=== PATIENT | female | born 1990 | race Caucasian/White ===

== ENCOUNTER 2018-07-24 17:39 | Emergency (ER) | payer MEDICAID, SELFPAY ==
[2018-07-24 17:40] VITALS: BP 114/89; PULSE 100; RESP 16; TEMP 36.6; O2SAT 100; BMI 30.7
--- NOTE | 2018-07-24 17:56 | ED.DCSUM_ITS ---
- ER Visit Summary Date of Service: 07/24/18 Chief Complaint: Abdominal pain History of Present Illness: The patient is a 28 F gradual onset of lower abdominal pain over the past 2-3 days. She describes it as sharp in nature. She states that she has taken 6 home test at home during that time and all were positive. She did have a tubal ligation last year. She reports her last menstrual cycle was early June. She does report nausea and vomiting with eating. She has had some mild diarrhea. She reports urinary frequency but no dysuria. She denies fever or chills. Physical Examination: Vital signs are unremarkable. Patient sitting upright in bed no acute distress. Head neck examination unremarkable. Heart is regular rate and rhythm. Lung sounds are clear. Abdomen is soft with mild lower abdominal tenderness, both right and left lower quadrants. There is no guarding or rebound. Active bowel sounds are noted Test Results: CBC and chemistry studies are normal. Urinalysis is normal. test is negative. Emergency Department Course and Treatment: Patient was given IV fluids, morphine, Zofran. On repeat evaluation she is resting comfortably. Test results were discussed with patient. I did review the surgery note and her fallopian tubes were removed and sent to pathology. I advised her that her home tests were false results. My suspicion is that she has viral gas troenteritis with lower abdominal pain, diarrhea, nausea with vomiting. She will be treated with Zofran and Bentyl. Treatment Plan: [] Disposition: Discharge Impression: Viral gastroenteritis This note was generated with [employer] dictation software. It may contain incorrect words, spelling, and punctuation that were not noted in review of the chart prior to signing ED Disposition - Plan for ED Patient: Chief Complaint: Abd Pain Referrals: Emerson Stapleton PA [PHYSICIAN SUPER[employer]OR [employer]] -
[2018-07-24 18:01] LABS: Mucous, Urine 0 SEEN /hpf (<or=2+); Red Blood Cells-Urine 0 SEEN /hpf (0-5)
[2018-07-24] MEDS: Morphine 4 MG/ML Syringe IV (18:09)
[2018-07-24] MEDS: Ondansetron 4 MG/2 ML Vial IV (18:09)
[2018-07-24] MEDS: 0.9% Normal Saline 1,000 ML 150 ML IV (18:09)
[2018-07-24 18:14] LABS: Color, Urine Yellow (Yellow); Glucose, Dipstick Normal (Normal); Ketone-Dipstick Negative (Negative); Leukocyte Esterase-Dipstick 100 /ul (Negative); Nitrite-Dipstick Negative (Negative); Occult Blood-Urine Negative /ul (Negative); Protein-Dipstick Negative (Negative); Urine Bilirubin Dipstick Negative (Negative); Urine Clarity Clear (Clear); Urine Urobilinogen Normal (Normal)
[2018-07-24 18:26] LABS: Bacteria 2+ /hpf (None Seen); Squamous Epithelial Cells - UA 10-25 SEEN /hpf (5-10); White Blood Cells 0-5 SEEN /hpf (0-5)
[2018-07-24 18:33] LABS: Anion Gap 6 (5-15); BUN 21 mg/dL (7-18); BUN/Creat Ratio 28.5 RATIO (10-20); Calcium,Total 8.3 mg/dL (8.5-10.1); Chloride 106 mmol/L (98-107); Creatinine, Serum 0.74 mg/dL (0.55-1.02); EST Glomerular Filtration Rate 100 mL/min (>60); Est Glom Filt Rate - Afr Amer 121 mL/min (>60); Estimated Creatinine Clearance 102.76 ml/min; Glucose 84 mg/dL (74-106); Potassium 3.8 mmol/L (3.5-5.1); Sodium Level 139 mmol/L (136-145)
[2018-07-24 18:49] LABS: Pregnancy, Serum, hCG Quali. NEGATIVE Negative (0-9 Nonpreg)
[2018-07-24 18:52] LABS: Absolute Lymphocyte Count 2.98 X10^3/ul (0.83-4.51); Absolute Neutrophil Count 5.5 X10^3/uL (2.0-7.7); Basophil# 0.04 X10^3/uL; Basophil% 0.4 % (0-1); Differential Indicated SCAN CRITERIA MET; Eosinophil# 0.28 X10^3/uL; Hematocrit 40.2 % (37-47); Hemoglobin 13.4 g/dl (12.0-15.0); Lymphocyte # 2.98 X10^3/ul (4.0); Lymphocyte % 31.5 % (19-41); Mean Corp Hgb Conc 33.3 g/gl (32-36); Mean Corpuscular Hgb 29.7 pg (27.0-32.0); Mean Corpuscular Volume 89.1 fL (81-99); Mean Platelet Vol. 9.3 fl (6.2-12.0); Monocyte% 6.3 % (0-10); Neutrophil # 5.45 X10^3/uL (2.7-7.7); Neutrophil % 57.5 % (47-70); POSITIVE COUNT NO; POSITIVE DIFFERENTIAL NO; POSITIVE MORPHOLOGY YES; Platelet Count 291 K/mm3 (150-450); RBC Distribution Width CV 14.2 % (11.6-14.6); RBC Distribution Width SD 46.4 fl (35.1-43.9); Red Blood Count 4.51 M/mm3 (4.2-5.4); White Blood Count 9.5 K/mm3 (4.4-11.0)
[2018-07-24 19:28] LABS: Differential Comment SCANNED
--- NOTE | 2018-07-24 20:02 | ED.DEP ---
ED Disposition - Plan for ED Patient: Disposition: Home or Assisted Living Chief Complaint: Abd Pain Instructions: ED Gastroenteritis Viral Prescriptions: Ondansetron [Zofran Odt] 4 mg PO Q8H PRN PRN #10 tablet PRN Reason: Nausea Dicyclomine HCl [Bentyl] 20 mg PO TIDAC PRN #20 capsule PRN Reason: Cramp Referrals: Kayley Bland DO [Primary Care Provider] - 1 Week
[2018-07-24 20:13] VITALS: BP 107/85; PULSE 74; RESP 15; O2SAT 95
--- NOTE | 2018-07-24 20:14 | ED.RN ---
PT GIVEN WRITTEN AND VERBAL DISCHARGE INSTRUCTIONS AND HOME GOING PRESCRIPTIONS. PT ASKS FOR PAIN MEDICATION AT HOME. PT EDUCATED ON [facility] HOME SCRIPT AND VERBALIZES UNDERSTANDING. IV D/C AND COVERED WITH 2X2 GAUZE AND PAPER TAPE. PT DRESSES SELF AND AMBULATES OUT OF DEPT WITH ASSISTANCE NEEDED FROM STAFF.
== END 2018-07-24 20:15 | disposition home or self-care (01) ==
PROVIDERS: Emergency Provider Emergency Medicine
DX: A08.4 Viral intestinal infection, unspecified (principal); Z72.0 Tobacco use
CPT/HCPCS: 80048; 81001; 84703; 85025; 96361; 96374; 96375; 99283; J7030; J2405

== ENCOUNTER 2018-08-07 22:42 | Emergency (ER) | payer MEDICAID, SELFPAY ==
[2018-08-07 22:43] VITALS: BP 109/64; PULSE 79; RESP 16; TEMP 36.1; O2SAT 97; BMI 31.6
--- NOTE | 2018-08-07 23:58 | ED.VIS.GEN ---
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 Location: chest. Current Severity: Moderate Maximum Severity: Moderate Worsened by: coughing Relieved by: rest Associated Symptoms: wheezing, ST. no fevers, neck stiffness, neuro sx, confusion. Narrative: No known sick contacts. No history of asthma that she knows of. Is a smoker. - Past Medical History (1) Depression Status: Chronic Past Medical History - Allergies and Home Meds Allergies/Adverse Reactions: Allergies Penicillins Allergy (Verified 08/07/18 22:45) Hives Sulfa (Sulfonamide Antibiotics) Allergy (Verified 08/07/18 22:45) Hives Primary Care Physician: Kayley Bland DO [Primary Care Provider] - Surgical History: tonsillectomy Smoking Status: Current every day smoker Review of Systems General: Denies: Chills, Fever Eyes: Denies: Visual changes - bilaterally, Diplopia ENT: Reports: Bilateral ear pain, Rhinorrhea, Sore throat Cardiovascular: Denies: Chest pain, Palpitations, Heart racing Respiratory: Reports: Dyspnea, Cough. Denies: Sputum Gastrointestinal: Reports: Nausea. Denies: Abdominal pain, Vomiting, Diarrhea Physical Exam Vital Signs/Narrative: Vital Signs Temp Pulse Resp BP Pulse Ox 08/07/18 22:43 96.9 F L 79 16 109/64 97 Inital Vital Signs reviewed: Yes General: Well nourished, Well developed Head: Normocephalic, Atraumatic Eyes: Perrl, EOMI ENT: Moist mucous membranes, No rhinorrhea, TM's clear, Nasal congestion, - - POP clear w/o erythema, asymmetry, exudate. Negative for: Sinus tenderness Neck: Supple, Nontender, No lymphadenopathy Cardiovascular: Regular rate, Regular rhythm, No murmurs Respiratory: No distress, Chest nontender, Wheezing - expiratory, mild Abdomen: Soft, Nontender, Nondistended, Normal bowel sounds Skin: Normal color, No rash Neurological: Alert, Oriented x3, Cranial nerves II-XII grossly intact, Normal Strength, Normal Sensation Psychological: Normal affect Diagnostic/Tx/Re-eval Clinical Impression(s) from Imaging Studies Chest X-Ray 08/08/18 00:00 IMPRESSION: Normal x-ray examination of the chest. Electronically Signed: Marylu Suh MD at 0:57 EDT , Service support , - Medical Decision Making Patient improved after doing nebulizer treatment. She is in no respiratory distress and her vital signs are normal. Chest x-ray is normal. No signs of pneumonia or reason/indication for antibiotics. Consistent with bronchitis, likely viral in etiology. Supportive care advised. Given prescriptions for cough medication, which was given here, in addition to albuterol inhaler. Advised to follow-up and to limit smoking. ED Disposition - Plan for ED Patient: Disposition: Home or Assisted Living Chief Complaint: Cough Diagnosis: Acute wheezy bronchitis Instructions: Acute Bronchitis Prescriptions: Albuterol Inhaler [Ventolin Hfa] 2 puff INHALATION Q4H PRN PRN #1 inhaler PRN Reason: Wheezing Benzonatate [Tessalon Perle] 200 mg PO TID PRN PRN #20 capsule PRN Reason: Cough Referrals: Kayley Bland DO [Primary Care Provider] - 1 Week if not improving
--- NOTE | 2018-08-08 | RAD_ITS ---
STUDY: X-RAY CHEST REASON FOR EXAM: Female, 28 years old. Cough TECHNIQUE: PA and lateral views of the chest. COMPARISON: None. FINDINGS: The lungs are clear and expanded. There is no demonstrated pleural abnormality. Normal size heart. Normal mediastinum and evi. Normal visualized pulmonary arteries. Normal visualized aortic arch and descending thoracic aorta. Normal visualized thoracic spine. Normal visualized ribs, clavicles, and shoulders. There is no demonstrated abnormality of the visualized soft tissue structures of the upper abdomen. RAD/Chest PA and Lateral IMPRESSION: Normal x-ray examination of the chest. Electronically Signed: Marylu Suh MD at 0:57 EDT , Service support ,
--- NOTE | 2018-08-08 00:01 | ED.DCSUM_ITS ---
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 Location: chest. Current Severity: Moderate Maximum Severity: Moderate Worsened by: coughing Relieved by: rest Associated Symptoms: wheezing, ST. no fevers, neck stiffness, neuro sx, confusion. Narrative: No known sick contacts. No history of asthma that she knows of. Is a smoker. - Past Medical History (1) Depression Status: Chronic Past Medical History - Allergies and Home Meds Allergies/Adverse Reactions: Allergies Penicillins Allergy (Verified 08/07/18 22:45) Hives Sulfa (Sulfonamide Antibiotics) Allergy (Verified 08/07/18 22:45) Hives Primary Care Physician: Kayley Bland DO [Primary Care Provider] - Surgical History: tonsillectomy Smoking Status: Current every day smoker Review of Systems General: Denies: Chills, Fever Eyes: Denies: Visual changes - bilaterally, Diplopia ENT: Reports: Bilateral ear pain, Rhinorrhea, Sore throat Cardiovascular: Denies: Chest pain, Palpitations, Heart racing Respiratory: Reports: Dyspnea, Cough. Denies: Sputum Gastrointestinal: Reports: Nausea. Denies: Abdominal pain, Vomiting, Diarrhea Physical Exam Vital Signs/Narrative: Vital Signs Temp Pulse Resp BP Pulse Ox 08/07/18 22:43 96.9 F L 79 16 109/64 97 Inital Vital Signs reviewed: Yes General: Well nourished, Well developed Head: Normocephalic, Atraumatic Eyes: Perrl, EOMI ENT: Moist mucous membranes, No rhinorrhea, TM's clear, Nasal congestion, - - POP clear w/o erythema, asymmetry, exudate. Negative for: Sinus tenderness Neck: Supple, Nontender, No lymphadenopathy Cardiovascular: Regular rate, Regular rhythm, No murmurs Respiratory: No distress, Chest nontender, Wheezing - expiratory, mild Abdomen: Soft, Nontender, Nondistended, Normal bowel sounds Skin: Normal color, No rash Neurological: Alert, Oriented x3, Cranial nerves II-XII grossly intact, Normal Strength, Normal Sensation Psychological: Normal affect Diagnostic/Tx/Re-eval Clinical Impression(s) from Imaging Studies Chest X-Ray 08/08/18 00:00 IMPRESSION: Normal x-ray examination of the chest. Electronically Signed: Marylu Suh MD at 0:57 EDT , Service support , - Medical Decision Making Patient improved after doing nebulizer treatment. She is in no respiratory distress and her vital signs are normal. Chest x-ray is normal. No signs of pneumonia or reason/indication for antibiotics. Consistent with bronchitis, likely viral in etiology. Supportive care advised. Given prescriptions for cough medication, which was given here, in addition to albuterol inhaler. Advised to follow-up and to limit smoking. ED Disposition - Plan for ED Patient: Disposition: Home or Assisted Living Chief Complaint: Cough Diagnosis: Acute wheezy bronchitis Instructions: Acute Bronchitis Prescriptions: Albuterol Inhaler [Ventolin Hfa] 2 puff INHALATION Q4H PRN PRN #1 inhaler PRN Reason: Wheezing Benzonatate [Tessalon Perle] 200 mg PO TID PRN PRN #20 capsule PRN Reason: Cough Referrals: Kayley Bland DO [Primary Care Provider] - 1 Week if not improving
[2018-08-08] MEDS: Naproxen 250 MG Tablet 500 MG PO (00:06)
[2018-08-08] MEDS: guaiFENesin 10 ML UDC (200MG/10ML) PO (00:07)
[2018-08-08] MEDS: Ondansetron ODT 4 MG Tablet 8 MG PO (00:07)
[2018-08-08] MEDS: Ipratropium/Albuterol Sulfate 3 ML AMPUL.NEB INHALATION (00:08)
[2018-08-08 00:10] VITALS: PULSE 85; RESP 16; O2SAT 99
[2018-08-08 01:52] VITALS: BP 103/46; PULSE 72; RESP 16; O2SAT 96
--- NOTE | 2018-08-08 13:52 | CM.ED ---
ED CALLBACK: Follow-up call placed to patient with no answer. Voicemail left with return contact information.
== END 2018-08-08 01:53 | disposition home or self-care (01) ==
PROVIDERS: Emergency Provider Emergency Medicine
DX: J20.9 Acute bronchitis, unspecified (principal); F17.200 Nicotine dependence, unspecified, uncomplicated
CPT/HCPCS: 71046; 94640; 99283

== ENCOUNTER 2018-10-18 13:35 | Emergency (ER) | payer MEDICAID, SELFPAY ==
[2018-10-18 13:37] VITALS: BP 84/60; PULSE 137; RESP 18; TEMP 37.2; O2SAT 98; BMI 29.5
[2018-10-18] MEDS: Dicyclomine 20 MG/2 ML Vial IM (14:39)
[2018-10-18] MEDS: Ondansetron 4 MG/2 ML Vial IV ×2 (14:39→15:59)
[2018-10-18 14:42] LABS: Absolute Lymphocyte Count 0.49 X10^3/ul (0.83-4.51); Absolute Neutrophil Count 8.5 X10^3/uL (2.0-7.7); Differential Indicated SCAN CRITERIA MET; Eosinophil# 0.04 X10^3/uL; Eosinophils% 0.4 % (0-5); Hematocrit 44.2 % (37-47); Hemoglobin 14.6 g/dl (12.0-15.0); Lymphocyte # 0.49 X10^3/ul (4.0); Lymphocyte % 5.1 % (19-41); Mean Corpuscular Hgb 29.6 pg (27.0-32.0); Mean Corpuscular Volume 89.5 fL (81-99); Monocyte# 0.46 X10^3/uL; Monocyte% 4.8 % (0-10); Neutrophil # 8.53 X10^3/uL (2.7-7.7); Neutrophil % 89.6 % (47-70); POSITIVE COUNT NO; POSITIVE DIFFERENTIAL NO; POSITIVE MORPHOLOGY YES; Platelet Count 251 K/mm3 (150-450); RBC Distribution Width CV 14.4 % (11.6-14.6); RBC Distribution Width SD 46.9 fl (35.1-43.9); Red Blood Count 4.94 M/mm3 (4.2-5.4); White Blood Count 9.5 K/mm3 (4.4-11.0)
[2018-10-18 14:54] LABS: AST(SGOT) 13 U/L (15-37); Alanine Aminotransfer ALT/SGPT 23 U/L (13-56); Albumin, Serum 3.5 g/dL (3.2-5.0); Alkaline Phosphatase 100 U/L (45-117); Anion Gap 6 (5-15); BUN 15 mg/dL (7-18); BUN/Creat Ratio 20.4 RATIO (10-20); Calcium,Total 8.3 mg/dL (8.5-10.1); Chloride 107 mmol/L (98-107); Creatinine, Serum 0.73 mg/dL (0.55-1.02); EST Glomerular Filtration Rate 101 mL/min (>60); Est Glom Filt Rate - Afr Amer 122 mL/min (>60); Estimated Creatinine Clearance 104.16 ml/min; Globulin 3.4 g/dL (2.2-4.2); Glucose 87 mg/dL (74-106); Protein, Total 6.9 g/dL (6.4-8.2); Sodium Level 140 mmol/L (136-145)
[2018-10-18 14:54] LABS: Bacteria 0 SEEN /hpf (None Seen); Mucous, Urine 0 SEEN /hpf (<or=2+); Red Blood Cells-Urine 0 SEEN /hpf (0-5); White Blood Cells 0 SEEN /hpf (0-5)
[2018-10-18 14:57] LABS: Differential Comment SCANNED
[2018-10-18 15:15] LABS: Color, Urine Yellow (Yellow); Glucose, Dipstick Normal (Normal); Ketone-Dipstick Negative (Negative); Leukocyte Esterase-Dipstick 25 /ul (Negative); Nitrite-Dipstick Negative (Negative); Occult Blood-Urine Negative /ul (Negative); Protein-Dipstick 15 mg/dl (Negative); Urine Bilirubin Dipstick Negative (Negative); Urine Clarity Clear (Clear); Urine Urobilinogen 1 mg/dl (Normal)
[2018-10-18 15:32] LABS: Squamous Epithelial Cells - UA 0-5 SEEN /hpf (5-10)
--- NOTE | 2018-10-18 15:34 | CT_ITS ---
STUDY: CT ABDOMEN AND PELVIS WITHOUT CONTRAST REASON FOR EXAM: Female, 28 years old. RADIATION DOSAGE (If Supplied By Facility): CTDIvol = ( 9.02 ) mGy, DLP = ( 498.18 ) mGycm TECHNIQUE: Transaxial images were obtained from the dome of the diaphragm to the symphysis pubis without oral contrast, and without intravenous contrast. Sagittal and coronal images were reconstructed. Individualized dose optimization techniques were used for this CT. COMPARISON: None. FINDINGS: The visualized lung bases are unremarkable. The visualized portions of the heart are within normal limits. Normal liver. Normal gallbladder and extrahepatic biliary system. Normal spleen. Normal pancreas. Normal bilateral adrenal glands. Normal right kidney measures 10.3 cm in its craniocaudad diameter with a faint 0.8 x 0.4 cm calculus within the inferior calyx.. Normal left kidney measures 10.6 cm in its craniocaudad dimension. No evidence of calculus seen on the left side. No hydronephrosis noted. In the pelvis there are multiple calcifications, the one on the right side although it could represent ureteral calculus but this was present in the study of 16 November 2017. Please correlate clinically and with urine analysis Normal visualized stomach. Normal small intestine. Normal colon. The appendix is visualized and appears normal. Normal abdominal aorta. Normal inferior vena cava. Normal retroperitoneum. Normal urinary bladder. Normal abdominal wall. Normal osseous structures. CT/Abdomen/Pelvis without Cont IMPRESSION: Negative study except for tiny calcification right side of the pelvic cavity that was seen in October 2017 0.8 still could represent tiny ureteral calculus please see the discussion above. Small right renal calculus within the inferior calyx Electronically Signed: Kimmie Valencia, at 16:24 EST Tel , Service support ,
[2018-10-18 15:36] LABS: Pregnancy, Serum, hCG Quali. NEGATIVE Negative (0-9 Nonpreg)
[2018-10-18] MEDS: Morphine 4 MG/ML Syringe IV (15:59)
[2018-10-18 16:02] VITALS: BP 115/74; PULSE 90; RESP 16; O2SAT 98
--- NOTE | 2018-10-18 16:04 | ED.DCSUM_ITS ---
- ER Visit Summary Date of Service: 10/18/18 Chief Complaint: [Abdominal pain History of Present Illness: The patient is a 28 F [presents to the emergency department with complaint of abdominal pain started around midnight. Patient had 3 episodes of vomiting with some blood in it. Patient also had about 8 watery stools. Patient complains of pain to the right side of the abdomen. Patient does not think she is .] She denies urinary symptoms. Patient denies any fever although subjectively she states she thinks she may have had one. Physical Examination: [HEENT-PERRLA, EOMI. Cranial nerves II through XII grossly intact. TMs clear. Mucous membranes moist. No adenopathy. Cardiovascular-regular rate and rhythm without murmur or ectopy Lungs-clear to auscultation, chest wall stable without crepitus or subcu emphysema Abdomen-normoactive bowel sounds, soft. Patient has diffuse tenderness palpation but does seem to localize to the right lower quadrant with some guarding. There is no rebound, rigidity, or perineal signs. Extremities-intact ?4, normal range of motion, normal pulses, atraumatic] Test Results: [CBC with differential obtained showed a white blood cell count of 9.5, hemoglobin 14.6, hematocrit 44, placed 251. Chemistries unremarkable. Urinalysis was normal. HCG was negative.] Emergency Department Course and Treatment: [Patient initially was given a liter normal same fluid bolus as well as Zofran and Bentyl. Patient continued to complain of pain and was given 4 mg of morphine and 4 mill grams of Zofran. Patient had a CT scan of the abdomen pelvis ordered without contrast this patient states that she is allergic to contrast.] Treatment Plan: [Care of patient turned over to evening physician awaiting official CT results] Disposition: [Pending] Impression: [Abdominal pain Gastroenteritis] This note was generated with [employer] dictation software. It may contain incorrect words, spelling, and punctuation that were not noted in review of the chart prior to signing ED Disposition - Plan for ED Patient: Chief Complaint: Abd Pain Referrals: Kayley Bland DO [Primary Care Provider] -
--- NOTE | 2018-10-18 16:05 | ED.DEP ---
ED Disposition - Plan for ED Patient: Chief Complaint: Abd Pain Instructions: ED Abdominal Pain Unkn Cause, ED Gastroenteritis Viral Prescriptions: Ondansetron [Zofran Odt] 4 mg PO Q8H PRN PRN #10 tab PRN Reason: Nausea Dicyclomine HCl [Bentyl] 20 mg PO TIDAC #20 cap Referrals: Kayley Bland DO [Primary Care Provider] - 3-5 Days
[2018-10-18 16:32] VITALS: BP 104/61; PULSE 93; RESP 16; O2SAT 98
[2018-10-18 16:34] VITALS: BP 104/61; PULSE 93; RESP 16; O2SAT 100
== END 2018-10-18 16:35 | disposition home or self-care (01) ==
PROVIDERS: Emergency Provider Emergency Medicine
DX: A08.4 Viral intestinal infection, unspecified (principal); N20.0 Calculus of kidney; Z72.0 Tobacco use
CPT/HCPCS: 74176; 80053; 81001; 84703; 85025; 96361; 96372; 96374; 96375; 96376; 99283; J7030; J2405

== ENCOUNTER 2019-03-13 20:38 | Emergency (ER) | payer SELFPAY ==
[2019-03-13 20:39] VITALS: BP 110/65; PULSE 115; RESP 18; TEMP 36.5; O2SAT 96; BMI 28.3
--- NOTE | 2019-03-13 21:10 | RAD_ITS ---
STUDY: X-RAY - LEFT FOOT CLINICAL: Female, 29 years old. Pain TECHNIQUE: 3 view(s) of the foot. COMPARISON: None. FINDINGS: There is no evidence of fracture or dislocation. There are no significant degenerative changes. There are no radiodense foreign bodies. RAD/Foot min 3 Views IMPRESSION: No fracture or dislocation. Electronically Signed: Dorian George, at 21:36 EDT Tel , Service support ,
--- NOTE | 2019-03-13 21:52 | ED.VISSUMM ---
- ER Visit Summary Date of Service: 03/13/19 Chief Complaint: Left foot pain after accidentally kicking a couch History of Present Illness: The patient is a 29 F history of back pain and depression. Was running around the house and actually kicked her couch about 5 hours ago. Complaining of pain to the fifth or small toe metatarsal. No prior history of a foot fracture or surgery to her foot. No other injuries. Physical Examination: Vital signs stable afebrile. HEENT exam unremarkable atraumatic. Neck nontender. Lungs clear to auscultation. Heart regular rhythm no murmur. Chest nontender. Abdomen soft nontender. Remedies moves all 4. Neurovascular intact. Left hip, knee and ankle are nontender normal range of motion no deformity. No swelling. Left foot pain on palpation to the left fifth or small toe metatarsal just proximal to the MTP joint. No gross bony deformity. Skin intact. No bruising. Foot is neurovascular intact. Other extremities unremarkable. Neurologic exam normal. Test Results: Left foot x-ray 3 views read by myself and the radiologist shows no fracture or dislocation. Emergency Department Course and Treatment: Repeat exam doing well at 2153. Treatment Plan: Ice the foot. Elevate. Motrin for pain. Follow-up if not improving. Disposition: Discharge Impression: Left foot contusion This note was generated with [employer] dictation software. It may contain incorrect words, spelling, and punctuation that were not noted in review of the chart prior to signing ED Disposition - Plan for ED Patient: Referrals: Kayley Bland DO [Primary Care Provider] -
--- NOTE | 2019-03-13 21:54 | ED.DEP ---
ED Disposition - Plan for ED Patient: Disposition: Home or Assisted Living Instructions: ED Contusion Lower Ext Referrals: Kayley Bland DO [Primary Care Provider] - 1 Week if not improving Additional Instructions: Ice and elevate left foot. Motrin for pain and swelling. Follow-up with not improving after 1 week. The x-rays today showed no broken bones or any dislocations.
[2019-03-13] MEDS: Ibuprofen 600 MG Tablet PO (21:59)
== END 2019-03-13 22:00 | disposition home or self-care (01) ==
PROVIDERS: Emergency Provider Emergency Medicine
DX: S90.32XA Contusion of left foot, initial encounter (principal); W22.09XA Striking against other stationary object, initial encounter; Y93.02 Activity, running; Y92.009 Unspecified place in unspecified non-institutional (private) residence as the place of occurrence of the external cause; Z72.0 Tobacco use
CPT/HCPCS: 73630; 99283

== ENCOUNTER 2019-07-12 20:39 | Emergency (ER) | payer SELFPAY ==
[2019-07-12 20:40] VITALS: BP 116/85; PULSE 97; RESP 16; TEMP 36.1; O2SAT 99; BMI 27.4
--- NOTE | 2019-07-12 20:47 | ED.DCSUM_ITS ---
- ER Visit Summary Date of Service: 07/12/19 Chief Complaint: Back pain History of Present Illness: The patient is a 29 F who sees Kayley Bland. She reports that she fell in the morning 5 days ago. She did not think she injured anything. However, as the day wore on she developed lower back and thoracic pain. She describes as sharp pains 10 to 10 hours now 10 currently. Is worsened by movement. She states it is relieved by remaining still. She is taking Tylenol and Advil with minimal relief. Radiates to the anterior surface of her right leg. She denies any numbness or weakness. No problems with her bowels or bladder. No groin numbness. Patient reports that yesterday she had a headache that began. It has gradually gotten worse. Is sharp pain is 10 out of 10 severity. She denies any blow to the head or loss of consciousness during this injury 5 days ago. She is not on blood thinners. Nothing makes the headache better or worse. She is been nauseated, but has not vomited. She denies any fever or chills. Physical Examination: Vitals: Stable. Afebrile. General: A&O x 3. NAD. Cardiovascular exam: Regular rate and rhythm, no murmur, rub or gallop. Respiratory exam: Clear to auscultation bilaterally. No wheezes or stridor. Abdominal exam: Soft, nontender, nondistended, normal bowel sounds. No peritoneal signs. Back: Diffuse moderate tenderness to palpation over the lumbar spine and the paraspinous musculature in the thoracic and lumbar region. No point tenderness. Negative straight leg bilaterally. 5/5 DF, PF, EHL bilaterally. Normal sensation to light touch throughout. Extremity: No clubbing, cyanosis, or edema. Test Results: Clinical Impression(s) from Imaging Studies Lumbar Spine X-Ray 07/12/19 20:57 IMPRESSION: No acute osseous injury is evident. Comment: If there is further clinical concern for a radiographically occult spinal fracture, consider CT correlation if possible. Electronically Signed: Gary Ley MD at 21:49 EDT Tel , Service support , Thoracic Spine X-Ray 07/12/19 20:57 IMPRESSION: Normal x-ray examination of the thoracic spine. Electronically Signed: Gary Ley MD at 21:47 EDT Tel , Service support , Emergency Department Course and Treatment: Patient had an IV placed. She was given Toradol, Reglan, and Benadryl IV. She is resting more comfortably. Treatment Plan: Patient will be discharged with naproxen. She is instructed on symptomatic management. Use Tylenol for pain as well. Use moist heat and a TENS unit. Follow-up with her primary care physician 1 week if not improving. Return to the emergency department for any worsening symptoms. Disposition: To home in improved and stable condition. Impression: 1. Back pain, acute. 2. Cephalgia. This note was generated with [employer] dictation software. It may contain incorrect words, spelling, and punctuation that were not noted in review of the chart prior to signing ED Disposition - Plan for ED Patient: Disposition: Home or Assisted Living Instructions: BACK AND NECK PAIN, General Prescriptions: Naproxen [Naprosyn] 500 mg PO BID #14 tab Prescription Printed Referrals: Kayley Bland DO [Primary Care Provider] - 1 Week if not improving
--- NOTE | 2019-07-12 20:57 | RAD_ITS ---
STUDY: X-RAY - THORACIC SPINE REASON FOR EXAM: Female, 29 years old. Mid back pain TECHNIQUE: 3 view(s) of the thoracic spine were obtained. COMPARISON: None. FINDINGS: Normal kyphosis of the thoracic spine. There is no substantial scoliosis. Normal thoracic vertebrae and endplates. Normal disc space heights. The soft tissue structures are unremarkable. RAD/Thoracic Spine 3 Views IMPRESSION: Normal x-ray examination of the thoracic spine. Electronically Signed: Gary Ley MD at 21:47 EDT Tel , Service support ,
--- NOTE | 2019-07-12 20:57 | RAD_ITS ---
STUDY: X-RAY - LUMBAR SPINE REASON FOR EXAM: Female, 29 years old. Pain and fall on Wednesday TECHNIQUE: 3 view(s) of the lumbar spine were obtained. COMPARISON: None FINDINGS: Normal lumbar lordosis. There is no substantial scoliosis. There is a normal alignment of the vertebrae. Normal vertebral bodies and endplates. Normal disc space heights. The soft tissue structures are unremarkable. RAD/Lumbar Spine 2 or 3 Views IMPRESSION: No acute osseous injury is evident. Comment: If there is further clinical concern for a radiographically occult spinal fracture, consider CT correlation if possible. Electronically Signed: Gary Ley MD at 21:49 EDT Tel , Service support ,
[2019-07-12] MEDS: DiphenhydrAMINE 50 MG/ML Syringe IV (21:08)
[2019-07-12] MEDS: Metoclopramide 10 MG/2 ML Vial IV (21:08)
[2019-07-12] MEDS: Ketorolac 30 MG/ML Syringe IV (21:09)
[2019-07-12] MEDS: 0.9% Normal Saline 1,000 ML 999 ML IV (21:09)
[2019-07-12 22:27] VITALS: BP 112/69; PULSE 68; RESP 16; O2SAT 99
== END 2019-07-12 22:30 | disposition home or self-care (01) ==
LOC: ED 21:56
PROVIDERS: Emergency Provider Emergency Medicine
DX: M54.9 Dorsalgia, unspecified (principal); M54.5 Low back pain; R51 Headache; R11.0 Nausea; R05 Cough; W19.XXXA Unspecified fall, initial encounter; Y93.9 Activity, unspecified; Y92.9 Unspecified place or not applicable; F17.200 Nicotine dependence, unspecified, uncomplicated
CPT/HCPCS: 72072; 72100; 96361; 96374; 96375; 99283; J7030

== ENCOUNTER 2019-10-09 21:28 | Emergency (ER) | payer SELFPAY ==
[2019-10-09 21:29] VITALS: BP 129/67; PULSE 92; RESP 16; TEMP 36.3; O2SAT 99; BMI 27.9
--- NOTE | 2019-10-09 22:01 | RAD_ITS ---
STUDY: X-RAY - RIGHT SHOULDER REASON FOR EXAM: Female, 29 years old. Right shoulder pain TECHNIQUE: 3 view(s) of the shoulder. COMPARISON: None. FINDINGS: Normal glenohumeral articulation. Normal acromioclavicular joint. Normal acromion. Normal humeral head and visualized proximal humerus. The soft tissue structures are unremarkable. Normal visualized pulmonary apex. RAD/Shoulder min 2 Views IMPRESSION: Normal x-ray examination of the shoulder. Electronically Signed: Indra Garnica MD ([place]) at 22:15 EST , Service support ,
--- NOTE | 2019-10-09 22:28 | ED.DCSUM_ITS ---
- ER Visit Summary Date of Service: 10/09/19 Chief Complaint: Right shoulder pain History of Present Illness: The patient is a 29 F who sees Kayley Bland. She reports she has right shoulder pain that began 2 days ago. Is a dull, aching pain is 7 on 10 currently 10 out of 10 at worst. Is worsened by movement and relieved by rest. She is right-hand dominant. She denies any trauma. No fall, MVA, or change in activity. Reports that she has paresthesias throughout her entire right arm. She denies any other paresthesias. A review of systems is negative. Physical Examination: Vitals: Stable. Afebrile. General: Well-nourished and well-developed. Head: Normocephalic atraumatic. Neck: Supple, no lymphadenopathy. No JVD. Nontender. Cardiovascular: Regular rate and rhythm. No murmurs. Respiratory: No respiratory distress. Clear to auscultation bilaterally. Abdominal: Soft, nontender, nondistended, normal bowel sounds. No guarding, rebound, or peritoneal signs. Back: Nontender. Extremities: Mild tenderness palpation over her right deltoid. There is no overlying erythema or warmth to suggest a septic joint. She has good range of motion with mild pain. She has 5 out of 5 maintenance representative bilaterally. She has normal median, ulnar, and radial nerve function and motor distributions. She has decreased in station to light touch throughout her entire right arm. She has 2+ radial pulse bilaterally. She has 2+ biceps and triceps reflexes.. Skin: Normal color, no rash. Neurologic: Alert and oriented ?3. Cranial nerves II through XII are intact. Normal strength and sensation. Psych: Normal affect. Test Results: Clinical Impression(s) from Imaging Studies Shoulder X-Ray 10/09/19 22:01 IMPRESSION: Normal x-ray examination of the shoulder. Electronically Signed: Indra Garnica MD (Brooks) at 22:15 EST , Service support , Emergency Department Course and Treatment: Patient was treated with naproxen. She refused a sling. Treatment Plan: Had a prolonged discussion the patient that her paresthesias may be due to pressure on her brachial plexus. She is instructed to follow-up with her primary care physician in 3 to 5 days if not improving. She will be placed on naproxen at home. Return to the emergency department for any worsening symptoms. Disposition: To home in improved and stable condition. Impression: 1. Right shoulder pain, uncertain cause. This note was generated with [employer] dictation software. It may contain incorrect words, spelling, and punctuation that were not noted in review of the chart prior to signing ED Disposition - Plan for ED Patient: Disposition: Home or Assisted Living Instructions: SHOULDER PAIN (Uncertain Cause) Prescriptions: Naproxen [Naprosyn] 500 mg PO BID #14 tab Prescription Printed Referrals: Kayley Bland DO [Primary Care Provider] - 3-5 Days if not improving
[2019-10-09] MEDS: Naproxen 500 MG Tablet PO (22:30)
[2019-10-09 22:48] VITALS: RESP 16
== END 2019-10-09 22:48 | disposition home or self-care (01) ==
LOC: ED 21:58
PROVIDERS: Emergency Provider Emergency Medicine
DX: M25.551 Pain in right hip (principal)
CPT/HCPCS: 73030; 99283

== ENCOUNTER 2019-10-31 22:26 | Emergency (ER) | payer SELFPAY ==
[2019-10-31 22:27] VITALS: PULSE 83; RESP 20; TEMP 36.5; O2SAT 99; BMI 29.0
[2019-10-31 22:32] VITALS: BP 122/96
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
[2019-10-31 23:30] VITALS: RESP 16
[2019-11-01 00:22] VITALS: BP 146/82; PULSE 82; RESP 16; O2SAT 98
== END 2019-11-01 00:34 | disposition home or self-care (01) ==
PROVIDERS: Emergency Provider Emergency Medicine
DX: F10.229 Alcohol dependence with intoxication, unspecified (principal); T51.0X1A Toxic effect of ethanol, accidental (unintentional), initial encounter; R41.82 Altered mental status, unspecified; Y90.7 Blood alcohol level of 200-239 mg/100 ml; F17.200 Nicotine dependence, unspecified, uncomplicated; E66.9 Obesity, unspecified; Z68.29 Body mass index [BMI] 29.0-29.9, adult; F10.239 Alcohol dependence with withdrawal, unspecified
CPT/HCPCS: 80320; 99285; A4216; G0480

== ENCOUNTER 2021-03-17 16:12 | Emergency (ER) | payer SELFPAY ==
[2021-03-17 16:15] VITALS: BP 130/66; PULSE 102; RESP 17; TEMP 36.9; O2SAT 100; BMI 35.6
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
[2021-03-17 16:32] LABS: Absolute Lymphocyte Count 1.73 X10^3/uL (0.83-4.51); Absolute Neutrophil Count 4.4 X10^3/uL (2.0-7.7); Basophil# 0.07 X10^3/uL; Eosinophil# 0.29 X10^3/uL; Hematocrit 45.1 % (37-47); Lymphocyte # 1.73 X10^3/ul (0.83-4.51); Lymphocyte % 24.1 % (19-41); Mean Corp Hgb Conc 33.3 g/dL (32-36); Mean Corpuscular Hgb 30.2 pg (27.0-32.0); Mean Corpuscular Volume 90.9 fL (81-99); Monocyte# 0.66 X10^3/uL; Monocyte% 9.2 % (0-10); NRBC Flagged by Analyzer 0 % (0-5); Neutrophil # 4.39 X10^3/uL (2.7-7.7); Neutrophil % 61.3 % (47-70); Platelet Count 299 K/mm3 (150-450); RBC Distribution Width CV 13.4 % (11.6-14.6); RBC Distribution Width SD 43.9 fl (35.1-43.9); Red Blood Count 4.96 M/mm3 (4.2-5.4); White Blood Count 7.2 K/mm3 (4.4-11.0)
[2021-03-17 16:46] LABS: Anion Gap 4 (5-15); BUN 15 mg/dL (7-18); BUN/Creat Ratio 17.6 RATIO (10-20); Calcium,Total 9.5 mg/dL (8.5-10.1); Chloride 107 mmol/L (98-107); Creatinine, Serum 0.85 mg/dL (0.55-1.02); EST Glomerular Filtration Rate 83 mL/min (>60); Est Glom Filt Rate - Afr Amer 101 mL/min (>60); Estimated Creatinine Clearance 87.08 ml/min; Glucose 78 mg/dL (74-106); Potassium 4.2 mmol/L (3.5-5.1); Sodium Level 140 mmol/L (136-145)
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
[2021-03-17 17:08] LABS: Internal QC Validated? YES +Cl - CLEAR BKGD; Pregnancy, Serum, hCG Quali. NEGATIVE Negative
[2021-03-17 17:09] LABS: Record Kit Lot#, Serum Preg. 42100
[2021-03-17 17:25] LABS: Mucous, Urine 0 SEEN /hpf (<or=2+); Red Blood Cells-Urine 0 SEEN /hpf (0-5)
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
[2021-03-17 17:36] LABS: Color, Urine Yellow (Yellow); Glucose, Dipstick Normal (Normal); Ketone-Dipstick Negative (Negative); Leukocyte Esterase-Dipstick Negative /ul (Negative); Nitrite-Dipstick Negative (Negative); Occult Blood-Urine Negative /ul (Negative); Protein-Dipstick Negative (Negative); Specific Gravity, Urine 1.025 (1.002-1.030); Urine Bilirubin Dipstick Negative (Negative); Urine Clarity Clear (Clear); Urine Urobilinogen Normal (Normal)
[2021-03-17 18:04] LABS: Bacteria 1+ /hpf (None Seen); Squamous Epithelial Cells - UA 0-5 SEEN /hpf (5-10); White Blood Cells 0-5 SEEN /hpf (0-5)
[2021-03-17 18:10] VITALS: BP 107/71; PULSE 89; RESP 20; O2SAT 98
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
== END 2021-03-17 18:12 | disposition home or self-care (01) ==
PROVIDERS: Emergency Provider Emergency Medicine
DX: O9A.212 Injury, poisoning and certain other consequences of external causes complicating pregnancy, second trimester (principal); S20.211A Contusion of right front wall of thorax, initial encounter; O99.332 Smoking (tobacco) complicating pregnancy, second trimester; O99.212 Obesity complicating pregnancy, second trimester; E66.9 Obesity, unspecified; F17.200 Nicotine dependence, unspecified, uncomplicated; V53.6XXA Passenger in pick-up truck or van injured in collision with car, pick-up truck or van in traffic accident, initial encounter; Z3A.26 26 weeks gestation of pregnancy
CPT/HCPCS: 71046; 80048; 81001; 84703; 85025; 93005; 99285; A4216

== ENCOUNTER 2022-03-03 17:05 | Emergency (ER) | payer MEDICAID, SELFPAY ==
[2022-03-03 17:06] VITALS: BP 113/75; PULSE 108; RESP 16; TEMP 36; O2SAT 97; BMI 32.4
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
== END 2022-03-03 17:49 | disposition home or self-care (01) ==
PROVIDERS: Emergency Provider Emergency Medicine; Visit Provider Emergency Medicine
DX: S80.812A Abrasion, left lower leg, initial encounter (principal); F17.210 Nicotine dependence, cigarettes, uncomplicated; Z79.899 Other long term (current) drug therapy; X58.XXXA Exposure to other specified factors, initial encounter
CPT/HCPCS: 73590; 99282

== ENCOUNTER → 2022-03-19 | Outpatient (CLI) | payer MEDICAID, SELFPAY ==
[2022-03-19 10:00] LABS: Lyme Ab Screen Interpretation REF LAB
[2022-03-19 11:20] LABS: Absolute Lymphocyte Count 1.52 X10^3/uL (0.83-4.51); Absolute Neutrophil Count 6.7 X10^3/uL (2.0-7.7); Basophil# 0.05 X10^3/uL; Basophil% 0.6 % (0-1); Eosinophil# 0.07 X10^3/uL; Eosinophils% 0.8 % (0-5); Hematocrit 41.6 % (37-47); Hemoglobin 13.7 g/dL (12.0-15.0); Lymphocyte # 1.52 X10^3/ul (0.83-4.51); Mean Corp Hgb Conc 32.9 g/dL (32-36); Mean Corpuscular Hgb 29.8 pg (27.0-32.0); Mean Corpuscular Volume 90.6 fL (81-99); Mean Platelet Vol. 9.3 fl (6.2-12.0); Monocyte# 0.63 X10^3/uL; NRBC Flagged by Analyzer 0 % (0-5); Neutrophil # 6.66 X10^3/uL (2.7-7.7); Neutrophil % 74.3 % (47-70); Platelet Count 318 K/mm3 (150-450); RBC Distribution Width CV 13.3 % (11.6-14.6); RBC Distribution Width SD 44.1 fl (35.1-43.9); Red Blood Count 4.59 M/mm3 (4.2-5.4)
[2022-03-19 11:26] LABS: Erythrocyte Sedimentation Rate 5 mm/hr (0-30)
[2022-03-19 12:14] LABS: CRP < 2.90 mg/L (0.0-3.0); Cholesterol 156 mg/dL (200); Free T3 3.8 pg/mL (2.18-3.98); High Density Lipoprotein 46 mg/dL; LDH 158 U/L (84-246); T4 Free Direct 1.15 ng/dL (0.76-1.46); Thyroid Stim Hormone (TSH) 1.38 uIU/mL (0.358-3.74); Triglycerides 58 mg/dL
[2022-03-19 12:16] LABS: Hemoglobin A1c 4.8 % (3.8-5.6)
[2022-03-19 14:48] LABS: Vitamin B12 283 pg/mL (211-911); Vitamin D,25 Hydroxy 23.7 ng/mL
[2022-03-20 17:07] LABS: Endomysial Antibody IgA Negative (Negative)
[2022-03-20 20:44] LABS: Immunoglobulin A 200 mg/dL (87-352); t-Transglutaminase IgA <2 U/mL (0-3)
[2022-03-23 16:52] LABS: Vitamin D 1,25-Dihydroxy 53.3 pg/mL (19.9-79.3)
[2022-03-26 11:09] LABS: Albumin 3.6 g/dL (2.9-4.4); Alpha-1-Globulins 0.3 g/dL (0.0-0.4); Alpha-2-Globulins 0.7 g/dL (0.4-1.0); Angiotensin Convert Enzyme 34 U/L (14-82); Cytoplasmic Ab (C-ANCA) <1:20 titer (Neg:<1:20); HEPATITIS B SURFACE AG Negative (Negative); Hep C Antibodies 0.1 s/co ratio (0.0-0.9); Hepatitis A IgM Antibody Negative (Negative); Hepatitis B Core AB IgM Negative (Negative); Immunoglobulin A 185 mg/dL (87-352); Immunoglobulin G 930 mg/dL (586-1602); Immunoglobulin M 144 mg/dL (26-217); LDL, Direct 120295 97 mg/dL (0-99); PROEL- TOTAL PROTEIN 6.5 g/dL (6.0-8.5)
[2022-03-27 08:07] LABS: Immunoglobulin E 31 IU/mL (6-495); Lyme Scn Total Ab w/Rflx Negative (Negative); Perinuclear Ab (P-ANCA) <1:20 titer (Neg:<1:20)
== END | disposition home or self-care (01) ==
LOC: LAB 09:54
PROVIDERS: Referring Provider Internal Medicine Gastroenterology; Visit Provider Internal Medicine Gastroenterology
DX: R10.9 Unspecified abdominal pain (principal)
CPT/HCPCS: 36415; 80074; 82164; 82306; 82465; 82607; 82652; 82784; 82785; 83036; 83516; 83615; 83718; 83721; 84165; 84439; 84443; 84478; 84481; 85025; 85652; 86140; 86255; 86256; 86334; 86618

== ENCOUNTER → 2022-04-06 | Outpatient (CLI) | payer MEDICAID, SELFPAY ==
--- NOTE | 2022-04-06 11:26 | MRI_ITS ---
STUDY: MR MRCP WITHOUT CONTRAST REASON FOR EXAM: Female, 32 years old. abdominal pain and pancreatitis, prior cholecystectomy 11/2021 TECHNIQUE: Standard MRCP technique was utilized. 3-D postprocessing images reviewed. COMPARISON: None. FINDINGS: Gall Bladder: Gall bladder is surgically absent. Cystic duct: Normal with no demonstrated fixed filling defect. Intrahepatic ducts: Normal visualized intrahepatic ducts with no demonstrated fixed filling defect, dilation or stricture. Common hepatic duct: Normal with no demonstrated fixed filling defect, dilation or stricture. Common bile duct: Normal with no demonstrated fixed filling defect, dilation or stricture. Pancreatic duct: Normal with no demonstrated fixed filling defect, dilation or stricture. MRI/MRCP Abdomen without Contrast IMPRESSION: Normal MR Cholangiopancreatography (MRCP). Electronically Signed: Magdy Concepcion MD at 16:55 EDT ,
== END | disposition home or self-care (01) ==
LOC: MRI 11:26
PROVIDERS: Referring Provider Internal Medicine Gastroenterology; Visit Provider Internal Medicine Gastroenterology
DX: R10.9 Unspecified abdominal pain (principal)
CPT/HCPCS: 74181

== ENCOUNTER → 2022-04-09 | Outpatient (CLI) | payer MEDICAID, SELFPAY ==
--- NOTE | 2022-04-09 08:59 | NM_ITS ---
Gastric emptying study INDICATION: Frequent bowel movements, gastroparesis. TECHNIQUE: After the administration of 1 mCi technetium 99m sulfur colloid in a meal of oatmeal orally, multiple scintigraphic images of the abdomen were obtained. Furthermore, counts were obtained and gastric emptying curve was plotted. FINDINGS: Normal uptake is seen within the stomach with passage through the duodenum into the small bowel. After 1 hour, there is 84% gastric retention is normal. A T1 half is 265 minutes which is prolonged. NM/Gastric Emptying Study IMPRESSION: Probable prolonged gastric emptying. Electronically Signed: Eric Torres MD at 10:56 EDT ,
== END | disposition home or self-care (01) ==
LOC: NM 08:57
PROVIDERS: Visit Provider Internal Medicine Gastroenterology
DX: R10.9 Unspecified abdominal pain (principal)
CPT/HCPCS: 78264; A9541

== ENCOUNTER → 2022-04-17 | Outpatient (CLI) | payer MEDICAID, SELFPAY ==
--- NOTE | 2022-04-17 15:10 | CT_ITS ---
STUDY: CT ABDOMEN AND PELVIS WITH CONTRAST REASON FOR EXAM: Female, 32 years old. Diarrhea. Gastroparesis. RADIATION DOSAGE (If Supplied By Facility): CTDIvol = ( 16.60 ) mGy, DLP = ( 2120.41 ) mGycm TECHNIQUE: Transaxial images were obtained from the dome of the diaphragm to the symphysis pubis with oral contrast. 100 mL of ISOVUE-300 was administered. Sagittal and coronal images were reconstructed. Individualized dose optimization techniques were used for this CT. COMPARISON: 10/18/2018. MRCP, 04/06/2022. FINDINGS: The visualized lung bases are unremarkable. The visualized portions of the heart are within normal limits. Normal liver. There are surgical clips in the gallbladder fossa consistent with a prior cholecystectomy. Normal spleen. Normal pancreas. Normal bilateral adrenal glands. Normal right kidney. Normal left kidney. Normal bilateral ureters. Contrast debris and air filled the stomach. Normal small intestine. Normal colon. There is non-visualization of the appendix. Normal abdominal aorta. Normal inferior vena cava. Normal retroperitoneum. Normal urinary bladder. Normal uterus and right adnexa. There is a 1.6 cm dominant follicle in the left ovary. Stable phleboliths in the left pelvic sidewall. No pelvic lymphadenopathy. No free air or free fluid seen within the peritoneal cavity. Normal abdominal wall. Normal osseous structures. CT/Abdomen/Pelvis WITH Contrast IMPRESSION: 1. Absence of the right renal calculus seen on the previous study. 2. No evidence of acute intra-abdominal or pelvic process. 3. No other interval change. Electronically Signed: Alhaji Merchant DO at 16:04 EDT ,
== END | disposition home or self-care (01) ==
LOC: CT 15:03
PROVIDERS: Referring Provider Internal Medicine Gastroenterology; Visit Provider Internal Medicine Gastroenterology
DX: R10.9 Unspecified abdominal pain (principal)
CPT/HCPCS: 74177; Q9967

== ENCOUNTER 2022-05-08 23:59 | Emergency (ER) | payer MEDICAID, SELFPAY ==
[2022-05-09 00:02] VITALS: BP 120/76; PULSE 120; RESP 18; TEMP 36.1; O2SAT 97; BMI 34.9
--- NOTE | 2022-05-09 00:24 | EDS_ITS ---
HPI HPI - GI History of Present Illness Chief Complaint: Abd Pain Detail of Chief Complaint: Abdominal pain x2 nights Informant: patient Abdominal Pain/Flank Pain Current Severity: Severe Narrative Narrative: Patient presents the emergency department complaint of abdominal pain over the last 2 nights. Patient states she just cannot get comfortable. Pain is tiesha nuous. She describes the pain as sharp stabbing in the epigastric and upper abdomen. She has had similar pain for about a year. Patient currently seeing GI and will be having upper GI and lower scope. Patient had a CAT scan of her abdomen and pelvis April 17 that was essentially unremarkable. Patient describes early satiety and pain being made worse by eating. Patient tried Bentyl for pain without relief. Prior similar symptoms: Yes PFSH PFSH Home Medications aripiprazole 5 mg tablet (Abilify) 5 mg PO DAILY 05/09/22 [History Last Taken Unknown] hydrocodone-acetaminophen 5-325mg 5mg-325mg 1 tab PO Q4H PRN PRN Pain 2 days #10 TABLETS 05/09/22 [Rx Last Taken Unknown] Allergy/AdvReac Type Severity Reaction Status Date / Time Iodinated Contrast Media Allergy Nausea/Vom/ Verified 05/09/22 00:06 [DYEE] Diarrhea Penicillins Allergy Hives Verified 05/09/22 00:06 Sulfa (Sulfonamide Allergy Hives Verified 05/09/22 00:06 Antibiotics) Surgical History (Updated 03/03/22 @ 17:16 by Apoorva Weinstein) H/O knee surgery History of tonsillectomy and adenoidectomy Hx of cholecystectomy Social History household members: significant other and children Smoking Status: Current every day smoker tobacco type: cigarettes alcohol intake: current alcohol intake frequency: a few times a week substance use type: does not use ROS ROS ED Review of Systems ROS Unobtainable: other Constitutional Constitutional ED: Reports lethargy; Denies chills, fever(s), sweats or weight loss Eyes Eyes: Denies blurry vision, change in vision or diplopia ENT ENT ED: Denies rhinorrhea or sore throat Cardiovascular Cardiovascular: Reports chest pain and racing heartbeat; Denies orthopnea Respiratory/Chest Respiratory/Chest: Reports dyspnea and dyspnea on exertion; Denies cough, orthopnea or sputum Gastrointestinal Gastrointestinal: Reports abdominal pain, nausea and vomiting; Denies diarrhea Genitourinary Genitourinary ED: Denies dysuria, hematuria or urinary frequency Musculoskeletal Musculoskeletal: Denies arthralgias, back pain, myalgias or neck pain Integumentary Denies abscess, Abrasions or rash Neurologic Neurologic: Denies headache(s) or weakness Psychiatric Psychiatric: Denies anxiety, depression or suicidal thoughts Endocrine Endocrinology: Denies polydipsia, polyphagia or polyuria Hematologic/Lymphatic Hematologic/Lymphatic: Denies easy bleeding, easy bruising or lymphadenopathy Allergic/Immunologic Allergic/Immunologic ED: Denies mouth swelling, tongue swelling or urticaria EXAM Physical Exam Const Vital Signs: 05/09/22 00:02 05/09/22 01:49 Temperature 96.9 F L Temperature Source Temporal Pulse Rate 120 H 91 Respiratory Rate 18 16 Blood Pressure 120/76 102/63 Blood Pressure Mean 90 76 Pulse Ox 97 100 Oxygen Delivery Method Room Air Room Air Positive well nourished and well developed General Appearance ED: well developed and NAD HEENT Reports TM's clear and moist mucous membranes normocephalic and atraumatic; Negative for trauma or tenderness Tympanic Membrane ED: Yes TM's clear Eyes PERRL and EOMs intact bilaterally General Eye ED: Negative for pale conjunctiva or scleral icterus Neck no lymphadenopathy, supple and no JVD General: Negative for tenderness Chest Wall inspection of chest normal and palpation of chest normal Chest: Negative for tenderness Resp normal respiratory effort and clear to auscultation bilaterally Effort and Inspection: Negative for respiratory distress or pain with movement Auscultation: Negative for rhonchi, wheezes or diminished lung sounds Cardio regular rate, regular rhythm, S1 normal heart sound, S2 normal heart sound and no murmurs Peripheral Pulses: pulses 2+ throughout GI normal to inspection, nondistended, normoactive bowel sounds, soft to palpation, non-distended and no masses GI Narrative: Tender to palpation over the epigastric region and left upper quadrant. There are some mild guarding. There is no rebound, rigidity, or peritoneal signs. Back/Spine no CVA tenderness and no thoracic nor lumbar tenderness Extremity normal to inspection General Extremety ED: Negative for edema General Extremity: Negative for edema Neuro oriented x3, CN's II-XII intact bilaterally, no sensory deficits noted and gait normal Sensorium / Orientation: awake, alert, oriented to person, oriented to place and oriented to time Motor Exam: strength 5/5 throughout and strength abnormal Psych mental status grossly normal Skin no rashes or lesions noted and no wounds MDM MDM MDM Narrative Medical decision making narrative: IV line established on arrival. Patient was given a GI cocktail which really did not give her any relief. Lab work-up was significant for an elevated white count of 12.2. LFTs were normal chemistries normal and lipase normal. Lactate was normal 1.4. CT scan of the abdomen pelvis without contrast obtained was unremarkable. Patient did receive Dilaudid 1 mg IV and Zofran 4 mg IV and she had some pain relief with that. At this point etiology of her pain is unclear. I do not feel she has a surgical abdomen. 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 She is advised to return if worsening pain, fever, vomiting, bloody stools or hematemesis or condition should worsen anyway. Lab Data Attestation: I reviewed the patient's lab results. Labs: Laboratory Results - last 24 hr 05/09/22 05/09/22 05/09/22 00:30 00:30 00:30 WBC 12.2 H RBC 4.61 Hgb 14.0 Hct 41.7 MCV 90.5 MCH 30.4 MCHC 33.6 RDW Std Deviation 42.9 RDW Coeff of Katt 13.2 Plt Count 301 MPV 9.1 Immature Gran % (Auto) 0.600 Neut % (Auto) 76.8 H Lymph % (Auto) 14.0 L [place] % (Auto) 6.4 Eos % (Auto) 1.8 Baso % (Auto) 0.4 Absolute Neuts (auto) 9.4 H Absolute Lymphs (auto) 1.71 Nucleated RBC % 0 Sodium 141 Potassium 4.1 Chloride 107 Carbon Dioxide 30.0 Anion Gap 4 L BUN 14 Creatinine 0.86 Estim Creat Clear Calc 85.29 Est GFR (MDRD) Af Amer 99 Est GFR (MDRD) Non-Af 82 BUN/Creatinine Ratio 16.3 Glucose 101 Lactic Acid 1.4 Calcium 8.7 Total Bilirubin 0.20 AST 58 H ALT 53 Alkaline Phosphatase 89 Total Protein 6.2 L Albumin 3.2 Globulin 3.0 Albumin/Globulin Ratio 1.1 Lipase 90 Urine Color Urine Clarity Urine pH Ur Specific [place] Urine Protein Urine Glucose (UA) Urine Ketones Urine Occult Blood Urine Nitrite Urine Bilirubin Urine Urobilinogen Ur Leukocyte Esterase Urine RBC Urine WBC Ur Squamous Epith Cells Urine Bacteria Urine Mucus 05/09/22 00:55 WBC RBC Hgb Hct MCV MCH MCHC RDW Std Deviation RDW Coeff of Katt Plt Count MPV Immature Gran % (Auto) Neut % (Auto) Lymph % (Auto) [place] % (Auto) Eos % (Auto) Baso % (Auto) Absolute Neuts (auto) Absolute Lymphs (auto) Nucleated RBC % Sodium Potassium Chloride Carbon Dioxide Anion Gap BUN Creatinine Estim Creat Clear Calc Est GFR (MDRD) Af Amer Est GFR (MDRD) Non-Af BUN/Creatinine Ratio Glucose Lactic Acid Calcium Total Bilirubin AST ALT Alkaline Phosphatase Total Protein Albumin Globulin Albumin/Globulin Ratio Lipase Urine Color Yellow Urine Clarity Clear Urine pH 6.0 Ur Specific [place] 1.025 Urine Protein Negative Urine Glucose (UA) Normal Urine Ketones Negative Urine Occult Blood Negative Urine Nitrite Negative Urine Bilirubin Negative Urine Urobilinogen Normal Ur Leukocyte Esterase Negative Urine RBC 0 SEEN Urine WBC 0 SEEN Ur Squamous Epith Cells 0 SEEN Urine Bacteria RARE Urine Mucus 0 SEEN Radiography Diagnostic Testing: Clinical Impression(s) from Imaging Studies Abdomen/Pelvis CT 05/09/22 01:39 IMPRESSION: No acute findings. Right nephrolithiasis without hydronephrosis. Electronically Signed: Connie Hamm MD at 2:35 EDT , Discharge Plan Triage Chief Complaint: Abd Pain ED Provider: Madhuri Ceron Dx/Rx/DC Orders Clinical Impression: Abdominal pain Instructions: ED Abdominal Pain Unkn Cause Fem Prescriptions: New hydrocodone-acetaminophen [hydrocodone-acetaminophen] 5-325 mg tablet 1 tab PO Q4H PRN PRN (Reason: Pain) 2 Days Qty: 10 0RF No Action aripiprazole [Abilify] 5 mg Tablet 5 mg PO DAILY Primary Care Provider: Kayley Bland Referrals: Kayley Bland DO [Primary Care Provider] - Friend,DO Alhaji [STAFF PHYSICIAN] - 3-5 Days Disposition Disposition: Home, Self Care
[2022-05-09 00:45] LABS: Absolute Lymphocyte Count 1.71 X10^3/uL (0.83-4.51); Absolute Neutrophil Count 9.4 X10^3/uL (2.0-7.7); Basophil# 0.05 X10^3/uL; Basophil% 0.4 % (0-1); Eosinophil# 0.22 X10^3/uL; Eosinophils% 1.8 % (0-5); Hematocrit 41.7 % (37-47); Lymphocyte # 1.71 X10^3/ul (0.83-4.51); Mean Corp Hgb Conc 33.6 g/dL (32-36); Mean Corpuscular Hgb 30.4 pg (27.0-32.0); Mean Corpuscular Volume 90.5 fL (81-99); Mean Platelet Vol. 9.1 fl (6.2-12.0); Monocyte# 0.78 X10^3/uL; Monocyte% 6.4 % (0-10); NRBC Flagged by Analyzer 0 % (0-5); Neutrophil # 9.41 X10^3/uL (2.7-7.7); Neutrophil % 76.8 % (47-70); Platelet Count 301 K/mm3 (150-450); RBC Distribution Width CV 13.2 % (11.6-14.6); RBC Distribution Width SD 42.9 fl (35.1-43.9); Red Blood Count 4.61 M/mm3 (4.2-5.4); White Blood Count 12.2 K/mm3 (4.4-11.0)
[2022-05-09] MEDS: Mag Hydrox/Al Hydrox/Simeth 30 ML UDC PO (00:54)
[2022-05-09] MEDS: 0.9% Normal Saline 1,000 ML 125 ML IV (00:54)
[2022-05-09 01:02] LABS: ALB/GLOB Ratio 1.1 RATIO (0.9-2.4); AST(SGOT) 58 U/L (15-37); Alanine Aminotransfer ALT/SGPT 53 U/L (13-56); Albumin, Serum 3.2 g/dL (3.2-5.0); Alkaline Phosphatase 89 U/L (45-117); Anion Gap 4 (5-15); BUN 14 mg/dL (7-18); BUN/Creat Ratio 16.3 RATIO (10-20); Calcium,Total 8.7 mg/dL (8.5-10.1); Chloride 107 mmol/L (98-107); Creatinine, Serum 0.86 mg/dL (0.55-1.02); EST Glomerular Filtration Rate 82 mL/min (>60); Est Glom Filt Rate - Afr Amer 99 mL/min (>60); Estimated Creatinine Clearance 85.29 ml/min; Glucose 101 mg/dL (74-106); Lipase 90 U/L (73-393); Potassium 4.1 mmol/L (3.5-5.1); Protein, Total 6.2 g/dL (6.4-8.2); Sodium Level 141 mmol/L (136-145)
[2022-05-09 01:02] LABS: Color, Urine Yellow (Yellow); Glucose, Dipstick Normal (Normal); Ketone-Dipstick Negative (Negative); Leukocyte Esterase-Dipstick Negative /ul (Negative); Mucous, Urine 0 SEEN /hpf (<or=2+); Nitrite-Dipstick Negative (Negative); Occult Blood-Urine Negative /ul (Negative); Protein-Dipstick Negative (Negative); Red Blood Cells-Urine 0 SEEN /hpf (0-5); Specific Gravity, Urine 1.025 (1.002-1.030); Squamous Epithelial Cells - UA 0 SEEN /hpf (5-10); Urine Bilirubin Dipstick Negative (Negative); Urine Clarity Clear (Clear); Urine Urobilinogen Normal (Normal); White Blood Cells 0 SEEN /hpf (0-5)
[2022-05-09 01:03] LABS: Lactic Acid 1.4 mmol/L (0.4-1.9)
[2022-05-09 01:35] LABS: Bacteria RARE /hpf (None Seen)
--- NOTE | 2022-05-09 01:39 | CT_ITS ---
STUDY: CT ABDOMEN AND PELVIS WITHOUT CONTRAST REASON FOR EXAM: Female, 32 years old. abdominal pain RADIATION DOSAGE (If Supplied By Facility): CTDIvol = ( 18.99 ) mGy, DLP = ( 1057.92 ) mGycm TECHNIQUE: Transaxial images were obtained from the dome of the diaphragm to the symphysis pubis without oral contrast, and without intravenous contrast. Sagittal and coronal images were reconstructed. Individualized dose optimization techniques were used for this CT. COMPARISON: CT abdomen and pelvis 04/17/2022. FINDINGS: LOWER CHEST: Included lung bases are clear. LIVER: Grossly unremarkable. GALLBLADDER AND BILIARY TREE: Gallbladder surgically absent. PANCREAS: Grossly unremarkable. SPLEEN: Grossly unremarkable. ADRENAL GLANDS: Grossly unremarkable. KIDNEYS AND URETERS: 3 mm calculus in the right kidney. No hydronephrosis. PERITONEUM: No free air. No free fluid. BOWEL: No bowel obstruction. APPENDIX: Visualized and unremarkable. No evidence of acute appendicitis. VESSELS: Abdominal aorta is normal caliber. REPRODUCTIVE ORGANS: Grossly unremarkable URINARY BLADDER: Grossly unremarkable. ABDOMINAL WALL: Unremarkable. BONES: No acute abnormalities. CT/Abdomen/Pelvis without Cont IMPRESSION: No acute findings. Right nephrolithiasis without hydronephrosis. Electronically Signed: Connie Hamm MD at 2:35 EDT ,
[2022-05-09] MEDS: Ondansetron 4 MG/2 ML Vial IV (01:45)
[2022-05-09] MEDS: HYDROmorphone 1 MG/ML Syringe IV (01:45)
[2022-05-09 01:49] VITALS: BP 102/63; PULSE 91; RESP 16; O2SAT 100
[2022-05-09 02:54] VITALS: BP 118/81; PULSE 97; RESP 16; O2SAT 99
== END 2022-05-09 02:57 | disposition home or self-care (01) ==
PROVIDERS: Emergency Provider Emergency Medicine; Visit Provider Emergency Medicine
DX: R10.9 Unspecified abdominal pain (principal); F17.210 Nicotine dependence, cigarettes, uncomplicated
CPT/HCPCS: 74176; 80053; 81001; 83605; 83690; 85025; 96374; 96375; 99283; J7030; A4216; J2405

== ENCOUNTER 2022-06-02 19:56 | Emergency (ER) | payer MEDICAID, SELFPAY ==
[2022-06-02 19:57] VITALS: BP 127/85; PULSE 113; RESP 15; TEMP 36.1; O2SAT 99; BMI 36.6
--- NOTE | 2022-06-02 20:25 | ED.VIS.FEGU ---
HPI HPI - Female History of Present Illness Chief Complaint: Abd Pain Narrative Narrative: 32-year-old female presenting with right flank pain. She states it started yesterday. She describes her pain as kidney stone pain. She states that she had blood in her urine yesterday but none today. She states when she tries to urinate the right side will not work. This is how she knows she is a kidney stone. Denies dysuria or urinary frequency. No fever or chills. She is not complaining of nausea or vomiting. She states she has some chronic abdominal pain which sees Dr. Alatorre for. PFS PFS Home Medications aripiprazole 5 mg tablet (Abilify) 5 mg PO DAILY 05/09/22 [History Last Taken Unknown] hydrocodone-acetaminophen 5-325mg 5mg-325mg 1 tab PO Q4H PRN PRN Pain 2 days #10 TABLETS 05/09/22 [Rx Last Taken Unknown] metoclopramide HCl 5 mg tablet (Reglan) 2.5 mg PO QAC #45 tabs 05/26/22 [Rx Last Taken Unknown] Allergy/AdvReac Type Severity Reaction Status Date / Time Iodinated Contrast Media Allergy Nausea/Vom/ Verified 06/02/22 19:57 [DYEE] Diarrhea Penicillins Allergy Hives Verified 06/02/22 19:57 Sulfa (Sulfonamide Allergy Hives Verified 06/02/22 19:57 Antibiotics) Surgical History H/O knee surgery History of tonsillectomy and adenoidectomy Hx of cholecystectomy Social History household members: significant other and children Smoking Status: Current every day smoker tobacco type: cigarettes alcohol intake: current alcohol intake frequency: a few times a week substance use type: does not use ROS ROS ED Constitutional Constitutional ED: Denies chills or fever(s) Eyes Eyes: Denies change in vision or diplopia ENT ENT ED: Denies rhinorrhea or sore throat Cardiovascular Cardiovascular: Denies chest pain or palpitations Respiratory/Chest Respiratory/Chest: Denies cough or dyspnea Gastrointestinal Gastrointestinal: Reports abdominal pain; Denies constipation Genitourinary Genitourinary ED: Reports hematuria; Denies dysuria Musculoskeletal Musculoskeletal: Denies arthralgias or myalgias Integumentary Denies abscess or Abrasions Neurologic Neurologic: Denies headache(s) or paresthesias Psychiatric Psychiatric: Denies anxiety or depression EXAM Physical Exam Const Vital Signs: 06/02/22 19:57 Temperature 96.9 F L Temperature Source Temporal Pulse Rate 113 H Respiratory Rate 15 Blood Pressure 127/85 H Blood Pressure Mean 99 Pulse Ox 99 Oxygen Delivery Method Room Air Positive well nourished General Appearance ED: NAD; Negative for pallor HEENT Reports TM's clear and moist mucous membranes Tympanic Membrane ED: Yes TM's clear Eyes PERRL and EOMs intact bilaterally Resp normal respiratory effort and clear to auscultation bilaterally Auscultation: Negative for rales or rhonchi Cardio regular rate and regular rhythm GI normal to inspection, nondistended, normoactive bowel sounds Back/Spine General Back: Negative for CVA tenderness Extremity normal to inspection Neuro oriented x3 and CN's II-XII intact bilaterally Sensorium / Orientation: alert Motor Exam: strength 5/5 throughout Psych mental status grossly normal Skin no rashes or lesions noted General Skin Exam: Negative for jaundice or pallor MDM MDM MDM Narrative Medical decision making narrative: Scented with right-sided abdominal pain. She has no CVA tenderness on exam. She does not have any abdominal pain on palpation. But abdomen is benign. CBC is obtained and her hemoglobin hematocrit are normal. White blood cell count of 6.1. Renal function electrolytes are normal. Urinalysis shows 5 ketones. No occult blood. There is 0-5 RBCs. No evidence of infection. Patient treated with Toradol and Zofran. CT of the abdomen pelvis without contrast was obtained to evaluate for possible kidney stone and there is a nonobstructing right renal calculus which was there on her previous CT which is unchanged. Given this I will have her follow-up with urology. I do not issue narcotics for home. She is not expressing she has any nausea currently. She is to use Tylenol and ibuprofen at home for Impression: 1. right flank pain 2. Nonobstructing right distal ureter calculus Lab Data Attestation: I reviewed the patient's lab results. Labs: Laboratory Results - last 24 hr 06/02/22 06/02/22 06/02/22 20:30 20:30 20:45 WBC 6.1 RBC 4.47 Hgb 13.6 Hct 41.4 MCV 92.6 MCH 30.4 MCHC 32.9 RDW Std Deviation 44.8 H RDW Coeff of Katt 13.2 Plt Count 272 MPV 8.8 Immature Gran % (Auto) 0.500 Neut % (Auto) 64.7 Lymph % (Auto) 20.7 [place] % (Auto) 8.5 Eos % (Auto) 4.6 Baso % (Auto) 1.0 Absolute Neuts (auto) 4.0 Absolute Lymphs (auto) 1.27 Nucleated RBC % 0 Sodium 142 Potassium 3.8 Chloride 111 H Carbon Dioxide 28.0 Anion Gap 3 L BUN 10 Creatinine 0.79 Estim Creat Clear Calc 92.85 Est GFR (MDRD) Af Amer 109 Est GFR (MDRD) Non-Af 90 BUN/Creatinine Ratio 12.7 Glucose 100 Calcium 8.5 Urine Color Yellow Urine Clarity Clear Urine pH 6.0 Ur Specific [place] 1.020 Urine Protein Negative Urine Glucose (UA) Normal Urine Ketones 5 H Urine Occult Blood Negative Urine Nitrite Negative Urine Bilirubin Negative Urine Urobilinogen Normal Ur Leukocyte Esterase 25 H Urine RBC 0-5 SEEN Urine WBC 0-5 SEEN Ur Squamous Epith Cells 5-10 SEEN Amorphous Sediment 1+ URATE Urine Bacteria 0 SEEN Urine Mucus 0 SEEN Radiography Diagnostic Testing: Clinical Impression(s) from Imaging Studies Abdomen/Pelvis CT 06/02/22 21:20 IMPRESSION: Findings consistent with nonobstructing calculus in the distal right ureter previously seen in the renal collecting system on study in April Electronically Signed: Dorian Nickerson MD at 21:46 EDT Reading Location ID and State: [address] [place] [address] , Service support , Discharge Plan Triage Chief Complaint: Abd Pain ED Provider: Natanael Sampson Dx/Rx/DC Orders Instructions: ED Abdominal Pain Unkn Cause Fem Prescriptions: No Action aripiprazole [Abilify] 5 mg Tablet 5 mg PO DAILY hydrocodone-acetaminophen [hydrocodone-acetaminophen] 5-325 mg tablet 1 tab PO Q4H PRN PRN (Reason: Pain) 2 Days Qty: 10 0RF metoclopramide HCl [Reglan] 5 mg tablet 2.5 mg PO QAC Qty: 45 0RF Rx Instructions: administer 30 minutes before meals Primary Care Provider: Kayley Bland Referrals: Glo Shepherd MD [Med Staff - Active Staff] - 3-5 Days Kayley Bland DO [Primary Care Provider] - Disposition Disposition: Home, Self Care
[2022-06-02 20:46] LABS: Absolute Lymphocyte Count 1.27 X10^3/uL (0.83-4.51); Basophil# 0.06 X10^3/uL; Eosinophil# 0.28 X10^3/uL; Eosinophils% 4.6 % (0-5); Hematocrit 41.4 % (37-47); Hemoglobin 13.6 g/dL (12.0-15.0); Lymphocyte # 1.27 X10^3/ul (0.83-4.51); Lymphocyte % 20.7 % (19-41); Mean Corp Hgb Conc 32.9 g/dL (32-36); Mean Corpuscular Hgb 30.4 pg (27.0-32.0); Mean Corpuscular Volume 92.6 fL (81-99); Mean Platelet Vol. 8.8 fl (6.2-12.0); Monocyte# 0.52 X10^3/uL; Monocyte% 8.5 % (0-10); NRBC Flagged by Analyzer 0 % (0-5); Neutrophil # 3.97 X10^3/uL (2.7-7.7); Neutrophil % 64.7 % (47-70); Platelet Count 272 K/mm3 (150-450); RBC Distribution Width CV 13.2 % (11.6-14.6); RBC Distribution Width SD 44.8 fl (35.1-43.9); Red Blood Count 4.47 M/mm3 (4.2-5.4); White Blood Count 6.1 K/mm3 (4.4-11.0)
[2022-06-02 20:48] LABS: Anion Gap 3 (5-15); BUN 10 mg/dL (7-18); BUN/Creat Ratio 12.7 RATIO (10-20); Calcium,Total 8.5 mg/dL (8.5-10.1); Chloride 111 mmol/L (98-107); Creatinine, Serum 0.79 mg/dL (0.55-1.02); EST Glomerular Filtration Rate 90 mL/min (>60); Est Glom Filt Rate - Afr Amer 109 mL/min (>60); Estimated Creatinine Clearance 92.85 ml/min; Glucose 100 mg/dL (74-106); Potassium 3.8 mmol/L (3.5-5.1); Sodium Level 142 mmol/L (136-145)
[2022-06-02] MEDS: Ketorolac 15 MG/ML Vial IV (20:48)
[2022-06-02] MEDS: Ondansetron 4 MG/2 ML Vial IV (20:49)
[2022-06-02 20:50] LABS: Bacteria 0 SEEN /hpf (None Seen); Mucous, Urine 0 SEEN /hpf (<or=2+)
[2022-06-02 21:00] LABS: Color, Urine Yellow (Yellow); Glucose, Dipstick Normal (Normal); Ketone-Dipstick 5 mg/dl (Negative); Leukocyte Esterase-Dipstick 25 /ul (Negative); Nitrite-Dipstick Negative (Negative); Occult Blood-Urine Negative /ul (Negative); Protein-Dipstick Negative (Negative); Urine Bilirubin Dipstick Negative (Negative); Urine Clarity Clear (Clear); Urine Urobilinogen Normal (Normal)
--- NOTE | 2022-06-02 21:20 | CT_ITS ---
STUDY: CT ABDOMEN AND PELVIS WITHOUT CONTRAST REASON FOR EXAM: Female, 32 years old. right flank pain RADIATION DOSAGE (If Supplied By Facility): CTDIvol = ( 19.62 ) mGy, DLP = ( 1093.39 ) mGycm TECHNIQUE: Transaxial images were obtained from the dome of the diaphragm to the symphysis pubis without oral contrast, and without intravenous contrast. Sagittal and coronal images were reconstructed. Individualized dose optimization techniques were used for this CT. COMPARISON: 05/09/2022 FINDINGS: The visualized lung bases are unremarkable. The visualized portions of the heart are within normal limits. Normal liver. Gallbladder has been removed surgically.. Normal spleen. Normal pancreas. Normal bilateral adrenal glands. No evidence for renal obstruction. However, there is a small calcification in the pelvis to the right of midline which is suspicious for nonobstructing stone which was previously noted in the right renal collecting system on prior exam. No renal mass. Normal left kidney. Nonspecific gastric distention with retained secretions Normal small intestine. Normal colon. The appendix is visualized and appears normal. Normal abdominal aorta. Normal inferior vena cava. Normal retroperitoneum. Incompletely distended thick-walled bladder likely of no significance Normal abdominal wall. Lumbar spine demonstrates mild spondylosis. CT/Abdomen/Pelvis without Cont IMPRESSION: Findings consistent with nonobstructing calculus in the distal right ureter previously seen in the renal collecting system on study in April Electronically Signed: Dorian Nickerson MD at 21:46 EDT ,
[2022-06-02 21:27] LABS: Amorphous Sediment 1+ URATE; Red Blood Cells-Urine 0-5 SEEN /hpf (0-5); Squamous Epithelial Cells - UA 5-10 SEEN /hpf (5-10); White Blood Cells 0-5 SEEN /hpf (0-5)
[2022-06-02 22:08] VITALS: BP 102/58; PULSE 97; RESP 16; RESP 18; O2SAT 98
== END 2022-06-02 22:09 | disposition home or self-care (01) ==
PROVIDERS: Emergency Provider Student in an Organized Health Care Education/Training Program; Visit Provider Student in an Organized Health Care Education/Training Program
DX: N20.1 Calculus of ureter (principal); F17.210 Nicotine dependence, cigarettes, uncomplicated; R10.9 Unspecified abdominal pain
CPT/HCPCS: 74176; 80048; 81001; 85025; 96374; 96375; 99283; A4216; J2405

== ENCOUNTER 2022-06-23 12:25 | Day surgery (SDC) | payer MEDICAID, SELFPAY ==
[2022-06-23] VITALS (7 sets, daily range): BP systolic 116–122; BP diastolic 64–105; PULSE 80–113; RESP 16; TEMP 36.7–36.9; O2SAT 97–100; BMI 35.6
--- NOTE | 2022-06-23 13:33 | COLBX_PTH ---
PATIENT: SAÚL ANTHONY LOC: [facility] U#:[id number] AGE/SX: 32/F ROOM: RE06/23/[address]: Dr. Alhaji Alatorre DO : 1990 BED: DIS: 06/23/2022 SPEC #: [id number] RECD: 06/23/22 17:57 STATUS: MAMADOU DALY #: [id number] DANETTE: 06/23/22 13:[address]: Alhaji Alatorre DEPT: SURGICAL PATHOLOGY RECD BY: Gautam Delatorre ENTERED: 06/24/22 08:21 SP TYPE: COLON BX OTHR DR: Dr. Kayley Bland DO Tissues: A - Duodenum, NOS B - Esophagus, NOS C - Ileum, NOS D - COLON BIOPSY Procedures: Special Stain Group II Surgery Specimen Level IV Alcian Blue/PAS (control) HEADER OPERATION: Colonoscopy with biopsies, [place] [place] DIAGNOSIS: Abdominal pain TISSUE SUBMITTED: A ? Duodenum biopsy, B ? Distal esophagus biopsy, C ? Terminal ileum biopsy, D ? Random colon biopsy MICROSCOPIC DIAGNOSIS A. Duodenum, biopsy: Fragments of duodenal mucosa with mild nonspecific chronic inflammation and Uday gland hyperplasia. B. Distal esophagus, biopsy: A fragment of gastroesophageal mucosa with chronic inflammation. Intestinal metaplasia (goblet cell metaplasia) not identified. See comment. C. Terminal ileum, biopsy: Fragments of small intestinal mucosa, no pathologic diagnosis. D. Colon, random biopsy: Fragments of colonic mucosa, no pathologic diagnosis. SJ:micheal 06/25/2022 COMMENT B. Alcian blue/PAS stain with matched control is used in the evaluation of the specimen. MICROSCOPIC DESCRIPTION Slides are reviewed. GROSS DESCRIPTION A - Received in fixative is one container labeled with the patient's name and designated duodenum biopsy. The specimen consists of two irregular fragments of light sanchez soft tissue that in aggregate measure 1 x 0.5 x 0.1 cm. The specimen is totally submitted in one cassette. B - Received in fixative is one container labeled with the patient's name and designated distal esophagus biopsy. The specimen consists of one irregular fragment of light sanchez soft tissue that measures 0.5 x 0.3 x 0.1 cm. The specimen is totally submitted in one cassette. C - Received in fixative is one container labeled with the patient's name and designated terminal ileum. The specimen consists of multiple irregular fragments of light sanchez soft tissue that in aggregate measure 1 x 0.5 x 0.1 cm. The specimen is totally submitted in one cassette. D - Received in fixative is one container labeled with the patient's name and designated random colon. The specimen consists of multiple irregular fragments of light sanchez soft tissue that in aggregate measure 2 x 1 x 0.1 cm. The specimen is totally submitted in one cassette. / AM:micheal 06/24/2022 TC:3 CPT: 89351 x4
--- NOTE | 2022-06-23 14:38 | OP.EGD_ITS ---
Patient Name: Becki Jackson Procedure Date: 06/23/2022 1:45 PM Date of : 1990 Age: 32 Procedure: Upper GI endoscopy Indications: Epigastric abdominal pain, Functional Dyspepsia, Heartburn, Failure to respond to medical treatment Providers: Alhaji Alatorre DO Referring MD: Kayley Bland Medicines: Monitored Anesthesia Care Patient Profile: This is a 32 year old female. Refer to note in patient chart for documentation of history and physical. Patient has symptoms. She is status post EGD for biopsy within the past five years. Complications: No immediate complications. Procedure: Pre-Anesthesia Assessment: - Prior to the procedure, a History and Physical was performed, and patient medications and allergies were reviewed. The risks and benefits of the procedure and the sedation options and risks were discussed with the patient. All questions were answered and informed consent was obtained. Patient identification and proposed procedure were verified by the physician in the pre-procedure area. Mental Status Examination: alert and oriented. Airway Examination: normal oropharyngeal airway and neck mobility. Respiratory Examination: clear to auscultation. CV Examination: normal. Prophylactic Antibiotics: The patient does not require prophylactic antibiotics. Prior Anticoagulants: The patient has taken no previous anticoagulant or antiplatelet agents. ASA Grade Assessment: II - A patient with mild systemic disease. After reviewing the risks and benefits, the patient was deemed in satisfactory condition to undergo the procedure. The anesthesia plan was to use moderate sedation / analgesia (conscious sedation). Immediately prior to administration of medications, the patient was re-assessed for adequacy to receive sedatives. The heart rate, respiratory rate, oxygen saturations, blood pressure, adequacy of pulmonary ventilation, and response to care were monitored throughout the procedure. The physical status of the patient was re-assessed after the procedure. After obtaining informed consent, the endoscope was passed under direct vision. Throughout the procedure, the patient's blood pressure, pulse, and oxygen saturations were monitored continuously. The pediatric colonoscope was introduced through the mouth, and advanced to the second part of duodenum. The upper GI endoscopy was accomplished without difficulty. The patient tolerated the procedure well. Scope In: 2:01:35 PM Scope Out: 2:05:57 PM Total Procedure Duration Time 0 hours 4 minutes 22 seconds Findings: The examined esophagus was normal. The Z-line was irregular and was found 39 cm from the incisors. Biopsies were taken with a cold forceps for histology. Verification of patient identification for the specimen was done. Estimated blood loss was minimal. A medium-sized hiatal hernia was present. A medium amount of food (residue) was found in the gastric body. A benign-appearing, intrinsic mild stenosis was found at the pylorus. This was traversed. A guidewire was placed and the scope was withdrawn. Dilation was performed with a Savary dilator with no resistance at 36 Fr. The dilation site was examined following endoscope reinsertion and showed moderate improvement in luminal narrowing. Estimated blood loss was minimal. One non-bleeding cratered duodenal ulcer with no stigmata of bleeding was found in the duodenal bulb. The lesion was 6 mm in largest dimension. Biopsies were taken with a cold forceps for histology. Verification of patient identification for the specimen was done. Estimated blood loss was minimal. Impression: - Normal esophagus. - Z-line irregular, 39 cm from the incisors. Biopsied. - Medium-sized hiatal hernia. - A medium amount of food (residue) in the stomach. - Gastric stenosis was found at the pylorus. Dilated. - One non-bleeding duodenal ulcer with no stigmata of bleeding. Biopsied. Recommendation: - Discharge patient to home. - Resume previous diet. - Continue present medications. - Await pathology results. - Repeat upper endoscopy in 1 year for surveillance. Procedure Code(s): --- Professional --- 49741, Esophagogastroduodenoscopy, flexible, transoral; with dilation of gastric/duodenal stricture(s) (eg, balloon, bougie) 45778, 59,51, Esophagogastroduodenoscopy, flexible, transoral; with biopsy, single or multiple CPT copyright 2017 [employer]. All rights reserved. The codes documented in this report are preliminary and upon braille coder review may be revised to meet current compliance requirements. Alhaji Alatorre DO 06/23/2022 2:38:20 PM This report has been signed electronically. Number of Addenda: 1 Note Initiated On: 06/23/2022 1:45 PM Addendum Number: 1 Addendum Date: 07/30/2022 6:02:27 AM MAC was used as sedation for this procedure. Alhaji Alatorre DO 07/30/2022 6:02:31 AM This report has been signed electronically.
--- NOTE | 2022-06-23 14:39 | OP.CCLET_ITS ---
07/30/2022 Kayley Bland Re : Upper GI endoscopy procedure for Becki Bland This procedure was performed on Thursday, June 23, 2022. My impressions and recommendations are as follows: Impressions : - Normal esophagus. - Z-line irregular, 39 cm from the incisors. Biopsied. - Medium-sized hiatal hernia. - A medium amount of food (residue) in the stomach. - Gastric stenosis was found at the pylorus. Dilated. - One non-bleeding duodenal ulcer with no stigmata of bleeding. Biopsied. Recommendations : - Discharge patient to home. - Resume previous diet. - Continue present medications. - Await pathology results. - Repeat upper endoscopy in 1 year for surveillance. My findings are described in the full procedure note, which is enclosed. If I can be of further assistance, please feel free to contact me at . Sincerely, Alhaji Alatorre, 06/23/2022 2:38:20 PM This report has been signed electronically.
--- NOTE | 2022-06-23 14:41 | OP.CCLET_ITS ---
07/30/2022 Kayley Bland Re : Colonoscopy procedure for Becki Bland This procedure was performed on Thursday, June 23, 2022. My impressions and recommendations are as follows: Impressions : - The examined portion of the ileum was normal. Biopsied. - Stool in the recto-sigmoid colon, in the sigmoid colon, at the hepatic flexure and in the ascending colon. Biopsied. Recommendations : - Discharge patient to home. - Resume previous diet. - Continue present medications. - Await pathology results. - Repeat colonoscopy in 5 years for surveillance. My findings are described in the full procedure note, which is enclosed. If I can be of further assistance, please feel free to contact me at . Sincerely, Alhaji Alatorre, 06/23/2022 2:41:17 PM This report has been signed electronically.
--- NOTE | 2022-06-23 14:41 | OP.COLON_ITS ---
Patient Name: Becki Jackson Procedure Date: 06/23/2022 2:11 PM Date of : 1990 Age: 32 Procedure: Colonoscopy Indications: Abdominal pain in the left lower quadrant, Chronic diarrhea Providers: Alhaji Alatorre DO Referring MD: Kayley Bland Medicines: Monitored Anesthesia Care Patient Profile: This is a 32 year old female. Refer to note in patient chart for documentation of history and physical. Patient has symptoms. She is status post EGD for biopsy within the past five years. Last Colonoscopy: date unknown. Unable to locate last colonoscopy report. Complications: No immediate complications. Procedure: Pre-Anesthesia Assessment: - Prior to the procedure, a History and Physical was performed, and patient medications and allergies were reviewed. The risks and benefits of the procedure and the sedation options and risks were discussed with the patient. All questions were answered and informed consent was obtained. Patient identification and proposed procedure were verified by the physician in the pre-procedure area. Mental Status Examination: alert and oriented. Airway Examination: normal oropharyngeal airway and neck mobility. Respiratory Examination: clear to auscultation. CV Examination: normal. Prophylactic Antibiotics: The patient does not require prophylactic antibiotics. Prior Anticoagulants: The patient has taken no previous anticoagulant or antiplatelet agents. ASA Grade Assessment: II - A patient with mild systemic disease. After reviewing the risks and benefits, the patient was deemed in satisfactory condition to undergo the procedure. The anesthesia plan was to use moderate sedation / analgesia (conscious sedation). Immediately prior to administration of medications, the patient was re-assessed for adequacy to receive sedatives. The heart rate, respiratory rate, oxygen saturations, blood pressure, adequacy of pulmonary ventilation, and response to care were monitored throughout the procedure. The physical status of the patient was re-assessed after the procedure. After I obtained informed consent, the scope was passed under direct vision. Throughout the procedure, the patient's blood pressure, pulse, and oxygen saturations were monitored continuously. The colonoscope was introduced through the anus and advanced to the terminal ileum. The colonoscopy was performed without difficulty. The patient tolerated the procedure well. The quality of the bowel preparation was adequate. Scope In: 2:12:37 PM Scope Withdrawal Time 0 hours 11 minutes 4 seconds Scope Out: 2:28:13 PM Total Procedure Duration Time 0 hours 15 minutes 36 seconds Findings: The perianal and digital rectal examinations were normal. The terminal ileum appeared normal. Biopsies were taken with a cold forceps for histology. Verification of patient identification for the specimen was done. Estimated blood loss was minimal. A moderate amount of stool was found in the recto-sigmoid colon, in the sigmoid colon, at the hepatic flexure and in the ascending colon, making visualization difficult. Lavage of the area was performed using 200 - 500 mL of sterile water, resulting in clearance with adequate visualization. Biopsies were taken with a cold forceps for histology. Verification of patient identification for the specimen was done. Estimated blood loss was minimal. Impression: - The examined portion of the ileum was normal. Biopsied. - Stool in the recto-sigmoid colon, in the sigmoid colon, at the hepatic flexure and in the ascending colon. Biopsied. Recommendation: - Discharge patient to home. - Resume previous diet. - Continue present medications. - Await pathology results. - Repeat colonoscopy in 5 years for surveillance. Procedure Code(s): --- Professional --- 32525, Colonoscopy, flexible; with biopsy, single or multiple CPT copyright 2017 [employer]. All rights reserved. The codes documented in this report are preliminary and upon picking machine operator review may be revised to meet current compliance requirements. Alhaji Alatorre DO 06/23/2022 2:41:17 PM This report has been signed electronically. Number of Addenda: 1 Note Initiated On: 06/23/2022 2:11 PM Addendum Number: 1 Addendum Date: 07/30/2022 6:02:38 AM MAC was used as sedation for this procedure. Alhaji Alatorre DO 07/30/2022 6:02:42 AM This report has been signed electronically.
--- NOTE | 2022-06-23 14:42 | HP.PCM_ITS ---
History and Physical Date of Admission: 06/23/22 BECKI ANTHONY, is a 32 F who presents to the office today for initial evaluation of ongoing GI problems for the last 10 years. Initial consult. Becki established with this clinic 03.19.22 with referral from her PCP for abdominal pain, belching, nausea and vomiting which continued following cholecystectomy 11.05.21.? Originally started back in 2011 with diarrhea.? That progressed to bloody diarrhea.? She underwent evaluation with an colonoscopy and was told that there was no acute or chronic pathology but she continues to have diarrhea and bleeding per rectum.? She has not had any stool testing for infectious colitis or enterocolitis.? She has not been tested for any communicable diseases.? She has not had any evaluation of her small bowel for Crohn's disease, Behcet's disease, celiac disease or microscopic disease.? She does not drink alcohol or use any illegal substances.? She denies any rash, ulcers or lesions but does get frequent kidney stones.? She has not seen a lumber grader and does not know why she gets frequent kidney stones.? Her weight fluctuates about 5 or 10 pounds.? She really eats sugary foods that she likes because it tends to.? Denies any rash or? arthritis.? She does complain of myalgias, fatigue and weakness.? She has not been seen by a etl database developer.? She was told that she had a hyperactive gallbladder and this resulted in a cholecystectomy. CT abd/pel 11.09.21 [facility] found free intraperitoneal air r/t recent surgery; normal liver; mild periumbilical fat stranding of abdominal wall. [facility] anxiety/depression ([employer] d/c?d r/t insurance; [facility]), alcohol use with RAOUL 0.08-0.29, tobacco use, nephrolithiasis. [facility] cholecystectomy 11.05.21 EGD and colonoscopy 07.09.21 at [facility] and she was not told of any abnormal results. Since 05.22.21 she has been having upper abdominal pain that is stabbing and throbbing. No identifiable trigger or timing of the day. Eating makes her feel worse within moments with emesis, diarrhea and increased pain. Diarrhea occurs each day, varies between watery and pasty without blood or mucous. Denies mar ijuana and alcohol use. Will have belches that ?smell like ?.? She has attempted bentyl without effect. Lomotil without effect. ROS Const Constitutional: No fatigue, malaise, night sweats, weight change, sleep problems, abnormal sleep pattern or change in appetite ENT ENT: No difficulty swallowing, hoarseness or sore throat Cardio Cardiology: No chest pain at rest Gastro GI: No change in bowel habits, change in stool character, coffee ground emesis, constipation, cramping, heartburn, difficulty swallowing, feeling full early, excessive flatus, incontinent of stools, Vomiting blood/hematemesis, Blood in stool, loose stools, Black,tarry stools, pain with swallowing or other Musc Musculoskeletal: No joint pain Skin Skin: No yellowing of the eye or itchy eyes Neuro Neurology: No behavioral changes Psych Psychiatric: No abnormal sleep pattern, No anxiety, No behavioral changes, No change in appetite and No depression Endo Endocrine: No fatigue or weight change Aller/Imm Allergy/Immunologic: No itchy eyes Bipin/Lymp Hematologic/Lymphatic: No easy bleeding or easy bruising Exam Const General: cooperative and comfortable Nutritional Appearance: average body habitus and well nourished [facility] Head: normal to inspection Ears: hearing grossly normal bilaterally Nose: external nose normal Face and sinus: normal facial exam Mouth: oral mucosae normal Throat: posterior oropharynx normal Eyes General: appearance normal, both eyes and all related structures Neck Neck: normal visual inspection Chest Chest palpation & inspection: normal inspection of the chest and normal palpation of entire chest wall Resp Effort & Inspection: normal respiratory effort Auscultation: Bilateral: Clear to Auscultation Cardio Palpation: normal PMI Rate: regular rate Rhythm: regular rhythm GI Inspection: normal to inspection Auscultation: normal bowel sounds Percussion: normal to percussion Palpation: no hepatosplenomegaly Skin General: no rashes or lesions noted Neuro General: patient alert Extrem General: normal to inspection Psych Affect: normal affect Quality Reporting Tobacco Screening ([facility] 138) Smoking Status: Current every day smoker Assessment and Plan Assessment and Plan (1) Abdominal pain: ?Status:?Acute ? ? ? Orders:?Orders: ? CRPA Today ? ? ? CBC W/Diff, Automated Today ? ? ? Angiotensin Convert Enzyme Today ? ? ? ANCA Today ? ? ? Celiac Disease Profile Today ? ? ? LDH Today ? ? ? Erythrocyte Sed Rate Today ? ? ? Calprotectin, Stool Today ? ? ? Stool Lactoferrin/WBC Today ? ? ? Immunoglobulin A Today ? ? ? Immunoglobulin E Today ? ? ? JOSH + Protein Elect, Serum Today ? ? ? Immunoglobulin G Today ? ? ?F Immunoglobulin M Today ? ? ? Vitamin D,25 Hydroxy Today ? ? ? Vitamin B12 Today ? ? ? Free T3 Today ? ? ? T4 Free Direct Today ? ? ? Thyroid Stim Hormone (TSH) Today ? ? ? Vitamin D 1,25-Dihydroxy Today ? ? ? Hepatitis Panel Acute Today ? ? ? Abdomen/Pelvis WITH Contrast Today ? ? ? MRCP Abdomen without Contrast Today ? ? ? Gastric Emptying Study Today ? ? ? Lyme Screen W/Reflex WB Today ? ? ? Cholesterol Today ? ? ? High Density Lipoprotein Today ? ? ? Triglycerides Today ? ? ? Hemoglobin A1c Today ? ? ? LDL, Direct Today ?Plan - Dr. Mane Friend, DO: Differential diagnosis for abdominal pain could be due to an injury from her previous cholecystectomy.? We will get a CT scan abdomen pelvis to LFTs that were seen.? We will also get an evaluation of imaging, stool test and blood work.? She needs evaluation for autoimmune diseases that may be affecting her GI tract.? For example lupus, mixed connective tissue disease, Sjogren's syndrome in particular.? She also needs biopsy for eosinophilic disease, biochemical work-up for chronic disease such as Lyme for example.? She is okay with this plan.? At this time she is having trouble keeping a job due to her need to have frequent bowel movements.? She needs an extensive work-up to make sure that there are any diseases that may be affecting multisystems in her body.? She is okay with this plan I have re-examined the patient. There are no clinical changes since date of exam.
== END 2022-06-23 15:27 | disposition home or self-care (01) ==
LOC: EN 12:25 → AC 12:26
PROVIDERS: Visit Provider Internal Medicine Gastroenterology
PROC: 0DJD8ZZ Inspection of Lower Intestinal Tract, Via Natural or Artificial Opening Endoscopic (ICD-10-PCS; CPT 45378; principal; 2022-06-23 13:25)
DX: K44.9 Diaphragmatic hernia without obstruction or gangrene (principal); F31.9 Bipolar disorder, unspecified; K31.1 Adult hypertrophic pyloric stenosis; K20.90 Esophagitis, unspecified without bleeding; K31.89 Other diseases of stomach and duodenum; K26.7 Chronic duodenal ulcer without hemorrhage or perforation; F17.200 Nicotine dependence, unspecified, uncomplicated; J45.909 Unspecified asthma, uncomplicated; Z79.899 Other long term (current) drug therapy
CPT/HCPCS: 45380; 43239; 43245; 88305; 88313; J7120; J2405

== ENCOUNTER 2022-07-10 03:06 | Emergency (ER) | payer MEDICAID, SELFPAY ==
[2022-07-10 03:07] VITALS: BP 124/80; PULSE 125; RESP 20; TEMP 36.6; O2SAT 100; BMI 35.9
[2022-07-10 03:10] VITALS: O2SAT 100
--- NOTE | 2022-07-10 03:27 | EKG12_ITS ---
Test Reason : cp Blood Pressure : / mmHG Vent. Rate : 116 BPM Atrial Rate : 116 BPM P-R Int : 124 ms QRS Dur : 088 ms QT Int : 312 ms P-R-T Axes : 063 083 001 degrees QTc Int : 433 ms Sinus tachycardia Nonspecific T wave abnormality Abnormal ECG Confirmed by DILIP WALTERS, LANE ([id number]), editor book CHRISTY SOOD ([id number]) on 07/13/2022 10:56:49 AM Referred By: Gurpreet Confirmed By:LANE CHERRY MD
[2022-07-10] MEDS: 0.9% Normal Saline 1,000 ML 999 ML IV (03:36)
[2022-07-10 03:39] LABS: Absolute Neutrophil Count 1.2 X10^3/uL (2.0-7.7); Basophil# 0.01 X10^3/uL; Basophil% 0.6 % (0-1); Hematocrit 37.5 % (37-47); Hemoglobin 12.7 g/dL (12.0-15.0); Lymphocyte % 11.2 % (19-41); Mean Corp Hgb Conc 33.9 g/dL (32-36); Mean Corpuscular Hgb 30.3 pg (27.0-32.0); Mean Corpuscular Volume 89.5 fL (81-99); Mean Platelet Vol. 9.6 fl (6.2-12.0); Monocyte# 0.42 X10^3/uL; Monocyte% 23.5 % (0-10); NRBC Flagged by Analyzer 0 % (0-5); Neutrophil # 1.15 X10^3/uL (2.7-7.7); Neutrophil % 64.1 % (47-70); POSITIVE DIFFERENTIAL YES; Platelet Count 178 K/mm3 (150-450); RBC Distribution Width SD 42.8 fl (35.1-43.9); Red Blood Count 4.19 M/mm3 (4.2-5.4); White Blood Count 1.8 K/mm3 (4.4-11.0)
[2022-07-10 03:40] LABS: Differential Indicated SCAN CRITERIA MET
--- NOTE | 2022-07-10 03:45 | RAD_ITS ---
EXAM: XR CHEST, 2 VIEWS CLINICAL INDICATION: dyspnea TECHNIQUE: Frontal and lateral views of the chest. This report was created using [employer] report generation technology. COMPARISON: Previous chest radiographs of 03/17/2021 and 08/08/2018. FINDINGS: LUNGS AND PLEURAL SPACES: Lungs are not hyperinflated. Mild peribronchial cuffing is present. No patchy airspace disease. No pneumothorax. No effusion. HEART: Unremarkable. Cardiac silhouette not enlarged. MEDIASTINUM: Central airways and mediastinal contour are unremarkable. BONES/JOINTS: No acute abnormality. Minimal midthoracic degenerative spurring. SOFT TISSUES: Cholecystectomy clips. RAD/Chest PA and Lateral IMPRESSION: Peribronchial cuffing indicating bronchial wall inflammation/bronchitis. No pneumonia. Electronically Signed: Zi Solis MD at 4:12 EDT ,
[2022-07-10 03:47] LABS: Internal QC Validated? YES +Cl - CLEAR BKGD; Pregnancy, Urine Negative Negative
[2022-07-10 03:54] LABS: D-Dimer Quantitative (DVT/PE) 0.94 FEU/ug/m (0.27-0.49)
[2022-07-10 03:56] LABS: Differential Comment SCANNED
[2022-07-10 03:58] LABS: Anion Gap 7 (5-15); BUN 11 mg/dL (7-18); BUN/Creat Ratio 12.7 RATIO (10-20); Calcium,Total 8.4 mg/dL (8.5-10.1); Chloride 109 mmol/L (98-107); Creatinine, Serum 0.87 mg/dL (0.55-1.02); EST Glomerular Filtration Rate 81 mL/min (>60); Est Glom Filt Rate - Afr Amer 98 mL/min (>60); Estimated Creatinine Clearance 84.31 ml/min; Glucose 89 mg/dL (74-106); Magnesium 1.9 mg/dL (1.6-2.6); Potassium 3.6 mmol/L (3.5-5.1); Sodium Level 140 mmol/L (136-145); Troponin-I HS 5 pg/mL (3.0-54.0)
[2022-07-10 04:26] VITALS: PULSE 123; RESP 18; O2SAT 97
[2022-07-10] MEDS: dexAMETHasone 10 MG/ML Vial IV (04:26)
--- NOTE | 2022-07-10 05:07 | EX.ED.DYSGE1 ---
HPI History of Present Illness Chief Complaint: Shortness of Breath Narrative Narrative: Patient is a 32 female with history of psychiatric disorder as well as has gastroparesis. She states for the last 2 days she has been feeling chest discomfort and tightness and shortness of breath. She states that she was walking around in the [facility] asking [facility] to check her over. She states that she feels like her symptoms have been slowly progressing and secondary to this comes to the hospital for evaluation. Patient denies any illicit drug use and she denies any family history of cardiac disease at a young age. She also denies any recent travel surgery or history of DVT/PE. However based on her sensation of shortness of breath she comes to the hospital for evaluation [facility] Medical History Alcohol use Anxiety Arthritis Asthma Back pain Bipolar disorder Depression Diarrhea Easy bruising Excessive bleeding Gastric reflux Gastroparesis Leg cramps Loss of consciousness Migraine headache Nausea Restless legs Seizures Smoker Wears glasses Home Medications metoclopramide HCl 5 mg tablet (Reglan) 2.5 mg PO QAC #45 tabs 05/26/22 [Rx Last Taken Unknown] albuterol sulfate 90 mcg/actuation aerosol inhaler 1 puff inhalation Q6H PRN SOB 06/18/22 [History Last Taken Unknown] oxycodone 5 mg tablet 5 mg PO BID pain 5 days #10 tabs 07/07/22 [Rx Last Taken Unknown] albuterol sulfate 90 mcg/actuation aerosol inhaler (Ventolin HFA) 1 - 2 puff inhalation Q4H PRN PRN Wheezing #1 device 07/10/22 [Rx Last Taken Unknown] carbamazepine 300 mg capsule,extended release [id number] 300 mg PO BID 07/10/22 [History Last Taken Unknown] dexamethasone 6 mg tablet (Decadron) 6 mg PO DAILY 10 days #10 tabs 07/10/22 [Rx Last Taken Unknown] Allergy/AdvReac Type Severity Reaction Status Date / Time Iodinated Contrast Media Allergy Nausea/Vom/ Verified 07/07/22 11:06 [DYEE] Diarrhea Penicillins Allergy Hives Verified 07/07/22 11:06 Sulfa (Sulfonamide Allergy Hives Verified 07/07/22 11:06 Antibiotics) Surgical History (Updated 06/18/22 @ 13:50 by Lalita Rodriguez) H/O knee surgery History of salpingectomy History of tonsillectomy and adenoidectomy Hx of cholecystectomy Social History household members: significant other and children Smoking Status: Current every day smoker tobacco type: cigarettes alcohol intake: current alcohol intake frequency: a few times a week substance use type: does not use ROS ROS ED Constitutional Constitutional ED: Denies chills or fever(s) Eyes Eyes: Denies change in vision ENT ENT ED: Reports rhinorrhea and sore throat Cardiovascular Cardiovascular: Reports chest pain Respiratory/Chest Respiratory/Chest: Denies cough or dyspnea Gastrointestinal Gastrointestinal: Reports nausea; Denies abdominal pain, diarrhea or vomiting Genitourinary Genitourinary ED: Denies dysuria Musculoskeletal Musculoskeletal: Reports myalgias Integumentary Denies rash Neurologic Neurologic: Denies headache(s) Psychiatric Psychiatric: Reports anxiety Hematologic/Lymphatic Hematologic/Lymphatic: Denies easy bleeding or easy bruising EXAM Physical Exam Const Vital Signs: 07/10/22 03:07 07/10/22 03:10 07/10/22 03:12 Temperature 97.8 F Temperature Source Temporal Pulse Rate 125 H Respiratory Rate 20 H Respiratory Effort Short of Breath Short of Breath Respiratory Depth Deep Respiratory Pattern Tachypnea Blood Pressure 124/80 H Blood Pressure Mean 94 Pulse Ox 100 Oxygen Delivery Method Room Air Room Air 07/10/22 04:26 Temperature Temperature Source Pulse Rate 123 H Respiratory Rate 18 Respiratory Effort Respiratory Depth Respiratory Pattern Blood Pressure Blood Pressure Mean Pulse Ox 97 Oxygen Delivery Method Positive well nourished and well developed General Appearance ED: well developed HEENT Reports moist mucous membranes HEENT Narrative: Cobblestoning the posterior pharynx consistent with sinus drainage but no airway edema or compromise Eyes PERRL and EOMs intact bilaterally Neck supple and no JVD Neck Narrative: Positive anterior cervical lymphadenopathy Resp Resp Narrative: Patient has slight tachypnea and breath sounds are diminished throughout with faint wheeze and rhonchi in the bilateral lobes Cardio regular rhythm Rate: tachycardic and other Other Details: Radial pulses are plus 2 out of 4 bilaterally are equal and symmetric GI normal to inspection, nondistended, normoactive bowel sounds, non-tender and non-distended Auscultation: normoactive bowel sounds Palpation: soft Extremity normal to inspection Extremity Narrative: No asymmetric edema no pitting edema negative Homans' sign bilaterally Neuro oriented x3 and CN's II-XII intact bilaterally Sensorium / Orientation: alert Psych Psych Narrative: Patient has a nervous/anxious affect Skin no rashes or lesions noted MDM MDM MDM Narrative Medical decision making narrative: Patient presented to the ER satting in the high 90s on room air but was mildly tachycardic with slight tachypnea. Based on her constellation of symptoms there was concern this could be infectious such as COVID or pneumonia or possibly cardiac in nature. Basic blood work was obtained which showed leukopenia which is consistent with COVID and her rapid viral swab was positive. The patient's chest x-ray showed mild inflammatory changes consistent with her exam diagnosis and history of COVID. Patient's D-dimer was elevated most likely secondary to COVID. We discussed obtaining a CTA because of the elevated D-dimer and her heart rate. Patient states that she does not a CT scan of her chest as her blood test for her heart is normal and there is a reason for her elevated D-dimer and the fact she has COVID. My clinical suspicion for pulm embolus is low at this time and therefore I am okay with patient rejecting the CTA. The patient was hydrated and started on Decadron and her heart rate did reduce. On reevaluation she is resting comfortably with resolution of the tachypnea and her pulse ox remains in the high 90s to 100%. Therefore at this time patient has COVID but she is not in any type of respiratory distress would need for supplemental oxygen and therefore she can be discharged and follow-up on an outpatient basis. Lab Data Attestation: I reviewed the patient's lab results. Labs: Laboratory Results - last 24 hr 07/10/22 07/10/22 07/10/22 03:22 03:22 03:22 WBC 1.8 L RBC 4.19 L Hgb 12.7 Hct 37.5 MCV 89.5 MCH 30.3 MCHC 33.9 RDW Std Deviation 42.8 RDW Coeff of Katt 13.0 Plt Count 178 MPV 9.6 Immature Gran % (Auto) 0.600 Neut % (Auto) 64.1 Lymph % (Auto) 11.2 L [place] % (Auto) 23.5 H Eos % (Auto) 0.0 Baso % (Auto) 0.6 Absolute Neuts (auto) 1.2 L Absolute Lymphs (auto) 0.20 L Nucleated RBC % 0 Differential Comment SCANNED Diff Path Review May foll D-Dimer Quant (PE/DVT) 0.94 H* Sodium 140 Potassium 3.6 Chloride 109 H Carbon Dioxide 24.0 Anion Gap 7 BUN 11 Creatinine 0.87 Estim Creat Clear Calc 84.31 Est GFR (MDRD) Af Amer 98 Est GFR (MDRD) Non-Af 81 BUN/Creatinine Ratio 12.7 Glucose 89 Calcium 8.4 L Magnesium 1.9 Troponin I High Sens 5 Urine Test 07/10/22 03:35 WBC RBC Hgb Hct MCV MCH MCHC RDW Std Deviation RDW Coeff of Katt Plt Count MPV Immature Gran % (Auto) Neut % (Auto) Lymph % (Auto) [place] % (Auto) Eos % (Auto) Baso % (Auto) Absolute Neuts (auto) Absolute Lymphs (auto) Nucleated RBC % Differential Comment Diff Path Review D-Dimer Quant (PE/DVT) Sodium Potassium Chloride Carbon Dioxide Anion Gap BUN Creatinine Estim Creat Clear Calc Est GFR (MDRD) Af Amer Est GFR (MDRD) Non-Af BUN/Creatinine Ratio Glucose Calcium Magnesium Troponin I High Sens Urine Test Negative Radiography Diagnostic Testing: Clinical Impression(s) from Imaging Studies Chest X-Ray 07/10/22 03:45 IMPRESSION: Peribronchial cuffing indicating bronchial wall inflammation/bronchitis. No pneumonia. Electronically Signed: Zi Solis MD at 4:12 EDT Reading Location ID and State: [facility] / [place] Tel , Service support , 2 view chest x-ray as interpreted by the emergency medicine physician reveals mild inflammatory changes without acute infiltrate or pneumothorax Discharge Plan Triage Chief Complaint: Shortness of Breath ED Provider: Truong Boyer Dx/Rx/DC Orders Clinical Impression: COVID-19, Gastroparesis, Dyspnea Instructions: Coronavirus Disease 2019 (COVID-19): Caring for Yourself or Others Prescriptions: New dexamethasone [Decadron] 6 mg tablet 6 mg PO DAILY 10 Days Qty: 10 0RF albuterol sulfate [Ventolin HFA] 90 mcg/actuation HFA aerosol inhaler 1 - 2 puff inhalation Q4H PRN PRN (Reason: Wheezing) Qty: 1 0RF No Action oxycodone 5 mg tablet 5 mg PO BID 5 Days Qty: 10 0RF albuterol sulfate 90 mcg/actuation Hfa Aerosol Inhaler 1 puff INHALATION Q6H PRN (Reason: SOB) carbamazepine 300 mg capsule, ER multiphase 12 hr 300 mg PO BID metoclopramide HCl [Reglan] 5 mg tablet 2.5 mg PO QAC Qty: 45 0RF Rx Instructions: administer 30 minutes before meals Primary Care Provider: Kayley Bland Referrals: Kayley Bland, [Primary Care Provider] - Activity Restrictions/Additional Instructions: Please quarantine for the next 5 days secondary to your COVID diagnosis and return to the ER should you have any further concerns Disposition Disposition: Home, Self Care
[2022-07-10 05:22] VITALS: BP 138/75; PULSE 122; RESP 20; O2SAT 96
[2022-07-13 09:04] LABS: Pathologist Review Reviewed
== END 2022-07-10 05:23 | disposition home or self-care (01) ==
PROVIDERS: Emergency Provider Emergency Medicine; Visit Provider Emergency Medicine
DX: U07.1 COVID-19 (principal); K31.84 Gastroparesis; R06.00 Dyspnea, unspecified; F17.210 Nicotine dependence, cigarettes, uncomplicated
CPT/HCPCS: 71046; 80048; 81025; 83735; 84484; 85025; 85379; 87811; 93005; 96374; 99283; A4216

== ENCOUNTER 2023-01-13 16:13 | Emergency (ER) | payer MEDICAID, SELFPAY ==
[2023-01-13 16:14] VITALS: BP 126/84; PULSE 115; RESP 18; TEMP 35.8; O2SAT 98; BMI 37.8
[2023-01-13 16:50] LABS: Mucous, Urine 0 SEEN /hpf (<or=2+); Red Blood Cells-Urine 0 SEEN /hpf (0-5)
[2023-01-13 16:56] LABS: Absolute Lymphocyte Count 1.59 X10^3/uL (0.83-4.51); Absolute Neutrophil Count 4.7 X10^3/uL (2.0-7.7); Basophil# 0.04 X10^3/uL; Basophil% 0.6 % (0-1); Eosinophil# 0.13 X10^3/uL; Eosinophils% 1.9 % (0-5); Hematocrit 41.2 % (37-47); Hemoglobin 13.6 g/dL (12.0-15.0); Lymphocyte # 1.59 X10^3/ul (0.83-4.51); Lymphocyte % 22.9 % (19-41); Mean Corpuscular Hgb 30.2 pg (27.0-32.0); Mean Corpuscular Volume 91.6 fL (81-99); Mean Platelet Vol. 9.1 fl (6.2-12.0); Monocyte# 0.48 X10^3/uL; Monocyte% 6.9 % (0-10); NRBC Flagged by Analyzer 0 % (0-5); Neutrophil # 4.65 X10^3/uL (2.7-7.7); Neutrophil % 67.1 % (47-70); Platelet Count 323 K/mm3 (150-450); RBC Distribution Width CV 12.9 % (11.6-14.6); White Blood Count 6.9 K/mm3 (4.4-11.0)
[2023-01-13 16:57] LABS: Color, Urine Yellow (Yellow); Glucose, Dipstick Normal (Normal); Ketone-Dipstick Negative (Negative); Leukocyte Esterase-Dipstick 25 /ul (Negative); Nitrite-Dipstick Negative (Negative); Occult Blood-Urine Negative /ul (Negative); Protein-Dipstick Negative (Negative); Specific Gravity, Urine 1.025 (1.002-1.030); Urine Bilirubin Dipstick Negative (Negative); Urine Clarity Clear (Clear); Urine Urobilinogen Normal (Normal)
[2023-01-13 17:05] LABS: Bacteria RARE /hpf (None Seen); Squamous Epithelial Cells - UA 5-10 SEEN /hpf (5-10); White Blood Cells 0-5 SEEN /hpf (0-5)
[2023-01-13 17:08] LABS: Anion Gap 6 (5-15); BUN 14 mg/dL (7-18); BUN/Creat Ratio 19.9 RATIO (10-20); Chloride 110 mmol/L (98-107); EST Glomerular Filtration Rate 102 mL/min (>60); Est Glom Filt Rate - Afr Amer 124 mL/min (>60); Estimated Creatinine Clearance 104.78 ml/min; Glucose 76 mg/dL (74-106); Potassium 3.8 mmol/L (3.5-5.1); Sodium Level 142 mmol/L (136-145)
[2023-01-13 18:17] LABS: Internal QC Validated? YES +Cl - CLEAR BKGD; Pregnancy, Serum, hCG Quali. NEGATIVE Negative
[2023-01-13] MEDS: Morphine 4 MG/ML Syringe IV (19:21)
[2023-01-13] MEDS: Ondansetron 4 MG/2 ML Vial IV (19:21)
[2023-01-13] MEDS: 0.9% Normal Saline 1,000 ML 1000 ML IV (19:21)
[2023-01-13 19:40] LABS: AST(SGOT) 14 U/L (15-37); Alanine Aminotransfer ALT/SGPT 33 U/L (13-56); Alkaline Phosphatase 104 U/L (45-117); Bilirubin, Direct 0.06 mg/dL (0.00-0.30); Globulin 3.5 g/dL (2.2-4.2); Lipase 127 U/L (73-393); Protein, Total 6.5 g/dL (6.4-8.2)
--- NOTE | 2023-01-13 23:42 | ED.VIS.GI ---
HPI HPI - GI History of Present Illness Chief Complaint: Abd Pain Informant: patient Abdominal Pain/Flank Pain Onset: Days (4) Context: Gradual Onset Timing: Continuous Quality: Aching Location: Epigastric, RUQ and LUQ Worsened by: - (Everything) Relieved by: Nothing Nausea/Vomiting/Emesis GI Symptom: Positive for Nausea and Vomiting Quality: Positive for Nonbilious; Negative for Blood streaks, Coffee ground or Hematemesis Diarrhea/Melena/Hematochezia GI Symptom: Positive for Diarrhea; Negative for Melena or Hematochezia Associated Symptoms Associated Symptoms: Negative for Dysuria, Frequency or Hematuria LMP: 2 weeks ago Narrative Narrative: Presents with abdominal pain for the last 4 days. Patient states it is gradually gotten worse. Patient's vitals counseled. Patient states the pain is over the upper abdomen. Patient states everything makes it worse and nothing makes it better patient admits to some nausea and vomiting. Patient denies any hematemesis or coffee-ground emesis. Patient admits to some diarrhea but denies any melena or hematochezia. Patient denies any dysuria, frequency, or hematuria. Patient denies any abnormal vaginal bleeding or discharge. Patient states her last menstrual period was approximately 2 weeks ago. [facility] Medical History Alcohol use Anxiety Arthritis Asthma Back pain Bipolar disorder Depression Diarrhea Easy bruising Excessive bleeding Gastric reflux Gastroparesis Leg cramps Loss of consciousness Migraine headache Nausea Restless legs Seizures Smoker Wears glasses Home Medications albuterol sulfate 90 mcg/actuation aerosol inhaler 1 puff inhalation Q6H PRN SOB 06/18/22 [History Last Taken Unknown] albuterol sulfate 90 mcg/actuation aerosol inhaler (Ventolin HFA) 1 - 2 puff inhalation Q4H PRN PRN Wheezing #1 device 07/10/22 [Rx Last Taken Unknown] carbamazepine 300 mg capsule,extended release [id number] 300 mg PO BID 07/10/22 [History Last Taken Unknown] dexamethasone 6 mg tablet (Decadron) 6 mg PO DAILY 10 days #10 tabs 07/10/22 [Rx Last Taken Unknown] pantoprazole 40 mg tablet,delayed release (Protonix) 40 mg PO DAILY #30 tabs 12/31/22 [Rx Last Taken Unknown] ondansetron 4 mg disintegrating tablet 4 mg PO Q8H PRN PRN Nausea #10 tabs 01/13/23 [Rx Last Taken Unknown] Allergy/AdvReac Type Severity Reaction Status Date / Time Iodinated Contrast Media Allergy Nausea/Vom/ Verified 01/13/23 16:16 [DYEE] Diarrhea Penicillins Allergy Hives Verified 01/13/23 16:16 Sulfa (Sulfonamide Allergy Hives Verified 01/13/23 16:16 Antibiotics) Family History Grandfather Cancer pancreatic Grandfather Cancer unknown Father COPD (chronic obstructive pulmonary disease) Hypertension Mother Diabetes Thyroid disorder Surgical History H/O knee surgery History of salpingectomy History of tonsillectomy and adenoidectomy Hx of cholecystectomy Social History household members: significant other and children Smoking Status: Light Smoker (<10/day) substance use type: does not use ROS ROS ED Constitutional Constitutional ED: Denies chills or fever(s) Eyes Eyes: Denies blurry vision or change in vision ENT ENT ED: Denies rhinorrhea or sore throat Cardiovascular Cardiovascular: Denies chest pain or palpitations Respiratory/Chest Respiratory/Chest: Denies cough or dyspnea Gastrointestinal Gastrointestinal: Reports abdominal pain, diarrhea, nausea and vomiting Genitourinary Genitourinary ED: Denies dysuria or hematuria Musculoskeletal Musculoskeletal: Reports back pain; Denies neck pain Integumentary Denies abscess or rash Neurologic Neurologic: Denies headache(s) or weakness Allergic/Immunologic Allergic/Immunologic ED: Denies mouth swelling or urticaria EXAM Physical Exam Const Vital Signs: 01/13/23 16:14 Temperature 96.4 F L Temperature Source Temporal Pulse Rate 115 H Respiratory Rate 18 Blood Pressure 126/84 H Blood Pressure Mean 98 Pulse Ox 98 Oxygen Delivery Method Room Air Positive well nourished and well developed General Appearance ED: well developed HEENT Reports moist mucous membranes Neck supple and no JVD Resp normal respiratory effort and clear to auscultation bilaterally Cardio regular rate, regular rhythm and no murmurs GI normal to inspection, nondistended, normoactive bowel sounds Palpation: soft and tender epigastric, LUQ and RUQ; Negative for guarding or rebound tenderness present Extremity normal to inspection General Extremety ED: Negative for edema or tenderness General Extremity: Negative for edema Neuro oriented x3, CN's II-XII intact bilaterally and no sensory deficits noted Sensorium / Orientation: alert Motor Exam: strength 5/5 throughout Psych mental status grossly normal Skin no rashes or lesions noted MDM MDM MDM Narrative Medical decision making narrative: Differential diagnosis includes gastritis, pancreatitis, gastroenteritis, transaminitis, pyelonephritis, urinary tract infection, and colitis. CBC will be obtained to assess for leukocytosis and anemia. Basic metabolic profile will be obtained to assess for electrolyte abnormality and renal function. Liver profile will be obtained to assess for hepatic function. Lipase will be obtained to assess for pancreatitis. Serum hCG will be obtained to assess for status. Urinalysis will be obtained to assess for urinary tract infection. Lab Data Attestation: I reviewed the patient's lab results. Lab results narrative: CBC was reviewed and was within normal limits. Basic metabolic profile was reviewed and was within normal limits. Liver profile was reviewed and was within normal limits. Serum hCG was reviewed and was negative. Urinalysis was reviewed. There is no evidence of urinary tract infection or hematuria. Labs: Laboratory Results - last 24 hr 01/13/23 01/13/23 01/13/23 16:25 16:25 16:25 WBC 6.9 RBC 4.50 Hgb 13.6 Hct 41.2 MCV 91.6 MCH 30.2 MCHC 33.0 RDW Std Deviation 43.0 RDW Coeff of Katt 12.9 Plt Count 323 MPV 9.1 Immature Gran % (Auto) 0.600 Neut % (Auto) 67.1 Lymph % (Auto) 22.9 [place] % (Auto) 6.9 Eos % (Auto) 1.9 Baso % (Auto) 0.6 Absolute Neuts (auto) 4.7 Absolute Lymphs (auto) 1.59 Nucleated RBC % 0 Sodium 142 Potassium 3.8 Chloride 110 H Carbon Dioxide 26.0 Anion Gap 6 BUN 14 Creatinine 0.70 Estim Creat Clear Calc 104.78 Est GFR (MDRD) Af Amer 124 Est GFR (MDRD) Non-Af 102 BUN/Creatinine Ratio 19.9 Glucose 76 Calcium 9.0 Total Bilirubin Direct Bilirubin AST ALT Alkaline Phosphatase Total Protein Albumin Globulin Lipase Serum , Qual NEGATIVE Urine Color Urine Clarity Urine pH Ur Specific Beatrice Urine Protein Urine Glucose (UA) Urine Ketones Urine Occult Blood Urine Nitrite Urine Bilirubin Urine Urobilinogen Ur Leukocyte Esterase Urine RBC Urine WBC Ur Squamous Epith Cells Urine Bacteria Urine Mucus 01/13/23 01/13/23 16:25 16:25 WBC RBC Hgb Hct MCV MCH MCHC RDW Std Deviation RDW Coeff of Katt Plt Count MPV Immature Gran % (Auto) Neut % (Auto) Lymph % (Auto) [place] % (Auto) Eos % (Auto) Baso % (Auto) Absolute Neuts (auto) Absolute Lymphs (auto) Nucleated RBC % Sodium Potassium Chloride Carbon Dioxide Anion Gap BUN Creatinine Estim Creat Clear Calc Est GFR (MDRD) Af Amer Est GFR (MDRD) Non-Af BUN/Creatinine Ratio Glucose Calcium Total Bilirubin 0.30 Direct Bilirubin 0.06 AST 14 L ALT 33 Alkaline Phosphatase 104 Total Protein 6.5 Albumin 3.0 L Globulin 3.5 Lipase 127 Serum , Qual Urine Color Yellow Urine Clarity Clear Urine pH 6.0 Ur Specific Beatrice 1.025 Urine Protein Negative Urine Glucose (UA) Normal Urine Ketones Negative Urine Occult Blood Negative Urine Nitrite Negative Urine Bilirubin Negative Urine Urobilinogen Normal Ur Leukocyte Esterase 25 H Urine RBC 0 SEEN Urine WBC 0-5 SEEN Ur Squamous Epith Cells 5-10 SEEN Urine Bacteria RARE Urine Mucus 0 SEEN Treatment and Re-Evaluation :: Patient was given IV fluids, morphine, and Zofran. Patient is feeling better on reevaluation. Patient was advised of her findings. Patient was instructed to follow-up with her primary care physician in 5 to 7 days. Patient was given a prescription for Zofran. Patient was instructed to start with a liquid diet and advance as tolerated. Patient understood and was agreeable with the plan. All questions were answered. Discharge Plan Triage Chief Complaint: Abd Pain ED Provider: Edilson Michael Dx/Rx/DC Orders Clinical Impression: Abdominal pain, Gastroparesis Instructions: ED Abdominal Pain Unkn Cause Fem Prescriptions: New ondansetron [ondansetron] 4 mg tablet,disintegrating 4 mg PO Q8H PRN PRN (Reason: Nausea) Qty: 10 0RF No Action albuterol sulfate 90 mcg/actuation Hfa Aerosol Inhaler 1 puff INHALATION Q6H PRN (Reason: SOB) carbamazepine 300 mg capsule, ER multiphase 12 hr 300 mg PO BID dexamethasone [Decadron] 6 mg tablet 6 mg PO DAILY 10 Days Qty: 10 0RF albuterol sulfate [Ventolin HFA] 90 mcg/actuation HFA aerosol inhaler 1 - 2 puff inhalation Q4H PRN PRN (Reason: Wheezing) Qty: 1 0RF pantoprazole [Protonix] 40 mg tablet,delayed release (DR/EC) 40 mg PO DAILY Qty: 30 2RF Primary Care Provider: Kayley Bland Referrals: Kayley Bland DO [Primary Care Provider] - Disposition Disposition: Home, Self Care Discharge Date/Time: 01/13/23 21:31
== END 2023-01-13 21:31 | disposition home or self-care (01) ==
LOC: ED 19:05
PROVIDERS: Emergency Provider Emergency Medicine; Visit Provider Emergency Medicine
DX: R10.9 Unspecified abdominal pain (principal); K31.84 Gastroparesis; F17.200 Nicotine dependence, unspecified, uncomplicated
CPT/HCPCS: 80048; 80076; 81001; 83690; 84703; 85025; 96374; 96375; 99283; J7030; A4216; J2405

== ENCOUNTER 2023-05-22 23:29 | Emergency (ER) | payer MEDICAID, SELFPAY ==
[2023-05-22 23:30] VITALS: BP 158/131; PULSE 108; RESP 15; TEMP 36.5; O2SAT 97
[2023-05-22 23:35] VITALS: BMI 38.7
--- NOTE | 2023-05-22 23:50 | RAD_ITS ---
EXAM: XR RIGHT ANKLE COMPLETE, 3 OR MORE VIEWS CLINICAL INDICATION: INJURY TECHNIQUE: Frontal, lateral and oblique views of the right ankle. COMPARISON: No relevant prior studies available. FINDINGS: BONES/JOINTS: Unremarkable. No acute fracture. No subluxation. Normal alignment. Preservation of the joint space. No sclerotic or destructive changes observed. SOFT TISSUES: Unremarkable. No soft tissue swelling or gas. No radiopaque foreign body. RAD/Ankle min 3 Views IMPRESSION: Negative right ankle x-rays. Electronically Signed: Dennis Agosto MD at 0:19 EDT ,
--- NOTE | 2023-05-23 00:29 | ED.VIS.LOWEX ---
HPI History of Present Illness Chief Complaint: Lower Extremity Injury Informant: patient Narrative Narrative: Patient presents with sore right ankle. Patient states she was walking out her friends back door. She was standing under her right ankle. She took weight off her left to take a step and she accidentally rolled her right ankle over. She describes an inversion injury. It has pain primarily on the lateral aspect. She states you can even touch the skin. She had an ice pack on it but it hurt too much. She has trouble bearing weight but had to to get in here. No history of brittle bones. Only medication is BuSpar which she takes for my stomach. She does have a history of gastroparesis but no history of diabetes. She has never had problems with nonsteroidals. She had no other injury when she fell. [facility] Medical History Alcohol use Anxiety Arthritis Asthma Back pain Bipolar disorder Depression Diarrhea Easy bruising Excessive bleeding Gastric reflux Gastroparesis Leg cramps Loss of consciousness Migraine headache Nausea Restless legs Seizures Smoker Wears glasses Home Medications albuterol sulfate 90 mcg/actuation aerosol inhaler 1 puff inhalation Q6H PRN SOB 06/18/22 [History Last Taken Unknown] albuterol sulfate 90 mcg/actuation aerosol inhaler (Ventolin HFA) 1 - 2 puff inhalation Q4H PRN PRN Wheezing #1 device 07/10/22 [Rx Last Taken Unknown] carbamazepine 300 mg capsule,extended release [id number] 300 mg PO BID 07/10/22 [History Last Taken Unknown] dexamethasone 6 mg tablet (Decadron) 6 mg PO DAILY 10 days #10 tabs 07/10/22 [Rx Last Taken Unknown] pantoprazole 40 mg tablet,delayed release (Protonix) 40 mg PO DAILY #30 tabs 12/31/22 [Rx Last Taken Unknown] ondansetron 4 mg disintegrating tablet 4 mg PO Q8H PRN PRN Nausea #10 tabs 01/13/23 [Rx Last Taken Unknown] naproxen 500 mg tablet 500 mg PO BID #14 tabs 05/23/23 [Rx Last Taken Unknown] Allergy/AdvReac Type Severity Reaction Status Date / Time Iodinated Contrast Media Allergy Nausea/Vom/ Verified 05/22/23 23:36 [DYEE] Diarrhea Penicillins Allergy Hives Verified 05/22/23 23:36 Sulfa (Sulfonamide Allergy Hives Verified 05/22/23 23:36 Antibiotics) Family History Grandfather Cancer pancreatic Grandfather Cancer unknown Father COPD (chronic obstructive pulmonary disease) Hypertension Mother Diabetes Thyroid disorder Surgical History H/O knee surgery History of salpingectomy History of tonsillectomy and adenoidectomy Hx of cholecystectomy Social History household members: significant other and children Smoking Status: Light Smoker (<10/day) substance use type: does not use ROS ROS ED Constitutional Constitutional ED: Denies chills or fever(s) Cardiovascular Cardiovascular: Denies chest pain or palpitations Gastrointestinal Gastrointestinal: Denies nausea or vomiting Musculoskeletal Musculoskeletal: Reports arthralgias; Denies back pain, myalgias or neck pain Integumentary Denies abscess, Abrasions or rash Neurologic Neurologic: Denies paresthesias or weakness Psychiatric Psychiatric: Reports anxiety Hematologic/Lymphatic Hematologic/Lymphatic: Denies easy bleeding or easy bruising Allergic/Immunologic Allergic/Immunologic ED: Denies urticaria EXAM Physical Exam Narrative Exam Narrative: Patient is awake alert no acute distress. HEENT shows no sign of trauma. Neck is supple free range of motion without pain. Lungs are clear bilaterally and saturations are normal at 97% on room air showing no hypoxia. Heart is regular. Rate about 90-95. Patient is a bit anxious due to her injury. Abdomen is benign. Extremities show no deformity. There is some swelling over the area of the lateral malleolus of the right ankle. She has skin sensitivity over in that area. But no apparent tenderness at the fifth metatarsal or calcaneus. No tenderness more proximally in the leg. I am unable to stress the ankle because just attempting to do this and touching the foot causes pain and she pulls away. Dorsalis pedis and posterior pulses are intact. Capillary refill is normal. There is no erythema or rash. No sign of infection. Neurologically she has distal sensation intact. Const Vital Signs: 05/22/23 23:30 Temperature 97.7 F L Temperature Source Temporal Pulse Rate 108 H Respiratory Rate 15 Blood Pressure 158/131 H Blood Pressure Mean 140 Pulse Ox 97 Oxygen Delivery Method Room Air MDM MDM MDM Narrative Medical decision making narrative: My independent interpretation of the patient's three-view x-ray of her right ankle shows no sign of fracture or dislocation. Final reading is negative right ankle x-ray. There is no indication of fracture. Difficult to assess ligament stability. We will place her in an Aircast. Nonsteroidals and ice are recommended. Elevation is recommended. If she is not better in a week or 2 she should have repeat x-ray. If she develops new or different symptoms she should return. Radiography Diagnostic Testing: Clinical Impression(s) from Imaging Studies Ankle X-Ray 05/22/23 23:50 IMPRESSION: Negative right ankle x-rays. Electronically Signed: Dennis Agosto MD at 0:19 EDT , Discharge Plan Triage Chief Complaint: Lower Extremity Injury ED Provider: Domenic Dos Santos Dx/Rx/DC Orders Clinical Impression: Inversion sprain of right ankle Instructions: ED Ankle Sprain (Adult) Prescriptions: New naproxen 500 mg tablet 500 mg PO BID Qty: 14 0RF No Action albuterol sulfate 90 mcg/actuation Hfa Aerosol Inhaler 1 puff INHALATION Q6H PRN (Reason: SOB) carbamazepine 300 mg capsule, ER multiphase 12 hr 300 mg PO BID dexamethasone [Decadron] 6 mg tablet 6 mg PO DAILY 10 Days Qty: 10 0RF albuterol sulfate [Ventolin HFA] 90 mcg/actuation HFA aerosol inhaler 1 - 2 puff inhalation Q4H PRN PRN (Reason: Wheezing) Qty: 1 0RF ondansetron [ondansetron] 4 mg tablet,disintegrating 4 mg PO Q8H PRN PRN (Reason: Nausea) Qty: 10 0RF pantoprazole [Protonix] 40 mg tablet,delayed release (DR/EC) 40 mg PO DAILY Qty: 30 2RF Primary Care Provider: Kayley Bland Referrals: Kayley Bland, DO [Primary Care Provider] - 1 Week if not improving Disposition Disposition: Home, Self Care
[2023-05-23 00:35] VITALS: PULSE 105; RESP 15; O2SAT 97
[2023-05-23] MEDS: Naproxen 500 MG Tablet PO (00:54)
== END 2023-05-23 01:11 | disposition home or self-care (01) ==
PROVIDERS: Emergency Provider Emergency Medicine; Visit Provider Emergency Medicine
DX: S93.401A Sprain of unspecified ligament of right ankle, initial encounter (principal); F17.200 Nicotine dependence, unspecified, uncomplicated; X58.XXXA Exposure to other specified factors, initial encounter
CPT/HCPCS: 73610; 99283

== ENCOUNTER 2023-09-21 13:55 | Emergency (ER) | payer MEDICAID, SELFPAY ==
[2023-09-21 13:56] VITALS: BP 83/69; PULSE 145; RESP 24; TEMP 35.9; O2SAT 92; BMI 37.2
[2023-09-21 14:07] VITALS: BP 113/85; PULSE 114; RESP 20; O2SAT 98
--- NOTE | 2023-09-21 14:14 | EKG12_ITS ---
Test Reason : TACHY Blood Pressure : / mmHG Vent. Rate : 106 BPM Atrial Rate : 106 BPM P-R Int : 116 ms QRS Dur : 086 ms QT Int : 336 ms P-R-T Axes : 058 074 041 degrees QTc Int : 446 ms Sinus tachycardia Otherwise normal ECG Confirmed by DILIP WALTERS, LANE ([id number]), commissioning editor CHRISTY SOOD ([id number]) on 09/22/2023 11:08:14 AM Referred By: Confirmed By:LANE CHERRY MD
--- NOTE | 2023-09-21 14:18 | EX.ED.DYSGE1 ---
HPI <WENDIE Greenfield - Last Filed: 09/21/23 16:17> History of Present Illness Chief Complaint: Flank Pain Narrative Narrative: 33-year-old female with past medical history of gastroparesis, anxiety presents with right-sided body pain. She states it hurts in her arm, right chest and flank, and right leg. It feels deep like bone pain. She was seen in [place] ED yesterday and had a negative CT and blood work. She states she was having hot and cold flashes last night and her significant other thought she was confused in bed last night. She presents because the pain is constant and unchanging. She also has discomfort under her left breast. No shortness of breath. She has chronic nausea and vomiting from gastroparesis which is unchanged. She takes no medication for this. She is having her usual 3-5 nonbloody loose stools per day. No urinary symptoms. [facility] <WENDIE Greenfield - Last Filed: 09/21/23 16:17> [facility] Medical History (Updated 09/21/23 @ 16:16 by WENDIE Greenfield) Alcohol use Anxiety Arthritis Asthma Back pain Bipolar disorder Depression Diarrhea Easy bruising Excessive bleeding Gastric reflux Gastroparesis Leg cramps Loss of consciousness Migraine headache Nausea Restless legs Right ankle pain Right ankle sprain Seizures Smoker Wears glasses Home Medications buspirone 5 mg tablet 5 mg PO TID 06/08/23 [History Last Taken Unknown] clonazepam 1 mg tablet 1 mg PO .once a day 06/08/23 [History Last Taken Unknown] Allergy/AdvReac Type Severity Reaction Status Date / Time Iodinated Contrast Media Allergy Nausea/Vom/ Verified 05/22/23 23:36 [DYEE] Diarrhea Penicillins Allergy Hives Verified 05/22/23 23:36 Sulfa (Sulfonamide Allergy Hives Verified 05/22/23 23:36 Antibiotics) Family History Grandfather Cancer pancreatic Grandfather Cancer unknown Father COPD (chronic obstructive pulmonary disease) Hypertension Mother Diabetes Thyroid disorder Surgical History H/O knee surgery History of salpingectomy History of tonsillectomy and adenoidectomy Hx of cholecystectomy Social History (Updated 06/08/23 @ 14:46 by Salma Chu) household members: significant other and children Smoking Status: Former smoker quit date: 04/24/23 alcohol intake: never substance use type: does not use ROS <WENDIE Greenfield - Last Filed: 09/21/23 16:17> ROS ED ROS Narrative Constitutional: Positive for subjective fever, chills, malaise. CVS: Positive for chest pain. Negative for palpitations, syncope. Respiratory: Negative for shortness of breath, cough. GI: Negative for abdominal pain, nausea, vomiting, diarrhea. : Negative for dysuria, hematuria or frequency. Neuro: Negative for headache. EXAM <WENDIE Greenfield - Last Filed: 09/21/23 16:17> Physical Exam Narrative Exam Narrative: CONST: Patient sitting in no acute distress. EYES: Normal inspection. ENT: Normal inspection, moist mucous membranes. NECK: Normal inspection. RESP: No respiratory distress, CTAB. CVS: Rapid but regular rhythm, no murmur, no gallop. ABD: Soft and nontender, no guarding or rebound, nondistended, no hepatosplenomegaly. Back: Normal inspection, no CVA tenderness. SKIN: Color normal, no rash, warm, dry, intact. EXTREMITIES: Normal appearance, no pedal edema. Full ROM all extremities, 5/5 strength, 2+ radial and DP pulses. NEURO: Oriented x4. PSYCH: Anxious. Const Vital Signs: 09/21/23 13:56 09/21/23 14:07 09/21/23 14:39 Temperature 96.6 F L Temperature Source Temporal Pulse Rate 145 H 114 H 108 H Respiratory Rate 24 H 20 H 11 L Blood Pressure 83/69 L 113/85 H 126/79 H Blood Pressure Mean 73 94 94 Pulse Ox 92 98 99 Oxygen Delivery Method Room Air Room Air Room Air 09/21/23 14:58 09/21/23 15:46 Temperature 96.6 F L Temperature Source Temporal Pulse Rate 103 H 64 Respiratory Rate 23 H 18 Blood Pressure 81/64 L 106/78 Blood Pressure Mean 69 87 Pulse Ox 100 99 Oxygen Delivery Method Room Air Room Air <Dr. Jeffery Araiza DO - Last Filed: 09/21/23 15:42> Physical Exam Const Vital Signs: 09/21/23 13:56 09/21/23 14:07 09/21/23 14:39 Temperature 96.6 F L Temperature Source Temporal Pulse Rate 145 H 114 H 108 H Respiratory Rate 24 H 20 H 11 L Blood Pressure 83/69 L 113/85 H 126/79 H Blood Pressure Mean 73 94 94 Pulse Ox 92 98 99 Oxygen Delivery Method Room Air Room Air Room Air 09/21/23 14:58 09/21/23 15:46 Temperature 96.6 F L Temperature Source Temporal Pulse Rate 103 H 64 Respiratory Rate 23 H 18 Blood Pressure 81/64 L 106/78 Blood Pressure Mean 69 87 Pulse Ox 100 99 Oxygen Delivery Method Room Air Room Air [facility] <WENDIE Greenfield - Last Filed: 09/21/23 16:17> [facility] Narrative Medical decision making narrative: Patient presents with bodyaches. She said it is right-sided. She says her left wrist hurts when she hurts all over. She is giving some alternating stories. She appears well and nontoxic. Initially was hypertensive and tachycardic which improved with fluids. Other than tachycardia her exam is benign. She has no abdominal or flank tenderness. Labs show leukopenia at 2.3, hemoglobin 16.1 likely from dehydration. Potassium slightly low at 3.3, normal renal function and LFTs. EKG is nonischemic and troponin is normal. I did not order imaging because [facility] records show she had a CT scan of her chest abdomen and pelvis yesterday which was negative for any acute findings. Her symptoms are the same so she does not require new imaging. Her COVID-19 test yesterday was positive. I suspect this is the source of her symptoms even though her swab here is negative. She was treated with fluids, Toradol, and Tylenol and vitals are stable. I recommended symptomatic treatment at home and she was discharged in stable condition. Lab Data Attestation: I reviewed the patient's lab results. Labs: Laboratory Results - last 24 hr 09/21/23 14:25 WBC 2.3 L RBC 5.35 Hgb 16.1 H Hct 48.0 H MCV 89.7 MCH 30.1 MCHC 33.5 RDW Std Deviation 43.8 RDW Coeff of Katt 13.4 Plt Count 281 MPV 8.8 Immature Gran % (Auto) 0.400 Neut % (Auto) 33.4 L Lymph % (Auto) 32.9 [place] % (Auto) 31.6 H Eos % (Auto) 0.4 Baso % (Auto) 1.3 H Absolute Neuts (auto) 0.8 L Absolute Lymphs (auto) 0.76 L Nucleated RBC % 0 Differential Comment SCANNED Sodium 139 Potassium 3.3 L Chloride 105 Carbon Dioxide 29.0 Anion Gap 5 BUN 7 Creatinine 0.95 Estim Creat Clear Calc 76.50 Est GFR (MDRD) Af Amer 88 Est GFR (MDRD) Non-Af 73 BUN/Creatinine Ratio 7.4 L Glucose 70 L Calcium 8.5 Total Bilirubin 0.40 AST 14 L ALT 26 Alkaline Phosphatase 118 H Troponin I High Sens 5 Total Protein 8.0 Albumin 3.7 Globulin 4.3 H Albumin/Globulin Ratio 0.9 Urine Color Yellow Urine Clarity Sl. Cloudy Urine pH 6.0 Ur Specific [place] 1.025 Urine Protein 30 H Urine Glucose (UA) Normal Urine Ketones 5 H Urine Occult Blood 250 H Urine Nitrite Negative Urine Bilirubin Negative Urine Urobilinogen 1 H Ur Leukocyte Esterase 100 H Urine RBC 25-50 SEEN Urine WBC 10-25 SEEN Ur Squamous Epith Cells 10-25 SEEN Urine Bacteria 2+ Urine Mucus 0 SEEN Urine Test Negative EKG Initial EKG: Attestation: I personally reviewed and interpreted this EKG as follows: Interpretation: No Acute Injury Pattern and Sinus Tachycardia Comments: Sinus tachycardia at 106 bpm No acute ischemic changes <Dr. Jeffery Araiza, DO - Last Filed: 09/21/23 15:42> [facility] Lab Data Labs: Laboratory Results - last 24 hr 09/21/23 14:25 WBC 2.3 L RBC 5.35 Hgb 16.1 H Hct 48.0 H MCV 89.7 MCH 30.1 MCHC 33.5 RDW Std Deviation 43.8 RDW Coeff of Katt 13.4 Plt Count 281 MPV 8.8 Immature Gran % (Auto) 0.400 Neut % (Auto) 33.4 L Lymph % (Auto) 32.9 [place] % (Auto) 31.6 H Eos % (Auto) 0.4 Baso % (Auto) 1.3 H Absolute Neuts (auto) 0.8 L Absolute Lymphs (auto) 0.76 L Nucleated RBC % 0 Differential Comment SCANNED Sodium 139 Potassium 3.3 L Chloride 105 Carbon Dioxide 29.0 Anion Gap 5 BUN 7 Creatinine 0.95 Estim Creat Clear Calc 76.50 Est GFR (MDRD) Af Amer 88 Est GFR (MDRD) Non-Af 73 BUN/Creatinine Ratio 7.4 L Glucose 70 L Calcium 8.5 Total Bilirubin 0.40 AST 14 L ALT 26 Alkaline Phosphatase 118 H Troponin I High Sens 5 Total Protein 8.0 Albumin 3.7 Globulin 4.3 H Albumin/Globulin Ratio 0.9 Urine Color Yellow Urine Clarity Sl. Cloudy Urine pH 6.0 Ur Specific [place] 1.025 Urine Protein 30 H Urine Glucose (UA) Normal Urine Ketones 5 H Urine Occult Blood 250 H Urine Nitrite Negative Urine Bilirubin Negative Urine Urobilinogen 1 H Ur Leukocyte Esterase 100 H Urine RBC 25-50 SEEN Urine WBC 10-25 SEEN Ur Squamous Epith Cells 10-25 SEEN Urine Bacteria 2+ Urine Mucus 0 SEEN Urine Test Negative Treatment and Re-Evaluation :: ED attending note: I evaluated the patient in conjunction with the CHRISTIE. I agree with his/her statements and above findings. I have personally performed a face to face assessment of the patient and have reviewed the CHRISTIE Note. I performed a substantive portion of the visit including all aspects of the following. I personally saw the patient performed chart review, physical exam, reviewed labs, imaging (if obtained), and formulated a treatment and management plan. Brief history: 33-year-old female here with concern for body aches, feeling unwell, pain all over, right-sided pain. The patient denies recent surgery in the last 4 weeks or immobilization in the last 3 days, denies previous diagnosis of DVT or PE, hemoptysis, unilateral leg swelling or malignancy with treatment the last 6 months or palliative. No estrogen use noted. Patient denies sudden onset of pain, no tearing sensation, no migratory symptoms, no new numbness, weakness or loss of sensation. Patient denies family history or personal history of Connective tissue disorders (Marfan's Syndrome, Esvin Danlos etc). Of note patient had a positive COVID-19 test yesterday. Exam: Nursing triage notes reviewed, Vital signs reviewed Constitutional: please see mdm HENT: MMM Eyes: Pupils equal round and reactive to light, Extraocular muscles intact Neck: No stridor, no JVD, full neck ROM Lungs: Clear to auscultation, No wheezing or rales. No increased work of breathing, no conversational dyspnea, no accessory muscle use, no nasal flaring. No respiratory distress noted Heart: Regular rate and rhythm, No murmurs, No rubs and No gallops, 2+ distal pulses (radial, femoral, posterior tibial) in all extremities Abdomen: Soft, there is no tenderness, rigidity, rebound or guarding, no obvious peritoneal signs, no palpable pulsatile abdominal masses, no auscultated abdominal bruit : No CVAT Extremities: No edema Neuro: No focal neurological deficits, cranial nerves II through XII intact, 5/5 strength in all extremities. Intact sensation to light touch in all extremities, 2+ reflexes bilateral patella dens. Normal gait. No ataxia. Skin: No rash or lesions noted MDM/plan: Chief Complaint: Body aches, right-sided pain External records reviewed: Seen in the ED yesterday. CT scan of the chest was negative for PE, aortic aneurysm, no pericardial effusion, no mass. Flu was negative, COVID-positive CMP with mild hyponatremia, hypokalemia, no EWA,. No significant liver abnormalities, no anion gap urinalysis was negative. Factors affecting care: COVID 19, bipolar disorder Social determinants of health: hx of Mental health disorder History obtained from others: none Consults: None at this time MDM narrative: Patient was initially hypotensive, tachycardic tachypneic this improved without significant intervention other than fluids. I suspect her presentation secondary to COVID-19. Will obtain labs images including a chest x-ray to determine if there is any significant changes in her underlying physiology from yesterday. The patient is not hypoxic she will be treated as a mild COVID-19 infection likely discharge after hydration as long as her vital signs improved. I Have a low suspicion for PE or aortic dissection at this time given the patient's lack of risk factors and physical exam findings I would suggest these life-threatening etiologies. There is no indication for advanced imaging of the chest abdomen pelvis at this time. Patient had a CT scan of her chest on pelvis yesterday which was negative for any acute finding with the same symptoms. Shared decision making: I will have a discussion with the patient and or visitors regarding risk/benefits of further testing or admission. They will be made aware of of the risk/benefits inherent in this decision they will be given the opportunity to voice understanding. Discharge Plan Triage Chief Complaint: Flank Pain ED Midlevel Provider: Denisa Walker ED Provider: Jeffery Araiza Dx/Rx/DC Orders Clinical Impression: Myalgia, Chest pain, COVID-19 Instructions: Communicating About Pain Prescriptions: No Action buspirone 5 mg tablet 5 mg PO TID Patient Comments: TAKE 1 TABLET BY MOUTH THREE TIMES A DAY clonazepam 1 mg tablet 1 mg PO .once a day Primary Care Provider: Kayley Bland Referrals: Kayley Bland, [Primary Care Provider] - Activity Restrictions/Additional Instructions: Take Tylenol or ibuprofen every 6 hours as needed for pain Disposition Disposition: Home, Self Care Discharge Date/Time: 09/21/23 16:16
[2023-09-21 14:33] LABS: Mucous, Urine 0 SEEN /hpf (<or=2+)
[2023-09-21 14:35] LABS: Absolute Lymphocyte Count 0.76 X10^3/uL (0.83-4.51); Absolute Neutrophil Count 0.8 X10^3/uL (2.0-7.7); Basophil# 0.03 X10^3/uL; Basophil% 1.3 % (0-1); Eosinophil# 0.01 X10^3/uL; Eosinophils% 0.4 % (0-5); Hemoglobin 16.1 g/dL (12.0-15.0); Lymphocyte # 0.76 X10^3/ul (0.83-4.51); Lymphocyte % 32.9 % (19-41); Mean Corp Hgb Conc 33.5 g/dL (32-36); Mean Corpuscular Hgb 30.1 pg (27.0-32.0); Mean Corpuscular Volume 89.7 fL (81-99); Mean Platelet Vol. 8.8 fl (6.2-12.0); Monocyte# 0.73 X10^3/uL; Monocyte% 31.6 % (0-10); NRBC Flagged by Analyzer 0 % (0-5); Neutrophil # 0.77 X10^3/uL (2.7-7.7); Neutrophil % 33.4 % (47-70); POSITIVE DIFFERENTIAL YES; Platelet Count 281 K/mm3 (150-450); RBC Distribution Width CV 13.4 % (11.6-14.6); RBC Distribution Width SD 43.8 fl (35.1-43.9); Red Blood Count 5.35 M/mm3 (4.2-5.4); White Blood Count 2.3 K/mm3 (4.4-11.0)
[2023-09-21] MEDS: Ketorolac 15 MG/ML Vial IV (14:35)
[2023-09-21 14:37] LABS: Differential Indicated SCAN CRITERIA MET
[2023-09-21 14:39] VITALS: BP 126/79; PULSE 108; RESP 11; O2SAT 99
[2023-09-21 14:40] LABS: Color, Urine Yellow (Yellow); Glucose, Dipstick Normal (Normal); Ketone-Dipstick 5 mg/dl (Negative); Leukocyte Esterase-Dipstick 100 /ul (Negative); Nitrite-Dipstick Negative (Negative); Occult Blood-Urine 250 /ul (Negative); Protein-Dipstick 30 mg/dl (Negative); Specific Gravity, Urine 1.025 (1.002-1.030); Urine Bilirubin Dipstick Negative (Negative); Urine Clarity Sl. Cloudy (Clear); Urine Urobilinogen 1 mg/dl (Normal)
[2023-09-21 14:47] LABS: Bacteria 2+ /hpf (None Seen); Red Blood Cells-Urine 25-50 SEEN /hpf (0-5); Squamous Epithelial Cells - UA 10-25 SEEN /hpf (5-10); White Blood Cells 10-25 SEEN /hpf (0-5)
[2023-09-21 14:48] LABS: Internal QC Validated? YES +Cl - CLEAR BKGD; Pregnancy, Urine Negative Negative; Record Kit Lot#,Urine Preg HCG0000667200
[2023-09-21 14:57] LABS: ALB/GLOB Ratio 0.9 RATIO (0.9-2.4); AST(SGOT) 14 U/L (15-37); Alanine Aminotransfer ALT/SGPT 26 U/L (13-56); Albumin, Serum 3.7 g/dL (3.2-5.0); Alkaline Phosphatase 118 U/L (45-117); Anion Gap 5 (5-15); BUN 7 mg/dL (7-18); BUN/Creat Ratio 7.4 RATIO (10-20); Calcium,Total 8.5 mg/dL (8.5-10.1); Chloride 105 mmol/L (98-107); Creatinine, Serum 0.95 mg/dL (0.55-1.02); EST Glomerular Filtration Rate 73 mL/min (>60); Est Glom Filt Rate - Afr Amer 88 mL/min (>60); Globulin 4.3 g/dL (2.2-4.2); Glucose 70 mg/dL (74-106); Potassium 3.3 mmol/L (3.5-5.1); Sodium Level 139 mmol/L (136-145); Troponin-I HS 5 pg/mL (3.0-54.0)
[2023-09-21 14:58] VITALS: BP 81/64; PULSE 103; RESP 23; O2SAT 100
[2023-09-21 15:14] LABS: Differential Comment SCANNED
[2023-09-21] MEDS: 0.9% Normal Saline (1000mL) 1,000 ML 999 ML IV (15:30)
[2023-09-21 15:46] VITALS: BP 106/78; PULSE 64; RESP 18; TEMP 35.9; O2SAT 99
[2023-09-21] MEDS: Acetaminophen 500 MG Tablet 1000 MG PO (15:51)
[2023-09-21 16:16] VITALS: BP 103/76; PULSE 89
== END 2023-09-21 16:16 | disposition home or self-care (01) ==
PROVIDERS: Physician Assistant; Emergency Provider Emergency Medicine; Visit Provider Emergency Medicine
DX: U07.1 COVID-19 (principal); F31.9 Bipolar disorder, unspecified; R07.9 Chest pain, unspecified; M79.10 Myalgia, unspecified site; F41.9 Anxiety disorder, unspecified; Z79.899 Other long term (current) drug therapy; Z87.891 Personal history of nicotine dependence
CPT/HCPCS: 80053; 81001; 81025; 84484; 85025; 87077; 87086; 87088; 87186; 87428; 93005; 96374; 99284; J7030; A4216

== ENCOUNTER → 2023-11-24 | Outpatient (CLI) | payer MEDICAID, SELFPAY ==
--- NOTE | 2023-11-24 07:57 | MRI_ITS ---
EXAM: MR ABDOMEN WITHOUT AND WITH INTRAVENOUS CONTRAST CLINICAL INDICATION: RENAL LESION, F/U TO RENAL CT TECHNIQUE: Multiplanar and multisequence MR images of the abdomen without and with intravenous contrast. CONTRAST: 19 CC CLARISCAN IV COMPARISON: CT abdomen 09/29/2023 FINDINGS: LOWER THORAX: Normal. No pleural effusion. LIVER: Normal. Normal morphology. No focal mass. GALLBLADDER AND BILE DUCTS: Susceptibility artifacts noted related to cholecystectomy clips. No intra- or extrahepatic biliary ductal dilation. PANCREAS: Normal. No focal cystic or solid mass. SPLEEN: Normal. Normal size without focal cystic or solid mass. ADRENALS: Normal. No nodules. KIDNEYS AND URETERS: Normal. Normal renal size and position. No hydronephrosis. No abnormal contrast enhancement. INTRAPERITONEAL SPACE: Normal. No ascites or other fluid collection. No free air. VASCULATURE: Normal. Abdominal aorta is non-dilated. LYMPH NODES: No enlarged lymph nodes. MRI/MRI Abd WITH and W/O Contrast IMPRESSION: No evidence of renal mass. Electronically Signed: Husam Muñoz MD at 16:13 EST ,
== END | disposition home or self-care (01) ==
DX: N28.9 Disorder of kidney and ureter, unspecified (principal)
CPT/HCPCS: 74183; A9575

== ENCOUNTER 2024-01-12 22:21 | Emergency (ER) | payer MEDICAID, SELFPAY ==
[2024-01-12 22:22] VITALS: BP 107/68; PULSE 86; RESP 18; TEMP 36.3; O2SAT 99; BMI 36.8
--- NOTE | 2024-01-12 22:35 | US_ITS ---
INDICATION: ABD PAIN EXAMINATION: Ultrasound US Abdomen RUQ (limited) TECHNIQUE: Ruiz scale and color doppler imaging was performed of the right upper quadrant. COMPARISON: 05/09/2022 CT. FINDINGS: LIVER: Normal echotexture. No evidence of a mass. No intrahepatic duct dilation. Mild diffuse increased echogenicity. GALLBLADDER: Status post cholecystectomy. COMMON BILE DUCT: Normal measuring 4 mm in diameter. PANCREAS: Not well-visualized due to overlying bowel gas. RIGHT KIDNEY: Unremarkable. FREE FLUID: No free fluid in the right upper quadrant. US/Gallbladder IMPRESSION: 1. No acute abnormality in the right upper quadrant. 2. Mild diffuse increased echogenicity of the liver which may represent fatty infiltration. Electronically Signed: Dorian Buckner DO at 23:38 EDT ,
[2024-01-12 22:45] LABS: Absolute Lymphocyte Count 1.98 X10^3/uL (0.83-4.51); Absolute Neutrophil Count 4.6 X10^3/uL (2.0-7.7); Basophil# 0.08 X10^3/uL; Eosinophil# 0.32 X10^3/uL; Eosinophils% 4.2 % (0-5); Hematocrit 43.8 % (37-47); Hemoglobin 14.4 g/dL (12.0-15.0); Lymphocyte # 1.98 X10^3/ul (0.83-4.51); Mean Corp Hgb Conc 32.9 g/dL (32-36); Mean Corpuscular Hgb 28.9 pg (27.0-32.0); Mean Platelet Vol. 8.9 fl (6.2-12.0); Monocyte# 0.66 X10^3/uL; Monocyte% 8.7 % (0-10); NRBC Flagged by Analyzer 0 % (0-5); Neutrophil # 4.56 X10^3/uL (2.7-7.7); Neutrophil % 59.8 % (47-70); Platelet Count 363 K/mm3 (150-450); RBC Distribution Width CV 13.4 % (11.6-14.6); RBC Distribution Width SD 43.1 fl (35.1-43.9); Red Blood Count 4.98 M/mm3 (4.2-5.4); White Blood Count 7.6 K/mm3 (4.4-11.0)
[2024-01-12] MEDS: 0.9% Normal Saline (1000mL) 1,000 ML 1000 ML IV (22:46)
[2024-01-12] MEDS: Morphine 4 MG/ML Syringe IV (22:46)
[2024-01-12] MEDS: Lorazepam 2 MG/ML WCH Syringe 0.5 MG IV (22:46)
[2024-01-12] MEDS: Ondansetron 4 MG/2 ML Vial IV (22:46)
--- NOTE | 2024-01-12 22:50 | ED.RN ---
Computer malfunction with medication administration. This RN pulled and gave medication to this pt. Computer still signed in as Angie RN even though this RN scanned badge before administration.
[2024-01-12 23:07] LABS: Internal QC Validated? YES +Cl - CLEAR BKGD; Pregnancy, Serum, hCG Quali. NEGATIVE Negative
[2024-01-12 23:08] LABS: AST(SGOT) 16 U/L (15-37); Alanine Aminotransfer ALT/SGPT 25 U/L (13-56); Albumin, Serum 3.8 g/dL (3.2-5.0); Alkaline Phosphatase 109 U/L (45-117); Anion Gap 6 (5-15); BUN 9 mg/dL (7-18); BUN/Creat Ratio 10.5 RATIO (10-20); Bilirubin, Direct 0.15 mg/dL (0.00-0.30); Chloride 109 mmol/L (98-107); Creatinine, Serum 0.86 mg/dL (0.55-1.02); EST Glomerular Filtration Rate 81 mL/min (>60); Est Glom Filt Rate - Afr Amer 98 mL/min (>60); Globulin 3.7 g/dL (2.2-4.2); Glucose 98 mg/dL (74-106); Lipase 23 U/L (13-75); Potassium 3.9 mmol/L (3.5-5.1); Protein, Total 7.5 g/dL (6.4-8.2); Sodium Level 141 mmol/L (136-145)
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
[2024-01-12 23:49] LABS: Mucous, Urine 0 SEEN /hpf (<or=2+); Red Blood Cells-Urine 0 SEEN /hpf (0-5)
[2024-01-12 23:50] LABS: Color, Urine Yellow (Yellow); Glucose, Dipstick Normal (Normal); Ketone-Dipstick Negative (Negative); Leukocyte Esterase-Dipstick 500 /ul (Negative); Nitrite-Dipstick Negative (Negative); Occult Blood-Urine Negative /ul (Negative); Protein-Dipstick 15 mg/dl (Negative); Specific Gravity, Urine 1.025 (1.002-1.030); Urine Bilirubin Dipstick Negative (Negative); Urine Clarity Clear (Clear); Urine Urobilinogen Normal (Normal)
--- NOTE | 2024-01-12 23:51 | CT_ITS ---
INDICATION: right sided pain EXAMINATION: CT Abdomen And Pelvis W/O Contrast Injection TECHNIQUE: Helically acquired images were obtained of the abdomen and pelvis with sagittal and coronal reconstructed images. Individualized dose optimization techniques were used for this CT. IV contrast dosage and agent: None. Oral contrast: None. COMPARISON: 09/29/2023 and 05/09/2022 CTs. FINDINGS: VESSELS: No abdominal aortic aneurysm. LIVER: No intrahepatic or extrahepatic biliary duct dilation. GALLBLADDER: Status post cholecystectomy. PANCREAS: No evidence of a mass. No evidence of pancreatitis. SPLEEN: Normal. ADRENAL GLANDS: Normal. KIDNEYS AND URETERS: No urinary tract stone. No hydronephrosis or hydroureter. No significant asymmetric perinephric stranding. URINARY BLADDER: Unremarkable. BOWEL: No evidence of diverticulosis or diverticulitis. Appendix appears normal. No evidence of bowel obstruction. REPRODUCTIVE ORGANS: Unremarkable. PERITONEUM: No intraabdominal free fluid or free air. LYMPH NODES: No pathologically enlarged mesenteric or retroperitoneal lymph nodes. ABDOMINAL WALL: No abdominal or pelvic wall hernia. BONES: No acute abnormality. LOWER CHEST: Visualized lung bases are unremarkable. CT/Abdomen/Pelvis without Cont IMPRESSION: 1. No acute abnormality. 2. No urinary tract stone or obstruction. 3. Normal appendix. Electronically Signed: Dorian Buckner DO at 0:59 EDT ,
[2024-01-12 23:58] LABS: Bacteria 2+ /hpf (None Seen); Squamous Epithelial Cells - UA 0-5 SEEN /hpf (5-10); White Blood Cells 10-25 SEEN /hpf (0-5)
[2024-01-13 00:21] VITALS: BP 110/72; PULSE 79; RESP 16; TEMP 36.4; O2SAT 100
[2024-01-13] MEDS: Ketorolac 15 MG/ML Vial IV (00:24)
[2024-01-13] MEDS: fentaNYL 100 MCG/2 ML Ampul 50 MCG IV (00:25)
[2024-01-13] MEDS: Cephalexin 250 MG Capsule 500 MG PO (01:25)
[2024-01-13 01:31] VITALS: BP 132/79; PULSE 81; RESP 16; TEMP 36.6; O2SAT 14
== END 2024-01-13 01:31 | disposition home or self-care (01) ==
PROVIDERS: Emergency Provider Emergency Medicine; Visit Provider Emergency Medicine
DX: R10.11 Right upper quadrant pain (principal); F31.9 Bipolar disorder, unspecified; N39.0 Urinary tract infection, site not specified; Z87.891 Personal history of nicotine dependence
CPT/HCPCS: 74176; 76705; 80048; 80076; 81001; 83690; 84703; 85025; 87086; 96361; 96374; 96375; 99283; J7030; A4216; J2405

== ENCOUNTER 2024-03-12 23:26 | Emergency (ER) | payer MEDICAID, SELFPAY ==
[2024-03-12 23:27] VITALS: BP 138/80; PULSE 109; RESP 16; TEMP 36.8; O2SAT 100; BMI 35.9
--- NOTE | 2024-03-13 00:46 | EDS_ITS ---
HPI History of Present Illness Chief Complaint: Wound Informant: patient Narrative Narrative: Patient is a 34-year-old female with past medical history of bipolar disorder. She states that she was bit in the face by a dog roughly 10 days ago. She states she was seen at an outside hospital and placed on antibiotics and had sutures. She states that she finished antibiotics and the sutures have been removed but that recently she is felt a lump underneath the skin and noticed mild discoloration which she had concern for potential persistent infection and therefore comes in for evaluation [facility] Medical History Alcohol use Anxiety Arthritis Asthma Back pain Bipolar disorder Depression Diarrhea Easy bruising Excessive bleeding Gastric reflux Gastroparesis Leg cramps Loss of consciousness Migraine headache Nausea Restless legs Right ankle pain Right ankle sprain Seizures Smoker Wears glasses Home Medications ?Medication ?Instructions ?Recorded ?Last Taken ?Type gabapentin 300 mg capsule 300 mg PO BID 03/12/24 Unknown History paliperidone 3 mg tablet,extended 3 mg PO DAILY 03/12/24 Unknown History release 24 hr Allergy/AdvReac Type Severity Reaction Status Date / Time Iodinated Contrast Media Allergy Nausea/Vom/ Verified 03/12/24 23:29 (DYEE) Diarrhea Penicillins Allergy Hives Verified 03/12/24 23:29 Sulfa (Sulfonamide Allergy Hives Verified 03/12/24 23:29 Antibiotics) Family History Grandfather Cancer pancreatic Grandfather Cancer unknown Father COPD (chronic obstructive pulmonary disease) Hypertension Mother Diabetes Thyroid disorder Surgical History H/O knee surgery History of salpingectomy History of tonsillectomy and adenoidectomy Hx of cholecystectomy Social History household members: significant other and children Smoking Status: Former smoker quit date: 04/24/23 alcohol intake: never substance use type: does not use ROS ROS ED Constitutional Constitutional ED: Denies chills or fever(s) Eyes Eyes: Denies change in vision ENT ENT ED: Reports other Details: Positive lip swelling/pain ; Denies sore throat Cardiovascular Cardiovascular: Denies chest pain Respiratory/Chest Respiratory/Chest: Denies cough or dyspnea Gastrointestinal Gastrointestinal: Denies abdominal pain, diarrhea, nausea or vomiting Genitourinary Genitourinary ED: Denies dysuria Musculoskeletal Musculoskeletal: Denies myalgias Integumentary Reports other Details: Positive lip laceration/wound ; Denies rash Neurologic Neurologic: Denies headache(s) Hematologic/Lymphatic Hematologic/Lymphatic: Denies easy bleeding or easy bruising EXAM Physical Exam Const Vital Signs: 03/12/24 23:27 03/13/24 01:04 Temperature 98.2 F 96.9 F L Temperature Source Temporal Pulse Rate 109 H 90 Respiratory Rate 16 16 Blood Pressure 138/80 H 117/96 H Blood Pressure Mean 99 103 Pulse Ox 100 99 Oxygen Delivery Method Room Air Positive well nourished and well developed General Appearance ED: well developed HEENT HEENT Narrative: Patient has a scar to the right lateral upper lip consistent with recent history of dog bite. The wound/scar is clean dry and intact. There is no surrounding erythema or warmth or lymphangitic streaking. There is a firmness palpated when squeezing the wound most consistent with development of scar tissue. There is just a small amount of granulation tissue present along the inner aspect of the right upper lateral lip. There is no obvious dehiscence or secondary findings to suggest infection Eyes PERRL and EOMs intact bilaterally Neck supple Resp normal respiratory effort and clear to auscultation bilaterally Cardio regular rate and regular rhythm Extremity normal to inspection Neuro oriented x3, CN's II-XII intact bilaterally and no sensory deficits noted Sensorium / Orientation: alert Motor Exam: strength 5/5 throughout Psych mental status grossly normal Skin Skin Narrative: Healing laceration to the right upper lip as documented above MDM MDM MDM Narrative Medical decision making narrative: Patient arrived to the ER mildly hypertensive otherwise with stable vital. She reported being on proper antibiotics and denied any repeat trauma since antibiotics have been completed and sutures have been removed. On exam there is no obvious signs of infection such as cellulitis or abscess. The patient has developing scar tissue consistent with her wound as well as mild small granulation tissue which is normal wound healing tissue. Therefore this time I do not feel the need to do an incision and drainage or needle aspiration I do not feel the need to perform repeat antibiotic patient was advised that wound is healing appropriately and there is no need for further intervention and she is o therwise safe for discharge. History & Record Review Discussion w/independent historian: Patient Discharge Plan Triage Chief Complaint: Wound ED Provider: Truong Boyer Dx/Rx/DC Orders Clinical Impression: Encounter for post-traumatic wound check, Bipolar disorder Instructions: ED Wound Check (No Infection) Prescriptions: No Action gabapentin 300 mg capsule 300 mg PO BID paliperidone 3 mg tablet extended release 24hr 3 mg PO DAILY Primary Care Provider: Kayley Bland Referrals: Kayley Bland, [Primary Care Provider] - Print Language: Romansh Disposition Disposition: Home, Self Care Discharge Date/Time: 03/13/24 01:04
[2024-03-13 01:04] VITALS: BP 117/96; PULSE 90; RESP 16; TEMP 36.1; O2SAT 99
== END 2024-03-13 01:04 | disposition home or self-care (01) ==
PROVIDERS: Emergency Provider Emergency Medicine; Visit Provider Emergency Medicine
DX: Z51.89 Encounter for other specified aftercare (principal); F31.9 Bipolar disorder, unspecified; J45.909 Unspecified asthma, uncomplicated; Z87.891 Personal history of nicotine dependence
CPT/HCPCS: 99282

== ENCOUNTER 2024-07-18 11:08 | Emergency (ER) | payer MEDICAID, SELFPAY ==
[2024-07-18 11:08] VITALS: BP 135/110; PULSE 140; RESP 22; TEMP 36.2; O2SAT 100; BMI 39.4
--- NOTE | 2024-07-18 11:25 | EKG12_ITS ---
Test Reason : ABD PAIN Blood Pressure : / mmHG Vent. Rate : 095 BPM Atrial Rate : 095 BPM P-R Int : 124 ms QRS Dur : 090 ms QT Int : 360 ms P-R-T Axes : 044 061 044 degrees QTc Int : 452 ms Normal sinus rhythm Normal ECG Confirmed by Dennis Gonzalez ([id number]), clinical editor CHRISTY SOOD ([id number]) on 07/19/2024 10:25:58 AM Referred By: Confirmed By:Dennis Gonzalez
--- NOTE | 2024-07-18 11:25 | CT_ITS ---
STUDY: CT ABDOMEN AND PELVIS WITH CONTRAST REASON FOR EXAM: Female, 34 years old. Abd pain. Pre-treat due to IV contrast allergy RADIATION DOSAGE (If Supplied By Facility): CTDIvol = ( 18.69 ) mGy, DLP = ( 1366.87 ) mGycm TECHNIQUE: Transaxial images were obtained from the dome of the diaphragm to the symphysis pubis without oral contrast. IV 100mL Isovue-370 was administered. Sagittal and coronal images were reconstructed. Individualized dose optimization techniques were used for this CT. COMPARISON: Comparison is made with prior study January 13, 2024. FINDINGS: The visualized lung bases are unremarkable. The visualized portions of the heart are within normal limits. Normal liver. There are surgical clips in the gallbladder fossa consistent with a prior cholecystectomy. Normal spleen. Normal pancreas. Normal bilateral adrenal glands. Normal right kidney. Normal left kidney. Normal visualized stomach. Normal small intestine. There are scattered colonic diverticula consistent with diverticulosis. The appendix is visualized and appears normal. Normal abdominal aorta. Normal inferior vena cava. Normal retroperitoneum. Normal urinary bladder. Normal abdominal wall. There are mild degenerative changes of the visualized lumbar spine. CT/Abdomen/Pelvis W IV Cont ONLY IMPRESSION: Status post cholecystectomy. Scattered sigmoid diverticula. Electronically Signed: Robert Tang MD at 12:45 EDT ,
--- NOTE | 2024-07-18 11:29 | EDS_ITS ---
HPI HPI - GI History of Present Illness Chief Complaint: Abd Pain Informant: patient Abdominal Pain/Flank Pain Onset: Today and Yesterday Context: Gradual Onset Timing: Continuous Quality: Cramping and Sharp Location: Diffuse Current Severity: Moderate Maximum Severity: Moderate Worsened by: Nothing Relieved by: Nothing Nausea/Vomiting/Emesis GI Symptom: Negative for Nausea Diarrhea/Melena/Hematochezia GI Symptom: Positive for Diarrhea; Negative for Melena or Hematochezia Associated Symptoms Associated Symptoms: Negative for Dysuria, Frequency, Hematuria or Urgency Narrative Narrative: 34-year-old female history of prior cholecystectomy, tubal ligation and gastroparesis. History of GI problems. States yesterday around 6 PM she started having diffuse abdominal pain. Denies any fever. Mild constipation. No diarrhea or vomiting. No dysuria. No vaginal bleeding or discharge. Nothing particularly makes the pain better or worse. Prior similar symptoms: Yes Recent Illness/Hospitalization: No PFSH PFSH Medical History Right ankle sprain Right ankle pain Gastroparesis Wears glasses Bipolar disorder Depression Anxiety Alcohol use Arthritis Excessive bleeding Easy bruising Restless legs Back pain Migraine headache Seizures Loss of consciousness Diarrhea Nausea Gastric reflux Asthma Smoker Leg cramps Home Medications ?Medication ?Instructions ?Recorded ?Last Taken ?Type gabapentin 300 mg capsule 300 mg PO BID 03/12/24 Unknown History paliperidone 3 mg tablet,extended 3 mg PO DAILY 03/12/24 Unknown History release 24 hr folic acid 400 mcg tablet 0.4 mg PO DAILY 07/18/24 Unknown History furosemide 20 mg tablet 20 mg PO DAILY PRN edema 07/18/24 Unknown History hydroxyzine HCl 25 mg tablet 25 mg PO Q8H PRN PRN itch 07/18/24 Unknown History metoclopramide HCl 10 mg tablet 10 mg PO 5X/DAY 07/18/24 Unknown History trazodone 50 mg tablet 50 mg PO QHS 07/18/24 Unknown History Allergy/AdvReac Type Severity Reaction Status Date / Time Iodinated Contrast Media Allergy Nausea/Vom/ Verified 07/18/24 11:09 (DYEE) Diarrhea Penicillins Allergy Hives Verified 07/18/24 11:09 Sulfa (Sulfonamide Allergy Hives Verified 07/18/24 11:09 Antibiotics) Family History Grandfather Cancer pancreatic Grandfather Cancer unknown Father COPD (chronic obstructive pulmonary disease) Hypertension Mother Diabetes Thyroid disorder Surgical History History of salpingectomy Hx of cholecystectomy H/O knee surgery History of tonsillectomy and adenoidectomy Social History household members: significant other and children Smoking Status: Former smoker quit date: 04/24/23 alcohol intake: never substance use type: does not use ROS ROS ED ROS Narrative Abdominal pain. Constitutional Constitutional ED: Denies chills or fever(s) ENT ENT ED: Denies ear pain Cardiovascular Cardiovascular: Denies chest pain Respiratory/Chest Respiratory/Chest: Denies cough or dyspnea Gastrointestinal Gastrointestinal: Reports abdominal pain and constipation; Denies diarrhea, melena, nausea or vomiting Genitourinary Genitourinary ED: Denies dysuria or hematuria Musculoskeletal Musculoskeletal: Denies arthralgias Integumentary Denies abscess Neurologic Neurologic: Denies headache(s) Psychiatric Psychiatric: Denies anxiety Endocrine Endocrinology: Denies polydipsia Hematologic/Lymphatic Hematologic/Lymphatic: Denies easy bleeding Allergic/Immunologic Allergic/Immunologic ED: Denies mouth swelling EXAM Physical Exam Narrative Exam Narrative: Well-appearing 34-year-old female. Vital signs are stable she is tachycardic initial triage was 140 on my exam at 115. She does not look septic or toxic. She is having discomfort but she is not in no distress. Family is at the bedside. H EENT exam unremarkable. Mytrex membranes. Neck nontender. Lungs clear. Heart tachycardic rate about 115 no murmur. Chest wall ribs nontender. Abdomen fusilli tender. No peritoneal signs. No hernia or mass. No localizing tenderness she is tender all over. No signs of obstruction. No signs of trauma. She has bowel sounds. No masses. Back nontender. Moving all 4 extremities. Nontender no edema. Normal strength. She is awake and alert. Const Vital Signs: 07/18/24 11:08 07/18/24 13:06 Temperature 97.2 F L Temperature Source Temporal Pulse Rate 140 H 77 Respiratory Rate 22 H 17 Blood Pressure 135/110 H 130/91 H Blood Pressure Mean 118 104 Pulse Ox 100 98 Oxygen Delivery Method Room Air Positive well nourished and well developed; Negative for cachectic, contractures or unkempt General Appearance ED: well developed and NAD; Negative for unkempt, cachectic, contractures or pallor Nutritional Appearance: Negative for cachectic HEENT Reports moist mucous membranes normocephalic and atraumatic Eyes PERRL and EOMs intact bilaterally Neck no lymphadenopathy, supple and no JVD General: Negative for tenderness Resp normal respiratory effort and clear to auscultation bilaterally Cardio regular rhythm, S1 normal heart sound, S2 normal heart sound and no murmurs; Negative for regular rate Rate: tachycardic GI non-distended and no masses; Negative for non-tender Inspection: Negative for abdominal distention Auscultation: normoactive bowel sounds Palpation: soft and tender; Negative for guarding, rigid, hepatomegaly, splenomegaly, hernia, mass, pulsatile mass or rebound tenderness present Back/Spine no CVA tenderness Extremity full ROM General Extremety ED: Negative for edema or tenderness General Extremity: Negative for edema Neuro CN's II-XII intact bilaterally and moves all extremities Sensorium / Orientation: alert, oriented to person, oriented to place and oriented to time; Negative for orientation impaired or confused Motor Exam: strength 5/5 throughout Psych mental status grossly normal and thought process normal Appearance: Negative for unkempt Attitude: No agitated Mood & Affect: Negative for depressed, anxious or tearful Skin no wounds General Skin Exam: Negative for jaundice or pallor Lesions: no lesions Rashes: no rashes Trauma: Negative for abrasion Nails: Negative for discolored MDM MDM MDM Narrative Medical decision making narrative: 34-year-old female with diffuse abdominal pain. History of cholecystectomy. CAT scan and labs are pending. Morphine for pain and Zofran. She will be pret reated prior to the IV contrast due to reported allergy. She will be given IV Solu-Medrol and Benadryl. Repeat exam at 1:32 PM abdomen benign. Nontender nondistended. Patient is feeling better after pain medication and nausea medication. She will be discharged home abdominal pain uncertain etiology. She has had episodes like this before without a specific etiology. History & Record Review Discussion w/independent historian: Patient and Family Additional record(s) reviewed:: Prior inpatient record, Prior outpatient record and Prior ED visit Lab Data Attestation: I reviewed the patient's lab results. Lab results narrative: CBC normal. White count of 6. H&H 13 and 41. Platelets 324. Electrolytes show a gap of 4. Normal BUN of 17 creatinine 0.8. Glucose 125. Liver enzymes are unremarkable. Amylase normal at 52. Lipase normal at 18. Serum test negative. Urinalysis shows no white cells. No red cells. No bacteria. No nitrates. CAT scan no acute abnormalities read by the radiologist. Reviewed by me. Labs: Laboratory Results - last 24 hr 07/18/24 07/18/24 11:30 11:36 WBC 6.7 RBC 4.56 Hgb 13.2 Hct 41.0 MCV 89.9 MCH 28.9 MCHC 32.2 RDW Std Deviation 44.8 H RDW Coeff of Katt 13.6 Plt Count 324 MPV 8.8 Immature Gran % (Auto) 0.700 Neut % (Auto) 75.2 H Lymph % (Auto) 16.0 L [place] % (Auto) 5.5 Eos % (Auto) 2.2 Baso % (Auto) 0.4 Absolute Neuts (auto) 5.1 Absolute Lymphs (auto) 1.08 Nucleated RBC % 0 Sodium 140 Potassium 3.7 Chloride 109 H Carbon Dioxide 27.0 Anion Gap 4 L BUN 17 Creatinine 0.81 Estim Creat Clear Calc 120.39 Est GFR (MDRD) Af Amer 105 Est GFR (MDRD) Non-Af 87 BUN/Creatinine Ratio 21.0 H Glucose 125 H Calcium 8.5 Total Bilirubin 0.30 AST 26 ALT 49 Alkaline Phosphatase 89 Total Protein 6.5 Albumin 3.0 L Globulin 3.5 Albumin/Globulin Ratio 0.9 Amylase 52 Lipase 18 Serum , Qual NEGATIVE Urine Color Yellow Urine Clarity Clear Urine pH 6.5 Ur Specific [place] 1.010 Urine Protein Negative Urine Glucose (UA) Normal Urine Ketones Negative Urine Occult Blood 25 H Urine Nitrite Negative Urine Bilirubin Negative Urine Urobilinogen Normal Ur Leukocyte Esterase 500 H Urine RBC 0 SEEN Urine WBC 0-5 SEEN Ur Squamous Epith Cells 5-10 SEEN Urine Bacteria 0 SEEN Urine Mucus 0 SEEN Urine Trichomonas 0-5 SEEN Radiography Diagnostic Testing: Clinical Impression(s) from Imaging Studies Abdomen/Pelvis CT 07/18/24 11:25 IMPRESSION: Status post cholecystectomy. Scattered sigmoid diverticula. Electronically Signed: Robert Tang MD at 12:45 EDT , Discharge Plan Triage Chief Complaint: Abd Pain ED Provider: Inocencio Ruiz Dx/Rx/DC Orders Clinical Impression: Abdominal pain Instructions: Abdominal Pain Prescriptions: No Action gabapentin 300 mg capsule 300 mg PO BID paliperidone 3 mg tablet extended release 24hr 3 mg PO DAILY folic acid 400 mcg tablet 0.4 mg PO DAILY furosemide 20 mg tablet 20 mg PO DAILY PRN (Reason: edema) trazodone 50 mg tablet 50 mg PO QHS hydroxyzine HCl 25 mg tablet 25 mg PO Q8H PRN PRN (Reason: itch) metoclopramide HCl 10 mg tablet 10 mg PO 5X/DAY Primary Care Provider: Dipika Colindres Referrals: Kayley Bland, [Non-Staff] - As Needed Activity Restrictions/Additional Instructions: Plenty of fluids. Motrin and Tylenol for pain. Follow-up with your primary care provider as needed. Return if worse. Your CAT scan and labs all look good. Print Language: Latvian Disposition Disposition: Home, Self Care
[2024-07-18] MEDS: morphine 8 MG/ML Syringe 6 MG IV (11:36)
[2024-07-18] MEDS: Ondansetron 4 MG/2 ML Vial IV (11:36)
[2024-07-18] MEDS: DiphenhydrAMINE 50 MG/ML Syringe 25 MG IV (11:38)
[2024-07-18] MEDS: MethylPREDNISolone 125 MG/2 ML Vial IV (11:38)
[2024-07-18 11:41] LABS: Bacteria 0 SEEN /hpf (None Seen); Mucous, Urine 0 SEEN /hpf (<or=2+); Red Blood Cells-Urine 0 SEEN /hpf (0-5)
[2024-07-18 11:50] LABS: Color, Urine Yellow (Yellow); Glucose, Dipstick Normal (Normal); Ketone-Dipstick Negative (Negative); Leukocyte Esterase-Dipstick 500 /ul (Negative); Nitrite-Dipstick Negative (Negative); Occult Blood-Urine 25 /ul (Negative); Protein-Dipstick Negative (Negative); Urine Bilirubin Dipstick Negative (Negative); Urine Clarity Clear (Clear); Urine Urobilinogen Normal (Normal); Urine pH 6.5 (5.0 - 8.0)
[2024-07-18 11:50] LABS: Absolute Lymphocyte Count 1.08 X10^3/uL (0.83-4.51); Absolute Neutrophil Count 5.1 X10^3/uL (2.0-7.7); Basophil# 0.03 X10^3/uL; Basophil% 0.4 % (0-1); Eosinophil# 0.15 X10^3/uL; Eosinophils% 2.2 % (0-5); Hemoglobin 13.2 g/dL (12.0-15.0); Internal QC Validated? YES +Cl - CLEAR BKGD; Lymphocyte # 1.08 X10^3/ul (0.83-4.51); Mean Corp Hgb Conc 32.2 g/dL (32-36); Mean Corpuscular Hgb 28.9 pg (27.0-32.0); Mean Corpuscular Volume 89.9 fL (81-99); Mean Platelet Vol. 8.8 fl (6.2-12.0); Monocyte# 0.37 X10^3/uL; Monocyte% 5.5 % (0-10); NRBC Flagged by Analyzer 0 % (0-5); Neutrophil # 5.06 X10^3/uL (2.7-7.7); Neutrophil % 75.2 % (47-70); Platelet Count 324 K/mm3 (150-450); Pregnancy, Serum, hCG Quali. NEGATIVE Negative; RBC Distribution Width CV 13.6 % (11.6-14.6); RBC Distribution Width SD 44.8 fl (35.1-43.9); Red Blood Count 4.56 M/mm3 (4.2-5.4); White Blood Count 6.7 K/mm3 (4.4-11.0)
[2024-07-18 11:59] LABS: ALB/GLOB Ratio 0.9 RATIO (0.9-2.4); AST(SGOT) 26 U/L (15-37); Alanine Aminotransfer ALT/SGPT 49 U/L (13-56); Alkaline Phosphatase 89 U/L (45-117); Amylase 52 U/L (25-115); Anion Gap 4 (5-15); BUN 17 mg/dL (7-18); Calcium,Total 8.5 mg/dL (8.5-10.1); Chloride 109 mmol/L (98-107); Creatinine, Serum 0.81 mg/dL (0.55-1.02); EST Glomerular Filtration Rate 87 mL/min (>60); Est Glom Filt Rate - Afr Amer 105 mL/min (>60); Estimated Creatinine Clearance 120.39 ml/min; Globulin 3.5 g/dL (2.2-4.2); Glucose 125 mg/dL (74-106); Lipase 18 U/L (13-75); Potassium 3.7 mmol/L (3.5-5.1); Protein, Total 6.5 g/dL (6.4-8.2); Sodium Level 140 mmol/L (136-145)
[2024-07-18 12:02] LABS: Squamous Epithelial Cells - UA 5-10 SEEN /hpf (5-10); Trichomonas 0-5 SEEN /hpf (None Seen); White Blood Cells 0-5 SEEN /hpf (0-5)
[2024-07-18 13:06] VITALS: BP 130/91; PULSE 77; RESP 17; O2SAT 98
[2024-07-18 13:40] VITALS: BP 138/89; PULSE 71; RESP 18; TEMP 36.6; O2SAT 99
== END 2024-07-18 13:42 | disposition home or self-care (01) ==
PROVIDERS: Emergency Provider Emergency Medicine; PCP Student in an Organized Health Care Education/Training Program; Visit Provider Emergency Medicine
DX: R10.9 Unspecified abdominal pain (principal); F31.9 Bipolar disorder, unspecified; J45.909 Unspecified asthma, uncomplicated; Z87.891 Personal history of nicotine dependence
CPT/HCPCS: 74177; 80053; 81001; 82150; 83690; 84703; 85025; 93005; 96374; 96375; 96376; 99282; J7030; Q9967; J2405

== ENCOUNTER 2025-05-03 12:31 | Emergency (ER) | payer MEDICAID, SELFPAY ==
[2025-05-03 12:31] VITALS: BP 143/76; PULSE 80; RESP 16; TEMP 35.8; O2SAT 100; BMI 46.2
--- NOTE | 2025-05-03 13:34 | EX.ED.DYSGE1 ---
HPI History of Present Illness Chief Complaint: Chest Pain Informant: patient Onset/Context/Timing Onset: Days (2) Context: Gradual Onset Timing: Continuous Quality: Dull Location: Right side of abdomen, left axilla, left chest, and left arm Worsened by: Movement Relieved by: Nothing Narrative Narrative: Patient presents with right side pain in the left axillary and chest pain that began 2 days ago. Patient states it is gradually getting worse. Patient describes it as dull. Patient states it is over the right side of her abdomen and right flank. Patient states it also is in the left axilla left arm and left chest. Patient states her pain is worse with movement. Patient states nothing makes it better. Patient denies any shortness of breath or cough. Patient admits to some nausea and vomiting. Patient denies any dysuria or hematuria. [facility] Medical History Right ankle sprain Right ankle pain Gastroparesis Wears glasses Bipolar disorder Depression Anxiety Alcohol use Arthritis Excessive bleeding Easy bruising Restless legs Back pain Migraine headache Seizures Loss of consciousness Diarrhea Nausea Gastric reflux Asthma Smoker Leg cramps Home Medications ?Medication ?Instructions ?Recorded ?Last Taken ?Type nitrofurantoin 100 mg PO Q12 #10 CAPSULES 05/03/25 Unknown Rx monohydrate/macrocrystals 100 mg capsule Allergy/AdvReac Type Severity Reaction Status Date / Time Iodinated Contrast Media Allergy Nausea/Vom/ Verified 05/03/25 12:33 (DYEE) Diarrhea Penicillins Allergy Hives Verified 05/03/25 12:33 Sulfa (Sulfonamide Allergy Hives Verified 05/03/25 12:33 Antibiotics) Family History Grandfather Cancer pancreatic Grandfather Cancer unknown Father COPD (chronic obstructive pulmonary disease) Hypertension Mother Diabetes Thyroid disorder Surgical History History of salpingectomy Hx of cholecystectomy H/O knee surgery History of tonsillectomy and adenoidectomy Social History household members: significant other and children Smoking Status: Former smoker quit date: 04/24/23 alcohol intake: never substance use type: does not use ROS ROS ED Constitutional Constitutional ED: Denies chills or fever(s) Eyes Eyes: Denies blurry vision or change in vision ENT ENT ED: Denies rhinorrhea or sore throat Cardiovascular Cardiovascular: Reports chest pain; Denies palpitations Respiratory/Chest Respiratory/Chest: Denies cough or dyspnea Gastrointestinal Gastrointestinal: Reports nausea and vomiting Genitourinary Genitourinary ED: Denies dysuria or hematuria Musculoskeletal Musculoskeletal: Reports back pain; Denies neck pain Integumentary Denies abscess or rash Neurologic Neurologic: Reports headache(s); Denies weakness Allergic/Immunologic Allergic/Immunologic ED: Denies mouth swelling or urticaria EXAM Physical Exam Const Vital Signs: 05/03/25 12:31 05/03/25 13:49 05/03/25 13:54 Temperature 96.4 F L Temperature Source Oral Pulse Rate 80 Respiratory Rate 16 Respiratory Effort Normal Respiratory Pattern Normal Blood Pressure 143/76 H Blood Pressure Mean 98 Pulse Ox 100 Oxygen Delivery Method Room Air Room Air 05/03/25 14:03 05/03/25 15:00 05/03/25 16:00 Temperature Temperature Source Pulse Rate 74 67 60 Respiratory Rate 16 18 17 Respiratory Effort Respiratory Pattern Blood Pressure 121/72 H 109/67 126/78 H Blood Pressure Mean 88 81 94 Pulse Ox 98 97 100 Oxygen Delivery Method Room Air Room Air Room Air 05/03/25 17:00 Temperature 98.5 F Temperature Source Pulse Rate 63 Respiratory Rate 18 Respiratory Effort Respiratory Pattern Blood Pressure 103/56 L Blood Pressure Mean 71 Pulse Ox 100 Oxygen Delivery Method Positive well nourished and well developed Constitutional Narrative: BMI is 46.2 General Appearance ED: well developed and NAD HEENT Reports moist mucous membranes Neck supple and no JVD Chest Wall palpation of chest normal Resp normal respiratory effort and clear to auscultation bilaterally Cardio regular rate and regular rhythm GI non-distended Palpation: soft and tender RUQ Back/Spine General Back: CVA tenderness right Neuro oriented x3, CN's II-XII intact bilaterally and no sensory deficits noted Sensorium / Orientation: alert Motor Exam: strength 5/5 throughout Psych mental status grossly normal Skin General Skin Exam: Negative for jaundice MDM MDM MDM Narrative Medical decision making narrative: Differential diagnosis includes cardiac dysrhythmia, cardiac ischemia, pneumonia, bronchitis, radiculopathy, ureteral calculus, pyelonephritis, and electrolyte abnormality. EKG will be obtained to assess for cardiac dysrhythmia and cardiac ischemia. Chest x-ray will be obtained to assess for pneumonia and bronchitis. CBC will be obtained to assess for leukocytosis and anemia. Basic metabolic profile will be obtained to assess for electrolyte abnormality and renal function. High-sensitivity troponin will be obtained to assess for cardiac ischemia. 2-hour repeat high-sensitivity troponin will be obtained to assess for ongoing cardiac ischemia. Urinalysis will be obtained to assess for urinary tract infection and hematuria. CT scan of the abdomen and pelvis will be obtained to assess for ureteral calculus and pyelonephritis. History & Record Review Additional record(s) reviewed:: Prior ED visit and Prior labs Lab Data Attestation: I reviewed the patient's lab results. Lab results narrative: CBC was reviewed and was within the limits. Basic metabolic profile was reviewed and was within normal limits. High-sensitivity troponin elevated was reviewed and was less than 6. Urinalysis was reviewed. Leukocyte Estrace was 500. There are 25-50 white blood cells. There are 10-25 epithelial cells. There is 1+ bacteria. Labs: Laboratory Results - last 24 hr 05/03/25 05/03/25 05/03/25 12:45 12:45 13:40 WBC Cancelled 8.0 Corrected WBC Cancelled RBC Cancelled 4.41 Hgb Cancelled 13.0 Hct Cancelled 39.9 MCV Cancelled 90.5 MCH Cancelled 29.5 MCHC Cancelled 32.6 RDW Std Deviation Cancelled 42.8 RDW Coeff of Katt Cancelled 13.0 Plt Count Cancelled 317 MPV Cancelled 9.2 Immature Gran % (Auto) Cancelled 0.500 Neut % (Auto) Cancelled 73.5 H Lymph % (Auto) Cancelled 16.7 L Story % (Auto) Cancelled 7.1 Eos % (Auto) Cancelled 1.5 Baso % (Auto) Cancelled 0.7 Absolute Neuts (auto) Cancelled 5.9 Absolute Lymphs (auto) Cancelled 1.34 Total Counted Cancelled Neutrophils % (Manual) Cancelled Band Neutrophils % Cancelled Lymphocytes % (Manual) Cancelled Monocytes % (Manual) Cancelled Eosinophils % (Manual) Cancelled Basophils % (Manual) Cancelled Metamyelocytes % Cancelled Myelocytes % Cancelled Promyelocytes % Cancelled Blast Cells % Cancelled Plasma Cell % (Manual) Cancelled Other Cells % Cancelled Nucleated RBC % Cancelled 0 Nucleated RBCs/100 WBC Cancelled Differential Comment Cancelled Diff Path Review Cancelled Hypersegmented Neuts Cancelled Atypical Lymphocytes Cancelled Reactive Lymphocytes Cancelled Smudge Cells Cancelled Toxic Granulation Cancelled Toxic Vacuolation Cancelled Dohle Bodies Cancelled Mandi Rods Cancelled Platelet Estimate Cancelled Plt Morphology Comment Cancelled RBC Morphology Cancelled Cancelled Polychromasia Cancelled Hypochromasia Cancelled Basophilic Stippling Cancelled Anisocytosis Cancelled Microcytosis Cancelled Macrocytosis Cancelled Spherocytes Cancelled Sickle Cells Cancelled Target Cells Cancelled Tear Drop Cells Cancelled Ovalocytes Cancelled Stomatocytes Cancelled [place] Bodies Cancelled Akila Cells Cancelled Bite Cells Cancelled Crenated Cell Cancelled Acanthocytes (Spur) Cancelled Rouleaux Cancelled Schistocytes Cancelled Sodium Cancelled 137 Potassium Cancelled 3.7 Chloride Cancelled 105 Carbon Dioxide Cancelled 20.2 L Anion Gap Cancelled 12 BUN Cancelled 12 Creatinine Cancelled 0.75 Estim Creat Clear Calc Cancelled 141.13 Est GFR (MDRD) Non-Af Cancelled 108 BUN/Creatinine Ratio Cancelled 15.4 Glucose Cancelled 82 Calcium Cancelled 8.7 Troponin T High Sens Cancelled < 6 Urine Color Urine Clarity Urine pH Ur Specific [place] Urine Protein Urine Glucose (UA) Urine Ketones Urine Occult Blood Urine Nitrite Urine Bilirubin Urine Urobilinogen Ur Leukocyte Esterase Urine RBC Urine WBC Ur Squamous Epith Cells Urine Bacteria Urine Mucus 05/03/25 14:40 WBC Corrected WBC RBC Hgb Hct MCV MCH MCHC RDW Std Deviation RDW Coeff of Katt Plt Count MPV Immature Gran % (Auto) Neut % (Auto) Lymph % (Auto) Story % (Auto) Eos % (Auto) Baso % (Auto) Absolute Neuts (auto) Absolute Lymphs (auto) Total Counted Neutrophils % (Manual) Band Neutrophils % Lymphocytes % (Manual) Monocytes % (Manual) Eosinophils % (Manual) Basophils % (Manual) Metamyelocytes % Myelocytes % Promyelocytes % Blast Cells % Plasma Cell % (Manual) Other Cells % Nucleated RBC % Nucleated RBCs/100 WBC Differential Comment Diff Path Review Hypersegmented Neuts Atypical Lymphocytes Reactive Lymphocytes Smudge Cells Toxic Granulation Toxic Vacuolation Dohle Bodies Mandi Rods Platelet Estimate Plt Morphology Comment RBC Morphology Polychromasia Hypochromasia Basophilic Stippling Anisocytosis Microcytosis Macrocytosis Spherocytes Sickle Cells Target Cells Tear Drop Cells Ovalocytes Stomatocytes [place] Bodies [place]ila Cells Bite Cells Crenated Cell Acanthocytes (Spur) Rouleaux Schistocytes Sodium Potassium Chloride Carbon Dioxide Anion Gap BUN Creatinine Estim Creat Clear Calc Est GFR (MDRD) Non-Af BUN/Creatinine Ratio Glucose Calcium Troponin T High Sens Urine Color Yellow Urine Clarity Sl. Cloudy Urine pH 6.0 Ur Specific [place] 1.015 Urine Protein Negative Urine Glucose (UA) Normal Urine Ketones Negative Urine Occult Blood Negative Urine Nitrite Negative Urine Bilirubin Negative Urine Urobilinogen Normal Ur Leukocyte Esterase 500 H Urine RBC 0-5 SEEN Urine WBC 25-50 SEEN Ur Squamous Epith Cells 10-25 SEEN Urine Bacteria 1+ Urine Mucus 0 SEEN Radiography Chest X-Ray - ED: 1 View, Read by ED Physician, Read by Radiologist and No Acute Disease Diagnostic Testing: Clinical Impression(s) from Imaging Studies Chest X-Ray 05/03/25 13:49 IMPRESSION: Negative Chest. Reading Location: [id number] Abdomen/Pelvis CT 05/03/25 14:07 IMPRESSION: UNREMARKABLE NONCONTRAST CT OF THE ABDOMEN AND PELVIS Reading Location: [facility] Portable 1 view chest x-ray was obtained. On my independent interpretation, lung bowden are clear. There is normal cardiac silhouette. Bony thorax is normal. There is no acute process noted. Radiologist also interpreted the x-ray and agrees. CT scan of the abdomen and pelvis was obtained. There is no evidence of obstruction or perforation. There is no free air or free fluid. There is no acute abnormality noted. This was interpreted by the radiologist and was also independently reviewed by myself. EKG Initial EKG: Attestation: I personally reviewed and interpreted this EKG as follows: Interpretation: Sinus Rhythm (89) and No Acute Injury Pattern Comments: EKG was obtained. On my independent interpretation, it showed a normal sinus rhythm with a rate of 89. NH interval, QRS interval, and QTc intervals were all normal. [place] was normal. There are no acute ST or T wave changes. Prior EKG tracings: available for review Prior: Unchanged (07/18/2024) Treatment and Re-Evaluation :: Patient was resting comfortably on reevaluation. Patient still complaining of right side pain. Patient was advised of her findings. Patient was given injection of Toradol here. Patient was given a dose of Macrobid. Patient was given a prescription for Macrobid. Patient was instructed to drink plenty of fluids. Patient was instructed to follow-up with her primary care physician in 5 to 7 days. Patient was instructed to return if worse in any way. Patient understood and was agreeable with the plan. All questions were answered. Discharge Plan Triage Chief Complaint: Chest Pain ED Provider: Edilson Michael Dx/Rx/DC Orders Clinical Impression: Urinary tract infection, Right flank pain, Left-sided chest pain Instructions: ED Chest Pain, Uncertain Cause, ED Flank Pain, Uncertain Cause, ED Cystitis Female Adult Prescriptions: New nitrofurantoin monohyd/m-cryst 100 mg capsule 100 mg PO Q12 Qty: 10 0RF Primary Care Provider: Dipika Colindres Referrals: Dipika Colindres MD [Primary Care Provider] - 5-7 Days Print Language: Italian Disposition Disposition: Home, Self Care Discharge Date/Time: 05/03/25 17:13
--- NOTE | 2025-05-03 13:49 | RAD_ITS ---
PROCEDURE: CHEST 1 VIEW (PORTABLE) 05/03/2025 REASON FOR EXAM: CHEST PAIN TECHNIQUE: Frontal view of the chest. COMPARISON: Chest x-ray of 07/10/2022. FINDINGS: Heart: The heart size is normal. Lungs: The lungs are clear. No pleural effusion or pneumothorax is seen. Bones: The bones are unremarkable. RAD/Chest 1 View (Portable) IMPRESSION: Negative Chest. Reading Location: [address]
[2025-05-03 14:03] VITALS: BP 121/72; PULSE 74; RESP 16; O2SAT 98
--- NOTE | 2025-05-03 14:07 | CT_ITS ---
PROCEDURE: ABDOMEN/PELVIS WITHOUT CONT 05/03/2025 REASON FOR EXAM: RIGHT FLANK PAIN Gastroparesis. TECHNIQUE: ABDOMEN/PELVIS WITHOUT CONT Noncontrast technique limits evaluation of the abdominal and pelvic viscera. Coronal and Sagittal reconstruction series were provided. One or more dose reduction techniques were used (e.g., Automated exposure control, adjustment of the mA and/or kV according to patient size, use of iterative reconstruction technique). RADIATION DOSE SUMMARY: CTDlvol: 24.18 mGy DLP: 1328.96 mGycm COMPARISON: Prior study dated July 18, 2024. FINDINGS: Lung bases: Unremarkable. Liver: Normal size. No obvious mass. Gallbladder: Surgically absent. Spleen: Normal size. Pancreas: Normal size. No surrounding inflammation. Adrenals: Unremarkable Kidneys: No urolithiasis. No hydronephrosis. Bladder: Unremarkable. Reproductive Organs: Uterus is unremarkable. Bowel: Unremarkable Appendix: The appendix is not identified. There is no inflammatory process identified in the right lower quadrant to suggest appendicitis. Lymph nodes: No suspicious lymph node enlargement. Vasculature: The abdominal aorta and IVC contours are normal. Noncontrast technique limits evaluation. Peritoneum / Retroperitoneum: Unremarkable Bones: Unremarkable CT/Abdomen/Pelvis without Cont IMPRESSION: UNREMARKABLE NONCONTRAST CT OF THE ABDOMEN AND PELVIS Reading Location: [place] [id number]
[2025-05-03 14:13] LABS: Hematocrit 39.9 % (37-47); Hemoglobin 13.0 g/dL (12.0-15.0); Immature Granulocytes Count 0.040 X10^3/uL (0.0-0.0); Mean Corp Hgb Conc 32.6 g/dL (32-36); Mean Corpuscular Volume 90.5 fL (81-99); Mean Platelet Vol. 9.2 fl (6.2-12.0); NRBC Flagged by Analyzer 0 % (0-5); Platelet Count 317 K/mm3 (150-450); RBC Distribution Width CV 13.0 % (11.6-14.6); RBC Distribution Width SD 42.8 fl (35.1-43.9); Red Blood Count 4.41 M/mm3 (4.2-5.4); White Blood Count 8.0 K/mm3 (4.4-11.0)
[2025-05-03 15:00] VITALS: BP 109/67; PULSE 67; RESP 18; O2SAT 97
[2025-05-03 15:05] LABS: Anion Gap 12 (5-15); BUN 12 mg/dL (4-19); BUN/Creat Ratio 15.4 RATIO (10-20); Calcium,Total 8.7 mg/dL (7.6-11.0); Carbon Dioxide 20.2 mmol/L (21.0-32.0); Chloride 105 mmol/L (98-108); Estimated Creatinine Clearance 141.13 ml/min (50-250); Glucose 82 mg/dL (70-99); Potassium 3.7 mmol/L (3.3-5.1)
[2025-05-03 15:19] LABS: Troponin T High Sensitivity < 6 ng/L (<=14)
[2025-05-03 15:28] LABS: Mucous, Urine 0 SEEN /hpf (<or=2+)
[2025-05-03 15:50] LABS: Color, Urine Yellow (Yellow); Glucose, Dipstick Normal (Normal); Ketone-Dipstick Negative (Negative); Leukocyte Esterase-Dipstick 500 /ul (Negative); Nitrite-Dipstick Negative (Negative); Occult Blood-Urine Negative /ul (Negative); Protein-Dipstick Negative (Negative); Specific Gravity, Urine 1.015 (1.002-1.030); Urine Bilirubin Dipstick Negative (Negative)
[2025-05-03 16:00] VITALS: BP 126/78; PULSE 60; RESP 17; O2SAT 100
[2025-05-03 16:25] LABS: Squamous Epithelial Cells - UA 10-25 SEEN /hpf (5-10)
[2025-05-03 16:27] LABS: Red Blood Cells-Urine 0-5 SEEN /hpf (0-5)
[2025-05-03] MEDS: Ketorolac 30 MG/ML Syringe IV (16:55)
[2025-05-03 17:00] VITALS: BP 103/56; PULSE 63; RESP 18; TEMP 36.9; O2SAT 100
== END 2025-05-03 17:13 | disposition home or self-care (01) ==
PROVIDERS: Emergency Provider Emergency Medicine; PCP Student in an Organized Health Care Education/Training Program; Visit Provider Emergency Medicine
DX: N39.0 Urinary tract infection, site not specified (principal); F31.9 Bipolar disorder, unspecified; R10.9 Unspecified abdominal pain; R07.89 Other chest pain; Z87.891 Personal history of nicotine dependence
CPT/HCPCS: 71045; 74176; 80048; 81001; 84484; 85025; 93005; 96374; 99284; A4216

== ENCOUNTER 2025-06-16 12:58 | Emergency (ER) | payer MEDICAID, SELFPAY ==
[2025-06-16 12:59] VITALS: BP 131/76; PULSE 100; RESP 18; TEMP 36.9; O2SAT 97; BMI 46.4
--- NOTE | 2025-06-16 13:30 | CT_ITS ---
PROCEDURE: BRAIN/HEAD WITHOUT CONTRAST 06/16/2025 REASON FOR EXAM: PAIN TECHNIQUE: BRAIN/HEAD WITHOUT CONTRAST Coronal and Sagittal reconstruction series were provided. One or more dose reduction techniques were used (e.g., Automated exposure control, adjustment of the mA and/or kV according to patient size, use of iterative reconstruction technique. RADIATION DOSE SUMMARY: CTDlvol: 44.99 mGy DLP: 762.36 mGycm COMPARISON: None FINDINGS: Brain: Unremarkable appearance of the brain parenchyma. No evidence of intracranial hemorrhage. No region of mass effect or midline shift. CSF Spaces: Normal. The ventricles are midline, without hydrocephalus. No extra-axial fluid collection. Sinuses/Mastoids: Unremarkable Bones: No destructive skull lesion. No skull fracture. Tongue piercing. CT/Brain/Head without Contrast IMPRESSION: There is no acute intracranial process Reading Location: [id number]
--- NOTE | 2025-06-16 13:31 | CT_ITS ---
PROCEDURE: ABDOMEN/PELVIS WITHOUT CONT 06/16/2025 REASON FOR EXAM: PAIN TECHNIQUE: ABDOMEN/PELVIS WITHOUT CONT Noncontrast technique limits evaluation of the abdominal and pelvic viscera. Coronal and Sagittal reconstruction series were provided. One or more dose reduction techniques were used (e.g., Automated exposure control, adjustment of the mA and/or kV according to patient size, use of iterative reconstruction technique). RADIATION DOSE SUMMARY: CTDlvol: 29.78 mGy DLP: 1793.51 mGycm COMPARISON: 05/03/2025 FINDINGS: Lung bases: Clear Liver: Normal Gallbladder: Cholecystectomy Spleen: Normal Pancreas: Normal Adrenals: Normal Kidneys: Normal. No radiopaque calculi. No hydronephrosis. No hydroureter. Bladder: Normal Reproductive Organs: Normal Bowel: Normal Appendix: Not definitely visualized Lymph nodes: No suspicious lymph node enlargement. Vasculature: Within normal limits Peritoneum / Retroperitoneum: Unremarkable Bones: Mild straightening of the lumbar lordosis. Mild disc height loss at L4- L5. Tiny bone island right hemisacrum. 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 CT/Abdomen/Pelvis without Cont IMPRESSION: 1. No acute process in the abdomen or pelvis. 2. No radiopaque renal or ureteral calculi. Reading Location: [id number]
--- NOTE | 2025-06-16 13:33 | EDS_ITS ---
HPI HPI - GI History of Present Illness Chief Complaint: Abd Pain Nausea/Vomiting/Emesis GI Symptom: Positive for Nausea Narrative Narrative: 35-year-old female presents with right upper quadrant abdominal pain and headache. She states she has had a headache behind her right eye for 2-1/2 weeks. Additionally, she states she has had right upper quadrant pain over the last few days. She has history of gastroparesis being taken care of a doctor in [place]. They do not know why she has gastroparesis but she has frequent flareups. States she is nauseated but not vomiting. No fever but has had the chills. Has had diarrhea as well. No exacerbating or alleviating factors to her headache nor to her abdominal pain. She is status post cholecystectomy remotely. [facility] Medical History Right ankle sprain Right ankle pain Gastroparesis Wears glasses Bipolar disorder Depression Anxiety Alcohol use Arthritis Excessive bleeding Easy bruising Restless legs Back pain Migraine headache Seizures Loss of consciousness Diarrhea Nausea Gastric reflux Asthma Smoker Leg cramps Home Medications ?Medication ?Instructions ?Recorded ?Last Taken ?Type NK 06/16/25 Unknown History Allergy/AdvReac Type Severity Reaction Status Date / Time Iodinated Contrast Media Allergy Nausea/Vom/ Verified 06/16/25 13:01 (DYEE) Diarrhea Penicillins Allergy Hives Verified 06/16/25 13:01 Sulfa (Sulfonamide Allergy Hives Verified 06/16/25 13:01 Antibiotics) Family History Grandfather Cancer pancreatic Grandfather Cancer unknown Father COPD (chronic obstructive pulmonary disease) Hypertension Mother Diabetes Thyroid disorder Surgical History History of salpingectomy Hx of cholecystectomy H/O knee surgery History of tonsillectomy and adenoidectomy Social History household members: significant other and children Smoking Status: Former smoker quit date: 04/24/23 alcohol intake: never substance use type: does not use ROS ROS ED ROS Narrative Review of systems positive for right upper quadrant abdominal pain, nausea, diarrhea, and chills. Positive headache behind right eye for 2-1/2 weeks. No exacerbating or alleviating factors. History of gastroparesis and remote chandrika cystectomy. EXAM Physical Exam Narrative Exam Narrative: Afebrile. Vital signs noted. Nontoxic-appearing. Cardiovascular examination regular rate and with borderline tachycardia. Lungs clear to auscultation bilaterally. Abdomen is soft mild tenderness to palpation in the right upper quadrant, no guarding or rebound. Positive bowel sounds. Neurological examination nonfocal, nonlateralizing. PERRL, EOMI. Moist mucous membranes. Const Vital Signs: 06/16/25 12:59 06/16/25 14:58 06/16/25 16:00 Temperature 98.4 F Temperature Source Oral Pulse Rate 100 88 82 Respiratory Rate 18 16 Blood Pressure 131/76 H 125/78 H 118/57 L Blood Pressure Mean 94 93 77 Pulse Ox 97 100 100 Oxygen Delivery Method Room Air Room Air Room Air MDM MDM MDM Narrative Medical decision making narrative: Differential diagnosis includes but not limited to migraine headache versus new onset daily headache. I have low suspicion for intracranial hemorrhage. Regarding her abdominal pain she may have nonspecific abdominal pain versus gastroparesis versus colitis versus diverticulitis. As she is s/p cholecystectomy I do not think that she has gallbladder pathology. She was bolused saline and given ondansetron for nausea. Comprehensive workup was pursued. I reviewed her prior records and she has had problems with gastroparesis and abdominal pain in the past. I reviewed her laboratory work and she has normal white count of 8.4 with hemog lobin normal at 13.2, hematocrit 39.9, platelet count normal at 296. CMP is grossly unremarkable with a normal BUN and creatinine, normal sodium and potassium and normal chloride. LFTs are grossly unremarkable. Lipase normal at 20 so I doubt pancreatitis as a cause of pain. Serum test is negative. Urinalysis is negative for infection with 0-5 WBCs. I do not feel antibiotics are indicated. Negative ketones. I reviewed the radiology reports of the CT of the brain which shows no acute process, no hemorrhage or mass, and additionally I reviewed the radiology report of the CT of the abdomen and pelvis which shows no acute process. Patient requested something for her headache. She had been given Zofran initially. This does not sound migrainous so I do not think that she needs a triptan, but she was administered Toradol intravenously and told to follow-up with her primary care provider. She may need referral to neurology for daily persistent headache as well and perhaps other outpatient imaging. Return instructions to the emergency department reviewed. Disposition is discharged home in stable condition. History & Record Review Discussion w/independent historian: Patient Additional record(s) reviewed:: Prior ED visit Lab Data Attestation: I reviewed the patient's lab results. Labs: Laboratory Results - last 24 hr 06/16/25 13:50 WBC 8.4 RBC 4.51 Hgb 13.2 Hct 39.9 MCV 88.5 MCH 29.3 MCHC 33.1 RDW Std Deviation 43.0 RDW Coeff of Katt 13.4 Plt Count 296 MPV 9.0 Immature Gran % (Auto) 0.200 Neut % (Auto) 79.0 H Lymph % (Auto) 12.9 L Butts % (Auto) 5.8 Eos % (Auto) 1.6 Baso % (Auto) 0.5 Absolute Neuts (auto) 6.6 Absolute Lymphs (auto) 1.08 Nucleated RBC % 0 Sodium 140 Potassium 3.9 Chloride 105 Carbon Dioxide 23.9 Anion Gap 11 BUN 12 Creatinine 0.73 Estim Creat Clear Calc 145.40 Est GFR (MDRD) Non-Af 110 BUN/Creatinine Ratio 16.0 Glucose 88 Calcium 9.3 Total Bilirubin 0.33 AST 16 ALT 9 Alkaline Phosphatase 104 Total Protein 6.5 Albumin 3.8 Globulin 2.7 Albumin/Globulin Ratio 1.4 Lipase 20 Serum , Qual NEGATIVE Urine Color Yellow Urine Clarity Clear Urine pH 6.0 Ur Specific Johnson 1.020 Urine Protein 15 H Urine Glucose (UA) Normal Urine Ketones Negative Urine Occult Blood Negative Urine Nitrite Negative Urine Bilirubin Negative Urine Urobilinogen Normal Ur Leukocyte Esterase 25 H Urine RBC 0 SEEN Urine WBC 0-5 SEEN Ur Squamous Epith Cells 0-5 SEEN Urine Bacteria 0 SEEN Urine Mucus 0 SEEN Radiography Diagnostic Testing: Clinical Impression(s) from Imaging Studies Brain CT 06/16/25 13:30 IMPRESSION: There is no acute intracranial process Reading Location: [facility] Abdomen/Pelvis CT 06/16/25 13:31 IMPRESSION: 1. No acute process in the abdomen or pelvis. 2. No radiopaque renal or ureteral calculi. Reading Location: [facility] Discharge Plan Triage Chief Complaint: Abd Pain Other Complaint: Headache ED Provider: Spike Redmond Dx/Rx/DC Orders Clinical Impression: Headache, Abdominal pain Instructions: ED Abdominal Pain Unkn Cause Fem, ED Headache Unspecified Prescriptions: No Action NK Primary Care Provider: Dipika Colindres Referrals: Dipika Colindres MD [Primary Care Provider] - 3-5 Days if not improving Activity Restrictions/Additional Instructions: Follow-up with your primary care provider. You may need referral to neurology if you have persistent headache as you may be having the start of migraine headaches. Return with fever, worsening symptoms. Print Language: Thai Disposition Disposition: Home, Self Care
[2025-06-16] MEDS: 0.9% Normal Saline (1000mL) 1,000 ML 999 ML IV (13:48)
[2025-06-16 14:00] LABS: Mucous, Urine 0 SEEN /hpf (<or=2+); Red Blood Cells-Urine 0 SEEN /hpf (0-5)
[2025-06-16 14:01] LABS: Color, Urine Yellow (Yellow); Glucose, Dipstick Normal (Normal); Ketone-Dipstick Negative (Negative); Leukocyte Esterase-Dipstick 25 /ul (Negative); Nitrite-Dipstick Negative (Negative); Occult Blood-Urine Negative /ul (Negative); Protein-Dipstick 15 mg/dl (Negative); Specific Gravity, Urine 1.020 (1.002-1.030); Urine Bilirubin Dipstick Negative (Negative)
[2025-06-16 14:02] LABS: Hematocrit 39.9 % (37-47); Hemoglobin 13.2 g/dL (12.0-15.0); Immature Granulocytes Count 0.020 X10^3/uL (0.0-0.0); Mean Corp Hgb Conc 33.1 g/dL (32-36); Mean Corpuscular Volume 88.5 fL (81-99); Mean Platelet Vol. 9.0 fl (6.2-12.0); NRBC Flagged by Analyzer 0 % (0-5); Platelet Count 296 K/mm3 (150-450); RBC Distribution Width CV 13.4 % (11.6-14.6); RBC Distribution Width SD 43.0 fl (35.1-43.9); Red Blood Count 4.51 M/mm3 (4.2-5.4); White Blood Count 8.4 K/mm3 (4.4-11.0)
--- OUTSIDE RECORDS SUMMARY | 2025-06-16 14:05 | XMS RPT_ITS | CCD ---
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 Kayley Dobson Primary Care Provider [phone] Dr. Kayley Dobson Referring Provider Dr. Alhaji Loving Attending Provider Kayley Dobson Unavailable Moomaw, Armando I Unavailable Unavailable Moomaw, CENTERPUNCHER Armando I Attending Unavailable Dr. Kayley Dobson Primary Care Unavailab Fortino Contreras Primary Care Provider Dr. Kayley Dobson Primary Care Provider [phone] Dr. Kayley Dobson Referring Provider Dr. Alhaji Loving Attending Provider [phone] Dr. Alex Linn Attending Provider [phone] Dr. Kayley Dobson Primary Care Provider [phone] Dr. Kayley Dobson Referring Provider MD Scotty Rodriguez Attending Provider DR KAYLEY DOBSON DO Primary Care Unavailable MALENA RUIZ PA-C Attending Unavailable OLYA CORONADO, DR HOOVER Primary Care Unavailable RISA SANTOS MD Attending Unavailable OLYA CORONADO, DR HOOVER Attending Unavailable OLYA CORONADO, DR HOOVER Primary Care Unavailable OLYA CORONADO, DR HOOVER Primary Care Unavailable OLYA DO, DR HOOVRE Attending Unavailable MAST LIVESTOCK BUYER-CENTERPUNCHER, KOJO Attending Unavailabl e OLYA DO, DR HOOVER Primary Care Unavailable OLYA DO, DR HOOVER Attending Unavailable OLYA DO, DR HOOVER Primary Care Unavailable WAYT, FORTINO Jabier Primary Care Unavailable SHAINA BOLTON Referring Unavailable HARMAN OLIVER Attending Unavailable WAYT, FOTRINO P Primary Care Unavailable OZ JONES Referring Unavailable WAYT, FORTINO P Primary Care Unavailable WAYT, FORTINO P Primary Care Unavailable WAYT, FORTINO P Primary Care Unavailable OZ JONES Attending Unavailable OZ JONES Referring Unavailable WAYT, FORTINO P Primary Care Unavailable OZ JONES Referring Unavailable Olya OLMOS, [facility] Primary Care Provider Unatemi Dobson DO, Kayley Johnson Primary Care Provider [phone] KAYLEY DOBSON Primary Care Unavailable CAMERON AVILEZ Attending Unavailable Olya OLMOS, [facility] Primary Care Provider Unavadarryn cortes Unavailable Primary Care Provider UnavailMaría Barnhart MD Primary Care Provider [phone] OLYA CORONADO, DR HOOVER Attending Unavailable OLYA CORONADO, DR HOOVER Primary Care Unavailable MARÍA HERNANDEZ Primary Care Unavailable ALEXUS STEPHENS Attending Unavailable MIGUEL RASHID JR Primary Care Unavailable MIGUEL RASHID JR Attending Unavailable KAYLEY DOBSON DO Consulting Unavailable KAYLEY DOBSON DO Referring Unavailable MIGUEL RASHID JR Admitting Unavailable PROVIDER, UNKNOWN Consulting Unavailable DINAH VÁSQUEZ MD Primary Care Unavailable DINAH VÁSQUEZ MD Attending Unavailable KAYLEY DOBSON DO Referring Unavailable DINAH VÁSQUEZ MD Admitting Unavailable KAYLEY DOBSON DO Consulting Unavailable PROVIDER, UNKNOWN Consulting Unavailable KAYLEY DOBSON DO Consulting Unavailable RODMARC Primary Care Unavailable RODMARC STEVENSON Attending Unavailable RODMARC STEVENSON Admitting Unavailable PROVIDER, UNKNOWN Consulting Unavailable KAYLEY DOBSON DO Referring Unavailable KAYLEY DOBSON DO Consulting Unavailable RODMARC Primary Care Unavailable RODMARC Attending Unavailable RODMARC Admitting Unavailable PROVIDER, UNKNOWN Consulting Unavailable KAYLEY DOBSON DO Consulting Unavailable KAYLEY DOBSON DO Referring Unavailable SEPULVEDA, SELWYN C Primary Care Unavailable SEPULVEDA, SELWYN C Attending Unavailable SEPULVEDA, SELWYN C Admitting Unavailable PROVIDER, UNKNOWN Consulting Unavailable LEMCAMERON CALLES D Primary Care Unavailable LEMCAMERON CALLES D Attending Unavailable CAMERON AVILEZ D Admitting Unavailable RUDI DUVAL DO Primary Care Unavailable RUDI DUVAL DO Attending Unavailable RUDI DUVAL DO Admitting Unavailable KAYLEY DOBSON DO Consulting Unavailable KAYLEY DOBSON DO Referring Unavailable PROVIDER, UNKNOWN Consulting Unavailable RUDI DUVAL DO Primary Care Unavailable RUDI DUVAL DO Attending Unavailable RUDI DUVAL DO Admitting Unavailable MARÍA HERNANDEZ MD Primary Care Unavailable MARÍA HERNANDEZ MD Consulting Unavailable MARÍA HERNANDEZ MD Admitting Unavailable MARÍA HERNANDEZ MD Attending Unavailable PROVIDER, UNKNOWN Consulting Unavailable PROVIDER, UNKNOWN Consulting Unavailable KAYLEY DOBSON DO Consulting Unavailable MARÍA HERNANDEZ MD Admitting Unavailable MARÍA HERNANDEZ MD Primary Care Unavailable MARÍA HERNANDEZ MD Attending Unavailable PROVIDER, UNKNOWN Consulting Unavailable KAYLEY DOBSON DO Consulting Unavailable MARÍA HERNANDEZ MD Admitting Unavailable MARÍA HERNANDEZ MD Primary Care Unavailable MARÍA HERNANDEZ MD Attending Unavailable PROVIDER, UNKNOWN Consulting Unavailable OZ VILLAFANA DO Primary Care Unavailable OZ VILLAFANA DO Attending Unavailable KAYLEY DOBSON DO Consulting Unavailable KAYLEY DOBSON DO Referring Unavailable OZ VILLAFANA DO Admitting Unavailable PROVIDER, UNKNOWN Consulting Unavailable MARÍA HERNANDEZ MD Referring Unavailable CAMERON AVILEZ Primary Care Unavailable CAMERON AVILEZ Attending Unavailable CAMERON AVILEZ Admitting Unavailable MARÍA HERNANDEZ MD Consulting Unavailable PROVIDER, UNKNOWN Consulting Unavailable PROVIDER, UNKNOWN Consulting Unavailable NO, PHYSICIAN Primary Care Unavailable DEXTER MCGEE Attending Unavailable ANGELIQUE HAMMONDS Attending Unavailab MARÍA Frias Primary Care Unavailable ANGELIQUE HAMMONDS Attending Unavailab le NO, PHYSICIAN Primary Care Unavailable MARÍA HERNANDEZ Primary Care Unavailable ANGELIQUE HAMMONDS Attending Unavailab María Frias MD Primary Care Provider Dr. María Hernandez MD Primary Care Provider Dr. Edilson Michael DO Emergency Provider Kalisetti, María Primary Care Unavailable Edilson Michael Attending Unavailable Kalisetti, María Primary Care Unavailable Inocencio Ruiz Attending Unavailable KALISETTI, MARÍA Primary Care Unavailable KALISETTI, MARÍA Primary Care Unavailable CLAIRE SHANE Attending Unavailable KALISETTI, MARÍA Primary Care Unavailable ANIL WITT Attending Unavailable KALISETTI, MARÍA Primary Care Unavailable MERON JORGENSEN Attending Unavailable KALISETTI, MARÍA Primary Care Unavailable KALISETTI, MARÍA Primary Care Unavailable FORTINO KOHLI Attending Unavailable KALISETTI, MARÍA Primary Care Unavailable INDRA SANTOS Attending Unavailable KALISETTI, MARÍA Primary Care Unavailable PARVIZ CARRANZA Attending Unavailable ODETTE ROUSSEAU Admitting Unavailable CLAIRE RUIZ Attending Unavailable CLAIRE RUIZ Referring Unavailable KALISETTI, MARÍA Primary Care Unavailable OZ JONES Attending Unavailable SELF Referring Unavailable SELF Referring Unavailable CLAIRE FLANAGAN Attending Unavailable LUCAS HANCOCK Referring Unavailable LUCAS HANCOCK Attending Unavailable ARASELI RAMOS Attending Unav ailable SELF Referring Unavailable LUCAS HANCOCK Attending Unavailable Allergies Allergy Classification Reported Allergen(s) Allergy Type Date of Onset Reaction(s) Facility Diatrizoate (1 source) Diatrizoate Drug Allergy 05-05-20 [facility] Penicillins (antibiotic) (2 sources) Amoxicillin Drug Allergy 05-05-20 [facility] Sulfonamides (antibiotic) (1 source) Sulfonamides (Antibiotic) Drug Allergy 05-05-20 [facility] (17 sources) Amoxicillin; Translations: [amoxicillin] Drug Allergy 05-05-20 Unknown/Unspec ified, Other [facility] (10 sources) Diatrizoate Drug Allergy 05-05-20 [facility] (16 sources) Penicillins; Translations: [PENICILLINS] Propensity to adverse reactions to drug 11-12-19 12 [facility] (2 sources) Sulfonamides (Antibiotic) Propensity to adverse reactions to drug 05-05-20 [facility] (20 sources) Sulfonamides (Antibiotic); Translations: [SULFA (SULFONAMIDE ANTIBIOTICS)] Propensity to adverse reactions to drug 01-26-20 13 [facility] (4 sources) Iodine And Iodide Containing Products; Translations: [IODINE AND IODIDE CONTAINING PRODUCTS] Propensity to adverse reactions to drug 05-20-20 20 [facility] (1 source) Penicillin V; Translations: [penicillin V] Drug Allergy Unknown/Unspec ified [facility] (1 source) Sulfonamides (Antibiotic); Translations: [Sulfa (Sulfonamide Antibiotics)] Drug allergy (disorder) Unknown/Unspec ified [facility] (9 sources) Contrast media; Translations: [iodinated radiocontrast agents] Drug allergy vomiting [facility] (10 sources) Penicillin; Translations: [penicillin] Drug Allergy [facility] (9 sources) Sulfonamides (Antibiotic); Translations: [sulfa drugs] Drug allergy [facility] (20 sources) Iodinated Contrast Media; Translations: [IODINATED CONTRAST MEDIA] Allergy to substance 03-03-20 22 Vomiting, Nausea/vomitin [facility] (1 source) Sulfamethizole Drug Allergy [facility] (20 sources) Penicillins Drug Allergy 11-12-19 12 [facility] Work Phone: (6 sources) Penicillins Allergy to substance 01-14-20 23 [facility] (2 sources) Iodine; Translations: [IODINE] Drug Allergy 05-20-20 20 [facility] Work Phone: (8 sources) Penicillins Propensity to adverse reactions to drug 05-05-20 20 [facility] (8 sources) Sulfonamides (Antibiotic) Propensity to adverse reactions to drug 05-05-20 [facility] (1 source) Penicillins Drug allergy (disorder) [facility] (1 source) Sulfonamides (Antibiotic) Drug allergy (disorder) [facility] (1 source) CONTRAST MEDIA, IODINE RELATED Drug allergy (disorder) [facility] (3 sources) Penicillins Drug Allergy 11-12-19 12 [facility] (1 source) Penicillins Drug allergy (disorder) 05-03-20 25 [facility] NEGATED: Highlighted row has been ruled out! (1 source) natural latex rubber; Translations: [LATEX, NATURAL RUBBER] Drug allergy (disorder) [facility] NEGATED: Highlighted row has been ruled out! (1 source) No IV Contrast Allergy.; Translations: [IV Dye, Iodine Containing] Drug allergy (disorder) [facility] Medications Current Medications Medication Drug Class(es) Dates Sig (Normalized) Sig (Original) Albuterol (Eqv-ProAir HFA) 90 mcg/inh inhalation aerosol (9 sources) Start: 10-05-2023 End: 02-02-2024 take 1 dose by inhalation every six hours as needed for wheezing Albuterol (Eqv-ProAir HFA) 90 mcg/inh inhalation aerosol Dose = 2 puff(s), Inhalation, q6hr, PRN Wheezing, # 8.5 gram(s), 3 Refill(s), Pharmacy: [id number], 166, cm, 09/28/23 13:00:00 EST, Height, kg, 09/28/23 13:00:00 EST, Dosing Weight Start Date: 10/05/23 Stop Date: 02/02/24 Status: Ordered Start: 02-16-2023 End: 03-18-2023 take 1 dose by inhalation every six hours as needed for wheezing Albuterol (Eqv-ProAir HFA) 90 mcg/inh inhalation aerosol Dose = 2 puff(s), Inhalation, q6hr, PRN Wheezing, # 8.5 gram(s), 0 Refill(s), Pharmacy: [facility]/pharmacy #[id number], 165, cm, 02/16/23 13:33:00 EDT, Height, kg, 02/16/23 13:33:00 EDT, Dosing Weight Start Date: 02/16/23 Stop Date: 03/18/23 Status: Ordered Start: 02-16-2023 End: 03-18-2023 take 1 dose by inhalation every six hours as needed for wheezing Albuterol (Eqv-ProAir HFA) 90 mcg/inh inhalation aerosol Dose = 2 puff(s), Inhalation, q6hr, PRN PRN Wheezing, # 8.5 gram(s), 0 Refill(s), [id number], 165, cm, 02/16/23 13:33:00 EDT, Height, kg, 02/16/23 13:33:00 EDT, Dosing Weight Start Date: 02/16/23 Stop Date: 03/18/23 Status: Ordered Start: 12-25-2021 End: 01-24-2022 take 1 dose by inhalation every six hours as needed for wheezing Albuterol (Eqv-ProAir HFA) 90 mcg/inh inhalation aerosol Dose = 2 puff(s), Inhalation, q6hr, PRN Wheezing, # 8.5 gram(s), 0 Refill(s), [id number], 165, cm, 12/25/21 15:09:00 EST, Height, kg, 12/25/21 15:09:00 EST, Dosing Weight Start Date: 12/25/21 Stop Date: 01/24/22 Status: Ordered Start: 09-03-2021 End: 10-03-2021 take 1 dose by inhalation every six hours as needed for wheezing Albuterol (Eqv-ProAir HFA) 90 mcg/inh inhalation aerosol Dose = 2 puff(s), Inhalation, q6hr, PRN Wheezing, # 8.5 gram(s), 0 Refill(s), [id number], 165.1, cm, 09/03/21 13:11:00 EST, Height, kg, 09/03/21 13:11:00 EST, Dosing Weight Start Date: 09/03/21 Stop Date: 10/03/21 Status: Ordered apixaban 5 mg oral tablet (20 sources) Factor Xa Inhibitor Start: 07-23-2024 End: 07-23-2024 take 1 dose by mouth once 10 mg, Oral, ONCE, 1 dose, On 07/23/24 at 1415, Due to the rapid onset of action of apixaban, no overlap is needed with other anticoagulants (e.g. enoxaparin, heparin). Avoid use while neuraxial catheter in place and do not administer for at least 24 hours after removal of neuraxial catheter., Indications: Venous Thromboembolism Start: 07-23-2024 End: 06-08-2025 take 1 tablet by mouth every twelve hours apixaban 5 MG tablet Take 1 tablet by mouth every 12 hours. 180 tablet 3 08/14/2024 Active Start: 07-23-2024 End: 08-22-2024 take 2 tablets by mouth twice daily, then take 1 tablet by mouth twice daily apixaban 5 MG tablet Take 2 tablets (10 mg) by mouth twice daily for 7 days, then 1 tablet (5 mg) twice daily. 74 tablet 07/23/2024 Active ARIPiprazole 5 mg oral tablet (2 sources) Atypical Antipsychotic Start: 05-09-2022 take 1 tablet by mouth once daily Aripiprazole (Abilify) 5 mg Tablet Active 5 MG PO DAILY May 09, 2022 12:00am clindamycin 300 mg oral capsule (4 sources) Lincosamide Antibacterial Start: 07-29-2024 End: 07-29-2024 take 1 dose by mouth once 300 mg, Oral, ONCE, 1 dose, On 07/29/24 at 1815 Start: 07-29-2024 End: 08-04-2024 take 1 capsule by mouth four times daily clindamycin 300 MG capsule Take 1 capsule by mouth 4 times daily for 5 days. 20 capsule 07/29/2024 08/04/2024 Discontinued (Stop Taking at Discharge) cyclobenzaprine hydrochloride 10 mg oral tablet (14 sources) Muscle Relaxant Start: 04-22-2025 End: 04-22-2025 take 1 dose by mouth once 10 mg, Oral, ONCE, 1 dose, On 04/22/25 at 1715 Start: 02-15-2024 End: 02-19-2024 take 1 tablet by mouth three times daily as needed for muscle spasms cyclobenzaprine (Flexeril) 5 mg tablet Indications: Right arm pain Take 1 tablet (5 mg) by mouth 3 times a day as needed for muscle spasms for up to 4 days. 12 tablet 02/15/2024 02/19/2024 Active Start: 09-17-2020 End: 04-22-2025 take 1 tablet by mouth three times daily as needed for muscle spasms Cyclobenzaprine 10 MG tablet Take 1 tablet by mouth 3 times daily as needed for Muscle spasms. 21 tablet 04/22/2025 Active dicyclomine hydrochloride 10 mg oral capsule (4 sources) Anticholinergic Start: 08-02-2024 End: 08-02-2024 inject 1 dose by intramuscular injection once 20 mg, Intramuscular, ONCE, 1 dose, On Wed08/02/24 at 1815, IM USE ONLY ! Start: 04-05-2024 End: 04-05-2024 inject 1 dose by intramuscular injection once 20 mg, Intramuscular, ONCE, 1 dose, On Wed04/05/24 at 2115 Start: 08-17-2023 End: 08-24-2023 dicyclomine 10 mg oral capsu le Dose : 10 mg = 1 cap(s), Oral, QID, # 28 cap(s), 0 Refill(s) Start Date: 08/17/23 Stop Date: 08/24/23 Status: Ordered Start: 02-06-2022 dicyclomine 20 mg oral tablet Dose : 20 mg = 1 tab(s), Oral, QID, PRN abdominal discomfort, # 60 tab(s), 0 Refill(s), Pharmacy: [facility]/pharmacy #[id number], 165, cm, 12/25/21 15:09:00 EST, Height, kg, 12/25/21 15:09:00 EST, Dosing Weight Start Date: 02/06/22 Status: Ordered DULoxetine 60 mg delayed release oral capsule (6 sources) Serotonin and Norepinephrine Reuptake Inhibitor Start: 02-06-2022 take 60 mg by mouth twice daily Duloxetine Active 60 MG PO TWICE A DAY March 03, 2022 12:00am gabapentin 800 mg oral tablet (20 sources) Anti-epileptic Agent Start: 05-28-2025 End: 06-02-2025 take 1 tablet by mouth three times daily gabapentin 800 MG tablet Take 1 tablet by mouth 3 times daily for 5 days. 15 tablet 05/28/2025 06/02/2025 Active Start: 05-28-2025 End: 05-28-2025 take 800 mg by mouth three times daily 800 mg, Oral, 3 TIMES DAILY, First dose on Wed05/28/25 at 0900, Until Discontinued Start: 05-28-2025 End: 05-28-2025 take 1 dose by mouth once 800 mg, Oral, ONCE, 1 dose, On Wed05/28/25 at 0115 Start: 03-12-2024 End: 05-03-2025 take 1 capsule by mouth twice daily Gabapentin 300 mg capsule Discontinued 300 mg PO TWICE A DAY March 12, 2024 12:00am May 03, 2025 1:55pm Start: 04-08-2023 End: 06-08-2025 take 300 mg by mouth three times daily 300 mg, Oral, 3 TIMES DAILY, First dose on Ruth 08/03/24 at 1530, Until Discontinued Start: 12-22-2022 take 2 capsules by m outh once daily at bedtime gabapentin (NEURONTIN) 100 mg capsule Take 200 mg by mouth daily at bedtime. 0 12/22/2022 Active Comment on above: Take 200 mg by mouth daily at bedtime. Take 300 mg by mouth three times daily. Take 300 mg by mouth three times a day. Multivitamin preparation (3 sources) Start: 0 take 1 tablet by mouth once daily Multivitamin Dose = 1 tab(s), Oral, Daily, 0 Refill(s) Start Date: 07/09/20 Status: Ordered nabumetone 500 mg oral tablet (1 source) Nonsteroidal Anti-inflammatory Drug Start: 5 End: 5 take 1 tablet by mouth twice daily nabumetone 500 MG tablet Take 1 tablet by mouth 2 times daily for 5 days. 10 tablet 05/28/2025 06/02/2025 Active naproxen 500 mg oral tablet (18 sources) Nonsteroidal Anti-inflammatory Drug Start: 4 End: 4 take 1 dose by mouth once 500 mg, Oral, ONCE, 1 dose, On 07/29/24 at 1815 Start: 07-29-2024 End: 04-22-2025 take 1 tablet by mouth twice daily at mealtime naproxen 500 MG tablet Take 1 tablet by mouth 2 times daily with meals. 14 tablet 04/22/2025 Active Start: 09-17-2020 End: 06-08-2023 take 1 tablet by mouth twice daily Naproxen 500 mg tablet Discontinued 500 mg PO TWICE A DAY 14 0 May 23, 2023 12:00am June 08, 2023 2:44pm nitrofurantoin, macrocrystals 25 mg / nitrofurantoin, monohydrate 75 mg oral capsule (5 sources) Nitrofuran Antibacterial Start: 05-03-2025 take 1 capsule by mouth every twelve hours Nitrofurantoin Monohyd/M-Cryst 100 mg capsule Active 100 mg PO EVERY 12 HOURS 10 May 03, 2025 12:00am Start: 12-09-2023 End: 12-21-2023 take 1 capsule by mouth twice daily at mealtime nitrofurantoin monohydrate and macrocrystal (MACROBID) 100 mg capsule Take 1 capsule by mouth two times a day with meals. 10 capsule 0 12/09/2023 12/21/2023 Discontinued Comment on above: Take 1 capsule by mo [facility] two times a day with meals. omeprazole 20 mg delayed release oral capsule (6 sources) Proton Pump Inhibitor Start: 02-06-2022 omeprazole 20 mg oral delayed release capsule Dose : 20 mg = 1 cap(s), Oral, qDay, # 30 cap(s), 1 Refill(s), Pharmacy: [facility]/pharmacy #[id number], 165, cm, 12/25/21 15:09:00 EST, Height, kg, 12/25/21 15:09:00 EST, Dosing Weight Start Date: 02/06/22 Status: Ordered Start: 09-03-2021 End: 10-03-2021 omeprazole 20 mg oral delaye d release capsule Dose : 20 mg = 1 cap(s), Oral, qDay, # 30 cap(s), 0 Refill(s), Pharmacy: [facility]/pharmacy #[id number], 165.1, cm, 09/03/21 13:11:00 EST, Height, kg, 09/03/21 13:11:00 EST, Dosing Weight Start Date: 09/03/21 Stop Date: 10/03/21 Status: Ordered ondansetron 4 mg oral tablet, disintegrating (3 sources) Start: 09-03-2021 ondansetron 4 mg oral tablet, disintegrating Dose : 4 mg = 1 tab(s), Oral, q8h, PRN as needed for nausea/vomiting, 0 Refill(s) Start Date: 09/03/21 Status: Ordered PARoxetine hydrochloride 20 mg oral tablet (1 source) Serotonin Reuptake Inhibitor Start: 10-30-2021 Paxil 20 mg oral tablet Dose : 20 mg = 1 tab(s), Oral, qDay, # 30 tab(s), 1 Refill(s), Pharmacy: [facility]/pharmacy #[id number], 165.1, cm, 10/29/21 10:03:00 EST, Height, kg, 10/30/21 13:05:00 EST, Dosing Weight Start Date: 10/30/21 Status: Ordered predniSONE 20 mg oral tablet (20 sources) Start: 05-28-2025 End: 06-02-2025 take 3 tablets by mouth once daily in the morning, then take 3 tablets by mouth once daily predniSONE 20 MG tablet Take 3 tablets by mouth daily every morning for 5 days. Take 3 tablets daily x 5 days 15 tablet 05/28/2025 06/02/2025 Active Start: 02-15-2024 End: 02-20-2024 take 2 tablets by mouth once daily predniSONE (Deltasone) 20 mg tablet Indications: Right arm pain Take 2 tablets (40 mg) by mouth once daily for 5 days. 10 tablet 02/15/2024 02/20/2024 Active Start: 09-27-2023 End: 10-03-2023 take 1 tablet by mouth every six hours predniSONE 50 mg oral tablet Dose : 50 mg =, Oral, q6h, Take 13hrs/7hrs/1hr before procedure, # 3 tab(s), 0 Refill(s), 10/03/23 2:18:00 PM EST, CONTRAST PROPHYLAXIS , Pharmacy: [facility] #[id number], Contrast media allergy, 167, cm, 08/25/23 14:45:00 EDT, Height, kg, 08/31/23 14:35:00 EST, Dosing Weight Start Date: 09/27/23 Stop Date: 10/03/23 Status: Ordered Start: 05-04-2023 End: 07-01-2023 take 2 tablets by mouth every five hours, then take 2 tablets by mouth every hour predniSONE (DELTASONE) 20 mg tablet Indications: Contrast media allergy , Esophageal spasm Take 2 tablets (40mg) by mouth 5 hours prior to swallow studies. AND Take 2 tablets (40mg) by mouth 1 hour prior to swallow studies. Confirm timing of administration with radiology. 4 tablet 0 05/04/2023 07/01/2023 Discontinued Start: 03-08-2023 take 2 tablets by mo uth every five hours, then take 2 tablets by mouth every hour predniSONE (DELTASONE) 20 mg tablet Indications: Contrast media allergy Take 2 tablets (40mg) by mouth 5 hours prior to swallow studies. AND Take 2 tablets (40mg) by mouth 1 hour prior to swallow studies. Confirm timing of administration with radiology. 4 tablet 0 03/08/2023 Active Start: 04-02-2022 Prednisone Act fanny 0 PO DAILY April 02, 2022 12:00am take 50 mg by mouth at [address] scan, 50 mg 7 hours before, and 50 mg 1 hour before. Also take 50 mg of diphenhydramine 1 hour before. Start: 09-17-2020 End: 09-23-2020 take 2 tablets by mouth once daily, then take 1 tablet by mouth once daily predniSONE 20 MG tablet Take 2 tablets by mouth daily for 3 days, THEN 1 tablet daily for 3 days. 40,40,40,20,20,20. 9 tablet 0 09/17/2020 09/23/2020 Active Comment on above: Take 2 tablets (40mg ) by mouth 5 hours prior to swallow studies. AND Take 2 tablets (40mg) by mouth 1 hour prior to swallow studies. Confirm timing of administration with radiology. QUEtiapine 300 mg oral tablet (20 sources) Atypical Antipsychotic Start: 11-23-19 End: 08-22-20 take 1 tablet by mouth once daily at bedtime QUEtiapine (SEROQUEL) 300 mg tablet Take 300 mg by mouth daily at bedtime. 11/23/2022 08/22/2024 Discontinued Comment on above: Take 300 mg by mouth daily at bedtime. traMADol hydrochloride 50 mg oral tablet (2 sources) Opioid Agonist Start: 10-27-19 End: 11-01-19 traMADol 50 mg oral tablet Dose : 50 mg = 1 tab(s), Oral, q12h, PRN for pain, X 5 day(s), # 10 tab(s), 0 Refill(s), 11/01/21 19:03:00 EST, Abdominal pain, 93.2 Start Date: 10/27/21 Stop Date: 11/01/21 Status: Ordered Start: 09-03-2021 traMADol 50 mg oral tablet Dose : 50 mg = 1 tab(s), Oral, q12h, PRN for pain, # 12 tab(s), 0 Refill(s), 90.5 Start Date: 09/03/21 Status: Ordered vortioxetine 20 mg oral tabl et (3 sources) Start: 10-02-2021 Trintellix 20 mg oral tablet Dose : 20 mg = 1 tab(s), Oral, qDay, # 30 tab(s), 1 Refill(s), Pharmacy: [facility]/pharmacy #[id number], 165.1, cm, 10/02/21 13:50:00 EST, Height, kg, 10/02/21 13:50:00 EST, Dosing Weight Start Date: 10/02/21 Status: Ordered Start: 09-03-2021 End: 11-02-2021 Trintellix 10 mg oral tablet Dose : 10 mg = 1 tab(s), Oral, qDay, # 30 tab(s), 1 Refill(s), [id number], 165.1, cm, 09/03/21 13:11:00 EST, Height, kg, 09/03/21 13:11:00 EST, Dosing Weight Start Date: 09/03/21 Stop Date: 11/02/21 Status: Ordered Completed/Discontinued Medications Medication Drug Class(es) Dates Sig (Normalized) Sig (Original) acetaminophen 325 mg oral tablet (2 sources) Start: 08-22-2024 End: 08-22-2024 take 1 dose by mouth once 1,000 mg, Oral, ONCE, 1 dose, On Wed08/22/24 at 2245 Start: 08-02-2024 End: 08-04-2024 take 1 tablet by mouth every four hours as needed 650 mg, Oral, EVERY 4 HOURS NEEDED, Starting on Wed08/02/24 at 2128, Until Wed08/04/24 at 1217, Mild Pain, Oral temp > 100.4 F acetaminophen 325 mg / butalbital 50 mg / caffeine 40 mg oral tablet (3 sources) Barbiturate, Central Nervous System Stimulant, Methylxanthine Start: 04-15-2017 End: 01-05-2023 take 1 tablet by mouth every four hours as needed acetaminophen 325 mg-caffeine 40 mg-butalbital 50 mg (FIORICET) per tablet Take 1 tablet by mouth every 4 hours as needed. 10 tablet 0 04/15/2017 01/05/2023 Discontinued Comment on above: Take 1 tablet by vinnie th every 4 hours as needed. acetaminophen 325 mg / HYDROcodone bitartrate 5 mg oral tablet (14 sources) Opioid Agonist Start: 04-06-2024 End: 08-04-2024 take 1 tablet by mouth every four hours as needed hydroCODone-acetam inophen 5-325 MG tablet Indications: Upper abdominal pain Take 1 tablet by mouth every 4 hours as needed for up to 3 days. 10 tablet 04/06/2024 08/04/2024 Discontinued (Stop Taking at Discharge) Start: 05-09-2022 take 1 tablet by vinnie th every four hours as needed Hydrocodone-Acetaminophen Active 1 TABLE T PO EVERY 4 HOURS NEEDED 10 May 09, 2022 Start: 03-03-2022 take 1 tablet by vinnie th every six hours as needed Hydrocodone-Acetaminophen Active 1 TABLE T PO EVERY 6 HOURS NEEDED 10 3 March 03, 2022 Start: 11-05-2021 End: 11-10-2021 take 1 tablet by mouth every four hours as needed for pain [place] 325- 5 mg oral tablet Dose = 2 tab(s), Oral, q4h, PRN for pain, X 5 day(s), # 30 tab(s), 0 Refill(s), Pharmacy: [facility]/pharmacy #[id number], Acute post-operative pain, 165.1, cm, 11/05/21 10:18:00 EST, Height, 93.2, kg, 11/05/21 10:18:00 EST, Dosing Weight Start Date: 11/05/21 Stop Date: 11/10/21 Status: Ordered acetaminophen 325 mg / oxyCODONE hydrochloride 5 mg oral tablet (1 source) Opioid Agonist Start: 07-25-2024 End: 07-25-2024 1 tablet, Oral, ONCE, 1 dose, On Wed07/25/24 at 1915 [id number] 200 actuat albuterol 0.09 mg/actuat metered dose inhaler (20 sources) beta2-Adrenergic Agonist Start: 07-10-2022 End: 09-21-2023 Albuterol Sulfate (Ventolin Hfa) 90 mcg/actuation HFA aerosol inhaler Discontinued 1 - 2 NMA INHALATION EVERY 4 HOURS NEEDED as needed for Wheezing 1 July 10, 2022 12:00am September 21, 2023 3:39pm Start: 07-10-2022 End: 09-21-2023 take 1 puff(s) by inhalation every four hours as needed Albuterol Sulfate (Ventolin Hfa) 90 mcg/actuation HFA aerosol inhaler Discontinued 1 - 2 PUFF INHALATION EVERY 4 HOURS NEEDED 1 July 10, 2022 12:00am September 21, 2023 3:39pm Start: 06-18-2022 End: 06-08-2023 Albuterol Sulfate 90 mcg/act uation Hfa Aerosol Inhaler Discontinued 1 NMA INHALATION EVERY 6 HOURS as needed for SOB June 18, 2022 12:00am June 08, 2023 2:43pm Start: 06-18-2022 End: 06-08-2023 take 1 puff(s) by inhalation every six hours Albuterol Sulfate Discontinued 1 PUFF INHALATION EVERY 6 HOURS June 18, 2022 12:00am June 08, 2023 2:43pm Start: 06-07-2017 take 2 puff(s) by in halation every four hours as needed for wheezing albuterol HFA (PROAIR HFA) 90 mcg/actuation inhaler Inhale 2 Puffs as instructed every 4 hours as needed for Wheezing/Shortness of Breath. 1 Inhaler 06/07/2017 Active take 2 puff(s) by in halation four times daily as needed albuterol sulfate 90 mcg HFA Aerosol Inhaler, Ordered By: Soha Ovalle MD Directions: 2 puff by inhalation four times daily PRN shortness of breath Comment on above: Inhale 2 Puffs as in structed every 4 hours as needed for Wheezing/Shortness of Breath. aluminum hydroxide 40 mg/ml / magnesium hydroxide 40 mg/ml / simethicone 4 mg/ml oral suspension (1 source) Start: End: take 30 mL by mouth every six hours as needed aprepitant 80 mg oral capsule (19 sources) Substance P/Neurokinin-1 Receptor Antagonist Start: End: take 1 capsule by mouth once daily aprepitant (EMEND) 80 mg capsule Indications: Nausea and vomiting, unspecified vomiting type Take 1 capsule by mouth once daily. 30 capsule 5 11/03/2024 06/08/2025 Discontinued (Course of therapy completed) baclofen 10 mg oral tablet (18 sources) gamma-Aminobutyric Acid-ergic Agonist Start: End: take 1 tablet by mouth three times daily baclofen 10 mg tablet Indications: Chronic abdominal pain , Central sensitization to pain Take 1 tablet by mouth three times a day. 90 tablet 2 12/14/2023 12/21/2023 Discontinued Start: 05-04-2023 take 1 tablet by vinnie th twice daily baclofen 10 mg tablet Indications: Esophageal spasm Take 1 tablet by mouth twice daily. 60 tablet 0 05/04/2023 Active Comment on above: Take 1 tablet by vinnie th twice daily. Take 1 tablet by vinnie th three times a day. busPIRone hydrochloride 10 mg oral tablet (20 sources) Start: End: take 1 tablet by mouth three times daily busPIRone (BUSPAR) 10 mg tablet Indications: Gastroparesis Take 1 tablet by mouth three times a day. 90 tablet 5 08/15/2024 06/08/2025 Discontinued (Course of therapy completed) Start: 05-05-2023 End: 08-22-2024 take 1 tablet by mouth three times daily busPIRone 5 MG tablet Take 1 tablet by mouth Three times a day. 08/25/2023 Active Comment on above: Take 1 tablet by vinnie three times daily. Take 1 tablet by vinnie three times a day. 12 hr carBAMazepine 300 mg extended release oral capsule (6 sources) Mood Stabilizer Start: 07-10-20 End: 06-08-20 take 1 capsule by mouth twice daily Carbamazepine 300 mg capsule, ER multiphase 12 hr Discontinued 300 mg PO TWICE A DAY July 10, 2022 12:00am June 08, 2023 2:43pm cefTRIAXone (ROCEPHIN) 2 g in sodium chloride 0.9% (MB PLUS) 50 mL (total volume) IVPB (1 source) Start: 08-02-20 End: 08-02-20 2 g, Intravenous, Administer over 30 Minutes, ONCE, 1 dose, On Wed08/02/24 at 2100 cephalexin 500 mg oral capsule (4 sources) Cephalosporin Antibacterial Start: 01-13-20 End: 05-19-20 24 take 1 capsule by mouth every six hours Cephalexin 500 mg capsule Discontinued 500 mg PO EVERY 6 HOURS 28 0 January 13, 2024 12:00am March 12, 2024 11:43pm Start: 04-06-2023 End: 04-13-2023 cephalexin 250 mg oral capsu le Dose : 250 mg = 1 cap(s), Oral, QID, X 7 day(s), # 28 cap(s), 0 Refill(s), 04/13/23 17:19:00 EDT, Pharmacy: [facility]/pharmacy #[id number], 165, cm, 02/16/23 13:33:00 EDT, Height, 106.4 Start Date: 04/06/23 Stop Date: 04/13/23 Status: Ordered Start: 09-03-2021 End: 09-13-2021 cephalexin 500 mg oral capsu le Dose : 500 mg = 1 cap(s), Oral, q12h, X 10 day(s), # 20 cap(s), 0 Refill(s), 09/13/21 14:19:00 EST, Pharmacy: [facility]/pharmacy #[id number], 165.1, cm, 09/03/21 13:11:00 EST, Height, 97.9, kg, 09/03/21 13:11:00 EST, Dosing Weight Start Date: 09/03/21 Stop Date: 09/13/21 Status: Ordered citalopram 20 mg oral tablet (3 sources) Serotonin Reuptake Inhibitor Start: 08-27-2016 End: 01-05-2023 take 1 tablet by mouth once daily citalopram (CELEXA) 20 mg tablet Take 1 tablet by mouth once daily. 30 tablet 4 08/27/2016 01/05/2023 Discontinued Comment on above: Take 1 tablet by vinnie once daily. clonazePAM 0.5 mg oral tablet (20 sources) Benzodiazepine Start: 06-08-2023 End: 03-12-2024 take 1 tablet by mouth once daily Clonazepam 1 mg tablet Discontinued 1 mg PO DAILY June 08, 2023 12:00am March 12, 2024 11:44pm Start: 01-18-2023 End: 06-08-2025 take 1 tablet by mouth once daily as needed clonazePAM (KLONOPIN) 0.5 mg tablet Take 1 tablet by mouth once daily as needed for up to 7 days. 12/09/2023 06/08/2025 Discontinued (Course of therapy completed) Comment on above: Take 1 tablet by vinnie once daily as needed for up to 7 days. dexamethasone 6 mg oral tablet (7 sources) Corticosteroid Start: 05-27-2025 End: 05-27-2025 20 mg, Intravenous, ONCE, 1 dose, On Wed05/27/25 at 1999 Start: 07-10-2022 End: 06-08-2023 take 1 tablet by mouth once daily Dexamethasone (Decadron) 6 mg tablet Discontinued 6 mg PO DAILY 10 10 0 July 10, 2022 12:00am June 08, 2023 2:44pm diclofenac sodium 75 mg delayed release oral tablet (4 sources) Nonsteroidal Anti-inflammatory Drug Start: 09-28-2023 End: 10-28-2023 diclofenac sodium 75 mg oral delayed release tablet Dose : 75 mg = 1 tab(s), Oral, BID, # 60 tab(s), 0 Refill(s), Pharmacy: [facility] #[id number], Right sided abdominal pain, 166, cm, 09/28/23 13:00:00 EST, Height, kg, 09/28/23 13:00:00 EST, Dosing Weight Start Date: 09/28/23 Stop Date: 10/28/23 Status: Ordered Start: 02-16-2023 Voltaren 1% to pical gel Apply 1 joe, Topical, QID, # 100 gram(s), 0 Refill(s), Pharmacy: [facility]/pharmacy #[id number], Gel, 165, cm, 02/16/23 13:33:00 EDT, Height, 101.9 Start Date: 02/16/23 Status: Ordered diphenhydrAMINE hydrochloride 25 mg oral capsule (17 sources) Histamine-1 Receptor Antagonist Start: 05-27-2025 End: 05-27-2025 25 mg, Intravenous, ONCE, 1 dose, On Wed05/27/25 at 1999 Start: 08-02-2024 End: 08-02-2024 25 mg, Intravenous, ONCE, 1 dose, On Wed08/02/24 at 204 Start: 08-01-2024 End: 08-01-2024 50 mg, Intravenous, ONCE, 1 dose, On Wed08/01/24 at 2015 Start: 07-25-2024 End: 07-25-2024 50 mg, Intravenous, ONCE, 1 dose, On Wed07/25/24 at 1730 Start: 05-04-2023 End: 07-01-2023 take 2 capsules by mouth every five hours, then take 2 capsules by mouth every hour diphenhydrAMINE (BENADRYL) 25 mg capsule Indications: Contrast media allergy , Esophageal spasm Take 2 capsules (50mg) by mouth 5 hours prior to swallow studies. AND Take 2 capsules (50mg) by mouth 1 hour prior to swallow studies. Confirm timing of administration with radiology. 4 capsule 0 05/04/2023 07/01/2023 Discontinued Start: 03-08-2023 take 2 capsules by m outh every five hours, then take 2 capsules by mouth every hour diphenhydrAMINE (BENADRYL) 25 mg capsule Indications: Contrast media allergy Take 2 capsules (50mg) by mouth 5 hours prior to swallow studies. AND Take 2 capsules (50mg) by mouth 1 hour prior to swallow studies. Confirm timing of administration with radiology. 4 capsule 0 03/08/2023 Active Comment on above: Take 2 capsules (50m g) by mouth 5 hours prior to swallow studies. AND Take 2 capsules (50mg) by mouth 1 hour prior to swallow studies. Confirm timing of administration with radiology. docusate sodium 50 mg / sennosides, skilled nursing 8.6 mg oral tablet (1 source) Start: 08-03-20 End: 08-04-20 take 2 tablets by mouth twice daily 2 tablet, Oral, 2 TIMES DAILY, First dose on Wed08/03/24 at 1300, Until Discontinued famotidine 20 mg oral tablet (1 source) Histamine-2 Receptor Antagonist Start: 12-19-19 End: 12-25-19 take 1 tablet by mouth twice daily Pepcid 20 mg oral tablet ; 1 tab(s) orally 2 times a day Quantity: 14 Refills: 0 Ordered: 19-Dec-2019 Yumiko Bragg Start: 19-Dec-2019 End: 25-Dec-2019 Generic Substitution Allowed Comments: It is very important that you take or use this exactly as directed. Do not skip doses or discontinue unless directed by your doctor.Obtain medical advice before taking any non-prescription drugs as some may affect the action of this medication. Comment on above: It is very important that you take or use this exactly as directed. Do not skip doses or discontinue unless directed by your doctor.Obtain medical advice before taking any non-prescription drugs as some may affect the action of this medication. folic acid 0.4 mg oral tablet (20 sources) Start: 07-18-20 End: 05-03-20 take 0.4 mg by mouth once daily Folic Acid 400 mcg tablet Discontinued 0.4 mg PO DAILY July 18, 2024 12:00am May 03, 2025 1:55pm Start: 12-17-2022 End: 06-08-2025 take 1 tablet by mouth once daily folic acid 400 mcg tablet Take 400 mcg by mouth once daily. 12/17/2022 06/08/2025 Discontinued (Course of therapy completed) Comment on above: Take 400 mcg by mout h once daily. furosemide 20 mg oral tablet (1 source) Loop Diuretic Start: End: take 1 tablet by mouth once daily as needed for edema Furosemide 20 mg tablet Discontinued 20 mg PO DAILY as needed for edema July 18, 2024 12:00am May 03, 2025 1:55pm GI cocktail: alum/mag hydrox-simethicone(30m l)+lidocaine 2%(10ml) oral suspension 40 mL (1 source) Start: End: 4 take 1 dose by mouth once 40 mL, Oral, ONCE, 1 dose, On Wed08/22/24 at 2245 granisetron 1 mg oral tablet (18 sources) Serotonin-3 Receptor Antagonist Start: End: 5 take 1 tablet by mouth every twelve hours as needed granisetron HCl (KYTRIL) 1 mg tablet Indications: Nausea and vomiting, unspecified vomiting type Take 1 tablet by mouth every 12 hours as needed. 60 tablet 5 08/15/2024 06/08/2025 Discontinued (Cost of medication) 12 hr guaiFENesin 600 mg extended release oral tablet (1 source) take 1 tablet by mouth twice daily as needed for cough guaiFENesin (Mucinex) 600 mg tablet extended release 12hr, Ordered By: Soha Ovalle MD Directions: 1 tablet oral twice a day PRN cough 1 ml HYDROmorphone hydrochloride 1 mg/ml cartridge (3 sources) Opioid Agonist Start: End: 0.5 mg, Intravenous, ONCE, 1 dose, On Wed05/27/25 at 2000 Start: 08-02-2024 End: 08-04-2024 take 0.5 mg intravenously every three hours as needed 0.5 mg, Intravenous, EVERY 3 HOURS NEEDED, Starting on Wed08/02/24 at 2138, Until Wed08/04/24 at 1217, Severe Pain Start: 05-05-2020 End: 05-05-2020 HYDROmorphone (DILAUDID) injection 1 mg hydrOXYzine hydrochloride 25 mg oral tablet (1 source) Antihistamine Start: 07-18-2024 End: 05-03-2025 take 1 tablet by mouth every eight hours as needed Hydroxyzine Hcl 25 mg tablet Discontinued 25 mg PO EVERY 8 HOURS NEEDED as needed for itch July 18, 2024 12:00am May 03, 2025 1:55pm ibuprofen 600 mg oral tablet (2 sources) Nonsteroidal Anti-inflammatory Drug Start: 01-13-2024 End: 03-12-2024 take 1 tablet by mouth every six hours as needed for pain Ibuprofen 600 mg tablet Discontinued 600 mg PO EVERY 6 HOURS NEEDED as needed for fever or pain January 13, 2024 12:00am March 12, 2024 11:44pm iohexol (OMNIPAQUE) 350 MG/ML injection 75 mL (3 sources) Start: 05-27-2025 End: 05-27-2025 75 mL, Intravenous, ONCE, 1 dose, On Wed05/27/25 at 2115, Extravasation Risk, Radiology Procedure Start: 08-01-2024 End: 08-01-2024 75 mL, Intravenous, ONCE, 1 dose, On Wed08/01/24 at 2030, Extravasation Risk, Radiology Procedure Start: 07-25-2024 End: 07-25-2024 75 mL, Intravenous, ONCE, 1 dose, On Wed07/25/24 at 1745, Extravasation Risk, Radiology Procedure ketamine 50 mg in NaCl 0.9% 63 mL (KETALAR) (5 sources) Start: 06-02-2024 End: 06-02-2024 ketamine 50 mg in NaCl 0.9% 63 mL (KETALAR) Start: 06-01-2024 End: 06-01-2024 ketamine 50 mg in NaCl 0.9% 63 mL (KETALAR) Start: 05-31-2024 End: 05-31-2024 ketamine 50 mg in NaCl 0.9% 63 mL (KETALAR) Start: 05-30-2024 End: 05-30-2024 ketamine 50 mg in NaCl 0.9% 63 mL (KETALAR) Start: 05-29-2024 End: 05-29-2024 ketamine 50 mg in NaCl 0.9% 63 mL (KETALAR) ketamine 55 mg in NaCl 0.9% 63.5 mL (KETALAR) (4 sources) Start: 09-22-2024 End: 09-22-2024 55 mg (rounded from 55.55 mg = 0.5 mg/kg/dose 111.1 kg), INTRAVENOUS, Administer over 40 Minutes, ONCE, 1 dose, On Wed09/22/24 at 1430 Start: 09-20-2024 End: 09-20-2024 55 mg (rounded from 55.55 mg = 0.5 mg/kg/dose 111.1 kg), INTRAVENOUS, Administer over 40 Minutes, ONCE, 1 dose, On Wed09/20/24 at 1500 Start: 09-19-2024 End: 09-19-2024 55 mg (rounded from 55.55 mg = 0.5 mg/kg/dose 111.1 kg), INTRAVENOUS, Administer over 40 Minutes, ONCE, 1 dose, On Wed09/19/24 at 1500 Start: 09-18-2024 End: 09-18-2024 55 mg (rounded from 55.6 mg = 0.5 mg/kg/dose 111.2 kg), INTRAVENOUS, Administer over 40 Minutes, ONCE, 1 dose, On Wed09/18/24 at 1500 1 ml ketorolac tromethamine 30 mg/ml injection (5 sources) Nonsteroidal Anti-inflammatory Drug, Cyclooxygenase Inhibitor Start: 04-22-2025 End: 04-22-2025 inject 1 dose by intramuscular injection once 30 mg, Intramuscular, ONCE, 1 dose, On Wed04/22/25 at 1645 Start: 04-05-2024 End: 06-12-2024 15 mg, Intravenous, ONCE, 1 dose, On Wed04/05/24 at 204 Start: 02-15-2024 End: 02-15-2024 Do not use in patients with advanced renal impairment or those at risk of renal impairment due to volume depletion. If used, consider ordering half the typical dose (or less) in patients who are: Less than 50 kg and/or Greater than 65 years of age and/or Renally impaired with a moderately-elevated serum creatinine , 15 mg, intravenous, Once, 1 dose, On Wed02/15/24 at 2040, STAT Start: 02-15-2024 End: 02-20-2024 take 1 tablet by mouth every six hours for pain ketorolac (Toradol) 10 mg tablet Indications: Right arm pain Take 1 tablet (10 mg) by mouth every 6 hours if needed for moderate pain (4 - 6) for up to 5 days. 20 tablet 02/15/2024 02/20/2024 Active Start: 09-17-2020 End: 09-17-2020 ketorolac (TORADOL) injectio n 30 mg levoFLOXacin 250 mg oral tablet (2 sources) Quinolone Antimicrobial Start: 05-20-2020 End: 05-20-2020 levoFLOXacin (LEVAQUIN) tablet 500 mg Start: 05-20-2020 End: 05-27-2020 take 1 tablet by mouth once daily levoFLOXacin (LEVAQUIN) 500 MG tablet Take 1 (one) tablet (500 mg total) by mouth daily for 7 days . 7 tablet 0 05/20/2020 05/27/2020 Active lubiprostone 0.008 mg oral capsule (20 sources) Chloride Channel Activator Start: 08-21-2024 End: 06-08-2025 take 1 capsule by mouth twice daily at mealtime lubiprostone (AMITIZA) 8 mcg capsule Indications: Chronic idiopathic constipation Take 1 capsule by mouth two times a day with meals. 60 capsule 5 08/21/2024 06/08/2025 Discontinued (Course of therapy completed) Start: 12-21-2023 End: 08-19-2024 take 1 capsule by mouth twice daily at mealtime lubiprostone (AMITIZA) 8 mcg capsule Indications: Chronic idiopathic constipation Take 1 capsule by mouth two times a day with meals. 60 capsule 5 03/21/2024 08/19/2024 Discontinued Comment on above: Take 1 capsule by mo uth two times a day with meals. meclizine hydrochloride 25 mg oral tablet (13 sources) Antiemetic Start: End: take 1 tablet by mouth three times daily meclizine (ANTIVERT) 25 mg tab Take 1 tablet by mouth three times a day. 90 tablet 5 08/22/2024 06/08/2025 Discontinued (Course of therapy completed) methylPREDNISolone 125 mg injection (3 sources) Corticosteroid Start: End: 125 mg, Intravenous, ONCE, 1 dose, On Wed08/01/24 at 2015 Start: 07-25-2024 End: 07-25-2024 125 mg, Intravenous, ONCE, 1 dose, On Wed07/25/24 at 1730 Start: 09-17-2020 End: 09-17-2020 methylPREDNISolone sodium quintero ccinate (SOLU-MEDROL) injection 125 mg 2 ml metoclopramide 5 mg/ml prefilled syringe (11 sources) Dopamine-2 Receptor Antagonist Start: 08-03-2024 End: 08-04-2024 10 mg, Intravenous, 3 TIMES DAILY BEFORE MEALS, First dose on Wed08/03/24 at 1600, Until Discontinued, If given via IV route: administer slowly over 2 minutes. Start: 08-02-2024 End: 08-02-2024 5 mg, Intravenous, ONCE, 1 d ose, On Wed08/02/24 at 2115 Start: 07-18-2024 End: 05-03-2025 take 1 tablet by mouth five times daily Metoclopramide Hcl 10 mg tablet Discontinued 10 mg PO 5 TIMES DAILY July 18, 2024 12:00am May 03, 2025 1:55pm Start: 08-17-2023 End: 08-24-2023 Reglan 5 mg oral tablet Dose : 5 mg = 1 tab(s), Oral, QID, X 7 day(s), # 28 tab(s), 0 Refill(s), 08/24/23 5:32:00 PM EDT Start Date: 08/17/23 Stop Date: 08/24/23 Status: Ordered Start: 05-26-2022 End: 09-29-2022 take 2.5 mg by mouth 30 minutes before mealtime Metoclopramide Hcl (Reglan) 5 mg tablet Discontinued 2.5 mg PO before meals 45 0 May 26, 2022 12:00am September 29, 2022 12:03pm administer 30 minutes before meals 1 ml morphine sulfate 4 mg/ml prefilled syringe (3 sources) Opioid Agonist Start: 08-01-2024 End: 08-01-2024 4 mg, Intravenous, ONCE, 1 dose, On Wed08/01/24 at 2100 Start: 04-05-2024 End: 04-05-2024 4 mg, Intravenous, ONCE, 1 d ose, On Wed04/05/24 at 2330 Start: 02-15-2024 End: 02-15-2024 inject 1 dose by intramuscular injection once 4 mg, intramuscular, Once, 1 dose, On Wed02/15/24 at 2155, STAT naltrexone hydrochloride 50 mg oral tablet (3 sources) Opioid Antagonist Start: 12-14-2023 End: 12-21-2023 naltrexone 50 mg tablet 1/8 tablet nightly 12 tablet 2 12/14/2023 12/21/2023 Discontinued Comment on above: 1/8 tablet nightly nortriptyline 50 mg oral capsule (20 sources) Tricyclic Antidepressant Start: 04-08-2023 take 1 capsule by mouth once daily at bedtime nortriptyline (PAMELOR) 50 mg capsule Take 50 mg by mouth daily at bedtime. 0 04/08/2023 Active Start: 01-18-2023 End: 05-05-2023 take 1 capsule by mouth at bedtime nortriptyline 25 mg oral capsule TAKE 1 CAPSULE BY MOUTH AT BEDTIME Start Date: 02/16/23 Status: Ordered Comment on above: Take 50 mg by mouth daily at bedtime. 2 ml ondansetron 2 mg/ml injection (20 sources) Serotonin-3 Receptor Antagonist Start: 05-27-2025 End: 05-27-2025 4 mg, Intravenous, ONCE, 1 dose, On Wed05/27/25 at 1930 Start: 09-22-2024 End: 09-22-2024 8 mg, INTRAVENOUS, ONCE, 1 d ose, On Wed09/22/24 at 1430 Start: 09-22-2024 End: 09-22-2024 8 mg, INTRAVENOUS, EVERY 6 H OURS NEEDED, Starting on Wed09/22/24 at 1418, Until Wed09/22/24 at 1739, Nausea/Vomiting - First Line - Parenteral Start: 09-20-2024 End: 09-20-2024 8 mg, INTRAVENOUS, ONCE, 1 d ose, On Wed09/20/24 at 1500 Start: 09-18-2024 End: 09-19-2024 8 mg, INTRAVENOUS, ONCE, 1 d ose, On Wed09/19/24 at 1500 Start: 08-02-2024 End: 08-04-2024 take 4 mg intravenously every four hours as needed 4 mg, Intravenous, EVERY 4 HOURS NEEDED, Starting on Wed08/02/24 at 2128, Until Wed08/04/24 at 1217, Nausea / Vomiting Start: 08-02-2024 End: 08-02-2024 4 mg, Intravenous, ONCE, 1 d ose, On Wed08/02/24 at 2115 Start: 08-01-2024 End: 08-01-2024 4 mg, Intravenous, ONCE, 1 d ose, On Wed08/01/24 at 2100 Start: 07-25-2024 End: 07-25-2024 4 mg, Intravenous, ONCE, 1 d ose, On Wed07/25/24 at 1730 Start: 06-01-2024 End: 06-02-2024 ondansetron (PF) 8 mg inject ion (ZOFRAN) Start: 05-31-2024 End: 05-31-2024 ondansetron (PF) 8 mg inject ion (ZOFRAN) Start: 05-30-2024 End: 05-30-2024 ondansetron (PF) 8 mg inject ion (ZOFRAN) Start: 05-29-2024 End: 05-29-2024 ondansetron (PF) 8 mg inject ion (ZOFRAN) Start: 04-05-2024 End: 04-05-2024 4 mg, Intravenous, ONCE, 1 d ose, On Wed04/05/24 at 2115 Start: 02-15-2024 End: 02-15-2024 take 1 dose by mouth once 4 mg, oral, Once, 1 dose, On Wed02/15/24 at 2155, STAT Start: 08-25-2023 End: 10-26-2023 Zofran 4 mg oral tablet Dose : 4 mg = 1 tab(s), Oral, q6h, PRN Nausea/Vomiting, # 30 tab(s), 1 Refill(s), 10/26/23 3:17:00 PM EST, Pharmacy: [id number], 167, cm, 08/25/23 14:45:00 EDT, Height, kg, 08/25/23 14:45:00 EDT, Dosing Weight Start Date: 08/25/23 Stop Date: 10/26/23 Status: Ordered Start: 09-03-2021 End: 08-15-2024 take 1 tablet by mouth every eight hours as needed Ondansetron 4 MG Tab Dispersible tablet Take 1 tablet by mouth every [address] on tongue 15 tablet 04/06/2024 Active Start: 09-03-2021 End: 03-12-2024 take 1 tablet by mouth every six hours as needed for nausea and vomiting Ondansetron 4 mg tablet,disintegrating Discontinued 4 mg PO EVERY 6 HOURS as needed for nausea and vomiting 14 0 January 13, 2024 1:24am March 12, 2024 11:44pm Start: 09-03-2021 ondansetron or ally disintegrating (ZOFRAN ODT) 4 mg disintegrating tablet 0 Refill(s) 0 09/03/2021 Active Start: 05-05-2020 End: 05-05-2020 ondansetron 4mg/2ml (ZOFRAN) injection 4 mg Start: 12-19-2019 End: 12-21-2019 take 1 tablet by mouth every eight hours Zofran 4 mg oral tablet ; 1 tab(s) orally every 8 hours Quantity: 9 Refills: 0 Ordered: 19-Dec-2019 Yumiko Bragg Start: 19-Dec-2019 End: 21-Dec-2019 Generic Substitution Allowed Start: 09-30-2013 End: 11-09-2013 take 1 tablet by mouth every eight hours as needed for nausea Ondansetron Hcl 8 MG tablet Discontinued 8 mg PO EVERY 8 HOURS NEEDED as needed for Nausea September 30, 2013 1:00am November 09, 2013 3:14am Comment on above: 0 Refill(s) 2 ml orphenadrine citrate 30 mg/ml injection (1 source) Muscle Relaxant Start: 09-17-20 End: 09-17-20 orphenadrine (NORFLEX) injection 60 mg oxyCODONE hydrochloride 5 mg oral tablet (6 sources) Opioid Agonist Start: 07-07-20 End: 07-12-20 take 1 tablet by mouth twice daily Oxycodone 5 mg tablet Discontinued 5 mg PO TWICE A DAY 10 5 0 July 07, 2022 July 11, 2022 12:00am July 12, 2022 12:04am Abdominal pain Gastroparesis Unspecified abdominal pain Gastroparesis pain 24 hr paliperidone 3 mg extended release oral tablet (20 sources) Atypical Antipsychotic Start: 03-12-20 End: 06-08-20 take 1 tablet by mouth once daily Paliperidone 3 mg tablet extended release 24hr Discontinued 3 mg PO DAILY March 12, 2024 12:00am May 03, 2025 1:55pm Start: 06-08-2023 End: 09-21-2023 take 1 mg by mouth every twenty-four hours Paliperidone 1.5 mg tablet extended release 24hr Discontinued mg PO June 08, 2023 12:00am September 21, 2023 3:40pm Start: 06-08-2023 End: 09-21-2023 Paliperidone Discontinued MG PO June 08, 2023 12:00am September 21, 2023 3:40pm Comment on above: Take 3 mg by mouth o nce daily. pantoprazole 40 mg delayed release oral tablet (20 sources) Proton Pump Inhibitor Start: 08-03-2024 End: 08-04-2024 take 40 mg by mouth once daily 40 mg, Oral, DAILY, First dose on Wed08/03/24 at 0900, Until Discontinued, Swallow whole; do not crush or chew., Indications: Inpt Stress Ulcer Prophylaxis Start: 08-02-2024 End: 08-02-2024 40 mg, Intravenous, ONCE, 1 dose, On Wed08/02/24 at 2115, Dilute each 40 mg vial with 10 mL of NS. All bolus doses, whether 40 mg or 80 mg, should be administered over at least two minutes., Indications: Inpt Stress Ulcer Prophylaxis Start: 10-27-2022 End: 06-08-2023 take 1 tablet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 [address] MCHC (RBC) [Mass/Vol] 33.6 g/dL Normal 27.0-37.0 [facility] Comment on above: Performed By: #### U MAC #### Testing performed at [address] [address] MCV (RBC) [Entitic vol] 87.0 fL Normal 80.0-100.0 [facility] Comment on above: Performed By: #### U MAC #### Testing performed at [address] [address] Monocytes (Bld) [#/Vol] 0.8 10*3/uL High 0.0-0.7 [facility] Comment on above: Performed By: #### U MAC #### Testing performed at [address] [address] Monocytes/100 WBC (Bld) 6.8 % Normal 0.0-10.0 [facility] Comment on above: Performed By: #### U MAC #### Testing performed at [address] [address] Neutrophils/100 WBC (Bld) 80.5 % High 37.0-75.0 [facility] Comment on above: Performed By: #### U MAC #### Testing performed at [address] [address] Platelet mean volume (Bld) [Entitic vol] 7.6 fL Normal 7.4-11.0 [facility] Comment on above: Performed By: #### U MAC #### Testing performed at [address] [address] Platelets (Bld) [#/Vol] 356 10*3/uL Normal 130-400 [facility] Comment on above: Performed By: #### U MAC #### Testing performed at [address] [address] RBC (Bld) [#/Vol] 4.75 10*6/uL Normal 4.0-5.4 [facility] Comment on above: Performed By: #### U MAC #### Testing performed at [address] [address] WBC (Bld) [#/Vol] 12.0 10*3/uL High 3.6-11.0 [facility] Comment on above: Performed By: #### U MAC #### Testing performed at [address] [address] CBC, EDIF, PLATELETon 2024 ABSOLUTE BASOPHIL COUNT 0.1 10*3/uL 0.0 - 0.2 10*3/uL [facility] Basophils/100 WBC (Bld) 0.5 % 0.0 - 2.0 % [facility] Differential cell count method Nom (Bld) AUTO DIFF % [facility] Eosinophils (Bld) [#/Vol] 0.1 10*3/uL 0.0 - 0.7 10*3/uL [facility] Eosinophils/100 WBC (Bld) 0.7 % 0.0 - 11.0 % [facility] Erythrocyte distribution width (RBC) [Ratio] 13.8 % 11.5 - 14.5 % [facility] Hematocrit (Bld) [Volume fraction] 41.4 % 36.0 - 48.0 % [facility] Hemoglobin (Bld) [Mass/Vol] 13.9 g/dL [facility] Interpretation and review of laboratory results Abnormal [facility] Lymphocytes (Bld) [#/Vol] 1.4 10*3/uL 1.2 - 3.4 10*3/uL [facility] Lymphocytes/100 WBC (Bld) 11.5 % Low 20.0 - 55.0 % [facility] MCH (RBC) [Entitic mass] 29.2 pg 26.0 - 35.0 PG [facility] MCHC (RBC) [Mass/Vol] 33.6 g/dL [facility] MCV (RBC) [Entitic vol] 87 fL A [facility] Monocytes (Bld) [#/Vol] 0.8 10*3/uL High 0.0 - 0.7 10*3/uL [facility] Monocytes/100 WBC (Bld) 6.8 % 0.0 - 10.0 % [facility] Neutrophils (Bld) [#/Vol] 9.7 10*3/uL High 1.4 - 6.5 10*3/uL [facility] Neutrophils/100 WBC (Bld) 80.5 % High 37.0 - 75.0 % [facility] Platelet mean volume (Bld) [Entitic vol] 7.6 fL [facility] Platelets (Bld) [#/Vol] 356 10*3/uL 130 - 400 10*3/uL [facility] RBC (Bld) [#/Vol] 4.75 10*6/uL 4.0 - 5.4 10*6/uL [facility] WBC (Bld) [#/Vol] 12 10*3/uL High 3.6 - 11.0 10*3/uL [facility] CMP FASTINGon 05-27-2025 A:G RATIO 1.3 RATIO Normal [facility] Comment on above: Performed By: #### U MAC #### Testing performed at [address] [address] Albumin [Mass/Vol] 4.5 g/dL Normal 3.5-5.0 [facility] Comment on above: Performed By: #### U MAC #### Testing performed at [address] [address] ALP [Catalytic activity/Vol] 101 U/L Normal 38-126 [facility] Comment on above: Performed By: #### U MAC #### Testing performed at [address] [address] ALT [Catalytic activity/Vol] 19 U/L Normal <35 [facility] Comment on above: Performed By: #### U MAC #### Testing performed at [address] [address] AST [Catalytic activity/Vol] 23 U/L Normal 14-36 [facility] Comment on above: Performed By: #### U MAC #### Testing performed at [address] [address] Bilirubin [Mass/Vol] 0.4 mg/dL Normal 0.2-1.3 [facility] Comment on above: Performed By: #### U MAC #### Testing performed at [address] [address] Calcium [Mass/Vol] 9.1 mg/dL Normal 8.4-10.2 [facility] Comment on above: Performed By: #### U MAC #### Testing performed at [address] [address] Chloride [Moles/Vol] 104 mmol/L Normal 98-107 [facility] Comment on above: Result Comment: Plea se note: Triglyceride levels of 600mg/dL or higher may positively bias chloride results by approximately 2.1 mmol Performed By: #### U MAC #### Testing performed at [address] [address] CO2 [Moles/Vol] 26 mmol/L Normal 22-30 [facility] Comment on above: Performed By: #### U MAC #### Testing performed at [address] [address] Creatinine [Mass/Vol] 1.00 mg/dL Normal 0.70-1.20 [facility] Comment on above: Performed By: #### U MAC #### Testing performed at [address] [address] GFR Information Average GFR for 30-3 9 years old = 107. Normal [facility] Comment on above: Result Comment: Iridologist nguyen Kidney disease, GFR = <60. Kidney failure, GFR = <15. The GFR estimate is not adjusted for extreme body surface area or acute process, nor has it been validated for women or ethnic groups other than and . MDRD Equation Performed By: #### U MAC #### Testing performed at [address] [address] GFR/1.73 sq M.predicted MDRD (S/P/Bld) [Vol rate/Area] 67 mL/min/{1.73_m2} Normal [facility] Comment on above: Performed By: #### U MAC #### Testing performed at [address] [address] Glucose [Mass/Vol] 82 mg/dL Normal 70-100 [facility] Comment on above: Result Comment: NORMAL <100 mg/dL PREDIABETES 101-126 mg/dL DIABETES 126 mg/dL or higher Performed By: #### U MAC #### Testing performed at [address] [address] Potassium [Moles/Vol] 3.3 mmol/L Low 3.5-5.1 [facility] Comment on above: Performed By: #### U MAC #### Testing performed at [address] [address] Protein [Mass/Vol] 7.9 g/dL Normal 6.3-8.2 [facility] Comment on above: Performed By: #### U MAC #### Testing performed at [address] [address] Sodium [Moles/Vol] 138 mmol/L Normal 137-145 [facility] Comment on above: Performed By: #### U MAC #### Testing performed at [address] [address] Urea nitrogen [Mass/Vol] 12 mg/dL Normal 7-20 [facility] Comment on above: Performed By: #### U MAC #### Testing performed at [address] [address] COMPREHENSIVE METABOLIC PANE Rashid 05-27-2025 Albumin [Mass/Vol] 4.5 g/dL 3.5 - 5.0 g/dL [facility] Albumin/Globulin [Mass ratio] 1.3 {ratio} RATIO [facility] ALP [Catalytic activity/Vol] 101 U/L 38 - 126 U/L [facility] ALT [Catalytic activity/Vol] 19 U/L NINF - 35 U/L [facility] AST [Catalytic activity/Vol] 23 U/L 14 - 36 U/L [facility] Bilirubin [Mass/Vol] 0.4 mg/dL 0.2 - 1 .3 mg/dL [facility] Calcium [Mass/Vol] 9.1 mg/dL 8.4 - 10. 2 mg/dL [facility] Chloride [Moles/Vol] 104 mmol/L [facility] Comment on above: Please note: Triglyc eride levels of 600mg/dL or higher may positively bias chloride results by approximately 2.1 mmol CO2 [Moles/Vol] 26 mmol/L [facility] Creatinine [Mass/Vol] 1 mg/dL 0.70 - 1.20 mg/dL [facility] GFR COMMENT Average GFR for 30-3 9 years old = 107. [facility] Comment on above: Chronic Kidney disea se, GFR = <60. Kidney failure, GFR = <15. The GFR estimate is not adjusted for extreme body surface area or acute process, nor has it been validated for women or ethnic groups other than and . MDRD Equation GFR/1.73 sq M.predicted MDRD (S/P/Bld) [Vol rate/Area] 67 mL/min/{1.73_m2} ml/min/1.73sq .m [facility] Glucose post fast [Mass/Vol] 82 mg/dL [facility] Comment on above: NORMAL <100 mg/dL PREDIABETES 101-126 mg/dL DIABETES 126 mg/dL or higher Interpretation and review of laboratory results Abnormal [facility] Potassium [Moles/Vol] 3.3 mmol/L Low [facility] Protein [Mass/Vol] 7.9 g/dL 6.3 - 8.2 g/dL [facility] Sodium [Moles/Vol] 138 mmol/L [facility] Urea nitrogen [Mass/Vol] 12 mg/dL 7 - 20 mg/dL [facility] CT ABDOMEN/PELVIS WITH CONTR [place] 05-27-2025 CT ABDOMEN/PELVIS WITH CONTRAST EXAMINATION: CT SPINE CERVICAL WITHOUT CONTRAST, CT PE STUDY, CT ABDOMEN/PELVIS WITH CONTRAST HISTORY: Cervical radiculopathy. Chest and abdominal pain COMPARISON: None. TECHNIQUE: CT Cervical spine without IV contrast. Chest CT angiogram pulmonary embolus protocol and routine CT of the abdomen and pelvis were obtained after administration of IV contrast. IV contrast: 75 mL of Omnipaque 350. Dose reduction techniques were achieved by using automated exposure control and/or adjustment of mA and/or kV according to patient size and/or use of iterative reconstruction technique. FINDINGS: C-spine CT: Normal alignment of the visualized vertebrae. Preserved vertebral body and intervertebral disc heights. No displaced fracture or subluxation. No suspicious bony lesion. Loss of cervical lordosis either positional or related to muscle spasm. No appreciable spondylotic changes. Normal prevertebral soft tissues. Mild borderline thyroid goiter. Chest: PULMONARY ARTERIES: Adequate contrast opacification of the central pulmonary arteries. No large central pulmonary embolus on this exam limited for the evaluation of the more peripheral arteries by poor [id number] ratio secondary to morbid obesity. CARDIAC/MEDIASTINUM: Mild thyroid goiter. No supraclavicular or axillary lymphadenopathy. No mediastinal or hilar lymphadenopathy. The heart size is within normal limits.. No coronary arterial calcifications. The thoracic aorta is of normal course and caliber. LUNGS/PLEURA: Mosaic attenuation of the lungs suggesting air-trapping e.g. asthma/reactive airway disease versus emphysema. Left lower lobe pneumatocele probably sequela of remote infection. Otherwise clear lungs. No pleural effusion or pneumothorax. Abdomen and pelvis: HEPATOBILIARY: Cholecystectomy. No abnormal findings. PANCREAS: Normal. SPLEEN: Normal. ADRENALS: Normal. KIDNEYS/URETERS: Normal. VASCULAR: The aorta is not dilated. LYMPH NODES: No adenopathy. BOWEL/MESENTERY: The bowel and mesentery are unremarkable. No free air or fluid. PELVIC ORGANS: No soft tissue mass, free fluid, fluid collection, adenopathy or inflammatory changes. BONES/SOFT TISSUES: No suspicious osseous lesions. Mild thoracic, moderate lumbar congenital spinal canal stenosis/short pedicles. Mild L4-5 disc height loss along with a small moderate circumferential disc bulge resulting severe spinal canal stenosis and moderate severe bilateral neural foraminal stenosis. Unremarkable soft tissues. Impression: 1. Loss of cervical lordosis either positional or related to muscle spasm. No other cervical spine abnormalities. 2. Mosaic attenuation of the lungs suggesting air-trapping e.g. asthma/reactive airway disease versus emphysema. No other acute process in the chest, abdomen, or pelvis. No large central pulmonary embolism this exam limited as above. 3. Mild thyroid goiter. Consider outpatient TFTs and ultrasound. 4. Other chronic and incidental findings as above. Normal [facility] CT Abdomen and Pelvis W cont rast Janelle 05-27-2025 Radiology Study observation (narrative) [facility] CT Cervical spine WO contras ton 05-27-2025 Radiology Study observation (narrative) [facility] CT PE STUDYon 05-27-2025 CT PE STUDY EXAMINATION: CT SPIN E CERVICAL WITHOUT CONTRAST, CT PE STUDY, CT ABDOMEN/PELVIS WITH CONTRAST HISTORY: Cervical radiculopathy. Chest and abdominal pain COMPARISON: None. TECHNIQUE: CT Cervical spine without IV contrast. Chest CT angiogram pulmonary embolus protocol and routine CT of the abdomen and pelvis were obtained after administration of IV contrast. IV contrast: 75 mL of Omnipaque 350. Dose reduction techniques were achieved by using automated exposure control and/or adjustment of mA and/or kV according to patient size and/or use of iterative reconstruction technique. FINDINGS: C-spine CT: Normal alignment of the visualized vertebrae. Preserved vertebral body and intervertebral disc heights. No displaced fracture or subluxation. No suspicious bony lesion. Loss of cervical lordosis either positional or related to muscle spasm. No appreciable spondylotic changes. Normal prevertebral soft tissues. Mild borderline thyroid goiter. Chest: PULMONARY ARTERIES: Adequate contrast opacification of the central pulmonary arteries. No large central pulmonary embolus on this exam limited for the evaluation of the more peripheral arteries by poor [id number] ratio secondary to morbid obesity. CARDIAC/MEDIASTINUM: Mild thyroid goiter. No supraclavicular or axillary lymphadenopathy. No mediastinal or hilar lymphadenopathy. The heart size is within normal limits.. No coronary arterial calcifications. The thoracic aorta is of normal course and caliber. LUNGS/PLEURA: Mosaic attenuation of the lungs suggesting air-trapping e.g. asthma/reactive airway disease versus emphysema. Left lower lobe pneumatocele probably sequela of remote infection. Otherwise clear lungs. No pleural effusion or pneumothorax. Abdomen and pelvis: HEPATOBILIARY: Cholecystectomy. No abnormal findings. PANCREAS: Normal. SPLEEN: Normal. ADRENALS: Normal. KIDNEYS/URETERS: Normal. VASCULAR: The aorta is not dilated. LYMPH NODES: No adenopathy. BOWEL/MESENTERY: The bowel and mesentery are unremarkable. No free air or fluid. PELVIC ORGANS: No soft tissue mass, free fluid, fluid collection, adenopathy or inflammatory changes. BONES/SOFT TISSUES: No suspicious osseous lesions. Mild thoracic, moderate lumbar congenital spinal canal stenosis/short pedicles. Mild L4-5 disc height loss along with a small moderate circumferential disc bulge resulting severe spinal canal stenosis and moderate severe bilateral neural foraminal stenosis. Unremarkable soft tissues. Impression: 1. Loss of cervical lordosis either positional or related to muscle spasm. No other cervical spine abnormalities. 2. Mosaic attenuation of the lungs suggesting air-trapping e.g. asthma/reactive airway disease versus emphysema. No other acute process in the chest, abdomen, or pelvis. No large central pulmonary embolism this exam limited as above. 3. Mild thyroid goiter. Consider outpatient TFTs and ultrasound. 4. Other chronic and incidental findings as above. Normal [facility] CT Pulmonary arteries for pu lmonary emboluson 05-27-2025 Radiology Study observation (narrative) [facility] CT SPINE CERVICAL WITHOUT CO NTRASTon 05-27-2025 CT SPINE CERVICAL WITHOUT CONTRAST EXAMINATION: CT SPINE CERVICAL WITHOUT CONTRAST, CT PE STUDY, CT ABDOMEN/PELVIS WITH CONTRAST HISTORY: Cervical radiculopathy. Chest and abdominal pain COMPARISON: None. TECHNIQUE: CT Cervical spine without IV contrast. Chest CT angiogram pulmonary embolus protocol and routine CT of the abdomen and pelvis were obtained after administration of IV contrast. IV contrast: 75 mL of Omnipaque 350. Dose reduction techniques were achieved by using automated exposure control and/or adjustment of mA and/or kV according to patient size and/or use of iterative reconstruction technique. FINDINGS: C-spine CT: Normal alignment of the visualized vertebrae. Preserved vertebral body and intervertebral disc heights. No displaced fracture or subluxation. No suspicious bony lesion. Loss of cervical lordosis either positional or related to muscle spasm. No appreciable spondylotic changes. Normal prevertebral soft tissues. Mild borderline thyroid goiter. Chest: PULMONARY ARTERIES: Adequate contrast opacification of the central pulmonary arteries. No large central pulmonary embolus on this exam limited for the evaluation of the more peripheral arteries by poor [id number] ratio secondary to morbid obesity. CARDIAC/MEDIASTINUM: Mild thyroid goiter. No supraclavicular or axillary lymphadenopathy. No mediastinal or hilar lymphadenopathy. The heart size is within normal limits.. No coronary arterial calcifications. The thoracic aorta is of normal course and caliber. LUNGS/PLEURA: Mosaic attenuation of the lungs suggesting air-trapping e.g. asthma/reactive airway disease versus emphysema. Left lower lobe pneumatocele probably sequela of remote infection. Otherwise clear lungs. No pleural effusion or pneumothorax. Abdomen and pelvis: HEPATOBILIARY: Cholecystectomy. No abnormal findings. PANCREAS: Normal. SPLEEN: Normal. ADRENALS: Normal. KIDNEYS/URETERS: Normal. VASCULAR: The aorta is not dilated. LYMPH NODES: No adenopathy. BOWEL/MESENTERY: The bowel and mesentery are unremarkable. No free air or fluid. PELVIC ORGANS: No soft tissue mass, free fluid, fluid collection, adenopathy or inflammatory changes. BONES/SOFT TISSUES: No suspicious osseous lesions. Mild thoracic, moderate lumbar congenital spinal canal stenosis/short pedicles. Mild L4-5 disc height loss along with a small moderate circumferential disc bulge resulting severe spinal canal stenosis and moderate severe bilateral neural foraminal stenosis. Unremarkable soft tissues. Impression: 1. Loss of cervical lordosis either positional or related to muscle spasm. No other cervical spine abnormalities. 2. Mosaic attenuation of the lungs suggesting air-trapping e.g. asthma/reactive airway disease versus emphysema. No other acute process in the chest, abdomen, or pelvis. No large central pulmonary embolism this exam limited as above. 3. Mild thyroid goiter. Consider outpatient TFTs and ultrasound. 4. Other chronic and incidental findings as above. Normal [facility] No Panel Informationon 05-27 Impression: 1. Loss of cervical lordosis either positional or related to muscle spasm. No other cervical spine abnormalities. 2. Mosaic attenuation of the lungs suggesting air-trapping e.g. asthma/reactive airway disease versus emphysema. No other acute process in the chest, abdomen, or pelvis. No large central pulmonary embolism this exam limited as above. 3. Mild thyroid goiter. Consider outpatient TFTs and ultrasound. 4. Other chronic and incidental findings as above. RADIOLOGY EXAMINATION: CT SPIN E CERVICAL WITHOUT CONTRAST, CT PE STUDY, CT ABDOMEN/PELVIS WITH CONTRAST HISTORY: Cervical radiculopathy. Chest and abdominal pain COMPARISON: None. TECHNIQUE: CT Cervical spine without IV contrast. Chest CT angiogram pulmonary embolus protocol and routine CT of the abdomen and pelvis were obtained after administration of IV contrast. IV contrast: 75 mL of Omnipaque 350. Dose reduction techniques were achieved by using automated exposure control and/or adjustment of mA and/or kV according to patient size and/or use of iterative reconstruction technique. FINDINGS: C-spine CT: Normal alignment of the visualized vertebrae. Preserved vertebral body and intervertebral disc heights. No displaced fracture or subluxation. No suspicious bony lesion. Loss of cervical lordosis either positional or related to muscle spasm. No appreciable spondylotic changes. Normal prevertebral soft tissues. Mild borderline thyroid goiter. Chest: PULMONARY ARTERIES: Adequate contrast opacification of the central pulmonary arteries. No large central pulmonary embolus on this exam limited for the evaluation of the more peripheral arteries by poor [id number] ratio secondary to morbid obesity. CARDIAC/MEDIASTINUM: Mild thyroid goiter. No supraclavicular or axillary lymphadenopathy. No mediastinal or hilar lymphadenopathy. The heart size is within normal limits.. No coronary arterial calcifications. The thoracic aorta is of normal course and caliber. LUNGS/PLEURA: Mosaic attenuation of the lungs suggesting air-trapping e.g. asthma/reactive airway disease versus emphysema. Left lower lobe pneumatocele probably sequela of remote infection. Otherwise clear lungs. No pleural effusion or pneumothorax. Abdomen and pelvis: HEPATOBILIARY: Cholecystectomy. No abnormal findings. PANCREAS: Normal. SPLEEN: Normal. ADRENALS: Normal. KIDNEYS/URETERS: Normal. VASCULAR: The aorta is not dilated. LYMPH NODES: No adenopathy. BOWEL/MESENTERY: The bowel and mesentery are unremarkable. No free air or fluid. PELVIC ORGANS: No soft tissue mass, free fluid, fluid collection, adenopathy or inflammatory changes. BONES/SOFT TISSUES: No suspicious osseous lesions. Mild thoracic, moderate lumbar congenital spinal canal stenosis/short pedicles. Mild L4-5 disc height loss along with a small moderate circumferential disc bulge resulting severe spinal canal stenosis and moderate severe bilateral neural foraminal stenosis. Unremarkable soft tissues. RADIOLOGY Ignacio Bill M D - 05/27/2025 EXAMINATION: CT SPINE CERVICAL WITHOUT CONTRAST, CT PE STUDY, CT ABDOMEN/PELVIS WITH CONTRAST HISTORY: Cervical radiculopathy. Chest and abdominal pain COMPARISON: None. TECHNIQUE: CT Cervical spine without IV contrast. Chest CT angiogram pulmonary embolus protocol and routine CT of the abdomen and pelvis were obtained after administration of IV contrast. IV contrast: 75 mL of Omnipaque 350. Dose reduction techniques were achieved by using automated exposure control and/or adjustment of mA and/or kV according to patient size and/or use of iterative reconstruction technique. FINDINGS: C-spine CT: Normal alignment of the visualized vertebrae. Preserved vertebral body and intervertebral disc heights. No displaced fracture or subluxation. No suspicious bony lesion. Loss of cervical lordosis either positional or related to muscle spasm. No appreciable spondylotic changes. Normal prevertebral soft tissues. Mild borderline thyroid goiter. Chest: PULMONARY ARTERIES: Adequate contrast opacification of the central pulmonary arteries. No large central pulmonary embolus on this exam limited for the evaluation of the more peripheral arteries by poor wxbrrb-[id number]-[id number] ratio secondary to morbid obesity. CARDIAC/MEDIASTINUM: Mild thyroid goiter. No supraclavicular or axillary lymphadenopathy. No mediastinal or hilar lymphadenopathy. The heart size is within normal limits.. No coronary arterial calcifications. The thoracic aorta is of normal course and caliber. LUNGS/PLEURA: Mosaic attenuation of the lungs suggesting air-trapping e.g. asthma/reactive airway disease versus emphysema. Left lower lobe pneumatocele probably sequela of remote infection. Otherwise clear lungs. No pleural effusion or pneumothorax. Abdomen and pelvis: HEPATOBILIARY: Cholecystectomy. No abnormal findings. PANCREAS: Normal. SPLEEN: Normal. ADRENALS: Normal. KIDNEYS/URETERS: Normal. VASCULAR: The aorta is not dilated. LYMPH NODES: No adenopathy. BOWEL/MESENTERY: The bowel and mesentery are unremarkable. No free air or fluid. PELVIC ORGANS: No soft tissue mass, free fluid, fluid collection, adenopathy or inflammatory changes. BONES/SOFT TISSUES: No suspicious osseous lesions. Mild thoracic, moderate lumbar congenital spinal canal stenosis/short pedicles. Mild L4-5 disc height loss along with a small moderate circumferential disc bulge resulting severe spinal canal stenosis and moderate severe bilateral neural foraminal stenosis. Unremarkable soft tissues. IMPRESSION Impression: 1. Loss of cervical lordosis either positional or related to muscle spasm. No other cervical spine abnormalities. 2. Mosaic attenuation of the lungs suggesting air-trapping e.g. asthma/reactive airway disease versus emphysema. No other acute process in the chest, abdomen, or pelvis. No large central pulmonary embolism this exam limited as above. 3. Mild thyroid goiter. Consider outpatient TFTs and ultrasound. 4. Other chronic and incidental findings as above. [facility] Interpretation and review of laboratory results Abnormal [facility] No Panel InformationOrdered By: Ignacio Bill on 05-27-2025 [facility] PROTIMEon 05-27-2025 INR Coag (PPP) [Relative time] 0.99 {INR} Normal 0.85-1.10 [facility] Comment on above: Result Comment: 2.0-3.0 THERAPEUTIC RANGE 2.5-3.5 MECHANICAL VALVE RANGE Performed By: #### U MAC #### Testing performed at [address] [address] PT Coag (PPP) [Time] 13.2 s Normal 11.8-14.4 [facility] Comment on above: Performed By: #### U MAC #### Testing performed at [address] [address] PROTIME-INRon 05-27-2025 INR Coag (PPP) [Relative time] 0.99 {INR} 0.85 - 1.10 [facility] Comment on above: 2.0-3.0 THERAPEUTIC RANGE 2.5-3.5 MECHANICAL VALVE RANGE PT Coag (PPP) [Time] 13.2 s [facility] TROPONIN I, HIGH SENSITIVITY on 05-27-2025 TROPONIN I, HIGH SENSITIVITY 4 pg/mL 0 - 12 pg/mL [facility] Comment on above: Indeterminant: >12 to 100 pg/mL female >20 to 100 pg/mL male Indicative of myocardial injury. Serial sampling is recommended, a change of greater than or equal to 20 pg/mL is indicative of acute coronary syndrome. [facility] TROPONIN I, HIGH SENSITIVITY 4 pg/mL Normal 0-12 [facility] Comment on above: Result Comment: Indeterminant: >12 to 100 pg/mL female >20 to 100 pg/mL male Indicative of myocardial injury. Serial sampling is recommended, a change of greater than or equal to 20 pg/mL is indicative of acute coronary syndrome. Performed By: #### T ROHS #### Testing performed at [address] [address] URINALYSIS, MACROon 05-27-20 25 Bilirubin Ql (U) Negative NEGATIVE [facility] Clarity (U) SLIGHTLY CLOUDY Abnormal CLEAR [facility] Color (U) YELLOW YELLOW [facility] Glucose Test strip (U) [Mass/Vol] Negative NEGATIVE mg/dl [facility] Hemoglobin Ql (U) Negative NEGATIVE [facility] Ketones (U) [Mass/Vol] Negative NEGAT FANNY mg/dl [facility] Leukocyte esterase Test strip Ql (U) TRACE Abnormal NEGATIVE [facility] Nitrite Ql (U) Negative NEGATIVE [facility] pH (U) 5.5 [pH] 5.0 - 7.0 [facility] Protein Ql (U) Negative NEGATIVE mg/dl [facility] Specific gravity (U) [Rel density] >1.030 High 1.010 - 1.025 [facility] Urobilinogen (U) [Mass/Vol] 0.2 mg/dL [facility] URINE CULTUREon 05-27-2025 Bacteria identified Cx Nom (U) SPECIMEN DESCRIPTION URINE - OTHER CULTURE NO PATHOGENS ISOLATED * Result Note: Testing performed at [place], [place] [address] * REPORT STATUS 05/30/2025 * Result Note: FINAL * Normal [facility] Comment on above: Performed By: #### U MAC #### Testing performed at [address] [address] URINE MACROSCOPICon 05-27-20 25 Bilirubin Ql (U) Negative Normal NEGATIVE [facility] Comment on above: Performed By: #### U MAC #### Testing performed at [address] [address] Clarity (U) SLIGHTLY CLOUDY Abnormal CLEAR [facility] Comment on above: Performed By: #### U MAC #### Testing performed at [address] [address] Color (U) YELLOW Normal YELLOW [facility] Comment on above: Performed By: #### U MAC #### Testing performed at [address] [address] Glucose Ql (U) Negative Normal NEGATIVE [facility] Comment on above: Performed By: #### U MAC #### Testing performed at [address] [address] pH (U) 5.5 [pH] Normal 5.0-7.0 [facility] Comment on above: Performed By: #### U MAC #### Testing performed at [address] [place] [address] URINE HEMOGLOBIN Negative Normal NEGATIVE [facility] Comment on above: Performed By: #### U MAC #### Testing performed at [address] [place] [address] URINE KETONE Negative Normal NEGATIVE [facility] Comment on above: Performed By: #### U MAC #### Testing performed at [address] [place] [address] URINE LEUKOTEST TRACE Abnormal NEGATIVE [facility] Comment on above: Performed By: #### U MAC #### Testing performed at [address] [place] [address] URINE NITRATES Negative Normal NEGATIVE [facility] Comment on above: Performed By: #### U MAC #### Testing performed at [address] [address] URINE SPEC GRAVITY >1.030 High 1.010-1.025 [facility] Comment on above: Performed By: #### U MAC #### Testing performed at [address] [address] URINE TOTAL PROTEIN Negative Normal NEGATIVE [facility] Comment on above: Performed By: #### U MAC #### Testing performed at [address] [address] Urobilinogen Qn (U) 0.2 {Trent'U}/dL Normal 0.2-1.0 [facility] Comment on above: Performed By: #### U MAC #### Testing performed at [address] [address] URINE MICROSCOPICon 05-27-20 25 Bacteria LM.HPF (Urine sed) [#/Area] 1+ Abnormal NEGATIVE [facility] Casts LM.LPF (Urine sed) [#/Area] NONE NONE /LPF [facility] Crystals LM Nom (Urine sed) NONE NONE [facility] Epithelial cells LM Ql (Urine sed) 1 TO 5 /HPF [facility] Mucus Ql (Urine sed) TRACE Abnormal NEGATIVE [facility] RBC LM.HPF (Urine sed) [#/Area] 1 TO 5 NEGATIVE /HPF [facility] Urine sediment comments LM Florentino (Urine sed) REFLEX CULTURE PER ESTABLISHED CRITERIA. [facility] WBC LM.HPF (Urine sed) [#/Area] '5 TO 10 NEGATIVE /HPF [facility] BACTERIA 1+ Abnormal NEGATIVE [facility] Comment on above: Performed By: #### U MAC #### Testing performed at [address] [address] CASTS NONE Normal [facility] Comment on above: Performed By: #### U MAC #### Testing performed at [address] [address] CRYSTAL NONE Normal [facility] Comment on above: Performed By: #### U MAC #### Testing performed at [address] [address] Epithelial cells LM Ql (Urine sed) 1 TO 5 Normal [facility] Comment on above: Performed By: #### U MAC #### Testing performed at [address] [address] Mucus Ql (Urine sed) TRACE Abnormal NEGATIVE [facility] Comment on above: Performed By: #### U MAC #### Testing performed at [address] [address] URINE COMMENT REFLEX CULTURE PER ESTABLISHED CRITERIA. [facility] Comment on above: Performed By: #### U MAC #### Testing performed at [address] [address] URINE RBC'S 1 TO 5 Normal NEGATIVE [facility] Comment on above: Performed By: #### U MAC #### Testing performed at [address] [address] URINE WBC'S '5 TO 10 Normal NEGATIVE [facility] Comment on above: Performed By: #### U MAC #### Testing performed at [address] [address] Abdomen/Pelvis without Conto n 05-03-2025 Abdomen/Pelvis without Cont [facility] [address] [place] [address] Abdomen/Pelvis without Cont MR#: [id number] Acct: [id number] Name: BECKI JACKSON Rep #: [id number] : 1990 F 35 From: Robert guo MD PCP: Dr. María Hernandez MD Status: REG ER Study: Abdomen/Pelvis without Cont Date of Exam: 04/24 Exam# [id number] Ordering Dr: Edilson Michael DO PROCEDURE: ABDOMEN/PELVIS WITHOUT CONT 05/03/2025 REASON FOR EXAM: RIGHT FLANK PAIN Gastroparesis. TECHNIQUE: ABDOMEN/PELVIS WITHOUT CONT Noncontrast technique limits evaluation of the abdominal and pelvic viscera. Coronal and Sagittal reconstruction series were provided. One or more dose reduction techniques were used (e.g., Automated exposure control, adjustment of the mA and/or kV according to patient size, use of iterative reconstruction technique). RADIATION DOSE SUMMARY: CTDlvol: 24.18 mGy DLP: 1328.96 mGycm COMPARISON: Prior study dated July 18, 2024. FINDINGS: Lung bases: Unremarkable. Liver: Normal size. No obvious mass. Gallbladder: Surgically absent. Spleen: Normal size. Pancreas: Normal size. No surrounding inflammation. Adrenals: Unremarkable Kidneys: No urolithiasis. No hydronephrosis. Bladder: Unremarkable. Reproductive Organs: Uterus is unremarkable. Bowel: Unremarkable Appendix: The appendix is not identified. There is no inflammatory process identified in the right lower quadrant to suggest appendicitis. Lymph nodes: No suspicious lymph node enlargement. Vasculature: The abdominal aorta and IVC contours are normal. Noncontrast technique limits evaluation. Peritoneum / Retroperitoneum: Unremarkable Bones: Unremarkable CT/Abdomen/Pelvis without Cont IMPRESSION: UNREMARKABLE NONCONTRAST CT OF THE ABDOMEN AND PELVIS Reading Location: [place] [address] CC: Dr. Edilson Michael DO; Dr. María Hernandez MD R Developer: Signed Normal [facility] Absolute lymphocyte countOrd ered By: ED PROVIDER on 05-03-2025 Lymphocytes Auto (Unsp spec) [#/Vol] 1.34 10*3/uL 0.83-4.51 [facility] Absolute neutrophil countOrd ered By: ED PROVIDER on 05-03-2025 Neutrophils (Bld) [#/Vol] 5.9 10*3/uL 2.0-7.7 [facility] Anion gap in Serum or Plasma Ordered By: Edilson Michael on 05-03-2025 Anion gap [Moles/Vol] 12 mmol/L 5- [facility] Automated lymphocyte count a s percentage of total leukocytesOrdered By: ED PROVIDER on 05-03-2025 Lymphocytes/100 WBC Auto (Unsp spec) 16.7 % Low 19-41 [facility] BUN/creatinine ratioOrdered By: Edilson Michael on 05-03-2025 Urea nitrogen/Creatinine [Mass ratio] 15.4 mg/mg - [facility] Basic Metabolic Profile (BMP )on 05-03-2025 BUN/CRE 15.4 RATIO Normal - [facility] Comment on above: Order Comment: REDRA W. PREVIOUS SPECIMEN REJECTED DUE TO HEMOLYSIS. 05/03/25 1330 Cody L White. Performed By: #### L 500.2500, L501.4021 #### [facility] [address] [place], [address] Calcium [Mass/Vol] 8.7 mg/dL Normal 7.6-11.0 [facility] Comment on above: Order Comment: REDRA W. PREVIOUS SPECIMEN REJECTED DUE TO HEMOLYSIS. 05/03/25 1330 Cody L White. Performed By: #### L 500.2500, L501.4021 #### [facility] [address] [place], [address] Chloride [Moles/Vol] 105 mmol/L Normal 98-108 [facility] Comment on above: Order Comment: REDRA W. PREVIOUS SPECIMEN REJECTED DUE TO HEMOLYSIS. 05/03/25 1330 Cody L White. Performed By: #### L 500.2500, L501.4021 #### [facility] [address] [place], [address] CO2 [Moles/Vol] 20.2 mmol/L Low 21.0-32.0 [facility] Comment on above: Order Comment: REDRA W. PREVIOUS SPECIMEN REJECTED DUE TO HEMOLYSIS. 05/03/25 1330 Cody L White. Performed By: #### L 500.2500, L501.4021 #### [facility] [address] [place], [address] Creatinine [Mass/Vol] 0.75 mg/dL Normal 0.70-1.20 [facility] Comment on above: Order Comment: REDRA W. PREVIOUS SPECIMEN REJECTED DUE TO HEMOLYSIS. 05/03/25 1330 Cody L White. Performed By: #### L 500.2500, L501.4021 #### [facility] [address] [place], [address] ECRCL 141.13 ml/min Normal 50-250 [facility] Comment on above: Order Comment: REDRA W. PREVIOUS SPECIMEN REJECTED DUE TO HEMOLYSIS. 05/03/25 1330 Cody L White. Performed By: #### L 500.2500, L501.4021 #### [facility] [address] [place], [address] GAP 12 Normal 5-15 [facility] Comment on above: Order Comment: REDRA W. PREVIOUS SPECIMEN REJECTED DUE TO HEMOLYSIS. 05/03/25 1330 Cody L White. Performed By: #### L 500.2500, L501.4021 #### [facility] [address] [place], [address] GFR/1.73 sq M.predicted among non-blacks MDRD (S/P/Bld) [Vol rate/Area] 108 mL/min/{1.73_m2} Normal >60 [facility] Comment on above: Order Comment: REDRA W. PREVIOUS SPECIMEN REJECTED DUE TO HEMOLYSIS. 05/03/25 1330 Cody L White. Result Comment: mL/m in/1.73m2 CKD-EPI Creatinine Equation (2020) Performed By: #### L 500.2500, L501.4021 #### [facility] [address] [place], [address] Glucose [Mass/Vol] 82 mg/dL Normal 70-99 [facility] Comment on above: Order Comment: REDRA W. PREVIOUS SPECIMEN REJECTED DUE TO HEMOLYSIS. 05/03/25 1330 Cody L White. Performed By: #### L 500.2500, L501.4021 #### [facility] [address] [place], [address] Potassium [Moles/Vol] 3.7 mmol/L Normal 3.3-5.1 [facility] Comment on above: Order Comment: REDRA W. PREVIOUS SPECIMEN REJECTED DUE TO HEMOLYSIS. 05/03/25 1330 Cody L White. Performed By: #### L 500.2500, L501.4021 #### [facility] [address] [place], [address] Sodium [Moles/Vol] 137 mmol/L Normal 133-145 [facility] Comment on above: Order Comment: REDRA W. PREVIOUS SPECIMEN REJECTED DUE TO HEMOLYSIS. 05/03/25 1330 Cody L White. Performed By: #### L 500.2500, L501.4021 #### [facility] [address] [place], [address] Urea nitrogen [Mass/Vol] 12 mg/dL Normal 4-19 [facility] Comment on above: Order Comment: REDRA W. PREVIOUS SPECIMEN REJECTED DUE TO HEMOLYSIS. 05/03/25 1330 Cody L White. Performed By: #### L 500.2500, L501.4021 #### [facility] [address] [facility] [address] BUN Normal 4-19 [facility] Comment on above: Result Comment: This specimen has been REJECTED due to Laboratory criteria: Hemolyzed. ED [place]ley has been notified of need of recollection. 05/03/25 1329 Cody L White Performed By: #### L 100.0100, L500.2500 ####[facility] [address] [facility] [address] BUN/CRE Normal 10-20 [facility] Comment on above: Result Comment: This specimen has been REJECTED due to Laboratory criteria: Hemolyzed. ED Learning And Development Intern has been notified of need of recollection. 05/03/25 1329 Cody L White Performed By: #### L 100.0100, L500.2500 ####[facility] [address] [facility] [address] Calcium Normal 7.6-11.0 [facility] Comment on above: Result Comment: This specimen has been REJECTED due to Laboratory criteria: Hemolyzed. ED [place] has been notified of need of recollection. 05/03/25 1329 Cody L White Performed By: #### L 100.0100, L500.2500 ####[facility] [address] [facility] [address] CL Normal 98-108 [facility] Comment on above: Result Comment: This specimen has been REJECTED due to Laboratory criteria: Hemolyzed. ED [place] has been notified of need of recollection. 05/03/25 1329 Cody L White Performed By: #### L 100.0100, L500.2500 ####[facility] [address] [place], [address] CO2 Normal 21.0-32.0 [facility] Comment on above: Result Comment: This specimen has been REJECTED due to Laboratory criteria: Hemolyzed. ED [place] has been notified of need of recollection. 05/03/25 1329 Cody L White Performed By: #### L 100.0100, L500.2500 ####[facility] [address] [place], [address] CREAT,SERUM Normal 0.70-1.20 [facility] Comment on above: Result Comment: This specimen has been REJECTED due to Laboratory criteria: Hemolyzed. ED Learning And Development Intern has been notified of need of recollection. 05/03/25 1329 Cody L White Performed By: #### L 100.0100, L500.2500 ####[facility] [address] [place], [address] eGFR Normal >60 [facility] Comment on above: Result Comment: This specimen has been REJECTED due to Laboratory criteria: Hemolyzed. ED [place] has been notified of need of recollection. 05/03/25 1329 Cody L White Performed By: #### L 100.0100, L500.2500 ####[facility] [address] [place], [address] GAP Normal 5-15 [facility] Comment on above: Result Comment: This specimen has been REJECTED due to Laboratory criteria: Hemolyzed. ED Learning And Development Intern has been notified of need of recollection. 05/03/25 1329 Cody L White Performed By: #### L 100.0100, L500.2500 ####[facility] [address] [place], [address] GLU Normal 70-99 [facility] Comment on above: Result Comment: This specimen has been REJECTED due to Laboratory criteria: Hemolyzed. ED [place] has been notified of need of recollection. 05/03/25 1329 Cody L White Performed By: #### L 100.0100, L500.2500 ####[facility] [address] [place], [address] Potassium Normal 3.3-5.1 [facility] Comment on above: Result Comment: This specimen has been REJECTED due to Laboratory criteria: Hemolyzed. ED [place]ley has been notified of need of recollection. 05/03/25 1329 Cody Perez White Performed By: #### L 100.0100, L500.2500 ####[facility] [address] [place], [address] Basic Metabolic Profile (BMP) Normal 133-145 [facility] Comment on above: Result Comment: This specimen has been REJECTED due to Laboratory criteria: Hemolyzed. ED [place] has been notified of need of recollection. 05/03/25 1329 Cody Perez White Performed By: #### L 100.0100, L500.2500 ####[facility] [address] [place], [address] Basophil percentageOrdered B y: ED PROVIDER on 05-03-2025 Basophils/100 WBC (Bld) 0.7 % 0-[address] [facility] Bilirubin Test strip Ql (U)O rdered By: Edilson Michael on 05-03-2025 Bilirubin Ql (U) Negative Negative [facility] CBC W/Diff, Automatedon 04-24 0-2024 Absolute Lymph 1.34 X10 3/uL Normal 0.83-4.51 [facility] Comment on above: Performed By: #### L 100.0100 ####[facility] [address] [place], [address] Absolute Neut 5.9 X10 3/uL Normal 2.0-7.7 [facility] Comment on above: Performed By: #### L 100.0100 ####[facility] [address] [place], [address] Basophils/100 WBC (Bld) 0.7 % Normal 0-[address] [facility] Comment on above: Performed By: #### L 100.0100 ####[facility] [address] [place], [address] Eosinophils/100 WBC (Bld) 1.5 % Normal 0-5 [facility] Comment on above: Performed By: #### L 100.0100 ####[facility] [address] [place], [address] Erythrocyte distribution width (RBC) [Ratio] 13.0 % Normal 11.6-14.6 [facility] Comment on above: Performed By: #### L 100.0100 ####[facility] [address] [place], [address] Hematocrit (Bld) [Volume fraction] 39.9 % Normal 37-47 [facility] Comment on above: Performed By: #### L 100.0100 ####[facility] [address] [place], [address] Hemoglobin (Bld) [Mass/Vol] 13.0 g/dL Normal 12.0-15.0 [facility] Comment on above: Performed By: #### L 100.0100 ####[facility] [address] [place], [address] IG% 0.500 Normal 0.0-0.9 [facility] Comment on above: Result Comment: IG% - Immature Granulocytes (promyelocytes, myelocytes and metamyelocytes) > 1% indicates that a LEFT SHIFT is Present. Performed By: #### L 100.0100 ####[facility] [address] [place], [address] Lymphocytes/100 WBC (Bld) 16.7 % Low 19-41 [facility] Comment on above: Performed By: #### L 100.0100 ####[facility] [address] [place], [address] MCH (RBC) [Entitic mass] 29.5 pg Normal 27.0-32.0 [facility] Comment on above: Performed By: #### L 100.0100 ####[facility] [address] [place], [address] MCHC (RBC) [Mass/Vol] 32.6 g/dL Normal 32-36 [facility] Comment on above: Performed By: #### L 100.0100 ####[facility] [address] [place], [address] MCV (RBC) [Entitic vol] 90.5 fL Normal 81-[address] [facility] Comment on above: Performed By: #### L 100.0100 ####[facility] [address] [place], [address] Monocytes/100 WBC (Bld) 7.1 % Normal 0-[address] [facility] Comment on above: Performed By: #### L 100.0100 ####[facility] [address] [place], [address] Neutrophils/100 WBC (Bld) 73.5 % High 47-70 [facility] Comment on above: Performed By: #### L 100.0100 ####[facility] [address] [place], [address] Nucleated RBC (Bld) [#/Vol] 0 10*3/uL Normal 0-5 [facility] Comment on above: Performed By: #### L 100.0100 ####[facility] [address] [place], [address] Platelet mean volume (Bld) [Entitic vol] 9.2 fL Normal 6.2-12.0 [facility] Comment on above: Performed By: #### L 100.0100 ####[facility] [address] [place], [address] Platelets (Bld) [#/Vol] 317 10*3/uL Normal 150-450 [facility] Comment on above: Performed By: #### L 100.0100 ####[facility] [address] [place], [address] RBC (Bld) [#/Vol] 4.41 10*6/uL Normal 4.2-5.4 [facility] Comment on above: Performed By: #### L 100.0100 ####[facility] [address] [place], [address] RDW SD 42.8 fl Normal 35.1-43.9 [facility] Comment on above: Performed By: #### L 100.0100 ####[facility] [address] [place], [address] WBC (Bld) [#/Vol] 8.0 10*3/uL Normal 4.4-11.0 [facility] Comment on above: Performed By: #### L 100.0100 ####[facility] [address] [place], [address] Absolute Neut Normal 2.0-7.7 [facility] Comment on above: Result Comment: CLOT YIFAN, SPOKE WITH ANNABEL Performed By: #### L 100.0100, L500.2500 ####[facility] [address] [place], [address] HCT Normal 37-47 [facility] Comment on above: Result Comment: CLOT YIFAN, SPOKE WITH ANNABEL Performed By: #### L 100.0100, L500.2500 ####[facility] [address] [place], [address] HGB Normal 12.0-15.0 [facility] Comment on above: Result Comment: CLOT YIFAN, SPOKE WITH ANNABEL Performed By: #### L 100.0100, L500.2500 ####[facility] [address] [place], [address] MCH Normal 27.0-32.0 [facility] Comment on above: Result Comment: CLOT YIFAN, SPOKE WITH ANNABEL Performed By: #### L 100.0100, L500.2500 ####[facility] [address] [place], [address] MCHC Normal 32-36 [facility] Comment on above: Result Comment: CLOT YIFAN, SPOKE WITH ANNABEL Performed By: #### L 100.0100, L500.2500 ####[facility] [address] [place], [address] MCV Normal 81-99 [facility] Comment on above: Result Comment: CLOT YIFAN, SPOKE WITH ANNABEL Performed By: #### L 100.0100, L500.2500 ####[facility] [id number] [place], [address] NEUT% Normal 47-70 [facility] Comment on above: Result Comment: CLOT YIFAN, SPOKE WITH ANNABEL Performed By: #### L 100.0100, L500.2500 ####[facility] [address] [place], [address] PLT Normal 150-450 [facility] Comment on above: Result Comment: CLOT YIFAN, SPOKE WITH ANNABEL Performed By: #### L 100.0100, L500.2500 ####[facility] [address] [place], [address] RBC Normal 4.2-5.4 [facility] Comment on above: Result Comment: CLOT YIFAN, SPOKE WITH ANNABEL Performed By: #### L 100.0100, L500.2500 ####[facility] [address] [place], [address] RDW CV Normal 11.6-14.6 [facility] Comment on above: Result Comment: CLOT YIFAN, SPOKE WITH ANNABEL Performed By: #### L 100.0100, L500.2500 ####[facility] [address] [place], [address] RDW SD Normal 35.1-43.9 [facility] Comment on above: Result Comment: CLOT YIFAN, SPOKE WITH ANNABEL Performed By: #### L 100.0100, L500.2500 ####[facility] [address] [place], [address] WBC Normal 4.4-11.0 [facility] Comment on above: Result Comment: ROBIN YIFAN, SPOKE WITH ANNABEL Performed By: #### L 100.0100, L500.2500 ####[facility] [address] [place], [address] Carbon dioxide, total [Moles /volume] in Central venous bloodOrdered By: Edilson Michael on 05-03-2025 CO2 [Moles/Vol] 20.2 mmol/L Low 21.0-32.0 [facility] Chest 1 View (Portable)on Chest 1 View (Portable) [facility] Imaging Services [address] [place] [address] Chest 1 View (Portable) MR#: [id number] Acct: [id number] Name: BECKI JACKSON Rep #: [id number] : 1990 F 35 From: Rudi Thakur PCP: Dr. María Hernandez MD Status: PRE ER Study: Chest 1 View (Portable) Date of Exam: 05/03/25 Exam# [id number] Ordering Dr: Edilson Michael DO PROCEDURE: CHEST 1 VIEW (PORTABLE) 05/03/2025 REASON FOR EXAM: CHEST PAIN TECHNIQUE: Frontal view of the chest. COMPARISON: Chest x-ray of 07/10/2022. FINDINGS: Heart: The heart size is normal. Lungs: The lungs are clear. No pleural effusion or pneumothorax is seen. Bones: The bones are unremarkable. RAD/Chest 1 View (Portable) IMPRESSION: Negative Chest. Reading Location: [address] CC: Dr. Edilson Michael DO; Dr. María Hernandez MD R Developer: Signed Normal [facility] Chloride assayOrdered By: Junior Michael on 05-03-2025 Chloride [Moles/Vol] 105 mmol/L 98-108 [facility] Emergency Department Summary on 05-03-2025 Emergency Department Summary [facility] Medical Records Department [address] [place] [address] Emergency Department Summary 05/03/25 MR#: [id number] Acct: [id number] Name: BECKI JACKSON Rep #: [id number] : 1990 35 From: Edilson Michael DO PCP: Dr. María Hernandez MD Status:DEP ER Location: ED HPI History of Present Illness Chief Complaint: Chest Pain Informant: patient Onset/Context/Timing Onset: Days (2) Context: Gradual Onset Timing: Continuous Quality: Dull Location: Right side of abdomen, left axilla, left chest, and left arm Worsened by: Movement Relieved by: Nothing Narrative Narrative: Patient presents with right side pain in the left axillary and chest pain that began 2 days ago. Patient states it is gradually getting worse. Patient describes it as dull. Patient states it is over the right side of her abdomen and right flank. Patient states it also is in the left axilla left arm and left chest. Patient states her pain is worse with movement. Patient states nothing makes it better. Patient denies any shortness of breath or cough. Patient admits to some nausea and vomiting. Patient denies any dysuria or hematuria. [facility] Medical History Right ankle sprain Right ankle pain Gastroparesis Wears glasses Bipolar disorder Depression Anxiety Alcohol use Arthritis Excessive bleeding Easy bruising Restless legs Back pain Migraine headache Seizures Loss of consciousness Diarrhea Nausea Gastric reflux Asthma Smoker Leg cramps Home Medications ???Medication ???Instructions ???Recorded ???Last Taken ???Type nitrofurantoin 100 mg PO Q12 #10 CAPSULES 5 Unknown Rx monohydrate/macrocrys tals 100 mg capsule Allergy/AdvReac Type Severity Reaction Status Date / Time Iodinated Contrast Media Allergy Nausea/Vom/ Verified 05/03/25 12:33 (DYEE) Diarrhea Penicillins Allergy Hives Verified 05/03/25 12:33 Sulfa (Sulfonamide Allergy Hives Verified 05/03/25 12:33 Antibiotics) Family History Grandfather Cancer pancreatic Grandfather Cancer unknown Father COPD (chronic obstructive pulmonary disease) Hypertension Mother Diabetes Thyroid disorder Surgical History History of salpingectomy Hx of cholecystectomy H/O knee surgery History of tonsillectomy and adenoidectomy Social History household members: significant other and children Smoking Status: Former smoker quit date: 04/24/23 alcohol intake: never substance use type: does not use ROS ROS ED Constitutional Constitutional ED: Denies chills or fever(s) Eyes Eyes: Denies blurry vision or change in vision ENT ENT ED: Denies rhinorrhea or sore throat Cardiovascular Cardiovascular: Reports chest pain; Denies palpitations Respiratory/Chest Respiratory/Chest: Denies cough or dyspnea Gastrointestinal Gastrointestinal: Reports nausea and vomiting Genitourinary Genitourinary ED: Denies dysuria or hematuria Musculoskeletal Musculoskeletal: Reports back pain; Denies neck pain Integumentary Denies abscess or rash Neurologic Neurologic: Reports headache(s); Denies weakness Allergic/Immunologic Allergic/Immunologic ED: Denies mouth swelling or urticaria EXAM Physical Exam Const Vital Signs: 05/03/25 12:31 05/03/25 13:49 05/03/25 13:54 Temperature 96.4 F L Temperature Source Oral Pulse Rate 80 Respiratory Rate 16 Respiratory Effort Normal Respiratory Pattern Normal Blood Pressure 143/76 H Blood Pressure Mean 98 Pulse Ox 100 Oxygen Delivery Method Room Air Room Air 05/03/25 14:03 05/03/25 15:00 05/03/25 16:00 Temperature Temperature Source Pulse Rate 74 67 60 Respiratory Rate 16 18 17 Respiratory Effort Respiratory Pattern Blood Pressure 121/72 H 109/67 126/78 H Blood Pressure Mean 88 81 94 Pulse Ox 98 97 100 Oxygen Delivery Method Room Air Room Air Room Air 05/03/25 17:00 Temperature 98.5 F Temperature Source Pulse Rate 63 Respiratory Rate 18 Respiratory Effort Respiratory Pattern Blood Pressure 103/56 L Blood Pressure Mean 71 Pulse Ox 100 Oxygen Delivery Method Positive well nourished and well developed Constitutional Narrative: BMI is 46.2 General Appearance ED: well developed and NAD HEENT Reports moist mucous membranes Neck supple and no JVD Chest Wall palpation of chest normal Resp normal respiratory effort and clear to auscultation bilaterally Cardio regular rate and regular rhythm GI non-distended Palpation: soft and tender RUQ Back/Spine (more content not included)... Normal [facility] Eosinophil percentageOrdered By: ED PROVIDER on 05-03-2025 Eosinophils/100 WBC (Bld) 1.5 % 0-5 [facility] Erythrocyte distribution wid th ratioOrdered By: ED PROVIDER on 05-03-2025 Erythrocyte distribution width (RBC) [Ratio] 13.0 % 11.6-14.6 [facility] Erythrocyte distribution wid th standard deviationOrdered By: ED PROVIDER on 05-03-2025 Erythrocyte distribution width (RBC) [Ratio] 42.8 fl 35.1-43.9 [facility] Glomerular filtration rate ( GFR) estimation/1.73 sq m using serum, plasma, or whole bOrdered By: Edilson Michael on 05-03-2025 GFR/1.73 sq M.predicted among non-blacks MDRD (S/P/Bld) [Vol rate/Area] 108 mL/min/{1.73_m2} >60 [facility] Comment on above: mL/min/1.73m2 CKD-EP I Creatinine Equation (2020) Hematocrit Auto (Bld) [Volum e fraction]Ordered By: ED PROVIDER on 05-03-2025 Hematocrit (Bld) [Volume fraction] 39.9 % 37-47 [facility] Hemoglobin measurementOrdere d By: ED PROVIDER on 05-03-2025 Hemoglobin (Bld) [Mass/Vol] 13.0 g/dL 12.0-15.0 [facility] Immature granulocytes/100 WB C Auto (Bld)Ordered By: ED PROVIDER on 05-03-2025 Immature granulocytes/100 WBC (Bld) 0.500 % 0.0-0.9 [facility] Comment on above: IG% - Immature Granu locytes (promyelocytes, myelocytes and metamyelocytes) > 1% indicates that a LEFT SHIFT is Present. Ketones Test strip Ql (U)Ord ered By: Edilson Michael on 05-03-2025 Ketones Ql (U) Negative Negative [facility] L499.0042on 05-03-2025 Trop T High Sen Normal <=14 [facility] Comment on above: Result Comment: PT D ISCHARGED Performed By: #### L 499.0042 #### [facility] [address] [place], [address] L499.0043on 05-03-2025 Trop T High Sen Normal <=14 [facility] Comment on above: Result Comment: PAUL ENT DISCHARGED Performed By: #### L 499.0043 ####[facility] [address] [place], [address] L501.4021on 05-03-2025 Trop T High Sen < 6 Normal <=14 [facility] Comment on above: Order Comment: ANAY W. PREVIOUS SPECIMEN REJECTED DUE TO HEMOLYSIS. 05/03/25 1330 [address] Bonner. Performed By: #### L 500.2500, L501.4021 #### [facility] [address] [place], [address] MCV (mean corpuscular volume ) determinationOrdered By: ED PROVIDER on 05-03-2025 MCV (RBC) [Entitic vol] 90.5 fL 81-[address] [facility] Mean corpuscular hemoglobin (MCH) determinationOrdered By: ED PROVIDER on 05-03-2025 MCH (RBC) [Entitic mass] 29.5 pg 27.0-32.0 [facility] Mean corpuscular hemoglobin concentration (MCHC) determinationOrdered By: ED PROVIDER on 05-03-2025 MCHC (RBC) [Mass/Vol] 32.6 g/dL 32-36 [facility] Mean platelet volume determi nationOrdered By: ED PROVIDER on 05-03-2025 Platelet mean volume (Bld) [Entitic vol] 9.2 fL 6.2-12.0 [facility] Microscopic analysis of urin e for red blood cells (RBC)Ordered By: Edilson Michael on 05-03-2025 Microscopic analysis of urine for red blood cells (RBC) 0-5 SEEN /hpf 0-5 [facility] Monocyte percentageOrdered B y: ED PROVIDER on 07-10-2025 Monocytes/100 WBC (Bld) 7.1 % 0-[address] [facility] Mucus LM Ql (Urine sed)Order ed By: Edilson Michael on 05-03-2025 Mucus Ql (Urine sed) 0 SEEN /hpf [facility] Neutrophil percentageOrdered By: ED PROVIDER on 05-03-2025 Neutrophils/100 WBC (Bld) 73.5 % High 47-70 [facility] Nitrite Test strip Ql (U)Ord ered By: Edilson Michael on 05-03-2025 Nitrite Ql (U) Negative Negative [facility] Nucleated red blood cell per centageOrdered By: ED PROVIDER on 05-03-2025 Nucleated RBC/100 WBC (Bld) [Ratio] 0 % 0-5 [facility] Platelet countOrdered By: ED PROVIDER on 05-03-2025 Platelets (Bld) [#/Vol] 317 10*3/uL 150-450 [facility] Potassium measurement (mass/ volume)Ordered By: Edilson Michael on 05-03-2025 Potassium (Unsp spec) [Mass/Vol] 3.7 mmol/L 3.3-5.1 [facility] Protein Test strip Ql (U)Ord ered By: Edilson Michael on 05-03-2025 Protein Ql (U) Negative Negative [facility] RBC Auto (Bld) [#/Vol]Ordere d By: ED PROVIDER on 05-03-2025 RBC (Bld) [#/Vol] 4.41 10*6/uL 4.2-5.4 [facility] Serum creatinine measurement (mass/volume)Ordered By: Edilson Michael on 05-03-2025 Creatinine [Mass/Vol] 0.75 mg/dL 0.70-1.20 [facility] Serum glucose measurement (m ass/volume)Ordered By: Edilson Michael on 05-03-2025 Glucose [Mass/Vol] 82 mg/dL 70-99 [facility] Serum or plasma calcium yolie urement (mass/volume)Ordered By: Edilson Michael on 05-03-2025 Calcium [Mass/Vol] 8.7 mg/dL 7.6-11.0 [facility] Serum or plasma urea nitroge n measurement (mass/volume)Ordered By: Edilson Michael on 05-03-2025 Urea nitrogen [Mass/Vol] 12 mg/dL 4-19 [facility] Sodium levelOrdered By: Edilson Michael on 05-03-2025 Sodium [Moles/Vol] 137 mmol/L 133-145 [facility] Squamous epithelial cells de tection in urine sediment by light microscopyOrdered By: Edilson Michael on 05-03-2025 Epithelial cells.squamous LM Ql (Urine sed) 10-25 SEEN /hpf -10 [facility] Troponin T.cardiac [Mass/vol ume] in Serum or Plasma by High sensitivity methodOrdered By: Edilson Michael on 05-03-2025 Troponin T.cardiac High sensitivity method [Mass/Vol] < 6 ng/L <14 [facility] Urinalysis, Completeon 05-03 WBC 25-50 SEEN Normal 0-5 [facility] Comment on above: Order Comment: CLEAN CATCH Performed By: #### L 400.0001 #### [facility] [address] [facility] [address] RBC 0-5 SEEN Normal 0-5 [facility] Comment on above: Order Comment: CLEAN CATCH Performed By: #### L 400.0001 #### [facility] [address] [facility] [address] BACTERIA 1+ /hpf Normal None Seen [facility] Comment on above: Order Comment: CLEAN CATCH Performed By: #### L 400.0001 #### [facility] [address] [facility] [address] EPI,SQUAMOUS 10-25 SEEN Normal 5-10 [facility] Comment on above: Order Comment: CLEAN CATCH Performed By: #### L 400.0001 #### [facility] [address] [place], [address] Mucus Ql (Urine sed) 0 SEEN Normal [facility] Comment on above: Order Comment: CLEAN CATCH Performed By: #### L 400.0001 #### [facility] [address] [facility] [address] Urine clarityOrdered By: Morelia Michael on 05-03-2025 Clarity (U) Sl. Cloudy Clear [facility] Urine color determinationOrd ered By: Edilson Michael on 05-03-2025 Color (U) Yellow Yellow [facility] Urine glucose detectionOrder ed By: Edilson Michael on 05-03-2025 Glucose Ql (U) Normal mg/dl Normal [facility] Urine leukocyte esterase det ection by dipstickOrdered By: Edilson Michael on 05-03-2025 Leukocyte esterase Test strip Ql (U) 500 /ul High Negative [facility] Urine pHOrdered By: Edilson العراقي on 05-03-2025 pH (U) 6.0 [pH] 5.0 - 8.0 [facility] Urine sediment bacteria coun t by microscopy (number/high power field)Ordered By: Edilson Michael on 05-03-2025 Bacteria LM.HPF (Urine sed) [#/Area] 1 /[HPF] None Seen [facility] Urine specific gravity measu rementOrdered By: Edilson Michael on 05-03-2025 Specific gravity (U) [Rel density] 1.015 1.002-1.030 [facility] Urine urobilinogen measureme ntOrdered By: Edilson Michael on 05-03-2025 Urobilinogen Ql (U) Normal mg/dl Normal [facility] White blood cell (WBC) count Ordered By: ED PROVIDER on 05-03-2025 WBC (Bld) [#/Vol] 8.0 10*3/uL 4.4-11.0 [facility] White blood cell countOrdere d By: Edilson Michael on 05-03-2025 White blood cell count 25-50 SEEN /hpf 0-5 [facility] CNPNon 09-15-2024 CNPN Telephone (NEPHALFPOPS) BECKI JACKSON ([id number]) 1990 F Date Time Provider Department 09/15/24 LEONEL DEL CID During your visit today, we recorded the following information about you: Pulse Blood pressure Weight 98/minute 116/62 111.1 kg Dalila Griffith 09/15/2024 1:34 PM Signed Patient weight faxed to office for ketamine infusions; indexed into patient's chart under scanned documents. Yuliana Parks RN 09/18/2024 8:28 AM Signed Weight is entered from weight check performed on 09/06/[address] Hernandez at [facility], and is entered into Vitals in patient EMR Weight is: 245 lbs / 111.131 kg YURI Torres, RN September 18, 2024 8:21 AM Allergies As of Date: 09/15/2024 Noted Allergy Reaction IODINATED CONTRAST MEDIA 01/20/2023 11 - Vomiting PENICILLINS 11/12/2011 4 - Hives SULFA (SULFONAMIDE ANTIBIOTICS) 01/25/2013 4 - Hives Date Reviewed: 08/15/2024 Reviewed by: Claire Flanagan DO - Fully Assessed Reason for Visit: Weight Check [196] Cmt: Weight is entered from weight check performed on 09/06/[address] Hernandez at [facility], and is entered into Vitals in patient EMR/clnRN Prescriptions as of 09/18/2024 - meclizine (ANTIVERT) 25 mg tab Take 1 tablet by mouth three times a day. - lubiprostone (AMITIZA) 8 mcg capsule Take 1 capsule by mouth two times a day with meals. - apixaban (ELIQUIS) 5 mg tab(s) Take 1 tablet by mouth every 12 hours. - granisetron HCl (KYTRIL) 1 mg tablet Take 1 tablet by mouth every 12 hours as needed. - aprepitant (EMEND) 80 mg capsule Take 1 capsule by mouth once daily. - busPIRone (BUSPAR) 10 mg tablet Take 1 tablet by mouth three times a day. - clonazePAM (KLONOPIN) 0.5 mg tablet Take 1 tablet by mouth once daily as needed for up to 7 days. - gabapentin (NEURONTIN) 300 mg capsule Take 300 mg by mouth three times a day. - paliperidone ER (INVEGA) 3 mg 24 hr tablet Take 3 mg by mouth once daily. - folic acid 400 mcg tablet Take 400 mcg by mouth once daily. - albuterol HFA (PROAIR HFA) 90 mcg/actuation inhaler Inhale 2 Puffs as instructed every 4 hours as needed for Wheezing/Shortness of Breath. Problem List As Of Date 09/15/2024 Noted Resolved IBS (irritable bowel syndrome) [K58.9] 05/30/2015 Supervision of normal first [Z34.00] 11/27/2011 04/03/2013 depression [F53.0] 08/12/2012 05/30/2015 Short interval between pregnancies complicating*04/03/20 13 11/01/2013 History of CMV [Z86.19] 04/03/2013 01/08/2016 with uncertain dates [Z34.90] 04/03/2013 08/22/2013 Chronic back pain [M54.9, G89.29] 04/03/2013 05/30/2015 History of depression [Z86.59] 04/03/2013 05/30/2015 Patient requested diagnostic testing [Z01.89] 04/03/2013 11/01/2013 Quit smoking [Z87.891] 04/03/2013 05/30/2015 Family history of congenital heart defect [Z82.*04/03/2013 11/01/2013 Tooth decay [K02.9] 04/03/2013 05/30/2015 Normal [Z34.90] 04/19/2013 11/01/2013 Supervision of other high-risk (V23.89*07/2605/30/2015 Group B Streptococcus carrier, +RV culture, cur*10/26/2013 05/30/2015 Sebaceous cyst [L72.3] 04/17/2014 05/30/2015 Poor support system complicating [O09*05/30/2015 01/08/2016 History of depression, currently pre*05/30/2015 01/08/2016 Obesity affecting [O99.210] 05/30/2015 01/08/2016 Rubella non-immune status, antepartum [O09.899,*06/03/2015 01/08/2016 Encounter for supervision of normal i*10/21/2015 01/08/2016 Short interval between pregnancies affecting pr*08/27/2016 06/07/2017 with uncertain dates [Z34.90] 08/27/2016 03/31/2017 History of prior with IUGR [Z*08/27/2016 06/07/2017 Back pain in [O99.891, M54.9] 08/27/2016 06/07/2017 History of depression [Z86.59] 08/27/2016 Family history of congenital heart defect [Z82.*08/27/2016 Patient requested diagnostic testing [Z01.89] 08/27/2016 03/31/2017 Drug use affecting in third trimester*03/17/2017 Gastroparesis [K31.84] 01/20/2023 Electronic cigarette use [Z78.9] 01/20/2023 Class 3 severe obesity in adult (HCC) [E66.813,*01/20/2023 Abdominal pain [R10.9] 05/24/2023 Pharyngoesophageal dysphagia [R13.14] 08/30/2023 Transaminitis [R74.01] 12/07/2023 Substance abuse (HCC) [F19.10] 12/07/2023 Bipolar disorder (HCC) [F31.9] 12/07/2023 Malnutrition of mild degree (HCC) [E44.1] 12/08/2023 Acute liver failure without hepatic coma [K72.0*12/13/2023 Cannabis use disorder [F12.90] 12/13/2023 Encounter Status:Closed by DALILA GRIFFITH on 09/15/24 Normal [facility] ED MED ADMINISTRATION DETAIL on 09-15-2024 ED MED ADMINISTRATION DETAIL 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 Given 5-325 (Percocet) PO Allergies verified and confirmed 5 rights. Information reviewed 09:13 09/15/2024 1 tab (NOW x1) including sedative warning. - 09:14 Angelita Arciniega R.N. Scanned 10:09/15 Medication Response: Pain is worsening. Symptoms have gotten worse. The patient feels worse. ED physician notified. 10:09/15/2024. Pain level now 08/03. - 10:02 Nguyễn Maya R.N. 11:09/15 Medication Response: No adverse reaction. The patient feels the same. - 11:11 Yvette Eason R.N. MORPHine IM 4 mg 10:09/15 MORPHine IM 4 mg given. Given in the right deltoid. Given (NOW x1, HIGH Allergies verified. Information reviewed with patient including 10:09/15/2024 ALERT sedative warning. - 10:09 Angelita Arciniega R.N. MEDICATION) Scanned 11:09/15 Medication Response: No adverse reaction. The patient feels the same. - 11:11 Yvette Eason R.N. Ondansetron ODT 10:06 09/15 Ondansetron ODT PO 4 mg given. Confirmed 5 Given PO 4 mg (NOW x1) rights. - 10:06 Nguyễn Maya R.N. 10:06 09/15/2024 Nguyễn Maya R.N. Scanned 1 of 1 Normal [facility] ED NURSES CLINICAL NOTEon ED NURSES CLINICAL NOTE Nurse Narrative Nurse Clinical Narrative [facility] [address] [place] [address]. [place] [address] [phone] 09/15/2024 Patient: BECKI JACKSON Sex: Female : 1990 Age: 34y Disposition: Discharge Disposition Decision Time: 10:39 09/15/2024 Departure Time: 11:07 09/15/2024 TRIAGE Arrived by private vehicle. Historian: patient. Triage time: 08:57 09/15/2024. Acuity: LEVEL 3. Chief Complaint: BACK PAIN. Onset. (about 1 weeks ago). The patient has had numbness, tingling, and decreased urination. SEPSIS SCREEN: NEGATIVE. SIRS criteria negative. No possible sources of infection. -- 09:09/15/24 KARISSA Maya R.N. 09:09/15/24. BP: 111/67 MAP: 82. HR: 87. RR: 19. O2 saturation: 98% Temperature: 97.7 F. Pain level now 9/10. Describes the pain as sharp. -- 09:09/15/24 KARISSA Maya R.N. Measurements: 09:09/15/24 Wt: 111.1 kg, Ht/Rafat: 65.0 in, BMI: 40.77 -- 09:09/15/24 KARISSA Maya R.N. Medications: hydroxyzine HCl 25 mg tablet: (pt states does not take) -- 09:09/15/24 KARISSA Maya R.N. gabapentin 300 mg capsule: (pt states does not take) -- 09:09/15/24 KARISSA Maya R.N. paliperidone ER 3 mg tablet,extended release 24 hr: 1 tablet once a day. -- 09:09/15/24 KARISSA Maya R.N. 1 of 4 Nurse Narrative trazodone 50 mg tablet: 1 tablet once a day. -- 09:09/15/24 KARISSA Maya R.N. meclizine 25 mg tablet: 1 tablet once a day. -- 09:09/15/24 KARISSA Maya R.N. furosemide 20 mg tablet: 1 tablet once a day. -- 09:09/15/24 KARISSA Maya R.N. folic acid 400 mcg tablet: 1 tablet once a day. -- 09:09/15/24 KARISSA Maya R.N. Emend 80 mg capsule: 1 capsule once a day. -- 09:09/15/24 KARISSA Maya R.N. Eliquis 5 mg tablet: 1 tablet twice a day. -- 09:09/15/24 KARISSA Maya R.N. baclofen 10 mg tablet: Stopped 09/15/2024. -- 09:07 09/15/24 KARISSA Maya R.N. buspirone 10 mg tablet: 1 tablet three times a day. -- 09:07 09/15/24 KARISSA Maya R.N. albuterol sulfate HFA 90 mcg/actuation aerosol inhaler: 2 puff as needed. -- 09:07 09/15/24 KARISSA Maya R.N. Allergies: Sulfa -- 08:59 09/15/[address] dye -- 08:59 09/15/24 KARISSA Maya R.N. amoxicillin -- 08:59 09/15/24 KARISSA Maya R.N. Penicillins -- 08:59 09/15/24 KARISSA Maya R.N. Problems: Insomnia -- 08:59 09/15/24 KARISSA Maya R.N. Bipolar Disorder -- 08:59 09/15/24 KARISSA Maya R.N. Gastroparesis -- 08:59 09/15/24 KARISSA Maya R.N. liver failure -- 09:00 09/15/24 KARISSA Maya R.N. ADHD - Attention Deficit Hyperactivity Disorder -- 09:00 09/15/24 KARISSA Maya R.N. Anxiety disorder -- 09:00 09/15/24 KARISSA Maya R.N. ADDITIONAL SURGERIES: Tonsillectomy Adenoidectomy -- 09:01 09/15/24 KARISSA Maya R.N. Cholecystectomy -- 09:01 09/15/24 KARISSA Maya R.N. Tubal Ligation -- 09:01 09/15/24 KARISSA Maya R.N. History 08:57 09/15/24. SOCIAL HX: Never smoker. No alcohol use or drug use. The patient has not traveled outside the [place] Infectious disease exposure: No infectious disease exposure. 2 of 4 Nurse Narrative ABUSE ASSESSMENT: The patient answered yes to the question(s) Do you feel safe in your home? and no to the question(s) Are you afraid to go home?. SELF HARM ASSESSMENT: Self harm assessment was performed. The patient answered no to the question(s) Have you recently felt down, depressed, or hopeless? and Do you have thoughts of harming or killing yourself?. FALL RISK ASSESSMENT: Fall risk assessment completed. No risk factors identified. -- 09:02 09/15/24 KARISSA Maya R.N. Interventions 08:57 09/15/24. Allergy band on patient. To room. -- 09:02 09/15/24 KARISSA Maya R.N. PHYSICAL ASSESSMENT 09:11 09/15/24. GENERAL / NEURO / PSYCH: Alert. Oriented X 4. Appears in pain. RESPIRATORY: Respirations not labored. GI / : No CVA tenderness. BACK: Vertebral point tenderness over the lumbar spine. -- 09:11 09/15/24 KARISSA Maya R.N. NURSING PROGRESS NOTES 09:13 09/15/24. OxyCODONE-APAP 5-325 (Percocet) PO 1 tab given. Allergies verified and confirmed 5 rights. Information reviewed including sedative warning. -- 09:14 09/15/24 KARISSA Maya R.N. 09:22 09/15/24. Patient transported to MRI by wheelchair. -- 09:22 09/15/24 KARISSA Maya R.N. 09:58 09/15/24. Patient returned from MRI by wheelchair. -- 09:59 09/15/24 KARISSA Maya R.N. 10:02 09/15/24. OxyCODONE-APAP 5-325 (Percocet) PO: Medication Response. Pain is worsening. Symptoms have gotten worse. The patient feels worse. ED physician notified. 10:01 09/15/2024. Pain level now 10/10. -- 10:02 09/15/24 KARISSA Maya R.N. 10:06 09/15/24. Ondansetron ODT PO 4 mg given. Confirmed 5 rights. -- 10:06 09/15/24 KARISSA Maya R.N. 10:07 09/15/24. MORPHine IM 4 mg (more content not included)... [facility] ED ORDER SHEET (CPOE ONLY)on 09-15-2024 ED ORDER SHEET (CPOE ONLY) Order Sheet Order Sheet [place] [address] [place] [address] [phone] 09/15/2024 Patient: BECKI JACKSON Sex: Female : 1990 Age: 34y MEASUREMENTS: Wt: 111.1 kg, Ht/Rafat: 65.0 in, BMI: 40.77 ALLERGIES: CT dye, Penicillins, Sulfa, amoxicillin MEDICATION/IV/DRIP/FL UID ORDERS Order Description Priority Entered Acknowledged Completed OxyCODONE-APAP 5-325 09:09 09/15/2024 09:13 09:14 (Percocet) PO1 tab (NOW x1) Cameron Avilez, 09/15/2024 09/15/2024 Nguyễn Dunn, R.N. R.N. Reason for ordering with alerts: Benefits outweigh risks --09:09 09/15/2024 Cameron Avilez D.O. MORPHine IM4 mg (NOW x1, 10:02 09/15/2024 10:02 10:09 HIGH ALERT MEDICATION) Cameron Avilez, 09/15/2024 09/15/2024 Nguyễn Dunn, R.N. R.N. Reason for ordering with alerts: Benefits outweigh risks --10:02 09/15/2024 Cameron Avilez D.O. Ondansetron ODT PO4 mg 10:02 09/15/2024 10:02 10:06 (NOW x1) Cameron Avilez, 09/15/2024 09/15/2024 Nguyễn Dunn R.N. R.N. 1 of 2 Order Sheet LAB ORDERS Order Description Priority Entered Acknowledged Collected Completed DIAGNOSTIC STUDY ORDERS Order Description Priority Entered Acknowledged Completed MRI Lumbar Spine wo Cont Stat Stat 09:09 09/15/2024 09:13 10:02 Cameron Avilez, 09/15/2024 09/15/2024 Nguyễn Dunn, R.N. R.N. Order Comments: 09:09 09/15/2024: Status: Not . Cameron Avilez D.O. Reason for Study: Back Pain,Lower Back Pain STAFF ORDERS Order Description Priority Entered Acknowledged Collected Completed [Electronically signed by Cameron Avilez D.O. (09/15/2024 10:57 EST)] 2 of 2 [facility] ED PHYSICIAN CLINICAL REPORT on 09-15-2024 ED PHYSICIAN CLINICAL REPORT Narrative Physician Clinical Narrative [facility] [address] [place] [address] [phone] 09/15/2024 Patient: BECKI JACKSON Sex: Female : 1990 Age: 34y Disposition: Discharge Disposition Decision Time: 10:39 09/15/2024 Measurements Wt: 111.1 kg, Ht/Rafat: 65.0 in, BMI: 40.77 Initial Vital Sign Measured Time BP MAP HR RR O2Sat ETCO2 Temp Pain GCS RTS 09:02 09/15/2024 111/67 82 87 19 98% 97.7 F 9 Time Seen: 09:05 09/15/2024. Arrived- By private vehicle. Historian- patient. HISTORY OF PRESENT ILLNESS Chief Complaint: BACK PAIN. (Low back pain. Present over the past 1 week. Seen and diagnosed with disc herniation. States that now pain radiates into her bilateral groin. Does not have the urge to urinate has to force herself to urinate. Complaining of saddle anesthesia. Denies any fever, chills, fall or trauma. Began after raking leaves with her .). REVIEW OF SYSTEMS : The patient has had difficulty with urination. CONSTITUTIONAL: No fever or chills. Status: Not . PAST HISTORY ADHD - Attention Deficit Hyperactivity Disorder 1 of 5 Narrative Anxiety disorder Bipolar Disorder Gastroparesis Insomnia liver failure Surgeries: Cholecystectomy Tonsillectomy Adenoidectomy Tubal Ligation Medications: albuterol sulfate HFA 90 mcg/actuation aerosol inhaler: 2 puff as needed. baclofen 10 mg tablet: Stopped 09/15/2024. buspirone 10 mg tablet: 1 tablet three times a day. Eliquis 5 mg tablet: 1 tablet twice a day. Emend 80 mg capsule: 1 capsule once a day. folic acid 400 mcg tablet: 1 tablet once a day. furosemide 20 mg tablet: 1 tablet once a day. gabapentin 300 mg capsule: (pt states does not take) hydroxyzine HCl 25 mg tablet: (pt states does not take) meclizine 25 mg tablet: 1 tablet once a day. paliperidone ER 3 mg tablet,extended release 24 hr: 1 tablet once a day. trazodone 50 mg tablet: 1 tablet once a day. Allergies: amoxicillin CT dye Penicillins Sulfa SOCIAL HISTORY No alcohol use or drug use. ADDITIONAL NOTES The nursing notes have been reviewed. 2 of 5 Narrative PHYSICAL EXAM Vital Signs: Have been reviewed. Appearance: Alert. No acute distress. CVS: Heart sounds normal. Pulses normal. Respiratory: No respiratory distress. Abdomen: Soft and nontender. Back: Moderate soft tissue tenderness in the right mid and lower and left mid and lower lumbar area. Skin: Skin warm and dry. Normal skin color. Extremities: Extremities nontender. Neuro: No motor deficit. No sensory deficit. LABS, X-RAYS, AND EKG Diagnostic Study Tests: MR LUMBAR SP WO CONTRAST Final EXAM Date: 09/15/2024 10:30:00 EST MsgRcvd: 09/15/2024 10:34 [place] [address] Patient: BECKI JACKSON Phone#: : 1990 Age: 34 Gender: F Pt. Type: ER Account: [id number] Location: [facility] Ordering: CAMERON AVILEZ Exam Date: 09/15/2024/9:43 Family Phys: KAYLEY DOBSON Charge Code: [id number] Physician: Richardson Order #: [id number] Dose#: PROCEDURE: MRI LUMBAR SPINE WITHOUT CONTRAST COMPARISON: None. INDICATIONS: Low back pain TECHNIQUE: A variety of imaging planes and parameters were utilized for visualization of suspected pathology. FINDINGS: PARASPINAL AREA: Normal with no visible mass. 3 of 5 Narrative BONES: Vertebral bodies are maintained in height and alignment. No fracture or subluxation. Normal marrow signal. CORD/CAUDA EQUINA: Conus terminates at inferior endplate of L1. LUMBAR DISC LEVELS: L1-L2: No significant disc/facet abnormality, spinal stenosis, or foraminal stenosis. L2-L3: No significant disc/facet abnormality, spinal stenosis, or foraminal stenosis. L3-L4: No significant disc/facet abnormality, spinal stenosis, or foraminal stenosis. L4-L5: Disc height loss, disc desiccation and circumferential disc bulge contributes to mild bilateral foraminal narrowing. There is mild to moderate spinal canal narrowing. There is narrowing of the right subarticular zone, disc contacts, but does not definitively compress the L5 nerves in the right subarticular zone. L5-S1: No significant disc/facet abnormality, spinal stenosis, or foraminal stenosis. CONCLUSION: 1. L4-5 disc height loss and circumferential disc bulge with mild bilateral foraminal narrowing. There is narrowing of the right subarticular zone. Dictated by: Heather Ken MD on 09/15/2024 at 10:24 Approved by: Heather Ken MD on 09/15/2024 at 10:30 PROGRESS AND PROCEDURES Differential Diagnosis: I considered Musculo-skeletal strain, disk protrusion, vertebral fracture, epidural abscess and osteomyelitis as a possible cause of back pain in this patient. MEDICAL DECISION MAKING: (Patient appears w (more content not included)... [facility] ED SUPER BILLon 09-15-2024 ED SUPER BILL [address] [address] [phone] 09/15/2024 Patient: BECKI JACKSON Sex: Female : 1990 Age: 34y Facility Professional Category Item Description Code Code Quantity Fee Total Nurse/E/M EMERGENCY 339802 1 $0.00 $0.00 DEPT VISIT HIGH SEVERITYFUNCJ (65950-26) Nurse/IV/IM/Infusions IM/SQ (11086) 912064 1 $0.00 $0.00 Grand $0.00 Total Providers Cameron Avilez D.O. Chief Complaint BACK PAIN. Principal Diagnosis Herniated disc (nontraumatic) at the lower lumbar level with back pain. ICD-10 Codes 1 of 2 [facility] M51.26: Other intervertebral disc displacement, lumbar region 2 of 2 [facility] ED VISIT SUMMARYon ED VISIT SUMMARY Visit Overview Visit Overview [address] [address] [phone] 09/15/2024 Patient: BECKI JACKSON Sex: Female : 1990 Age: 34y 09/15/2024 11:13 AM EST ED Arrival:08:55 09/15/2024 EST Status:not Recent Travel:no Language:eng Adv Directive: Isolation Status: Ethnicity:N Fall Risk:no risk Infectious Disease Exposure:no Measurements:5'5 / 165.1 Self-Harm Status:risk Sepsis Screen:negative cm 245.0 lb / 111.1 kg Chief Complaint:BACK PAIN and (about 1 weeks ago) ALLERGIES amoxicillin CT dye Penicillins Sulfa HOME MEDICATIONS albuterol sulfate HFA 90 mcg/actuation aerosol inhaler: 2 puff as needed. baclofen 10 mg tablet: Stopped 09/15/2024. buspirone 10 mg tablet: 1 tablet three times a day. Eliquis 5 mg tablet: 1 tablet twice a day. 1 of 3 Visit Overview Emend 80 mg capsule: 1 capsule once a day. folic acid 400 mcg tablet: 1 tablet once a day. furosemide 20 mg tablet: 1 tablet once a day. gabapentin 300 mg capsule: (pt states does not take) hydroxyzine HCl 25 mg tablet: (pt states does not take) meclizine 25 mg tablet: 1 tablet once a day. paliperidone ER 3 mg tablet,extended release 24 hr: 1 tablet once a day. trazodone 50 mg tablet: 1 tablet once a day. PAST MEDICAL HISTORY / PROBLEMS ADHD - Attention Deficit Hyperactivity Disorder Anxiety disorder Bipolar Disorder Gastroparesis Insomnia liver failure PAST SURGICAL HISTORY Cholecystectomy Tonsillectomy Adenoidectomy Tubal Ligation SOCIAL HISTORY Smoking status: No Alcohol use: No Drug use: No ED COURSE MEDICATIONS GIVEN IN EMERGENCY DEPARTMENT 09:13 09/15/24 OxyCODONE-APAP 5-325 (Percocet) PO 1 tab 10:06 09/15/24 Ondansetron ODT PO 4 mg 10:07 09/15/24 MORPHine IM 4 mg IV SITE INFORMATION 2 of 3 Visit Overview INTAKE OUTPUT REASSESMENT (most recent) 09:11 09/15/24. GENERAL / NEURO / PSYCH: Alert. Oriented X 4. Appears in pain. RESPIRATORY: Respirations not labored. GI / : No CVA tenderness. BACK: Vertebral point tenderness over the lumbar spine. VITAL SIGNS First Vitals Last Vitals Temp 09:02 09/15/24 97.7 F Temp 11:01 09/15/24 97.7 F BP 09:02 09/15/24 111/67 BP 11:01 09/15/24 110/54 HR 09:02 09/15/24 87 HR 11:01 09/15/24 89 RR 09:02 09/15/24 19 RR 11:01 09/15/24 18 O2 Sat 09:02 09/15/24 98% O2 Sat 11:01 09/15/24 99% Pain 09:02 09/15/24 9 Pain 11:01 09/15/24 9 ETCO2 09:02 09/15/24 ETCO2 11:01 09/15/24 GCS 09:02 09/15/24 GCS 11:01 09/15/24 RTS 09:02 09/15/24 RTS 11:01 09/15/24 PROCEDURES NURSING INTERVENTIONS LABS / STUDIES LABS / STUDIES ORDERED MRI Lumbar Spine wo Cont CLINICAL IMPRESSION HERNIATED DISC (NONTRAUMATIC) AT THE LOWER LUMBAR LEVEL WITH BACK PAIN 3 of 3 [facility] ED VITALS FLOW SHEETon 09-15 ED VITALS FLOW SHEET Vitals Vital Sign Flow Sheet [address] [address] [phone] 09/15/2024 Patient: BECKI JACKSON Sex: Female : 1990 Age: 34y Measurements Wt: 111.1 kg, Ht/Rafat: 65.0 in, BMI: 40.77 Measured Time BP MAP HR RR O2Sat ETCO2 Temp Pain GCS RTS 11:01 09/15/2024 110/54 73 89 18 99% 97.7 F 9 10:01 09/15/2024 10 09:02 09/15/2024 111/67 82 87 19 98% 97.7 F 9 1 of 1 [facility] MR LUMBAR SP WO CONTRASTon 1 11-15-2023 MR LUMBAR SP WO CONTRAST [address] [address] Patient: BECKI JACKSONBette Phone#: : 1990 Age: 34 Gender: F Pt. Type: ER Account: [id number] Location: 052 Ordering: CAMERON AVILEZ Exam Date: 09/15/2024/9:43 Family Phys: KAYLEY DOBSON Charge Code: [id number] Physician: Richardson Order #: [id number] Dose#: PROCEDURE: MRI LUMBAR SPINE WITHOUT CONTRAST COMPARISON: None. INDICATIONS: Low back pain TECHNIQUE: A variety of imaging planes and parameters were utilized for visualization of suspected pathology. FINDINGS: PARASPINAL AREA: Normal with no visible mass. BONES: Vertebral bodies are maintained in height and alignment. No fracture or subluxation. Normal marrow signal. CORD/CAUDA EQUINA: Conus terminates at inferior endplate of L1. LUMBAR DISC LEVELS: L1-L2: No significant disc/facet abnormality, spinal stenosis, or foraminal stenosis. L2-L3: No significant disc/facet abnormality, spinal stenosis, or foraminal stenosis. L3-L4: No significant disc/facet abnormality, spinal stenosis, or foraminal stenosis. L4-L5: Disc height loss, disc desiccation and circumferential disc bulge contributes to mild bilateral foraminal narrowing. There is mild to moderate spinal canal narrowing. There is narrowing of the right subarticular zone, disc contacts, but does not definitively compress the L5 nerves in the right subarticular zone. L5-S1: No significant disc/facet abnormality, spinal stenosis, or foraminal stenosis. CONCLUSION: 1. L4-5 disc height loss and circumferential disc bulge with mild bilateral foraminal narrowing. There is narrowing of the right subarticular zone. Dictated by: Heather Ken MD on 09/15/2024 at 10:24 Approved by: Heather Ken MD on 09/15/2024 at 10:30 [facility] BASIC METABOLIC PANELon 08-25 Anion gap [Moles/Vol] 17 mmol/L Normal 10-20 [facility] Comment on above: Order Comment: [facility] has implemented the eGFR calculation approach that does not have a coefficient for race that conforms to the NKF-ASN Task Force Recommendations. Performed By: #### [id number] #### [address] [address] Les Manley M.D. [id number] Calcium [Mass/Vol] 8.9 mg/dL Normal 8.4-10.2 [facility] Comment on above: Order Comment: [facility] has implemented the eGFR calculation approach that does not have a coefficient for race that conforms to the NKF-ASN Task Force Recommendations. Performed By: #### 4 6124 #### LAB [address] [place], [place] [address] Les Manley M.D. [id number] Chloride [Moles/Vol] 105 mmol/L Normal 98-108 [facility] Comment on above: Order Comment: [facility] has implemented the eGFR calculation approach that does not have a coefficient for race that conforms to the NKF-ASN Task Force Recommendations. Performed By: #### 4 6124 #### [facility] [address] [place], [place] [address] Les Manley M.D. [id number] Creatinine [Mass/Vol] 0.81 mg/dL Normal 0.40-1.10 [facility] Comment on above: Order Comment: [facility] has implemented the eGFR calculation approach that does not have a coefficient for race that conforms to the NKF-ASN Task Force Recommendations. Performed By: #### 4 6124 #### [address] [place], [place] [address] Les Manley M.D. [id number] EGFR 98 mL/min/1.73 m2 Normal >=60 [facility] Comment on above: Order Comment: [facility] has implemented the eGFR calculation approach that does not have a coefficient for race that conforms to the NKF-ASN Task Force Recommendations. Result Comment: Jeremy mated GFR was calculated using the 2020 CKD-EPI creatinine equation. Performed By: #### 4 [id number] #### [facility] [address] [place], [place] [address] Les Manley M.D. [id number] Glucose [Mass/Vol] 89 mg/dL Normal 65-99 [facility] Comment on above: Order Comment: [facility] has implemented the eGFR calculation approach that does not have a coefficient for race that conforms to the NKF-ASN Task Force Recommendations. Performed By: #### 4 [id number] #### [address] [place] [address] Les Manley M.D. [id number] HCO3 (Bld) [Moles/Vol] 24 mmol/L Normal 21-32 [facility] Comment on above: Order Comment: [facility] has implemented the eGFR calculation approach that does not have a coefficient for race that conforms to the NKF-ASN Task Force Recommendations. Performed By: #### 4 6124 #### [address] [place] [address] Les Manley M.D. [id number] Potassium [Moles/Vol] 4.5 mmol/L Normal 3.5-5.1 [facility] Comment on above: Order Comment: [facility] has implemented the eGFR calculation approach that does not have a coefficient for race that conforms to the NKF-ASN Task Force Recommendations. Performed By: #### 4 6124 #### [address] [place] [address] Les Manley M.D. [id number] Sodium [Moles/Vol] 141 mmol/L Normal 135-145 [facility] Comment on above: Order Comment: [facility] has implemented the eGFR calculation approach that does not have a coefficient for race that conforms to the NKF-ASN Task Force Recommendations. Performed By: #### 4 6124 #### [facility] [address] [place] [address] Les Manley M.D. [id number] Urea nitrogen [Mass/Vol] 19 mg/dL Normal 8-25 [facility] Comment on above: Order Comment: [facility] has implemented the eGFR calculation approach that does not have a coefficient for race that conforms to the NKF-ASN Task Force Recommendations. Performed By: #### 4 6124 #### [address] [place] [address] Les Manley M.D. [id number] Urea nitrogen/Creatinine [Mass ratio] 23.5 mg/mg High 10.0-20.0 [facility] Comment on above: Order Comment: [facility] has implemented the eGFR calculation approach that does not have a coefficient for race that conforms to the NKF-ASN Task Force Recommendations. Performed By: #### 4 [id number] #### LAB [address] [place] [address] Les Manley M.D. [id number] CBC WITH AUTO DIFFERENTIALon 09-04-2024 AUTO NRBC 0.0 % [facility] Comment on above: Performed By: #### L [id number] #### LAB [address] [place] [address] Les Manley M.D. [id number] AUTO NRBC ABS COUNT 0.00 K/mcL Normal 0.00-0.00 [facility] Comment on above: Performed By: #### L [id number] #### LAB [address] [place] [address] Les Manley M.D. [id number] BASOPHILS ABSOLUTE COUNT 0.07 K/mcL Normal 0.00-0.30 [facility] Comment on above: Performed By: #### L [id number] #### LAB [address] [place] [address] Les Manley M.D. [id number] Basophils/100 WBC (Bld) 0.9 % Normal [facility] Comment on above: Performed By: #### L [id number] #### LAB [address] [place] [address] Les Manley M.D. [id number] Eosinophils (Bld) [#/Vol] 0.16 10*3/uL Normal 0.00-0.50 [facility] Comment on above: Performed By: #### L [id number] #### LAB [address] [place] [address] Les Manley M.D. [id number] Eosinophils/100 WBC (Bld) 2.2 % [facility] Comment on above: Performed By: #### L [id number] #### LAB [address] [place] [address] Les Manley M.D. [id number] Erythrocyte distribution width (RBC) [Ratio] 13.7 % Normal 11.6-14.8 [facility] Comment on above: Performed By: #### L [id number] #### [address] [place] [address] Les Manley M.D. [id number] Hematocrit (Bld) [Volume fraction] 39.2 % Normal 36.0-46.0 [facility] Comment on above: Performed By: #### L [id number] #### LAB [address] [place] [address] Les Manley M.D. [id number] Hemoglobin (Bld) [Mass/Vol] 13.0 g/dL Normal 12.0-16.0 [facility] Comment on above: Performed By: #### L [id number] #### LAB [address] [place] [address] Les Manley M.D. [id number] IG ABSOLUTE 0.04 K/mcL Normal 0.00-0.30 [facility] Comment on above: Performed By: #### L [id number] #### LAB [address] [place] [address] Les Manley M.D. [id number] IG PERCENT 0.50 % Normal [facility] Comment on above: Result Comment: The IG parameter is the percentage of metamyelocytes, myelocytes and promyelocytes. An immature granulocyte count (IG) of 1% or more suggests the possibility of infection, an IG count of 3% is very likely related to an infection. Performed By: #### L [id number] #### LAB [address] [place] [address] Les Manley M.D. [id number] Lymphocytes (Bld) [#/Vol] 2.16 10*3/uL Normal 0.90-4.00 [facility] Comment on above: Performed By: #### L [id number] #### LAB [address] [place], [place] [address] Les Manley M.D. [id number] Lymphocytes/100 WBC (Bld) 29.3 % Normal [facility] Comment on above: Performed By: #### L [id number] #### LAB [address] [place] [address] Les Manley M.D. [id number] MCH (RBC) [Entitic mass] 29.7 pg Normal 26.0-34.0 [facility] Comment on above: Performed By: #### L [id number] #### LAB [address] [place] [address] Les Manley M.D. [id number] MCV (RBC) [Entitic vol] 89.5 fL Normal 80.0-100.0 [facility] Comment on above: Performed By: #### L [id number] #### LAB [address] [place] [address] Les Manley M.D. [id number] MEAN CORPUSCULAR HEMOGLOBIN CONC 33.2 g/dL Normal 31.0-37.0 [facility] Comment on above: Performed By: #### L [id number] #### LAB [address] [place] [address] Les Manley M.D. [id number] Monocytes (Bld) [#/Vol] 0.54 10*3/uL Normal 0.30-0.90 [facility] Comment on above: Performed By: #### L [id number] #### LAB [address] [place] [address] Les Manley M.D. [id number] Monocytes/100 WBC (Bld) 7.3 % Normal [facility] Comment on above: Performed By: #### L [id number] #### [address] [place] [address] Les Manley M.D. [id number] NEUTROPHILS ABSOLUTE COUNT 4.41 K/mcL Normal 1.70-7.00 [facility] Comment on above: Performed By: #### L [id number] #### LAB [address] [place] [id number] Les Manley M.D. [id number] Neutrophils/100 WBC (Bld) 59.8 % Normal [facility] Comment on above: Performed By: #### L [id number] #### LAB [address] [place] [address] Les Manley M.D. [id number] Platelet mean volume (Bld) [Entitic vol] 9.3 fL Low 9.4-12.4 [facility] Comment on above: Performed By: #### L [id number] #### LAB [address] [place] [address] Les Manley M.D. [id number] Platelets (Bld) [#/Vol] 324 10*3/uL Normal 150-400 [facility] Comment on above: Performed By: #### L [id number] #### [facility] [address] [place] [address] Les Manley M.D. [id number] RBC (Bld) [#/Vol] 4.38 10*6/uL Normal 4.00-5.20 [facility] Comment on above: Performed By: #### L [id number] #### LAB [address] [place] [address] Les Manley M.D. [id number] WBC (Bld) [#/Vol] 7.38 10*3/uL Normal 4.50-11.00 [facility] Comment on above: Performed By: #### L [id number] #### LAB [address] [place] [address] Les Manley M.D. [id number] CT LUMBAR SPINE WITHOUT CONT [facility] 09-04-2024 CT LUMBAR SPINE WITHOUT CONTRAST EXAMINATION: CT LUMBAR SPINE WITHOUT CONTRAST HISTORY: ORDERING SYSTEM PROVIDED HISTORY: Low back pain, severe, TECHNOLOGIST PROVIDED HISTORY: Illness/Other Reason for exam: Low back pain, severe Encounter Type: Initial Additional signs and symptoms: . ORDERING SYSTEM PROVIDED DIAGNOSIS CODES: COMPARISON: None. TECHNIQUE: Multiple contiguous axial CT images were obtained through the lumbar spine without intravenous contrast. Coronal and sagittal reformatted images were also obtained. Dose reduction techniques were achieved by using automated exposure control and/or adjustment of mA and/or kV according to patient size and/or use of iterative reconstruction technique. FINDINGS: Straightening of the lumbar spine. Vertebral bodies are anatomically aligned. Vertebral body heights are preserved. There is no evidence for acute fracture. There is no evidence for acute subluxation. Moderate disc space narrowing at L4-L5. L5-S1: Disc bulge and moderate bilateral facet arthropathy without spinal canal or foraminal stenosis. L4-L5: Broad-based disc protrusion with an annular fissure. Moderate facet arthropathy and ligamentum flavum hypertrophy. Moderate spinal canal and bilateral lateral recess stenosis. [id number]-[id number] bilateral foraminal stenosis. L3-L4: Disc bulge and moderate facet arthropathy without spinal canal or foraminal stenosis. T12-L1 through L2-L3: No disc herniations. No spinal canal or significant neural foraminal stenosis. IMPRESSION: 1. No compression fracture or subluxation in the lumbar spine. 2. There is [id number] disc space narrowing at L4-L5 compatible with disc degeneration. There is moderate spinal canal and bilateral lateral recess stenosis and [id number] bilateral foraminal stenosis. This is secondary to broad-based disc protrusion, facet arthropathy, ligamentum flavum hypertrophy. [employer] Workstation ID: [id number] Dictated by: EDILSON OROZCO on WedSep 04, 2024 11:05:35 PM EST Transcribed by: JASWANT KAUR on WedSep 04, 2024 11:08:30 PM EST Finalized by: EDILSON OROZCO on WedSep 05, 2024 12:46:24 AM EST [facility] Comment on above: Order Comment: Injur y/Trauma or Illness?:Illness/Other How long have you had these symptoms (acute/chronic)?:Acute Reason for exam?:Low back pain, severe Type of Exam?:Initial Additional signs and symptoms?:. ED Prov Noteon 09-04-2024 ED Prov Note [facility] EMERGENCY DEPARTMENT JOE NOTE: NAME: Becki Jackson CSN: [id number] 34 y.o. PCP: María Hernandez MD History: Chief Complaint: Low Back Pain HPI: The history was obtained from the patient. Becki is a 34 y.o. female who presents with a chief complaint of Low Back Pain. Patient reports low back pain that began yesterday after raking leaves other . She advises the pain is gotten progressively worse making it very difficult for her to walk. Currently her pain is rated 10 out of 10. She did take some Tylenol around 5 PM today. She advises this is not helping her pain. Patient does feel slightly nauseated. She did advise of numbness and tingling to bilateral lower extremities. She denies saddle anesthesia. She denies loss of bowel or bladder. She denies fevers. She does have a history of bipolar, DVT, gastroparesis. PMHx: Past Medical History: Diagnosis Date Bipolar 1 disorder (HCC) DVT of axillary vein, acute left (HCC) Gastroparesis PMSx: Past Surgical History: Procedure Laterality Date CHOLECYSTECTOMY ORTHOPEDIC SURGERY TONSILLECTOMY TUBAL LIGATION FAM. Hx: History reviewed. No pertinent family history. SOC. Hx: Social History Socioeconomic History Marital status: Tobacco Use Smoking status: Former Types: Cigarettes Start date: 2017 Smokeless tobacco: Former Types: Chew Vaping Use Vaping status: Every Day Substances: Nicotine, Flavoring Substance and Sexual Activity Alcohol use: Never Drug use: Never Social Drivers of Health Financial Resource Strain: Medium Risk (08/03/2024) Received from [facility] Overall Financial Resource Strain (CARDIA) Difficulty of Paying Living Expenses: Somewhat hard Food Insecurity: No Food Insecurity (08/03/2024) Received from [facility] Hunger Vital Sign Worried About Running Out of Food in the Last Year: Never true Ran Out of Food in the Last Year: Never true Transportation Needs: No Transportation Needs (08/03/2024) Received from [facility] PRAPARE - Transportation Lack of Transportation (Medical): No Lack of Transportation (Non-Medical): No Housing Stability: Low Risk (08/03/2024) Received from [facility] Housing Stability Vital Sign Unable to Pay for Housing in the Last Year: No Number of Times Moved in the Last Year: 1 Homeless in the Last Year: No MEDs: Previous Medications Medication Sig apixaban 5 mg Tab Take 1 (one) tablet (5 mg total) by mouth 2 (two) times a day . busPIRone (BUSPAR) 10 MG tablet Take 1 (one) tablet (10 mg total) by mouth 3 (three) times a day . paliperidone (INVEGA) 3 MG 24 hr tablet Take 1 (one) tablet (3 mg total) by mouth daily . traZODone (DESYREL) 50 MG tablet Take 1 (one) tablet to 2 (two) tablets (50-100 mg total) by mouth at bedtime . gabapentin (NEURONTIN) 300 MG capsule Take 1 (one) capsule (300 mg total) by mouth 3 (three) times a day . metoclopramide (REGLAN) 10 MG tablet Take 1 (one) tablet (10 mg total) by mouth 4 (four) times a day with meals and nightly for 4 days . traMADol (ULTRAM) 50 mg tablet Take 1 (one) tablet (50 mg total) by mouth every 6 (six) hours as needed . ALL: Allergies Allergen Reactions Amoxil [Amoxicillin] Iodine And Iodide Containing Products GI Intolerance Penicillins Sulfa (Sulfonamide Antibiotics) ROS: Review of Systems All other systems reviewed and are negative. Positives and pertinent negatives as per HPI. All other systems were reviewed and are negative. Physical Exam: Patient Vitals for the past 24 hrs: BP Temp Temp src Pulse Resp SpO2 09/04/24 2300 108/82 -- -- 81 -- 99 % 09/04/24 2232 -- -- -- -- 16 -- 09/04/24 2111 118/79 98.6 degrees F (37 degrees C) Oral 90 16 97 % Physical Exam Vitals and nursing note reviewed. Constitutional: General: She is awake. HENT: Head: Normocephalic and atraumatic. Right Ear: External ear normal. Left Ear: External ear normal. Nose: Nose normal. Mouth/Throat: Mouth: Mucous membranes are moist. Pharynx: Oropharynx is clear. Eyes: General: Lids are normal. No scleral icterus. Extraocular Movements: Extraocular movements intact. Pupils: Pupils are equal, round, and reactive to light. Cardiovascular: Rate and Rhythm: Normal rate and regular rhythm. Heart sounds: Normal heart sounds. No murmur heard. Musculoskeletal: Cervical back: Normal. Thoracic back: Normal. Lumbar back: Tenderness present. Positive right straight leg raise test and positive left straight leg raise test. Comments: Positive straight leg raise bilaterally around 20 degrees. Pulmonary: Effort: Pulmonary effort is normal. No tachypnea or respiratory distress. Breath sounds: No wheezing. Skin: General: Skin is warm and dry. Capillary Refill: Capillary refill takes less than (more content not included)... [facility] ED MED ADMINISTRATION DETAIL on 09-03-2024 ED MED ADMINISTRATION DETAIL Lead Game Designer Medication Administration Record [address] [place] [address] [id number] 09/02/2024 Patient: BECKI JACKSON Sex: Female : 1990 Age: 34y MEASUREMENTS: Wt: 109.8 kg, Ht/Rafat: 65.0 in, BMI: 40.27 ALLERGIES: CT dye, Penicillins, Sulfa, amoxicillin Medication Ordered Medication Administration Date/Time Benadryl IVP 50 mg 20:17 09/02 Benadryl IVP 50 mg given via Site# 1. Allergies Given (NOW x1) verified and confirmed 5 rights. IV patency established. IV site 20:17 09/02/2024 checked: no pain, redness, or swelling. IV flushed thoroughly Teddy Chu pre-medication administration. IVP given by EMT-P. Information E.M.T.-P. reviewed with patient. Verbalizes understanding. Vitals: 20:10 Scanned 09/02/2024 BP: 123/80 MAP: 94 mmHg. HR: 87 bpm. - 20:17 Adryan HartleyM.T.-P. MethylPREDNISolo 20:16 11 MethylPREDNISolone Sodium Succ (Solu-Medrol) IVP Given ne Sodium Succ 125 mg given via Site# 1. Allergies verified and confirmed 5 rights. 20:16 09/02/2024 (Solu-Medrol) IVP IV patency established. IV site checked: no pain, redness, or Teddy Chu 125 mg (NOW x1) swelling. IV flushed thoroughly pre-medication administration. IVP E.M.T.-P. given by EMT-P. Information reviewed with patient. Verbalizes Scanned understanding. Vitals: 20:10 09/02/2024 BP: 123/80 MAP: 94 mmHg. HR: 87 bpm. - 20:16 Teddy Chu E.M.T.-P. 1 of 2 Lead Game Designer Medication Ordered Medication Administration Date/Time IV NS 0.9 % 1000 21:24 09/02 IV NS 0.9 % 1000 mL started in bag#1 1000 mL at Started mL at 999 mL/hr 999 mL/hr via Site# 1. Allergies verified and confirmed 5 rights. IV 21:24 09/02/2024 (NOW x1) patency established. IV site checked: no pain, redness, or swelling. Araseli Harrison IV flushed thoroughly pre-medication administration. Information R.NBette reviewed with patient including reason for taking this medication, Stopped signs of allergic reaction and precautions. Verbalizes 23:59 09/02/2024 understanding. - 21: Angelita Dangelo R.N. Scanned 23:59 09/02 Medication Discontinued: bag #1 infused upon discharge. Total amount infused: 1000 mL. IV patency established. IV site checked: no pain, redness, or swelling. IV flushed thoroughly post-medication administration. - 00:11 Luis Collins R.N. KetorOLAC 21:09/02 KetorOLAC (Toradol) IVP 15 mg given via Site# 1. Given (Toradol) IVP 15 mg Allergies verified and confirmed 5 rights. IV patency established. IV 21:09/02/2024 (NOW x1) site checked: no pain, redness, or swelling. IV flushed thoroughly Araseli Harrison pre-medication administration. IVP given by nurse. Information R.N. reviewed with patient including reason for taking this medication, Scanned signs of allergic reaction and precautions. Verbalizes understanding. Medication Wastage: 15 mg wasted. - : Araseli Harrison R.N. Zofran IVP 4 mg 21:09/02 Zofran IVP 4 mg given via Site# 1. Allergies verified Given (NOW x1) and confirmed 5 rights. IV patency established. IV site checked: no 21:09/02/2024 pain, redness, or swelling. IV flushed thoroughly pre-medication Araseli Harrison administration. IVP given by nurse. Information reviewed with R.N. patient including reason for taking this medication, signs of allergic Scanned reaction and precautions. Verbalizes understanding. - 21:28 Araseli Harrison R.N. 2 of 2 [facility] ED NURSES CLINICAL NOTEon ED NURSES CLINICAL NOTE Nurse Narrative Nurse Clinical Narrative [facility] [address] [place] [address] [id number] 09/02/2024 Patient: BECKI JACKSON Sex: Female : 1990 Age: 34y Disposition: Discharge to Home Disposition Decision Time: 22:55 09/02/2024 Departure Time: 23:59 09/02/2024 TRIAGE Arrived by private vehicle. Historian: patient. Accompanied by family. Primary physician (Dr Hernandez). Triage time: 18:46 09/02/2024. Acuity: LEVEL 3. Chief Complaint: (Left Flank Pain). Alert. No acute distress. This started today. Onset. (1 hours). ( Sudden onset of left flank pain that started an hour ago. Patient reports that the pain radiates into her chest). The patient has had nausea. SEPSIS SCREEN: NEGATIVE. SIRS criteria negative. No possible sources of infection. -- 18:53 09/02/24 KARISSA Reece R.N. 18:51 09/02/24. BP: 163/54 MAP: 90. HR: 113. RR: 22. O2 saturation: 99% Temperature: 98.8 F. Pain level now 10/10. -- 18:52 09/02/24 KARISSA Reece R.N. Measurements: 18:53 09/02/24 Wt: 109.8 kg, Ht/Rafat: 65.0 in, BMI: 40.27 -- 18:53 09/02/24 KARISSA Reece R.N. Medications: baclofen 10 mg tablet -- 18:56 09/02/24 KARISSA Reece R.N. buspirone 10 mg tablet -- 18:56 09/02/24 KARISSA Reece R.N. 1 of 5 Nurse Narrative gabapentin 300 mg capsule -- 18:56 09/02/24 KARISSA Reece R.N. hydroxyzine HCl 25 mg tablet -- 18:56 09/02/24 KARISSA Reece R.N. albuterol sulfate HFA 90 mcg/actuation aerosol inhaler -- 18:56 09/02/24 KARISSA Reece R.N. trazodone 50 mg tablet -- 18:56 09/02/24 KARISSA Reece R.N. furosemide 20 mg tablet -- 18:56 09/02/24 KARISSA Reece R.N. folic acid 400 mcg tablet -- 18:56 09/02/24 KARISSA Reece R.N. meclizine 25 mg tablet -- 18:56 09/02/24 KARISSA Reece R.N. Emend 80 mg capsule -- 18:56 09/02/24 KARISSA Reece R.N. paliperidone ER 3 mg tablet,extended release 24 hr -- 18:56 09/02/24 KARISSA Reece R.N. Eliquis 5 mg tablet -- 18:56 09/02/24 KARISSA Reece R.N. ondansetron 4 mg disintegrating tablet -- 18:56 09/02/24 KARISSA Reece R.N.Updated through eRx -- 22:52 09/02/24 KARISSA Duval D.O. ondansetron 4 mg disintegrating tablet: Stopped 09/02/2024. -- 22:52 09/02/24 KARISSA Duval D.O. Allergies: amoxicillin -- 18:48 09/02/24 KARISSA Reece R.N. Penicillins -- 18:48 09/02/24 KARISSA Reece R.N. Sulfa -- 18:48 09/02/[address] dye -- 18:48 09/02/24 KARISSA Reece R.N. Problems: Insomnia -- 18:57 09/02/24 KARISSA Reece R.N. Bipolar Disorder -- 18:57 09/02/24 KARISSA Reece R.N. Gastroparesis -- 18:58 09/02/24 KARISSA Reece R.N. ADDITIONAL SURGERIES: Tonsillectomy Adenoidectomy -- 18:50 09/02/24 KARISSA Reece R.N. Cholecystectomy -- 18:50 09/02/24 KARISSA Reece R.N. Tubal Ligation -- 18:50 09/02/24 KARISSA Reece R.N. History 18:46 09/02/24. SOCIAL HX: Regular vaping using vape. No alcohol use or drug use. The patient has not traveled outside the [place] Infectious disease exposure: No infectious disease exposure. 2 of 5 Nurse Narrative ABUSE ASSESSMENT: The patient answered yes to the question(s) Do you feel safe in your home? and no to the question(s) Are you afraid to go home?, Are you afraid of your partner or someone close to you?, Has your partner or someone close to you emotionally, physically, or sexually assaulted you?, Has your partner or someone close to you threatened to harm/ kill you?, Did your partner or someone close to you cause the presenting injury(s)?, Has your partner or someone close to you ever used a weapon towards you?, Have children witnessed violence in the home? and Has your partner or someone close to you physically abused children?. Abuse denied. No report of abuse. SELF HARM ASSESSMENT: Self harm assessment was performed. The patient answered no to the question(s) Have you recently felt down, depressed, or hopeless?, Do you have thoughts of harming or killing yourself?, Do you have a plan for harming or killing yourself?, Have you recently had thoughts about harming or killing others?, Do you have any dangerous items in your possession?, Have you noticed less interest or pleasure in doing things?, Are you here because you tried to hurt yourself? and Have you ever tried to hurt yourself before today?. NUTRITIONAL RISK ASSESSMENT: The nutritional risk assessment revealed no deficiencies. FUNCTIONAL ASSESSMENT: Functional assessment: no impairments noted. LEARNING NEEDS ASSESSMENT: The learning needs assessment revealed no barriers. FALL RISK ASSESSMENT: Fall risk assessment completed. No risk factors identified. SKIN INTEGRITY ASSESSMENT: Skin integrity risk assessment completed. No skin integrity risk identified. -- 18:53 09/02/24 KARISSA Reece R.N. Assessment 18:46 (more content not included)... [facility] ED ORDER SHEET (CPOE ONLY)on 09-03-2024 ED ORDER SHEET (CPOE ONLY) Order Sheet Order Sheet [place] [address] [place] [address] [id number] 09/02/2024 Patient: BECKI JACKSON Sex: Female : 1990 Age: 34y MEASUREMENTS: Wt: 109.8 kg, Ht/Rafat: 65.0 in, BMI: 40.27 ALLERGIES: CT dye, Penicillins, Sulfa, amoxicillin MEDICATION/IV/DRIP/FL UID ORDERS Order Description Priority Entered Acknowledged Completed Benadryl IVP50 mg (NOW x1) 20:01 09/02/2024 20:10 20:17 Rudi Duval D.O. 09/02/2024 09/02/2024 Teddy Hartley, Ness-P. E.M.T.-P. MethylPREDNISolone Sodium 20:01 09/02/2024 20:10 20:16 Succ (Solu-Medrol) [id number] mg Rudi Duval D.O. 09/02/2024 09/02/2024 (NOW x1) Teddy Hartley E.M.T.-P. E.M.T.-P. Reason for ordering with alerts: Clinical consideration given --20:01 09/02/2024 Rudi Duval D.O. Benadryl IVP50 mg (NOW x1) 20:02 09/02/2024 Cancelled: Wrong Order Rudi Duval D.O. 20:14 EST Rudi Duval D.O. Reason for ordering with alerts: Clinical consideration given --20:02 09/02/2024 Rudi Duval D.O. MethylPREDNISolone Sodium 20:03 09/02/2024 Cancelled: Wrong Order Succ (Solu-Medrol) [id number] mg Rudi Duval D.O. 20:14 EST Rudi Duval D.O. 1 of 4 Order Sheet (NOW x1) Reason for ordering with alerts: Clinical consideration given --20:03 09/02/2024 Rudi Duval D.O. IV NS 0.9 %1000 mL at 999 20:41 09/02/2024 20:42 21:25 mL/hr (NOW x1) Rudi Duval D.O. 09/02/2024 09/02/2024 Angelita Mckee R.N. KetorOLAC (Toradol) IVP15 mg 21:10 09/02/2024 21:18 21:27 (NOW x1) Rudi Duval D.O. 09/02/2024 09/02/2024 Angelita Mckee R.N. Reason for ordering with alerts: Clinical consideration given --21:10 09/02/2024 Rudi Duval D.O. Zofran IVP4 mg (NOW x1) 21:11 09/02/2024 21:18 21:28 Rudi Duval D.O. 09/02/2024 09/02/2024 Angelita Mckee R.N. Reason for ordering with alerts: Clinical consideration given --21:11 09/02/2024 Rudi Duval D.O. LAB ORDERS Order Description Priority Entered Acknowledged Collected Completed CBC w Diff Stat Stat 20:41 09/02/2024 20:42 09/02/2024 21:36 09/02/2024 Martha Almaraz R.N. [place], R.N. CMP Stat Stat 20:41 09/02/2024 20:42 09/02/2024 21:36 09/02/2024 Martha Almaraz R.N. [place], R.N. Troponin-I Stat Stat 20:41 09/02/2024 20:42 09/02/2024 21:37 09/02/2024 Martha Almaraz R.N. [place], R.N. EKG - ED Stat Stat 20:41 09/02/2024 20:42 09/02/2024 21:36 09/02/2024 2 of 4 Order Sheet Martha Almaraz R.N. [place], R.N. Lactate, Serum Stat Stat 20:41 09/02/2024 20:42 09/02/2024 Martha Almaraz R.N. Urinalysis Stat Stat 20:41 09/02/2024 20:42 09/02/2024 21:37 09/02/2024 Martha Almaraz R.N. [place], R.N. Lipase Stat Stat 22:48 09/02/2024 22:50 09/02/2024 Martha Almaraz R.N. DIAGNOSTIC STUDY ORDERS Order Description Priority Entered Acknowledged Completed CT Chest/Abd/Pelvis w Cont Stat 21:12 09/02/2024 21:34 Stat Rudi Duval D.O. 09/02/2024 Araseli Harrison R.N. Order Comments: 21:12 09/02/2024: Status: Not . Rudi Duval D.O. Reason for Study: Abdominal Pain STAFF ORDERS Order Description Priority Entered Acknowledged Collected Completed IV Saline Lock 20:41 09/02/2024 20:42 09/02/2024 21:37 09/02/2024 Martha Almaraz R.N. [place], R.N. Vital Signs every 30 20:41 09/02/2024 20:42 09/02/2024 21:37 09/02/2024 minutes Martha Almaraz R.N. [place], R.N. Environmental Journalist 20:41 09/02/2024 20:42 09/02/2024 21:37 09/02/2024 Martha Almaraz R.N. [place], R.N. 3 of 4 Order Sheet Oxygen titrate to 92% 20:41 09/02/2024 20:42 09/02/2024 21:37 09/02/2024 Martha Almaraz R.N. [place], R.N. [Electronically signed by Rudi Duval D.O. (09/03/2024 02:23 EST)] 4 of 4 [facility] ED PHYSICIAN CLINICAL REPORT on 09-03-2024 ED PHYSICIAN CLINICAL REPORT Narrative Physician Clinical Narrative [facility] [address] [place] [address] [id number] 09/02/2024 Patient: BECKI JACKSON Sex: Female : 1990 Age: 34y Disposition: Discharge to Home Disposition Decision Time: 22:55 09/02/2024 Departure Time: 23:59 09/02/2024 Measurements Wt: 109.8 kg, Ht/Rafat: 65.0 in, BMI: 40.27 Initial Vital Sign Measured Time BP MAP HR RR O2Sat ETCO2 Temp Pain GCS RTS 18:51 09/02/2024 163/54 90 113 22 99% 98.8 F 10 Time Seen: 19:31 09/02/2024. Arrived- By private vehicle. Historian- patient. HISTORY OF PRESENT ILLNESS Chief Complaint: ABDOMINAL PAIN and FLANK PAIN. It is described as sharp and it is described as radiating to the low back. This started yesterday and is still present (worse). At its maximum, severity described as 10 / 10. When seen in the E.D., severity described as 10 / 10. Modifying factors- worsened by movement. Not relieved by anything. The patient has had nausea. No loss of appetite, vomiting or diarrhea. No recent travel. Similar symptoms previously. Patient has had similar symptoms several times. ( Is presently being treated for a DVT in her left arm. She sees a track mechanic at [place] for this.). Recent medical care: Not recently seen/assessed. 1 of 12 Narrative REVIEW OF SYSTEMS CONSTITUTIONAL: No fever or chills. The patient has not had weight loss. NEUROLOGICAL: No headache. EYES: No blurred vision. : No difficulty with urination, pain with urination or urinary frequency. CVS: The patient has had chest pain. RESPIRATORY: The patient has had difficulty breathing. MUSCULOSKELETAL: No joint pain. The patient has had back pain. SKIN: No skin rash. THROAT: No sore throat. GI: No constipation or black stools. Status: Not . PAST HISTORY See nurses notes. Deep venous thrombosis (on eliquis). Bipolar disorder. Bipolar Disorder Gastroparesis Insomnia Surgeries: Cholecystectomy Tonsillectomy Adenoidectomy Tubal Ligation Medications: albuterol sulfate HFA 90 mcg/actuation aerosol inhaler baclofen 10 mg tablet buspirone 10 mg tablet Eliquis 5 mg tablet Emend 80 mg capsule folic acid 400 mcg tablet furosemide 20 mg tablet gabapentin 300 mg capsule hydroxyzine HCl 25 mg tablet meclizine 25 mg tablet ondansetron 4 mg disintegrating tablet: Stopped 09/02/2024. paliperidone ER 3 mg tablet,extended release 24 hr trazodone 50 mg tablet Allergies: 2 of [address] dye Penicillins Sulfa SOCIAL HISTORY Smoker- current status unknown. Regular vaping. No alcohol use or drug use. ADDITIONAL NOTES The nursing notes have been reviewed. PHYSICAL EXAM Appearance: Alert. Oriented X3. Anxious. Patient in moderate distress. Eyes: Pupils equal, round and reactive to light. ENT: Nose normal. Pharynx normal. Neck: Normal inspection. Neck supple. CVS: Normal heart rate and rhythm. Heart sounds normal. Pulses normal. Respiratory: No respiratory distress. Breath sounds normal. Chest nontender. Abdomen: Soft. Moderate tenderness in the right lower quadrant with guarding present. No rebound tenderness. Abnormal bowel sounds: hyperactive. No organomegaly. No mass. Back: Moderate CVA tenderness on the right and left. Skin: Skin warm and dry. Normal skin color. No rash. Normal skin turgor. Extremities: Extremities exhibit normal ROM. No lower extremity edema. Neuro: Oriented X 3. No motor deficit. No sensory deficit. LABS, X-RAYS, AND EKG 12-LEAD EKG: EKG time: 19:47 09/02/2024. Normal sinus rhythm. Rate: 100. Normal P waves. Normal QRS complex. Normal ST and T waves. The study has been interpreted contemporaneously by me. Interpretation time: 19:48 09/02/2024. Laboratory Tests: CBC + DIFF Final 3 of 12 Narrative DANETTE: 09/02/2024 20:03:00 EST MsgRcvd: 09/02/2024 21:19 EST Lab Test Result Reference Status Received Comments 09/02/2024 21:19 CBC-COMPLETE CBC + DIFF Final EST BLOOD COUNT 09/02/2024 21:19 WBC 9.1 x 10/UL 4.5 - 10.8 Final EST 09/02/2024 21:19 RBC 4.88 x 10/UL 4.10 - 5.30 Final EST 09/02/2024 21:19 HEMOGLOBIN 14.6 g/dl 12.0 - 16.0 Final EST 09/02/2024 21:19 HEMATOCRIT 42.8 % 34.0 - 46.0 Final EST 09/02/2024 21:19 MCV 88 fl 80 - 99 Final EST 09/02/2024 21:19 MCH 30 pg 27 - 33 Final EST 09/02/2024 21:19 MCHC 34 X10 3 32 - 36 Final EST 09/02/2024 21:19 RDW/CV 13.9 % 12.0 - 15.6 Final EST 09/02/2024 21:19 PLATELET 375 x10/UL 150 - 450 Final EST 09/02/2024 21:19 AUTOMATED MPV 7.1 fl 6.6 - 10.5 Final EST DIFFERENTIAL 09/02/2024 21:19 NEUT % 72.1 % 46.0 - 76.0 Final EST 18.4 % 09/02/2024 21:19 LYMPH % 20.0 - 45.0 Final Below low normal EST 4 of 12 Narrative 09/02/2024 21:19 MONOS % 7.5 % 0.0 - 10.0 Final (more content not included)... [facility] ED [facility] BILLon 09-03-2024 ED [facility] [address] [place] [address] [id number] 09/02/2024 Patient: BECKI JACKSON Sex: Female : 1990 Age: 34y Item Facility Professional Category Description Code Code Quantity Fee Total Nurse/E/M EMERGENCY 230617 1 $0.00 $0.00 DEPARTMENT VISIT HIGH/URGENT SEVERITY (28030-04) Nurse/IV/IM/Infusions Hydration 845597 3 $0.00 $0.00 additional hour (60202) Nurse/IV/IM/Infusions IVP additional 064015 3 $0.00 $0.00 push (10773) Nurse/IV/IM/Infusions IVP initial [id number] 1 $0.00 $0.00 (98127) Grand Total $0.00 Providers Rudi Duval D.O. Chief Complaint 1 of 2 Superbill ABDOMINAL PAIN and FLANK PAIN. Principal Diagnosis Acute generalized abdominal pain of undetermined cause. ICD-10 Codes R10.84: Generalized abdominal pain 2 of 2 [facility] ED VISIT SUMMARYon ED VISIT SUMMARY Visit Overview Visit Overview [place] [address] [facility] [place] [address] [id number] 09/02/2024 Patient: BECKI JACKSON Sex: Female : 1990 Age: 34y 09/03/2024 06:43 AM EST ED Arrival:18:43 09/02/2024 EST Status:not Recent Travel:no Language:eng Adv Directive: Isolation Status: Ethnicity:N Fall Risk:no risk Infectious Disease Exposure:no Measurements:5'5 / 165.1 Self-Harm Status:risk Sepsis Screen:negative cm 242.0 lb / 109.8 kg Chief Complaint:(1 hours), (Dr Hernandez), (Left Flank Pain), and (Sudden onset of left flank pain that started an hour ago. Patient reports that the pain radiates into her chest) ALLERGIES amoxicillin CT dye Penicillins Sulfa HOME MEDICATIONS Visit Overview albuterol sulfate HFA 90 mcg/actuation aerosol inhaler baclofen 10 mg tablet buspirone 10 mg tablet Eliquis 5 mg tablet Emend 80 mg capsule folic acid 400 mcg tablet furosemide 20 mg tablet gabapentin 300 mg capsule hydroxyzine HCl 25 mg tablet meclizine 25 mg tablet ondansetron 4 mg disintegrating tablet: Stopped 09/02/2024. paliperidone ER 3 mg tablet,extended release 24 hr trazodone 50 mg tablet PAST MEDICAL HISTORY / PROBLEMS Bipolar disorder Deep venous thrombosis (on eliquis) Gastroparesis Insomnia See nurses notes PAST SURGICAL HISTORY Cholecystectomy Tonsillectomy Adenoidectomy Tubal Ligation SOCIAL HISTORY Nutritional assessment: No deficits Functional assessment: No impairments Learning needs: No barriers Smoking status: Unknown Alcohol use: No Drug use: No ED COURSE 2 of 4 Visit Overview MEDICATIONS GIVEN IN EMERGENCY DEPARTMENT 20:16 09/02/24 MethylPREDNISolone Sodium Succ (Solu-Medrol) IVP 125 mg 20:17 09/02/24 Benadryl IVP 50 mg 21:24 09/02/24 IV NS 0.9 % 1000 mL 999 mL/hr 21:25 09/02/24 KetorOLAC (Toradol) IVP 15 mg 21:27 09/02/24 Zofran IVP 4 mg IV SITE INFORMATION INTAKE OUTPUT REASSESMENT (most recent) 20:30 09/02/24. To room via wheelchair. ( Pt c/o flank pain on right and left sides that radiates to the mid abdomen.). GENERAL / NEURO / PSYCH: Alert. Oriented X 4. Appears in pain. HEENT: Mucous membranes are pink. RESPIRATORY: Respirations not labored. Breath sounds within normal limits. CVS: Normal sinus rhythm noted. Capillary refill less than 2 seconds. GI / : Abdomen soft. Abdominal tenderness. Bowel sounds within normal limits. Stool color normal. SKIN: Skin is warm and dry. VITAL SIGNS First Vitals Last Vitals Temp 18:51 09/02/24 98.8 F Temp 23:59 09/02/24 BP 18:51 09/02/24 163/54 BP 23:59 09/02/24 130/65 HR 18:51 09/02/24 113 HR 23:59 09/02/24 90 RR 18:51 09/02/24 22 RR 23:59 09/02/24 18 O2 Sat 18:51 09/02/24 99% O2 Sat 23:59 09/02/24 94% Pain 18:51 09/02/24 10 Pain 23:59 09/02/24 10 ETCO2 18:51 09/02/24 ETCO2 23:59 09/02/24 GCS 18:51 09/02/24 GCS 23:59 09/02/24 RTS 18:51 09/02/24 RTS 23:59 09/02/24 PROCEDURES NURSING INTERVENTIONS LABS / STUDIES 3 of 4 Visit Overview LABS / STUDIES ORDERED CBC w Diff CMP CT Chest/Abd/Pelvis w Cont EKG - ED Lactate, Serum Lipase Troponin-I Urinalysis CLINICAL IMPRESSION ACUTE GENERALIZED ABDOMINAL PAIN OF UNDETERMINED CAUSE 4 of 4 Normal [facility] ED VITALS FLOW SHEETon 09-03 ED VITALS FLOW SHEET Vitals Vital Sign Flow Sheet [facility] [address] [place] [address] [id number] 09/02/2024 Patient: BECKI JACKSON [facility]#: [id number] Sex: Female : 1990 Age: 34y Measurements Wt: 109.8 kg, Ht/Rafat: 65.0 in, BMI: 40.27 Measured Time BP MAP HR RR O2Sat ETCO2 Temp Pain GCS RTS 23:59 09/02/2024 130/65 87 90 18 94% 10 23:58 09/02/2024 90 93% 23:53 09/02/2024 83 95% 23:49 09/02/2024 130/65 86 77 23:48 09/02/2024 86 95% 23:43 09/02/2024 88 96% 23:38 09/02/2024 81 95% 23:33 09/02/2024 85 95% 23:29 09/02/2024 133/73 90 83 23:28 09/02/2024 84 96% 23:23 09/02/2024 89 96% 23:18 09/02/2024 75 94% 23:13 09/02/2024 75 94% 23:09 09/02/2024 130/71 90 72 23:08 09/02/2024 75 93% 1 of 3 Vitals Measured Time BP MAP HR RR O2Sat ETCO2 Temp Pain GCS RTS 23:03 09/02/2024 70 95% 22:58 09/02/2024 77 94% 22:53 09/02/2024 77 94% 22:49 09/02/2024 134/92 106 87 22:33 09/02/2024 89 94% 22:29 09/02/2024 116/65 88 82 22:28 09/02/2024 89 96% 22:23 09/02/2024 84 95% 22:18 09/02/2024 92 96% 22:13 09/02/2024 87 97% 22:09 09/02/2024 117/63 81 85 22:08 09/02/2024 84 96% 22:02 09/02/2024 76 96% 21:57 09/02/2024 82 96% 21:52 09/02/2024 78 97% 21:47 09/02/2024 91 97% 21:44 09/02/2024 84 96% 21:39 09/02/2024 89 95% 21:34 09/02/2024 74 95% 21:29 09/02/2024 140/68 92 90 21:29 09/02/2024 85 97% 21:24 09/02/2024 163 100% 21:19 09/02/2024 92 99% 21:14 09/02/2024 84 98% 21:09 09/02/2024 124/72 87 78 2 of 3 Vitals Measured Time BP MAP HR RR O2Sat ETCO2 Temp Pain GCS RTS 21:09 09/02/2024 88 98% 21:04 09/02/2024 88 96% 21:00 09/02/2024 9 20:59 09/02/2024 82 97% 20:54 09/02/2024 87 96% 20:49 09/02/2024 134/67 84 95 20:49 09/02/2024 99 98% 20:44 09/02/2024 77% 20:39 09/02/2024 93 95% 20:34 09/02/2024 99 95% 20:29 09/02/2024 129/77 94 91 20:29 09/02/2024 96 97% 20:24 09/02/2024 91 96% 20:19 09/02/2024 93 95% 20:14 09/02/2024 106 96% 20:10 09/02/2024 123/80 94 87 20:09 09/02/2024 96 96% 20:04 09/02/2024 105 95% 19:59 09/02/2024 97 96% 19:54 09/02/2024 109 94% 19:50 09/02/2024 120/82 87 106 19:49 09/02/2024 85% 18:51 09/02/2024 163/54 90 113 22 99% 98.8 F 10 3 of 3 Normal [facility] CBC + DIFFon 09-02-2024 Baso # 0.04 x10EE3/UL Normal 0.00 - 0.10 [facility] Comment on above: Performed By: #### 2 93756 #### [facility],[address],[place] [address] Basophils/100 WBC (Bld) 0.4 % Normal 0.0 - 2.0 [facility] Comment on above: Performed By: #### 2 21834 #### [facility],[address] [place] [address] CBC + DIFF Normal [facility] Comment on above: Result Comment: CBC- COMPLETE BLOOD COUNT Performed By: #### 2 15512 #### [facility],[address] [place] [address] EO # 0.14 x10EE3/UL Normal 0.00 - 0.50 [facility] Comment on above: Performed By: #### 2 98831 #### [facility],[address] [place] [address] Eosinophils/100 WBC (Bld) 1.6 % Normal 0.0 - 7.0 [facility] Comment on above: Performed By: #### 2 35143 #### [facility],[address] [place] [address] Erythrocyte distribution width (RBC) [Ratio] 13.9 % Normal 12.0 - 15.6 [facility] Comment on above: Performed By: #### 2 55208 #### [facility],[address] [place] [address] Hematocrit (Bld) [Volume fraction] 42.8 % Normal 34.0 - 46.0 [facility] Comment on above: Performed By: #### 2 92095 #### [facility],[address] [place], [place] [id number] Hemoglobin (Bld) [Mass/Vol] 14.6 g/dL Normal 12.0 - 16.0 [facility] Comment on above: Performed By: #### 2 61947 #### [facility],[address] [place], [place] [id number] Lymph # 1.66 x10EE3/UL Normal 0.80 - 2.80 [facility] Comment on above: Performed By: #### 2 88064 #### [facility],[address] [place] [address] Lymphocytes/100 WBC (Bld) 18.4 % Low 20.0 - 45.0 [facility] Comment on above: Performed By: #### 2 76793 #### [facility],[address] [place] [address] MANUAL DIFF N/A Normal [facility] Comment on above: Performed By: #### 2 17611 #### [facility],[address] [place] [address] MCH (RBC) [Entitic mass] 30 pg Normal 27 - 33 [facility] Comment on above: Performed By: #### 2 70772 #### [facility],[address] [place] [address] MCHC 34 X10 3 Normal 32 - 36 [facility] Comment on above: Performed By: #### 2 25314 #### [facility],[address] [place] [address] MCV (RBC) [Entitic vol] 88 fL Normal 80 - 99 [facility] Comment on above: Performed By: #### 2 12712 #### [facility],[address] [place] [address] Kimball # 0.68 x10EE3/UL Normal 0.20 - 1.00 [facility] Comment on above: Performed By: #### 2 16743 #### [facility],[address] [place] [address] MONOS % 7.5 % Normal 0.0 - 10.0 [facility] Comment on above: Performed By: #### 2 77000 #### [facility],[address] [place], [place] [id number] Morphology Florentino (Bld) [Interp] N/A Normal [facility] Comment on above: Performed By: #### 2 08637 #### [facility],[address] [place] [address] Neut # 6.53 x10EE3/UL Normal 1.50 - 7.10 [facility] Comment on above: Performed By: #### 2 58638 #### [facility],[address] [place] [address] Neutrophils/100 WBC (Bld) 72.1 % Normal 46.0 - 76.0 [facility] Comment on above: Performed By: #### 2 42346 #### [facility],[address] [place] [address]698 PLATELET 375 x10EE3/UL Normal 150 - 450 [facility] Comment on above: Performed By: #### 2 44725 #### [facility],[address] [place] [address]73 Platelet mean volume (Bld) [Entitic vol] 7.1 fL Normal 6.6 - 10.5 [facility] Comment on above: Result Comment: AUTO MATED DIFFERENTIAL Performed By: #### 2 44028 #### [facility],[address] [place] [address] 33148 RBC 4.88 x 10EE6/UL Normal 4.10 - 5.30 [facility] Comment on above: Performed By: #### 2 83708 #### [facility],[address] [place] [address] 46590 WBC 9.1 x 10EE3/UL Normal 4.5 - 10.8 [facility] Comment on above: Performed By: #### 2 47532 #### [facility],[address] [place] [address]79[address] CMP with eGFRon 09-02-2024 AGE 34 years Normal [facility] Comment on above: Performed By: #### 2 22743 ####[facility],[address] [place] [address]337 Albumin [Mass/Vol] 3.8 g/dL Normal 3.4 - 5.0 [facility] Comment on above: Performed By: #### 2 63228 ####[facility],[address] [place] [address]1276 Albumin/Globulin [Mass ratio] 1.1 {ratio} Normal 0.9 - 1.6 [facility] Comment on above: Performed By: #### 2 37402 ####[facility],[address] [place] [address] 55989 ALK PHOS 117 U/L High 46 - 116 [facility] Comment on above: Performed By: #### 2 40327 ####[facility],[address] [place] [address] 07512 ALT [Catalytic activity/Vol] 25 U/L Normal 16 - 63 [facility] Comment on above: Performed By: #### 2 99601 ####[facility],[address] [place] [address] 23274 Anion gap [Moles/Vol] 16 mmol/L Normal 10 - 20 [facility] Comment on above: Performed By: #### 2 32942 ####[facility],[address] [place] [address] 99431 AST [Catalytic activity/Vol] 14 U/L Normal 13 - 39 [facility] Comment on above: Performed By: #### 2 50326 ####[facility],[address] [place] [address] 96069 B/C RATIO 17 ratio Normal 0 - 30 [facility] Comment on above: Performed By: #### 2 71857 ####[facility],[address] [place] [address] 83139 Bilirubin [Mass/Vol] 0.3 mg/dL Normal 0.2 - 1.0 [facility] Comment on above: Performed By: #### 2 86995 ####[facility],[address] [place] [address]288 Calcium [Mass/Vol] 8.9 mg/dL Normal 8.5 - 10.1 [facility] Comment on above: Performed By: #### 2 53593 ####[facility],[address] [place], [place] [id number] Chloride [Moles/Vol] 106 mmol/L Normal 98 - 107 [facility] Comment on above: Performed By: #### 2 23116 ####[facility],[address] [place], [place] [id number] CMP with eGFR Normal [facility] Comment on above: Result Comment: COMP REHENSIVE METABOLIC PANEL Performed By: #### 2 50543 ####[place] [address] CO2 [Moles/Vol] 24.7 mmol/L Normal 21.0 - 32.0 [facility] Comment on above: Performed By: #### 2 97486 ####[place] [address] Creatinine [Mass/Vol] 0.89 mg/dL Normal 0.55 - 1.02 [facility] Comment on above: Performed By: #### 2 32584 ####[place] [address] GFR/1.73 sq M.predicted among non-blacks MDRD (S/P/Bld) [Vol rate/Area] mL/min/{1.73_m2} Normal 60 - 999 [facility] Comment on above: Performed By: #### 2 67636 ####[place] [address] Result Comment: ACCO RDING TO THE NATIONAL KIDNEY DISEASE EDUCATION PROGRAM(NKDE), A NORMAL eGFR IS A VALUE GREATER THAN OR EQUAL TO 60 ML/MIN/1.73 SQ METERS. CHRONIC KIDNEY DISEASE: <60mL/MIN/1.73 SQ METERS KIDNEY FAILURE: <15mL/MIN/1.73 SQ METERS THIS TEST SHOULD ONLY BE USED FOR PATIENTS 18 YEARS OF AGE AND OLDER. Globulin (S) [Mass/Vol] 3.6 g/dL Normal 1.5 - 3.[address] [facility] Comment on above: Performed By: #### 2 24609 ####[facility],[address] [place] [address]11 Glucose [Mass/Vol] 88 mg/dL Normal 74 - 106 [facility] Comment on above: Performed By: #### 2 41018 ####[facility],[address] [place] [address]276 Potassium [Moles/Vol] 3.8 mmol/L Normal 3.5 - 5.1 [facility] Comment on above: Performed By: #### 2 76244 ####[facility],[address] [place] [address]0142 Protein [Mass/Vol] 7.4 g/dL Normal 6.4 - 8.2 [facility] Comment on above: Performed By: #### 2 72077 ####[facility],[address] [place] [address] 86790 Sodium [Moles/Vol] 143 mmol/L Normal 136 - 145 [facility] Comment on above: Performed By: #### 2 31433 ####[facility],[address] [place] [address] 72049 Urea nitrogen [Mass/Vol] 15 mg/dL Normal 7 - 18 [facility] Comment on above: Performed By: #### 2 98494 ####[facility],[address] [place] [address] CHEST/ABD/PELVIS C+on CT CHEST/ABD/PELVIS C+ [place] [address] Patient: BECKI JACKSON Phone#: : 1990 Age: 34 Gender: F Pt. Type: ER Account: [id number] Location: [facility] Ordering: RUDI DUVAL Exam Date: 09/02/202421:53 Family Phys: KAYLEY DOBSON Charge Code: 305621 Physician: Richardson Order #: [id number] Dose#: 49.6 mGy PROCEDURE: CT CHEST/ABD/PELVIS W COMPARISON: None. INDICATIONS: Abdominal pain. TECHNIQUE: After obtaining the patient's consent, CT images were obtained with intravenous contrast material. All CT scans at this facility use dose modulation, iterative reconstruction, and/or weight based dosing when appropriate to reduce radiation dose to as low as reasonably achievable. IV CONTRAST: Omnipaque 350,80ml CHEST DOSE: 12.3 CTDIvol(mGy) ABDOMEN DOSE: 37 CTDIvol(mGy) FINDINGS: LUNGS: There is a right lower lobe pulmonary cyst. VASCULATURE: Normal. No visible pulmonary arterial thrombus or attenuation. ANTONI: Normal. No mass or adenopathy. MEDIASTINUM: Normal. No mass or adenopathy. CARDIAC: Normal. No enlargement, pericardial thickening, or significant calcification. PLEURA: Normal. No mass or effusion. CHEST WALL: Normal. No mass or axillary adenopathy. LIVER: Normal. No enlargement, atrophy, abnormal density, or significant focal lesion. BILIARY: Gallbladder is absent, surgical clips are in the gallbladder fossa. PANCREAS: Normal. No lesion, fluid collection, ductal dilatation, or atrophy. SPLEEN: Normal. No enlargement or focal lesion. KIDNEYS: Kidneys enhance and excrete contrast symmetrically. No hydronephrosis. ADRENALS: Normal. No mass or enlargement. AORTA/VASCULAR: No aortic aneurysm. RETROPERITONEUM: Normal. No mass or adenopathy. BOWEL/MESENTERY: No bowel obstruction or dilatation. No significant stool burden. Appendix is not visualized. Continued Report - Page 2 of 2 Patient: BECKI JACKSON Phone#: : 1990 Age: 34 Gender: F Pt. Type: ER Account: [id number] Location: 052 Ordering: RUDI DUVAL Exam Date: 09/02/2024/21:53 Family Phys: KAYLEY DOBSON Charge Code: 016123 Physician: Richardson Order #: [id number] Dose#: 49.6 mGy ABDOMINAL WALL: Small fat containing umbilical hernia URINARY BLADDER: Normal. No visible focal wall thickening, lesion, or calculus. PELVIC NODES: Normal. No adenopathy. PELVIC ORGANS: Uterus is present. Air in the vagina, consistent with tampon. BONES: Bone islands in the left ischial tuberosity. Disc height loss at L4-5 with associated at least mild spinal canal narrowing. There is at least mild bilateral neural foraminal narrowing. OTHER: Negative. CONCLUSION: 1. No acute intrathoracic, abdominal or pelvic abnormality. 2. L4-5 degenerative disc disease with disc bulge, disc height loss and osseous spinal canal narrowing. Dictated by: Heather Ken MD on 09/02/2024 at 22:12 Approved by: Heather Ken MD on 09/02/2024 at 22:21 Normal [facility] LIPASEon 09-02-2024 Lipase [Catalytic activity/Vol] 24.0 U/L Normal 15.0 - 78.0 [facility] Comment on above: Result Comment: *PLE ASE NOTE THAT RANGES FOR LIPASE HAVE CHANGED OF 10/22/23 DUE TO AN ASSAY UPDATE BY THE RECTIFYING ATTENDANT.THE NEW ASSAY RANGE IS 6-250 U/L, WITH A REFERENCE RANGE OF 16-77 U/L. Performed By: #### 2 00645 #### [place] [address] TROPONINon 09-02-2024 HS TROPONIN <4.0 Normal 0.0 - 51.4 [facility] Comment on above: Performed By: #### 2 38976 #### [place] [address] CBCon 08-22-2024 ABSOLUTE BAS 0.0 10*3/uL Normal 0.0-0.2 [facility] Comment on above: Performed By: #### B LC #### Testing performed at [address] [address] ABSOLUTE EOS 0.3 10*3/uL Normal 0.0-0.7 [facility] Comment on above: Performed By: #### B LC #### Testing performed at [address] [address] ABSOLUTE NEUTROPHIL COUNT 4.8 10*3/uL Normal 1.4-6.5 [facility] Comment on above: Performed By: #### B LC #### Testing performed at [address] [address] Basophils/100 WBC (Bld) 0.5 % Normal 0.0-2.0 [facility] Comment on above: Performed By: #### B LC #### Testing performed at [address] [place] [address] DTYPE AUTO DIFF Normal [facility] Comment on above: Performed By: #### B LC #### Testing performed at [address] [address] Eosinophils/100 WBC (Bld) 3.4 % Normal 0.0-11.0 [facility] Comment on above: Performed By: #### B LC #### Testing performed at [address] [address] Lymphocytes (Bld) [#/Vol] 1.5 10*3/uL Normal 1.2-3.4 [facility] Comment on above: Performed By: #### B LC #### Testing performed at [address] [place] [address] Lymphocytes/100 WBC (Bld) 20.7 % Normal 20.0-55.0 [facility] Comment on above: Performed By: #### B LC #### Testing performed at [address] [address] Monocytes (Bld) [#/Vol] 0.8 10*3/uL High 0.0-0.7 [facility] Comment on above: Performed By: #### B LC #### Testing performed at [address] [address] Monocytes/100 WBC (Bld) 10.8 % High 0.0-10.0 [facility] Comment on above: Performed By: #### B LC #### Testing performed at [address] [place] [address] Neutrophils/100 WBC (Bld) 64.6 % Normal 37.0-75.0 [facility] Comment on above: Performed By: #### B LC #### Testing performed at [address] [place] [address] Erythrocyte distribution width (RBC) [Ratio] 14.6 % High 11.5-14.5 [facility] Comment on above: Performed By: #### B LC #### Testing performed at [address] [address] Hematocrit (Bld) [Volume fraction] 38.9 % Normal 36.0-48.0 [facility] Comment on above: Performed By: #### B LC #### Testing performed at [address] [address] Hemoglobin (Bld) [Mass/Vol] 13.0 g/dL Normal 12.0-16.0 [facility] Comment on above: Performed By: #### B LC #### Testing performed at [address] [address] MCH (RBC) [Entitic mass] 29.9 pg Normal 26.0-35.0 [facility] Comment on above: Performed By: #### B LC #### Testing performed at [address] [address] MCHC (RBC) [Mass/Vol] 33.5 g/dL Normal 27.0-37.0 [facility] Comment on above: Performed By: #### B LC #### Testing performed at [address] [address] MCV (RBC) [Entitic vol] 89.2 fL Normal 80.0-100.0 [facility] Comment on above: Performed By: #### B LC #### Testing performed at [address] [address] Platelet mean volume (Bld) [Entitic vol] 7.3 fL Low 7.4-11.0 [facility] Comment on above: Performed By: #### B LC #### Testing performed at [address] [address] Platelets (Bld) [#/Vol] 303 10*3/uL Normal 130-400 [facility] Comment on above: Performed By: #### B LC #### Testing performed at [address] [address] RBC (Bld) [#/Vol] 4.36 10*6/uL Normal 4.0-5.4 [facility] Comment on above: Performed By: #### B BALAJI #### Testing performed at [address] [address] WBC (Bld) [#/Vol] 7.4 10*3/uL Normal 3.6-11.0 [facility] Comment on above: Performed By: #### B BALAJI #### Testing performed at [address] [address] CBC, EDIF, PLATELETon 2023 ABSOLUTE BASOPHIL COUNT 0.0 10*3/uL 0.0 - 0.2 10*3/uL [facility] Basophils/100 WBC (Bld) 0.5 % 0.0 - 2.0 % [facility] Differential cell count method Nom (Bld) AUTO DIFF % [facility] Eosinophils (Bld) [#/Vol] 0.3 10*3/uL 0.0 - 0.7 10*3/uL [facility] Eosinophils/100 WBC (Bld) 3.4 % 0.0 - 11.0 % [facility] Erythrocyte distribution width (RBC) [Ratio] 14.6 % High 11.5 - 14.5 % [facility] Hematocrit (Bld) [Volume fraction] 38.9 % 36.0 - 48.0 % [facility] Hemoglobin (Bld) [Mass/Vol] 13.0 g/dL [facility] Interpretation and review of laboratory results Abnormal [facility] Lymphocytes (Bld) [#/Vol] 1.5 10*3/uL 1.2 - 3.4 10*3/uL [facility] Lymphocytes/100 WBC (Bld) 20.7 % 20.0 - 55.0 % [facility] MCH (RBC) [Entitic mass] 29.9 pg 26.0 - 35.0 PG [facility] MCHC (RBC) [Mass/Vol] 33.5 g/dL [facility] MCV (RBC) [Entitic vol] 89.2 fL A [facility] Monocytes (Bld) [#/Vol] 0.8 10*3/uL High 0.0 - 0.7 10*3/uL [facility] Monocytes/100 WBC (Bld) 10.8 % High 0.0 - 10.0 % [facility] Neutrophils (Bld) [#/Vol] 4.8 10*3/uL 1.4 - 6.5 10*3/uL [facility] Neutrophils/100 WBC (Bld) 64.6 % 37.0 - 75.0 % [facility] Platelet mean volume (Bld) [Entitic vol] 7.3 fL Low [facility] Platelets (Bld) [#/Vol] 303 10*3/uL 130 - 400 10*3/uL [facility] RBC (Bld) [#/Vol] 4.36 10*6/uL 4.0 - 5.4 10*6/uL [facility] WBC (Bld) [#/Vol] 7.4 10*3/uL 3.6 - 11.0 10*3/uL [facility] CHEM 7 FASTINGon 08-22-2024 Chloride [Moles/Vol] 112 mmol/L High 98-107 [facility] Comment on above: Result Comment: Negin morel note: Triglyceride levels of 600mg/dL or higher may positively bias chloride results by approximately 2.1 mmol Performed By: #### B LC #### Testing performed at [address] [address] CO2 [Moles/Vol] 24 mmol/L Normal 22-30 [facility] Comment on above: Performed By: #### B LC #### Testing performed at [address] [address] Creatinine [Mass/Vol] 0.80 mg/dL Normal 0.70-1.20 [facility] Comment on above: Performed By: #### B LC #### Testing performed at [address] [address] EST. GFR, 106 ml/min/1.73sq.m [facility] Comment on above: Performed By: #### B LC #### Testing performed at [address] [address] EST. GFR,Non 88 ml/min/1.73sq.m [facility] Comment on above: Performed By: #### B LC #### Testing performed at [address] [address] GFR Information Average GFR for 30-3 9 years old = 107. Normal [facility] Comment on above: Result Comment: Iridologist nguyen Kidney disease, GFR = <60. Kidney failure, GFR = <15. The GFR estimate is not adjusted for extreme body surface area or acute process, nor has it been validated for women or ethnic groups other than and . Performed By: #### B LC #### Testing performed at [address] [address] Glucose [Mass/Vol] 105 mg/dL High 70-100 [facility] Comment on above: Result Comment: NORMAL <100 mg/dL PREDIABETES 101-126 mg/dL DIABETES 126 mg/dL or higher Performed By: #### B LC #### Testing performed at [place] [id number] Potassium [Moles/Vol] 4.1 mmol/L Normal 3.5-5.1 [facility] Comment on above: Performed By: #### B LC #### Testing performed at [address] [address] Sodium [Moles/Vol] 140 mmol/L Normal 137-145 [facility] Comment on above: Performed By: #### B LC #### Testing performed at [place] [id number] Urea nitrogen [Mass/Vol] 15 mg/dL Normal 7-20 [facility] Comment on above: Performed By: #### B LC #### Testing performed at [address] [address] CHEM 7 (LYTES,BUN,CREA,GLUC) on 08-22-2024 Chloride [Moles/Vol] 112 mmol/L [facility] Comment on above: Please note: Triglyc eride levels of 600mg/dL or higher may positively bias chloride results by approximately 2.1 mmol CO2 [Moles/Vol] 24 mmol/L [facility] Creatinine [Mass/Vol] 0.80 mg/dL [facility] GFR COMMENT Average GFR for 30-3 9 years old = 107. [facility] Comment on above: Chronic Kidney disea se, GFR = <60. Kidney failure, GFR = <15. The GFR estimate is not adjusted for extreme body surface area or acute process, nor has it been validated for women or ethnic groups other than and . GFR/1.73 sq M.predicted among blacks MDRD (S/P/Bld) [Vol rate/Area] 106 mL/min/{1.73_m2} ml/min/1.73sq .m [facility] GFR/1.73 sq M.predicted among non-blacks MDRD (S/P/Bld) [Vol rate/Area] 88 mL/min/{1.73_m2} ml/min/1.73sq .m [facility] Glucose post fast [Mass/Vol] 105 mg/dL High [facility] Comment on above: NORMAL <100 mg/dL PREDIABETES 101-126 mg/dL DIABETES 126 mg/dL or higher Interpretation and review of laboratory results Abnormal [facility] Potassium [Moles/Vol] 4.1 mmol/L [facility] Sodium [Moles/Vol] 140 mmol/L [facility] Urea nitrogen [Mass/Vol] 15 mg/dL [facility] CNPElsie 08-22-2024 CNPN Telephone (GASTSP) BECKI JACKSON ([id number]) 1990 F Date Time Provider Department 08/22/24 CLAIRE FLANAGAN GASTSP During your visit today, we recorded the following information about you: Hiram Sharma RN 08/22/2024 2:28 PM Addendum Called patient to check for updated insurance information. Patient states she is NOT taking Amitiza, she is not constipated. Telephone encounter sent to Dr. Flanagan. WENDIE for Amitiza initiated via [employer], Guerrero: [id number]. Rx #: [id number] Allergies As of Date: 08/22/2024 Noted Allergy Reaction IODINATED CONTRAST MEDIA 01/20/2023 11 - Vomiting PENICILLINS 11/12/2011 4 - Hives SULFA (SULFONAMIDE ANTIBIOTICS) 01/25/2013 4 - Hives Date Reviewed: 08/15/2024 Reviewed by: Claire Flanagan DO - Fully Assessed Reason for Visit: Medication Authorization [0319] Cmt: WENDIE for Amitiza Prescriptions as of 08/22/2024 - lubiprostone (AMITIZA) 8 mcg capsule Take 1 capsule by mouth two times a day with meals. - apixaban (ELIQUIS) 5 mg tab(s) Take 1 tablet by mouth every 12 hours. - granisetron HCl (KYTRIL) 1 mg tablet Take 1 tablet by mouth every 12 hours as needed. - aprepitant (EMEND) 80 mg capsule Take 1 capsule by mouth once daily. - busPIRone (BUSPAR) 10 mg tablet Take 1 tablet by mouth three times a day. - clonazePAM (KLONOPIN) 0.5 mg tablet Take 1 tablet by mouth once daily as needed for up to 7 days. - gabapentin (NEURONTIN) 300 mg capsule Take 300 mg by mouth three times a day. - paliperidone ER (INVEGA) 3 mg 24 hr tablet Take 3 mg by mouth once daily. - folic acid 400 mcg tablet Take 400 mcg by mouth once daily. - albuterol HFA (PROAIR HFA) 90 mcg/actuation inhaler Inhale 2 Puffs as instructed every 4 hours as needed for Wheezing/Shortness of Breath. Problem List As Of Date 08/22/2024 Noted Resolved IBS (irritable bowel syndrome) [K58.9] 05/30/2015 Supervision of normal first [Z34.00] 11/27/2011 04/03/2013 depression [F53.0] 08/12/2012 05/30/2015 Short interval between pregnancies complicating*04/03/20 13 11/01/2013 History of CMV [Z86.19] 04/03/2013 01/08/2016 with uncertain dates [Z34.90] 04/03/2013 08/22/2013 Chronic back pain [M54.9, G89.29] 04/03/2013 05/30/2015 History of depression [Z86.59] 04/03/2013 05/30/2015 Patient requested diagnostic testing [Z01.89] 04/03/2013 11/01/2013 Quit smoking [Z87.891] 04/03/2013 05/30/2015 Family history of congenital heart defect [Z82.*04/03/2013 11/01/2013 Tooth decay [K02.9] 04/03/2013 05/30/2015 Normal [Z34.90] 04/19/2013 11/01/2013 Supervision of other high-risk (V23.89*10/06/201305/30/2015 Group B Streptococcus carrier, +RV culture, cur*10/26/2013 05/30/2015 Sebaceous cyst [L72.3] 04/17/2014 05/30/2015 Poor support system complicating [O09*05/30/2015 01/08/2016 History of depression, currently pre*05/30/2015 01/08/2016 Obesity affecting [O99.210] 05/30/2015 01/08/2016 Rubella non-immune status, antepartum [O09.899,*06/03/2015 01/08/2016 Encounter for supervision of normal i*10/21/2015 01/08/2016 Short interval between pregnancies affecting pr*08/27/2016 06/07/2017 with uncertain dates [Z34.90] 08/27/2016 03/31/2017 History of prior with IUGR [Z*08/27/2016 06/07/2017 Back pain in [O99.891, M54.9] 08/27/2016 06/07/2017 History of depression [Z86.59] 08/27/2016 Family history of congenital heart defect [Z82.*08/27/2016 Patient requested diagnostic testing [Z01.89] 08/27/2016 03/31/2017 Drug use affecting in third trimester*03/17/2017 Gastroparesis [K31.84] 01/20/2023 Electronic cigarette use [Z78.9] 01/20/2023 Class 3 severe obesity in adult (HCC) [E66.813,*01/20/2023 Abdominal pain [R10.9] 05/24/2023 Pharyngoesophageal dysphagia [R13.14] 08/30/2023 Transaminitis [R74.01] 12/07/2023 Substance abuse (HCC) [F19.10] 12/07/2023 Bipolar disorder (HCC) [F31.9] 12/07/2023 Malnutrition of mild degree (HCC) [E44.1] 12/08/2023 Acute liver failure without hepatic coma [K72.0*12/13/2023 Cannabis use disorder [F12.90] 12/13/2023 Encounter Status:Closed by HIRAM [facility]ARMA [facility] BECKI [facility]ACK[facility] ([id number]) 1990 F Date Time Provider Department 08/22/24 CLAIRE FLANAGAN GASTSP During your visit today, we recorded the following information about you: Hiram Sharma, RN 08/22/2024 2:26 PM Signed Spoke with patient (identified by two identifiers.) Patient states she is not taking Amitiza as she is not constipated. She has c/o nausea and vomiting. She has Emend but needs something more. Kytril was denied by insurance. She did state that Klonopin worked before but only for brief amount of time. Has c/o chronic abdominal pain that she describes as aching and sharp. States she has previously had consult to pain management and it wasn't helpful but she's willing to try again. Advised her Dr. Flanagan's consult to pain management order is in since 12/13/23 and she should call to schedule. Patient is aware Dr. Jones placed consults to the swallowing center and behavioral medicine today. Advised patient to move forward by scheduling both. Claire Flanagan, DO 08/22/2024 2:30 PM Signed We can try meclizine. Hiram Sharma, RN 08/22/2024 2:58 PM Signed DENIAL RECEIVED FROM [facility]. Called [facility] [phone] and was advised medication was denied as it is only FDA approved for use with chemotherapy. Dr. Panchito mcclain, new order placed for Meclizine. Patient aware. Allergies As of Date: 08/22/2024 Noted Allergy Reaction IODINATED CONTRAST MEDIA 01/20/2023 11 - Vomiting PENICILLINS 11/12/2011 4 - Hives SULFA (SULFONAMIDE ANTIBIOTICS) 01/25/2013 4 - Hives Date Reviewed: 08/15/2024 Reviewed by: Claire Flanagan DO - Fully Assessed Order(s):meclizine (ANTIVERT) 25 mg tabTake 1 tablet by mouth three times a day.Disp: 90 tabletRfl: 5 Prescriptions as of 08/22/2024 - meclizine (ANTIVERT) 25 mg tab Take 1 tablet by mouth three times a day. - lubiprostone (AMITIZA) 8 mcg capsule Take 1 capsule by mouth two times a day with meals. - apixaban (ELIQUIS) 5 mg tab(s) Take 1 tablet by mouth every 12 hours. - granisetron HCl (KYTRIL) 1 mg tablet Take 1 tablet by mouth every 12 hours as needed. - aprepitant (EMEND) 80 mg capsule Take 1 capsule by mouth once daily. - busPIRone (BUSPAR) 10 mg tablet Take 1 tablet by mouth three times a day. - clonazePAM (KLONOPIN) 0.5 mg tablet Take 1 tablet by mouth once daily as needed for up to 7 days. - gabapentin (NEURONTIN) 300 mg capsule Take 300 mg by mouth three times a day. - paliperidone ER (INVEGA) 3 mg 24 hr tablet Take 3 mg by mouth once daily. - folic acid 400 mcg tablet Take 400 mcg by mouth once daily. - albuterol HFA (PROAIR HFA) 90 mcg/actuation inhaler Inhale 2 Puffs as instructed every 4 hours as needed for Wheezing/Shortness of Breath. Medication notes this encounter GRANISETRON HCL 1 MG TABLET >> Hiram Sharma RN 08/22/2024 2:57 PM >> HIRAM SHARMA Aug 22, 2024 2:57 PM DENIAL RECEIVED FROM [facility]. Called [facility] [phone] and was advised medication was denied as it is only FDA approved for use with chemotherapy. Dr. Flanagan aware, new order placed for Meclizine. Patient aware. Problem List As Of Date 08/22/2024 Noted Resolved IBS (irritable bowel syndrome) [K58.9] 05/30/2015 Supervision of normal first [Z34.00] 11/27/2011 04/03/2013 depression [F53.0] 08/12/2012 05/30/2015 Short interval between pregnancies complicating*04/03/20 13 11/01/2013 History of CMV [Z86.19] 04/03/2013 01/08/2016 with uncertain dates [Z34.90] 04/03/2013 08/22/2013 Chronic back pain [M54.9, G89.29] 04/03/2013 05/30/2015 History of depression [Z86.59] 04/03/2013 05/30/2015 Patient requested diagnostic testing [Z01.89] 04/03/2013 11/01/2013 Quit smoking [Z87.891] 04/03/2013 05/30/2015 Family history of congenital heart defect [Z82.*04/03/2013 11/01/2013 Tooth decay [K02.9] 04/03/2013 05/30/2015 Normal [Z34.90] 04/19/2013 11/01/2013 Supervision of other high-risk (V23.89*07/2605/30/2015 Group B Streptococcus carrier, +RV culture, cur*10/26/2013 05/30/2015 Sebaceous cyst [L72.3] 04/17/2014 05/30/2015 Poor support system complicating [O09*05/30/2015 01/08/2016 History of depression, currently pre*05/30/2015 01/08/2016 Obesity affecting [O99.210] 05/30/2015 01/08/2016 Rubella non-immune status, antepartum [O09.899,*06/03/2015 01/08/2016 Encounter for supervision of normal i*10/21/2015 01/08/2016 Short interval between pregnancies affecting pr*08/27/2016 06/07/2017 with uncertain dates [Z34.90] 08/27/2016 03/31/2017 History of prior with IUGR [Z*08/27/2016 06/07/2017 Back pain in [O99.891, M54.9] 08/27/2016 06/07/2017 History of depression [Z86.59] 08/27/2016 Family history of congenital heart defect [Z82.*08/27/2016 Patient requested diagnostic (more content not included)... Normal [facility] CT ABDOMEN/PELVIS WITHOUT CO NTRASTon 08-22-2024 CT ABDOMEN/PELVIS WITHOUT CONTRAST EXAMINATION:CT ABDOMEN/PELVIS WITHOUT CONTRAST INDICATION:pain recent EGD COMPARISON:08/02/2024 TECHNIQUE:Multiple thin section transaxial slices were acquired through the abdomen and pelvis without intravenous contrast. Coronal and sagittal reconstructed images were reviewed. Oral contrastWas not administered. FINDINGS: LOWER CHEST: The lower chest is unremarkable. LIVER: The liver is unremarkable. GALLBLADDER AND BILIARY SYSTEM: No obvious ductal dilation. The gallbladder is surgically absent. SPLEEN: The spleen is unremarkable. PANCREAS: The pancreas is unremarkable. ADRENAL GLANDS: The adrenal glands are unremarkable. KIDNEYS AND URETERS: There is no hydronephrosis of the kidneys.No obstructing urologic calcifications are present. VASCULATURE: Vascularity is unremarkable. PERITONEUM/RETROPERIT ONEUM: There is a small amount of free fluid in the pelvis which is nonspecific. No free air is identified on this examination. LYMPH NODES: No suspicious lymphadenopathy. GASTROINTESTINAL TRACT: The bowel is normal in caliber.There is chronic colonic diverticulosis of the colon without acute inflammation.The appendix is visualized and is not inflamed. BLADDER: The urinary bladder is unremarkable. REPRODUCTIVE SYSTEM: Reproductive system is unremarkable. BODY WALL: Unremarkable. BONES: Moderate degenerative disc disease is present in the L4-L5 level of the lumbar spine. IMPRESSION: 1. No acute process in the abdomen or pelvis. Normal [facility] CT Abdomen and Pelvis WO con traston 08-22-2024 IMPRESSION: 1. No acute process in the abdomen or pelvis. RADIOLOGY EXAMINATION:CT ABDOMEN/PELVIS WITHOUT CONTRAST INDICATION:pain recent EGD COMPARISON:08/02/2024 TECHNIQUE:Multiple thin section transaxial slices were acquired through the abdomen and pelvis without intravenous contrast. Coronal and sagittal reconstructed images were reviewed. Oral contrastWas not administered. FINDINGS: LOWER CHEST: The lower chest is unremarkable. LIVER: The liver is unremarkable. GALLBLADDER AND BILIARY SYSTEM: No obvious ductal dilation. The gallbladder is surgically absent. SPLEEN: The spleen is unremarkable. PANCREAS: The pancreas is unremarkable. ADRENAL GLANDS: The adrenal glands are unremarkable. KIDNEYS AND URETERS: There is no hydronephrosis of the kidneys.No obstructing urologic calcifications are present. VASCULATURE: Vascularity is unremarkable. PERITONEUM/RETROPERIT ONEUM: There is a small amount of free fluid in the pelvis which is nonspecific. No free air is identified on this examination. LYMPH NODES: No suspicious lymphadenopathy. GASTROINTESTINAL TRACT: The bowel is normal in caliber.There is chronic colonic diverticulosis of the colon without acute inflammation.The appendix is visualized and is not inflamed. BLADDER: The urinary bladder is unremarkable. REPRODUCTIVE SYSTEM: Reproductive system is unremarkable. BODY WALL: Unremarkable. BONES: Moderate degenerative disc disease is present in the L4-L5 level of the lumbar spine. RADIOLOGY Denisa Goyal, DO - 08/22/2024 EXAMINATION:CT ABDOMEN/PELVIS WITHOUT CONTRAST INDICATION:pain recent EGD COMPARISON:08/02/2024 TECHNIQUE:Multiple thin section transaxial slices were acquired through the abdomen and pelvis without intravenous contrast. Coronal and sagittal reconstructed images were reviewed. Oral contrastWas not administered. FINDINGS: LOWER CHEST: The lower chest is unremarkable. LIVER: The liver is unremarkable. GALLBLADDER AND BILIARY SYSTEM: No obvious ductal dilation. The gallbladder is surgically absent. SPLEEN: The spleen is unremarkable. PANCREAS: The pancreas is unremarkable. ADRENAL GLANDS: The adrenal glands are unremarkable. KIDNEYS AND URETERS: There is no hydronephrosis of the kidneys.No obstructing urologic calcifications are present. VASCULATURE: Vascularity is unremarkable. PERITONEUM/RETROPERIT ONEUM: There is a small amount of free fluid in the pelvis which is nonspecific. No free air is identified on this examination. LYMPH NODES: No suspicious lymphadenopathy. GASTROINTESTINAL TRACT: The bowel is normal in caliber.There is chronic colonic diverticulosis of the colon without acute inflammation.The appendix is visualized and is not inflamed. BLADDER: The urinary bladder is unremarkable. REPRODUCTIVE SYSTEM: Reproductive system is unremarkable. BODY WALL: Unremarkable. BONES: Moderate degenerative disc disease is present in the L4-L5 level of the lumbar spine. IMPRESSION IMPRESSION: 1. No acute process in the abdomen or pelvis. [employer] Radiology Study observation (narrative) [facility] [employer] CT Abdomen and Pelvis WO con trastOrdered By: Denisa Goyal on 08-22-2024 [employer] Work Phone: HEPATIC FUNCTION PANELon Albumin [Mass/Vol] 4.0 g/dL [facility] ALP [Catalytic activity/Vol] 86 U/L [facility] ALT [Catalytic activity/Vol] 26 U/L NINF [facility] AST [Catalytic activity/Vol] 25 U/L [facility] Bilirubin [Mass/Vol] 0.4 mg/dL [facility] Bilirubin[employer]direct [Mass/Vol] 0.3 mg/dL [facility] Protein [Mass/Vol] 6.6 g/dL [facility] LACTATE, BLOODon 08-22-2024 Lactate [Moles/Vol] 1.9 mmol/L 0.7 - 2. 0 mmol/L [facility] LACTATE,BLOODon 08-22-2024 Lactate [Moles/Vol] 1.9 mmol/L Normal 0.7-2.0 [facility] Comment on above: Performed By: #### L ACTAC ####Testing performed at [address] [place] [address] LIPASEon 08-22-2024 Lipase [Catalytic activity/Vol] 77 U/L 23 - 300 U/L [facility] LIPASE,SERUMon 08-22-2024 LIPASE,SERUM 77 U/L Normal 23-300 [facility] Comment on above: Performed By: #### B LC #### Testing performed at [address] [place] [address] LIVER PANELon 08-22-2024 Albumin [Mass/Vol] 4.0 g/dL Normal 2.9-5.3 [facility] Comment on above: Performed By: #### B LC #### Testing performed at [address] [place] [address] ALP [Catalytic activity/Vol] 86 U/L Normal 38-126 [facility] Comment on above: Performed By: #### B LC #### Testing performed at [address] [place] [address] ALT [Catalytic activity/Vol] 26 U/L Normal <35 [facility] Comment on above: Performed By: #### B LC #### Testing performed at [address] [address] AST [Catalytic activity/Vol] 25 U/L Normal 14-36 [facility] Comment on above: Performed By: #### B LC #### Testing performed at [address] [address] Bilirubin [Mass/Vol] 0.4 mg/dL Normal 0.2-1.3 [facility] Comment on above: Performed By: #### B LC #### Testing performed at [address] [address] Bilirubin.indirect [Mass/Vol] 0.3 mg/dL Normal 0.0-0.4 [facility] Comment on above: Performed By: #### B LC #### Testing performed at [address] [address] Protein [Mass/Vol] 6.6 g/dL Normal 6.3-8.2 [facility] Comment on above: Performed By: #### B LC #### Testing performed at [address] [address] No Panel Informationon 08-22 [facility] PROTIMEon 08-22-2024 INR Coag (PPP) [Relative time] 0.98 {INR} Normal 0.85-1.10 [facility] Comment on above: Result Comment: 2.0-3.0 THERAPEUTIC RANGE 2.5-3.5 MECHANICAL VALVE RANGE Performed By: #### B LC #### Testing performed at [address] [address] PT Coag (PPP) [Time] 13.1 s Normal 11.8-14.4 [facility] Comment on above: Performed By: #### B LC #### Testing performed at [address] [address] PROTIME-INRon 08-22-2024 INR Coag (PPP) [Relative time] 0.98 {INR} 0.85 - 1.10 [facility] Comment on above: 2.0-3.0 THERAPEUTIC RANGE 2.5-3.5 MECHANICAL VALVE RANGE PT Coag (PPP) [Time] 13.1 s [facility] TROPONIN I, HIGH SENSITIVITY on 08-22-2024 TROPONIN I, HIGH SENSITIVITY <2 0 - 12 pg/mL [facility] Comment on above: Indeterminant: >12 to 100 pg/mL female >20 to 100 pg/mL male Indicative of myocardial injury. Serial sampling is recommended, a change of greater than or equal to 20 pg/mL is indicative of acute coronary syndrome. [facility] TROPONIN I, HIGH SENSITIVITY <2 Normal 0-12 [facility] Comment on above: Result Comment: Indeterminant: >12 to 100 pg/mL female >20 to 100 pg/mL male Indicative of myocardial injury. Serial sampling is recommended, a change of greater than or equal to 20 pg/mL is indicative of acute coronary syndrome. Performed By: #### B #### Testing performed at [facility] [address] [place] [address] XR CHEST PA AND LATERAL 2 EWSon 08-22-2024 XR CHEST PA AND LATERAL 2 VIEWS EXAM: XR CHEST PA AND LATERAL 2 VIEWS HISTORY: pain recent EGD COMPARISON: Two-view chest from 08/02/2024. TECHNIQUE: PA and lateral chest were done. FINDINGS: Trachea, mediastinum and heart size are unremarkable. No infiltrate or nodule or effusion or pneumothorax is noted. Diaphragm and bony elements are intact. IMPRESSION: Nonacute two-view chest. Normal [facility] XR Chest PA and Lateralon IMPRESSION: Nonacute two-view chest. RADIOLOGY EXAM: XR CHEST PA AN D LATERAL 2 VIEWS HISTORY: pain recent EGD COMPARISON: Two-view chest from 08/02/2024. TECHNIQUE: PA and lateral chest were done. FINDINGS: Trachea, mediastinum and heart size are unremarkable. No infiltrate or nodule or effusion or pneumothorax is noted. Diaphragm and bony elements are intact. RADIOLOGY Scotty Prater, DO - 08/22/2024 EXAM: XR CHEST PA AND LATERAL 2 VIEWS HISTORY: pain recent EGD COMPARISON: Two-view chest from 08/02/2024. TECHNIQUE: PA and lateral chest were done. FINDINGS: Trachea, mediastinum and heart size are unremarkable. No infiltrate or nodule or effusion or pneumothorax is noted. Diaphragm and bony elements are intact. IMPRESSION IMPRESSION: Nonacute two-view chest. [facility]narrative[facility] Chest PA and LateralOrder ed By: Scotty Prater on 08-22-2024 [facility] Work Phone: Franky 08-17-2024 CNPN Telephone (GASTSP) MANUELBECKI D ([id number]) 1990 F Date Time Provider Department 08/17/24 CLAIRE FLANAGAN GAST During your visit today, we recorded the following information about you: Greg Mitchell RN 08/17/2024 3:36 PM Signed PA for Granisetron initiated electronically through [facility]. Awaiting response [place] Medicaid ID# [id number] Hiram Sharma RN 08/22/2024 3:02 PM Addendum DENIAL RECEIVED FROM [facility] via [employer], Guerrero: [id number], PA , Rx #: [id number] Called [facility] [phone] to attempt a verbal appeal and was advised medication was denied as it is only FDA approved for use with chemotherapy. Dr. Flanagan aware, new order placed for Meclizine. Patient aware. Allergies As of Date: 08/17/2024 Noted Allergy Reaction IODINATED CONTRAST MEDIA 01/20/2023 11 - Vomiting PENICILLINS 11/12/2011 4 - Hives SULFA (SULFONAMIDE ANTIBIOTICS) 01/25/2013 4 - Hives Date Reviewed: 08/15/2024 Reviewed by: Claire Flanagan, DO - Fully Assessed Reason for Visit: Medication Preauthorization [044] Cmt: PA for Granisetron (Kytril) Prescriptions as of 08/22/2024 - meclizine (ANTIVERT) 25 mg tab Take 1 tablet by mouth three times a day. - lubiprostone (AMITIZA) 8 mcg capsule Take 1 capsule by mouth two times a day with meals. - apixaban (ELIQUIS) 5 mg tab(s) Take 1 tablet by mouth every 12 hours. - granisetron HCl (KYTRIL) 1 mg tablet Take 1 tablet by mouth every 12 hours as needed. - aprepitant (EMEND) 80 mg capsule Take 1 capsule by mouth once daily. - busPIRone (BUSPAR) 10 mg tablet Take 1 tablet by mouth three times a day. - clonazePAM (KLONOPIN) 0.5 mg tablet Take 1 tablet by mouth once daily as needed for up to 7 days. - gabapentin (NEURONTIN) 300 mg capsule Take 300 mg by mouth three times a day. - paliperidone ER (INVEGA) 3 mg 24 hr tablet Take 3 mg by mouth once daily. - folic acid 400 mcg tablet Take 400 mcg by mouth once daily. - albuterol HFA (PROAIR HFA) 90 mcg/actuation inhaler Inhale 2 Puffs as instructed every 4 hours as needed for Wheezing/Shortness of Breath. Problem List As Of Date 08/17/2024 Noted Resolved IBS (irritable bowel syndrome) [K58.9] 05/30/2015 Supervision of normal first [Z34.00] 11/27/2011 04/03/2013 depression [F53.0] 08/12/2012 05/30/2015 Short interval between pregnancies complicating*04/03/20 13 11/01/2013 History of CMV [Z86.19] 04/03/2013 01/08/2016 with uncertain dates [Z34.90] 04/03/2013 08/22/2013 Chronic back pain [M54.9, G89.29] 04/03/2013 05/30/2015 History of depression [Z86.59] 04/03/2013 05/30/2015 Patient requested diagnostic testing [Z01.89] 04/03/2013 11/01/2013 Quit smoking [Z87.891] 04/03/2013 05/30/2015 Family history of congenital heart defect [Z82.*04/03/2013 11/01/2013 Tooth decay [K02.9] 04/03/2013 05/30/2015 Normal [Z34.90] 04/19/2013 11/01/2013 Supervision of other high-risk (V23.89*1006/201305/30/2015 Group B Streptococcus carrier, +RV culture, cur*10/26/2013 05/30/2015 Sebaceous cyst [L72.3] 04/17/2014 05/30/2015 Poor support system complicating [O09*05/30/2015 01/08/2016 History of depression, currently pre*05/30/2015 01/08/2016 Obesity affecting [O99.210] 05/30/2015 01/08/2016 Rubella non-immune status, antepartum [O09.899,*06/03/2015 01/08/2016 Encounter for supervision of normal i*10/21/2015 01/08/2016 Short interval between pregnancies affecting pr*08/27/2016 06/07/2017 with uncertain dates [Z34.90] 08/27/2016 03/31/2017 History of prior with IUGR [Z*08/27/2016 06/07/2017 Back pain in [O99.891, M54.9] 08/27/2016 06/07/2017 History of depression [Z86.59] 08/27/2016 Family history of congenital heart defect [Z82.*08/27/2016 Patient requested diagnostic testing [Z01.89] 08/27/2016 03/31/2017 Drug use affecting in third trimester*03/17/2017 Gastroparesis [K31.84] 01/20/2023 Electronic cigarette use [Z78.9] 01/20/2023 Class 3 severe obesity in adult (HCC) [E66.813,*01/20/2023 Abdominal pain [R10.9] 05/24/2023 Pharyngoesophageal dysphagia [R13.14] 08/30/2023 Transaminitis [R74.01] 12/07/2023 Substance abuse (HCC) [F19.10] 12/07/2023 Bipolar disorder (HCC) [F31.9] 12/07/2023 Malnutrition of mild degree (HCC) [E44.1] 12/08/2023 Acute liver failure without hepatic coma [K72.0*12/13/2023 Cannabis use disorder [F12.90] 12/13/2023 Encounter Status:Closed by GREG MITCHELL on 08/17/24 Normal [facility] ED Prov Noteon 08-10-2024 ED Prov Note ED PROVIDER NOTE [facility] EMERGENCY [facility] NAME: Becki Jackson AGE: 34 y.o. : 1990 VISIT DATE: 08/10/2024 CSN: [id number] PCP: María Hernandez MD Chief Complaint Patient presents with Toe Injury Chief complaint: Left foot injury. History of chief complaint: This 34-year-old female presents to ER stating that she kicked a coffee teachable with her left foot approximately 2 days ago. She was in her bare feet and now complains of pain in the left fourth and fifth toes with bruising over the fifth toe. She denies any other injuries. She had been taking some Tylenol and Motrin for pain. Past Medical History: Diagnosis Date Bipolar 1 disorder (HCC) DVT of axillary vein, acute left (HCC) Gastroparesis Past Surgical History: Procedure Laterality Date CHOLECYSTECTOMY ORTHOPEDIC SURGERY TONSILLECTOMY TUBAL LIGATION History reviewed. No pertinent family history. Social History Socioeconomic History Marital status: Tobacco Use Smoking status: Former Types: Cigarettes Smokeless tobacco: Former Types: Chew Vaping Use Vaping status: Every Day Substances: Nicotine, Flavoring Substance and Sexual Activity Alcohol use: Never Drug use: Never Social Determinants of Health Financial Resource Strain: Medium Risk (08/03/2024) Received from [facility] Overall Financial Resource Strain (CARDIA) Difficulty of Paying Living Expenses: Somewhat hard Food Insecurity: No Food Insecurity (08/03/2024) Received from [facility] Hunger Vital Sign Worried About Running Out of Food in the Last Year: Never true Ran Out of Food in the Last Year: Never true Transportation Needs: No Transportation Needs (08/03/2024) Received from [facility] PRAPARE - Transportation Lack of Transportation (Medical): No Lack of Transportation (Non-Medical): No Housing Stability: Low Risk (08/03/2024) Received from [facility] Housing Stability Vital Sign Unable to Pay for Housing in the Last Year: No Number of Times Moved in the Last Year: 1 Homeless in the Last Year: No Previous Medications Medication Sig apixaban 5 mg Tab Take 1 (one) tablet (5 mg total) by mouth 2 (two) times a day . gabapentin (NEURONTIN) 300 MG capsule Take 1 (one) capsule (300 mg total) by mouth 3 (three) times a day . metoclopramide (REGLAN) 10 MG tablet Take 1 (one) tablet (10 mg total) by mouth 4 (four) times a day with meals and nightly for 4 days . paliperidone (INVEGA) 3 MG 24 hr tablet Take 1 (one) tablet (3 mg total) by mouth daily . traZODone (DESYREL) 50 MG tablet Take 1 (one) tablet to 2 (two) tablets (50-100 mg total) by mouth at bedtime . [DISCONTINUED] naproxen (NAPROSYN) 500 MG tablet Take 1 (one) tablet (500 mg total) by mouth 2 (two) times a day as needed (pain) . Allergies Allergen Reactions Amoxil [Amoxicillin] Iodine And Iodide Containing Products GI Intolerance Penicillins Sulfa (Sulfonamide Antibiotics) Review of Systems Constitutional: Negative. HENT: Negative. Eyes: Negative. Respiratory: Negative. Cardiovascular: Negative. Gastrointestinal: Negative. Endocrine: Negative. Genitourinary: Negative. Musculoskeletal: Positive for arthralgias, joint swelling and myalgias. Patient complains of some pain and bruising over the left fourth and fifth toes. Skin: Positive for color change. Bruising over fifth toe left foot Allergic/Immunologic: Negative. Neurological: Negative. Hematological: Negative. Psychiatric/Behaviora l: Negative. All other systems reviewed and are negative. Patient Vitals for the past 24 hrs: BP Temp Temp src Pulse Resp SpO2 Height Weight 08/10/24 1855 (!) 124/102 99.5 degrees F (37.5 degrees C) Oral 96 16 99 % 5' 5 99.8 kg (220 lb) 08/10/24 1853 -- 99.5 degrees F (37.5 degrees C) Oral 96 16 -- -- -- Physical Exam Vitals and nursing note reviewed. Constitutional: Appearance: Normal appearance. Musculoskeletal: General: Swelling, tenderness and signs of injury present. Normal range of motion. Comments: Patient complains of tenderness over the left fifth toe with local ecchymosis. Patient also complains of some pain in the left fourth toe, less severe, and without ecchymosis. Nail in both toes intact without subungual hematoma or disruption. Flexion extension of the foot and ankle is intact. No pain in the ankle or proximal foot Skin: General: Skin is warm and dry. Capillary Refill: Capillary refill takes less than 2 seconds. Findings: Bruising present. Neurological: General: No focal deficit present. Mental Status: She is alert and oriented to person, place, and time. Psychiatric: Mood and Affect: Mood normal. Behavior: Behavior normal. Laboratory & Radiographic Imaging (if done): No results found for this visit on 07/25 (more content not included)... Normal [facility] ED Prov Note ED PROVIDER NOTE [facility] EMERGENCY DEPARTMENT NAME: Becki Jackson AGE: 34 y.o. : 1990 VISIT DATE: 08/10/2024 CSN: [id number] PCP: María Hernandez MD Chief Complaint Patient presents with Toe Injury Patient presents with bruising to the left fourth and fifth digits on the coffee table leg 2 days ago. No other injury no chest head or abdominal injury. Past Medical History: Diagnosis Date Bipolar 1 disorder (HCC) DVT of axillary vein, acute left (HCC) Gastroparesis Past Surgical History: Procedure Laterality Date CHOLECYSTECTOMY ORTHOPEDIC SURGERY TONSILLECTOMY TUBAL LIGATION History reviewed. No pertinent family history. Social History Socioeconomic History Marital status: Tobacco Use Smoking status: Former Types: Cigarettes Smokeless tobacco: Former Types: Chew Vaping Use Vaping status: Every Day Substances: Nicotine, Flavoring Substance and Sexual Activity Alcohol use: Never Drug use: Never Social Determinants of Health Financial Resource Strain: Medium Risk (08/03/2024) Received from [facility] Overall Financial Resource Strain (CARDIA) Difficulty of Paying Living Expenses: Somewhat hard Food Insecurity: No Food Insecurity (08/03/2024) Received from [facility] Hunger Vital Sign Worried About Running Out of Food in the Last Year: Never true Ran Out of Food in the Last Year: Never true Transportation Needs: No Transportation Needs (08/03/2024) Received from [facility] PRAPARE - Transportation Lack of Transportation (Medical): No Lack of Transportation (Non-Medical): No Housing Stability: Low Risk (08/03/2024) Received from [facility] Housing Stability Vital Sign Unable to Pay for Housing in the Last Year: No Number of Times Moved in the Last Year: 1 Homeless in the Last Year: No Previous Medications Medication Sig apixaban 5 mg Tab Take 1 (one) tablet (5 mg total) by mouth 2 (two) times a day . gabapentin (NEURONTIN) 300 MG capsule Take 1 (one) capsule (300 mg total) by mouth 3 (three) times a day . metoclopramide (REGLAN) 10 MG tablet Take 1 (one) tablet (10 mg total) by mouth 4 (four) times a day with meals and nightly for 4 days . paliperidone (INVEGA) 3 MG 24 hr tablet Take 1 (one) tablet (3 mg total) by mouth daily . traZODone (DESYREL) 50 MG tablet Take 1 (one) tablet to 2 (two) tablets (50-100 mg total) by mouth at bedtime . Allergies Allergen Reactions Amoxil [Amoxicillin] Iodine And Iodide Containing Products GI Intolerance Penicillins Sulfa (Sulfonamide Antibiotics) Review of Systems Constitutional: Negative. Patient Vitals for the past 24 hrs: BP Temp Temp src Pulse Resp SpO2 Height Weight 08/10/240 -- -- -- -- 18 -- -- -- 08/10/24 1855 (!) 124/102 99.5 degrees F (37.5 degrees C) Oral 96 16 99 % 5' 5 99.8 kg (220 lb) 08/10/24 1853 -- 99.5 degrees F (37.5 degrees C) Oral 96 16 -- -- -- Physical Exam Vitals reviewed. HENT: Head: Normocephalic. Cardiovascular: Rate and Rhythm: Normal rate and regular rhythm. Heart sounds: Normal heart sounds. Musculoskeletal: Cervical back: Neck supple. Pulmonary: Breath sounds: Normal breath sounds. Abdominal: Palpations: Abdomen is soft. Neurological: General: No focal deficit present. Mental Status: She is alert. Psychiatric: Mood and Affect: Mood normal. Left fifth toe appears bruised. Laboratory & Radiographic Imaging (if done): No results found for this visit on 08/10/24. XR Foot Left 3+ Views (Standard) Final Result No acute osseous abnormality. Workstation ID: [id number] Procedures Medical Decision Making Differential diagnosis include fracture, dislocation, contusion of the left fifth toe. X-rays are pending at this time. X-rays signed off to the night physician. The patient has been informed that they may have pre-hypertension or hypertension based on a blood pressure reading in the Emergency Department. I recommend that the patient call the primary care provider listed on their discharge instructions or a physician of their choice as soon as possible to arrange follow-up in the next 4 weeks for further evaluation of possible pre-hypertension or hypertension. . Clinical Impression: 1. Contusion of lesser toe of left foot without damage to nail, initial encounter ED Disposition ED Disposition Discharge Condition Stable Comment Becki Jackson discharged to home/self care in stable condition. Follow-up Information 1. María Hernandez MD. Why: As needed [facility] [place] [address] Contact information for after-discharge care Follow-up information has not been specified. New Prescriptions traMADol (ULTRAM) 50 mg tablet Take 1 (one) tablet (50 mg total) by mouth ever (more content not included)... [facility] XR FOOT LEFT 3+ VIEWS (STAND [place])on 08-10-2024 XR FOOT LEFT 3+ VIEWS (STANDARD) EXAMINATION: XR FOOT LEFT 3+ VIEWS (STANDARD) 08/10/2024 7:04 pm HISTORY: ORDERING SYSTEM PROVIDED HISTORY: Attention left fourth and fifth toes, TECHNOLOGIST PROVIDED HISTORY: Injury/Trauma Reason for exam: kicked a table leg, bruised in 5th toe Cancer History: n Surgery, RadiationHistory: n Encounter Type: Initial Mechanism of injury: kicked table ORDERING SYSTEM PROVIDED DIAGNOSIS CODES: COMPARISON: None FINDINGS: Three views of the left foot. Bones appear intact with anatomic alignment. Joint spaces appear maintained. Soft tissues are grossly unremarkable. IMPRESSION: No acute osseous abnormality. Workstation ID: [id number] Dictated by: KALEB ARRIETA on WedAug 10, 2024 8:16:32 PM EDT Transcribed by: KALEB ARRIETA on WedAug 10, 2024 8:16:32 PM EDT Finalized by: KALEB ARRIETA on WedAug 10, 2024 8:16:[address] [facility] Comment on above: Order Comment: Negat fanny: Dilute urine specimens, as indicated by a low specific gravity (<1.010) may not contain representitive levels of hCG. If is still suspected, a serum test or repeat urine test using a first morning urine specimen should be considered. CBCon 08-04-2024 ABSOLUTE BAS 0.1 10*3/uL Normal 0.0-0.2 [facility] Comment on above: Performed By: #### A CBC, CMPF #### Testing performed at [address] [address] ABSOLUTE EOS 0.1 10*3/uL Normal 0.0-0.7 [facility] Comment on above: Performed By: #### A CBC, CMPF #### Testing performed at [address] [address] ABSOLUTE NEUTROPHIL COUNT 5.2 10*3/uL Normal 1.4-6.5 [facility] Comment on above: Performed By: #### A CBC, CMPF #### Testing performed at [address] [address] Basophils/100 WBC (Bld) 1.0 % Normal 0.0-2.0 [facility] Comment on above: Performed By: #### A CBC, CMPF #### Testing performed at [address] [place] [address] DTYPE AUTO DIFF Normal [facility] Comment on above: Performed By: #### A CBC, CMPF #### Testing performed at [address] [address] Eosinophils/100 WBC (Bld) 1.7 % Normal 0.0-11.0 [facility] Comment on above: Performed By: #### A CBC, CMPF #### Testing performed at [address] [address] Lymphocytes (Bld) [#/Vol] 1.9 10*3/uL Normal 1.2-3.4 [facility] Comment on above: Performed By: #### A CBC, CMPF #### Testing performed at [address] [address] Lymphocytes/100 WBC (Bld) 23.1 % Normal 20.0-55.0 [facility] Comment on above: Performed By: #### A CBC, CMPF #### Testing performed at [address] [place] [address] Monocytes (Bld) [#/Vol] 0.8 10*3/uL High 0.0-0.7 [facility] Comment on above: Performed By: #### A CBC, CMPF #### Testing performed at [address] [place] [address] Monocytes/100 WBC (Bld) 10.1 % High 0.0-10.0 [facility] Comment on above: Performed By: #### A CBC, CMPF #### Testing performed at [address] [place] [address] Neutrophils/100 WBC (Bld) 64.1 % Normal 37.0-75.0 [facility] Comment on above: Performed By: #### A CBC, CMPF #### Testing performed at [address] [place] [address] Erythrocyte distribution width (RBC) [Ratio] 14.6 % High 11.5-14.5 [facility] Comment on above: Performed By: #### A CBC, CMPF #### Testing performed at [address] [place] [address] Hematocrit (Bld) [Volume fraction] 38.5 % Normal 36.0-48.0 [facility] Comment on above: Performed By: #### A CBC, CMPF #### Testing performed at [address] [place] [address] Hemoglobin (Bld) [Mass/Vol] 12.9 g/dL Normal 12.0-16.0 [facility] Comment on above: Performed By: #### A CBC, CMPF #### Testing performed at [address] [place] [address] MCH (RBC) [Entitic mass] 30.2 pg Normal 26.0-35.0 [facility] Comment on above: Performed By: #### A CBC, CMPF #### Testing performed at [address] [place] [address] MCHC (RBC) [Mass/Vol] 33.6 g/dL Normal 27.0-37.0 [facility] Comment on above: Performed By: #### A CBC, CMPF #### Testing performed at [address] [place] [address] MCV (RBC) [Entitic vol] 89.8 fL Normal 80.0-100.0 [facility] Comment on above: Performed By: #### A CBC, CMPF #### Testing performed at [address] [place] [address] Platelet mean volume (Bld) [Entitic vol] 7.1 fL Low 7.4-11.0 [facility] Comment on above: Performed By: #### A CBC, CMPF #### Testing performed at [address] [address] Platelets (Bld) [#/Vol] 306 10*3/uL Normal 130-400 [facility] Comment on above: Performed By: #### A CBC, CMPF #### Testing performed at [address] [address] RBC (Bld) [#/Vol] 4.28 10*6/uL Normal 4.0-5.4 [facility] Comment on above: Performed By: #### A CBC, CMPF #### Testing performed at [address] [address] WBC (Bld) [#/Vol] 8.1 10*3/uL Normal 3.6-11.0 [facility] Comment on above: Performed By: #### A CBC, CMPF #### Testing performed at [address] [address] CBC, EDIF, PLATELETon 2023 ABSOLUTE BASOPHIL COUNT 0.1 10*3/uL 0.0 - 0.2 10*3/uL [facility] Basophils/100 WBC (Bld) 1.0 % 0.0 - 2.0 % [facility] Differential cell count method Nom (Bld) AUTO DIFF % [facility] Eosinophils (Bld) [#/Vol] 0.1 10*3/uL 0.0 - 0.7 10*3/uL [facility] Eosinophils/100 WBC (Bld) 1.7 % 0.0 - 11.0 % [facility] Erythrocyte distribution width (RBC) [Ratio] 14.6 % High 11.5 - 14.5 % [facility] Hematocrit (Bld) [Volume fraction] 38.5 % 36.0 - 48.0 % [facility] Hemoglobin (Bld) [Mass/Vol] 12.9 g/dL [facility] Interpretation and review of laboratory results Abnormal [facility] Lymphocytes (Bld) [#/Vol] 1.9 10*3/uL 1.2 - 3.4 10*3/uL [facility] Lymphocytes/100 WBC (Bld) 23.1 % 20.0 - 55.0 % [facility] MCH (RBC) [Entitic mass] 30.2 pg 26.0 - 35.0 PG [facility] MCHC (RBC) [Mass/Vol] 33.6 g/dL [facility] MCV (RBC) [Entitic vol] 89.8 fL [facility] Monocytes (Bld) [#/Vol] 0.8 10*3/uL High 0.0 - 0.7 10*3/uL [facility] Monocytes/100 WBC (Bld) 10.1 % High 0.0 - 10.0 % [facility] Neutrophils (Bld) [#/Vol] 5.2 10*3/uL 1.4 - 6.5 10*3/uL [facility] Neutrophils/100 WBC (Bld) 64.1 % 37.0 - 75.0 % [facility] Platelet mean volume (Bld) [Entitic vol] 7.1 fL Low [facility] Platelets (Bld) [#/Vol] 306 10*3/uL 130 - 400 10*3/uL [facility] RBC (Bld) [#/Vol] 4.28 10*6/uL 4.0 - 5.4 10*6/uL [facility] WBC (Bld) [#/Vol] 8.1 10*3/uL 3.6 - 11.0 10*3/uL [facility] CMP FASTINGon 08-04-2024 A:G RATIO 1.3 RATIO Normal [facility] Comment on above: Performed By: #### A CBC, CMPF #### Testing performed at [facility] [address] [place] [address] ALBUMIN 3.5 G/dl Normal 3.5-5.0 [facility] Comment on above: Performed By: #### A CBC, CMPF #### Testing performed at [address] [address] ALP [Catalytic activity/Vol] 75 U/L Normal 38-126 [facility] Comment on above: Performed By: #### A CBC, CMPF #### Testing performed at [address] [place] [address] ALT [Catalytic activity/Vol] 17 U/L Normal <35 [facility] Comment on above: Performed By: #### A CBC, CMPF #### Testing performed at [address] [address] AST [Catalytic activity/Vol] 16 U/L Normal 14-36 [facility] Comment on above: Performed By: #### A CBC, CMPF #### Testing performed at [address] [address] Bilirubin [Mass/Vol] 0.5 mg/dL Normal 0.2-1.3 [facility] Comment on above: Performed By: #### A CBC, CMPF #### Testing performed at [address] [place] [address] Calcium [Mass/Vol] 8.9 mg/dL Normal 8.4-10.2 [facility] Comment on above: Performed By: #### A CBC, CMPF #### Testing performed at [address] [place] [address] Chloride [Moles/Vol] 107 mmol/L Normal 98-107 [facility] Comment on above: Result Comment: Negin morel note: Triglyceride levels of 600mg/dL or higher may positively bias chloride results by approximately 2.1 mmol Performed By: #### A CBC, CMPF #### Testing performed at [address] [address] CO2 [Moles/Vol] 27 mmol/L Normal 22-30 [facility] Comment on above: Performed By: #### A CBC, CMPF #### Testing performed at [address] [place] [address] Creatinine [Mass/Vol] 0.90 mg/dL Normal 0.70-1.20 [facility] Comment on above: Performed By: #### A CBC, CMPF #### Testing performed at [address] [address] EST. GFR, 93 ml/min/1.73sq.m [facility] Comment on above: Performed By: #### A CBC, CMPF #### Testing performed at [address] [address] EST. GFR,Non 77 ml/min/1.73sq.m [facility] Comment on above: Performed By: #### A CBC, CMPF #### Testing performed at [address] [address] GFR Information Average GFR for 30-3 9 years old = 107. Normal [facility] Comment on above: Result Comment: Iridologist nguyen Kidney disease, GFR = <60. Kidney failure, GFR = <15. The GFR estimate is not adjusted for extreme body surface area or acute process, nor has it been validated for women or ethnic groups other than and . Performed By: #### A CBC, CMPF #### Testing performed at [address] [address] Glucose [Mass/Vol] 91 mg/dL Normal 70-100 [facility] Comment on above: Result Comment: NORMAL <100 mg/dL PREDIABETES 101-126 mg/dL DIABETES 126 mg/dL or higher Performed By: #### A CBC, CMPF #### Testing performed at [address] [address] Potassium [Moles/Vol] 4.8 mmol/L Normal 3.5-5.1 [facility] Comment on above: Performed By: #### A CBC, CMPF #### Testing performed at [address] [address] Protein [Mass/Vol] 6.3 g/dL Normal 6.3-8.2 [facility] Comment on above: Performed By: #### A CBC, CMPF #### Testing performed at [address] [address] Sodium [Moles/Vol] 137 mmol/L Normal 137-145 [facility] Comment on above: Performed By: #### A CBC, CMPF #### Testing performed at [id number] [place] [address] Urea nitrogen [Mass/Vol] 19 mg/dL Normal 7-20 [facility] Comment on above: Performed By: #### A CBC, CMPF #### Testing performed at [address] [address] COMPREHENSIVE METABOLIC PANE Rashid 08-04-2024 Albumin [Mass/Vol] 3.5 G/dl 3.5 - 5.0 G/dl [facility] Albumin/Globulin [Mass ratio] 1.3 {ratio} RATIO [facility] ALP [Catalytic activity/Vol] 75 U/L [facility] ALT [Catalytic activity/Vol] 17 U/L NINF [facility] AST [Catalytic activity/Vol] 16 U/L [facility] Bilirubin [Mass/Vol] 0.5 mg/dL [facility] Calcium [Mass/Vol] 8.9 mg/dL [facility] Chloride [Moles/Vol] 107 mmol/L [facility] Comment on above: Please note: Triglyc eride levels of 600mg/dL or higher may positively bias chloride results by approximately 2.1 mmol CO2 [Moles/Vol] 27 mmol/L [facility] Creatinine [Mass/Vol] 0.90 mg/dL [facility] GFR COMMENT Average GFR for 30-3 9 years old = 107. [facility] Comment on above: Chronic Kidney disea se, GFR = <60. Kidney failure, GFR = <15. The GFR estimate is not adjusted for extreme body surface area or acute process, nor has it been validated for women or ethnic groups other than and . GFR/1.73 sq M.predicted among blacks MDRD (S/P/Bld) [Vol rate/Area] 93 mL/min/{1.73_m2} ml/min/1.73sq .m [facility] GFR/1.73 sq M.predicted among non-blacks MDRD (S/P/Bld) [Vol rate/Area] 77 mL/min/{1.73_m2} ml/min/1.73sq .m [facility] Glucose post fast [Mass/Vol] 91 mg/dL [facility] Comment on above: NORMAL <100 mg/dL PREDIABETES 101-126 mg/dL DIABETES 126 mg/dL or higher Potassium [Moles/Vol] 4.8 mmol/L [facility] Protein [Mass/Vol] 6.3 g/dL [facility] Sodium [Moles/Vol] 137 mmol/L [facility] Urea nitrogen [Mass/Vol] 19 mg/dL [facility] CBCon 08-03-2024 ABSOLUTE BAS 0.0 10*3/uL Normal 0.0-0.2 [facility] Comment on above: Performed By: #### C OVID #### Testing performed at [address] [address] ABSOLUTE EOS 0.0 10*3/uL Normal 0.0-0.7 [facility] Comment on above: Performed By: #### C OVID #### Testing performed at [address] [address] ABSOLUTE NEUTROPHIL COUNT 12.0 10*3/uL High 1.4-6.5 [facility] Comment on above: Performed By: #### C OVID #### Testing performed at [address] [address] Basophils/100 WBC (Bld) 0.3 % Normal 0.0-2.0 [facility] Comment on above: Performed By: #### C OVID #### Testing performed at [address] [address] DTYPE AUTO DIFF Normal [facility] Comment on above: Performed By: #### C OVID #### Testing performed at [address] [address] Eosinophils/100 WBC (Bld) 0.3 % Normal 0.0-11.0 [facility] Comment on above: Performed By: #### C OVID #### Testing performed at [address] [address] Lymphocytes (Bld) [#/Vol] 2.1 10*3/uL Normal 1.2-3.4 [facility] Comment on above: Performed By: #### C OVID #### Testing performed at [address] [address] Lymphocytes/100 WBC (Bld) 13.8 % Low 20.0-55.0 [facility] Comment on above: Performed By: #### C OVID #### Testing performed at [address] [address] Monocytes (Bld) [#/Vol] 1.3 10*3/uL High 0.0-0.7 [facility] Comment on above: Performed By: #### C OVID #### Testing performed at [address] [address] Monocytes/100 WBC (Bld) 8.2 % Normal 0.0-10.0 [facility] Comment on above: Performed By: #### C OVID #### Testing performed at [address] [address] Neutrophils/100 WBC (Bld) 77.4 % High 37.0-75.0 [facility] Comment on above: Performed By: #### C OVID #### Testing performed at [address] [address] Erythrocyte distribution width (RBC) [Ratio] 15.2 % High 11.5-14.5 [facility] Comment on above: Performed By: #### C OVID #### Testing performed at [address] [address] Hematocrit (Bld) [Volume fraction] 38.4 % Normal 36.0-48.0 [facility] Comment on above: Performed By: #### C OVID #### Testing performed at [address] [address] Hemoglobin (Bld) [Mass/Vol] 12.7 g/dL Normal 12.0-16.0 [facility] Comment on above: Performed By: #### C OVID #### Testing performed at [address] [address] MCH (RBC) [Entitic mass] 29.5 pg Normal 26.0-35.0 [facility] Comment on above: Performed By: #### C OVID #### Testing performed at [address] [address] MCHC (RBC) [Mass/Vol] 33.1 g/dL Normal 27.0-37.0 [facility] Comment on above: Performed By: #### C OVID #### Testing performed at [address] [address] MCV (RBC) [Entitic vol] 89.2 fL Normal 80.0-100.0 [facility] Comment on above: Performed By: #### C OVID #### Testing performed at [address] [address] Platelet mean volume (Bld) [Entitic vol] 7.1 fL Low 7.4-11.0 [facility] Comment on above: Performed By: #### C OVID #### Testing performed at [address] [address] Platelets (Bld) [#/Vol] 316 10*3/uL Normal 130-400 [facility] Comment on above: Performed By: #### C OVID #### Testing performed at [address] [address] RBC (Bld) [#/Vol] 4.30 10*6/uL Normal 4.0-5.4 [facility] Comment on above: Performed By: #### C OVID #### Testing performed at [address] [address] WBC (Bld) [#/Vol] 15.4 10*3/uL High 3.6-11.0 [facility] Comment on above: Performed By: #### C OVID #### Testing performed at [address] [address] CBC, EDIF, PLATELETon 2023 ABSOLUTE BASOPHIL COUNT 0.0 10*3/uL 0.0 - 0.2 10*3/uL [facility] Basophils/100 WBC (Bld) 0.3 % 0.0 - 2.0 % [facility] Differential cell count method Nom (Bld) AUTO DIFF % [facility] Eosinophils (Bld) [#/Vol] 0.0 10*3/uL 0.0 - 0.7 10*3/uL [facility] Eosinophils/100 WBC (Bld) 0.3 % 0.0 - 11.0 % [facility] Erythrocyte distribution width (RBC) [Ratio] 15.2 % High 11.5 - 14.5 % [facility] Hematocrit (Bld) [Volume fraction] 38.4 % 36.0 - 48.0 % [facility] Hemoglobin (Bld) [Mass/Vol] 12.7 g/dL [facility] Interpretation and review of laboratory results Abnormal [facility] Lymphocytes (Bld) [#/Vol] 2.1 10*3/uL 1.2 - 3.4 10*3/uL [facility] Lymphocytes/100 WBC (Bld) 13.8 % Low 20.0 - 55.0 % [facility] MCH (RBC) [Entitic mass] 29.5 pg 26.0 - 35.0 PG [facility] MCHC (RBC) [Mass/Vol] 33.1 g/dL [facility] MCV (RBC) [Entitic vol] 89.2 fL [facility] Monocytes (Bld) [#/Vol] 1.3 10*3/uL High 0.0 - 0.7 10*3/uL [facility] Monocytes/100 WBC (Bld) 8.2 % 0.0 - 10.0 % [facility] Neutrophils (Bld) [#/Vol] 12.0 10*3/uL High 1.4 - 6.5 10*3/uL [facility] Neutrophils/100 WBC (Bld) 77.4 % High 37.0 - 75.0 % [facility] Platelet mean volume (Bld) [Entitic vol] 7.1 fL Low [facility] Platelets (Bld) [#/Vol] 316 10*3/uL 130 - 400 10*3/uL [facility] RBC (Bld) [#/Vol] 4.30 10*6/uL 4.0 - 5.4 10*6/uL [facility] WBC (Bld) [#/Vol] 15.4 10*3/uL High 3.6 - 11.0 10*3/uL [facility] CMP FASTINGon 08-03-2024 A:G RATIO 1.3 RATIO Normal [facility] Comment on above: Performed By: #### C OVID #### Testing performed at [address] [address] ALBUMIN 3.7 G/dl Normal 3.5-5.0 [facility] Comment on above: Performed By: #### C OVID #### Testing performed at [address] [address] ALP [Catalytic activity/Vol] 68 U/L Normal 38-126 [facility] Comment on above: Performed By: #### C OVID #### Testing performed at [address] [address] ALT [Catalytic activity/Vol] 19 U/L Normal <35 [facility] Comment on above: Performed By: #### C OVID #### Testing performed at [address] [address] AST [Catalytic activity/Vol] 17 U/L Normal 14-36 [facility] Comment on above: Performed By: #### C OVID #### Testing performed at [address] [address] Bilirubin [Mass/Vol] 0.3 mg/dL Normal 0.2-1.3 [facility] Comment on above: Performed By: #### C OVID #### Testing performed at [address] [address] Calcium [Mass/Vol] 9.0 mg/dL Normal 8.4-10.2 [facility] Comment on above: Performed By: #### C OVID #### Testing performed at [address] [address] Chloride [Moles/Vol] 111 mmol/L High 98-107 [facility] Comment on above: Result Comment: Pleagnieszka morel note: Triglyceride levels of 600mg/dL or higher may positively bias chloride results by approximately 2.1 mmol Performed By: #### C OVID #### Testing performed at [address] [address] CO2 [Moles/Vol] 23 mmol/L Normal 22-30 [facility] Comment on above: Performed By: #### C OVID #### Testing performed at [address] [address] Creatinine [Mass/Vol] 0.87 mg/dL Normal 0.70-1.20 [facility] Comment on above: Performed By: #### C OVID #### Testing performed at [address] [address] EST. GFR, 96 ml/min/1.73sq.m [facility] Comment on above: Performed By: #### C OVID #### Testing performed at [address] [address] EST. GFR,Non 80 ml/min/1.73sq.m [facility] Comment on above: Performed By: #### C OVID #### Testing performed at [address] [address] GFR Information Average GFR for 30-3 9 years old = 107. Normal [facility] Comment on above: Result Comment: Iridologist nguyen Kidney disease, GFR = <60. Kidney failure, GFR = <15. The GFR estimate is not adjusted for extreme body surface area or acute process, nor has it been validated for women or ethnic groups other than and . Performed By: #### C OVID #### Testing performed at [address] [address] Glucose [Mass/Vol] 104 mg/dL High 70-100 [facility] Comment on above: Result Comment: NORMAL <100 mg/dL PREDIABETES 101-126 mg/dL DIABETES 126 mg/dL or higher Performed By: #### C OVID #### Testing performed at [address] [address] Potassium [Moles/Vol] 4.2 mmol/L Normal 3.5-5.1 [facility] Comment on above: Performed By: #### C OVID #### Testing performed at [address] [address] Protein [Mass/Vol] 6.5 g/dL Normal 6.3-8.2 [facility] Comment on above: Performed By: #### C OVID #### Testing performed at [address] [address] Sodium [Moles/Vol] 140 mmol/L Normal 137-145 [facility] Comment on above: Performed By: #### C OVID #### Testing performed at [address] [address] Urea nitrogen [Mass/Vol] 18 mg/dL Normal 7-20 [facility] Comment on above: Performed By: #### C OVID #### Testing performed at [facility] [address] [place] [address] COMPREHENSIVE METABOLIC PANE Rashid 08-03-2024 Albumin [Mass/Vol] 3.7 G/dl 3.5 - 5.0 G/dl [facility] Albumin/Globulin [Mass ratio] 1.3 {ratio} RATIO [facility] ALP [Catalytic activity/Vol] 68 U/L [facility] ALT [Catalytic activity/Vol] 19 U/L NINF [facility] AST [Catalytic activity/Vol] 17 U/L [facility] Bilirubin [Mass/Vol] 0.3 mg/dL [facility] Calcium [Mass/Vol] 9.0 mg/dL [facility] Chloride [Moles/Vol] 111 mmol/L High [facility] Comment on above: Please note: Triglyc eride levels of 600mg/dL or higher may positively bias chloride results by approximately 2.1 mmol CO2 [Moles/Vol] 23 mmol/L [facility] Creatinine [Mass/Vol] 0.87 mg/dL [facility] GFR COMMENT Average GFR for 30-3 9 years old = 107. [facility] Comment on above: Chronic Kidney disea se, GFR = <60. Kidney failure, GFR = <15. The GFR estimate is not adjusted for extreme body surface area or acute process, nor has it been validated for women or ethnic groups other than and . GFR/1.73 sq M.predicted among blacks MDRD (S/P/Bld) [Vol rate/Area] 96 mL/min/{1.73_m2} ml/min/1.73sq .m [facility] GFR/1.73 sq M.predicted among non-blacks MDRD (S/P/Bld) [Vol rate/Area] 80 mL/min/{1.73_m2} ml/min/1.73sq .m [facility] Glucose post fast [Mass/Vol] 104 mg/dL High [facility] Comment on above: NORMAL <100 mg/dL PREDIABETES 101-126 mg/dL DIABETES 126 mg/dL or higher Interpretation and review of laboratory results Abnormal [facility] Potassium [Moles/Vol] 4.2 mmol/L [facility] Protein [Mass/Vol] 6.5 g/dL [facility] Sodium [Moles/Vol] 140 mmol/L [facility] Urea nitrogen [Mass/Vol] 18 mg/dL [facility] BLOOD CULTUREon 08-02-2024 Bacteria identified Cx Nom (Bld) SPECIMEN DESCRIPTION PERIPHERAL BLOOD DRAW SPECIAL REQUESTS RAC CULTURE NO GROWTH 5 DAYS REPORT STATUS 08/08/2024 * Result Note: FINAL * Normal [facility] Comment on above: Performed By: #### B LC #### Testing performed at [address] [address] Bacteria identified Cx Nom (Bld) SPECIMEN DESCRIPTION PERIPHERAL BLOOD DRAW SPECIAL REQUESTS LAC CULTURE NO GROWTH 5 DAYS REPORT STATUS 08/08/2024 * Result Note: FINAL * Normal [facility] Comment on above: Performed By: #### U MAC #### Testing performed at [address] [place] [address] CBCon 08-02-2024 Band form neutrophils/100 WBC (Bld) 3 % High 0.0-2.0 [facility] Comment on above: Performed By: #### C OVID #### Testing performed at [address] [address] Basophils/100 WBC (Bld) 0 % Normal 0.0-2.0 [facility] Comment on above: Performed By: #### C OVID #### Testing performed at [address] [place] [address] DTYPE MANUAL DIFF Normal [facility] Comment on above: Performed By: #### C OVID #### Testing performed at [address] [address] Eosinophils/100 WBC (Bld) 0 % Normal 0.0-11.0 [facility] Comment on above: Performed By: #### C OVID #### Testing performed at [address] [address] Lymphocytes/100 WBC (Bld) 7 % Low 20.0-55.0 [facility] Comment on above: Performed By: #### C OVID #### Testing performed at [address] [address] Monocytes/100 WBC (Bld) 4 % Normal 0.0-10.0 [facility] Comment on above: Performed By: #### C OVID #### Testing performed at [address] [address] Neutrophils/100 WBC (Bld) 86 % High 37.0-75.0 [facility] Comment on above: Performed By: #### C OVID #### Testing performed at [address] [address] PLATELET COMMENT ADEQUATE Normal [facility] Comment on above: Performed By: #### C OVID #### Testing performed at [address] [address] RBC morphology finding Nom (Bld) 1+ Normal [facility] Comment on above: Result Comment: NORM AL Performed By: #### C OVID #### Testing performed at [address] [address] Erythrocyte distribution width (RBC) [Ratio] 14.8 % High 11.5-14.5 [facility] Comment on above: Performed By: #### C OVID #### Testing performed at [address] [address] Hematocrit (Bld) [Volume fraction] 38.6 % Normal 36.0-48.0 [facility] Comment on above: Performed By: #### C OVID #### Testing performed at [address] [address] Hemoglobin (Bld) [Mass/Vol] 12.8 g/dL Normal 12.0-16.0 [facility] Comment on above: Performed By: #### C OVID #### Testing performed at [address] [address] MCH (RBC) [Entitic mass] 29.2 pg Normal 26.0-35.0 [facility] Comment on above: Performed By: #### C OVID #### Testing performed at [address] [address] MCHC (RBC) [Mass/Vol] 33.1 g/dL Normal 27.0-37.0 [facility] Comment on above: Performed By: #### C OVID #### Testing performed at [address] [address] MCV (RBC) [Entitic vol] 88.4 fL Normal 80.0-100.0 [facility] Comment on above: Performed By: #### C OVID #### Testing performed at [address] [address] Platelet mean volume (Bld) [Entitic vol] 7.0 fL Low 7.4-11.0 [facility] Comment on above: Performed By: #### C OVID #### Testing performed at [address] [address] Platelets (Bld) [#/Vol] 338 10*3/uL Normal 130-400 [facility] Comment on above: Performed By: #### C OVID #### Testing performed at [address] [address] RBC (Bld) [#/Vol] 4.37 10*6/uL Normal 4.0-5.4 [facility] Comment on above: Performed By: #### C OVID #### Testing performed at [address] [address] WBC (Bld) [#/Vol] 25.4 10*3/uL Critically high 3.6-11.0 [facility] Comment on above: Result Comment: Resu lt called to and read back by: Armida HEBERT 08/02/2024 @ 18:37 by TAS Performed By: #### C OVID #### Testing performed at [address] [address] CBC, EDIF, PLATELETon 2023 Basophils/100 WBC (Bld) 0 % 0.0 - 2.0 % [facility] Differential cell count method Nom (Bld) MANUAL DIFF % [facility] Eosinophils/100 WBC (Bld) 0 % 0.0 - 11.0 % [facility] Erythrocyte distribution width (RBC) [Ratio] 14.8 % High 11.5 - 14.5 % [facility] Hematocrit (Bld) [Volume fraction] 38.6 % 36.0 - 48.0 % [facility] Hemoglobin (Bld) [Mass/Vol] 12.8 g/dL [facility] Immature granulocytes/100 WBC (Bld) 3 % High 0.0 - 2.0 % [facility] Interpretation and review of laboratory results Abnormal [facility] Lymphocytes/100 WBC (Bld) 7 % Low 20.0 - 55.0 % [facility] MCH (RBC) [Entitic mass] 29.2 pg 26.0 - 35.0 PG [facility] MCHC (RBC) [Mass/Vol] 33.1 g/dL [facility] MCV (RBC) [Entitic vol] 88.4 fL A [facility] Monocytes/100 WBC (Bld) 4 % 0.0 - 10.0 % [facility] Morphology Florentnio (Bld) [Interp] 1+ [facility] Comment on above: NORMAL Neutrophils/100 WBC (Bld) 86 % High 37.0 - 75.0 % [facility] Platelet mean volume (Bld) [Entitic vol] 7.0 fL Low [facility] Platelet morphology finding Nom (Bld) ADEQUATE [facility] Platelets (Bld) [#/Vol] 338 10*3/uL 130 - 400 10*3/uL [facility] RBC (Bld) [#/Vol] 4.37 10*6/uL 4.0 - 5.4 10*6/uL [facility] WBC (Bld) [#/Vol] 25.4 10*3/uL Critically high 3.6 - 1 1.0 10*3/uL [facility] Comment on above: Result called to and read back by: Armida HEBERT 08/02/2024 @ 18:37 by [facility] CMP FASTINGon 08-02-2024 A:G RATIO 1.3 RATIO Normal [facility] Comment on above: Performed By: #### C OVID #### Testing performed at [address] [address] ALBUMIN 3.9 G/dl Normal 3.5-5.0 [facility] Comment on above: Performed By: #### C OVID #### Testing performed at [address] [address] ALP [Catalytic activity/Vol] 80 U/L Normal 38-126 [facility] Comment on above: Performed By: #### C OVID #### Testing performed at [address] [address] ALT [Catalytic activity/Vol] 24 U/L Normal <35 [facility] Comment on above: Performed By: #### C OVID #### Testing performed at [address] [address] AST [Catalytic activity/Vol] 21 U/L Normal 14-36 [facility] Comment on above: Performed By: #### C OVID #### Testing performed at [address] [place] [address] Bilirubin [Mass/Vol] 0.4 mg/dL Normal 0.2-1.3 [facility] Comment on above: Performed By: #### C OVID #### Testing performed at [address] [address] Calcium [Mass/Vol] 9.4 mg/dL Normal 8.4-10.2 [facility] Comment on above: Performed By: #### C OVID #### Testing performed at [address] [address] Chloride [Moles/Vol] 109 mmol/L High 98-107 [facility] Comment on above: Result Comment: Negin morel note: Triglyceride levels of 600mg/dL or higher may positively bias chloride results by approximately 2.1 mmol Performed By: #### C OVID #### Testing performed at [address] [address] CO2 [Moles/Vol] 23 mmol/L Normal 22-30 [facility] Comment on above: Performed By: #### C OVID #### Testing performed at [address] [place] [address] Creatinine [Mass/Vol] 0.80 mg/dL Normal 0.70-1.20 [facility] Comment on above: Performed By: #### C OVID #### Testing performed at [address] [place] [address] EST. GFR, 106 ml/min/1.73sq.m [facility] Comment on above: Performed By: #### C OVID #### Testing performed at [address] [place] [address] EST. GFR,Non 88 ml/min/1.73sq.m [facility] Comment on above: Performed By: #### C OVID #### Testing performed at [address] [address] GFR Information Average GFR for 30-3 9 years old = 107. Normal [facility] Comment on above: Result Comment: Iridologist nguyen Kidney disease, GFR = <60. Kidney failure, GFR = <15. The GFR estimate is not adjusted for extreme body surface area or acute process, nor has it been validated for women or ethnic groups other than and . Performed By: #### C OVID #### Testing performed at [address] [address] Glucose [Mass/Vol] 125 mg/dL High 70-100 [facility] Comment on above: Result Comment: NORMAL <100 mg/dL PREDIABETES 101-126 mg/dL DIABETES 126 mg/dL or higher Performed By: #### C OVID #### Testing performed at [address] [address] Potassium [Moles/Vol] 3.6 mmol/L Normal 3.5-5.1 [facility] Comment on above: Performed By: #### C OVID #### Testing performed at [address] [address] Protein [Mass/Vol] 6.8 g/dL Normal 6.3-8.2 [facility] Comment on above: Performed By: #### C OVID #### Testing performed at [address] [address] Sodium [Moles/Vol] 138 mmol/L Normal 137-145 [facility] Comment on above: Performed By: #### C OVID #### Testing performed at [address] [address] Urea nitrogen [Mass/Vol] 17 mg/dL Normal 7-20 [facility] Comment on above: Performed By: #### C OVID #### Testing performed at [address] [address] COMPREHENSIVE METABOLIC PANE Rashid 08-02-2024 Albumin [Mass/Vol] 3.9 G/dl 3.5 - 5.0 G/dl [facility] Albumin/Globulin [Mass ratio] 1.3 {ratio} RATIO [facility] ALP [Catalytic activity/Vol] 80 U/L [facility] ALT [Catalytic activity/Vol] 24 U/L NINF [facility] AST [Catalytic activity/Vol] 21 U/L [facility] Bilirubin [Mass/Vol] 0.4 mg/dL [facility] Calcium [Mass/Vol] 9.4 mg/dL [facility] Chloride [Moles/Vol] 109 mmol/L High [facility] Comment on above: Please note: Triglyc eride levels of 600mg/dL or higher may positively bias chloride results by approximately 2.1 mmol CO2 [Moles/Vol] 23 mmol/L [facility] Creatinine [Mass/Vol] 0.80 mg/dL [facility] GFR COMMENT Average GFR for 30-3 9 years old = 107. [facility] Comment on above: Chronic Kidney disea se, GFR = <60. Kidney failure, GFR = <15. The GFR estimate is not adjusted for extreme body surface area or acute process, nor has it been validated for women or ethnic groups other than and . GFR/1.73 sq M.predicted among blacks MDRD (S/P/Bld) [Vol rate/Area] 106 mL/min/{1.73_m2} ml/min/1.73sq .m [facility] GFR/1.73 sq M.predicted among non-blacks MDRD (S/P/Bld) [Vol rate/Area] 88 mL/min/{1.73_m2} ml/min/1.73sq .m [facility] Glucose post fast [Mass/Vol] 125 mg/dL High [facility] Comment on above: NORMAL <100 mg/dL PREDIABETES 101-126 mg/dL DIABETES 126 mg/dL or higher Interpretation and review of laboratory results Abnormal [facility] Potassium [Moles/Vol] 3.6 mmol/L [facility] Protein [Mass/Vol] 6.8 g/dL [facility] Sodium [Moles/Vol] 138 mmol/L [facility] Urea nitrogen [Mass/Vol] 17 mg/dL [facility] CT ABDOMEN/PELVIS WITHOUT CO NTRASTon 08-02-2024 CT ABDOMEN/PELVIS WITHOUT CONTRAST EXAMINATION: CT ABDOMEN/PELVIS WITHOUT CONTRAST, 08/02/2024 6:29 PM EDT HISTORY: abdominal pain COMPARISON: 04/05/2024 TECHNIQUE: CT scan of the abdomen and pelvis was performed without IV contrast. CT dose reduction technique was used, including Automated Exposure Control. FINDINGS: LOWER CHEST: The visualized lungs are clear. LIVER: Unremarkable. GALLBLADDER AND BILIARY SYSTEM: Status post cholecystectomy. SPLEEN: Unremarkable. PANCREAS: Unremarkable. ADRENAL GLANDS: Unremarkable. KIDNEYS AND URETERS: No nephrolithiasis or hydronephrosis. No ureteral calculus. BLADDER: Unremarkable. GASTROINTESTINAL TRACT: No evidence of bowel obstruction or colitis. Normal appendix. VASCULATURE: The abdominal aorta is normal in caliber. RETROPERITONEUM: No lymphadenopathy. PERITONEUM/MESENTERY: No abdominal ascites. No free air. PELVIS: No pelvic ascites or lymphadenopathy. BODY WALL: Tiny fat-containing umbilical hernia. BONES: No acute abnormality. IMPRESSION: No acute findings in the abdomen or pelvis. Normal [facility] CT Abdomen and Pelvis WO con traston 08-02-2024 IMPRESSION: No acute findings in the abdomen or pelvis. RADIOLOGY EXAMINATION: CT ABDOMEN/PELVIS WITHOUT CONTRAST, 08/02/2024 6:29 PM EDT HISTORY: abdominal pain COMPARISON: 04/05/2024 TECHNIQUE: CT scan of the abdomen and pelvis was performed without IV contrast. CT dose reduction technique was used, including Automated Exposure Control. FINDINGS: LOWER CHEST: The visualized lungs are clear. LIVER: Unremarkable. GALLBLADDER AND BILIARY SYSTEM: Status post cholecystectomy. SPLEEN: Unremarkable. PANCREAS: Unremarkable. ADRENAL GLANDS: Unremarkable. KIDNEYS AND URETERS: No nephrolithiasis or hydronephrosis. No ureteral calculus. BLADDER: Unremarkable. GASTROINTESTINAL TRACT: No evidence of bowel obstruction or colitis. Normal appendix. VASCULATURE: The abdominal aorta is normal in caliber. RETROPERITONEUM: No lymphadenopathy. PERITONEUM/MESENTERY: No abdominal ascites. No free air. PELVIS: No pelvic ascites or lymphadenopathy. BODY WALL: Tiny fat-containing umbilical hernia. BONES: No acute abnormality. RADIOLOGY Nitin Goetz MD - 08/02/2024 EXAMINATION: CT ABDOMEN/PELVIS WITHOUT CONTRAST, 08/02/2024 6:29 PM EDT HISTORY: abdominal pain COMPARISON: 04/05/2024 TECHNIQUE: CT scan of the abdomen and pelvis was performed without IV contrast. CT dose reduction technique was used, including Automated Exposure Control. FINDINGS: LOWER CHEST: The visualized lungs are clear. LIVER: Unremarkable. GALLBLADDER AND BILIARY SYSTEM: Status post cholecystectomy. SPLEEN: Unremarkable. PANCREAS: Unremarkable. ADRENAL GLANDS: Unremarkable. KIDNEYS AND URETERS: No nephrolithiasis or hydronephrosis. No ureteral calculus. BLADDER: Unremarkable. GASTROINTESTINAL TRACT: No evidence of bowel obstruction or colitis. Normal appendix. VASCULATURE: The abdominal aorta is normal in caliber. RETROPERITONEUM: No lymphadenopathy. PERITONEUM/MESENTERY: No abdominal ascites. No free air. PELVIS: No pelvic ascites or lymphadenopathy. BODY WALL: Tiny fat-containing umbilical hernia. BONES: No acute abnormality. IMPRESSION IMPRESSION: No acute findings in the abdomen or pelvis. [facility] Radiology Study observation (narrative) [facility] CT Abdomen and Pelvis WO con trastOrdered By: Nitin Goetz on 08-02-2024 [facility] Work Phone: LACTATE, BLOODon 08-02-2024 Lactate [Moles/Vol] 1.3 mmol/L 0.7 - 2. 0 mmol/L [facility] LACTATE,BLOODon 08-02-2024 Lactate [Moles/Vol] 1.3 mmol/L Normal 0.7-2.0 [facility] Comment on above: Performed By: #### L ACTAC #### Testing performed at [address] [address] LIPASEon 08-02-2024 Lipase [Catalytic activity/Vol] 61 U/L 23 - 300 U/L [facility] LIPASE,SERUMon 08-02-2024 LIPASE,SERUM 61 U/L Normal 23-300 [facility] Comment on above: Performed By: #### C OVID #### Testing performed at [address] [address] NOVEL CORONAVIRUSon 08-02-20 24 NARRATIVE This test was performed using isothermal ANUSHA for the qualitative detection of SARS-CoV-2 nucleic acid. Normal [facility] Comment on above: Performed By: #### C OVID #### Testing performed at [address] [address] SARS-CoV-2 (COVID-19) RNA ANUSHA+probe Ql (Unsp spec) Not detected Normal NOT DETECTED [facility] Comment on above: Result Comment: Nega tive results do not preclude SARS-CoV-2 infection and should not be used as the sole basis for treatment or other patient management decisions. Optimum specimen types and timing for peak viral levels during infections caused by SARS-CoV-2 has not been determined. The possibility of a false negative result should especially be considered if the patient's recent exposures or clinical presentation suggest that SARS-CoV-2 infection is probable, and diagnostic tests for other causes of illness (e.g., other respiratory illness) are negative. Collection of a new specimen and re-testing may be necessary if the patient is critically ill or clinically deteriorating. Performed By: #### C OVID #### Testing performed at [address] [address] NOVEL CORONAVIRUS LAB 1 - NA SOPHARYNGEALon 08-02-2024 SARS-CoV-2 (COVID-19) RNA ANUSHA+probe Ql (Unsp spec) Not detected NOT DETECTED [facility] Comment on above: Negative results do not preclude SARS-CoV-2 infection and should not be used as the sole basis for treatment or other patient management decisions. Optimum specimen types and timing for peak viral levels during infections caused by SARS-CoV-2 has not been determined. The possibility of a false negative result should especially be considered if the patient's recent exposures or clinical presentation suggest that SARS-CoV-2 infection is probable, and diagnostic tests for other causes of illness (e.g., other respiratory illness) are negative. Collection of a new specimen and re-testing may be necessary if the patient is critically ill or clinically deteriorating. SARS-CoV-2 (COVID-19) RNA ANUSHA+probe Ql (Unsp spec) This test was performed using isothermal ANUSHA for the qualitative detection of SARS-CoV-2 nucleic acid. [facility] No Panel Informationon 08-02 [facility] YESENIA SMEARon 08-02-2024 Pathologist review Florentino (Unsp spec) [Interp] TESTING PERFORMED BY PATHOLOGIST [facility] SMEAR TO PATHOLOGISTon 08-02 SMEAR TO PATHOLOGIST TESTING PERFORMED B Y PATHOLOGIST Normal [facility] Comment on above: Performed By: #### B LC #### Testing performed at [address] [address] TSHon 08-02-2024 Interpretation and review of laboratory results Abnormal [facility] TSH Qn 0.150 m[IU]/L Low [facility] TSH 0.150 uIU/ML Low 0.465-4.680 [facility] Comment on above: Performed By: #### T SH2 #### Testing performed at [address] [address] URINALYSIS, MACROon 08-02-20 24 Bilirubin Ql (U) Negative NEGATIVE [facility] Clarity (U) CLEAR CLEAR [facility] Color (U) YELLOW YELLOW [facility] Glucose Test strip (U) [Mass/Vol] Negative NEGATIVE mg/dl [facility] Hemoglobin Ql (U) Negative NEGATIVE [facility] Interpretation and review of laboratory results Abnormal [facility] Ketones (U) [Mass/Vol] Negative NEGAT FANNY mg/dl [facility] Leukocyte esterase Test strip Ql (U) Negative NEGATIVE [facility] Nitrite Ql (U) Negative NEGATIVE [facility] pH (U) 6.0 [pH] 5.0 - 7.0 [facility] Protein Ql (U) Negative NEGATIVE mg/dl [facility] Specific gravity (U) [Rel density] >1.030 High 1.010 - 1.025 [facility] Urobilinogen (U) [Mass/Vol] 1.0 mg/dL [facility] URINE MACROSCOPICon 08-02-20 24 Bilirubin Ql (U) Negative Normal NEGATIVE [facility] Comment on above: Performed By: #### U MAC #### Testing performed at [address] [place] [address] Clarity (U) CLEAR Normal CLEAR [facility] Comment on above: Performed By: #### U MAC #### Testing performed at [address] [place] [address] Color (U) YELLOW Normal YELLOW [facility] Comment on above: Performed By: #### U MAC #### Testing performed at [address] [place] [address] Glucose Ql (U) Negative Normal NEGATIVE [facility] Comment on above: Performed By: #### U MAC #### Testing performed at [address] [address] pH (U) 6.0 [pH] Normal 5.0-7.0 [facility] Comment on above: Performed By: #### U MAC #### Testing performed at [address] [address] URINE HEMOGLOBIN Negative Normal NEGATIVE [facility] Comment on above: Performed By: #### U MAC #### Testing performed at [address] [address] URINE KETONE Negative Normal NEGATIVE [facility] Comment on above: Performed By: #### U MAC #### Testing performed at [address] [address] URINE LEUKOTEST Negative Normal NEGATIVE [facility] Comment on above: Performed By: #### U MAC #### Testing performed at [address] [address] URINE NITRATES Negative Normal NEGATIVE [facility] Comment on above: Performed By: #### U MAC #### Testing performed at [address] [address] URINE SPEC GRAVITY >1.030 High 1.010-1.025 [facility] Comment on above: Performed By: #### U MAC #### Testing performed at [address] [address] URINE TOTAL PROTEIN Negative Normal NEGATIVE [facility] Comment on above: Performed By: #### U MAC #### Testing performed at [address] [address] Urobilinogen Qn (U) 1.0 {Trent'U}/dL Normal 0.2-1.0 [facility] Comment on above: Performed By: #### U MAC #### Testing performed at [address] [address] XR CHEST PA AND LATERAL 2 EWSon 08-02-2024 XR CHEST PA AND LATERAL 2 VIEWS EXAM: XR CHEST PA AND LATERAL 2 VIEWS HISTORY: fever and leukocytosis COMPARISON: None. TECHNIQUE: AP and lateral-2 views of the chest were obtained. FINDINGS: Normal lung volumes. No consolidation. No masses. No pneumothorax. No pleural effusion. Normal cardiomediastinal silhouette. The pulmonary vasculature appears unremarkable. Trachea is in the midline. Bones and soft tissues appear unremarkable. IMPRESSION: No acute cardiopulmonary process. Normal [facility] XR Chest PA and Lateralon IMPRESSION: No acute cardiopulmonary process. RADIOLOGY EXAM: XR CHEST PA AN D LATERAL 2 VIEWS HISTORY: fever and leukocytosis COMPARISON: None. TECHNIQUE: AP and lateral-2 views of the chest were obtained. FINDINGS: Normal lung volumes. No consolidation. No masses. No pneumothorax. No pleural effusion. Normal cardiomediastinal silhouette. The pulmonary vasculature appears unremarkable. Trachea is in the midline. Bones and soft tissues appear unremarkable. RADIOLOGY Allie Morrison M D - 08/02/2024 EXAM: XR CHEST PA AND LATERAL 2 VIEWS HISTORY: fever and leukocytosis COMPARISON: None. TECHNIQUE: AP and lateral-2 views of the chest were obtained. FINDINGS: Normal lung volumes. No consolidation. No masses. No pneumothorax. No pleural effusion. Normal cardiomediastinal silhouette. The pulmonary vasculature appears unremarkable. Trachea is in the midline. Bones and soft tissues appear unremarkable. IMPRESSION IMPRESSION: No acute cardiopulmonary process. [facility] Radiology Study observation (narrative) [facility] XR Chest PA and LateralOrder ed By: Allie Morrison on 08-02-2024 [facility] B TYPE NATRIURETIC PEPTIDEon 08-01-2024 Natriuretic peptide B (Bld) [Mass/Vol] pg/mL Normal 0-100 [facility] Comment on above: Performed By: #### C OVID #### Testing performed at [address] [address] B-TYPE NATRIURETIC PEPTIDE ( BRAIN)on 08-01-2024 Natriuretic peptide B (Bld) [Mass/Vol] pg/mL 0 - 100 pg/mL [facility] CBCon 08-01-2024 ABSOLUTE BAS 0.1 10*3/uL Normal 0.0-0.2 [facility] Comment on above: Performed By: #### U MAC #### Testing performed at [address] [address] ABSOLUTE EOS 0.2 10*3/uL Normal 0.0-0.7 [facility] Comment on above: Performed By: #### U MAC #### Testing performed at [address] [address] ABSOLUTE NEUTROPHIL COUNT 7.7 10*3/uL High 1.4-6.5 [facility] Comment on above: Performed By: #### U MAC #### Testing performed at [address] [address] Basophils/100 WBC (Bld) 0.6 % Normal 0.0-2.0 [facility] Comment on above: Performed By: #### U MAC #### Testing performed at [address] [place] [address] DTYPE AUTO DIFF Normal [facility] Comment on above: Performed By: #### U MAC #### Testing performed at [address] [address] Eosinophils/100 WBC (Bld) 2.2 % Normal 0.0-11.0 [facility] Comment on above: Performed By: #### U MAC #### Testing performed at [address] [address] Lymphocytes (Bld) [#/Vol] 1.6 10*3/uL Normal 1.2-3.4 [facility] Comment on above: Performed By: #### U MAC #### Testing performed at [address] [address] Lymphocytes/100 WBC (Bld) 15.6 % Low 20.0-55.0 [facility] Comment on above: Performed By: #### U MAC #### Testing performed at [address] [address] Monocytes (Bld) [#/Vol] 0.8 10*3/uL High 0.0-0.7 [facility] Comment on above: Performed By: #### U MAC #### Testing performed at [address] [address] Monocytes/100 WBC (Bld) 7.4 % Normal 0.0-10.0 [facility] Comment on above: Performed By: #### U MAC #### Testing performed at [address] [address] Neutrophils/100 WBC (Bld) 74.2 % Normal 37.0-75.0 [facility] Comment on above: Performed By: #### U MAC #### Testing performed at [address] [address] Erythrocyte distribution width (RBC) [Ratio] 14.5 % Normal 11.5-14.5 [facility] Comment on above: Performed By: #### U MAC #### Testing performed at [address] [address] Hematocrit (Bld) [Volume fraction] 40.3 % Normal 36.0-48.0 [facility] Comment on above: Performed By: #### U MAC #### Testing performed at [address] [address] Hemoglobin (Bld) [Mass/Vol] 13.6 g/dL Normal 12.0-16.0 [facility] Comment on above: Performed By: #### U MAC #### Testing performed at [address] [address] MCH (RBC) [Entitic mass] 29.7 pg Normal 26.0-35.0 [facility] Comment on above: Performed By: #### U MAC #### Testing performed at [address] [address] MCHC (RBC) [Mass/Vol] 33.6 g/dL Normal 27.0-37.0 [facility] Comment on above: Performed By: #### U MAC #### Testing performed at [address] [address] MCV (RBC) [Entitic vol] 88.3 fL Normal 80.0-100.0 [facility] Comment on above: Performed By: #### U MAC #### Testing performed at [address] [address] Platelet mean volume (Bld) [Entitic vol] 6.7 fL Low 7.4-11.0 [facility] Comment on above: Performed By: #### U MAC #### Testing performed at [address] [address] Platelets (Bld) [#/Vol] 342 10*3/uL Normal 130-400 [facility] Comment on above: Performed By: #### U MAC #### Testing performed at [address] [address] RBC (Bld) [#/Vol] 4.57 10*6/uL Normal 4.0-5.4 [facility] Comment on above: Performed By: #### U MAC #### Testing performed at [id number] [place] [address] WBC (Bld) [#/Vol] 10.4 10*3/uL Normal 3.6-11.0 [facility] Comment on above: Performed By: #### U MAC #### Testing performed at [address] [address] CBC, EDIF, PLATELETon 2023 ABSOLUTE BASOPHIL COUNT 0.1 10*3/uL 0.0 - 0.2 10*3/uL [facility] Basophils/100 WBC (Bld) 0.6 % 0.0 - 2.0 % [facility] Differential cell count method Nom (Bld) AUTO DIFF % [facility] Eosinophils (Bld) [#/Vol] 0.2 10*3/uL 0.0 - 0.7 10*3/uL [facility] Eosinophils/100 WBC (Bld) 2.2 % 0.0 - 11.0 % [facility] Erythrocyte distribution width (RBC) [Ratio] 14.5 % 11.5 - 14.5 % [facility] Hematocrit (Bld) [Volume fraction] 40.3 % 36.0 - 48.0 % [facility] Hemoglobin (Bld) [Mass/Vol] 13.6 g/dL [facility] Interpretation and review of laboratory results Abnormal [facility] Lymphocytes (Bld) [#/Vol] 1.6 10*3/uL 1.2 - 3.4 10*3/uL [facility] Lymphocytes/100 WBC (Bld) 15.6 % Low 20.0 - 55.0 % [facility] MCH (RBC) [Entitic mass] 29.7 pg 26.0 - 35.0 PG [facility] MCHC (RBC) [Mass/Vol] 33.6 g/dL [facility] MCV (RBC) [Entitic vol] 88.3 fL A [facility] Monocytes (Bld) [#/Vol] 0.8 10*3/uL High 0.0 - 0.7 10*3/uL [facility] Monocytes/100 WBC (Bld) 7.4 % 0.0 - 10.0 % [facility] Neutrophils (Bld) [#/Vol] 7.7 10*3/uL High 1.4 - 6.5 10*3/uL [facility] Neutrophils/100 WBC (Bld) 74.2 % 37.0 - 75.0 % [facility] Platelet mean volume (Bld) [Entitic vol] 6.7 fL Low [facility] Platelets (Bld) [#/Vol] 342 10*3/uL 130 - 400 10*3/uL [facility] RBC (Bld) [#/Vol] 4.57 10*6/uL 4.0 - 5.4 10*6/uL [facility] WBC (Bld) [#/Vol] 10.4 10*3/uL 3.6 - 11.0 10*3/uL [facility] CHEM 7 FASTINGon 08-01-2024 Chloride [Moles/Vol] 107 mmol/L Normal 98-107 [facility] Comment on above: Result Comment: Negin morel note: Triglyceride levels of 600mg/dL or higher may positively bias chloride results by approximately 2.1 mmol Performed By: #### C OVID #### [place] [address] CO2 [Moles/Vol] 26 mmol/L Normal 22-30 [facility] Comment on above: Performed By: #### C OVID #### [place] [address] Creatinine [Mass/Vol] 0.90 mg/dL Normal 0.70-1.20 [facility] Comment on above: Performed By: #### C OVID #### Testing performed at [address] [address] EST. GFR, 93 ml/min/1.73sq.m [facility] Comment on above: Performed By: #### C OVID #### Testing performed at [place] [id number] EST. GFR,Non 77 ml/min/1.73sq.m [facility] Comment on above: Performed By: #### C OVID #### [place] [address] GFR Information Average GFR for 30-3 9 years old = 107. Normal [facility] Comment on above: Result Comment: Iridologist nguyen Kidney disease, GFR = <60. Kidney failure, GFR = <15. The GFR estimate is not adjusted for extreme body surface area or acute process, nor has it been validated for women or ethnic groups other than and . Performed By: #### C OVID #### Testing performed at [address] [address] Glucose [Mass/Vol] 75 mg/dL Normal 70-100 [facility] Comment on above: Result Comment: NORMAL <100 mg/dL PREDIABETES 101-126 mg/dL DIABETES 126 mg/dL or higher Performed By: #### C OVID #### Testing performed at [address] [address] Potassium [Moles/Vol] 4.0 mmol/L Normal 3.5-5.1 [facility] Comment on above: Performed By: #### C OVID #### Testing performed at [address] [address] Sodium [Moles/Vol] 138 mmol/L Normal 137-145 [facility] Comment on above: Performed By: #### C OVID #### Testing performed at [address] [address] Urea nitrogen [Mass/Vol] 21 mg/dL High 7-20 [facility] Comment on above: Performed By: #### C OVID #### Testing performed at [address] [address] CHEM 7 (LYTES,BUN,CREA,GLUC) on 08-01-2024 Chloride [Moles/Vol] 107 mmol/L [facility] Comment on above: Please note: Triglyc eride levels of 600mg/dL or higher may positively bias chloride results by approximately 2.1 mmol CO2 [Moles/Vol] 26 mmol/L [facility] Creatinine [Mass/Vol] 0.90 mg/dL [facility] GFR COMMENT Average GFR for 30-3 9 years old = 107. [facility] Comment on above: Chronic Kidney disea se, GFR = <60. Kidney failure, GFR = <15. The GFR estimate is not adjusted for extreme body surface area or acute process, nor has it been validated for women or ethnic groups other than and . GFR/1.73 sq M.predicted among blacks MDRD (S/P/Bld) [Vol rate/Area] 93 mL/min/{1.73_m2} ml/min/1.73sq .m [facility] GFR/1.73 sq M.predicted among non-blacks MDRD (S/P/Bld) [Vol rate/Area] 77 mL/min/{1.73_m2} ml/min/1.73sq .m [facility] Glucose post fast [Mass/Vol] 75 mg/dL [facility] Comment on above: NORMAL <100 mg/dL PREDIABETES 101-126 mg/dL DIABETES 126 mg/dL or higher Interpretation and review of laboratory results Abnormal [facility] Potassium [Moles/Vol] 4.0 mmol/L [facility] Sodium [Moles/Vol] 138 mmol/L [facility] Urea nitrogen [Mass/Vol] 21 mg/dL High [facility] CT PE STUDYon 08-01-2024 CT PE STUDY EXAMINATION: CT PE STUDY, , 08/01/2024 7:56 PM EDT INDICATION: sob, pleuritic pain, dvt left arm HISTORY: Ordering Provider Reason for Exam: Technologist Note: Additional: COMPARISON: CT PE STUDY Study Date: 07/25/2024 TECHNIQUE: CT angiography of the chest was performed with IV contrast. MIP (maximum intensity projection) images or 3D post processing was performed. CT dose reduction technique was used, including Automated Exposure Control. FINDINGS: This is a limited examination due to suboptimal contrast opacification of the pulmonary arteries as well as due to breathing artifact. No definite abrupt cut off or significant filling defect is seen to suggest CT evidence for pulmonary embolism. The pulmonary arteries are normal in caliber. The thoracic aorta is normal in course and caliber. There is no evidence for thoracic aortic aneurysm. The heart size is normal. There is no evidence for pericardial effusion. No significant coronary arterial calcification is seen. The lungs appear clear. No focal consolidation is seen. There is no evidence for pleural effusion or pneumothorax. No significant enlarged hilar, mediastinal or axillary adenopathy seen. No acute adenopathy is seen in the visualized upper abdomen. No destructive osseous lesion is seen. IMPRESSION: No CT evidence of pulmonary embolus or other acute pulmonary process. Normal [facility] CT Pulmonary arteries for pu lmonary emboluson 08-01-2024 IMPRESSION: No CT evidence of pulmonary embolus or other acute pulmonary process. RADIOLOGY EXAMINATION: CT PE STUDY, , 08/01/2024 7:56 PM EDT INDICATION: sob, pleuritic pain, dvt left arm HISTORY: Ordering Provider Reason for Exam: Technologist Note: Additional: COMPARISON: CT PE STUDY Study Date: 07/25/2024 TECHNIQUE: CT angiography of the chest was performed with IV contrast. MIP (maximum intensity projection) images or 3D post processing was performed. CT dose reduction technique was used, including Automated Exposure Control. FINDINGS: This is a limited examination due to suboptimal contrast opacification of the pulmonary arteries as well as due to breathing artifact. No definite abrupt cut off or significant filling defect is seen to suggest CT evidence for pulmonary embolism. The pulmonary arteries are normal in caliber. The thoracic aorta is normal in course and caliber. There is no evidence for thoracic aortic aneurysm. The heart size is normal. There is no evidence for pericardial effusion. No significant coronary arterial calcification is seen. The lungs appear clear. No focal consolidation is seen. There is no evidence for pleural effusion or pneumothorax. No significant enlarged hilar, mediastinal or axillary adenopathy seen. No acute adenopathy is seen in the visualized upper abdomen. No destructive osseous lesion is seen. RADIOLOGY Neris Santiago MD - 08/01/2024 EXAMINATION: CT PE STUDY, , 08/01/2024 7:56 PM EDT INDICATION: sob, pleuritic pain, dvt left arm HISTORY: Ordering Provider Reason for Exam: Technologist Note: Additional: COMPARISON: CT PE STUDY Study Date: 07/25/2024 TECHNIQUE: CT angiography of the chest was performed with IV contrast. MIP (maximum intensity projection) images or 3D post processing was performed. CT dose reduction technique was used, including Automated Exposure Control. FINDINGS: This is a limited examination due to suboptimal contrast opacification of the pulmonary arteries as well as due to breathing artifact. No definite abrupt cut off or significant filling defect is seen to suggest CT evidence for pulmonary embolism. The pulmonary arteries are normal in caliber. The thoracic aorta is normal in course and caliber. There is no evidence for thoracic aortic aneurysm. The heart size is normal. There is no evidence for pericardial effusion. No significant coronary arterial calcification is seen. The lungs appear clear. No focal consolidation is seen. There is no evidence for pleural effusion or pneumothorax. No significant enlarged hilar, mediastinal or axillary adenopathy seen. No acute adenopathy is seen in the visualized upper abdomen. No destructive osseous lesion is seen. IMPRESSION IMPRESSION: No CT evidence of pulmonary embolus or other acute pulmonary process. [facility] Radiology Study observation (narrative) [facility] CT Pulmonary arteries for pu lmonary embolusOrdered By: Neris Santiago on 08-01-2024 [facility] Work Phone: No Panel Informationon 08-01 [facility] PROTIMEon 08-01-2024 INR Coag (PPP) [Relative time] 0.94 {INR} Normal 0.85-1.10 [facility] Comment on above: Result Comment: 2.0-3.0 THERAPEUTIC RANGE 2.5-3.5 MECHANICAL VALVE RANGE Performed By: #### U MAC #### Testing performed at [address] [address] PT Coag (PPP) [Time] 12.7 s Normal 11.8-14.4 [facility] Comment on above: Performed By: #### U MAC #### Testing performed at [address] [address] PROTIME-INRon 08-01-2024 INR Coag (PPP) [Relative time] 0.94 {INR} 0.85 - 1.10 [facility] Comment on above: 2.0-3.0 THERAPEUTIC RANGE 2.5-3.5 MECHANICAL VALVE RANGE PT Coag (PPP) [Time] 12.7 s [facility] PTTon 08-01-2024 aPTT Coag (Bld) [Time] 30.6 s [facility] Comment on above: CARDIAC AND PE/DVT THERAPUTIC RANGE 69-97 SEC VASCULAR/THREATENED LIMB THERAPUTIC RANGE 80-112 SEC aPTT Coag (Bld) [Time] 30.6 s Normal 22.4-34.7 [facility] Comment on above: Result Comment: CARDIAC AND PE/DVT THERAPUTIC RANGE 69-97 SEC VASCULAR/THREATENED LIMB THERAPUTIC RANGE 80-112 SEC Performed By: #### U MAC #### Testing performed at [address] [address] TROPONIN I, HIGH SENSITIVITY on 08-01-2024 TROPONIN I, HIGH SENSITIVITY 3 pg/mL 0 - 12 pg/mL [facility] Comment on above: Indeterminant: >12 to 100 pg/mL female >20 to 100 pg/mL male Indicative of myocardial injury. Serial sampling is recommended, a change of greater than or equal to 20 pg/mL is indicative of acute coronary syndrome. [facility] TROPONIN I, HIGH SENSITIVITY 3 pg/mL Normal 0-12 [facility] Comment on above: Result Comment: Indeterminant: >12 to 100 pg/mL female >20 to 100 pg/mL male Indicative of myocardial injury. Serial sampling is recommended, a change of greater than or equal to 20 pg/mL is indicative of acute coronary syndrome. Performed By: #### B LC #### Testing performed at [address] [address] BETA HCG, QUAL, BLOODon HCG ( test) Ql Negative NEGATIVE A [facility] CBCon 07-25-2024 ABSOLUTE BAS 0.0 10*3/uL Normal 0.0-0.2 [facility] Comment on above: Performed By: #### C OVID #### Testing performed at [address] [address] ABSOLUTE EOS 0.2 10*3/uL Normal 0.0-0.7 [facility] Comment on above: Performed By: #### C OVID #### Testing performed at [address] [address] ABSOLUTE NEUTROPHIL COUNT 7.1 10*3/uL High 1.4-6.5 [facility] Comment on above: Performed By: #### C OVID #### Testing performed at [address] [address] Basophils/100 WBC (Bld) 0.5 % Normal 0.0-2.0 [facility] Comment on above: Performed By: #### C OVID #### Testing performed at [address] [address] DTYPE AUTO DIFF Normal [facility] Comment on above: Performed By: #### C OVID #### Testing performed at [address] [address] Eosinophils/100 WBC (Bld) 2.6 % Normal 0.0-11.0 [facility] Comment on above: Performed By: #### C OVID #### Testing performed at [address] [address] Lymphocytes (Bld) [#/Vol] 1.4 10*3/uL Normal 1.2-3.4 [facility] Comment on above: Performed By: #### C OVID #### Testing performed at [address] [address] Lymphocytes/100 WBC (Bld) 14.3 % Low 20.0-55.0 [facility] Comment on above: Performed By: #### C OVID #### Testing performed at [address] [address] Monocytes (Bld) [#/Vol] 0.8 10*3/uL High 0.0-0.7 [facility] Comment on above: Performed By: #### C OVID #### Testing performed at [address] [address] Monocytes/100 WBC (Bld) 8.0 % Normal 0.0-10.0 [facility] Comment on above: Performed By: #### C OVID #### Testing performed at [address] [address] Neutrophils/100 WBC (Bld) 74.6 % Normal 37.0-75.0 [facility] Comment on above: Performed By: #### C OVID #### Testing performed at [address] [address] Erythrocyte distribution width (RBC) [Ratio] 14.6 % High 11.5-14.5 [facility] Comment on above: Performed By: #### C OVID #### Testing performed at [address] [address] Hematocrit (Bld) [Volume fraction] 38.9 % Normal 36.0-48.0 [facility] Comment on above: Performed By: #### C OVID #### Testing performed at [address] [address] Hemoglobin (Bld) [Mass/Vol] 13.1 g/dL Normal 12.0-16.0 [facility] Comment on above: Performed By: #### C OVID #### Testing performed at [address] [address] MCH (RBC) [Entitic mass] 30.1 pg Normal 26.0-35.0 [facility] Comment on above: Performed By: #### C OVID #### Testing performed at [address] [address] MCHC (RBC) [Mass/Vol] 33.7 g/dL Normal 27.0-37.0 [facility] [facility] Comment on above: Performed By: #### C OVID #### Testing performed at [address] [address] MCV (RBC) [Entitic vol] 89.3 fL Normal 80.0-100.0 [facility] Comment on above: Performed By: #### C OVID #### Testing performed at [address] [address] Platelet mean volume (Bld) [Entitic vol] 7.2 fL Low 7.4-11.0 [facility] Comment on above: Performed By: #### C OVID #### Testing performed at [address] [address] Platelets (Bld) [#/Vol] 333 10*3/uL Normal 130-400 [facility] Comment on above: Performed By: #### C OVID #### Testing performed at [address] [address] RBC (Bld) [#/Vol] 4.36 10*6/uL Normal 4.0-5.4 [facility] Comment on above: Performed By: #### C OVID #### Testing performed at [address] [address] WBC (Bld) [#/Vol] 9.5 10*3/uL Normal 3.6-11.0 [facility] Comment on above: Performed By: #### C OVID #### Testing performed at [address] [address] CBC, EDIF, PLATELETon 2023 ABSOLUTE BASOPHIL COUNT 0.0 10*3/uL 0.0 - 0.2 10*3/uL [facility] Basophils/100 WBC (Bld) 0.5 % 0.0 - 2.0 % [facility] Differential cell count method Nom (Bld) AUTO DIFF % [facility] Eosinophils (Bld) [#/Vol] 0.2 10*3/uL 0.0 - 0.7 10*3/uL [facility] Eosinophils/100 WBC (Bld) 2.6 % 0.0 - 11.0 % [facility] Erythrocyte distribution width (RBC) [Ratio] 14.6 % High 11.5 - 14.5 % [facility] Hematocrit (Bld) [Volume fraction] 38.9 % 36.0 - 48.0 % [facility] Hemoglobin (Bld) [Mass/Vol] 13.1 g/dL [facility] Interpretation and review of laboratory results Abnormal [facility] Lymphocytes (Bld) [#/Vol] 1.4 10*3/uL 1.2 - 3.4 10*3/uL [facility] Lymphocytes/100 WBC (Bld) 14.3 % Low 20.0 - 55.0 % [facility] MCH (RBC) [Entitic mass] 30.1 pg 26.0 - 35.0 PG [facility] MCHC (RBC) [Mass/Vol] 33.7 g/dL [facility] MCV (RBC) [Entitic vol] 89.3 fL A [facility] Monocytes (Bld) [#/Vol] 0.8 10*3/uL High 0.0 - 0.7 10*3/uL [facility] Monocytes/100 WBC (Bld) 8.0 % 0.0 - 10.0 % [facility] Neutrophils (Bld) [#/Vol] 7.1 10*3/uL High 1.4 - 6.5 10*3/uL [facility] Neutrophils/100 WBC (Bld) 74.6 % 37.0 - 75.0 % [facility] Platelet mean volume (Bld) [Entitic vol] 7.2 fL Low [facility] Platelets (Bld) [#/Vol] 333 10*3/uL 130 - 400 10*3/uL [facility] RBC (Bld) [#/Vol] 4.36 10*6/uL 4.0 - 5.4 10*6/uL [facility] WBC (Bld) [#/Vol] 9.5 10*3/uL 3.6 - 11.0 10*3/uL [facility] CHEM 7 FASTINGon 07-25-2024 Chloride [Moles/Vol] 107 mmol/L Normal 98-107 [facility] Comment on above: Result Comment: Negin morel note: Triglyceride levels of 600mg/dL or higher may positively bias chloride results by approximately 2.1 mmol Performed By: #### C OVID #### [place] [address] CO2 [Moles/Vol] 27 mmol/L Normal 22-30 [facility] Comment on above: Performed By: #### C OVID #### [place] [address] Creatinine [Mass/Vol] 0.80 mg/dL Normal 0.70-1.20 [facility] Comment on above: Performed By: #### C OVID #### Testing performed at [address] [address] EST. GFR, 106 ml/min/1.73sq.m [facility] Comment on above: Performed By: #### C OVID #### [place] [address] EST. GFR,Non 88 ml/min/1.73sq.m [facility] Comment on above: Performed By: #### C OVID #### Testing performed at [address] [address] GFR Information Average GFR for 30-3 9 years old = 107. Normal [facility] Comment on above: Result Comment: Iridologist nguyen Kidney disease, GFR = <60. Kidney failure, GFR = <15. The GFR estimate is not adjusted for extreme body surface area or acute process, nor has it been validated for women or ethnic groups other than and . Performed By: #### C OVID #### [place] [address] Glucose [Mass/Vol] 96 mg/dL Normal 70-100 [facility] Comment on above: Result Comment: NORMAL <100 mg/dL PREDIABETES 101-126 mg/dL DIABETES 126 mg/dL or higher Performed By: #### C OVID #### Testing performed at [address] [address] Potassium [Moles/Vol] 3.9 mmol/L Normal 3.5-5.1 [facility] Comment on above: Performed By: #### C OVID #### Testing performed at [address] [address] Sodium [Moles/Vol] 139 mmol/L Normal 137-145 [facility] Comment on above: Performed By: #### C OVID #### Testing performed at [address] [address] Urea nitrogen [Mass/Vol] 19 mg/dL Normal 7-20 [facility] Comment on above: Performed By: #### C OVID #### Testing performed at [address] [address] CHEM 7 (LYTES,BUN,CREA,GLUC) on 07-25-2024 Chloride [Moles/Vol] 107 mmol/L [facility] Comment on above: Please note: Triglyc eride levels of 600mg/dL or higher may positively bias chloride results by approximately 2.1 mmol CO2 [Moles/Vol] 27 mmol/L [facility] Creatinine [Mass/Vol] 0.80 mg/dL [facility] GFR COMMENT Average GFR for 30-3 9 years old = 107. [facility] Comment on above: Chronic Kidney disea se, GFR = <60. Kidney failure, GFR = <15. The GFR estimate is not adjusted for extreme body surface area or acute process, nor has it been validated for women or ethnic groups other than and . GFR/1.73 sq M.predicted among blacks MDRD (S/P/Bld) [Vol rate/Area] 106 mL/min/{1.73_m2} ml/min/1.73sq .m [facility] GFR/1.73 sq M.predicted among non-blacks MDRD (S/P/Bld) [Vol rate/Area] 88 mL/min/{1.73_m2} ml/min/1.73sq .m [facility] Glucose post fast [Mass/Vol] 96 mg/dL [facility] Comment on above: NORMAL <100 mg/dL PREDIABETES 101-126 mg/dL DIABETES 126 mg/dL or higher Potassium [Moles/Vol] 3.9 mmol/L [facility] Sodium [Moles/Vol] 139 mmol/L [facility] Urea nitrogen [Mass/Vol] 19 mg/dL [facility] CT PE STUDYon 07-25-2024 CT PE STUDY EXAMINATION: CT PE STUDY, 07/25/2024 5:13 PM EDT HISTORY: chest pain, known dvt COMPARISON: None. TECHNIQUE: CT angiography of the chest was performed with IV contrast. MIP (maximum intensity projection) images or 3D post processing was performed. CT dose reduction technique was used, including Automated Exposure Control. FINDINGS: The pulmonary arteries are well-opacified by contrast. The right main pulmonary artery measures 2.1 cm and the left 1.7 cm. There is no evidence of filling defect in the pulmonary arterial tree to suggest pulmonary embolus. The heart size is normal. The RV: LV ratio is less than 1 (normal). There is no evidence of pericardial effusion. The visualized portions of the aorta are normal in calibers and contours. The lungs are grossly clear, without evidence of dominant mass, consolidation, pneumothorax, pleural effusion or air bronchogram. The visualized abdominal viscera and osseous structures are within normal limits. IMPRESSION: No evidence of pulmonary embolus or central pulmonary arterial hypertension. The study is within normal limits. The visualized cardiovascular, thoracic, abdominal and osseous structures are normal in appearance. Normal [facility] CT Pulmonary arteries for pu lmonary emboluson 07-25-2024 IMPRESSION: No evidence of pulmonary embolus or central pulmonary arterial hypertension. The study is within normal limits. The visualized cardiovascular, thoracic, abdominal and osseous structures are normal in appearance. RADIOLOGY EXAMINATION: CT PE STUDY, 07/25/2024 5:13 PM EDT HISTORY: chest pain, known dvt COMPARISON: None. TECHNIQUE: CT angiography of the chest was performed with IV contrast. MIP (maximum intensity projection) images or 3D post processing was performed. CT dose reduction technique was used, including Automated Exposure Control. FINDINGS: The pulmonary arteries are well-opacified by contrast. The right main pulmonary artery measures 2.1 cm and the left 1.7 cm. There is no evidence of filling defect in the pulmonary arterial tree to suggest pulmonary embolus. The heart size is normal. The RV: LV ratio is less than 1 (normal). There is no evidence of pericardial effusion. The visualized portions of the aorta are normal in calibers and contours. The lungs are grossly clear, without evidence of dominant mass, consolidation, pneumothorax, pleural effusion or air bronchogram. The visualized abdominal viscera and osseous structures are within normal limits. RADIOLOGY Anil Farooq MD - 07/25/2024 EXAMINATION: CT PE STUDY, 07/25/2024 5:13 PM EDT HISTORY: chest pain, known dvt COMPARISON: None. TECHNIQUE: CT angiography of the chest was performed with IV contrast. MIP (maximum intensity projection) images or 3D post processing was performed. CT dose reduction technique was used, including Automated Exposure Control. FINDINGS: The pulmonary arteries are well-opacified by contrast. The right main pulmonary artery measures 2.1 cm and the left 1.7 cm. There is no evidence of filling defect in the pulmonary arterial tree to suggest pulmonary embolus. The heart size is normal. The RV: LV ratio is less than 1 (normal). There is no evidence of pericardial effusion. The visualized portions of the aorta are normal in calibers and contours. The lungs are grossly clear, without evidence of dominant mass, consolidation, pneumothorax, pleural effusion or air bronchogram. The visualized abdominal viscera and osseous structures are within normal limits. IMPRESSION IMPRESSION: No evidence of pulmonary embolus or central pulmonary arterial hypertension. The study is within normal limits. The visualized cardiovascular, thoracic, abdominal and osseous structures are normal in appearance. [facility] Radiology Study observation (narrative) [facility] CT Pulmonary arteries for pu lmonary embolusOrdered By: Anil Farooq on 07-25-2024 [facility] Work Phone: HCG ( test) Qlon [facility] PROTIMEon 07-25-2024 INR Coag (PPP) [Relative time] 0.94 {INR} Normal 0.85-1.10 [facility] Comment on above: Result Comment: 2.0-3.0 THERAPEUTIC RANGE 2.5-3.5 MECHANICAL VALVE RANGE Performed By: #### P T #### Testing performed at [address] [address] PT Coag (PPP) [Time] 12.6 s Normal 11.8-14.4 [facility] Comment on above: Performed By: #### P T #### Testing performed at [address] [address] PROTIME-INRon 07-25-2024 INR Coag (PPP) [Relative time] 0.94 {INR} 0.85 - 1.10 [facility] Comment on above: 2.0-3.0 THERAPEUTIC RANGE 2.5-3.5 MECHANICAL VALVE RANGE PT Coag (PPP) [Time] 12.6 s [facility] SERUM HCG QUALon 07-25-2024 SERUM BETA HCG,QUAL Negative Normal NEGATIVE [facility] Comment on above: Performed By: #### C OVID #### Testing performed at [address] [address] TROPONIN I, HIGH SENSITIVITY on 07-25-2024 TROPONIN I, HIGH SENSITIVITY 2 pg/mL 0 - 12 pg/mL [facility] Comment on above: Indeterminant: >12 to 100 pg/mL female >20 to 100 pg/mL male Indicative of myocardial injury. Serial sampling is recommended, a change of greater than or equal to 20 pg/mL is indicative of acute coronary syndrome. [facility] TROPONIN I, HIGH SENSITIVITY 2 pg/mL Normal 0-12 [facility] Comment on above: Result Comment: Indeterminant: >12 to 100 pg/mL female >20 to 100 pg/mL male Indicative of myocardial injury. Serial sampling is recommended, a change of greater than or equal to 20 pg/mL is indicative of acute coronary syndrome. Performed By: #### B LC #### Testing performed at [address] [address] CBCon 07-23-2024 ABSOLUTE BAS 0.0 10*3/uL Normal 0.0-0.2 [facility] Comment on above: Performed By: #### P T #### Testing performed at [address] [address] ABSOLUTE EOS 0.3 10*3/uL Normal 0.0-0.7 [facility] Comment on above: Performed By: #### P T #### Testing performed at [address] [address] ABSOLUTE NEUTROPHIL COUNT 6.5 10*3/uL Normal 1.4-6.5 [facility] Comment on above: Performed By: #### P T #### Testing performed at [address] [address] Basophils/100 WBC (Bld) 0.5 % Normal 0.0-2.0 [facility] Comment on above: Performed By: #### P T #### Testing performed at [address] [address] DTYPE AUTO DIFF Normal [facility] Comment on above: Performed By: #### P T #### Testing performed at [address] [address] Eosinophils/100 WBC (Bld) 3.7 % Normal 0.0-11.0 [facility] Comment on above: Performed By: #### P T #### Testing performed at [address] [address] Lymphocytes (Bld) [#/Vol] 1.2 10*3/uL Normal 1.2-3.4 [facility] Comment on above: Performed By: #### P T #### Testing performed at [address] [address] Lymphocytes/100 WBC (Bld) 13.7 % Low 20.0-55.0 [facility] Comment on above: Performed By: #### P T #### Testing performed at [address] [place] [address] Monocytes (Bld) [#/Vol] 0.6 10*3/uL Normal 0.0-0.7 [facility] Comment on above: Performed By: #### P T #### Testing performed at [address] [address] Monocytes/100 WBC (Bld) 6.8 % Normal 0.0-10.0 [facility] Comment on above: Performed By: #### P T #### Testing performed at [address] [address] Neutrophils/100 WBC (Bld) 75.3 % High 37.0-75.0 [facility] Comment on above: Performed By: #### P T #### Testing performed at [address] [address] Erythrocyte distribution width (RBC) [Ratio] 14.4 % Normal 11.5-14.5 [facility] Comment on above: Performed By: #### P T #### Testing performed at [address] [address] Hematocrit (Bld) [Volume fraction] 40.6 % Normal 36.0-48.0 [facility] Comment on above: Performed By: #### P T #### Testing performed at [address] [address] Hemoglobin (Bld) [Mass/Vol] 13.6 g/dL Normal 12.0-16.0 [facility] Comment on above: Performed By: #### P T #### Testing performed at [address] [address] MCH (RBC) [Entitic mass] 29.8 pg Normal 26.0-35.0 [facility] Comment on above: Performed By: #### P T #### Testing performed at [address] [address] MCHC (RBC) [Mass/Vol] 33.5 g/dL Normal 27.0-37.0 [facility] Comment on above: Performed By: #### P T #### Testing performed at [address] [address] MCV (RBC) [Entitic vol] 89.1 fL Normal 80.0-100.0 [facility] Comment on above: Performed By: #### P T #### Testing performed at [address] [address] Platelet mean volume (Bld) [Entitic vol] 7.1 fL Low 7.4-11.0 [facility] Comment on above: Performed By: #### P T #### Testing performed at [address] [address] Platelets (Bld) [#/Vol] 315 10*3/uL Normal 130-400 [facility] Comment on above: Performed By: #### P T #### Testing performed at [address] [address] RBC (Bld) [#/Vol] 4.55 10*6/uL Normal 4.0-5.4 [facility] Comment on above: Performed By: #### P T #### Testing performed at [address] [address] WBC (Bld) [#/Vol] 8.6 10*3/uL Normal 3.6-11.0 [facility] Comment on above: Performed By: #### P T #### Testing performed at [address] [address] CBC, EDIF, PLATELETon 2023 ABSOLUTE BASOPHIL COUNT 0.0 10*3/uL 0.0 - 0.2 10*3/uL [facility] Basophils/100 WBC (Bld) 0.5 % 0.0 - 2.0 % [facility] Differential cell count method Nom (Bld) AUTO DIFF % [facility] Eosinophils (Bld) [#/Vol] 0.3 10*3/uL 0.0 - 0.7 10*3/uL [facility] Eosinophils/100 WBC (Bld) 3.7 % 0.0 - 11.0 % [facility] Erythrocyte distribution width (RBC) [Ratio] 14.4 % 11.5 - 14.5 % [facility] Hematocrit (Bld) [Volume fraction] 40.6 % 36.0 - 48.0 % [facility] Hemoglobin (Bld) [Mass/Vol] 13.6 g/dL [facility] Interpretation and review of laboratory results Abnormal [facility] Lymphocytes (Bld) [#/Vol] 1.2 10*3/uL 1.2 - 3.4 10*3/uL [facility] Lymphocytes/100 WBC (Bld) 13.7 % Low 20.0 - 55.0 % [facility] MCH (RBC) [Entitic mass] 29.8 pg 26.0 - 35.0 PG [facility] MCHC (RBC) [Mass/Vol] 33.5 g/dL [facility] MCV (RBC) [Entitic vol] 89.1 fL [facility] Monocytes (Bld) [#/Vol] 0.6 10*3/uL 0.0 - 0.7 10*3/uL [facility] Monocytes/100 WBC (Bld) 6.8 % 0.0 - 10.0 % [facility] Neutrophils (Bld) [#/Vol] 6.5 10*3/uL 1.4 - 6.5 10*3/uL [facility] Neutrophils/100 WBC (Bld) 75.3 % High 37.0 - 75.0 % [facility] Platelet mean volume (Bld) [Entitic vol] 7.1 fL Low [facility] Platelets (Bld) [#/Vol] 315 10*3/uL 130 - 400 10*3/uL [facility] RBC (Bld) [#/Vol] 4.55 10*6/uL 4.0 - 5.4 10*6/uL [facility] WBC (Bld) [#/Vol] 8.6 10*3/uL 3.6 - 11.0 10*3/uL [facility] CMP FASTINGon 07-23-2024 A:G RATIO 1.4 RATIO Normal [facility] Comment on above: Performed By: #### B LC #### Testing performed at [address] [address] ALBUMIN 3.8 G/dl Normal 3.5-5.0 [facility] Comment on above: Performed By: #### B LC #### Testing performed at [address] [address] ALP [Catalytic activity/Vol] 86 U/L Normal 38-126 [facility] Comment on above: Performed By: #### B LC #### Testing performed at [address] [address] ALT [Catalytic activity/Vol] 106 U/L High <35 [facility] Comment on above: Performed By: #### B LC #### Testing performed at [address] [address] AST [Catalytic activity/Vol] 51 U/L High 14-36 [facility] Comment on above: Performed By: #### B LC #### Testing performed at [address] [address] Bilirubin [Mass/Vol] 0.3 mg/dL Normal 0.2-1.3 [facility] Comment on above: Performed By: #### B LC #### Testing performed at [address] [address] Calcium [Mass/Vol] 9.2 mg/dL Normal 8.4-10.2 [facility] Comment on above: Performed By: #### B LC #### Testing performed at [address] [address] Chloride [Moles/Vol] 109 mmol/L High 98-107 [facility] Comment on above: Result Comment: Negin morel note: Triglyceride levels of 600mg/dL or higher may positively bias chloride results by approximately 2.1 mmol Performed By: #### B LC #### Testing performed at [address] [address] CO2 [Moles/Vol] 23 mmol/L Normal 22-30 [facility] Comment on above: Performed By: #### B LC #### Testing performed at [address] [address] Creatinine [Mass/Vol] 0.75 mg/dL Normal 0.70-1.20 [facility] Comment on above: Performed By: #### B LC #### Testing performed at [address] [address] EST. GFR, 114 ml/min/1.73sq.m [facility] Comment on above: Performed By: #### B LC #### Testing performed at [address] [place] [address] EST. GFR,Non 95 ml/min/1.73sq.m [facility] Comment on above: Performed By: #### B LC #### Testing performed at [address] [address] GFR Information Average GFR for 30-3 9 years old = 107. Normal [facility] Comment on above: Result Comment: Iridologist nguyen Kidney disease, GFR = <60. Kidney failure, GFR = <15. The GFR estimate is not adjusted for extreme body surface area or acute process, nor has it been validated for women or ethnic groups other than and . Performed By: #### B LC #### Testing performed at [address] [address] Glucose [Mass/Vol] 107 mg/dL High 70-100 [facility] Comment on above: Result Comment: NORMAL <100 mg/dL PREDIABETES 101-126 mg/dL DIABETES 126 mg/dL or higher Performed By: #### B LC #### Testing performed at [address] [address] Potassium [Moles/Vol] 4.2 mmol/L Normal 3.5-5.1 [facility] Comment on above: Performed By: #### B LC #### Testing performed at [address] [address] Protein [Mass/Vol] 6.6 g/dL Normal 6.3-8.2 [facility] Comment on above: Performed By: #### B LC #### Testing performed at [address] [address] Sodium [Moles/Vol] 137 mmol/L Normal 137-145 [facility] Comment on above: Performed By: #### B LC #### Testing performed at [address] [address] Urea nitrogen [Mass/Vol] 26 mg/dL High 7-20 [facility] Comment on above: Performed By: #### B LC #### Testing performed at [address] [address] COMPREHENSIVE METABOLIC PANE Rashid 07-23-2024 Albumin [Mass/Vol] 3.8 G/dl 3.5 - 5.0 G/dl [facility] Albumin/Globulin [Mass ratio] 1.4 {ratio} RATIO [facility] ALP [Catalytic activity/Vol] 86 U/L [facility] ALT [Catalytic activity/Vol] 106 U/L High NINF [facility] AST [Catalytic activity/Vol] 51 U/L High [facility] Bilirubin [Mass/Vol] 0.3 mg/dL [facility] Calcium [Mass/Vol] 9.2 mg/dL [facility] Chloride [Moles/Vol] 109 mmol/L High [facility] Comment on above: Please note: Triglyc eride levels of 600mg/dL or higher may positively bias chloride results by approximately 2.1 mmol CO2 [Moles/Vol] 23 mmol/L [facility] Creatinine [Mass/Vol] 0.75 mg/dL [facility] GFR COMMENT Average GFR for 30-3 9 years old = 107. [facility] Comment on above: Chronic Kidney disea se, GFR = <60. Kidney failure, GFR = <15. The GFR estimate is not adjusted for extreme body surface area or acute process, nor has it been validated for women or ethnic groups other than and . GFR/1.73 sq M.predicted among blacks MDRD (S/P/Bld) [Vol rate/Area] 114 mL/min/{1.73_m2} ml/min/1.73sq .m [facility] GFR/1.73 sq M.predicted among non-blacks MDRD (S/P/Bld) [Vol rate/Area] 95 mL/min/{1.73_m2} ml/min/1.73sq .m [facility] Glucose post fast [Mass/Vol] 107 mg/dL High [facility] Comment on above: NORMAL <100 mg/dL PREDIABETES 101-126 mg/dL DIABETES 126 mg/dL or higher Interpretation and review of laboratory results Abnormal [facility] Potassium [Moles/Vol] 4.2 mmol/L [facility] Protein [Mass/Vol] 6.6 g/dL [facility] Sodium [Moles/Vol] 137 mmol/L [facility] Urea nitrogen [Mass/Vol] 26 mg/dL High [facility] No Panel Informationon 07-23 [facility] PROTIMEon 07-23-2024 INR Coag (PPP) [Relative time] 0.95 {INR} Normal 0.85-1.10 [facility] Comment on above: Result Comment: 2.0-3.0 THERAPEUTIC RANGE 2.5-3.5 MECHANICAL VALVE RANGE Performed By: #### P T #### [place] [address] PT Coag (PPP) [Time] 12.8 s Normal 11.8-14.4 [facility] Comment on above: Performed By: #### P T #### Testing performed at [address] [address] PROTIME-INRon 07-23-2024 INR Coag (PPP) [Relative time] 0.95 {INR} 0.85 - 1.10 [facility] Comment on above: 2.0-3.0 THERAPEUTIC RANGE 2.5-3.5 MECHANICAL VALVE RANGE PT Coag (PPP) [Time] 12.8 s [facility] PTTon 07-23-2024 aPTT Coag (Bld) [Time] 29.6 s [facility] Comment on above: CARDIAC AND PE/DVT THERAPUTIC RANGE 69-97 SEC VASCULAR/THREATENED LIMB THERAPUTIC RANGE 80-112 SEC aPTT Coag (Bld) [Time] 29.6 s Normal 22.4-34.7 [facility] Comment on above: Result Comment: CARDIAC AND PE/DVT THERAPUTIC RANGE 69-97 SEC VASCULAR/THREATENED LIMB THERAPUTIC RANGE 80-112 SEC Performed By: #### P T #### Testing performed at [address] [address] US DUPLEX EXTREMITY DVT LEFT on 07-23-2024 US DUPLEX EXTREMITY DVT LEFT EXAMINATION: US DUPLEX EXTREMITY DVT LEFT 07/23/2024. HISTORY: Left arm pain after having an IV. COMPARISON: None. TECHNIQUE: Venous duplex examination performed using B-mode, color flow and spectral analysis. FINDINGS: There is echogenic material within the left cephalic vein and the vein is not compressible. The patient also does not demonstrate any color Doppler flow on color Doppler evaluation. The visualized portions of the left internal jugular vein, subclavian vein, axillary vein, brachial vein and basilic vein appear patent and demonstrate normal color flow and are compressible. Incidental note is made of an ovoid 1.2 cm hypoechoic nodule within the visualized left lobe of the thyroid gland. IMPRESSION: 1. There are sonographic findings compatible with a deep venous thrombus within the left cephalic vein. The other visualized veins of the left upper extremity appear patent. 2. There is a 1.2 cm hypoechoic nodule incidentally noted within the visualized left lobe of the thyroid gland. If this has not been previously evaluated with a thyroid ultrasound, then an outpatient thyroid ultrasound should be obtained for a more definitive evaluation of this finding and the remainder of the thyroid. Normal [facility] US.doppler Extremity vessels - lefton 07-23-2024 IMPRESSION: 1. There are sonographic findings compatible with a deep venous thrombus within the left cephalic vein. The other visualized veins of the left upper extremity appear patent. 2. There is a 1.2 cm hypoechoic nodule incidentally noted within the visualized left lobe of the thyroid gland. If this has not been previously evaluated with a thyroid ultrasound, then an outpatient thyroid ultrasound should be obtained for a more definitive evaluation of this finding and the remainder of the thyroid. RADIOLOGY EXAMINATION: US DUPLEX EXTREMITY DVT LEFT 07/23/2024. HISTORY: Left arm pain after having an IV. COMPARISON: None. TECHNIQUE: Venous duplex examination performed using B-mode, color flow and spectral analysis. FINDINGS: There is echogenic material within the left cephalic vein and the vein is not compressible. The patient also does not demonstrate any color Doppler flow on color Doppler evaluation. The visualized portions of the left internal jugular vein, subclavian vein, axillary vein, brachial vein and basilic vein appear patent and demonstrate normal color flow and are compressible. Incidental note is made of an ovoid 1.2 cm hypoechoic nodule within the visualized left lobe of the thyroid gland. RADIOLOGY Tyler, Gwendolyn Soriano - 07/23/2024 EXAMINATION: US DUPLEX EXTREMITY DVT LEFT 07/23/2024. HISTORY: Left arm pain after having an IV. COMPARISON: None. TECHNIQUE: Venous duplex examination performed using B-mode, color flow and spectral analysis. FINDINGS: There is echogenic material within the left cephalic vein and the vein is not compressible. The patient also does not demonstrate any color Doppler flow on color Doppler evaluation. The visualized portions of the left internal jugular vein, subclavian vein, axillary vein, brachial vein and basilic vein appear patent and demonstrate normal color flow and are compressible. Incidental note is made of an ovoid 1.2 cm hypoechoic nodule within the visualized left lobe of the thyroid gland. IMPRESSION IMPRESSION: 1. There are sonographic findings compatible with a deep venous thrombus within the left cephalic vein. The other visualized veins of the left upper extremity appear patent. 2. There is a 1.2 cm hypoechoic nodule incidentally noted within the visualized left lobe of the thyroid gland. If this has not been previously evaluated with a thyroid ultrasound, then an outpatient thyroid ultrasound should be obtained for a more definitive evaluation of this finding and the remainder of the thyroid. [facility] Radiology Study observation (narrative) [facility] US.doppler Extremity vessels - leftOrdered By: Eusebio Vasquez on 07-23-2024 [facility] Work Phone: ED Prov Noteon 07-21-2024 ED Prov Note ED PROVIDER NOTE [facility] EMERGENCY DEPARTMENT NAME: Becki Jackson AGE: 34 y.o. : 1990 VISIT DATE: 07/21/2024 CSN: [id number] PCP: María Hernandez MD Chief Complaint Patient presents with Arm Pain Chief complaint: Concerned about possible blood clot. History of chief complaint: This 34-year-old female presents to ER stating that she was seen at another hospital on Wednesday for abdominal pain. While there she had an IV in her left antecubital area and received several medications including morphine, Zofran, Benadryl and an additional medication? Through the IV. Afterwards she began to experience some tenderness in the antecubital area and the pain has progressed proximally up to the mid arm. Patient concerned about a possible clot. Past Medical History: Diagnosis Date Bipolar 1 disorder (HCC) Gastroparesis Past Surgical History: Procedure Laterality Date CHOLECYSTECTOMY ORTHOPEDIC SURGERY TONSILLECTOMY TUBAL LIGATION History reviewed. No pertinent family history. Social History Socioeconomic History Marital status: Tobacco Use Smoking status: Former Types: Cigarettes Smokeless tobacco: Former Types: Chew Vaping Use Vaping status: Every Day Substances: Nicotine, Flavoring Substance and Sexual Activity Alcohol use: Never Drug use: Never Previous Medications Medication Sig gabapentin (NEURONTIN) 300 MG capsule Take 1 (one) capsule (300 mg total) by mouth 3 (three) times a day . metoclopramide (REGLAN) 10 MG tablet Take 1 (one) tablet (10 mg total) by mouth 4 (four) times a day with meals and nightly for 4 days . paliperidone (INVEGA) 3 MG 24 hr tablet Take 1 (one) tablet (3 mg total) by mouth daily . traZODone (DESYREL) 50 MG tablet Take 1 (one) tablet to 2 (two) tablets (50-100 mg total) by mouth at bedtime . Allergies Allergen Reactions Amoxil [Amoxicillin] Iodine And Iodide Containing Products GI Intolerance Penicillins Sulfa (Sulfonamide Antibiotics) Review of Systems Constitutional: Negative. Negative for fever. HENT: Negative. Eyes: Negative. Respiratory: Negative. Cardiovascular: Negative. Gastrointestinal: Negative. Endocrine: Negative. Genitourinary: Negative. Musculoskeletal: Negative. Skin: Patient complains of tenderness in palpable area under the skin extending from the left antecubital area midway up the arm. Allergic/Immunologic: Negative. Neurological: Negative. Hematological: Negative. Psychiatric/Behaviora l: Negative. All other systems reviewed and are negative. Patient Vitals for the past 24 hrs: BP Temp Temp src Pulse Resp SpO2 Height Weight 07/21/24 2044 123/83 97 degrees F (36.1 degrees C) Oral (!) 110 16 97 % 5' 5 99.8 kg (220 lb) Physical Exam Vitals and nursing note reviewed. Musculoskeletal: General: Normal range of motion. Skin: General: Skin is warm and dry. Capillary Refill: Capillary refill takes less than 2 seconds. Comments: There is tenderness with a deeper palpable cord extending from the left antecubital area midway up the arm there is very minimal erythema. No obvious cellulitis. Neurological: General: No focal deficit present. Mental Status: She is oriented to person, place, and time. Psychiatric: Mood and Affect: Mood normal. Behavior: Behavior normal. Laboratory & Radiographic Imaging (if done): Results for orders placed or performed during the hospital encounter of 07/21/24 POC CBC and Differential Result Value Ref Range WBC 8.33 4.50 - 11.00 K/mcL RBC 4.17 4.00 - 5.20 M/mcL Hemoglobin 12.4 12.0 - 16.0 g/dL Hematocrit 37.5 36.0 - 46.0 % MCV 89.9 80.0 - 100.0 fL MCH 29.7 26.0 - 34.0 pg MCHC 33.1 31.0 - 37.0 g/dL RDW - CV 13.6 11.6 - 14.8 % Platelets 286 150 - 400 K/mcL MPV 8.7 (L) 9.4 - 12.4 fL Neutrophils 70.7 % Lymphocytes 18.4 % Monocytes 6.8 % Eosinophils 2.9 % Basophils 0.5 % IG Percent 0.70 % Neutrophils Abs 5.89 1.70 - 7.00 K/mcL Lymphocytes Abs 1.53 0.90 - 4.00 K/mcL Monocytes Abs 0.57 0.30 - 0.90 K/mcL Eosinophils Abs 0.24 0.00 - 0.50 K/mcL Basophils Abs 0.04 0.00 - 0.30 K/mcL IG Absolute 0.06 0.00 - 0.30 K/mcL POC Basic Metabolic Panel Result Value Ref Range Glucose 105 (H) 65 - 99 mg/dL BUN 23 8 - 25 mg/dL Creatinine 0.90 0.40 - 1.10 mg/dL GFR 87 >=60 mL/min/1.73 m2 Sodium 140 135 - 145 mmol/L Potassium 4.1 3.5 - 5.1 mmol/L Chloride 107 98 - 108 mmol/L TCO2 24 21 - 32 mmol/L Ionized Calcium 4.6 4.5 - 5.3 mg/dL POC D-dimer Result Value Ref Range POC D-Dimer 205 <350 ng/mL DDU No orders to display Procedures Medical Decision Making Patient concerned about possible blood clot in arm. Patient had peripheral IV with several medications few days ago and would suspect that she may have some superficial phlebitis from irritation secondary to medications. There is no significant erythema would not suspect infection/cellulitis. D-dimer also negat (more content not included)... Normal [facility] POC BASIC METABOLIC PANEL - [facility] Chloride [Moles/Vol] 107 mmol/L Normal 98-108 [facility] Comment on above: Order Comment: [facility] has implemented the eGFR calculation approach that does not have a coefficient for race that conforms to the NKF-ASN Task Force Recommendations. Performed By: #### P [id number] #### ONED FSED POCT LAB [address], [place] [address] Rahul Prince D.O. [id number] CO2 [Moles/Vol] 24 mmol/L Normal 21-32 [facility] Comment on above: Order Comment: [facility] has implemented the eGFR calculation approach that does not have a coefficient for race that conforms to the NKF-ASN Task Force Recommendations. Performed By: #### P [id number] #### ONED FSED POCT LAB [address] [id number] Rahul Prince D.O. [id number] Creatinine [Mass/Vol] 0.90 mg/dL Normal 0.40-1.10 [facility] Comment on above: Order Comment: [facility] has implemented the eGFR calculation approach that does not have a coefficient for race that conforms to the NKF-ASN Task Force Recommendations. Performed By: #### P [id number] #### ONED FSED POCT LAB [address] [address] Rahul Prince D.O. [id number] Glucose [Mass/Vol] 105 mg/dL High 65-99 [facility] Comment on above: Order Comment: [facility] has implemented the eGFR calculation approach that does not have a coefficient for race that conforms to the NKF-ASN Task Force Recommendations. Performed By: #### P [id number] #### ONED FSED POCT LAB [address] [address] Rahul Prince D.O. [id number] POC GFR 87 mL/min/1.73 m2 Normal >=60 [facility] Comment on above: Order Comment: [facility] has implemented the eGFR calculation approach that does not have a coefficient for race that conforms to the NKF-ASN Task Force Recommendations. Result Comment: Jeremy mated GFR was calculated using the 2020 CKD-EPI creatinine equation. Performed By: #### P [id number] #### ONED FSED POCT LAB [address] [address] Rahul Prince D.O. [id number] POC IONIZED CALCIUM 4.6 mg/dL Normal 4.5-5.3 [facility] Comment on above: Order Comment: [facility] has implemented the eGFR calculation approach that does not have a coefficient for race that conforms to the NKF-ASN Task Force Recommendations. Performed By: #### P [id number] #### ONED FSED POCT LAB [address] [address] Judi BarbaOBette [id number] Potassium [Moles/Vol] 4.1 mmol/L Normal 3.5-5.1 [facility] Comment on above: Order Comment: [facility] has implemented the eGFR calculation approach that does not have a coefficient for race that conforms to the NKF-ASN Task Force Recommendations. Performed By: #### P [id number] #### ONED FSED POCT LAB [address] [address] Judi BarbaOBette [id number] Sodium [Moles/Vol] 140 mmol/L Normal 135-145 [facility] Comment on above: Order Comment: [facility] has implemented the eGFR calculation approach that does not have a coefficient for race that conforms to the NKF-ASN Task Force Recommendations. Performed By: #### P [id number] #### ONED FSED POCT LAB [address] [address] Judi BarbaOBette [id number] Urea nitrogen [Mass/Vol] 23 mg/dL Normal 8-25 [facility] Comment on above: Order Comment: [facility] has implemented the eGFR calculation approach that does not have a coefficient for race that conforms to the NKF-ASN Task Force Recommendations. Performed By: #### P [id number] #### ONED FSED POCT LAB [address] [address] Judi BarbaOBette [id number] POC CBC AND DIFFERENTIALon 0 07-21-2024 BASOPHILS ABSOLUTE COUNT 0.04 K/mcL Normal 0.00-0.30 [facility] Comment on above: Performed By: #### 4 [id number] #### ONED FSED POCT LAB [address] [address] Judi BarbaOBette [id number] Basophils/100 WBC (Bld) 0.5 % Normal [facility] Comment on above: Performed By: #### 4 [id number] #### ONED FSED POCT LAB [address] [address] Rahul Prince D.O. [id number] Eosinophils (Bld) [#/Vol] 0.24 10*3/uL Normal 0.00-0.50 [facility] Comment on above: Performed By: #### 4 [id number] #### ONED FSED POCT LAB [address] [address] Rahul Prince D.O. [id number] Eosinophils/100 WBC (Bld) 2.9 % Normal [facility] Comment on above: Performed By: #### 4 [id number] #### ONED FSED POCT LAB [address] [address] Rahul Prince D.O. [id number] Erythrocyte distribution width (RBC) [Ratio] 13.6 % Normal 11.6-14.8 [facility] Comment on above: Performed By: #### 4 [id number] #### ONED FSED POCT LAB [address] [address] Rahul Prince D.O. [id number] Hematocrit (Bld) [Volume fraction] 37.5 % Normal 36.0-46.0 [facility] Comment on above: Performed By: #### 4 [id number] #### ONED FSED POCT LAB [address] [address] Rahul Prince D.O. [id number] Hemoglobin (Bld) [Mass/Vol] 12.4 g/dL Normal 12.0-16.0 [facility] Comment on above: Performed By: #### 4 [id number] #### ONED FSED POCT LAB [address] [address] Rahul Prince D.O. [id number] IG ABSOLUTE 0.06 K/mcL Normal 0.00-0.30 [facility] Comment on above: Performed By: #### 4 [id number] #### ONED FSED POCT LAB [address] [address] Rahul Prince D.O. [id number] IG PERCENT 0.70 % Normal [facility] Comment on above: Result Comment: The IG parameter is the percentage of metamyelocytes, myelocytes and promyelocytes. An immature granulocyte count (IG) of 1% or more suggests the possibility of infection, an IG count of 3% is very likely related to an infection. Performed By: #### 4 [id number] #### ONED FSED POCT LAB [address] [address] Rahul Prince D.O. [id number] Lymphocytes (Bld) [#/Vol] 1.53 10*3/uL Normal 0.90-4.00 [facility] Comment on above: Performed By: #### 4 [id number] #### ONED FSED POCT LAB [address] [address] Rahul Prince D.O. [id number] Lymphocytes/100 WBC (Bld) 18.4 % Normal [facility] Comment on above: Performed By: #### 4 [id number] #### ONED FSED POCT LAB [address] [address] Rahul Prince D.O. [id number] MCH (RBC) [Entitic mass] 29.7 pg Normal 26.0-34.0 [facility] Comment on above: Performed By: #### 4 [id number] #### ONED FSED POCT LAB [address] [address] Rahul Prince D.O. [id number] MCV (RBC) [Entitic vol] 89.9 fL Normal 80.0-100.0 [facility] Comment on above: Performed By: #### 4 [id number] #### ONED FSED POCT LAB [address] [address] Rahul Prince D.O. [id number] MEAN CORPUSCULAR HEMOGLOBIN CONC 33.1 g/dL Normal 31.0-37.0 [facility] Comment on above: Performed By: #### 4 8111 #### ONED FSED POCT LAB [address] [address] Rahul Prince D.O. [id number] Monocytes (Bld) [#/Vol] 0.57 10*3/uL Normal 0.30-0.90 [facility] Comment on above: Performed By: #### 4 8123 #### ONED FSED POCT LAB [address] [address] Rahul Prince, D.O. [id number] Monocytes/100 WBC (Bld) 6.8 % Normal [facility] Comment on above: Performed By: #### 4 [id number] #### ONED FSED POCT LAB [address] [address] Rahul Niki, D.O. [id number] NEUTROPHILS ABSOLUTE COUNT 5.89 K/mcL Normal 1.70-7.00 [facility] Comment on above: Performed By: #### 4 [id number] #### ONED FSED POCT LAB [address] [address] Rahul Niki, D.O. [id number] Neutrophils/100 WBC (Bld) 70.7 % Normal [facility] Comment on above: Performed By: #### 4 [id number] #### ONED FSED POCT LAB [address] [id number] Rahul Niki, D.O. [id number] Platelet mean volume (Bld) [Entitic vol] 8.7 fL Low 9.4-12.4 [facility] Comment on above: Performed By: #### 4 [id number] #### ONED FSED POCT LAB [address] [address] Rahul Niki, D.O. [id number] Platelets (Bld) [#/Vol] 286 10*3/uL Normal 150-400 [facility] Comment on above: Performed By: #### 4 8123 #### ONED FSED POCT LAB [address] [address] Rahul Niki, D.O. [id number] RBC (Bld) [#/Vol] 4.17 10*6/uL Normal 4.00-5.20 [facility] Comment on above: Performed By: #### 4 [id number] #### ONED FSED POCT LAB [address] [id number] Rahul Prince D.O. [id number] WBC (Bld) [#/Vol] 8.33 10*3/uL Normal 4.50-11.00 [facility] Comment on above: Performed By: #### 4 8123 #### ONED FSED POCT LAB [address] [id number] Rahul Prince D.O. [id number] POC D-DIMER [facility] 4 POC D-DIMER 205 ng/mL DDU Normal <350 [facility] Comment on above: Order Comment: A D-D aric concentration of <350 ng/mL DDU is considered a low probability for pulmonary embolism (PE) and deep venous thrombosis (DVT). Results of this test should always be interpreted in conjunction with the patient's medical history, clinical presentation, and other findings. Clinical diagnosis should not be based on the results of the D-dimer alone. The above D-dimer cutoff pertains to its use for the exclusion of DVT or PE. The range associated with other clinical conditions (e.g. sepsis) has not been validated for this method. 90% of normal patients are less than 400 ng/ml. Performed By: #### 4 [id number] #### ONED FSED POCT LAB [address] [id number] Rahul Prince D.O. [id number] 12 Lead EKGon 07-18-[address] [facility] [address] [place] [address] 12 Lead EKG 07/18/24 1135 MR#: [id number] Acct: [id number] Name: BECKI JACKSON Rep #: [id number] : 1990 34 From: Claire Gonzalez MD Attending Dr: Status: DEP ER Ordering Dr: Inocencio Ruiz MD Date: 07/18/24 Location: ED Sex: F C Admitted: Test Reason : ABD PAIN Blood Pressure : / mmHG Vent. Rate : 095 BPM Atrial Rate : 095 BPM P-R Int : 124 ms QRS Dur : 090 ms QT Int : 360 ms P-R-T Axes : 044 061 044 degrees QTc Int : 452 ms Normal sinus rhythm Normal ECG Confirmed by Claire Gonzalez ([id number]), editor in chief CHRISTY SOOD ([id number]) on 07/19/2024 10:25:58 AM Referred By: Confirmed By:Claire Gonzalez 07/19/24 1026 Date Claire Gonzalez MD CC: Dr. Inocencio Ruiz MD; Dr. María Hernandez MD Signed Normal [facility] Abdomen/Pelvis W IV Cont ONL Yon 07-18-2024 Abdomen/Pelvis W IV Cont ONLY [facility] Imaging Services [address] [place] [address] Abdomen/Pelvis W IV Cont ONLY MR#: [id number] Acct: [id number] Name: BECKI JACKSON Rep #: [id number] : 1990 F 34 From: Robert guo MD PCP: Dr. María Hernandez MD Status: REG ER Study: Abdomen/Pelvis W IV Cont ONLY Date of Exam: Exam# [id number] Ordering Dr: Inocencio Ruiz MD [id number] STUDY: CT ABDOMEN AND PELVIS WITH CONTRAST REASON FOR EXAM: Female, 34 years old. Abd pain. Pre-treat due to IV contrast allergy RADIATION DOSAGE (If Supplied By Facility): CTDIvol = ( 18.69 ) mGy, DLP = ( 1366.87 ) mGycm TECHNIQUE: Transaxial images were obtained from the dome of the diaphragm to the symphysis pubis without oral contrast. IV 100mL Isovue-370 was administered. Sagittal and coronal images were reconstructed. Individualized dose optimization techniques were used for this CT. COMPARISON: Comparison is made with prior study January 13, 2024. FINDINGS: The visualized lung bases are unremarkable. The visualized portions of the heart are within normal limits. Normal liver. There are surgical clips in the gallbladder fossa consistent with a prior cholecystectomy. Normal spleen. Normal pancreas. Normal bilateral adrenal glands. Normal right kidney. Normal left kidney. Normal visualized stomach. Normal small intestine. There are scattered colonic diverticula consistent with diverticulosis. The appendix is visualized and appears normal. Normal abdominal aorta. Normal inferior vena cava. Normal retroperitoneum. Normal urinary bladder. Normal abdominal wall. There are mild degenerative changes of the visualized lumbar spine. CT/Abdomen/Pelvis W IV Cont ONLY IMPRESSION: Status post cholecystectomy. Scattered sigmoid diverticula. Electronically Signed: Robert Tang MD at 12:45 EDT Reading Location ID and State: [address] [place] [address] , Service support , CC: Dr. Inocencio Ruiz MD; Dr. María Hernandez MD R Developer: Signed Normal [facility] Amylaseon 07-18-2023 EMMANUELLE 52 U/L Normal 25-115 [facility] Comment on above: Performed By: #### L 501.2400, L100.0100, L700.6800, L501.2450, L500.4050 ####[facility] [id number] [place], [place], [id number] CBC W/Diff, Automatedon 06-26 Absolute Lymph 1.08 X10 3/uL Normal 0.83-4.51 [facility] Comment on above: Performed By: #### L 501.2400, L100.0100, L700.6800, L501.2450, L500.4050 #### [facility] [address] [place], [place], [id number] (474) Absolute Neut 5.1 X10 3/uL Normal 2.0-7.7 [facility] Comment on above: Performed By: #### L 501.2400, L100.0100, L700.6800, L501.2450, L500.4050 #### [facility] [address] [place], [address] Basophils/100 WBC (Bld) 0.4 % Normal 0-[address] [facility] Comment on above: Performed By: #### L 501.2400, L100.0100, L700.6800, L501.2450, L500.4050 #### [facility] [address] [place], [address] Eosinophils/100 WBC (Bld) 2.2 % Normal 0-5 [facility] Comment on above: Performed By: #### L 501.2400, L100.0100, L700.6800, L501.2450, L500.4050 #### [facility] [address] [place], [address] Erythrocyte distribution width (RBC) [Ratio] 13.6 % Normal 11.6-14.6 [facility] Comment on above: Performed By: #### L 501.2400, L100.0100, L700.6800, L501.2450, L500.4050 #### [facility] [address] [place], [address] Hematocrit (Bld) [Volume fraction] 41.0 % Normal 37-47 [facility] Comment on above: Performed By: #### L 501.2400, L100.0100, L700.6800, L501.2450, L500.4050 #### [facility] [address] [place], [address] Hemoglobin (Bld) [Mass/Vol] 13.2 g/dL Normal 12.0-15.0 [facility] Comment on above: Performed By: #### L 501.2400, L100.0100, L700.6800, L501.2450, L500.4050 #### [facility] [address] [place], [address] IG% 0.700 Normal 0.0-0.9 [facility] Comment on above: Result Comment: IG% - Immature Granulocytes (promyelocytes, myelocytes and metamyelocytes) > 1% indicates that a LEFT SHIFT is Present. Performed By: #### L 501.2400, L100.0100, L700.6800, L501.2450, L500.4050 #### [facility] [address] [place], [address] Lymphocytes/100 WBC (Bld) 16.0 % Low 19-41 [facility] Comment on above: Performed By: #### L 501.2400, L100.0100, L700.6800, L501.2450, L500.4050 #### [facility] [address] [place], [address] MCH (RBC) [Entitic mass] 28.9 pg Normal 27.0-32.0 [facility] Comment on above: Performed By: #### L 501.2400, L100.0100, L700.6800, L501.2450, L500.4050 #### [facility] [address] [place], [address] MCHC (RBC) [Mass/Vol] 32.2 g/dL Normal 32-36 [facility] Comment on above: Performed By: #### L 501.2400, L100.0100, L700.6800, L501.2450, L500.4050 #### [facility] [address] [place], [address] MCV (RBC) [Entitic vol] 89.9 fL Normal 81-[address] [facility] Comment on above: Performed By: #### L 501.2400, L100.0100, L700.6800, L501.2450, L500.4050 #### [facility] [address] [place], [address] Monocytes/100 WBC (Bld) 5.5 % Normal 0-[address] [facility] Comment on above: Performed By: #### L 501.2400, L100.0100, L700.6800, L501.2450, L500.4050 #### [facility] [address] [place], [address] Neutrophils/100 WBC (Bld) 75.2 % High 47-70 [facility] Comment on above: Performed By: #### L 501.2400, L100.0100, L700.6800, L501.2450, L500.4050 #### [facility] [address] [place], [address] Nucleated RBC (Bld) [#/Vol] 0 10*3/uL Normal 0-5 [facility] Comment on above: Performed By: #### L 501.2400, L100.0100, L700.6800, L501.2450, L500.4050 #### [facility] [address] [place], [address] Platelet mean volume (Bld) [Entitic vol] 8.8 fL Normal 6.2-12.0 [facility] Comment on above: Performed By: #### L 501.2400, L100.0100, L700.6800, L501.2450, L500.4050 #### [facility] [address] [place], [address] Platelets (Bld) [#/Vol] 324 10*3/uL Normal 150-450 [facility] Comment on above: Performed By: #### L 501.2400, L100.0100, L700.6800, L501.2450, L500.4050 #### [facility] [address] [place], [address] RBC (Bld) [#/Vol] 4.56 10*6/uL Normal 4.2-5.4 [facility] Comment on above: Performed By: #### L 501.2400, L100.0100, L700.6800, L501.2450, L500.4050 #### [facility] [address] [place], [address] RDW SD 44.8 fl High 35.1-43.9 [facility] Comment on above: Performed By: #### L 501.2400, L100.0100, L700.6800, L501.2450, L500.4050 #### [facility] [address] [place], [address] WBC (Bld) [#/Vol] 6.7 10*3/uL Normal 4.4-11.0 [facility] Comment on above: Performed By: #### L 501.2400, L100.0100, L700.6800, L501.2450, L500.4050 #### [facility] [address] [place], [address] Comprehensive Metabolic [facility] 07-18-2024 Albumin [Mass/Vol] 3.0 g/dL Low 3.2-5.0 [facility] Comment on above: Performed By: #### L 501.2400, L100.0100, L700.6800, L501.2450, L500.4050 #### [facility] [address] [place], [address] Albumin/Globulin [Mass ratio] 0.9 {ratio} Normal 0.9-2.4 [facility] Comment on above: Performed By: #### L 501.2400, L100.0100, L700.6800, L501.2450, L500.4050 #### [facility] [address] [place], [address] ALK P 89 U/L Normal 45-117 [facility] Comment on above: Performed By: #### L 501.2400, L100.0100, L700.6800, L501.2450, L500.4050 #### [facility] [address] [place], [address] ALT [Catalytic activity/Vol] 49 U/L Normal 13-56 [facility] Comment on above: Performed By: #### L 501.2400, L100.0100, L700.6800, L501.2450, L500.4050 #### [facility] [address] [place], [address] AST [Catalytic activity/Vol] 26 U/L Normal 15-37 [facility] Comment on above: Performed By: #### L 501.2400, L100.0100, L700.6800, L501.2450, L500.4050 #### [facility] [address] [place], [address] Bilirubin [Mass/Vol] 0.30 mg/dL Normal 0.20-1.00 [facility] Comment on above: Result Comment: For patients on eltrombopag therapy, use of Dimension [place] TBIL is not recommended. Performed By: #### L 501.2400, L100.0100, L700.6800, L501.2450, L500.4050 #### [facility] [address] [place], [address] BUN/CRE 21.0 RATIO High 10-20 [facility] Comment on above: Performed By: #### L 501.2400, L100.0100, L700.6800, L501.2450, L500.4050 #### [facility] [address] [place], [address] CA,Total 8.5 mg/dL Normal 8.5-10.1 [facility] Comment on above: Performed By: #### L 501.2400, L100.0100, L700.6800, L501.2450, L500.4050 #### [facility] [address] [place], [address] Chloride [Moles/Vol] 109 mmol/L High 98-107 [facility] Comment on above: Performed By: #### L 501.2400, L100.0100, L700.6800, L501.2450, L500.4050 #### [facility] [address] [place], [address] CO2 [Moles/Vol] 27.0 mmol/L Normal 21.0-32.0 [facility] Comment on above: Performed By: #### L 501.2400, L100.0100, L700.6800, L501.2450, L500.4050 #### [facility] [address] [place], [address] Creatinine [Mass/Vol] 0.81 mg/dL Normal 0.55-1.02 [facility] Comment on above: Result Comment: The validity of the calculated GFR GFRAA in patients over 70 years has not been determined. Clinical correlation is essential. Performed By: #### L 501.2400, L100.0100, L700.6800, L501.2450, L500.4050 #### [facility] [address] [place], [address] ECRCL 120.39 ml/min Normal [facility] Comment on above: Performed By: #### L 501.2400, L100.0100, L700.6800, L501.2450, L500.4050 #### [facility] [address] [place], [address] EST GFR - AA 105 mL/min Normal >60 [facility] Comment on above: Result Comment: Afri can [place] GFR Calc Performed By: #### L 501.2400, L100.0100, L700.6800, L501.2450, L500.4050 #### [facility] [address] [place], [address] GAP 4 Low 5-15 [facility] Comment on above: Performed By: #### L 501.2400, L100.0100, L700.6800, L501.2450, L500.4050 #### [facility] [address] [place], [address] GFR/1.73 sq M.predicted among non-blacks MDRD (S/P/Bld) [Vol rate/Area] 87 mL/min/{1.73_m2} Normal >60 [facility] Comment on above: Result Comment: Non- GFR Calc Performed By: #### L 501.2400, L100.0100, L700.6800, L501.2450, L500.4050 #### [facility] [address] [place], [address] Globulin (S) [Mass/Vol] 3.5 g/dL Normal 2.2-4.[address] [facility] Comment on above: Performed By: #### L 501.2400, L100.0100, L700.6800, L501.2450, L500.4050 #### [facility] [address] [place], [address] Glucose [Mass/Vol] 125 mg/dL High 74-106 [facility] Comment on above: Result Comment: Fast ing Glucose result from 100 to 125 mg/dL suggests IMPAIRED HOMEOSTASIS per A.D.A. criteria. Performed By: #### L 501.2400, L100.0100, L700.6800, L501.2450, L500.4050 #### [facility] [address] [place], [address] Potassium [Moles/Vol] 3.7 mmol/L Normal 3.5-5.1 [facility] Comment on above: Performed By: #### L 501.2400, L100.0100, L700.6800, L501.2450, L500.4050 #### [facility] [address] [place], [address] Sodium [Moles/Vol] 140 mmol/L Normal 136-145 [facility] Comment on above: Performed By: #### L 501.2400, L100.0100, L700.6800, L501.2450, L500.4050 #### [facility] [address] [place], [address] T PROT 6.5 g/dL Normal 6.4-8.2 [facility] Comment on above: Performed By: #### L 501.2400, L100.0100, L700.6800, L501.2450, L500.4050 #### [facility] [address] [place], [address] Urea nitrogen [Mass/Vol] 17 mg/dL Normal 7-18 [facility] Comment on above: Performed By: #### L 501.2400, L100.0100, L700.6800, L501.2450, L500.4050 #### [facility] [address] [place], [address] Emergency Department Summary on 07-18-2024 Emergency Department Summary [facility] Medical Records Department [address] [place] [address] Emergency Department Summary 07/18/24 MR#: [id number] Acct: [id number] Name: BECKI JACKSON Rep #: [id number] : 1990 34 From: Inocencio Ruiz MD PCP: Dr. María Hernandez MD Status:REG ER Location: ED HPI HPI - GI History of Present Illness Chief Complaint: Abd Pain Informant: patient Abdominal Pain/Flank Pain Onset: Today and Yesterday Context: Gradual Onset Timing: Continuous Quality: Cramping and Sharp Location: Diffuse Current Severity: Moderate Maximum Severity: Moderate Worsened by: Nothing Relieved by: Nothing Nausea/Vomiting/Emesi s GI Symptom: Negative for Nausea Diarrhea/Melena/Hemat ochezia GI Symptom: Positive for Diarrhea; Negative for Melena or Hematochezia Associated Symptoms Associated Symptoms: Negative for Dysuria, Frequency, Hematuria or Urgency Narrative Narrative: 34-year-old female history of prior cholecystectomy, tubal ligation and gastroparesis. History of GI problems. States yesterday around 6 PM she started having diffuse abdominal pain. Denies any fever. Mild constipation. No diarrhea or vomiting. No dysuria. No vaginal bleeding or discharge. Nothing particularly makes the pain better or worse. Prior similar symptoms: Yes Recent Illness/Hospitalizati on: No PFSH PFS Medical History Right ankle sprain Right ankle pain Gastroparesis Wears glasses Bipolar disorder Depression Anxiety Alcohol use Arthritis Excessive bleeding Easy bruising Restless legs Back pain Migraine headache Seizures Loss of consciousness Diarrhea Nausea Gastric reflux Asthma Smoker Leg cramps Home Medications ???Medication ???Instructions ???Recorded ???Last Taken ???Type gabapentin 300 mg capsule 300 mg PO BID 03/12/24 Unknown History paliperidone 3 mg tablet,extended 3 mg PO DAILY 03/12/24 Unknown History release 24 hr folic acid 400 mcg tablet 0.4 mg PO DAILY 07/18/24 Unknown History furosemide 20 mg tablet 20 mg PO DAILY PRN edema 07/18/24 Unknown History hydroxyzine HCl 25 mg tablet 25 mg PO Q8H PRN PRN itch 07/18/24 Unknown History metoclopramide HCl 10 mg tablet 10 mg PO 5X/DAY 07/18/24 Unknown History trazodone 50 mg tablet 50 mg PO QHS 07/18/24 Unknown History Allergy/AdvReac Type Severity Reaction Status Date / Time Iodinated Contrast Media Allergy Nausea/Vom/ Verified 07/18/24 11:09 (DYEE) Diarrhea Penicillins Allergy Hives Verified 07/18/24 11:09 Sulfa (Sulfonamide Allergy Hives Verified 07/18/24 11:09 Antibiotics) Family History Grandfather Cancer pancreatic Grandfather Cancer unknown Father COPD (chronic obstructive pulmonary disease) Hypertension Mother Diabetes Thyroid disorder Surgical History History of salpingectomy Hx of cholecystectomy H/O knee surgery History of tonsillectomy and adenoidectomy Social History household members: significant other and children Smoking Status: Former smoker quit date: 04/24/23 alcohol intake: never substance use type: does not use ROS ROS ED ROS Narrative Abdominal pain. Constitutional Constitutional ED: Denies chills or fever(s) ENT ENT ED: Denies ear pain Cardiovascular Cardiovascular: Denies chest pain Respiratory/Chest Respiratory/Chest: Denies cough or dyspnea Gastrointestinal Gastrointestinal: Reports abdominal pain and constipation; Denies diarrhea, melena, nausea or vomiting Genitourinary Genitourinary ED: Denies dysuria or hematuria Musculoskeletal Musculoskeletal: Denies arthralgias Integumentary Denies abscess Neurologic Neurologic: Denies headache(s) Psychiatric Psychiatric: Denies anxiety Endocrine Endocrinology: Denies polydipsia Hematologic/Lymphatic Hematologic/Lymphatic : Denies easy bleeding Allergic/Immunologic Allergic/Immunologic ED: Denies mouth swelling EXAM Physical Exam Narrative Exam Narrative: Well-appearing 34-year-old female. Vital signs are stable she is tachycardic initial triage was 140 on my exam at 115. She does not look septic or toxic. She is having discomfort but she is not in no distress. Family is at the bedside. H EENT exam unremarkable. Mytrex membranes. Neck nontender. Lungs clear. Heart tachycardic rate about 115 no murmur. Chest wall ribs nontender. Abdomen fusilli tender. No peritoneal signs. No hernia or mass. No localizing tenderness she is tender all over. No signs of obstruction. No signs of trauma. She has bowel sounds. No masses. Back nontender. Moving all 4 extremities. Nontender no edema. Normal strength. She is awake and alert. (more content not included)... Normal [facility]aseon 07-18-2024 Lipase [Catalytic activity/Vol] 18 U/L Normal 13-75 [facility] Comment on above: Result Comment: Negin morel note: LIPASE revised reference range effective 23. New Lipase methodology. Expected to produce lower values than the previous assay method. NEW Reference Range: 13 - 75 U/L Performed By: #### L 501.2400, L100.0100, L700.6800, L501.2450, L500.4050 ####[facility] [address] [place], [address] ,Serum,hCG Quali.on 07-18-2024 HCG, SERUM QUAL Negative Normal [facility] Comment on above: Performed By: #### L 501.2400, L100.0100, L700.6800, L501.2450, L500.4050 #### [facility] [address] [place], [address] Urinalysis, Completeon 07-18 EPI,SQUAMOUS 5-10 SEEN Normal 5-10 [facility] Comment on above: Order Comment: ELMIRA CTOR TO SPECIFY Performed By: #### L 400.0001 ####[facility] [address] [place], [address] TRICHOMONAS 0-5 SEEN Normal None Seen [facility] Comment on above: Order Comment: ELMIRA CTOR TO SPECIFY Performed By: #### L 400.0001 ####[facility] [address] [place], [address] WBC 0-5 SEEN Normal 0-5 [facility] Comment on above: Order Comment: ELMIRA CTOR TO SPECIFY Performed By: #### L 400.0001 ####[facility] [address] [place], [address] BACTERIA 0 SEEN Normal None Seen [facility] Comment on above: Order Comment: ELMIRA CTOR TO SPECIFY Performed By: #### L 400.0001 ####[facility] [address] [place], [address] Mucus Ql (Urine sed) 0 SEEN Normal [facility] Comment on above: Order Comment: ELMIRA CTOR TO SPECIFY Performed By: #### L 400.0001 ####[facility] [address] [place], [address] RBC 0 SEEN Normal 0-5 [facility] Comment on above: Order Comment: COLLE CTOR TO SPECIFY Performed By: #### L 400.0001 ####[facility] [address] [place], [address] CT ABDOMEN PELVIS WITHOUT CO NTRASTon 07-11-2024 CT ABDOMEN PELVIS WITHOUT CONTRAST EXAMINATION: CT ABDOMEN PELVIS WITHOUT CONTRAST HISTORY: ORDERING SYSTEM PROVIDED HISTORY: Diffuse abdominal pain with bloating x 2 days. History of diabetic gastroparesis, TECHNOLOGIST PROVIDED HISTORY: Illness/Other Reason for exam: Diffuse abdominal pain with bloating x 2 days. History of diabetic gastroparesis Encounter Type: Initial Additional signs and symptoms: n ORDERING SYSTEM PROVIDED DIAGNOSIS CODES: COMPARISON: 12/05/2023 TECHNIQUE: CT examination of the abdomen and pelvis without IV contrast. Coronal and sagittal reformations were performed. Dose reduction techniques were achieved by using automated exposure control and/or adjustment of mA and/or kV according to patient size and/or use of iterative reconstruction technique. FINDINGS: Lung bases are clear. Cholecystectomy is noted. The liver, spleen, pancreas, adrenals and kidneys appear normal on noncontrast CT. No hydronephrosis or urinary tract calculus is demonstrated. No upper abdominal or periaortic adenopathy. Scans of the pelvis show no mass, lymphadenopathy or free fluid. No bladder calculus. The stomach is mildly distended with food, similar to prior, but there is noted some evidence for gastric outlet obstruction. Small bowel loops appear normal. No small bowel obstruction. No free air. Normal appendix. Negative for colitis or diverticulitis. No significant findings. Mild degenerative changes are seen at the L4-5 disc. Bony structures are otherwise unremarkable. IMPRESSION: Mild gastric distension. Otherwise unremarkable study. Workstation ID: [id number] Dictated by: RUDI MORENO on WedJul 11, 2024 5:25:17 PM EDT Transcribed by: RUDI MORENO on WedJul 11, 2024 5:25:17 PM EDT Finalized by: RUDI MORENO on WedJul 11, 2024 5:25:[address] [facility] Comment on above: Order Comment: Injur y/Trauma or Illness?:Illness/Other How long have you had these symptoms (acute/chronic)?:Acute Reason for exam?:Diffuse abdominal pain with bloating x 2 days. ??History of diabetic gastroparesis Type of Exam?:Initial Additional signs and symptoms?:n ED Prov Noteon 07-11-2024 ED Prov Note ED PROVIDER NOTE [facility] EMERGENCY [facility] NAME: Becki Jackson AGE: 34 y.o. : 1990 VISIT DATE: 07/11/2024 CSN: [id number] PCP: No, Physician Chief Complaint Patient presents with Abdominal Pain Chief complaint: Abdominal pain History of chief complaint: This 34-year-old female presents to ER complaining of some diffuse abdominal pain and bloating for the past 2 days. She also admits to some nausea but denies any vomiting, diarrhea, constipation, fever, dysuria. Patient with history of diabetic gastroparesis. She also complains of some shortness of breath over the past day or 2 but denies chest pain. Patient with history of cholecystectomy and tubal ligation. Past Medical History: Diagnosis Date Bipolar 1 disorder (HCC) Gastroparesis Past Surgical History: Procedure Laterality Date CHOLECYSTECTOMY ORTHOPEDIC SURGERY TONSILLECTOMY TUBAL LIGATION History reviewed. No pertinent family history. Social History Socioeconomic History Marital status: Tobacco Use Smoking status: Former Types: Cigarettes Smokeless tobacco: Former Types: Chew Vaping Use Vaping status: Every Day Substances: Nicotine, Flavoring Substance and Sexual Activity Alcohol use: Never Drug use: Never Previous Medications Medication Sig gabapentin (NEURONTIN) 300 MG capsule Take 1 (one) capsule (300 mg total) by mouth 3 (three) times a day . paliperidone (INVEGA) 3 MG 24 hr tablet Take 1 (one) tablet (3 mg total) by mouth daily . traZODone (DESYREL) 50 MG tablet Take 1 (one) tablet to 2 (two) tablets (50-100 mg total) by mouth at bedtime . [DISCONTINUED] traZODone (DESYREL) 50 MG tablet Take 1 (one) tablet to 2 (two) tablets (50-100 mg total) by mouth nightly . Allergies Allergen Reactions Amoxil [Amoxicillin] Iodine And Iodide Containing Products GI Intolerance Penicillins Sulfa (Sulfonamide Antibiotics) Review of Systems Constitutional: Negative. Negative for fever. HENT: Negative. Eyes: Negative. Respiratory: Negative. Cardiovascular: Negative. Gastrointestinal: Positive for abdominal pain and nausea. Negative for constipation, diarrhea, rectal pain and vomiting. Diffuse abdominal pain and bloating. Endocrine: Negative. Genitourinary: Negative. Musculoskeletal: Negative. Allergic/Immunologic: Negative. Neurological: Negative. Hematological: Negative. Psychiatric/Behaviora l: Negative. All other systems reviewed and are negative. Patient Vitals for the past 24 hrs: BP Temp Temp src Pulse Resp SpO2 Height Weight 07/11/24 1615 131/86 98.1 degrees F (36.7 degrees C) Oral (!) 109 18 98 % 5' 5 99.8 kg (220 lb) Physical Exam Vitals and nursing note reviewed. Constitutional: General: She is not in acute distress. Appearance: She is well-developed. She is not ill-appearing, toxic-appearing or diaphoretic. HENT: Head: Normocephalic and atraumatic. Nose: Nose normal. Cardiovascular: Rate and Rhythm: Normal rate and regular rhythm. Pulses: Normal pulses. Heart sounds: Normal heart sounds. Musculoskeletal: General: Normal range of motion. Cervical back: Normal range of motion and neck supple. Pulmonary: Effort: Pulmonary effort is normal. Breath sounds: Normal breath sounds. Abdominal: General: Abdomen is flat. Comments: There is some mild tenderness to palpation throughout the abdomen increased on the right side. No rebound, rigidity, mass. Bowel sounds slightly decreased with a minimal distention. Skin: General: Skin is warm and dry. Capillary Refill: Capillary refill takes less than 2 seconds. Neurological: General: No focal deficit present. Mental Status: She is alert and oriented to person, place, and time. Psychiatric: Mood and Affect: Mood normal. Behavior: Behavior normal. Laboratory & Radiographic Imaging (if done): Results for orders placed or performed during the hospital encounter of 07/11/24 POC CBC and Differential Result Value Ref Range WBC 6.65 4.50 - 11.00 K/mcL RBC 4.13 4.00 - 5.20 M/mcL Hemoglobin 12.3 12.0 - 16.0 g/dL Hematocrit 37.9 36.0 - 46.0 % MCV 91.8 80.0 - 100.0 fL MCH 29.8 26.0 - 34.0 pg MCHC 32.5 31.0 - 37.0 g/dL RDW - CV 13.8 11.6 - 14.8 % Platelets 289 150 - 400 K/mcL MPV 8.7 (L) 9.4 - 12.4 fL Neutrophils 68.4 % Lymphocytes 20.0 % Monocytes 8.4 % Eosinophils 2.4 % Basophils 0.5 % IG Percent 0.30 % Neutrophils Abs 4.55 1.70 - 7.00 K/mcL Lymphocytes Abs 1.33 0.90 - 4.00 K/mcL Monocytes Abs 0.56 0.30 - 0.90 K/mcL Eosinophils Abs 0.16 0.00 - 0.50 K/mcL Basophils Abs 0.03 0.00 - 0.30 K/mcL IG Absolute 0.02 0.00 - 0.30 K/mcL POC Urinalysis Dipstick, Auto Result Value Ref Range Spec Grav, UA 1.020 1.005 - 1.025 pH, UA 7.0 5.0 - 7.0 Protein, UA Negative Negative mg/dL Glucose, UA Negative Negative mg/dL Ketones, UA Negative Negative mg/dL Bilirubin, UA Negative Negative Urobilinogen, UA 0.2 <2.0 mg/dL (more content not included)... Normal [facility] POC BASIC METABOLIC PANEL [facility] 07-11-2024 Chloride [Moles/Vol] 106 mmol/L Normal 98-108 [facility] Comment on above: Order Comment: [facility] has implemented the eGFR calculation approach that does not have a coefficient for race that conforms to the NKF-ASN Task Force Recommendations. Performed By: #### P [id number] #### [facility] [address] [address] Rahul Prince D.O. [id number] CO2 [Moles/Vol] 26 mmol/L Normal 21-32 [facility] Comment on above: Order Comment: [facility] has implemented the eGFR calculation approach that does not have a coefficient for race that conforms to the NKF-ASN Task Force Recommendations. Performed By: #### P [id number] #### [facility] [address] [address] Rahul Prince D.O. [id number] Creatinine [Mass/Vol] 0.71 mg/dL Normal 0.40-1.10 [facility] Comment on above: Order Comment: [facility] has implemented the eGFR calculation approach that does not have a coefficient for race that conforms to the NKF-ASN Task Force Recommendations. Performed By: #### P [id number] #### [facility] [address] [address] Gill Barba.OBette [id number] Glucose [Mass/Vol] 76 mg/dL Normal 65-99 [facility] Comment on above: Order Comment: [facility] has implemented the eGFR calculation approach that does not have a coefficient for race that conforms to the NKF-ASN Task Force Recommendations. Performed By: #### P [id number] #### [facility] [address] [address] Judi BarbaOBette [id number] POC GFR 115 mL/min/1.73 m2 Normal >=60 [facility] Comment on above: Order Comment: [facility] has implemented the eGFR calculation approach that does not have a coefficient for race that conforms to the NKF-ASN Task Force Recommendations. Result Comment: Jeremy mated GFR was calculated using the 2020 CKD-EPI creatinine equation. Performed By: #### P [id number] #### [facility] [address] [address] Judi BarbaOBette [id number] POC IONIZED CALCIUM 4.8 mg/dL Normal 4.5-5.3 [facility] Comment on above: Order Comment: [facility] has implemented the eGFR calculation approach that does not have a coefficient for race that conforms to the NKF-ASN Task Force Recommendations. Performed By: #### P [id number] #### [facility] [address] [address] Gill Barba.OBette [id number] Potassium [Moles/Vol] 3.6 mmol/L Normal 3.5-5.1 [facility] Comment on above: Order Comment: [facility] has implemented the eGFR calculation approach that does not have a coefficient for race that conforms to the NKF-ASN Task Force Recommendations. Performed By: #### P [id number] #### [facility] [address] [address] Rahul Prince D.OBette [id number] Sodium [Moles/Vol] 139 mmol/L Normal 135-145 [facility] Comment on above: Order Comment: [facility] has implemented the eGFR calculation approach that does not have a coefficient for race that conforms to the NKF-ASN Task Force Recommendations. Performed By: #### P [id number] #### [facility] [address] [address] Gill Barba.OBette [id number] Urea nitrogen [Mass/Vol] 14 mg/dL Normal 8-25 [facility] Comment on above: Order Comment: [facility] has implemented the eGFR calculation approach that does not have a coefficient for race that conforms to the NKF-ASN Task Force Recommendations. Performed By: #### P [id number] #### ONED FSED POCT LAB [address] [address] Gill Barba.OBette [id number] POC CBC AND DIFFERENTIALon 0 - BASOPHILS ABSOLUTE COUNT 0.03 K/mcL Normal 0.00-0.30 [facility] Comment on above: Performed By: #### L [id number] #### ONED FSED POCT LAB [address] [address] Rahul Prince D.OBette [id number] Basophils/100 WBC (Bld) 0.5 % Normal [facility] Comment on above: Performed By: #### L [id number] #### ONED FSED POCT LAB [address] [address] Rahul Prince D.O. [id number] Eosinophils (Bld) [#/Vol] 0.16 10*3/uL Normal 0.00-0.50 [facility] Comment on above: Performed By: #### L [id number] #### ONED FSED POCT LAB [address] [address] Rahul Prince D.O. [id number] Eosinophils/100 WBC (Bld) 2.4 % Normal [facility] Comment on above: Performed By: #### L [id number] #### ONED FSED POCT LAB [address] [address] Rahul Prince D.O. [id number] Erythrocyte distribution width (RBC) [Ratio] 13.8 % Normal 11.6-14.8 [facility] Comment on above: Performed By: #### L [id number] #### ONED FSED POCT LAB [address] [address] Rahul Prince D.O. [id number] Hematocrit (Bld) [Volume fraction] 37.9 % Normal 36.0-46.0 [facility] Comment on above: Performed By: #### L [id number] #### ONED FSED POCT LAB [address] [address] Rahul Prince D.O. [id number] Hemoglobin (Bld) [Mass/Vol] 12.3 g/dL Normal 12.0-16.0 [facility] Comment on above: Performed By: #### L [id number] #### ONED FSED POCT LAB [address] [address] Rahul Prince D.O. [id number] IG ABSOLUTE 0.02 K/mcL Normal 0.00-0.30 [facility] Comment on above: Performed By: #### L [id number] #### ONED FSED POCT LAB [address] [address] Rahul Prince D.O. [id number] IG PERCENT 0.30 % Normal [facility] Comment on above: Result Comment: The IG parameter is the percentage of metamyelocytes, myelocytes and promyelocytes. An immature granulocyte count (IG) of 1% or more suggests the possibility of infection, an IG count of 3% is very likely related to an infection. Performed By: #### L [id number] #### ONED FSED POCT LAB [address] [address] Rahul Prince, D.O. [id number] Lymphocytes (Bld) [#/Vol] 1.33 10*3/uL Normal 0.90-4.00 [facility] Comment on above: Performed By: #### L [id number] #### ONED FSED POCT LAB [address] [address] Rahul Prince, D.O. [id number] Lymphocytes/100 WBC (Bld) 20.0 % Normal [facility] Comment on above: Performed By: #### L [id number] #### ONED FSED POCT LAB [address] [address] Rahul Prince, D.O. [id number] MCH (RBC) [Entitic mass] 29.8 pg Normal 26.0-34.0 [facility] Comment on above: Performed By: #### L [id number] #### ONED FSED POCT LAB [address] [address] Rahul Prince, D.O. [id number] MCV (RBC) [Entitic vol] 91.8 fL Normal 80.0-100.0 [facility] Comment on above: Performed By: #### L [id number] #### ONED FSED POCT LAB [address] [address] Rahul Prince, D.O. [id number] MEAN CORPUSCULAR HEMOGLOBIN CONC 32.5 g/dL Normal 31.0-37.0 [facility] Comment on above: Performed By: #### L [id number] #### ONED FSED POCT LAB [address] [address] Rahul Prince, D.O. [id number] Monocytes (Bld) [#/Vol] 0.56 10*3/uL Normal 0.30-0.90 [facility] Comment on above: Performed By: #### L [id number] #### ONED FSED POCT LAB [address] [address] Rahul Prince D.O. [id number] Monocytes/100 WBC (Bld) 8.4 % Normal [facility] Comment on above: Performed By: #### L [id number] #### ONED FSED POCT LAB [address] [address] Rahul Prince, D.O. [id number] NEUTROPHILS ABSOLUTE COUNT 4.55 K/mcL Normal 1.70-7.00 [facility] Comment on above: Performed By: #### L [id number] #### ONED FSED POCT LAB [address] [address] Rahul Prince, D.O. [id number] Neutrophils/100 WBC (Bld) 68.4 % Normal [facility] Comment on above: Performed By: #### L [id number] #### ONED FSED POCT LAB [address] [address] Rahul Prince D.O. [id number] Platelet mean volume (Bld) [Entitic vol] 8.7 fL Low 9.4-12.4 [facility] Comment on above: Performed By: #### L [id number] #### ONED FSED POCT LAB [address] [address] Rahul Prince D.O. [id number] Platelets (Bld) [#/Vol] 289 10*3/uL Normal 150-400 [facility] Comment on above: Performed By: #### L [id number] #### ONED FSED POCT LAB [address] [address] Rahul Prince D.O. [id number] RBC (Bld) [#/Vol] 4.13 10*6/uL Normal 4.00-5.20 [facility] Comment on above: Performed By: #### L [id number] #### ONED FSED POCT LAB [address] [address] Rahul Prince D.O. [id number] WBC (Bld) [#/Vol] 6.65 10*3/uL Normal 4.50-11.00 [facility] Comment on above: Performed By: #### L [id number] #### ONED FSED POCT LAB [address] [address] Rahul Prince D.O. [id number] POC D-DIMER [facility] POC D-DIMER 227 ng/mL DDU Normal <350 [facility] Comment on above: Order Comment: Negat fanny: Dilute urine specimens, as indicated by a low specific gravity (<1.010) may not contain representitive levels of hCG. If is still suspected, a serum test or repeat urine test using a first morning urine specimen should be considered. Performed By: #### 4 [id number] #### ONED FSED POCT LAB [address] [address] Rahul Prince D.O. [id number] POC LIVER PANEL PLUS [facility] 07-11-2024 Albumin [Mass/Vol] 3.1 g/dL Low 3.2-5.2 [facility] Comment on above: Performed By: #### P [id number] #### ONED FSED POCT LAB [address] [address] Rahul Prince D.O. [id number] ALP [Catalytic activity/Vol] 89 U/L Normal 40-140 [facility] Comment on above: Performed By: #### P [id number] #### ONED FSED POCT LAB [address] [id number] Rahul Prince D.O. [id number] ALT [Catalytic activity/Vol] 27 U/L Normal 0-40 [facility] Comment on above: Performed By: #### P [id number] #### ONED FSED POCT LAB [address] [address] Rahul Prince D.O. [id number] Amylase [Catalytic activity/Vol] 48 U/L Normal 25-115 [facility] Comment on above: Performed By: #### P [id number] #### ONED FSED POCT LAB [address] [address] Rahul Prince D.O. [id number] Amylase [Catalytic activity/Vol] 14 U/L Normal 7-33 [facility] Comment on above: Performed By: #### P [id number] #### ONED FSED POCT LAB [address] [address] Rahul Prince D.O. [id number] AST [Catalytic activity/Vol] 19 U/L Normal 0-45 [facility] Comment on above: Performed By: #### P [id number] #### ONED FSED POCT LAB [address] [address] Rahul Prince D.O. [id number] Bilirubin [Mass/Vol] 0.5 mg/dL Normal 0.0-1.3 [facility] Comment on above: Performed By: #### P [id number] #### ONED FSED POCT LAB [address] [address] Rahul Prince D.O. [id number] Protein [Mass/Vol] 6.0 g/dL Normal 6.0-8.0 [facility] Comment on above: Performed By: #### P [id number] #### ONED FSED POCT LAB [address] [address] Rahul Prince D.O. [id number] POC , URINE - RALSo n 07-11-2024 Beta HCG ( test) Ql (U) Negative Normal Negative [facility] Comment on above: Order Comment: Negat fanny: Dilute urine specimens, as indicated by a low specific gravity (<1.010) may not contain representitive levels of hCG. If is still suspected, a serum test or repeat urine test using a first morning urine specimen should be considered. Performed By: #### 4 [id number] #### ONED FSED POCT LAB [address] [address] Rahul Prince D.O. [id number] POC URINALYSIS DIPSTICK,AUTO - RALSon 07-11-2024 POC BILIRUBIN, URINE Negative Normal Negative [facility] Comment on above: Performed By: #### P [id number] #### ONED FSED POCT LAB [address] [address] Rahul Prince D.O. [id number] POC BLOOD, URINE Negative Normal Negative [facility] Comment on above: Performed By: #### P [id number] #### ONED FSED POCT LAB [address] [address] Judi BarbaOBette [id number] POC GLUCOSE, URINE Negative Normal Negative [facility] Comment on above: Performed By: #### P [id number] #### ONED FSED POCT LAB [address] [address] Judi BarbaOBette [id number] POC KETONES, URINE Negative Normal [facility] Comment on above: Performed By: #### P [id number] #### ONED FSED POCT LAB [address] [address] Judi BabraOBette [id number] POC LEUKOCYTE ESTERASE, URINE Negative Normal Negative [facility] Comment on above: Performed By: #### P [id number] #### ONED FSED POCT LAB [address] [address] Judi BarbaOBette [id number] POC NITRITE, URINE Negative Normal Negative [facility] Comment on above: Performed By: #### P [id number] #### ONED FSED POCT LAB [address] [address] Rahul Prince D.O. [id number] POC PH, URINE 7.0 Normal 5.0-7.0 [facility] Comment on above: Performed By: #### P [id number] #### ONED FSED POCT LAB [address] [address] Rahul Prince D.O. [id number] POC PROTEIN, URINE Negative Normal Negative [facility] Comment on above: Performed By: #### P [id number] #### ONED FSED POCT LAB [address] [address] Gill Barba.Tran [id number] POC SPECIFIC GRAVITY 1.020 Normal 1.005-1.025 [facility] Comment on above: Performed By: #### P [id number] #### ONED FSED POCT LAB [address] [address] Gill Barba.OBette [id number] POC UROBILINOGEN 0.2 mg/dL Normal < 2.0 [facility] Comment on above: Performed By: #### P [id number] #### ONED FSED POCT LAB [address] [address] Rahul Prince D.O. [id number] CBC (NO DIFF)on 06-30-2024 CBC panel Auto (Bld) Normal [facility] Comment on above: Result Comment: CBC( WITHOUT DIFFERENTIAL) Performed By: #### 2 [address]20 [address] [id number] Erythrocyte distribution width (RBC) [Ratio] 13.7 % Normal 12.0 - 15.6 [facility] Comment on above: Performed By: #### 2 21406 ####[facility],[address] [place] [address] Hematocrit (Bld) [Volume fraction] 42.5 % Normal 34.0 - 46.0 [facility] Comment on above: Performed By: #### 2 49018 ####[facility],[address] [place] [address]41 Hemoglobin (Bld) [Mass/Vol] 14.5 g/dL Normal 12.0 - 16.0 [facility] Comment on above: Performed By: #### 2 72868 ####[facility],[address] [place] [address] MCH (RBC) [Entitic mass] 30 pg Normal 27 - 33 [facility] Comment on above: Performed By: #### 2 63938 ####[facility],[address] [place] [address] MCHC 34 X10 3 Normal 32 - 36 [facility] Comment on above: Performed By: #### 2 07311 ####[facility],[address] [place], [place] [address] MCV (RBC) [Entitic vol] 89 fL Normal 80 - [address] [facility] Comment on above: Performed By: #### 2 29830 ####[facility],[address] [place] [address] PLATELET 324 x10EE3/UL Normal 150 - 450 [facility] Comment on above: Performed By: #### 2 22048 ####[facility],[address] [place] [address] Platelet mean volume (Bld) [Entitic vol] 7.5 fL Normal 6.6 - 10.5 [facility] Comment on above: Performed By: #### 2 49019 ####[facility],[address] [place], [place] [id number] RBC 4.78 x 10EE6/UL Normal 4.10 - 5.30 [facility] Comment on above: Performed By: #### 2 31224 ####[facility],[address] [place] [address]56[address] WBC 5.9 x 10EE3/UL Normal 4.5 - 10.8 [facility] Comment on above: Performed By: #### 2 30793 ####[facility],[address] [place], [place] [id number] CMP with eGFRon 06-30-2024 AGE 34 years Normal [facility] Comment on above: Performed By: #### 2 93180 #### [facility],[address] [place] [address] 46137 Albumin [Mass/Vol] 3.5 g/dL Normal 3.4 - 5.0 [facility] Comment on above: Performed By: #### 2 00193 #### [facility],[address] [place] [address] 85013 Albumin/Globulin [Mass ratio] 0.9 {ratio} Normal 0.9 - 1.6 [facility] Comment on above: Performed By: #### 2 61934 #### [facility],[address] [place] [address] 19361 ALK PHOS 115 U/L Normal 46 - 116 [facility] Comment on above: Performed By: #### 2 08797 #### [facility],[address] [place] [address] 54006 ALT [Catalytic activity/Vol] 26 U/L Normal 16 - 63 [facility] Comment on above: Performed By: #### 2 26092 #### [facility],[address] [place] [address] 76678 Anion gap [Moles/Vol] 12 mmol/L Normal 10 - 20 [facility] Comment on above: Performed By: #### 2 28857 #### [facility],[address] [place] [address] 78471 AST [Catalytic activity/Vol] 16 U/L Normal 13 - 39 [facility] Comment on above: Performed By: #### 2 82985 #### [facility],[address] [place] [address] 06352 B/C RATIO 17 ratio Normal 0 - 30 [facility] Comment on above: Performed By: #### 2 17561 #### [facility],[address] [place] [address] 24600 Bilirubin [Mass/Vol] 0.4 mg/dL Normal 0.2 - 1.0 [facility] Comment on above: Performed By: #### 2 04654 #### [facility],[address] [place] [address] 03262 Calcium [Mass/Vol] 8.9 mg/dL Normal 8.5 - 10.1 [facility] Comment on above: Performed By: #### 2 44139 #### [facility],[address] [place] [address] 84732 Chloride [Moles/Vol] 104 mmol/L Normal 98 - 107 [facility] Comment on above: Performed By: #### 2 99586 #### [facility],[address] [place] [address] 99472 CMP with eGFR Normal [facility] Comment on above: Result Comment: COMP REHENSIVE METABOLIC PANEL Performed By: #### 2 39628 #### [facility],[address] [place] [address] 66600 CO2 [Moles/Vol] 25.7 mmol/L Normal 21.0 - 32.0 [facility] Comment on above: Performed By: #### 2 67016 #### [facility],[address] [place] [address] 21434 Creatinine [Mass/Vol] 0.90 mg/dL Normal 0.55 - 1.02 [facility] Comment on above: Performed By: #### 2 63082 #### [facility],[address] [place] [address] 67334 GFR/1.73 sq M.predicted among non-blacks MDRD (S/P/Bld) [Vol rate/Area] mL/min/{1.73_m2} Normal 60 - 999 [facility] Comment on above: Performed By: #### 2 04185 #### [facility],[address] [place] [address] 72899 Result Comment: ACCO RDING TO THE NATIONAL KIDNEY DISEASE EDUCATION PROGRAM(NKDE), A NORMAL eGFR IS A VALUE GREATER THAN OR EQUAL TO 60 ML/MIN/1.73 SQ METERS. CHRONIC KIDNEY DISEASE: <60mL/MIN/1.73 SQ METERS KIDNEY FAILURE: <15mL/MIN/1.73 SQ METERS THIS TEST SHOULD ONLY BE USED FOR PATIENTS 18 YEARS OF AGE AND OLDER. Globulin (S) [Mass/Vol] 3.8 g/dL Normal 1.5 - 3.[address] [facility] Comment on above: Performed By: #### 2 02622 #### [facility],[address] [place] [address] 84472 Glucose [Mass/Vol] 74 mg/dL Normal 74 - 106 [facility] Comment on above: Performed By: #### 2 72800 #### [facility],[address] [place] [address] 42995 Potassium [Moles/Vol] 3.9 mmol/L Normal 3.5 - 5.1 [facility] Comment on above: Performed By: #### 2 27348 #### [facility],[address] [place] [address] 65218 Protein [Mass/Vol] 7.3 g/dL Normal 6.4 - 8.2 [facility] Comment on above: Performed By: #### 2 45231 #### [facility],[address] [place] [address] 80600 Sodium [Moles/Vol] 138 mmol/L Normal 136 - 145 [facility] Comment on above: Performed By: #### 2 83799 #### [facility],[address] [place] [address] 01157 Urea nitrogen [Mass/Vol] 15 mg/dL Normal 7 - 18 [facility] Comment on above: Performed By: #### 2 41741 #### [facility],[address] [place] [address] 75116 YONYOVon 06-30-2024 CNOV Office Visit (NPRC21 ) BECKI JACKSON ([id number]) 1990 F Date Time Provider Department 06/30/24 4:00 PM LUCAS HANCOCK [id number] During your visit today, we recorded the following information about you: Pulse Blood pressure Weight 117/minute 124/74 102.4 kg Lucas Hancock PA-C 06/30/2024 4:06 PM Signed THE [facility] Comprehensive Pain Recovery [facility] June 30, 2024 SUBJECTIVE: presents with for the visit Becki Jackson presents to for a follow-up appointment for ketamine infusions. The patient states the infusion provided 0% relief. Ketamine infusions 05/29/24 to 06/02/24 Taking gabapentin, tylenol, motrin prn Also taking buspar, invega for her mental health Reports new swelling in hands and legs, along with bruising, itching, red bumps/rash, blisters, and dizziness. Denies any exposure to insects/camping/natur e/stoddrad/yard. Denies any fevers, body aches, weight loss, chest pain, SOB, headaches - denies any other sick symptoms. Notes nausea and diarrhea - not related to the other symptoms per the patient, has been occurring for along time. Denies any new medications. Denies any new soaps or detergents. Denies any new foods. Denies any new animals but admits to having a dog. States that none of her family members are having any symptoms. States that the symptoms started 2 days after finishing the ketamine infusions. States that the symptoms are getting worse. Has been evaluated by her PCP. Had blood work done. Average pain over the last 7 days: 9/10 Since the end of the infusion, my overall status is: 4 Very much worsened Much worsened Minimally worsened No change Minimally improved Much improved Very much improved Patient Entered Questionnaires 06/23/2023 05/13/2024 06/24/2024 PROMIS CAT Fatigue PROMIS Fatigue T-Score 67 (moderate) 76 (severe) 64 (moderate) PROMIS Fatigue Percentile 4 0 8 06/23/2023 05/13/2024 06/24/2024 PROMIS CAT Pain Interference PROMIS Pain Interference T-Score (range: 10 - 90) 76 (severe) 78 (severe) 81 (severe) PROMIS Pain Interference Percentile 0 0 0 06/23/2023 05/13/2024 06/24/2024 PROMIS CAT Satisfaction with Social Roles PROMIS - Satisfaction with Participation in Social Roles T-Score 39 (Low) 36 (Low) 37 (Low) PROMIS Social Role Satisfaction Percentile 14 8 10 06/24/2023 05/13/2024 06/24/2024 PROMIS CAT Self-Efficacy Manage Symptoms PROMIS Self-Efficacy for Managing Symptoms T-Score 36 (Low) 34 (Low) 35 (Low) PROMIS Self-Efficacy Manage Symptoms Percentile 8 5 7 01/20/2023 05/23/2023 05/13/2024 PROMIS Global Health Scale Physical Health Percentile 7 7 7 2 Mental Health Percentile 3 5 5 2 01/20/2023 05/23/2023 05/13/2024 PROMIS Global Health - (T-Scores - the mean of general population = 50. Five points is a clinically meaningful difference.) Physical T-Score 34.9 34.9 34.9 29.6 Mental T-Score 31.3 33.8 33.8 28.4 06/23/2023 05/13/2024 06/24/2024 Pain Catastrophizing Scale (PCS) - Scores Rumination Subscore 3 14 13 Magnification Subscore 0 4 4 Helplessness Subscore 19 14 PCS Total Score 37 31 06/23/2023 05/13/2024 06/24/2024 STEVE - 7 SCORES Score 12 19 16 06/24/2023 05/13/2024 06/24/2024 PHQ-9 PHQ-2 Score 2 6 6 PHQ-9 Score 14 (Moderate Depression) 23 (Severe Depression) 22 (Severe Depression) ASSESSMENT: Chronic pain syndrome (primary encounter diagnosis) Chronic abdominal pain Gastroparesis Bipolar i disorder, most recent episode (or current) manic (hcc) PLAN: 1) will repeat ketamine in 3 months 2) consult to Dermatology 3) Continue to optimize diet, activity, and sleep. 4) follow up 4 weeks after the next ketamine treatment I spent a total of 25 minutes on the date of the service which included preparing to see the patient, [id number] patient care, completing clinical documentation, obtaining and/or reviewing separately obtained history, performing a medically appropriate examination, counseling and educating the patient/family/caregi kristin, and ordering medications, tests, or procedures. Lucas Hancock PA-C Important Patient Information: 1. To schedule Pain Recovery appointments or post-injection office visits, please call: [phone] 2. The nursing staff and medical assistants are a part of your pain recovery team and will be handling your phone calls and inquiries. 3. Your study results and treatment plan will be discussed during a follow-up appointment. If you do not have a follow-up appointment and wish to discuss any issues directly with me, please call: [phone] to set-up an appointment. 4. MyChart is best used for refill requests or yes or no questions. Anything more complicated will likely require a follow-up appointment that you can schedule by [phone]. 5. It is the practice of the Department to not fill disability or (more content not included)... Normal [facility] NT-proBNPon 06-30-2024 Natriuretic peptide B (Bld) [Mass/Vol] 22 pg/mL Normal 0 - 125 [facility] Comment on above: Performed By: #### 2 23093 #### [facility],[address] [place] [address] PROTHROMBIN TIME AND INRon 0 06-30-2024 INR Coag (PPP) [Relative time] 1.1 {INR} Normal 0.8 - 1.2 [facility] Comment on above: Result Comment: T HE HEMOSIL THROMBOPLASTIN REAGENT USED IN THE PROTHROMBIN TIME TEST INTERACTS WITH THE DRUG CUBICIN (DAPTOMYCIN) AND WILL RESULT IN FALSELY ELEVATED PT / INR RESULTS INR INTERPRETATION INR INDICATION PREVENTION AND TREATMENT OF THROMBOEMBOLISM ASSOCIATED WITH: 2.0 - 3.0 ATRIAL FIBRILLATION, BIOPROSTHETIC HEART VALVES, PULMONARY EMBOLISM, VENOUS THROMBOSIS, SYSTEMIC EMBOLISM POST MYOCARDIAL INFARCTION 2.5 - 3.5 MECHANICAL HEART VALVES Performed By: #### 2 71394 #### [facility],[address] [place], [place] [id number] PROTHROMBIN TIME AND INR Normal [facility] Comment on above: Result Comment: PROT HROMBIN TIME AND INR Performed By: #### 2 45015 #### [facility],[address] [place], [place] [id number] PT-COUMADIN 12.1 sec Normal 9.3 - 14.1 [facility] Comment on above: Performed By: #### 2 70121 #### [facility],[address] [place] [address] 27048 NM Stomach Views for gastric emptying solid phase W radionuclide Michelle 06-05-2024 IMPRESSION: Normal gastric emptying rate for the solid meal. R Developer: RAFY Transcribe Date/Time: Jun 05 2024 1:49P Dictated by : RAHAT ABBASI MD This examination was interpreted and the report reviewed and electronically signed by: SHIVAM COMBS MD on Jun 05 2024 2:06PM [facility] DIVISION OF RADIOLOGY * * *Final Report* * * DATE OF EXAM: Jun 05 2024 1:47PM N 0017 - NM GASTRIC EMPTYING SOLID / PROCEDURE REASON: Gastroparesis * * * * Physician Interpretation * * * * EXAM: SOLID MEAL GASTRIC EMPTYING STUDY HISTORY: Concern for gastroparesis. TECHNIQUE: 1.2 millicuries of Tc-99m sulfur colloid was administered PO in a solid meal consumed over 10 minutes. Planar images of the gastric region were obtained at 0, 1, 2, and 4 hours. Geometric means were used to calculate gastric retention values. * Patient's ingested solid meal: 4 ounces of egg beater 2 pieces of toast 1 ounce of jelly and 8 ounces of water * Reference standard solid meal: 4 ounces of Egg Beaters, 2 slices of toast, 1 ounce of jelly, and 8 ounces of water COMPARISON: No relevant prior imaging available RESULTS: Calculated solid meal (or solid meal equivalent) gastric retention values: * 73% retention at 1 hour (normal range, 37-90%; accelerated emptying is defined as <30% at 1 hour) * 21% retention at 2 hours (normal range, <60%) * 0% retention at 4 hours (normal range, <10%) DIVISION OF RADIOLOGY Provider, Patricia Christopher - 06/05/2024 * * *Final Report* * * DATE OF EXAM: Jun 05 2024 1:47PM [facility] 0017 - NM GASTRIC EMPTYING SOLID / PROCEDURE REASON: Gastroparesis * * * * Physician Interpretation * * * * EXAM: SOLID MEAL GASTRIC EMPTYING STUDY HISTORY: Concern for gastroparesis. TECHNIQUE: 1.2 millicuries of Tc-99m sulfur colloid was administered PO in a solid meal consumed over 10 minutes. Planar images of the gastric region were obtained at 0, 1, 2, and 4 hours. Geometric means were used to calculate gastric retention values. * Patient's ingested solid meal: 4 ounces of egg beater 2 pieces of toast 1 ounce of jelly and 8 ounces of water * Reference standard solid meal: 4 ounces of Egg Beaters, 2 slices of toast, 1 ounce of jelly, and 8 ounces of water COMPARISON: No relevant prior imaging available RESULTS: Calculated solid meal (or solid meal equivalent) gastric retention values: * 73% retention at 1 hour (normal range, 37-90%; accelerated emptying is defined as <30% at 1 hour) * 21% retention at 2 hours (normal range, <60%) * 0% retention at 4 hours (normal range, <10%) IMPRESSION IMPRESSION: Normal gastric emptying rate for the solid meal. R Developer: RAFY Transcribe Date/Time: Jun 05 2024 1:49P Dictated by : RAHAT ABBASI MD This examination was interpreted and the report reviewed and electronically signed by: SHIVAM COMBS MD on Jun 05 2024 2:06PM EST [facility] Radiology Study observation (narrative) Sujatha thakur [facility] Stomach Views for gastric emptying solid phase W radionuclide POOrdered By: Ccf Provider on 06-05-2024 [facility] AMMONIAon 04-05-2024 Ammonia (P) [Mass/Vol] ug/dL Low Av [facility] CBC, EDIF, PLATELETon 2023 ABSOLUTE BASOPHIL COUNT 0.0 10*3/uL 0.0 - 0.2 10*3/uL [facility] [employer] Basophils/100 WBC (Bld) 0.5 % 0.0 - 2.0 % [facility] Differential cell count method Nom (Bld) AUTO DIFF % [facility] Eosinophils (Bld) [#/Vol] 0.1 10*3/uL 0.0 - 0.7 10*3/uL [facility] Eosinophils/100 WBC (Bld) 1.7 % 0.0 - 11.0 % [facility] Erythrocyte distribution width (RBC) [Ratio] 14.0 % 11.5 - 14.5 % [facility] Hematocrit (Bld) [Volume fraction] 39.1 % 36.0 - 48.0 % [facility] Hemoglobin (Bld) [Mass/Vol] 13.3 g/dL [facility] Interpretation and review of laboratory results Abnormal [facility] Lymphocytes (Bld) [#/Vol] 1.3 10*3/uL 1.2 - 3.4 10*3/uL [facility] Lymphocytes/100 WBC (Bld) 16.2 % Low 20.0 - 55.0 % [facility] MCH (RBC) [Entitic mass] 30.0 pg 26.0 - 35.0 PG [facility] MCHC (RBC) [Mass/Vol] 34.0 g/dL [facility] MCV (RBC) [Entitic vol] 88.3 fL A [facility] Monocytes (Bld) [#/Vol] 0.5 10*3/uL 0.0 - 0.7 10*3/uL [facility] Monocytes/100 WBC (Bld) 6.7 % 0.0 - 10.0 % [facility] Neutrophils (Bld) [#/Vol] 6.0 10*3/uL 1.4 - 6.5 10*3/uL [facility] Neutrophils/100 WBC (Bld) 74.9 % 37.0 - 75.0 % [facility] Platelet mean volume (Bld) [Entitic vol] 7.4 fL [facility] Platelets (Bld) [#/Vol] 316 10*3/uL 130 - 400 10*3/uL [facility] RBC (Bld) [#/Vol] 4.43 10*6/uL 4.0 - 5.4 10*6/uL [facility] WBC (Bld) [#/Vol] 8.1 10*3/uL 3.6 - 11.0 10*3/uL [facility] COMPREHENSIVE METABOLIC PANE Rashid 04-05-2024 Albumin [Mass/Vol] 3.9 G/dl 3.5 - 5.0 G/dl [facility] Albumin/Globulin [Mass ratio] 1.4 {ratio} RATIO [facility] ALP [Catalytic activity/Vol] 83 U/L [facility] ALT [Catalytic activity/Vol] 30 U/L NINF [facility] AST [Catalytic activity/Vol] 25 U/L [facility] Bilirubin [Mass/Vol] 0.3 mg/dL [facility] Calcium [Mass/Vol] 8.7 mg/dL [facility] Chloride [Moles/Vol] 108 mmol/L High [facility] Comment on above: Please note: Triglyc eride levels of 600mg/dL or higher may positively bias chloride results by approximately 2.1 mmol CO2 [Moles/Vol] 30 mmol/L [facility] Creatinine [Mass/Vol] 0.90 mg/dL [facility] GFR COMMENT Average GFR for 30-3 9 years old = 107. [facility] Comment on above: Chronic Kidney disea se, GFR = <60. Kidney failure, GFR = <15. The GFR estimate is not adjusted for extreme body surface area or acute process, nor has it been validated for women or ethnic groups other than and . GFR/1.73 sq M.predicted among blacks MDRD (S/P/Bld) [Vol rate/Area] 93 mL/min/{1.73_m2} ml/min/1.73sq .m [facility] GFR/1.73 sq M.predicted among non-blacks MDRD (S/P/Bld) [Vol rate/Area] 77 mL/min/{1.73_m2} ml/min/1.73sq .m [facility] Glucose post fast [Mass/Vol] 98 mg/dL [facility] Comment on above: NORMAL <100 mg/dL PREDIABETES 101-126 mg/dL DIABETES 126 mg/dL or higher Potassium [Moles/Vol] 3.9 mmol/L [facility] Protein [Mass/Vol] 6.6 g/dL [facility] Sodium [Moles/Vol] 141 mmol/L [facility] Urea nitrogen [Mass/Vol] 16 mg/dL [facility] CT Abdomen and Pelvis WO con traston 04-05-2024 IMPRESSION: 1. No acute process in the abdomen or pelvis. RADIOLOGY EXAMINATION:CT ABDOMEN/PELVIS WITHOUT CONTRAST INDICATION:Abdominal pain COMPARISON:None TECHNIQUE:Multiple thin section transaxial slices were acquired through the abdomen and pelvis without intravenous contrast. Coronal and sagittal reconstructed images were reviewed. Oral contrastWas not administered. FINDINGS: LOWER CHEST: The lower chest is unremarkable. LIVER: The liver is unremarkable. GALLBLADDER AND BILIARY SYSTEM: No obvious ductal dilation. The gallbladder surgically absent. SPLEEN: The spleen is unremarkable. PANCREAS: The pancreas is unremarkable. ADRENAL GLANDS: The adrenal glands are unremarkable. KIDNEYS AND URETERS: There is no hydronephrosis of the kidneys.No obstructing urologic calcifications are present. VASCULATURE: Vascularity is unremarkable. PERITONEUM/RETROPERIT ONEUM: Peritoneum/retroperit oneum is unremarkable. LYMPH NODES: No suspicious lymphadenopathy. GASTROINTESTINAL TRACT: The bowel is normal in caliber.No acute inflammatory changes are present in the bowel.The appendix is visualized and is not inflamed. BLADDER: The urinary bladder is unremarkable. REPRODUCTIVE SYSTEM: Reproductive system is unremarkable. BODY WALL: There is a tiny fat-containing umbilical hernia. BONES: Mild degenerative disc disease is present in the L4-L5 level of the lumbar spine. RADIOLOGY Denisa Goyal, DO - 04/05/2024 EXAMINATION:CT ABDOMEN/PELVIS WITHOUT CONTRAST INDICATION:Abdominal pain COMPARISON:None TECHNIQUE:Multiple thin section transaxial slices were acquired through the abdomen and pelvis without intravenous contrast. Coronal and sagittal reconstructed images were reviewed. Oral contrastWas not administered. FINDINGS: LOWER CHEST: The lower chest is unremarkable. LIVER: The liver is unremarkable. GALLBLADDER AND BILIARY SYSTEM: No obvious ductal dilation. The gallbladder surgically absent. SPLEEN: The spleen is unremarkable. PANCREAS: The pancreas is unremarkable. ADRENAL GLANDS: The adrenal glands are unremarkable. KIDNEYS AND URETERS: There is no hydronephrosis of the kidneys.No obstructing urologic calcifications are present. VASCULATURE: Vascularity is unremarkable. PERITONEUM/RETROPERIT ONEUM: Peritoneum/retroperit oneum is unremarkable. LYMPH NODES: No suspicious lymphadenopathy. GASTROINTESTINAL TRACT: The bowel is normal in caliber.No acute inflammatory changes are present in the bowel.The appendix is visualized and is not inflamed. BLADDER: The urinary bladder is unremarkable. REPRODUCTIVE SYSTEM: Reproductive system is unremarkable. BODY WALL: There is a tiny fat-containing umbilical hernia. BONES: Mild degenerative disc disease is present in the L4-L5 level of the lumbar spine. IMPRESSION IMPRESSION: 1. No acute process in the abdomen or pelvis. [facility] Radiology Study observation (narrative) [facility] CT Abdomen and Pelvis WO con trastOrdered By: Denisa Goyal on 04-05-2024 [facility] Work Phone: HCG ( test) Ql (U)o n 04-05-2024 [facility] HCG QUALITATIVE, URINEon HCG ( test) Ql (U) Negative NEGATIVE [facility] LACTATE, BLOODon 04-05-2024 Lactate [Moles/Vol] 1.3 mmol/L 0.7 - 2. 0 mmol/L [facility] LIPASEon 04-05-2024 Lipase [Catalytic activity/Vol] 80 U/L 23 - 300 U/L [facility] MAGNESIUMon 04-05-2024 Magnesium [Mass/Vol] 2.1 mg/dL [facility] No Panel Informationon 04-05 [facility] Interpretation and review of laboratory results Abnormal [facility] PROTIME-INRon 04-05-2024 INR Coag (PPP) [Relative time] 0.92 {INR} 0.85 - 1.10 [facility] Comment on above: 2.0-3.0 THERAPEUTIC RANGE 2.5-3.5 MECHANICAL VALVE RANGE PT Coag (PPP) [Time] 12.5 s [facility] PTTon 04-05-2024 aPTT Coag (Bld) [Time] 29.1 s [facility] Comment on above: CARDIAC AND PE/DVT THERAPUTIC RANGE 69-97 SEC VASCULAR/THREATENED LIMB THERAPUTIC RANGE 80-112 SEC URINALYSIS, MACROon 04-05-20 24 Bilirubin Ql (U) Negative NEGATIVE [facility] Clarity (U) CLEAR CLEAR [facility] Color (U) YELLOW YELLOW [facility] Glucose Test strip (U) [Mass/Vol] Negative NEGATIVE mg/dl [facility] Hemoglobin Ql (U) LARGE Abnormal NEGATIVE [facility] Interpretation and review of laboratory results Abnormal [facility] Ketones (U) [Mass/Vol] Negative NEGAT FANNY mg/dl [facility] Leukocyte esterase Test strip Ql (U) Negative NEGATIVE [facility] Nitrite Ql (U) Negative NEGATIVE [facility] pH (U) 6.5 [pH] 5.0 - 7.0 [facility] Protein Ql (U) Negative NEGATIVE mg/dl [facility] Specific gravity (U) [Rel density] 1.025 1.010 - 1.025 [facility] Urobilinogen (U) [Mass/Vol] 0.2 mg/dL [facility] URINE MICROSCOPICon 04-05-20 24 Bacteria LM.HPF (Urine sed) [#/Area] Negative NEGATIVE [facility] Casts LM.LPF (Urine sed) [#/Area] NONE NONE /LPF [facility] Crystals LM Nom (Urine sed) NONE NONE [facility] Epithelial cells LM Ql (Urine sed) 10 TO 20 /HPF [facility] Mucus Ql (Urine sed) Negative NEGATIVE [facility] RBC LM.HPF (Urine sed) [#/Area] Negative NEGATIVE /HPF [facility] Urine sediment comments LM Florentino (Urine sed) POSSIBLY CONTAMINATED SPECIMEN, CULTURE MUST BE ORDERED SEPARATELY IF DEEMED NECESSARY. [facility] WBC LM.HPF (Urine sed) [#/Area] Negative NEGATIVE /HPF [facility] CBC + DIFFon 02-18-2024 Baso # 0.03 x10EE3/UL Normal 0.00 - 0.10 [facility] Comment on above: Performed By: #### 2 44377 #### [facility],[address] [place], [place] [id number] Basophils/100 WBC (Bld) 0.5 % Normal 0.0 - 2.0 [facility] Comment on above: Performed By: #### 2 01097 #### [facility],[address] [place] [address] 34352 CBC + DIFF Normal [facility] Comment on above: Result Comment: CBC- COMPLETE BLOOD COUNT Performed By: #### 2 88488 #### [facility],[address] [place] [address] 67605 EO # 0.21 x10EE3/UL Normal 0.00 - 0.50 [facility] Comment on above: Performed By: #### 2 09915 #### [facility],[address] [place], [place] [id number] Eosinophils/100 WBC (Bld) 3.2 % Normal 0.0 - 7.0 [facility] Comment on above: Performed By: #### 2 46304 #### [facility],[address] [place] [address] Erythrocyte distribution width (RBC) [Ratio] 13.7 % Normal 12.0 - 15.6 [facility] Comment on above: Performed By: #### 2 77373 #### [facility],[address] [place] [address] Hematocrit (Bld) [Volume fraction] 45.4 % Normal 34.0 - 46.0 [facility] Comment on above: Performed By: #### 2 61137 #### [facility],[address] [place] [address] Hemoglobin (Bld) [Mass/Vol] 14.9 g/dL Normal 12.0 - 16.0 [facility] Comment on above: Performed By: #### 2 50700 #### [facility],[address] [place] [address] Lymph # 1.19 x10EE3/UL Normal 0.80 - 2.80 [facility] Comment on above: Performed By: #### 2 42262 #### [facility],[address] [place], [place] [id number] Lymphocytes/100 WBC (Bld) 18.3 % Low 20.0 - 45.0 [facility] Comment on above: Performed By: #### 2 10963 #### [place] [id number] MANUAL DIFF N/A Normal [facility] Comment on above: Performed By: #### 2 53686 #### [facility],[address] [place], [place] [id number] MCH (RBC) [Entitic mass] 29 pg Normal 27 - 33 [facility] Comment on above: Performed By: #### 2 69033 #### [facility],[address] [place] [address] MCHC 33 X10 3 Normal 32 - 36 [facility] Comment on above: Performed By: #### 2 36460 #### [facility],[address] [place] [address] MCV (RBC) [Entitic vol] 88 fL Normal 80 - [address] [facility] Comment on above: Performed By: #### 2 56547 #### [facility],[address] [place] [address] Kimball # 0.50 x10EE3/UL Normal 0.20 - 1.00 [facility] Comment on above: Performed By: #### 2 90135 #### [place] [address] MONOS % 7.6 % Normal 0.0 - 10.0 [facility] Comment on above: Performed By: #### 2 54463 #### [place] [address] Morphology Florentino (Bld) [Interp] N/A Normal [facility] Comment on above: Performed By: #### 2 08094 #### [facility],[address] [place] [address] Neut # 4.57 x10EE3/UL Normal 1.50 - 7.10 [facility] Comment on above: Performed By: #### 2 94251 #### [place] [address] Neutrophils/100 WBC (Bld) 70.4 % Normal 46.0 - 76.0 [facility] Comment on above: Performed By: #### 2 67412 #### [place] [address] PLATELET 355 x10EE3/UL Normal 150 - 450 [facility] Comment on above: Performed By: #### 2 71989 #### [facility],[address] [place] [address] 48513 Platelet mean volume (Bld) [Entitic vol] 7.0 fL Normal 6.6 - 10.5 [facility] Comment on above: Result Comment: AUTO MATED DIFFERENTIAL Performed By: #### 2 85677 #### [facility],[address] [place] [address] RBC 5.14 x 10EE6/UL Normal 4.10 - 5.30 [facility] Comment on above: Performed By: #### 2 52450 #### [facility],[address] [place] [address] WBC 6.5 x 10EE3/UL Normal 4.5 - 10.8 [facility] Comment on above: Performed By: #### 2 14113 #### [facility],[address] [place], [place] [id number] CMP with eGFRon 02-18-2024 AGE 33 years Normal [facility] Comment on above: Performed By: #### 2 36306 ####[facility],[address] [place], [place] [id number] Albumin [Mass/Vol] 3.1 g/dL Low 3.4 - 5.0 [facility] Comment on above: Performed By: #### 2 28808 ####[facility],[address] [place], [place] [id number] Albumin/Globulin [Mass ratio] 0.9 {ratio} Normal 0.9 - 1.6 [facility] Comment on above: Performed By: #### 2 36691 ####[facility],[address] [place], [place] [id number] ALK PHOS 108 U/L Normal 46 - 116 [facility] Comment on above: Performed By: #### 2 23508 ####[facility],[address] [place] [address] 84403 ALT [Catalytic activity/Vol] 19 U/L Normal 16 - 63 [facility] Comment on above: Performed By: #### 2 30580 ####[facility],[address] [place] [address] 49843 Anion gap [Moles/Vol] 10 mmol/L Normal 10 - 20 [facility] Comment on above: Performed By: #### 2 76807 ####[facility],[address] [place] [address] 48897 AST [Catalytic activity/Vol] 10 U/L Low 13 - 39 [facility] Comment on above: Performed By: #### 2 59305 ####[facility],[address] [place] [address] 34313 B/C RATIO 16 ratio Normal 0 - 30 [facility] Comment on above: Performed By: #### 2 84848 ####[facility],[address] [place] [address] 79856 Bilirubin [Mass/Vol] 0.3 mg/dL Normal 0.2 - 1.0 [facility] Comment on above: Performed By: #### 2 90554 ####[facility],[address] [place] [address] 40265 Calcium [Mass/Vol] 8.9 mg/dL Normal 8.5 - 10.1 [facility] Comment on above: Performed By: #### 2 38360 ####[facility],[address] [place] [address] 87953 Chloride [Moles/Vol] 108 mmol/L High 98 - 107 [facility] Comment on above: Performed By: #### 2 13153 ####[facility],[address] [place] [address] 17227 CMP with eGFR Normal [facility] Comment on above: Result Comment: COMP REHENSIVE METABOLIC PANEL Performed By: #### 2 07180 ####[facility],[address] [place] [address] 01588 CO2 [Moles/Vol] 28.1 mmol/L Normal 21.0 - 32.0 [facility] Comment on above: Performed By: #### 2 50162 ####[facility],[address] [place] [address] 10075 Creatinine [Mass/Vol] 0.80 mg/dL Normal 0.55 - 1.02 [facility] Comment on above: Performed By: #### 2 42610 ####[facility],[address] [place], [place] [id number] GFR/1.73 sq M.predicted among non-blacks MDRD (S/P/Bld) [Vol rate/Area] mL/min/{1.73_m2} Normal 60 - 999 [facility] Comment on above: Performed By: #### 2 94613 ####[facility],[address] [place] [address] Result Comment: ACCO RDING TO THE NATIONAL KIDNEY DISEASE EDUCATION PROGRAM(NKDE), A NORMAL eGFR IS A VALUE GREATER THAN OR EQUAL TO 60 ML/MIN/1.73 SQ METERS. CHRONIC KIDNEY DISEASE: <60mL/MIN/1.73 SQ METERS KIDNEY FAILURE: <15mL/MIN/1.73 SQ METERS THIS TEST SHOULD ONLY BE USED FOR PATIENTS 18 YEARS OF AGE AND OLDER. Globulin (S) [Mass/Vol] 3.5 g/dL Normal 1.5 - 3.8 [facility] Comment on above: Performed By: #### 2 86892 ####[facility],[address] [place] [address] 52863 Glucose [Mass/Vol] 74 mg/dL Normal 74 - 106 [facility] Comment on above: Performed By: #### 2 32197 ####[facility],[address] [place] [address] 79143 Potassium [Moles/Vol] 4.1 mmol/L Normal 3.5 - 5.1 [facility] Comment on above: Performed By: #### 2 15632 ####[facility],[address] [place] [address] 81793 Protein [Mass/Vol] 6.6 g/dL Normal 6.4 - 8.2 [facility] Comment on above: Performed By: #### 2 54791 ####[facility],[address] [place] [address] 15501 Sodium [Moles/Vol] 142 mmol/L Normal 136 - 145 [facility] Comment on above: Performed By: #### 2 55423 ####[facility],[address] [place] [address] 61378 Urea nitrogen [Mass/Vol] 13 mg/dL Normal 7 - 18 [facility] Comment on above: Performed By: #### 2 84755 ####[facility],[address] [place] [address] 10311 FOREARM RTon 02-18-2024 FOREARM RT [place] [id number] Patient: BECKI JACKSON Phone#: : 1990 Age: 33 Gender: F Pt. Type: ER Account: [id number] Location: [facility] Ordering: MARC VELASCO Exam Date: 02/18/2024/14:08 Family Phys: KAYLEY DOBSON Charge Code: 343750 Physician: Richardson Order #: [id number] Dose#: PROCEDURE: X-RAY FOREARM RT 2 VIEWS COMPARISON: None. INDICATIONS: Right Arm Pain. FINDINGS: BONES: Normal. No significant arthropathy or acute abnormality. No fracture or dislocation. SOFT TISSUES: Mild soft tissue stranding at the proximal dorsal forearm. EFFUSION: None visible. OTHER: Negative. CONCLUSION: 1. No acute osseous abnormality. Dictated by: Heather Ken MD on 02/18/2024 at 14:45 Approved by: Heather Ken MD on 02/18/2024 at 14:46 Normal [facility] SEDRATEon 02-18-2024 SEDRATE 6 mm/hr Normal 0 - 30 [facility] Comment on above: Performed By: #### 2 96629 ####[facility],[address] [place], [place] [id number] CBC W Auto Differential pane l (Bld)on 02-15-2024 Basophils (Bld) [#/Vol] 0.06 x10*3/uL Normal 0.00-0.10 [facility] Comment on above: Performed By: #### 5 7021-8 #### CECI SUTHERLAND ([id number]) [facility]) [address] [place] [address] 54069 Basophils/100 WBC (Bld) 0.8 % Normal 0.0-2.0 [facility] Comment on above: Performed By: #### 5 7021-8 #### CECI SUTHERLAND ([id number]) [facility]) [address] [place] [address] 73763 Eosinophils (Bld) [#/Vol] 0.16 x10*3/uL Normal 0.00-0.70 [facility] Comment on above: Performed By: #### 5 7021-8 #### CECI SUTHERLAND ([id number]) [facility]) [address] [place] [address] 45563 Eosinophils/100 WBC (Bld) 2.1 % Normal 0.0-6.0 [facility] Comment on above: Performed By: #### 5 7021-8 #### CECI SUTHERLAND ([id number]) [facility]) [address] [place] [address] 60477 Erythrocyte distribution width (RBC) [Ratio] 13.2 % Normal 11.5-14.5 [facility] Comment on above: Performed By: #### 5 7021-8 #### CECI SUTHERLAND ([id number]) [facility]) [address] [place] [address] 06908 Hematocrit (Bld) [Volume fraction] 39.5 % Normal 36.0-46.0 [facility] Comment on above: Performed By: #### 5 7021-8 #### CECI SUTHERLAND ([id number]) [facility]) [address] [place] [address] 74926 Hemoglobin (Bld) [Mass/Vol] 13.2 g/dL Normal 12.0-16.0 [facility] Comment on above: Performed By: #### 5 7021-8 #### CECI SUTHERLAND ([id number]) [facility] [address] [place] [address] 70343 Immature granulocytes (Bld) [#/Vol] 0.03 x10*3/uL Normal 0.00-0.70 [facility] Comment on above: Performed By: #### 5 7021-8 #### CECI SUTHERLAND ([id number]) [facility] [address] [place] [address] 13045 Immature granulocytes/100 WBC (Bld) 0.4 % Normal 0.0-0.9 [facility] Comment on above: Result Comment: Krista ture Granulocyte Count (IG) includes promyelocytes, myelocytes and metamyelocytes but does not include bands. Percent differential counts (%) should be interpreted in the context of the absolute cell counts (cells/UL). Performed By: #### 5 7021-8 #### CECI SUTHERLAND ([id number]) [facility]) [address] [place] [address] 90562 Lymphocytes (Bld) [#/Vol] 1.31 x10*3/uL Normal 1.20-4.80 [facility] Comment on above: Performed By: #### 5 7021-8 #### CECI SUTHERLAND ([id number]) [facility]) [address] [place] [address] 99037 Lymphocytes/100 WBC (Bld) 17.5 % Normal 13.0-44.0 [facility] Comment on above: Performed By: #### 5 7021-8 #### CECI SUTHERLAND ([id number]) [facility]) [address] [place] [address] 21110 MCH (RBC) [Entitic mass] 30.2 pg Normal 26.0-34.0 [facility] Comment on above: Performed By: #### 5 7021-8 #### CECI SUTHERLAND ([id number]) [facility]) [address] [place] [address] 73277 MCHC (RBC) [Mass/Vol] 33.4 g/dL Normal 32.0-36.[address] [facility] Comment on above: Performed By: #### 5 7021-8 #### CECI SUTHERLAND ([id number]) [facility]) [address] [place] [address] 13554 MCV (RBC) [Entitic vol] 90 fL Normal 80-100 [facility] Comment on above: Performed By: #### 5 7021-8 #### CECI SUTHERLAND ([id number]) [facility] [address] [place] [address] 26439 Monocytes (Bld) [#/Vol] 0.46 x10*3/uL Normal 0.10-1.00 [facility] Comment on above: Performed By: #### 5 7021-8 #### CECI SUTHERLAND ([id number]) [facility] [address] [place] [address] 77914 Monocytes/100 WBC (Bld) 6.2 % Normal 2.0-10.0 [facility] Comment on above: Performed By: #### 5 7021-8 #### CECI SUTHERLAND ([id number]) [facility] [address] [place] [address] 51201 Neutrophils (Bld) [#/Vol] 5.45 x10*3/uL Normal 1.20-7.70 [facility] Comment on above: Result Comment: Perc ent differential counts (%) should be interpreted in the context of the absolute cell counts (cells/uL). Performed By: #### 5 7021-8 #### CECI SUTHERLAND ([id number]) [facility] [address] [place] [address] 44134 Neutrophils/100 WBC (Bld) 73.0 % Normal 40.0-80.0 [facility] Comment on above: Performed By: #### 5 7021-8 #### CECI SUTHERLAND ([id number]) [facility] [address] [place] [address] 48577 Nucleated RBC/100 WBC (Bld) [Ratio] 0.0 /100 WBCs Normal 0.0-0.0 [facility] Comment on above: Performed By: #### 5 7021-8 #### CECI SUTHERLAND ([id number]) [facility] [address] [place] [address] 22374 Platelets (Bld) [#/Vol] 292 x10*3/uL Normal 150-450 [facility] Comment on above: Performed By: #### 5 7021-8 #### CECI SUTHERLAND ([id number]) [facility]) [address] [place] [address] 71804 RBC (Bld) [#/Vol] 4.37 x10*6/uL Normal 4.00-5.20 [facility] Comment on above: Performed By: #### 5 7021-8 #### CECI SUTHERLAND ([id number]) [facility] [address] [place] [address] 52058 WBC (Bld) [#/Vol] 7.5 x10*3/uL Normal 4.4-11.3 [facility] Comment on above: Performed By: #### 5 7021-8 #### CECI SUTHERLAND ([id number]) [facility]) [address] [place] [address] 12874 Basophils (Bld) [#/Vol] 0.06 10*3/uL [facility] Basophils/100 WBC (Bld) 0.8 % 0.0 - 2.0 % [facility] [facility] Eosin[facility] (Bld) [#/Vol] 0.16 10*3/uL [facility] Eosinophils/100 WBC (Bld) 2.1 % 0.0 - 6.0 % [facility] Erythrocyte distribution width (RBC) [Ratio] 13.2 % 11.5 - 14.5 % [facility] Hematocrit (Bld) [Volume fraction] 39.5 % 36.0 - 46.0 % [facility] Hemoglobin (Bld) [Mass/Vol] 13.2 g/dL 12.0 - 16.0 g/dL [facility] Immature granulocytes (Bld) [#/Vol] 0.03 10*3/uL [facility] Immature granulocytes/100 WBC (Bld) 0.4 % 0.0 - 0.9 % [facility] Comment on above: Immature Granulocyte Count (IG) includes promyelocytes, myelocytes and metamyelocytes but does not include bands. Percent differential counts (%) should be interpreted in the context of the absolute cell counts (cells/UL). Lymphocytes (Bld) [#/Vol] 1.31 10*3/uL [facility] Lymphocytes/100 WBC (Bld) 17.5 % 13.0 - 44.0 % [facility] MCH (RBC) [Entitic mass] 30.2 pg 26.0 - 34.0 pg [facility] MCHC (RBC) [Mass/Vol] 33.4 g/dL 32.0 - 36.0 g/dL [facility] MCV (RBC) [Entitic vol] 90 fL 80 - 100 fL [facility] Monocytes (Bld) [#/Vol] 0.46 10*3/uL [facility] Monocytes/100 WBC (Bld) 6.2 % 2.0 - 10.0 % [facility] Neutrophils (Bld) [#/Vol] 5.45 10*3/uL [facility] Comment on above: Percent differential counts (%) should be interpreted in the context of the absolute cell counts (cells/uL). Neutrophils/100 WBC (Bld) 73.0 % 40.0 - 80.0 % [facility] Nucleated RBC/100 WBC (Bld) [Ratio] 0.0 % [facility] Platelets (Bld) [#/Vol] 292 10*3/uL [facility] RBC (Bld) [#/Vol] 4.37 10*6/uL [facility] WBC (Bld) [#/Vol] 7.5 10*3/uL [facility] Comprehensive metabolic 2000 panelon 02-15-2024 Albumin BCP dye [Mass/Vol] 3.7 g/dL Normal 3.4-5.0 [facility] Comment on above: Performed By: #### 2 4323-8 #### CECI SUTHERLAND ([id number]) [facility] ([place]) [address] [place] [address] ALP [Catalytic activity/Vol] 92 U/L Normal 33-110 [facility] Comment on above: Performed By: #### 2 4323-8 #### CECI SUTHERLAND ([id number]) [facility] ([place]) [address] [place] [address] 367[address] ALT With P-5'-P [Catalytic activity/Vol] 15 U/L Normal 7-45 [facility] Comment on above: Result Comment: Paul ents treated with Sulfasalazine may generate falsely decreased results for ALT. Performed By: #### 2 4323-8 #### CECI SUTHERLAND ([id number]) [facility] ([place]) [address] [place] [address] Anion gap [Moles/Vol] 9 mmol/L Low 10-[address] [facility] Comment on above: Performed By: #### 2 4323-8 #### CECI SUTHERLAND ([id number]) [facility] ([place]) [address] [place] [address] AST With P-5'-P [Catalytic activity/Vol] 12 U/L Normal 9-39 [facility] Comment on above: Performed By: #### 2 4323-8 #### CECI SUTHERLAND ([id number]) [facility] ([place]) [address] [place] [address] Bilirubin [Mass/Vol] 0.4 mg/dL Normal 0.0-1.2 [facility] Comment on above: Performed By: #### 2 4323-8 #### CECI SUTHERLAND ([id number]) [facility] ([place]) [address] [place] [address] Calcium [Mass/Vol] 8.3 mg/dL Low 8.6-10.3 [facility] Comment on above: Performed By: #### 2 4323-8 #### CECI SUTHERLAND ([id number]) [facility] ([place]) [facility] [place] [address] Chloride [Moles/Vol] 110 mmol/L High 98-107 [facility] Comment on above: Performed By: #### 2 4323-8 #### CECI SUTHERLAND ([id number]) [facility] ([place]) [facility] [place] [address] CO2 [Moles/Vol] 24 mmol/L Normal 21-32 [facility] Comment on above: Performed By: #### 2 4323-8 #### CECI SUTHERLAND ([id number]) [facility] ([place]) [address] [place] [address] Creatinine [Mass/Vol] 0.86 mg/dL Normal 0.50-1.[address] [facility] Comment on above: Performed By: #### 2 4323-8 #### CECI SUTHERLAND ([id number]) [facility] ([place]) [address] [place] [address] GFR/1.73 sq M.predicted MDRD (S/P/Bld) [Vol rate/Area] mL/min/{1.73_m2} Normal >60 [facility] Comment on above: Result Comment: Calc ulations of estimated GFR are performed using the 2020 CKD-EPI Study Refit equation without the race variable for the IDMS-Traceable creatinine methods. https://jasn.asnjournals.org/content/early//ASN.2020 599000 Performed By: #### 2 4323-8 #### CECI SUTHERLAND ([id number]) [facility] ([place]) [facility] [place] [address] Glucose [Mass/Vol] 89 mg/dL Normal 74-99 [facility] Comment on above: Performed By: #### 2 4323-8 #### CECI SUTHERLAND ([id number]) [facility] ([place]) [facility] [place] [address] Potassium [Moles/Vol] 3.8 mmol/L Normal 3.5-5.[address] [facility] Comment on above: Performed By: #### 2 4323-8 #### CECI SUTHERLAND ([id number]) [facility] ([place]) [address] [place] [address] Protein [Mass/Vol] 6.1 g/dL Low 6.4-8.2 [facility] Comment on above: Performed By: #### 2 4323-8 #### CECI SUTHERLAND ([id number]) [facility] ([place]) [address] [place] [address] 69351 Sodium [Moles/Vol] 139 mmol/L Normal 136-145 [facility] Comment on above: Performed By: #### 2 4323-8 #### CECI SUTHERLAND ([id number]) [facility] ([place]) [address] [place] [address] Urea nitrogen [Mass/Vol] 14 mg/dL Normal 6-23 [facility] Comment on above: Performed By: #### 2 4323-8 #### CECI SUTHERLAND ([id number]) [facility] ([place]) [address] [place] [address]47[address] Albumin BCP dye [Mass/Vol] 3.7 g/dL 3.4 - 5.0 g/dL [facility] ALP [Catalytic activity/Vol] 92 U/L 33 - 110 U/L [facility] ALT With P-5'-P [Catalytic activity/Vol] 15 U/L 7 - 45 U/L [facility] Comment on above: Patients treated wit h Sulfasalazine may generate falsely decreased results for ALT. Anion gap [Moles/Vol] 9 mmol/L Low 10 - 2 0 mmol/L [facility] AST With P-5'-P [Catalytic activity/Vol] 12 U/L 9 - 39 U/L [facility] Bilirubin [Mass/Vol] 0.4 mg/dL 0.0 - 1 .2 mg/dL [facility] Calcium [Mass/Vol] 8.3 mg/dL Low 8.6 - 10. 3 mg/dL [facility] Chloride [Moles/Vol] 110 mmol/L High 98 - 10 7 mmol/L [facility] CO2 [Moles/Vol] 24 mmol/L 21 - 32 mmol/L [facility] Creatinine [Mass/Vol] 0.86 mg/dL 0.50 - 1.05 mg/dL [facility] eGFR - PINF [facility] Comment on above: Calculations of jeremy mated GFR are performed using the 2020 CKD-EPI Study Refit equation without the race variable for the IDMS-Traceable creatinine methods. https://jasn.asnjournals.org/content/early//ASN.2020 866875 Glucose [Mass/Vol] 89 mg/dL 74 - 99 mg/dL [facility] Interpretation and review of laboratory results Abnormal [facility] Potassium [Moles/Vol] 3.8 mmol/L 3.5 - 5.3 mmol/L [facility] Protein [Mass/Vol] 6.1 g/dL Low 6.4 - 8.2 g/dL [facility] Sodium [Moles/Vol] 139 mmol/L 136 - 145 mmol/L [facility] Urea nitrogen [Mass/Vol] 14 mg/dL 6 - 23 mg/dL [facility] ECG 12-LEADon 02-15-2024 ECG 12-LEAD Ventricular Rate 87 Atrial Rate 87 P-R Interval 118 QRS Duration 98 Q-T Interval 366 QTC Calculation(Bazett) 440 P [place] 45 R [place] 70 T [place] 50 QRS Count 15 Q Onset 215 P Onset 156 P Offset 206 T Offset 398 QTC [place] 414 Diagnosis Normal sinus rhythm Normal ECG When compared with ECG of 15-FEB-2024 20:33, (unconfirmed) No significant change was found See ED provider note for full interpretation and clinical correlation Confirmed by Nikole Banks ([id number]) on 02/16/2024 7:49:25 PM Normal [facility] ECG 12-LEAD Ventricular Rate 95 Atrial Rate 95 P-R Interval 108 QRS Duration 84 Q-T Interval 356 QTC Calculation([place]ett) 447 P [place] 76 R [place] 84 T [place] 43 QRS Count 15 Q Onset 218 P Onset 164 P Offset 209 T Offset 396 QTC [place] 414 Diagnosis Sinus rhythm with short [place] Otherwise normal ECG When compared with ECG of 17-MAR-2023 14:56, Previous ECG has undetermined rhythm, needs review See ED provider note for full interpretation and clinical correlation Confirmed by Nikole Banks ([id number]) on 02/16/2024 7:48:42 PM Normal [facility] Magnesiumon 02-15-2024 Magnesium [Mass/Vol] 1.92 mg/dL Normal 1.60-2.40 [facility] Comment on above: Performed By: #### 1 9123-9 #### ORNELAS KOKO ([id number]) [facility] ([place]) [address] [place] [address] Magnesium [Mass/Vol] 1.92 mg/dL 1.60 - 2.40 mg/dL [facility] Magnesium [Mass/Vol]on 02-14 Interpretation and review of laboratory results Normal [facility] No Panel Informationon 02-14 [facility] Tropinin I.cardiac panel Hig h sensitivity methodon 02-15-2024 Interpretation and review of laboratory results Normal [facility] Less than 99th percentile of normal range cutoff- Female and children under 18 years old <14 ng/L; Male <21 ng/L: Negative Repeat testing should be performed if clinically indicated. Female and children under 18 years old 14-50 ng/L; Male 21-50 ng/L: Consistent with possible cardiac damage and possible increased clinical risk. Serial measurements may help to assess extent of myocardial damage. >50 ng/L: Consistent with cardiac damage, increased clinical risk and myocardial infarction. Serial measurements may help assess extent of myocardial damage. NOTE: Children less than 1 year old may have higher baseline troponin levels and results should be interpreted in conjunction with the overall clinical context. NOTE: Troponin I testing is performed using a different testing methodology at [facility] than at other [facility] [facility] [facility]. Direct result comparisons should only be made within the same method. [facility] Interpretation and review of laboratory results Normal [facility] Less than 99th percentile of normal range cutoff- Female and children under 18 years old <14 ng/L; Male <21 ng/L: Negative Repeat testing should be performed if clinically indicated. Female and children under 18 years old 14-50 ng/L; Male 21-50 ng/L: Consistent with possible cardiac damage and possible increased clinical risk. Serial measurements may help to assess extent of myocardial damage. >50 ng/L: Consistent with cardiac damage, increased clinical risk and myocardial infarction. Serial measurements may help assess extent of myocardial damage. NOTE: Children less than 1 year old may have higher baseline troponin levels and results should be interpreted in conjunction with the overall clinical context. NOTE: Troponin I testing is performed using a different testing methodology at [facility] than at other [facility]. Direct result comparisons should only be made within the same method. [facility] Troponin I, High Sensitivity , Initialon 02-15-2024 Tropinin I.cardiac panel High sensitivity method ng/L 0 - 13 ng/L [facility] Troponin I.cardiac panelon 0 02-15-2024 Tropinin I.cardiac panel High sensitivity method <3 Normal 0-13 [facility] Comment on above: Order Comment: Less than 99th percentile of normal range cutoff- Female and children under 18 years old <14 ng/L; Male <21 ng/L: Negative Repeat testing should be performed if clinically indicated. Female and children under 18 years old 14-50 ng/L; Male 21-50 ng/L: Consistent with possible cardiac damage and possible increased clinical risk. Serial measurements may help to assess extent of myocardial damage. >50 ng/L: Consistent with cardiac damage, increased clinical risk and myocardial infarction. Serial measurements may help assess extent of myocardial damage. NOTE: Children less than 1 year old may have higher baseline troponin levels and results should be interpreted in conjunction with the overall clinical context. NOTE: Troponin I testing is performed using a different testing methodology at [facility] than at other [facility] [facility] [facility]. Direct result comparisons should only be made within the same method. Performed By: #### 8 9577-1 #### ORNELAS KOKO ([id number]) [facility] ([place]) [address] [place] [address] Tropinin I.cardiac panel High sensitivity method <3 Normal 0-13 [facility] Comment on above: Order Comment: Less than 99th percentile of normal range cutoff- Female and children under 18 years old <14 ng/L; Male <21 ng/L: Negative Repeat testing should be performed if clinically indicated. Female and children under 18 years old 14-50 ng/L; Male 21-50 ng/L: Consistent with possible cardiac damage and possible increased clinical risk. Serial measurements may help to assess extent of myocardial damage. >50 ng/L: Consistent with cardiac damage, increased clinical risk and myocardial infarction. Serial measurements may help assess extent of myocardial damage. NOTE: Children less than 1 year old may have higher baseline troponin levels and results should be interpreted in conjunction with the overall clinical context. NOTE: Troponin I testing is performed using a different testing methodology at [facility] than at other [facility] [facility] [facility]. Direct result comparisons should only be made within the same method. Performed By: #### 8 9577-1 #### ORNELAS KOKO ([id number]) [facility] ([place]) [address] [place] [address] Troponin, High Sensitivity, 1 Houron 02-15-2024 Tropinin I.cardiac panel High sensitivity method ng/L 0 - 13 ng/L [facility] XR CHEST 1 VIEWon 02-15-2024 XR CHEST 1 VIEW Interpreted By: Tyesha Landers, STUDY: XR CHEST 1 VIEW;; 02/15/2024 8:35 pm INDICATION: Signs/Symptoms:right arm pain. COMPARISON: 08/27/2021 ACCESSION NUMBER(S): [id number] ORDERING CLINICIAN: CAMERON AVILEZ FINDINGS: The cardiac silhouette is stable for the technique. No consolidations, effusions, infiltrates or pneumothorax. IMPRESSION: No evidence for acute cardiopulmonary process. Signed by: Tyesha Landers 02/15/2024 9:24 PM Dictation workstation: [id number] Normal [facility] XR Chest Single viewon 02-14 No evidence for acut e cardiopulmonary process. Signed by: Tyesha Landers 02/15/2024 9:24 PM Dictation workstation: [id number] Interpreted By: Tyesha Landers, STUDY: XR CHEST 1 VIEW;; 02/15/2024 8:35 pm INDICATION: Signs/Symptoms:right arm pain. COMPARISON: 08/27/2021 ACCESSION NUMBER(S): [id number] ORDERING CLINICIAN: CAMERON AVILEZ FINDINGS: The cardiac silhouette is stable for the technique. No consolidations, effusions, infiltrates or pneumothorax. [facility]ers [facility] - 02/15/2024 Interpreted By: Tyesha Landers, STUDY: XR CHEST 1 VIEW;; 02/15/2024 8:35 pm INDICATION: Signs/Symptoms:right arm pain. COMPARISON: 08/27/2021 ACCESSION NUMBER(S): [id number] ORDERING CLINICIAN: CAMERON AVILEZ FINDINGS: The cardiac silhouette is stable for the technique. No consolidations, effusions, infiltrates or pneumothorax. IMPRESSION: No evidence for acute cardiopulmonary process. Signed by: Tyesha Landers 02/15/2024 9:24 PM Dictation workstation: [id number] [facility] Work Phone: Radiology Study observation (narrative) [facility] Work Phone: XR Chest Single viewOrdered By: Tyesha Landers on 02-15-2024 [facility] Work Phone: URINE CULTURE [CCL]on 2023 Bacteria identified Cx Nom (U) URCUL See Results Below See Below CULTURE, URINE NORMAL UROGENITAL SULAIMAN <10,000 CFU/ml Normal urogenital sulaiman SOURCE: Urine (Nonspecific) [facility] [address] [place] [address] Michael Karimi III, M.D. [id number] SEND TO IC NO Normal [facility] Comment on above: Performed By: #### 2 17709 ####[address] [address] URINALYSISon 02-03-2024 Amorphous NONE Normal [facility] Comment on above: Performed By: #### 2 39771 #### [address] [address] Bacteria 1+ Normal [facility] Comment on above: Performed By: #### 2 37469 #### [facility],[address] [place] [address] Bilirubin Ql (U) Negative Normal NORMAL: NEGATIVE [facility] Comment on above: Performed By: #### 2 61805 #### [facility],[address] [place] [address]50[address] Casts NONE Normal [facility] Comment on above: Performed By: #### 2 56417 #### [facility],[address] [place] [address]6626 Clarity (U) clear Normal NORMAL: CLEAR [facility] Comment on above: Performed By: #### 2 11287 #### [facility],[address] [place], [place] [id number] Color (U) yellow Normal NORMAL: YELLOW [facility] Comment on above: Performed By: #### 2 32454 #### [facility],[address] [place] [address] 25881 Crystals LM Nom (Urine sed) NONE Normal [facility] Comment on above: Performed By: #### 2 93797 #### [facility],[address] [place] [address] 61650 Epi Cells MANY Normal [facility] Comment on above: Performed By: #### 2 94522 #### [facility],[address] [place] [address]7944 Glucose Ql (U) NORM Normal NORMAL: NORMAL [facility] Comment on above: Performed By: #### 2 18457 #### [facility],[address] [place] [address] 65773 Hemoglobin Ql (U) Negative Normal NORMAL: NEGATIVE [facility] Comment on above: Performed By: #### 2 12429 #### [facility],[address] [place] [address]3888 Ketone Negative Normal NORMAL: NEGATIVE [facility] Comment on above: Performed By: #### 2 04144 #### [facility],[address] [place] [address] Leukocytes 500 Abnormal NORMAL: NEGATIVE [facility] Comment on above: Performed By: #### 2 37066 #### [facility],[address] [place] [address] Mucous NONE Normal [facility] Comment on above: Performed By: #### 2 93954 #### [facility],[address] [place] [address] Nitrite Ql (U) Negative Normal NORMAL: NEGATIVE [facility] Comment on above: Performed By: #### 2 94223 #### [facility],[address] [place] [address] pH (U) 5 [pH] Normal NORMAL: 5.0-8.0 [facility] Comment on above: Performed By: #### 2 79475 #### [facility],[address] [place] [address] Protein Ql (U) 15 Abnormal NORMAL: NEGATIVE [facility] Comment on above: Performed By: #### 2 95023 #### [facility],[address] [place] [address] Rbc NONE Normal 0-3/hpf [facility] Comment on above: Performed By: #### 2 13522 #### [facility],[address] [place] [address] Sp [place] 1.020 Normal NORMAL: 1.010-1.030 [facility] Comment on above: Performed By: #### 2 58865 #### [facility],[address] [place] [address] Specimen Type UNSPECIFIED Normal [facility] Comment on above: Performed By: #### 2 16865 #### [facility],[address] [place] [address] Urinalysis dipstick W Reflex Microscopic panel (U) SEE BELOW Normal [facility] Comment on above: Result Comment: MICR OSCOPIC Performed By: #### 2 33418 #### [facility],[address] [place] [address]1336 Urobilinog NORM Normal NORMAL: NORMAL [facility] Comment on above: Performed By: #### 2 29679 #### [facility],[address] [place] [address] 49932 Wbc 6-10 Normal 0-5/hpf [facility] Comment on above: Performed By: #### 2 92283 #### [facility],[address] [place] [address] 15756 Yeast NONE Normal [facility] Comment on above: Performed By: #### 2 78144 #### [facility],[address] [place] [address] 21378 C-REACTIVE PROTEINon 024 CRP 0.21 mg/dl Normal 0.00 - 0.90 [facility] Comment on above: Performed By: #### 2 40026 #### [facility],[address] [place] [address] 25491 CBC + DIFFon 02-02-2024 Baso # 0.04 x10EE3/UL Normal 0.00 - 0.10 [facility] Comment on above: Performed By: #### 2 59542 ####[facility],[address] [place] [address] 81181 Basophils/100 WBC (Bld) 0.4 % Normal 0.0 - 2.[address] [facility] Comment on above: Performed By: #### 2 21837 ####[facility],[address] [place] [address] 01691 CBC + DIFF Normal [facility] Comment on above: Result Comment: CBC- COMPLETE BLOOD COUNT Performed By: #### 2 26388 ####[facility],[address] [place] [address] 30649 EO # 0.25 x10EE3/UL Normal 0.00 - 0.50 [facility] Comment on above: Performed By: #### 2 52135 ####[facility],[address] [place] [address] 07182 Eosinophils/100 WBC (Bld) 2.5 % Normal 0.0 - 7.0 [facility] Comment on above: Performed By: #### 2 87101 ####[facility],[address] [place] [address] Erythrocyte distribution width (RBC) [Ratio] 13.9 % Normal 12.0 - 15.6 [facility] Comment on above: Performed By: #### 2 56467 ####[facility],[address] [place] [address] Hematocrit (Bld) [Volume fraction] 44.9 % Normal 34.0 - 46.0 [facility] Comment on above: Performed By: #### 2 63635 ####[facility],[address] [place] [address] Hemoglobin (Bld) [Mass/Vol] 15.2 g/dL Normal 12.0 - 16.0 [facility] Comment on above: Performed By: #### 2 92063 ####[facility],[address] [place] [address] 79978 Lymph # 1.77 x10EE3/UL Normal 0.80 - 2.80 [facility] Comment on above: Performed By: #### 2 74084 ####[facility],[address] [place], [place] [id number] Lymphocytes/100 WBC (Bld) 17.5 % Low 20.0 - 45.0 [facility] Comment on above: Performed By: #### 2 04875 ####[facility],[address] [place], [place] [id number] MANUAL DIFF N/A Normal [facility] Comment on above: Performed By: #### 2 52415 ####[facility],[address] [place], [place] [address] MCH (RBC) [Entitic mass] 30 pg Normal 27 - 33 [facility] Comment on above: Performed By: #### 2 82964 ####[facility],[address] [place] [address] MCHC 34 X10 3 Normal 32 - 36 [facility] Comment on above: Performed By: #### 2 68850 ####[facility],[address] [place] [address] MCV (RBC) [Entitic vol] 88 fL Normal 80 - [address] [facility] Comment on above: Performed By: #### 2 08911 ####[place] [address] [place] # 0.72 x10EE3/UL Normal 0.20 - 1.00 [facility] Comment on above: Performed By: #### 2 79240 ####[place] [address] MONOS % 7.1 % Normal 0.0 - 10.0 [facility] Comment on above: Performed By: #### 2 69468 ####[place] [address] Morphology Florentino (Bld) [Interp] N/A Normal [facility] Comment on above: Performed By: #### 2 74129 ####[place] [address] Neut # 7.37 x10EE3/UL High 1.50 - 7.10 [facility] Comment on above: Performed By: #### 2 00377 ####[place] [address] Neutrophils/100 WBC (Bld) 72.6 % Normal 46.0 - 76.0 [facility] Comment on above: Performed By: #### 2 96352 ####[place] [address] PLATELET 353 x10EE3/UL Normal 150 - 450 [facility] Comment on above: Performed By: #### 2 22354 ####[facility],[address] [place] [address] 07932 Platelet mean volume (Bld) [Entitic vol] 7.1 fL Normal 6.6 - 10.5 [facility] Comment on above: Result Comment: AUTO MATED DIFFERENTIAL Performed By: #### 2 15492 ####[facility],[address] [place] [address] 96177 RBC 5.10 x 10EE6/UL Normal 4.10 - 5.30 [facility] Comment on above: Performed By: #### 2 71833 ####[facility],[address] [place] [address]7866 WBC 10.2 x 10EE3/UL Normal 4.5 - 10.8 [facility] Comment on above: Performed By: #### 2 20734 ####[facility],[address] [place] [address]15 CMP with eGFRon 02-02-2024 AGE 33 years Normal [facility] Comment on above: Performed By: #### 2 38790 #### [facility],[address] [place] [address] 886[address] Albumin [Mass/Vol] 3.1 g/dL Low 3.4 - 5.0 [facility] Comment on above: Performed By: #### 2 91830 #### [facility],[address] [place] [address] 46700 Albumin/Globulin [Mass ratio] 0.8 {ratio} Low 0.9 - 1.6 [facility] Comment on above: Performed By: #### 2 63627 #### [facility],[address] [place] [address]803 ALK PHOS 99 U/L Normal 46 - 116 [facility] Comment on above: Performed By: #### 2 38804 #### [facility],[address] [place] [address] 58039 ALT [Catalytic activity/Vol] 26 U/L Normal 16 - 63 [facility] Comment on above: Performed By: #### 2 25254 #### [facility],[address] [place] [address] 27110 Anion gap [Moles/Vol] 13 mmol/L Normal 10 - 20 [facility] Comment on above: Performed By: #### 2 62815 #### [facility],[address] [place], [place] [id number] AST [Catalytic activity/Vol] 10 U/L Low 13 - 39 [facility] Comment on above: Performed By: #### 2 74150 #### [facility],[address] [place], [place] [id number] B/C RATIO 15 ratio Normal 0 - 30 [facility] Comment on above: Performed By: #### 2 68189 #### [facility],[address] [place] [address] 41688 Bilirubin [Mass/Vol] 0.2 mg/dL Normal 0.2 - 1.0 [facility] Comment on above: Performed By: #### 2 74069 #### [facility],[address] [place] [address] 12956 Calcium [Mass/Vol] 8.8 mg/dL Normal 8.5 - 10.1 [facility] Comment on above: Performed By: #### 2 70451 #### [facility],[address] [place] [address] 62718 Chloride [Moles/Vol] 104 mmol/L Normal 98 - 107 [facility] Comment on above: Performed By: #### 2 12193 #### [facility],[address] [place] [address] 64805 CMP with eGFR Normal [facility] Comment on above: Result Comment: COMP REHENSIVE METABOLIC PANEL Performed By: #### 2 83954 #### [facility],[address] [place] [address] 23907 CO2 [Moles/Vol] 26.1 mmol/L Normal 21.0 - 32.0 [facility] Comment on above: Performed By: #### 2 56933 #### [facility],[address] [place] [address] 09651 Creatinine [Mass/Vol] 0.96 mg/dL Normal 0.55 - 1.02 [facility] Comment on above: Performed By: #### 2 38266 #### [facility],[address] [place] [address] GFR/1.73 sq M.predicted among non-blacks MDRD (S/P/Bld) [Vol rate/Area] mL/min/{1.73_m2} Normal 60 - 999 [facility] Comment on above: Performed By: #### 2 02242 #### [facility],[address] [place] [address] Result Comment: ACCO RDING TO THE NATIONAL KIDNEY DISEASE EDUCATION PROGRAM(NKDE), A NORMAL eGFR IS A VALUE GREATER THAN OR EQUAL TO 60 ML/MIN/1.73 SQ METERS. CHRONIC KIDNEY DISEASE: <60mL/MIN/1.73 SQ METERS KIDNEY FAILURE: <15mL/MIN/1.73 SQ METERS THIS TEST SHOULD ONLY BE USED FOR PATIENTS 18 YEARS OF AGE AND OLDER. Globulin (S) [Mass/Vol] 3.8 g/dL Normal 1.5 - 3.8 [facility] Comment on above: Performed By: #### 2 25614 #### [facility],[address] [place] [address] 98677 Glucose [Mass/Vol] 98 mg/dL Normal 74 - 106 [facility] Comment on above: Performed By: #### 2 91317 #### [facility],[address] [place] [address] 66767 Potassium [Moles/Vol] 3.8 mmol/L Normal 3.5 - 5.1 [facility] Comment on above: Performed By: #### 2 29995 #### [facility],[address] [place], [place] [id number] Protein [Mass/Vol] 6.9 g/dL Normal 6.4 - 8.2 [facility] Comment on above: Performed By: #### 2 93292 #### [facility],[address] [place] [address] Sodium [Moles/Vol] 139 mmol/L Normal 136 - 145 [facility] Comment on above: Performed By: #### 2 82020 #### [facility],[address] [place] [address] Urea nitrogen [Mass/Vol] 14 mg/dL Normal 7 - 18 [facility] Comment on above: Performed By: #### 2 43053 #### [facility],[address] [place] [address] CT ABDOMEN/PELVIS Won 2023 CT ABDOMEN/PELVIS W [place] [address] Patient: BECKI JACKSON Phone#: : 1990 Age: 33 Gender: F Pt. Type: ER Account: [id number] Location: [facility] Ordering: RUDI DUVAL Exam Date: 02/02/2024/21:43 Family Phys: KAYLEY DOBSON Charge Code: [id number] Physician: Richardson Order #: [id number] Dose#: 28.80 PROCEDURE: CT ABDOMEN/PELVIS WITH CONTRAST COMPARISON: [facility], CT, ABDOMEN/PELVIS W CON, 09/20/2023, 16:30. INDICATIONS: Right upper quadrant pain. TECHNIQUE: After obtaining the patient's consent, CT images were created with non-ionic intravenous contrast material. All CT scans at this facility use dose modulation, iterative reconstruction, and/or weight based dosing when appropriate to reduce radiation dose to as low as reasonably achievable. IV CONTRAST: Omnipaque 350,100ml TOTAL DOSE: 28.80 CTDIvol(mGy) FINDINGS: LIVER: Normal. No enlargement, atrophy, abnormal density, or significant focal lesion. BILIARY: Gallbladder is absent, surgical clips are in the gallbladder fossa. PANCREAS: Normal. No lesion, fluid collection, ductal dilatation, or atrophy. SPLEEN: Normal. No enlargement or focal lesion. KIDNEYS: Kidneys enhance and excrete contrast symmetrically. No hydronephrosis. ADRENALS: Normal. No mass or enlargement. AORTA/VASCULAR: No aortic aneurysm. RETROPERITONEUM: Normal. No mass or adenopathy. BOWEL/MESENTERY: No bowel obstruction or dilatation. There is ingested material in the stomach. No significant stool burden. Appendix is unremarkable in size and contains air. ABDOMINAL WALL: Normal. No mass or hernia. URINARY BLADDER: Urinary bladder is decompressed. Wall appears thickened. PELVIC NODES: Normal. No adenopathy. PELVIC ORGANS: Uterus is present. No adnexal mass. BONES: Disc height loss at L4-5. LUNG BASES: Normal. No visible pulmonary or pleural disease. OTHER: Negative. Continued Report - Page 2 of 2 Patient: BECKI JACKSON Phone#: : 1990 Age: 33 Gender: F Pt. Type: ER Account: [id number] Location: 052 Ordering: RUDI DUVAL Exam Date: 02/02/2024/21:43 Family Phys: KAYLEY DOBSON Charge Code: [id number] Physician: Richardson Order #: [id number] Dose#: 28.80 CONCLUSION: 1. Bladder wall thickening versus underdistention, correlate for cystitis. 2. Otherwise no acute intra-abdominal or pelvic abnormality. Dictated by: Heather Ken MD on 02/03/2024 at 10:08 Approved by: Heather Ken MD on 02/03/2024 at 10:[address] [facility] [address] CHEST (PE PROTOCOL)on CT CHEST (PE PROTOCOL) [place] [address] Patient: BECKI JACKSON Phone#: : 1990 Age: 33 Gender: F Pt. Type: ER Account: [id number] Location: 052 Ordering: RUDI DUVAL Exam Date: 02/02/2024/21:43 Family Phys: KAYLEY DOBSON Charge Code: [id number] Physician: Richardson Order #: [id number] Dose#: 9.10 PROCEDURE: CT CHEST WITH CONTRAST FOR PE COMPARISON: [facility], CT, CHEST PE W CON, 09/20/2023, 16:30. INDICATIONS: Embolism. TECHNIQUE: After obtaining the patient's consent, CT images were obtained with non-ionic intravenous contrast material. Multi-planar images were created to optimize visualization of vascular anatomy with MPR/MIPS and 3D imaging. All CT scans at this facility use dose modulation, iterative reconstruction, and/or weight based dosing when appropriate to reduce radiation dose to as low as reasonably achievable. IV CONTRAST: Omnipaque 350,100ml TOTAL DOSE: 9.10 CTDIvol(mGy) FINDINGS: VASCULATURE: No pulmonary emboli AORTA: No aortic aneurysm LUNGS: Normal. No visible pulmonary disease. ANTONI: Normal. No mass or adenopathy. MEDIASTINUM: Normal. No mass or adenopathy. CARDIAC: Normal. No enlargement, pericardial thickening, or significant calcification. PLEURA: Normal. No mass or effusion. CHEST WALL: Normal. No mass or axillary adenopathy. LIMITED ABDOMEN: Stomach is filled with ingested material. BONES: Normal. No bony lesion or fracture. OTHER: Negative. CONCLUSION: 1. No pulmonary embolism. No acute pulmonary parenchymal abnormality. Dictated by: Heather Ken MD on 02/03/2024 at 9:54 Continued Report - Page 2 of 2 Patient: BECKI JACKSON Phone#: : 1990 Age: 33 Gender: F Pt. Type: ER Account: [id number] Location: 052 Ordering: RUDI DUVAL Exam Date: 02/02/2024/21:43 Family Phys: KAYLEY DOBSON Charge Code: [id number] Physician: Richardson Order #: [id number] Dose#: 9.10 Approved by: Heather Ken MD on 02/03/2024 at 10:04 Normal [facility] LIPASEon 02-02-2024 Lipase [Catalytic activity/Vol] 25.0 U/L Normal 15.0 - 78.0 [facility] Comment on above: Result Comment: *PLE ASE NOTE THAT RANGES FOR LIPASE HAVE CHANGED OF 10/22/23 DUE TO AN ASSAY UPDATE BY THE RECTIFYING ATTENDANT.THE NEW ASSAY RANGE IS 6-250 U/L, WITH A REFERENCE RANGE OF 16-77 U/L. Performed By: #### 2 17197 #### [facility],[address] [place] [address] SERUM QUALon 02-01 EXTERNAL QC DONE? YES Normal [facility] Comment on above: Performed By: #### 2 72196 #### [facility],[address] [place] [address] INTERNAL QC PASS Normal [facility] Comment on above: Performed By: #### 2 92773 #### [facility],[address] [place] [address] SER Negative Normal NEGATIVE [facility] Comment on above: Performed By: #### 2 85384 #### [facility],[address] [place] [address] Absolute lymphocyte countOrd ered By: Sasha Villarreal on 01-12-2024 Lymphocytes Auto (Unsp spec) [#/Vol] 1.98 10*3/uL 0.83-4.51 [facility] Automated lymphocyte count a s percentage of total leukocytesOrdered By: Sasha Villarreal on 01-12-2024 Lymphocytes/100 WBC Auto (Unsp spec) 26.0 % 19-41 [facility] Basophil percentageOrdered B y: Sasha Villarreal on 01-12-2024 Basophil percentage 10-25 SEEN /hpf 0-5 [facility] Basophils/100 WBC (Bld) 1.0 % 0-[address] [facility] Bilirubin [Mass/Vol] 0.40 mg/dL 0.20-1.00 [facility] Comment on above: For patients on eltr ombopag therapy, use of Dimension [place] TBIL is not recommended. Chloride [Moles/Vol] 109 mmol/L 98-107 [facility] Eosinophils/100 WBC (Bld) 4.2 % 0-5 [facility] Glucose [Mass/Vol] 98 mg/dL 74-106 [facility] Hemoglobin (Bld) [Mass/Vol] 14.4 g/dL 12.0-15.0 [facility] Monocytes/100 WBC (Bld) 8.7 % 0-[address] [facility] Neutrophils (Bld) [#/Vol] 4.6 10*3/uL 2.0-7.7 [facility] Neutrophils/100 WBC (Bld) 59.8 % 47-70 [facility] Potassium [Moles/Vol] 3.9 mmol/L 3.5-5.1 [facility] Protein [Mass/Vol] 7.5 g/dL 6.4-8.2 [facility] Sodium [Moles/Vol] 141 mmol/L 136-145 [facility] WBC (Bld) [#/Vol] 7.6 10*3/uL 4.4-11.0 [facility] Bilirubin Test strip Ql (U)O rdered By: Sasha Villarreal on 01-12-2024 Bilirubin Ql (U) Negative Negative [facility] Determination of erythrocyte mean corpuscular volume (MCV)Ordered By: Sasha Villarreal on 01-12-2024 MCV (RBC) [Entitic vol] 88.0 fL 81-[address] [facility] Direct bilirubinOrdered By: Sasha Villarreal on 01-12-2024 Bilirubin.direct [Mass/Vol] 0.15 mg/dL 0.00-0.30 [facility] Erythrocyte distribution wid th ratioOrdered By: Sasha Villarreal on 01-12-2024 Erythrocyte distribution width (RBC) [Ratio] 13.4 % 11.6-14.6 [facility] Erythrocyte distribution wid th standard deviationOrdered By: Sasha Villarreal on 01-12-2024 Erythrocyte distribution width (RBC) [Entitic vol] 43.1 fL 35.1-43.9 [facility] Hematocrit Auto (Bld) [Volum e fraction]Ordered By: Sasha Villarreal on 01-12-2024 Hematocrit (Bld) [Volume fraction] 43.8 % 37-47 [facility] Immature granulocytes/100 WB C Auto (Bld)Ordered By: Sasha Villarreal on 01-12-2024 Immature granulocytes/100 WBC (Bld) 0.300 % 0.0-0.9 [facility] Comment on above: IG% - Immature Granu locytes (promyelocytes, myelocytes and metamyelocytes) > 1% indicates that a LEFT SHIFT is Present. Ketones Test strip Ql (U)Ord ered By: Sasha Villarreal on 01-12-2024 Ketones Ql (U) Negative Negative [facility] Laboratory - Chemistry and C hemistry - challengeOrdered By: Sasha Villarreal on 01-12-2024 ALP [Catalytic activity/Vol] 109 U/L 45-117 [facility] ALT [Catalytic activity/Vol] 25 U/L 13-56 [facility] CO2 [Moles/Vol] 26.0 mmol/L 21.0-32.0 [facility] Globulin (S) [Mass/Vol] 3.7 g/dL 2.2-4.[address] [facility] Lipase [Catalytic activity/Vol] 23 U/L - [facility] Comment on above: Please note:LIPASE r evised reference range effective 23. New Lipase methodology. Expected to produce lower values than the previous assay method. NEW Reference Range: 13 - 75 U/L Urea nitrogen/Creatinine [Mass ratio] 10.5 mg/mg 10- [facility] Laboratory - Hematology and Cell countsOrdered By: Sasha Villarreal on 01-12-2024 MCH (RBC) [Entitic mass] 28.9 pg 27.0-32.0 [facility] MCHC (RBC) [Mass/Vol] 32.9 g/dL 32-36 [facility] Nucleated RBC/100 WBC (Bld) [Ratio] 0 % 0-5 [facility] Platelet mean volume (Bld) [Entitic vol] 8.9 fL 6.2-12.0 [facility] Platelets (Bld) [#/Vol] 363 10*3/uL 150-450 [facility] Mucus LM Ql (Urine sed)Order ed By: Sasha Villarreal on 01-12-2024 Mucus Ql (Urine sed) 0 SEEN /hpf [facility] Nitrite Test strip Ql (U)Ord ered By: Sasha Villarreal on 01-12-2024 Nitrite Ql (U) Negative Negative [facility] No Panel InformationOrdered By: Sasha Villarreal on 01-12-2024 Urine RBC 0 SEEN /hpf 0-5 [facility] Estimated Creatinine Clearance Calc 110.20 ml/min [facility] Estimated GFR (MDRD) Amer 98 mL/min >60 [facility] Comment on above: GFR Calc Estimated GFR (MDRD) Non-Af Amer 81 mL/min >60 [facility] Comment on above: Non- GFR Calc Protein Test strip Ql (U)Ord ered By: Sasha Villarreal on 01-12-2024 Protein Ql (U) 15 mg/dl Negative [facility] RBC Auto (Bld) [#/Vol]Ordere d By: Sasha Villarreal on 01-12-2024 RBC (Bld) [#/Vol] 4.98 10*6/uL 4.2-5.4 [facility] Serum or plasma calcium yolie urement (mass/volume)Ordered By: Sasha Villarreal on 01-12-2024 Calcium [Mass/Vol] 9.0 mg/dL 8.5-10.1 [facility] Serum or plasma choriogonado tropin detectionOrdered By: Sasha Villarreal on 01-12-2024 HCG ( test) Ql Negative [facility] Serum or plasma creatinine m easurement (mass/volume)Ordered By: Sasha Villarreal on 01-12-2024 Creatinine [Mass/Vol] 0.86 mg/dL 0.55-1.02 [facility] Comment on above: The validity of the calculated GFR & GFRAA in patients over 70 years has not been determined. Clinical correlation is essential. Serum or plasma urea nitroge n measurement (mass/volume)Ordered By: Sasha Villarreal on 01-12-2024 Urea nitrogen [Mass/Vol] 9 mg/dL 7-18 [facility] Squamous epithelial cells de tection in urine sediment by light microscopyOrdered By: Sasha Villarreal on 01-12-2024 Epithelial cells.squamous LM Ql (Urine sed) 0-5 SEEN /hpf 5-10 [facility] Thin prep Papanicolaou smear with manual screeningOrdered By: Sasha Villarreal on 01-12-2024 Thin prep Papanicolaou smear with manual screening 3.8 g/dL 3.2-5.0 [facility] Thin prep Papanicolaou smear with manual screening 16 U/L 15-37 [facility] Thin prep Papanicolaou smear with manual screening 6 5-15 [facility] Urine blood detectionOrdered By: Sasha Villarreal on 01-12-2024 RBC Ql (U) Negative Negative [facility] Urine clarityOrdered By: Laura Villarreal on 01-12-2024 Clarity (U) Clear Clear [facility] Urine color determinationOrd ered By: Sasha Villarreal on 01-12-2024 Color (U) Yellow Yellow [facility] Urine glucose detectionOrder ed By: Sasha Villarreal on 01-12-2024 Glucose Ql (U) Normal mg/dl Normal [facility] Urine leukocyte esterase det ection by dipstickOrdered By: Sasha Villarreal on 01-12-2024 Leukocyte esterase Test strip Ql (U) 500 /ul Negative [facility] Urine pHOrdered By: Sasha schumacher on 01-12-2024 pH (U) 5.0 [pH] 5.0 - 8.0 [facility] Urine sediment bacteria coun t by microscopy (number/high power field)Ordered By: Sasha Villarreal on 01-12-2024 Bacteria LM.HPF (Urine sed) [#/Area] 2 /[HPF] None Seen [facility] Urine specific gravity measu rementOrdered By: Sasha Villarreal on 01-12-2024 Specific gravity (U) [Rel density] 1.025 1.002-1.030 [facility] Urine urobilinogen measureme ntOrdered By: Sasha Villarreal on 01-12-2024 Urobilinogen Ql (U) Normal mg/dl Normal [facility] Basic metabolic 2000 panelon 12-10-2023 Anion gap [Moles/Vol] 6 mmol/L Low 9-18 [facility] Comment on above: Order Comment: Speci men Type: BLOOD SPECIMENOrdering Facility: [facility] Address: [address] [place] [address] [place] [address] Performed By: #### 1 9123-9, 2777-1, 70315-6, 06440-7 ####[facility] JOS[facility] LABORATORYCLIA [id number] [place] [id number] [place] Calcium [Mass/Vol] 8.4 mg/dL Low 8.5-10.2 [facility] Comment on above: Order Comment: Speci men Type: BLOOD SPECIMENOrdering Facility: [facility] Address: [address] [place] [address] Performed By: #### 1 9123-9, 2777-1, 63987-2, 46988-2 ####[facility] LABORATORYCLIA [id number] [place] [id number] [place] Chloride [Moles/Vol] 106 mmol/L High 97-105 [facility] Comment on above: Order Comment: Speci men Type: BLOOD SPECIMENOrdering Facility: [facility] Address: [address] [place] [address] Performed By: #### 1 9123-9, 2777-1, 68088-1, 44049-3 ####[facility] LABORATORYCLIA [id number] [place] [address] [place] CO2 [Moles/Vol] 24 mmol/L Normal 22-30 [facility] Comment on above: Order Comment: Speci men Type: BLOOD SPECIMENOrdering Facility: [facility] Address: [address] [place] [address] Performed By: #### 1 9123-9, 2777-1, 90728-5, 67759-3 ####[facility] LABORATORYCLIA [id number] [place] [id number] [place] Creatinine [Mass/Vol] 0.86 mg/dL Normal 0.58-0.96 [facility] Comment on above: Order Comment: Speci men Type: BLOOD SPECIMENOrdering Facility: [facility] Address: [address] [place] [address] Performed By: #### 1 9123-9, 2777-1, 18878-7, 26923-9 ####[facility] LABORATORYCLIA [id number] [place] [address] [place] Creatinine and Glomerular filtration rate.predicted panel (S/P/Bld) 92 mL/min/1.73m??? Normal >=60 [facility] Comment on above: Order Comment: Bijandarryn colunga Type: BLOOD SPECIMENOrdering Facility: [facility] Address: [address] [place] [address] Result Comment: Jeremy mated Glomerular Filtration Rate (eGFR) is calculated using the 2020 CKD-EPI creatinine equation. This equation utilizes serum creatinine, sex, and age as parameters. The creatinine assay has traceable calibration to isotope dilution-mass spectrometry. Refer to KDIGO guidelines for clinical interpretation. In patients with unstable renal function, e.g. those with acute kidney injury, the eGFR may not accurately reflect actual GFR. Performed By: #### 1 9123-9, 2777-1, 00687-8, 77884-3 ####[facility] LABORATORYCLIA [id number] [place] [address] [place] Glucose [Mass/Vol] 88 mg/dL Normal 74-99 [facility] Comment on above: Order Comment: Clemencia colunga Type: BLOOD SPECIMENOrdering Facility: [facility] Address: [address] [place] [address] Result Comment: The [place] Diabetes Association (ADA) provides guidance for cutoff values for fasting glucose and random glucose. The ADA defines fasting as no caloric intake for at least 8 hours. Fasting plasma glucose results between 100 to 125 mg/dL indicate increased risk for diabetes (prediabetes). Fasting plasma glucose results greater than or equal to 126 mg/dL meet the criteria for diagnosis of diabetes. In the absence of unequivocal hyperglycemia, results should be confirmed by repeat testing. In a patient with classic symptoms of hyperglycemia or hyperglycemic crisis, random plasma glucose results greater than or equal to 200 mg/dL meet the criteria for diagnosis of diabetes. Reference: Standards of Medical Care in Diabetes 2016, [place] [employer] Association. Diabetes Care. 2016.39(Suppl 1). Performed By: #### 1 9123-9, 2777-1, 75258-2, 11019-2 ####[facility] LABORATORYCLIA [id number] [place] [id number] [place] Potassium [Moles/Vol] 4.6 mmol/L Normal 3.7-5.1 [facility] Comment on above: Order Comment: Speci men Type: BLOOD SPECIMENOrdering Facility: [facility] Address: [address] [place] [address] Performed By: #### 1 9123-9, 2777-1, 51204-2, 25425-2 ####[facility] LABORATORYCLIA [id number] [place] [address] [place] Sodium [Moles/Vol] 136 mmol/L Normal 136-144 [facility] Comment on above: Order Comment: Speci men Type: BLOOD SPECIMENOrdering Facility: [facility] Address: [address] [place] [address] Performed By: #### 1 9123-9, 2777-1, 42170-9, 16107-3 ####[facility] CENTERCLIA [id number] [place] [address] [place] Urea nitrogen [Mass/Vol] 13 mg/dL Normal 7-21 [facility] Comment on above: Order Comment: Speci men Type: BLOOD SPECIMENOrdering Facility: [facility] Address: [address] [place] [address] Performed By: #### 1 9123-9, 2777-1, 91991-6, 92299-8 ####[facility] LABORATORYCLIA [id number] [place] [address] [place] CBC panel Auto (Bld)on 12-10 Erythrocyte distribution width (RBC) [Ratio] 13.4 % Normal 11.5-15.0 [facility] Comment on above: Order Comment: Speci men Type: BLOOD SPECIMENOrdering Facility: [facility] Address: [address] [place] [address] Performed By: #### 5 8410-2 ####[facility] LABORATORYCLIA [id number] [place] [address] [place] Hematocrit (Bld) [Volume fraction] 35.3 % Low 36.0-46.0 [facility] Comment on above: Order Comment: Speci men Type: BLOOD SPECIMENOrdering Facility: [facility] Address: [address] [place] [address] Performed By: #### 5 8410-2 ####[facility] LABORATORYCLIA [id number] [place] [address] [place] Hemoglobin (Bld) [Mass/Vol] 11.6 g/dL Normal 11.5-15.5 [facility] Comment on above: Order Comment: Speci men Type: BLOOD SPECIMENOrdering Facility: [facility] Address: [address] [place] [address] Performed By: #### 5 8410-2 ####[facility] LABORATORYCLIA [id number] [place] [address] [place] MCH (RBC) [Entitic mass] 30.0 pg Normal 26.0-34.0 [facility] Comment on above: Order Comment: Speci men Type: BLOOD SPECIMENOrdering Facility: [facility] Address: [address] [place] [address] Performed By: #### 5 8410-2 ####[facility] LABORATORYCLIA [id number] [place] [address] [place] MCHC (RBC) [Mass/Vol] 32.9 g/dL Normal 30.5-36.0 [facility] Comment on above: Order Comment: Speci men Type: BLOOD SPECIMENOrdering Facility: [facility] Address: [address] [place] [address] Performed By: #### 5 8410-2 ####[facility] LABORATORYCLIA [id number] [place] [address] [place] MCV (RBC) [Entitic vol] 91.2 fL Normal 80.0-100.0 [facility] Comment on above: Order Comment: Speci men Type: BLOOD SPECIMENOrdering Facility: [facility] Address: [address] [place] [address] Performed By: #### 5 8410-2 ####[facility] LABORATORYCLIA [id number] [place] [id number] [place] Nucleated RBC (Bld) [#/Vol] 10*3/uL Normal <0.01 [facility] Comment on above: Order Comment: Speci men Type: BLOOD SPECIMENOrdering Facility: [facility] Address: [address] [place] [address] Performed By: #### 5 8410-2 ####[facility] LABORATORYCLIA [id number] [place] [address] [place] Platelet mean volume (Bld) [Entitic vol] 8.8 fL Low 9.0-12.7 [facility] Comment on above: Order Comment: Speci men Type: BLOOD SPECIMENOrdering Facility: [facility] Address: [address] [place] [address] Performed By: #### 5 8410-2 ####[facility] LABORATORYCLIA [id number] [place] [id number] [place] Platelets (Bld) [#/Vol] 226 10*3/uL Normal 150-400 [facility] Comment on above: Order Comment: Speci men Type: BLOOD SPECIMENOrdering Facility: [facility] [facility] Address: [address] [place] [address] Performed By: #### 5 8410-2 ####[facility] LABORATORYCLIA [id number] [place] [id number] [place] RBC (Bld) [#/Vol] 3.87 10*6/uL Low 3.90-5.20 [facility] Comment on above: Order Comment: Speci men Type: BLOOD SPECIMENOrdering Facility: [facility] Address: [address] [place] [address] Performed By: #### 5 8410-2 ####[facility] LABORATORYCLIA [id number] [place] [id number] [place] WBC (Bld) [#/Vol] 5.09 10*3/uL Normal 3.70-11.00 [facility] Comment on above: Order Comment: Speci men Type: BLOOD SPECIMENOrdering Facility: [facility] Address: [address] [place] [address] Performed By: #### 5 8410-2 ####[facility] LABORATORYCLIA [id number] [place] [address] [place] Hepatic function 2000 panelo n 12-10-2023 Albumin [Mass/Vol] 3.1 g/dL Low 3.9-4.9 [facility] Comment on above: Order Comment: Speci men Type: BLOOD SPECIMENOrdering Facility: [facility] Address: [address] [place] [address] Performed By: #### 1 9123-9, 2777-1, 69700-6, 86792-4 ####[facility] LABORATORYCLIA [id number] [place] [address] [place] ALP [Catalytic activity/Vol] 158 U/L High 34-123 [facility] Comment on above: Order Comment: Speci men Type: BLOOD SPECIMENOrdering Facility: [facility] Address: [address] [place] [address] Performed By: #### 1 9123-9, 2777-1, 78826-8, 34853-0 ####[facility] LABORATORYCLIA [id number] [place] [address] [place] ALT [Catalytic activity/Vol] 176 U/L High 7-38 [facility] Comment on above: Order Comment: Speci men Type: BLOOD SPECIMENOrdering Facility: [facility] Address: [address] [place] [address] Performed By: #### 1 9123-9, 2777-1, 00011-5, 96956-2 ####[facility] LABORATORYCLIA [id number] [place] [id number] [place] AST [Catalytic activity/Vol] 22 U/L Normal 13-35 [facility] Comment on above: Order Comment: Speci men Type: BLOOD SPECIMENOrdering Facility: [facility] Address: [address] [place] [address] Performed By: #### 1 9123-9, 2777-1, 63354-9, 72626-5 ####[facility] LABORATORYCLIA [id number] [place] [id number] [place] Bilirubin [Mass/Vol] mg/dL Low 0.2-1.3 [facility] Comment on above: Order Comment: Speci men Type: BLOOD SPECIMENOrdering Facility: [facility] Address: [address] [place] [address] Performed By: #### 1 9123-9, 2777-1, 09994-6, 42701-9 ####[facility] LABORATORYCLIA [id number] [place] [address] [place] Bilirubin.conjugated [Mass/Vol] mg/dL Normal <0.2 [facility] Comment on above: Order Comment: Speci men Type: BLOOD SPECIMENOrdering Facility: [facility] Address: [address] [place] [address] Performed By: #### 1 9123-9, 2777-1, 01397-2, 89942-1 ####[facility] LABORATORYCLIA [id number] [place] [address] [place] Protein [Mass/Vol] 5.2 g/dL Low 6.3-8.0 [facility] Comment on above: Order Comment: Speci men Type: BLOOD SPECIMENOrdering Facility: [facility] Address: [address] [place] [address] Performed By: #### 1 9123-9, 2777-1, 73527-8, 72021-6 ####[facility] LABORATORYCLIA [id number] [place] [address] [place] Magnesium SerPl-mCncon 12-10 Magnesium [Mass/Vol] 1.8 mg/dL Normal 1.7-2.3 [facility] Comment on above: Order Comment: Speci men Type: BLOOD SPECIMENOrdering Facility: [facility] Address: [address] [place], [place] [address] Performed By: #### 1 9123-9, 2777-1, 22736-3, 69349-4 ####[facility] JOSY LABORATORYCLIA [id number] [place] [id number] [place] NURSING PROGon 12-10-2023 NURSING PROG HNO ID: [id number] Author: KINA CARY, RN Service: Nursing Author Type: Registered Nurse Type: Nursing Progress Note Filed: 12/10/2023 05:07 Note Text: Other: 2029: Received report from day shift RN. 2058: Completed assessment, pt expresses no concerns at this time 0445: NA notified me about pt low BP. Completed manual BP. Pt states she is dizzy and has been dizzy all day. Spoke with MISSY RN. Normal [facility] Phosphate SerPl-mCncon 12-10 Phosphate [Mass/Vol] 3.9 mg/dL Normal 2.7-4.8 [facility] Comment on above: Order Comment: Speci men Type: BLOOD SPECIMENOrdering Facility: [facility] Address: [address] [place] [address] Performed By: #### 1 9123-9, 2777-1, 35347-4, 13693-5 ####[facility] LABORATORYCLIA [id number] [place] [id number] [place] Hepatic function 2000 panelo n 12-09-2023 Albumin [Mass/Vol] 3.4 g/dL Low 3.9-4.9 [facility] Comment on above: Order Comment: Speci men Type: BLOOD SPECIMENOrdering Facility: [facility] Address: [address] [place] [address] Performed By: #### 2 4325-3 ####[facility] LABORATORYCLIA [id number] [place] [id number] [place] ALP [Catalytic activity/Vol] 179 U/L High 34-123 [facility] Comment on above: Order Comment: Speci men Type: BLOOD SPECIMENOrdering Facility: [facility] Address: [address] [place] [address] Performed By: #### 2 4325-3 ####[facility] LABORATORYCLIA [id number] [place] [id number] [place] ALT [Catalytic activity/Vol] 249 U/L High 7-38 [facility] Comment on above: Order Comment: Speci men Type: BLOOD SPECIMENOrdering Facility: [facility] Address: [address] [place] [address] Performed By: #### 2 4325-3 ####[facility] LABORATORYCLIA [id number] [place] [address] [place] AST [Catalytic activity/Vol] 39 U/L High 13-35 [facility] Comment on above: Order Comment: Speci men Type: BLOOD SPECIMENOrdering Facility: [facility] Address: [address] [place] [address] Performed By: #### 2 4325-3 ####[facility] LABORATORYCLIA [id number] [place] [address] [place] Bilirubin [Mass/Vol] 0.2 mg/dL Normal 0.2-1.3 [facility] Comment on above: Order Comment: Speci men Type: BLOOD SPECIMENOrdering Facility: [facility] Address: [address] [place] [address] Performed By: #### 2 4325-3 ####[facility] LABORATORYCLIA [id number] [place] [address] [place] Bilirubin.conjugated [Mass/Vol] mg/dL Normal <0.2 [facility] Comment on above: Order Comment: Speci men Type: BLOOD SPECIMENOrdering Facility: [facility] Address: [address] [place] [address] Performed By: #### 2 4325-3 ####[facility] LABORATORYCLIA [id number] [place] [id number] [place] Protein [Mass/Vol] 5.7 g/dL Low 6.3-8.0 [facility] Comment on above: Order Comment: Speci men Type: BLOOD SPECIMENOrdering Facility: [facility] Address: [address] [place] [address] Performed By: #### 2 4325-3 ####[facility] LABORATORYCLIA [id number] [place] [id number] [place] NURSING PROGon 12-09-2023 NURSING PROG HNO ID: [id number] Author: SNEG ABRBOUR RN Service: Nursing Author Type: Registered Nurse Type: Nursing Progress Note Filed: 12/09/2023 07:02 Note Text: Other: 2042: Assessment complete. Call light within reach. 2146: Vitals stable. Patient is calm and not in any distress. 2204: Assessment complete. Call light within reach. 2229: After receiving night time risperidone. Patient calls and asks to take the paliperidone 3 mg tablet she has brought with her instead of the risperidone for the future 2235: Pharmacy says I have to ask the provider 2236: Erik Alvarado NP paged to ask if patient can take their palperidone instead of the risperidone for further doses 2245: Patient asks to ambulate around floor and ambulates around floor independently 2250: Erik Alvarado NP says to inform patient to ask Dr. Bernal tomorrow morning when he is rounding if she can take the paliperidone instead of the risperidone. 2253: Pharmacist paged to ask where to keep the medication. Pharmacist says to put medication bottle in the patient medication bin and inform day shift nurse 2314: Vitals stable: Patient in calm, cooperative and in no distress. 0041: Vitals stable. Patient calm, cooperative and in no distress 0256: Patient is requesting something for pain. All that she has due is Tylenol. Her liver enzymes are very elevated. Erik Alvarado NP paged to ask what she can received 0305: Erik Alvarado NP says she can put in a one time dose of morphine 0325: Erik Alvarado NP paged to notify that patient has a positive tox screen for methamphetamines and opiods and has a history of substance abuse. Erik Alvarado NP states that she received morphine in the ER and it is a one time dose so it should be fine to give. 0605: Vitals stable. Patient calm, cooperative, and in no distress. Normal [facility] APAP SerPl-mCncon 12-08-2023 Acetaminophen [Mass/Vol] ug/mL Low 10-30 [facility] Comment on above: Order Comment: Speci men Type: BLOOD SPECIMENOrdering Facility: [facility] Address: [address] [place] [address] Result Comment: Toxi c > 150 ug/mL 4 hours post ingestion The Kassi Norman nomogram can be used to estimate the probability of hepatotoxicity via the relationship of plasma acetaminophen concentration to the post ingestion interval. (Jennie. Pediatrics. 1975. 55:871 to 876 and Kassi et al. Arch [employer] Med. 1981. 141:380 to 385). Reference ranges and high/low indicator flags are provided as general guidelines only. The treating physician must determine appropriate target levels/dosing based on the specific clinical situation. Performed By: #### 2 4323-8, 66427-0, 3298-7 ####[facility] LABORATORYCLIA [id number] [place] [address] [facility] CASE MGT INIT ASSESon 2023 CASE MGT INIT ASS HNO ID: [id number] Author: PIEDAD RAMIREZ RN Service: ? Author Type: Registered Nurse Type: Care Mgt Initial Assessment Filed: 12/08/2023 13:49 Note Text: CARE MANAGEMENT: ASSESSMENT AND DISCHARGE PLAN SERVICE DATE: December 08, 2023 SERVICE TIME: 1050 PCP: WENDIE Rice Primary Contact: Extended Emergency Contact Information Primary Emergency Contact: Ricardo Worley Address: [address] Mobile Relation: Significant other Admission Status: Inpatient Insurance Provider: [employer] Discharge Planning requested by: Per Department Practice Potential Transition Plans Home Advance Directives Current Living Arrangements and Support Lives with: Type of Residence: Private Residence (House) Does the patient have to climb stairs at home?: (N/A) Support: Spouse/significant other How do you manage to accomplish the following: Independent: Ambulation;Bathe/Show er;Dress;Meals/Meal Prep;Going to the bathroom;Medication Management;Transporta tion to appointments/communit y Current Services/Equipment Current Post-Acute Service(s): None Discharge Planning Patient Goal(s): Less pain Nicholson of Choice Explained: Nicholson of Choice Given: No Reason Not Given: No placements necessary Are you interested in bedside delivery of your medications? No Discharge Planning Participant(s): (Chart review) Patient/Family Comments: N/A Caregiver Assessment: Caregiver is ready, willing and able to meet the patient's needs as recommended by the inter-professional team: No Caregiver needed Transport at Discharge: Transportation Arrangements: To Be Determined Needs Prior to Discharge: Needs Prior to Discharge: To Be Determined Post-Acute Discharge Plan: Initial Care Management Assessment completed by chart review this morning as patient upset regarding medication and subjective lack of pain control. Upon EMR review, anticipate basic discharge needs and patient independent prior to this admit. Patient with history of gastroparesis and follows with [facility] and presented to ED with chief complaint abdominal pain, nausea and vomiting. Care Management will plan to continue to follow. SIGNATURE: Piedad Ramirez RN PATIENT NAME: Becki Jackson DATE: December 08, 2023 TIME: 1:39 PM CONTACT #: [id number] Normal [facility] CBC panel Auto (Bld)on 12-08 Erythrocyte distribution width (RBC) [Ratio] 13.2 % Normal 11.5-15.0 [facility] Comment on above: Order Comment: Clemencia colunga Type: BLOOD SPECIMENOrdering Facility: [facility] Address: [address] [place] [address] Performed By: #### 5 8410-2 ####[facility] LABORATORYCLIA [id number] [place] [id number] [place] Hematocrit (Bld) [Volume fraction] 36.1 % Normal 36.0-46.0 [facility] Comment on above: Order Comment: Clemencia colunga Type: BLOOD SPECIMENOrdering Facility: [facility] Address: [address] [place] [address] Performed By: #### 5 8410-2 ####[facility] LABORATORYCLIA [id number] [place] [id number] [place] Hemoglobin (Bld) [Mass/Vol] 12.2 g/dL Normal 11.5-15.5 [facility] Comment on above: Order Comment: Speci men Type: BLOOD SPECIMENOrdering Facility: [facility] Address: [address] [place] [address] Performed By: #### 5 8410-2 ####[facility] LABORATORYCLIA [id number] [place] [address] [place] MCH (RBC) [Entitic mass] 30.3 pg Normal 26.0-34.0 [facility] Comment on above: Order Comment: Speci men Type: BLOOD SPECIMENOrdering Facility: [facility] Address: [address] [place] [address] Performed By: #### 5 8410-2 ####[facility] LABORATORYCLIA [id number] [address] [place] MCHC (RBC) [Mass/Vol] 33.8 g/dL Normal 30.5-36.0 [facility] Comment on above: Order Comment: Speci men Type: BLOOD SPECIMENOrdering Facility: [facility] Address: [address] [place] [address] Performed By: #### 5 8410-2 ####[facility] LABORATORYCLIA [id number] [address] [place] MCV (RBC) [Entitic vol] 89.6 fL Normal 80.0-100.0 [facility] Comment on above: Order Comment: Speci men Type: BLOOD SPECIMENOrdering Facility: [facility] Address: [address] [place] [address] Performed By: #### 5 8410-2 ####[facility] LABORATORYCLIA [id number] [place] [address] [place] Nucleated RBC (Bld) [#/Vol] 10*3/uL Normal <0.01 [facility] Comment on above: Order Comment: Speci men Type: BLOOD SPECIMENOrdering Facility: [facility] Address: [address] [place] [address] Performed By: #### 5 8410-2 ####[facility] LABORATORYCLIA [id number] [place] [id number] [place] Platelet mean volume (Bld) [Entitic vol] 9.2 fL Normal 9.0-12.7 [facility] Comment on above: Order Comment: Speci men Type: BLOOD SPECIMENOrdering Facility: [facility] Address: [address] [place] [address] Performed By: #### 5 8410-2 ####[facility] LABORATORYCLIA [id number] [place] [address] [place] Platelets (Bld) [#/Vol] 258 10*3/uL Normal 150-400 [facility] Comment on above: Order Comment: Speci men Type: BLOOD SPECIMENOrdering Facility: [facility] Address: [address] [place] [address] Performed By: #### 5 8410-2 ####[facility] LABORATORYCLIA [id number] [place] [address] [place] RBC (Bld) [#/Vol] 4.03 10*6/uL Normal 3.90-5.20 [facility] Comment on above: Order Comment: Speci men Type: BLOOD SPECIMENOrdering Facility: [facility] Address: [address] [place] [address] Performed By: #### 5 8410-2 ####[facility] LABORATORYCLIA [id number] [place] [id number] [place] WBC (Bld) [#/Vol] 4.64 10*3/uL Normal 3.70-11.00 [facility] Comment on above: Order Comment: Speci men Type: BLOOD SPECIMENOrdering Facility: [facility] Address: [address] [place] [address] Performed By: #### 5 8410-2 ####[facility] LABORATORYCLIA [id number] [place] [id number] [facility] [place] CONSULT PROGon 02-14-2024 CONSULT PROG HNO ID: [id number] Author: JING CH PA-C Service: Gastroenterology Author Type: Physician Linux Unix Engineer Type: Consult Progress Note Filed: 12/08/2023 14:00 Note Text: GASTROENTEROLOGY PLAN OF CARE Patient Name: Becki Jackson Medical Record: [id number] Date: December 08, 2023 Time: 1:55 PM Elements of impression below have been copied forward from note on 12/07/23 and are appropriately reviewed and updated to reflect medical decision making for today 12/08/23. Becki Jackson is a 33 yo female, GI consulted for n/v/d, abdominal pain. Pmhx includes gastroparesis, depression. Patient presented to ED with c/o abdominal pain, n/v/d, was advised by her gastroparesis DrBette Flanagan to come in for severe symptoms. Endorses flare up of symptoms over the last 3 days, had gone to [facility] ED twice in the last 3 days and was discharged with normal CT and labs. She reports numerous episodes of small volume liquid diarrhea yesterday, so far has had 1 this morning. No blood in stool, melena. Denies hx IVDA, hx hepatitis, family history liver disease, any alcohol use, hx incarceration or service. She takes 2g tylenol as needed daily. Surgical history includes cholecystectomy and tubal ligation. No current bowel regimen. Feeling hungry for more food today. #gastroparesis #diarrhea- resolved #elevated LFT's -KUB and RUQ US unremarkable -continue supportive care including antiemetics -advance diet as tolerated -awaiting labs today for LFT trending, ordered but not yet completed- likely element of DILI, +urine tox screen noted -advised total cessation of marijuana products Jing Ch PA-C December 08, 2023 1:55 PM Gastroenterology and Hepatology Normal [facility] Comprehensive metabolic 2000 panelon 12-08-2023 Albumin [Mass/Vol] 3.2 g/dL Low 3.9-4.9 [facility] Comment on above: Order Comment: Speci men Type: BLOOD SPECIMENOrdering Facility: [facility] Address: [address] [place] [address] Performed By: #### 2 4323-8, 58911-9, 3298-7 ####[facility] LABORATORYCLIA [id number] [place] [id number] [place] ALP [Catalytic activity/Vol] 207 U/L High 34-123 [facility] Comment on above: Order Comment: Speci men Type: BLOOD SPECIMENOrdering Facility: [facility] Address: [address] [place] [address] Performed By: #### 2 4323-8, 56699-6, 7 ####[facility] LABORATORYCLIA [id number] [place] [id number] [place] ALT [Catalytic activity/Vol] 360 U/L High 7-38 [facility] Comment on above: Order Comment: Speci men Type: BLOOD SPECIMENOrdering Facility: [facility] Address: [address] [place] [address] Performed By: #### 2 4323-8, , 7 ####[facility] LABORATORYCLIA [id number] [place] [address] [place] Anion gap [Moles/Vol] 8 mmol/L Low 9-18 [facility] Comment on above: Order Comment: Speci men Type: BLOOD SPECIMENOrdering Facility: [facility] Address: [address] [place] [address] Performed By: #### 2 4323-8, 67927-6, 7 ####[facility] LABORATORYCLIA [id number] [place] [address] [place] AST [Catalytic activity/Vol] 87 U/L High 13-35 [facility] Comment on above: Order Comment: Speci men Type: BLOOD SPECIMENOrdering Facility: [facility] Address: [address] [place] [address] Performed By: #### 2 4323-8, 58284-6, 3297-7 ####[facility] LABORATORYCLIA [id number] [place] [address] [place] Bilirubin [Mass/Vol] 0.2 mg/dL Normal 0.2-1.3 [facility] Comment on above: Order Comment: Speci men Type: BLOOD SPECIMENOrdering Facility: [facility] Address: [address] [place] [address] Performed By: #### 2 4323-8, , 7 ####S[facility] JOSYMaura LABORATORYCLIA [id number] [place] [id number] [place] Calcium [Mass/Vol] 8.4 mg/dL Low 8.5-10.2 [facility] Comment on above: Order Comment: Speci men Type: BLOOD SPECIMENOrdering Facility: [facility] Address: [address] [place] [address] Performed By: #### 2 4323-8, , 7 ####[facility] FERRIS LABORATORYCLIA [id number] [place] [address] [place] Chloride [Moles/Vol] 107 mmol/L High 97-105 [facility] Comment on above: Order Comment: Speci men Type: BLOOD SPECIMENOrdering Facility: [facility] Address: [address] [place] [address] Performed By: #### 2 4323-8, , 7 ####[facility] F[facility] LABORATORYCLIA [id number] [place] [id number] [place] CO2 [Moles/Vol] 22 mmol/L Normal 22-30 [facility] Comment on above: Order Comment: Speci men Type: BLOOD SPECIMENOrdering Facility: [facility] Address: [address] [place] [address] Performed By: #### 2 4323-8, , 7 ####[facility] F[facility] LABORATORYCLIA [id number] [place] [address] [place] Creatinine [Mass/Vol] 0.97 mg/dL High 0.58-0.96 [facility] Comment on above: Order Comment: Speci men Type: BLOOD SPECIMENOrdering Facility: [facility] Address: [address] [place] [address] Performed By: #### 2 4323-8, 41210-2, 3298-7 ####[facility] JOSY LABORATORYCLIA [id number] [place] [id number] [place] Creatinine and Glomerular filtration rate.predicted panel (S/P/Bld) 80 mL/min/1.73m??? Normal >=60 [facility] Comment on above: Order Comment: Clemencia colunga Type: BLOOD SPECIMENOrdering Facility: [facility] Address: [address] [place] [address] Result Comment: Jeremy mated Glomerular Filtration Rate (eGFR) is calculated using the 2020 CKD-EPI creatinine equation. This equation utilizes serum creatinine, sex, and age as parameters. The creatinine assay has traceable calibration to isotope dilution-mass spectrometry. Refer to KDIGO guidelines for clinical interpretation. In patients with unstable renal function, e.g. those with acute kidney injury, the eGFR may not accurately reflect actual GFR. Performed By: #### 2 4323-8, 98318-7, 329-7 ####[facility] LABORATORYCLIA [id number] [place] [id number] [place] Glucose [Mass/Vol] 99 mg/dL Normal 74-99 [facility] Comment on above: Order Comment: Clemencia colunga Type: BLOOD SPECIMENOrdering Facility: [facility] Address: [address] [place] [address] Result Comment: The [place] Diabetes [employer] (ADA) provides guidance for cutoff values for fasting glucose and random glucose. The ADA defines fasting as no caloric intake for at least 8 hours. Fasting plasma glucose results between 100 to 125 mg/dL indicate increased risk for diabetes (prediabetes). Fasting plasma glucose results greater than or equal to 126 mg/dL meet the criteria for diagnosis of diabetes. In the absence of unequivocal hyperglycemia, results should be confirmed by repeat testing. In a patient with classic symptoms of hyperglycemia or hyperglycemic crisis, random plasma glucose results greater than or equal to 200 mg/dL meet the criteria for diagnosis of diabetes. Reference: Standards of Medical Care in Diabetes 2016, [place] [employer]. Diabetes Care. 2016.39(Suppl 1). Performed By: #### 2 4323-8, 51343-5, 3298-04 ####[facility] LABORATORYCLIA [id number] [place] [id number] [place] Potassium [Moles/Vol] 4.2 mmol/L Normal 3.7-5.1 [facility] Comment on above: Order Comment: Speci men Type: BLOOD SPECIMENOrdering Facility: [facility] Address: [address] [place] [address] Performed By: #### 2 4323-8, , 3298-04 ####[facility] LABORATORYCLIA [id number] [place] [id number] [place] Protein [Mass/Vol] 5.8 g/dL Low 6.3-8.0 [facility] Comment on above: Order Comment: Speci men Type: BLOOD SPECIMENOrdering Facility: [facility] Address: [address] [place] [address] Performed By: #### 2 4323-8, , 3298-04 ####[facility]ENTERCLIA [id number] [place] [id number] [place] Sodium [Moles/Vol] 137 mmol/L Normal 136-144 [facility] Comment on above: Order Comment: Speci men Type: BLOOD SPECIMENOrdering Facility: [facility] Address: [address] [place] [address] Performed By: #### 2 4323-8, , 3298-04 ####[facility] LABORATORYCLIA [id number] [place] [id number] [place] Urea nitrogen [Mass/Vol] 9 mg/dL Normal 7-21 [facility] Comment on above: Order Comment: Speci men Type: BLOOD SPECIMENOrdering Facility: [facility] Address: [address] [place] [address] Performed By: #### 2 4323-8, , 3298-04 ####[facility] LABORATORYCLIA [id number] [place] [id number] [place] Magnesium SerPl-mCncon 12-08 Magnesium [Mass/Vol] 1.7 mg/dL Normal 1.7-2.3 [facility] Comment on above: Order Comment: Speci men Type: BLOOD SPECIMENOrdering Facility: [facility] Address: [address] [id number] Performed By: #### 2 4323-8, 93372-8, 3298-7 ####[facility] LABORATORYCLIA [id number] [place] [id number] [facility] NURSING PROGon 12-08-2023 NURSING PROG HNO ID: [id number] Author: MALCOM LI RN Service: ? Author Type: Registered Nurse Type: Nursing Progress Note Filed: 12/08/2023 19:04 Note Text: Nursing Progress Note: 12/08/23 0800 Pt was resting. VS will be taken and medications will be given. Assessment was conducted, safety precautions taken. 0900 Pt stated that she wanted a stronger pain med, for the ab pain. She also said, I do not want that doctor (Dr. Pinedo) to be my doctor anymore. 1000 Pt was resting, will monitor. Anastacio COOLER CONVEYOR LOADER is informed of the patient's pain level, and that patient wanted a new doctor. 1200 Jing PA for GI team was messaged about diet order. 1245 Menu was given to the patient, pt was informed that the new doctor was Dr. Carroll. 1400 Pt was resting, no needs, will monitor. 1500 Dr. Carroll was called, he was informed of the patient's pain level and that patient refused lab draw today. 1600 Pt was resting, no needs. 1630 Dr. Carroll was called and order was obtained to d/c [place] murrieta. Pt's BM was formed. Dr. Carroll also stated that he will enter order for PRN PO tramadol. 1800 Pt was resting, safety precautions taken. 191 Report was given to onctorrey nurse. [facility] NURSING PROG HNO ID: [id number] Author: ALEXUS BUSCH RN Service: ? Author Type: Registered Nurse Type: Nursing Progress Note Filed: 12/08/2023 00:45 Note Text: Other: 1900: Received report from previous RN. Pt c/o 08/03 aching abdominal pain. VSS. Updated on POC. Pt requesting stronger medication than tylenol Pt appears very agitated stating You are violating my rights by not giving me stronger pain meds. I would like to call the ombudsman. Attempted to calm pt and explain POC. ANM notified of situation. - Pt c/o extreme pain during initial assessment but was asleep when staff rounded on her. - Paged Dr. Pinedo x2 to notify him of pt request. - Unable to reach Dr. Pinedo. Paged Dr. Jimenez to notify of pt request. No new orders received at this time. 2299: Spoke with Dr. Pinedo about pt status and request. New order received for 1x dose Toradol. [facility] NURSING PROG HNO ID: [id number] Author: GRAY ZAMARRIPA RN Service: ? Author Type: Registered Nurse Type: Nursing Progress Note Filed: 12/07/2023 22:49 Note Text: 23:43 Notified by primary RN, Alexus, that patient is upset with Dr. Pinedo and states she is in a lot of abdominal pain. Escalated patients pain management complaints to Dr. Benitez, explained the patients care plan and discussed with Dr. Benitez and this RN asked Dr. Benitez if he can order patient IV Toradol as a means of pain control. Dr. Benitez stated he would not order that medication until he can talk to Dr. Pinedo and that will not be until tomorrow morning. This RN updated primary RN Alexus about situation. [facility] NUTRITIONon 12-08-2023 NUTRITION HNO ID: [id number] Author: ADDIE BOLTON RD Service: Nutrition Therapy Author Type: Registered Dietitian Type: Nutrition Filed: 12/08/2023 13:07 Note Text: NUTRITION THERAPY INITIAL ASSESSMENT SERVICE DATE: 12/08/2023 SERVICE TIME: 1:01 PM Nutrition Assessment: Recommended Malnutrition Diagnosis: Mild Protein-Calorie Malnutrition In the context of: Chronic Illness or Injury Based on: Insufficient Energy Intake Nutrition Diagnosis: Problem: Suboptimal oral intake Related to: Chronic illness As evidenced by: Patient/family self-report Estimated kilocalorie needs: 0512-4862 kcal Calorie Calculation Method: 25-30 kcals/kg Estimated protein needs (grams): 85-114 gm Grams protein determined by: [place] body weight, 1.5 - 2.0 g/kg Care Plan: Continue current diet Snacks: Add (Red jello) Supplements: Ensure Clear Medications: Anti-emetics Monitor and Evaluation: Meet greater than 75% of estimated needs, Monitor fluid/electrolyte balance, Monitor bowel function, Monitor labs, I/Os, vital signs, weight HPI: 33 y.o. feelle with pmh significant for gastroparesis substance abuse, bipolar disorder, depression admitted for N/V, diarrhea. Noted to be vomiting up all food, tolerating small amounts of liquid. Intake History: Nutrition Intake Prior to Admission: Less than 75% estimated energy needs greater than or equal to 1 month Current Nutrition Intake: Less than 50% estimated energy needs Current Intake Over time: (x1 meal (on full liquids)) -Patient endorses abdominal pain and emesis with all solid foods. States she generally tolerates liquids ok. Was on clear liquids during visit. Will order clear liquid supplement as discussed. Patient with on phone during discussion asking if patient could get night time snack of jello. Added as food preference into CBORD with dinner. Diet Orders (From admission, onward) Start Ordered 12/08/23 1245 DIET SUPPLEMENTS START NOW Question Answer Comment Supplement 1 ENSURE CLEAR APPLE Supplement 1 Frequency 7. BREAKFAST, LUNCH, DINNER 12/08/23 1232 12/08/23 1230 DIET GASTRO INTESTINAL START NOW Question: Gastro Intestinal Answer: FIBER CONTROLLED 12/08/23 1218 Anthropometrics: Height: 165.1 cm (5' 5) Weight: 99.8 kg (220 lb) Dosing Weight: 57 kg (125 lb 10.6 oz) Usual Weight: 100.1 kg (220 lb 10.9 oz) 05/24/23 Usual Weight Obtained From: Chart Review Body mass index is 36.61 kg/m?. Weight Change: Stable weight(s) Physical Exam: Subcutaneous fat loss: No fat loss Muscle loss: No muscle loss Potential micronutrient deficiency: No deficiency identified Edema/Ascites: No edema GI Symptoms: Abdominal pain, Nausea, Vomiting, Diarrhea (TRANSFUSION NURSE) Functional Status: Not related to malnutrition status Potential Signs of Inflammation: Chronic condition Gastroparesis MNT Billing: $ Initial Assessment: 1-15 minutes SIGNATURE: Addie Bolton RD PATIENT NAME: Becki Jackson DATE: December 08, 2023 TIME: 1:01 PM [facility] ALLIED HEALTHon 12-07-2023 ALLIED HEALTH HNO ID: [id number] Author: FORTINO MARI RT(R) Service: Radiology Author Type: Technologist Type: Allied Health Filed: 12/07/2023 17:04 Note Text: Radiology Service Progress Note PATIENT NAME: Becki Jackson DATE OF SERVICE: December 07, 2023 TIME: 4:56 PM PATIENT IDENTITY VERIFICATION COMPLETED USING TWO (2) IDENTIFIERS: Name and Date of confirmed by patient verbally and Name and Date of confirmed by identification band. FALL SCREENING: Has the patient had 2 falls in the last year or 1 fall with injury or currently using an Ambulatory Assistive Device (Walker, Cane, Wheelchair, Crutches, etc.)? Inpatient: Screened on floor PATIENT GENDER DATA: Female. status: : No status: NO. PATIENT RELEVANT IMPLANT DATA REVIEWED: Not Applicable PATIENT PRESENTS WITH AN IMPLANTABLE OR ATTACHED SUPERVISOR CD AREA: No RADIOLOGY DEPARTMENT: General X-ray: Exam(s) Completed: Abdomen X-Ray: Abdomen PERIPHERAL IV DATA: Not applicable SIGNED BY: RT Shayna(R) December 07, 2023 4:56 PM [facility] APAP SerPl-mCncon 12-07-2023 Acetaminophen [Mass/Vol] ug/mL Low 10-30 [facility] Comment on above: Order Comment: Speci men Type: BLOOD SPECIMENOrdering Facility: [facility] Address: [address] [place] [address] Result Comment: Toxi c > 150 ug/mL 4 hours post ingestion The Kassi Norman nomogram can be used to estimate the probability of hepatotoxicity via the relationship of plasma acetaminophen concentration to the post ingestion interval. (Jennie. Pediatrics. 1975. 55:871 to 876 and Kassi et al. Arch [employer]ental [employer] Porter Med. 1981. 141:380 to 385). Reference ranges and high/low indicator flags are provided as general guidelines only. The treating physician must determine appropriate target levels/dosing based on the specific clinical situation. Performed By: #### 3 298-7 ####[facility] LABORATORYCLIA [id number] [place] [address] [place] CBC W Auto Differential pane l (Bld)on 12-07-2023 Basophils (Bld) [#/Vol] 10*3/uL Normal <0.11 [facility] Comment on above: Order Comment: Speci men Type: BLOOD SPECIMENOrdering Facility: [facility] Address: [address] [place] [address] Performed By: #### 5 7021-8 ####[facility] LABORATORYCLIA [id number] [place] [address] [place] Basophils/100 WBC (Bld) 0.4 % Normal [facility] Comment on above: Order Comment: Speci men Type: BLOOD SPECIMENOrdering Facility: [facility] Address: [address] [place] [address] Performed By: #### 5 7021-8 ####[facility] LABORATORYCLIA [id number] [place] [address] [place] Differential cell count method Nom (Bld) Auto Normal [facility] Comment on above: Order Comment: Speci men Type: BLOOD SPECIMENOrdering Facility: [facility] Address: [address] [place] [address] Performed By: #### 5 7021-8 ####[facility] LABORATORYCLIA [id number] [place] [address] [place] Eosinophils (Bld) [#/Vol] 0.13 10*3/uL Normal <0.46 [facility] Comment on above: Order Comment: Speci men Type: BLOOD SPECIMENOrdering Facility: [facility] Address: [address] [place] [address] Performed By: #### 5 7021-8 ####[facility] LABORATORYCLIA [id number] [place] [address] [place] Eosinophils/100 WBC (Bld) 2.4 % Normal [facility] Comment on above: Order Comment: Speci men Type: BLOOD SPECIMENOrdering Facility: [facility] Address: [address] [place] [address] Performed By: #### 5 7021-8 ####[facility] LABORATORYCLIA [id number] [place] [address] [place] Erythrocyte distribution width (RBC) [Ratio] 13.2 % Normal 11.5-15.0 [facility] Comment on above: Order Comment: Speci men Type: BLOOD SPECIMENOrdering Facility: [facility] Address: [address] [place] [address] Performed By: #### 5 7021-8 ####[facility] LABORATORYCLIA [id number] [place] [address] [place] Hematocrit (Bld) [Volume fraction] 41.7 % Normal 36.0-46.0 [facility] Comment on above: Order Comment: Speci men Type: BLOOD SPECIMENOrdering Facility: [facility] Address: [address] [place] [address] Performed By: #### 5 7021-8 ####[facility] LABORATORYCLIA [id number] [place] [address] [place] Hemoglobin (Bld) [Mass/Vol] 14.2 g/dL Normal 11.5-15.5 [facility] Comment on above: Order Comment: Speci men Type: BLOOD SPECIMENOrdering Facility: [facility] Address: [address] [place] [address] Performed By: #### 5 7021-8 ####[facility] LABORATORYCLIA [id number] [place] [address] [place] Immature granulocytes (Bld) [#/Vol] 0.04 10*3/uL Normal <0.10 [facility] Comment on above: Order Comment: Speci men Type: BLOOD SPECIMENOrdering Facility: [facility] Address: [address] [place] [address] Performed By: #### 5 7021-8 ####[facility] LABORATORYCLIA [id number] [place] [address] [place] Immature granulocytes/100 WBC (Bld) 0.7 % Normal [facility] Comment on above: Order Comment: Speci men Type: BLOOD SPECIMENOrdering Facility: [facility] Address: [address] [place] [address] Performed By: #### 5 7021-8 ####[facility] LABORATORYCLIA [id number] [place] [address] [place] Lymphocytes (Bld) [#/Vol] 0.73 10*3/uL Low 1.00-4.00 [facility] Comment on above: Order Comment: Speci men Type: BLOOD SPECIMENOrdering Facility: [facility] Address: [address] [place] [address] Performed By: #### 5 7021-8 ####[facility] LABORATORYCLIA [id number] [address] [place] Lymphocytes/100 WBC (Bld) 13.6 % Normal [facility] Comment on above: Order Comment: Speci men Type: BLOOD SPECIMENOrdering Facility: [facility] Address: [address] [place] [address] Performed By: #### 5 7021-8 ####[facility] LABORATORYCLIA [id number] [place] [address] [place] MCH (RBC) [Entitic mass] 30.7 pg Normal 26.0-34.0 [facility] Comment on above: Order Comment: Speci men Type: BLOOD SPECIMENOrdering Facility: [facility] Address: [address] [place] [address] Performed By: #### 5 7021-8 ####[facility] LABORATORYCLIA [id number] [place] [address] [place] MCHC (RBC) [Mass/Vol] 34.1 g/dL Normal 30.5-36.0 [facility] Comment on above: Order Comment: Speci men Type: BLOOD SPECIMENOrdering Facility: [facility] Address: [address] [place] [address] Performed By: #### 5 7021-8 ####[facility] LABORATORYCLIA [id number] [place] [address] [place] MCV (RBC) [Entitic vol] 90.3 fL Normal 80.0-100.0 [facility] Comment on above: Order Comment: Speci men Type: BLOOD SPECIMENOrdering Facility: [facility] Address: [address] [place] [address] Performed By: #### 5 7021-8 ####[facility] LABORATORYCLIA [id number] [place] [address] [place] Monocytes (Bld) [#/Vol] 0.47 10*3/uL Normal <0.87 [facility] Comment on above: Order Comment: Speci men Type: BLOOD SPECIMENOrdering Facility: [facility] Address: [address] [place] [address] Performed By: #### 5 7021-8 ####[facility] LABORATORYCLIA [id number] [place] [address] [place] Monocytes/100 WBC (Bld) 8.8 % Normal [facility] Comment on above: Order Comment: Speci men Type: BLOOD SPECIMENOrdering Facility: [facility] Address: [address] [place] [address] Performed By: #### 5 7021-8 ####[facility] LABORATORYCLIA [id number] [place] [address] [place] Neutrophils (Bld) [#/Vol] 3.97 10*3/uL Normal 1.45-7.50 [facility] Comment on above: Order Comment: Speci men Type: BLOOD SPECIMENOrdering Facility: [facility] Address: [address] [place] [address] Performed By: #### 5 7021-8 ####[facility] LABORATORYCLIA [id number] [place] [address] [place] Neutrophils/100 WBC (Bld) 74.1 % Normal [facility] Comment on above: Order Comment: Speci men Type: BLOOD SPECIMENOrdering Facility: [facility] Address: [address] [place] [address] Performed By: #### 5 7021-8 ####[facility] LABORATORYCLIA [id number] [place] [id number] [place] Nucleated RBC (Bld) [#/Vol] 10*3/uL Normal <0.01 [facility] Comment on above: Order Comment: Speci men Type: BLOOD SPECIMENOrdering Facility: [facility] Address: [address] [place] [address] Performed By: #### 5 7021-8 ####[facility] LABORATORYCLIA [id number] [place] [address] [place] Nucleated RBC/100 WBC (Bld) [Ratio] 0.0 /100 WBC Normal [facility] Comment on above: Order Comment: Speci men Type: BLOOD SPECIMENOrdering Facility: [facility] Address: [address] [place] [address] Performed By: #### 5 7021-8 ####[facility] LABORATORYCLIA [id number] [place] [address] [place] Platelet mean volume (Bld) [Entitic vol] 9.5 fL Normal 9.0-12.7 [facility] Comment on above: Order Comment: Speci men Type: BLOOD SPECIMENOrdering Facility: [facility] Address: [address] [place] [address] Performed By: #### 5 7021-8 ####[facility] LABORATORYCLIA [id number] [place] [address] [place] Platelets (Bld) [#/Vol] 261 10*3/uL Normal 150-400 [facility] Comment on above: Order Comment: Speci men Type: BLOOD SPECIMENOrdering Facility: [facility] Address: [address] [place] [address] Performed By: #### 5 7021-8 ####[facility] LABORATORYCLIA [id number] [place] [address] [place] RBC (Bld) [#/Vol] 4.62 10*6/uL Normal 3.90-5.20 [facility] Comment on above: Order Comment: Specdarryn colunga Type: BLOOD SPECIMENOrdering Facility: [facility] Address: [address] [place] [address] [place] [address] Performed By: #### 5 7021-8 ####[facility] LABORATORYCLIA [id number] [address] WBC (Bld) [#/Vol] 5.36 10*3/uL Normal 3.70-11.00 [facility] Comment on above: Order Comment: Specdarryn colunga Type: BLOOD SPECIMENOrdering Facility: [facility] Address: [address] [place] [address] Performed By: #### 5 7021-8 ####[facility] LABORATORYCLIA [id number] [place] [id number] [facility] CONSULTon 12-07-2023 CONSULT HNO ID: [id number] Author: HARMAN OLIVER MD Service: Gastroenterology Author Type: Physician Linux Unix Engineer Type: Consults Filed: 12/08/2023 15:48 Note Text: Attestation signed by Harman Oliver MD at 12/08/2023 3:[address] FRED STONE, [facility] H[facility] STAFF PHYSICIAN NOTE OF PERSONAL INVOLVEMENT IN CARE I have reviewed the history and physical obtained and documented by my colleague and personally interviewed, examined and reviewed records/data/labs/rad iographs. I personally participated in the guerrero components and I agree with the history/physical examination, data assessment, diagnosis and plan as outlined except where differences are stated below. I have discussed the case and management of the patient's care. IMPRESSION: # Gastroparesis # Chronic Abdominal Pain # Cannabis/Amphetamine Use # Acute Liver Injury, ?DILI --EGD 2022, RUQ this admission unremarkable --Await hepatitis panel --Trend LFTs --Avoid opioids --Supportive measures per primary team --Counseled patient on avoidance of cannabis Harman Oliver MD Staff, Gastroenterology INITIAL CONSULT GASTROENTEROLOGY SERVICE DATE: December 07, 2023 CONSULTING SERVICE: Gastroenterology REASON FOR CONSULT: n/v/d, abdominal pain HPI: Becki Jackson is a 33 yo female, GI consulted for n/v/d, abdominal pain. Pmhx includes gastroparesis, depression. Patient presented to ED with c/o abdominal pain, n/v/d, was advised by her gastroparesis DrBette Flanagan to come in for severe symptoms. Endorses flare up of symptoms over the last 3 days, had gone to [facility] ED twice in the last 3 days and was discharged with normal CT and labs. She reports numerous episodes of small volume liquid diarrhea yesterday, so far has had 1 this morning. No blood in stool, melena. Denies hx IVDA, hx hepatitis, family history liver disease, any alcohol use, hx incarceration or service. She takes 2g tylenol as needed daily. Surgical history includes cholecystectomy and tubal ligation. No current bowel regimen. Feeling hungry for more food today. Labs this admission: Lipase 145 AST 1144, ALT 975, alk phos 312, t. Bili 0.6- LFT elevation is new since being seen at OSH on 12/05/23 Platelets 261 Urine tox +THC, opiates, amphetamines CTAP at OSH 12/05/23 with nil acute, moderate food debris in the stomach indicative of recent meal vs delayed gastric emptying. Last EGD 08/2023 nremarkable Previous EGD in 01/2023 had esophageal stenosis, this and the pylorus were dilated. Impression: Becki Jackson is a 33 year old female with a history of gastroparesis who presents with nausea, vomiting, diarrhea, abdominal pain for the last 2 days, now with LFT elevation. Recommendations: #elevated LFTs #gastroparesis #acute diarrhea -query element of cannabinoid hyperemesis syndrome -send stool studies, r/o infectious etiology -RUQ US -KUB to assess stool burden, suspect an element of overflow -await acute hepatitis panel -supportive antiemetic care, patient reports improvement with zofran -advance diet as tolerated -increase PPI to BID -trend LFT's consider DILI vs shock liver, dehydration, +tox screen noted Consultation requested by Zoey Skaggs CNP for an opinion regarding n/v/d, abdominal pain . My final recommendations will be communicated back to the requesting physician by way of shared medical record or letter via US mail Subjective: Review of Systems Gastrointestinal: Positive for abdominal pain, diarrhea, nausea and vomiting. Negative for blood in stool and melena. All other systems reviewed and are negative. Objective: MEDICATIONS: Current Facility-Administered Medications Medication Dose Route Frequency Provider Last Rate Last Admin NaCl 0.9% iv flush bag 20 mL INTRAVENOUS PRN Tsering Noble PA-C heparin 5,000 Units injection 5,000 Units SUBCUTANEOUS q 12 H Zoey Skaggs, ANDREW NaCl 0.9% iv infusion 100 mL/hr INTRAVENOUS CONTINUOUS Zoey Skaggs, LIVESTOCK BUYER.CENTERPUNCHER 100 mL/hr at 12/07/23 1051 100 mL/hr at 12/07/23 1051 ondansetron 4 mg tab(s) (ZOFRAN) 4 mg ORAL q 6 H PRN Zoey Skaggs, LIVESTOCK BUYER.BRANT Or ondansetron (PF) 4 mg injection (ZOFRAN) 4 mg INTRAVENOUS q 6 H PRN Zoey Skaggs, LIVESTOCK BUYER.BRANT docusate sodium 100 mg cap(s) (COLACE) 100 mg ORAL BID PRN Zoey Skaggs, LIVESTOCK BUYER.BRANT hyoscyamine sublingual 0.125 mg tab(s) (LEVSIN SL) 0.125 mg SUBLINGUAL AC and HS Zoey Skaggs, LIVESTOCK BUYERRUFINO [START ON 12/08/2023] cefTRIAXone 2 g in D5W 100 mL Vial-Bag (ROCEPHIN) 2 g INTRAVENOUS q 24 H Zoey Skaggs, LIVESTOCK BUYER.BRANT clonazePAM 0.5 mg tab(s) (KlonoPIN) 0.5 mg ORAL DAILY PRN Zoey Skaggs, LIVESTOCK BUYER.BRANT busPIRone 5 mg tab(s) (BUSPAR) 5 mg ORAL TID Zoey Skaggs, LIVESTOCK BUYER.CENTERPUNCHER folic acid 1 mg tab(s) 1 mg ORAL DAILY Zoey Skaggs, LIVESTOCK BUYER.CENTERPUNCHER risperiDONE 1 mg tab(s) (RisperDAL) 1 mg ORAL AT (more content not included)... Normal [facility] Comprehensive metabolic 2000 panelon 12-07-2023 Albumin [Mass/Vol] 3.8 g/dL Low 3.9-4.9 [facility] Comment on above: Order Comment: Speci men Type: BLOOD SPECIMENOrdering Facility: [facility] Address: [address] [place] [address] Performed By: #### 1 9123-9, 3040-3, 24827-0 ####[facility] LABORATORYCLIA [id number] [place] [address] [place] ALP [Catalytic activity/Vol] 312 U/L High 34-123 [facility] Comment on above: Order Comment: Speci men Type: BLOOD SPECIMENOrdering Facility: [facility] Address: [address] [place] [address] Performed By: #### 1 9123-9, 3040-3, 49646-3 ####[facility] LABORATORYCLIA [id number] [place] [address] [place] ALT [Catalytic activity/Vol] 975 U/L High 7-38 [facility] Comment on above: Order Comment: Speci men Type: BLOOD SPECIMENOrdering Facility: [facility] Address: [address] [place] [address] Performed By: #### 1 9123-9, 3040-3, 58025-1 ####[facility] LABORATORYCLIA [id number] [place] [id number] [place] Anion gap [Moles/Vol] 11 mmol/L Normal 9-18 [facility] Comment on above: Order Comment: Speci men Type: BLOOD SPECIMENOrdering Facility: [facility] Address: [address] [place] [address] Performed By: #### 1 9123-9, 3040-3, 62460-6 ####[facility] LABORATORYCLIA [id number] [place] [id number] [place] AST [Catalytic activity/Vol] 1144 U/L High 13-35 [facility] Comment on above: Order Comment: Speci men Type: BLOOD SPECIMENOrdering Facility: [facility] Address: [address] [place] [address] Performed By: #### 1 9123-9, 3040-3, 20558-3 ####[facility] LABORATORYCLIA [id number] [place] [address] [place] Bilirubin [Mass/Vol] 0.6 mg/dL Normal 0.2-1.3 [facility] Comment on above: Order Comment: Speci men Type: BLOOD SPECIMENOrdering Facility: [facility] Address: [address] [place] [address] Performed By: #### 1 9123-9, 3039-3, ####[facility]ENTERCLIA [id number] [place] [address] [place] Calcium [Mass/Vol] 8.7 mg/dL Normal 8.5-10.2 [facility] Comment on above: Order Comment: Speci men Type: BLOOD SPECIMENOrdering Facility: [facility] Address: [address] [place] [address] Performed By: #### 1 9123-9, 0-3, 17214-3 ####[facility] LABORATORYCLIA [id number] [place] [address] [place] Chloride [Moles/Vol] 106 mmol/L High 97-105 [facility] Comment on above: Order Comment: Speci men Type: BLOOD SPECIMENOrdering Facility: [facility] Address: [address] [place] [address] Performed By: #### 1 9123-9, 3040-3, 24772-4 ####[facility] LABORATORYCLIA [id number] [place] [id number] [place] CO2 [Moles/Vol] 21 mmol/L Low 22-30 [facility] Comment on above: Order Comment: Speci men Type: BLOOD SPECIMENOrdering Facility: [facility] Address: [address] [place] [address] Performed By: #### 1 9123-9, 3040-3, 73734-8 ####[facility] LABORATORYCLIA [id number] [place] [id number] [place] Creatinine [Mass/Vol] 0.65 mg/dL Normal 0.58-0.96 [facility] Comment on above: Order Comment: Speci men Type: BLOOD SPECIMENOrdering Facility: [facility] Address: [address] [place] [address] Performed By: #### 1 9123-9, 3040-3, 85119-7 ####[facility] LABORATORYCLIA [id number] [place] [address] [place] Creatinine and Glomerular filtration rate.predicted panel (S/P/Bld) 120 mL/min/1.73m??? Normal >=60 [facility] Comment on above: Order Comment: [facility] Type: BLOOD SPECIMENOrdering Facility: [facility] Address: [address] [place] [address] Result Comment: Jeremy mated Glomerular Filtration Rate (eGFR) is calculated using the 2020 CKD-EPI creatinine equation. This equation utilizes serum creatinine, sex, and age as parameters. The creatinine assay has traceable calibration to isotope dilution-mass spectrometry. Refer to KDIGO guidelines for clinical interpretation. In patients with unstable renal function, e.g. those with acute kidney injury, the eGFR may not accurately reflect actual GFR. Performed By: #### 1 9123-9, 3040-3, 62644-8 ####[facility] LABORATORYCLIA [id number] [place] [id number] [place] Glucose [Mass/Vol] 82 mg/dL Normal 74-99 [facility] Comment on above: Order Comment: Speci keanu Type: BLOOD SPECIMENOrdering Facility: [facility] Address: [address] [place] [address] Result Comment: The [place] Diabetes Association (ADA) provides guidance for cutoff values for fasting glucose and random glucose. The ADA defines fasting as no caloric intake for at least 8 hours. Fasting plasma glucose results between 100 to 125 mg/dL indicate increased risk for diabetes (prediabetes). Fasting plasma glucose results greater than or equal to 126 mg/dL meet the criteria for diagnosis of diabetes. In the absence of unequivocal hyperglycemia, results should be confirmed by repeat testing. In a patient with classic symptoms of hyperglycemia or hyperglycemic crisis, random plasma glucose results greater than or equal to 200 mg/dL meet the criteria for diagnosis of diabetes. Reference: Standards of Medical Care in Diabetes 2016, [place] [employer] Association. Diabetes Care. 2016.39(Suppl 1). Performed By: #### 1 9123-9, 3040-3, 89760-1 ####[facility] LABORATORYCLIA [id number] [place] [address] [place] Potassium [Moles/Vol] 4.4 mmol/L Normal 3.7-5.1 [facility] Comment on above: Order Comment: Speci men Type: BLOOD SPECIMENOrdering Facility: [facility] Address: [address] [place] [address] Performed By: #### 1 9123-9, 3040-3, 22985-5 ####[facility]ENTERCLIA [id number] [place] [address] [place] Protein [Mass/Vol] 6.7 g/dL Normal 6.3-8.0 [facility] Comment on above: Order Comment: Speci men Type: BLOOD SPECIMENOrdering Facility: [facility] Address: [address] [place] [address] Performed By: #### 1 9123-9, 3040-3, 75307-5 ####[facility] LABORATORYCLIA [id number] [place] [id number] [place] Sodium [Moles/Vol] 138 mmol/L Normal 136-144 [facility] Comment on above: Order Comment: Bijani men Type: BLOOD SPECIMENOrdering Facility: [facility] Address: [address] [place] [address] Performed By: #### 1 9123-9, 3040-3, 34938-5 ####[facility] LABORATORYCLIA [id number] [place] [id number] [facility] Urea nitrogen [Mass/Vol] 12 mg/dL Normal - [facility] Comment on above: Order Comment: Speci men Type: BLOOD SPECIMENOrdering Facility: [facility] Address: [address] [place] [address] Performed By: #### 1 9123-9, 3040-3, 18044-1 ####[facility] LABORATORYCLIA [id number] [place] [id number] [facility] ED NOTEon 12-07-2023 ED NOTE HNO ID: [id number] Author: KAYY VIEYRA Medic Service: ? Author Type: Printing Table Worker and Head Of Biology Type: ED Notes Filed: 12/07/2023 01:32 Note Text: IV access attempted twice without success. Pt has had multiple IV sites in the past 2 days. [facility] ED NOTE HNO ID: [id number] Author: DIANE BRADLEY, AMARILIS Service: ? Author Type: Registered Nurse Type: ED Notes Filed: 12/06/2023 23:14 Note Text: Patient complains of abdominal pain for the past 3 days. Patient states she was seen at [facility] in [place] yesterday and today. Patient states she had a CT done there and was told that my stomach is not emptying out all the way Patient states she has felt nauseous but denies any vomiting. Patient states she did talk with her Ornament Stapler (Dr. Cortez) yesterday who told her to go back to the ER. Patient states she went back to [facility] today and was told there was nothing they could do for her. Patient has a history of gastroparesis. [facility] ED PROV NOTEon 12-07-2023 ED PROV NOTE HNO ID: [id number] Author: KONG RAMIREZ DO Service: Emergency Medicine Author Type: Physician Type: ED Provider Notes Filed: 12/07/2023 22:26 Note Text: ED Provider Note Patient Name: Becki Jackson : 1990 SERVICE DATE: 12/06/23 History Patient presents with: Abdominal Pain 33-year-old female with past medical history of IBS, gastroparesis, migraine headaches, asthma, depression, anemia, depression presents with complaint of nausea, vomiting and diarrhea. Patient reports 2 days of symptoms she associates with flareup of gastroparesis. She reports watery diarrhea, stabbing, cramping and aching abdominal pain which is primarily epigastric with nausea. She states that she has vomiting after eating any food however this is chronic for her. She is tolerating small amounts of liquid. She denies fevers, chills, hematochezia, melena, urinary urgency, frequency or dysuria. States that she went to a hospital near her home twice over the past 3 days. She then called Dr. Flanagan who she follows with for gastroenterology who recommended that she come to [facility] emergency department for evaluation. Patient reports that Zofran helps her symptoms however she ran out of and had not had a zofran prescription in some time. She otherwise states that she is prescribed hydrocodone by outside ED which she took 1 of. She has not taken any other medications for symptoms. She reports abdominal surgical history of cholecystectomy 2020 and tubal ligation. No regular alcohol use. History provided by: Patient administrative accountant used: No PAST MEDICAL HISTORY Diagnosis Date Anemia ATEENAGER Asthma Depression FRACTURE 18 MONTHS FRACTURE ARM IBS (irritable bowel syndrome) Migraine, unspecified, with intractable migraine, so stated, without mention of status migrainosus Migraine depression PAST SURGICAL HISTORY Procedure Laterality Date [facility] IN[facility] x2 KNEE LEFT OP SURGERY 01/2016 KNEE RIGHT OP SURGERY 01/2015 REM LESION TRUNK,ARM, LEG <0.5 CM 04/25/2014 Exc. jeremy cyst upper mid back REMOVAL GALLBLADDER SALPINGECTOMY Bilateral 06/24/2017 B/L Laprascopic Salpingectomy TONSILLECTOMY PRIMARY/SECONDARY Tonsillectomy AND ADNOIDS FAMILY HISTORY Problem Relation Age of Onset Arthritis Mother Heart Mother Thyroid Mother Heart Brother Heart Maternal Uncle Prostate Cancer Maternal Grandfather Emphysema Maternal Grandfather Heart Maternal Grandfather Cancer Paternal Grandfather LUNG AND PANCREATICCANCER Emphysema Paternal Grandfather Anesthesia Problems No Family History Blood Clots No Family History Clotting Disorder No Family History Social History Tobacco Use Smoking status: Former Years: 4 Types: Cigarettes Quit date: 03/08/2013 Years since quittin.7 Smokeless tobacco: Never Vaping Use Vaping Use: Not on file Substance and Sexual Activity Alcohol use: No Drug use: No Sexual activity: Yes Partners: Male ALLERGIES Allergen Reactions Iodinated Contrast * Vomiting Penicillins Hives Sulfa (Sulfonamide * Hives Review of Systems Constitutional: Negative for chills, fatigue and fever. HENT: Negative for congestion and sore throat. Respiratory: Negative for cough, shortness of breath and wheezing. Cardiovascular: Negative for chest pain. Gastrointestinal: Positive for abdominal pain, diarrhea and nausea. Negative for constipation and vomiting. Genitourinary: Negative for difficulty urinating, frequency, urgency and vaginal discharge. Musculoskeletal: Negative for arthralgias, myalgias, neck pain and neck stiffness. Skin: Negative for rash and wound. Neurological: Negative for dizziness, weakness, numbness and headaches. Physical Exam Vitals [12/06/23 2309] BP Pulse Temp Temp src Resp SpO2 Weight Height 122/74 90 36.7 ?C (98.1 ?F) Oral 16 100 % 97.5 kg (215 lb) -- Physical Exam Vitals and nursing note reviewed. Constitutional: General: She is not in acute distress. Appearance: Normal appearance. She is not ill-appearing, toxic-appearing or diaphoretic. HENT: Head: Normocephalic and atraumatic. Mouth/Throat: Mouth: Mucous membranes are moist. Eyes: General: No scleral icterus. Right eye: No discharge. Left eye: No discharge. Extraocular Movements: Extraocular movements intact. Conjunctiva/sclera: Conjunctivae normal. Pupils: Pupils are equal, round, and reactive to light. Cardiovascular: Rate and Rhythm: Normal rate and regular rhythm. Pulses: Normal pulses. Heart sounds: Normal heart sounds. No murmur heard. No friction rub. No gallop. Pulmonary: Effort: Pulmonary effort is normal. No respiratory distress. Breath sounds: Normal breath sounds. No stridor. No wheezing, rhonchi or rales. Abdominal: General: There is no distension. Palpations: Abdomen is soft. There is no mass. Tenderne (more content not included)... Normal [facility] HAV IgM Ser Qlon 12-07-2023 HAV IgM Ql (S) Negative Normal Negative [facility] Comment on above: Order Comment: Speci men Type: BLOOD SPECIMENOrdering Facility: [facility] Address: [address] [place] [address] Result Comment: No e vidence of recent infection with Hepatitis A virus. Performed By: #### 2 2314-9, 5195-3, 24424-2 ####[facility] LABCLIA [id number] [place] [address] [place] HBV core IgM Ser Qlon 2023 HBV core IgM Ql (S) Negative Normal Negative [facility] Comment on above: Order Comment: Speci men Type: BLOOD SPECIMENOrdering Facility: [facility] Address: [address] [place] [address] Result Comment: No e vidence of recent infection with Hepatitis B virus. Should recent infection be suspected, repeat testing may be considered 3-4 weeks after this draw. Performed By: #### 2 2314-9, 5195-3, 68985-1 ####[facility] LABCLIA [id number] [place] [address] [place] HBV surface Ag Ser Qlon 11-25 HBV surface Ag Ql (S) Negative Normal Negative [facility] Comment on above: Order Comment: Speci men Type: BLOOD SPECIMENOrdering Facility: [facility] Address: [address] [place] [address] Performed By: #### 2 2314-9, 5195-3, 72460-5 ####[facility] LABCLIA [id number] [place] [id number] [place] HCV RNA SerPl ANUSHA+probe-aCnc on 12-07-2023 HCV RNA ANUSHA+probe Qn Not detected Normal HCV RNA not detected by PCR. [facility] Comment on above: Order Comment: Speci men Type: BLOOD SPECIMENOrdering Facility: [facility] Address: [address] [place] [address] Performed By: #### 1 1011-4 ####[facility] LABCLIA [id number] [place] [id number] [place] HISTORY PHYSICALon HISTORY PHYSICAL HNO ID: [id number] Author: APOLINAR PINEDO MD Service: ? Author Type: Physician Type: H&P Filed: 12/07/2023 16:14 Note Text: HISTORY AND PHYSICAL EXAMINATION SERVICE DATE: 12/07/2023 SERVICE TIME: 4:10 PM PRIMARY CARE PHYSICIAN: WENDIE Rice ASSESSMENT AND PLAN Patient Active Hospital Problem List: Transaminitis (12/07/2023) Gastroparesis (01/20/2023) Class 3 severe obesity in adult (HCC) (01/20/2023) Chronic abdominal pain (05/24/2023) Substance abuse (HCC) (12/07/2023) Bipolar disorder ([facility]) (12/07/2023) Plan: Patient Active Hospital Problem List: 1. Transaminitis Exact etiology is not clear. Suspect drug induced. GI consulted. Monitor LFT.s closely. 2. Gastroparesis POA: Yes GI consult. No narcotics. 3. Chronic abdominal pain POA: Yes Physical examination is benign. Suspect drug seeking behavior. 4. Class 3 severe obesity in adult (HCC) POA: Yes Management as outpatient. 5. Substance abuse ([facility]) POA: Yes Advised to stop. Is positive for 3 different chemicals. 6. Bipolar disorder ([facility]) POA: Yes Management as outpatient. 7. Asthma is stable. 8. Possible UTI: Continue with antibiotics. Discussed with ER physician in details. Discussed with patient in details. Discussed with nursing staff. SUBJECTIVE CHIEF COMPLAINT: abdominal pain HPI: 33-year-old female with past medical history of IBS, gastroparesis, migraine headaches, asthma, depression, anemia, depression presents with complaint of nausea, vomiting and diarrhea. Patient reports 2 days of symptoms she associates with flareup of gastroparesis. She reports watery diarrhea, stabbing, cramping and aching abdominal pain which is primarily epigastric with nausea. She states that she has vomiting after eating any food however this is chronic for her. She is tolerating small amounts of liquid. She denies fevers, chills, hematochezia, melena, urinary urgency, frequency or dysuria. States that she went to a hospital near her home twice over the past 3 days. She then called Dr. Flanagan who she follows with for gastroenterology who recommended that she come to [facility] emergency department for evaluation. Patient reports that Zofran helps her symptoms however she ran out of and had not had a zofran prescription in some time. She otherwise states that she is prescribed hydrocodone by outside ED which she took 1 of. She has not taken any other medications for symptoms. She reports abdominal surgical history of cholecystectomy 2020 and tubal ligation. No regular alcohol use. PAST MEDICAL HISTORY: PAST MEDICAL HISTORY Diagnosis Date Anemia ATEENAGER Asthma Depression FRACTURE 18 MONTHS FRACTURE ARM IBS (irritable bowel syndrome) Migraine, unspecified, with intractable migraine, so stated, without mention of status migrainosus Migraine depression PAST SURGICAL HISTORY: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 Performed By: #### 2 04234 #### [facility],[address] [place] [address] Lymph # 0.90 x10EE3/UL Normal 0.80 - 2.80 [facility] Comment on above: Performed By: #### 2 82602 #### [facility],[address] [place] [address] Lymphocytes/100 WBC (Bld) 14.0 % Low 20.0 - 45.0 [facility] Comment on above: Performed By: #### 2 61552 #### [facility],[address] [place] [address] MANUAL DIFF N/A Normal [facility] Comment on above: Performed By: #### 2 37181 #### [facility],[address] [place] [address] MCH (RBC) [Entitic mass] 29 pg Normal 27 - 33 [facility] Comment on above: Performed By: #### 2 54588 #### [facility],[address] [place], [place] [id number] MCHC 33 X10 3 Normal 32 - 36 [facility] Comment on above: Performed By: #### 2 04917 #### [facility],[address] [place], [place] [id number] MCV (RBC) [Entitic vol] 89 fL Normal 80 - [address] [facility] Comment on above: Performed By: #### 2 08092 #### [facility],[address] [place] [address] Kimball # 0.60 x10EE3/UL Normal 0.20 - 1.00 [facility] Comment on above: Performed By: #### 2 01482 #### [facility],[address] [place] [address] 04085 MONOS % 8.5 % Normal 0.0 - 10.0 [facility] Comment on above: Performed By: #### 2 53166 #### [facility],[address] [place] [address] 25943 Morphology Florentino (Bld) [Interp] N/A Normal [facility] Comment on above: Result Comment: {CD] Performed By: #### 2 17968 #### [facility],[address] [place] [address] 63535 Neut # 4.90 x10EE3/UL Normal 1.50 - 7.10 [facility] Comment on above: Performed By: #### 2 47649 #### [place] [id number] Neutrophils/100 WBC (Bld) 74.3 % Normal 46.0 - 76.0 [facility] Comment on above: Performed By: #### 2 35013 #### [facility],[address] [place], [place] [id number] PLATELET 359 x10EE3/UL Normal 150 - 450 [facility] Comment on above: Performed By: #### 2 94167 #### [facility],[address] [place], [place] [id number] Platelet mean volume (Bld) [Entitic vol] 7.0 fL Normal 6.6 - 10.5 [facility] Comment on above: Result Comment: AUTO MATED DIFFERENTIAL Performed By: #### 2 00582 #### [facility],[address] [place] [address] 89873 RBC 5.12 x 10EE6/UL Normal 4.10 - 5.30 [facility] Comment on above: Performed By: #### 2 46227 #### [facility],[address] [place] [address] 05748 WBC 6.6 x 10EE3/UL Normal 4.5 - 10.8 [facility] Comment on above: Performed By: #### 2 44464 #### [facility],[address] [place] [address] 25167 CMP with eGFR - DAILYon AGE 33 years Normal [facility] Comment on above: Performed By: #### 2 67809 #### [facility],[address] [place] [address] 34691 Albumin [Mass/Vol] 3.3 g/dL Low 3.4 - 5.0 [facility] Comment on above: Performed By: #### 2 58460 #### [facility],[address] [place] [address] 99832 Albumin/Globulin [Mass ratio] 0.8 {ratio} Low 0.9 - 1.6 [facility] Comment on above: Performed By: #### 2 96407 #### [facility],[address] [place] [address] 14469 ALK PHOS 101 U/L Normal 46 - 116 [facility] Comment on above: Performed By: #### 2 72946 #### [facility],[address] [place] [address] 27932 ALT [Catalytic activity/Vol] 21 U/L Normal 14 - 59 [facility] Comment on above: Performed By: #### 2 32972 #### [facility],[address] [place] [address] 60878 Anion gap [Moles/Vol] 15 mmol/L Normal 10 - 20 [facility] Comment on above: Performed By: #### 2 30116 #### [facility],[address] [place] [address] 69168 AST [Catalytic activity/Vol] 9 U/L Low 13 - 39 [facility] Comment on above: Performed By: #### 2 15034 #### [facility],[address] [place] [address] 73711 B/C RATIO 12 ratio Normal 0 - 30 [facility] Comment on above: Performed By: #### 2 79958 #### [facility],[address] [place] [address] 13975 Bilirubin [Mass/Vol] 0.2 mg/dL Normal 0.2 - 1.0 [facility] Comment on above: Performed By: #### 2 60315 #### [facility],[address] [place] [address] 56861 Calcium [Mass/Vol] 9.1 mg/dL Normal 8.5 - 10.1 [facility] Comment on above: Performed By: #### 2 46991 #### [facility],[address] [place] [address] 98655 Chloride [Moles/Vol] 105 mmol/L Normal 98 - 107 [facility] Comment on above: Performed By: #### 2 49406 #### [facility],[address] [place], [place] [id number] CMP with eGFR - DAILY Normal [facility] Comment on above: Result Comment: COMP REHENSIVE METABOLIC PANEL Performed By: #### 2 58251 #### [facility],[address] [place] [address] 71000 CO2 [Moles/Vol] 26.3 mmol/L Normal 21.0 - 32.0 [facility] Comment on above: Performed By: #### 2 62363 #### [facility],[address] [place] [address] 71077 Creatinine [Mass/Vol] 1.12 mg/dL High 0.55 - 1.02 [facility] Comment on above: Performed By: #### 2 75771 #### [facility],[address] [place] [address] 92784 eGFR 56 ML/MINUTE Low 60 - 999 [facility] Comment on above: Performed By: #### 2 34613 #### [facility],[address] [place] [address] 58501 GFR/1.73 sq M.predicted among non-blacks MDRD (S/P/Bld) [Vol rate/Area] mL/min/{1.73_m2} Normal 60 - 999 [facility] Comment on above: Result Comment: ACCO RDING TO THE NATIONAL KIDNEY DISEASE EDUCATION PROGRAM(NKDE), A NORMAL eGFR IS A VALUE GREATER THAN OR EQUAL TO 60 ML/MIN/1.73 SQ METERS. CHRONIC KIDNEY DISEASE: <60mL/MIN/1.73 SQ METERS KIDNEY FAILURE: <15mL/MIN/1.73 SQ METERS Performed By: #### 2 31077 #### [facility],[address] [place] [address] 48863 Globulin (S) [Mass/Vol] 3.9 g/dL High 1.5 - 3.8 [facility] Comment on above: Performed By: #### 2 79732 #### [facility],[address] [place] [address] 73032 Glucose [Mass/Vol] 83 mg/dL Normal 74 - 106 [facility] Comment on above: Performed By: #### 2 26310 #### [facility],[address] [place] [address] 22848 Potassium [Moles/Vol] 4.1 mmol/L Normal 3.5 - 5.1 [facility] Comment on above: Performed By: #### 2 11754 #### [facility],[address] [place] [address] 94436 Protein [Mass/Vol] 7.2 g/dL Normal 6.4 - 8.2 [facility] Comment on above: Performed By: #### 2 06408 #### [facility],[address] [place] [address] 12136 Sodium [Moles/Vol] 142 mmol/L Normal 136 - 145 [facility] Comment on above: Performed By: #### 2 25953 #### [facility],[address] [place] [address] 13577 Urea nitrogen [Mass/Vol] 13 mg/dL Normal 7 - 18 [facility] Comment on above: Performed By: #### 2 07827 #### [facility],[address] [place] [address] LIPASEon 10-29-2023 Lipase [Catalytic activity/Vol] 26.0 U/L Normal 15.0 - 78.0 [facility] Comment on above: Result Comment: *PLE ASE NOTE THAT RANGES FOR LIPASE HAVE CHANGED OF 10/22/23 DUE TO AN ASSAY UPDATE BY THE RECTIFYING ATTENDANT.THE NEW ASSAY RANGE IS 6-250 U/L, WITH A REFERENCE RANGE OF 16-77 U/L. Performed By: #### 2 63424 #### [facility],[address] [place] [address] URINEon 10-29-2023 Beta HCG ( test) Ql (U) Negative Normal NEGATIVE [facility] Comment on above: Performed By: #### 2 47724 ####[facility],[address] [place] [address] EXTERNAL QC DONE? YES Normal [facility] Comment on above: Performed By: #### 2 93911 ####[facility],[address] [place] [address] INTERNAL QC PASS Normal [facility] Comment on above: Performed By: #### 2 57412 ####[facility],[address] [place] [address] URINALYSIS WITH MICROSCOPYon 10-29-2023 Amorphous NONE Normal [facility] Comment on above: Performed By: #### 2 81442 #### [facility],[address] [place] [address] Bacteria TRACE Normal [facility] Comment on above: Performed By: #### 2 61190 #### [facility],[address] [place] [address] Bilirubin Ql (U) Negative Normal NORMAL: NEGATIVE [facility] Comment on above: Performed By: #### 2 00579 #### [facility],[address] [place] [address] 76558 Casts NONE Normal [facility] Comment on above: Performed By: #### 2 30312 #### [facility],[address] [place] [address] 35338 Clarity (U) sl.cloudy Normal NORMAL: CLEAR [facility] Comment on above: Performed By: #### 2 73024 #### [facility],[address] [place], [place] [id number] Color (U) yellow Normal NORMAL: YELLOW [facility] Comment on above: Performed By: #### 2 19032 #### [facility],[address] [place], [place] [phone] Crystals LM Nom (Urine sed) NONE Normal [facility] Comment on above: Performed By: #### 2 17148 #### [facility],[address] [place], [place] [id number] Epi Cells MANY Normal [facility] Comment on above: Performed By: #### 2 13233 #### [facility],[address] [place] [address] 49191 Glucose Ql (U) NORM Normal NORMAL: NORMAL [facility] Comment on above: Performed By: #### 2 06281 #### [facility],[address] [place] [address] 99492 Hemoglobin Ql (U) Negative Normal NORMAL: NEGATIVE [facility] Comment on above: Performed By: #### 2 30592 #### [facility],[address] [place] [address] 42211 Ketone Negative Normal NORMAL: NEGATIVE [facility] Comment on above: Performed By: #### 2 24477 #### [facility],[address] [place] [address] 65499 Leukocytes Negative Normal NORMAL: NEGATIVE [facility] Comment on above: Result Comment: URIN E MICROSCOPIC Performed By: #### 2 35018 #### [facility],[address] [place] [address] Mucous 1+ Normal [facility] Comment on above: Performed By: #### 2 72755 #### [facility],[address] [place], [place] [id number] Nitrite Ql (U) Negative Normal NORMAL: NEGATIVE [facility] Comment on above: Performed By: #### 2 76248 #### [facility],[address] [place] [address] pH (U) 5 [pH] Normal NORMAL: 5.0-8.0 [facility] Comment on above: Performed By: #### 2 04066 #### [facility],[address] [place] [address] Protein Ql (U) Negative Normal NORMAL: NEGATIVE [facility] Comment on above: Performed By: #### 2 42522 #### [facility],[address] [place] [address] Rbc NONE Normal 0-3 / hpf [facility] Comment on above: Performed By: #### 2 05485 #### [facility],[address] [place] [address] Sp [place] 1.020 Normal NORMAL: 1.010-1.030 [facility] Comment on above: Performed By: #### 2 40983 #### [facility],[address] [place] [address] Specimen Type R Normal [facility] Comment on above: Performed By: #### 2 66658 #### [facility],[address] [place] [address] URINALYSIS WITH MICROSCOPY Normal [facility] Comment on above: Result Comment: URIN ALYSIS Performed By: #### 2 11683 #### [facility],[address] [place] [address] Urobilinog NORM Normal NORMAL: NORMAL [facility] Comment on above: Performed By: #### 2 93917 #### [facility],[address] [place] [address] 81178 Wbc NONE Normal 0-5 / hpf [facility] Comment on above: Performed By: #### 2 13639 #### [facility],[address] [place] [address] 63651 Yeast NONE Normal [facility] Comment on above: Performed By: #### 2 98946 #### [facility],[address] [place] [address] RENALon 09-29-2023 CT RENAL ORIGINAL EXAMINATION: CT RENAL09/29/2023 11:41 am TECHNIQUE: CT of the abdomen was performed without and then with the administration of intravenous contrast. Multiplanar reformatted images are provided for review. Automated exposure control, iterative reconstruction, and/or weight based adjustment of the mA/kV was utilized to reduce the radiation dose to as low as reasonably achievable. COMPARISON: CT abdomen and pelvis 08/17/2023. Pre contrast imaging: HISTORY: ORDERING SYSTEM PROVIDED HISTORY: Reason for Exam: renal lesion found on CT of ABD FINDINGS: Lung bases are clear. Precontrast imaging: There is no evidence of nephrolithiasis. Postcontrast imaging: Gallbladder is surgically absent. Liver and stomach and spleen and pancreas and adrenal glands are normal. There is a fairly well-circumscribed hypodense lesion measuring 1 cm in the posterior lower pole of the right kidney seen on image 31, series number 3, as well as image 70 and coronal series 601. Otherwise there is no hydronephrosis. Caliber of the abdominal aorta is normal. Visualized large and small bowel is unremarkable. There is no abdominal lymphadenopathy or inflammatory process or ascites. Visualized osseous structures are normal in appearance. IMPRESSION: 1. 1 cm rounded hypodense lesion in the posterior lower pole of the right kidney corresponding with previously noted lesion seen on prior CT scan of the abdomen of 08/17/2023. Recommendation: Initial further ultrasound with renal ultrasound to determine solid versus cystic nature. If findings remain indeterminate, recommend proceeding with MRI of the kidneys with gadolinium. Interpreted by: Ryan Capone Preliminary Report By: Ryan Capone Electronically signed By Ryan Capone Dictated Date: 09/29/2023 11:43:26 AM Prelim Date: 09/29/2023 11:50:35 AM Sign Date: 09/29/2023 11:50:35 AM Ordering Provider: KOJO Reddy [facility] ([place]) CBC W Auto Differential pane l (Bld)on 09-22-2023 Basophils (Bld) [#/Vol] 0.03 10*3/uL Normal <0.11 [facility] Comment on above: Order Comment: Speci men Type: BLOOD SPECIMENOrdering Facility: [facility] Address: [address] [place] [address] Performed By: #### 5 7021-8 ####[facility]ORATORYCLIA [id number] [place] [address] [place] Basophils/100 WBC (Bld) 0.8 % Normal [facility] Comment on above: Order Comment: Speci men Type: BLOOD SPECIMENOrdering Facility: [facility] Address: [address] [place] [address] Performed By: #### 5 7021-8 ####[facility]ORATORYCLIA [id number] [place] [address] [place] Differential cell count method Nom (Bld) Auto [facility] Comment on above: Order Comment: Speci men Type: BLOOD SPECIMENOrdering Facility: [facility] Address: [address] [place] [address] Performed By: #### 5 7021-8 ####[facility]ORATORYCLIA [id number] [place] [address] [place] Eosinophils (Bld) [#/Vol] 0.05 10*3/uL Normal <0.46 [facility] Comment on above: Order Comment: Speci men Type: BLOOD SPECIMENOrdering Facility: [facility] Address: [address] [place] [address] Performed By: #### 5 7021-8 ####[facility]ORATORYCLIA [id number] [place] [address] [place] Eosinophils/100 WBC (Bld) 1.3 % Normal [facility] Comment on above: Order Comment: Speci men Type: BLOOD SPECIMENOrdering Facility: [facility] Address: [address] [place] [address] Performed By: #### 5 7021-8 ####[facility]ORATORYCLIA [id number] [place] [address] [place] Erythrocyte distribution width (RBC) [Ratio] 13.5 % Normal 11.5-15.0 [facility] Comment on above: Order Comment: Speci men Type: BLOOD SPECIMENOrdering Facility: [facility] Address: [address] [place] [address] Performed By: #### 5 7021-8 ####[facility]ORATORYCLIA [id number] [place] [address] [place] Hematocrit (Bld) [Volume fraction] 45.1 % Normal 36.0-46.0 [facility] Comment on above: Order Comment: Speci men Type: BLOOD SPECIMENOrdering Facility: [facility] Address: [address] [place] [address] Performed By: #### 5 7021-8 ####[facility] LABORATORYCLIA [id number] [place] [address] [place] Hemoglobin (Bld) [Mass/Vol] 15.1 g/dL Normal 11.5-15.5 [facility] Comment on above: Order Comment: Speci men Type: BLOOD SPECIMENOrdering Facility: [facility] Address: [address] [place] [address] Performed By: #### 5 7021-8 ####[facility]ORATORYCLIA [id number] [place] [address] [place] Immature granulocytes (Bld) [#/Vol] 10*3/uL Normal <0.10 [facility] Comment on above: Order Comment: Speci men Type: BLOOD SPECIMENOrdering Facility: [facility] Address: [address] [place] [address] Performed By: #### 5 7021-8 ####[facility]ORATORYCLIA [id number] [place] [address] [place] Immature granulocytes/100 WBC (Bld) 0.3 % Normal [facility] Comment on above: Order Comment: Speci men Type: BLOOD SPECIMENOrdering Facility: [facility] Address: [address] [place] [address] Performed By: #### 5 7021-8 ####[facility]ORATORYCLIA [id number] [place] [address] [place] Lymphocytes (Bld) [#/Vol] 1.02 10*3/uL Normal 1.00-4.00 [facility] Comment on above: Order Comment: Speci men Type: BLOOD SPECIMENOrdering Facility: [facility] Address: [address] [place] [address] Performed By: #### 5 7021-8 ####[facility]ORATORYCLIA [id number] [address] [place] Lymphocytes/100 WBC (Bld) 27.1 % Normal [facility] Comment on above: Order Comment: Speci men Type: BLOOD SPECIMENOrdering Facility: [facility] Address: [address] [place] [address] Performed By: #### 5 7021-8 ####[facility]ORATORYCLIA [id number] [place] [address] [place] MCH (RBC) [Entitic mass] 30.0 pg Normal 26.0-34.0 [facility] Comment on above: Order Comment: Speci men Type: BLOOD SPECIMENOrdering Facility: [facility] Address: [address] [place] [address] Performed By: #### 5 7021-8 ####[facility]ORATORYCLIA [id number] [place] [address] [place] MCHC (RBC) [Mass/Vol] 33.5 g/dL Normal 30.5-36.0 [facility] Comment on above: Order Comment: Speci men Type: BLOOD SPECIMENOrdering Facility: [facility] Address: [address] [place] [address] Performed By: #### 5 7021-8 ####[facility]ORATORYCLIA [id number] [place] [address] [place] MCV (RBC) [Entitic vol] 89.7 fL Normal 80.0-100.0 [facility] Comment on above: Order Comment: Speci men Type: BLOOD SPECIMENOrdering Facility: [facility] Address: [address] [place] [address] Performed By: #### 5 7021-8 ####[facility]ORATORYCLIA [id number] [place] [address] [place] Monocytes (Bld) [#/Vol] 0.65 10*3/uL Normal <0.87 [facility] Comment on above: Order Comment: Speci men Type: BLOOD SPECIMENOrdering Facility: [facility] Address: [address] [place] [address] Performed By: #### 5 7021-8 ####[facility]ORATORYCLIA [id number] [place] [address] [place] Monocytes/100 WBC (Bld) 17.2 % Normal [facility] Comment on above: Order Comment: Speci men Type: BLOOD SPECIMENOrdering Facility: [facility] Address: [address] [place] [address] Performed By: #### 5 7021-8 ####[facility]ORATORYCLIA [id number] [place] [address] [place] Neutrophils (Bld) [#/Vol] 2.01 10*3/uL Normal 1.45-7.50 [facility] Comment on above: Order Comment: Speci men Type: BLOOD SPECIMENOrdering Facility: [facility] Address: [address] [place] [address] Performed By: #### 5 7021-8 ####[facility]ORATORYCLIA [id number] [place] [address] [place] Neutrophils/100 WBC (Bld) 53.3 % Normal [facility] Comment on above: Order Comment: Speci men Type: BLOOD SPECIMENOrdering Facility: [facility] Address: [address] [place] [address] Performed By: #### 5 7021-8 ####[facility]ORATORYCLIA [id number] [place] [id number] [place] Nucleated RBC (Bld) [#/Vol] 10*3/uL Normal <0.01 [facility] Comment on above: Order Comment: Speci men Type: BLOOD SPECIMENOrdering Facility: [facility] Address: [address] [place] [address] Performed By: #### 5 7021-8 ####[facility]ORATORYCLIA [id number] [place] [address] [place] Nucleated RBC/100 WBC (Bld) [Ratio] 0.0 /100 WBC Normal [facility] Comment on above: Order Comment: Speci men Type: BLOOD SPECIMENOrdering Facility: [facility] Address: [address] [place] [address] Performed By: #### 5 7021-8 ####[facility]ORATORYCLIA [id number] [place] [address] [place] Platelet mean volume (Bld) [Entitic vol] 9.4 fL Normal 9.0-12.7 [facility] Comment on above: Order Comment: Speci men Type: BLOOD SPECIMENOrdering Facility: [facility] Address: [address] [place] [address] Performed By: #### 5 7021-8 ####[facility]ORATORYCLIA [id number] [place] [address] [place] Platelets (Bld) [#/Vol] 275 10*3/uL Normal 150-400 [facility] Comment on above: Order Comment: Speci men Type: BLOOD SPECIMENOrdering Facility: [facility] Address: [address] [place] [address] Performed By: #### 5 7021-8 ####[facility]ORATORYCLIA [id number] [place] [address] [place] RBC (Bld) [#/Vol] 5.03 10*6/uL Normal 3.90-5.20 [facility] Comment on above: Order Comment: Speci men Type: BLOOD SPECIMENOrdering Facility: [facility] Address: [address] [place] [address] Performed By: #### 5 7021-8 ####[facility]ORATORYCLIA [id number] [place] [id number] [place] WBC (Bld) [#/Vol] 3.77 10*3/uL Normal 3.70-11.00 [facility] Comment on above: Order Comment: Speci men Type: BLOOD SPECIMENOrdering Facility: [facility] Address: [address] [place] [address] Performed By: #### 5 7021-8 ####[facility] LABORATORYCLIA [id number] [place] [id number] [facility] Comprehensive metabolic 2000 panelon 09-22-2023 Albumin [Mass/Vol] 4.1 g/dL Normal 3.9-4.9 [facility] Comment on above: Order Comment: Speci men Type: BLOOD SPECIMENOrdering Facility: [facility] Address: [address] [place] [address] Performed By: #### 3 040-3, 52973-6 ####[facility]ORATORYCLIA [id number] [place] [address] [place] ALP [Catalytic activity/Vol] 105 U/L Normal 34-123 [facility] Comment on above: Order Comment: Speci men Type: BLOOD SPECIMENOrdering Facility: [facility] Address: [address] [place] [address] Performed By: #### 3 040-3, 50268-6 ####[facility]ORATORYCLIA [id number] [place] [id number] [place] ALT [Catalytic activity/Vol] 18 U/L Normal 7-38 [facility] Comment on above: Order Comment: Speci men Type: BLOOD SPECIMENOrdering Facility: [facility] Address: [address] [place] [address] Performed By: #### 3 040-3, 62712-0 ####[facility]ORATORYCLIA [id number] [place] [address] [place] Anion gap [Moles/Vol] 9 mmol/L Normal 9-18 [facility] Comment on above: Order Comment: Speci men Type: BLOOD SPECIMENOrdering Facility: [facility] Address: [address] [place] [address] Performed By: #### 3 040-3, 78317-5 ####[facility] LABORATORYCLIA [id number] [place] [address] [place] AST [Catalytic activity/Vol] 19 U/L Normal 13-35 [facility] Comment on above: Order Comment: Speci men Type: BLOOD SPECIMENOrdering Facility: [facility] Address: [address] [place] [address] Performed By: #### 3 040-3, 82065-5 ####[facility]ORATORYCLIA [id number] [place] [address] [place] Bilirubin [Mass/Vol] 0.2 mg/dL Normal 0.2-1.3 [facility] Comment on above: Order Comment: Speci men Type: BLOOD SPECIMENOrdering Facility: [facility] Address: [address] [place] [address] Performed By: #### 3 040-3, 56650-9 ####[facility] LABORATORYCLIA [id number] [place] [address] [place] Calcium [Mass/Vol] 8.9 mg/dL Normal 8.5-10.2 [facility] Comment on above: Order Comment: Speci men Type: BLOOD SPECIMENOrdering Facility: [facility] Address: [address] [place] [address] Performed By: #### 3 040-3, 90033-4 ####[facility]ORATORYCLIA [id number] [place] [address] [place] Chloride [Moles/Vol] 102 mmol/L Normal 97-105 [facility] Comment on above: Order Comment: Speci men Type: BLOOD SPECIMENOrdering Facility: [facility] Address: [address] [place] [address], [place] [address] Performed By: #### 3 040-3, 96091-3 ####[facility] LABORATORYCLIA [id number] [place] [id number] [place] CO2 [Moles/Vol] 28 mmol/L Normal 22-30 [facility] Comment on above: Order Comment: Speci men Type: BLOOD SPECIMENOrdering Facility: [facility] Address: [address] [place] [address] Performed By: #### 3 040-3, 44811-6 ####[facility] LABORATORYCLIA [id number] [place] [id number] [place] Creatinine [Mass/Vol] 0.77 mg/dL Normal 0.58-0.96 [facility] Comment on above: Order Comment: Speci men Type: BLOOD SPECIMENOrdering Facility: [facility] Address: [address] [place] [address] Performed By: #### 3 040-3, 49106-3 ####[facility] LABORATORYCLIA [id number] [place] [address] [place] Creatinine and Glomerular filtration rate.predicted panel (S/P/Bld) 105 mL/min/1.73m??? Normal >=60 [facility] Comment on above: Order Comment: Speci men Type: BLOOD SPECIMENOrdering Facility: [facility] Address: [address] [place] [address] Result Comment: Jeremy mated Glomerular Filtration Rate (eGFR) is calculated using the 2020 CKD-EPI creatinine equation. This equation utilizes serum creatinine, sex, and age as parameters. The creatinine assay has traceable calibration to isotope dilution-mass spectrometry. Refer to KDIGO guidelines for clinical interpretation. In patients with unstable renal function, e.g. those with acute kidney injury, the eGFR may not accurately reflect actual GFR. Performed By: #### 3 040-3, 83313-8 ####[facility] LABORATORYCLIA [id number] [place] [id number] [place] Glucose [Mass/Vol] 69 mg/dL Low 74-99 [facility] Comment on above: Order Comment: Clemencia colunga Type: BLOOD SPECIMENOrdering Facility: [facility] Address: [address] [place] [address] Result Comment: The [place] [employer] (ADA) provides guidance for cutoff values for fasting glucose and random glucose. The ADA defines fasting as no caloric intake for at least 8 hours. Fasting plasma glucose results between 100 to 125 mg/dL indicate increased risk for diabetes (prediabetes). Fasting plasma glucose results greater than or equal to 126 mg/dL meet the criteria for diagnosis of diabetes. In the absence of unequivocal hyperglycemia, results should be confirmed by repeat testing. In a patient with classic symptoms of hyperglycemia or hyperglycemic crisis, random plasma glucose results greater than or equal to 200 mg/dL meet the criteria for diagnosis of diabetes. Reference: Standards of Medical Care in Diabetes 2016, [place] [employer]. Diabetes Care. 2016.39(Suppl 1). Performed By: #### 3 040-3, 80116-4 ####[facility] LABORATORYCLIA [id number] [place] [id number] [place] Potassium [Moles/Vol] 4.4 mmol/L Normal 3.7-5.1 [facility] Comment on above: Order Comment: Clemencia colunga Type: BLOOD SPECIMENOrdering Facility: [facility] Address: [address] [place] [address] Performed By: #### 3 040-3, 30780-3 ####[facility] LABORATORYCLIA [id number] [place] [id number] [place] Protein [Mass/Vol] 7.2 g/dL Normal 6.3-8.0 [facility] Comment on above: Order Comment: Clemencia colunga Type: BLOOD SPECIMENOrdering Facility: [facility] Address: [address] [place] [address] Performed By: #### 3 040-3, 00810-8 ####[facility] LABORATORYCLIA [id number] [place] [address] [place] Sodium [Moles/Vol] 139 mmol/L Normal 136-144 [facility] Comment on above: Order Comment: Bijani men Type: BLOOD SPECIMENOrdering Facility: [facility] Address: [address] [place] [address] Performed By: #### 3 040-3, 91612-1 ####[facility] LABORATORYCLIA [id number] [place] [id number] [facility] Urea nitrogen [Mass/Vol] 11 mg/dL Normal 7-21 [facility] Comment on above: Order Comment: Speci men Type: BLOOD SPECIMENOrdering Facility: [facility] Address: [place] [address] Performed By: #### 3 040-3, 62088-1 ####[facility] LABORATORYCLIA [id number] [place] [id number] [place] D dimer FEU PPP-mCncon 09-22 Fibrin D-dimer FEU (PPP) [Mass/Vol] 370 ng/mL FEU Normal <500 [facility] Comment on above: Order Comment: Speci men Type: BLOOD SPECIMENOrdering Facility: [facility] Address: [place] [address] Performed By: #### 4 8065-7 ####[facility] LABORATORYCLIA [id number] [address] [place] ECG COMPLETEon 09-22-2023 ECG COMPLETE Ventricular Rate : 8 4 BPM Atrial Rate : 84 BPM P-R Interval : 120 ms QRS Duration : 86 ms Q-T Interval : 384 ms QTC Calculation(Bazett) : 453 ms Calculated P [place] : 52 degrees Calculated R [place] : 72 degrees Calculated T [place] : 55 degrees NORMAL SINUS RHYTHM WITH SINUS ARRHYTHMIA NORMAL ECG NO PREVIOUS ECGS AVAILABLE Confirmed by DO TRAN LAUREL ([id number]), editor in chief ROSALIO RDZ ([id number]) on 09/23/2023 2:08:37 PM NAME : BECKI JACKSON PID : [id number] : 1990 Gender : Female Race : ORD : [id number] Procedure Date : Sep 22 2023 18:08:22 Edit Date : Sep 23 2023 14:08:38 Diagnosis: NORMAL SINUS RHYTHM WITH SINUS ARRHYTHMIA NORMAL ECG NO PREVIOUS ECGS AVAILABLE Confirmed by DO TRAN LAUREL ([id number]), editor in chief ROSALIO RDZ ([id number]) on 09/23/2023 2:08:37 PM Test Reason : Chest Pain Location : 1 : 1 TC Overread By : DO TRAN LAUREL Edited By : ROSALIO RDZ Referred By : , Acquired by : [email or web address], [facility] ED NOTEon 09-22-2023 ED NOTE HNO ID: [id number] Author: Jacquie Davis RN Service: ? Author Type: Registered Nurse Type: ED Notes Filed: 09/22/2023 3:34 PM Note Text: Bed: [facility] Expected date: 09/22/23 Expected time: Means of arrival: Comments: triage [facility] ED NOTE HNO ID: [id number] Author: Callie Peace RN Service: ? Author Type: Registered Nurse Type: ED Notes Filed: 09/22/2023 3:12 PM Note Text: Right sided flank pain started yesterday. Also c/o right side hip pain. Flank pain has been intermittent for the past month and Pt has been seen at 2 other facilities for same. HX gastroparesis [facility] ED PROV NOTEon 09-22-2023 ED PROV NOTE HNO ID: [id number] Author: Ragini Chauhan PA-C Service: ? Author Type: Physician Linux Unix Engineer Type: ED Provider Notes Filed: 09/22/2023 7:08 PM Note Text: ED Provider Note Patient Name: Becki Jackson : 1990 SERVICE DATE: 09/22/23 History Patient presents with: Back Pain Flank Pain Patient is a 33-year-old female with past medical history of anemia, asthma, depression, IBS, migraines, depression and gastroparesis. Patient presents due to right-sided flank pain and abdominal pain. Patient states symptoms started 2 days ago. Patient was seen at a different ER at time of symptom onset, had a CT done at that time as well as labs. No significant findings found, patient was discharged. Patient returned to a separate ER yesterday where labs were done and again patient was discharged. Patient presents today stating she continues to have symptoms. Patient sees Dr. Flanagan here due to her gastroparesis. Patient states she has a right-sided flank pain that is worse with movement. Patient notes both vomiting and diarrhea however states this is baseline due to her gastroparesis and does not notice a change from her typical symptoms. No fevers. No dysuria, hematuria, urinary frequency or urgency. Patient has not taken any medication today for symptom management. 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 jeremy cyst upper mid back REMOVAL GALLBLADDER SALPINGECTOMY Bilateral 06/24/2017 B/L Laprascopic Salpingectomy TONSILLECTOMY PRIMARY/SECONDARY Tonsillectomy AND ADNOIDS FAMILY HISTORY Problem Relation Age of Onset Arthritis Mother Heart Mother Thyroid Mother Heart Brother Heart Maternal Uncle Prostate Cancer Maternal Grandfather Emphysema Maternal Grandfather Heart Maternal Grandfather Cancer Paternal Grandfather LUNG AND PANCREATICCANCER Emphysema Paternal Grandfather Anesthesia Problems No Family History Blood Clots No Family History Clotting Disorder No Family History Social History Tobacco Use Smoking status: Former Years: 4 Types: Cigarettes Quit date: 03/08/2013 Years since quittin.5 Smokeless tobacco: Never Vaping Use Vaping Use: Not on file Substance and Sexual Activity Alcohol use: No Drug use: No Sexual activity: Yes Partners: Male ALLERGIES Allergen Reactions Iodinated Contrast * Vomiting Penicillins Hives Sulfa (Sulfonamide * Hives Review of Systems Constitutional: Negative for chills, fatigue and fever. HENT: Negative for congestion, rhinorrhea, sore throat, trouble swallowing and voice change. Eyes: Negative for photophobia and visual disturbance. Respiratory: Negative for cough and shortness of breath. Cardiovascular: Negative for chest pain. Gastrointestinal: Positive for abdominal pain, diarrhea (baseline), nausea (baseline) and vomiting (baseline). Negative for constipation. Genitourinary: Positive for flank pain. Negative for dysuria, frequency and urgency. Musculoskeletal: Negative for back pain, gait problem and neck pain. Skin: Negative for color change, pallor, rash and wound. Allergic/Immunologic: Negative for immunocompromised state. Neurological: Negative for dizziness, weakness, light-headedness, numbness and headaches. Hematological: Does not bruise/bleed easily. Psychiatric/Behaviora l: Negative for agitation and confusion. Physical Exam Vitals BP Pulse Temp Temp src Resp SpO2 Weight Height 09/22/23 1513 09/22/23 1513 09/22/23 1513 09/22/23 1513 09/22/23 1513 09/22/23 1513 09/22/23 1511 09/22/23 1511 (!) 129/49 (!) 112 36.8 ?C (98.2 ?F) Oral 20 99 % 97.5 kg (215 lb) 1.397 m (4' 7) Physical Exam Vitals and nursing note reviewed. Constitutional: General: She is not in acute distress. Appearance: Normal appearance. She is not ill-appearing, toxic-appearing or diaphoretic. HENT: Head: Normocephalic and atraumatic. Nose: Nose normal. Mouth/Throat: Mouth: Mucous membranes are moist. Pharynx: Oropharynx is clear. No oropharyngeal exudate or posterior oropharyngeal erythema. Eyes: Extraocular Movements: Extraocular movements intact. Conjunctiva/sclera: Conjunctivae normal. Pupils: Pupils are equal, round, and reactive to light. Cardiovascular: Rate and Rhythm: Normal rate and regular rhythm. Pulses: Normal pulses. Radial pulses are 2+ on the right side and 2+ on the left side. Heart sounds: Normal heart sounds. Pulmonary: Effort: Pulmonary effort is normal. N (more content not included)... Normal [facility] Lipase SerPl-cCncon 09-22-20 23 Lipase [Catalytic activity/Vol] 25 U/L Normal 16-61 [facility] Comment on above: Order Comment: Speci men Type: BLOOD SPECIMENOrdering Facility: [facility] Address: [address] [place] [address] Performed By: #### 3 040-3 03852-2 ####[facility] LABORATORYCLIA [id number] [place] [address] [place] Urinalysis complete panel (U )on 09-22-2023 Bilirubin Ql (U) Negative Normal Negative [facility] Comment on above: Order Comment: Speci men Type: URINE SPECIMENOrdering Facility: [facility] Address: [address] [place] [address] Performed By: #### 2 4356-8 ####[facility] LABORATORYCLIA [id number] [place] [address] [place] Clarity (Unsp spec) Clear Normal Clear [facility] Comment on above: Order Comment: Speci men Type: URINE SPECIMENOrdering Facility: [facility] Address: [address] [place] [address] Performed By: #### 2 4356-8 ####[facility] LABORATORYCLIA [id number] [place] [address] [place] Color (U) Yellow Normal Yellow [facility] Comment on above: Order Comment: Speci men Type: URINE SPECIMENOrdering Facility: [facility] Address: [address] [place] [address] Performed By: #### 2 4356-8 ####[facility] LABORATORYCLIA [id number] [place] [address] [place] Glucose Test strip (U) [Mass/Vol] Negative Normal Negative [facility] Comment on above: Order Comment: Speci men Type: URINE SPECIMENOrdering Facility: [facility] Address: [address] [place] [address] Performed By: #### 2 4356-8 ####[facility] LABORATORYCLIA [id number] [place] [address] [place] Hemoglobin Ql (U) Negative Normal Negative [facility] Comment on above: Order Comment: Speci men Type: URINE SPECIMENOrdering Facility: [facility] Address: [address] [place] [address] Performed By: #### 2 4356-8 ####[facility] LABORATORYCLIA [id number] [place] [address] [place] Ketones Ql (U) Negative Normal Negative [facility] Comment on above: Order Comment: Speci men Type: URINE SPECIMENOrdering Facility: [facility] Address: [address] [place] [address] Performed By: #### 2 4356-8 ####[facility] LABORATORYCLIA [id number] [place] [address] [place] Leukocyte esterase Test strip Ql (U) Negative Normal Negative [facility] Comment on above: Order Comment: Speci men Type: URINE SPECIMENOrdering Facility: [facility] Address: [address] [place] [address] Performed By: #### 2 4356-8 ####[facility] LABORATORYCLIA [id number] [place] [address] [place] Nitrite Ql (U) Negative Normal Negative [facility] Comment on above: Order Comment: Speci men Type: URINE SPECIMENOrdering Facility: [facility] Address: [address] [place] [address] Performed By: #### 2 4356-8 ####[facility] LABORATORYCLIA [id number] [place] [address] [place] pH (U) 7.5 [pH] Normal 5.0-8.0 [facility] Comment on above: Order Comment: Speci men Type: URINE SPECIMENOrdering Facility: [facility] Address: [address] [place] [address] Performed By: #### 2 4356-8 ####[facility] LABORATORYCLIA [id number] [place] [address] [place] Protein (U) [Mass/Vol] Negative Normal Negative So [facility] Comment on above: Order Comment: Speci men Type: URINE SPECIMENOrdering Facility: [facility] Address: [address] [place] [address] Performed By: #### 2 4356-8 ####[facility] LABORATORYCLIA [id number] [place] [address] [place] RBC LM.HPF (Urine sed) [#/Area] 0-3 /HPF Normal 0-3 /HPF [facility] Comment on above: Order Comment: Speci men Type: URINE SPECIMENOrdering Facility: [facility] Address: [address] [place] [address] Performed By: #### 2 4356-8 ####[facility] LABORATORYCLIA [id number] [place] [id number] [place] Specific gravity (U) [Rel density] 1.015 Normal 1.005-1.030 [facility] Comment on above: Order Comment: Speci men Type: URINE SPECIMENOrdering Facility: [facility] Address: [address] [place] [address] Performed By: #### 2 4356-8 ####[facility] LABORATORYCLIA [id number] [place] [address] [place] Urobilinogen Ql (U) 0.2 EU/dL Normal 0.2-1.0 EU/dL So [facility] Comment on above: Order Comment: Speci men Type: URINE SPECIMENOrdering Facility: [facility] Address: [address] [place] [address] Performed By: #### 2 4356-8 ####[facility] LABORATORYCLIA [id number] [place] [address] [place] WBC LM.HPF (Urine sed) [#/Area] 0-5 /HPF Normal 0-5 /HPF [facility] Comment on above: Order Comment: Speci men Type: URINE SPECIMENOrdering Facility: [facility] Address: [address] [place] [address] Performed By: #### 2 4356-8 ####[facility] LABORATORYCLIA [id number] [place] [address] [place] Absolute lymphocyte countOrd ered By: Denisa Walker on 09-21-2023 Lymphocytes Auto (Unsp spec) [#/Vol] 0.76 10*3/uL 0.83-4.51 [facility] Basophil percentageOrdered B y: Denisa Walker on 09-21-2023 Basophil percentage 10-25 SEEN /hpf 0-5 [facility] Basophils/100 WBC (Bld) 1.3 % 0-[address] [facility] Bilirubin [Mass/Vol] 0.40 mg/dL 0.20-1.[address] [facility] Comment on above: For patients on eltr ombopag therapy, use of Dimension [place] TBIL is not recommended. Chloride [Moles/Vol] 105 mmol/L 98-107 [facility] Eosinophils/100 WBC (Bld) 0.4 % 0-5 [facility] Glucose [Mass/Vol] 70 mg/dL 74-106 [facility] Neutrophils (Bld) [#/Vol] 0.8 10*3/uL 2.0-7.7 [facility] Neutrophils/100 WBC (Bld) 33.4 % 47-70 [facility] Potassium [Moles/Vol] 3.3 mmol/L 3.5-5.1 [facility] Protein [Mass/Vol] 8.0 g/dL 6.4-8.2 [facility] Sodium [Moles/Vol] 139 mmol/L 136-145 [facility] WBC (Bld) [#/Vol] 2.3 10*3/uL 4.4-11.0 [facility] Bilirubin Test strip Ql (U)O rdered By: Denisa Walker on 09-21-2023 Bilirubin Ql (U) Negative Negative [facility] Blood erythrocytes count (nu mber/volume)Ordered By: Denisa Walker on 09-21-2023 RBC (Bld) [#/Vol] 5.35 10*6/uL 4.2-5.4 [facility] Blood hemoglobin measurement (mass/volume)Ordered By: Denisa Walker on 09-21-2023 Hemoglobin (Bld) [Mass/Vol] 16.1 g/dL 12.0-15.0 [facility] Blood lymphocytes/100 leukoc ytesOrdered By: Denisa Walker on 09-21-2023 Lymphocytes/100 WBC (Bld) 32.9 % 19-41 [facility] Blood manual differential co mment interpretation (narrative result)Ordered By: Denisa Walker on 09-21-2023 Manual differential comment Florentino (Bld) [Interp] SCANNED [facility] Comment on above: NEUTROPENIA NOTED Blood monocytes/100 leukocyt esOrdered By: Denisa Walker on 09-21-2023 Monocytes/100 WBC (Bld) 31.6 % 0-[address] [facility] Blood platelet mean volumeOr dered By: Denisa Walker on 09-21-2023 Platelet mean volume (Bld) [Entitic vol] 8.8 fL 6.2-12.0 [facility] Culture, urineOrdered By: Eugenia Walker on 09-21-2023 Bacteria identified Cx Nom (U) Staphylococcus aureus [facility] Bacteria identified Cx Nom (U) Staphylococcus aureus [facility] Determination of erythrocyte mean corpuscular volume (MCV)Ordered By: Denisa Walker on 09-21-2023 MCV (RBC) [Entitic vol] 89.7 fL 81-[address] [facility] Hematocrit Auto (Bld) [Volum e fraction]Ordered By: Denisa Walker on 09-21-2023 Hematocrit (Bld) [Volume fraction] 48.0 % 37-47 [facility] Influenza virus A and B and SARS-CoV-2 (COVID-19) Ag panel - Upper respiratory specimOrdered By: Jeffery Araiza on 09-21-2023 SARS-CoV-2 (COVID-19) RNA ANUSHA+probe Ql (Resp) [facility] Ketones Test strip Ql (U)Ord ered By: Denisa Walker on 09-21-2023 Ketones Ql (U) 5 mg/dl Negative [facility] Laboratory - Chemistry and C hemistry - challengeOrdered By: Denisa Walker on 09-21-2023 ALP [Catalytic activity/Vol] 118 U/L 45-117 [facility] ALT [Catalytic activity/Vol] 26 U/L 13-56 [facility] CO2 [Moles/Vol] 29.0 mmol/L 21.0-32.0 [facility] Globulin (S) [Mass/Vol] 4.3 g/dL 2.2-4.[address] [facility] HCG ( test) Ql (U) Negative [facility] Comment on above: Very dilute urine sp ecimens, as indicated by a low specificgravity, may not contain rental sales representative levels of hCG. If is still suspected, a first morning urinespecimen should be collected 48 hours later and tested. Urea nitrogen/Creatinine [Mass ratio] 7.4 mg/mg 10-20 [facility] Laboratory - Hematology and Cell countsOrdered By: Denisa Walker on 09-21-2023 Erythrocyte distribution width (RBC) [Entitic vol] 43.8 fL 35.1-43.9 [facility] Erythrocyte distribution width (RBC) [Ratio] 13.4 % 11.6-14.6 [facility] Immature granulocytes/100 WBC (Bld) 0.400 % 0.0-0.9 [facility] Comment on above: IG% - Immature Granu locytes (promyelocytes, myelocytes and metamyelocytes) > 1% indicates that a LEFT SHIFT is Present. MCH (RBC) [Entitic mass] 30.1 pg 27.0-32.0 [facility] Nucleated RBC/100 WBC (Bld) [Ratio] 0 % 0-5 [facility] MCHC Auto (RBC) [Mass/Vol]Or dered By: Denisa Walker on 09-21-2023 MCHC (RBC) [Mass/Vol] 33.5 g/dL 32-36 [facility] Mucus LM Ql (Urine sed)Order ed By: Denisa Walker on 09-21-2023 Mucus Ql (Urine sed) 0 SEEN /hpf [facility] Nitrite Test strip Ql (U)Ord ered By: Denisa Walker on 09-21-2023 Nitrite Ql (U) Negative Negative [facility] No Panel InformationOrdered By: Denisa Walker on 09-21-2023 Estimated Creatinine Clearance Calc 76.50 ml/min [facility] Estimated GFR (MDRD) Amer 88 mL/min >60 [facility] Comment on above: GFR Calc Estimated GFR (MDRD) Non-Af Amer 73 mL/min >60 [facility] Comment on above: Non- GFR Calc Troponin I High Sensitivity 5 pg/mL 3.0-54.0 [facility] Comment on above: Please Note: [place] t Units and Gender Specific Reference Ranges. For more information see Policy Stat Procedure [place] High Sensitivity Troponin (TNIH) and attachments. Platelets bldOrdered By: Kary Walker on 09-21-2023 Platelets (Bld) [#/Vol] 281 10*3/uL 150-450 [facility] Protein Test strip Ql (U)Ord ered By: Denisa Walker on 09-21-2023 Protein Ql (U) 30 mg/dl Negative [facility] Serum or plasma albumin yolie urement (mass/volume)Ordered By: Denisa Walker on 09-21-2023 Albumin [Mass/Vol] 3.7 g/dL 3.2-5.0 [facility] Serum or plasma albumin/glob ulin mass ratioOrdered By: Denisa Walker on 09-21-2023 Albumin/Globulin [Mass ratio] 0.9 {ratio} 0.9-2.4 [facility] Serum or plasma calcium yolie urement (mass/volume)Ordered By: Denisa Walker on 09-21-2023 Calcium [Mass/Vol] 8.5 mg/dL 8.5-10.1 [facility] Serum or plasma creatinine m easurement (mass/volume)Ordered By: Denisa Walker on 09-21-2023 Creatinine [Mass/Vol] 0.95 mg/dL 0.55-1.02 [facility] Comment on above: The validity of the calculated GFR & GFRAA in patients over 70 years has not been determined. Clinical correlation is essential. Serum or plasma urea nitroge n measurement (mass/volume)Ordered By: Denisa Walker on 09-21-2023 Urea nitrogen [Mass/Vol] 7 mg/dL 7-18 [facility] Squamous epithelial cells de tection in urine sediment by light microscopyOrdered By: Denisa Walker on 09-21-2023 Epithelial cells.squamous LM Ql (Urine sed) 10-25 SEEN /hpf 5-10 [facility] Thin prep Papanicolaou smear with manual screeningOrdered By: Denisa Walker on 09-21-2023 Thin prep Papanicolaou smear with manual screening 14 U/L 15-37 [facility] Thin prep Papanicolaou smear with manual screening 5 5-15 [facility] Upper respiratory specimen i nfluenza A virus, influenza B virus, and severe acute resOrdered By: Jeffery Araiza on 09-21-2023 Upper respiratory specimen influenza A virus, influenza B virus, and severe acute res [facility] Upper respiratory specimen i nfluenza A virus, influenza B virus, and severe acute respiratory syndromOrdered By: Jeffery Araiza on 09-21-2023 Upper respiratory specimen influenza A virus, influenza B virus, and severe acute respiratory syndrom [facility] Urine blood detectionOrdered By: Denisa Walker on 09-21-2023 RBC Ql (U) 250 /ul Negative [facility] RBC Ql (U) 25-50 SEEN /hpf 0-5 [facility] Urine clarityOrdered By: Kary Walker on 09-21-2023 Clarity (U) Sl. Cloudy Clear [facility] Urine color determinationOrd ered By: Denisa Walker on 09-21-2023 Color (U) Yellow Yellow [facility] Urine glucose detectionOrder ed By: Denisa Walker on 09-21-2023 Glucose Ql (U) Normal mg/dl Normal [facility] Urine leukocyte esterase det ection by dipstickOrdered By: Denisa Walker on 09-21-2023 Leukocyte esterase Test strip Ql (U) 100 /ul Negative [facility] Urine pHOrdered By: Denisa giordano on 09-21-2023 pH (U) 6.0 [pH] 5.0 - 8.0 [facility] Urine sediment bacteria coun t by microscopy (number/high power field)Ordered By: Denisa Walker on 09-21-2023 Bacteria LM.HPF (Urine sed) [#/Area] 2 /[HPF] None Seen [facility] Urine specific gravity measu rementOrdered By: Denisa Walker on 09-21-2023 Specific gravity (U) [Rel density] 1.025 1.002-1.030 [facility] Urobilinogen Auto test strip Ql (U)Ordered By: Denisa Walker on 09-21-2023 Urobilinogen Ql (U) 1 mg/dl Normal [facility] .Auto Diffon 08-31-2023 Basophil, Absolute 0.1 10 3/mcL Normal 0.0-0.3 [facility] ([place]) Comment on above: Performed By: #### A DIFF, CMP, MDW, ANEU, CBC, GFR ####[address] [address] Basophils/100 WBC (Bld) 0.9 % Normal 0.0-2.5 A [facility] ([place]) Comment on above: Performed By: #### A DIFF, CMP, MDW, ANEU, CBC, GFR ####[address] [address] Eosinophil, Absolute 0.1 10 3/mcL Normal 0.0-0.7 [facility] ([place]) Comment on above: Performed By: #### A DIFF, CMP, MDW, ANEU, CBC, GFR ####[address] [address] Eosinophils/100 WBC (Bld) 2.3 % Normal 0.0-6.0 [facility] ([place]) Comment on above: Performed By: #### A DIFF, CMP, MDW, ANEU, CBC, GFR ####[address] [address] Lymphocyte, Absolute 1.3 10 3/mcL Normal 0.9-4.3 [facility] ([place]) Comment on above: Performed By: #### A DIFF, CMP, MDW, ANEU, CBC, GFR ####[address] [address] Lymphocytes/100 WBC (Bld) 22.6 % Normal 20.0-40.0 [facility] ([place]) Comment on above: Performed By: #### A DIFF, CMP, MDW, ANEU, CBC, GFR ####[address] [address] Monocyte, Absolute 0.5 10 3/mcL Normal 0.1-1.4 [facility] ([place]) Comment on above: Performed By: #### A DIFF, CMP, MDW, ANEU, CBC, GFR ####[address] [address] Monocytes/100 WBC (Bld) 7.9 % Normal 2.0-13.0 A [facility] ([place]) Comment on above: Performed By: #### A DIFF, CMP, MDW, ANEU, CBC, GFR ####[address] [address] Neutrophils/100 WBC (Bld) 66.3 % Normal 50.0-75.0 [facility] ([place]) Comment on above: Performed By: #### A DIFF, CMP, MDW, ANEU, CBC, GFR ####[address] [address] .GFRon 08-31-2023 GFR >60 Normal [facility] ([place]) Comment on above: Result Comment: GFR Population mean for , Non- Americans Ages 20-29 = 116 mL/min/1.73 sq.m. Ages 30-39 = 107 mL/min/1.73 sq.m. Ages 40-49 = 99 mL/min/1.73 sq.m. Ages 50-59 = 93 mL/min/1.73 sq.m. Ages 60-69 = 85 mL/min/1.73 sq.m. Ages 70+ = 75 mL/min/1.73 sq.m. Chronic Kidney Disease: Less than 60 mL/min/1.73 square meters End Stage Renal Disease: Less than 15 mL/min/1.73 square meters Performed By: #### A LORI HOLLINS MDW, ANEU, CBC, GFR ####[place] [address] GFR Non- >60 Normal [facility] ([place]) Comment on above: Result Comment: GFR Population mean for , Non- Americans Ages 20-29 = 116 mL/min/1.73 sq.m. Ages 30-39 = 107 mL/min/1.73 sq.m. Ages 40-49 = 99 mL/min/1.73 sq.m. Ages 50-59 = 93 mL/min/1.73 sq.m. Ages 60-69 = 85 mL/min/1.73 sq.m. Ages 70+ = 75 mL/min/1.73 sq.m. Chronic Kidney Disease: Less than 60 mL/min/1.73 square meters End Stage Renal Disease: Less than 15 mL/min/1.73 square meters Performed By: #### A LORI HOLLINS MDW, ANEU, CBC, GFR ####[place] [address] .MDWon 08-31-2023 Monocyte Distribution Width 15.58 Normal 0.00-20.00 [facility] ([place]) Comment on above: Result Comment: For ED adult patients suspected of sepsis, MDW<=20.0 does not rule out sepsis or risk of sepsis Performed By: #### A DIFF, CMP, MDW, ANEU, CBC, GFR ####[place] [address] .NEUABSon 08-31-2023 Neutrophil, Absolute 3.8 10 3/mcL Normal 2.3-8.1 [facility] ([place]) Comment on above: Performed By: #### A DIFF, CMP, MDW, ANEU, CBC, GFR ####[place] [address] CBCon 08-31-2023 Erythrocyte distribution width (RBC) [Ratio] 14.4 % Normal 11.5-15.5 [facility] ([place]) Comment on above: Performed By: #### A DIFF, CMP, MDW, ANEU, CBC, GFR ####[place] [address] Hematocrit (Bld) [Volume fraction] 42.7 % Normal 34.0-46.0 [facility] ([place]) Comment on above: Performed By: #### A DIFF, CMP, MDW, ANEU, CBC, GFR ####[place] [address] Hgb 14.2 G/dL Normal 12.0-16.0 [facility] ([place]) Comment on above: Performed By: #### A DIFF, CMP, MDW, ANEU, CBC, GFR ####[place] [address] MCH (RBC) [Entitic mass] 30.0 pg Normal 27.0-33.0 [facility] ([place]) Comment on above: Performed By: #### A DIFF, CMP, MDW, ANEU, CBC, GFR ####[place] [address] MCHC 33.3 G/dL Normal 32.0-36.0 [facility] ([place]) Comment on above: Performed By: #### A DIFF, CMP, MDW, ANEU, CBC, GFR ####[place] [address] MCV (RBC) [Entitic vol] 90.2 fL Normal 80.0-99.0 A [facility] ([place]) Comment on above: Performed By: #### A DIFF, CMP, MDW, ANEU, CBC, GFR ####[address] [address] Platelet 295 10 3/mcL Normal 150-450 [facility] ([place]) Comment on above: Performed By: #### A DIFF, CMP, MDW, ANEU, CBC, GFR ####[place] [address] Platelet mean volume (Bld) [Entitic vol] 7.5 fL Normal 6.6-10.5 [facility] ([place]) Comment on above: Performed By: #### A DIFF, CMP, MDW, ANEU, CBC, GFR ####[place] [address] RBC 4.74 10 6/mcL Normal 4.10-5.30 [facility] ([place]) Comment on above: Performed By: #### A DIFF, CMP, MDW, ANEU, CBC, GFR ####[place] [address] WBC 5.7 10 3/mcL Normal 4.5-10.8 [facility] ([place]) Comment on above: Performed By: #### A DIFF, CMP, MDW, ANEU, CBC, GFR ####[place] [address] CMPon 08-31-2023 Albumin Level 3.6 G/dL Normal 3.2-4.8 [facility] ([place]) Comment on above: Performed By: #### A DIFF, CMP, MDW, ANEU, CBC, GFR ####[place] [address] Albumin/Globulin [Mass ratio] 1.1 {ratio} Normal 0.9-1.6 [facility] ([place]) Comment on above: Performed By: #### A DIFF, CMP, MDW, ANEU, CBC, GFR ####[place] [address] ALP [Catalytic activity/Vol] 85 U/L Normal 38-126 [facility] ([place]) Comment on above: Performed By: #### A DIFF, CMP, MDW, ANEU, CBC, GFR ####[address] [address] ALT [Catalytic activity/Vol] 13 U/L Normal 10-49 [facility] ([place]) Comment on above: Performed By: #### A DIFF, CMP, MDW, ANEU, CBC, GFR ####[address] [address] AST [Catalytic activity/Vol] 27 U/L Normal 8-34 [facility] ([place]) Comment on above: Performed By: #### A DIFF, CMP, MDW, ANEU, CBC, GFR ####[address] [address] Bili Total 0.30 mg/dL Normal 0.20-1.20 [facility] ([place]) Comment on above: Result Comment: Use of this assay is not recommended for patients undergoing treatment with eltrombopag due to the potential for falsely elevated results. Performed By: #### A DIFF, CMP, MDW, ANEU, CBC, GFR ####[place] [address] BUN/Creatinine Ratio 9.2 ratio Low 10.0-22.0 [facility] ([place]) Comment on above: Performed By: #### A DIFF, CMP, MDW, ANEU, CBC, GFR ####[address] [address] Calcium [Mass/Vol] 8.7 mg/dL Normal 8.7-10.4 [facility] ([place]) Comment on above: Performed By: #### A DIFF, CMP, MDW, ANEU, CBC, GFR ####[address] [address] Chloride [Moles/Vol] 107 mmol/L Normal 98-110 [facility] ([place]) Comment on above: Performed By: #### A DIFF, CMP, MDW, ANEU, CBC, GFR ####[address] [address] CO2 [Moles/Vol] 26 mmol/L Normal 22-32 [facility] ([place]) Comment on above: Performed By: #### A DIFF, LORI, W, ANEU, CBC, GFR ####[address] [address] Creatinine [Mass/Vol] 0.87 mg/dL Normal 0.50-1.20 [facility] ([place]) Comment on above: Performed By: #### A DIFF, CMP, MDW, ANEU, CBC, GFR ####[address] [address] Electrolyte Balance 2.0 mEq/L Low 4.0-15.0 [facility] ([place]) Comment on above: Performed By: #### A DIFF, LORI, MDW, ANEU, CBC, GFR ####[address] [address] Globulin 3.2 G/dL Normal 1.5-3.8 [facility] ([place]) Comment on above: Performed By: #### A DIFF, LORI, MDW, ANEU, CBC, GFR ####[address] [address] Glucose [Mass/Vol] 90 mg/dL Normal 70-110 [facility] ([place]) Comment on above: Performed By: #### A DIFF, CMP, MDW, ANEU, CBC, GFR ####[address] [address] Potassium [Moles/Vol] 6.2 mmol/L Critically abnormal 3.5-5.0 [facility] ([place]) Comment on above: Result Comment: Spec imen hemolyzed. Results may be falsely elevated. Performed By: #### A DIFF, CMP, MDW, ANEU, CBC, GFR ####[address] [address] Sodium [Moles/Vol] 135 mmol/L Low 136-145 [facility] ([place]) Comment on above: Performed By: #### A DIFF, CMP, MDW, ANEU, CBC, GFR ####[address] [address] Total Protein 6.8 G/dL Normal 5.7-8.2 [facility] ([place]) Comment on above: Result Comment: No te - New Reference Range in effect 20 Performed By: #### A DIFF, CMP, MDW, ANEU, CBC, GFR ####[place] [id number] [place] [address] Urea nitrogen [Mass/Vol] 8.0 mg/dL Normal 8.0-22.0 [facility] ([place]) Comment on above: Result Comment: Spec imen hemolyzed. Results may be falsely elevated. Performed By: #### A DIFF, CMP, MDW, ANEU, CBC, GFR ####[place] [id number] [place] [address] NURSING PROGon 08-31-2023 NURSING PROG HNO ID: [id number] Author: Fannie Kearney RN Service: Nursing Author Type: Registered Nurse Type: Nursing Progress Note Filed: 08/31/2023 10:44 AM Note Text: [facility] ENDOSCOPY POST PROCEDURE FOLLOW UP CALL [phone] (home) Date Phone Call Made: 08/31/2023 Attempt: Attempt #1 Spoke to: Patient SYMPTOM DESCRIPTION Pain or Discomfort rated as: C/O chest pressure-advised to contact MD and/or proceed to ED/call 911 if worsens. Is able to take deep breaths. Denies bloody emesis/ discharge IV No complaints Diet Back to Previous Yes Nausea/Vomiting: None Bleeding: None Bowel Habits: N/A Other Issues: See above Was the nursing staff attentive to your needs? Yes Is there something our department could have done to make your experience more pleasant? No Fannie Kearney RN [facility] Color (U) Yellow Normal [facility] ([place]) Comment on above: Performed By: #### U A ####[facility] [place] [address] Glucose (U) [Mass/Vol] Negative Normal Negative [facility] ([place]) Comment on above: Performed By: #### U A ####[facility] [place] [address] Ketones Ql (U) Trace Normal Neg-Trace [facility] ([place]) Comment on above: Performed By: #### U A ####[place] [address] UA Appear Clear Normal Clear [facility] ([place]) Comment on above: Performed By: #### U A ####[place] [address] UA Blood Negative Normal Neg-Trace [facility] ([place]) Comment on above: Performed By: #### U A ####[place] [address] UA Leuk Est Negative Normal Negative [facility] ([place]) Comment on above: Performed By: #### U A ####[place] [address] UA Nitrite Negative Normal Negative [facility] ([place]) Comment on above: Performed By: #### U A ####[place] [address] UA pH 6.5 Normal 5.0 - 8.0 [facility] ([place]) Comment on above: Performed By: #### U A ####[place] [address] UA Protein Negative Normal Negative [facility] ([place]) Comment on above: Performed By: #### U A ####[place] [address] UA Spec Grav 1.025 Normal 1.006-1.029 [facility] ([place]) Comment on above: Performed By: #### U A ####[place] [address] UA Specimen Type Clean Catch Normal [facility] ([place]) Comment on above: Performed By: #### U A ####[place] [address] UA Urobilinogen 1.0 E.U./dL Normal 0.2-1.0 [facility] ([place]) Comment on above: Performed By: #### U A ####[place] [address] Urobilinogen (U) [Mass/Vol] Negative Normal Neg-Trace [facility] ([place]) Comment on above: Performed By: #### U A ####[facility] [place] [address] XR CHEST 1 VIEWon 08-31-2023 XR CHEST 1 VIEW ORIGINAL EXAMINATION: ONE XRAY VIEW OF THE CHEST08/31/2023 4:03 pm CHEST ONE VIEW AP/PA COMPARISON: None available time of interpretation. HISTORY: ORDERING SYSTEM PROVIDED HISTORY: Reason for Exam: cough FINDINGS: Heart size and vascularity are within normal limits. The lungs are clear of focal consolidation. No effusion, pneumothorax, or acute osseous abnormality. IMPRESSION: No radiographic evidence of acute cardiopulmonary process. Interpreted by: Claire Nicole MD Preliminary Report By: Claire Nicole MD Electronically signed By Claire Nicole MD Dictated Date: 08/31/2023 4:11:08 PM Prelim Date: 08/31/2023 4:11:25 PM Sign Date: 08/31/2023 4:11:25 PM Ordering Provider: MALENA Reddy [facility] ([facility] ANES POSTPROC EVALon 023 ANES POSTPROC EVAL HNO ID: [id number] Author: Dorian Franklin DO Service: Anesthesiology Author Type: Anesthesiologist Type: Anesthesia Postprocedure Evaluation Filed: 08/30/2023 4:32 PM Note Text: POST ANESTHESIA EVALUATION NOTE : 1990 Procedure Summary Date: 08/30/23 Room / Location: [facility] Anesthesia Start: 1433 Anesthesia Stop: 1506 Procedure: EGD - THERAPEUTIC, EUS, OR TUBE INTERVENTIONS Diagnosis: Pharyngoesophageal dysphagia (Dysphagia) Scheduled Providers: Harman Oliver MD Responsible Provider: Dorian Franklin DO Anesthesia Type: MAC ASA Status: 2 Anesthesia Type: MAC Last Vitals Vitals Value Taken Time BP 146/94 08/30/23 1542 Temp 36.7 ?C (98.1 ?F) 08/30/23 1506 HR SpO2 83 08/30/23 1545 Resp 34 08/30/23 1545 SpO2 99 % 08/30/23 1545 Post Anesthesia Patient Status Patient Evaluation: bedside. Neurological Status: aware and responsive. Pulmonary Status: breathing comfortably on room air Airway Control: returned to baseline unsupported. Cardiovascular Status: stable. Pain Management: clinically adequate Postoperative Hydration: acceptable. Intraoperative Events: no significant anesthesia events Post Operative Nausea/Vomiting Status: no significant post operative nausea or vomiting Recommendation: continue current plan of care. Anesthesia Observations No Documentation SIGNATURE: Dorian Franklin DO PATIENT NAME: Becki Jackson DATE: August 30, 2023 TIME: 4:32 PM CSN: [id number] [facility] ANES PRE-OPon 08-30-2023 ANES PRE-OP HNO ID: [id number] Author: Dorian Franklin DO Service: Anesthesiology Author Type: Anesthesiologist Type: Anesthesia Preprocedure Evaluation Filed: 08/30/2023 12:57 PM Note Text: ANESTHESIOLOGY DAY OF SURGERY NOTE : 1990 Procedure Information Date/Time: 08/30/23 1430 Scheduled providers: Harman Oliver MD Procedure: EGD - THERAPEUTIC, EUS, OR TUBE INTERVENTIONS Location: [facility] Estimated body mass index is 36.73 kg/m? as calculated from the following: Height as of 05/24/23: 165.1 cm (5' 5). Weight as of 05/24/23: 100.1 kg (220 lb 11.2 oz). Most recent hematocrit and potassium results: Hematocrit 41.2 03/16/2017 Relevant Problems NEURO-PSYCH (+) History of depression I - PHYSICAL EVALUATION AIRWAY Patient intubated: No. Tracheostomy tube not present Mallampati: I. TM distance: >3 FB. Neck ROM: full ROM without neurological symptoms. Mouth opening: adequate. Short neck: no. Thick neck: no DENTAL Dental findings: teeth intact. Additional exam findings: no II - ANESTHESIA PLAN ASA Score: 2 Anesthetic Plan: MAC NPO Status: adequate Beta Viktoria Monitoring Plan Monitoring plan: standard ASA. Post Procedure Analgesic Plan Postoperative analgesic plan: parenteral or oral opioids. Informed Consent Anesthetic risks, benefits, alternatives, personnel and consent discussed: yes. Patient / Responsible Democrat agrees to proceed: yes Patient / Surrogate agrees to blood products: blood products not planned Significant changes in the patient condition since the History and Physical, not otherwise documented in primary service progress note: no. Potential Anesthesia issues that may suggest increased risk of complications or contraindication to planned procedure: none. No vitals data found for the desired time range. Outpatient Medications as of 08/30/2023 Medication Sig - busPIRone (BUSPAR) 5 mg tablet Take 1 tablet by mouth three times a day. - nortriptyline (PAMELOR) 50 mg capsule Take 50 mg by mouth daily at bedtime. (Patient not taking: Reported on 05/24/2023) - gabapentin (NEURONTIN) 300 mg capsule Take 300 mg by mouth three times daily. (Patient not taking: Reported on 05/24/2023) - prucalopride (MOTEGRITY) 1 mg tab tablet Take 1 tablet (1 mg) by mouth once daily. - baclofen 10 mg tablet Take 1 tablet by mouth twice daily. (Patient not taking: Reported on 05/24/2023) - gabapentin (NEURONTIN) 100 mg capsule Take 200 mg by mouth daily at bedtime. (Patient not taking: Reported on 05/24/2023) - clonazePAM (KLONOPIN) 0.5 mg tablet - folic acid 400 mcg tablet Take 400 mcg by mouth once daily. - QUEtiapine (SEROQUEL) 300 mg tablet Take 300 mg by mouth daily at bedtime. - pantoprazole DR (PROTONIX) 40 mg tablet Take 40 mg by mouth once daily. (Patient not taking: Reported on 05/24/2023) - ondansetron orally disintegrating (ZOFRAN ODT) 4 mg disintegrating tablet 0 Refill(s) - albuterol HFA (PROAIR HFA) 90 mcg/actuation inhaler Inhale 2 Puffs as instructed every 4 hours as needed for Wheezing/Shortness of Breath. No current facility-administered medications on file as of 08/30/2023. I have interviewed and examined the patient. I have reviewed the medical record and/or the pre-anesthesia evaluation, pertinent labs, and test results. This contains updated information obtained within 48 hours of Surgery/Procedure. SIGNATURE: Dorian Franklin DO PATIENT NAME: Becki Jackson DATE: August 30, 2023 TIME: 12:57 PM CSN: [id number] [facility] EGD - THERAPEUTIC, EUS, OR T UBE INTERVENTIONSon 08-30-2023 [facility] HISTORY PHYSICALon HISTORY PHYSICAL HNO ID: [id number] Author: Kayy Bowden PA Service: General Surgery Author Type: Physician Linux Unix Engineer Type: HANDP Filed: 08/30/2023 1:06 PM Note Text: HISTORY AND PHYSICAL PATIENT NAME: Becki Jackson SERVICE DATE: 08/30/2023 SERVICE: Harman Oliver MD PRIMARY CARE PHYSICIAN: WENDIE Rice Subjective HPI: 33 year old female with medical refractory gastroparesis. She presents for EGD She currently denies any chest pain, palpitations, SOB, headache, dizziness, lightheadedness, change in vision or hearing, numbness or tingling in the hands or feet, N/V/C/D, dysuria or hematuria, seizures or syncope. 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 jeremy cyst upper mid back REMOVAL GALLBLADDER SALPINGECTOMY Bilateral 06/24/2017 B/L Laprascopic Salpingectomy TONSILLECTOMY PRIMARY/SECONDARY Tonsillectomy AND ADNOIDS FAMILY HISTORY Problem Relation Age of Onset Arthritis Mother Heart Mother Thyroid Mother Heart Brother Heart Maternal Uncle Prostate Cancer Maternal Grandfather Emphysema Maternal Grandfather Heart Maternal Grandfather Cancer Paternal Grandfather LUNG AND PANCREATICCANCER Emphysema Paternal Grandfather Anesthesia Problems No Family History Blood Clots No Family History Clotting Disorder No Family History Social History Tobacco Use Smoking status: Former Years: 4 Types: Cigarettes Quit date: 03/08/2013 Years since quittin.4 Smokeless tobacco: Never Substance Use Topics Alcohol use: No Drug use: No OB History T4 L4 SAB0 IAB0 Ectopic0 Multiple0 Live Births4 MEDICATIONS: Prior to Admission medications as of 07/01/23 0846 Medication Sig Last Dose Taking busPIRone (BUSPAR) 5 mg tablet Take 1 tablet by mouth three times a day. nortriptyline (PAMELOR) 50 mg capsule Take 50 mg by mouth daily at bedtime. Patient not taking: Reported on 05/24/2023 gabapentin (NEURONTIN) 300 mg capsule Take 300 mg by mouth three times daily. Patient not taking: Reported on 05/24/2023 prucalopride (MOTEGRITY) 1 mg tab tablet Take 1 tablet (1 mg) by mouth once daily. baclofen 10 mg tablet Take 1 tablet by mouth twice daily. Patient not taking: Reported on 05/24/2023 gabapentin (NEURONTIN) 100 mg capsule Take 200 mg by mouth daily at bedtime. Patient not taking: Reported on 05/24/2023 clonazePAM (KLONOPIN) 0.5 mg tablet folic acid 400 mcg tablet Take 400 mcg by mouth once daily. QUEtiapine (SEROQUEL) 300 mg tablet Take 300 mg by mouth daily at bedtime. pantoprazole DR (PROTONIX) 40 mg tablet Take 40 mg by mouth once daily. Patient not taking: Reported on 05/24/2023 ondansetron orally disintegrating (ZOFRAN ODT) 4 mg disintegrating tablet 0 Refill(s) albuterol HFA (PROAIR HFA) 90 mcg/actuation inhaler Inhale 2 Puffs as instructed every 4 hours as needed for Wheezing/Shortness of Breath. No medication comments found. CURRENT ALLERGIES: ALLERGIES Allergen Reactions Iodinated Contrast * Vomiting Penicillins Hives Sulfa (Sulfonamide * Hives VITALS: Last BP 05/24/23 : 133/73 Last Temp 05/24/23 : 36.7 ?C (98 ?F) (Temporal) Last Pulse 05/24/23 : (!) 58 Last Resp Rate 02/03/23 : (!) 40 Last SpO2 05/24/23 : 97% Last Ht 05/24/23 : 165.1 cm (5' 5) Last Wt 05/24/23 : 100.1 kg (220 lb 11.2 oz) LMP: Last LMP Date: LMP: 05/24/2023 04/24/2023 REVIEW OF SYSTEMS: PAIN ASSESSMENT: Negative for pain, history of chronic pain, or current treatment for a chronic pain condition. General: No weight loss, malaise or fevers. HEENT: Negative for frequent or significant headaches, No changes in hearing or vision, and No nose bleeds or other nasal problems Neck: Negative for lumps, goiter, pain and significant neck swelling, No difficulty chewing or swallowing Respiratory: Negative for cough, wheezing or shortness of breath. Cardiovascular: Negative for chest pain, leg swelling or palpitations. GI: Negative for abdominal discomfort, blood in stools or black stools or change in bowel habits : No history of dysuria, frequency or incontinence SOCK DRIER: Negative for abnormal vaginal bleeding, abnormal vaginal discharge Musculoskeletal Negative for joint pain or swelling, back pain or muscle pain. Skin Negative for lesions, rash, and itching. Neuro: No history of headaches, syncope, paralysis, seizures or tremors Objective PHYSICAL EXAM: Head AND Neck: normal, no jugular venous extension, no (more content not included)... Normal [facility] SURGICAL PATHOLOGYon 023 CASE REPORT [facility] Comment on above: Order Comment: Speci men Type: TISSUE SPECIMENOrdering Facility: [facility] Address: [address] [place] [address] Result Comment: Surg ica Pathology Report Case: [id number] Authorizing Provider: Harman Oliver MD Collected: 08/30/2023 02:57 PM [facility]ing [facility] Received: 08/31/2023 08:54 AM Digestive [facility] Pathologist: Maggie Cadena MD Specimens: A) - STOMACH BIOPSY B) - ESOPHAGUS LOWER BIOPSY, distal, C) - ESOPHAGUS PROXIMAL BIOPSY Performed By: #### S ####[facility] LABCL[facility] [id number] [address] LABORATORYCLIA [id number] [place] [address] [place] CLINICAL HISTORY [facility] Comment on above: Order Comment: Speci men Type: TISSUE SPECIMENOrdering Facility: [facility] Address: [address] [place] [address] Result Comment: A) R /O H. PYLORI B-C) R/O EOE Performed By: #### S ####[facility] [id number] [address] LABORATORYCLIA [id number] [place] [address] [place] FINAL DIAGNOSIS [facility] Comment on above: Order Comment: Speci men Type: TISSUE SPECIMENOrdering Facility: [facility] Address: [address] [place] [address] Result Comment: A. S tomach, biopsy: - Mild chronic inactive gastritis. - No morphological evidence of Helicobacter pylori organisms. B. Esophagus, lower, biopsy: - Squamous epithelium with no significant diagnostic alteration. C. Esophagus, proximal, biopsy: - Squamous epithelium with no significant diagnostic alteration. Performed By: #### S ####[facility] LABCL[facility] [id number] [address] LABORATORYCLIA [id number] [address] [place] FINAL PERFORMING LAB [facility] Comment on above: Order Comment: Speci men Type: TISSUE SPECIMENOrdering Facility: [facility] Address: [address] [place] [address] Result Comment: Diag nostic interpretation performed at [facility], [address] [id number] CLIA# [id number] Manager Cash: Michael Karimi M.D. Performed By: #### S ####[facility] LABCL[facility] [id number] [address] LABORATORYCLIA [id number] [address] [place] GROSS DESCRIPTION Normal [facility] Comment on above: Order Comment: Speci men Type: TISSUE SPECIMENOrdering Facility: [facility] Address: [address] [place] [address] Result Comment: A. S TOMACH BIOPSY Received in formalin are two pieces of sanchez, soft tissue aggregating to 0.6 x 0.5 x 0.1 cm. Totally submitted in one cassette. B. ESOPHAGUS LOWER BIOPSY Received in formalin are two pieces of sanchez, soft tissue aggregating to 0.5 x 0.5 x 0.2 cm. Totally submitted in one cassette. C. ESOPHAGUS PROXIMAL BIOPSY Received in formalin are two pieces of sanchez, soft tissue aggregating to 0.6 x 0.6 x 0.1 cm. Totally submitted in one cassette. CL August 31, 2023 1:11 PM Gross examination performed at [facility], [address] [place] [address] Performed By: #### S ####[facility] LABCLIA [id number] [address] [id number] [address] [facility] LABORATORYCLIA [id number] [place] [id number] [facility] Upper GI endoscopyon 023 Upper GI endoscopy [facility] Gastrointestinal Endoscopy Patient Name: Becki Jackson Procedure Date: 08/30/2023 2:23 PM Date of : 1990 Admit Type: Outpatient Age: 33 Room: [place] [address] Gender: Female Note Status: Finalized Attending MD: Harman Oliver MD Procedure: Upper GI endoscopy Indications: Dysphagia Providers: Harman Oliver MD Patient Profile: This is a 33 year old female. Refer to note in patient chart for documentation of history and physical. Referring Physician: Shaina Bolton (Referring MD) Medicines: Monitored Anesthesia Care Complications: No immediate complications. Requesting Provider: Procedure: Pre-Anesthesia Assessment: - Prior to the procedure, a History and Physical was performed, and patient medications and allergies were reviewed. The patient's tolerance of previous anesthesia was also reviewed. The risks and benefits of the procedure and the sedation options and risks were discussed with the patient. All questions were answered, and informed consent was obtained. Prior Anticoagulants: The patient has taken no anticoagulant or antiplatelet agents. ASA Grade Assessment: II - A patient with mild systemic disease. After reviewing the risks and benefits, the patient was deemed in satisfactory condition to undergo the procedure. After obtaining informed consent, the endoscope was passed under direct vision. Throughout the procedure, the patient's blood pressure, pulse, and oxygen saturations were monitored continuously. The Endoscope was introduced through the mouth, and advanced to the second part of duodenum. The upper GI endoscopy was accomplished without difficulty. The patient tolerated the procedure well. Moderate Sedation: MAC anesthesia was administered by the anesthesia team. Total Procedure Duration: 0 hours 5 minutes 24 seconds Findings: The Z-line was regular and was found 40 cm from the incisors. The examined esophagus was normal. No stenosis or resistance to endoscope passage appreciated. Biopsies were obtained from the proximal and distal esophagus with cold forceps for histology of suspected eosinophilic esophagitis. Patchy mildly erythematous mucosa was found in the gastric antrum. Biopsies were taken with a cold forceps for Helicobacter pylori testing. No resistance to endoscope passage through the pylorus. The examined duodenum was normal. Impression: - Z-line regular, 40 cm from the incisors. - Normal esophagus. Biopsied. - Erythematous mucosa in the antrum. Biopsied. - Normal examined duodenum. Recommendation: - Discharge patient to home. - Resume previous diet. - Continue present medications. - Await pathology results. - Return to referring physician. Procedure Code(s): --- Professional --- 17617, Esophagogastroduodeno scopy, flexible, transoral; with biopsy, single or multiple Diagnosis Code(s): --- Professional --- K31.89, Other diseases of stomach and duodenum R13.10, Dysphagia, unspecified CPT copyright 2020 [employer]. All rights reserved. The codes documented in this report are preliminary and upon facilities manager review may be revised to meet current compliance requirements. Attending Participation: I personally performed the entire procedure. Scope In: 2:54:29 PM Scope Out: 2:59:53 PM MD Harman Arvizu MD 08/30/2023 3:03:30 PM This report has been signed electronically by Harman Oliver MD Number of Addenda: 0 Note Initiated On: 08/30/2023 2:23 PM Estimated Blood Loss: Estimated blood loss was minimal. Normal [facility] .Auto Diffon 08-17-2023 Basophil, Absolute 0.0 10 3/mcL Normal 0.0-0.3 [facility] ([place]) Comment on above: Performed By: #### C SANDRO LINARES, LIP, GFR, CBC, ANEU, ADIFF #### [facility] [address] [place] [address] Basophils/100 WBC (Bld) 0.7 % Normal 0.0-2.5 A [facility] ([place]) Comment on above: Performed By: #### C MP, MDW, LIP, GFR, CBC, ANEU, ADIFF #### [address] [address] Eosinophil, Absolute 0.1 10 3/mcL Normal 0.0-0.7 [facility] ([place]) Comment on above: Performed By: #### C VIJAY, W, LIP, GFR, CBC, ANEU, ADIFF #### [address] [address] Eosinophils/100 WBC (Bld) 2.0 % Normal 0.0-6.0 [facility] ([place]) Comment on above: Performed By: #### C VIJAY, W, LIP, GFR, CBC, ANEU, ADIFF #### [address] [address] Lymphocyte, Absolute 1.2 10 3/mcL Normal 0.9-4.3 [facility] ([place]) Comment on above: Performed By: #### C VIJAY, SANDRO, LIP, GFR, CBC, ANEU, ADIFF #### [address] [address] Lymphocytes/100 WBC (Bld) 20.7 % Normal 20.0-40.0 [facility] ([place]) Comment on above: Performed By: #### C VIJAY, W, LIP, GFR, CBC, ANEU, ADIFF #### [address] [address] Monocyte, Absolute 0.6 10 3/mcL Normal 0.1-1.4 [facility] ([place]) Comment on above: Performed By: #### C SANDRO LINARES, LIP, GFR, CBC, ANEU, ADIFF #### [address] [address] Monocytes/100 WBC (Bld) 10.8 % Normal 2.0-13.0 [facility] ([place]) Comment on above: Performed By: #### C VIJAY, W, LIP, GFR, CBC, ANEU, ADIFF #### [address] [address] Neutrophils/100 WBC (Bld) 65.8 % Normal 50.0-75.0 [facility] ([place]) Comment on above: Performed By: #### C SANDRO LINARES, FOZIA, GFR, CBC, ANEU, ADIFF #### [address] [address] .GFRon 08-17-2023 GFR >60 Normal [facility] ([place]) Comment on above: Result Comment: GFR Population mean for , Non- Americans Ages 20-29 = 116 mL/min/1.73 sq.m. Ages 30-39 = 107 mL/min/1.73 sq.m. Ages 40-49 = 99 mL/min/1.73 sq.m. Ages 50-59 = 93 mL/min/1.73 sq.m. Ages 60-69 = 85 mL/min/1.73 sq.m. Ages 70+ = 75 mL/min/1.73 sq.m. Chronic Kidney Disease: Less than 60 mL/min/1.73 square meters End Stage Renal Disease: Less than 15 mL/min/1.73 square meters Performed By: #### C SANDRO LINARES, FOZIA, GFR, CBC, ANEU, ADIFF #### [address] [address] GFR Non- >60 Normal [facility] ([place]) Comment on above: Result Comment: GFR Population mean for , Non- Americans Ages 20-29 = 116 mL/min/1.73 sq.m. Ages 30-39 = 107 mL/min/1.73 sq.m. Ages 40-49 = 99 mL/min/1.73 sq.m. Ages 50-59 = 93 mL/min/1.73 sq.m. Ages 60-69 = 85 mL/min/1.73 sq.m. Ages 70+ = 75 mL/min/1.73 sq.m. Chronic Kidney Disease: Less than 60 mL/min/1.73 square meters End Stage Renal Disease: Less than 15 mL/min/1.73 square meters Performed By: #### C SANDRO LINARES, FOZIA, GFR, CBC, ANEU, ADIFF #### [address] [address] .MDWon 08-17-2023 Monocyte Distribution Width 18.50 Normal 0.00-20.00 [facility] ([place]) Comment on above: Result Comment: For ED adult patients suspected of sepsis, MDW<=20.0 does not rule out sepsis or risk of sepsis Performed By: #### C SANDRO LINARES, FOZIA, GFR, CBC, ANEU, ADIFF #### [address] [address] .NEUABSon 08-17-2023 Neutrophil, Absolute 3.8 10 3/mcL Normal 2.3-8.1 [facility] ([place]) Comment on above: Performed By: #### C SANDRO LINARES, FOZIA, GFR, CBC, ANEU, ADIFF #### [place] [address] CBCon 08-17-2023 Erythrocyte distribution width (RBC) [Ratio] 14.3 % Normal 11.5-15.5 [facility] ([place]) Comment on above: Performed By: #### C SANDRO LINARES, FOZIA, GFR, CBC, ANEU, ADIFF #### [place] [address] Hematocrit (Bld) [Volume fraction] 42.9 % Normal 34.0-46.0 [facility] ([place]) Comment on above: Performed By: #### C SANDRO LINARES, FOZIA, GFR, CBC, ANEU, ADIFF #### [place] [address] Hgb 14.5 G/dL Normal 12.0-16.0 [facility] ([place] Comment on above: Performed By: #### C SANDRO LINARES, FOZIA, GFR, CBC, ANEU, ADIFF #### [place] [address] MCH (RBC) [Entitic mass] 30.1 pg Normal 27.0-33.0 [facility] ([place] Comment on above: Performed By: #### C SANDRO LINARES, FOZIA, GFR, CBC, ANEU, ADIFF #### [place] [address] MCHC 33.8 G/dL Normal 32.0-36.0 [facility] ([place] Comment on above: Performed By: #### C SANDRO LINARES, LIP, GFR, CBC, ANEU, ADIFF #### [place] [id number] MCV (RBC) [Entitic vol] 89.1 fL Normal 80.0-99.0 A [facility] ([place]) Comment on above: Performed By: #### C SANDRO LINARES, FOZIA, GFR, CBC, ANEU, ADIFF #### [place] [id number] Platelet 300 10 3/mcL Normal 150-450 [facility] ([place]) Comment on above: Performed By: #### C SANDRO LINARES, FOZIA, GFR, CBC, ANEU, ADIFF #### [place] [id number] Platelet mean volume (Bld) [Entitic vol] 7.3 fL Normal 6.6-10.5 [facility] ([place] Comment on above: Performed By: #### C SANDRO LINARES, FOZIA, GFR, CBC, ANEU, ADIFF #### [place] [id number] RBC 4.81 10 6/mcL Normal 4.10-5.30 [facility] ([place]) Comment on above: Performed By: #### C SANDRO LINARES, FOZIA, GFR, CBC, ANEU, ADIFF #### [place] [id number] WBC 5.8 10 3/mcL Normal 4.5-10.8 [facility] ([place] Comment on above: Performed By: #### C SANDRO LINARES, FOZIA, GFR, CBC, ANEU, ADIFF #### [address] [address] CMPon 08-17-2023 Albumin Level 3.5 G/dL Normal 3.2-4.8 [facility] ([place] Comment on above: Performed By: #### C SANDRO LINARES, FOZIA, GFR, CBC, ANEU, ADIFF #### [place] [id number] Albumin/Globulin [Mass ratio] 1.1 {ratio} Normal 0.9-1.6 [facility] ([place] Comment on above: Performed By: #### C VIJAY, W, LIP, GFR, CBC, ANEU, ADIFF #### [address] [address] ALP [Catalytic activity/Vol] 102 U/L Normal 38-126 [facility] ([place]) Comment on above: Performed By: #### C VIJAY, W, LIP, GFR, CBC, ANEU, ADIFF #### [address] [address] ALT [Catalytic activity/Vol] 19 U/L Normal 10-49 [facility] ([place]) Comment on above: Performed By: #### C VIJAY, W, LIP, GFR, CBC, ANEU, ADIFF #### [address] [address] AST [Catalytic activity/Vol] 15 U/L Normal 8-34 [facility] ([place]) Comment on above: Performed By: #### C VIJAY, W, LIP, GFR, CBC, ANEU, ADIFF #### [address] [address] Bili Total 0.40 mg/dL Normal 0.20-1.20 [facility] ([place]) Comment on above: Result Comment: Use of this assay is not recommended for patients undergoing treatment with eltrombopag due to the potential for falsely elevated results. Performed By: #### C MD VIJAYW, LIP, GFR, CBC, ANEU, ADIFF #### [place] [id number] BUN/Creatinine Ratio 16.4 ratio Normal 10.0-22.0 [facility] ([place]) Comment on above: Performed By: #### C SANDRO LINARES, LIP, GFR, CBC, ANEU, ADIFF #### [address] [address] Calcium [Mass/Vol] 9.0 mg/dL Normal 8.7-10.4 [facility] ([place]) Comment on above: Performed By: #### C VIJAY, W, LIP, GFR, CBC, ANEU, ADIFF #### [address] [address] Chloride [Moles/Vol] 106 mmol/L Normal 98-110 [facility] ([place]) Comment on above: Performed By: #### C SANDRO LINARES, LIP, GFR, CBC, ANEU, ADIFF #### [place] [id number] CO2 [Moles/Vol] 29 mmol/L Normal 22-32 [facility] ([place]) Comment on above: Performed By: #### C SANDRO LINARES, LIP, GFR, CBC, ANEU, ADIFF #### [place] [address] Creatinine [Mass/Vol] 0.73 mg/dL Normal 0.50-1.20 [facility] ([place]) Comment on above: Performed By: #### C SANDRO LINARES, FOZIA, GFR, CBC, ANEU, ADIFF #### [place] [address] Electrolyte Balance 4.0 mEq/L Normal 4.0-15.0 [facility] 1928[facility] ([place]) Comment on above: Performed By: #### C SANDRO LINARES, FOZIA, GFR, CBC, ANEU, ADIFF #### [place] [address] Globulin 3.2 G/dL Normal 1.5-3.8 [facility] ([place]) Comment on above: Performed By: #### C SANDRO LINARES, FOZIA, GFR, CBC, ANEU, ADIFF #### [place] [address] Glucose [Mass/Vol] 62 mg/dL Low 70-110 [facility] ([place]) Comment on above: Performed By: #### C SANDRO LINARES, LIP, GFR, CBC, ANEU, ADIFF #### [place] [address] Potassium [Moles/Vol] 4.0 mmol/L Normal 3.5-5.0 [facility] ([place]) Comment on above: Result Comment: Spec imen slightly hemolyzed. Performed By: #### C SANDRO LINARES, LIP, GFR, CBC, ANEU, ADIFF #### [place] [address] Sodium [Moles/Vol] 139 mmol/L Normal 136-145 [facility] ([place]) Comment on above: Performed By: #### C SANDRO LINARES, LIP, GFR, CBC, ANEU, ADIFF #### [facility] [address] [place] [address] Total Protein 6.7 G/dL Normal 5.7-8.2 [facility] ([place]) Comment on above: Result Comment: No te - New Reference Range in effect 20 Performed By: #### C SANDRO LINARES, LIP, GFR, CBC, ANEU, ADIFF #### [facility] [address] [place] [address] Urea nitrogen [Mass/Vol] 12.0 mg/dL Normal 8.0-22.0 [facility] ([place] Comment on above: Performed By: #### C SANDRO LINARES, LIP, GFR, CBC, ANEU, ADIFF #### [facility] [address] [place] [address] [address] ABD/PELVIS W/ IV CONTRAST ONLYon 08-17-2023 CT ABD/PELVIS W/ IV CONTRAST ONLY ORIGINAL EXAMINATION: CT OF THE ABDOMEN AND PELVIS WITH CONTRAST 08/17/2023 4:47 pm TECHNIQUE: CT of the abdomen and pelvis was performed with the administration of intravenous contrast. Multiplanar reformatted images are provided for review. Automated exposure control, iterative reconstruction, and/or weight based adjustment of the mA/kV was utilized to reduce the radiation dose to as low as reasonably achievable. COMPARISON: None. HISTORY: ORDERING SYSTEM PROVIDED HISTORY: Reason for Exam: PT STATES ABD PAIN X 5 DAYS abdominal pain cant tolerate po intake gastroparesis FINDINGS: The included thoracic structures are unremarkable. No acute osseous abnormality. Sclerotic focus in the left inferior pubic rami most likely represents a bone island. The liver, spleen, pancreas, and adrenal glands are unremarkable. Status post cholecystectomy. Symmetric nephrograms without evidence of hydronephrosis or nephrolithiasis. There is a mixed density renal lesion in the midpole of the right kidney measuring approximately 1.1 x 1 cm on axial series 2, image 54. There is an intermediate attenuation. The ureters are normal in course and caliber. Nonaneurysmal abdominal aorta. No abdominal lymphadenopathy, free fluid, or intraperitoneal free air identified. The large and small bowel are unremarkable. Normal appendix is identified. Small amount of fluid within the endometrial canal, likely physiologic. Urinary bladder is under stented limiting evaluation. No adnexal lesions. Feminine hygiene product noted in the vagina. IMPRESSION: No acute abnormality is identified. A right renal lesion is indeterminate. A nonemergent CT/MR renal protocol is advised for further characterisation. I have personally reviewed the images of this examination and agree with the resident's findings and interpretation. Interpreted by: Perfecto Garcia Preliminary Report By: Magdy Goldman Electronically signed By Perfecto Garcia Dictated Date: 08/17/2023 4:58:27 PM Prelim Date: 08/17/2023 5:05:19 PM Sign Date: 08/17/2023 5:14:43 PM Ordering Provider: JING Reddy [facility] ([place]) LABORATORYOrdered By: Jenni Amaya on 08-17-2023 Beta HCG ( test) Ql (U) Negative (08/17/23 12:23 PM) [facility] Work Phone: LABORATORYOrdered By: Meg Hidalgo on 08-17-2023 Appearance (U) Clear (08/17/23 12:17 PM) Invalid Interpretation Code Clear AH Auto Urine SS Bilirubin Ql (U) Negative (08/17/23 12:17 PM) Invalid Interpretation Code Neg-Trace AH Auto Urine SS Color (U) Yellow (08/17/23 12:17 PM) Invalid Interpretation Code AH Auto Urine SS Glucose Test strip (U) [Mass/Vol] Negative Invalid Interpretation Code Negative AH Auto Urine SS Hemoglobin Auto test strip (U) [Mass/Vol] Moderate *ABN* (08/17/23 12:17 PM) Invalid Interpretation Code Neg-Trace AH Auto Urine SS Ketones Ql (U) Negative Invalid Interpretation Code Neg-Trace AH Auto Urine SS UA Leuk Est Negative (08/17/23 12:17 PM) Invalid Interpretation Code Negative AH Auto Urine SS UA Mucous 1+ /HPF Invalid Interpretation Code AH Auto Urine SS UA Nitrite Negative (08/17/23 12:17 PM) Invalid Interpretation Code Negative AH Auto Urine SS UA pH 6.5 (08/17/23 12:17 PM) Invalid Interpretation Code 5.0 - 8.0 AH Auto Urine SS UA Protein Negative Invalid Interpretation Code Negative AH Auto Urine SS UA RBC 0-2 /HPF Invalid Interpretation Code 0-2 AH Auto Urine SS UA Spec Grav 1.020 (08/17/23 12:17 PM) Invalid Interpretation Code 1.006-1.029 AH Auto Urine SS UA Specimen Type Clean Catch (08/17/23 12:17 PM) Invalid Interpretation Code AH Auto Urine SS UA Squam Epithelial 0-2 /HPF Invalid Interpretation Code 0-20 AH Auto Urine SS UA Urobilinogen 1.0 E.U./dL Invalid Interpretation Code 0.2-1.0 AH Auto Urine SS WBC LM.HPF (Urine sed) [#/Area] 0-2 /HPF Invalid Interpretation Code 0-5 AH Auto Urine SS LABORATORYOrdered By: SYSTEM SYSTEM on 08-17-2023 Albumin BCP dye [Mass/Vol] 3.5 G/dL Invalid Interpretation Code 3.2 - 4.8 G/dL AH ADM SS Albumin/Globulin [Mass ratio] 1.1 {ratio} Invalid Interpretation Code 0.9 - 1.6 ratio AH ADM SS ALP [Catalytic activity/Vol] 102 U/L Invalid Interpretation Code 38 - 126 U/L AH ADM SS ALT No additional P-5'-P [Catalytic activity/Vol] 19 U/L Invalid Interpretation Code 10 - 49 U/L AH ADM SS AST [Catalytic activity/Vol] 15 U/L Invalid Interpretation Code 8 - 34 U/L AH ADM SS Basophils (Bld) [#/Vol] 0.0 103/mcL Invalid Interpretation Code 0.0 - 0.3 10^3/mcL AH Workflow SS Basophils/100 WBC (Bld) 0.7 % Invalid Interpretation Code 0.0 - 2.5 % AH Workflow SS Bilirubin [Mass/Vol] 0.40 mg/dL Invalid Interpretation Code 0.20 - 1.20 mg/dL AH ADM SS Comment on above: Interpretive Data: U se of this assay is not recommended for patients undergoing treatment with eltrombopag due to the potential for falsely elevated results. Calcium [Mass/Vol] 9.0 mg/dL Invalid Interpretation Code 8.7 - 10.4 mg/dL AH ADM SS Chloride [Moles/Vol] 106 mmol/L Invalid Interpretation Code 98 - 110 mEq/L AH ADM SS CO2 [Moles/Vol] 29 mmol/L Invalid Interpretation Code 22 - 32 mEq/L AH ADM SS Creatinine [Mass/Vol] 0.73 mg/dL Invalid Interpretation Code 0.50 - 1.20 mg/dL AH ADM SS Electrolyte Balance 4.0 mEq/L Invalid Interpretation Code 4.0 - 15.0 mEq/L AH ADM SS Eosinophils (Bld) [#/Vol] 0.1 103/mcL Invalid Interpretation Code 0.0 - 0.7 10^3/mcL AH Workflow SS Eosinophils/100 WBC (Bld) 2.0 % Invalid Interpretation Code 0.0 - 6.0 % AH Workflow SS Erythrocyte distribution width (RBC) [Ratio] 14.3 % Invalid Interpretation Code 11.5 - 15.5 % AH Workflow SS GFR/1.73 sq M.predicted among blacks MDRD (S/P/Bld) [Vol rate/Area] ml/min/1.73sqm Invalid Interpretation Code AH ADM SS Comment on above: Interpretive Data: GFR Population mean for , Non- Americans Ages 20-29 = 116 mL/min/1.73 sq.m. Ages 30-39 = 107 mL/min/1.73 sq.m. Ages 40-49 = 99 mL/min/1.73 sq.m. Ages 50-59 = 93 mL/min/1.73 sq.m. Ages 60-69 = 85 mL/min/1.73 sq.m. Ages 70+ = 75 mL/min/1.73 sq.m. Chronic Kidney Disease: Less than 60 mL/min/1.73 square meters End Stage Renal Disease: Less than 15 mL/min/1.73 square meters GFR/1.73 sq M.predicted among non-blacks MDRD (S/P/Bld) [Vol rate/Area] ml/min/1.73sqm Invalid Interpretation Code ADM SS Comment on above: Interpretive Data: GFR Population mean for , Non- Americans Ages 20-29 = 116 mL/min/1.73 sq.m. Ages 30-39 = 107 mL/min/1.73 sq.m. Ages 40-49 = 99 mL/min/1.73 sq.m. Ages 50-59 = 93 mL/min/1.73 sq.m. Ages 60-69 = 85 mL/min/1.73 sq.m. Ages 70+ = 75 mL/min/1.73 sq.m. Chronic Kidney Disease: Less than 60 mL/min/1.73 square meters End Stage Renal Disease: Less than 15 mL/min/1.73 square meters Globulin 3.2 G/dL Invalid Interpretation Code 1.5 - 3.8 G/dL AH ADM SS Glucose [Mass/Vol] 62 mg/dL Invalid Interpretation Code 70 - 110 mg/dL AH ADM SS Hematocrit (Bld) [Volume fraction] 42.9 % Invalid Interpretation Code 34.0 - 46.0 % AH Workflow SS Hemoglobin (Bld) [Mass/Vol] 14.5 G/dL Invalid Interpretation Code 12.0 - 16.0 G/dL AH Workflow SS Lipase [Catalytic activity/Vol] 33 U/L Invalid Interpretation Code 12 - 53 U/L AH ADM SS Comment on above: Interpretive Data: * *Note - New Reference Range in effect 20 Lymphocytes (Bld) [#/Vol] 1.2 103/mcL Invalid Interpretation Code 0.9 - 4.3 10^3/mcL AH Workflow SS Lymphocytes/100 WBC (Bld) 20.7 % Invalid Interpretation Code 20.0 - 40.0 % AH Workflow SS MCH (RBC) [Entitic mass] 30.1 pg Invalid Interpretation Code 27.0 - 33.0 pg AH Workflow SS MCHC 33.8 G/dL Invalid Interpretation Code 32.0 - 36.0 G/dL AH Workflow SS MCV (RBC) [Entitic vol] 89.1 fL Invalid Interpretation Code 80.0 - 99.0 fL AH Workflow SS Monocyte distribution width Auto (Bld) [Entitic vol] 18.50 1 Invalid Interpretation Code 0.00 - 20.00 AH Workflow SS Comment on above: Result Comment: For ED adult patients suspected of sepsis, MDW<=20.0 does not rule out sepsis or risk of sepsis Monocytes (Bld) [#/Vol] 0.6 103/mcL Invalid Interpretation Code 0.1 - 1.4 10^3/mcL AH Workflow SS Monocytes/100 WBC (Bld) 10.8 % Invalid Interpretation Code 2.0 - 13.0 % AH Workflow SS Neutrophils (Bld) [#/Vol] 3.8 103/mcL Invalid Interpretation Code 2.3 - 8.1 10^3/mcL AH Workflow SS Neutrophils/100 WBC (Bld) 65.8 % Invalid Interpretation Code 50.0 - 75.0 % AH Workflow SS Platelet mean volume (Bld) [Entitic vol] 7.3 fL Invalid Interpretation Code 6.6 - 10.5 fL AH Workflow SS Platelets (Bld) [#/Vol] 300 103/mcL Invalid Interpretation Code 150 - 450 10^3/mcL AH Workflow SS Potassium [Moles/Vol] 4.0 mmol/L Invalid Interpretation Code 3.5 - 5.0 mEq/L AH ADM SS Comment on above: Result Comment: Spec imen slightly hemolyzed. Protein [Mass/Vol] 6.7 G/dL Invalid Interpretation Code 5.7 - 8.2 G/dL AH ADM SS Comment on above: Interpretive Data: * *Note - New Reference Range in effect 20 RBC (Bld) [#/Vol] 4.81 106/mcL Invalid Interpretation Code 4.10 - 5.30 10^6/mcL AH Workflow SS Sodium [Moles/Vol] 139 mmol/L Invalid Interpretation Code 136 - 145 mEq/L AH ADM SS Urea nitrogen [Mass/Vol] 12.0 mg/dL Invalid Interpretation Code 8.0 - 22.0 mg/dL AH ADM SS Urea nitrogen/Creatinine [Mass ratio] 16.4 ratio Invalid Interpretation Code 10.0 - 22.0 ratio AH ADM SS WBC (Bld) [#/Vol] 5.8 103/mcL Invalid Interpretation Code 4.5 - 10.8 10^3/mcL AH Workflow SS LIPon 08-17-2023 Lipase Level 33 U/L Normal 12-53 [facility] ([place]) Comment on above: Result Comment: No te - New Reference Range in effect 20 Performed By: #### C MP, MDW, LIP, GFR, CBC, ANEU, ADIFF #### [facility] [address] [place] [id number] UAon 08-17-2023 Color (U) Yellow Normal [facility] ([place]) Comment on above: Performed By: #### U AMIC UA ####[facility] [place] [address] Glucose (U) [Mass/Vol] Negative Normal Negative [facility] ([place]) Comment on above: Performed By: #### U AMIC, UA ####[place] [address] Ketones Ql (U) Negative Normal Neg-Trace [facility] ([place]) Comment on above: Performed By: #### U AMIC, UA ####[place] [address] UA Appear Clear Normal Clear [facility] ([place]) Comment on above: Performed By: #### U AMIC, UA ####[place] [address] UA Blood Moderate Abnormal Neg-Trace [facility] ([place]) Comment on above: Performed By: #### U AMIC, UA ####[place] [address] UA Leuk Est Negative Normal Negative [facility] ([place]) Comment on above: Performed By: #### U AMIC, UA ####[place] [address] UA Nitrite Negative Normal Negative [facility] ([place] Comment on above: Performed By: #### U AMIC, UA ####[place] [address] UA pH 6.5 Normal 5.0 - 8.0 [facility] ([place]) Comment on above: Performed By: #### U AMIC, UA ####[place] [address] UA Protein Negative Normal Negative [facility] ([place]) Comment on above: Performed By: #### U AMIC, UA ####[place] [address] UA Spec Grav 1.020 Normal 1.006-1.029 [facility] ([place]) Comment on above: Performed By: #### U AMIC, UA ####[place] [address] UA Specimen Type Clean Catch Normal [facility] ([place]) Comment on above: Performed By: #### U AMIC, UA ####[place] [address] UA Urobilinogen 1.0 E.U./dL Normal 0.2-1.0 [facility] ([place]) Comment on above: Performed By: #### U AMIC, UA ####[facility] [place] [id number] Urobilinogen (U) [Mass/Vol] Negative Normal Neg-Trace [facility] ([place]) Comment on above: Performed By: #### U AMIC, UA ####[facility] [place] [id number] UAMICon 08-17-2023 UA Mucous 1+ /hpf Normal [facility] ([place]) Comment on above: Performed By: #### U AMIC, UA ####[facility] [place] [id number] UA RBC 0-2 Normal 0-2 [facility] ([place]) Comment on above: Performed By: #### U AMIC, UA ####[facility] [place] [id number] UA Squam Epithelial 0-2 Normal 0-20 [facility] ([place]) Comment on above: Performed By: #### U AMIC, UA ####[facility] [place] [address] UA WBC 0-2 Normal 0-5 [facility] ([place]) Comment on above: Performed By: #### U AMIC, UA ####[facility] [place] [address] XR ESOPHAGRAM W DOUBLE CONTR [place] 06-03-2023 [facility] XR SPINE THORACIC 2 VIEWSon 04-15-2023 XR SPINE THORACIC 2 VIEWS ORIGINAL EXAMINATION: TWO XRAY VIEWS OF THE THORACIC SPINE04/09/2023 10:28 am COMPARISON: None HISTORY: ORDERING SYSTEM PROVIDED HISTORY: Reason for Exam: thoracic/ scapular pain x months FINDINGS: No significant curvature, significant spondylolisthesis or subluxation. Vertebral body heights are maintained, without compression deformity. Cholecystectomy clips are noted. Intrathoracic structures are normal. There are mild changes of degenerative disc disease with osteophytosis and disc height loss. IMPRESSION: No acute finding. Mild degenerative disc disease. Interpreted by: Rudi Pitt DO Preliminary Report By: Rudi Pitt DO Electronically signed By Rudi Pitt DO Dictated Date: 04/15/2023 1:11:04 PM Prelim Date: 04/15/2023 1:12:27 PM Sign Date: 04/15/2023 1:12:27 PM Ordering Provider: KAYLEY Reddy [facility] ([place]) CNTAPYon 03-15-2023 CNTHERAPY OT/PT/Speech Visit (SPMBSP) BECKI JACKSON ([id number]) 1990 F Date Time Provider Department 03/15/23 11:30 AM [facility]EDRO[facility] Date Time Provider Department [place] 03/15/2023 11:30 AM [id number], LISE [facility] Reason for Visit: Speech Instrumental Swallow Eval [3660] Primary Visit Diagnosis:Pharyngoeso phageal dysphagia [R13.14] Allergies As of Date: 03/15/2023 Noted Allergy Reaction IODINATED CONTRAST MEDIA 01/20/2023 11 - Vomiting PENICILLINS 11/12/2011 4 - Hives SULFA (SULFONAMIDE ANTIBIOTICS) 01/25/2013 4 - Hives Date Reviewed: 02/03/2023 Reviewed by: Jennifer Eason RN - Fully Assessed Prescriptions as of 03/15/2023 - predniSONE (DELTASONE) 20 mg tablet Take 2 tablets (40mg) by mouth 5 hours prior to swallow studies. AND Take 2 tablets (40mg) by mouth 1 hour prior to swallow studies. Confirm timing of administration with radiology. - diphenhydrAMINE (BENADRYL) 25 mg capsule Take 2 capsules (50mg) by mouth 5 hours prior to swallow studies. AND Take 2 capsules (50mg) by mouth 1 hour prior to swallow studies. Confirm timing of administration with radiology. - gabapentin (NEURONTIN) 100 mg capsule Take 200 mg by mouth daily at bedtime. - nortriptyline (PAMELOR) 25 mg capsule - clonazePAM (KLONOPIN) 0.5 mg tablet - folic acid 400 mcg tablet Take 400 mcg by mouth once daily. - QUEtiapine (SEROQUEL) 300 mg tablet Take 300 mg by mouth daily at bedtime. - pantoprazole DR (PROTONIX) 40 mg tablet Take 40 mg by mouth once daily. - ondansetron orally disintegrating (ZOFRAN ODT) 4 mg disintegrating tablet 0 Refill(s) - albuterol HFA (PROAIR HFA) 90 mcg/actuation inhaler Inhale 2 Puffs as instructed every 4 hours as needed for Wheezing/Shortness of Breath. [facility] XR MOD BARIUM SWALLOW W STEVEN De La Rosan 03-15-2023 XR MOD BARIUM SWALLOW W SPEECH * * *Final Report* * * DATE OF EXAM: Mar 15 2023 12:23PM SPX [id number] - XR MOD BARIUM SWALLOW W SPEECH / PROCEDURE REASON: Pharyngoesophageal dysphagia * * * * Physician Interpretation * * * * RESULT: EXAMINATION: XR MOD BARIUM SWALLOW W SPEECH HISTORY: pharyngoesophageal dysphagia Pharyngoesophageal dysphagia . Fluoroscopic Radiation Summary: Plane A, Air Kerma: 46.9 mGy Dose Area Product (DAP): Fluoro time: 2:48 min:sec RESULT: Fluoroscopy was provided for an oropharyngeal phase swallowing examination performed by Speech Pathology. IMPRESSION: Please refer to the report by the Speech Pathologist in [facility] for outpatients or in the inpatient chart. Transcribed Using Voice Recognition Transcribe Date/Time: Mar 15 2023 12:27P Dictated by: RAKESH MORRISSEY MD This examination was interpreted and the report reviewed and electronically signed by: RAKESH MORRISSEY MD on Mar 15 2023 12:27PM EST [id number] [facility] ANES POSTPROC EVALon 023 ANES POSTPROC EVAL HNO ID: [id number] Author: Juan Burrows MD Service: Anesthesiology Author Type: Anesthesiologist Type: Anesthesia Postprocedure Evaluation Filed: 02/03/2023 11:50 AM Note Text: POST ANESTHESIA EVALUATION NOTE : 1990 Procedure Summary Date: 02/03/23 Room / Location: [facility] Anesthesia Start: 744 Anesthesia Stop: 816 Procedure: EGD - THERAPEUTIC, EUS, OR TUBE INTERVENTIONS Diagnosis: Gastroparesis Scheduled Providers: Oz Jones DO Responsible Provider: Juan Burrows MD Anesthesia Type: MAC ASA Status: 2 Anesthesia Type: MAC Last Vitals Vitals Value Taken Time BP 105/64 02/03/23 0846 Temp 36.6 ?C (97.9 ?F) 02/03/23 0816 HR SpO2 89 02/03/23 0846 Resp 34 02/03/23 0827 SpO2 96 % 02/03/23 0846 Vitals shown include unvalidated device data. Post Anesthesia Patient Status Patient Evaluation: PACU. PACU/ICU Patient Condition: stable. Anticipated Disposition: phase 2 then home. Neurological Status: aware and responsive. Pulmonary Status: breathing comfortably on room air Airway Control: returned to baseline unsupported. Cardiovascular Status: stable. Pain Management: clinically adequate Postoperative Hydration: acceptable. Intraoperative Events: no significant anesthesia events Post Operative Nausea/Vomiting Status: no significant post operative nausea or vomiting Recommendation: continue current plan of care and further care per PACU/ICU/floor team. Anesthesia Observations No Documentation SIGNATURE: Juan Burrows MD PATIENT NAME: Becki Jackson DATE: February 03, 2023 TIME: 11:49 AM CSN: [id number] [facility] ANES PRE-OPon 02-03-2023 ANES PRE-OP HNO ID: [id number] Author: Juan Burrows MD Service: Anesthesiology Author Type: Anesthesiologist Type: Anesthesia Preprocedure Evaluation Filed: 02/03/2023 7:25 AM Note Text: ANESTHESIOLOGY DAY OF SURGERY NOTE : 1990 Procedure Information Date/Time: 02/03/2330 Scheduled providers: Oz Jones DO Procedure: EGD - THERAPEUTIC, EUS, OR TUBE INTERVENTIONS Location: [facility] Estimated body mass index is 34.95 kg/m? as calculated from the following: Height as of this encounter: 165.1 cm (5' 5). Weight as of this encounter: 95.3 kg (210 lb). Most recent hematocrit and potassium results: Hematocrit 41.2 03/16/2017 Relevant Problems NEURO-PSYCH (+) History of depression I - PHYSICAL EVALUATION AIRWAY Patient intubated: No. Tracheostomy tube not present Mallampati: I. TM distance: >3 FB. Neck ROM: full ROM without neurological symptoms. Mouth opening: adequate. Short neck: no. Thick neck: no DENTAL Dental findings: teeth intact. Additional exam findings: no II - ANESTHESIA PLAN ASA Score: 2 Anesthetic Plan: MAC NPO Status: adequate Beta Viktoria Monitoring Plan Monitoring plan: standard ASA. Post Procedure Analgesic Plan Postoperative analgesic plan: parenteral or oral opioids. Informed Consent Anesthetic risks, benefits, alternatives, personnel and consent discussed: yes. Patient / Responsible Democrat agrees to proceed: yes Patient / Surrogate agrees to blood products: blood products not planned Significant changes in the patient condition since the History and Physical, not otherwise documented in primary service progress note: no. Potential Anesthesia issues that may suggest increased risk of complications or contraindication to planned procedure: none. Vitals Value Taken Time BP 118/59 02/03/23 0656 Pulse 87 02/03/23 0656 Resp Temp 36.5 ?C (97.7 ?F) 02/03/23 0656 SpO2 99 % 02/03/23 06 Outpatient Medications as of 02/03/2023 Medication Sig - nortriptyline (PAMELOR) 25 mg capsule - clonazePAM (KLONOPIN) 0.5 mg tablet - folic acid 400 mcg tablet Take 400 mcg by mouth once daily. - pantoprazole DR (PROTONIX) 40 mg tablet Take 40 mg by mouth once daily. - ondansetron orally disintegrating (ZOFRAN ODT) 4 mg disintegrating tablet 0 Refill(s) - gabapentin (NEURONTIN) 100 mg capsule Take 200 mg by mouth daily at bedtime. - QUEtiapine (SEROQUEL) 300 mg tablet Take 300 mg by mouth daily at bedtime. - albuterol HFA (PROAIR HFA) 90 mcg/actuation inhaler Inhale 2 Puffs as instructed every 4 hours as needed for Wheezing/Shortness of Breath. Facility-Administered Medications as of 02/03/2023 Medication Dose Route Frequency - lidocaine 10 mg/mL (1 %) 1-2 mg injection (XYLOCAINE) 0.1-0.2 mL INTRADERMAL PRN - lactated ringers iv infusion 30 mL/hr INTRAVENOUS CONTINUOUS I have interviewed and examined the patient. I have reviewed the medical record and/or the pre-anesthesia evaluation, pertinent labs, and test results. This contains updated information obtained within 48 hours of Surgery/Procedure. SIGNATURE: Juan Burrows MD PATIENT NAME: eBcki Jackson DATE: February 03, 2023 TIME: 7:25 AM CSN: [id number] [facility] HISTORY PHYSICALon HISTORY PHYSICAL HNO ID: [id number] Author: Tamara South PA-C Service: Gastroenterology Author Type: Physician Linux Unix Engineer Type: HANDP Filed: 02/03/2023 7:19 AM Note Text: UPDATED HISTORY AND PHYSICAL EXAMINATION PATIENT NAME: Becki Jackson SERVICE DATE: 02/03/2023 SERVICE TIME: 7:17 AM PHYSICAL EXAM MUST BE COMPLETED ON ADMISSION The History and Physical (completed in the past 30 days) has been reviewed and the patient has been examined. The contents accurately reflect the patient's condition with the following additions or revisions since the HANDP was completed. This is a 32 y/o female that presents for EGD. She has been having episodes of abdominal pain. She has a PMH significant for asthma. She complains of abdominal tenderness this morning. No other complaints at this time. Patient denies any changes to health since last examination. Patient DENIES CHEST PAIN, PALPITATIONS, FATIGUE, DIZZINESS Shortness of breath, COUGHING, WHEEZING ABDOMINAL PAIN, N/V/D Medication reconciliation list reviewed in [facility]. Past medical history, past surgical history, social history and family history reviewed and updated in [facility]. ALLERGIES Allergies: Iodinated Contrast * Vomiting Penicillins Hives Sulfa (Sulfonamide * Hives SEE Epic FOR VITALS BP 118/59 Pulse 87 Temp 36.5 ?C (97.7 ?F) (Temporal) Ht 165.1 cm (5' 5) Wt 95.3 kg (210 lb) LMP 01/26/2023 (Approximate) SpO2 99% BMI 34.95 kg/m? Examination indicates no changes. On examination today: Lungs: Clear to auscultation bilaterally. Heart: RRR, Normal S1/S2, No murmurs, rubs, gallops or thrills appreciated. Abdomen: BS+ in all quadrants, abdomen is soft, non tender, and without guarding. Assessment: Encounter for other preprocedural examination Z01.818 Plan: 1.EGD - THERAPEUTIC, EUS, OR TUBE INTERVENTIONS I spent a total of 10 minutes on the date of the service which included preparing to see the patient, [id number] patient care, completing clinical documentation, and obtaining and/or reviewing separately obtained history. This HANDP can be found in the Electronic Medical Record dated 01/20/2023 completed by Rosario Howard PA-C SIGNATURE: Tamara South PA-C DATE: February 03, 2023 TIME: 7:17 AM Normal [facility] Upper GI endoscopyon -- 023 Upper GI endoscopy [facility] Gastrointestinal Endoscopy Patient Name: Becki Jackson Procedure Date: 02/03/2023 7:20 AM Date of : 1990 Admit Type: Outpatient Age: 32 Room: [place] [address] Gender: Female Note Status: Finalized Attending MD: Oz Jones MD Procedure: Upper GI endoscopy Indications: Pharyngeal phase dysphagia, Gastroparesis, For therapy of gastroparesis Providers: Oz Jones MD Patient Profile: Refer to note in patient chart for documentation of history and physical. Patient has symptoms of chronic epigastric abdominal pain, chronic dysphagia and chronic vomiting. Referring Physician: Oz Jones MD (Referring MD) Medicines: Monitored Anesthesia Care Complications: No immediate complications. Estimated blood loss: Minimal. Requesting Provider: Procedure: Pre-Anesthesia Assessment: - Prior to the procedure, a History and Physical was performed, and patient medications and allergies were reviewed. The patient is competent. The risks and benefits of the procedure and the sedation options and risks were discussed with the patient. All questions were answered and informed consent was obtained. Patient identification and proposed procedure were verified by the physician, the nurse and the audience coordinator in the pre-procedure area in the endoscopy suite. Mental Status Examination: alert and oriented. Airway Examination: normal oropharyngeal airway and neck mobility. Respiratory Examination: clear to auscultation. CV Examination: normal. Prophylactic Antibiotics: The patient does not require prophylactic antibiotics. Prior Anticoagulants: The patient has taken no anticoagulant or antiplatelet agents. ASA Grade Assessment: II - A patient with mild systemic disease. After reviewing the risks and benefits, the patient was deemed in satisfactory condition to undergo the procedure. The anesthesia plan was to use monitored anesthesia care (MAC). Immediately prior to administration of medications, the patient was re-assessed for adequacy to receive sedatives. The heart rate, respiratory rate, oxygen saturations, blood pressure, adequacy of pulmonary ventilation, and response to care were monitored throughout the procedure. The physical status of the patient was re-assessed after the procedure. After obtaining informed consent, the endoscope was passed under direct vision. Throughout the procedure, the patient's blood pressure, pulse, and oxygen saturations were monitored continuously. The Endoscope was introduced through the mouth, and advanced to the second part of duodenum. The upper GI endoscopy was accomplished without difficulty. The patient tolerated the procedure well. Moderate Sedation: MAC anesthesia was administered by the anesthesia team. No sedation was administered for this procedure. Total Procedure Duration: 0 hours 14 minutes 10 seconds Findings: The examined portions of the nasopharynx, oropharynx and larynx were normal. The Z-line was regular and was found 38 cm from the incisors. The gastroesophageal flap valve was visualized endoscopically and classified as Hill Grade IV (no fold, wide open lumen, hiatal hernia present). A 2 cm hiatal hernia was present. One extrinsic mild stenosis was found 15 cm from the incisors. The stenosis was traversed. A guidewire was placed and the scope was withdrawn. Dilation was performed with a Savary dilator with no resistance at 54 Fr. The dilation site was examined following endoscope reinsertion and showed complete resolution of luminal narrowing. Suspect gastroparesis due to patient symptoms. A TTS dilator was passed through the scope. Dilation with an 18-19-20 mm pyloric balloon dilator was performed. The dilation site was examined following endoscope reinsertion and showed mild mucosal disruption. Estimated blood loss was minimal. The examined duodenum was normal. Impression: - The examined portions of the nasopharynx, oropharynx and larynx were normal. - Z-line regular, 38 cm from the incisors. - Gastroesophageal flap valve classified as Hill Grade IV (no fold, wide open lumen, hiatal hernia present). - 2 cm hiatal hernia. - Extrinsic narrowing of the esophagus. Dilated to 54Fr minimal resistance - Gastroparesis. Dilated to 20mm with mild mucosal breaks - Normal examined duodenum. - No specimens collected. Recommendation: - Discharge patient to home (ambulatory). - Gastroparesis diet indefinitely. - Continue present medications. - Return to my office as previously scheduled. Procedure Code(s): --- Professional --- 48740, Esophagogastroduodeno scopy, flexible, transoral; with dilation of gastric/duodenal stricture(s) (eg, balloon, bougie) 44999, Esophagogastroduodeno scopy, flexible, transoral; with insertion of guide wire followed by passage of dilator(s) through esophagus over guide wire Diagno (more content not included)... Normal [facility] NURSING PROGon 01-29-2023 NURSING PROG HNO ID: [id number] Author: Claire Jackson RN Service: ? Author Type: Registered Nurse Type: Nursing Progress Note Filed: 01/29/2023 12:56 PM Note Text: [facility] ENDOSCOPY PRE PROCEDURE CALL My. I'm calling from [facility] endoscopy to provide you with the information for your surgery/procedure tomorrow. Spoke to: left and MC If patient needs to reschedule please call: [phone] DD phone number: [phone] Type of instruction given: Verbal by telephone contact. Normal [facility] Absolute lymphocyte countOrd ered By: ED PROVIDER on 01-13-2023 Lymphocytes Auto (Unsp spec) [#/Vol] 1.59 10*3/uL 0.83-4.51 [facility] Basophil percentageOrdered B y: ED PROVIDER on 01-13-2023 Basophil percentage 0-5 SEEN /hpf 0-[address] [facility] Basophils/100 WBC (Bld) 0.6 % 0[facility] Chloride [Moles/Vol] 110 mmol/L 98-[address] [facility] Eosinophils/100 WBC (Bld) 1.9 % 0-5 [facility] Glucose [Mass/Vol] 76 mg/dL 74-[facility]ld) [#/Vol] 4.7 10*3/uL 2.0-7.7 [facility] Neutrophils/100 WBC (Bld) 67.1 % 47-70 [facility] Potassium [Moles/Vol] 3.8 mmol/L 3.5-5.1 [facility] Sodium [Moles/Vol] 142 mmol/L 136-145 [facility] WBC (Bld) [#/Vol] 6.9 10*3/uL 4.4-11.0 [facility] Basophil percentageOrdered B y: Dr. Michael on 01-13-2023 Bilirubin [Mass/Vol] 0.30 mg/dL 0.20-1.00 [facility] Comment on above: For patients on eltr ombopag therapy, use of Dimension [place] TBIL is not recommended. Protein [Mass/Vol] 6.5 g/dL 6.4-8.2 [facility] Beta hCG serum qualOrdered B y: ED PROVIDER on 01-13-2023 Beta HCG ( test) Ql Negative [facility] Bilirubin Test strip Ql (U)O rdered By: ED PROVIDER on 01-13-2023 Bilirubin Ql (U) Negative Negative [facility] Blood erythrocytes count (nu mber/volume)Ordered By: ED PROVIDER on 01-13-2023 RBC (Bld) [#/Vol] 4.50 10*6/uL 4.2-5.4 [facility] Blood hemoglobin measurement (mass/volume)Ordered By: ED PROVIDER on 01-13-2023 Hemoglobin (Bld) [Mass/Vol] 13.6 g/dL 12.0-15.0 [facility] Blood lymphocytes/100 leukoc ytesOrdered By: ED PROVIDER on 01-13-2023 Lymphocytes/100 WBC (Bld) 22.9 % 19-41 [facility] Blood monocytes/100 leukocyt esOrdered By: ED PROVIDER on 01-13-2023 Monocytes/100 WBC (Bld) 6.9 % 0-[address] [facility] Blood platelet mean volumeOr dered By: ED PROVIDER on 01-13-2023 Platelet mean volume (Bld) [Entitic vol] 9.1 fL 6.2-12.0 [facility] Determination of erythrocyte mean corpuscular volume (MCV)Ordered By: ED PROVIDER on 01-13-2023 MCV (RBC) [Entitic vol] 91.6 fL 81-[address] [facility] Direct bilirubinOrdered By: Dr. Michael on 01-13-2023 Bilirubin.direct [Mass/Vol] 0.06 mg/dL 0.00-0.30 [facility] Hematocrit Auto (Bld) [Volum e fraction]Ordered By: ED PROVIDER on 01-13-2023 Hematocrit (Bld) [Volume fraction] 41.2 % 37-47 [facility] Ketones Test strip Ql (U)Ord ered By: ED PROVIDER on 01-13-2023 Ketones Ql (U) Negative Negative [facility] Laboratory - Chemistry and C hemistry - challengeOrdered By: Dr. Michael on 01-13-2023 ALP [Catalytic activity/Vol] 104 U/L 45-117 [facility] ALT [Catalytic activity/Vol] 33 U/L 13-56 [facility] Globulin (S) [Mass/Vol] 3.5 g/dL 2.2-4.[address] [facility] Lipase [Catalytic activity/Vol] 127 U/L 73-393 [facility] Laboratory - Chemistry and C hemistry - challengeOrdered By: ED PROVIDER on 01-13-2023 CO2 [Moles/Vol] 26.0 mmol/L 21.0-32.0 [facility] Urea nitrogen/Creatinine [Mass ratio] 19.9 mg/mg 10-20 [facility] Laboratory - Hematology and Cell countsOrdered By: ED PROVIDER on 01-13-2023 Erythrocyte distribution width (RBC) [Entitic vol] 43.0 fL 35.1-43.9 [facility] Erythrocyte distribution width (RBC) [Ratio] 12.9 % 11.6-14.6 [facility] Immature granulocytes/100 WBC (Bld) 0.600 % 0.0-0.9 [facility] Comment on above: IG% - Immature Granu locytes (promyelocytes, myelocytes and metamyelocytes) > 1% indicates that a LEFT SHIFT is Present. MCH (RBC) [Entitic mass] 30.2 pg 27.0-32.0 [facility] Nucleated RBC/100 WBC (Bld) [Ratio] 0 % 0-5 [facility] MCHC Auto (RBC) [Mass/Vol]Or dered By: ED PROVIDER on 01-13-2023 MCHC (RBC) [Mass/Vol] 33.0 g/dL 32-36 [facility] Mucus LM Ql (Urine sed)Order ed By: ED PROVIDER on 01-13-2023 Mucus Ql (Urine sed) 0 SEEN /hpf [facility] Nitrite Test strip Ql (U)Ord ered By: ED PROVIDER on 01-13-2023 Nitrite Ql (U) Negative Negative [facility] No Panel InformationOrdered By: ED PROVIDER on 01-13-2023 Estimated Creatinine Clearance Calc 104.78 ml/min [facility] Estimated GFR (MDRD) Amer 124 mL/min >60 [facility] Comment on above: GFR Calc Estimated GFR (MDRD) Non-Af Amer 102 mL/min >60 [facility] Comment on above: Non- GFR Calc Platelets bldOrdered By: ED PROVIDER on 01-13-2023 Platelets (Bld) [#/Vol] 323 10*3/uL 150-450 [facility] Protein Test strip Ql (U)Ord ered By: ED PROVIDER on 01-13-2023 Protein Ql (U) Negative Negative [facility] Serum or plasma albumin yolie urement (mass/volume)Ordered By: Dr. Michael on 01-13-2023 Albumin [Mass/Vol] 3.0 g/dL 3.2-5.0 [facility] Serum or plasma calcium yolie urement (mass/volume)Ordered By: ED PROVIDER on 01-13-2023 Calcium [Mass/Vol] 9.0 mg/dL 8.5-10.1 [facility] Serum or plasma creatinine m easurement (mass/volume)Ordered By: ED PROVIDER on 01-13-2023 Creatinine [Mass/Vol] 0.70 mg/dL 0.55-1.02 [facility] Comment on above: The validity of the calculated GFR & GFRAA in patients over 70 years has not been determined. Clinical correlation is essential. Serum or plasma urea nitroge n measurement (mass/volume)Ordered By: ED PROVIDER on 01-13-2023 Urea nitrogen [Mass/Vol] 14 mg/dL 7-18 [facility] Squamous epithelial cells de tection in urine sediment by light microscopyOrdered By: ED PROVIDER on 03-22-2023 Epithelial cells.squamous LM Ql (Urine sed) 5-10 SEEN /hpf 5-10 [facility] Thin prep Papanicolaou smear with manual screeningOrdered By: Dr. Michael on 01-13-2023 Thin prep Papanicolaou smear with manual screening 14 U/L 15-37 [facility] Thin prep Papanicolaou smear with manual screeningOrdered By: ED PROVIDER on 01-13-2023 Thin prep Papanicolaou smear with manual screening 6 5-15 [facility] Urine blood detectionOrdered By: ED PROVIDER on 01-13-2023 RBC Ql (U) Negative Negative [facility] RBC Ql (U) 0 SEEN /hpf 0-5 [facility] Urine clarityOrdered By: ED PROVIDER on 01-13-2023 Clarity (U) Clear Clear [facility] Urine color determinationOrd ered By: ED PROVIDER on 01-13-2023 Color (U) Yellow [facility] Urine glucose detectionOrder ed By: ED PROVIDER on 01-13-2023 Glucose Ql (U) Normal mg/dl Normal [facility] Urine leukocyte esterase det ection by dipstickOrdered By: ED PROVIDER on 01-13-2023 Leukocyte esterase Test strip Ql (U) 25 /ul Negative [facility] Urine pHOrdered By: ED PROVI MIGUEL on 01-13-2023 pH (U) 6.0 [pH] 5.0 - 8.0 [facility] Urine sediment bacteria coun t by microscopy (number/high power field)Ordered By: ED PROVIDER on 01-13-2023 Bacteria LM.HPF (Urine sed) [#/Area] RARE /hpf None Seen [facility] Urine specific gravity measu rementOrdered By: ED PROVIDER on 01-13-2023 Specific gravity (U) [Rel density] 1.025 1.002-1.030 [facility] Urobilinogen Auto test strip Ql (U)Ordered By: ED PROVIDER on 01-13-2023 Urobilinogen Ql (U) Normal mg/dl Normal [facility] Absolute lymphocyte countOrd ered By: Dr. Linn on 12-10-2022 Lymphocytes Auto (Unsp spec) [#/Vol] 1.73 10*3/uL 0.83-4.51 [facility] Basophil percentageOrdered B y: Dr. Linn on 12-10-2022 Basophils/100 WBC (Bld) 1.0 % 0-[address] [facility] Bilirubin [Mass/Vol] 0.40 mg/dL 0.20-1.00 [facility] Comment on above: For patients on eltr ombopag therapy, use of Dimension [place] TBIL is not recommended. Chloride [Moles/Vol] 108 mmol/L 98-107 [facility] Eosinophils/100 WBC (Bld) 3.9 % 0-5 [facility] Glucose [Mass/Vol] 105 mg/dL 74-106 [facility] Comment on above: Fasting Glucose resu lt from 100 to 125 mg/dL suggests IMPAIRED HOMEOSTASIS per A.D.A. criteria. LDH [Catalytic activity/Vol] 145 U/L 84-246 [facility] Neutrophils (Bld) [#/Vol] 4.2 10*3/uL 2.0-7.7 [facility] Neutrophils/100 WBC (Bld) 60.6 % 47-70 [facility] Potassium [Moles/Vol] 3.8 mmol/L 3.5-5.1 [facility] Protein [Mass/Vol] 7.1 g/dL 6.4-8.2 [facility] Sodium [Moles/Vol] 141 mmol/L 136-145 [facility] WBC (Bld) [#/Vol] 6.9 10*3/uL 4.4-11.0 [facility] Blood erythrocytes count (nu mber/volume)Ordered By: Dr. Linn on 12-10-2022 RBC (Bld) [#/Vol] 4.38 10*6/uL 4.2-5.4 [facility] Blood hemoglobin measurement (mass/volume)Ordered By: Dr. Linn on 12-10-2022 Hemoglobin (Bld) [Mass/Vol] 13.4 g/dL 12.0-15.0 [facility] Blood lymphocytes/100 leukoc ytesOrdered By: Dr. Linn on 12-10-2022 Lymphocytes/100 WBC (Bld) 25.3 % 19-41 [facility] Blood monocytes/100 leukocyt esOrdered By: Dr. Linn on 12-10-2022 Monocytes/100 WBC (Bld) 8.8 % 0-[address] [facility] Blood platelet mean volumeOr dered By: Dr. Linn on 12-10-2022 Platelet mean volume (Bld) [Entitic vol] 8.7 fL 6.2-12.0 [facility] Determination of erythrocyte mean corpuscular volume (MCV)Ordered By: Dr. Linn on 12-10-2022 MCV (RBC) [Entitic vol] 93.2 fL 81-[address] [facility] Hematocrit Auto (Bld) [Volum e fraction]Ordered By: Dr. Linn on 12-10-2022 Hematocrit (Bld) [Volume fraction] 40.8 % 37-47 [facility] Laboratory - Chemistry and C hemistry - challengeOrdered By: Dr. Linn on 12-10-2022 ALP [Catalytic activity/Vol] 104 U/L 45-117 [facility] ALT [Catalytic activity/Vol] 35 U/L 13-56 [facility] CO2 [Moles/Vol] 29.0 mmol/L 21.0-32.0 [facility] Globulin (S) [Mass/Vol] 3.6 g/dL 2.2-4.[address] [facility] Urea nitrogen/Creatinine [Mass ratio] 19.3 mg/mg 10-20 [facility] Laboratory - Hematology and Cell countsOrdered By: Dr. Linn on 12-10-2022 Erythrocyte distribution width (RBC) [Entitic vol] 46.4 fL 35.1-43.9 [facility] Erythrocyte distribution width (RBC) [Ratio] 13.6 % 11.6-14.6 [facility] Immature granulocytes/100 WBC (Bld) 0.400 % 0.0-0.9 [facility] Comment on above: IG% - Immature Granu locytes (promyelocytes, myelocytes and metamyelocytes) > 1% indicates that a LEFT SHIFT is Present. MCH (RBC) [Entitic mass] 30.6 pg 27.0-32.0 [facility] Nucleated RBC/100 WBC (Bld) [Ratio] 0 % 0-5 [facility] MCHC Auto (RBC) [Mass/Vol]Or dered By: Dr. Linn on 12-10-2022 MCHC (RBC) [Mass/Vol] 32.8 g/dL 32-36 [facility] No Panel InformationOrdered By: Dr. Linn on 12-10-2022 Miscellaneous Test See comment [facility] Comment on above: TEST RESULT LIMITSVi tamin C, 0.9 mg/dL 0.4-2.0 Vitamin C deficiency is generally defined as plasma or serum concentrations less than 0.2 mg/dL and levels between 0.2 and 0.4 mg/dL are considered low. TESTING PERFORMED AT [facility]. ORIGINAL REPORT ON FILE IN LAB CONTAINS ADDITIONAL TEST SITE INFORMATION. Estimated GFR (MDRD) Amer 103 mL/min >60 [facility] Comment on above: GFR Calc Estimated GFR (MDRD) Non-Af Amer 85 mL/min >60 [facility] Comment on above: Non- GFR Calc Platelets bldOrdered By: Dr. Linn on 12-10-2022 Platelets (Bld) [#/Vol] 337 10*3/uL 150-450 [facility] Serum or plasma albumin yolie urement (mass/volume)Ordered By: Dr. Linn on 12-10-2022 Albumin [Mass/Vol] 3.5 g/dL 3.2-5.0 [facility] Serum or plasma albumin/glob ulin mass ratioOrdered By: Dr. Linn on 12-10-2022 Albumin/Globulin [Mass ratio] 1.0 {ratio} 0.9-2.4 [facility] Serum or plasma calcium yolie urement (mass/volume)Ordered By: Dr. Linn on 12-10-2022 Calcium [Mass/Vol] 8.6 mg/dL 8.5-10.1 [facility] Serum or plasma creatinine m easurement (mass/volume)Ordered By: Dr. Linn on 12-10-2022 Creatinine [Mass/Vol] 0.83 mg/dL 0.55-1.02 [facility] Comment on above: The validity of the calculated GFR & GFRAA in patients over 70 years has not been determined. Clinical correlation is essential. Serum or plasma urea nitroge n measurement (mass/volume)Ordered By: Dr. Linn on 12-10-2022 Urea nitrogen [Mass/Vol] 16 mg/dL 7-18 [facility] Thin prep Papanicolaou smear with manual screeningOrdered By: Dr. Linn on 12-10-2022 Thin prep Papanicolaou smear with manual screening 21 U/L 15-37 [facility] Thin prep Papanicolaou smear with manual screening 4 5-15 [facility] Basophil percentageOrdered B y: Alhaji Loving on 11-19-2022 Basophil percentage < 0.2 AI 0.0-0.9 [facility] HIV 1 and HIV-2 antibody ass ay with HIV-1 p24 antigen detectionOrdered By: Alhaji Loving on 11-19-2022 HIV 1+2 Ab+HIV1 p24 Ag IA Ql Non-Reactive Nonreactive [facility] INR in Blood by Coagulation assayOrdered By: Dr. Linn on 11-19-2022 INR Coag (Bld) [Relative time] 1.1 {INR} [facility] Laboratory - CoagulationOrde red By: Dr. Linn on 11-19-2022 aPTT Coag (Bld) [Time] 33.4 s 24.1-36.2 [facility] PT Coag (PPP) [Time] 13.4 s 11.7-14.9 [facility] No Panel InformationOrdered By: Alhaji Loving on 11-19-2022 Adrenocorticotropic Hormone 8.6 pg/mL 7.2-63.3 [facility] Comment on above: ACTH reference inter nusrat for samples collected between 7 and10 AM. Centromere B Antibody <0.2 AI 0.0-0.9 [facility] HLA Antibody Specificity Class I See comment [facility] Comment on above: TEST RESULT LIMITSPl atelet Antibody Profile HLA Class 1 Antibody Negative Negative IIb/IIIa Antibody Negative Negative Ib/IX Antibody Negative Negative Ia/IIa Antibody Negative Negative Glycoprotein IV Antibody Negative Negative ___ TESTING PERFORMED AT [facility]. ORIGINAL REPORT ON FILE IN LAB CONTAINS ADDITIONAL TEST SITE INFORMATION. 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 *Prolonged Danette/Epi and a normal Danette/ADP closure time suggest a drug effect; review patient medication history. *Prolongation of both Danette/Epi and Danette/ADP closure time suggest a primary platelet disorder, von Willebrand disease, or thrombocytopenia. Patient history and clinical correlation is essential; effects of medication must be excluded. Performed By: #### P FA ####[place] [address] Serum DNA double strand anti body assay (units/volume)Ordered By: Alhaji Loving on 11-19-2022 DNA double strand Ab Qn (S) 1 [IU]/mL 0-9 [facility] Comment on above: Negative <5 Equivoca l 5 - 9 Positive >9 Serum Ena-1 antibody assay (u nits/volume)Ordered By: Alhaji Loving on 11-19-2022 Ena-1 extractable nuclear Ab Qn (S) <0.2 AI 0.0-0.9 [facility] Serum Scl-70 extractable nuc lear antibody assay (units/volume)Ordered By: Alhaji Loving on 11-19-2022 SCL-70 extractable nuclear Ab Qn (S) <0.2 AI 0.0-0.9 [facility] Serum Goldman extractable nucl ear antibody detectionOrdered By: Alhaji Loving on 11-19-2022 Goldman extractable nuclear Ab Ql (S) <0.2 AI 0.0-0.9 [facility] Serum or plasma cortisol bharath surement (mass/volume)Ordered By: Alhaji Loving on 11-19-2022 Cortisol [Mass/Vol] 7.00 ug/dL 3.44-22.45 [facility] Comment on above: Adult (AM) 5.27 - 22 .45 ug/dL Adult (PM) 3.44 - 16.76 ug/dLPlease note revised CORTISOL reference range effective 2019. Serum platelet glycoprotein IIb/IIIa antibody detection by immunoassayOrdered By: Alhaji Loving on 11-19-2022 Platelet glycoprotein IIb/IIIa Ab IA Ql (S) Not Reportable [facility] Serum platelet glycoprotein Ia/IIa antibody detection by immunoassayOrdered By: Alhaji Loving on 11-19-2022 Platelet glycoprotein Ia/IIa Ab IA Ql (S) Not Reportable [facility] Serum platelet glycoprotein Ib/IX antibody detection by immunoassayOrdered By: Alhaji Loving on 11-19-2022 Platelet glycoprotein Ib/Ix Ab IA Ql (S) Not Reportable [facility] Serum platelet glycoprotein antibody detection by immunoassayOrdered By: Alhaji Loving on 11-19-2022 Platelet glycoprotein Ab IA Ql (S) Not Reportable [facility] Clinical Event Note-ED Post Discharge Result Follow Up: Attmauraon 07-15-2022 Clinical Event Note-ED Post Discharge Result Follow Up: Atte Clinical Event: Clinical Event Note: TopicED Post Discharge Result Follow Up: Attempt 1, Complete: PCR Test: COVID-19 Details Patient tested positive for COVID during recent ED visit. ED doctor educated the patient on the positive result and proper discharge instructions (at-home care, quarantine, etc). No further follow up from EDPD team is needed. If there are any other questions for the ED Post-Discharge Culture Follow Up Team, please contact [phone]. . Pat Brito PharmD. PGY1 Resident [facility] Electronic Signatures: Dara Hernandez (PharmD) (Signed 17-Jul-2022 08:41) Co-Signer: Clinical Event Note Pat Brito (FORM[facility]LY [facility]) (Signed 15-Jul-2022 12:42) Authored: Clinical Event Note Last Updated: 17-Jul-2022 08:41 by Dara Hernandez (PharmD) Normal [facility] CORONAVIRUS 2019 BY PCRon SARS-CoV-2 (COVID-19) RNA ANUSHA+probe Ql (Unsp spec) Detected Abnormal Not Detected [facility] Comment on above: Result Comment: . This test has received FDA Emergency Use Authorization (EUA) and has been verified by [facility]. This test is only authorized for the duration of time that circumstances exist to justify the authorization of the emergency use of in vitro diagnostic tests for the detection of SARS-CoV-2 virus and/or diagnosis of COVID-19 infection under section 564(b)(1) of the Act, 21 U.S.C. 360bbb-3(b)(1), unless the authorization is terminated or revoked sooner. [facility] is certified under CLIA-88 as qualified to perform high complexity testing. Testing is performed in the [facility] laboratory located at [address] [place] [address]. SARS-CoV-2/Flu/RSV Multiplex Test: Fact sheet for providers: https://www.fda.gov/media/130508/download Fact sheet for patients: https://www.fda.gov/media/916129/download Performed By: #### C OV19 #### [place] [address] Lab Specimen Source Nasal, Nasopharyngeal Normal [facility] Comment on above: Performed By: #### C OV19 #### [place] [address] Covid 19 Resultson 2 SARS-CoV-2 (COVID-19) RNA ANUSHA+probe Ql (Unsp spec) POSITIVE COVID-19 Test Coronaviruses are common world-wide and are the cause of many common colds. SARS-COV2 is a new coronavirus that began circulating worldwide in 2019 so we are calling it COVID-19. It has been estimated that four out of five patients with COVID-19 will recover at home without the need for medical attention. Symptoms of COVID-19 may include cough, fever, shortness of breath, loss of taste or smell and other flu-like symptoms including chills, sore muscles, sore throat, and headache. Severe illness is more common in older people and people with other health problems such as high blood pressure, obesity, and immune system problems. If the test is positive, you have COVID-19. You will be contacted by the ordering physicians office and instructed to remain on home isolation, in accordance with CDC guidelines. You may also be contacted by the [facility] to see if any of your close contacts may have been exposed to the virus and need to quarantine. If the test is negative, you likely do not have COVID-19 at this time, but you still may have a different illness that can spread to other people (like Influenza, or the Flu) and could still be at risk for getting COVID-19. We recommend that you stay away from other people to limit the spread of illness until your symptoms are improving and you are fever-free for 24 hours without the use of fever lowering medications such as acetaminophen or ibuprofen. No test is 100% accurate so if you are still concerned you may have COVID-19, talk to your doctor about the need to continue to stay away from others. Medicines Unless your provider told you not to use the following: Acetaminophen (Tylenol and others) is generally safe. Anti-inflammatory medications, such as Ibuprofen (Advil or Motrin) or Naproxen (Aleve) can also be used. Vuji-hrr-bedowvl cough and cold medicines can be used according to the instructions on the package. Some xguh-egp-aviovpt medicines also contain acetaminophen. Make sure you are not taking more than your recommended dose. For those not hospitalized, there is no specific treatment available for this illness. Antibiotics do not treat Coronaviruses. Follow-Up Follow up with your doctor by scheduling a virtual visit or consider follow-up at one of our urgent care fever clinics. If you are having difficulty breathing, or are very weak and having difficulty standing, this is a medical emergency. Call 911 or have someone take you to the nearest emergency room immediately. If possible, wear a facemask. Additional guidance from the CDC for patients who tested POSITIVE for COVID-19 How to isolate: Isolate yourself in a specific room at home and limit your contact with others. Use a separate bathroom from other members of the household, when possible. Leave home only to get essential medical care. Do not go to work, school or public areas. Avoid using public transportation, ride-sharing, or taxis. Restrict contact with pets and other animals. If you must care for your pet or be around animals while you are sick, wash your hands before and after your interaction and wear a facemask. Make sure that shared spaces in the home have good airflow, such as by an air conditioner or an opened window, weather permitting. Personal Hygiene Procedures: Wear a face mask when in the same room as other people or pets. If a face mask interferes with your breathing, others should wear a mask when sharing space with you. Frequent hand-washing: wash your hands with soap and water for at least 20 seconds. If soap and water are not available, use alcohol-based hand domestic violence counselor. Avoid touching your eyes, nose, and mouth with unwashed hands. Household Hygiene Procedures: Avoid sharing personal household items such as dishes, glassware, cups, eating utensils, towels or bedding with other people or pets in your home. After use, these items should be washed with soap and hot water. Disinfect all high-touch surfaces every day with antibacterial cleaning solutions such as Lysol wipes, bleach, cleansers, etc. High-touch surfaces include tabletops, doorknobs, bathroom fixtures, toilets, phones, keyboards, tablets and bedside tables. Immediately clean any surfaces that may have blood, poop or body fluids on them, using antibacterial cleaning solutions such as Lysol wipes, bleach, cleansers, etc. If clothing or bedding come into contact with blood, poop or body fluids, they should be washed immediately. Follow the directions on the laundry detergent and clothing labels but hot water is recommended when possible. Stopping home isolation precautions: If possible, consult your doctor before stopping home isolation precautions. According to the CDC, you can discontinue home isolation precautions when you have met both of these criteria: Your fever and respiratory symptoms have been gone for 24 cecil (more content not included)... Normal [facility] Provider Note - ED v3on 09-2 Provider Note - ED v3 Provider Note: Chart Review: ED NOTES ED NOTES: HPI: Patient complains of about 3 days of nausea, vomiting, lightheaded, headache, chills. Denies any known sick contacts but states that her fianc feels the same. Denies any chronic medical history. ROS: All systems are negative other than as noted in HPI. Physical Exam I have reviewed the triage vital signs. Const: Well nourished, well developed, appears stated age, no acute distress Eyes: PERRL, EOM intact, no conjunctival injection, vision grossly normal HENT: Neck supple without meningismus , Moist mucous membranes, no pharyengeal swelling or exudate CV: Regular rate and rhythm, Warm, well-perfused extremities. Chest non tender RESP: Lungs clear bilaterally, Unlabored respiratory effort GI: soft, non-tender, non-distended, no masses : MSK: No gross deformities appreciated Back: Non tender, no pain with ROM Skin: Warm, dry. No rashes Neuro: Alert and oriented x4, GCS 15 , informatics nurse II-XII grossly intact. Sensation and motor function of extremities grossly intact. Psych: Appropriate mood and affect. I have reviewed and confirmed nurses/medics notes for patient past, social and family history. Portions of this note were dictated by speech recognition. An attempt at proof reading was made to minimize errors. Minor errors in family medicine physician assistant may be present. HISTORY OF PRESENTING ILLNESS BECKI is a 32 year old Female and was seen by me at 14-Jul-2022 13:33 for a chief complaint of difficulty breathing (Patient to ED reference difficulty breathing, nausea, vomiting, chills/sweat, body aches, headache, dizzy and lose of taste and appetite.)(1). Triage Information: Most recent Vital Sign Value Date Temp (F): 97.5 07-14-2022 13:19 Temp (C): 36.4 07-14-2022 13:19 Heart Rate (beats/min): 96 07-14-2022 13:19 Respirations (breaths/min): 18 07-14-2022 13:19 SpO2 (%): 96 07-14-2022 13:19 BP Systolic (mm Hg): 102 07-14-2022 13:19 BP Diastolic (mm Hg): 75 07-14-2022 13:19 PAST MEDICAL HISTORY ALLERGIES/INTOLERANCE S: Allergy Allergen: penicillin Type: Drug Reaction: Hives/Urticaria Allergen: sulfamethizole Type: Drug Reaction: Hives/Urticaria Intolerance Allergen: contrast (specific type unknown) Type: Contrast Reaction: Nausea/Vomiting HEALTH HISTORY: No documented data. OUTPATIENT MEDICATIONS: Home Medications Review Status for Reconciliation: Not Done Med Status: Patient Currently Takes Medications Drug Name: Zofran 4 mg oral tablet Instructions: 1 tab(s) orally every 8 hours Drug Name: Pepcid 20 mg oral tablet Instructions: 1 tab(s) orally 2 times a day Drug Name: ondansetron 4 mg oral tablet, disintegrating Instructions: 1 tab(s) orally 4 times a day, As Needed -for nausea and vomiting SIGNIFICANT EVENTS: No documented data. CRITICAL CARE RESULTS: Recent Lab Results: I have reviewed these laboratory results: Coronavirus 2019 by PCR 14-Jul-2022 13:56:00 ResultValue Fluid Source Nasal, Nasopharyngeal Coronavirus 2019,PCR DETECTED Reference Range: Not Detected .This test has received FDA Emergency Use Authorization (EUA) and has been verified by [facility]. This test is only authorized for the duration of time that circumstan A MDM MDM/ED COURSE: And had a benign physical exam and denied needing any other treatments in the ER. Patient was swabbed for COVID and was given a prescription for Zofran. 1800-patient notified of positive COVID test You will be notified by phone of your COVID results. I otherwise recommend you get plenty of rest and fluids, use ibuprofen and/or Tylenol as needed for pain and fever, follow-up with your family doctor, and otherwise return to the nearest ER at anytime for any new or worsening concerns. DISPOSITION Diagnosis/Annotation: ED Dx Name:Suspected COVID-19 virus infection Code:Z20.822 Disposition: discharged Type: home CONSULT CRITICAL CARE TIME Is this a critically ill patient: no Electronic Signatures: Armando Knott I ([employer]) (Signed 14-Jul-2022 21:52) Authored: ED Notes, HPI, PMH, PE, Results/Vital Signs, MDM/ED Course, Clinical Impression, Attestation, Chart Review, Scores Last Updated: 14-Jul-2022 21:52 by Armando Knott I ([employer]) References: 1. Data Referenced From Triage - ED 14-Jul-2022 13:19 Normal [facility] Health Risk Screen - Adult Emergenc yon 07-14-2022 Risk Screen - Adult Emergency Preferred Language: Preferred Language: Preferred Language for Discussing Health Care (patient/designee)Karina rubi Advanced Directives: Advance Directive/DNRno Advance Directive Information Givenpatient/family declined Family Violence Adult: Abuse Screen: Are you or have you been threatened or abused physically, emotionally, or sexually by anyoneno Learning Assessment (Patient): Learning Assessment (Patient): Patient is Able to be Assessed for Learningyes Factors Influencing Readiness to Learnna Factors that Impact Ability to Learnnone Devices/Methods Used to Communicatenone Learning Preferencesverbal instruction; written material Cultural Considerationsnone Developmental Considerationsnone Mormon Considerationsnone Learning Assessment (Other Learner): Learning Assessment (Other Learner): Other learner availableno Pressure Injury/TB/Substance: Pressure Injury: Pressure Injury Present on Admissionno Do you have a coughyes... Has your cough lasted longer than 2 weeksno Smoking Statusnever smoker Alcohol Usedaily, heavy Drug Usedenies Drug 2 Usedenies Admission Risk Screen: Significant IndicatorsComplete CAGE: CAGE: Is this an injured patient at a Trauma Center ([facility]/[place]): no Electronic Signatures: Mitali Liu (AMARILIS) (Signed 14-Jul-2022 14:31) Authored: Preferred Language, Advanced Directives, Family Violence Adult, Learning Assessment (Patient), Learning Assessment (Other Learner), Pressure Injury/TB/Substance, Pressure Injury, CAGE Last Updated: 14-Jul-2022 14:31 by Mitali Liu (AMARILIS) [facility] Triage - EDon 07-14-2022 Triage - ED Quick Triage: Are You no Have You Given In The Last 6 Weeksno Are You Currently Breastfeedingno The patient and/or guardian verbally acknowledges placement for services into the following (when Urgent Care Service hours are operating):emergency department Risk Screens: Chart Review: ARRIVAL INFORMATION Mode of Arrival: private vehicle CHIEF COMPLAINT BECKI JACKSON is a Female patient with a chief complaint of difficulty breathing (Patient to ED reference difficulty breathing, nausea, vomiting, chills/sweat, body aches, headache, dizzy and lose of taste and appetite.). Onset of the Complaint: 12-Jul-2022 19:00 Triage Date/Time: 14-Jul-2022 13:19 ABELARDO: 4 Pain Rating (0-10): 10 = Severe Pain location: head and body Vital Signs: Temperature: 97.5F ( 36.4C) taken temporal Blood Pressure: 102/75 Mean: Heart Rate: 96 Respiratory Rate: 18 Pulse Oximetry: 96% on room air, no respiratory support. Height: 5 feet 5.00 inches. 165.1 CM Weight: 198.8 pounds. Calculated 90.2 kg. (stated) Calculated BMI (kg/m2): 33.091 Calculated BSA (m2) 2.03 [place] Coma Scale: Best Eye Response: (E4) spontaneous Best Motor Response: (M6) obeys commands Best Verbal Response: (V5) oriented [place] Score: 15 [place] Assessment Qualifiers: patient not sedated/intubated Cough lasting greater than 3 weeks: no Patient immunocompromised related to: N/A Allergies: yes Last menstrual period: 07-Jul-2022 Patient has homicidal thoughts: no Symptoms Are POSITIVE For: body aches, chills, congestion, cough, fever and malaise. Symptoms Are Negative For: chest pain, diaphoresis, dyspnea and headache. Risk Screens Suicide Risk Screen In the Past Month: Have you wished you were or wished you could go to sleep and not wake up no In the Past Month: Have you had any actual thoughts of killing yourself no In Your Lifetime: Have you ever done anything, started to do anything, or prepared to do anything to end your life no Interventions: Hassan Fall Interventions: LOW INTERVENTIONS: *patient oriented to surroundings and call system, * patient/family falls education completed and documented, *patients fall status communicated during bedside handoff, *whiteboard updated, *mode of toileting discussed with patient, *bed in low position with brakes locked, *call light in reach, * non-skid footwear PAST MEDICAL HISTORY Immunization History: Last Known Tetanus Immunization: Unknown TRAVEL HISTORY Travel History Coronavirus Screening: positive for symptoms Travel Exposure History: NO travel to International locations in the past 30 days PAIN Pain Scale Used: ZI Pain Rating (0-10): 10 = Severe Past Medical History: Past Medical History Reviewedyes Electronic Signatures: Rudi Salgado (EMT-P) (Signed 14-Jul-2022 13:24) Entered: Risk Screens, Pain, Travel History, Chart Review, Scores Authored: Quick Triage, Risk Screens, Pain, Travel History, Chart Review, Scores Mitali Liu (RN) (Signed 14-Jul-2022 14:33) Authored: Quick Triage, Risk Screens, Immunizations, Chart Review, Past Medical History Last Updated: 14-Jul-2022 14:33 by Mitali Liu (RN) [facility] Absolute lymphocyte counton 06-02-2022 Lymphocytes Auto (Unsp spec) [#/Vol] 1.27 10*3/uL 0.83-4.51 [facility] Work Phone: Amorphous sediment detection in urine sediment by light microscopyon 06-02-2022 Amorphous sediment LM Ql (Urine sed) 1+ URATE [facility] Work Phone: Basophil percentageon 2021 Basophil percentage 0-5 SEEN /hpf 0-5 [facility] Work Phone: Basophils/100 WBC (Bld) 1.0 % 0-[address] [facility] Work Phone: Chloride [Moles/Vol] 111 mmol/L 98-107 [facility] Work Phone: Eosinophils/100 WBC (Bld) 4.6 % 0-5 [facility] Work Phone: Glucose [Mass/Vol] 100 mg/dL 74-106 [facility] Work Phone: Comment on above: Fasting Glucose resu lt from 100 to 125 mg/dL suggests IMPAIRED HOMEOSTASIS per A.D.A. criteria. Neutrophils (Bld) [#/Vol] 4.0 10*3/uL 2.0-7.7 [facility] Work Phone: Neutrophils/100 WBC (Bld) 64.7 % 47-70 [facility] Work Phone: Potassium [Moles/Vol] 3.8 mmol/L 3.5-5.1 [facility] Work Phone: Sodium [Moles/Vol] 142 mmol/L 136-145 [facility] Work Phone: WBC (Bld) [#/Vol] 6.1 10*3/uL 4.4-11.0 [facility] Work Phone: Bilirubin Test strip Ql (U)o n 06-02-2022 Bilirubin Ql (U) Negative Negative [facility] Work Phone: Blood erythrocytes count (nu mber/volume)on 06-02-2022 RBC (Bld) [#/Vol] 4.47 10*6/uL 4.2-5.4 [facility] Work Phone: Blood hemoglobin measurement (mass/volume)on 06-02-2022 Hemoglobin (Bld) [Mass/Vol] 13.6 g/dL 12.0-15.0 [facility] Work Phone: Blood lymphocytes/100 leukoc yteson 06-02-2022 Lymphocytes/100 WBC (Bld) 20.7 % 19-41 [facility] Work Phone: Blood monocytes/100 leukocyt eson 06-02-2022 Monocytes/100 WBC (Bld) 8.5 % 0-[address] [facility] Work Phone: Blood platelet mean volumeon 06-02-2022 Platelet mean volume (Bld) [Entitic vol] 8.8 fL 6.2-12.0 [facility] Work Phone: Determination of erythrocyte mean corpuscular volume (MCV)on 06-02-2022 MCV (RBC) [Entitic vol] 92.6 fL 81-[address] [facility] Work Phone: Hematocrit Auto (Bld) [Volum e fraction]on 06-02-2022 Hematocrit (Bld) [Volume fraction] 41.4 % 37-47 [facility] Work Phone: Ketones Test strip Ql (U)on 06-02-2022 Ketones Ql (U) 5 mg/dl Negative [facility] Work Phone: Laboratory - Chemistry and C hemistry - challengeon 06-02-2022 CO2 [Moles/Vol] 28.0 mmol/L 21.0-32.0 [facility] Work Phone: [phone] Urea nitrogen/Creatinine [Mass ratio] 12.7 mg/mg 10-20 [facility] Work Phone: [phone] Laboratory - Hematology and Cell countson 06-02-2022 Erythrocyte distribution width (RBC) [Entitic vol] 44.8 fL 35.1-43.9 [facility] Work Phone: [phone] Erythrocyte distribution width (RBC) [Ratio] 13.2 % 11.6-14.6 [facility] Work Phone: [phone] Immature granulocytes/100 WBC (Bld) 0.500 % 0.0-0.9 [facility] Work Phone: [phone] Comment on above: IG% - Immature Granu locytes (promyelocytes, myelocytes and metamyelocytes) > 1% indicates that a LEFT SHIFT is Present. MCH (RBC) [Entitic mass] 30.4 pg 27.0-32.0 [facility] Work Phone: [phone] Nucleated RBC/100 WBC (Bld) [Ratio] 0 % 0-5 [facility] Work Phone: [phone] MCHC Auto (RBC) [Mass/Vol]on 06-02-2022 MCHC (RBC) [Mass/Vol] 32.9 g/dL 32-36 [facility] Work Phone: [phone] Mucus LM Ql (Urine sed)on Mucus Ql (Urine sed) 0 SEEN /hpf [facility] Work Phone: [phone] Nitrite Test strip Ql (U)on 06-02-2022 Nitrite Ql (U) Negative Negative [facility] Work Phone: [phone] No Panel Informationon 06-02 Estimated Creatinine Clearance Calc 92.85 ml/min [facility] Work Phone: [phone] Estimated GFR (MDRD) Amer 109 mL/min >60 [facility] Work Phone: [phone] Comment on above: GFR Calc Estimated GFR (MDRD) Non-Af Amer 90 mL/min >60 [facility] Work Phone: Comment on above: Non- GFR Calc Platelets bldon 06-02-2022 Platelets (Bld) [#/Vol] 272 10*3/uL 150-450 [facility] Work Phone: Protein Test strip Ql (U)on 06-02-2022 Protein Ql (U) Negative Negative [facility] Work Phone: Serum or plasma calcium yolie urement (mass/volume)on 06-02-2022 Calcium [Mass/Vol] 8.5 mg/dL 8.5-10.1 oste [facility] Work Phone: Serum or plasma creatinine m easurement (mass/volume)on 06-02-2022 Creatinine [Mass/Vol] 0.79 mg/dL 0.55-1.02 [facility] Work Phone: Comment on above: The validity of the calculated GFR & GFRAA in patients over 70 years has not been determined. Clinical correlation is essential. Serum or plasma urea nitroge n measurement (mass/volume)on 06-02-2022 Urea nitrogen [Mass/Vol] 10 mg/dL 7-18 [facility] Work Phone: Squamous epithelial cells de tection in urine sediment by light microscopyon 06-02-2022 Epithelial cells.squamous LM Ql (Urine sed) 5-10 SEEN /hpf 5-10 [facility] Work Phone: Thin prep Papanicolaou smear with manual screeningon 06-02-2022 Thin prep Papanicolaou smear with manual screening 3 5-15 [facility] Work Phone: Urine blood detectionon 08-0 RBC Ql (U) Negative Negative [facility] Work Phone: RBC Ql (U) 0-5 SEEN /hpf 0-5 [facility] Work Phone: Urine clarityon 06-02-2022 Clarity (U) Clear Clear [facility] Work Phone: Urine color determinationon 06-02-2022 Color (U) Yellow Yellow [facility] Work Phone: Urine glucose detectionon Glucose Ql (U) Normal mg/dl Normal [facility] Work Phone: Urine leukocyte esterase det ection by dipstickon 06-02-2022 Leukocyte esterase Test strip Ql (U) 25 /ul Negative [facility] Work Phone: Urine pHon 06-02-2022 pH (U) 6.0 [pH] 5.0 - 8.0 [facility] Work Phone: Urine sediment bacteria coun t by microscopy (number/high power field)on 06-02-2022 Bacteria LM.HPF (Urine sed) [#/Area] 0 /[HPF] None Seen [facility] Work Phone: Urine specific gravity measu rementon 06-02-2022 Specific gravity (U) [Rel density] 1.020 1.002-1.030 [facility] Work Phone: Urobilinogen Auto test strip Ql (U)on 06-02-2022 Urobilinogen Ql (U) Normal mg/dl Normal [facility] Work Phone: Absolute lymphocyte counton 05-09-2022 Lymphocytes Auto (Unsp spec) [#/Vol] 1.71 10*3/uL 0.83-4.51 [facility] Work Phone: Basophil percentageon 2021 Basophil percentage 0 SEEN /hpf 0-5 [facility] Work Phone: Basophils/100 WBC (Bld) 0.4 % 0-[address] [facility] Work Phone: Bilirubin [Mass/Vol] 0.20 mg/dL 0.20-1.00 [facility] Work Phone: Comment on above: For patients on eltr ombopag therapy, use of Dimension [place] TBIL is not recommended. Chloride [Moles/Vol] 107 mmol/L 98-107 [facility] Work Phone: Eosinophils/100 WBC (Bld) 1.8 % 0-5 [facility] Work Phone: Glucose [Mass/Vol] 101 mg/dL 74-106 [facility] Work Phone: Comment on above: Fasting Glucose resu lt from 100 to 125 mg/dL suggests IMPAIRED HOMEOSTASIS per A.D.A. criteria. Lactate [Moles/Vol] 1.4 mmol/L 0.4-2.0 [facility] Work Phone: Neutrophils (Bld) [#/Vol] 9.4 10*3/uL 2.0-7.7 [facility] Work Phone: Neutrophils/100 WBC (Bld) 76.8 % 47-70 [facility] Work Phone: Potassium [Moles/Vol] 4.1 mmol/L 3.5-5.1 [facility] Work Phone: Protein [Mass/Vol] 6.2 g/dL 6.4-8.2 [facility] Work Phone: Sodium [Moles/Vol] 141 mmol/L 136-145 [facility] Work Phone: WBC (Bld) [#/Vol] 12.2 10*3/uL 4.4-11.0 [facility] Work Phone: Bilirubin Test strip Ql (U)o n 05-09-2022 Bilirubin Ql (U) Negative Negative [facility] Work Phone: Blood erythrocytes count (nu mber/volume)on 05-09-2022 RBC (Bld) [#/Vol] 4.61 10*6/uL 4.2-5.4 [facility] Work Phone: Blood hemoglobin measurement (mass/volume)on 05-09-2022 Hemoglobin (Bld) [Mass/Vol] 14.0 g/dL 12.0-15.0 [facility] Work Phone: Blood lymphocytes/100 leukoc yteson 05-09-2022 Lymphocytes/100 WBC (Bld) 14.0 % 19-41 [facility] Work Phone: Blood monocytes/100 leukocyt eson 05-09-2022 Monocytes/100 WBC (Bld) 6.4 % 0-[address] [facility] Work Phone: Blood platelet mean volumeon 05-09-2022 Platelet mean volume (Bld) [Entitic vol] 9.1 fL 6.2-12.0 [facility] Work Phone: Determination of erythrocyte mean corpuscular volume (MCV)on 05-09-2022 MCV (RBC) [Entitic vol] 90.5 fL 81-[address] [facility] Work Phone: Hematocrit Auto (Bld) [Volum e fraction]on 05-09-2022 Hematocrit (Bld) [Volume fraction] 41.7 % 37-47 [facility] Work Phone: Ketones Test strip Ql (U)on 05-09-2022 Ketones Ql (U) Negative Negative [facility] Work Phone: Laboratory - Chemistry and C hemistry - challengeon 05-09-2022 ALP [Catalytic activity/Vol] 89 U/L 45-117 [facility] Work Phone: ALT [Catalytic activity/Vol] 53 U/L 13-56 [facility] Work Phone: CO2 [Moles/Vol] 30.0 mmol/L 21.0-32.0 [facility] Work Phone: Globulin (S) [Mass/Vol] 3.0 g/dL 2.2-4.[address] [facility] Work Phone: Lipase [Catalytic activity/Vol] 90 U/L 73-393 [facility] Work Phone: Urea nitrogen/Creatinine [Mass ratio] 16.3 mg/mg 10-20 [facility] Work Phone: Laboratory - Hematology and Cell countson 05-09-2022 Erythrocyte distribution width (RBC) [Entitic vol] 42.9 fL 35.1-43.9 [facility] Work Phone: Erythrocyte distribution width (RBC) [Ratio] 13.2 % 11.6-14.6 [facility] Work Phone: Immature granulocytes/100 WBC (Bld) 0.600 % 0.0-0.9 [facility] Work Phone: [phone] Comment on above: IG% - Immature Granu locytes (promyelocytes, myelocytes and metamyelocytes) > 1% indicates that a LEFT SHIFT is Present. MCH (RBC) [Entitic mass] 30.4 pg 27.0-32.0 [facility] Work Phone: Nucleated RBC/100 WBC (Bld) [Ratio] 0 % 0-5 [facility] Work Phone: [phone] MCHC Auto (RBC) [Mass/Vol]on 05-09-2022 MCHC (RBC) [Mass/Vol] 33.6 g/dL 32-36 [facility] Work Phone: Mucus LM Ql (Urine sed)on Mucus Ql (Urine sed) 0 SEEN /hpf [facility] Work Phone: [phone] Nitrite Test strip Ql (U)on 05-09-2022 Nitrite Ql (U) Negative Negative [facility] Work Phone: No Panel Informationon 05-09 Estimated Creatinine Clearance Calc 85.29 ml/min [facility] Work Phone: [phone] Estimated GFR (MDRD) Amer 99 mL/min >60 [facility] Work Phone: [phone] Comment on above: GFR Calc Estimated GFR (MDRD) Non-Af Amer 82 mL/min >60 [facility] Work Phone: [phone] Comment on above: Non- GFR Calc Platelets bldon 05-09-2022 Platelets (Bld) [#/Vol] 301 10*3/uL 150-450 [facility] Work Phone: [phone] Protein Test strip Ql (U)on 05-09-2022 Protein Ql (U) Negative Negative [facility] Work Phone: [phone] Serum or plasma albumin yolie urement (mass/volume)on 05-09-2022 Albumin [Mass/Vol] 3.2 g/dL 3.2-5.0 [facility] Work Phone: [phone] Serum or plasma albumin/glob ulin mass ratioon 05-09-2022 Albumin/Globulin [Mass ratio] 1.1 {ratio} 0.9-2.4 [facility] Work Phone: [phone] Serum or plasma calcium yolie urement (mass/volume)on 05-09-2022 Calcium [Mass/Vol] 8.7 mg/dL 8.5-10.1 [facility] Work Phone: Serum or plasma creatinine m easurement (mass/volume)on 05-09-2022 Creatinine [Mass/Vol] 0.86 mg/dL 0.55-1.02 [facility] Work Phone: Comment on above: The validity of the calculated GFR & GFRAA in patients over 70 years has not been determined. Clinical correlation is essential. Serum or plasma urea nitroge n measurement (mass/volume)on 05-09-2022 Urea nitrogen [Mass/Vol] 14 mg/dL 7-18 [facility] Work Phone: Squamous epithelial cells de tection in urine sediment by light microscopyon 05-09-2022 Epithelial cells.squamous LM Ql (Urine sed) 0 SEEN /hpf 5-10 [facility] Work Phone: Thin prep Papanicolaou smear with manual screeningon 05-09-2022 Thin prep Papanicolaou smear with manual screening 58 U/L 15-37 [facility] Work Phone: [phone] Thin prep Papanicolaou smear with manual screening 4 5-15 [facility] Work Phone: Urine blood detectionon 04-24 RBC Ql (U) Negative Negative [facility] Work Phone: RBC Ql (U) 0 SEEN /hpf 0-5 [facility] Work Phone: [phone] Urine clarityon 05-09-2022 Clarity (U) Clear Clear [facility] Work Phone: Urine color determinationon 05-09-2022 Color (U) Yellow Yellow [facility] Work Phone: Urine glucose detectionon Glucose Ql (U) Normal mg/dl Normal [facility] Work Phone: Urine leukocyte esterase det ection by dipstickon 05-09-2022 Leukocyte esterase Test strip Ql (U) Negative Negative [facility] Work Phone: Urine pHon 05-09-2022 pH (U) 6.0 [pH] 5.0 - 8.0 [facility] Work Phone: Urine sediment bacteria coun t by microscopy (number/high power field)on 05-09-2022 Bacteria LM.HPF (Urine sed) [#/Area] RARE /hpf None Seen [facility] Work Phone: Urine specific gravity measu rementon 05-09-2022 Specific gravity (U) [Rel density] 1.025 1.002-1.030 [facility] Work Phone: Urobilinogen Auto test strip Ql (U)on 05-09-2022 Urobilinogen Ql (U) Normal mg/dl Normal [facility] Work Phone: Absolute lymphocyte counton 03-19-2022 Lymphocytes Auto (Unsp spec) [#/Vol] 1.52 10*3/uL 0.83-4.51 [facility] Work Phone: Albumin Elph [Mass/Vol]on Albumin [Mass/Vol] 3.6 g/dL 2.9-4.4 [facility] Work Phone: Atypical perinuclear antineu trophil cytoplasmic antibodies measurementon 03-19-2022 Neutrophil cytoplasmic Ab.perinuclear.atypical IF (S) [Titer] <1:20 titer Neg:<1:20 [facility] Work Phone: Comment on above: The atypical pANCA p attern has been observed in asignificant percentage of patients with ulcerative colitis,primary sclerosing cholangitis and autoimmune hepatitis. Basophil percentageon 2021 Basophils/100 WBC (Bld) 0.6 % 0-[address] [facility] Work Phone: Cholesterol [Mass/Vol] 156 mg/dL <200 [facility] Work Phone: [phone] Comment on above: <200 mg/dL Desirable 200-240 mg/dL Borderline >240 mg/dL High Risk Eosinophils/100 WBC (Bld) 0.8 % 0-5 [facility] Work Phone: [phone] Neutrophils (Bld) [#/Vol] 6.7 10*3/uL 2.0-7.7 [facility] Work Phone: [phone] Neutrophils/100 WBC (Bld) 74.3 % 47-70 [facility] Work Phone: [phone] Triglyceride [Mass/Vol] 58 mg/dL <[address] [facility] Work Phone: Comment on above: The drugs N-Acetylcy steine and Metamizole may falsely depress this assay.Serum Triglycerides Reference Interval Normal <150 mg/dL Borderline high 150 - 199 mg/dL High 200 - 499 mg/dL Very High > or = 500 mg/dL WBC (Bld) [#/Vol] 9.0 10*3/uL 4.4-11.0 [facility] Work Phone: Blood erythrocytes count (nu mber/volume)on 03-19-2022 RBC (Bld) [#/Vol] 4.59 10*6/uL 4.2-5.4 [facility] Work Phone: Blood hemoglobin measurement (mass/volume)on 03-19-2022 Hemoglobin (Bld) [Mass/Vol] 13.7 g/dL 12.0-15.0 [facility] Work Phone: Blood lymphocytes/100 leukoc yteson 03-19-2022 Lymphocytes/100 WBC (Bld) 17.0 % 19-41 [facility] Work Phone: [phone] Blood monocytes/100 leukocyt eson 03-19-2022 Monocytes/100 WBC (Bld) 7.0 % 0-[address] [facility] Work Phone: Blood platelet mean volumeon 03-19-2022 Platelet mean volume (Bld) [Entitic vol] 9.3 fL 6.2-12.0 [facility] Work Phone: [phone] Cholesterol in LDL Direct as say [Mass/Vol]on 03-19-2022 Cholesterol in LDL [Mass/Vol] 97 mg/dL 0-99 [facility] Work Phone: [phone] Determination of erythrocyte mean corpuscular volume (MCV)on 03-19-2022 MCV (RBC) [Entitic vol] 90.6 fL 81-[address] [facility] Work Phone: Erythrocyte sedimentation ra krissy 03-19-2022 ESR (Bld) [Velocity] 5 mm/h 0-30 [facility] Work Phone: [phone] Hematocrit Auto (Bld) [Volum e fraction]on 03-19-2022 Hematocrit (Bld) [Volume fraction] 41.6 % 37-47 [facility] Work Phone: Interpretation of Borrelia b urgdorferi antibody assayon 03-19-2022 B. burgdorferi Ab (S) [Interp] REF LAB [facility] Work Phone: Interpretation of serum or p lasma protein pattern by immunofixation (narrative resulton 03-19-2022 Protein Fractions Immunofixation Florentino [Interp] See comment [facility] Work Phone: [phone] Comment on above: Result: Not Observed Laboratory - Chemistry and C hemistry - challengeon 03-19-2022 Cobalamin (Vitamin B12) [Mass/Vol] 283 pg/mL 211-911 [facility] Work Phone: Free T4 [Mass/Vol] 1.15 ng/dL 0.76-1.46 [facility] Work Phone: [phone] Laboratory - Hematology and Cell countson 03-19-2022 Erythrocyte distribution width (RBC) [Entitic vol] 44.1 fL 35.1-43.9 [facility] Work Phone: [phone] Erythrocyte distribution width (RBC) [Ratio] 13.3 % 11.6-14.6 [facility] Work Phone: [phone] Immature granulocytes/100 WBC (Bld) 0.300 % 0.0-0.9 [facility] Work Phone: [phone] Comment on above: IG% - Immature Granu locytes (promyelocytes, myelocytes and metamyelocytes) > 1% indicates that a LEFT SHIFT is Present. MCH (RBC) [Entitic mass] 29.8 pg 27.0-32.0 [facility] Work Phone: [phone] Nucleated RBC/100 WBC (Bld) [Ratio] 0 % 0-5 [facility] Work Phone: [phone] Laboratory - Miscellaneous t estson 03-19-2022 Service comment (Unsp spec) [Interp] TNP [facility] Work Phone: [phone] Comment on above: Test not performed MCHC Auto (RBC) [Mass/Vol]on 03-19-2022 MCHC (RBC) [Mass/Vol] 32.9 g/dL 32-36 [facility] Work Phone: [phone] Panel Informationon 03-19 Addendum Document Comment . [facility] Work Phone: [phone] Comment on above: Protein electrophore sis scan will follow via computer,mail, or pnp delivery. Endomysial IgA Antibody Negative Negative [facility] Work Phone: [phone] Free Triiodothyronine (T3) pg/dL 3.8 pg/mL 2.18-3.98 [facility] Work Phone: [phone] Hepatitis A IgM Antibody Negative Negative [facility] Work Phone: [phone] Hepatitis B Core IgM Antibody Negative Negative [facility] Work Phone: [phone] Hepatitis C Antibody (EIA) 0.1 s/co ratio 0.0-0.9 [facility] Work Phone: [phone] Hepatitis C Antibody Comment Comment . [facility] Work Phone: [phone] Comment on above: NegativeNot infected with HCV, unless recent infection issuspected or other evidence exists to indicate HCVinfection. Immunoglobulin E 31 IU/mL 6-495 [facility] Work Phone: [phone] Comment on above: Performed at: [facility] [place], [place] [id number] Director: Ryan Keyes PhD, Phone: [phone] at: [facility] [id number] Director: Audrey Scott MD, Phone: [phone] Thyroid Stimulating Hormone (TSH) 1.38 uIU/mL 0.358-3.74 [facility] Work Phone: [phone] Vitamin D 25-Hydroxy 23.7 ng/mL [facility] Work Phone: [phone] Comment on above: Vitamin D 25(OH) Sta tus Range Deficiency <20 ng/mL (50nmol/L) Insufficiency 20 - 30 ng/mL (50 - 75 nmol/L) Sufficiency 30 - 100 ng/mL (75 - 250 nmol/L) Toxicity >100 ng/mL (>250 nmol/L) Platelets bldon 03-19-2022 Platelets (Bld) [#/Vol] 318 10*3/uL 150-450 [facility] Work Phone: [phone] Serum IgA measurement (units /volume)on 03-19-2022 IgA Qn (S) 200 mg/dL [facility] Work Phone: [phone] Comment on above: Performed at: [facility] [place], [place] [id number] Director: Ryan Keyes PhD, Phone: [phone] Serum [id number] measu rement by electrophoresison 03-19-2022 Alpha 1 globulin Elph [Mass/Vol] 0.3 g/dL 0.0-0.4 [facility] Work Phone: [phone] Alpha 1 globulin Elph [Mass/Vol] 0.7 g/dL 0.4-1.0 [facility] Work Phone: [phone] Serum classic neutrophil cyt oplasmic antibody assay (units/volume)on 03-19-2022 Neutrophil cytoplasmic Ab.classic Qn (S) <1:20 titer Neg:<1:20 [facility] Work Phone: [phone] Serum globulin measurement ( mass/volume)on 03-19-2022 Globulin (S) [Mass/Vol] 2.9 g/dL 2.2-3.[address] [facility] Work Phone: [phone] Serum or plasma C reactive p rotein measurement (mass/volume)on 03-19-2022 CRP [Mass/Vol] mg/L 0.0-3.0 [facility] Work Phone: [phone] Comment on above: C-Reactive Protein ( CRP) provides useful information for thediagnosis, therapy and monitoring of inflammatory processesand associated diseases. For the evaluation of Relative Riskfor Cardiovascular Disease, a High Sensitivity CRP (HSCRP)should be ordered. Serum or plasma IgA measurem ent (mass/volume)on 03-19-2022 IgA [Mass/Vol] 185 mg/dL 87-352 [facility] Work Phone: [phone] Serum or plasma IgG measurem ent (mass/volume)on 03-19-2022 IgG [Mass/Vol] 930 mg/dL [phone] [facility] Work Phone: [phone] Serum or plasma IgM measurem ent (mass/volume)on 03-19-2022 IgM [Mass/Vol] 144 mg/dL 26-217 [facility] Work Phone: [phone] Serum or plasma angiotensin converting enzyme measurement (enzymatic activity/volume)on 03-19-2022 Angiotensin converting enzyme [Catalytic activity/Vol] 34 U/L 14-82 [facility] Work Phone: [phone] Serum or plasma beta globuli n measurement by electrophoresis (mass/volume)on 03-19-2022 Beta globulin Elph [Mass/Vol] 1.0 g/dL 0.7-1.3 [facility] Work Phone: [phone] Serum or plasma calcitriol m easurement (mass/volume)on 03-19-2022 1,25-dihydroxyvitamin D3 [Mass/Vol] 53.3 pg/mL 19.9-79.3 [facility] Work Phone: Comment on above: Effective March 30, 2022 Calcitriol(1,25 di-OH Vit D) reference interval will be changing to: pg/mL 0 - 6 months: 44.3 - 212.9 7 months - 1 year: 40.3 - 112.4 >1 year: 24.8 - 81.5Performed at: [facility] [place], [place] [id number] Director: Audrey Scott MD, Phone: [phone] Serum or plasma cholesterol in HDL measurement (mass/volume)on 03-19-2022 Cholesterol in HDL [Mass/Vol] 46 mg/dL >40 [facility] Work Phone: Comment on above: The drugs N-Acetylcy steine and Metamizole may falsely depress this assay. Reference Range HDL <40 mg/dL Low HDL Cholesterol HDL >or= 60 mg/dL High HDL Cholesterol Serum or plasma gamma globul in measurement by electrophoresis (mass/volume)on 03-19-2022 Gamma globulin Elph [Mass/Vol] 1.0 g/dL 0.4-1.8 [facility] Work Phone: Serum or plasma hepatitis B virus surface antigen detection by immunoassayon 03-19-2022 HBV surface Ag IA Ql Negative Negative [facility] Work Phone: Serum or plasma immunoelectr ophoresis interpretation (nominal result)on 03-19-2022 Interpretation IEP [Interp] Comment . [facility] Work Phone: Comment on above: No monoclonality det ected. Serum perinuclear neutrophil cytoplasmic antibody titer by immunofluorescenceon 03-19-2022 Neutrophil cytoplasmic Ab.perinuclear IF (S) [Titer] <1:20 titer Neg:<1:20 [facility] Work Phone: Comment on above: The presence of posi tive fluorescence exhibiting P-ANCA orC-ANCA patterns alone is not specific for the diagnosis ofWegener's Granulomatosis (WG) or microscopic polyangiitis.Decisions about treatment should not be based solely onANCA IFA results. The [employer] ANCA Group Consensusrecommends follow up testing of positive sera with both GA-3 and MPO-ANCA enzyme immunoassays. As many as 5% serumsamples are positive only by EIA. Ref. AM J Clin [id number];111:507-513. Serum tissue transglutaminas e IgA antibody assay (units/volume)on 03-19-2022 tTG IgA Qn (S) <2 U/mL 0-3 [facility] Work Phone: Comment on above: Negative 0 - 3 Weak Positive 4 - 10 Positive >10 Tissue Transglutaminase (tTG) has been identified as the endomysial antigen. Studies have demonstr- ated that endomysial IgA antibodies have over 99% specificity for gluten sensitive enteropathy. Thin prep Papanicolaou smear with manual screeningon 03-19-2022 Thin prep Papanicolaou smear with manual screening 158 U/L 84-246 [facility] Work Phone: Thin prep Papanicolaou smear with manual screening 1.3 0.7-1.7 [facility] Work Phone: Thin prep Papanicolaou smear with manual screening Negative Negative [facility] Work Phone: Comment on above: Lyme Antibody Negati veNo laboratory evidence of infection with B. burgdorferi(Lyme disease). Negative results may occur in patientsrecently infected (greater than or equal to 14 days) withB. burgdorferi. If recent infection is suspected, repeattesting on a new sample collected in 7 to 14 days isrecommended. Total protein bloodon 2021 Protein [Mass/Vol] 6.5 g/dL 6.0-8.5 [facility] Work Phone: Whole blood hemoglobin A1c/t otal hemoglobin ratio (mass fraction)on 03-19-2022 HbA1c (Bld) [Mass fraction] 4.8 % 3.8-5.6 [facility] Work Phone: Comment on above: Normal < 5.7 % Predi abetic 5.7 - 6.4 % Diabetic >or= 6.5 % Please note range changes. LABORATORYOrdered By: Joan Ragland on 11-05-2021 HCG ( test) Ql Negative (11/05/21 10:03 AM) Invalid Interpretation Code AO Manual Urine SS test (u) int Not detected Invalid Interpretation Code AO Manual Urine SS No Panel Informationon 09-03 Culture Urine 10,000 - 50,000 cfu/ml Mixed growth consistent with normal urogenital sulaiman. [facility] Work Phone: CHEST 1 VIEWon 08-27-2021 CHEST 1 VIEW *FINAL Date of Service: 08/27/2021 18:35 Adm #: [id number] Reading Dr:KELVIN GARCIA Signrhea Dr: KELVIN GARCIA PROCEDURE: CHEST 1 VIEW - MXR [id number] REASON FOR EXAM: uri/cough RESULT: CHEST 1 VIEW: 08/27/2021 6:35 PM CLINICAL HISTORY: Cough for one day with history of tobacco abuse COMPARISON: None.. TECHNIQUE: 1 view of the chest was performed. FINDINGS: The lungs appear clear. The pulmonary vascularity appears normal. The cardiomediastinal contour appears normal. IMPRESSION: Normal exam. [id number] This report has been produced using speech recognition. Original Interpreting Physician: KELVIN GARCIA M.D. Original Transcribed by/Date: [facility] Aug 27 2021 6:48P Original Electronically Signed by/Date: KELVIN GARCIA M.D. Aug 27 2021 6:48P Addendum Interpreting Physician: Addendum Transcribed by/Date: NO ADDENDUM Addendum Electronically Signed by/Date: [facility] No Panel Informationon 08-27 XR Chest 1 View (Reference Range: not available) *FINAL Date of Service: 08/27/2021 18:35 Adm #: [id number] Reading Dr:KELVIN Hannon Dr: KELVIN GARCIA PROCEDURE: CHEST 1 VIEW - MXR [id number] REASON FOR EXAM: uri/cough RESULT: CHEST 1 VIEW: 08/27/2021 6:35 PM CLINICAL HISTORY: Cough for one day with history of tobacco abuse COMPARISON: None.. TECHNIQUE: 1 view of the chest was performed. FINDINGS: The lungs appear clear. The pulmonary vascularity appears normal. The cardiomediastinal contour appears normal. IMPRESSION: Normal exam. [id number] This report has been produced using speech recognition. Original Interpreting Physician: KELVIN GARCIA M.D. Original Transcribed by/Date: [facility] Aug 27 2021 6:48P Original Electronically Signed by/Date: KELVIN GARCIA M.D. Aug 27 2021 6:48P Addendum Interpreting Physician: Addendum Transcribed by/Date: NO ADDENDUM Addendum Electronically Signed by/Date: [facility] Work Phone: HCG QUALITATIVE, URINEon HCG ( test) Ql (U) Negative NEGATIVE [facility] Otheron 09-17-2020 Interpretation and review of laboratory results Abnormal [facility] URINALYSIS, MACROon 09-17-20 20 Bilirubin Ql (U) Negative NEGATIVE [facility] Clarity (U) CLEAR CLEAR [facility] Color (U) YELLOW YELLOW [facility] Glucose Test strip (U) [Mass/Vol] Negative NEGATIVE mg/dl [facility] Hemoglobin Ql (U) Negative NEGATIVE [facility] Ketones (U) [Mass/Vol] Negative NEGAT FANNY mg/dl [facility] Leukocyte esterase Test strip Ql (U) TRACE Abnormal NEGATIVE [facility] Nitrite Ql (U) Negative NEGATIVE [facility] pH (U) 8.5 [pH] High [facility] Protein Ql (U) Negative NEGATIVE mg/dl [facility] Specific gravity (U) [Rel density] 1.020 [facility] Urobilinogen (U) [Mass/Vol] 2.0 High [facility] URINE MICROSCOPICon 09-17-20 20 Bacteria LM.HPF (Urine sed) [#/Area] 1+ Abnormal NEGATIVE [facility] Casts LM.LPF (Urine sed) [#/Area] NONE NONE /LPF [facility] Crystals LM Nom (Urine sed) NONE NONE [facility] Epithelial cells LM Ql (Urine sed) 20 TO 30 /HPF [facility] Mucus Ql (Urine sed) Negative NEGATIVE [facility] RBC LM.HPF (Urine sed) [#/Area] Negative NEGATIVE /HPF [facility] Urine sediment comments LM Florentino (Urine sed) POSSIBLY CONTAMINATED SPECIMEN, CULTURE MUST BE ORDERED SEPARATELY IF DEEMED NECESSARY. [facility] WBC LM.HPF (Urine sed) [#/Area] 1 TO 5 NEGATIVE /HPF [facility] XR CHEST AP/PA AND LATon Normal chest. Workstation ID: [id number] [facility] EXAMINATION: XR CHES T AP/PA AND LAT 05/20/2020 8:35 pm HISTORY: ORDERING SYSTEM PROVIDED HISTORY: mid back/right shoulder blade region injury, TECHNOLOGIST PROVIDED HISTORY: Injury/Trauma Reason for exam: fall yesterday: right sided chest pain: back pain: right shoulder pain Cancer History: n Surgery, RadiationHistory: n Encounter Type: Initial Mechanism of injury: fall yesterday ORDERING SYSTEM PROVIDED DIAGNOSIS CODES: FINDINGS: The lungs are clear. No pneumothorax. The pulmonary vascularity, cardiac silhouette, and mediastinal contours are normal. No acute fracture is seen. dineout, [facility] [place] - 05/20/2020 9:12 PM EDT EXAMINATION: XR CHEST AP/PA AND LAT 05/20/2020 8:35 pm HISTORY: ORDERING SYSTEM PROVIDED HISTORY: mid back/right shoulder blade region injury, TECHNOLOGIST PROVIDED HISTORY: Injury/Trauma Reason for exam: fall yesterday: right sided chest pain: back pain: right shoulder pain Cancer History: n Surgery, RadiationHistory: n Encounter Type: Initial Mechanism of injury: fall yesterday ORDERING SYSTEM PROVIDED DIAGNOSIS CODES: FINDINGS: The lungs are clear. No pneumothorax. The pulmonary vascularity, cardiac silhouette, and mediastinal contours are normal. No acute fracture is seen. IMPRESSION: Normal chest. Workstation ID: [id number] [facility] XR Shoulder Right 2+ Views ( Standard)on 05-20-2020 Normal exam. Workstation ID: [id number] [facility] EXAMINATION: XR SHOULDER RIGHT 2+ VIEWS (STANDARD) 05/20/2020 8:35 pm HISTORY: ORDERING SYSTEM PROVIDED HISTORY: injury, TECHNOLOGIST PROVIDED HISTORY: Injury/Trauma Reason for exam: fall yesterday: right sided chest pain: back pain: right shoulder pain Cancer History: n Surgery, RadiationHistory: n Encounter Type: Initial Mechanism of injury: fall yesterday ORDERING SYSTEM PROVIDED DIAGNOSIS CODES: FINDINGS: No fracture, malalignment, significant arthritis or other acute bony abnormality is seen. dineout, Rad In [place] - 05/20/2020 9:12 PM EDT EXAMINATION: XR SHOULDER RIGHT 2+ VIEWS (STANDARD) 05/20/2020 8:35 pm HISTORY: ORDERING SYSTEM PROVIDED HISTORY: injury, TECHNOLOGIST PROVIDED HISTORY: Injury/Trauma Reason for exam: fall yesterday: right sided chest pain: back pain: right shoulder pain Cancer History: n Surgery, RadiationHistory: n Encounter Type: Initial Mechanism of injury: fall yesterday ORDERING SYSTEM PROVIDED DIAGNOSIS CODES: FINDINGS: No fracture, malalignment, significant arthritis or other acute bony abnormality is seen. IMPRESSION: Normal exam. Workstation ID: [id number] [facility] BASIC METABOLIC PANELon 04-24 Anion gap [Moles/Vol] 5 mmol/L Low [facility] Calcium [Mass/Vol] 8.5 mg/dL [facility] Chloride [Moles/Vol] 109 mmol/L High [facility] CO2 [Moles/Vol] 24 mmol/L [facility] Creatinine [Mass/Vol] 0.69 mg/dL [facility] GFR/1.73 sq M predicted among blacks MDRD (S/P/Bld) [Vol rate/Area] mL/min/{1.73_m2} ml/min/1.73sq .m [facility] GFR/1.73 sq M predicted among non-blacks MDRD (S/P/Bld) [Vol rate/Area] mL/min/{1.73_m2} ml/min/1.73sq .m [facility] GFR/1.73 sq M predicted among non-blacks MDRD (S/P/Bld) [Vol rate/Area] Average GFR for 20-29 years old = 116. [employer] Comment on above: Chronic Kidney disea se, GFR = <60. Kidney failure, GFR = <15. The GFR estimate is not adjusted for extreme body surface area or acute process, nor has it been validated for women or ethnic groups other than and . Glucose post fast [Mass/Vol] 95 mg/dL [employer] Comment on above: NORMAL <100 mg/dL PREDIABETES 101-126 mg/dL DIABETES 126 mg/dL or higher Interpretation and review of laboratory results Abnormal [facility] Potassium [Moles/Vol] 3.9 mmol/L [employer] Sodium [Moles/Vol] 138 mmol/L [facility] Urea nitrogen [Mass/Vol] 12 mg/dL [employer] BETA HCG, QUANT, BLOODon HCG.beta subunit Qn 0.07 m[IU]/mL [facility] Comment on above: [facility] INTERPRETIVE RANGES: NON FEMALE 0-6 MIU/ML MALE ADULT 0-2 MIU/ML 0-1 WEEK 6-50 MIU/ML 1-2 WEEKS 40-300 MIU/ML 2-3 WEEKS 100-1,000 MIU/ML 3-4 WEEKS 500-6,000 MIU/ML 1-2 MONTHS 5,000-200,000 MIU/ML 2-3 MONTHS 10,000-100,000 MIU/ML 2ND TRIMESTER 3,000-50,000 MIU/ML 3RD TRIMESTER 1,000-50,000 MIU/ML If an hCG level is inconsistent with, or unsupported by, clinical evidence, results should be confirmed by an alternate hCG method. This method may include the qualitative hCG testing of urine. CBC, EDIF, [employer] 2019 ABSOLUTE BASOPHIL COUNT 0.1 10*3/uL 0 - 0.2 10*3/uL [employer] Basophils/100 WBC (Bld) 1.2 % 0 - 2 % A [facility] Differential cell count method Nom (Bld) AUTO DIFF % [facility] Eosinophils (Bld) [#/Vol] 0.20 10*3/uL 0 - 0.7 10*3/uL [facility] Eosinophils/100 WBC (Bld) 2.4 % 0 - 11 % [employer] Erythrocyte distribution width (RBC) [Ratio] 13.8 % 11.5 - 14.5 % [employer] Hematocrit (Bld) [Volume fraction] 43.2 % 36 - 48 % [employer] Hemoglobin (Bld) [Mass/Vol] 14.5 g/dL [employer] Lymphocytes (Bld) [#/Vol] 2.00 10*3/uL 1.2 - 3.4 10*3/uL [employer] Lymphocytes/100 WBC (Bld) 27.5 % 20 - 55 % [employer] MCH (RBC) [Entitic mass] 29.9 pg 26 - 35 PG [employer] MCHC (RBC) [Mass/Vol] 33.6 g/dL [employer] MCV (RBC) [Entitic vol] 88.9 fL A [facility] Monocytes (Bld) [#/Vol] 0.5 10*3/uL 0 - 0.7 10*3/uL [facility] Monocytes/100 WBC (Bld) 7.0 % 0 - 10 % [facility] Neutrophils (Bld) [#/Vol] 4.5 10*3/uL 1.4 - 6.5 10*3/uL [facility] Neutrophils/100 WBC (Bld) 61.9 % 37 - 75 % [facility] Platelet mean volume (Bld) [Entitic vol] 8.1 fL [facility] Platelets (Bld) [#/Vol] 275 10*3/uL 130 - 400 10*3/uL [facility] RBC (Bld) [#/Vol] 4.86 10*6/uL 4 - 5.4 10*6/uL [facility] WBC (Bld) [#/Vol] 7.3 10*3/uL 3.6 - 11 10*3/uL [facility] HCG QUALITATIVE, URINEon HCG ( test) Ql (U) Negative NEGATIVE [facility] URINALYSIS, MACROon 05-05-20 20 Bilirubin Ql (U) Negative NEGATIVE [facility] Clarity (U) CLEAR CLEAR [facility] Color (U) YELLOW YELLOW [facility] Glucose Test strip (U) [Mass/Vol] Negative NEGATIVE mg/dl [facility] Hemoglobin Ql (U) LARGE Abnormal NEGATIVE [facility] Interpretation and review of laboratory results Abnormal [facility] Ketones (U) [Mass/Vol] Negative NEGAT FANNY mg/dl [facility] Leukocyte esterase Test strip Ql (U) Negative NEGATIVE [facility] Nitrite Ql (U) Negative NEGATIVE [facility] TH pH (U) 5.5 [pH] [facility] Protein Ql (U) TRACE Abnormal NEGATIVE mg/dl [facility] Specific gravity (U) [Rel density] 1.025 [facility] Urobilinogen (U) [Mass/Vol] 0.2 [facility] URINE MICROSCOPICon 05-05-20 20 Bacteria LM.HPF (Urine sed) [#/Area] Negative NEGATIVE [facility] Casts LM.LPF (Urine sed) [#/Area] NONE NONE /LPF [facility] Crystals LM Nom (Urine sed) NONE NONE [facility] Epithelial cells LM Ql (Urine sed) NONE /HPF [facility] Mucus Ql (Urine sed) Negative NEGATIVE [facility] RBC LM.HPF (Urine sed) [#/Area] Negative NEGATIVE /HPF [facility] Urine sediment comments LM Florentino (Urine sed) CULTURE CRITERIA NOT MET, NO CULTURE PERFORMED. [facility] Comment on above: CULTURE CRITERIA NOT MET, NO CULTURE PERFORMED. WBC LM.HPF (Urine sed) [#/Area] Negative NEGATIVE /HPF [facility] Vital Signs Date Time Vital Sign Value Performing Clinician Facility 06-08-2025 13:49-0400 Body mass index (BMI) [Ratio] 40.61 kg/m2 Araseli [employer] Work Phone: [facility] 06-08-2025 13:49-0400 Body weight 110.7 kg Araseli [employer] Work Phone: [facility] Comment on above: From 05/27/2025 OSH ER Visit 05-28-2025 00:08-0400 Diastolic blood pressure 62 mm[Hg] Fortino Kohli DO Work Phone: [facility] 05-28-2025 00:08-0400 Heart rate 80 /min Fortino Kohli DO Work Phone: [facility] 05-28-2025 00:08-0400 SaO2% (BldA) [Mass fraction] 99 % Fortino Kohli DO Work Phone: [facility] 05-28-2025 00:08-0400 Systolic blood pressure 134 mm[Hg] Fortino Kohli DO Work Phone: [facility] 05-28-2025 00:00-0400 Respiratory rate 20 /min Fortino Kohli DO Work Phone: [facility] 05-27-2025 18:44-0400 Body height 162.6 cm Fortino Kohli DO Work Phone: [facility] 05-27-2025 18:44-0400 Body mass index (BMI) [Ratio] 41.88 kg/m2 Fortino Kohli DO Work Phone: [facility] 05-27-2025 18:44-0400 Body weight 110.68 kg Fortino Seun DO Work Phone: [facility] 05-27-2025 18:42-0400 Body temperature 97.81 [degF] Fortino Seun DO Work Phone: [facility] 05-03-2025 17:00-0400 Body temperature 98.5 [degF] Dr. María Hernandez MD Work Phone: [facility] 05-03-2025 17:00-0400 Diastolic blood pressure 56 mm[Hg] Dr. María Hernandez MD Work Phone: [facility] 05-03-2025 17:00-0400 Heart rate 63 /min Dr. María Hernandez MD Work Phone: [phone] [place] [address] 05-03-2025 17:00-0400 Respiratory rate 18 /min Dr. María Hernandez MD Work Phone: [facility] 05-03-2025 17:00-0400 SaO2% (BldA) [Mass fraction] 100 % Dr. María Hernandez MD Work Phone: [facility] 05-03-2025 17:00-0400 Systolic blood pressure 103 mm[Hg] Dr. María Hernandez MD Work Phone: [facility] 05-03-2025 12:31-0400 Body height 165.[address] María Hernandez MD Work Phone: [facility] 05-03-2025 12:31-0400 Body mass index (BMI) [Ratio] 46.2 kg/m2 Dr. María Hernandez MD Work Phone: [facility] 05-03-2025 12:31-0400 Body weight 125.[address] María Hernandez MD Work Phone: [facility] 04-22-2025 16:08-0400 Body height 162.6 cm Claire Shane MD Work Phone: [facility] 04-22-2025 16:07-0400 Body temperature 98.49 [degF] Claire Shane MD Work Phone: [facility] 04-22-2025 16:07-0400 Diastolic blood pressure 79 mm[Hg] Claire Shane MD Work Phone: [facility] 04-22-2025 16:07-0400 Heart rate 96 /min Claire Shane MD Work Phone: [facility] 04-22-2025 16:07-0400 Respiratory rate 20 /min Claire Shane MD Work Phone: [facility] 04-22-2025 16:07-0400 SaO2% (BldA) [Mass fraction] 96 % Claire Shane MD Work Phone: [facility] 04-22-2025 16:07-0400 Systolic blood pressure 150 mm[Hg] Claire Shane MD Work Phone: [facility] 09-22-2024 15:35-0500 Diastolic blood pressure 78 mm[Hg] Infusion 1 Work Phone: [facility] 09-22-2024 15:35-0500 Heart rate 89 /min Infusion 1 Work Phone: [facility] 09-22-2024 15:35-0500 Respiratory rate 20 /min Infusion 1 Work Phone: [facility] 09-22-2024 15:35-0500 SaO2% (BldA) [Mass fraction] 100 % Infusion 1 Work Phone: [facility] 09-22-2024 15:35-0500 Systolic blood pressure 120 mm[Hg] Infusion 1 Work Phone: [facility] 09-20-2024 16:05-0500 Diastolic blood pressure 66 mm[Hg] Infusion 1 Work Phone: [facility] 09-20-2024 16:05-0500 Heart rate 99 /min Infusion 1 Work Phone: [facility] 09-20-2024 16:05-0500 Respiratory rate 20 /min Infusion 1 Work Phone: [facility] 09-20-2024 16:05-0500 SaO2% (BldA) [Mass fraction] 96 % Infusion 1 Work Phone: [facility] 09-20-2024 16:05-0500 Systolic blood pressure 133 mm[Hg] Infusion 1 Work Phone: [facility] 09-19-2024 16:15-0500 Diastolic blood pressure 87 mm[Hg] Infusion 1 Work Phone: [facility] 09-19-2024 16:15-0500 Heart rate 102 /min Infusion 1 Work Phone: [facility] 09-19-2024 16:15-0500 Respiratory rate 18 /min Infusion 1 Work Phone: [facility] 09-19-2024 16:15-0500 SaO2% (BldA) [Mass fraction] 96 % Infusion 1 Work Phone: [facility] 09-19-2024 16:15-0500 Systolic blood pressure 145 mm[Hg] Infusion 1 Work Phone: [facility] 09-18-2024 16:15-0500 Diastolic blood pressure 71 mm[Hg] Infusion 1 Work Phone: [facility] 09-18-2024 16:15-0500 Heart rate 109 /min Infusion 1 Work Phone: [facility] 09-18-2024 16:15-0500 Respiratory rate 20 /min Infusion 1 Work Phone: [facility] 09-18-2024 16:15-0500 SaO2% (BldA) [Mass fraction] 99 % Infusion 1 Work Phone: [facility] 09-18-2024 16:15-0500 Systolic blood pressure 128 mm[Hg] Infusion 1 Work Phone: [facility] 09-15-2024 12:03-0500 Body mass index (BMI) [Ratio] 40.8 kg/m2 Leonel Tankha DO Work Phone: [facility] 09-15-2024 12:03-0500 Body weight 111.22 kg Leonel Tankha DO Work Phone: [facility] 08-22-2024 22:35-0400 Diastolic blood pressure 57 mm[Hg] María Hernandez MD Work Phone: [facility] 08-22-2024 22:35-0400 Heart rate 98 /min María Hernandez MD Work Phone: [facility] 08-22-2024 22:35-0400 SaO2% (BldA) [Mass fraction] 97 % María Hernandez MD Work Phone: [facility] 08-22-2024 22:35-0400 Systolic blood pressure 108 mm[Hg] María Hernandez MD Work Phone: [facility] 08-22-2024 19:45-0400 Body height 165.1 cm María Hernandez MD Work Phone: [facility] 08-22-2024 19:45-0400 Body mass index (BMI) [Ratio] 40.27 kg/m2 María Hernandez MD Work Phone: [facility] 08-22-2024 19:45-0400 Body weight 109.77 kg María Hernandez MD Work Phone: [facility] 08-22-2024 19:44-0400 Body temperature 97.7 [degF] María Hernandez MD Work Phone: [facility] 08-22-2024 19:44-0400 Respiratory rate 18 /min María Hernandez MD Work Phone: [facility] 08-10-2024 10:21-0400 Body mass index (BMI) [Ratio] 36.61 kg/m2 Leonel Tankha DO Work Phone: [facility] 08-10-2024 10:21-0400 Body weight 99.79 kg Leonel Del Cid DO Work Phone: [facility] 08-04-2024 09:00-0400 Body temperature 98.4 [degF] Meron Jorgensen MD Work Phone: [facility] 08-04-2024 09:00-0400 Diastolic blood pressure 62 mm[Hg] Meron Jorgensen MD Work Phone: [facility] 08-04-2024 09:00-0400 Heart rate 112 /min Meron Jorgensen MD Work Phone: [facility] 08-04-2024 09:00-0400 Respiratory rate 16 /min Meron Jorgensen MD Work Phone: [facility] 08-04-2024 09:00-0400 SaO2% (BldA) [Mass fraction] 98 % Meron Jorgensen MD Work Phone: [facility] 08-04-2024 09:00-0400 Systolic blood pressure 114 mm[Hg] Meron Jorgensen MD Work Phone: [facility] 08-02-2024 21:29-0400 Body height 165.1 cm Meron Jorgensen MD Work Phone: [facility] 08-02-2024 21:29-0400 Body mass index (BMI) [Ratio] 41.27 kg/m2 Meron Jorgensen MD Work Phone: [facility] 08-02-2024 21:29-0400 Body weight 112.49 kg Meron Jorgensen MD Work Phone: [facility] 08-01-2024 22:00-0400 Body temperature 98.8 [degF] Anil Witt MD Work Phone: [facility] 08-01-2024 22:00-0400 Diastolic blood pressure 68 mm[Hg] Anil Witt MD Work Phone: [employer] 08-01-2024 22:00-0400 Heart rate 93 /min Anil Witt MD Work Phone: [employer] 08-01-2024 22:00-0400 Respiratory rate 28 /min Anil Witt MD Work Phone: [employer] 08-01-2024 22:00-0400 SaO2% (BldA) [Mass fraction] 96 % Anil Witt MD Work Phone: [employer] 08-01-2024 22:00-0400 Systolic blood pressure 122 mm[Hg] Anil Witt MD Work Phone: [employer] 08-01-2024 19:23-0400 Body height 165.1 cm Anil Witt MD Work Phone: [employer] 08-01-2024 19:23-0400 Body mass index (BMI) [Ratio] 41.27 kg/m2 Anil Witt MD Work Phone: [employer] 08-01-2024 19:23-0400 Body weight 112.49 kg Anil Witt MD Work Phone: [employer] 07-29-2024 17:19-0400 Respiratory rate 16 /min Indra Foskey DO Work Phone: [facility] 07-29-2024 17:17-0400 Body temperature 98.6 [degF] Indra Foskey DO Work Phone: [facility] 07-29-2024 17:17-0400 Diastolic blood pressure 68 mm[Hg] Indra Foskey DO Work Phone: [employer] 07-29-2024 17:17-0400 Heart rate 113 /min Indra Foskey DO Work Phone: [employer] 07-29-2024 17:17-0400 SaO2% (BldA) [Mass fraction] 98 % Indra Foskey DO Work Phone: [facility] 07-29-2024 17:17-0400 Systolic blood pressure 121 mm[Hg] Indra Santos DO Work Phone: [facility] 07-25-2024 18:15-0400 Diastolic blood pressure 67 mm[Hg] María Hernandez MD Work Phone: [facility] 07-25-2024 18:15-0400 Heart rate 90 /min María Hernandez MD Work Phone: [employer] [facility] 07-25-2024 18:15-0400 Respiratory rate 16 /min María Hernandez MD Work Phone: [facility] 07-25-2024 18:15-0400 SaO2% (BldA) [Mass fraction] 100 % María Hernandez MD Work Phone: [facility] 07-25-2024 18:15-0400 Systolic blood pressure 110 mm[Hg] María Hernandez MD Work Phone: [facility] 07-25-2024 15:24-0400 Body height 165.1 cm María Hernandez MD Work Phone: [facility] 07-25-2024 15:24-0400 Body mass index (BMI) [Ratio] 36.61 kg/m2 María Hernandez MD Work Phone: [employer] [facility] 07-25-2024 15:24-0400 Body weight 99.79 kg María Hernandez MD Work Phone: [facility] 07-25-2024 15:23-0400 Body temperature 97.7 [degF] María Hernandez MD Work Phone: [facility] 07-23-2024 13:48-0400 Diastolic blood pressure 71 mm[Hg] Meron Jorgensen MD [facility] 07-23-2024 13:48-0400 Heart rate 107 /min Meron Jorgensen MD Work Phone: [facility] 07-23-2024 13:48-0400 Respiratory rate 16 /min Meron Jorgensen MD Work Phone: [facility] 07-23-2024 13:48-0400 SaO2% (BldA) [Mass fraction] 97 % Meron Jorgensen MD Work Phone: [facility] 07-23-2024 13:48-0400 Systolic blood pressure 124 mm[Hg] Meron Jorgensen MD Work Phone: [facility] 07-23-2024 11:42-0400 Body temperature 98.6 [degF] Meron Jorgensen MD Work Phone: [facility] 07-23-2024 11:40-0400 Body height 165.1 cm Meron Jorgensen MD Work Phone: [facility] 07-23-2024 11:40-0400 Body mass index (BMI) [Ratio] 36.61 kg/m2 Meron Jorgensen MD Work Phone: [facility] 07-23-2024 11:40-0400 Body weight 99.79 kg Meron Jorgensen MD Work Phone: [facility] 06-30-2024 15:34-0400 Body mass index (BMI) [Ratio] 37.57 kg/m2 [place] Cathleen PA-C Work Phone: [facility] 06-30-2024 15:34-0400 Body weight 102.4 kg Lucas Cathleen PA-C Work Phone: [facility] 06-30-2024 15:34-0400 Diastolic blood pressure 74 mm[Hg] Lucas Cathleen PA-C Work Phone: [facility] 06-30-2024 15:34-0400 Heart rate 117 /min [place] Cathleen PA-C Work Phone: [facility] 06-30-2024 15:34-0400 SaO2% (BldA) [Mass fraction] 100 % Lucas Webberir PA-C Work Phone: [facility] 06-30-2024 15:34-0400 Systolic blood pressure 124 mm[Hg] [place] Cathleen PA-C Work Phone: [facility] 06-02-2024 14:15-0400 Diastolic blood pressure 80 mm[Hg] Infusion 3 Work Phone: [facility] 06-02-2024 14:15-0400 Heart rate 110 /min Infusion 3 Work Phone: [facility] 06-02-2024 14:15-0400 Respiratory rate 16 /min Infusion 3 Work Phone: [facility] 06-02-2024 14:15-0400 SaO2% (BldA) [Mass fraction] 98 % Infusion 3 Work Phone: [facility] 06-02-2024 14:15-0400 Systolic blood pressure 128 mm[Hg] Infusion 3 Work Phone: [facility] 06-01-2024 14:10-0400 Diastolic blood pressure 73 mm[Hg] Infusion 3 Work Phone: [facility] 06-01-2024 14:10-0400 Heart rate 100 /min Infusion 3 Work Phone: [facility] 06-01-2024 14:10-0400 Respiratory rate 16 /min Infusion 3 Work Phone: [facility] 06-01-2024 14:10-0400 SaO2% (BldA) [Mass fraction] 99 % Infusion 3 Work Phone: [facility] 06-01-2024 14:10-0400 Systolic blood pressure 133 mm[Hg] Infusion 3 Work Phone: [facility] 05-31-2024 13:15-0400 Diastolic blood pressure 80 mm[Hg] Infusion 3 Work Phone: [facility] 05-31-2024 13:15-0400 Heart rate 95 /min Infusion 3 Work Phone: [facility] 05-31-2024 13:15-0400 Respiratory rate 16 /min Infusion 3 Work Phone: [facility] 05-31-2024 13:15-0400 SaO2% (BldA) [Mass fraction] 98 % Infusion 3 Work Phone: [facility] 05-31-2024 13:15-0400 Systolic blood pressure 140 mm[Hg] Infusion 3 Work Phone: [facility] 05-30-2024 14:30-0400 Diastolic blood pressure 81 mm[Hg] Infusion 3 Work Phone: [facility] 05-30-2024 14:30-0400 Heart rate 89 /min Infusion 3 Work Phone: [facility] 05-30-2024 14:30-0400 Respiratory rate 15 /min Infusion 3 Work Phone: [facility] 05-30-2024 14:30-0400 SaO2% (BldA) [Mass fraction] 99 % Infusion 3 Work Phone: [facility] 05-30-2024 14:30-0400 Systolic blood pressure 150 mm[Hg] Infusion 3 Work Phone: [facility] 05-29-2024 13:55-0400 Diastolic blood pressure 66 mm[Hg] Infusion 3 Work Phone: [facility] 05-29-2024 13:55-0400 Heart rate 76 /min Infusion 3 Work Phone: [facility] 05-29-2024 13:55-0400 Respiratory rate 19 /min Infusion 3 Work Phone: [facility] 05-29-2024 13:55-0400 SaO2% (BldA) [Mass fraction] 99 % Infusion 3 Work Phone: [facility] 05-29-2024 13:55-0400 Systolic blood pressure 140 mm[Hg] Infusion 3 Work Phone: [facility] 05-18-2024 14:03-0400 Body mass index (BMI) [Ratio] 35.7 kg/m2 Lucas Cathleen PA-C Work Phone: [facility] 05-18-2024 14:03-0400 Body weight 97.3 kg [place] Cathleen PA-C Work Phone: [facility] 05-18-2024 14:03-0400 Diastolic blood pressure 93 mm[Hg] Lucas Cathleen PA-C Work Phone: [facility] 05-18-2024 14:03-0400 Heart rate 99 /min Lucas Cathleen PA-C Work Phone: [facility] 05-18-2024 14:03-0400 SaO2% (BldA) [Mass fraction] 99 % [place] Cathleen PA-C Work Phone: [facility] 05-18-2024 14:03-0400 Systolic blood pressure 147 mm[Hg] [place] Cathleen PA-C Work Phone: [facility] 04-20-2024 16:04-0400 Body height 165.1 cm Jing Raffay PA-C Work Phone: [facility] 04-20-2024 16:04-0400 Body mass index (BMI) [Ratio] 36.32 kg/m2 Jing Raffay PA-C Work Phone: [facility] 04-20-2024 16:04-0400 Body weight 99 kg Jing Raffay PA-C Work Phone: [facility] 04-20-2024 16:04-0400 Diastolic blood pressure 74 mm[Hg] Jing Raffay PA-C Work Phone: [facility] 04-20-2024 16:04-0400 Heart rate 116 /min Jing Raffay PA-C Work Phone: [facility] 04-20-2024 16:04-0400 Systolic blood pressure 133 mm[Hg] Jing Raffay PA-C Work Phone: [facility] 04-06-2024 00:30-0400 Diastolic blood pressure 77 mm[Hg] Bobby Singh MD Work Phone: 1(255)171-589875 [place] [address] 04-06-2024 00:30-0400 Heart rate 69 /min Bobby Singh MD Work Phone: 5(045)970-911275 [place] [address] 04-06-2024 00:30-0400 Respiratory rate 16 /min Bobby Singh MD Work Phone: 4(822)[phone] [place] [address] 04-06-2024 00:30-0400 SaO2% (BldA) [Mass fraction] 96 % Bobby Singh MD Work Phone: 2(655)215-262975 [place] [address] 04-06-2024 00:30-0400 Systolic blood pressure 126 mm[Hg] Bobby Singh MD Work Phone: 0(121)[phone] [place] [address] 04-05-2024 18:59-0400 Body height 165.1 cm Bobyb Singh MD Work Phone: 9(325)965-688275 [place] [address] 04-05-2024 18:59-0400 Body mass index (BMI) [Ratio] 33.28 kg/m2 Bobby Snigh MD Work Phone: 9(015)767-233375 [place] [address] 04-05-2024 18:59-0400 Body weight 90.72 kg Bobby Singh MD Work Phone: 7(034)[phone] [place] [address] 04-05-2024 18:58-0400 Body temperature 98.29 [degF] Bobby Singh MD Work Phone: 7(288)187-209875 [place] [address] 03-10-2024 15:25-0400 Body height 165.1 cm Danay Larios MD Work Phone: [facility] 03-10-2024 15:25-0400 Body mass index (BMI) [Ratio] 36.58 kg/m2 Danay Larios MD Work Phone: [facility] 03-10-2024 15:25-0400 Body weight 99.7 kg Danay Larios MD Work Phone: [facility] 03-10-2024 15:25-0400 Diastolic blood pressure 70 mm[Hg] Danay Larios MD Work Phone: [facility] 03-10-2024 15:25-0400 Heart rate 109 /min Danay Larios MD Work Phone: [facility] 03-10-2024 15:25-0400 Respiratory rate 18 /min Danay Larios MD Work Phone: [facility] 03-10-2024 15:25-0400 SaO2% (BldA) [Mass fraction] 99 % Danay Larios MD Work Phone: [facility] 03-10-2024 15:25-0400 Systolic blood pressure 112 mm[Hg] Danay Larios MD Work Phone: [facility] 02-15-2024 22:51-0400 Diastolic blood pressure 72 mm[Hg] Cameron Avilez DO Work Phone: [facility] 02-15-2024 22:51-0400 Heart rate 82 /min Cameron Avilez DO Work Phone: [facility] 02-15-2024 22:51-0400 Respiratory rate 16 /min Cameron Avilez DO Work Phone: [facility] 02-15-2024 22:51-0400 SaO2% (BldA) [Mass fraction] 94 % Cameron Avilez DO Work Phone: [facility] 02-15-2024 22:51-0400 Systolic blood pressure 147 mm[Hg] Cameron Avilez DO Work Phone: [facility] 02-15-2024 20:28-0400 Body height 165.1 cm Cameron Avilez DO Work Phone: [facility] 02-15-2024 20:28-0400 Body mass index (BMI) [Ratio] 33.28 kg/m2 Cameron Avilez DO Work Phone: [facility] 02-15-2024 20:28-0400 Body temperature 98.6 [degF] Cameron Avilez DO Work Phone: [facility] 02-15-2024 20:28-0400 Body weight 90.72 kg Cameron Avilez DO Work Phone: [facility] 01-13-2024 01:31-0400 Body temperature 98 [degF] [facility] 01-13-2024 01:31-0400 Diastolic blood pressure 79 mm[Hg] [facility] 01-13-2024 01:31-0400 Heart rate 81 /min [facility] 01-13-2024 01:31-0400 Respiratory rate 16 /min [facility] 01-13-2024 01:31-0400 SaO2% (BldA) [Mass fraction] 14 % [facility] 01-13-2024 01:31-0400 Systolic blood pressure 132 mm[Hg] [facility] 01-12-2024 22:22-0400 Body height 165.1 cm [facility] 01-12-2024 22:22-0400 Body mass index (BMI) [Ratio] 36.8 kg/m2 [facility] 01-12-2024 22:22-0400 Body weight 100.32 kg [facility] 12-21-2023 14:42-0500 Diastolic blood pressure 90 mm[Hg] Claire Flanagan DO Work Phone: [facility] 12-21-2023 14:42-0500 Systolic blood pressure 160 mm[Hg] Claire Flanagan DO Work Phone: [facility] 12-21-2023 14:22-0500 Heart rate 150 /min Claire Flanagan DO Work Phone: [facility] 12-21-2023 14:13-0500 Body height 165.1 cm Claire Flanagan DO Work Phone: [facility] 12-21-2023 14:13-0500 Body weight 101 kg Claire Flanagan DO Work Phone: [facility] 12-14-2023 14:29-0500 Body height 165.1 cm Danay Larios MD Work Phone: [facility] 12-14-2023 14:29-0500 Body weight 101.15 kg Danay Larios MD Work Phone: [facility] 12-14-2023 14:29-0500 Diastolic blood pressure 74 mm[Hg] Danay Larios MD Work Phone: [facility] 12-14-2023 14:29-0500 Heart rate 108 /min Danay Larios MD Work Phone: [facility] 12-14-2023 14:29-0500 Respiratory rate 20 /min Danay Larios MD Work Phone: [facility] 12-14-2023 14:29-0500 Systolic blood pressure 118 mm[Hg] Danay Larios MD Work Phone: [facility] 09-21-2023 16:16-0500 Diastolic blood pressure 76 mm[Hg] Dr. Kayley Dobson Work Phone: [facility] 09-21-2023 16:16-0500 Heart rate 89 /min Dr. Kayley Dobson Work Phone: [facility] 09-21-2023 16:16-0500 Systolic blood pressure 103 mm[Hg] Dr. Kayley Dobson Work Phone: [facility] 09-21-2023 15:46-0500 Body temperature 96.6 [degF] Dr. Kayley Dobson Work Phone: [facility] 09-21-2023 15:46-0500 Respiratory rate 18 /min Dr. Kayley Dobson Work Phone: [facility] 09-21-2023 15:46-0500 SaO2% (BldA) [Mass fraction] 99 % Dr. Kayley Dobson Work Phone: [facility] 09-21-2023 13:56-0500 Body height 165.[address] Kayley Dobson Work Phone: [facility] 09-21-2023 13:56-0500 Body mass index (BMI) [Ratio] 37.2 kg/m2 Dr. Kayley Dobson Work Phone: [facility] 09-21-2023 13:56-0500 Body weight 101.[address] Kayley Dobson Work Phone: [facility] 08-30-2023 15:45-0500 Heart rate 86 /min Harman Oliver MD Work Phone: [facility] 08-30-2023 15:45-0500 Respiratory rate 34 /min Harman Oliver MD Work Phone: [facility] 08-30-2023 15:45-0500 SaO2% (BldA) [Mass fraction] 99 % Harman Oliver MD Work Phone: [facility] 08-30-2023 15:40-0500 Diastolic blood pressure 94 mm[Hg] Harman Oliver MD Work Phone: [facility] 08-30-2023 15:40-0500 Systolic blood pressure 146 mm[Hg] Harman Oliver MD Work Phone: [facility] 08-30-2023 15:06-0500 Body temperature 98.1 [degF] Harman Oliver MD Work Phone: [facility] 08-30-2023 13:16-0500 Body height 165.1 cm Harman Oliver MD Work Phone: [facility] 08-30-2023 13:16-0500 Body weight 99.79 kg Harman Oliver MD Work Phone: [facility] 08-17-2023 15:26-0400 Diastolic Blood Pressure Non-Invasive 79 1 JING DAISLVA DO [facility] 08-17-2023 15:26-0400 Heart rate 88 /min JING DASILVA DO [facility] 08-17-2023 15:26-0400 Respiratory rate 18 /min JING DASILVA DO [facility] 08-17-2023 15:26-0400 Systolic Blood Pressure Non-Invasive 128 1 JING DASILVA DO [facility] 08-17-2023 13:41-0400 Diastolic Blood Pressure Non-Invasive 86 1 JING DASILVA DO [facility] 08-17-2023 13:41-0400 Heart rate 98 /min JING DASILVA DO [facility] 08-17-2023 13:41-0400 Respiratory rate 17 /min JING DASILVA DO [facility] 08-17-2023 13:41-0400 Systolic Blood Pressure Non-Invasive 142 1 JING DASILVA DO [facility] 08-17-2023 11:05-0400 Body temperature 98.6 [degF] JING DASILVA DO [facility] 08-17-2023 11:05-0400 Body weight 102.4 kg JING DASILVA DO [facility] 08-17-2023 11:05-0400 Diastolic Blood Pressure Non-Invasive 81 1 JING DASILVA DO [facility] 08-17-2023 11:05-0400 Heart rate 100 /min JING DASILVA DO [facility] 08-17-2023 11:05-0400 Respiratory rate 18 /min JING DASILVA DO [facility] 08-17-2023 11:05-0400 Systolic Blood Pressure Non-Invasive 145 1 JING DASILVA DO [facility] 06-08-2023 14:42-0400 Body mass index (BMI) [Ratio] 36.9 kg/m2 Dr. Kayley Dobson Work Phone: [facility] 06-08-2023 14:42-0400 Body weight 100.[address] Kayley Dobson Work Phone: [facility] 05-24-2023 14:22-0400 Body height 165.1 cm Shaina Bolton APRN.[employer] Work Phone: [facility] 05-24-2023 14:22-0400 Body temperature 98.01 [degF] Shaina Bolton APRN.[employer] Work Phone: [facility] 05-24-2023 14:22-0400 Body weight 100.11 kg Shaina Bolton APRN.[employer] Work Phone: [facility] 05-24-2023 14:22-0400 Diastolic blood pressure 73 mm[Hg] Shaina Bolton APRN.[employer] Work Phone: [facility] 05-24-2023 14:22-0400 Heart rate 58 /min Shaina Bolton APRN.[employer] Work Phone: [facility] 05-24-2023 14:22-0400 SaO2% (BldA) [Mass fraction] 97 % Shaina Bolton APRN.[employer] Work Phone: [facility] 05-24-2023 14:22-0400 Systolic blood pressure 133 mm[Hg] Shaina Bolton APRN.[employer] Work Phone: [facility] 05-23-2023 00:35-0400 Heart rate 105 /min [facility] 05-23-2023 00:35-0400 Respiratory rate 15 /min [facility] 05-23-2023 00:35-0400 SaO2% (BldA) [Mass fraction] 97 % [facility] 05-22-2023 23:35-0400 Body mass index (BMI) [Ratio] 38.7 kg/m2 [facility] 05-22-2023 23:35-0400 Body weight 105.6 kg [facility] 05-22-2023 23:30-0400 Body height 165.1 cm [facility] 05-22-2023 23:30-0400 Body temperature 97.7 [degF] [facility] 05-22-2023 23:30-0400 Diastolic blood pressure 131 mm[Hg] [facility] 05-22-2023 23:30-0400 Systolic blood pressure 158 mm[Hg] [facility] 01-20-2023 13:03-0400 Body height 165.1 cm Pacc 2 Work Phone: [facility] 01-20-2023 13:03-0400 Body weight 99.79 kg Pacc 2 Work Phone: [facility] 01-20-2023 13:03-0400 Heart rate 92 /min Pacc 2 Work Phone: [facility] 01-13-2023 16:14-0400 Body height 165.[address] Kayley Dobson Work Phone: [facility] 01-13-2023 16:14-0400 Body mass index (BMI) [Ratio] 37.8 kg/m2 Dr. Kayley Dobson Work Phone: [facility] 01-13-2023 16:14-0400 Body temperature 96.4 [degF] Dr. Kayley Dobson Work Phone: [facility] 01-13-2023 16:14-0400 Body weight 102.[address] Kayley Dobson Work Phone: [facility] 01-13-2023 16:14-0400 Diastolic blood pressure 84 mm[Hg] Dr. Kayley Dobson Work Phone: [facility] 01-13-2023 16:14-0400 Heart rate 115 /min Dr. Kayley Dobson Work Phone: [facility] 01-13-2023 16:14-0400 Respiratory rate 18 /min Dr. Kayley Dobson Work Phone: [facility] 01-13-2023 16:14-0400 SaO2% (BldA) [Mass fraction] 98 % Dr. Kayley Dobson Work Phone: [facility] 01-13-2023 16:14-0400 Systolic blood pressure 126 mm[Hg] Dr. Kayley Dobson Work Phone: [facility] 01-05-2023 13:24-0400 Diastolic blood pressure 70 mm[Hg] Oz Rodrigueskylie DO Work Phone: [facility] 01-05-2023 13:24-0400 Heart rate 105 /min Oz Jones DO Work Phone: [facility] 01-05-2023 13:24-0400 Systolic blood pressure 139 mm[Hg] Oz Jones DO Work Phone: [facility] 01-05-2023 12:58-0400 Body height 165.1 cm Claire Flanagan DO Work Phone: [facility] 01-05-2023 12:58-0400 Body weight 102 kg Claire De Oliveirae DO Work Phone: [facility] 01-05-2023 12:58-0400 Diastolic blood pressure 70 mm[Hg] Claire De Oliveirae DO Work Phone: [facility] 01-05-2023 12:58-0400 Heart rate 105 /min Claire De Oliveirae DO Work Phone: [facility] 01-05-2023 12:58-0400 Systolic blood pressure 139 mm[Hg] Claire Flanagan DO Work Phone: [facility] 12-10-2022 14:25-0500 Body mass index (BMI) [Ratio] 36.5 kg/m2 Dr. Kayley Dobson Work Phone: [facility] 12-10-2022 14:25-0500 Body temperature 98.4 [degF] Dr. Kayley Dobson Work Phone: [facility] 12-10-2022 14:25-0500 Body weight 99.[address] Kayley Dobson Work Phone: [facility] 12-10-2022 14:25-0500 Diastolic blood pressure 67 mm[Hg] Dr. Kayley Dobson Work Phone: [facility] 12-10-2022 14:25-0500 Heart rate 100 /min Dr. Kayley Dobson Work Phone: [facility] 12-10-2022 14:25-0500 Respiratory rate 17 /min Dr. Kayley Dobson Work Phone: [facility] 12-10-2022 14:25-0500 SaO2% (BldA) [Mass fraction] 98 % Dr. Kayley Dobson Work Phone: [facility] 12-10-2022 14:25-0500 Systolic blood pressure 98 mm[Hg] Dr. Kayley Dobson Work Phone: [facility] 11-19-2022 10:24-0500 Body mass index (BMI) [Ratio] 35.9 kg/m2 Dr. Kayley Dobson Work Phone: [facility] 11-19-2022 10:24-0500 Body temperature 98.2 [degF] Dr. Kayley Dobson Work Phone: [facility] 11-19-2022 10:24-0500 Body weight [address] Kayley Dobson Work Phone: [facility] 11-19-2022 10:24-0500 Diastolic blood pressure 73 mm[Hg] Dr. Kayley Dobson Work Phone: [facility] 11-19-2022 10:24-0500 Heart rate 93 /min Dr. Kayley Dobson Work Phone: [facility] 11-19-2022 10:24-0500 Respiratory rate 17 /min Dr. Kayley Dobson Work Phone: [facility] 11-19-2022 10:24-0500 SaO2% (BldA) [Mass fraction] 100 % Dr. Kayley Dobson Work Phone: [facility] 11-19-2022 10:24-0500 Systolic blood pressure 103 mm[Hg] Dr. Kayley Dobson Work Phone: [facility] 07-14-2022 16:00-0400 Diastolic blood pressure 74 mm[Hg] Kayley Dobson Other Phone: [facility] 07-14-2022 16:00-0400 Heart rate 71 /min Kayley Dobson Other Phone: [facility] 07-14-2022 16:00-0400 Respiratory rate 19 /min Kayley Dobson Other Phone: [facility] 07-14-2022 16:00-0400 SaO2% (BldA) [Mass fraction] 98 % Kayley Dobson Other Phone: [facility] 07-14-2022 16:00-0400 Systolic blood pressure 112 mm[Hg] Kayley Dobson Other Phone: [facility] 07-14-2022 15:19-0400 Body height 165.1 cm Kayley Dobson Other Phone: [facility] 07-14-2022 15:19-0400 Body temperature 97.52 [degF] Kayley Dobson Other Phone: [facility] 07-14-2022 15:19-0400 Body weight 90.2 kg Kayley Dobson Other Phone: [facility] 06-02-2022 22:08-0400 Diastolic blood pressure 58 mm[Hg] Dr. Kayley Dosbon Work Phone: [facility] Work Phone: 06-02-2022 22:08-0400 Heart rate 97 /min Dr. Kayley Dobson Work Phone: [facility] Work Phone: 06-02-2022 22:08-0400 Respiratory rate 18 /min Dr. Kayley Dobson Work Phone: [facility] Work Phone: 06-02-2022 22:08-0400 SaO2% (BldA) [Mass fraction] 98 % Dr. Kayley Dobson Work Phone: [facility] Work Phone: 06-02-2022 22:08-0400 Systolic blood pressure 102 mm[Hg] Dr. Kayley Dobson Work Phone: [facility] Work Phone: 06-02-2022 19:57-0400 Body height 165.[address] Kayley Dobson Work Phone: [facility] Work Phone: 06-02-2022 19:57-0400 Body mass index (BMI) [Ratio] 36.6 kg/m2 Dr. Kayley Dobson Work Phone: [facility] Work Phone: 06-02-2022 19:57-0400 Body temperature 96.9 [degF] Dr. Kayley Dobson Work Phone: [facility] Work Phone: 06-02-2022 19:57-0400 Body weight 99.[address] Kayley Dobson Work Phone: [facility] Work Phone: 05-09-2022 02:54-0400 Diastolic blood pressure 81 mm[Hg] Dr. Kayley Dobson Work Phone: [facility] Work Phone: 05-09-2022 02:54-0400 Heart rate 97 /min Dr. Kayley Dobson Work Phone: [facility] Work Phone: 05-09-2022 02:54-0400 Respiratory rate 16 /min Dr. Kayley Dobson Work Phone: [facility] Work Phone: 05-09-2022 02:54-0400 SaO2% (BldA) [Mass fraction] 99 % Dr. Kayley Dobson Work Phone: [facility] Work Phone: 05-09-2022 02:54-0400 Systolic blood pressure 118 mm[Hg] Dr. Kayley Dobson Work Phone: [facility] Work Phone: 05-09-2022 00:02-0400 Body height 165.[address] Kayley Dobson Work Phone: [facility] Work Phone: 05-09-2022 00:02-0400 Body mass index (BMI) [Ratio] 34.9 kg/m2 Dr. Kayley Dobson Work Phone: [facility] Work Phone: 05-09-2022 00:02-0400 Body temperature 96.9 [degF] Dr. Kayley Dobson Work Phone: [facility] Work Phone: 05-09-2022 00:02-0400 Body weight 95.[address] Kayley Dobson Work Phone: [facility] Work Phone: 03-03-2022 17:06-0400 Body height 165.1 cm [facility] Work Phone: 03-03-2022 17:06-0400 Body mass index (BMI) [Ratio] 32.4 kg/m2 [facility] Work Phone: 03-03-2022 17:06-0400 Body temperature 96.8 [degF] [facility] Work Phone: 03-03-2022 17:06-0400 Body weight 88.45 kg [facility] Work Phone: 03-03-2022 17:06-0400 Diastolic blood pressure 75 mm[Hg] [facility] Work Phone: 03-03-2022 17:06-0400 Heart rate 108 /min [facility] Work Phone: 03-03-2022 17:06-0400 Respiratory rate 16 /min [facility] Work Phone: 03-03-2022 17:06-0400 SaO2% (BldA) [Mass fraction] 97 % [facility] Work Phone: 03-03-2022 17:06-0400 Systolic blood pressure 113 mm[Hg] [facility] Work Phone: 11-05-2021 13:45-0500 Body temperature 96.98 [degF] DR JESSICA MEDLEY MD [facility] 11-05-2021 13:45-0500 Diastolic blood pressure 83 mm[Hg] DR JESSICA MEDLEY MD [facility] 11-05-2021 13:45-0500 Heart rate 61 /min DR JESSICA MEDLEY MD [facility] 11-05-2021 13:45-0500 Respiratory rate 16 /min DR JESSICA MEDLEY MD [facility] 11-05-2021 13:45-0500 Systolic blood pressure 135 mm[Hg] DR JESSICA MEDLEY MD [facility] 11-05-2021 13:32-0500 Diastolic Blood Pressure NBP [address] JESSICA MEDLEY MD [facility] 11-05-2021 13:32-0500 Heart rate 75 /min DR JESSICA MEDLEY MD [facility] 11-05-2021 13:32-0500 Respiratory rate 14 /min DR JESSICA MEDLEY MD [facility] 11-05-2021 13:32-0500 Systolic Blood Pressure NBP [address] JESSICA MEDLEY MD [facility] 11-05-2021 13:15-0500 Diastolic Blood Pressure NBP [address] JESSICA MEDLEY MD [facility] 11-05-2021 13:15-0500 Heart rate 58 /min DR JESSICA MEDLEY MD [facility] 11-05-2021 13:15-0500 Respiratory rate 14 /min DR JESSICA MEDLEY MD [facility] 11-05-2021 13:15-0500 Systolic Blood Pressure NBP [address] JESSICA MEDLEY MD [facility] 11-05-2021 13:00-0500 Diastolic Blood Pressure NBP [address] JESSICA MEDLEY MD [facility] 11-05-2021 13:00-0500 Heart rate 62 /min DR JESSICA MEDLEY MD [facility] 11-05-2021 13:00-0500 Systolic Blood Pressure NBP [address] JESSICA MEDLEY MD [facility] 11-05-2021 12:28-0500 Body temperature 96.8 [degF] DR JESSICA MEDLEY MD [facility] 11-05-2021 10:08-0500 Body height 165.[address] JESSICA MEDLEY MD [facility] 11-05-2021 10:08-0500 Body temperature 98.24 [degF] DR JESSICA MEDLEY MD [facility] 11-05-2021 10:08-0500 Body weight 93.[address] JESSICA MEDLEY MD [facility] 11-05-2021 10:08-0500 Heart rate 86 /min DR JESSICA MEDLEY MD [facility] 10-27-2021 16:44-0500 Body height 165.1 cm REGINA BAEZA MD [facility] 10-27-2021 16:44-0500 Body temperature 98.06 [degF] REGINA BAEZA MD [facility] 10-27-2021 16:44-0500 Body weight 93.2 kg REGINA BAEZA MD [facility] 10-27-2021 16:44-0500 Diastolic blood pressure 76 mm[Hg] REGINA BAEZA MD [facility] 10-27-2021 16:44-0500 Heart rate 84 /min REGINA BAEZA MD [facility] 10-27-2021 16:44-0500 Respiratory rate 18 /min REGINA BAEZA MD [facility] 10-27-2021 16:44-0500 Systolic blood pressure 122 mm[Hg] REGINA BAEZA MD [facility] 08-27-2021 19:33-0400 Body mass index (BMI) [Ratio] 35.1 kg/m2 MD Soha Ovalle MD [facility] 08-27-2021 19:33-0400 Body weight 95.9 kg MD Soha Ovalle MD [facility] 09-17-2020 16:19-0500 BMI (Body Mass Index) 31.62 kg/m2 [facility] 09-17-2020 16:19-0500 Body weight 86.18 kg [facility] 09-17-2020 16:19-0500 Height 165.1 cm [facility] 09-17-2020 16:16-0500 Body Temperature 97.59 [degF] [facility] 09-17-2020 16:16-0500 BP Diastolic 56 mm[Hg] Kayley [facility] 09-17-2020 16:16-0500 BP Systolic 116 mm[Hg] Kayley [facility] 09-17-2020 16:16-0500 Pulse (Heart Rate) 99 /min [facility] 09-17-2020 16:16-0500 Pulse Oximetry 100 % [facility] 09-17-2020 16:15-0500 Respiratory Rate 18 /min Kayley [facility] 05-20-2020 21:39-0400 Respiratory Rate 16 /min [facility] 05-20-2020 19:31-0400 Body Temperature 98.91 [degF] [facility] 05-20-2020 19:12-0400 BP Diastolic 72 mm[Hg] [facility] 05-20-2020 19:12-0400 BP Systolic 110 mm[Hg] [facility] 05-20-2020 19:12-0400 Pulse (Heart Rate) 94 /[facility] 05-20-2020 19:12-0400 Pulse Oximetry 97 % [facility] 05-05-2020 21:34-0400 BP Diastolic 69 mm[Hg] [facility] 05-05-2020 21:34-0400 BP Systolic 109 mm[Hg] [facility] 05-05-2020 21:34-0400 Pulse (Heart Rate) 78 /min [facility] 05-05-2020 21:34-0400 Pulse Oximetry 98 % [facility] 05-05-2020 21:34-0400 Respiratory Rate 18 /min [facility] 05-05-2020 19:25-0400 Body Temperature 97.9 [degF] [facility] Encounters Encounter Date Encounter Type Care Provider Facility Start: 06-08-2025 End: 06-08-2025 Office outpatient visit 15 minutes Araseli Ramos APRN.CNP Work Phone: Neurology Pain Comment on above: Chronic pain syndrom e (Primary Dx); Chronic abdominal pain Start: 06-08-2025 End: 06-08-2025 ambulatory ARASELI RAMOS Facility:[facility] Start: 05-27-2025 End: 05-28-2025 Emergency department patient visit Fortino Chandan Kohli DO Work Phone: [facility] Emergency Department Start: 05-03-2025 End: 05-03-2025 Emergency department patient visit Dr. María Hernandez MD Work Phone: -Emergency Department Work Phone: Start: 04-25-2025 End: 04-25-2025 [facility] Lucas Hancock PA-C Work Phone: Neurology Pain Comment on above: Chronic abdominal pa in (Primary Dx); Chronic pain syndrome; Gastroparesis; Bipolar I disorder, most recent episode (or current) manic (HCC) Start: 04-22-2025 End: 04-22-2025 Emergency department patient visit Claire Shane MD Work Phone: [facility] Emergency Department Start: 03-31-2025 End: 04-02-2025 ambulatory Claire Flanagan DO Work Phone: Gastroenterology Comment on above: Work release Start: 11-03-2024 End: 11-03-2024 Refill Claire Flanagan DO Work Phone: [facility] Start: 10-09-2024 ambulatory MARÍA HERNANDEZ [facility] Start: 09-22-2024 End: 09-22-2024 ambulatory Infusion Walker Chair 1 Work Phone: Neurology Comment on above: Abdominal pain, unsp ecified abdominal location (Primary Dx) Start: 09-20-2024 End: 09-20-2024 ambulatory Infusion Walker Chair 1 Work Phone: Neurology Comment on above: Abdominal pain, unsp ecified abdominal location (Primary Dx) Start: 09-19-2024 End: 09-19-2024 ambulatory Infusion Walker Chair 1 Work Phone: Neurology Comment on above: Abdominal pain, unsp ecified abdominal location (Primary Dx); Chronic pain syndrome; Chronic abdominal pain Start: 09-18-2024 End: 09-18-2024 ambulatory Infusion Walker Chair 1 Work Phone: Neurology Comment on above: Abdominal pain, unsp ecified abdominal location (Primary Dx) Start: 09-15-2024 End: 09-15-2024 Chart abstracting Leonel Del Cid DO Work Phone: Neurology Start: 09-15-2024 End: 09-15-2024 Telephone encounter Leonel Del Cid DO Work Phone: Pain Recovery Comment on above: Electronic Communica tion Start: 09-15-2024 End: 09-15-2024 Emergency department patient visit MARÍA WALTERS [facility] Start: 09-14-2024 End: 09-14-2024 Chart abstracting Leonel Del Cid DO Work Phone: Neurology Start: 09-04-2024 End: 09-04-2024 Emergency department patient visit [facility] Start: 09-02-2024 End: 09-02-2024 Emergency department patient visit MIGUEL [facility] Start: 08-22-2024 End: 08-22-2024 Emergency department patient visit MARÍA HERNANDEZ [facility] Emergency Department Start: 08-22-2024 End: 08-22-2024 E-mail encounter from caregiver Claire Flanagan DO Work Phone: Gastroenterology Start: 08-22-2024 End: 08-22-2024 Telephone encounter Claire Flanagan DO Work Phone: Gastroenterology Comment on above: Medication Authoriza tion (PA for Amitiza) Start: 08-22-2024 End: 08-22-2024 Admission to same day surgery center Oz Jones DO Work Phone: General Surgery Comment on above: Functional dyspepsia (Primary Dx); Pharyngoesophageal dysphagia; Visceral hypersensitivity syndrome Start: 08-22-2024 End: 08-22-2024 ambulatory Claire Flanagan DO Work Phone: Gastroenterology Comment on above: Nausea medication Start: 08-22-2024 End: 08-22-2024 Telemedicine consultation with patient Oz Jones DO Work Phone: General Surgery Start: 08-19-2024 End: 08-21-2024 Refill Claire Flanagan DO Work Phone: Gastroenterology Comment on above: Refill Request Start: 08-17-2024 End: 08-17-2024 Telephone encounter Claire Flanagan DO Work Phone: Gastroenterology Comment on above: Medication Preauthor ization (PA for Granisetron (Kytril)) Start: 08-15-2024 End: 08-15-2024 ambulatory Claire Flaangan DO Work Phone: Gastroenterology Comment on above: Nausea and vomiting, unspecified vomiting type (Primary Dx); Gastroparesis Start: 08-15-2024 End: 08-15-2024 Telemedicine consultation with patient Claire Flanagan DO Work Phone: Gastroenterology Start: 08-14-2024 ambulatory CLAIRE Eugene [facility] Start: 08-10-2024 End: 08-10-2024 Emergency department patient visit [facility] Start: 08-02-2024 End: 08-04-2024 ambulatory [facility] Start: 08-02-2024 End: 08-04-2024 Emergency department patient visit Meron Jorgensen MD Work Phone: [facility] Med Surg 2nd Floor Comment on above: Acute febrile illnes s Start: 08-01-2024 End: 08-01-2024 Emergency department patient visit Anil Witt MD Work Phone: [facility] Emergency Department Start: 07-29-2024 End: 07-29-2024 Emergency department patient visit Indra Santos DO Work Phone: [facility] Emergency Department Start: 07-25-2024 End: 07-25-2024 Emergency department patient visit [facility] Emergency Department Start: 07-23-2024 End: 07-23-2024 Emergency department patient visit Meron Jorgensen MD Work Phone: [facility] Emergency Department Start: 07-21-2024 End: 07-21-2024 Emergency department patient visit ANGELIQUE CADET [facility] Start: 07-18-2024 End: 07-18-2024 Emergency department patient visit María Luxdarryn Facility:[facility] Start: 07-18-2024 End: 07-18-2024 Emergency department patient visit [facility] Start: 07-11-2024 End: 07-11-2024 Emergency department patient visit ANGELIQUE ALEX [facility] Start: 07-06-2024 Emergency department patient visit MARÍA HERNANDEZ [facility] Start: 06-30-2024 End: 06-30-2024 Patient encounter procedure Lucas Hancock PA-C Work Phone: Neurology Pain Comment on above: Chronic pain syndrom e (Primary Dx); Chronic abdominal pain; Gastroparesis; Bipolar I disorder, most recent episode (or current) manic (HCC); Rash and other nonspecific skin eruption Start: 06-30-2024 End: 06-30-2024 ambulatory [facility] Start: 06-30-2024 ambulatory RUDI [facility] Start: 06-05-2024 End: 06-05-2024 Subsequent hospital visit by physician [facility] Comment on above: Gastroparesis [K31.8 4] Start: 06-02-2024 End: 06-02-2024 ambulatory Infusion Walker Chair 3 Work Phone: Neurology Comment on above: Abdominal pain, unsp ecified abdominal location (Primary Dx) Start: 06-01-2024 End: 06-01-2024 ambulatory Infusion Walker Chair 3 Work Phone: Neurology Comment on above: Abdominal pain, unsp ecified abdominal location (Primary Dx) Start: 05-31-2024 End: 05-31-2024 ambulatory Infusion Walker Chair 3 Work Phone: Neurology Comment on above: Abdominal pain, unsp ecified abdominal location (Primary Dx) Start: 05-30-2024 End: 05-30-2024 ambulatory Infusion Walker Chair 3 Work Phone: Neurology Comment on above: Abdominal pain, unsp ecified abdominal location (Primary Dx) Start: 05-29-2024 End: 05-29-2024 ambulatory Infusion Walker Chair 3 Work Phone: Neurology Comment on above: Abdominal pain, unsp ecified abdominal location (Primary Dx) Start: 05-18-2024 End: 05-18-2024 Patient encounter procedure Lucas Hancock PA-C Work Phone: Neurology Pain Comment on above: Chronic pain syndrom e (Primary Dx); Chronic abdominal pain; Gastroparesis; Bipolar I disorder, most recent episode (or current) manic (HCC) Start: 05-16-2024 End: 05-16-2024 Admission to same day surgery center Oz Jones DO Work Phone: General Surgery Comment on above: Gastroparesis (Prima ry Dx); Pharyngoesophageal dysphagia; Visceral hyperalgesia; Slow transit constipation Start: 05-16-2024 End: 05-16-2024 Telemedicine consultation with patient Oz Jones DO Work Phone: General Surgery Start: 04-20-2024 End: 04-20-2024 Patient encounter procedure Jing Ch PA-C Work Phone: Gastroenterology Comment on above: Transaminitis (Prima ry Dx); Gastroparesis Start: 04-05-2024 End: 04-06-2024 Emergency department patient visit Bobby Singh MD Work Phone: [facility] Emergency Department Comment on above: Acute liver failure Start: 03-29-2024 Telephone encounter Oz haskins DO Work Phone: Gastroenterology Start: 03-28-2024 End: 03-28-2024 ambulatory Claire Chandan Flanagan DO Work Phone: Gastroenterology Comment on above: Gastroparesis (Prima ry Dx); Pharyngoesophageal dysphagia Start: 03-28-2024 End: 03-28-2024 Telemedicine consultation with patient Claire Flanagan DO Work Phone: Gastroenterology Start: 03-20-2024 Refill Claire felder DO Work Phone: Gastroenterology Comment on above: Refill Request Start: 03-10-2024 End: 03-10-2024 Patient encounter procedure Danay Larios MD Work Phone: Pain Management Comment on above: Chronic abdominal pa in (Primary Dx); Central sensitization to pain; Myofascial pain Start: 02-27-2024 End: 02-27-2024 Emergency department patient visit DINAH WALTERS [facility] Start: 02-22-2024 Telephone encounter Claire Flanagan DO Work Phone: Gastroenterology Comment on above: Appointment Start: 02-18-2024 End: 02-18-2024 Emergency department patient visit KAYLEY CORONADO [facility] Start: 02-15-2024 End: 02-16-2024 Emergency department patient visit KAYLEYGABBY JOHNSON [facility] Start: 02-15-2024 End: 02-15-2024 Emergency department patient visit Cameron Avilez DO Work Phone: [facility] Emergency Medicine Comment on above: Right arm pain (Prim ramila Dx) Start: 02-02-2024 End: 02-03-2024 Emergency department patient visit RUDI CORONADO [facility] Start: 01-12-2024 End: 01-13-2024 Emergency department patient visit [facility] Work Phone: Start: 01-12-2024 ambulatory Yazmin Alonzo RN NURSE O N CALL Comment on above: Difficulty Breathing Start: 12-22-2023 Telephone encounter Claire Flanagan DO Work Phone: Gastroenterology Comment on above: Medication Problem ( Amitiza) Start: 12-21-2023 End: 12-21-2023 Patient encounter procedure Claire Flanagan DO Work Phone: Gastroenterology Comment on above: Chronic idiopathic c onstipation (Primary Dx); Abdominal pain, unspecified abdominal location Start: 12-20-2023 Telephone encounter Danay nicole MD Work Phone: Pain Management Comment on above: Medication Problem Start: 12-14-2023 End: 12-14-2023 Patient encounter procedure Danay Larios MD Work Phone: Pain Management Comment on above: Chronic abdominal pa in (Primary Dx); Central sensitization to pain Start: 12-13-2023 Telephone encounter Claire Flanagan DO Work Phone: Gastroenterology Start: 12-07-2023 Emergency department patient visit FORTINO STAPLETON Facility:[facility] Start: 12-06-2023 End: 12-06-2023 Emergency department patient visit [facility] Start: 12-06-2023 Telephone encounter Claire Flanagan DO Work Phone: Gastroenterology Comment on above: Patient Update Start: 11-24-2023 End: 11-24-2023 ambulatory [facility] Work Phone: Start: 11-24-2023 End: 11-24-2023 Patient encounter procedure [facility] Work Phone: Start: 11-15-2023 End: 11-15-2023 Emergency department patient visit KAYLEY CORONADO [facility] Start: 11-14-2023 End: 11-14-2023 Emergency department patient visit CAMERON AVILEZ [facility] Start: 11-04-2023 End: 11-05-[address] KAYLEY DOBSON DO Facility: Start: 11-04-2023 End: 11-04-[address] KAYLEY DOBSON DO Facility:[facility] Start: 11-04-2023 End: 11-04-[address] KAYLEY DOBSON DO [facility] Start: 10-29-2023 End: 10-29-2023 Emergency department patient visit OZ BAUER [facility] Start: 09-29-2023 End: 09-30-2023 ambulatory KOJO CHAMPION [employer] Facility:B Start: 09-29-2023 End: 09-29-2023 Patient encounter procedure KOJO CHAMPION [employer] [facility] Start: 09-22-2023 End: 09-22-2023 Emergency department patient visit FORTINOKAR STAPLETON Facility:[facility] Start: 09-21-2023 End: 09-21-2023 Emergency department patient visit Dr. Kayley Dobson Work Phone: [facility] Work Phone: Start: 08-31-2023 End: 08-31-2023 Emergency department patient visit DR KAYLEY DOBSON DO Facility:A Start: 08-31-2023 Telephone encounter Harman mejia MD Work Phone: General Surgery Comment on above: Patient Question (Pr essure and tasting blood) Start: 08-30-2023 ambulatory FORTINO STAPLETON Facility :[facility] Start: 08-30-2023 End: 08-30-2023 Subsequent hospital visit by physician Harman Oliver MD Work Phone: [facility] Comment on above: Pharyngoesophageal d ysphagia [R13.14] Start: 08-24-2023 Refill Claire felder DO Work Phone: Gastroenterology Comment on above: Refill Request (busp ar) Start: 08-17-2023 End: 08-17-2023 Emergency department patient visit DR KAYLEY DOBSON DO Facility:A Start: 08-17-2023 End: 08-17-2023 Emergency department patient visit JING VIDYA DO [facility] Start: 08-16-2023 Telephone encounter Claire Flanagan DO Work Phone: Gastroenterology Comment on above: Patient Update Start: 07-01-2023 End: 07-01-2023 ambulatory Oz Jones DO Work Phone: General Surgery Comment on above: Pharyngeal dysphagia (Primary Dx); Gastroparesis; Chronic abdominal pain; Chronic idiopathic constipation Start: 07-01-2023 End: 07-01-2023 Telemedicine consultation with patient Oz Jones DO Work Phone: [facility]RE[facility] Start: 06-24-2023 End: 06-24-2023 Telemedicine consultation with patient Rudi Melgoza Therapist Work Phone: [facility] Start: 06-24-2023 End: 06-24-2023 ambulatory Rudi Melgoza Therapist Work Phone: Pain Recovery Comment on above: next steps Pain disorder associ ated with psychological factors and medical condition (Primary Dx); Chronic pain syndrome; Bipolar I disorder, most recent episode (or current) manic (HCC); Chronic abdominal pain; Gastroparesis Start: 06-24-2023 E-mail encounter apolinar m caregiver Rudi Melgoza Therapist Work Phone: [facility] Start: 06-08-2023 End: 06-08-[address] Kayley Dobson Work Phone: [facility] Work Phone: Start: 06-03-2023 End: 06-03-2023 Subsequent hospital visit by physician Gi/[facility] Comment on above: Contrast media aller gy [Z91.041] Start: 05-27-2023 Refill Claire felder DO Work Phone: Gastroenterology Comment on above: Refill Request Start: 05-25-2023 Telephone encounter Claire Flanagan DO Work Phone: Gastroenterology Comment on above: Medication Preauthor ization (PA for [employer]) Start: 05-24-2023 End: 05-24-2023 Patient encounter procedure Shaina Bolton APRN.CNP Work Phone: Gastroenterology Comment on above: Pharyngoesophageal d ysphagia Chronic abdominal pa in (Primary Dx); Gastroparesis; Bipolar I disorder, most recent episode (or current) manic (HCC); Chronic pain syndrome Start: 05-22-2023 End: 05-23-2023 Emergency department patient visit [facility] Work Phone: Start: 05-06-2023 E-mail encounter apolinar m caregiver Claire Flanagan DO Work Phone: [facility] Start: 05-06-2023 Letter encounter Claire Brandon harish DO Work Phone: Gastroenterology Comment on above: Letter Start: 05-06-2023 Telephone encounter Oz haskins DO Work Phone: Gastroenterology Comment on above: Patient Question Start: 05-05-2023 End: 05-05-2023 ambulatory Claire Flanagan DO Work Phone: Gastroenterology Comment on above: Chronic idiopathic c onstipation (Primary Dx); Gastroparesis Start: 05-05-2023 End: 05-05-2023 Telemedicine consultation with patient Claire Flanagan DO Work Phone: [facility] Start: 04-22-2023 Telephone encounter Oz haskins DO Work Phone: General Surgery Comment on above: Pain Start: 04-22-[address] KAYLEY VALENTINE DO Facility:[facility] Start: 04-09-2023 End: 04-10-[address] KAYLEY DOBSON DO Facility:[facility] Start: 04-09-2023 End: 04-09-[address] KAYLEY DOBSON DO [facility] Start: 03-15-2023 End: 03-15-2023 ambulatory FORTINO STAPLETON Facility:[facility] Start: 03-08-2023 Telephone encounter Oz haskins DO Work Phone: General Surgery Comment 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; Orders Start: 03-02-2023 End: 03-02-2023 ambulatory Oz Jones DO Work Phone: General Surgery Comment on above: Pharyngoesophageal d ysphagia (Primary Dx); Gastroparesis; Hiatal hernia Start: 03-02-2023 End: 03-02-2023 Telemedicine consultation with patient Oz Jones DO Work Phone: [facility] Start: 02-03-2023 ambulatory FORTINO STAPLETON Facility :[facility] Start: 02-01-2023 Orders Only Capri hein [employer] Work Phone: Pre Anesthesia Comment on above: Pre-operative examin ation (Primary Dx) Start: 02-01-2023 Preprocedural examin ation done Capri Ayala APRN.CENTERPUNCHER Work Phone: Pre Anesthesia Start: 01-29-2023 ambulatory Oz gong DO Work Phone: [facility] Start: 01-20-2023 End: 01-20-2023 Admission to establishment Pacc Hinkley Virtual 2 Work Phone: [facility] Start: 01-20-2023 End: 01-20-2023 ambulatory Pac Hinkley [employer] 2 Work Phone: Pre Anesthesia Comment on above: Pre-op evaluation (P rimary Dx); Gastroparesis; Electronic cigarette use; Class 2 obesity with body mass index (BMI) of 36.0 to 36.9 in adult, unspecified obesity type, unspecified whether serious comorbidity present Start: 01-20-2023 End: 01-20-2023 Preprocedural examination done Pacc Hinkley [employer] 2 Work Phone: Pre Anesthesia Start: 01-13-2023 End: 01-13-2023 Emergency department patient visit Dr. Kayley Dobson Work Phone: [facility] Start: 01-12-2023 ambulatory Claire S Clin e DO Work Phone: Gastroenterology Comment on above: Er visit Start: 01-06-2023 ambulatory Claire S Clin e DO Work Phone: Gastroenterology Comment on above: Work note Start: 01-05-2023 End: 01-05-2023 Patient encounter procedure Claire De Oliveiramaura CORONADO Work Phone: Gastroenterology Comment on above: Gastroparesis (Prima ry Dx); Chronic idiopathic constipation; Esophageal dysphagia Gastroparesis (Prima ry Dx); Pharyngoesophageal dysphagia Start: 12-10-[address] Kayley Dobson Work Phone: [facility] Oncology Start: 12-10-2022 End: 12-10-[address] Kayley Dobson Work Phone: [facility] Start: 11-19-2022 End: 11-19-[address] Kayley Dobson Work Phone: [facility] Start: 11-12-2022 Telephone encounter Claire Chandan Panchito CORONADO Work Phone: Gastroenterology Comment on above: Appointment Start: 09-29-2022 End: 09-29-[address] Kayley Dobson Work Phone: [facility] Gastroenterology Start: 07-14-2022 End: 07-14-2022 Emergency department patient visit Armando Knott [facility] Start: 06-02-2022 End: 06-02-2022 Emergency department patient visit Dr. Kayley Dobson Work Phone: [facility] Start: 05-08-2022 End: 05-09-2022 Emergency department patient visit Dr. Kayley Dobson Work Phone: [facility] Start: 04-17-2022 End: 04-17-[address] [facility] Dob[facility] Start: 04-09-2022 End: 04-09-[address] Kayley Dobson [facility] Start: 04-06-2022 End: 04-06-2022 Patient encounter procedure Dr. Kayley Dobson Work Phone: [facility] Start: 03-19-2022 End: 03-19-[address] Kayley Dobson Work Phone: [facility] Start: 03-17-2022 End: 03-17-[address] KAYLEY DOBSON DO [facility] Start: 03-03-2022 End: 03-03-2022 Emergency department patient visit [facility] Start: 11-05-2021 End: 11-05-[address] JESSICA MEDLEY MD [facility] Start: 10-27-2021 End: 10-27-2021 Emergency department patient visit REGINA BAEZA MD [facility] Start: 10-16-2021 End: 10-16-[address] KAYLEY DOBSON DO [facility] Start: 09-03-2021 End: 09-07-2021 Outreach Lab BRANDY ARSHAD [employer] Start: 09-17-2020 End: 09-17-2020 Emergency department patient visit Kayley Sotelo [facility] Start: 05-20-2020 End: 05-20-2020 Emergency department patient visit Dexter Mcgee Work Phone: [facility] Comment on above: Non-recurrent acute suppurative otitis media of right ear with spontaneous rupture of tympanic membrane (Primary Dx); Sprain of right shoulder, unspecified shoulder sprain type, initial encounter Start: 05-05-2020 End: 05-05-2020 Emergency department patient visit Kong Casper Work Phone: [facility] Department Start: 08-27-2016 End: 03-31-2017 Patient requested procedure Claire Flanagan DO Work Phone: [facility] Start: 04-03-2013 End: 11-01-2013 Patient requested procedure Claire Flanagan DO Work Phone: [facility] MD Soha Thakur [facility] Procedures Date Procedure Procedure Detail Performing Clinician Start: 05-27-2025 Ct abdomen & pelvis w/contrast material Fortino Kohli DO Work Phone: Start: 05-27-2025 Ct angiography chest w/contrast/noncontrast Fortino Kohli DO Work Phone: Start: 05-27-2025 Ct cervical spine w/o contrast material Fortino Kohli DO Work Phone: Start: 05-27-2025 Ecg routine ecg w/least 12 lds w/i&r Fortino Kohli DO Work Phone: Start: 05-27-2025 Complete blood count with white cell differential, automated Fortino Kohli DO Work Phone: Start: 05-27-2025 Comprehensive metabolic panel Fortino Kohli DO Work Phone: Start: 05-27-2025 Urinalysis microscopic only Fortino chris DO Work Phone: Start: 05-27-2025 Urinalysis, reagent strip without microscopy Fortino Kohli DO Work Phone: Start: 05-03-2025 Urnls dip stick/tablet reagent auto microscopy Dr. María Hernnadez MD Work Phone: Start: 05-03-2025 CT of abdomen and pelvis without contrast Dr. María Hernandez MD Work Phone: Start: 05-03-2025 Plain chest X-ray Dr. María Hernandez MD Work Phone: Start: 05-03-[address] Rafal Hernandez MD Work Phone: Start: 08-22-2024 Radiologic exam chest 2 views Indra A Fos guerrero DO Work Phone: Start: 08-22-2024 Ct abdomen & pelvis w/o contrast material Indra A Foskey DO Work Phone: Start: 08-22-2024 Albumin serum plasma/whole blood Indra A Foskey DO Work Phone: Start: 08-22-2024 Complete blood count with white cell differential, automated Indra A Foskey DO Work Phone: Start: 08-22-2024 Ecg routine ecg w/least 12 lds w/i&r Indra A Foskey DO Work Phone: Start: 08-04-2024 Complete blood count with white cell differential, automated Odette Rousseau MD Work Phone: Start: 08-04-2024 Comprehensive metabolic panel Odette Rousseau MD Work Phone: Start: 08-03-2024 Complete blood count with white cell differential, automated Odette Rousseau MD Work Phone: Start: 08-03-2024 Comprehensive metabolic panel Odette Rousseau MD Work Phone: Start: 08-02-2024 Culture bacterial blood aerobic w/id isolates Meño Diaz MD Work Phone: Start: 08-02-2024 Radiologic exam chest 2 views Meño Diaz MD Work Phone: Start: 08-02-2024 Urnls dip stick/tablet rgnt auto w/o microscopy Meron Jorgensen MD Work Phone: Start: 08-02-2024 Ct abdomen & pelvis w/o contrast material Meron Jorgensen MD Work Phone: Start: 08-02-2024 Sars-cov-2 detection by dna/rna Meron garcia MD Work Phone: Start: 08-02-2024 Comprehensive metabolic panel Meron gautam MD Work Phone: Start: 08-02-2024 YESENIA SMEAR Meron Jorgensen MD Work Phone: Start: 08-01-2024 Ct angiography chest w/contrast/noncontrast Anil Witt MD Work Phone: Start: 08-01-2024 Complete blood count with white cell differential, automated Anil Witt MD Work Phone: Start: 08-01-2024 Natriuretic peptide Anil Witt MD Work Phone: Start: 08-01-2024 Ecg routine ecg w/least 12 lds w/i&r Anil Witt MD Work Phone: Start: 07-25-2024 Ct angiography chest w/contrast/noncontrast Gabriela Maya PA-C Work Phone: Start: 07-25-2024 Complete blood count with white cell differential, automated Gabriela PRESSLEY-C Work Phone: Start: 07-25-2024 Prothrombin time Gabriela Maya PA-C Work Phone: Start: 07-25-2024 Ecg routine ecg w/least 12 lds trcg only w/o i&r Anil Witt MD Work Phone: Start: 07-23-2024 Dup-scan xtr veins unilateral/limited study Meron Jorgensen MD Work Phone: Start: 07-23-2024 Complete blood count with white cell differential, automated Meron Jorgensen MD Work Phone: Start: 07-23-2024 Comprehensive metabolic panel Meron gautam MD Work Phone: Start: 06-05-2024 Gastric emptying imaging study Oz Jones DO Work Phone: Start: 04-05-2024 Ct abdomen & pelvis w/o contrast material Bobby Singh MD Work Phone: Start: 04-05-2024 Complete blood count with white cell differential, automated Bobby Singh MD Work Phone: Start: 04-05-2024 End: 04-05-2024 Comprehensive metabolic panel Bobby krueger MD Work Phone: Start: 04-05-2024 Urinalysis microscopic only Bobby katz MD Work Phone: Start: 04-05-2024 Urinalysis, reagent strip without microscopy Bobby Singh MD Work Phone: Start: 02-16-2024 ECG 12-LEAD KAYLEY DOBSON Start: 02-15-2024 CBC W Auto Differential panel - Blood KAYLEY DOBSON Start: 02-15-2024 Comprehensive metabolic 2000 panel - Serum or Plasma KAYLEY DOBSON Start: 02-15-2024 Magnesium [Mass/volume] in Serum or Plasma KAYLEY DOBSON Start: 02-15-2024 TROPONIN SERIES- (INITIAL, 1 HR) KAYLEY PITT Start: 02-15-2024 Ecg routine ecg w/least 12 lds trcg only w/o i&r Cameron Avilez DO Work Phone: Start: 02-15-2024 XR CHEST 1 VIEW KAYLEY DOBSON Start: 02-15-2024 End: 02-15-2024 Comprehensive metabolic panel Cameron Avilez DO Work Phone: Start: 02-15-2024 Troponin I.cardiac panel - Serum or Plasma by High sensitivity method Cameron Avilez DO Work Phone: Start: 02-15-2024 Radiologic exam chest single view Joey Avilez DO Work Phone: Start: 02-03-2024 Urinalysis MIGUEL RASHID Comment on above: Result Comment: URINALYSIS Performed By: #### 2 [id number] #### [facility],[address] [address] Start: 01-12-2024 CT of abdomen and pelvis without contrast Start: 01-12-2024 US scan of gallbladder Start: 11-24-2023 MRI of abdomen with contrast Start: 09-21-2023 SARS-CoV-2 & FLU Antigen (Rapid) Dr. Yuridia Dobson Work Phone: Start: 09-21-2023 Urine culture Start: 09-21-2023 Viral antigen assay Start: 08-30-2023 Esophagoscp rig transoral hypopharynx crv andria Carterela Che [employer] Work Phone: Start: 06-03-2023 Radiologic exam esophagus double contrast study [facility] Provider Start: 05-22-2023 Radiography of ankle Start: 06-02-2022 CT of abdomen and pelvis without contrast Dr. Kayley Dobson Work Phone: Start: 05-09-2022 CT of abdomen and pelvis without contrast Dr. Kayley Dobson Work Phone: Start: 04-17-2022 Computed tomography of abdomen and pelvis with contrast Dr. Kayley Dobson Work Phone: Start: 04-09-2022 Radionuclide gastric emptying study Dr. Kayley Dobson Work Phone: Start: 04-06-[address] Kayley Dobson Work Phone: Start: 03-03-2022 Plain X-ray of tibia and fibula Dr. Quiana Dobson Work Phone: Start: 11-05-[address] JESSICA MEDLEY MD Start: 09-17-2020 Choriogonadotropin ( test) [Presence] in Urine Rosina Alamo Work Phone: Start: 09-17-2020 Urinalysis microscopic only Rosina woods Work Phone: Start: 09-17-2020 Urinalysis, reagent strip without microscopy Rosina Snow Jasmeet Work Phone: Start: 05-20-2020 Radex shoulder complete minimum 2 views Dexter Mcgee Work Phone: Start: 05-20-2020 Standard chest X-ray Dexter Mcgee Work Phone: Start: 05-05-2020 Basic metabolic panel calcium total Kong Casper Work Phone: Start: 05-05-2020 Choriogonadotropin ( test) [Presence] in Serum or Plasma Kong Casper Work Phone: Start: 05-05-2020 Complete blood count with white cell differential, automated Kong Casper Work Phone: Start: 05-05-2020 Choriogonadotropin ( test) [Presence] in Urine Kong Casper Work Phone: Start: 05-05-2020 Urinalysis microscopic only Kong Marina ins Work Phone: Start: 05-05-2020 Urinalysis, reagent strip without microscopy Kong Casper Work Phone: Knee region structur e (body structure) BRANDY ARSHAD [employer] Knee region structur e (body structure) DR JESSICA MEDLEY MD Comment on above: bilateral, floating knee caps Ligation of fallopian tube C PERLITA ARSHAD [employer] Tonsil and adenoid s tructure (body structure) BRANDY ARSHAD [employer] Plan of Treatment Date Care Activity Detail Author Start: 2041 Zoster Vaccines (1 of 2) Zoster Vaccines (1 of 2) [facility] Start: 03-16-2027 DTaP/Tdap/Td Vaccines (4 - Td or Tdap) DTaP/Tdap/Td Vaccines (4 - Td or Tdap) [facility] Start: 03-16-2027 Tetanus vaccination [facility] Start: 03-16-2027 Urine microalbumin profile [facility] Start: 07-23-2025 End: 07-23-2025 Follow-up encounter 07/23/2025 10:30 AM EDT [facility] [address] [place] [address] Lucas Hancock PA-C [address] [place] [address] Ketamine follow up Neurology Pain Comment on above: Ketamine follow up Start: 06-26-2025 End: 06-26-2025 Patient encounter procedure 06/26/2025 1:30 PM EDT Office Visit [facility] [address] [place] [address] [place] [address] Rudi Neal, DO [address] [place] [address] [facility] Start: 06-25-2025 Influenza vaccination Influenza Vaccine (#1) Michaelscamelia Hauser Start: 06-22-2025 End: 06-22-2025 ambulatory 06/22/2025 3:00 PM EDT [facility] [address] [place] [address] [facility] Neu[facility] Comment on above: REPEAT KETAMINE Start: 06-21-2025 End: 06-21-2025 ambulatory 06/21/2025 3:00 PM EDT [facility] [address] [place] [address] [facility] Neurology Comment on above: REPEAT KETAMINE Start: 06-20-2025 End: 06-20-2025 ambulatory 06/20/2025 3:00 PM EDT [facility] [address] [place] [address] [facility]AM[facility] Neurology Comment on above: REPEAT KETAMINE Start: 06-19-2025 End: 06-19-2025 ambulatory 06/19/2025 3:00 PM EDT [facility] [address] [place] [address] REPEAT K[facility]AMINE Neurology Comment on above: REPEAT KETAMINE Start: 06-18-2025 End: 06-18-2025 ambulatory 06/18/2025 3:00 PM EDT [facility] [address] [place] [address] REPEAT [facility]AMINE Neurology Comment on above: REPEAT KETAMINE Start: 05-03-2025 [facility] Start: 05-03-2025 [facility] Start: 05-03-2025 [facility] Start: 12-19-2024 End: 12-19-2024 Patient encounter procedure 12/19/2024 2:20 PM EST Office Visit [facility] [address] [place] [address] Claire Ruiz MD [address] [place] [address] [facility] Start: 10-26-2024 End: 10-26-2024 Follow-up encounter 10/26/2024 11:00 AM EST [facility] [address] [place] [address] Lucas Hancock PA-C [address] [place] [address] Ketamine follow up Neurology Pain Comment on above: Ketamine follow up Start: 09-22-2024 End: 09-22-2024 ambulatory 09/22/2024 3:00 PM EST [facility] [address] [place] [address] [facility] Neurology Comment on above: REPEAT KETAMINE Start: 09-20-2024 End: 09-20-2024 ambulatory 09/20/2024 3:00 PM EST [facility] [address] [place] [address] REPEAT K[facility]AMINE Neurology Comment on above: REPEAT KETAMINE Start: 09-19-2024 End: 09-19-2024 ambulatory 09/19/2024 3:00 PM EST [facility] [address] [place] [address] REPEAT K[facility]AMINE Neurology Comment on above: REPEAT KETAMINE Start: 09-18-2024 End: 09-18-2024 ambulatory 09/18/2024 3:00 PM EST [facility] [address] [place] [address] [facility]PE[facility] Neurology Comment on above: REPEAT KETAMINE Start: 08-22-2024 End: 08-22-2024 Admission to same day surgery center 08/22/2024 8:30 AM EDT [facility] [address] [place] [address] [place] [address] gp symtoms/endoscopy discussion General Surgery Comment on above: gp symtoms/endoscopy discussion Start: 06-30-2024 End: 06-30-2024 Patient encounter procedure 06/30/2024 4:00 PM EDT Office Visit Neurology Pain [address] [place] [address] Lucas Hancock PA-C [address] [place], [place] [id number] Ketamine follow up Neurology Pain Comment on above: Ketamine follow up Start: 06-25-2024 Covid-19 Vaccine ( season) Covid-19 Vaccine ( season) [facility] Start: 06-25-2024 Covid-19 Vaccine ( season) Covid-19 Vaccine ( season) [facility] Start: 06-25-2024 Influenza vaccination [facility] Start: 06-08-2024 End: 06-08-2024 Patient encounter procedure 06/08/2024 9:30 AM EDT Office Visit Gastroenterology [facility] [address] [place] [address] Jing Ch PA-C [address] [place], [place] [id number] Transaminitis [ Gastroenterology Comment on above: Transaminitis [ Start: 06-05-2024 End: 06-05-2024 Patient encounter procedure 06/05/2024 8:30 AM EDT Appointment Molecular Imaging [address] [place] [address] [facility]STR[facility]TYING [facility] Comment on above: NM GASTRIC [facility]TY[facility] SOLID Start: 06-02-2024 End: 06-02-2024 ambulatory 06/02/2024 1:00 PM EDT [facility] [address] [place] [address] [facility] Neu[facility] Comment on above: [facility] Start: 06-01-2024 End: 06-01-2024 ambulatory 06/01/2024 1:00 PM EDT [facility] [address] [place] [address] [facility] Neu[facility] Comment on above: [facility] Start: 05-31-2024 End: 05-31-2024 ambulatory 05/31/2024 1:00 PM EDT [facility] [address] [place] [address] [facility] Neurology Comment on above: [facility] Start: 05-30-2024 End: 05-30-2024 ambulatory 05/30/2024 1:00 PM EDT [facility] [address] [place] [address] [facility] Neurology Comment on above: [facility] Start: 05-29-2024 End: 05-29-2024 ambulatory 05/29/2024 1:00 PM EDT [facility] [address] [place] [address] [facility] Neurology Comment on above: [facility] Start: 05-18-2024 End: 05-18-2024 Patient encounter procedure 05/18/2024 2:00 PM EDT Office Visit Neurology Pain [address] [place] [address] Lucas Hancock PA-C [address] [place] [address] Follow up Neurology Pain Comment on above: Follow up Start: 05-16-2024 End: 05-16-2024 Admission to same day surgery center 05/16/2024 3:00 PM EDT [facility] [address] [address] Oz Jones, [place] [address] Flanagan General Surgery Comment on above: discuss POP per Dr Flanagan Start: 05-09-2024 End: 05-09-2024 Patient encounter procedure [facility] Comment on above: omm /stomach Start: 04-20-2024 End: 07-20-2024 Ceruloplasmin [Mass/volume] in Serum or Plasma CERULOPLASMIN Lab Routine Transaminitis Expected: 04/20/2024, Expires: 07/20/2024 [facility] Work Phone: Comment on above: Expected: 04/20/2024, Expires: Start: 04-20-2024 End: 07-20-2024 Chronic hepatitis differentiation between hepatitis B and C virus panel - Serum or Plasma HEP REMOTE PANEL BL Lab Routine Transaminitis Expected: 04/20/2024, Expires: 07/20/2024 [facility] Comment on above: Expected: 04/20/2024, Expires: Start: 04-20-2024 End: 07-20-2024 Ferritin [Mass/volume] in Serum or Plasma FERRITIN Lab Routine Transaminitis Expected: 04/20/2024, Expires: 07/20/2024 [facility] Comment on above: Expected: 04/20/2024, Expires: Start: 04-20-2024 End: 07-20-2024 Iron and Iron binding capacity panel - Serum or Plasma IRON AND TIBC Lab Routine Transaminitis Expected: 04/20/2024, Expires: 07/20/2024 [facility] Comment on above: Expected: 04/20/2024, Expires: Start: 04-20-2024 End: 07-20-2024 Mitochondria Ab [Presence] in Serum by Immunofluorescence MITOCHONDRIAL M2 IGG SERUM Lab Routine Transaminitis Expected: 04/20/2024, Expires: 07/20/2024 [facility] Comment on above: Expected: 04/20/2024, Expires: Start: 04-20-2024 End: 07-20-2024 Smooth muscle Ab [Presence] in Serum SMOOTH MUSCLE AB SCR Lab Routine Transaminitis Expected: 04/20/2024, Expires: 07/20/2024 [facility] Comment on above: Expected: 04/20/2024, Expires: Start: 03-28-2024 End: 03-28-2024 ambulatory 03/28/2024 2:30 PM EDT [facility] [address] [place] [address] [address] Flanagan DO [address] [place] [address] gp issues/losing weight Gastroenterology Comment on above: gp issues/losing weight Start: 03-16-2024 End: 03-16-2024 Patient encounter procedure 03/16/2024 3:30 PM EDT Office Visit Pain Management [address] [place] [address] Roxie Cm PA-C [address] [place] [address] Return in about 3 months (around 03/13/2024) for Roxie . Pain Management Comment on above: Return in about 3 months (around 03/13/20 24) for Roxie . Start: 01-13-2024 [facility] Start: 01-12-2024 Bacteria identified in Urine by Culture [facility] Start: 01-06-2024 End: 03-07-2024 Creatine kinase [Enzymatic activity/volume] in Serum or Plasma CK CREATINE KINASE Lab Routine Gastroparesis Expected: 01/06/2024, Expires: 03/07/2024 [facility] Work Phone: Comment on above: Expected: 01/06/2024, Expires: Start: 10-25-2023 Behavioral Health Screening Behavioral Health Screening [facility] Start: 10-25-2023 Depression Assessment Depression Assessment [facility] Start: 09-21-2023 [facility] Start: 09-21-2023 [facility] Start: 09-21-2023 Bacteria identified in Urine by Culture Urine Culture [facility] Start: 06-25-2023 Covid-19 Vaccine () Covid-19 Vaccine () [facility] Start: 06-25-2023 Influenza vaccination [facility] Start: 06-08-2023 Patient referral [facility] Work Phone: Start: 01-05-2023 End: 03-07-2023 ACETYLCHOLINE REC BINDING AB ACETYLCHOLINE REC BINDING AB Lab Routine Gastroparesis Expected: 01/05/2023, Expires: 03/07/2023 [facility] Work Phone: Comment on above: Expected: 01/05/2023, Expires: Start: 01-05-2023 End: 03-07-2023 AMINO ACIDS, PLASMA W/ CONSULTATION AMINO ACIDS, PLASMA W/ CONSULTATION Lab Routine Gastroparesis Expected: 01/05/2023, Expires: 03/07/2023 [facility] Work Phone: Comment on above: Expected: 01/05/2023, Expires: Start: 01-05-2023 End: 03-07-2023 C reactive protein [Mass/volume] in Serum or Plasma C-REACTIVE PROTEIN (CRP) Lab Routine Gastroparesis Expected: 01/05/2023, Expires: 03/07/2023 [facility] Work Phone: Comment on above: Expected: 01/05/2023, Expires: 3 Start: 01-05-2023 End: 03-07-2023 CARNITINE FREE/TOTAL, PLASMA CARNITINE FREE/TOTAL, PLASMA Lab Routine Gastroparesis Expected: 01/05/2023, Expires: 03/07/2023 [facility] Work Phone: Comment on above: Expected: 01/05/2023, Expires: 3 Start: 01-05-2023 End: 03-07-2023 CYTOKINE PANEL 13, SERUM CYTOKINE PANEL 13, SERUM Lab Routine Gastroparesis Expected: 01/05/2023, Expires: 03/07/2023 [facility] Work Phone: Comment on above: Expected: 01/05/2023, Expires: 3 Start: 01-05-2023 End: 03-07-2023 Erythrocyte sedimentation rate SED RATE WESTERGREN Lab Routine Gastroparesis Expected: 01/05/2023, Expires: 03/07/2023 [facility] Work Phone: Comment on above: Expected: 01/05/2023, Expires: 3 Start: 01-05-2023 End: 03-07-2023 ESTROGEN FRACTION BL ESTROGEN FRACTION BL Lab Routine Gastroparesis Expected: 01/05/2023, Expires: 03/07/2023 [facility] Work Phone: Comment on above: Expected: 01/05/2023, Expires: 3 Start: 01-05-2023 End: 03-07-2023 Glutamate decarboxylase 65 Ab [Units/volume] in Serum GLUTAMIC AC DECARBOXYLASE AB Lab Routine Gastroparesis Expected: 01/05/2023, Expires: 03/07/2023 [facility] Work Phone: Comment on above: Expected: 01/05/2023, Expires: 3 Start: 01-05-2023 End: 03-07-2023 Hemoglobin A1c in Blood HGB A1C Lab Routine Gastroparesis Expected: 01/05/2023, Expires: 03/07/2023 [facility] Work Phone: Comment on above: Expected: 01/05/2023, Expires: 3 Start: 01-05-2023 End: 03-07-2023 IgA [Mass/volume] in Serum or Plasma IGA BLD Lab Routine Gastroparesis Expected: 01/05/2023, Expires: 03/07/2023 [facility] Work Phone: Comment on above: Expected: 01/05/2023, Expires: 3 Start: 01-05-2023 End: 03-07-2023 IgG [Mass/volume] in Serum or Plasma IGG Lab Routine Gastroparesis Expected: 01/05/2023, Expires: 03/07/2023 [facility] Work Phone: Comment on above: Expected: 01/05/2023, Expires: Start: 01-05-2023 End: 03-07-2023 IgM [Mass/volume] in Serum or Plasma IGM Lab Routine Gastroparesis Expected: 01/05/2023, Expires: 03/07/2023 [facility] Work Phone: Comment on above: Expected: 01/05/2023, Expires: Start: 01-05-2023 End: 03-07-2023 Lactate dehydrogenase [Enzymatic activity/volume] in Serum or Plasma LD LACTATE DEHYDRO Lab Routine Gastroparesis Expected: 01/05/2023, Expires: 03/07/2023 [facility] Work Phone: Comment on above: Expected: 01/05/2023, Expires: 3 Start: 01-05-2023 End: 03-07-2023 ORGANIC ACIDS UR, QUANT W/CONSULTATION ORGANIC ACIDS UR, QUANT W/CONSULTATION Lab Routine Gastroparesis Expected: 01/05/2023, Expires: 03/07/2023 [facility] Work Phone: Comment on above: Expected: 01/05/2023, Expires: 3 Start: 01-05-2023 End: 03-07-2023 Thyrotropin [Units/volume] in Serum or Plasma TSH BLD Lab Routine Gastroparesis Expected: 01/05/2023, Expires: 03/07/2023 [facility] Work Phone: Comment on above: Expected: 01/05/2023, Expires: 3 Start: 01-05-2023 End: 03-07-2023 Thyroxine (T4) free [Mass/volume] in Serum or Plasma T4 FREE/FREE THYROX Lab Routine Gastroparesis Expected: 01/05/2023, Expires: 03/07/2023 [facility] Work Phone: Comment on above: Expected: 01/05/2023, Expires: 3 Start: 01-05-2023 End: 03-07-2023 VOLTAGE GATED CA IGG VOLTAGE GATED CA IGG Lab Routine Gastroparesis Expected: 01/05/2023, Expires: 03/07/2023 [facility] Work Phone: Comment on above: Expected: 01/05/2023, Expires: 3 Start: 01-05-2023 End: 03-07-2023 Voltage-gated potassium channel Ab [Moles/volume] in Serum VOLTAGE-GATED POTASSIUM MCDERMOTT AB Lab Routine Gastroparesis Expected: 01/05/2023, Expires: 03/07/2023 [facility] Work Phone: Comment on above: Expected: 01/05/2023, Expires: 3 Start: 10-25-2022 DEPRESSION ASSESSMENT DEPRESSION ASSESSMENT [facility] Start: 09-29-2022 Patient referral [facility] Work Phone: Start: 06-25-2022 Influenza vaccination INFLUENZA (#1) [facility] Start: 03-03-2022 Plain X-ray of tibia and fibula Tibia & Fibula 2 Views [facility] Work Phone: Start: 2021 HPV TESTING HPV TESTING [facility] Start: 2021 Screening for malignant neoplasm of cervix HPV Testing [facility] Start: 01-21-2021 PAP TESTING PAP TESTING [facility] Start: 01-21-2021 Screening for malignant neoplasm of cervix Pap Testing [facility] Start: 06-25-2020 Influenza vaccination INFLUENZA VACCINE (#1) [facility] Start: 06-25-2020 Influenza vaccination given Sequential Influenza Vaccine (#1) [facility] Start: 01-21-2019 Screening for malignant neoplasm of cervix Cervical Cancer Screening [facility] Start: 02-29-2012 Screening for malignant neoplasm of cervix [facility] Start: 2010 Hepatitis A Vaccines (1 of 2 - Risk 2-dose series) Hepatitis A Vaccines (1 of 2 - Risk 2-dose series) [facility] Start: 2010 Third diphtheria, tetanus and acellular pertussis (DTaP) vaccination TDAP (ADULT) [facility] Start: 2009 Anxiety Screening Anxiety Screening [facility] Start: 2009 Depression Screening Depression Screening [facility] Start: 2009 Hepatitis C antibody, confirmatory test Hepatitis C Screening [facility] Start: 2009 Hepatitis C screening Hepatitis C Screening [facility] Start: 2009 Tetanus vaccination TETANUS [facility] Start: 2006 HIV screening [facility] Start: 02-29-2004 HIV screening HIV SCREENING DISCUSSION [facility] Start: 02-29-2004 Varicella vaccination Varicella Vaccines (1 of 2 - 13+ 2-dose series) [facility] Start: 03-08-2001 Hepatitis B vaccination HEP B VACCINE (2 of 3 - 3-dose series) [facility] Start: 03-08-2001 Hepatitis B Vaccine (2 of 3 - 3-dose series) Hepatitis B Vaccine (2 of 3 - 3-dose series) [facility] Start: 03-08-2001 Hepatitis B Vaccines (2 of 3 - 3-dose series) Hepatitis B Vaccines (2 of 3 - 3-dose series) [facility] Start: 1994 History and physical examination, annual for health maintenance Wellness Visit [facility] Start: 1991 COVID-19 VACCINE (#1) COVID-19 VACCINE (#1) [facility] Start: 1991 HEPATITIS B (1 of 3 - 3-dose series) HEPATITIS B (1 of 3 - 3-dose series) [facility] Start: 1991 Hepatitis C antibody, confirmatory test HEPATITIS C VIRUS SCREENING [facility] Start: 1991 Hepatitis C screening HEPATITIS C VIRUS SCREENING [facility] Start: 1991 HIV screening HIV Screening [facility] Start: 1991 Lipid panel Lipid Panel [facility] Start: 1991 Screening for malignant neoplasm of cervix Pap Smear [facility] Start: 1991 Tetanus vaccination Tetanus: Every 10yrs [facility] Start: 1991 Yearly Adult Physical Yearly Adult Physical [facility] Bacteria identified in Blood by Culture BLOOD CULTURE Microbiology [facility] 08/02/2024 7:45 PM EDT [facility] End: 05-27-2025 Bacteria identified in Urine by Culture [facility] Comment on above: One Time for 1 Occurrences starting 12/2024 until 05/27/2025 CBC W Auto Different ial panel - Blood [facility] CT Abdomen and Pelvi s W contrast IV [facility] Work Phone: D-dimer assay, quantitative [facility] ECG 12 lead [facility] Service [facility] Work Phone: Comment on above: As needed until discontinued starting End: 01-21-2024 ECG COMPLETE ECG COMPLETE ECG Routine Gastroparesis Electronic cigarette use Class 2 obesity with body mass index (BMI) of 36.0 to 36.9 in adult, unspecified obesity type, unspecified whether serious comorbidity present Pre-op evaluation 1 Occurrences starting 01/20/2023 until 01/21/2024 [facility] Work Phone: Comment on above: 1 Occurrences starting 01/20/2023 until 01/21/2024 End: 02-02-2024 ECG COMPLETE ECG COMPLETE ECG Routine Pre-operative examination 1 Occurrences starting 02/01/2023 until 02/02/2024 [facility] Work Phone: Comment on above: 1 Occurrences starting 02/01/2023 until 02/02/2024 End: 01-06-2024 EGD - THERAPEUTIC, EUS, OR TUBE INTERVENTIONS EGD - THERAPEUTIC, EUS, OR TUBE INTERVENTIONS Endoscopy Routine Gastroparesis 1 Occurrences starting 01/05/2023 until 01/06/2024 [facility] Work Phone: Comment on above: 1 Occurrences starting 01/05/2023 until 01/06/2024 End: 05-24-2024 EGD - THERAPEUTIC, EUS, OR TUBE INTERVENTIONS EGD - THERAPEUTIC, EUS, OR TUBE INTERVENTIONS Endoscopy Routine Pharyngoesophageal dysphagia 1 Occurrences starting 05/24/2023 until 05/24/2024 [facility] Work Phone: Comment on above: 1 Occurrences starting 05/24/2023 until 05/24/2024 Erythrocyte sediment ation rate [facility] End: 03-02-2024 Esophageal motility study w/interp&rpt MANOMETRY ESOPHAGEAL Endoscopy Routine Pharyngoesophageal dysphagia Hiatal hernia 1 Occurrences starting 03/02/2023 until 03/02/2024 [facility] Work Phone: Comment on above: 1 Occurrences starting 03/02/2023 until 03/02/2024 Lactate dehydrogenas e measurement [facility] Lactoferrin [Presenc e] in Stool by Immunoassay [facility] Work Phone: End: 06-15-2025 NM Stomach Views for gastric emptying solid phase W radionuclide PO NM GASTRIC EMPTYING SOLID Radiology Routine Gastroparesis 1 Occurrences starting 05/16/2024 until 06/15/2025 [facility] Work Phone: Comment on above: 1 Occurrences starting 05/16/2024 until 06/15/2025 Nuclear Ab [Presence ] in Serum [facility] Partial thromboplast in time, activated [facility] Patient Education [facility] Work Phone: Patient referral [facility] Work Phone: Protein measurement [facility] Work Phone: Prothrombin time [facility] End: 02-04-2024 Radiologic exam esophagus single contrast study XR ESOPHAGRAM Radiology Routine Esophageal dysphagia 1 Occurrences starting 01/05/2023 until 02/04/2024 [facility] Work Phone: Comment on above: 1 Occurrences starting 01/05/2023 until 02/04/2024 End: 03-31-2024 Radiologic exam swallow function contrast study XR MODIFIED BARIUM SWALLOW W SPEECH THERAPY Radiology Routine Pharyngoesophageal dysphagia 1 Occurrences starting 03/02/2023 until 03/31/2024 [facility] Work Phone: Comment on above: 1 Occurrences starting 03/02/2023 until 03/31/2024 Standard ECG ECG ECG STAT 10/2023 3:27 PM ED [employer] Work Phone: Standard ECG ECG ECG STAT 05/2024 7:21 PM EDT [facility] Standard ECG ECG ECG STAT 7:36 PM EDT [facility] Standard ECG ECG ECG STAT 12/2024 7:55 PM EDT [facility] SURGICAL PATHOLOGY [facility] Work Phone: Comment on above: Release Upon Ordering for 1 Occurrences starting 08/30/2023, 1 completed Troponin T.cardiac [Mass/volume] in Serum or Plasma by High sensitivity method [facility] Troponin T.cardiac [Mass/volume] in Serum or Plasma by High sensitivity method [facility] End: 02-04-2024 XR ABDOMEN 1V SUPINE XR ABDOMEN 1V SUPINE Radiology Routine Chronic idiopathic constipation 1 Occurrences starting 01/05/2023 until 02/04/2024 [facility] Work Phone: Comment on above: 1 Occurrences starting 01/05/2023 until 02/04/2024 [facility] Immunizations Immunization Date Immunization Notes Care Provider [facility] 08-17-2024 influenza virus vacc ine, unspecified formulation Lucas Hancock PA-C Work Phone: [facility] 08-04-2024 influenza virus vacc ine, unspecified formulation Fortino Kohli DO Work Phone: [facility] 08-16-2018 influenza, injectabl e, quadrivalent, preservative free Claire Flanagan DO Work Phone: [facility] 08-16-2018 influenza virus vacc ine, unspecified formulation Kong Casper [facility] 03-16-2017 tetanus toxoid, redu sharri diphtheria toxoid, and acellular pertussis vaccine, adsorbed BRANDY SEFFENS [employer] [facility] 08-23-2015 tetanus toxoid, redu sharri diphtheria toxoid, and acellular pertussis vaccine, adsorbed BRANDY SEFFENS [employer] [facility] 08-15-2015 Influenza virus vaccine [facility] 08-15-2015 influenza, injectabl e, quadrivalent, preservative free Claire Flanagan DO Work Phone: [facility] 08-15-2015 influenza, seasonal, injectable, preservative free Claire Flanagan DO Work Phone: [facility] 07-16-2015 influenza virus vacc ine, unspecified formulation BRANDY ARSHAD [employer] [facility] 07-16-2015 influenza, injectabl e, quadrivalent, contains preservative Claire Flanagan DO Work Phone: [facility] 08-22-2013 tetanus toxoid, redu sharri diphtheria toxoid, and acellular pertussis vaccine, adsorbed Claire Flanagan DO Work Phone: [facility] Work Phone: 07-22-2013 influenza virus vacc ine, unspecified formulation Claire Flanagan DO Work Phone: [facility] 06-03-2009 HPV, unspecified formulation Claire Flanagan DO Work Phone: [facility] 06-03-2009 human papilloma viru s vaccine, quadrivalent Claire Flanagan DO Work Phone: [facility] 06-03-2009 Human Papillomavirus Quadval BRANDY MORELLILIA [employer] [facility] 02-01-2009 HPV, unspecified formulation Claire Flanagan DO Work Phone: [facility] 02-01-2009 human papilloma viru s vaccine, quadrivalent Claire Flanagan DO Work Phone: [facility] 02-01-2009 Human Papillomavirus Quadval BRANDY OMRELLILIA [employer] [facility] 12-04-2008 HPV, unspecified formulation Claire Flanagan DO Work Phone: [facility] 12-04-2008 human papilloma viru s vaccine, quadrivalent Claire Flanagan DO Work Phone: [facility] 12-04-2008 Human Papillomavirus Quadval BRANDY ARSHAD [employer] [facility] 02-08-2001 hepatitis B pediatri c vaccine BRANDY ARSHAD [employer] [facility] 02-08-2001 hepatitis B vaccine, pediatric or pediatric/adolescent dosage Claire Flanagan DO Work Phone: [facility] 02-08-2001 measles, mumps and rubella virus vaccine Claire Flanagan DO Work Phone: [facility] 02-08-2001 measles/mumps/rubell a virus vaccine BRANDY ARSHAD [employer] [facility] Payers Date Payer Category Payer Self-pay [id number] 2023 Medicaid (Managed Care) [facility] [id number] 2021 Unknown 2020 Unknown [id number] 2017 Unknown [id number] 2017 Unknown [id number] 2016 Medicaid [id number] 2015 Unknown [id number] 1991 Unknown [id number] 2.16.840.1.674198.3.579.2. 1069 1991 Unknown [id number] 2.16.840.1.188855.3.579.2. 627 1991 Unknown [id number] 2.16.840.1.377649.3.579.2. 627 1991 Unknown [id number] 2.16.840.1.671949.3.579.2. 627 1991 Unknown [id number] 2.16.840.1.188685.3.579.2. 627 1991 Unknown [id number] 2.16.840.1.184912.3.579.2. 627 1991 Unknown [id number] 2.16.840.1.072640.3.579.2. 627 1991 Unknown [id number] 2.16.840.1.744664.3.579.2. 1243 1991 Unknown [id number] 2.16.840.1.455852.3.579.2. 627 1991 Unknown [id number] 2.16.840.1.497072.3.579.2. 903 1991 Unknown [id number] 2.16.840.1.100206.3.579.2. 651 1991 Unknown [id number] 2.16.840.1.195789.3.579.2. 651 1991 Unknown [id number] 2.16.840.1.223738.3.579.2. 65 1991 Unknown [id number] 2.16.840.1.973135.3.579.2. 65 1991 Unknown [id number] 2.16.840.1.607270.3.579.2. 65 1991 Unknown [id number] 2.16.840.1.643453.3.579.2. 65 1991 Unknown [id number] 2.16.840.1.849179.3.579.2. 1991 Unknown [id number] 2.16.840.1.934645.3.579.2. 1991 Unknown [id number] 2.16.840.1.579041.3.579.2. 1991 Unknown [id number] 2.16.840.1.004970.3.579.2. 65 1991 Unknown [id number] 2.16.840.1.085185.3.579.2. 1991 Unknown [id number] 2.16.840.1.207214.3.579.2. 1991 Unknown [id number] 2.16.840.1.269610.3.579.2. 1991 Unknown [id number] 2.16.840.1.889405.3.579.2. 1991 Unknown [id number] 2.16.840.1.602992.3.579.2. 1991 Unknown [id number] 2.16.840.1.840557.3.579.2. 98 1991 Unknown [id number] 2.16.840.1.949793.3.579.2. 98 1991 Unknown [id number] 2.16.840.1.076732.3.579.2. 983 1991 Unknown [id number] 2.16.840.1.397616.3.579.2. 983 1991 Unknown [id number] 2.16.840.1.499803.3.579.2. 983 1991 Unknown [id number] 2.16.840.1.451780.3.579.2. 983 1991 Unknown [id number] 2.16.840.1.808187.3.579.2. 983 1991 Unknown [id number] 2.16.840.1.061780.3.579.2. 983 1991 Unknown [id number] 2.16.840.1.776320.3.579.2. 983 1991 Unknown [id number] 2.16.840.1.419150.3.579.2. 983 Unknown [id number] 2.16.840.1.840199.3.579.2. 462 Unknown [id number] 2.16.840.1.304339.3.579.2. 462 Social History Date Type Detail Facility Start: 05-05-2020 End: 05-20-2020 Tobacco smoking status NJIS Current every day smoker [employer] Start: 03-08-2009 End: 03-08-2013 History of tobacco use Cigarette Smoker [employer] Start: 05-05-2020 End: 03-02-2023 Cigarettes smoked current (pack per day) - Reported [facility] Start: 05-05-2020 End: 09-17-2020 Tobacco use and exposure Current user [facility] [employer] History of tobacco use Chews Tobacco [employer] Start: 05-05-2020 End: 05-27-2025 Alcohol intake Ex-drinker (finding) [facility] Start: 05-05-2020 History SDOH IPV Fear 2 A [facility] Start: 12-24-2019 [facility] Start: 1991 Sex Assigned At Not on file [facility] Start: 02-05-2024 End: 02-15-2024 Exposure to SARS-CoV-2 (event) Not sure [facility] Start: 05-20-2020 Alcohol intake Lifetime non-d harpreet (finding) [facility] Start: 05-20-2020 History SDOH Alcohol Frequency 1 [facility] Start: 08-27-2021 End: 01-12-2024 Not Known [facility] Start: 07-23-2019 End: 02-16-2023 Light tobacco smoker (finding) [facility] Start: 1990 Sex Assigned At Female A [facility] Start: 10-31-2019 [place] [facility] Start: 10-31-2019 None [place] [facility] Start: 03-17-2021 Cigarettes [place] [facility] Start: 04-03-2013 End: 06-30-2024 Tobacco smoking status NHIS Ex-smoker [facility] Work Phone: Start: 03-08-2009 End: 03-08-2013 History of tobacco use Current smoker [facility] Work Phone: Start: 04-03-2013 End: 06-30-2024 Tobacco use and exposure Smokeless tobacco non-user [facility] Work Phone: Start: 06-25-2017 End: 06-08-2025 Alcohol intake Current non-drinker of alcohol (finding) [facility] Start: 02-03-2023 End: 03-02-2023 Tobacco use panel [facility] Start: 09-25-2012 National Score (1-100), lower number is lower risk 41 [facility] Start: 11-13-2022 Gender identity Identifies as female gender (finding) [facility] Start: 11-13-2022 Sexual orientation Heterosexual (fin ding) [facility] Start: 04-05-2024 Tobacco use and exposure Former smokeless tobacco user [facility] Has the electric, gas, oil, or water [employer] threatened to shut off services in your home in past 12Mo No [employer] How hard is it for you to pay for the very basics like food, housing, medical care, and heating Somewhat hard [facility] (I/We) worried whether (my/our) food would run out before (I/we) got money to buy more. Never true [facility] Start: 05-05-2020 Sex Female (finding) [facility] NEGATED: Highlighted row [facility] Functional Status Date Assessment Result Facility 08-02-2024 Are you deaf, or do you have serious difficulty hearing No 08/02/2024 9:29 PM Lilly Kelsey, AMARILIS No [facility] 08-02-2024 Are you blind, or do you have serious difficulty seeing, even when wearing glasses No 08/02/2024 9:29 PM Lilly Kelsey, AMARILIS No [facility] 08-02-2024 Do you have serious difficulty walking or climbing stairs No 08/02/2024 9:29 PM Lilly Kelsey, AMARILIS No [facility] 08-02-2024 Do you have difficul ty dressing or bathing No 08/02/2024 9:29 PM Lilly Kelsey, AMARILIS No [facility] 08-02-2024 Because of a physica l, mental, or emotional condition, do you have difficulty doing errands alone such as visiting a physician's office or shopping No 08/02/2024 9:29 PM Lilly Kelsey, AMARILIS No [facility] 12-10-2023 Are you deaf, or do you have serious difficulty hearing No 12/10/2023 10:20 AM Elizabeth Jerry, AMARILIS No [facility] 12-10-2023 Are you blind, or do you have serious difficulty seeing, even when wearing glasses No 12/10/2023 10:20 AM Elizabeth Jerry, AMARILIS No [facility] 12-10-2023 Do you have serious difficulty walking or climbing stairs No 12/10/2023 10:20 AM Elizabeth Jerry, AMARILIS No [facility] 12-10-2023 Do you have difficul ty dressing or bathing No 12/10/2023 10:20 AM Elizabeth Jerry, AMARILIS No [facility] 12-10-2023 Because of a physica l, mental, or emotional condition, do you have difficulty doing errands alone such as visiting a physician's office or shopping No 12/10/2023 10:20 AM Elizabeth Jerry, AMARILIS No [facility] 08-17-2023 Functional Status Standard Safet y ID band on, Allergy Band on, Call device within reach, Bed in low position, Wheels locked, Upper/Half-Length side-rails up, Bedside Cart Locked, Visitor at bedside, Safety level maintained [facility] 08-17-2023 Functional Status [facility] Mental Status Date Assessment Result Facility 05-03-2025 Cognitive function Voice/Name [facility] Work Phone: 08-02-2024 Because of a physica l, mental, or emotional condition, do you have serious difficulty concentrating, remembering, or making decisions No 08/02/2024 9:29 PM Lilly Kelsey, AMARILIS No [facility] 12-10-2023 Because of a physica l, mental, or emotional condition, do you have serious difficulty concentrating, remembering, or making decisions No 12/10/2023 10:20 AM Elizabeth Jerry, AMARILIS No [facility] 09-21-2023 Cognitive function Level Of Cons ciousness Awake;Alert;Appropriate;Fol lows Commands [facility] Work Phone: 08-17-2023 Mental Status Orientation Oriented x 4 [facility] 08-17-2023 Mental Status [facility] Clinical Notes 08-27-2016 to 06-08-2025 Patient InstructionsAraseli Ramos APRN.[facility] - 06/08/2025 1:40 PM EDZafar Kohli DO - 05/27/2025 7:18 PM EDZafar Kohli DO - 05/27/2025 7:18 PM EDTDischarge Instructions Note Date & Type Note Facility 06-08-2025 Instructions Araseli Ramos APRN.[facility] - 06/08/2025 1:55 PM EDT Listed below is a live url to our [facility] meditations. Please feel free to utilize during your ketamine infusions and at your leisure. [email or web address] documented in this encounter [facility] 06-08-2025 History of Present illness Narrative [facility] [place] June 08, 2025 I have communicated my name and active licensure. The patient's identity and physical location were verified at the time of this visit. Either the patient or their legal rental sales representative has been informed of the risks and benefits of -- and alternatives to -- treatment through a remote evaluation and consents to proceed with the evaluation remotely. Becki Jackson presents for a pre-Ketamine Infusion appointment. Ketamine Infusion Date: 06/18/2025 - 06/22/2025 Last [facility] Visit: 04/25/2025 Last [facility] Ketamine Infusion Visit: 09/18/2024 - 09/22/2024 Average pain over the last 7 days: 08/03 ED Visit: Yes If Yes above, ED Visit Date: 05/27/2025 - Right shoulder pain Recent hospital admission: No If Yes above, Date of Admission If Yes above, Reason for Admission Medication changes: SEE MEDICATION LIST Did patient have PICC or other line for last infusion: No Will patient need a PICC line for upcoming infusions: No Updated weight on file at time of visit? Yes Has Becki Jackson participated in any of our pain psychology programs: Yes Pain Psychology evaluation and Individual therapy with Pain Psychology Has Becki Jackson received Ketamine infusions prior to upcoming infusion: YES If yes, date(s) of previous infusion(s) 09/18/2024 - 09/22/2024 If yes, any medications held? If repeat, what was previous dose: Yes; 0.5MG/KG Are you currently receiving Ketamine from another provider or location: NO Ketamine Red Flag: Patient: denies Denies red flags Cardiac Red Flag: No If yes, date of last cardiology visit Becki Jackson denies active . Patient made aware they will be given a pre-Infusion test or given the option to waive today or when reporting to first day of infusions: Yes Waiver signed today:No PDMP website checked and validated. All prescriptions have been APPROPRIATELY filled. No suspicious activity was identified. 06/08/2025 by Araseli Ramos APRN.[facility] Current Outpatient Medications Medication Sig Dispense Refill albuterol HFA (PROAIR HFA) 90 mcg/actuation inhaler Inhale 2 Puffs as instructed every 4 hours as needed for Wheezing/Shortness of Breath. 1 Inhaler 0 No current facility-administered medications for this visit. 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 jeremy cyst upper mid back REMOVAL GALLBLADDER SALPINGECTOMY Bilateral 06/24/2017 B/L Laprascopic Salpingectomy TONSILLECTOMY PRIMARY/SECONDARY <AGE 12 Tonsillectomy AND ADNOIDS Family History: FAMILY HISTORY Problem Relation Age of Onset Arthritis Mother Heart Mother Thyroid Mother Heart Brother Heart Maternal Uncle Prostate Cancer Maternal Grandfather Emphysema Maternal Grandfather Heart Maternal Grandfather Cancer Paternal Grandfather LUNG AND PANCREATICCANCER Emphysema Paternal Grandfather Anesthesia Problems No Family History Blood Clots No Family History Clotting Disorder No Family History Social History: SOCIAL HISTORY[1] OBJECTIVE: Wt 244 lb 0.8 oz (110.7kg) LMP 06/04/2025 PHYSICAL EXAMINATION: Physical Exam Deferred- Virtual Visit ASSESSMENT: Becki Jackson is CLEARED: KETAMINE ORDER PLACED Yes ANY MEDICATIONS HELD: no ASSESSMENT/PLAN: 1. Chronic pain syndrome - ICD9: 338.4, ICD10: G89.4 (primary diagnosis) 2. Chronic abdominal pain - ICD9: 789.00, 338.29, ICD10: R10.9, G89.29 Plan: 1. Cleared for infusions 06/18/2025 - 06/22/2025 2. 07/23/2025 Post-Ketamine follow-up with WENDIE Nuñez 3. Continue to optimize diet and exercise. I spent a total of 20 minutes on the date of the service which included preparing to see the patient, [id number] patient care, completing clinical documentation, obtaining and/or reviewing separately obtained history, counseling and educating the patient/family/caregiver, and ordering medications, tests, or procedures. Araseli Ramos APRN.CNP [1] Social History Tobacco Use Smoking status: Former Current packs/day: 0.00 Types: Cigarettes Start date: 03/08/2009 Quit date: 03/08/2013 Years since quittin.2 Smokeless tobacco: Never Substance Use Topics Alcohol use: No Drug use: No documented in this encounter [facility] 06-08-2025 Note HNO ID: [id number] Author: ARASELI RAMOS APRN.CNP Service: ? Author Type: Nurse Practitioner Type: Progress Notes Filed: 06/08/2025 13:55 Note Text: [facility] [place] June 08, 2025 I have communicated my name and active licensure. The patient's identity and physical location were verified at the time of this visit. Either the patient or their legal rental sales representative has been informed of the risks and benefits of -- and alternatives to -- treatment through a remote evaluation and consents to proceed with the evaluation remotely. Becki Jackson presents for a pre-Ketamine Infusion appointment. Ketamine Infusion Date: 06/18/2025 - 06/22/2025 Last [facility] Visit: 04/25/2025 Last [facility] Ketamine Infusion Visit: 09/18/2024 - 09/22/2024 Average pain over the last 7 days: 08/03 ED Visit: Yes If Yes above, ED Visit Date: 05/27/2025 - Right shoulder pain Recent hospital admission: No If Yes above, Date of Admission If Yes above, Reason for Admission Medication changes: SEE MEDICATION LIST Did patient have PICC or other line for last infusion: No Will patient need a PICC line for upcoming infusions: No Updated weight on file at time of visit? Yes Has Becki Jackson participated in any of our pain psychology programs: Yes Pain Psychology evaluation and Individual therapy with Pain Psychology Has Becki Jackson received Ketamine infusions prior to upcoming infusion: YES If yes, date(s) of previous infusion(s) 09/18/2024 - 09/22/2024 If yes, any medications held? If repeat, what was previous dose: Yes; 0.5MG/KG Are you currently receiving Ketamine from another provider or location: NO Ketamine Red Flag: Patient: denies Denies red flags Cardiac Red Flag: No If yes, date of last cardiology visit Becki Jackson denies active . Patient made aware they will be given a pre-Infusion test or given the option to waive today or when reporting to first day of infusions: Yes Waiver signed today:No PDMP website checked and validated. All prescriptions have been APPROPRIATELY filled. No suspicious activity was identified. 06/08/2025 by Araseli Ramos APRN.[facility] Current Outpatient Medications Medication Sig Dispense Refill albuterol HFA (PROAIR HFA) 90 mcg/actuation inhaler Inhale 2 Puffs as instructed every 4 hours as needed for Wheezing/Shortness of Breath. 1 Inhaler 0 No current facility-administered medications for this visit. 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 jeremy cyst upper mid back REMOVAL GALLBLADDER SALPINGECTOMY Bilateral 06/24/2017 B/L Laprascopic Salpingectomy TONSILLECTOMY PRIMARY/SECONDARY Tonsillectomy AND ADNOIDS Family History: FAMILY HISTORY Problem Relation Age of Onset Arthritis Mother Heart Mother Thyroid Mother Heart Brother Heart Maternal Uncle Prostate Cancer Maternal Grandfather Emphysema Maternal Grandfather Heart Maternal Grandfather Cancer Paternal Grandfather LUNG AND PANCREATICCANCER Emphysema Paternal Grandfather Anesthesia Problems No Family History Blood Clots No Family History Clotting Disorder No Family History Social History: SOCIAL HISTORY[1] OBJECTIVE: Wt 244 lb 0.8 oz (110.7kg) LMP 06/04/2025 PHYSICAL EXAMINATION: Physical Exam Deferred- Virtual Visit ASSESSMENT: Becki Jackson is CLEARED: KETAMINE ORDER PLACED Yes ANY MEDICATIONS HELD: no ASSESSMENT/PLAN: 1. Chronic pain syndrome - ICD9: 338.4, ICD10: G89.4 (primary diagnosis) 2. Chronic abdominal pain - ICD9: 789.00, 338.29, ICD10: R10.9, G89.29 Plan: 1. Cleared for infusions 06/18/2025 - 06/22/2025 2. 07/23/2025 Post-Ketamine follow-up with WENDIE Nuñez 3. Continue to optimize diet and exercise. I spent a total of 20 minutes on the date of the service which included prepari (more content not included)... [facility] 05-27-2025 Physician Emergency department Note Emergency Room Note [facility] EMERGENCY DEPARTMENT Service Date:.05/27/25 PCP: María Hernandez Chief Complaint: Chief Complaint Patient presents with Pain Right shoulder and rib pain starting this morning. Tingling in right fingers. Nki. Denies neck pain. Nauseated. States she thinks she had a fever last night but did not check. HPI Becki Jackson is a 35 y.o. female presents to the ED today right arm and right chest that has gotten progressively worse since this morning it hurts her to take a deep breath patient is a hepatology patient at [facility] for transaminitis of unknown ideology she also has gastroparesis and is seeing Dr. Alexandra undergoing evaluation for possible gastric pacing She also has pain with any right arm elevation She Says the pain shoots down the bottom aspect to her arm into her 5th and 4th finger General morbidly obese patient is awake alert and oriented x4 no acute distress Head normocephalic atraumatic HEENT pupils are equal round reactive to light and accommodation extraocular muscles are intact without ptosis exophthalmos or nystagmus, Neck no JVD or HJR no nuchal rigidity Heart regular rate S1-S2 without clicks rubs or bruit Lungs clear to auscultation bilaterally Abdomen soft nontender nondistended no peritoneal signs Genitourinary right CVA tenderness Right lateral chest wall tender to palpation Extremities no obvious injuries or deformities Skin normal appearing skin for stated age and race Neurologic NIHSS is 0 [place] coma scale is 15 Pain in the ulnar distribution on the right Spurling's test is positive on the right Psychiatric normal affect patient does not appear to be a danger to self or others Review of Systems: Review of Systems Past Medical History: Past Medical History: Diagnosis Date Acute liver failure ADHD Anxiety Bipolar 1 disorder Depression Gastroparesis Gastroparesis Hereditary vascular fragility Kidney lesion Past Surgical History: Past Surgical History: Procedure Laterality Date CHOLECYSTECTOMY KNEE SURGERY bilateral knees TONSILLECTOMY ADENOIDECTOMY TUBAL LIGATION Allergies: Allergies Allergen Reactions Amoxicillin Contrast Dye [Ivp Dye, Iodine Containing] Penicillins Sulfa Antibiotics Medications: Patient's Medications New Prescriptions No medications on file Previous Medications APIXABAN 5 MG TABLET Take 1 tablet by mouth every 12 hours. APIXABAN 5 MG TABLET Take 1 tablet by mouth every 12 hours. APIXABAN 5 MG TABLET Take 1 tablet by mouth every 12 hours. BUSPIRONE 5 MG TABLET Take 1 tablet by mouth Three times a day. CYCLOBENZAPRINE 10 MG TABLET Take 1 tablet by mouth 3 times daily as needed for Muscle spasms. GABAPENTIN 300 MG CAPSULE Take 1 capsule by mouth Three times a day. NAPROXEN 500 MG TABLET Take 1 tablet by mouth 2 times daily with meals. ONDANSETRON 4 MG TAB DISPERSIBLE TABLET Take 1 tablet by mouth every [address] on tongue TRAZODONE 50 MG TABLET take 1 to 2 tablets by mouth at bedtime Modified Medications No medications on file Discontinued Medications No medications on file Family History: History reviewed. No pertinent family history. Social History: Social History Socioeconomic History Marital status: Spouse name: Not on file Number of children: Not on file Years of education: Not on file Highest education level: Not on file Occupational History Not on file Tobacco Use Smoking status: Former Current packs/day: 0.25 Types: Cigarettes Smokeless tobacco: Former Types: Chew Vaping Use Vaping status: Every Day Substance and Sexual Activity Alcohol use: Not Currently Drug use: Never Sexual activity: Not on file Other Topics Concern Not on file Social History Narrative Not on file Social Drivers of Health Financial Resource Strain: Medium Risk (08/03/2024) Overall Financial Resource Strain (CARDIA) Difficulty of Paying Living Expenses: Somewhat hard Food Insecurity: No Food Insecurity (08/03/2024) Hunger Vital Sign Worried About Running Out of Food in the Last Year: Never true Ran Out of Food in the Last Year: Never true Transportation Needs: No Transportation Needs (08/03/2024) PRAPARE - Transportation Lack of Transportation (Medical): No Lack of Transportation (Non-Medical): No Physical Activity: Not on file Stress: Not on file Social Connections: Not on file Personal Safety: Not At Risk (08/03/2024) Humiliation, Afraid, Rape, and Kick questionnaire Fear of Current or Ex-Partner: No Emotionally Abused: No Physically Abused: No Sexually Abused: No Housing Stability: Low Risk (08/03/2024) Housing Stability Vital Sign Unable to Pay for Housing in the Last Year: No Number of Times Moved in the Last Year: 1 Homeless in the Last Year: No Physical Exam: Physical Exam Vital Signs During ED Visit Patient Vitals for the past 24 hrs: BP Temp Temp src Pulse Resp SpO2 Height Weight 05/27/25 1844 -- -- -- -- -- -- 1.626 m (5' 4) 110.7 kg (244 lb) 05/27/25 1842 144/86 97.8 F (36.6 C) Temporal 99 20 100 % -- -- Orders/Results: Orders Placed This Encounter XR CHEST [address] PE STUDY CT ABDOMEN/PELVIS WITH CONTRAST CT SPINE CERVICAL WITHOUT CONTRAST Troponin I, High sensitivity CBC, EDIF, PLATELET COMPREHENSIVE METABOLIC PANEL PROTIME-INR OXYGEN ECG dexAMETHasone (DECADRON) injection 20 mg diphenhydrAMINE (BENADRYL) injection 25 mg HYDROmorphone (DILAUDID) injection 0.5 mg Ondansetron 4mg/2ml (ZOFRAN) injection 4 mg URINALYSIS, MACRO Results for orders placed or performed during the hospital encounter of 08/22/24 TROPONIN I, HIGH SENSITIVITY Result Value Ref Range TROPONIN I, HIGH SENSITIVITY <2 0 - 12 pg/mL CBC, EDIF, PLATELET Result Value Ref Range WBC (WHITE BLOOD COUNT) 7.4 3.6 - 11.0 10*3/uL RBC 4.36 4.0 - 5.4 10*6/uL HEMOGLOBIN (HGB) 13.0 12.0 - 16.0 G/DL HEMATOCRIT (HCT) 38.9 36.0 - 48.0 % Mean Cell Volume 89.2 80.0 - 100.0 FL Mean Cell HGB 29.9 26.0 - 35.0 PG Mean Cell HGB Concentration 33.5 27.0 - 37.0 G/DL RBC Distribution 14.6 (H) 11.5 - 14.5 % PLATELET COUNT 303 130 - 400 10*3/uL Mean Platelet Volume 7.3 (L) 7.4 - 11.0 FL DIFFERENTIAL TYPE AUTO DIFF % NEUTROPHILS 64.6 37.0 - 75.0 % LYMPHOCYTE 20.7 20.0 - 55.0 % MONOCYTE % 10.8 (H) 0.0 - 10.0 % EOSINOPHIL % 3.4 0.0 - 11.0 % BASOPHIL % 0.5 0.0 - 2.0 % Absolute Neutrophil Count 4.8 1.4 - 6.5 10*3/uL LYMPHOCYTES, ABSOLUTE 1.5 1.2 - 3.4 10*3/uL MONOCYTES, ABSOLUTE 0.8 (H) 0.0 - 0.7 10*3/uL ABSOLUTE EOSINOPHIL COUNT 0.3 0.0 - 0.7 10*3/uL ABSOLUTE BASOPHIL COUNT 0.0 0.0 - 0.2 10*3/uL PROTIME-INR Result Value Ref Range PT 13.1 11.8 - 14.4 SEC INR 0.98 0.85 - 1.10 LACTATE, BLOOD Result Value Ref Range LACTATE 1.9 0.7 - 2.0 mmol/L CHEM 7 (LYTES,BUN,CREA,GLUC) Result Value Ref Range Glucose 105 (H) 70 - 100 MG/DL BUN 15 7 - 20 MG/DL CREATININE SERUM 0.80 0.70 - 1.20 MG/DL SODIUM 140 137 - 145 MMOL/L Potassium 4.1 3.5 - 5.1 MMOL/L CHLORIDE 112 (H) 98 - 107 MMOL/L CARBON DIOXIDE (CO2) 24 22 - 30 MMOL/L ESTIMATED GFR, NON AMER 88 ml/min/1.73sq.m ESTIMATED GFR, 106 ml/min/1.73sq.m GFR COMMENT Average GFR for 30-39 years old = 107. HEPATIC FUNCTION PANEL Result Value Ref Range Albumin 4.0 2.9 - 5.3 G/DL BILIRUBIN, TOTAL 0.4 0.2 - 1.3 MG/DL ALKALINE PHOSPHATASE 86 38 - 126 IU/L AST 25 14 - 36 IU/L BILIRUBIN, DIRECT 0.3 0.0 - 0.4 MG/DL PROTEIN, TOTAL 6.6 6.3 - 8.2 GM/DL ALT 26 <35 IU/L LIPASE Result Value Ref Range LIPASE 77 23 - 300 U/L Radiographic Imaging XR CHEST 1 VIEW PORTABLE (Results Pending) CT PE STUDY (Results Pending) CT ABDOMEN/PELVIS WITH CONTRAST (Results Pending) CT SPINE CERVICAL WITHOUT CONTRAST (Results Pending) Procedures: Procedures Moderate Sedation Procedure: No Medical Decision Making Amount and/or Complexity of Data Reviewed Labs: ordered. Radiology: ordered. ECG/medicine tests: ordered. Risk Prescription drug management. ED Summary/MDM EKG normal sinus rhythm rate [address] segment changes no QT prolongation no STEMI I explained to the patient layman's terms that her laboratory exam and imaging were consistent with pleurisy and cervical radiculopathy and I was going to treat her with medications that would affect both also was going to refer to see Dr. Shields but not for surgery but so she could be put through physical therapy for her radicular symptoms she agreed with this plan Suggested E/M Coding Level: 5, 56499 This has been selected based on the current CPT guidelines for E/M codes in the Emergency Department based on 2/3 of the CoPA, Data, and Risk. COPA: The patient has the following acute or chronic illness/injury that poses a possible threat to life or bodily function: [Chest pain with pleurisy in cervical radiculopathy] Data(2/3 categories following were performed): I reviewed or ordered at least three unique tests, CBC CMP troponin EKG external notes, were reviewed in the form of the patient's most recent discharge summary I independently interpreted the following test: [I viewed the patient's chest x-ray my independent interpretation is no acute intrathoracic process] Risk: This patient has a high risk of morbidity due to further diagnostic testing or treatment. Rationale: [Patient was discharged with prescriptions for gabapentin steroids and Relafen Clinical Impression: No diagnosis found. No follow-ups on file. New Prescriptions No medications on file Discontinued Medications No medications on file An After Visit Summary was printed and given to the patient with above information. . Fortino Kohli DO 05/28/25 0328 [facility] 05-27-2025 Emergency department Note Emergency Room Note [facility] EMERGENCY DEPARTMENT Service Date:.05/27/25 PCP: María Hernandez Chief Complaint: Chief Complaint Patient presents with Pain Right shoulder and rib pain starting this morning. Tingling in right fingers. Nki. Denies neck pain. Nauseated. States she thinks she had a fever last night but did not check. HPI Becki Jackson is a 35 y.o. female presents to the ED today right arm and right chest that has gotten progressively worse since this morning it hurts her to take a deep breath patient is a hepatology patient at [facility] for transaminitis of unknown ideology she also has gastroparesis and is seeing Dr. Alexandra undergoing evaluation for possible gastric pacing She also has pain with any right arm elevation She Says the pain shoots down the bottom aspect to her arm into her 5th and 4th finger General morbidly obese patient is awake alert and oriented x4 no acute distress Head normocephalic atraumatic HEENT pupils are equal round reactive to light and accommodation extraocular muscles are intact without ptosis exophthalmos or nystagmus, Neck no JVD or HJR no nuchal rigidity Heart regular rate S1-S2 without clicks rubs or bruit Lungs clear to auscultation bilaterally Abdomen soft nontender nondistended no peritoneal signs Genitourinary right CVA tenderness Right lateral chest wall tender to palpation Extremities no obvious injuries or deformities Skin normal appearing skin for stated age and race Neurologic NIHSS is 0 [place] coma scale is 15 Pain in the ulnar distribution on the right Spurling's test is positive on the right Psychiatric normal affect patient does not appear to be a danger to self or others Review of Systems: Review of Systems Past Medical History: Past Medical History: Diagnosis Date Acute liver failure ADHD Anxiety Bipolar 1 disorder Depression Gastroparesis Gastroparesis Hereditary vascular fragility Kidney lesion Past Surgical History: Past Surgical History: Procedure Laterality Date CHOLECYSTECTOMY KNEE SURGERY bilateral knees TONSILLECTOMY ADENOIDECTOMY TUBAL LIGATION Allergies: Allergies Allergen Reactions Amoxicillin Contrast Dye [Ivp Dye, Iodine Containing] Penicillins Sulfa Antibiotics Medications: Patient's Medications New Prescriptions No medications on file Previous Medications APIXABAN 5 MG TABLET Take 1 tablet by mouth every 12 hours. APIXABAN 5 MG TABLET Take 1 tablet by mouth every 12 hours. APIXABAN 5 MG TABLET Take 1 tablet by mouth every 12 hours. BUSPIRONE 5 MG TABLET Take 1 tablet by mouth Three times a day. CYCLOBENZAPRINE 10 MG TABLET Take 1 tablet by mouth 3 times daily as needed for Muscle spasms. GABAPENTIN 300 MG CAPSULE Take 1 capsule by mouth Three times a day. NAPROXEN 500 MG TABLET Take 1 tablet by mouth 2 times daily with meals. ONDANSETRON 4 MG TAB DISPERSIBLE TABLET Take 1 tablet by mouth every [address] on tongue TRAZODONE 50 MG TABLET take 1 to 2 tablets by mouth at bedtime Modified Medications No medications on file Discontinued Medications No medications on file Family History: History reviewed. No pertinent family history. Social History: Social History Socioeconomic History Marital status: Spouse name: Not on file Number of children: Not on file Years of education: Not on file Highest education level: Not on file Occupational History Not on file Tobacco Use Smoking status: Former Current packs/day: 0.25 Types: Cigarettes Smokeless tobacco: Former Types: Chew Vaping Use Vaping status: Every Day Substance and Sexual Activity Alcohol use: Not Currently Drug use: Never Sexual activity: Not on file Other Topics Concern Not on file Social History Narrative Not on file Social Drivers of Health Financial Resource Strain: Medium Risk (08/03/2024) Overall Financial Resource Strain (CARDIA) Difficulty of Paying Living Expenses: Somewhat hard Food Insecurity: No Food Insecurity (08/03/2024) Hunger Vital Sign Worried About Running Out of Food in the Last Year: Never true Ran Out of Food in the Last Year: Never true Transportation Needs: No Transportation Needs (08/03/2024) PRAPARE - Transportation Lack of Transportation (Medical): No Lack of Transportation (Non-Medical): No Physical Activity: Not on file Stress: Not on file Social Connections: Not on file Personal Safety: Not At Risk (08/03/2024) Humiliation, Afraid, Rape, and Kick questionnaire Fear of Current or Ex-Partner: No Emotionally Abused: No Physically Abused: No Sexually Abused: No Housing Stability: Low Risk (08/03/2024) Housing Stability Vital Sign Unable to Pay for Housing in the Last Year: No Number of Times Moved in the Last Year: 1 Homeless in the Last Year: No Physical Exam: Physical Exam Vital Signs During ED Visit Patient Vitals for the past 24 hrs: BP Temp Temp src Pulse Resp SpO2 Height Weight 05/27/25 1844 -- -- -- -- -- -- 1.626 m (5' 4) 110.7 kg (244 lb) 05/27/25 1842 144/86 97.8 F (36.6 C) Temporal 99 20 100 % -- -- Orders/Results: Orders Placed This Encounter XR CHEST [address] PE STUDY CT ABDOMEN/PELVIS WITH CONTRAST CT SPINE CERVICAL WITHOUT CONTRAST Troponin I, High sensitivity CBC, EDIF, PLATELET COMPREHENSIVE METABOLIC PANEL PROTIME-INR OXYGEN ECG dexAMETHasone (DECADRON) injection 20 mg diphenhydrAMINE (BENADRYL) injection 25 mg HYDROmorphone (DILAUDID) injection 0.5 mg Ondansetron 4mg/2ml (ZOFRAN) injection 4 mg URINALYSIS, MACRO Results for orders placed or performed during the hospital encounter of 08/22/24 TROPONIN I, HIGH SENSITIVITY Result Value Ref Range TROPONIN I, HIGH SENSITIVITY <2 0 - 12 pg/mL CBC, EDIF, PLATELET Result Value Ref Range WBC (WHITE BLOOD COUNT) 7.4 3.6 - 11.0 10*3/uL RBC 4.36 4.0 - 5.4 10*6/uL HEMOGLOBIN (HGB) 13.0 12.0 - 16.0 G/DL HEMATOCRIT (HCT) 38.9 36.0 - 48.0 % Mean Cell Volume 89.2 80.0 - 100.0 FL Mean Cell HGB 29.9 26.0 - 35.0 PG Mean Cell HGB Concentration 33.5 27.0 - 37.0 G/DL RBC Distribution 14.6 (H) 11.5 - 14.5 % PLATELET COUNT 303 130 - 400 10*3/uL Mean Platelet Volume 7.3 (L) 7.4 - 11.0 FL DIFFERENTIAL TYPE AUTO DIFF % NEUTROPHILS 64.6 37.0 - 75.0 % LYMPHOCYTE 20.7 20.0 - 55.0 % MONOCYTE % 10.8 (H) 0.0 - 10.0 % EOSINOPHIL % 3.4 0.0 - 11.0 % BASOPHIL % 0.5 0.0 - 2.0 % Absolute Neutrophil Count 4.8 1.4 - 6.5 10*3/uL LYMPHOCYTES, ABSOLUTE 1.5 1.2 - 3.4 10*3/uL MONOCYTES, ABSOLUTE 0.8 (H) 0.0 - 0.7 10*3/uL ABSOLUTE EOSINOPHIL COUNT 0.3 0.0 - 0.7 10*3/uL ABSOLUTE BASOPHIL COUNT 0.0 0.0 - 0.2 10*3/uL PROTIME-INR Result Value Ref Range PT 13.1 11.8 - 14.4 SEC INR 0.98 0.85 - 1.10 LACTATE, BLOOD Result Value Ref Range LACTATE 1.9 0.7 - 2.0 mmol/L CHEM 7 (LYTES,BUN,CREA,GLUC) Result Value Ref Range Glucose 105 (H) 70 - 100 MG/DL BUN 15 7 - 20 MG/DL CREATININE SERUM 0.80 0.70 - 1.20 MG/DL SODIUM 140 137 - 145 MMOL/L Potassium 4.1 3.5 - 5.1 MMOL/L CHLORIDE 112 (H) 98 - 107 MMOL/L CARBON DIOXIDE (CO2) 24 22 - 30 MMOL/L ESTIMATED GFR, NON AMER 88 ml/min/1.73sq.m ESTIMATED GFR, 106 ml/min/1.73sq.m GFR COMMENT Average GFR for 30-39 years old = 107. HEPATIC FUNCTION PANEL Result Value Ref Range Albumin 4.0 2.9 - 5.3 G/DL BILIRUBIN, TOTAL 0.4 0.2 - 1.3 MG/DL ALKALINE PHOSPHATASE 86 38 - 126 IU/L AST 25 14 - 36 IU/L BILIRUBIN, DIRECT 0.3 0.0 - 0.4 MG/DL PROTEIN, TOTAL 6.6 6.3 - 8.2 GM/DL ALT 26 <35 IU/L LIPASE Result Value Ref Range LIPASE 77 23 - 300 U/L Radiographic Imaging XR CHEST 1 VIEW PORTABLE (Results Pending) CT PE STUDY (Results Pending) CT ABDOMEN/PELVIS WITH CONTRAST (Results Pending) CT SPINE CERVICAL WITHOUT CONTRAST (Results Pending) Procedures: Procedures Moderate Sedation Procedure: No Medical Decision Making Amount and/or Complexity of Data Reviewed Labs: ordered. Radiology: ordered. ECG/medicine tests: ordered. Risk Prescription drug management. ED Summary/MDM EKG normal sinus rhythm rate [address] segment changes no QT prolongation no STEMI I explained to the patient layman's terms that her laboratory exam and imaging were consistent with pleurisy and cervical radiculopathy and I was going to treat her with medications that would affect both also was going to refer to see Dr. Shields but not for surgery but so she could be put through physical therapy for her radicular symptoms she agreed with this plan Suggested E/M Coding Level: 5, 96852 This has been selected based on the current CPT guidelines for E/M codes in the Emergency Department based on 2/3 of the CoPA, Data, and Risk. COPA: The patient has the following acute or chronic illness/injury that poses a possible threat to life or bodily function: [Chest pain with pleurisy in cervical radiculopathy] Data(2/3 categories following were performed): I reviewed or ordered at least three unique tests, CBC CMP troponin EKG external notes, were reviewed in the form of the patient's most recent discharge summary I independently interpreted the following test: [I viewed the patient's chest x-ray my independent interpretation is no acute intrathoracic process] Risk: This patient has a high risk of morbidity due to further diagnostic testing or treatment. Rationale: [Patient was discharged with prescriptions for gabapentin steroids and Relafen Clinical Impression: No diagnosis found. No follow-ups on file. New Prescriptions No medications on file Discontinued Medications No medications on file An After Visit Summary was printed and given to the patient with above information. . Fortino Kohli DO 05/28/25 0328 Patient states pain worse with movement documented in this encounter [facility] 05-27-2025 Emergency department Note Patient states pain worse with movement [facility] 05-03-2025 Radiology Diagnostic study note [facility] Imaging Services [address] [place] [address] Abdomen/Pelvis without Cont MR#: [id number] Acct: [id number] Name: BECKI JACKSON Rep #: [id number] : 1990 F 35 From: Jovi Tang MD PCP: Dr. María Hernandez MD Status: R EG ER Study:Abdomen/Pelvis without Cont Date of Exa m: 05/03/25 Exam# [id number] Ordering Dr: Edilson Michael DO PROCEDURE: ABDOMEN/PELVIS WITHOUT CONT 05/03/2025 REASON FOR EXAM: RIGHT FLANK PAIN Gastroparesis. TECHNIQUE: ABDOMEN/PELVIS WITHOUT CONT Noncontrast technique limits evaluation of the abdominal and pelvic viscera. Coronal and Sagittal reconstruction series were provided. One or more dose reduction techniques were used (e.g., Automated exposure control, adjustment of the mA and/or kV according to patient size, use of iterative reconstruction technique). RADIATION DOSE SUMMARY: CTDlvol: 24.18 mGy DLP: 1328.96 mGycm COMPARISON: Prior study dated July 18, 2024. FINDINGS: Lung bases: Unremarkable. Liver: Normal size. No obvious mass. Gallbladder: Surgically absent. Spleen: Normal size. Pancreas: Normal size. No surrounding inflammation. Adrenals: Unremarkable Kidneys: No urolithiasis. No hydronephrosis. Bladder: Unremarkable. Reproductive Organs: Uterus is unremarkable. Bowel: Unremarkable Appendix: The appendix is not identified. There is no inflammatory process identified in the right lower quadrant to suggest appendicitis. Lymph nodes: No suspicious lymph node enlargement. Vasculature: The abdominal aorta and IVC contours are normal. Noncontrast technique limits evaluation. Peritoneum / Retroperitoneum: Unremarkable Bones: Unremarkable CT/Abdomen/Pelvis without Cont IMPRESSION: UNREMARKABLE NONCONTRAST CT OF THE ABDOMEN AND PELVIS Reading Location: [place] [address] CC: Dr. Edilson Michael DO; Dr. María Hernandez MD ~ R Developer: Signed [facility] 05-03-2025 Radiology Diagnostic study note [facility] Imaging Services [address] [place], [place] [address] Chest 1 View (Portable) MR#: [id number] Acct: [id number] Name: BECKI JACKSON Rep #: [id number] : 1990 F 35 From: Sergio Isaac MD PCP: Dr. María Hernandez MD Status: P RE ER Study:Chest 1 View (Portable) Date of Exam: 05/03/25 Exam# [id number] Ordering Dr: Edilson Michael DO PROCEDURE: CHEST 1 VIEW (PORTABLE) 05/03/2025 REASON FOR EXAM: CHEST PAIN TECHNIQUE: Frontal view of the chest. COMPARISON: Chest x-ray of 07/10/2022. FINDINGS: Heart: The heart size is normal. Lungs: The lungs are clear. No pleural effusion or pneumothorax is seen. Bones: The bones are unremarkable. RAD/Chest 1 View (Portable) IMPRESSION: Negative Chest. Reading Location: [address] CC: Dr. Edilson Michael DO; Dr. María Hernandez MD ~ R Developer: Signed [facility] 04-25-2025 History of Present illness Narrative Images from the original note were not included. THE [facility] [place] April 25, 2025 I have communicated my name and active licensure. The patient's identity and physical location were verified at the time of this visit. Either the patient or their legal rental sales representative has been informed of the risks and benefits of -- and alternatives to -- treatment through a remote evaluation and consents to proceed with the evaluation remotely. Recording using [employer] software for draft documentation of the visit was discussed with the patient/authorized rental sales representative; all questions welcomed and answered. Patient/authorized rental sales representative agreed to proceed SUBJECTIVE: Becki Jackson presents for a follow-up appointment for ketamine infusions. The patient states the infusion provided 20-25% relief. Ketamine infusions 09/18/24 to 09/22/24 - ketamine 0.5 mg/kg 2nd round Taking tylenol, motrin for pain. Becki Jackson is a 35-year-old female presenting for follow-up and to discuss repeating ketamine infusions. Becki was last seen in June of last year and underwent her second round of ketamine infusions in August. She reports that the infusions provided approximately 20-25% pain relief, which lasted for about a month. The effects were noticed about a week after the infusions and also included improvements in focus and depression. She does not endorse any side effects from the ketamine. During the week of infusions, she did not experience any new stressors, medication changes, infections, or injuries. She listened to a varied playlist of music during the infusions. She reports that her pain remains severe, with a rating of 9/10 over the past week. The most significant pain is abdominal, and she identifies heat and eating as triggers. She continues to manage her pain with heat, ice, and relaxation techniques. She occasionally takes Tylenol but is no longer using gabapentin. She is not currently taking her prescribed medications for mental health, including buspirone, Invega, and Klonopin, and plans to follow up with her doctors for refills. She does not report any new health issues or concerns, including heart issues, strokes, or seizures. She missed her previous appointment due to incarceration, which she attributes to a misunderstanding related to a positive drug test for ketamine. She reports difficulty obtaining her medical records to verify her treatment. Average pain over the last 7 days: 9/10 Since the end of the infusion, my overall status is: 5-6 Very much worsened Much worsened Minimally worsened No change Minimally improved Much improved Very much improved Patient Entered Questionnaires 06/23/2023 05/13/2024 06/24/2024 PROMIS CAT Fatigue PROMIS Fatigue T-Score 67 (moderate) 76 (severe) 64 (moderate) PROMIS Fatigue Percentile 4 0 8 06/23/2023 05/13/2024 06/24/2024 PROMIS CAT Pain Interference PROMIS Pain Interference T-Score (range: 10 - 90) 76 (severe) 78 (severe) 81 (severe) PROMIS Pain Interference Percentile 0 0 0 06/23/2023 05/13/2024 06/24/2024 PROMIS CAT Satisfaction with Social Roles PROMIS - Satisfaction with Participation in Social Roles T-Score 39 (Low) 36 (Low) 37 (Low) PROMIS Social Role Satisfaction Percentile 14 8 10 06/24/2023 05/13/2024 06/24/2024 PROMIS CAT Self-Efficacy Manage Symptoms PROMIS Self-Efficacy for Managing Symptoms T-Score 36 (Low) 34 (Low) 35 (Low) PROMIS Self-Efficacy Manage Symptoms Percentile 8 5 7 01/20/2023 05/23/2023 05/13/2024 PROMIS Global Health Scale Physical Health Percentile 7 7 7 2 Mental Health Percentile 3 5 5 2 01/20/2023 05/23/2023 05/13/2024 PROMIS Global Health - (T-Scores - the mean of general population = 50. Five points is a clinically meaningful difference.) Physical T-Score 34.9 34.9 34.9 29.6 Mental T-Score 31.3 33.8 33.8 28.4 06/23/2023 05/13/2024 06/24/2024 Pain Catastrophizing Scale (PCS) - Scores Rumination Subscore 3 14 13 Magnification Subscore 0 4 4 Helplessness Subscore 19 14 PCS Total Score 37 31 06/23/2023 05/13/2024 06/24/2024 STEVE - 7 SCORES Score 12 19 16 06/24/2023 05/13/2024 06/24/2024 PHQ-9 PHQ-2 Score 2 6 6 PHQ-9 Score 14 (Moderate Depression) 23 (Severe Depression) 22 (Severe Depression) ASSESSMENT: Chronic pain syndrome Chronic abdominal pain (primary encounter diagnosis) Gastroparesis Bipolar i disorder, most recent episode (or current) manic ([facility]) PLAN: 1. Chronic pain syndrome (G89.4) 2. Chronic abdominal pain (R10.9) 3. Gastroparesis (K31.84) - Completed second round of ketamine infusions in August with approximately 20-25% pain relief lasting about a month; no side effects reported. - Pain level in the last week reported as 9/10; worst pain localized to the abdomen. - Triggers include heat and eating. - Utilizes heat and ice for pain management. - Ordered a higher dose of ketamine infusion at 0.6 mg/kg. - Coordinator will contact patient for scheduling; patient advised to read pre-infusion instructions. - Recommended listening to Binaural Beats with alpha waves during infusions for enhanced relaxation and potential pain relief. 4. Bipolar I disorder, most recent episode (or current) manic ([facility]) (F31.10) - Currently not taking buspirone, Invega, or Klonopin; will request refills from Dr. Alexandra. - Noted improvement in depression and focus following ketamine infusions. Medical Decision Making: Problems: Moderate: 1+ chronic illnesses with change Data: Unique source(s) for external note(s) reviewed: 1 Unique test(s) ordered: 1 Risk: Moderate: Drug management Medical Decision Making Level: 4 - Moderate Lucas Hancock PA-C Important Patient Information: 1. To schedule Pain Recovery appointments or post-injection office visits, please call: [phone] 2. The nursing staff and medical assistants are a part of your pain recovery team and will be handling your phone calls and inquiries. 3. Your study results and treatment plan will be discussed during a follow-up appointment. If you do not have a follow-up appointment and wish to discuss any issues directly with me, please call: [phone] to set-up an appointment. 4. [employer] is best used for refill requests or yes or no questions. Anything more complicated will likely require a follow-up appointment that you can schedule by [phone]. 5. If you are scheduled for a ketamine infusion, you will be contacted regarding specific scheduling instructions in the future by our department. There is no need to contact our department regarding the scheduling process or your estimated wait; you will be contacted once there is an opening. documented in this encounter [facility] 04-25-2025 Note HNO ID: [id number] Author: LUCAS HANCOCK PA-C Service: ? Author Type: Physician Linux Unix Engineer Type: Progress Notes Filed: 04/25/2025 11:40 Note Text: THE [facility] [place] April 25, 2025 I have communicated my name and active licensure. The patient's identity and physical location were verified at the time of this visit. Either the patient or their legal rental sales representative has been informed of the risks and benefits of -- and alternatives to -- treatment through a remote evaluation and consents to proceed with the evaluation remotely. Recording using [employer] software for draft documentation of the visit was discussed with the patient/authorized rental sales representative; all questions welcomed and answered. Patient/authorized rental sales representative agreed to proceed SUBJECTIVE: Becki Jackson presents for a follow-up appointment for ketamine infusions. The patient states the infusion provided 20-25% relief. Ketamine infusions 09/18/24 to 09/22/24 - ketamine 0.5 mg/kg 2nd round Taking tylenol, motrin for pain. Becki Jackson is a 35-year-old female presenting for follow-up and to discuss repeating ketamine infusions. Becki was last seen in June of last year and underwent her second round of ketamine infusions in August. She reports that the infusions provided approximately 20-25% pain relief, which lasted for about a month. The effects were noticed about a week after the infusions and also included improvements in focus and depression. She does not endorse any side effects from the ketamine. During the week of infusions, she did not experience any new stressors, medication changes, infections, or injuries. She listened to a varied playlist of music during the infusions. She reports that her pain remains severe, with a rating of 9/10 over the past week. The most significant pain is abdominal, and she identifies heat and eating as triggers. She continues to manage her pain with heat, ice, and relaxation techniques. She occasionally takes Tylenol but is no longer using gabapentin. She is not currently taking her prescribed medications for mental health, including buspirone, Invega, and Klonopin, and plans to follow up with her doctors for refills. She does not report any new health issues or concerns, including heart issues, strokes, or seizures. She missed her previous appointment due to incarceration, which she attributes to a misunderstanding related to a positive drug test for ketamine. She reports difficulty obtaining her medical records to verify her treatment. Average pain over the last 7 days: 9/10 Since the end of the infusion, my overall status is: 5-6 Very much worsened Much worsened Minimally worsened No change Minimally improved Much improved Very much improved Patient Entered Questionnaires 06/23/2023 05/13/2024 06/24/2024 PROMIS CAT Fatigue PROMIS Fatigue T-Score 67 (moderate) 76 (severe) 64 (moderate) PROMIS Fatigue Percentile 4 0 8 06/23/2023 05/13/2024 06/24/2024 PROMIS CAT Pain Interference PROMIS Pain Interference T-Score (range: 10 - 90) 76 (severe) 78 (severe) 81 (severe) PROMIS Pain Interference Percentile 0 0 0 06/23/2023 05/13/2024 06/24/2024 PROMIS CAT Satisfaction with Social Roles PROMIS - Satisfaction with Participation in Social Roles T-Score 39 (Low) 36 (Low) 37 (Low) PROMIS Social Role Satisfaction Percentile 14 8 10 06/24/2023 05/13/2024 06/24/2024 PROMIS CAT Self-Efficacy Manage Symptoms PROMIS Self-Efficacy for Managing Symptoms T-Score 36 (Low) 34 (Low) 35 (Low) PROMIS Self-Efficacy Manage Symptoms Percentile 8 5 7 01/20/2023 05/23/2023 05/13/2024 PROMIS Global Health Scale Physical Health Percentile 7 7 7 2 Mental Health Percentile 3 5 5 2 01/20/2023 05/23/2023 05/13/2024 PROMIS Global Health - (T-Scores - the mean of general population = 50. Five points is a clinically meaningful difference.) Physical T-Score 34.9 34.9 34.9 29.6 Mental T-Score 31.3 33.8 33.8 28.4 06/23/2023 05/13/2024 06/24/2024 Pain Catastrophizing Scale (PCS) - Scores Rumination Subscore 3 14 13 Magnification Subscore 0 4 4 Helplessness Subscore 19 14 PCS Total Score 37 31 06/23/2023 05/13/2024 06/24/2024 STEVE - 7 SCORES Score 12 19 16 06/24/2023 05/13/2024 06/24/2024 PHQ-9 PHQ-2 Score 2 6 6 PHQ-9 Score 14 (Moderate Depression) 23 (Severe Depression) 22 (Severe Depression) ASSESSMENT: Chronic pain syndrome Chronic abdominal pain (primary encounter diagnosis) Gastroparesis Bipolar i disorder, most recent episode (or current) manic ([facility]) PLAN: 1. Chronic pain syndrome (G89.4) 2. Chronic abdominal pain (R10.9) 3. Gastroparesis (K31.84) - Completed second round of ketamine infusions in August with approximately 20-25% pain relief lasting about a month; no side effects reported. - Pain level in the last week reported as 9/10; worst pain localized to (more content not included)... [facility] 04-22-2025 Emergency department Note This RN verbally reviewed the printed discharge instructions with the pt at the bedside. Confirmed the pharmacy listed is correct and reviewed the medications to be picked up. Pt acknowledges medications and denies any questions or concerns. Reviewed reasons to return to the ED including but not limited to: inability to walk, urinate, or move bowels, or fever. Pt is ambulatory from the ED under her own power and meets significant other in the parking lot. [facility] 04-22-2025 Emergency department Note This RN verbally reviewed the printed discharge instructions with the pt at the bedside. Confirmed the pharmacy listed is correct and reviewed the medications to be picked up. Pt acknowledges medications and denies any questions or concerns. Reviewed reasons to return to the ED including but not limited to: inability to walk, urinate, or move bowels, or fever. Pt is ambulatory from the ED under her own power and meets significant other in the parking lot. Pt moved to Room 24 for comfort Emergency Department Report [facility] EMERGENCY DEPARTMENT Service Date:.04/22/25 PCP: María Hernandez Chief Complaint: Chief Complaint Patient presents with Back Pain Per pt, I have bulging discs in my back and I can't handle the pain. It feels numb to my feet. Pt complains 10/10 back pain. Pt took tylenol around 11am HPI Becki Jackson is a 35 y.o. female presents to the ED today due to complaints of back pain and disc disease. She states she was seen in August at [facility] and diagnosed with disc disease. She has been trying to get a referral from her primary care provider to specialist for evaluation. She states she continues to have pain, she describes pain to her lumbar back with radiation into the buttocks and to the right thigh mostly. She denies any bowel or bladder incontinence, any fevers chills, or any focal weakness. CT of lumbar spine from September 04 showed: There is [id number] disc space narrowing at L4-L5 compatible with disc degeneration. There is moderate spinal canal and bilateral lateral recess stenosis and [id number] bilateral foraminal stenosis. This is secondary to broad-based disc protrusion, facet arthropathy, ligamentum flavum hypertrophy. Review of Systems: Review of Systems Constitutional: Negative for fatigue and fever. HENT: Negative. Respiratory: Negative for cough and shortness of breath. Cardiovascular: Negative for chest pain and leg swelling. Gastrointestinal: Negative for abdominal pain. Genitourinary: Negative for difficulty urinating. Musculoskeletal: Positive for arthralgias, back pain and myalgias. Skin: Negative. Neurological: Positive for numbness. Negative for dizziness, weakness and light-headedness. All other systems reviewed and are negative. Past Medical History: Past Medical History: Diagnosis Date Acute liver failure ADHD Anxiety Bipolar 1 disorder Depression Gastroparesis Gastroparesis Hereditary vascular fragility Kidney lesion Past Surgical History: Past Surgical History: Procedure Laterality Date CHOLECYSTECTOMY KNEE SURGERY bilateral knees TONSILLECTOMY ADENOIDECTOMY TUBAL LIGATION Allergies: Allergies Allergen Reactions Amoxicillin Contrast Dye [Ivp Dye, Iodine Containing] Penicillins Sulfa Antibiotics Medications: Patient's Medications New Prescriptions No medications on file Previous Medications APIXABAN 5 MG TABLET Take 1 tablet by mouth every 12 hours. APIXABAN 5 MG TABLET Take 1 tablet by mouth every 12 hours. APIXABAN 5 MG TABLET Take 1 tablet by mouth every 12 hours. BUSPIRONE 5 MG TABLET Take 1 tablet by mouth Three times a day. CYCLOBENZAPRINE 10 MG TABLET Take 1 tablet by mouth 3 times daily as needed for Muscle spasms. GABAPENTIN 300 MG CAPSULE Take 1 capsule by mouth Three times a day. NAPROXEN 500 MG TABLET Take 1 tablet by mouth 2 times daily as needed. ONDANSETRON 4 MG TAB DISPERSIBLE TABLET Take 1 tablet by mouth every [address] on tongue TRAZODONE 50 MG TABLET take 1 to 2 tablets by mouth at bedtime Modified Medications No medications on file Discontinued Medications No medications on file Family History: History reviewed. No pertinent family history. Social History: Social History Socioeconomic History Marital status: Spouse name: Not on file Number of children: Not on file Years of education: Not on file Highest education level: Not on file Occupational History Not on file Tobacco Use Smoking status: Former Current packs/day: 0.25 Types: Cigarettes Smokeless tobacco: Former Types: Chew Vaping Use Vaping status: Every Day Substance and Sexual Activity Alcohol use: Not Currently Drug use: Never Sexual activity: Not on file Other Topics Concern Not on file Social History Narrative Not on file Social Drivers of Health Financial Resource Strain: Medium Risk (08/03/2024) Overall Financial Resource Strain (CARDIA) Difficulty of Paying Living Expenses: Somewhat hard Food Insecurity: No Food Insecurity (08/03/2024) Hunger Vital Sign Worried About Running Out of Food in the Last Year: Never true Ran Out of Food in the Last Year: Never true Transportation Needs: No Transportation Needs (08/03/2024) PRAPARE - Transportation Lack of Transportation (Medical): No Lack of Transportation (Non-Medical): No Physical Activity: Not on file Stress: Not on file Social Connections: Not on file Personal Safety: Not At Risk (08/03/2024) Humiliation, Afraid, Rape, and Kick questionnaire Fear of Current or Ex-Partner: No Emotionally Abused: No Physically Abused: No Sexually Abused: No Housing Stability: Low Risk (08/03/2024) Housing Stability Vital Sign Unable to Pay for Housing in the Last Year: No Number of Times Moved in the Last Year: 1 Homeless in the Last Year: No Physical Exam: Physical Exam Vitals and nursing note reviewed. Constitutional: Appearance: Normal appearance. She is obese. HENT: Nose: Nose normal. Mouth/Throat: Mouth: Mucous membranes are moist. Cardiovascular: Rate and Rhythm: Normal rate and regular rhythm. Pulses: Normal pulses. Heart sounds: Normal heart sounds. Pulmonary: Effort: Pulmonary effort is normal. Breath sounds: Normal breath sounds. Abdominal: General: Abdomen is flat. Bowel sounds are normal. Palpations: Abdomen is soft. Musculoskeletal: General: Normal range of motion. Skin: General: Skin is warm. Capillary Refill: Capillary refill takes less than 2 seconds. Neurological: General: No focal deficit present. Mental Status: She is alert and oriented to person, place, and time. Sensory: No sensory deficit. Motor: No weakness. Deep Tendon Reflexes: Reflexes normal. Psychiatric: Mood and Affect: Mood normal. Vital Signs During ED Visit Patient Vitals for the past 24 hrs: BP Temp Pulse Resp SpO2 Height 04/22/25 1608 -- -- -- -- -- 1.626 m (5' 4) 04/22/25 1607 150/79 98.5 F (36.9 C) 96 20 96 % -- Orders/Results: Orders Placed This Encounter Ketorolac (TORADOL) injection 30 mg Cyclobenzaprine (FLEXERIL) tablet 10 mg Results for orders placed or performed during the hospital encounter of 08/22/24 TROPONIN I, HIGH SENSITIVITY Result Value Ref Range TROPONIN I, HIGH SENSITIVITY <2 0 - 12 pg/mL CBC, EDIF, PLATELET Result Value Ref Range WBC (WHITE BLOOD COUNT) 7.4 3.6 - 11.0 10*3/uL RBC 4.36 4.0 - 5.4 10*6/uL HEMOGLOBIN (HGB) 13.0 12.0 - 16.0 G/DL HEMATOCRIT (HCT) 38.9 36.0 - 48.0 % Mean Cell Volume 89.2 80.0 - 100.0 FL Mean Cell HGB 29.9 26.0 - 35.0 PG Mean Cell HGB Concentration 33.5 27.0 - 37.0 G/DL RBC Distribution 14.6 (H) 11.5 - 14.5 % PLATELET COUNT 303 130 - 400 10*3/uL Mean Platelet Volume 7.3 (L) 7.4 - 11.0 FL DIFFERENTIAL TYPE AUTO DIFF % NEUTROPHILS 64.6 37.0 - 75.0 % LYMPHOCYTE 20.7 20.0 - 55.0 % MONOCYTE % 10.8 (H) 0.0 - 10.0 % EOSINOPHIL % 3.4 0.0 - 11.0 % BASOPHIL % 0.5 0.0 - 2.0 % Absolute Neutrophil Count 4.8 1.4 - 6.5 10*3/uL LYMPHOCYTES, ABSOLUTE 1.5 1.2 - 3.4 10*3/uL MONOCYTES, ABSOLUTE 0.8 (H) 0.0 - 0.7 10*3/uL ABSOLUTE EOSINOPHIL COUNT 0.3 0.0 - 0.7 10*3/uL ABSOLUTE BASOPHIL COUNT 0.0 0.0 - 0.2 10*3/uL PROTIME-INR Result Value Ref Range PT 13.1 11.8 - 14.4 SEC INR 0.98 0.85 - 1.10 LACTATE, BLOOD Result Value Ref Range LACTATE 1.9 0.7 - 2.0 mmol/L CHEM 7 (LYTES,BUN,CREA,GLUC) Result Value Ref Range Glucose 105 (H) 70 - 100 MG/DL BUN 15 7 - 20 MG/DL CREATININE SERUM 0.80 0.70 - 1.20 MG/DL SODIUM 140 137 - 145 MMOL/L Potassium 4.1 3.5 - 5.1 MMOL/L CHLORIDE 112 (H) 98 - 107 MMOL/L CARBON DIOXIDE (CO2) 24 22 - 30 MMOL/L ESTIMATED GFR, NON AMER 88 ml/min/1.73sq.m ESTIMATED GFR, 106 ml/min/1.73sq.m GFR COMMENT Average GFR for 30-39 years old = 107. HEPATIC FUNCTION PANEL Result Value Ref Range Albumin 4.0 2.9 - 5.3 G/DL BILIRUBIN, TOTAL 0.4 0.2 - 1.3 MG/DL ALKALINE PHOSPHATASE 86 38 - 126 IU/L AST 25 14 - 36 IU/L BILIRUBIN, DIRECT 0.3 0.0 - 0.4 MG/DL PROTEIN, TOTAL 6.6 6.3 - 8.2 GM/DL ALT 26 <35 IU/L LIPASE Result Value Ref Range LIPASE 77 23 - 300 U/L Radiographic Imaging No orders to display Procedures: Procedures Moderate Sedation Procedure: No ED Summary/MDM Patient is a 35-year-old female who presents with complaints of back pain. She has been having ongoing pain and had CT scan on September 04 which showed disc disease. She continues to have pain and presents ER today with pain consistent with a radiculopathy. There has been no trauma or injury since her prior event. She was given Toradol 30 mg IM, Flexeril 10 mg p.o.. She will be discharged home to follow up with Dr. Neal as an outpatient for further evaluation of potential treatment options. Clinical Impression: Back Pain Radiculopathy No follow-ups on file. New Prescriptions No medications on file Discontinued Medications No medications on file An After Visit Summary was printed and given to the patient with above information. Claire Shane MD 04/22/25 1659 documented in this encounter [facility] 04-22-2025 Emergency department Note Pt moved to Room 24 for comfort [facility] 04-22-2025 Physician Emergency department Note Emergency Department Report [facility] EMERGENCY DEPARTMENT Service Date:.04/22/25 PCP: María Hernandez Chief Complaint: Chief Complaint Patient presents with Back Pain Per pt, I have bulging discs in my back and I can't handle the pain. It feels numb to my feet. Pt complains 10/10 back pain. Pt took tylenol around 11am HPI Becki Jackson is a 35 y.o. female presents to the ED today due to complaints of back pain and disc disease. She states she was seen in August at [facility] and diagnosed with disc disease. She has been trying to get a referral from her primary care provider to specialist for evaluation. She states she continues to have pain, she describes pain to her lumbar back with radiation into the buttocks and to the right thigh mostly. She denies any bowel or bladder incontinence, any fevers chills, or any focal weakness. CT of lumbar spine from September 04 showed: There is [id number] disc space narrowing at L4-L5 compatible with disc degeneration. There is moderate spinal canal and bilateral lateral recess stenosis and [id number] bilateral foraminal stenosis. This is secondary to broad-based disc protrusion, facet arthropathy, ligamentum flavum hypertrophy. Review of Systems: Review of Systems Constitutional: Negative for fatigue and fever. HENT: Negative. Respiratory: Negative for cough and shortness of breath. Cardiovascular: Negative for chest pain and leg swelling. Gastrointestinal: Negative for abdominal pain. Genitourinary: Negative for difficulty urinating. Musculoskeletal: Positive for arthralgias, back pain and myalgias. Skin: Negative. Neurological: Positive for numbness. Negative for dizziness, weakness and light-headedness. All other systems reviewed and are negative. Past Medical History: Past Medical History: Diagnosis Date Acute liver failure ADHD Anxiety Bipolar 1 disorder Depression Gastroparesis Gastroparesis Hereditary vascular fragility Kidney lesion Past Surgical History: Past Surgical History: Procedure Laterality Date CHOLECYSTECTOMY KNEE SURGERY bilateral knees TONSILLECTOMY ADENOIDECTOMY TUBAL LIGATION Allergies: Allergies Allergen Reactions Amoxicillin Contrast Dye [Ivp Dye, Iodine Containing] Penicillins Sulfa Antibiotics Medications: Patient's Medications New Prescriptions No medications on file Previous Medications APIXABAN 5 MG TABLET Take 1 tablet by mouth every 12 hours. APIXABAN 5 MG TABLET Take 1 tablet by mouth every 12 hours. APIXABAN 5 MG TABLET Take 1 tablet by mouth every 12 hours. BUSPIRONE 5 MG TABLET Take 1 tablet by mouth Three times a day. CYCLOBENZAPRINE 10 MG TABLET Take 1 tablet by mouth 3 times daily as needed for Muscle spasms. GABAPENTIN 300 MG CAPSULE Take 1 capsule by mouth Three times a day. NAPROXEN 500 MG TABLET Take 1 tablet by mouth 2 times daily as needed. ONDANSETRON 4 MG TAB DISPERSIBLE TABLET Take 1 tablet by mouth every [address] on tongue TRAZODONE 50 MG TABLET take 1 to 2 tablets by mouth at bedtime Modified Medications No medications on file Discontinued Medications No medications on file Family History: History reviewed. No pertinent family history. Social History: Social History Socioeconomic History Marital status: Spouse name: Not on file Number of children: Not on file Years of education: Not on file Highest education level: Not on file Occupational History Not on file Tobacco Use Smoking status: Former Current packs/day: 0.25 Types: Cigarettes Smokeless tobacco: Former Types: Chew Vaping Use Vaping status: Every Day Substance and Sexual Activity Alcohol use: Not Currently Drug use: Never Sexual activity: Not on file Other Topics Concern Not on file Social History Narrative Not on file Social Drivers of Health Financial Resource Strain: Medium Risk (08/03/2024) Overall Financial Resource Strain (CARDIA) Difficulty of Paying Living Expenses: Somewhat hard Food Insecurity: No Food Insecurity (08/03/2024) Hunger Vital Sign Worried About Running Out of Food in the Last Year: Never true Ran Out of Food in the Last Year: Never true Transportation Needs: No Transportation Needs (08/03/2024) PRAPARE - Transportation Lack of Transportation (Medical): No Lack of Transportation (Non-Medical): No Physical Activity: Not on file Stress: Not on file Social Connections: Not on file Personal Safety: Not At Risk (08/03/2024) Humiliation, Afraid, Rape, and Kick questionnaire Fear of Current or Ex-Partner: No Emotionally Abused: No Physically Abused: No Sexually Abused: No Housing Stability: Low Risk (08/03/2024) Housing Stability Vital Sign Unable to Pay for Housing in the Last Year: No Number of Times Moved in the Last Year: 1 Homeless in the Last Year: No Physical Exam: Physical Exam Vitals and nursing note reviewed. Constitutional: Appearance: Normal appearance. She is obese. HENT: Nose: Nose normal. Mouth/Throat: Mouth: Mucous membranes are moist. Cardiovascular: Rate and Rhythm: Normal rate and regular rhythm. Pulses: Normal pulses. Heart sounds: Normal heart sounds. Pulmonary: Effort: Pulmonary effort is normal. Breath sounds: Normal breath sounds. Abdominal: General: Abdomen is flat. Bowel sounds are normal. Palpations: Abdomen is soft. Musculoskeletal: General: Normal range of motion. Skin: General: Skin is warm. Capillary Refill: Capillary refill takes less than 2 seconds. Neurological: General: No focal deficit present. Mental Status: She is alert and oriented to person, place, and time. Sensory: No sensory deficit. Motor: No weakness. Deep Tendon Reflexes: Reflexes normal. Psychiatric: Mood and Affect: Mood normal. Vital Signs During ED Visit Patient Vitals for the past 24 hrs: BP Temp Pulse Resp SpO2 Height 04/22/25 1608 -- -- -- -- -- 1.626 m (5' 4) 04/22/25 1607 150/79 98.5 F (36.9 C) 96 20 96 % -- Orders/Results: Orders Placed This Encounter Ketorolac (TORADOL) injection 30 mg Cyclobenzaprine (FLEXERIL) tablet 10 mg Results for orders placed or performed during the hospital encounter of 08/22/24 TROPONIN I, HIGH SENSITIVITY Result Value Ref Range TROPONIN I, HIGH SENSITIVITY <2 0 - 12 pg/mL CBC, EDIF, PLATELET Result Value Ref Range WBC (WHITE BLOOD COUNT) 7.4 3.6 - 11.0 10*3/uL RBC 4.36 4.0 - 5.4 10*6/uL HEMOGLOBIN (HGB) 13.0 12.0 - 16.0 G/DL HEMATOCRIT (HCT) 38.9 36.0 - 48.0 % Mean Cell Volume 89.2 80.0 - 100.0 FL Mean Cell HGB 29.9 26.0 - 35.0 PG Mean Cell HGB Concentration 33.5 27.0 - 37.0 G/DL RBC Distribution 14.6 (H) 11.5 - 14.5 % PLATELET COUNT 303 130 - 400 10*3/uL Mean Platelet Volume 7.3 (L) 7.4 - 11.0 FL DIFFERENTIAL TYPE AUTO DIFF % NEUTROPHILS 64.6 37.0 - 75.0 % LYMPHOCYTE 20.7 20.0 - 55.0 % MONOCYTE % 10.8 (H) 0.0 - 10.0 % EOSINOPHIL % 3.4 0.0 - 11.0 % BASOPHIL % 0.5 0.0 - 2.0 % Absolute Neutrophil Count 4.8 1.4 - 6.5 10*3/uL LYMPHOCYTES, ABSOLUTE 1.5 1.2 - 3.4 10*3/uL MONOCYTES, ABSOLUTE 0.8 (H) 0.0 - 0.7 10*3/uL ABSOLUTE EOSINOPHIL COUNT 0.3 0.0 - 0.7 10*3/uL ABSOLUTE BASOPHIL COUNT 0.0 0.0 - 0.2 10*3/uL PROTIME-INR Result Value Ref Range PT 13.1 11.8 - 14.4 SEC INR 0.98 0.85 - 1.10 LACTATE, BLOOD Result Value Ref Range LACTATE 1.9 0.7 - 2.0 mmol/L CHEM 7 (LYTES,BUN,CREA,GLUC) Result Value Ref Range Glucose 105 (H) 70 - 100 MG/DL BUN 15 7 - 20 MG/DL CREATININE SERUM 0.80 0.70 - 1.20 MG/DL SODIUM 140 137 - 145 MMOL/L Potassium 4.1 3.5 - 5.1 MMOL/L CHLORIDE 112 (H) 98 - 107 MMOL/L CARBON DIOXIDE (CO2) 24 22 - 30 MMOL/L ESTIMATED GFR, NON AMER 88 ml/min/1.73sq.m ESTIMATED GFR, 106 ml/min/1.73sq.m GFR COMMENT Average GFR for 30-39 years old = 107. HEPATIC FUNCTION PANEL Result Value Ref Range Albumin 4.0 2.9 - 5.3 G/DL BILIRUBIN, TOTAL 0.4 0.2 - 1.3 MG/DL ALKALINE PHOSPHATASE 86 38 - 126 IU/L AST 25 14 - 36 IU/L BILIRUBIN, DIRECT 0.3 0.0 - 0.4 MG/DL PROTEIN, TOTAL 6.6 6.3 - 8.2 GM/DL ALT 26 <35 IU/L LIPASE Result Value Ref Range LIPASE 77 23 - 300 U/L Radiographic Imaging No orders to display Procedures: Procedures Moderate Sedation Procedure: No ED Summary/MDM Patient is a 35-year-old female who presents with complaints of back pain. She has been having ongoing pain and had CT scan on September 04 which showed disc disease. She continues to have pain and presents ER today with pain consistent with a radiculopathy. There has been no trauma or injury since her prior event. She was given Toradol 30 mg IM, Flexeril 10 mg p.o.. She will be discharged home to follow up with Dr. Neal as an outpatient for further evaluation of potential treatment options. Clinical Impression: Back Pain Radiculopathy No follow-ups on file. New Prescriptions No medications on file Discontinued Medications No medications on file An After Visit Summary was printed and given to the patient with above information. 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 Flanagan VIDHYA: Visit date not found [facility]: 08/15/24 NOV: Visit date not found NDH: Spoke with patient - confirmed patient is requesting refill. Yes Has patient been seen within the year? Yes Pharmacy updated: Yes Medication pended - please file if appropriate. [facility] 11-03-2024 Miscellaneous Notes Name of medication: Aprepitant Name of ordering provider: Dr. Flanagan VIDHYA: Visit date not found [facility]: 08/15/24 NOV: Visit date not found NDH: Spoke with patient - confirmed patient is requesting refill. Yes Has patient been seen within the year? Yes Pharmacy updated: Yes Medication pended - please file if appropriate. Patient requesting refill documented in this encounter [facility] 11-03-2024 Telephone encounter Note Patient requesting refill [facility] 09-22-2024 Note HNO ID: [id number] Author: ROSINA XIE RN Service: ? Author Type: Registered Nurse Type: Progress Notes Filed: 09/22/2024 15:39 Note Text: Patient here for day 4 of Ketamine infusion. Patient educated on medications to be administered. Confirmed NPO > 6 hours and has transportation home - waiting in [facility]. Patient verbalized understanding and agreed to proceed with infusions. Monitor alarm limits are set and alarms are audible. Denies WONG, NV, or dizziness today. Pt rates pain 9/10 located in back and describes it as sharp. 1425 - ketamine infusion initiated 1420 - 8 mg Zofran given 1505 Pts infusion complete. Post infusion zofran given per order Tolerated infusion well. PIV removed intact with no complications, dressing applied. 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 Patient educated on medications to be administered. Confirmed NPO > 6 hours and has transportation home - waiting in lobby. Patient verbalized understanding and agreed to proceed with infusions. Monitor alarm limits are set and alarms are audible. Denies WONG, NV, or dizziness today. Pt rates pain 9/10 located in back and describes it as sharp. 1425 - ketamine infusion initiated 1420 - 8 mg Zofran given 1505 Pts infusion complete. Post infusion zofran given per order Tolerated infusion well. PIV removed intact with no complications, dressing applied. Pt discharged to armored car driver in the lob in stable condition documented in this encounter [facility] 09-20-2024 Note HNO ID: [id number] Author: ROSINA XIE RN Service: ? Author Type: Registered Nurse Type: Progress Notes Filed: 09/20/2024 16:12 Note Text: Patient here for day 3 of Ketamine infusion. Patient educated on medications to be administered. Confirmed NPO > 6 hours and has transportation home - waiting in lobby. Patient verbalized understanding and agreed to proceed with infusions. Monitor alarm limits are set and alarms are audible. Denies WONG, NV, or dizziness today. Pt rates pain 9/10 located in abdomen and describes it as aching. 1455 - ketamine infusion initiated 1452 - 8 mg Zofran given 1535 Pts infusion complete. Tolerated infusion well. PIV removed intact with no complications, dressing applied. 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 Patient educated on medications to be administered. Confirmed NPO > 6 hours and has transportation home - waiting in lobby. Patient verbalized understanding and agreed to proceed with infusions. Monitor alarm limits are set and alarms are audible. Denies WONG, NV, or dizziness today. Pt rates pain 9/10 located in abdomen and describes it as aching. 1455 - ketamine infusion initiated 1452 - 8 mg Zofran given 1535 Pts infusion complete. Tolerated infusion well. PIV removed intact with no complications, dressing applied. 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 Author Type: Registered Nurse Type: Progress Notes Filed: 09/19/2024 16:20 Note Text: Patient here for day 2 of Ketamine infusion. Patient educated on medications to be administered. Confirmed NPO > 6 hours and has transportation home - waiting in lobby. Patient verbalized understanding and agreed to proceed with infusions. Monitor alarm limits are set and alarms are audible. Denies WONG, mild NV, or dizziness today. Pt rates pain 9/10 located in abdomen/lower back and describes it as ache. 1505 - ketamine infusion initiated 1501 - 8 mg Zofran given 1545 Pts infusion complete. Tolerated infusion well. 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 Patient educated on medications to be administered. Confirmed NPO > 6 hours and has transportation home - waiting in lobby. Patient verbalized understanding and agreed to proceed with infusions. Monitor alarm limits are set and alarms are audible. Denies WONG, mild NV, or dizziness today. Pt rates pain 9/10 located in abdomen/lower back and describes it as ache. 1505 - ketamine infusion initiated 1501 - 8 mg Zofran given 1545 Pts infusion complete. Tolerated infusion well. 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 Author Type: Registered Nurse Type: Progress Notes Filed: 09/18/2024 16:21 Note Text: Patient here for day 1 of Ketamine infusion. Patient educated on medications to be administered. Confirmed NPO > 6 hours and has transportation home - waiting in lobby. Patient verbalized understanding and agreed to proceed with infusions. Monitor alarm limits are set and alarms are audible. Denies WONG, mild NV, or dizziness today. Pt rates pain 9/10 located in back/stomach and describes it as sharp/aching/throbbing. 1505 - ketamine infusion initiated 1501 - 8 mg Zofran given 1545 Pts infusion complete. Tolerated infusion well. PIV removed intact with no complications, dressing applied. 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 Patient educated on medications to be administered. Confirmed NPO > 6 hours and has transportation home - waiting in lobby. Patient verbalized understanding and agreed to proceed with infusions. Monitor alarm limits are set and alarms are audible. Denies OWNG, mild NV, or dizziness today. Pt rates pain 9/10 located in back/stomach and describes it as sharp/aching/throbbing. 1505 - ketamine infusion initiated 1501 - 8 mg Zofran given 1545 Pts infusion complete. Tolerated infusion well. PIV removed intact with no complications, dressing applied. 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 [facility] 09-15-2024 Miscellaneous Notes Patient weight faxed to office for ketamine infusions; indexed into patient's chart under scanned documents. documented in this encounter [facility] 09-15-2024 Note Discharge Instructio ns Discharge Summary [address] [address] [id number] 09/15/2024 Patient: BECKI JACKSON Sex: Female : 1990 Age: 34y Thank you for visiting [facility]. You have been evaluated today by Cameron Avilez D.O. for the following condition(s): Principal Diagnosis Herniated disc (nontraumatic) at the lower lumbar level with back pain. INSTRUCTIONS (Please call previously provided spinal specialist for appointment.). Prescription Medications: ketorolac 10 mg tablet: Take 1 tablet by mouth every eight hours as needed for pain for 5 days, dispense 15 tablet. Refills 0. Pharmacy: [id number] - [address] [place] [address]. prednisone 20 mg tablet: Take 2 tablet by mouth once a day as directed for 5 days, dispense 10 tablet. Refills 0. Pharmacy: [id number] [address] [place] [address]. cyclobenzaprine 5 mg tablet: Take 1 tablet by mouth three times a day as needed for pain for 5 days, dispense 15 tablet. Refills 0. Pharmacy: [id number] - [address] [place] [address]. 1 of 7 Discharge Instructions Follow-up: Follow up with your healthcare provider in two days. Call for an appointment. 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 You have been evaluated today by Cameron Avilez D.O. for the following condition(s): Principal Diagnosis Herniated disc (nontraumatic) at the lower lumbar level with back pain. INSTRUCTIONS (Please call previously provided spinal specialist for appointment.). Prescription Medications: ketorolac 10 mg tablet: Take 1 tablet by mouth every eight hours as needed for pain for 5 days, dispense 15 tablet. Refills 0. Pharmacy: [id number] - [address] [place] [address]. 2 of 7 Discharge Instructions prednisone 20 mg tablet: Take 2 tablet by mouth once a day as directed for 5 days, dispense 10 tablet. Refills 0. Pharmacy: [id number] - [address] [place] [address]. cyclobenzaprine 5 mg tablet: Take 1 tablet by mouth three times a day as needed for pain for 5 days, dispense 15 tablet. Refills 0. Pharmacy: [facility] - [address] [place] [address]. Follow-up: Follow up with your healthcare provider in two days. Call for an appointment. ADDITIONAL INFORMATION 3 of 7 Discharge Instructions Back Pain (Acute or Chronic) Back pain is one of the most common problems. The good news is that most people feel better in 1 to 2 weeks, and most of the rest in 1 to 2 months. Most people can remain active. People who have pain describe it differently--not everyone is the same. The pain can be sharp, stabbing, shooting, aching, cramping or burning. Movement, standing, bending, lifting, sitting, or walking may worsen pain. It can be limited to one spot or area, or it can be more generalized. It can spread upwards, to the front, or go down your arms or legs (sciatica). It can cause muscle spasm. Most of the time, mechanical problems with the muscles or spine cause the pain. Mechanical problems are usually caused by an injury to the muscles or ligaments. Illness can cause back pain, but it's usually not caused by a serious illness. Mechanical problems include: Physical activity such as sports, exercise, work, or normal activity Overexertion, lifting, pushing, pulling incorrectly or too aggressively 4 of 7 Discharge Instructions Sudden twisting, bending, or stretching from an accident, or accidental movement Poor posture Stretching or moving wrong, without noticing pain at the time Poor coordination, lack of regular exercise (check with your doctor about this) Spinal disc disease or arthritis Stress Pain can also be related to , or illness like appendicitis, bladder or kidney infections, pelvic infections, and many other things. Acute back pain usually gets better in 1 to 2 weeks. Back pain related to disk disease, arthritis in the spinal joints, or narrowing of the spinal canal (spinal stenosis) can become chronic and last for months or years. Unless you had a physical injury such as a car accident or fall, X-rays are usually not needed for the first as (more content not included)... [facility] 09-03-2024 Note Discharge Instructio ns Discharge Summary [id number] [facility] [place] [address] [phone] 09/02/2024 Patient: BECKI JACKSON Sex: Female : 1990 Age: 34y Thank you for visiting [facility]. You have been evaluated today by Rudi Duval D.O. for the following condition(s): Principal Diagnosis Acute generalized abdominal pain of undetermined cause. INSTRUCTIONS No strenuous activity. (Take medication as prescribed.). Warnings: GENERAL WARNINGS: Return or contact your physician immediately if your condition worsens or changes unexpectedly, if not improving as expected, or if other problems arise. Prescription Medications: dicyclomine 20 mg tablet: Take 1 tablet by mouth four times a day as needed for pain for 10 days, dispense 40 tablet. Refills 0. Pharmacy: [id number] [address] [place] [address]. ondansetron 4 mg disintegrating tablet: Take 1 tablet on tongue every eight hours for nausea/vomiting for 5 days, dispense 15 tablet. Refills 0. Pharmacy: [facility] [id number] [address] [place] [address]. Understanding of the discharge instructions verbalized by patient. 1 of 6 Discharge Instructions Follow-up with: Rosina Vallejo NP, [facility], Adult [facility] Pediatric, Family Care, Phone: [phone], [address] [facility], [place] [facility] [place] [address]. Follow up in three days even if well. Call for an appointment. Reason for referral: evaluation. Summary of care provided to patient. 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 [phone] 09/02/2024 Patient: BECKI JACKSON Sex: Female : 1990 Age: 34y Thank you for visiting [facility]. You have been evaluated today by Rudi Duval D.O. for the following condition(s): Principal Diagnosis Acute generalized abdominal pain of undetermined cause. INSTRUCTIONS No strenuous activity. (Take medication as prescribed.). Warnings: GENERAL WARNINGS: Return or contact your physician immediately if your condition worsens or changes unexpectedly, if not improving as expected, or if other problems arise. 2 of 6 Discharge Instructions Prescription Medications: dicyclomine 20 mg tablet: Take 1 tablet by mouth four times a day as needed for pain for 10 days, dispense 40 tablet. Refills 0. Pharmacy: [facility] [id number] [address] [place] [phone]. ondansetron 4 mg disintegrating tablet: Take 1 tablet on tongue every eight hours for nausea/vomiting for 5 days, dispense 15 tablet. Refills 0. Pharmacy: [facility] [id number] [place] [address]. Understanding of the discharge instructions verbalized by patient. Follow-up with: Rosina Vallejo NP, [facility], Phone: [phone], [address], [place] [address]. Follow up in three days even if well. Call for an appointment. Reason for referral: evaluation. Summary of care provided to patient. ADDITIONAL INFORMATION Unknown Causes of Abdominal Pain (Female) 3 of 6 Discharge Instructions The exact cause of your belly (abdominal) pain is not clear. This does not mean that this is something to worry about. Everyone likes to know the exact cause of the problem. But sometimes with belly pain, there is no clear-cut cause, and this could be a good thing. The good news is that your symptoms can be treated, and you will feel better. Your condition does not seem serious now. But sometimes the signs of a serious problem may take more time to appear. For this reason, it is important for you to watch for any new symptoms, problems, or worsening of your condition. Over the next few days, the abdominal pain may come and go. Or it may be constant. Other common symptoms can include nausea and vomiting. Sometimes it can be difficult to tell if you feel nauseous. You may just feel bad and not connect that feeling to nausea. Constipation, diarrhea, and a fever may go along with the pain. The pain may continue even if treated correctly over the following days. Depending on how things go, sometimes the cause can become clear and may need more or different treatment. Additional evaluations, medicines, or tests may also be needed. Home care Your healthcare provider may prescribe medicine for pain, symptoms, or an infection. Follow the healthcare provider's instructions for taking these medicines. General car (more content not included)... [facility] 08-22-2024 Emergency department Note PT discharged home. Pt verbalizes understanding of the vivi CHAVEZ made a referral for pain management. Provider aware of patients pain at time of discharge. Pt shows no signs of distress and is ambulatory oyt of ER, gait steady. [facility] 08-22-2024 Emergency department Note PT discharged home. Pt verbalizes understanding of the vivi CHAVEZ made a referral for pain management. Provider aware of patients pain at time of discharge. Pt shows no signs of distress and is ambulatory oyt of ER, gait steady. Pt report to Araseli Allen RN to assume care at this time. Pt happy and smiling as nurse enters room, laughing with visitors. Pt asked what her pain rating is and pt states it is still a 9 or 10/10 pain in left arm. Provider aware. Emergency Department Report [facility] EMERGENCY DEPARTMENT Service Date:.08/22/24 PCP: María Hernandez Chief Complaint: Chief Complaint Patient presents with Abdominal Pain Pt reports abdominal pain, left arm pain and chest pain ongoing for several hours. Pt states pain is 9/10. Pt seen in ED several times for same complaint and states followed up with cardiology and they said to come in if it gets worse HPI Becki Jackson is a 34 y.o. female presents to the ED today due to chronic abdominal pain and chronic chest pain that has been ongoing for several months. Patient has history of gastroparesis and is under the care of [facility]. She had a telehealth visit today and has received referrals to additional specialists. Patient states that she was told if she has any worsening pain to go to the closest emergency department. She denies any recent fevers, she has chronic nausea without vomiting. She states she has been drinking fluids but she has not been eating much. No episodes of diarrhea. No hematemesis, hematochezia, or melena. She was currently on Eliquis for treatment of left cephalic DVT. She was playing with Dr. Ruiz. She has recently had CT PE study. Patient has had multiple ER visits with the same since mid June. Review of Systems: Review of Systems As documented in HPI. A thorough 12 point review of systems was evaluated including Constitutional and general appearance, Head, Face, Ears, Eyes, Nose, Throat, Cardiovascular, Pulmonary, GI, , Skin, and Psychiatric and was found to be negative without symptoms or signs consistent with acute pathology with the exception of that specifically documented in the HPI section of this documentation. Remaining systems reviewed and negative other than the history of present illness. Past Medical History: Past Medical History: Diagnosis Date Acute liver failure ADHD Anxiety Bipolar 1 disorder Depression Gastroparesis Gastroparesis Hereditary vascular fragility Kidney lesion Past Surgical History: Past Surgical History: Procedure Laterality Date CHOLECYSTECTOMY KNEE SURGERY bilateral knees TONSILLECTOMY ADENOIDECTOMY TUBAL LIGATION Allergies: Allergies Allergen Reactions Amoxicillin Contrast Dye [Ivp Dye, Iodine Containing] Penicillins Sulfa Antibiotics Medications: Discharge Medication List as of 08/22/2024 10:33 PM CONTINUE these medications which have NOT CHANGED Details !! apixaban 5 MG tablet Take 2 tablets (10 mg) by mouth twice daily for 7 days, then 1 tablet (5 mg) twice daily. Normal Disp-74 tablet, R-0 !! apixaban 5 MG tablet Take 1 tablet by mouth every 12 hours. Normal Disp-180 tablet, R-3 !! apixaban 5 MG tablet Take 1 tablet by mouth every 12 hours.Patient will be using 30 day free cardNormal Disp-60 tablet, R-0 !! apixaban 5 MG tablet Take 1 tablet by mouth every 12 hours. Normal Disp-60 tablet, R-2 busPIRone 5 MG tablet Take 1 tablet by mouth Three times a day. Historical Med cyclobenzaprine 10 MG tablet Take 1 tablet by mouth 3 times daily as needed for Muscle spasms. Normal Disp-15 tablet, R-0 Gabapentin 300 MG capsule Take 1 capsule by mouth Three times a day. Historical Med naproxen 500 MG tablet Take 1 tablet by mouth 2 times daily as needed. Normal Disp-20 tablet, R-0 Ondansetron 4 MG Tab Dispersible tablet Take 1 tablet by mouth every [address] on tongue Normal Disp-15 tablet, R-0 traZODone 50 MG tablet take 1 to 2 tablets by mouth at bedtime Historical Med !! - Potential duplicate medications found. Please discuss with provider. Family History: History reviewed. No pertinent family history. Social History: Social History Socioeconomic History Marital status: Spouse name: Not on file Number of children: Not on file Years of education: Not on file Highest education level: Not on file Occupational History Not on file Tobacco Use Smoking status: Former Current packs/day: 0.25 Types: Cigarettes Smokeless tobacco: Former Types: Chew Vaping Use Vaping status: Every Day Substance and Sexual Activity Alcohol use: Not Currently Drug use: Never Sexual activity: Not on file Other Topics Concern Not on file Social History Narrative Not on file Social Determinants of Health Financial Resource Strain: Medium Risk (08/03/2024) Overall Financial Resource Strain (CARDIA) Difficulty of Paying Living Expenses: Somewhat hard Food Insecurity: No Food Insecurity (08/03/2024) Hunger Vital Sign Worried About Running Out of Food in the Last Year: Never true Ran Out of Food in the Last Year: Never true Transportation Needs: No Transportation Needs (08/03/2024) PRAPARE - Transportation Lack of Transportation (Medical): No Lack of Transportation (Non-Medical): No Physical Activity: Not on file Stress: Not on file Social Connections: Not on file Intimate Partner Violence: Not At Risk (08/03/2024) Humiliation, Afraid, Rape, and Kick questionnaire Fear of Current or Ex-Partner: No Emotionally Abused: No Physically Abused: No Sexually Abused: No Housing Stability: Low Risk (08/03/2024) Housing Stability Vital Sign Unable to Pay for Housing in the Last Year: No Number of Times Moved in the Last Year: 1 Homeless in the Last Year: No Physical Exam: Physical Exam Vitals and nursing note reviewed. Constitutional: General: She is not in acute distress. Appearance: Normal appearance. She is not ill-appearing, toxic-appearing or diaphoretic. HENT: Head: Normocephalic and atraumatic. Right Ear: External ear normal. Left Ear: External ear normal. Nose: No congestion or rhinorrhea. Mouth/Throat: Mouth: Mucous membranes are moist. Eyes: General: No scleral icterus. Right eye: No discharge. Left eye: No discharge. Extraocular Movements: Extraocular movements intact. Conjunctiva/sclera: Conjunctivae normal. Pupils: Pupils are equal, round, and reactive to light. Cardiovascular: Rate and Rhythm: Normal rate and regular rhythm. Heart sounds: Normal heart sounds. No murmur heard. Pulmonary: Effort: Pulmonary effort is normal. No respiratory distress. Breath sounds: Normal breath sounds. No stridor. No wheezing or rhonchi. Abdominal: General: Abdomen is protuberant. There is no distension. Palpations: Abdomen is soft. There is no shifting dullness, mass or pulsatile mass. Tenderness: There is generalized abdominal tenderness. Musculoskeletal: General: Normal range of motion. Left upper arm: Tenderness present. No swelling, edema or deformity. Cervical back: Normal range of motion and neck supple. Comments: Left upper arm pain radiating into axilla, distal pulses 2+ Skin: General: Skin is warm and dry. Capillary Refill: Capillary refill takes less than 2 seconds. Coloration: Skin is not cyanotic, jaundiced, mottled or pale. Findings: No erythema or rash. Neurological: General: No focal deficit present. Mental Status: She is alert and oriented to person, place, and time. Mental status is at baseline. Cranial Nerves: No cranial nerve deficit. Motor: No weakness. Psychiatric: Mood and Affect: Mood is anxious. Vital Signs During ED Visit Patient Vitals for the past 24 hrs: BP Temp Temp src Pulse Resp SpO2 Height Weight 08/22/24 2235 108/57 -- -- 98 -- 97 % -- -- 08/22/24 2140 127/58 -- -- 97 -- 97 % -- -- 08/22/241944 -- -- -- -- -- -- 1.651 m (5' 5) 109.8 kg (242 lb) 08/22/241943 121/75 97.7 F (36.5 C) Oral 69 18 100 % -- -- Orders/Results: Orders Placed This Encounter XR CHEST PA AND LATERAL [address] ABDOMEN/PELVIS WITHOUT CONTRAST Troponin I, High sensitivity CBC, EDIF, PLATELET PROTIME-INR LACTATE, BLOOD LACTATE, BLOOD CHEM 7 (LYTES,BUN,CREA,GLUC) HEPATIC FUNCTION PANEL LIPASE AMB REFERRAL TO CHRONIC PAIN CLINIC ECG GI cocktail: alum/mag hydrox-simethicone(30ml)+lidocain e 2%(10ml) oral suspension 40 mL acetaminophen (TYLENOL) tablet 1,000 mg Results for orders placed or performed during the hospital encounter of 08/22/24 TROPONIN I, HIGH SENSITIVITY Result Value Ref Range TROPONIN I, HIGH SENSITIVITY <2 0 - 12 pg/mL CBC, EDIF, PLATELET Result Value Ref Range WBC (WHITE BLOOD COUNT) 7.4 3.6 - 11.0 10*3/uL RBC 4.36 4.0 - 5.4 10*6/uL HEMOGLOBIN (HGB) 13.0 12.0 - 16.0 G/DL HEMATOCRIT (HCT) 38.9 36.0 - 48.0 % MEAN CELL VOLUME 89.2 80.0 - 100.0 FL Mean Cell HGB 29.9 26.0 - 35.0 PG MEAN CELL HGB CONCENTRATION 33.5 27.0 - 37.0 G/DL RBC DISTRIBUTION 14.6 (H) 11.5 - 14.5 % PLATELET COUNT 303 130 - 400 10*3/uL MEAN PLATELET VOLUME 7.3 (L) 7.4 - 11.0 FL DIFFERENTIAL TYPE AUTO DIFF % NEUTROPHILS 64.6 37.0 - 75.0 % LYMPHOCYTE 20.7 20.0 - 55.0 % MONOCYTE % 10.8 (H) 0.0 - 10.0 % EOSINOPHIL % 3.4 0.0 - 11.0 % BASOPHIL % 0.5 0.0 - 2.0 % Absolute Neutrophil Count 4.8 1.4 - 6.5 10*3/uL LYMPHOCYTES, ABSOLUTE 1.5 1.2 - 3.4 10*3/uL MONOCYTES, ABSOLUTE 0.8 (H) 0.0 - 0.7 10*3/uL ABSOLUTE EOSINOPHIL COUNT 0.3 0.0 - 0.7 10*3/uL ABSOLUTE BASOPHIL COUNT 0.0 0.0 - 0.2 10*3/uL PROTIME-INR Result Value Ref Range PT 13.1 11.8 - 14.4 SEC INR 0.98 0.85 - 1.10 LACTATE, BLOOD Result Value Ref Range LACTATE 1.9 0.7 - 2.0 mmol/L CHEM 7 (LYTES,BUN,CREA,GLUC) Result Value Ref Range Glucose 105 (H) 70 - 100 MG/DL BUN 15 7 - 20 MG/DL CREATININE SERUM 0.80 0.70 - 1.20 MG/DL SODIUM 140 137 - 145 MMOL/L Potassium 4.1 3.5 - 5.1 MMOL/L CHLORIDE 112 (H) 98 - 107 MMOL/L CARBON DIOXIDE (CO2) 24 22 - 30 MMOL/L ESTIMATED GFR, NON AMER 88 ml/min/1.73sq.m ESTIMATED GFR, 106 ml/min/1.73sq.m GFR COMMENT Average GFR for 30-39 years old = 107. HEPATIC FUNCTION PANEL Result Value Ref Range Albumin 4.0 2.9 - 5.3 G/DL BILIRUBIN, TOTAL 0.4 0.2 - 1.3 MG/DL ALKALINE PHOSPHATASE 86 38 - 126 IU/L AST 25 14 - 36 IU/L BILIRUBIN, DIRECT 0.3 0.0 - 0.4 MG/DL PROTEIN, TOTAL 6.6 6.3 - 8.2 GM/DL ALT 26 <35 IU/L LIPASE Result Value Ref Range LIPASE 77 23 - 300 U/L Radiographic Imaging XR CHEST PA AND LATERAL 2 VIEWS Final Result IMPRESSION: Nonacute two-view chest. CT ABDOMEN/PELVIS WITHOUT CONTRAST Final Result IMPRESSION: 1. No acute process in the abdomen or pelvis. Procedures: Procedures EKG obtained at 1936 hours is sinus rhythm with short GA, rate 87 beats per minute, GA interval 110 milliseconds, QRS duration 84 milliseconds, QTC 404 milliseconds, normal axis, no acute ST elevation or depression, nonspecific t wave abnormalities. When compared to prior EKG 08/02/2024 no significant changes are noted. Moderate Sedation Procedure: No ED Summary/MDM Based on the patient's HPI and exam, she will be evaluated and treated for abdominal pain. Patient has chronic pain in nature. She is under the treatment of [facility]. Being followed by mental health as well. Patient has had multiple treatments for chronic pain including ketamine infusions. Patient states anything she has had has never worked. On physical exam, the patient appears anxious, nontoxic, heart regular S1-S2, lungs clear to auscultation bilaterally throughout, distal pulses strong and intact. Abdomen is soft and generalized tenderness. Bowel sounds active in all 4 quadrants. Differential diagnosis includes but is not limited to gastritis, colitis, gastroenteritis, pancreatitis, constipation, urinary tract infection, appendicitis, pneumonia, bowel obstruction, diverticulitis, anxiety, and diverticulosis. Intended ED work-up includes: Labs, chest x-ray, and CT abdomen pelvis. Laboratory diagnostics are reviewed and are overall unremarkable. Troponin is not elevated. No leukocytosis. CT abdomen pelvis shows no acute intra-abdominal findings. Patient presenting with abdominal pain chronic in nature with history of gastroparesis. Patient is currently under the treatment of [facility]. She had a telehealth appointment today. Referrals have been placed through [facility]. Evaluation has not identified suspicion for emergent etiology for symptoms. Given reassuring history, exam, blood work, and lack of significant risk factors, I have low clinical suspicion for appendicitis, ischemic gut, bowel obstruction/perforation, or other life threatening pathology. The patient is stable for discharge. Patient does not meet admission requirements or require transfer to outside facility. Reviewed results of evaluation and workup with patient and plan for disposition. Work-up completed here in the emergency department with patient stating she is comfortable with plan for discharge home at this time. At time of discharge, the patient was hemodynamically stable and all major body systems were reviewed and the patient was free of symptoms that would suggest additional pathologic conditions. Recommend follow up with primary care to review care and for further treatment of health care needs. I gave the patient my usual and customary discussion regarding chest pain and abdominal pain. Referral to pain management is placed for follow-up. Patient states understanding of the signs and symptoms that should prompt immediate reevaluation in the emergency department including any increase in symptoms or warning signs of serious infection including but not limited to altered mental status, confusion, dizziness, syncope, severe sustained headache, dysphagia, changes in vision, changes in hearing, difficulty or pain with swallowing, stridor, SOB, fever above 102, tachycardia, chest pain, vomiting, and incontinence. Patient agrees to obtain close follow up with primary care or specialist. All the patient's questions have been answered to the best of my abilities prior to discharge. Clinical Impression: 1. Chronic chest pain 2. Chronic abdominal pain 3. Arm DVT (deep venous thromboembolism), acute, left No follow-ups on file. Discharge Medication List as of 08/22/2024 10:33 PM Discharge Medication List as of 08/22/2024 10:33 PM An After Visit Summary was printed and given to the patient with above information. . . CHITO Ramirez 08/22/24 2249 documented in this encounter [facility] 08-22-2024 Hospital Discharge instructions Vivi Gonzalez APRN-[facility] - 08/22/2024 10:33 PM EDT You were seen and evaluated today for chronic chest and abdominal pain. As we discussed, you are stable for discharge home with follow-up with primary care. There are no immediate, life-threatening causes for your symptoms at this time. Symptoms can change and new problems may arise after your evaluation. Please do not hesitate to return for further care. Continue all your home medications. Referral to pain management has been placed for follow up. Continue to work with [facility] and referrals which were placed for follow up regarding gastroparesis. Monitor for any worsening or more concerning symptoms. Take usual prescribed medications as prescribed. Call primary care to schedule a follow-up appointment reevaluation. Return to the emergency room if you develop any of the following conditions: altered mental status, confusion, dizziness, passing out, severe sustained headache, inability to swallow, changes in vision, changes in hearing, difficulty or pain with swallowing, shortness of breath, high pitched wheezing, fevers above 102, elevated heart rate, chest pain, persistent vomiting, and inability to control urine or stool, or any other abnormal symptoms of concern. The following attachments cannot be sent through Care Everywhere.DVT (Deep Vein Thrombosis) (Maltese)Abdominal Pain (Maltese)Chronic Pain (Maltese)Chest Pain: Musculoskeletal (Maltese)documented in this encounter [facility] 08-22-2024 Emergency department Note Pt report to Araseli Allen RN to assume care at this time. [facility] 08-22-2024 Emergency department Note Pt happy and smiling as nurse enters room, laughing with visitors. Pt asked what her pain rating is and pt states it is still a 9 or 10/10 pain in left arm. Provider aware. [facility] 08-22-2024 Physician Emergency department Note Emergency Department Report [facility] EMERGENCY DEPARTMENT Service Date:.08/22/24 PCP: María Hernandez Chief Complaint: Chief Complaint Patient presents with Abdominal Pain Pt reports abdominal pain, left arm pain and chest pain ongoing for several hours. Pt states pain is 9/10. Pt seen in ED several times for same complaint and states followed up with cardiology and they said to come in if it gets worse HPI Becki Jackson is a 34 y.o. female presents to the ED today due to chronic abdominal pain and chronic chest pain that has been ongoing for several months. Patient has history of gastroparesis and is under the care of [facility]. She had a telehealth visit today and has received referrals to additional specialists. Patient states that she was told if she has any worsening pain to go to the closest emergency department. She denies any recent fevers, she has chronic nausea without vomiting. She states she has been drinking fluids but she has not been eating much. No episodes of diarrhea. No hematemesis, hematochezia, or melena. She was currently on Eliquis for treatment of left cephalic DVT. She was playing with Dr. Ruiz. She has recently had CT PE study. Patient has had multiple ER visits with the same since mid June. Review of Systems: Review of Systems As documented in HPI. A thorough 12 point review of systems was evaluated including Constitutional and general appearance, Head, Face, Ears, Eyes, Nose, Throat, Cardiovascular, Pulmonary, GI, , Skin, and Psychiatric and was found to be negative without symptoms or signs consistent with acute pathology with the exception of that specifically documented in the HPI section of this documentation. Remaining systems reviewed and negative other than the history of present illness. Past Medical History: Past Medical History: Diagnosis Date Acute liver failure ADHD Anxiety Bipolar 1 disorder Depression Gastroparesis Gastroparesis Hereditary vascular fragility Kidney lesion Past Surgical History: Past Surgical History: Procedure Laterality Date CHOLECYSTECTOMY KNEE SURGERY bilateral knees TONSILLECTOMY ADENOIDECTOMY TUBAL LIGATION Allergies: Allergies Allergen Reactions Amoxicillin Contrast Dye [Ivp Dye, Iodine Containing] Penicillins Sulfa Antibiotics Medications: Discharge Medication List as of 08/22/2024 10:33 PM CONTINUE these medications which have NOT CHANGED Details !! apixaban 5 MG tablet Take 2 tablets (10 mg) by mouth twice daily for 7 days, then 1 tablet (5 mg) twice daily. Normal Disp-74 tablet, R-0 !! apixaban 5 MG tablet Take 1 tablet by mouth every 12 hours. Normal Disp-180 tablet, R-3 !! apixaban 5 MG tablet Take 1 tablet by mouth every 12 hours.Patient will be using 30 day free cardNormal Disp-60 tablet, R-0 !! apixaban 5 MG tablet Take 1 tablet by mouth every 12 hours. Normal Disp-60 tablet, R-2 busPIRone 5 MG tablet Take 1 tablet by mouth Three times a day. Historical Med cyclobenzaprine 10 MG tablet Take 1 tablet by mouth 3 times daily as needed for Muscle spasms. Normal Disp-15 tablet, R-0 Gabapentin 300 MG capsule Take 1 capsule by mouth Three times a day. Historical Med naproxen 500 MG tablet Take 1 tablet by mouth 2 times daily as needed. Normal Disp-20 tablet, R-0 Ondansetron 4 MG Tab Dispersible tablet Take 1 tablet by mouth every [address] on tongue Normal Disp-15 tablet, R-0 traZODone 50 MG tablet take 1 to 2 tablets by mouth at bedtime Historical Med !! - Potential duplicate medications found. Please discuss with provider. Family History: History reviewed. No pertinent family history. Social History: Social History Socioeconomic History Marital status: Spouse name: Not on file Number of children: Not on file Years of education: Not on file Highest education level: Not on file Occupational History Not on file Tobacco Use Smoking status: Former Current packs/day: 0.25 Types: Cigarettes Smokeless tobacco: Former Types: Chew Vaping Use Vaping status: Every Day Substance and Sexual Activity Alcohol use: Not Currently Drug use: Never Sexual activity: Not on file Other Topics Concern Not on file Social History Narrative Not on file Social Determinants of Health Financial Resource Strain: Medium Risk (08/03/2024) Overall Financial Resource Strain (CARDIA) Difficulty of Paying Living Expenses: Somewhat hard Food Insecurity: No Food Insecurity (08/03/2024) Hunger Vital Sign Worried About Running Out of Food in the Last Year: Never true Ran Out of Food in the Last Year: Never true Transportation Needs: No Transportation Needs (08/03/2024) PRAPARE - Transportation Lack of Transportation (Medical): No Lack of Transportation (Non-Medical): No Physical Activity: Not on file Stress: Not on file Social Connections: Not on file Intimate Partner Violence: Not At Risk (08/03/2024) Humiliation, Afraid, Rape, and Kick questionnaire Fear of Current or Ex-Partner: No Emotionally Abused: No Physically Abused: No Sexually Abused: No Housing Stability: Low Risk (08/03/2024) Housing Stability Vital Sign Unable to Pay for Housing in the Last Year: No Number of Times Moved in the Last Year: 1 Homeless in the Last Year: No Physical Exam: Physical Exam Vitals and nursing note reviewed. Constitutional: General: She is not in acute distress. Appearance: Normal appearance. She is not ill-appearing, toxic-appearing or diaphoretic. HENT: Head: Normocephalic and atraumatic. Right Ear: External ear normal. Left Ear: External ear normal. Nose: No congestion or rhinorrhea. Mouth/Throat: Mouth: Mucous membranes are moist. Eyes: General: No scleral icterus. Right eye: No discharge. Left eye: No discharge. Extraocular Movements: Extraocular movements intact. Conjunctiva/sclera: Conjunctivae normal. Pupils: Pupils are equal, round, and reactive to light. Cardiovascular: Rate and Rhythm: Normal rate and regular rhythm. Heart sounds: Normal heart sounds. No murmur heard. Pulmonary: Effort: Pulmonary effort is normal. No respiratory distress. Breath sounds: Normal breath sounds. No stridor. No wheezing or rhonchi. Abdominal: General: Abdomen is protuberant. There is no distension. Palpations: Abdomen is soft. There is no shifting dullness, mass or pulsatile mass. Tenderness: There is generalized abdominal tenderness. Musculoskeletal: General: Normal range of motion. Left upper arm: Tenderness present. No swelling, edema or deformity. Cervical back: Normal range of motion and neck supple. Comments: Left upper arm pain radiating into axilla, distal pulses 2+ Skin: General: Skin is warm and dry. Capillary Refill: Capillary refill takes less than 2 seconds. Coloration: Skin is not cyanotic, jaundiced, mottled or pale. Findings: No erythema or rash. Neurological: General: No focal deficit present. Mental Status: She is alert and oriented to person, place, and time. Mental status is at baseline. Cranial Nerves: No cranial nerve deficit. Motor: No weakness. Psychiatric: Mood and Affect: Mood is anxious. Vital Signs During ED Visit Patient Vitals for the past 24 hrs: BP Temp Temp src Pulse Resp SpO2 Height Weight 08/22/245 108/57 -- -- 98 -- 97 % -- -- 08/22/24 2140 127/58 -- -- 97 -- 97 % -- -- 08/22/241944 -- -- -- -- -- -- 1.651 m (5' 5) 109.8 kg (242 lb) 08/22/241943 121/75 97.7 F (36.5 C) Oral 69 18 100 % -- -- Orders/Results: Orders Placed This Encounter XR CHEST PA AND LATERAL [address] ABDOMEN/PELVIS WITHOUT CONTRAST Troponin I, High sensitivity CBC, EDIF, PLATELET PROTIME-INR LACTATE, BLOOD LACTATE, BLOOD CHEM 7 (LYTES,BUN,CREA,GLUC) HEPATIC FUNCTION PANEL LIPASE AMB REFERRAL TO CHRONIC PAIN CLINIC ECG GI cocktail: alum/mag hydrox-simethicone(30ml)+lidocain e 2%(10ml) oral suspension 40 mL acetaminophen (TYLENOL) tablet 1,000 mg Results for orders placed or performed during the hospital encounter of 08/22/24 TROPONIN I, HIGH SENSITIVITY Result Value Ref Range TROPONIN I, HIGH SENSITIVITY <2 0 - 12 pg/mL CBC, EDIF, PLATELET Result Value Ref Range WBC (WHITE BLOOD COUNT) 7.4 3.6 - 11.0 10*3/uL RBC 4.36 4.0 - 5.4 10*6/uL HEMOGLOBIN (HGB) 13.0 12.0 - 16.0 G/DL HEMATOCRIT (HCT) 38.9 36.0 - 48.0 % MEAN CELL VOLUME 89.2 80.0 - 100.0 FL Mean Cell HGB 29.9 26.0 - 35.0 PG MEAN CELL HGB CONCENTRATION 33.5 27.0 - 37.0 G/DL RBC DISTRIBUTION 14.6 (H) 11.5 - 14.5 % PLATELET COUNT 303 130 - 400 10*3/uL MEAN PLATELET VOLUME 7.3 (L) 7.4 - 11.0 FL DIFFERENTIAL TYPE AUTO DIFF % NEUTROPHILS 64.6 37.0 - 75.0 % LYMPHOCYTE 20.7 20.0 - 55.0 % MONOCYTE % 10.8 (H) 0.0 - 10.0 % EOSINOPHIL % 3.4 0.0 - 11.0 % BASOPHIL % 0.5 0.0 - 2.0 % Absolute Neutrophil Count 4.8 1.4 - 6.5 10*3/uL LYMPHOCYTES, ABSOLUTE 1.5 1.2 - 3.4 10*3/uL MONOCYTES, ABSOLUTE 0.8 (H) 0.0 - 0.7 10*3/uL ABSOLUTE EOSINOPHIL COUNT 0.3 0.0 - 0.7 10*3/uL ABSOLUTE BASOPHIL COUNT 0.0 0.0 - 0.2 10*3/uL PROTIME-INR Result Value Ref Range PT 13.1 11.8 - 14.4 SEC INR 0.98 0.85 - 1.10 LACTATE, BLOOD Result Value Ref Range LACTATE 1.9 0.7 - 2.0 mmol/L CHEM 7 (LYTES,BUN,CREA,GLUC) Result Value Ref Range Glucose 105 (H) 70 - 100 MG/DL BUN 15 7 - 20 MG/DL CREATININE SERUM 0.80 0.70 - 1.20 MG/DL SODIUM 140 137 - 145 MMOL/L Potassium 4.1 3.5 - 5.1 MMOL/L CHLORIDE 112 (H) 98 - 107 MMOL/L CARBON DIOXIDE (CO2) 24 22 - 30 MMOL/L ESTIMATED GFR, NON AMER 88 ml/min/1.73sq.m ESTIMATED GFR, 106 ml/min/1.73sq.m GFR COMMENT Average GFR for 30-39 years old = 107. HEPATIC FUNCTION PANEL Result Value Ref Range Albumin 4.0 2.9 - 5.3 G/DL BILIRUBIN, TOTAL 0.4 0.2 - 1.3 MG/DL ALKALINE PHOSPHATASE 86 38 - 126 IU/L AST 25 14 - 36 IU/L BILIRUBIN, DIRECT 0.3 0.0 - 0.4 MG/DL PROTEIN, TOTAL 6.6 6.3 - 8.2 GM/DL ALT 26 <35 IU/L LIPASE Result Value Ref Range LIPASE 77 23 - 300 U/L Radiographic Imaging XR CHEST PA AND LATERAL 2 VIEWS Final Result IMPRESSION: Nonacute two-view chest. CT ABDOMEN/PELVIS WITHOUT CONTRAST Final Result IMPRESSION: 1. No acute process in the abdomen or pelvis. Procedures: Procedures EKG obtained at 1936 hours is sinus rhythm with short GA, rate 87 beats per minute, GA interval 110 milliseconds, QRS duration 84 milliseconds, QTC 404 milliseconds, normal axis, no acute ST elevation or depression, nonspecific t wave abnormalities. When compared to prior EKG 08/02/2024 no significant changes are noted. Moderate Sedation Procedure: No ED Summary/MDM Based on the patient's HPI and exam, she will be evaluated and treated for abdominal pain. Patient has chronic pain in nature. She is under the treatment of [facility]. Being followed by mental health as well. Patient has had multiple treatments for chronic pain including ketamine infusions. Patient states anything she has had has never worked. On physical exam, the patient appears anxious, nontoxic, heart regular S1-S2, lungs clear to auscultation bilaterally throughout, distal pulses strong and intact. Abdomen is soft and generalized tenderness. Bowel sounds active in all 4 quadrants. Differential diagnosis includes but is not limited to gastritis, colitis, gastroenteritis, pancreatitis, constipation, urinary tract infection, appendicitis, pneumonia, bowel obstruction, diverticulitis, anxiety, and diverticulosis. Intended ED work-up includes: Labs, chest x-ray, and CT abdomen pelvis. Laboratory diagnostics are reviewed and are overall unremarkable. Troponin is not elevated. No leukocytosis. CT abdomen pelvis shows no acute intra-abdominal findings. Patient presenting with abdominal pain chronic in nature with history of gastroparesis. Patient is currently under the treatment of [facility]. She had a telehealth appointment today. Referrals have been placed through [facility]. Evaluation has not identified suspicion for emergent etiology for symptoms. Given reassuring history, exam, blood work, and lack of significant risk factors, I have low clinical suspicion for appendicitis, ischemic gut, bowel obstruction/perforation, or other life threatening pathology. The patient is stable for discharge. Patient does not meet admission requirements or require transfer to outside facility. Reviewed results of evaluation and workup with patient and plan for disposition. Work-up completed here in the emergency department with patient stating she is comfortable with plan for discharge home at this time. At time of discharge, the patient was hemodynamically stable and all major body systems were reviewed and the patient was free of symptoms that would suggest additional pathologic conditions. Recommend follow up with primary care to review care and for further treatment of health care needs. I gave the patient my usual and customary discussion regarding chest pain and abdominal pain. Referral to pain management is placed for follow-up. Patient states understanding of the signs and symptoms that should prompt immediate reevaluation in the emergency department including any increase in symptoms or warning signs of serious infection including but not limited to altered mental status, confusion, dizziness, syncope, severe sustained headache, dysphagia, changes in vision, changes in hearing, difficulty or pain with swallowing, stridor, SOB, fever above 102, tachycardia, chest pain, vomiting, and incontinence. Patient agrees to obtain close follow up with primary care or specialist. All the patient's questions have been answered to the best of my abilities prior to discharge. Clinical Impression: 1. Chronic chest pain 2. Chronic abdominal pain 3. Arm DVT (deep venous thromboembolism), acute, left No follow-ups on file. Discharge Medication List as of 08/22/2024 10:33 PM Discharge Medication List as of 08/22/2024 10:33 PM An After Visit Summary was printed and given to the patient with above information. . . Vivi Gonzalez, [employer] 08/22/24 [id number] [facility] 08-22-2024 Telephone encounter Note DENIAL RECEIVED FROM [facility]. Called [facility] [phone] and was advised medication was denied as it is only FDA approved for use with chemotherapy. Dr. Panchito mcclain, new order placed for Meclizine. Patient aware. [facility] 08-22-2024 Miscellaneous Notes DENIAL RECEIVED FROM [facility]. Called [facility] [phone] and was advised medication was denied as it is only FDA approved for use with chemotherapy. Dr. Panchito mcclain, new order placed for Meclizine. Patient aware. We can try meclizine. Spoke with patient (identified by two identifiers.) Patient states she is not taking Amitiza as she is not constipated. She has c/o nausea and vomiting. She has Emend but needs something more. Kytril was denied by insurance. She did state that Klonopin worked before but only for brief amount of time. Has c/o chronic abdominal pain that she describes as aching and sharp. States she has previously had consult to pain management and it wasn't helpful but she's willing to try again. Advised her Dr. Flanagan's consult to pain management order is in since 12/13/23 and she should call to schedule. Patient is aware Dr. Jones placed consults to the swallowing center and behavioral medicine today. Advised patient to move forward by scheduling both. documented in this encounter [facility] 08-22-2024 Telephone encounter Note We can try meclizine. [facility] 08-22-2024 Telephone encounter Note Spoke with patient (identified by two identifiers.) Patient states she is not taking Amitiza as she is not constipated. She has c/o nausea and vomiting. She has Emend but needs something more. Kytril was denied by insurance. She did state that Klonopin worked before but only for brief amount of time. Has c/o chronic abdominal pain that she describes as aching and sharp. States she has previously had consult to pain management and it wasn't helpful but she's willing to try again. Advised her Dr. Flanagan's consult to pain management order is in since 12/13/23 and she should call to schedule. Patient is aware Dr. Jones placed consults to the swallowing center and behavioral medicine today. Advised patient to move forward by scheduling both. [facility] 08-22-2024 Note HNO ID: [id number] Author: OZ JONES DO Service: ? Author Type: Physician Type: Progress Notes Filed: 08/22/2024 09:13 Note Text: [facility] [place] Gastroparesis/Dysmotility Virtual Follow-Up This encounter was provided via two-way, live video teleconferencing within the guidelines of state licensure rules for new and established patients. I have communicated my name and active licensure. The patient's identity and physical location were verified at the time of this visit. Either the patient or their legal rental sales representative has been informed of the risks and benefits of -- and alternatives to -- treatment through a remote evaluation and consents to proceed with the evaluation remotely. Technical difficulties were not encountered. 20 minutes were spent on the teleconference with the patient. An additional 10 minutes was required for chart review/preparation, documentation, orders, and care coordination. PATIENT NAME: Becki Jackson SERVICE DATE: 08/22/2024 SERVICE TIME: 8:40 AM S/P: 02/03/2023 EGD with Esophageal 54Fr Savery and 20mm Balloon Pyloric Dilation Impression: - The examined portions of the nasopharynx, oropharynx and larynx were normal. - Z-line regular, 38 cm from the incisors. - Gastroesophageal flap valve classified as Hill Grade IV (no fold, wide open lumen, hiatal hernia present). - 2 cm hiatal hernia. - Extrinsic narrowing of the esophagus. Dilated to 54Fr minimal resistance - Gastroparesis. Dilated to 20mm with mild mucosal breaks - Normal examined duodenum. - No specimens collected. ASSESSMENT/PLAN: 34 year old female with a prior diagnosis of medical refractory idiopathic gastroparesis based on 2021 t1/2 GES (265min), however 2023 GES showing 0% 4-hr retention and only 21% 2-hr retention, which is markedly normal. There is clinical suspicion for mid/hind-gut dysmotility based on prior bowel patterns and symptom distribution, however now with daily bowel movements. Case is further confounded by pharyngeal dysphagia the etiology of which is unclear. s/p 02/03/2023 EGD with 54Fr Savery Dilation and 20mm Pyloric Balloon Dilation. Both dilations were productive producing minor mucosal breaks, and appears no endoscopic evidence of hypertrophic pyloric stenosis. Unfortunately she has demonstrated no symptomatic response and actually increased symptoms particularly with abdominal pain, odynophagia/dysphagia for weeks without any improvements in nausea/vomiting. High-resolution manometry showing elevated LES resting pressure however normal relaxation and appropriate contractility/peristalsis consistent with normal motility. Modified barium swallow showing impaired pharyngeal transit however generally unclear and some suggestion of esophageal pathology. Follow up Esophagram showing normal motility without any mechanical impairment or clearance issues. Trial of Baclofen seemed to exacerbate symptoms. 08/2023 EGD generally unremarkable other than mild/chronic inactive gastritis without H. pylori and EOE biopsies were negative. Currently patient is tolerating a semi-regular diet and is actively gaining weight, up 30lbs since 2022. Overall patient's presentation and symptoms remain extraordinarily complex. My primary thought is that this is most likely a central mediated process going to a myriad of occult functional impairments in the setting of significant visceral hypersensitivity. Given her completely normal gastric emptying and pain predominant symptoms I do not feel that she is appropriate for pyloric surgery or gastric neurostimulation. My general recommendation would be for patient to be evaluated at [facility] swallowing center to completely rule out any mechanical/motility derangement of the esophagus, continue to follow with behavioral health, and continue to follow with neuropathic pain specialist as these adjuncts would be the most beneficial moving forward -New referral to [facility] swallowing center for evaluation of functional pharyngoesophageal dysphagia and hypertensive LES. -Recommend patient follow-up with behavioral health for ongoing GDH and other coping strategies for gut-brain axis optimization -Patient continue to follow with neuro/pain for longitudinal management of her hypersensitivity and chronic pains -Continue Amitiza as prescribed by GI for chronic constipation, currently well-controlled -Patient may follow-up with me on as-needed basis SUBJECTIVE HPI: Patient was last seen in April 2024 for follow-up. At that time primary symptoms remained abdominal pain, poor appetite, and limited energy. She previously failed BuSpar and Amitiza prescribed by GI without any symptomatic improvements. She also had no response in her dysphagia to savory dilation. No response in upper GI symptoms to pyloric dilation. No response to baclofen trial. She did complete repeat gastric emptying study i (more content not included)... [facility] 08-22-2024 History of Present illness Narrative [facility] [place] Gastroparesis/Dysmotility Virtual Follow-Up This encounter was provided via two-way, live video teleconferencing within the guidelines of state licensure rules for new and established patients. I have communicated my name and active licensure. The patient's identity and physical location were verified at the time of this visit. Either the patient or their legal rental sales representative has been informed of the risks and benefits of -- and alternatives to -- treatment through a remote evaluation and consents to proceed with the evaluation remotely. Technical difficulties were not encountered. 20 minutes were spent on the teleconference with the patient. An additional 10 minutes was required for chart review/preparation, documentation, orders, and care coordination. PATIENT NAME: Becki Jackson SERVICE DATE: 08/22/2024 SERVICE TIME: 8:40 AM S/P: 02/03/2023 EGD with Esophageal 54Fr Savery and 20mm Balloon Pyloric Dilation Impression: - The examined portions of the nasopharynx, oropharynx and larynx were normal. - Z-line regular, 38 cm from the incisors. - Gastroesophageal flap valve classified as Hill Grade IV (no fold, wide open lumen, hiatal hernia present). - 2 cm hiatal hernia. - Extrinsic narrowing of the esophagus. Dilated to 54Fr minimal resistance - Gastroparesis. Dilated to 20mm with mild mucosal breaks - Normal examined duodenum. - No specimens collected. ASSESSMENT/PLAN: 34 year old female with a prior diagnosis of medical refractory idiopathic gastroparesis based on 2021 t1/2 GES (265min), however 2023 GES showing 0% 4-hr retention and only 21% 2-hr retention, which is markedly normal. There is clinical suspicion for mid/hind-gut dysmotility based on prior bowel patterns and symptom distribution, however now with daily bowel movements. Case is further confounded by pharyngeal dysphagia the etiology of which is unclear. s/p 02/03/2023 EGD with 54Fr Savery Dilation and 20mm Pyloric Balloon Dilation. Both dilations were productive producing minor mucosal breaks, and appears no endoscopic evidence of hypertrophic pyloric stenosis. Unfortunately she has demonstrated no symptomatic response and actually increased symptoms particularly with abdominal pain, odynophagia/dysphagia for weeks without any improvements in nausea/vomiting. High-resolution manometry showing elevated LES resting pressure however normal relaxation and appropriate contractility/peristalsis consistent with normal motility. Modified barium swallow showing impaired pharyngeal transit however generally unclear and some suggestion of esophageal pathology. Follow up Esophagram showing normal motility without any mechanical impairment or clearance issues. Trial of Baclofen seemed to exacerbate symptoms. 08/2023 EGD generally unremarkable other than mild/chronic inactive gastritis without H. pylori and EOE biopsies were negative. Currently patient is tolerating a semi-regular diet and is actively gaining weight, up 30lbs since 2022. Overall patient's presentation and symptoms remain extraordinarily complex. My primary thought is that this is most likely a central mediated process going to a myriad of occult functional impairments in the setting of significant visceral hypersensitivity. Given her completely normal gastric emptying and pain predominant symptoms I do not feel that she is appropriate for pyloric surgery or gastric neurostimulation. My general recommendation would be for patient to be evaluated at [facility] swallowing center to completely rule out any mechanical/motility derangement of the esophagus, continue to follow with behavioral health, and continue to follow with neuropathic pain specialist as these adjuncts would be the most beneficial moving forward -New referral to [facility] swallowing center for evaluation of functional pharyngoesophageal dysphagia and hypertensive LES. -Recommend patient follow-up with behavioral health for ongoing GDH and other coping strategies for gut-brain axis optimization -Patient continue to follow with neuro/pain for longitudinal management of her hypersensitivity and chronic pains -Continue Amitiza as prescribed by GI for chronic constipation, currently well-controlled -Patient may follow-up with me on as-needed basis SUBJECTIVE HPI: Patient was last seen in April 2024 for follow-up. At that time primary symptoms remained abdominal pain, poor appetite, and limited energy. She previously failed BuSpar and Amitiza prescribed by GI without any symptomatic improvements. She also had no response in her dysphagia to savory dilation. No response in upper GI symptoms to pyloric dilation. No response to baclofen trial. She did complete repeat gastric emptying study in May 2024 which was extraordinarily normal 0% retention 4 hours and only 21% retention at 2 hours. Still having a lot of abdominal pain issues, mid abdomen and radiating to the epigastric region. She has not been seen at [facility] swallowing center yet. Her dysphagia continues to worsen. Patient was diagnosed with a DVT earlier in July and is being treated with Eliquis. She was found to have thyroid mass as well. She is getting another US in the coming weeks. Diet: Soft foods and some liquids Weight: Gaining weight 242lbs Reflux: No heartburn, but a lot of regurgitation. No response to PPI Dysphagia: Daily, severe, sticking sensation in neck/cervical region with every meal. Solids and Liquids. Nausea: Daily severe, constant. Zofran with only some minimal relief Vomiting: Daily multiple episodes Pain: Mid upper abdominal pain and pressure, sharp after eating. Intensity increases within minute of ingestion. Bowel movements: Daily BM, loose and yellow, taking Amitiza. Gastroparesis Cardinal Symptom Index 1. nausea 3 2. retching 2 3. vomiting 4 4. stomach fullness 5 5. not able to finish a normal-sized meal 5 6. feeling excessively full after meals 5 7. loss of appetite 5 8. bloating (feeling like you need to loosen your clothes) 5 9. stomach or belly visibly larger 5 Scale (0-none; 1-very mild; 2-mild; 3-moderate; 4-severe; 5-very severe) REVIEW OF SYSTEMS: General: Weight gain unknown reason Neuro: No Hx of stroke or seizures Respiratory: Asthma Cardiovascular: Positive for: negative GI: See HPI : No history of UTI in past 6 weeks. No history of renal failure. Not currently on or requiring dialysis. No history of symptoms or problems. SOCK DRIER: Negative for abnormal vaginal bleeding, abnormal vaginal discharge. : Denies Endocrine: No history of diabetes. Has not taken steroids within the past 30 days. No history of endocrinological symptoms or problems. Hematology: No history of bleeding or clotting disorder. Pt is not taking anti-coagulation or platelet medications. No history of hematological symptoms or problems. Oncology: No history of CA metastasis, chemo within 30 days, or radiotherapy within 90 days. Has not lost 10% of body wt in 6 months. No history of oncological symptoms or problems. Psych: Anxiety, Depression, ADHD Musculoskeletal: Back pain and Joint pain Skin: Negative for lesions, rash and itching. OBJECTIVE LMP 11/29/202305/2024 4-hr GES RESULTS: Calculated solid meal (or solid meal equivalent) gastric retention values: * 73% retention at 1 hour (normal range, 37-90%; accelerated emptying is defined as <30% at 1 hour) * 21% retention at 2 hours (normal range, <60%) * 0% retention at 4 hours (normal range, <10%) 06/03/2023 Esophagram IMPRESSION: Unremarkable esophagram. 03/15/2023 Modified Barium Swallow Impression: Evidence of: Pharyngeal dysphagia, Concern for possible esophageal impairment An elevated risk for aspiration: No Swallow Efficiency: Impaired Patient reported allergy (vomiting) to barium though agreeable to proceed as states she took medication prior to study to prevent allergic reaction. Mild tongue base and valleculae/pyriform residuals post swallow, clearing with subsequent swallow. No laryngeal penetration or tracheal aspiration viewed. Increased residuals with thicker consistencies at the level of C7 requiring additional time and liquid wash to clear. Brief esophageal scan revealed retention of solids and thicker consistencies with intermittent retrograde flow below PES. Residuals clearing by end of session. No episodes of regurgitation or emesis. Results, recommendations discussed and written safe swallow guidelines provided and reviewed. GI following and patient scheduled for esophageal manometry and esophagram. RECOMMENDATION: Diet Recommendations: Regular Consistency, Thin Liquids IDDSI Level 0 STRICT Swallowing Precautions Recommendations: Alert (patient should be fully alert for oral intake) Sit upright at 90 degrees for all oral intake Maintain an upright position 20-30 minutes following all oral intake Small single bites/sips Alternate bites and sips Feed / Eat at a slow rate Extended time between presentations Medications crushed via pureed or one at a time whole Use extra moistening agents 03/15/2023 Esophageal Manometry Interpretation / Findings LES: high resting pressure, complete relaxation on all swallows. Type I EGJ morphology. Manometric esophageal length is 24.1 cm, body height is 165.1 cm, MELH ratio is 0.14, which is within normal limits. Esophageal body: Supine (10 swallows): 10 swallows with normal peristalsis. Upright (5 swallows): 3 swallows with normal peristalsis, 1 weak, 1 failed. Impressions High resolution esophageal manometry within normal limits. PHYSICAL EXAMINATION: GENERAL: AAOx3, NAD EYES: Non-icteric, EOMI NOSE: Septum midline, no drainage ORAL: Tongue midline, no exudates NECK: Normal ROM PULM: Breathing non-labored without stridor or wheezing ABDOMEN: Reports soft, Non-distended, mid/upper abdominal tenderness EXTREMITIES: Normal ROM SKIN: Non-icteric, no diffuse rashes PSYCH: Appropriate mood and affect. SIGNATURE: Oz Jones DO PATIENT NAME: Becki Jackson DATE: 08/22/2024 TIME: 8:40 AM Please note that portions of this documentation have been copied from the prior encounter however all information has been appropriately reviewed and modified to reflect the current clinical status and plan of care. documented in this encounter [facility] 08-22-2024 Telephone encounter Note Called patient to check for updated insurance information. Patient states she is NOT taking Amitiza, she is not constipated. Telephone encounter sent to Dr. Flanagan. WENDIE for Amitiza initiated via CoverMyMeds, [place]: [id number]. Rx #: [id number] [facility] 08-22-2024 Miscellaneous Notes Called patient to check for updated insurance information. Patient states she is NOT taking Amitiza, she is not constipated. Telephone encounter sent to Dr. Flanagan. PA for Amitiza initiated via CoverMyMeds, [place]: [id number]. Rx #: [id number] documented in this encounter [facility] 08-21-2024 Telephone encounter Note Name of medication: Amitiza Name of ordering provider: Dr. Flanagan VIDHYA: 04/20/2024 L[facility]: 08/15/2024 NOV: Visit date not found NDH: visit date not found Spoke with patient - confirmed patient is requesting refill. Yes Has patient been seen within the year? Yes Pharmacy updated: Yes Medication pended - please file if appropriate. [facility] 08-21-2024 Miscellaneous Notes Name of medication: Amitiza Name of ordering provider: Dr. Flanagan VIDHYA: 04/20/2024 [facility]: 08/15/2024 NOV: Visit date not found NDH: visit date not found Spoke with patient - confirmed patient is requesting refill. Yes Has patient been seen within the year? Yes Pharmacy updated: Yes Medication pended - please file if appropriate. documented in this encounter [facility] 08-17-2024 Telephone encounter Note PA for Granisetron initiated electronically through CMM. Awaiting response [place] Medicaid ID# [id number] [facility] 08-17-2024 Miscellaneous Notes PA for Granisetron initiated electronically through CMM. Awaiting response [place] Medicaid ID# [id number] documented in this encounter [facility] 08-15-2024 Note HNO ID: [id number] Author: CLAIRE FLANAGAN, DO Service: ? Author Type: Physician Type: Progress Notes Filed: 08/15/2024 15:37 Note Text: FOLLOW UP VIRTUAL VISIT I have communicated my name and active licensure. The patient's identity and physical location were verified at the time of this visit. Either the patient or their legal rental sales representative has been informed of the risks and benefits of -- and alternatives to -- treatment through a remote evaluation and consents to proceed with the evaluation remotely. This visit was conducted as a virtual visit. CHIEF COMPLAINT Patient presents with: Constipation Nausea Ms. Jackson is here today for follow-up of: nausea constipation. HPI I saw this patient in follow up for the gi issues by virtual visit. The patient was last seen on 03/28/2024. The patient will be seeing Dr. Jones in the near future to discuss POP procedure. The bowels are now somewhat better with 2-3 times a day on Amitiza. Her upper symptoms are severe and she is vomiting at least 2 times a day. Current Outpatient Medications Medication Sig Dispense Refill apixaban (ELIQUIS) 5 mg tab(s) Take 1 tablet by mouth every 12 hours. granisetron HCl (KYTRIL) 1 mg tablet Take 1 tablet by mouth every 12 hours as needed. 60 tablet 5 aprepitant (EMEND) 80 mg capsule Take 1 capsule by mouth once daily. 30 capsule 5 busPIRone (BUSPAR) 10 mg tablet Take 1 tablet by mouth three times a day. 90 tablet 5 busPIRone (BUSPAR) 5 mg tablet Take 1 tablet by mouth three times a day. 90 tablet 5 lubiprostone (AMITIZA) 8 mcg capsule Take 1 capsule by mouth two times a day with meals. 60 capsule 5 clonazePAM (KLONOPIN) 0.5 mg tablet Take 1 tablet by mouth once daily as needed for up to 7 days. gabapentin (NEURONTIN) 300 mg capsule Take 300 mg by mouth three times a day. paliperidone ER (INVEGA) 3 mg 24 hr tablet Take 3 mg by mouth once daily. folic acid 400 mcg tablet Take 400 mcg by mouth once daily. QUEtiapine (SEROQUEL) 300 mg tablet Take 300 mg by mouth daily at bedtime. albuterol HFA (PROAIR HFA) 90 mcg/actuation inhaler Inhale 2 Puffs as instructed every 4 hours as needed for Wheezing/Shortness of Breath. 1 Inhaler 0 No current facility-administered medications for this visit. ALLERGIES Allergen Reactions Iodinated Contrast * Vomiting Penicillins Hives Sulfa (Sulfonamide * Hives Social History Tobacco Use Smoking status: Former Current packs/day: 0.00 Types: Cigarettes Start date: 03/08/2009 Quit date: 03/08/2013 Years since quittin.4 Smokeless tobacco: Never Substance Use Topics Alcohol use: No Drug use: No Medical History: No changes since last visit. REVIEW OF SYSTEMS: GENERAL: weight stable, no fevers. CARDIOVASCULAR: No chest pain, no edema RESPIRATORY: No dyspnea : Negative SOCK DRIER: Negative The remainder of the review of systems are negative. Reviewed with patient during visit today. PHYSICAL EXAMINATION: [facility] 11/29/2023 Estimated weight: GENERAL APPEARANCE: Well developed and well nourished. SKIN: Skin color, texture, turgor normal. No rashes or lesions. EYES: Conjunctiva normal without icterus. OROPHARYNX: lips, mucosa, and tongue normal, teeth and gums normal NECK: no JVD LUNGS: Normal respirations on RA HEART:pt describes normal heart rythm NEURO: Alert and oriented in no acute distress. ABDOMEN: nondistended EXTREMITIES:Extremities normal, No deformities, No skin discoloration, No edema . Assessment Encounter Diagnosis ICD-10-CM 1. Nausea and vomiting, unspecified vomiting type R11.2 granisetron HCl (KYTRIL) 1 mg tablet aprepitant (EMEND) 80 mg capsule 2. Gastroparesis K31.84 busPIRone (BUSPAR) 10 mg tablet Claire Flanagan DO 08/15/2024 [facility] 08-15-2024 History of Present illness Narrative FOLLOW UP VIRTUAL VISIT I have communicated my name and active licensure. The patient's identity and physical location were verified at the time of this visit. Either the patient or their legal rental sales representative has been informed of the risks and benefits of -- and alternatives to -- treatment through a remote evaluation and consents to proceed with the evaluation remotely. This visit was conducted as a virtual visit. CHIEF COMPLAINT Patient presents with: Constipation Nausea Ms. Jackson is here today for follow-up of: nausea constipation. HPI I saw this patient in follow up for the gi issues by virtual visit. The patient was last seen on 03/28/2024. The patient will be seeing Dr. Jones in the near future to discuss POP procedure. The bowels are now somewhat better with 2-3 times a day on Amitiza. Her upper symptoms are severe and she is vomiting at least 2 times a day. Current Outpatient Medications Medication Sig Dispense Refill apixaban (ELIQUIS) 5 mg tab(s) Take 1 tablet by mouth every 12 hours. granisetron HCl (KYTRIL) 1 mg tablet Take 1 tablet by mouth every 12 hours as needed. 60 tablet 5 aprepitant (EMEND) 80 mg capsule Take 1 capsule by mouth once daily. 30 capsule 5 busPIRone (BUSPAR) 10 mg tablet Take 1 tablet by mouth three times a day. 90 tablet 5 busPIRone (BUSPAR) 5 mg tablet Take 1 tablet by mouth three times a day. 90 tablet 5 lubiprostone (AMITIZA) 8 mcg capsule Take 1 capsule by mouth two times a day with meals. 60 capsule 5 clonazePAM (KLONOPIN) 0.5 mg tablet Take 1 tablet by mouth once daily as needed for up to 7 days. gabapentin (NEURONTIN) 300 mg capsule Take 300 mg by mouth three times a day. paliperidone ER (INVEGA) 3 mg 24 hr tablet Take 3 mg by mouth once daily. folic acid 400 mcg tablet Take 400 mcg by mouth once daily. QUEtiapine (SEROQUEL) 300 mg tablet Take 300 mg by mouth daily at bedtime. albuterol HFA (PROAIR HFA) 90 mcg/actuation inhaler Inhale 2 Puffs as instructed every 4 hours as needed for Wheezing/Shortness of Breath. 1 Inhaler 0 No current facility-administered medications for this visit. ALLERGIES Allergen Reactions Iodinated Contrast * Vomiting Penicillins Hives Sulfa (Sulfonamide * Hives Social History Tobacco Use Smoking status: Former Current packs/day: 0.00 Types: Cigarettes Start date: 03/08/2009 Quit date: 03/08/2013 Years since quittin.4 Smokeless tobacco: Never Substance Use Topics Alcohol use: No Drug use: No Medical History: No changes since last visit. REVIEW OF SYSTEMS: GENERAL: weight stable, no fevers. CARDIOVASCULAR: No chest pain, no edema RESPIRATORY: No dyspnea : Negative SOCK DRIER: Negative The remainder of the review of systems are negative. Reviewed with patient during visit today. PHYSICAL EXAMINATION: [facility] 11/29/2023 Estimated weight: GENERAL APPEARANCE: Well developed and well nourished. SKIN: Skin color, texture, turgor normal. No rashes or lesions. EYES: Conjunctiva normal without icterus. OROPHARYNX: lips, mucosa, and tongue normal, teeth and gums normal NECK: no JVD LUNGS: Normal respirations on RA HEART:pt describes normal heart rythm NEURO: Alert and oriented in no acute distress. ABDOMEN: nondistended EXTREMITIES:Extremities normal, No deformities, No skin discoloration, No edema . Assessment Encounter Diagnosis ICD-10-CM 1. Nausea and vomiting, unspecified vomiting type R11.2 granisetron HCl (KYTRIL) 1 mg tablet aprepitant (EMEND) 80 mg capsule 2. Gastroparesis K31.84 busPIRone (BUSPAR) 10 mg tablet Claire Flanagan DO 08/15/2024 documented in this encounter [facility] 08-04-2024 Hospital course Narrative Discharge Summary Name: Becki Jackson Age: 34 y.o. Birthday: 1990 Admit Date: 08/02/2024 5:46 PM Discharge Date: 08/04/24 Discharge Time: 10:13 AM Admission Information Admitting Physician: Odette Rousseau MD Discharge Information Discharge Physician: Parviz Carranza MD Problem List Active Hospital Problems Diagnosis Acute febrile illness STEVE (generalized anxiety disorder) GERD (gastroesophageal reflux disease) Gastroparesis Resolved Hospital Problems No resolved problems to display. Brief Summary of Hospital Course for Discharge Summary: This is a 34-year-old female who presented to the emergency department for evaluation of fever. She reports feeling hot and flushed for approximately 24 hours prior to arrival but she did not have a thermometer so was unable to take her temperature. She also reported upper abdominal pain without nausea, vomiting or diarrhea. She was placed in observation for evaluation and further treatment of an acute febrile illness. She was treated with IV antibiotics in the ED which improved her WBCs. Patient also reports that she has not had a bowel movement in a few days. She was trialed on senna without any results. She received a soapsuds enema this morning and reports a bowel movement within 10 minutes. She was also given a dose of MiraLax. Discussed that she would probably continue to have bowel movements throughout the day. She denies abdominal pain, nausea, vomiting at this time. She has been afebrile throughout her entire hospital stay. She was instructed to follow up with her PCP. Brief Summary of Consults for Discharge Summary: Brief Summary of Procedures and Imaging for Discharge Summary: Summary of last selected lab results and date obtained: Lab Results Component Value Date WBC 8.1 08/04/2024 HGB 12.9 08/04/2024 HCT 38.5 08/04/2024 PLATELET 306 08/04/2024 MCV 89.8 08/04/2024 Lab Results Component Value Date SODIUM 137 08/04/2024 POTASSIUM 4.8 08/04/2024 CHLORIDE 107 08/04/2024 CO2 27 08/04/2024 BUN 19 08/04/2024 CREATSERUM 0.90 08/04/2024 GLUCOSE 91 08/04/2024 Lab Results Component Value Date ALT 17 08/04/2024 AST 16 08/04/2024 ALKPHOS 75 08/04/2024 BILITOTAL 0.5 08/04/2024 Brief Summary of Labs for Discharge Summary: No discharge procedures on file. Current Outpatient Meds: Medication List for when you go home CONTINUE taking these medications Morning Afternoon Evening Bedtime As Needed apixaban 5 MG TABS Take 2 tablets (10 mg) by mouth twice daily for 7 days, then 1 tablet (5 mg) twice daily. Commonly known as: ELIQUIS Last time this was given: 5 mg on August 04, 2024 8:54 AM busPIRone 5 MG TABS Take 1 tablet by mouth Three times a day. Commonly known as: BUSPAR Last time this was given: 5 mg on August 04, 2024 8:53 AM Cyclobenzaprine 10 MG TABS Take 1 tablet by mouth 3 times daily as needed for Muscle spasms. Commonly known as: FLEXERIL Gabapentin 300 MG CAPS Take 1 capsule by mouth Three times a day. Commonly known as: NEURONTIN Last time this was given: 300 mg on August 04, 2024 8:53 AM naproxen 500 MG TABS Take 1 tablet by mouth 2 times daily as needed. Commonly known as: NAPROSYN Ondansetron 4 MG ODT tablet Take 1 tablet by mouth every [address] on tongue Commonly known as: ZOFRAN-ODT Last time this was given: Ask your nurse or doctor traZODone 50 MG TABS take 1 to 2 tablets by mouth at bedtime Commonly known as: DESYREL Last time this was given: 50 mg on August 03, 2024 10:02 PM STOP taking these medications clindamycin 300 MG CAPS Commonly known as: CLEOCIN hydroCODone-acetaminophen 5-325 MG TABS Commonly known as: NORCO 1 PO warfarin 10 MG tablet Commonly known as: COUMADIN Follow-up: María Hernandez MD [address] [id number] Follow up in 1 week(s) Discharge Disposition: Patient will be discharged in stable condition. Discharge Time: Including assessment, planning, and medication reconciliation was 10 minutes of CENTERP[facility]CHER time. Lalita Heart CNP completing Discharge Summary for Dr. Carranza Associated attestation - Parviz Carranza MD - 08/04/2024 4:38 PM EDT Patient seen and examined. All testing reviewed. Discussed with CENTERP[facility]CHER and agree with A/P. Still with abdominal pain overnight. Nausea without vomiting. She has not had a response to current laxatives with a bowel movement as of yet. As a result she was given an enema which produced a large bowel movement and relief of her symptoms. All imaging was reviewed and unremarkable. Afebrile with normal vital signs. Her comprehensive metabolic panel and CBC were normal. Close outpatient follow up with her primary care provider. 35 minutes total time over half by me. Objective: Blood pressure 114/62, pulse 112, temperature 98.4 F (36.9 C), temperature source Temporal, resp. rate 16, height 1.651 m (5' 5), weight 112.5 kg (248 lb), last menstrual period 07/16/2024, SpO2 98%, not currently . Results for orders placed or performed during the hospital encounter of 08/02/24 [facility] 1 - NASOPHARYNGEAL Specimen: NASOPHARYNGEAL; Fluid/Swab Result Value Ref Range SARS COV 2 RNA, QL REAL TIME RT PCR NOT DETECTED NOT DETECTED NARRATIVE -1 This test was performed using isothermal ANUSHA for the qualitative detection of SARS-CoV-2 nucleic acid. BLOOD CULTURE Specimen: BLOOD, PERIPH Result Value Ref Range SPECIMEN DESCRIPTION PERIPHERAL BLOOD DRAW COMMENT LAC RESULT-CULT NO GROWTH 1 DAY Report Status PENDING BLOOD CULTURE Specimen: BLOOD, PERIPH Result Value Ref Range SPECIMEN DESCRIPTION PERIPHERAL BLOOD DRAW COMMENT RAC RESULT-CULT NO GROWTH 1 DAY Report Status PENDING CBC, EDIF, PLATELET Result Value Ref Range WBC (WHITE BLOOD COUNT) 25.4 (HH) 3.6 - 11.0 10*3/uL RBC 4.37 4.0 - 5.4 10*6/uL HEMOGLOBIN (HGB) 12.8 12.0 - 16.0 G/DL HEMATOCRIT (HCT) 38.6 36.0 - 48.0 % MEAN CELL VOLUME 88.4 80.0 - 100.0 FL Mean Cell HGB 29.2 26.0 - 35.0 PG MEAN CELL HGB CONCENTRATION 33.1 27.0 - 37.0 G/DL RBC DISTRIBUTION 14.8 (H) 11.5 - 14.5 % PLATELET COUNT 338 130 - 400 10*3/uL MEAN PLATELET VOLUME 7.0 (L) 7.4 - 11.0 FL NEUTROPHILS 86 (H) 37.0 - 75.0 % BAND NEUTROPHIL % 3 (H) 0.0 - 2.0 % LYMPHOCYTE 7 (L) 20.0 - 55.0 % MONOCYTE % 4 0.0 - 10.0 % EOSINOPHIL % 0 0.0 - 11.0 % BASOPHIL % 0 0.0 - 2.0 % MORPHOLOGY 1+ DIFFERENTIAL TYPE MANUAL DIFF % PLATELET COMMENT ADEQUATE COMPREHENSIVE METABOLIC PANEL Result Value Ref Range Glucose 125 (H) 70 - 100 MG/DL BUN 17 7 - 20 MG/DL CREATININE SERUM 0.80 0.70 - 1.20 MG/DL SODIUM 138 137 - 145 MMOL/L POTASSIUM 3.6 3.5 - 5.1 MMOL/L CHLORIDE 109 (H) 98 - 107 MMOL/L CALCIUM 9.4 8.4 - 10.2 MG/DL PROTEIN, TOTAL 6.8 6.3 - 8.2 GM/DL Albumin 3.9 3.5 - 5.0 G/dl BILIRUBIN, TOTAL 0.4 0.2 - 1.3 MG/DL AST 21 14 - 36 IU/L ALKALINE PHOSPHATASE 80 38 - 126 IU/L CARBON DIOXIDE (CO2) 23 22 - 30 MMOL/L A/G Ratio 1.3 RATIO ALT 24 <35 IU/L ESTIMATED GFR, NON AMER 88 ml/min/1.73sq.m ESTIMATED GFR, 106 ml/min/1.73sq.m GFR COMMENT Average GFR for 30-39 years old = 107. LIPASE Result Value Ref Range LIPASE 61 23 - 300 U/L LACTATE, BLOOD Result Value Ref Range LACTATE 1.3 0.7 - 2.0 mmol/L TSH Result Value Ref Range TSH 0.150 (L) 0.465 - 4.680 uIU/ML YESENIA SMEAR Result Value Ref Range BLOOD SMEAR REVIEW TESTING PERFORMED BY PATHOLOGIST CBC, EDIF, PLATELET Result Value Ref Range WBC (WHITE BLOOD COUNT) 15.4 (H) 3.6 - 11.0 10*3/uL RBC 4.30 4.0 - 5.4 10*6/uL HEMOGLOBIN (HGB) 12.7 12.0 - 16.0 G/DL HEMATOCRIT (HCT) 38.4 36.0 - 48.0 % MEAN CELL VOLUME 89.2 80.0 - 100.0 FL Mean Cell HGB 29.5 26.0 - 35.0 PG MEAN CELL HGB CONCENTRATION 33.1 27.0 - 37.0 G/DL RBC DISTRIBUTION 15.2 (H) 11.5 - 14.5 % PLATELET COUNT 316 130 - 400 10*3/uL MEAN PLATELET VOLUME 7.1 (L) 7.4 - 11.0 FL DIFFERENTIAL TYPE AUTO DIFF % NEUTROPHILS 77.4 (H) 37.0 - 75.0 % LYMPHOCYTE 13.8 (L) 20.0 - 55.0 % MONOCYTE % 8.2 0.0 - 10.0 % EOSINOPHIL % 0.3 0.0 - 11.0 % BASOPHIL % 0.3 0.0 - 2.0 % Absolute Neutrophil Count 12.0 (H) 1.4 - 6.5 10*3/uL LYMPHOCYTES, ABSOLUTE 2.1 1.2 - 3.4 10*3/uL MONOCYTES, ABSOLUTE 1.3 (H) 0.0 - 0.7 10*3/uL ABSOLUTE EOSINOPHIL COUNT 0.0 0.0 - 0.7 10*3/uL ABSOLUTE BASOPHIL COUNT 0.0 0.0 - 0.2 10*3/uL COMPREHENSIVE METABOLIC PANEL Result Value Ref Range Glucose 104 (H) 70 - 100 MG/DL BUN 18 7 - 20 MG/DL CREATININE SERUM 0.87 0.70 - 1.20 MG/DL SODIUM 140 137 - 145 MMOL/L POTASSIUM 4.2 3.5 - 5.1 MMOL/L CHLORIDE 111 (H) 98 - 107 MMOL/L CALCIUM 9.0 8.4 - 10.2 MG/DL PROTEIN, TOTAL 6.5 6.3 - 8.2 GM/DL Albumin 3.7 3.5 - 5.0 G/dl BILIRUBIN, TOTAL 0.3 0.2 - 1.3 MG/DL AST 17 14 - 36 IU/L ALKALINE PHOSPHATASE 68 38 - 126 IU/L CARBON DIOXIDE (CO2) 23 22 - 30 MMOL/L A/G Ratio 1.3 RATIO ALT 19 <35 IU/L ESTIMATED GFR, NON AMER 80 ml/min/1.73sq.m ESTIMATED GFR, 96 ml/min/1.73sq.m GFR COMMENT Average GFR for 30-39 years old = 107. CBC, EDIF, PLATELET Result Value Ref Range WBC (WHITE BLOOD COUNT) 8.1 3.6 - 11.0 10*3/uL RBC 4.28 4.0 - 5.4 10*6/uL HEMOGLOBIN (HGB) 12.9 12.0 - 16.0 G/DL HEMATOCRIT (HCT) 38.5 36.0 - 48.0 % MEAN CELL VOLUME 89.8 80.0 - 100.0 FL Mean Cell HGB 30.2 26.0 - 35.0 PG MEAN CELL HGB CONCENTRATION 33.6 27.0 - 37.0 G/DL RBC DISTRIBUTION 14.6 (H) 11.5 - 14.5 % PLATELET COUNT 306 130 - 400 10*3/uL MEAN PLATELET VOLUME 7.1 (L) 7.4 - 11.0 FL DIFFERENTIAL TYPE AUTO DIFF % NEUTROPHILS 64.1 37.0 - 75.0 % LYMPHOCYTE 23.1 20.0 - 55.0 % MONOCYTE % 10.1 (H) 0.0 - 10.0 % EOSINOPHIL % 1.7 0.0 - 11.0 % BASOPHIL % 1.0 0.0 - 2.0 % Absolute Neutrophil Count 5.2 1.4 - 6.5 10*3/uL LYMPHOCYTES, ABSOLUTE 1.9 1.2 - 3.4 10*3/uL MONOCYTES, ABSOLUTE 0.8 (H) 0.0 - 0.7 10*3/uL ABSOLUTE EOSINOPHIL COUNT 0.1 0.0 - 0.7 10*3/uL ABSOLUTE BASOPHIL COUNT 0.1 0.0 - 0.2 10*3/uL COMPREHENSIVE METABOLIC PANEL Result Value Ref Range Glucose 91 70 - 100 MG/DL BUN 19 7 - 20 MG/DL CREATININE SERUM 0.90 0.70 - 1.20 MG/DL SODIUM 137 137 - 145 MMOL/L POTASSIUM 4.8 3.5 - 5.1 MMOL/L CHLORIDE 107 98 - 107 MMOL/L CALCIUM 8.9 8.4 - 10.2 MG/DL PROTEIN, TOTAL 6.3 6.3 - 8.2 GM/DL Albumin 3.5 3.5 - 5.0 G/dl BILIRUBIN, TOTAL 0.5 0.2 - 1.3 MG/DL AST 16 14 - 36 IU/L ALKALINE PHOSPHATASE 75 38 - 126 IU/L CARBON DIOXIDE (CO2) 27 22 - 30 MMOL/L A/G Ratio 1.3 RATIO ALT 17 <35 IU/L ESTIMATED GFR, NON AMER 77 ml/min/1.73sq.m ESTIMATED GFR, 93 ml/min/1.73sq.m GFR COMMENT Average GFR for 30-39 years old = 107. URINALYSIS, MACRO Result Value Ref Range COLOR, URINE YELLOW YELLOW APPEARANCE, URINE CLEAR CLEAR Specific [place], Urine >1.030 (H) 1.010 - 1.025 PH URINE 6.0 5.0 - 7.0 Urine Protein NEGATIVE NEGATIVE mg/dl GLUCOSE, URINE NEGATIVE NEGATIVE mg/dl KETONES, URINE NEGATIVE NEGATIVE mg/dl BILIRUBIN, URINE NEGATIVE NEGATIVE BLOOD, URINE DIPSTICK NEGATIVE NEGATIVE NITRITES, URINE NEGATIVE NEGATIVE UROBILINOGEN, URINE 1.0 0.2 - 1.0 E.U./dL LEUKOCYTE ESTERASE, URINE NEGATIVE NEGATIVE HEENT: NC/AT, PERRLA, EOMI, fundi benign, external ears normal, OP normal. Neck: No LAD/thyromegaly. No JVD/bruit. Lungs: Clear to auscultation bilaterally. No wheezes, rales, ronchi. Heart: RRR. No S3/S4. Abdomen: Soft, ND, normal bowel sounds, no HSM, no bruits. Mild diffuse tenderness without rebound. Extremities: No clubbing, cyanosis, edema. Normal pulses. Neurologic: CN II-XII intact. Strength/DTR's/sensation symmetric. Cerebellar function normal. Skin: No rash or suspicious lesions. Musculoskeletal: No edema, redness, warmth, deformities. Psychiatric: Alert and oriented. Affect and mood normal. Parviz Carranza MD 08/04/2024 documented in this encounter [facility] 08-04-2024 Nurse Note Pt is being discharged, however she is not willing to wait for the paperwork. She states her ride will have to leave because he has to be at work. Lalita GUO made aware, okay to send home. [facility] 08-04-2024 Miscellaneous Notes Pt is being discharged, however she is not willing to wait for the paperwork. She states her ride will have to leave because he has to be at work. Lalita GUO made aware, okay to send home. Problem: Adult Inpatient Plan of Care Goal: Plan of Care Review Outcome: Adequate for Discharge Goal: Patient-Specific Goal (Individualized) Outcome: Adequate for Discharge Goal: Absence of Hospital-Acquired Illness or Injury Outcome: Adequate for Discharge Goal: Optimal Comfort and Wellbeing Outcome: Adequate for Discharge Goal: Readiness for Transition of Care Outcome: Adequate for Discharge Problem: Skin Injury Risk Increased Goal: Skin Health and Integrity Outcome: Adequate for Discharge Problem: Infection Goal: Absence of Infection Signs and Symptoms Outcome: Adequate for Discharge Problem: Pain Acute Goal: Optimal Pain Control and Function Outcome: Adequate for Discharge Problem: VTE (Venous Thromboembolism) Goal: Tissue Perfusion Outcome: Adequate for Discharge Goal: Right Ventricular Function Outcome: Adequate for Discharge Pt reported to RN that she had a moderate size brown bowel movement, that she did flush. Pt given instructions on how to perform a soap suds enema, RN set up enema in the bathroom. Instructed to call if she needed assistance or when completed. Pt resting in bed. Assessment remains unchanged from previous. Call light is within reach. Pt resting in bed.. Assessment remains unchanged from previous. Call light is within reach. Pt resting in bed, no physical assessment changes noted from previous. Pain remains unchanged, she tolerates a regular diet, fluids, and denies any nausea. Pt resting in bed, appears comfortable, rating her pain a 10/10, mid to right side of her abdomen. She is tolerating food at this time, denying any nausea. Dilaudid given per order. Pt ordering lunch. Will monitor. Assessment remains unchanged from previous. Call light within reach. Assessment remains unchanged from previous. Patient resting quietly upon entering, appears to be asleep. Reports pain of 8/10. Educated on next prn pain medication time, voices understanding. Declines further needs, call light within reach. documented in this encounter [facility] 08-04-2024 Plan of care note Problem: Adult Inpatient Plan of Care Goal: Plan of Care Review Outcome: Adequate for Discharge Goal: Patient-Specific Goal (Individualized) Outcome: Adequate for Discharge Goal: Absence of Hospital-Acquired Illness or Injury Outcome: Adequate for Discharge Goal: Optimal Comfort and Wellbeing Outcome: Adequate for Discharge Goal: Readiness for Transition of Care Outcome: Adequate for Discharge Problem: Skin Injury Risk Increased Goal: Skin Health and Integrity Outcome: Adequate for Discharge Problem: Infection Goal: Absence of Infection Signs and Symptoms Outcome: Adequate for Discharge Problem: Pain Acute Goal: Optimal Pain Control and Function Outcome: Adequate for Discharge Problem: VTE (Venous Thromboembolism) Goal: Tissue Perfusion Outcome: Adequate for Discharge Goal: Right Ventricular Function Outcome: Adequate for Discharge T [facility] 08-04-2024 Nurse Note Pt reported to RN that she had a moderate size brown bowel movement, that she did flush. [facility] 08-04-2024 Nurse Note Pt given instructions on how to perform a soap suds enema, RN set up enema in the bathroom. Instructed to call if she needed assistance or when completed. [facility] 08-04-2024 Nurse Note Pt resting in bed. Assessment remains unchanged from previous. Call light is within reach. [facility] 08-04-2024 Nurse Note Pt resting in bed.. Assessment remains unchanged from previous. Call light is within reach. [facility] 08-03-2024 Nurse Note Pt resting in bed, no physical assessment changes noted from previous. Pain remains unchanged, she tolerates a regular diet, fluids, and denies any nausea. T [facility] 08-03-2024 History and physical note History and Physical Examination 08/03/24 3:16 PM Chief Complaint: fever History of Present Illness: Patient is a 34 y.o. female with a past medical history that includes gastroparesis, anxiety and DVT in left arm presents to [facility] for evaluation of fever. She reports yesterday morning she began to feel hot and flushed. She did not have a thermometer so was unable to take her temperature to know exactly if she had a fever. She also reported upper abdominal pain without nausea, vomiting or diarrhea. She denied chest pain, shortness of breath, chills, myalgias, dizziness or headache. She denied any recent ill contacts. She reports that she has had a decreasing appetite for the last 2 weeks. She does have a history of gastroparesis and is following with a specialist in [place]. She denies being diabetic and they are unclear cause. On arrival to ED, patient was afebrile with stable vital signs. Labs revealed a white count of 25.4 on admission. She was treated with IV fluids and IV antibiotics. CT abdomen/pelvis was negative for acute findings. Blood cultures were drawn and pending. Patient was recommended for observation. Today the patient has been afebrile. This a.m. she reported upper abdominal discomfort with palpation. She denied nausea, vomiting or diarrhea. Objective: Patient Active Problem List Diagnosis Date Noted Acute febrile illness 08/02/2024 Screen for colon cancer 07/25/2024 colonoscopy needs repeated 2026 STEVE (generalized anxiety disorder) 07/25/2024 GERD (gastroesophageal reflux disease) 07/25/2024 Hiatal hernia 07/25/2024 Moderate recurrent major depression 07/25/2024 Mood swings 07/25/2024 Nausea 07/25/2024 Nephrolithiasis 07/25/2024 Renal lesion 07/25/2024 Right sided abdominal pain 07/25/2024 Stenosis of stomach 07/25/[address] loving 2021 Gastric ulcer 07/25/2024 Tinnitus 07/25/2024 Wheezing 07/25/2024 Acute liver failure 04/05/2024 Acute liver failure without hepatic coma 12/13/2023 Malnutrition of mild degree 12/08/2023 Substance abuse 12/07/2023 Transaminitis 12/07/2023 Pharyngoesophageal dysphagia 08/30/2023 Abdominal pain 05/24/2023 Gastroparesis 01/20/2023 Past Medical History: Diagnosis Date Acute liver failure ADHD Anxiety Bipolar 1 disorder Depression Gastroparesis Gastroparesis Hereditary vascular fragility Kidney lesion Past Surgical History: Procedure Laterality Date KNEE SURGERY bilateral knees TONSILLECTOMY ADENOIDECTOMY Social History Tobacco Use Smoking status: Former Current packs/day: 0.25 Types: Cigarettes Smokeless tobacco: Former Types: Chew Substance Use Topics Alcohol use: Not Currently History reviewed. No pertinent family history. Medications Prior to Admission Medication Sig Dispense Refill Last Dose apixaban 5 MG tablet Take 2 tablets (10 mg) by mouth twice daily for 7 days, then 1 tablet (5 mg) twice daily. 74 tablet 0 08/02/2024 traZODone 50 MG tablet take 1 to 2 tablets by mouth at bedtime 08/01/2024 busPIRone 5 MG tablet Take 1 tablet by mouth Three times a day. Unknown clindamycin 300 MG capsule Take 1 capsule by mouth 4 times daily for 5 days. 20 capsule 0 cyclobenzaprine 10 MG tablet Take 1 tablet by mouth 3 times daily as needed for Muscle spasms. 15 tablet 0 Unknown Gabapentin 300 MG capsule Take 1 capsule by mouth Three times a day. Unknown hydroCODone-acetaminophen 5-325 MG tablet Take 1 tablet by mouth every 4 hours as needed for up to 3 days. 10 tablet 0 naproxen 500 MG tablet Take 1 tablet by mouth 2 times daily as needed. 20 tablet 0 Unknown Ondansetron 4 MG Tab Dispersible tablet Take 1 tablet by mouth every [address] on tongue 15 tablet 0 Unknown MV-Min-Fe Fum-FA-DHA ( 1 PO) Take by mouth. Unknown warfarin 10 MG tablet 1 tab PO QPM 21 tablet 0 Unknown Allergies Allergen Reactions Amoxicillin Contrast Dye [Ivp Dye, Iodine Containing] Penicillins Sulfa Antibiotics Review of Systems: Ten systems reviewed and found to be negative unless otherwise stated in the history and present illness. PHYSICAL EXAM: Patient Vitals for the past 8 hrs: BP Temp Temp src Pulse Resp SpO2 08/03/24 1143 101/52 97 F (36.1 C) Temporal 78 16 96 % 08/03/24 0822 115/57 97.4 F (36.3 C) Temporal 95 16 99 % General: Patient resting comfortably. Awake. No acute distress. HEENT: Normalcephalic, atraumatic. Pupils equal, round, reactive, to light and accomodation B/L. Bilateral nares patent without obvious drainage. Oral mucosa moist, pink, intact without ulcers or lesions. Neck: No JVD, no thyromegaly, no anterior or posterior lymphadenopathy. Cardiovascular: Regular rate and rhythm, without murmurs, rubs, or gallops. Respiratory: Breath sounds clear without wheezes, rales, or rhonchi throughout Abdomen: Soft, rounded, non-tender. Bowel sounds present x4 quadrants. Extremities: No edema, clubbing or cyanosis, pulses palpable 2+ distally. Skin: Warm, Dry, Intact. No obvious rashes or lesions noted. Neuro: Patient awake, alert, orientedx3. No focal defiects noted. M/S: No joint errythema or pain noted; no clubbing Diagnostics: Lab Results Component Value Date WBC 15.4 (H) 08/03/2024 HGB 12.7 08/03/2024 HCT 38.4 08/03/2024 PLATELET 316 08/03/2024 MCV 89.2 08/03/2024 @LASTMAGNESIUM(1D,2)@ Lab Results Component Value Date INR 0.94 08/01/2024 INR 0.94 07/25/2024 INR 0.95 07/23/2024 PT 12.7 08/01/2024 PT 12.6 07/25/2024 PT 12.8 07/23/2024 Lab Results Component Value Date CREATSERUM 0.87 08/03/2024 BUN 18 08/03/2024 SODIUM 140 08/03/2024 POTASSIUM 4.2 08/03/2024 CHLORIDE 111 (H) 08/03/2024 CO2 23 08/03/2024 Lab Results Component Value Date SPGRVTYUR >1.030 (H) 08/02/2024 GLUCOSEURINE NEGATIVE 08/02/2024 BILIRUBINURI NEGATIVE 08/02/2024 KETONESURINE NEGATIVE 08/02/2024 NITRITESURIN NEGATIVE 08/02/2024 LEUKOCESTUR NEGATIVE 08/02/2024 WBCURINE NEGATIVE 04/05/2024 RBCURINE NEGATIVE 04/05/2024 BACTERIAURIN NEGATIVE 04/05/2024 Full Code Impression and Plan: Principal Problem: Acute febrile illness: Received IV antibiotic in ED. continue IV fluids. Patient afebrile at this time Active Problems: Leukocytosis: WBC 25.4 on admission, improved today, we will repeat tomorrow. Left arm DVT: doppler positive for DVT on 07/23/24, continue Eliquis Gastroparesis: Following with specialist in [place]. I will add Reglan t.i.d. STEVE (generalized anxiety disorder): continue home medications GERD (gastroesophageal reflux disease): Reglan and Protonix PT OT SS for dc planning GI/DVT prophylaxis with protonix and eliquis 10 minutes spent of [facility] time including assessment, planning, and discussion with nursing staff and patient Please note Portions of this note utilized Pennant dictation software, please excuse any typographical or grammatical errors [facility], [facility] Medicine Associated attestation - Odette Rousseau MD - 08/03/2024 5:35 PM EDT I have personally seen and examined Becki Jackson and I agree with the physical exam as stated below. I have personally reviewed all available clinical data related to today's encounter including, but not limited to, radiology images and reports, laboratory data, and procedure reports. I have been fully involved in formulation of the assessment and plan. Pt is a 34 F admitted with malaise fevers at home, abdominal pain. Pt has a history of gastroparesis, unknown cause, worked up at OSH. Pt with decreased appetite. Pt complains of constipation, passing flatus. Per patient no BM for 2 days, normally goes 1-2 times a day. Patient Vitals for the past 8 hrs: BP Temp Temp src Pulse Resp SpO2 08/03/24 1553 114/64 98.2 F (36.8 C) Temporal 96 16 98 % 08/03/24 1143 101/52 97 F (36.1 C) Temporal 78 16 96 % On Exam today, patient AAO x 3 S1 S2 RRR no m/g/r CTAB no w/c/r Soft mild distention, general ttp,, +BS no rebound, no guarding No edema Assessment, plan, and Medical decision making: Acute febrile illness - likely viral syndrome, WBC decreasing, no evidence of bacterial infection, on cultures, blood culture NGT, no evidence of UTI, no evidence of pneumonia 2. History of gastroparesis - ordered reglan 3. Constipation - ordered senna/colace 1 tab po bid 4. Left arm DVT - stable - continue PO eliquis 5. Chronic GERD - stable - continue protonix and reglan 6. Morbid obesity due to excess calories BMI 41 - lifestyle modification, outpatient PCP follow up 7. DVT Prophylaxis - ordered SCDs, continue PO eliquis Pt is observation possible discharge in next 24 hours A total time of > 55 mins was spent today, reviewing the patients diagnostic tests, assessing and examining the patient, creating appropriate documentation; none of which was spent performing any separate billable procedures or ancillary services. This time is inclusive of time documented by [facility]. [facility] 08-03-2024 History and physical note History and Physical Examination 08/03/24 3:16 PM Chief Complaint: fever History of Present Illness: Patient is a 34 y.o. female with a past medical history that includes gastroparesis, anxiety and DVT in left arm presents to [facility] for evaluation of fever. She reports yesterday morning she began to feel hot and flushed. She did not have a thermometer so was unable to take her temperature to know exactly if she had a fever. She also reported upper abdominal pain without nausea, vomiting or diarrhea. She denied chest pain, shortness of breath, chills, myalgias, dizziness or headache. She denied any recent ill contacts. She reports that she has had a decreasing appetite for the last 2 weeks. She does have a history of gastroparesis and is following with a specialist in [place]. She denies being diabetic and they are unclear cause. On arrival to ED, patient was afebrile with stable vital signs. Labs revealed a white count of 25.4 on admission. She was treated with IV fluids and IV antibiotics. CT abdomen/pelvis was negative for acute findings. Blood cultures were drawn and pending. Patient was recommended for observation. Today the patient has been afebrile. This a.m. she reported upper abdominal discomfort with palpation. She denied nausea, vomiting or diarrhea. Objective: Patient Active Problem List Diagnosis Date Noted Acute febrile illness 08/02/2024 Screen for colon cancer 07/25/2024 colonoscopy needs repeated 2026 STEVE (generalized anxiety disorder) 07/25/2024 GERD (gastroesophageal reflux disease) 07/25/2024 Hiatal hernia 07/25/2024 Moderate recurrent major depression 07/25/2024 Mood swings 07/25/2024 Nausea 07/25/2024 Nephrolithiasis 07/25/2024 Renal lesion 07/25/2024 Right sided abdominal pain 07/25/2024 Stenosis of stomach 07/25/[address] loving 2021 Gastric ulcer 07/25/2024 Tinnitus 07/25/2024 Wheezing 07/25/2024 Acute liver failure 04/05/2024 Acute liver failure without hepatic coma 12/13/2023 Malnutrition of mild degree 12/08/2023 Substance abuse 12/07/2023 Transaminitis 12/07/2023 Pharyngoesophageal dysphagia 08/30/2023 Abdominal pain 05/24/2023 Gastroparesis 01/20/2023 Past Medical History: Diagnosis Date Acute liver failure ADHD Anxiety Bipolar 1 disorder Depression Gastroparesis Gastroparesis Hereditary vascular fragility Kidney lesion Past Surgical History: Procedure Laterality Date KNEE SURGERY bilateral knees TONSILLECTOMY ADENOIDECTOMY Social History Tobacco Use Smoking status: Former Current packs/day: 0.25 Types: Cigarettes Smokeless tobacco: Former Types: Chew Substance Use Topics Alcohol use: Not Currently History reviewed. No pertinent family history. Medications Prior to Admission Medication Sig Dispense Refill Last Dose apixaban 5 MG tablet Take 2 tablets (10 mg) by mouth twice daily for 7 days, then 1 tablet (5 mg) twice daily. 74 tablet 0 08/02/2024 traZODone 50 MG tablet take 1 to 2 tablets by mouth at bedtime 08/01/2024 busPIRone 5 MG tablet Take 1 tablet by mouth Three times a day. Unknown clindamycin 300 MG capsule Take 1 capsule by mouth 4 times daily for 5 days. 20 capsule 0 cyclobenzaprine 10 MG tablet Take 1 tablet by mouth 3 times daily as needed for Muscle spasms. 15 tablet 0 Unknown Gabapentin 300 MG capsule Take 1 capsule by mouth Three times a day. Unknown hydroCODone-acetaminophen 5-325 MG tablet Take 1 tablet by mouth every 4 hours as needed for up to 3 days. 10 tablet 0 naproxen 500 MG tablet Take 1 tablet by mouth 2 times daily as needed. 20 tablet 0 Unknown Ondansetron 4 MG Tab Dispersible tablet Take 1 tablet by mouth every [address] on tongue 15 tablet 0 Unknown MV-Min-Fe Fum-FA-DHA ( 1 PO) Take by mouth. Unknown warfarin 10 MG tablet 1 tab PO QPM 21 tablet 0 Unknown Allergies Allergen Reactions Amoxicillin Contrast Dye [Ivp Dye, Iodine Containing] Penicillins Sulfa Antibiotics Review of Systems: Ten systems reviewed and found to be negative unless otherwise stated in the history and present illness. PHYSICAL EXAM: Patient Vitals for the past 8 hrs: BP Temp Temp src Pulse Resp SpO2 08/03/24 1143 101/52 97 F (36.1 C) Temporal 78 16 96 % 08/03/24 0822 115/57 97.4 F (36.3 C) Temporal 95 16 99 % General: Patient resting comfortably. Awake. No acute distress. HEENT: Normalcephalic, atraumatic. Pupils equal, round, reactive, to light and accomodation B/L. Bilateral nares patent without obvious drainage. Oral mucosa moist, pink, intact without ulcers or lesions. Neck: No JVD, no thyromegaly, no anterior or posterior lymphadenopathy. Cardiovascular: Regular rate and rhythm, without murmurs, rubs, or gallops. Respiratory: Breath sounds clear without wheezes, rales, or rhonchi throughout Abdomen: Soft, rounded, non-tender. Bowel sounds present x4 quadrants. Extremities: No edema, clubbing or cyanosis, pulses palpable 2+ distally. Skin: Warm, Dry, Intact. No obvious rashes or lesions noted. Neuro: Patient awake, alert, orientedx3. No focal defiects noted. M/S: No joint errythema or pain noted; no clubbing Diagnostics: Lab Results Component Value Date WBC 15.4 (H) 08/03/2024 HGB 12.7 08/03/2024 HCT 38.4 08/03/2024 PLATELET 316 08/03/2024 MCV 89.2 08/03/2024 @LASTMAGNESIUM(1D,2)@ Lab Results Component Value Date INR 0.94 08/01/2024 INR 0.94 07/25/2024 INR 0.95 07/23/2024 PT 12.7 08/01/2024 PT 12.6 07/25/2024 PT 12.8 07/23/2024 Lab Results Component Value Date CREATSERUM 0.87 08/03/2024 BUN 18 08/03/2024 SODIUM 140 08/03/2024 POTASSIUM 4.2 08/03/2024 CHLORIDE 111 (H) 08/03/2024 CO2 23 08/03/2024 Lab Results Component Value Date SPGRVTYUR >1.030 (H) 08/02/2024 GLUCOSEURINE NEGATIVE 08/02/2024 BILIRUBINURI NEGATIVE 08/02/2024 KETONESURINE NEGATIVE 08/02/2024 NITRITESURIN NEGATIVE 08/02/2024 LEUKOCESTUR NEGATIVE 08/02/2024 WBCURINE NEGATIVE 04/05/2024 RBCURINE NEGATIVE 04/05/2024 BACTERIAURIN NEGATIVE 04/05/2024 Full Code Impression and Plan: Principal Problem: Acute febrile illness: Received IV antibiotic in ED. continue IV fluids. Patient afebrile at this time Active Problems: Leukocytosis: WBC 25.4 on admission, improved today, we will repeat tomorrow. Left arm DVT: doppler positive for DVT on 07/23/24, continue Eliquis Gastroparesis: Following with specialist in [place]. I will add Reglan t.i.d. STEVE (generalized anxiety disorder): continue home medications GERD (gastroesophageal reflux disease): Reglan and Protonix PT OT SS for dc planning GI/DVT prophylaxis with protonix and eliquis 10 minutes spent of [facility] time including assessment, planning, and discussion with nursing staff and patient Please note Portions of this note utilized Pennant dictation software, please excuse any typographical or grammatical errors [facility], [facility] Medicine Associated attestation - Odette Rousseau MD - 08/03/2024 5:35 PM EDT I have personally seen and examined Becki Jackson and I agree with the physical exam as stated below. I have personally reviewed all available clinical data related to today's encounter including, but not limited to, radiology images and reports, laboratory data, and procedure reports. I have been fully involved in formulation of the assessment and plan. Pt is a 34 F admitted with malaise fevers at home, abdominal pain. Pt has a history of gastroparesis, unknown cause, worked up at OSH. Pt with decreased appetite. Pt complains of constipation, passing flatus. Per patient no BM for 2 days, normally goes 1-2 times a day. Patient Vitals for the past 8 hrs: BP Temp Temp src Pulse Resp SpO2 08/03/24 1553 114/64 98.2 F (36.8 C) Temporal 96 16 98 % 08/03/24 1143 101/52 97 F (36.1 C) Temporal 78 16 96 % On Exam today, patient AAO x 3 S1 S2 RRR no m/g/r CTAB no w/c/r Soft mild distention, general ttp,, +BS no rebound, no guarding No edema Assessment, plan, and Medical decision making: Acute febrile illness - likely viral syndrome, WBC decreasing, no evidence of bacterial infection, on cultures, blood culture NGT, no evidence of UTI, no evidence of pneumonia 2. History of gastroparesis - ordered reglan 3. Constipation - ordered senna/colace 1 tab po bid 4. Left arm DVT - stable - continue PO eliquis 5. Chronic GERD - stable - continue protonix and reglan 6. Morbid obesity due to excess calories BMI 41 - lifestyle modification, outpatient PCP follow up 7. DVT Prophylaxis - ordered SCDs, continue PO eliquis Pt is observation possible discharge in next 24 hours A total time of > 55 mins was spent today, reviewing the patients diagnostic tests, assessing and examining the patient, creating appropriate documentation; none of which was spent performing any separate billable procedures or ancillary services. This time is inclusive of time documented by [facility]. documented in this encounter [facility] 08-03-2024 Nurse Note Pt resting in bed, appears comfortable, rating her pain a 10/10, mid to right side of her abdomen. She is tolerating food at this time, denying any nausea. Dilaudid given per order. Pt ordering lunch. Will monitor. [facility] 08-03-2024 History of Present illness Narrative [facility] met with patient to discuss discharge plans. Patient states that she currently lives with her fiance in a single story home. She does not have advance directives, but would like a packet. She states that she has a history of anxiety, depression, bipolar disorder, and AHDH. She states that she does take medication and meets with a psychiatrist. She states that she is independent with all ADLs and does not use any DME. She states that she feels safe at home and has transportation. She states that she does sometimes have issues with affording food and would like resources. Patient states that she plans to return home at discharge. She has no concerns at this time. [facility] provided patient with AD packet as well as food resources. Discharge Plan: Patient will return home. 08/03/24 1343 Information Source Information Source patient Employment/Financial Employed? No Employment/Financial Concerns no Financial Concerns none Transportation Needs In the past 12 months, has lack of transportation kept you from medical appointments or from getting medications? no In the past 12 months, has lack of transportation kept you from meetings, work, or from getting things needed for daily living? No Financial Resource Strain How hard is it for you to pay for the very basics like food, housing, medical care, and heating? Somewhat Utilities In the past 12 months has the [employer], [employer], oil, or water [employer] threatened to shut off services in your home? No Housing Stability In the last 12 months, was there a time when you were not able to pay the mortgage or rent on time? N In the past 12 months, how many times have you moved where you were living? 1 At any time in the past 12 months, were you homeless or living in a detention (including now)? N Food Insecurity Within the past 12 months, you worried that your food would run out before you got the money to buy more. Never true Within the past 12 months, the food you bought just didn't last and you didn't have money to get more. Never true Intimate Partner Violence Within the last year, have you been afraid of your partner or ex-partner? No Within the last year, have you been humiliated or emotionally abused in other ways by your partner or ex-partner? No Within the last year, have you been kicked, hit, slapped, or otherwise physically hurt by your partner or ex-partner? No Within the last year, have you been raped or forced to have any kind of sexual activity by your partner or ex-partner? No Abuse Screen Do You Feel Unsafe at Home, Work or School? no Emotional/Psychological Mental Health Conditions/Symptoms anxiety disorder;depression;bipolar affective disorder;ADHD (attention deficit hyperactivity disorder) Previous Mental Health Treatment medication;psychiatrist Substance Use Past or current substance use by patient Denied documented in this encounter [facility] 08-03-2024 Nurse Note Assessment remains unchanged from previous. Call light within reach. [facility] 08-03-2024 Nurse Note Assessment remains unchanged from previous. Patient resting quietly upon entering, appears to be asleep. Reports pain of 8/10. Educated on next prn pain medication time, voices understanding. Declines further needs, call light within reach. [facility] 08-02-2024 Emergency department Note Report sheet sent up to 2nd floor med surg [facility] 08-02-2024 Emergency department Note Report sheet sent up to 2nd floor med surg Bed assigmment [id number] Continuation of Emergency Department Encounter I assumed the patient's care at the change of shift from Dr. Jorgensen. Please see their note for full history and physical exam. At the time of my assumption of care patient waiting on lab results and CT results. VITAL SIGNS DURING ED VISIT: Patient Vitals for the past 24 hrs: BP Temp Pulse Resp SpO2 Height 08/02/24 1958 109/80 -- 89 18 100 % -- 08/02/24 1854 139/79 -- 98 16 100 % -- 08/02/24 1800 116/58 -- 101 -- 100 % -- 08/02/24 1744 -- -- -- -- -- 1.651 m (5' 5) 08/02/24 1743 131/68 98.2 F (36.8 C) 114 18 98 % -- ED COURSE & MEDICAL DECISION MAKING Orders Placed This Encounter [facility] 1 - NASOPHARYNGEAL BLOOD CULTURE, PERIPHERAL 1ST SITE BLOOD CULTURE, PERIPHERAL 2ND SITE CT ABDOMEN/PELVIS WITHOUT CONTRAST XR CHEST PA AND LATERAL 2 VIEWS CBC, EDIF, PLATELET COMPREHENSIVE METABOLIC PANEL LIPASE LACTATE, BLOOD TSH YESENIA SMEAR dicyclomine (BENTYL) injection 20 mg cefTRIAXone (ROCEPHIN) 2 g in sodium chloride 0.9% (MB PLUS) 50 mL (total volume) IVPB Ondansetron 4mg/2ml (ZOFRAN) injection 4 mg diphenhydrAMINE (BENADRYL) injection 25 mg Metoclopramide (REGLAN) injection 5 mg Pantoprazole (PROTONIX) injection 40 mg URINALYSIS, MACRO Patient is awake, alert, and oriented to person, place, and time. She is speaking in full sentences. Her respiratory rate is 16 on my exam and is nonlabored. I did not hear the patient cough 1 time when I was in the room. Sclerae and conjunctiva clear and moist. Mouth has pink moist mucosa. There is a piercing in the tongue but it does not look erythematous or inflamed in any way. I do not see any lesions in the posterior pharynx she speaks in a normal voice. She handles secretions without difficulty. Her neck is supple. There is no palpable adenopathy or masses. Lungs do have good symmetrical breath sounds although she is not taking deep inspirations. I do not hear any crackles, wheezes, or rhonchi. Heart is regular on my exam. Abdomen is soft and nondistended. She is diffusely tender to palpation periumbilical, right lower quadrant, and right upper quadrant. Vega's sign is negative. There is no guarding, rebound, or percussion tenderness. She has a little tenderness left lower quadrant. No tenderness left upper quadrant. No flank or CVA tenderness. No appreciable hernia. No signs of trauma back. She has no erythema or warmth left upper arm or shoulder area where she is presently being treated for a DVT. I do not see any evidence of cellulitis, lymphangitis, or abscess. I do not see any rash. She moves all 4 extremities well. Good pulses in all extremities. She is hemodynamically stable and neurovascularly intact at this time. LABS Results for orders placed or performed during the hospital encounter of 08/02/24 [facility] 1 - NASOPHARYNGEAL Specimen: NASOPHARYNGEAL; Fluid/Swab Result Value Ref Range SARS COV 2 RNA, QL REAL TIME RT PCR NOT DETECTED NOT DETECTED NARRATIVE -1 This test was performed using isothermal ANUSHA for the qualitative detection of SARS-CoV-2 nucleic acid. CBC, EDIF, PLATELET Result Value Ref Range WBC (WHITE BLOOD COUNT) 25.4 (HH) 3.6 - 11.0 10*3/uL RBC 4.37 4.0 - 5.4 10*6/uL HEMOGLOBIN (HGB) 12.8 12.0 - 16.0 G/DL HEMATOCRIT (HCT) 38.6 36.0 - 48.0 % MEAN CELL VOLUME 88.4 80.0 - 100.0 FL Mean Cell HGB 29.2 26.0 - 35.0 PG MEAN CELL HGB CONCENTRATION 33.1 27.0 - 37.0 G/DL RBC DISTRIBUTION 14.8 (H) 11.5 - 14.5 % PLATELET COUNT 338 130 - 400 10*3/uL MEAN PLATELET VOLUME 7.0 (L) 7.4 - 11.0 FL NEUTROPHILS 86 (H) 37.0 - 75.0 % BAND NEUTROPHIL % 3 (H) 0.0 - 2.0 % LYMPHOCYTE 7 (L) 20.0 - 55.0 % MONOCYTE % 4 0.0 - 10.0 % EOSINOPHIL % 0 0.0 - 11.0 % BASOPHIL % 0 0.0 - 2.0 % MORPHOLOGY 1+ DIFFERENTIAL TYPE MANUAL DIFF % PLATELET COMMENT ADEQUATE COMPREHENSIVE METABOLIC PANEL Result Value Ref Range Glucose 125 (H) 70 - 100 MG/DL BUN 17 7 - 20 MG/DL CREATININE SERUM 0.80 0.70 - 1.20 MG/DL SODIUM 138 137 - 145 MMOL/L POTASSIUM 3.6 3.5 - 5.1 MMOL/L CHLORIDE 109 (H) 98 - 107 MMOL/L CALCIUM 9.4 8.4 - 10.2 MG/DL PROTEIN, TOTAL 6.8 6.3 - 8.2 GM/DL Albumin 3.9 3.5 - 5.0 G/dl BILIRUBIN, TOTAL 0.4 0.2 - 1.3 MG/DL AST 21 14 - 36 IU/L ALKALINE PHOSPHATASE 80 38 - 126 IU/L CARBON DIOXIDE (CO2) 23 22 - 30 MMOL/L A/G Ratio 1.3 RATIO ALT 24 <35 IU/L ESTIMATED GFR, NON AMER 88 ml/min/1.73sq.m ESTIMATED GFR, 106 ml/min/1.73sq.m GFR COMMENT Average GFR for 30-39 years old = 107. LIPASE Result Value Ref Range LIPASE 61 23 - 300 U/L LACTATE, BLOOD Result Value Ref Range LACTATE 1.3 0.7 - 2.0 mmol/L TSH Result Value Ref Range TSH 0.150 (L) 0.465 - 4.680 uIU/ML YESENIA SMEAR Result Value Ref Range BLOOD SMEAR REVIEW TESTING PERFORMED BY PATHOLOGIST URINALYSIS, MACRO Result Value Ref Range COLOR, URINE YELLOW YELLOW APPEARANCE, URINE CLEAR CLEAR Specific [place], Urine >1.030 (H) 1.010 - 1.025 PH URINE 6.0 5.0 - 7.0 Urine Protein NEGATIVE NEGATIVE mg/dl GLUCOSE, URINE NEGATIVE NEGATIVE mg/dl KETONES, URINE NEGATIVE NEGATIVE mg/dl BILIRUBIN, URINE NEGATIVE NEGATIVE BLOOD, URINE DIPSTICK NEGATIVE NEGATIVE NITRITES, URINE NEGATIVE NEGATIVE UROBILINOGEN, URINE 1.0 0.2 - 1.0 E.U./dL LEUKOCYTE ESTERASE, URINE NEGATIVE NEGATIVE IMAGING: CT ABDOMEN/PELVIS WITHOUT CONTRAST Final Result IMPRESSION: No acute findings in the abdomen or pelvis. XR CHEST PA AND LATERAL 2 VIEWS (Results Pending) CONSULTATIONS: PROCEDURES: CLINICAL IMPRESSIONS: 1. Febrile illness, acute 2. Bandemia 3. Lower abdominal pain 4. History of DVT (deep vein thrombosis) 5. Anticoagulated DISPOSITION: Patient has marked leukocytosis with left shift. Lactic acid is not elevated. There is no obvious source of infection. Urinalysis is clean. There is no acute findings on the CT scan of the abdomen and pelvis. I did add blood cultures and a chest x-ray to the patient's workup. At this time I spoke with Dr. Rousseau from medicine. The patient be placed in the hospital on observation status for further evaluation and treatment as needed. I discussed this plan with the patient. I did treat her with Rocephin 2 g IV after blood cultures obtained. She is treated with Benadryl, Reglan, and Zofran at this time as well as a dose of Protonix. No follow-ups on file. New Prescriptions No medications on file Discontinued Medications No medications on file An after visit summary was printed and given to the patient with the above information. Portions of this chart were created using [employer] electronic dictation. Please excuse any typographical or grammatical errors contained herein. Meño Diaz MD 08/02/242039 Dr. Diaz speaking with Dr. Rousseau for admission at this time Report to Fannie Lau RN Emergency Department Report [facility] EMERGENCY DEPARTMENT Service Date:.08/02/24 PCP: María Hernandez Chief Complaint: Chief Complaint Patient presents with Fever Pt reports she developed a fever 1 hr ago and abdominal pain 1 hr ago. Report she was dx yesterday with DVT in left arm HPI Becki Jackson is a 34 y.o. female presents to the ED with chief complaint of feeling flushed. Patient presents to emergency department states she feels hot. She states she also has some generalized abdominal pain. She denies any vomiting, constipation, diarrhea, frequency, urgency. She states her symptoms started 1 hour prior to arrival. She denies any headache or neck stiffness. She denies runny nose or sore throat. She denies any travel or trauma. Review of Systems: Review of Systems Review of Systems Constitutional: Negative for documented fever, chills Skin: Positive for flushing negative for rash HENT: Negative for sore throat, earache, nosebleeds Eyes: Negative for yellowing of the eyes Cardiovascular: Negative for chest pain Gastrointestinal: Negative for vomiting, nausea, positive for abdominal pain Respiratory: Negative for cough wheeze or shortness of breath Genitourinary: Negative for frequency urgency or dysuria Musculoskeletal: Negative for fall or injury Neurological: Negative for headache, weakness, syncope Past Medical History: Past Medical History: Diagnosis Date Acute liver failure ADHD Anxiety Bipolar 1 disorder Depression Gastroparesis Gastroparesis Hereditary vascular fragility Kidney lesion Past Surgical History: Past Surgical History: Procedure Laterality Date KNEE SURGERY bilateral knees TONSILLECTOMY ADENOIDECTOMY Allergies: Allergies Allergen Reactions Amoxicillin Contrast Dye [Ivp Dye, Iodine Containing] Penicillins Sulfa Antibiotics Medications: Patient's Medications New Prescriptions No medications on file Previous Medications APIXABAN 5 MG TABLET Take 2 tablets (10 mg) by mouth twice daily for 7 days, then 1 tablet (5 mg) twice daily. BUSPIRONE 5 MG TABLET Take 1 tablet by mouth Three times a day. CLINDAMYCIN 300 MG CAPSULE Take 1 capsule by mouth 4 times daily for 5 days. CYCLOBENZAPRINE 10 MG TABLET Take 1 tablet by mouth 3 times daily as needed for Muscle spasms. GABAPENTIN 300 MG CAPSULE Take 1 capsule by mouth Three times a day. HYDROCODONE-ACETAMINOPHEN 5-325 MG TABLET Take 1 tablet by mouth every 4 hours as needed for up to 3 days. NAPROXEN 500 MG TABLET Take 1 tablet by mouth 2 times daily as needed. ONDANSETRON 4 MG TAB DISPERSIBLE TABLET Take 1 tablet by mouth every [address] on tongue MV-MIN-FE FUM-FA-DHA ( 1 PO) Take by mouth. TRAZODONE 50 MG TABLET take 1 to 2 tablets by mouth at bedtime WARFARIN 10 MG TABLET 1 tab PO QPM Modified Medications No medications on file Discontinued Medications No medications on file Family History: History reviewed. No pertinent family history. Social History: Social History Socioeconomic History Marital status: Spouse name: Not on file Number of children: Not on file Years of education: Not on file Highest education level: Not on file Occupational History Not on file Tobacco Use Smoking status: Former Current packs/day: 0.25 Types: Cigarettes Smokeless tobacco: Former Types: Chew Vaping Use Vaping status: Every Day Substance and Sexual Activity Alcohol use: Not Currently Drug use: Never Sexual activity: Not on file Other Topics Concern Not on file Social History Narrative Not on file Social Determinants of Health Financial Resource Strain: Not on file Food Insecurity: Not on file Transportation Needs: Not on file Physical Activity: Not on file Stress: Not on file Social Connections: Not on file Intimate Partner Violence: Not At Risk (05/05/2020) Humiliation, Afraid, Rape, and Kick questionnaire Fear of Current or Ex-Partner: No Emotionally Abused: No Physically Abused: No Sexually Abused: No Housing Stability: Not on file Physical Exam: Physical Exam General: Well-developed well-nourished female HENT: Head is atraumatic. Face is symmetric. Mucous membranes are hydrated Eyes: Pupils are equal. Sclera is anicteric Skin: Warm and dry. No rash. No open sores. No petechiae Abdomen: Soft. There is no distention no rebound. Good bowel sounds heard in all 4 quadrants Respiratory: Clear in all [place]. No rhonchi no wheezing Heart: Heart tones are regular. Capillary refill is brisk Neurologic: Awake, alert, oriented, answering questions appropriately. Moving all extremities well Lymphatic: No lymphedema Musculoskeletal: No trauma no fracture or deformity Psychiatric: Anxious Vital Signs During ED Visit Patient Vitals for the past 24 hrs: BP Temp Pulse Resp SpO2 Height 08/02/24 1744 -- -- -- -- -- 1.651 m (5' 5) 08/02/24 1743 131/68 98.2 F (36.8 C) 114 18 98 % -- Orders/Results: No results found for this visit on 08/02/24. Radiographic Imaging No orders to display Procedures: Procedures Moderate Sedation Procedure: No ED Summary/MDM Patient's vital signs have been reviewed. She was not febrile. At this time. Lab work has been ordered. COVID test has been ordered. I have endorsed the case at shift change to the oncoming physician. Please refer to his dictation for final disposition, diagnostic studies and final disposition Clinical Impression: Malaise Abdominal pain No follow-ups on file. New Prescriptions No medications on file Discontinued Medications No medications on file An After Visit Summary was printed and given to the patient with above information. . Meron Jorgensen MD 08/02/24 181 documented in this encounter [facility] 08-02-2024 Emergency department Note Bed assigmment 0456 [facility] 08-02-2024 Physician Emergency department Note Continuation of Emergency Department Encounter I assumed the patient's care at the change of shift from Dr. Jorgensen. Please see their note for full history and physical exam. At the time of my assumption of care patient waiting on lab results and CT results. VITAL SIGNS DURING ED VISIT: Patient Vitals for the past 24 hrs: BP Temp Pulse Resp SpO2 Height 08/02/24 1958 109/80 -- 89 18 100 % -- 08/02/24 1854 139/79 -- 98 16 100 % -- 08/02/24 1800 116/58 -- 101 -- 100 % -- 08/02/24 1744 -- -- -- -- -- 1.651 m (5' 5) 08/02/24 1743 131/68 98.2 F (36.8 C) 114 18 98 % -- ED COURSE & MEDICAL DECISION MAKING Orders Placed This Encounter [facility] 1 - NASOPHARYNGEAL BLOOD CULTURE, PERIPHERAL 1ST SITE BLOOD CULTURE, PERIPHERAL 2ND SITE CT ABDOMEN/PELVIS WITHOUT CONTRAST XR CHEST PA AND LATERAL 2 VIEWS CBC, EDIF, PLATELET COMPREHENSIVE METABOLIC PANEL LIPASE LACTATE, BLOOD TSH YESENIA SMEAR dicyclomine (BENTYL) injection 20 mg cefTRIAXone (ROCEPHIN) 2 g in sodium chloride 0.9% (MB PLUS) 50 mL (total volume) IVPB Ondansetron 4mg/2ml (ZOFRAN) injection 4 mg diphenhydrAMINE (BENADRYL) injection 25 mg Metoclopramide (REGLAN) injection 5 mg Pantoprazole (PROTONIX) injection 40 mg URINALYSIS, MACRO Patient is awake, alert, and oriented to person, place, and time. She is speaking in full sentences. Her respiratory rate is 16 on my exam and is nonlabored. I did not hear the patient cough 1 time when I was in the room. Sclerae and conjunctiva clear and moist. Mouth has pink moist mucosa. There is a piercing in the tongue but it does not look erythematous or inflamed in any way. I do not see any lesions in the posterior pharynx she speaks in a normal voice. She handles secretions without difficulty. Her neck is supple. There is no palpable adenopathy or masses. Lungs do have good symmetrical breath sounds although she is not taking deep inspirations. I do not hear any crackles, wheezes, or rhonchi. Heart is regular on my exam. Abdomen is soft and nondistended. She is diffusely tender to palpation periumbilical, right lower quadrant, and right upper quadrant. Vega's sign is negative. There is no guarding, rebound, or percussion tenderness. She has a little tenderness left lower quadrant. No tenderness left upper quadrant. No flank or CVA tenderness. No appreciable hernia. No signs of trauma back. She has no erythema or warmth left upper arm or shoulder area where she is presently being treated for a DVT. I do not see any evidence of cellulitis, lymphangitis, or abscess. I do not see any rash. She moves all 4 extremities well. Good pulses in all extremities. She is hemodynamically stable and neurovascularly intact at this time. LABS Results for orders placed or performed during the hospital encounter of 08/02/24 [facility] 1 - NASOPHARYNGEAL Specimen: NASOPHARYNGEAL; Fluid/Swab Result Value Ref Range SARS COV 2 RNA, QL REAL TIME RT PCR NOT DETECTED NOT DETECTED NARRATIVE -1 This test was performed using isothermal ANUSHA for the qualitative detection of SARS-CoV-2 nucleic acid. CBC, EDIF, PLATELET Result Value Ref Range WBC (WHITE BLOOD COUNT) 25.4 (HH) 3.6 - 11.0 10*3/uL RBC 4.37 4.0 - 5.4 10*6/uL HEMOGLOBIN (HGB) 12.8 12.0 - 16.0 G/DL HEMATOCRIT (HCT) 38.6 36.0 - 48.0 % MEAN CELL VOLUME 88.4 80.0 - 100.0 FL Mean Cell HGB 29.2 26.0 - 35.0 PG MEAN CELL HGB CONCENTRATION 33.1 27.0 - 37.0 G/DL RBC DISTRIBUTION 14.8 (H) 11.5 - 14.5 % PLATELET COUNT 338 130 - 400 10*3/uL MEAN PLATELET VOLUME 7.0 (L) 7.4 - 11.0 FL NEUTROPHILS 86 (H) 37.0 - 75.0 % BAND NEUTROPHIL % 3 (H) 0.0 - 2.0 % LYMPHOCYTE 7 (L) 20.0 - 55.0 % MONOCYTE % 4 0.0 - 10.0 % EOSINOPHIL % 0 0.0 - 11.0 % BASOPHIL % 0 0.0 - 2.0 % MORPHOLOGY 1+ DIFFERENTIAL TYPE MANUAL DIFF % PLATELET COMMENT ADEQUATE COMPREHENSIVE METABOLIC PANEL Result Value Ref Range Glucose 125 (H) 70 - 100 MG/DL BUN 17 7 - 20 MG/DL CREATININE SERUM 0.80 0.70 - 1.20 MG/DL SODIUM 138 137 - 145 MMOL/L POTASSIUM 3.6 3.5 - 5.1 MMOL/L CHLORIDE 109 (H) 98 - 107 MMOL/L CALCIUM 9.4 8.4 - 10.2 MG/DL PROTEIN, TOTAL 6.8 6.3 - 8.2 GM/DL Albumin 3.9 3.5 - 5.0 G/dl BILIRUBIN, TOTAL 0.4 0.2 - 1.3 MG/DL AST 21 14 - 36 IU/L ALKALINE PHOSPHATASE 80 38 - 126 IU/L CARBON DIOXIDE (CO2) 23 22 - 30 MMOL/L A/G Ratio 1.3 RATIO ALT 24 <35 IU/L ESTIMATED GFR, NON AMER 88 ml/min/1.73sq.m ESTIMATED GFR, 106 ml/min/1.73sq.m GFR COMMENT Average GFR for 30-39 years old = 107. LIPASE Result Value Ref Range LIPASE 61 23 - 300 U/L LACTATE, BLOOD Result Value Ref Range LACTATE 1.3 0.7 - 2.0 mmol/L TSH Result Value Ref Range TSH 0.150 (L) 0.465 - 4.680 uIU/ML YESENIA SMEAR Result Value Ref Range BLOOD SMEAR REVIEW TESTING PERFORMED BY PATHOLOGIST URINALYSIS, MACRO Result Value Ref Range COLOR, URINE YELLOW YELLOW APPEARANCE, URINE CLEAR CLEAR Specific [place], Urine >1.030 (H) 1.010 - 1.025 PH URINE 6.0 5.0 - 7.0 Urine Protein NEGATIVE NEGATIVE mg/dl GLUCOSE, URINE NEGATIVE NEGATIVE mg/dl KETONES, URINE NEGATIVE NEGATIVE mg/dl BILIRUBIN, URINE NEGATIVE NEGATIVE BLOOD, URINE DIPSTICK NEGATIVE NEGATIVE NITRITES, URINE NEGATIVE NEGATIVE UROBILINOGEN, URINE 1.0 0.2 - 1.0 E.U./dL LEUKOCYTE ESTERASE, URINE NEGATIVE NEGATIVE IMAGING: CT ABDOMEN/PELVIS WITHOUT CONTRAST Final Result IMPRESSION: No acute findings in the abdomen or pelvis. XR CHEST PA AND LATERAL 2 VIEWS (Results Pending) CONSULTATIONS: PROCEDURES: CLINICAL IMPRESSIONS: 1. Febrile illness, acute 2. Bandemia 3. Lower abdominal pain 4. History of DVT (deep vein thrombosis) 5. Anticoagulated DISPOSITION: Patient has marked leukocytosis with left shift. Lactic acid is not elevated. There is no obvious source of infection. Urinalysis is clean. There is no acute findings on the CT scan of the abdomen and pelvis. I did add blood cultures and a chest x-ray to the patient's workup. At this time I spoke with Dr. Rousseau from medicine. The patient be placed in the hospital on observation status for further evaluation and treatment as needed. I discussed this plan with the patient. I did treat her with Rocephin 2 g IV after blood cultures obtained. She is treated with Benadryl, Reglan, and Zofran at this time as well as a dose of Protonix. No follow-ups on file. New Prescriptions No medications on file Discontinued Medications No medications on file An after visit summary was printed and given to the patient with the above information. Portions of this chart were created using [employer] electronic dictation. Please excuse any typographical or grammatical errors contained herein. Meño Diaz MD 08/02/242039 [facility] 08-02-[address] Diaz speaking with Dr. Rousseau for admission at this time [facility] 08-02-2024 Emergency department Note Report to Fannie Lau RN [facility] 08-02-2024 Physician Emergency department Note Emergency Department Report [facility] EMERGENCY DEPARTMENT Service Date:.08/02/24 PCP: María Hernandez Chief Complaint: Chief Complaint Patient presents with Fever Pt reports she developed a fever 1 hr ago and abdominal pain 1 hr ago. Report she was dx yesterday with DVT in left arm HPI Becki Jackson is a 34 y.o. female presents to the ED with chief complaint of feeling flushed. Patient presents to emergency department states she feels hot. She states she also has some generalized abdominal pain. She denies any vomiting, constipation, diarrhea, frequency, urgency. She states her symptoms started 1 hour prior to arrival. She denies any headache or neck stiffness. She denies runny nose or sore throat. She denies any travel or trauma. Review of Systems: Review of Systems Review of Systems Constitutional: Negative for documented fever, chills Skin: Positive for flushing negative for rash HENT: Negative for sore throat, earache, nosebleeds Eyes: Negative for yellowing of the eyes Cardiovascular: Negative for chest pain Gastrointestinal: Negative for vomiting, nausea, positive for abdominal pain Respiratory: Negative for cough wheeze or shortness of breath Genitourinary: Negative for frequency urgency or dysuria Musculoskeletal: Negative for fall or injury Neurological: Negative for headache, weakness, syncope Past Medical History: Past Medical History: Diagnosis Date Acute liver failure ADHD Anxiety Bipolar 1 disorder Depression Gastroparesis Gastroparesis Hereditary vascular fragility Kidney lesion Past Surgical History: Past Surgical History: Procedure Laterality Date KNEE SURGERY bilateral knees TONSILLECTOMY ADENOIDECTOMY Allergies: Allergies Allergen Reactions Amoxicillin Contrast Dye [Ivp Dye, Iodine Containing] Penicillins Sulfa Antibiotics Medications: Patient's Medications New Prescriptions No medications on file Previous Medications APIXABAN 5 MG TABLET Take 2 tablets (10 mg) by mouth twice daily for 7 days, then 1 tablet (5 mg) twice daily. BUSPIRONE 5 MG TABLET Take 1 tablet by mouth Three times a day. CLINDAMYCIN 300 MG CAPSULE Take 1 capsule by mouth 4 times daily for 5 days. CYCLOBENZAPRINE 10 MG TABLET Take 1 tablet by mouth 3 times daily as needed for Muscle spasms. GABAPENTIN 300 MG CAPSULE Take 1 capsule by mouth Three times a day. HYDROCODONE-ACETAMINOPHEN 5-325 MG TABLET Take 1 tablet by mouth every 4 hours as needed for up to 3 days. NAPROXEN 500 MG TABLET Take 1 tablet by mouth 2 times daily as needed. ONDANSETRON 4 MG TAB DISPERSIBLE TABLET Take 1 tablet by mouth every [address] on tongue MV-MIN-FE FUM-FA-DHA ( 1 PO) Take by mouth. TRAZODONE 50 MG TABLET take 1 to 2 tablets by mouth at bedtime WARFARIN 10 MG TABLET 1 tab PO QPM Modified Medications No medications on file Discontinued Medications No medications on file Family History: History reviewed. No pertinent family history. Social History: Social History Socioeconomic History Marital status: Spouse name: Not on file Number of children: Not on file Years of education: Not on file Highest education level: Not on file Occupational History Not on file Tobacco Use Smoking status: Former Current packs/day: 0.25 Types: Cigarettes Smokeless tobacco: Former Types: Chew Vaping Use Vaping status: Every Day Substance and Sexual Activity Alcohol use: Not Currently Drug use: Never Sexual activity: Not on file Other Topics Concern Not on file Social History Narrative Not on file Social Determinants of Health Financial Resource Strain: Not on file Food Insecurity: Not on file Transportation Needs: Not on file Physical Activity: Not on file Stress: Not on file Social Connections: Not on file Intimate Partner Violence: Not At Risk (05/05/2020) Humiliation, Afraid, Rape, and Kick questionnaire Fear of Current or Ex-Partner: No Emotionally Abused: No Physically Abused: No Sexually Abused: No Housing Stability: Not on file Physical Exam: Physical Exam General: Well-developed well-nourished female HENT: Head is atraumatic. Face is symmetric. Mucous membranes are hydrated Eyes: Pupils are equal. Sclera is anicteric Skin: Warm and dry. No rash. No open sores. No petechiae Abdomen: Soft. There is no distention no rebound. Good bowel sounds heard in all 4 quadrants Respiratory: Clear in all [place]. No rhonchi no wheezing Heart: Heart tones are regular. Capillary refill is brisk Neurologic: Awake, alert, oriented, answering questions appropriately. Moving all extremities well Lymphatic: No lymphedema Musculoskeletal: No trauma no fracture or deformity Psychiatric: Anxious Vital Signs During ED Visit Patient Vitals for the past 24 hrs: BP Temp Pulse Resp SpO2 Height 08/02/24 1744 -- -- -- -- -- 1.651 m (5' 5) 08/02/24 1743 131/68 98.2 F (36.8 C) 114 18 98 % -- Orders/Results: No results found for this visit on 08/02/24. Radiographic Imaging No orders to display Procedures: Procedures Moderate Sedation Procedure: No ED Summary/MDM Patient's vital signs have been reviewed. She was not febrile. At this time. Lab work has been ordered. COVID test has been ordered. I have endorsed the case at shift change to the oncoming physician. Please refer to his dictation for final disposition, diagnostic studies and final disposition Clinical Impression: Malaise Abdominal pain No follow-ups on file. New Prescriptions No medications on file Discontinued Medications No medications on file An After Visit Summary was printed and given to the patient with above information. . Meron Jorgensen MD 08/02/24 181 [facility] 08-01-2024 Emergency department Note Patient verbalized understanding of dc and follow up orders as well as medication administration. Iv discontinued catheter intact, no signs of infiltration or adverse effects. Patient ambulated, steady gait and stable vital signs, and walked out of ed, no further questions, nad. [facility] 08-01-2024 Emergency department Note Patient verbalized understanding of dc and follow up orders as well as medication administration. Iv discontinued catheter intact, no signs of infiltration or adverse effects. Patient ambulated, steady gait and stable vital signs, and walked out of ed, no further questions, nad. Pt places call light on at this time and states pain 10/10 and shooting down left arm. Dr. Witt made aware at this time. Dr. Witt at bedside DEPARTMENT OF EMERGENCY MEDICINE CHIEF COMPLAINT Chest Pain (Pt. Arrives with chest pain since this am. Pt. Currently has a DVT in left arm, and has SOB.) FREDDIE Jackson is a 34 y.o. female who presents with chest pain and shortness of breath. The patient was diagnosed with a DVT in her left arm just a couple of days ago and was started on Eliquis. Today she developed pleuritic left-sided chest pain and shortness of breath. No fevers or chills. No cough. No vomiting. She has not missed any doses of her Eliquis. The DVT was believed to have developed secondary to phlebitis from an IV per the patient. REVIEW OF SYSTEMS Review of Systems Constitutional: No fevers, no chills Eyes: No vision change, no drainage ENT: No ear pain, no sore throat Cardiovascular: Positive chest pain, no edema Respiratory: Positive shortness of breath, no cough Gastrointestinal: No vomiting, no diarrhea Genitourinary: No dysuria, no frequency Musculoskeletal: No joint pain, no joint swelling Integumentary: No rash, no itching Neurologic: No headache, no confusion Psychiatric: No anxiety, no depression PAST MEDICAL HISTORY Past Medical History: Diagnosis Date Acute liver failure ADHD Anxiety Bipolar 1 disorder Depression Gastroparesis Hereditary vascular fragility Kidney lesion SURGICAL HISTORY Past Surgical History: Procedure Laterality Date KNEE SURGERY bilateral knees TONSILLECTOMY ADENOIDECTOMY CURRENT MEDICATIONS No current facility-administered medications for this encounter. Current Outpatient Medications Medication Sig Dispense Refill apixaban 5 MG tablet Take 2 tablets (10 mg) by mouth twice daily for 7 days, then 1 tablet (5 mg) twice daily. 74 tablet 0 clindamycin 300 MG capsule Take 1 capsule by mouth 4 times daily for 5 days. 20 capsule 0 naproxen 500 MG tablet Take 1 tablet by mouth 2 times daily as needed. 20 tablet 0 traZODone 50 MG tablet take 1 to 2 tablets by mouth at bedtime busPIRone 5 MG tablet Take 1 tablet by mouth Three times a day. cyclobenzaprine 10 MG tablet Take 1 tablet by mouth 3 times daily as needed for Muscle spasms. 15 tablet 0 Gabapentin 300 MG capsule Take 1 capsule by mouth Three times a day. hydroCODone-acetaminophen 5-325 MG tablet Take 1 tablet by mouth every 4 hours as needed for up to 3 days. 10 tablet 0 Ondansetron 4 MG Tab Dispersible tablet Take 1 tablet by mouth every [address] on tongue 15 tablet 0 MV-Min-Fe Fum-FA-DHA ( 1 PO) Take by mouth. warfarin 10 MG tablet 1 tab PO QPM 21 tablet 0 ALLERGIES Allergies Allergen Reactions Amoxicillin Contrast Dye [Ivp Dye, Iodine Containing] Penicillins Sulfa Antibiotics FAMILY HISTORY No family history on file. SOCIAL HISTORY Social History Socioeconomic History Marital status: Spouse name: Not on file Number of children: Not on file Years of education: Not on file Highest education level: Not on file Occupational History Not on file Tobacco Use Smoking status: Former Current packs/day: 0.25 Types: Cigarettes Smokeless tobacco: Former Types: Chew Vaping Use Vaping status: Every Day Substance and Sexual Activity Alcohol use: Not Currently Drug use: Never Sexual activity: Not on file Other Topics Concern Not on file Social History Narrative Not on file Social Determinants of Health Financial Resource Strain: Not on file Food Insecurity: Not on file Transportation Needs: Not on file Physical Activity: Not on file Stress: Not on file Social Connections: Not on file Intimate Partner Violence: Not At Risk (05/05/2020) Humiliation, Afraid, Rape, and Kick questionnaire Fear of Current or Ex-Partner: No Emotionally Abused: No Physically Abused: No Sexually Abused: No Housing Stability: Not on file PHYSICAL EXAM BP 134/74 Pulse 114 Temp 99.2 F (37.3 C) (Oral) Resp 19 Ht 1.651 m (5' 5) Wt 112.5 kg (248 lb) SpO2 100% BMI 41.27 kg/m Smoking Status Former Physical Exam The patient is well-developed, well-nourished, and in no acute distress. Head is atraumatic and normocephalic. Pupils are equal and reactive. Face is symmetric. Mucous membranes are moist. Neck is supple. Heart is tachycardic but regular. Lungs are clear to auscultation. Patient has mild tachypnea. Abdomen is soft, nontender, nondistended. Skin is warm and dry. Extremities are warm and well perfused and without acute deformity. Neurologically, the patient is awake, alert, and without acute deficit. Psychiatrically, the patient is calm and cooperative. ED COURSE & MEDICAL DECISION MAKING EKG interpretation: Sinus rhythm at 105 beats per minute. Normal GA interval. Normal QRS duration. Normal axis. No acute ST elevations. No left bundle-branch block. 7:27 p.m.-patient has symptoms consistent with a PE. CT PE study has been ordered. Laboratory testing, including BNP to evaluate for evidence of heart strain, have been ordered. Labs and CT scan are unremarkable. No evidence of PE. Patient is stable for discharge home and will continue her Eliquis. Anil Witt MD 08/01/242203 documented in this encounter [facility] 08-01-2024 Emergency department Note Pt places call light on at this time and states pain 10/10 and shooting down left arm. Dr. Witt made aware at this time. [facility] 08-01-[address] Witt at bedside [facility] 08-01-2024 Physician Emergency department Note DEPARTMENT OF EMERGENCY MEDICINE CHIEF COMPLAINT Chest Pain (Pt. Arrives with chest pain since this am. Pt. Currently has a DVT in left arm, and has SOB.) FREDDIE Jackson is a 34 y.o. female who presents with chest pain and shortness of breath. The patient was diagnosed with a DVT in her left arm just a couple of days ago and was started on Eliquis. Today she developed pleuritic left-sided chest pain and shortness of breath. No fevers or chills. No cough. No vomiting. She has not missed any doses of her Eliquis. The DVT was believed to have developed secondary to phlebitis from an IV per the patient. REVIEW OF SYSTEMS Review of Systems Constitutional: No fevers, no chills Eyes: No vision change, no drainage ENT: No ear pain, no sore throat Cardiovascular: Positive chest pain, no edema Respiratory: Positive shortness of breath, no cough Gastrointestinal: No vomiting, no diarrhea Genitourinary: No dysuria, no frequency Musculoskeletal: No joint pain, no joint swelling Integumentary: No rash, no itching Neurologic: No headache, no confusion Psychiatric: No anxiety, no depression PAST MEDICAL HISTORY Past Medical History: Diagnosis Date Acute liver failure ADHD Anxiety Bipolar 1 disorder Depression Gastroparesis Hereditary vascular fragility Kidney lesion SURGICAL HISTORY Past Surgical History: Procedure Laterality Date KNEE SURGERY bilateral knees TONSILLECTOMY ADENOIDECTOMY CURRENT MEDICATIONS No current facility-administered medications for this encounter. Current Outpatient Medications Medication Sig Dispense Refill apixaban 5 MG tablet Take 2 tablets (10 mg) by mouth twice daily for 7 days, then 1 tablet (5 mg) twice daily. 74 tablet 0 clindamycin 300 MG capsule Take 1 capsule by mouth 4 times daily for 5 days. 20 capsule 0 naproxen 500 MG tablet Take 1 tablet by mouth 2 times daily as needed. 20 tablet 0 traZODone 50 MG tablet take 1 to 2 tablets by mouth at bedtime busPIRone 5 MG tablet Take 1 tablet by mouth Three times a day. cyclobenzaprine 10 MG tablet Take 1 tablet by mouth 3 times daily as needed for Muscle spasms. 15 tablet 0 Gabapentin 300 MG capsule Take 1 capsule by mouth Three times a day. hydroCODone-acetaminophen 5-325 MG tablet Take 1 tablet by mouth every 4 hours as needed for up to 3 days. 10 tablet 0 Ondansetron 4 MG Tab Dispersible tablet Take 1 tablet by mouth every [address] on tongue 15 tablet 0 MV-Min-Fe Fum-FA-DHA ( 1 PO) Take by mouth. warfarin 10 MG tablet 1 tab PO QPM 21 tablet 0 ALLERGIES Allergies Allergen Reactions Amoxicillin Contrast Dye [Ivp Dye, Iodine Containing] Penicillins Sulfa Antibiotics FAMILY HISTORY No family history on file. SOCIAL HISTORY Social History Socioeconomic History Marital status: Spouse name: Not on file Number of children: Not on file Years of education: Not on file Highest education level: Not on file Occupational History Not on file Tobacco Use Smoking status: Former Current packs/day: 0.25 Types: Cigarettes Smokeless tobacco: Former Types: Chew Vaping Use Vaping status: Every Day Substance and Sexual Activity Alcohol use: Not Currently Drug use: Never Sexual activity: Not on file Other Topics Concern Not on file Social History Narrative Not on file Social Determinants of Health Financial Resource Strain: Not on file Food Insecurity: Not on file Transportation Needs: Not on file Physical Activity: Not on file Stress: Not on file Social Connections: Not on file Intimate Partner Violence: Not At Risk (05/05/2020) Humiliation, Afraid, Rape, and Kick questionnaire Fear of Current or Ex-Partner: No Emotionally Abused: No Physically Abused: No Sexually Abused: No Housing Stability: Not on file PHYSICAL EXAM BP 134/74 Pulse 114 Temp 99.2 F (37.3 C) (Oral) Resp 19 Ht 1.651 m (5' 5) Wt 112.5 kg (248 lb) SpO2 100% BMI 41.27 kg/m Smoking Status Former Physical Exam The patient is well-developed, well-nourished, and in no acute distress. Head is atraumatic and normocephalic. Pupils are equal and reactive. Face is symmetric. Mucous membranes are moist. Neck is supple. Heart is tachycardic but regular. Lungs are clear to auscultation. Patient has mild tachypnea. Abdomen is soft, nontender, nondistended. Skin is warm and dry. Extremities are warm and well perfused and without acute deformity. Neurologically, the patient is awake, alert, and without acute deficit. Psychiatrically, the patient is calm and cooperative. ED COURSE & MEDICAL DECISION MAKING EKG interpretation: Sinus rhythm at 105 beats per minute. Normal GA interval. Normal QRS duration. Normal axis. No acute ST elevations. No left bundle-branch block. 7:27 p.m.-patient has symptoms consistent with a PE. CT PE study has been ordered. Laboratory testing, including BNP to evaluate for evidence of heart strain, have been ordered. Labs and CT scan are unremarkable. No evidence of PE. Patient is stable for discharge home and will continue her Eliquis. Anil Witt MD 08/01/242203 [facility] 07-29-2024 Physician Emergency department Note Images from the original note were not included. Emergency Department Report [facility] EMERGENCY DEPARTMENT Service Date:.07/29/24 PCP: María Hernandez Chief Complaint: Chief Complaint Patient presents with Arm Pain To ED with c/o right arm pain that radiates to chest. Patient states I have a blood clot in my left arm and now I have one in my right arm HPI Becki Jackson is a 34 y.o. female presents to the ED today due to concern for DVT. She has a history of DVT diagnosed about 5 days ago on the left upper from an IV stick. She was started on Eliquis and she was taking that. She has had no shortness a breath and then was seen 2 days ago of for increasing concern from this DVT had a PE study done that was negative. At that time she had an IV placed in the right forearm and that has now irritated red erythematous and hard and tender which she noted today. She has no other symptoms other than localized tenderness. She has no shortness of breath. No chest pain. No other complaints. Review of Systems: Review of Systems Constitutional: Negative for chills and fever. HENT: Negative for congestion, sore throat and trouble swallowing. Eyes: Negative for discharge and visual disturbance. Respiratory: Negative for cough and shortness of breath. Cardiovascular: Negative for chest pain and leg swelling. Gastrointestinal: Negative for abdominal pain and nausea. Genitourinary: Negative for difficulty urinating and urgency. Musculoskeletal: Negative for back pain. Skin: Negative for rash. Neurological: Negative for speech difficulty and weakness. All other systems reviewed and are negative. Past Medical History: Past Medical History: Diagnosis Date Acute liver failure ADHD Anxiety Bipolar 1 disorder Depression Gastroparesis Hereditary vascular fragility Kidney lesion Past Surgical History: Past Surgical History: Procedure Laterality Date KNEE SURGERY bilateral knees TONSILLECTOMY ADENOIDECTOMY Allergies: Allergies Allergen Reactions Amoxicillin Contrast Dye [Ivp Dye, Iodine Containing] Penicillins Sulfa Antibiotics Medications: Patient's Medications New Prescriptions CLINDAMYCIN 300 MG CAPSULE Take 1 capsule by mouth 4 times daily for 5 days. NAPROXEN 500 MG TABLET Take 1 tablet by mouth 2 times daily as needed. Previous Medications APIXABAN 5 MG TABLET Take 2 tablets (10 mg) by mouth twice daily for 7 days, then 1 tablet (5 mg) twice daily. BUSPIRONE 5 MG TABLET Take 1 tablet by mouth Three times a day. CYCLOBENZAPRINE 10 MG TABLET Take 1 tablet by mouth 3 times daily as needed for Muscle spasms. GABAPENTIN 300 MG CAPSULE Take 1 capsule by mouth Three times a day. HYDROCODONE-ACETAMINOPHEN 5-325 MG TABLET Take 1 tablet by mouth every 4 hours as needed for up to 3 days. NAPROXEN 500 MG TABLET Take 1 tablet by mouth 2 times daily with meals for 10 days. ONDANSETRON 4 MG TAB DISPERSIBLE TABLET Take 1 tablet by mouth every [address] on tongue MV-MIN-FE FUM-FA-DHA ( 1 PO) Take by mouth. TRAZODONE 50 MG TABLET take 1 to 2 tablets by mouth at bedtime WARFARIN 10 MG TABLET 1 tab PO QPM Modified Medications No medications on file Discontinued Medications No medications on file Family History: History reviewed. No pertinent family history. Social History: Social History Socioeconomic History Marital status: Spouse name: Not on file Number of children: Not on file Years of education: Not on file Highest education level: Not on file Occupational History Not on file Tobacco Use Smoking status: Former Current packs/day: 0.25 Types: Cigarettes Smokeless tobacco: Former Types: Chew Vaping Use Vaping status: Every Day Substance and Sexual Activity Alcohol use: Not Currently Drug use: Never Sexual activity: Not on file Other Topics Concern Not on file Social History Narrative Not on file Social Determinants of Health Financial Resource Strain: Not on file Food Insecurity: Not on file Transportation Needs: Not on file Physical Activity: Not on file Stress: Not on file Social Connections: Not on file Intimate Partner Violence: Not At Risk (05/05/2020) Humiliation, Afraid, Rape, and Kick questionnaire Fear of Current or Ex-Partner: No Emotionally Abused: No Physically Abused: No Sexually Abused: No Housing Stability: Not on file Physical Exam: Physical Exam Vitals and nursing note reviewed. Constitutional: General: She is not in acute distress. Appearance: She is well-developed. She is not toxic-appearing. HENT: Head: Normocephalic and atraumatic. Nose: Nose normal. Mouth/Throat: Mouth: Mucous membranes are moist. Pharynx: Oropharynx is clear. Eyes: Extraocular Movements: Extraocular movements intact. Conjunctiva/sclera: Conjunctivae normal. Pupils: Pupils are equal, round, and reactive to light. Cardiovascular: Rate and Rhythm: Normal rate and regular rhythm. Pulses: Normal pulses. Heart sounds: Normal heart sounds. Pulmonary: Effort: Pulmonary effort is normal. Breath sounds: Normal breath sounds. Abdominal: General: Bowel sounds are normal. Palpations: Abdomen is soft. Tenderness: There is no abdominal tenderness. There is no guarding. Musculoskeletal: General: Normal range of motion. Cervical back: Normal range of motion and neck supple. Skin: General: Skin is warm and dry. Capillary Refill: Capillary refill takes less than 2 seconds. Findings: Erythema present. No rash. Comments: Erythema and phlebitis in the left forearm around the area of the IV site. There is no swelling of the antecubital area or the upper arm. She was not showing any paresthesias or weakness. Localized palpation no phlebitis. Neurological: General: No focal deficit present. Mental Status: She is alert and oriented to person, place, and time. Cranial Nerves: No cranial nerve deficit. Deep Tendon Reflexes: Reflexes normal. Psychiatric: Behavior: Behavior normal. Thought Content: Thought content normal. Vital Signs During ED Visit Patient Vitals for the past 24 hrs: BP Temp Temp src Pulse Resp SpO2 07/29/24 1719 -- -- -- -- 16 -- 07/29/24 1717 121/68 98.6 F (37 C) Oral 113 -- 98 % Orders/Results: Orders Placed This Encounter naproxen (NAPROSYN) tablet 500 mg Clindamycin (CLEOCIN) capsule 300 mg clindamycin 300 MG capsule naproxen 500 MG tablet Results for orders placed or performed during the hospital encounter of 07/25/24 TROPONIN I, HIGH SENSITIVITY Result Value Ref Range TROPONIN I, HIGH SENSITIVITY 2 0 - 12 pg/mL CHEM 7 (LYTES,BUN,CREA,GLUC) Result Value Ref Range Glucose 96 70 - 100 MG/DL BUN 19 7 - 20 MG/DL CREATININE SERUM 0.80 0.70 - 1.20 MG/DL SODIUM 139 137 - 145 MMOL/L POTASSIUM 3.9 3.5 - 5.1 MMOL/L CHLORIDE 107 98 - 107 MMOL/L CARBON DIOXIDE (CO2) 27 22 - 30 MMOL/L ESTIMATED GFR, NON AMER 88 ml/min/1.73sq.m ESTIMATED GFR, 106 ml/min/1.73sq.m GFR COMMENT Average GFR for 30-39 years old = 107. CBC, EDIF, PLATELET Result Value Ref Range WBC (WHITE BLOOD COUNT) 9.5 3.6 - 11.0 10*3/uL RBC 4.36 4.0 - 5.4 10*6/uL HEMOGLOBIN (HGB) 13.1 12.0 - 16.0 G/DL HEMATOCRIT (HCT) 38.9 36.0 - 48.0 % MEAN CELL VOLUME 89.3 80.0 - 100.0 FL Mean Cell HGB 30.1 26.0 - 35.0 PG MEAN CELL HGB CONCENTRATION 33.7 27.0 - 37.0 G/DL RBC DISTRIBUTION 14.6 (H) 11.5 - 14.5 % PLATELET COUNT 333 130 - 400 10*3/uL MEAN PLATELET VOLUME 7.2 (L) 7.4 - 11.0 FL DIFFERENTIAL TYPE AUTO DIFF % NEUTROPHILS 74.6 37.0 - 75.0 % LYMPHOCYTE 14.3 (L) 20.0 - 55.0 % MONOCYTE % 8.0 0.0 - 10.0 % EOSINOPHIL % 2.6 0.0 - 11.0 % BASOPHIL % 0.5 0.0 - 2.0 % Absolute Neutrophil Count 7.1 (H) 1.4 - 6.5 10*3/uL LYMPHOCYTES, ABSOLUTE 1.4 1.2 - 3.4 10*3/uL MONOCYTES, ABSOLUTE 0.8 (H) 0.0 - 0.7 10*3/uL ABSOLUTE EOSINOPHIL COUNT 0.2 0.0 - 0.7 10*3/uL ABSOLUTE BASOPHIL COUNT 0.0 0.0 - 0.2 10*3/uL BETA HCG, QUAL, BLOOD Result Value Ref Range BETA HCG (QUAL), SERUM NEGATIVE NEGATIVE PROTIME-INR Result Value Ref Range PT 12.6 11.8 - 14.4 SEC INR 0.94 0.85 - 1.10 Radiographic Imaging No orders to display Procedures: Procedures Moderate Sedation Procedure: No Medications Ordered/Given During ED Visit Medications naproxen (NAPROSYN) tablet 500 mg (has no administration in time range) Clindamycin (CLEOCIN) capsule 300 mg (has no administration in time range) Medical Decision Making Exam consistent with localized right forearm thrombophlebitis. I will start her on some Keflex as well as Naprosyn. She was use warm compresses. She was clear breath sounds. She was not short of breath she is not tachypneic. She was on Eliquis and just had a CT scan 2 days ago. She has not have any evidence of PE or tachypnea or shortness of breath. Localized care at this time. Follow up with Dr. Claire Ruiz has scheduled continue Eliquis. Follow up if needed if worsening symptoms. Clinical Impression: 1. Thrombophlebitis arm No follow-ups on file. New Prescriptions CLINDAMYCIN 300 MG CAPSULE Take 1 capsule by mouth 4 times daily for 5 days. NAPROXEN 500 MG TABLET Take 1 tablet by mouth 2 times daily as needed. Discontinued Medications No medications on file An After Visit Summary was printed and given to the patient with above information. Indra Santos DO 07/29/24 180 [facility] 07-29-2024 Emergency department Note Images from the original note were not included. Emergency Department Report [facility] EMERGENCY DEPARTMENT Service Date:.07/29/24 PCP: María Hernandez Chief Complaint: Chief Complaint Patient presents with Arm Pain To ED with c/o right arm pain that radiates to chest. Patient states I have a blood clot in my left arm and now I have one in my right arm HPI Becki Jackson is a 34 y.o. female presents to the ED today due to concern for DVT. She has a history of DVT diagnosed about 5 days ago on the left upper from an IV stick. She was started on Eliquis and she was taking that. She has had no shortness a breath and then was seen 2 days ago of for increasing concern from this DVT had a PE study done that was negative. At that time she had an IV placed in the right forearm and that has now irritated red erythematous and hard and tender which she noted today. She has no other symptoms other than localized tenderness. She has no shortness of breath. No chest pain. No other complaints. Review of Systems: Review of Systems Constitutional: Negative for chills and fever. HENT: Negative for congestion, sore throat and trouble swallowing. Eyes: Negative for discharge and visual disturbance. Respiratory: Negative for cough and shortness of breath. Cardiovascular: Negative for chest pain and leg swelling. Gastrointestinal: Negative for abdominal pain and nausea. Genitourinary: Negative for difficulty urinating and urgency. Musculoskeletal: Negative for back pain. Skin: Negative for rash. Neurological: Negative for speech difficulty and weakness. All other systems reviewed and are negative. Past Medical History: Past Medical History: Diagnosis Date Acute liver failure ADHD Anxiety Bipolar 1 disorder Depression Gastroparesis Hereditary vascular fragility Kidney lesion Past Surgical History: Past Surgical History: Procedure Laterality Date KNEE SURGERY bilateral knees TONSILLECTOMY ADENOIDECTOMY Allergies: Allergies Allergen Reactions Amoxicillin Contrast Dye [Ivp Dye, Iodine Containing] Penicillins Sulfa Antibiotics Medications: Patient's Medications New Prescriptions CLINDAMYCIN 300 MG CAPSULE Take 1 capsule by mouth 4 times daily for 5 days. NAPROXEN 500 MG TABLET Take 1 tablet by mouth 2 times daily as needed. Previous Medications APIXABAN 5 MG TABLET Take 2 tablets (10 mg) by mouth twice daily for 7 days, then 1 tablet (5 mg) twice daily. BUSPIRONE 5 MG TABLET Take 1 tablet by mouth Three times a day. CYCLOBENZAPRINE 10 MG TABLET Take 1 tablet by mouth 3 times daily as needed for Muscle spasms. GABAPENTIN 300 MG CAPSULE Take 1 capsule by mouth Three times a day. HYDROCODONE-ACETAMINOPHEN 5-325 MG TABLET Take 1 tablet by mouth every 4 hours as needed for up to 3 days. NAPROXEN 500 MG TABLET Take 1 tablet by mouth 2 times daily with meals for 10 days. ONDANSETRON 4 MG TAB DISPERSIBLE TABLET Take 1 tablet by mouth every [address] on tongue MV-MIN-FE FUM-FA-DHA ( 1 PO) Take by mouth. TRAZODONE 50 MG TABLET take 1 to 2 tablets by mouth at bedtime WARFARIN 10 MG TABLET 1 tab PO QPM Modified Medications No medications on file Discontinued Medications No medications on file Family History: History reviewed. No pertinent family history. Social History: Social History Socioeconomic History Marital status: Spouse name: Not on file Number of children: Not on file Years of education: Not on file Highest education level: Not on file Occupational History Not on file Tobacco Use Smoking status: Former Current packs/day: 0.25 Types: Cigarettes Smokeless tobacco: Former Types: Chew Vaping Use Vaping status: Every Day Substance and Sexual Activity Alcohol use: Not Currently Drug use: Never Sexual activity: Not on file Other Topics Concern Not on file Social History Narrative Not on file Social Determinants of Health Financial Resource Strain: Not on file Food Insecurity: Not on file Transportation Needs: Not on file Physical Activity: Not on file Stress: Not on file Social Connections: Not on file Intimate Partner Violence: Not At Risk (05/05/2020) Humiliation, Afraid, Rape, and Kick questionnaire Fear of Current or Ex-Partner: No Emotionally Abused: No Physically Abused: No Sexually Abused: No Housing Stability: Not on file Physical Exam: Physical Exam Vitals and nursing note reviewed. Constitutional: General: She is not in acute distress. Appearance: She is well-developed. She is not toxic-appearing. HENT: Head: Normocephalic and atraumatic. Nose: Nose normal. Mouth/Throat: Mouth: Mucous membranes are moist. Pharynx: Oropharynx is clear. Eyes: Extraocular Movements: Extraocular movements intact. Conjunctiva/sclera: Conjunctivae normal. Pupils: Pupils are equal, round, and reactive to light. Cardiovascular: Rate and Rhythm: Normal rate and regular rhythm. Pulses: Normal pulses. Heart sounds: Normal heart sounds. Pulmonary: Effort: Pulmonary effort is normal. Breath sounds: Normal breath sounds. Abdominal: General: Bowel sounds are normal. Palpations: Abdomen is soft. Tenderness: There is no abdominal tenderness. There is no guarding. Musculoskeletal: General: Normal range of motion. Cervical back: Normal range of motion and neck supple. Skin: General: Skin is warm and dry. Capillary Refill: Capillary refill takes less than 2 seconds. Findings: Erythema present. No rash. Comments: Erythema and phlebitis in the left forearm around the area of the IV site. There is no swelling of the antecubital area or the upper arm. She was not showing any paresthesias or weakness. Localized palpation no phlebitis. Neurological: General: No focal deficit present. Mental Status: She is alert and oriented to person, place, and time. Cranial Nerves: No cranial nerve deficit. Deep Tendon Reflexes: Reflexes normal. Psychiatric: Behavior: Behavior normal. Thought Content: Thought content normal. Vital Signs During ED Visit Patient Vitals for the past 24 hrs: BP Temp Temp src Pulse Resp SpO2 07/29/24 1719 -- -- -- -- 16 -- 07/29/24 1717 121/68 98.6 F (37 C) Oral 113 -- 98 % Orders/Results: Orders Placed This Encounter naproxen (NAPROSYN) tablet 500 mg Clindamycin (CLEOCIN) capsule 300 mg clindamycin 300 MG capsule naproxen 500 MG tablet Results for orders placed or performed during the hospital encounter of 07/25/24 TROPONIN I, HIGH SENSITIVITY Result Value Ref Range TROPONIN I, HIGH SENSITIVITY 2 0 - 12 pg/mL CHEM 7 (LYTES,BUN,CREA,GLUC) Result Value Ref Range Glucose 96 70 - 100 MG/DL BUN 19 7 - 20 MG/DL CREATININE SERUM 0.80 0.70 - 1.20 MG/DL SODIUM 139 137 - 145 MMOL/L POTASSIUM 3.9 3.5 - 5.1 MMOL/L CHLORIDE 107 98 - 107 MMOL/L CARBON DIOXIDE (CO2) 27 22 - 30 MMOL/L ESTIMATED GFR, NON AMER 88 ml/min/1.73sq.m ESTIMATED GFR, 106 ml/min/1.73sq.m GFR COMMENT Average GFR for 30-39 years old = 107. CBC, EDIF, PLATELET Result Value Ref Range WBC (WHITE BLOOD COUNT) 9.5 3.6 - 11.0 10*3/uL RBC 4.36 4.0 - 5.4 10*6/uL HEMOGLOBIN (HGB) 13.1 12.0 - 16.0 G/DL HEMATOCRIT (HCT) 38.9 36.0 - 48.0 % MEAN CELL VOLUME 89.3 80.0 - 100.0 FL Mean Cell HGB 30.1 26.0 - 35.0 PG MEAN CELL HGB CONCENTRATION 33.7 27.0 - 37.0 G/DL RBC DISTRIBUTION 14.6 (H) 11.5 - 14.5 % PLATELET COUNT 333 130 - 400 10*3/uL MEAN PLATELET VOLUME 7.2 (L) 7.4 - 11.0 FL DIFFERENTIAL TYPE AUTO DIFF % NEUTROPHILS 74.6 37.0 - 75.0 % LYMPHOCYTE 14.3 (L) 20.0 - 55.0 % MONOCYTE % 8.0 0.0 - 10.0 % EOSINOPHIL % 2.6 0.0 - 11.0 % BASOPHIL % 0.5 0.0 - 2.0 % Absolute Neutrophil Count 7.1 (H) 1.4 - 6.5 10*3/uL LYMPHOCYTES, ABSOLUTE 1.4 1.2 - 3.4 10*3/uL MONOCYTES, ABSOLUTE 0.8 (H) 0.0 - 0.7 10*3/uL ABSOLUTE EOSINOPHIL COUNT 0.2 0.0 - 0.7 10*3/uL ABSOLUTE BASOPHIL COUNT 0.0 0.0 - 0.2 10*3/uL BETA HCG, QUAL, BLOOD Result Value Ref Range BETA HCG (QUAL), SERUM NEGATIVE NEGATIVE PROTIME-INR Result Value Ref Range PT 12.6 11.8 - 14.4 SEC INR 0.94 0.85 - 1.10 Radiographic Imaging No orders to display Procedures: Procedures Moderate Sedation Procedure: No Medications Ordered/Given During ED Visit Medications naproxen (NAPROSYN) tablet 500 mg (has no administration in time range) Clindamycin (CLEOCIN) capsule 300 mg (has no administration in time range) Medical Decision Making Exam consistent with localized right forearm thrombophlebitis. I will start her on some Keflex as well as Naprosyn. She was use warm compresses. She was clear breath sounds. She was not short of breath she is not tachypneic. She was on Eliquis and just had a CT scan 2 days ago. She has not have any evidence of PE or tachypnea or shortness of breath. Localized care at this time. Follow up with Dr. Claire Ruiz has scheduled continue Eliquis. Follow up if needed if worsening symptoms. Clinical Impression: 1. Thrombophlebitis arm No follow-ups on file. New Prescriptions CLINDAMYCIN 300 MG CAPSULE Take 1 capsule by mouth 4 times daily for 5 days. NAPROXEN 500 MG TABLET Take 1 tablet by mouth 2 times daily as needed. Discontinued Medications No medications on file An After Visit Summary was printed and given to the patient with above information. Indra Santos DO 07/29/[address] Santos @ bedside documented in this encounter [facility] 07-29-2024 Hospital Discharge instructions Indra Santos DO - 07/29/2024 5:43 PM EDT Thank you for allowing us to be involved in your care today. Please follow up as discussed during your stay. This information is included in your discharge paperwork. Appropriate follow up is essential in your continued care after today's visit. If you had any diagnostic studies (Labs, X-rays, CT-scan , Ultrasound or Cultures) have your Primary Care Physician (PCP) review them with you since there may be results that require further follow up or investigation. Return to the Emergency Department at any point with worsening conditions or concerns. The physician and staff of the Emergency Department would like to thank you for choosing our facility for your health care needs. Our goal is to provide exceptional service. You may be receiving a survey in the mail following your visit. Because your feedback is very important to us, we hope you will take the time to complete and return the survey. If for any reason, you feel that you cannot rate us Very Good or 5 for the service you received today, please let us know prior to your discharge. Please follow up with your family doctor or one of your choosing. You may find a provider [facility] by calling [phone] or by visiting [email or web address] Thank You for choosing the [facility] Emergency Department! The following attachments cannot be sent through Care Everywhere.Thrombophlebitis: Superficial (Maltese)documented in this encounter [facility] 07-29-[address] Santos @ bedside [facility] 07-25-2024 Emergency department Note Discharge instructions reviewed with patient. Patient educated on and follow up. Patient verbalized understanding. No further questions at this time. Patient declined assistance to vehicle. Patient ambulated out of ER with steady gait and in stable condition. [facility] 07-25-2024 Emergency department Note Discharge instructions reviewed with patient. Patient educated on and follow up. Patient verbalized understanding. No further questions at this time. Patient declined assistance to vehicle. Patient ambulated out of ER with steady gait and in stable condition. Patient is not driving after discharge and has a ride Gabriela PRESSLEY aware of increasing chest pain Lab @ bedside for troponin draw. EKG and troponin done in triage room 2 @ this time. documented in this encounter [facility] 07-25-2024 Emergency department Note Patient is not driving after discharge and has a ride [facility] 07-25-2024 Emergency department Note Gabriela PRESSLEY aware of increasing chest pain [facility] 07-25-2024 Emergency department Note Lab @ bedside for troponin draw. EKG and troponin done in triage room 2 @ this time. [facility] 07-23-2024 Physician Emergency department Note Emergency Department Report [facility] EMERGENCY DEPARTMENT Service Date:.07/23/24 PCP: María Hernandez Chief Complaint: Chief Complaint Patient presents with Arm Pain Arm swelling Patient to ED with concerns for blood clot in her left arm. Patient was seen in [place] in Wednesday for gastroparesis and had an IV placed in the Left arm. Patient states arm is now swollen and hot to the touch. Patient also woke up to a bruise or unknown reason to her left breast HPI Becki Jackson is a 34 y.o. female presents to the ED with chief complaint of left arm pain. Patient presents to emergency department complaining of pain in her left arm where she had an IV inserted on Wednesday secondary to being at hospital and will start for abdominal pain and gastroparesis. She states she also noted a large bruise on her left breast. She states she was not sure how that got there. She states it is sore if she touches it. She denies any yellowing to the skin. She denies any yellowing to the skin. She denies any fever vomiting. She states her left arm is sore. She states she has been taking ibuprofen. She denies any chest pain, shortness of breath, hemoptysis. She denies bruising elsewhere. She denies hematuria Review of Systems: Review of Systems Seven systems have been reviewed and are negative Past Medical History: Past Medical History: Diagnosis Date Acute liver failure ADHD Anxiety Bipolar 1 disorder Depression Gastroparesis Hereditary vascular fragility Kidney lesion Past Surgical History: Past Surgical History: Procedure Laterality Date KNEE SURGERY bilateral knees TONSILLECTOMY ADENOIDECTOMY Allergies: Allergies Allergen Reactions Amoxicillin Contrast Dye [Ivp Dye, Iodine Containing] Penicillins Sulfa Antibiotics Medications: Patient's Medications New Prescriptions APIXABAN 5 MG TABLET Take 2 tablets (10 mg) by mouth twice daily for 7 days, then 1 tablet (5 mg) twice daily. WARFARIN 10 MG TABLET 1 tab PO QPM Previous Medications BUSPIRONE 5 MG TABLET Take 1 tablet by mouth Three times a day. CYCLOBENZAPRINE 10 MG TABLET Take 1 tablet by mouth 3 times daily as needed for Muscle spasms. GABAPENTIN 300 MG CAPSULE Take 1 capsule by mouth Three times a day. HYDROCODONE-ACETAMINOPHEN 5-325 MG TABLET Take 1 tablet by mouth every 4 hours as needed for up to 3 days. NAPROXEN 500 MG TABLET Take 1 tablet by mouth 2 times daily with meals for 10 days. ONDANSETRON 4 MG TAB DISPERSIBLE TABLET Take 1 tablet by mouth every [address] on tongue MV-MIN-FE FUM-FA-DHA ( 1 PO) Take by mouth. TRAZODONE 50 MG TABLET take 1 to 2 tablets by mouth at bedtime Modified Medications No medications on file Discontinued Medications No medications on file Family History: History reviewed. No pertinent family history. Social History: Social History Socioeconomic History Marital status: Spouse name: Not on file Number of children: Not on file Years of education: Not on file Highest education level: Not on file Occupational History Not on file Tobacco Use Smoking status: Former Current packs/day: 0.25 Types: Cigarettes Smokeless tobacco: Former Types: Chew Vaping Use Vaping status: Every Day Substance and Sexual Activity Alcohol use: Not Currently Drug use: Never Sexual activity: Not on file Other Topics Concern Not on file Social History Narrative Not on file Social Determinants of Health Financial Resource Strain: Not on file Food Insecurity: Not on file Transportation Needs: Not on file Physical Activity: Not on file Stress: Not on file Social Connections: Not on file Intimate Partner Violence: Not At Risk (05/05/2020) Humiliation, Afraid, Rape, and Kick questionnaire Fear of Current or Ex-Partner: No Emotionally Abused: No Physically Abused: No Sexually Abused: No Housing Stability: Not on file Physical Exam: Physical Exam General: Well-developed well-nourished HENT: Head is atraumatic. Face is symmetric. Mucous membranes are hydrated Eyes: Pupils are equal Skin: Warm and dry, with a nurse present in the room examination of the breast area reveals that she does have a bruise to the left breast. There is no evidence of drainage from the nipple. Abdomen: Soft. Good bowel sounds heard in all 4 quadrants Respiratory: Clear. No wheezing Heart: Heart tones are regular. Capillary refill is brisk Neurologic: Awake, alert, oriented, moving all extremities well Lymphatic: Tenderness to palpation over the left upper arm Musculoskeletal: Patient does have a palpable cord in the left upper arm. It does appear superficial. Psychiatric: Cooperative with examiner Vital Signs During ED Visit Patient Vitals for the past 24 hrs: BP Temp Temp src Pulse Resp SpO2 Height Weight 07/23/24 1348 124/71 -- -- 107 16 97 % -- -- 07/23/24 1214 -- -- -- 104 16 98 % -- -- 07/23/24 1142 127/86 98.6 F (37 C) Oral 122 18 99 % -- -- 07/23/24 1140 -- -- -- -- -- -- 1.651 m (5' 5) 99.8 kg (220 lb) Orders/Results: Results for orders placed or performed during the hospital encounter of 07/23/24 CBC, EDIF, PLATELET Result Value Ref Range WBC (WHITE BLOOD COUNT) 8.6 3.6 - 11.0 10*3/uL RBC 4.55 4.0 - 5.4 10*6/uL HEMOGLOBIN (HGB) 13.6 12.0 - 16.0 G/DL HEMATOCRIT (HCT) 40.6 36.0 - 48.0 % MEAN CELL VOLUME 89.1 80.0 - 100.0 FL Mean Cell HGB 29.8 26.0 - 35.0 PG MEAN CELL HGB CONCENTRATION 33.5 27.0 - 37.0 G/DL RBC DISTRIBUTION 14.4 11.5 - 14.5 % PLATELET COUNT 315 130 - 400 10*3/uL MEAN PLATELET VOLUME 7.1 (L) 7.4 - 11.0 FL DIFFERENTIAL TYPE AUTO DIFF % NEUTROPHILS 75.3 (H) 37.0 - 75.0 % LYMPHOCYTE 13.7 (L) 20.0 - 55.0 % MONOCYTE % 6.8 0.0 - 10.0 % EOSINOPHIL % 3.7 0.0 - 11.0 % BASOPHIL % 0.5 0.0 - 2.0 % Absolute Neutrophil Count 6.5 1.4 - 6.5 10*3/uL LYMPHOCYTES, ABSOLUTE 1.2 1.2 - 3.4 10*3/uL MONOCYTES, ABSOLUTE 0.6 0.0 - 0.7 10*3/uL ABSOLUTE EOSINOPHIL COUNT 0.3 0.0 - 0.7 10*3/uL ABSOLUTE BASOPHIL COUNT 0.0 0.0 - 0.2 10*3/uL PTT Result Value Ref Range PTT 29.6 22.4 - 34.7 SEC PROTIME-INR Result Value Ref Range PT 12.8 11.8 - 14.4 SEC INR 0.95 0.85 - 1.10 COMPREHENSIVE METABOLIC PANEL Result Value Ref Range Glucose 107 (H) 70 - 100 MG/DL BUN 26 (H) 7 - 20 MG/DL CREATININE SERUM 0.75 0.70 - 1.20 MG/DL SODIUM 137 137 - 145 MMOL/L POTASSIUM 4.2 3.5 - 5.1 MMOL/L CHLORIDE 109 (H) 98 - 107 MMOL/L CALCIUM 9.2 8.4 - 10.2 MG/DL PROTEIN, TOTAL 6.6 6.3 - 8.2 GM/DL Albumin 3.8 3.5 - 5.0 G/dl BILIRUBIN, TOTAL 0.3 0.2 - 1.3 MG/DL AST 51 (H) 14 - 36 IU/L ALKALINE PHOSPHATASE 86 38 - 126 IU/L CARBON DIOXIDE (CO2) 23 22 - 30 MMOL/L A/G Ratio 1.4 RATIO ALT 106 (H) <35 IU/L ESTIMATED GFR, NON AMER 95 ml/min/1.73sq.m ESTIMATED GFR, 114 ml/min/1.73sq.m GFR COMMENT Average GFR for 30-39 years old = 107. Radiographic Imaging US DUPLEX EXTREMITY DVT LEFT Final Result IMPRESSION: 1. There are sonographic findings compatible with a deep venous thrombus within the left cephalic vein. The other visualized veins of the left upper extremity appear patent. 2. There is a 1.2 cm hypoechoic nodule incidentally noted within the visualized left lobe of the thyroid gland. If this has not been previously evaluated with a thyroid ultrasound, then an outpatient thyroid ultrasound should be obtained for a more definitive evaluation of this finding and the remainder of the thyroid. Procedures: Procedures Moderate Sedation Procedure: No ED Summary/MDM Ultrasound at this time shows a DVT within the left cephalic vein.. She was started on Eliquis and will be discharged home at this time in stable condition. She received her 1st dose of Eliquis while in the emergency department Clinical Impression: 1. Arm DVT (deep venous thromboembolism), acute, left No follow-ups on file. New Prescriptions APIXABAN 5 MG TABLET Take 2 tablets (10 mg) by mouth twice daily for 7 days, then 1 tablet (5 mg) twice daily. WARFARIN 10 MG TABLET 1 tab PO QPM Discontinued Medications No medications on file An After Visit Summary was printed and given to the patient with above information. . Meron Jorgensen MD 07/23/24 1404 [facility] 07-23-2024 Emergency department Note Emergency Department Report [facility] EMERGENCY DEPARTMENT Service Date:.07/23/24 PCP: María Hernandez Chief Complaint: Chief Complaint Patient presents with Arm Pain Arm swelling Patient to ED with concerns for blood clot in her left arm. Patient was seen in [place] in Wednesday for gastroparesis and had an IV placed in the Left arm. Patient states arm is now swollen and hot to the touch. Patient also woke up to a bruise or unknown reason to her left breast HPI Becki Jackson is a 34 y.o. female presents to the ED with chief complaint of left arm pain. Patient presents to emergency department complaining of pain in her left arm where she had an IV inserted on Wednesday secondary to being at hospital and will start for abdominal pain and gastroparesis. She states she also noted a large bruise on her left breast. She states she was not sure how that got there. She states it is sore if she touches it. She denies any yellowing to the skin. She denies any yellowing to the skin. She denies any fever vomiting. She states her left arm is sore. She states she has been taking ibuprofen. She denies any chest pain, shortness of breath, hemoptysis. She denies bruising elsewhere. She denies hematuria Review of Systems: Review of Systems Seven systems have been reviewed and are negative Past Medical History: Past Medical History: Diagnosis Date Acute liver failure ADHD Anxiety Bipolar 1 disorder Depression Gastroparesis Hereditary vascular fragility Kidney lesion Past Surgical History: Past Surgical History: Procedure Laterality Date KNEE SURGERY bilateral knees TONSILLECTOMY ADENOIDECTOMY Allergies: Allergies Allergen Reactions Amoxicillin Contrast Dye [Ivp Dye, Iodine Containing] Penicillins Sulfa Antibiotics Medications: Patient's Medications New Prescriptions APIXABAN 5 MG TABLET Take 2 tablets (10 mg) by mouth twice daily for 7 days, then 1 tablet (5 mg) twice daily. WARFARIN 10 MG TABLET 1 tab PO QPM Previous Medications BUSPIRONE 5 MG TABLET Take 1 tablet by mouth Three times a day. CYCLOBENZAPRINE 10 MG TABLET Take 1 tablet by mouth 3 times daily as needed for Muscle spasms. GABAPENTIN 300 MG CAPSULE Take 1 capsule by mouth Three times a day. HYDROCODONE-ACETAMINOPHEN 5-325 MG TABLET Take 1 tablet by mouth every 4 hours as needed for up to 3 days. NAPROXEN 500 MG TABLET Take 1 tablet by mouth 2 times daily with meals for 10 days. ONDANSETRON 4 MG TAB DISPERSIBLE TABLET Take 1 tablet by mouth every [address] on tongue MV-MIN-FE FUM-FA-DHA ( 1 PO) Take by mouth. TRAZODONE 50 MG TABLET take 1 to 2 tablets by mouth at bedtime Modified Medications No medications on file Discontinued Medications No medications on file Family History: History reviewed. No pertinent family history. Social History: Social History Socioeconomic History Marital status: Spouse name: Not on file Number of children: Not on file Years of education: Not on file Highest education level: Not on file Occupational History Not on file Tobacco Use Smoking status: Former Current packs/day: 0.25 Types: Cigarettes Smokeless tobacco: Former Types: Chew Vaping Use Vaping status: Every Day Substance and Sexual Activity Alcohol use: Not Currently Drug use: Never Sexual activity: Not on file Other Topics Concern Not on file Social History Narrative Not on file Social Determinants of Health Financial Resource Strain: Not on file Food Insecurity: Not on file Transportation Needs: Not on file Physical Activity: Not on file Stress: Not on file Social Connections: Not on file Intimate Partner Violence: Not At Risk (05/05/2020) Humiliation, Afraid, Rape, and Kick questionnaire Fear of Current or Ex-Partner: No Emotionally Abused: No Physically Abused: No Sexually Abused: No Housing Stability: Not on file Physical Exam: Physical Exam General: Well-developed well-nourished HENT: Head is atraumatic. Face is symmetric. Mucous membranes are hydrated Eyes: Pupils are equal Skin: Warm and dry, with a nurse present in the room examination of the breast area reveals that she does have a bruise to the left breast. There is no evidence of drainage from the nipple. Abdomen: Soft. Good bowel sounds heard in all 4 quadrants Respiratory: Clear. No wheezing Heart: Heart tones are regular. Capillary refill is brisk Neurologic: Awake, alert, oriented, moving all extremities well Lymphatic: Tenderness to palpation over the left upper arm Musculoskeletal: Patient does have a palpable cord in the left upper arm. It does appear superficial. Psychiatric: Cooperative with examiner Vital Signs During ED Visit Patient Vitals for the past 24 hrs: BP Temp Temp src Pulse Resp SpO2 Height Weight 07/23/24 1348 124/71 -- -- 107 16 97 % -- -- 07/23/24 1214 -- -- -- 104 16 98 % -- -- 07/23/24 1142 127/86 98.6 F (37 C) Oral 122 18 99 % -- -- 07/23/24 1140 -- -- -- -- -- -- 1.651 m (5' 5) 99.8 kg (220 lb) Orders/Results: Results for orders placed or performed during the hospital encounter of 07/23/24 CBC, EDIF, PLATELET Result Value Ref Range WBC (WHITE BLOOD COUNT) 8.6 3.6 - 11.0 10*3/uL RBC 4.55 4.0 - 5.4 10*6/uL HEMOGLOBIN (HGB) 13.6 12.0 - 16.0 G/DL HEMATOCRIT (HCT) 40.6 36.0 - 48.0 % MEAN CELL VOLUME 89.1 80.0 - 100.0 FL Mean Cell HGB 29.8 26.0 - 35.0 PG MEAN CELL HGB CONCENTRATION 33.5 27.0 - 37.0 G/DL RBC DISTRIBUTION 14.4 11.5 - 14.5 % PLATELET COUNT 315 130 - 400 10*3/uL MEAN PLATELET VOLUME 7.1 (L) 7.4 - 11.0 FL DIFFERENTIAL TYPE AUTO DIFF % NEUTROPHILS 75.3 (H) 37.0 - 75.0 % LYMPHOCYTE 13.7 (L) 20.0 - 55.0 % MONOCYTE % 6.8 0.0 - 10.0 % EOSINOPHIL % 3.7 0.0 - 11.0 % BASOPHIL % 0.5 0.0 - 2.0 % Absolute Neutrophil Count 6.5 1.4 - 6.5 10*3/uL LYMPHOCYTES, ABSOLUTE 1.2 1.2 - 3.4 10*3/uL MONOCYTES, ABSOLUTE 0.6 0.0 - 0.7 10*3/uL ABSOLUTE EOSINOPHIL COUNT 0.3 0.0 - 0.7 10*3/uL ABSOLUTE BASOPHIL COUNT 0.0 0.0 - 0.2 10*3/uL PTT Result Value Ref Range PTT 29.6 22.4 - 34.7 SEC PROTIME-INR Result Value Ref Range PT 12.8 11.8 - 14.4 SEC INR 0.95 0.85 - 1.10 COMPREHENSIVE METABOLIC PANEL Result Value Ref Range Glucose 107 (H) 70 - 100 MG/DL BUN 26 (H) 7 - 20 MG/DL CREATININE SERUM 0.75 0.70 - 1.20 MG/DL SODIUM 137 137 - 145 MMOL/L POTASSIUM 4.2 3.5 - 5.1 MMOL/L CHLORIDE 109 (H) 98 - 107 MMOL/L CALCIUM 9.2 8.4 - 10.2 MG/DL PROTEIN, TOTAL 6.6 6.3 - 8.2 GM/DL Albumin 3.8 3.5 - 5.0 G/dl BILIRUBIN, TOTAL 0.3 0.2 - 1.3 MG/DL AST 51 (H) 14 - 36 IU/L ALKALINE PHOSPHATASE 86 38 - 126 IU/L CARBON DIOXIDE (CO2) 23 22 - 30 MMOL/L A/G Ratio 1.4 RATIO ALT 106 (H) <35 IU/L ESTIMATED GFR, NON AMER 95 ml/min/1.73sq.m ESTIMATED GFR, 114 ml/min/1.73sq.m GFR COMMENT Average GFR for 30-39 years old = 107. Radiographic Imaging US DUPLEX EXTREMITY DVT LEFT Final Result IMPRESSION: 1. There are sonographic findings compatible with a deep venous thrombus within the left cephalic vein. The other visualized veins of the left upper extremity appear patent. 2. There is a 1.2 cm hypoechoic nodule incidentally noted within the visualized left lobe of the thyroid gland. If this has not been previously evaluated with a thyroid ultrasound, then an outpatient thyroid ultrasound should be obtained for a more definitive evaluation of this finding and the remainder of the thyroid. Procedures: Procedures Moderate Sedation Procedure: No ED Summary/MDM Ultrasound at this time shows a DVT within the left cephalic vein.. She was started on Eliquis and will be discharged home at this time in stable condition. She received her 1st dose of Eliquis while in the emergency department Clinical Impression: 1. Arm DVT (deep venous thromboembolism), acute, left No follow-ups on file. New Prescriptions APIXABAN 5 MG TABLET Take 2 tablets (10 mg) by mouth twice daily for 7 days, then 1 tablet (5 mg) twice daily. WARFARIN 10 MG TABLET 1 tab PO QPM Discontinued Medications No medications on file An After Visit Summary was printed and given to the patient with above information. . Meron Jorgensen MD 07/23/[address] Jorgensen a bruise on her L breast. Nurse in room while exam done Pt c/o pain L anterior upper arm. No redness or swelling noted documented in this encounter [facility] 07-23-2024 Emergency department Note Pt showed Dr Jorgensen a bruise on her L breast. Nurse in room while exam done [facility] 07-23-2024 Emergency department Note Pt c/o pain L anterior upper arm. No redness or swelling noted [facility] 06-30-2024 History of Present illness Narrative Images from the original note were not included. THE [facility] [place] June 30, 2024 SUBJECTIVE: presents with for the visit Becki Jackson presents to for a follow-up appointment for ketamine infusions. The patient states the infusion provided 0% relief. Ketamine infusions 05/29/24 to 06/02/24 Taking gabapentin, tylenol, motrin prn Also taking buspar, invega for her mental health Reports new swelling in hands and legs, along with bruising, itching, red bumps/rash, blisters, and dizziness. Denies any exposure to insects/camping/nature/stoddard/yard . Denies any fevers, body aches, weight loss, chest pain, SOB, headaches - denies any other sick symptoms. Notes nausea and diarrhea - not related to the other symptoms per the patient, has been occurring for along time. Denies any new medications. Denies any new soaps or detergents. Denies any new foods. Denies any new animals but admits to having a dog. States that none of her family members are having any symptoms. States that the symptoms started 2 days after finishing the ketamine infusions. States that the symptoms are getting worse. Has been evaluated by her PCP. Had blood work done. Average pain over the last 7 days: 9/10 Since the end of the infusion, my overall status is: 4 Very much worsened Much worsened Minimally worsened No change Minimally improved Much improved Very much improved Patient Entered Questionnaires 06/23/2023 05/13/2024 06/24/2024 PROMIS CAT Fatigue PROMIS Fatigue T-Score 67 (moderate) 76 (severe) 64 (moderate) PROMIS Fatigue Percentile 4 0 8 06/23/2023 05/13/2024 06/24/2024 PROMIS CAT Pain Interference PROMIS Pain Interference T-Score (range: 10 - 90) 76 (severe) 78 (severe) 81 (severe) PROMIS Pain Interference Percentile 0 0 0 06/23/2023 05/13/2024 06/24/2024 PROMIS CAT Satisfaction with Social Roles PROMIS - Satisfaction with Participation in Social Roles T-Score 39 (Low) 36 (Low) 37 (Low) PROMIS Social Role Satisfaction Percentile 14 8 10 06/24/2023 05/13/2024 06/24/2024 PROMIS CAT Self-Efficacy Manage Symptoms PROMIS Self-Efficacy for Managing Symptoms T-Score 36 (Low) 34 (Low) 35 (Low) PROMIS Self-Efficacy Manage Symptoms Percentile 8 5 7 01/20/2023 05/23/2023 05/13/2024 PROMIS Global Health Scale Physical Health Percentile 7 7 7 2 Mental Health Percentile 3 5 5 2 01/20/2023 05/23/2023 05/13/2024 PROMIS Global Health - (T-Scores - the mean of general population = 50. Five points is a clinically meaningful difference.) Physical T-Score 34.9 34.9 34.9 29.6 Mental T-Score 31.3 33.8 33.8 28.4 06/23/2023 05/13/2024 06/24/2024 Pain Catastrophizing Scale (PCS) - Scores Rumination Subscore 3 14 13 Magnification Subscore 0 4 4 Helplessness Subscore 19 14 PCS Total Score 37 31 06/23/2023 05/13/2024 06/24/2024 STEVE - 7 SCORES Score 12 19 16 06/24/2023 05/13/2024 06/24/2024 PHQ-9 PHQ-2 Score 2 6 6 PHQ-9 Score 14 (Moderate Depression) 23 (Severe Depression) 22 (Severe Depression) ASSESSMENT: Chronic pain syndrome (primary encounter diagnosis) Chronic abdominal pain Gastroparesis Bipolar i disorder, most recent episode (or current) manic (hcc) PLAN: 1) will repeat ketamine in 3 months 2) consult to Dermatology 3) Continue to optimize diet, activity, and sleep. 4) follow up 4 weeks after the next ketamine treatment I spent a total of 25 minutes on the date of the service which included preparing to see the patient, [id number] patient care, completing clinical documentation, obtaining and/or reviewing separately obtained history, performing a medically appropriate examination, counseling and educating the patient/family/caregiver, and ordering medications, tests, or procedures. Lucas Hancock PA-C Important Patient Information: 1. To schedule Pain Recovery appointments or post-injection office visits, please call: [phone] 2. The nursing staff and medical assistants are a part of your pain recovery team and will be handling your phone calls and inquiries. 3. Your study results and treatment plan will be discussed during a follow-up appointment. If you do not have a follow-up appointment and wish to discuss any issues directly with me, please call: [phone] to set-up an appointment. 4. MyChart is best used for refill requests or yes or no questions. Anything more complicated will likely require a follow-up appointment that you can schedule by [phone]. 5. It is the practice of the Department to not fill disability or any other insurance-related forms/documentation. All of the office notes, study results, and other documentation as part of your evaluation will be available to you and to your Primary Care Physician (PCP). Use of this material to complete such forms will be at the discretion of your PCP/referring physician. 6. If you are scheduled for a ketamine infusion, you will be contacted regarding specific scheduling instructions in the future by our department. There is no need to contact our department regarding the scheduling process or your estimated wait; you will be contacted once there is an opening. documented in this encounter [facility] 06-30-2024 Note HNO ID: [id number] Author: LUCAS HANCOCK PA-C Service: ? Author Type: Physician Linux Unix Engineer Type: Progress Notes Filed: 06/30/2024 16:06 Note Text: THE [facility] [place] June 30, 2024 SUBJECTIVE: presents with for the visit Becki Jackson presents to for a follow-up appointment for ketamine infusions. The patient states the infusion provided 0% relief. Ketamine infusions 05/29/24 to 06/02/24 Taking gabapentin, tylenol, motrin prn Also taking buspar, invega for her mental health Reports new swelling in hands and legs, along with bruising, itching, red bumps/rash, blisters, and dizziness. Denies any exposure to insects/camping/nature/stoddard/yard . Denies any fevers, body aches, weight loss, chest pain, SOB, headaches - denies any other sick symptoms. Notes nausea and diarrhea - not related to the other symptoms per the patient, has been occurring for along time. Denies any new medications. Denies any new soaps or detergents. Denies any new foods. Denies any new animals but admits to having a dog. States that none of her family members are having any symptoms. States that the symptoms started 2 days after finishing the ketamine infusions. States that the symptoms are getting worse. Has been evaluated by her PCP. Had blood work done. Average pain over the last 7 days: 9/10 Since the end of the infusion, my overall status is: 4 Very much worsened Much worsened Minimally worsened No change Minimally improved Much improved Very much improved Patient Entered Questionnaires 06/23/2023 05/13/2024 06/24/2024 PROMIS CAT Fatigue PROMIS Fatigue T-Score 67 (moderate) 76 (severe) 64 (moderate) PROMIS Fatigue Percentile 4 0 8 06/23/2023 05/13/2024 06/24/2024 PROMIS CAT Pain Interference PROMIS Pain Interference T-Score (range: 10 - 90) 76 (severe) 78 (severe) 81 (severe) PROMIS Pain Interference Percentile 0 0 0 06/23/2023 05/13/2024 06/24/2024 PROMIS CAT Satisfaction with Social Roles PROMIS - Satisfaction with Participation in Social Roles T-Score 39 (Low) 36 (Low) 37 (Low) PROMIS Social Role Satisfaction Percentile 14 8 10 06/24/2023 05/13/2024 06/24/2024 PROMIS CAT Self-Efficacy Manage Symptoms PROMIS Self-Efficacy for Managing Symptoms T-Score 36 (Low) 34 (Low) 35 (Low) PROMIS Self-Efficacy Manage Symptoms Percentile 8 5 7 01/20/2023 05/23/2023 05/13/2024 PROMIS Global Health Scale Physical Health Percentile 7 7 7 2 Mental Health Percentile 3 5 5 2 01/20/2023 05/23/2023 05/13/2024 PROMIS Global Health - (T-Scores - the mean of general population = 50. Five points is a clinically meaningful difference.) Physical T-Score 34.9 34.9 34.9 29.6 Mental T-Score 31.3 33.8 33.8 28.4 06/23/2023 05/13/2024 06/24/2024 Pain Catastrophizing Scale (PCS) - Scores Rumination Subscore 3 14 13 Magnification Subscore 0 4 4 Helplessness Subscore 19 14 PCS Total Score 37 31 06/23/2023 05/13/2024 06/24/2024 STEVE - 7 SCORES Score 12 19 16 06/24/2023 05/13/2024 06/24/2024 PHQ-9 PHQ-2 Score 2 6 6 PHQ-9 Score 14 (Moderate Depression) 23 (Severe Depression) 22 (Severe Depression) ASSESSMENT: Chronic pain syndrome (primary encounter diagnosis) Chronic abdominal pain Gastroparesis Bipolar i disorder, most recent episode (or current) manic (hcc) PLAN: 1) will repeat ketamine in 3 months 2) consult to Dermatology 3) Continue to optimize diet, activity, and sleep. 4) follow up 4 weeks after the next ketamine treatment I spent a total of 25 minutes on the date of the service which included preparing to see the patient, [id number] patient care, completing clinical documentation, obtaining and/or reviewing separately obtained history, performing a medically appropriate examination, counseling and educating the patient/family/caregiver, and ordering medications, tests, or procedures. Lucas Hancock PA-C Important Patient Information: 1. To schedule Pain Recovery appointments or post-injection office visits, please call: [phone] 2. The nursing staff and medical assistants are a part of your pain recovery team and will be handling your phone calls and inquiries. 3. Your study results and treatment plan will be discussed during a follow-up appointment. If you do not have a follow-up appointment and wish to discuss any issues directly with me, please call: [phone] to set-up an appointment. 4. [employer] is best used for refill requests or yes or no questions. Anything more complicated will likely require a follow-up appointment that you can schedule by [phone]. 5. It is the practice of the Department to not fill disability or any other insurance-related forms/documentation. All of the office notes, study results, and other documentation as part of your evaluation will be available to you and to your Primary Care Physician (PCP). Use of this material t (more content not included)... [facility] 06-05-2024 History of Present illness Narrative RADIOLOGY SERVICE PROGRESS NOTE SERVICE DATE: 06/05/2024 SERVICE TIME: 12:05 PM PATIENT IDENTITY VERIFICATION COMPLETED USING TWO (2) STANDARD IDENTIFIERS: Name and Date of confirmed by patient verbally FALL SCREENING: Has the patient had 2 falls in the last year or 1 fall with injury or currently using an Ambulatory Assistive Device (Walker, Cane, Wheelchair, Crutches, etc.)? No PATIENT GENDER DATA: .female ALLERGIES: Reviewed and unchanged MEDICATIONS REVIEWED: No PATIENT RELEVANT IMPLANT DATA REVIEWED: Not Applicable PATIENT PRESENTS WITH AN IMPLANTABLE OR ATTACHED SUPERVISOR CD AREA: No CREATININE: Creatinine Date Value Ref Range Status 12/10/2023 0.86 0.58 - 0.96 mg/dL Final 12/08/2023 0.97 (H) 0.58 - 0.96 mg/dL Final 12/07/2023 0.65 0.58 - 0.96 mg/dL Final Estimated Glomerular Filtration Rate Date Value Ref Range Status 12/10/2023 92 >=60 mL/min/1.73m Final Comment: Estimated Glomerular Filtration Rate (eGFR) is calculated using the 2020 CKD-EPI creatinine equation. This equation utilizes serum creatinine, sex, and age as parameters. The creatinine assay has traceable calibration to isotope dilution-mass spectrometry. Refer to KDIGO guidelines for clinical interpretation. In patients with unstable renal function, e.g. those with acute kidney injury, the eGFR may not accurately reflect actual GFR. P.O.C.T. RESULTS: N/A June 05, [address] PERFORMED: No IV SITE: Ambulatory: Not applicable POST EXAM PIV STATUS: Not applicable PROCEDURE TYPE: NM GET: 1.05 mCi Tc99m SULFUR COLLOID was administered orally via 4 ounces of Egg Beaters,2 pieces of toast, 1 ounce of jelly with 8 ounces of water orally ADMINISTRATION TIME: 8:50 PATIENT DISCHARGED TO: Ambulatory patient, left [place] department area. A Diagnostic radioactive procedure has taken place, with no further precautions necessary other than routine body substance precautions. More information regarding radiation safety can be found using this link: [email or web address] SIGNATURE: RT Brianna(R) PATIENT NAME: Becki Jackson DATE: June 05, 2024 TIME: 12:05 PM PAGER/CONTACT #: documented in this encounter [facility] 06-02-2024 History of Present illness Narrative Patient here for day 5 of Ketamine infusion. Confirmed NPO > 6 hours and has transportation home. PIV initiated on left arm attempt in 2 - Flushed with no difficulty or signs of infiltration. Patient educated on medications to be administered. Patient verbalized understanding and agreed to proceed with infusions. Monitor alarm limits are set and alarms are audible. 1305 Ketamine infusion started at this time 1415 Flush complete. Infusions completed and tolerated well by patient with no issues or noted medication side effects. Patient alert and awake reporting no dizziness or nausea at this time. PIV removed and intact - Dressing applied. Patient able to self-ambulate to the lobby and to armored car driver for transportation. documented in this encounter [facility] 06-01-2024 History of Present illness Narrative Patient here for day 4 of Ketamine infusion. Patient educated on medications to be administered. Confirmed NPO > 6 hours and has transportation home - waiting in [facility]. Patient verbalized understanding and agreed to proceed with infusions. Monitor alarm limits are set and alarms are audible. No WONG, NV, or dizziness today. Pt rates pain 8/10 located in ABD and describes it as aching. 1300 - ketamine infusion initiated 1300 - 8 mg Zofran given 1340 Pts infusion complete. Tolerated infusion well. PIV removed intact with no complications, dressing applied. Pt discharged to armored car driver in the [facility] in stable condition documented in this encounter [facility] 05-31-2024 History of Present illness Narrative Patient here for day 3 of Ketamine infusion. Patient educated on medications to be administered. Confirmed NPO > 6 hours and has transportation home - waiting in [facility]. Patient verbalized understanding and agreed to proceed with infusions. Monitor alarm limits are set and alarms are audible. No WONG, NV, or dizziness today. Pt rates pain 9/10 located in ABD and describes it as aching. 1205 - ketamine infusion initiated 1205 - 8 mg Zofran given 1245 Pts infusion complete. Tolerated infusion well. PIV removed intact with no complications, dressing applied. Pt discharged to armored car driver in the [facility] in stable condition documented in this encounter [facility] 05-30-2024 History of Present illness Narrative Patient here for day 2 of Ketamine infusion. Patient educated on medications to be administered. Confirmed NPO > 6 hours and has transportation home - waiting in [facility]. Patient verbalized understanding and agreed to proceed with infusions. Monitor alarm limits are set and alarms are audible. No WONG, NV, or dizziness today. Pt rates pain 9/10 located in ABD and describes it as aching. 1305 - ketamine infusion initiated 1305 - 8 mg Zofran given 1400 Pts infusion complete. Tolerated infusion well. PIV removed intact with no complications, dressing applied. Pt discharged to armored car driver in the [facility] in stable condition documented in this encounter [facility] 05-29-2024 History of Present illness Narrative Patient here for day 1 of Ketamine infusion. Patient educated on medications to be administered. Confirmed NPO > 6 hours and has transportation home. Patient verbalized understanding and agreed to proceed with infusions. Monitor alarm limits are set and alarms are audible Pt tolerated infusion and was discharged to family in [facility] at 1355 documented in this encounter [facility] 05-18-2024 History of Present illness Narrative THE [facility] [place] May 18, 2024 SUBJECTIVE: Becki Jackson presents to for a follow-up appointment for chronic abdominal pain. Since the last visit, Becki Jackson states the pain has been persistent. Patient was last seen on 05/24/23 by this provider Scheduled for ketamine on 05/29/24 Taking gabapentin, tylenol, motrin prn States that hot or cold showers improves her pain slightly Eating and sitting still worsens her pain. Reports that she was having severe abdominal pain in Nov 2023. Went to the ED. Had elevated liver enzymes but this has since returned to normal. Had CMP in March which was WNL. Denies any other new health concerns. PDMP website checked and validated. All prescriptions have been APPROPRIATELY filled. No suspicious activity was identified. 05/18/2024 by Lucas Hancock PA-C Current Outpatient Medications Medication Sig Dispense Refill busPIRone (BUSPAR) 5 mg tablet Take 1 tablet by mouth three times a day. 90 tablet 5 lubiprostone (AMITIZA) 8 mcg capsule Take 1 capsule by mouth two times a day with meals. 60 capsule 5 clonazePAM (KLONOPIN) 0.5 mg tablet Take 1 tablet by mouth once daily as needed for up to 7 days. gabapentin (NEURONTIN) 300 mg capsule Take 300 mg by mouth three times a day. paliperidone ER (INVEGA) 3 mg 24 hr tablet Take 3 mg by mouth once daily. folic acid 400 mcg tablet Take 400 mcg by mouth once daily. QUEtiapine (SEROQUEL) 300 mg tablet Take 300 mg by mouth daily at bedtime. (Patient not taking: Reported on 04/20/2024) ondansetron orally disintegrating (ZOFRAN ODT) 4 mg disintegrating tablet albuterol HFA (PROAIR HFA) 90 mcg/actuation inhaler Inhale 2 Puffs as instructed every 4 hours as needed for Wheezing/Shortness of Breath. 1 Inhaler 0 No current facility-administered medications for this visit. 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 jeremy cyst upper mid back REMOVAL GALLBLADDER SALPINGECTOMY Bilateral 06/24/2017 B/L Laprascopic Salpingectomy TONSILLECTOMY PRIMARY/SECONDARY <AGE 12 Tonsillectomy AND ADNOIDS Family History: FAMILY HISTORY Problem Relation Age of Onset Arthritis Mother Heart Mother Thyroid Mother Heart Brother Heart Maternal Uncle Prostate Cancer Maternal Grandfather Emphysema Maternal Grandfather Heart Maternal Grandfather Cancer Paternal Grandfather LUNG AND PANCREATICCANCER Emphysema Paternal Grandfather Anesthesia Problems No Family History Blood Clots No Family History Clotting Disorder No Family History Social History: Social History Tobacco Use Smoking status: Former Years: 4 Types: Cigarettes Quit date: 03/08/2013 Years since quittin.2 Smokeless tobacco: Never Substance Use Topics Alcohol use: No Drug use: No OBJECTIVE: LMP 11/29/2023 BP 147/93 (BP Site: Right Arm, BP Position: Sitting, BP Cuff Size: Large Adult) Pulse 99 Wt 97.3 kg (214 lb 8.1 oz) LMP 11/29/2023 (Approximate) SpO2 99% BMI 35.70 kg/m PHYSICAL EXAMINATION: GENERAL APPEARANCE: Well appearing, well-hydrated, well nourished and alert ASSESSMENT: Chronic pain syndrome (primary encounter diagnosis) Chronic abdominal pain Gastroparesis Bipolar i disorder, most recent episode (or current) manic (hcc) PLAN: 1) continue with current prescribed medications 2) discussed ketamine - potential SE and benefits 3) continue to optimize diet, sleep and exercise 4) follow up 4 weeks after the ketamine treatment. I spent a total of 20 minutes on the date of the service which included preparing to see the patient, [id number] patient care, completing clinical documentation, obtaining and/or reviewing separately obtained history, performing a medically appropriate examination, and counseling and educating the patient/family/caregiver. Lucas Hancock PA-C Important Patient Information: 1. To schedule Pain Recovery appointments or post-injection office visits, please call: [phone] 2. The nursing staff and medical assistants are a part of your pain recovery team and will be handling your phone calls and inquiries. 3. Your study results and treatment plan will be discussed during a follow-up appointment. If you do not have a follow-up appointment and wish to discuss any issues directly with me, please call: [phone] to set-up an appointment. 4. MyChart is best used for refill requests or yes or no questions. Anything more complicated will likely require a follow-up appointment that you can schedule by [phone]. 5. It is the practice of the Department to not fill disability or any other insurance-related forms/documentation. All of the office notes, study results, and other documentation as part of your evaluation will be available to you and to your Primary Care Physician (PCP). Use of this material to complete such forms will be at the discretion of your PCP/referring physician. 6. If you are scheduled for a ketamine infusion, you will be contacted regarding specific scheduling instructions in the future by our department. There is no need to contact our department regarding the scheduling process or your estimated wait; you will be contacted once there is an opening. documented in this encounter [facility] 05-16-2024 History of Present illness Narrative [facility] [place] Gastroparesis/Dysmotility Virtual Follow-Up This encounter was provided via two-way, live video teleconferencing within the guidelines of state licensure rules for new and established patients. I have communicated my name and active licensure. The patient's identity and physical location were verified at the time of this visit. Either the patient or their legal rental sales representative has been informed of the risks and benefits of -- and alternatives to -- treatment through a remote evaluation and consents to proceed with the evaluation remotely. Technical difficulties were not encountered. 20 minutes were spent on the teleconference with the patient. An additional 10 minutes was required for chart review/preparation, documentation, orders, and care coordination. PATIENT NAME: Becki Jackson SERVICE DATE: 05/16/2024 SERVICE TIME: 3:03 PM S/P: 02/03/2023 EGD with Esophageal 54Fr Savery and 20mm Balloon Pyloric Dilation Impression: - The examined portions of the nasopharynx, oropharynx and larynx were normal. - Z-line regular, 38 cm from the incisors. - Gastroesophageal flap valve classified as Hill Grade IV (no fold, wide open lumen, hiatal hernia present). - 2 cm hiatal hernia. - Extrinsic narrowing of the esophagus. Dilated to 54Fr minimal resistance - Gastroparesis. Dilated to 20mm with mild mucosal breaks - Normal examined duodenum. - No specimens collected. ASSESSMENT/PLAN: 34 year old female with medical refractory gastroparesis, the etiology of which is most likely idiopathic. There is clinical suspicion for mid/hind-gut dysmotility based on bowel patterns and symptom distribution. Case is further confounded by reported pyloric stenosis and pharyngeal dysphagia the etiology of which is unclear. Now s/p 02/03/2023 EGD with 54Fr Savery Dilation and 20mm Pyloric Balloon Dilation. Both dilations were productive producing minor mucosal breaks. Unfortunately she has demonstrated no symptomatic response and actually increased symptoms particularly with abdominal pain, odynophagia/dysphagia for weeks without any improvements in nausea/vomiting. High-resolution manometry showing elevated LES resting pressure however normal relaxation and appropriate contractility/peristalsis consistent with normal motility. Modified barium swallow showing impaired pharyngeal transit however generally unclear and some suggestion of esophageal pathology. Follow up Esophagram showing normal motility without any mechanical impairment or clearance issues. Trial of Baclofen seemed to exacerbate symptoms. 08/2023 EGD generally unremarkable other than mild/chronic inactive gastritis without H. pylori and EOE biopsies were negative. Currently patient is marginally tolerating a Soft diet, and weight has remained stable/gaining. Extensive discussion with the patient today regarding the nature of her condition. Overall her presentation remains rather occult and obscure. Despite GI recommendations for pyloromyotomy discussion we did discuss my concerns about the dilation procedure actually worsening her symptoms back in 2022. My primary concern is the potential for worsening of symptoms longitudinally with surgical pyloric therapy. This is especially critical with pain/appetite being her most dominant symptoms which typically do not respond to pylori therapy. There is a chance however that her nausea/vomiting may improve. Recommendation for now would be for repeat gastric emptying given the suboptimal/informal nature of her initial 2021 gastric emptying study, trial of ketamine therapy for her pain, and evaluation at [facility] swallowing center for her seemingly functional dysphagia. 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 At that time she was undergoing comprehensive pain center care with group therapy and ketamine infusions. She had poor response to trial of baclofen. She did undergo a EGD in August 2023. Biopsies at the time were negative for H. pylori and there was no evidence of eosinophilic esophagitis on esophageal biopsies. She has also been following with gastroenterology and was placed on BuSpar and Amitiza but had no relief in any of her symptoms. But bowel function has improved. Top 3 symptoms remain: 1) Abdominal Pain, 2) Lack of Appetite, 3) No energy Diet: Soft foods and some liquids Weight: 212lbs. Stable Reflux: No heartburn, some intermittent regurgitation with eating. A lot of foul belches Dysphagia: Daily, severe, sticking sensation in neck/cervical region with every meal. Solids and Liquids. Nausea: Daily severe, constant. Zofran with only some minimal relief Vomitin-3 episodes per day. Within 30 min of ingestion Pain: Upper Abdomen, more on the right side. Sharp and Pressure, radiating to the lower abdomen Bowel movements: Daily BMs 1-3 per day. Amitiza Gastroparesis Cardinal Symptom Index 1. nausea 3 2. retching 2 3. vomiting 4 4. stomach fullness 5 5. not able to finish a normal-sized meal 5 6. feeling excessively full after meals 5 7. loss of appetite 5 8. bloating (feeling like you need to loosen your clothes) 5 9. stomach or belly visibly larger 5 Scale (0-none; 1-very mild; 2-mild; 3-moderate; 4-severe; 5-very severe) REVIEW OF SYSTEMS: General: Weight gain unknown reason Neuro: No Hx of stroke or seizures Respiratory: Asthma Cardiovascular: Positive for: negative GI: See HPI : No history of UTI in past 6 weeks. No history of renal failure. Not currently on or requiring dialysis. No history of symptoms or problems. SOCK DRIER: Negative for abnormal vaginal bleeding, abnormal vaginal discharge. : Denies Endocrine: No history of diabetes. Has not taken steroids within the past 30 days. No history of endocrinological symptoms or problems. Hematology: No history of bleeding or clotting disorder. Pt is not taking anti-coagulation or platelet medications. No history of hematological symptoms or problems. Oncology: No history of CA metastasis, chemo within 30 days, or radiotherapy within 90 days. Has not lost 10% of body wt in 6 months. No history of oncological symptoms or problems. Psych: Anxiety, Depression, ADHD Musculoskeletal: Back pain and Joint pain Skin: Negative for lesions, rash and itching. OBJECTIVE LMP 11/29/2023 06/03/2023 Esophagram IMPRESSION: Unremarkable esophagram. 03/15/2023 Modified Barium Swallow Impression: Evidence of: Pharyngeal dysphagia, Concern for possible esophageal impairment An elevated risk for aspiration: No Swallow Efficiency: Impaired Patient reported allergy (vomiting) to barium though agreeable to proceed as states she took medication prior to study to prevent allergic reaction. Mild tongue base and valleculae/pyriform residuals post swallow, clearing with subsequent swallow. No laryngeal penetration or tracheal aspiration viewed. Increased residuals with thicker consistencies at the level of C7 requiring additional time and liquid wash to clear. Brief esophageal scan revealed retention of solids and thicker consistencies with intermittent retrograde flow below PES. Residuals clearing by end of session. No episodes of regurgitation or emesis. Results, recommendations discussed and written safe swallow guidelines provided and reviewed. GI following and patient scheduled for esophageal manometry and esophagram. RECOMMENDATION: Diet Recommendations: Regular Consistency, Thin Liquids IDDSI Level 0 STRICT Swallowing Precautions Recommendations: Alert (patient should be fully alert for oral intake) Sit upright at 90 degrees for all oral intake Maintain an upright position 20-30 minutes following all oral intake Small single bites/sips Alternate bites and sips Feed / Eat at a slow rate Extended time between presentations Medications crushed via pureed or one at a time whole Use extra moistening agents 03/15/2023 Esophageal Manometry Interpretation / Findings LES: high resting pressure, complete relaxation on all swallows. Type I EGJ morphology. Manometric esophageal length is 24.1 cm, body height is 165.1 cm, MELH ratio is 0.14, which is within normal limits. Esophageal body: Supine (10 swallows): 10 swallows with normal peristalsis. Upright (5 swallows): 3 swallows with normal peristalsis, 1 weak, 1 failed. Impressions High resolution esophageal manometry within normal limits. PHYSICAL EXAMINATION: GENERAL: AAOx3, NAD EYES: Non-icteric, EOMI NOSE: Septum midline, no drainage ORAL: Tongue midline, no exudates NECK: Normal ROM PULM: Breathing non-labored without stridor or wheezing ABDOMEN: Reports soft, Non-distended, Upper abdominal tenderness EXTREMITIES: Normal ROM SKIN: Non-icteric, no diffuse rashes PSYCH: Appropriate mood and affect. SIGNATURE: Oz Jones DO PATIENT NAME: Becki Jackson DATE: 05/16/2024 TIME: 3:03 PM Please note that portions of this documentation have been copied from the prior encounter however all information has been appropriately reviewed and modified to reflect the current clinical status and plan of care. documented in this encounter [facility] 04-20-2024 Instructions Jing Ch PA-C - 04/20/2024 4:32 PM EDT 1) Stay hydrated, fiber without water does not work 2) Take soluble fiber supplement - Powder is best and more effective than capsules (need to take more) or gummies - Any fiber supplement (metamucil, benefiber, citrucel) is fine; the important thing is to find a supplement you will take consistently - Start slow with 2tsp per day and gradually increase. If you take too much too fast, you may experience bloating and discomfort. - You may need to adjust your fiber dose based on reaching your goal of healthy, soft, easy to pass bowel movements. IT S NOT A PERFECT SCIENCE- EVERYONE IS DIFFERENT. 3) Minimize time on toilet. No phones or reading 4) Reduce straining. Consider a squatty potty or footstool. documented in this encounter [facility] 04-20-2024 History of Present illness Narrative DEPARTMENT OF GASTROENTEROLOGY - FOLLOW UP VISIT HISTORY OF PRESENT ILLNESS Becki Jackson is a 34 year old female who presents today for follow up of abdominal pain. She was seen by myself in November 2023 for this issue and was seen by Dr. Flanagan with recommendations for pain management. Typical bowel movements are up to few times daily, small volume liquid usually without straining. Has had blood in the stool but has been over a year since she has seen that. No heartburn symptoms. She does get foul smelling belching occasionally. No major weight gain or loss. She doesn't take tylenol or NSAIDs. Taking 8 mcg amitiza twice daily and buspirone 3 times/day without improvement. Was seen at [facility] ED for acute liver failure on 04/05/24. TEST RESULTS SINCE LAST VISIT Imaging/Procedures: None Hemoglobin (g/dL) Date Value 12/10/2023 11.6 03/16/2017 13.4 Hematocrit (%) Date Value 12/10/2023 35.3 03/16/2017 41.2 WBC (k/uL) Date Value 12/10/2023 5.09 03/16/2017 14.82 Glucose (mg/dL) Date Value 12/10/2023 88 Potassium (mmol/L) Date Value 12/10/2023 4.6 Sodium (mmol/L) Date Value 12/10/2023 136 Chloride (mmol/L) Date Value 12/10/2023 106 CO2 (mmol/L) Date Value 12/10/2023 24 Creatinine (mg/dL) Date Value 12/10/2023 0.86 BUN (mg/dL) Date Value 12/10/2023 13 Anion Gap (mmol/L) Date Value 12/10/2023 6 Calcium, Total (mg/dL) Date Value 12/10/2023 8.4 Protein, Total (g/dL) Date Value 12/10/2023 5.2 10/09/2013 6.7 Albumin (g/dL) Date Value 12/10/2023 3.1 10/09/2013 3.7 Bilirubin, Total (mg/dL) Date Value 12/10/2023 <0.2 10/09/2013 0.4 Alkaline Phosphatase (U/L) Date Value 12/10/2023 158 10/09/2013 117 AST (U/L) Date Value 12/10/2023 22 10/09/2013 29 ALT (U/L) Date Value 12/10/2023 176 10/09/2013 56 Current Outpatient Medications Medication Sig Dispense Refill busPIRone (BUSPAR) 5 mg tablet Take 1 tablet by mouth three times a day. 90 tablet 5 lubiprostone (AMITIZA) 8 mcg capsule Take 1 capsule by mouth two times a day with meals. 60 capsule 5 gabapentin (NEURONTIN) 300 mg capsule Take 300 mg by mouth three times a day. paliperidone ER (INVEGA) 3 mg 24 hr tablet Take 3 mg by mouth once daily. folic acid 400 mcg tablet Take 400 mcg by mouth once daily. ondansetron orally disintegrating (ZOFRAN ODT) 4 mg disintegrating tablet albuterol HFA (PROAIR HFA) 90 mcg/actuation inhaler Inhale 2 Puffs as instructed every 4 hours as needed for Wheezing/Shortness of Breath. 1 Inhaler 0 clonazePAM (KLONOPIN) 0.5 mg tablet Take 1 tablet by mouth once daily as needed for up to 7 days. QUEtiapine (SEROQUEL) 300 mg tablet Take 300 mg by mouth daily at bedtime. (Patient not taking: Reported on 04/20/2024) No current facility-administered medications for this visit. ALLERGIES Allergen Reactions Iodinated Contrast * Vomiting Penicillins Hives Sulfa (Sulfonamide * Hives REVIEW OF SYSTEMS Gastrointestinal : Nausea, Vomiting, and Abdominal Discomfort All others negative except as noted above PAST MEDICAL HISTORY PHYSICAL EXAMINATION BP 133/74 Pulse 116 Ht 5' 5 (1.65m) Wt 218 lb 4.1 oz (99.0kg) LMP 11/29/2023 BMI 36.32 kg/(m^2). General Appearance: Well appearing, alert, in no acute distress, well-hydrated, well nourished. Eyes: anicteric sclera Oropharynx: not examined while masked Lungs:breath sounds clear to auscultation bilaterally, no crackles, rhonchi, or wheezes Heart: regular rate and rhythm, no murmurs or gallops. Abdomen: not distended, normal bowel sounds, soft and depressible, no guarding or rebound Extremities: no lower extremity edema noted bilaterally Skin: no jaundice Neuro:alert, oriented x 3, pleasant and in no acute distress Assessment IMPRESSION Ms. Jackson is a 34 year old year old female who presents with transaminitis, gastroparesis. PLAN #transaminitis #gastroparesis #cannabis use per chart -patient states she is here to talk about liver failure from a prior hospital admission despite a normal INR and no hepatic encephalopathy documented -we discussed acute liver failure likely not an applicable diagnosis but regardless offered serologic workup of elevated LFTs which patient would like to proceed with, consider hepatology f/u pending results -consider adding small volume powder soluble fiber supplement if tolerated, otherwise decrease insoluble fiber/roughage in diet, smaller more frequent meals, boost/ensure as tolerated to supplement, adequate hydration encouraged, avoidance of constipation -follow up with Dr. Jones as scheduled for POP workup -d/c THC use Jing Ch PA-C April 20, 2024 4:11 PM documented in this encounter [facility] 04-06-2024 Physician Emergency department Note Emergency Department Report [facility] EMERGENCY DEPARTMENT Service Date:.04/06/24 PCP: No primary care provider on file. Chief Complaint: Chief Complaint Patient presents with Abdominal Pain To ed with c/o abd pain x 1 day. Pt has hx of acute liver failure HPI Becki Jackson is a 34 y.o. female presents to the ED today due to abdominal pain. Symptoms been going on for 1 day. Patient denies aggravating or alleviating factors. Patient denies fever or chills. There is no report of bowel or bladder dysfunction no reported shortness of breath. Patient denies cough. No reported diarrhea. Review of Systems: Review of Systems All other systems reviewed and are negative. Past Medical History: Past Medical History: Diagnosis Date Acute liver failure ADHD Anxiety Bipolar 1 disorder Depression Gastroparesis Hereditary vascular fragility Kidney lesion Past Surgical History: Past Surgical History: Procedure Laterality Date KNEE SURGERY bilateral knees TONSILLECTOMY ADENOIDECTOMY Allergies: Allergies Allergen Reactions Amoxicillin Contrast Dye [Ivp Dye, Iodine Containing] Penicillins Sulfa Antibiotics Medications: Patient's Medications New Prescriptions HYDROCODONE-ACETAMINOPHEN 5-325 MG TABLET Take 1 tablet by mouth every 4 hours as needed for up to 3 days. ONDANSETRON 4 MG TAB DISPERSIBLE TABLET Take 1 tablet by mouth every [address] on tongue Previous Medications CYCLOBENZAPRINE 10 MG TABLET Take 1 tablet by mouth 3 times daily as needed for Muscle spasms. NAPROXEN 500 MG TABLET Take 1 tablet by mouth 2 times daily with meals for 10 days. MV-MIN-FE FUM-FA-DHA ( 1 PO) Take by mouth. Modified Medications No medications on file Discontinued Medications No medications on file Family History: History reviewed. No pertinent family history. Social History: Social History Socioeconomic History Marital status: Spouse name: Not on file Number of children: Not on file Years of education: Not on file Highest education level: Not on file Occupational History Not on file Tobacco Use Smoking status: Former Current packs/day: 0.25 Types: Cigarettes Smokeless tobacco: Former Types: Chew Substance and Sexual Activity Alcohol use: Not Currently Drug use: Never Sexual activity: Not on file Other Topics Concern Not on file Social History Narrative Not on file Social Determinants of Health Financial Resource Strain: Not on file Food Insecurity: Not on file Transportation Needs: Not on file Physical Activity: Not on file Stress: Not on file Social Connections: Not on file Intimate Partner Violence: Not At Risk (05/05/2020) Humiliation, Afraid, Rape, and Kick questionnaire Fear of Current or Ex-Partner: No Emotionally Abused: No Physically Abused: No Sexually Abused: No Housing Stability: Not on file Physical Exam: Physical Exam Constitutional: Appearance: Normal appearance. She is well-developed. HENT: Head: Normocephalic and atraumatic. Right Ear: Tympanic membrane and external ear normal. Left Ear: Tympanic membrane and external ear normal. Nose: Nose normal. Mouth/Throat: Mouth: Mucous membranes are moist. Pharynx: Oropharynx is clear. Eyes: Extraocular Movements: Extraocular movements intact. Conjunctiva/sclera: Conjunctivae normal. Pupils: Pupils are equal, round, and reactive to light. Cardiovascular: Rate and Rhythm: Normal rate and regular rhythm. Pulses: Normal pulses. Heart sounds: Normal heart sounds. Pulmonary: Effort: Pulmonary effort is normal. No respiratory distress. Breath sounds: Normal breath sounds. No wheezing. Abdominal: General: Abdomen is flat. Bowel sounds are normal. There is no distension. Palpations: Abdomen is soft. Tenderness: There is no abdominal tenderness. There is no guarding or rebound. Musculoskeletal: General: Normal range of motion. Cervical back: Normal range of motion and neck supple. Skin: General: Skin is warm and dry. Capillary Refill: Capillary refill takes less than 2 seconds. Neurological: General: No focal deficit present. Mental Status: She is alert and oriented to person, place, and time. Mental status is at baseline. Cranial Nerves: No cranial nerve deficit. Sensory: No sensory deficit. Motor: No weakness. Coordination: Coordination normal. Psychiatric: Mood and Affect: Mood normal. Behavior: Behavior normal. Vital Signs During ED Visit Patient Vitals for the past 24 hrs: BP Temp Temp src Pulse Resp SpO2 Height Weight 04/05/24 2318 129/83 -- -- 85 14 100 % -- -- 04/05/24 2106 (!) 132/96 -- -- 106 16 100 % -- -- 04/05/24 1859 -- -- -- -- -- -- 1.651 m (5' 5) 90.7 kg (200 lb) 04/05/24 1858 (!) 133/99 98.3 F (36.8 C) Oral 110 18 100 % -- -- Orders/Results: Orders Placed This Encounter CT ABDOMEN/PELVIS WITHOUT CONTRAST COMPREHENSIVE METABOLIC PANEL CBC, EDIF, PLATELET MAGNESIUM PROTIME-INR AMMONIA LIPASE PTT AMB REFERRAL TO FAMILY PRACTICE Sodium chloride 0.9% IV solution 1,000 mL dicyclomine (BENTYL) injection 20 mg Ketorolac (TORADOL) injection 15 mg Ondansetron 4mg/2ml (ZOFRAN) injection 4 mg Morphine sulfate (PF) injection 4 mg hydroCODone-acetaminophen 5-325 MG tablet Ondansetron 4 MG Tab Dispersible tablet URINALYSIS, MACRO HCG QUALITATIVE, URINE URINE MICROSCOPIC Results for orders placed or performed during the hospital encounter of 04/05/24 COMPREHENSIVE METABOLIC PANEL Result Value Ref Range Glucose 98 70 - 100 MG/DL BUN 16 7 - 20 MG/DL CREATININE SERUM 0.90 0.70 - 1.20 MG/DL SODIUM 141 137 - 145 MMOL/L POTASSIUM 3.9 3.5 - 5.1 MMOL/L CHLORIDE 108 (H) 98 - 107 MMOL/L CALCIUM 8.7 8.4 - 10.2 MG/DL PROTEIN, TOTAL 6.6 6.3 - 8.2 GM/DL Albumin 3.9 3.5 - 5.0 G/dl BILIRUBIN, TOTAL 0.3 0.2 - 1.3 MG/DL AST 25 14 - 36 IU/L ALKALINE PHOSPHATASE 83 38 - 126 IU/L CARBON DIOXIDE (CO2) 30 22 - 30 MMOL/L A/G Ratio 1.4 RATIO ALT 30 <35 IU/L ESTIMATED GFR, NON AMER 77 ml/min/1.73sq.m ESTIMATED GFR, 93 ml/min/1.73sq.m GFR COMMENT Average GFR for 30-39 years old = 107. CBC, EDIF, PLATELET Result Value Ref Range WBC (WHITE BLOOD COUNT) 8.1 3.6 - 11.0 10*3/uL RBC 4.43 4.0 - 5.4 10*6/uL HEMOGLOBIN (HGB) 13.3 12.0 - 16.0 G/DL HEMATOCRIT (HCT) 39.1 36.0 - 48.0 % MEAN CELL VOLUME 88.3 80.0 - 100.0 FL Mean Cell HGB 30.0 26.0 - 35.0 PG MEAN CELL HGB CONCENTRATION 34.0 27.0 - 37.0 G/DL RBC DISTRIBUTION 14.0 11.5 - 14.5 % PLATELET COUNT 316 130 - 400 10*3/uL MEAN PLATELET VOLUME 7.4 7.4 - 11.0 FL DIFFERENTIAL TYPE AUTO DIFF % NEUTROPHILS 74.9 37.0 - 75.0 % LYMPHOCYTE 16.2 (L) 20.0 - 55.0 % MONOCYTE % 6.7 0.0 - 10.0 % EOSINOPHIL % 1.7 0.0 - 11.0 % BASOPHIL % 0.5 0.0 - 2.0 % Absolute Neutrophil Count 6.0 1.4 - 6.5 10*3/uL LYMPHOCYTES, ABSOLUTE 1.3 1.2 - 3.4 10*3/uL MONOCYTES, ABSOLUTE 0.5 0.0 - 0.7 10*3/uL ABSOLUTE EOSINOPHIL COUNT 0.1 0.0 - 0.7 10*3/uL ABSOLUTE BASOPHIL COUNT 0.0 0.0 - 0.2 10*3/uL MAGNESIUM Result Value Ref Range MAGNESIUM 2.1 1.6 - 2.3 MG/DL PROTIME-INR Result Value Ref Range PT 12.5 11.8 - 14.4 SEC INR 0.92 0.85 - 1.10 AMMONIA Result Value Ref Range AMMONIA <9 (L) 9 - 30 UMOL/L LACTATE, BLOOD Result Value Ref Range LACTATE 1.3 0.7 - 2.0 mmol/L LIPASE Result Value Ref Range LIPASE 80 23 - 300 U/L PTT Result Value Ref Range PTT 29.1 22.4 - 34.7 SEC URINALYSIS, MACRO Result Value Ref Range COLOR, URINE YELLOW YELLOW APPEARANCE, URINE CLEAR CLEAR Specific [place], Urine 1.025 1.010 - 1.025 PH URINE 6.5 5.0 - 7.0 Urine Protein NEGATIVE NEGATIVE mg/dl GLUCOSE, URINE NEGATIVE NEGATIVE mg/dl KETONES, URINE NEGATIVE NEGATIVE mg/dl BILIRUBIN, URINE NEGATIVE NEGATIVE BLOOD, URINE DIPSTICK LARGE (A) NEGATIVE NITRITES, URINE NEGATIVE NEGATIVE UROBILINOGEN, URINE 0.2 0.2 - 1.0 E.U./dL LEUKOCYTE ESTERASE, URINE NEGATIVE NEGATIVE HCG QUALITATIVE, URINE Result Value Ref Range HCG, QUALITATIVE, URINE NEGATIVE NEGATIVE URINE MICROSCOPIC Result Value Ref Range WBC, URINE NEGATIVE NEGATIVE /HPF RBC, URINE NEGATIVE NEGATIVE /HPF Epithelial Cells UA 10 TO 20 /HPF Mucus NEGATIVE NEGATIVE BACTERIA, URINE NEGATIVE NEGATIVE CRYSTALS, URINE NONE NONE CASTS, URINE NONE NONE /LPF COMMENT, URINE POSSIBLY CONTAMINATED SPECIMEN, CULTURE MUST BE ORDERED SEPARATELY IF DEEMED NECESSARY. Radiographic Imaging CT ABDOMEN/PELVIS WITHOUT CONTRAST Final Result IMPRESSION: 1. No acute process in the abdomen or pelvis. Moderate Sedation Procedure: No Procedures: Procedures ED Summary: Workups are remarkable. Patient be discharged home in stable condition with follow-up on outpatient basis. Patient has been advised to return for worsening symptoms, fever, any issues that she has. I see no acute abnormality that requires any rapid intervention at this time. Clinical Impression: 1. Upper abdominal pain No follow-ups on file. New Prescriptions HYDROCODONE-ACETAMINOPHEN 5-325 MG TABLET Take 1 tablet by mouth every 4 hours as needed for up to 3 days. ONDANSETRON 4 MG TAB DISPERSIBLE TABLET Take 1 tablet by mouth every [address] on tongue Discontinued Medications No medications on file An After Visit Summary was printed and given to the patient with above information. . . Bobby Singh MD 04/06/24 0036 [facility] 04-06-2024 Emergency department Note Emergency Department Report [facility] EMERGENCY DEPARTMENT Service Date:.04/06/24 PCP: No primary care provider on file. Chief Complaint: Chief Complaint Patient presents with Abdominal Pain To ed with c/o abd pain x 1 day. Pt has hx of acute liver failure HPI Becki Jackson is a 34 y.o. female presents to the ED today due to abdominal pain. Symptoms been going on for 1 day. Patient denies aggravating or alleviating factors. Patient denies fever or chills. There is no report of bowel or bladder dysfunction no reported shortness of breath. Patient denies cough. No reported diarrhea. Review of Systems: Review of Systems All other systems reviewed and are negative. Past Medical History: Past Medical History: Diagnosis Date Acute liver failure ADHD Anxiety Bipolar 1 disorder Depression Gastroparesis Hereditary vascular fragility Kidney lesion Past Surgical History: Past Surgical History: Procedure Laterality Date KNEE SURGERY bilateral knees TONSILLECTOMY ADENOIDECTOMY Allergies: Allergies Allergen Reactions Amoxicillin Contrast Dye [Ivp Dye, Iodine Containing] Penicillins Sulfa Antibiotics Medications: Patient's Medications New Prescriptions HYDROCODONE-ACETAMINOPHEN 5-325 MG TABLET Take 1 tablet by mouth every 4 hours as needed for up to 3 days. ONDANSETRON 4 MG TAB DISPERSIBLE TABLET Take 1 tablet by mouth every [address] on tongue Previous Medications CYCLOBENZAPRINE 10 MG TABLET Take 1 tablet by mouth 3 times daily as needed for Muscle spasms. NAPROXEN 500 MG TABLET Take 1 tablet by mouth 2 times daily with meals for 10 days. MV-MIN-FE FUM-FA-DHA ( 1 PO) Take by mouth. Modified Medications No medications on file Discontinued Medications No medications on file Family History: History reviewed. No pertinent family history. Social History: Social History Socioeconomic History Marital status: Spouse name: Not on file Number of children: Not on file Years of education: Not on file Highest education level: Not on file Occupational History Not on file Tobacco Use Smoking status: Former Current packs/day: 0.25 Types: Cigarettes Smokeless tobacco: Former Types: Chew Substance and Sexual Activity Alcohol use: Not Currently Drug use: Never Sexual activity: Not on file Other Topics Concern Not on file Social History Narrative Not on file Social Determinants of Health Financial Resource Strain: Not on file Food Insecurity: Not on file Transportation Needs: Not on file Physical Activity: Not on file Stress: Not on file Social Connections: Not on file Intimate Partner Violence: Not At Risk (05/05/2020) Humiliation, Afraid, Rape, and Kick questionnaire Fear of Current or Ex-Partner: No Emotionally Abused: No Physically Abused: No Sexually Abused: No Housing Stability: Not on file Physical Exam: Physical Exam Constitutional: Appearance: Normal appearance. She is well-developed. HENT: Head: Normocephalic and atraumatic. Right Ear: Tympanic membrane and external ear normal. Left Ear: Tympanic membrane and external ear normal. Nose: Nose normal. Mouth/Throat: Mouth: Mucous membranes are moist. Pharynx: Oropharynx is clear. Eyes: Extraocular Movements: Extraocular movements intact. Conjunctiva/sclera: Conjunctivae normal. Pupils: Pupils are equal, round, and reactive to light. Cardiovascular: Rate and Rhythm: Normal rate and regular rhythm. Pulses: Normal pulses. Heart sounds: Normal heart sounds. Pulmonary: Effort: Pulmonary effort is normal. No respiratory distress. Breath sounds: Normal breath sounds. No wheezing. Abdominal: General: Abdomen is flat. Bowel sounds are normal. There is no distension. Palpations: Abdomen is soft. Tenderness: There is no abdominal tenderness. There is no guarding or rebound. Musculoskeletal: General: Normal range of motion. Cervical back: Normal range of motion and neck supple. Skin: General: Skin is warm and dry. Capillary Refill: Capillary refill takes less than 2 seconds. Neurological: General: No focal deficit present. Mental Status: She is alert and oriented to person, place, and time. Mental status is at baseline. Cranial Nerves: No cranial nerve deficit. Sensory: No sensory deficit. Motor: No weakness. Coordination: Coordination normal. Psychiatric: Mood and Affect: Mood normal. Behavior: Behavior normal. Vital Signs During ED Visit Patient Vitals for the past 24 hrs: BP Temp Temp src Pulse Resp SpO2 Height Weight 04/05/24 2318 129/83 -- -- 85 14 100 % -- -- 04/05/24 2106 (!) 132/96 -- -- 106 16 100 % -- -- 04/05/24 1859 -- -- -- -- -- -- 1.651 m (5' 5) 90.7 kg (200 lb) 04/05/24 1858 (!) 133/99 98.3 F (36.8 C) Oral 110 18 100 % -- -- Orders/Results: Orders Placed This Encounter CT ABDOMEN/PELVIS WITHOUT CONTRAST COMPREHENSIVE METABOLIC PANEL CBC, EDIF, PLATELET MAGNESIUM PROTIME-INR AMMONIA LIPASE PTT AMB REFERRAL TO [facility] Sodium chloride 0.9% IV solution 1,000 mL dicyclomine (BENTYL) injection 20 mg Ketorolac (TORADOL) injection 15 mg Ondansetron 4mg/2ml (ZOFRAN) injection 4 mg Morphine sulfate (PF) injection 4 mg hydroCODone-acetaminophen 5-325 MG tablet Ondansetron 4 MG Tab Dispersible tablet URINALYSIS, MACRO HCG QUALITATIVE, URINE URINE MICROSCOPIC Results for orders placed or performed during the hospital encounter of 04/05/24 COMPREHENSIVE METABOLIC PANEL Result Value Ref Range Glucose 98 70 - 100 MG/DL BUN 16 7 - 20 MG/DL CREATININE SERUM 0.90 0.70 - 1.20 MG/DL SODIUM 141 137 - 145 MMOL/L POTASSIUM 3.9 3.5 - 5.1 MMOL/L CHLORIDE 108 (H) 98 - 107 MMOL/L CALCIUM 8.7 8.4 - 10.2 MG/DL PROTEIN, TOTAL 6.6 6.3 - 8.2 GM/DL Albumin 3.9 3.5 - 5.0 G/dl BILIRUBIN, TOTAL 0.3 0.2 - 1.3 MG/DL AST 25 14 - 36 IU/L ALKALINE PHOSPHATASE 83 38 - 126 IU/L CARBON DIOXIDE (CO2) 30 22 - 30 MMOL/L A/G Ratio 1.4 RATIO ALT 30 <35 IU/L ESTIMATED GFR, NON AMER 77 ml/min/1.73sq.m ESTIMATED GFR, 93 ml/min/1.73sq.m GFR COMMENT Average GFR for 30-39 years old = 107. CBC, EDIF, PLATELET Result Value Ref Range WBC (WHITE BLOOD COUNT) 8.1 3.6 - 11.0 10*3/uL RBC 4.43 4.0 - 5.4 10*6/uL HEMOGLOBIN (HGB) 13.3 12.0 - 16.0 G/DL HEMATOCRIT (HCT) 39.1 36.0 - 48.0 % MEAN CELL VOLUME 88.3 80.0 - 100.0 FL Mean Cell HGB 30.0 26.0 - 35.0 PG MEAN CELL HGB CONCENTRATION 34.0 27.0 - 37.0 G/DL RBC DISTRIBUTION 14.0 11.5 - 14.5 % PLATELET COUNT 316 130 - 400 10*3/uL MEAN PLATELET VOLUME 7.4 7.4 - 11.0 FL DIFFERENTIAL TYPE AUTO DIFF % NEUTROPHILS 74.9 37.0 - 75.0 % LYMPHOCYTE 16.2 (L) 20.0 - 55.0 % MONOCYTE % 6.7 0.0 - 10.0 % EOSINOPHIL % 1.7 0.0 - 11.0 % BASOPHIL % 0.5 0.0 - 2.0 % Absolute Neutrophil Count 6.0 1.4 - 6.5 10*3/uL LYMPHOCYTES, ABSOLUTE 1.3 1.2 - 3.4 10*3/uL MONOCYTES, ABSOLUTE 0.5 0.0 - 0.7 10*3/uL ABSOLUTE EOSINOPHIL COUNT 0.1 0.0 - 0.7 10*3/uL ABSOLUTE BASOPHIL COUNT 0.0 0.0 - 0.2 10*3/uL MAGNESIUM Result Value Ref Range MAGNESIUM 2.1 1.6 - 2.3 MG/DL PROTIME-INR Result Value Ref Range PT 12.5 11.8 - 14.4 SEC INR 0.92 0.85 - 1.10 AMMONIA Result Value Ref Range AMMONIA <9 (L) 9 - 30 UMOL/L LACTATE, BLOOD Result Value Ref Range LACTATE 1.3 0.7 - 2.0 mmol/L LIPASE Result Value Ref Range LIPASE 80 23 - 300 U/L PTT Result Value Ref Range PTT 29.1 22.4 - 34.7 SEC URINALYSIS, MACRO Result Value Ref Range COLOR, URINE YELLOW YELLOW APPEARANCE, URINE CLEAR CLEAR Specific [place], Urine 1.025 1.010 - 1.025 PH URINE 6.5 5.0 - 7.0 Urine Protein NEGATIVE NEGATIVE mg/dl GLUCOSE, URINE NEGATIVE NEGATIVE mg/dl KETONES, URINE NEGATIVE NEGATIVE mg/dl BILIRUBIN, URINE NEGATIVE NEGATIVE BLOOD, URINE DIPSTICK LARGE (A) NEGATIVE NITRITES, URINE NEGATIVE NEGATIVE UROBILINOGEN, URINE 0.2 0.2 - 1.0 E.U./dL LEUKOCYTE ESTERASE, URINE NEGATIVE NEGATIVE HCG QUALITATIVE, URINE Result Value Ref Range HCG, QUALITATIVE, URINE NEGATIVE NEGATIVE URINE MICROSCOPIC Result Value Ref Range WBC, URINE NEGATIVE NEGATIVE /HPF RBC, URINE NEGATIVE NEGATIVE /HPF Epithelial Cells UA 10 TO 20 /HPF Mucus NEGATIVE NEGATIVE BACTERIA, URINE NEGATIVE NEGATIVE CRYSTALS, URINE NONE NONE CASTS, URINE NONE NONE /LPF COMMENT, URINE POSSIBLY CONTAMINATED SPECIMEN, CULTURE MUST BE ORDERED SEPARATELY IF DEEMED NECESSARY. Radiographic Imaging CT ABDOMEN/PELVIS WITHOUT CONTRAST Final Result IMPRESSION: 1. No acute process in the abdomen or pelvis. Moderate Sedation Procedure: No Procedures: Procedures ED Summary: Workups are remarkable. Patient be discharged home in stable condition with follow-up on outpatient basis. Patient has been advised to return for worsening symptoms, fever, any issues that she has. I see no acute abnormality that requires any rapid intervention at this time. Clinical Impression: 1. Upper abdominal pain No follow-ups on file. New Prescriptions HYDROCODONE-ACETAMINOPHEN 5-325 MG TABLET Take 1 tablet by mouth every 4 hours as needed for up to 3 days. ONDANSETRON 4 MG TAB DISPERSIBLE TABLET Take 1 tablet by mouth every [address] on tongue Discontinued Medications No medications on file An After Visit Summary was printed and given to the patient with above information. . . Bobby Singh MD 04/06/24 0036 documented in this encounter [facility] 03-29-2024 Telephone encounter Note Lvm to schedule with DR Jones to discuss POP per Dr Flanagan [facility] 03-29-2024 Miscellaneous Notes Lvm to schedule with DR Jones to discuss POP per Dr Flanagan documented in this encounter [facility] 03-28-2024 History of Present illness Narrative FOLLOW UP VIRTUAL VISIT I have communicated my name and active licensure. The patient's identity and physical location were verified at the time of this visit. Either the patient or their legal rental sales representative has been informed of the risks and benefits of -- and alternatives to -- treatment through a remote evaluation and consents to proceed with the evaluation remotely. This visit was conducted as a virtual visit. CHIEF COMPLAINT Patient presents with: Constipation Nausea Ms. Jackson is here today for follow-up of: nausea constipation. HPI I saw this patient in follow up for the gi issues by virtual visit. She was last seen 2023 for the constipation. At that point the bowels were very erratic after coming off the naltrexone. Today she states the bowels are loose and yellow in color. She continues to have the regurgitation with oral intake almost immediately after swallowing. We will move forward with the POP given the ongoing stomach symptoms. Current Outpatient Medications Medication Sig Dispense Refill busPIRone (BUSPAR) 5 mg tablet Take 1 tablet by mouth three times a day. 90 tablet 5 lubiprostone (AMITIZA) 8 mcg capsule Take 1 capsule by mouth two times a day with meals. 60 capsule 5 clonazePAM (KLONOPIN) 0.5 mg tablet Take 1 tablet by mouth once daily as needed for up to 7 days. gabapentin (NEURONTIN) 300 mg capsule Take 300 mg by mouth three times a day. paliperidone ER (INVEGA) 3 mg 24 hr tablet Take 3 mg by mouth once daily. clonazePAM (KLONOPIN) 0.5 mg tablet folic acid 400 mcg tablet Take 400 mcg by mouth once daily. QUEtiapine (SEROQUEL) 300 mg tablet Take 300 mg by mouth daily at bedtime. ondansetron orally disintegrating (ZOFRAN ODT) 4 mg disintegrating tablet albuterol HFA (PROAIR HFA) 90 mcg/actuation inhaler Inhale 2 Puffs as instructed every 4 hours as needed for Wheezing/Shortness of Breath. 1 Inhaler 0 No current facility-administered medications for this visit. ALLERGIES Allergen Reactions Iodinated Contrast * Vomiting Penicillins Hives Sulfa (Sulfonamide * Hives Social History Tobacco Use Smoking status: Former Years: 4 Types: Cigarettes Quit date: 03/08/2013 Years since quittin.0 Smokeless tobacco: Never Substance Use Topics Alcohol use: No Drug use: No Medical History: No changes since last visit. REVIEW OF SYSTEMS: GENERAL: weight stable, no fevers. CARDIOVASCULAR: No chest pain, no edema RESPIRATORY: No dyspnea : neg SOCK DRIER: neg The remainder of the review of systems are negative. Reviewed with patient during visit today. PHYSICAL EXAMINATION: [facility] 11/29/2023 Estimated weight: GENERAL APPEARANCE: Well developed and well nourished. SKIN: Skin color, texture, turgor normal. No rashes or lesions. EYES: Conjunctiva normal without icterus. OROPHARYNX: lips, mucosa, and tongue normal, teeth and gums normal NECK: no JVD LUNGS: Normal respirations on RA HEART:pt describes normal heart rythm NEURO: Alert and oriented in no acute distress. ABDOMEN: nondistended EXTREMITIES:Extremities normal, No deformities, No skin discoloration, No edema . Assessment Encounter Diagnosis ICD-10-CM 1. Gastroparesis K31.84 2. Pharyngoesophageal dysphagia R13.14 The patient will revisit with Dr. Jones and consider doing the POP procedure given the ongoing GI symptoms. If this does not alleviate her issues then a referral to the swallowing center would be appropriate given the ongoing oropharyngeal and esophageal type dysphagia despite a negative workup Claire Flanagan DO 03/28/2024 documented in this encounter [facility] 03-21-2024 Telephone encounter Note Called patient, patient states that she medication requested was sent to incorrect office. Patient will call correct office for Rx refill [facility] 03-21-2024 Miscellaneous Notes Called patient, patient states that she medication requested was sent to incorrect office. Patient will call correct office for Rx refill documented in this encounter [facility] 03-21-2024 Telephone encounter Note Name of medication: Amitiza,Buspar Name of ordering provider: Dr. Flanagan VIDHYA: 12/21/2023 [facility]: 11/09/2023 NOV: 03/28/2024 N[facility]: visit date not found Spoke with patient - confirmed patient is requesting refill. Yes Has patient been seen within the year? Yes Pharmacy updated: Yes Medication pended - please file if appropriate. [facility] 03-21-2024 Miscellaneous Notes Name of medication: Mary AnnezaJeremy Name of ordering provider: Dr. Flanagan VIDHYA: 12/21/2023 [facility]: 11/09/2023 NOV: 03/28/2024 N[facility]: visit date not found Spoke with patient - confirmed patient is requesting refill. Yes Has patient been seen within the year? Yes Pharmacy updated: Yes Medication pended - please file if appropriate. documented in this encounter [facility] 03-10-2024 Instructions Danay Larios MD - 03/10/2024 3:56 PM EDT Complete OMT office phone is : [phone] documented in this encounter [facility] 03-10-2024 History of Present illness Narrative Images from the original note were not included. Danay Larios MD Pain Management Pain Management [facility] [address] [address] Dept: [phone] [facility] Follow-Up Evaluation Date: 03/10/2024 3:23 PM Nursing Assessment: AMB ROOMING INTAKE FLOWSHEET DATA Risk Screening Do you have concerns about personal safety or safety in the home?:no Pain Pain Level: 10 Pain Location: abdomen, face Description: sharp, aching, shooting Frequency: continuous Intervention/Comfort measure: n/a Allergies: Allergies: Iodinated Contrast * Vomiting Penicillins Hives Sulfa (Sulfonamide * Hives Current Outpatient Medications: lubiprostone (AMITIZA) 8 mcg capsule Take 1 capsule by mouth two times a day with meals. clonazePAM (KLONOPIN) 0.5 mg tablet Take 1 tablet by mouth once daily as needed for up to 7 days. gabapentin (NEURONTIN) 300 mg capsule Take 300 mg by mouth three times a day. paliperidone ER (INVEGA) 3 mg 24 hr tablet Take 3 mg by mouth once daily. busPIRone (BUSPAR) 5 mg tablet Take 1 tablet by mouth three times a day. clonazePAM (KLONOPIN) 0.5 mg tablet folic acid 400 mcg tablet Take 400 mcg by mouth once daily. QUEtiapine (SEROQUEL) 300 mg tablet Take 300 mg by mouth daily at bedtime. ondansetron orally disintegrating (ZOFRAN ODT) 4 mg disintegrating tablet albuterol HFA (PROAIR HFA) 90 mcg/actuation inhaler Inhale 2 Puffs as instructed every 4 hours as needed for Wheezing/Shortness of Breath. 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 Assessed for the following: Is the patient having any pain? Yes PAIN SCALE: 10 on a scale of 0-10 Past Surgical History: Family History: Family History Problem Relation Age of Onset Arthritis Mother Heart Mother Thyroid Mother Heart Brother Heart Maternal Uncle Prostate Cancer Maternal Grandfather Emphysema Maternal Grandfather Heart Maternal Grandfather Cancer Paternal Grandfather LUNG AND PANCREATICCANCER Emphysema Paternal Grandfather Anesthesia Problems No Family History Blood Clots No Family History Clotting Disorder No Family History Social History: Social History Tobacco Use Smoking status: Former Years: 4 Types: Cigarettes Quit date: 03/08/2013 Years since quittin.0 Smokeless tobacco: Never Substance Use Topics Alcohol use: No Drug use: No Review of Systems: GENERAL: Any unexpected weight loss, recent malaise or fevers?Yes: weight loss HEENT: Any history of glaucoma? No GASTROINTESTINAL: Any history of peptic ulcer disease or GI bleeding? No GENITOURINARY: Any history of incontinence, urinary retention or nephrolithiasis? No MUSCULOSKELETAL: Any joint pain or swelling, back pain or muscle pain?No The remainder of the ROS was negative. Keri Robles MA 03/10/2024 3:23 PM Nursing Attestation: I have reviewed the nursing documentation, edited it as necessary, and confirmed the pertinent information with the patient. SUBJECTIVE: This patient presents to [facility] Department for a follow up appointment. The plan from the last visit on 12/14/2023 was: Medications: Transition to baclofen 10 mg three times a day as needed for spasms Discontinue tizanidine in setting of transaminitis Low Dose Naltrexone - place 1 tablet in 8 oz of water- then drink 1 oz per day All medication profiles were outlined for the patient including potential benefits and expected side effects. Titration schedules were also outlined. Patient was offered intervention where appropriate. Multi-modal Pain Therapy: The patient was explicitly considered for multimodal and interdisciplinary therapy. Non-opioid and non-pharmacologic opportunities to enhance analgesia and quality of life have been and will continue to be pursued. Medications may cause sedation and impairment of judgment. The patient is advised against driving or using heavy machinery. The patient is also advised against using alcohol or other substances that may have a further additive effect. Shared decision making utilized to continue current treatment plan and patient's questions were answered. Medications: Transition to baclofen 10 mg three times a day as needed for spasms Discontinue tizanidine in setting of transaminitis Low Dose Naltrexone - place 1 tablet in 8 oz of water- then drink 1 oz per day Since the last visit, returns today with sharp, aching, and shooting abdominal pain. She has discontinued the naltrexone it caused insomnia and caused increased in blood pressure on one side of her body. Patient discontinued medication after two doses. Baclofen was minimally helpful. She was recently bitten by a dog on her face. Patient states she has not dosed her Bipolar medications in almost 3 weeks. Patient states she has mottling all over her body, mainly on legs and feet. Patient is frustrated that doctors are not targeting the source of her pain, he stomach. Patient asked about why her heart rate fluctuates, encouraged patient to dose medications as prescribed and follow up with PCP. NARX Narcotics: 100 (04/15/2022 8:03 AM) NARX Sedatives: 201 (04/15/2022 8:03 AM) NARX Stimulants: 000 (04/15/2022 8:03 AM) NARX RISK SCORE: 060 (NARxCHECK scores) (04/15/2022 8:03 AM) Patient Entered Questionnaires PROMIS Score Percentiles 01/20/2023 05/23/2023 PROMIS Global Health Scale Physical Health Percentile 7 7 7 Mental Health Percentile 3 5 5 05/23/2023 06/23/2023 Physical Health Physical Function Percentile 2 10 Pain Interference Percentile 1 0 Percentiles provide an indication of how the patient's score ranks in relation to the general population. Higher percentile rankings indicate better function/quality of life. 50th percentile is the average of the general population and indicates half of respondents had a worse score. > 31st percentile is within normal limits or better * < 31st percentile is at least SD worse than population, which may be clinically relevant < 16th percentile is at least 1 SD worse than population and warrants attention Physical Examination: 03/10/24 1525 BP: 112/70 BP Site: Left Arm BP Position: Sitting BP Cuff Size: Regular Adult Pulse: 109 Resp: 18 SpO2: 99% Weight: 99.7 kg (219 lb 12.8 oz) Height: 165.1 cm (5' 5) General:alert GI: Soft, tenderness over left upper quadrant : not examined Musculoskeletal: Neck: Tenderness over the right cervical paraspinal muscles Back: Tenderness over the right lumbar paraspinal muscles, Tenderness over the right thoracic paraspinal muscles Extremities: Extremities normal. No deformities, edema, or skin discoloration Neurological: Mental Status: alert, oriented to person, place, and time Gait: Normal. Assessment and Plan This is a 34 year old female with history of asthma, depression, obesity, bipolar disorder, gastroparesis and migraine presenting with chronic abdominal pain that radiates to her back plus muscle tenderness. Patient follows with GI closely, currently taking gabapentin, buspar and tizanidine. Patient has tried nortriptyline, baclofen, protonix, reglan, zofran and mirtazapine in the past. Patient did not tolerate naltrexone and has discontinued naltrexone and baclofen. At this time, will send for myofascial pain. PLAN: Referrals: OMT for myofascial pain office phone is : [phone] Patient was offered intervention where appropriate. Multi-modal Pain Therapy: The patient was explicitly considered for multimodal and interdisciplinary therapy. Non-opioid and non-pharmacologic opportunities to enhance analgesia and quality of life have been and will continue to be pursued. Medications may cause sedation and impairment of judgment. The patient is advised against driving or using heavy machinery. The patient is also advised against using alcohol or other substances that may have a further additive effect. Shared decision making utilized to continue current treatment plan and patient's questions were answered. Follow-Up Plan: [address] Ric Larios MD Electronic signature 1. This office note has been dictated and may contain minor typographic errors that escaped review 2. The nursing staff and medical assistants are a major part of YOUR TREATMENT TEAM and will be handling your phone calls and inquiries, if any. Unless explicitly told otherwise at the time of your office visit, your study results and ensuing treatment plans will be discussed during your follow-up appointment. If you do not have a follow-up appointment and wish to discuss any issues directly with me, please feel free to obtain one. 3. It is my practice to not fill disability or any other insurance-related forms/documention. All of the office notes, study results, and other pertinent documentation generated as part of your evaluation will be available to you and to your Primary Care Physician (PCP). Use of this material to complete such forms will be at the discretion of your PCP/referring physician. The [facility] EMR was reviewed during the visit including: Problem List, Past Medical History, Past Surgical History, Medications, Allergies, and Encounters with other providers and associated notes I spent 10 minutes reviewing the patient's medical record including pertinent laboratory results and available imaging. Imaging reviewed: None Outside medical records review: No OARRS: PDMP website checked and validated and is consistent with medication report. *Information in italics was copied from the shared EMR I spent a total of 26 minutes on the date of the service which included preparing to see the patient, [id number] patient care, completing clinical documentation, obtaining and/or reviewing separately obtained history, performing a medically appropriate examination, counseling and educating the patient/family/caregiver, and ordering medications, tests, or procedures. documented in this encounter [facility] 03-02-2024 Telephone encounter Note Attempted to call pt to schedule. Mailbox full . Unable to leave vm [facility] 03-02-2024 Miscellaneous Notes Attempted to call pt to schedule. Mailbox full . Unable to leave vm Left VM for patient to call office to schedule follow up visit with Dr. Flanagan Requesting follow up appointment with Dr. Flanagan. States she is losing a lot of weight and having pain. documented in this encounter [facility] 02-22-2024 Telephone encounter Note Left VM for patient to call office to schedule follow up visit with Dr. Flanagan [facility] 02-22-2024 Telephone encounter Note Requesting follow up appointment with Dr. Flanagan. States she is losing a lot of weight and having pain. [facility] Work Phone: 02-15-2024 Emergency department Note Associated Order(s): ECG 12 lead; ECG 12 lead HPI Chief Complaint Patient presents with Upper Extremity Issue Pt comes in [place] right arm pain. Pt states that starting last pm she noticed that she was having right arm pain/numbness/tingling that progressed over into the right and mid chest. Pt does denies any SOB or difficulty with breathing. Pt does feel nauseous. Limitations to History: None HPI: 33-year-old female presents with concern for right arm pain. States is been present since last night. Describes it as a tingling heaviness and aching pain. Worse with movement. States it radiates into her right chest. Denies any nausea, vomiting, shortness of breath, diaphoresis, fever, chills, cough, abdominal pain, fall or trauma. Additional History Obtained from: Significant other at the bedside. ------ Physical Exam: VS: As documented in the triage note and EMR flowsheet from this visit were reviewed. Appearance: Alert. cooperative, in no acute distress. Skin: Intact, dry skin, no lesions, rash, petechiae or purpura. Eyes: PERRLA, EOMs intact, Conjunctiva pink with no redness or exudates. HENT: Normocephalic, atraumatic. Nares patent. No intraoral lesions. Neck: Supple, without meningismus. Trachea at midline. No lymphadenopathy. Pulmonary: Clear bilaterally with good chest wall excursion. No rales, rhonchi or wheezing. No accessory muscle use or stridor. Cardiac: Regular rate and rhythm, no rubs, murmurs, or gallops. Abdomen: Abdomen is soft, nontender, and nondistended. No palpable organomegaly. No rebound or guarding. No CVA tenderness. Nonsurgical abdomen. Genitourinary: Exam deferred. Musculoskeletal: Full range of motion at the right shoulder, elbow, wrist. Pulses full and equal. No cyanosis, clubbing, or edema. Tenderness to palpation throughout the right upper extremity. Neurological: Sensation grossly intact to the right upper extremity. Psychiatric: Appropriate mood and affect. No data recorded Patient History Past Medical History: Diagnosis Date Acute liver failure (HHS-HCC) Asthma (HHS-HCC) Gastroparesis History reviewed. No pertinent surgical history. No family history on file. Social History Tobacco Use Smoking status: Former Types: Cigarettes Smokeless tobacco: Never Vaping Use Vaping status: Every Day Substance Use Topics Alcohol use: Not Currently Drug use: Never Physical Exam ED Triage Vitals [02/15/242027] Temperature Heart Rate Respirations BP 37 C (98.6 F) (!) 103 18 114/64 Pulse Ox Temp Source Heart Rate Source Patient Position 98 % Oral Monitor Sitting BP Location FiO2 (%) Left arm -- Physical Exam ED Course & MDM Diagnoses as of 02/15/242237 Right arm pain Medical Decision Making Labs Reviewed COMPREHENSIVE METABOLIC PANEL - Abnormal Glucose 89 Sodium 139 Potassium 3.8 Chloride 110 (*) Bicarbonate 24 Anion Gap 9 (*) Urea Nitrogen 14 Creatinine 0.86 eGFR >90 Calcium 8.3 (*) Albumin 3.7 Alkaline Phosphatase 92 Total Protein 6.1 (*) AST 12 Bilirubin, Total 0.4 ALT 15 MAGNESIUM - Normal Magnesium 1.92 SERIAL TROPONIN-INITIAL - Normal Troponin I, High Sensitivity <3 Narrative: Less than 99th percentile of normal range cutoff- Female and children under 18 years old <14 ng/L; Male <21 ng/L: Negative Repeat testing should be performed if clinically indicated. Female and children under 18 years old 14-50 ng/L; Male 21-50 ng/L: Consistent with possible cardiac damage and possible increased clinical risk. Serial measurements may help to assess extent of myocardial damage. >50 ng/L: Consistent with cardiac damage, increased clinical risk and myocardial infarction. Serial measurements may help assess extent of myocardial damage. NOTE: Children less than 1 year old may have higher baseline troponin levels and results should be interpreted in conjunction with the overall clinical context. NOTE: Troponin I testing is performed using a different testing methodology at [facility] than at other [facility]. Direct result comparisons should only be made within the same method. SERIAL TROPONIN, 1 HOUR - Normal Troponin I, High Sensitivity <3 Narrative: Less than 99th percentile of normal range cutoff- Female and children under 18 years old <14 ng/L; Male <21 ng/L: Negative Repeat testing should be performed if clinically indicated. Female and children under 18 years old 14-50 ng/L; Male 21-50 ng/L: Consistent with possible cardiac damage and possible increased clinical risk. Serial measurements may help to assess extent of myocardial damage. >50 ng/L: Consistent with cardiac damage, increased clinical risk and myocardial infarction. Serial measurements may help assess extent of myocardial damage. NOTE: Children less than 1 year old may have higher baseline troponin levels and results should be interpreted in conjunction with the overall clinical context. NOTE: Troponin I testing is performed using a different testing methodology at [facility] than at other [facility]. Direct result comparisons should only be made within the same method. TROPONIN SERIES- (INITIAL, 1 HR) Narrative: The following orders were created for panel order Troponin I Series, High Sensitivity (0, 1 HR). Procedure Abnormality Status --------- ------ Troponin I, High Sensiti...[[id number]] Normal Final result Troponin, High Sensitivi...[[id number]] Normal Final result Please view results for these tests on the individual orders. CBC WITH AUTO DIFFERENTIAL XR chest 1 view Final Result No evidence for acute cardiopulmonary process. Signed by: Tyesha Landers 02/15/2024 9:24 PM Dictation workstation: [id number]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 Imaging reviewed: None Outside medical records review: No OARRS: PDMP website checked and validated and is not consistent: Evidence of multisourcing *Information in italics was copied from the shared EMR I spent a total of 35 minutes on the date of the service which included preparing to see the patient, [id number] patient care, completing clinical documentation, obtaining and/or reviewing separately obtained history, performing a medically appropriate examination, counseling and educating the patient/family/caregiver, and ordering medications, tests, or procedures. documented in this encounter [facility] 12-13-2023 Miscellaneous Notes Lvm to schedule appt with Dr Flanagan for hospital f/u ----- Message from MARJORIE Galeano sent at 12/10/2023 10:23 AM EST ----- Regarding: APPT INPATIENT This is a inpatient soon to be discharged and they want to see this patient. documented in this encounter [facility] 12-10-2023 Note HNO ID: [id number] Author: NATASHA KEATING LSW Service: Care Management Author Type: Computer Systems Auditor Type: Care Mgt Progress Note Filed: 12/10/2023 13:00 Note Text: CARE MANAGEMENT PROGRESS NOTE SERVICE DATE: 12/10/2023 SERVICE TIME: 12:59 PM LOS: 3 days SW added resources on AVS. No further SW needs SIGNATURE: KAR Tejeda PATIENT NAME: Becki Jackson DATE: December 10, 2023 TIME: 12:59 PM PAGER/CONTACT #: [phone] [facility] 12-10-2023 Note HNO ID: [id number] Author: TAURUS MURRELL RPh Service: Pharmacy Author Type: Pharmacist Type: Plan of Care Filed: 12/10/2023 10:30 Note Text: DISCHARGE MEDICATION REVIEW BY PHARMACY Patient Name: Becki Jackson Account #: Data Unavailable Admission Date: 12/07/2023 Date of Contact: December 10, 2023 Time of Contact: 10:30 AM Medication list was reviewed by a Pharmacist for drug interactions or drug related problems:Yes Below is a summary of pharmacist recommendations discussed with LIP: The following medications were discussed with LIP for further review: Discontinue risperidone on discharge (patient's home paliperidone ER was interchanged to risperidone on admission) I have discussed the recommendations and the medication orders have been addressed by LIP. Taurus Murrell RPh December 10, 2023 10:30 AM Pager: [phone] 12/10/2023 10:30 AM Medication List START taking these medications nitrofurantoin monohydrate and macrocrystal 100 mg capsule Commonly known as: MACROBID Take 1 capsule by mouth two times a day with meals. risperiDONE 1 mg tablet Commonly known as: RisperDAL Take 1 tablet by mouth daily at bedtime. CHANGE how you take these medications * clonazePAM 0.5 mg tablet Commonly known as: KlonoPIN What changed: Another medication with the same name was added. Make sure you understand how and when to take each. * clonazePAM 0.5 mg tablet Commonly known as: KlonoPIN Take 1 tablet by mouth once daily as needed for up to 7 days. What changed: You were already taking a medication with the same name, and this prescription was added. Make sure you understand how and when to take each. folic acid 400 mcg tablet What changed: Another medication with the same name was removed. Continue taking this medication, and follow the directions you see here. * This list has 2 medication(s) that are the same as other medications prescribed for you. Read the directions carefully, and ask your doctor or other care provider to review them with you. CONTINUE taking these medications albuterol HFA 90 mcg/actuation inhaler Commonly known as: PROAIR HFA Inhale 2 Puffs as instructed every 4 hours as needed for Wheezing/Shortness of Breath. busPIRone 5 mg tablet Commonly known as: BUSPAR Take 1 tablet by mouth three times a day. gabapentin 300 mg capsule Commonly known as: NEURONTIN ondansetron orally disintegrating 4 mg disintegrating tablet Commonly known as: ZOFRAN ODT paliperidone ER 3 mg 24 hr tablet Commonly known as: INVEGA QUEtiapine 300 mg tablet Commonly known as: SEROquel tiZANidine 4 mg tablet Commonly known as: ZANAFLEX Take 1 tablet by mouth three times a day. STOP taking these medications MOTEGRITY 1 mg Tab tablet Generic drug: prucalopride Where to Get Your Medications These medications were sent to e- [facility]/pharmacy #[id number] [place] [address] - [address] [facility] [phone] [address] [address] [address] nitrofurantoin monohydrate and macrocrystal 100 mg capsule risperiDONE 1 mg tablet [facility] 12-10-2023 Note HNO ID: [id number] Author: ADBI SIBLEY RN Service: Care Management Author Type: Registered Nurse Type: Care Mgt Progress Note Filed: 12/10/2023 10:30 Note Text: CARE MANAGEMENT DISCHARGE NOTE SERVICE DATE: December 10, 2023 SERVICE TIME: 10:27 AM Patient discharging home with self care, family will transport home, patient will follow up with primary care physician. Admission Date: 12/07/2023 LOS: 3 days Discharge Arrangement Discharge Arrangement: Home with Self Care Provider Name: Fortino Stapleton Jabier PCP - General, Family Medicine Since 11/12/2011 Caregiver Assessment Caregiver is ready, willing and able to meet the patient's needs as recommended by the inter-professional team: No Caregiver needed Transportation Arrangements Transportation Arrangements: Car Date of Trip: 12/10/23 Time of Trip: 1300 Destination: home Handoff Communication: Handoff to: Primary Care Physician Primary Care Physician Name/Phone: Fortino Stapleton Jabier PCP - General, [facility] Since 11/12/2011 SIGNATURE: Abdi Sibley RN PATIENT NAME: Becki Jackson DATE: December 10, 2023 TIME: 10:24 AM CONTACT #: [phone] [facility] 12-09-2023 Note HNO ID: [id number] Author: MICHAEL CARROLL MD Service: General Internal Medicine Author Type: Physician Type: Progress Notes Filed: 12/09/2023 18:34 Note Text: INTERNAL MEDICINE PROGRESS NOTES Patient Name: Becki Jackson DATE of SERVICE: December 09, 2023 TIME of SERVICE: 6:09 PM Admitting Physician: Apolinar Pinedo MD INTERVAL HPI: [id number] with Drug Dependence presented with severe abdominal pains associated with n/v/d in the backdrop of Gastroparesis under [place] care of Dr Flanagan.Upon arrival in The ED Toxicology positive for marijuana and Amphetamines. Additionally was an extremely high numbers in AST and ALT 1144 and 975 respectively. The following day the numbers improved and today AST:39 and ALT 249.She was non jaundiced and was seen by GI with the recommendation to follow up as outpt.Since admission has been drug seeking leading to a confrontation with initial attending that prompted a switch of providers (me taking over)Patient would like to see someone today. GI has signed off. ROS: PHYSICAL EXAM: BP 115/66 Pulse 96 Temp 36.8 ?C (98.2 ?F) Resp 16 Ht 165.1 cm (5' 5) Wt 99.8 kg (220 lb) LMP 11/29/2023 (Approximate) SpO2 97% BMI 36.61 kg/m? Body mass index is 36.61 kg/m?. General appearance: healthy, alert, cooperative, pleasant, in no acute distress Neck: supple and no JVD Lungs: clear to auscultation, without rales or wheeze, good air exchange Heart: regular rate and rhythm, without murmur Abdomen: soft, nondistended, nontender, no hepatosplenomegaly or masses Ext: no edema in LE bilaterally, good distal pulses Neuro: Awake, alert and oriented x 3, Cranial nerves II-XII grossly intact, Reflexes symmetrical, and No involuntary motions. DATA: Recent Labs 12/09/23 1227 12/08/23 1803 12/07/23 0511 WBC -- 4.64 5.36 HB -- 12.2 14.2 HCT -- 36.1 41.7 PLT -- 258 261 NA -- 137 138 K -- 4.2 4.4 CHLOR -- 107* 106* CO2 -- 22 21* CREAT -- 0.97* 0.65 BUN -- 9 12 GLUC -- 99 82 TPROT 5.7* 5.8* 6.7 ALB 3.4* 3.2* 3.8* MG -- 1.7 2.1 CA -- 8.4* 8.7 ALKPHOS 179* 207* 312* TBILI 0.2 0.2 0.6 AST 39* 87* 1,144* ALT 249* 360* 975* Additional Lab Data: PROBLEM LIST: ACTIVE PROBLEM LIST History of Depression Family History of Congenital Heart Defect Drug Use Affecting in Third Trimester Gastroparesis Electronic Cigarette Use Class 3 Severe Obesity in Adult (Hcc) Chronic Abdominal Pain Pharyngoesophageal Dysphagia Transaminitis Substance Abuse (Hcc) Bipolar Disorder (Hcc) Malnutrition of Mild Degree (Hcc) ASSESSMENT AND PLAN: #1 Abdominal Pains probably part of her Idiopathic Gastroparesis #2 Drug Seeking Behavior. #3 Transaminitis almost resolved. #4 Mild protein calorie malnutrition Plan of care discussed with: Provider, RN, Patient. SIGNATURE: Michael Carroll MD PAGER: [phone] Date: December 09, 2023 Time: 6:07 PM [facility] 12-09-2023 Note HNO ID: [id number] Author: SHAYLA HOUGH APRN.CENTERPUNCHER Service: Gastroenterology Author Type: Nurse Practitioner Type: Plan of Care Filed: 12/09/2023 11:26 Note Text: DEPARTMENT OF GASTROENTEROLOGY AND HEPATOLOGY [facility] INPATIENT VISIT DATE AND TIME 12/09/23 11:24 AM PLAN OF CARE PATIENT NAME: Becki Jackson Interval History: NAEON, HDS, afebrile. No labs to follow-up on today. LFT's trended down nicely as of yesterday. (Some elements copied from my colleague's note, dated 12/08, which have been reviewed and updated where appropriate. All reflect current medical decision making from today, 12/09.) Impression: 33 yo female, GI consulted for n/v/d, abdominal pain. Pmhx includes gastroparesis, depression. Patient presented to ED with c/o abdominal pain, n/v/d, was advised by her gastroparesis DrBette Flanagan to come in for severe symptoms. Endorses flare up of symptoms over the last 3 days, had gone to OSH ED twice in the last 3 days and was discharged with normal CT and labs. She reports numerous episodes of small volume liquid diarrhea yesterday, so far has had 1 this morning. No blood in stool, melena. Denies hx IVDA, hx hepatitis, family history liver disease, any alcohol use, hx incarceration or service. She takes 2g tylenol as needed daily. Surgical history includes cholecystectomy and tubal ligation. No current bowel regimen. Feeling hungry for more food today. gastroparesis diarrhea- resolved elevated LFT's - improving -KUB and RUQ US unremarkable -continue supportive care including antiemetics -Diet as tolerated -OP follow-up with GI clinic - orders placed -advised total cessation of marijuana products GI will sign off at this time. Thank you for consult and re-consult as needed. SIGNATURE: Shayla Hough APRN.CENTERPUNCHER PAGER/CONTACT #: For concerns during days 7a-5p, contact COOLER CON[employer]YOR LOADER directly [phone] Please page [phone] for covering attending concerns [facility] 12-09-2023 Note HNO ID: [id number] Author: MICHAEL CARROLL MD Service: General Internal Medicine Author Type: Physician Type: Progress Notes Filed: 12/09/2023 10:30 Note Text: Clinical Indicators: 2/14 RD PN ?Nutrition Assessment: Recommended Malnutrition Diagnosis: Mild Protein-Calorie Malnutrition In the context of: Chronic Illness or Injury Based on: Insufficient Energy Intake Problem: Suboptimal oral intake Related to: Chronic illness As evidenced by: Patient/family self-report? ?Care Plan: Continue current diet Snacks: Add (Red Jello) Supplements: Ensure Clear Medications: Anti-emetics? ?Body mass index is 36.61 kg/m?.? 12/08 Gastroenterology PN ??presented to ED with c/o abdominal pain, n/v/d, was advised by her gastroparesis? ?Continue supportive care including antiemetics? ?Advance diet as tolerated? Please clarify the Patient's Nutritional Status X Mild Protein Calorie Malnutrition based on the above assessment, plan, and treatment Other, please specify [facility] 12-08-2023 Note HNO ID: [id number] Author: APOLINAR PINEDO MD Service: ? Author Type: Physician Type: Progress Notes Filed: 12/08/2023 12:20 Note Text: PROGRESS NOTE - INTERNAL MEDICINE PATIENT NAME: Becki Jackson Patient Active Hospital Problem List: Transaminitis (12/07/2023) Gastroparesis (01/20/2023) Class 3 severe obesity in adult (HCC) (01/20/2023) Chronic abdominal pain (05/24/2023) Substance abuse (HCC) (12/07/2023) Bipolar disorder (HCC) (12/07/2023) PLAN: Discussed with unit PA/CENTERPUNCHER about care plans. Discussed with patient in details. No sign of UTI. Urine culture is negative. Stopped antibiotics. Labs are not done yet. Discussed with GI [employer] CON[employer]YOR LOADER. Likely drug induced elevated LFT.s Patient is not happy with my care. Wants to see another PCP. Will assign to MD trains service conductor. Patient Vitals for the past 24 hrs: BP Temp Temp src Pulse Resp SpO2 Height Weight 12/08/23 0810 104/74 36.3 ?C (97.3 ?F) Oral 79 18 98 % -- -- 12/08/23 0419 95/50 36.5 ?C (97.7 ?F) Oral (!) 56 14 100 % -- -- 12/08/23 0021 101/53 36.5 ?C (97.7 ?F) Oral 70 18 96 % -- -- 12/07/232032 (!) 104/48 36.9 ?C (98.4 ?F) Oral 78 16 97 % -- -- 12/07/23 1236 118/84 36.7 ?C (98.1 ?F) Oral 79 16 98 % -- -- 12/07/23 1233 -- -- -- -- -- -- 165.1 cm (5' 5) 99.8 kg (220 lb) Body mass index is 36.61 kg/m?. Last 2 Encounter Wt Readings: Date: Wt: 12/06/2023 99.8 kg (220 lb) 09/22/2023 97.5 kg (215 lb) DATA: Diagnostic tests reviewed for today's visit: Most recent labs Most recent imaging Current Facility-Administered Medications Medication Dose Route Frequency NaCl 0.9% iv flush bag 20 mL INTRAVENOUS PRN heparin 5,000 Units injection 5,000 Units SUBCUTANEOUS q 12 H NaCl 0.9% iv infusion 100 mL/hr INTRAVENOUS CONTINUOUS ondansetron 4 mg tab(s) (ZOFRAN) 4 mg ORAL q 6 H PRN Or ondansetron (PF) 4 mg injection (ZOFRAN) 4 mg INTRAVENOUS q 6 H PRN docusate sodium 100 mg cap(s) (COLACE) 100 mg ORAL BID PRN hyoscyamine sublingual 0.125 mg tab(s) (LEVSIN SL) 0.125 mg SUBLINGUAL AC and HS clonazePAM 0.5 mg tab(s) (KlonoPIN) 0.5 mg ORAL DAILY PRN busPIRone 5 mg tab(s) (BUSPAR) 5 mg ORAL TID folic acid 1 mg tab(s) 1 mg ORAL DAILY risperiDONE 1 mg tab(s) (RisperDAL) 1 mg ORAL AT BEDTIME gabapentin 300 mg cap(s) (NEURONTIN) 300 mg ORAL TID acetaminophen 650 mg tab(s) (TYLENOL) 650 mg ORAL q 4 H PRN pantoprazole 40 mg injection (PROTONIX) 40 mg INTRAVENOUS BID AC (0600/1600) Recent Labs 12/07/23 0511 WBC 5.36 HB 14.2 HCT 41.7 PLT 261 NA 138 K 4.4 CHLOR 106* CO2 21* CREAT 0.65 BUN 12 GLUC 82 TPROT 6.7 ALB 3.8* MG 2.1 CA 8.7 ALKPHOS 312* TBILI 0.6 AST 1,144* ALT 975* SIGNATURE: Apolinar Pinedo MD DATE: December 08, 2023 TIME: 12:18 PM [facility] 12-06-2023 Miscellaneous Notes Call to patient and relayed message below from Dr. Flanagan. She expressed understanding of message and had no questions. If the pain is continuing she will need to go back to ER Call to patient to discuss her message below: DDSI SCREENING QUESTIONNAIRE Symptoms began 2 day(s) Are your symptoms new or are they the same? Same as in the past but increased in severity Are you currently having any of the following symptoms: Vomiting: No I Abdominal pain: {Yes Describes as constant, rates it as a 10 out of 10. States it is a sharp pain. Fever: No Dizziness: Yes Are you able to eat/tube feed? Yes Patient was at the [facility] ER last night. Patient states they advised her not to eat for 12-18 hours to let her stomach rest since it was full of food. Patient states she did eat yesterday. Constipation: No Date of last BM patient states she is having watery diarrhea this morning and was unable to control her bowels. Diarrhea: Yes, started this morning Last Office Visit: [facility] on 11/09/2023 What Current medications are you taking: Current Medications 12/06/2023 Medication Dosage Taking ([place] Choice) New Prescription Needed? albuterol HFA (PROAIR HFA) 90 mcg/actuation inhaler Inhale 2 Puffs as instructed every 4 hours as needed for Wheezing/Shortness of Breath. Yes / No busPIRone (BUSPAR) 5 mg tablet Take 1 tablet by mouth three times a day. Yes / No clonazePAM (KLONOPIN) 0.5 mg tablet Yes / No folic acid 400 mcg tablet Take 400 mcg by mouth once daily. Yes / No ondansetron orally disintegrating (ZOFRAN ODT) 4 mg disintegrating tablet 0 Refill(s) Yes / No prucalopride (MOTEGRITY) 1 mg tab tablet Take 1 tablet (1 mg) by mouth once daily. Yes / No QUEtiapine (SEROQUEL) 300 mg tablet Take 300 mg by mouth daily at bedtime. Yes / No tiZANidine (ZANAFLEX) 4 mg tablet Take 1 tablet by mouth three times a day. Becki is calling Claire Flanagan DO today with concern regarding Patient Update Patient calling, states I went to ED this weekend with severe stomach pain. They told me that my stomach is full of food and it is not moving. What can I do? Please call to advise. Patient has been identified by name and birthdate. Duration of symptoms: 2 days Person calling: self Call patient at: on cell [phone] (home) [phone] (cell) Was an appointment scheduled: No Closing statement: Nahomy Valenzuela documented in this encounter [facility] 09-29-2023 Note ORIGINAL EXAMINATION: CT RENAL09/29/2023 11:41 am TECHNIQUE: CT of the abdomen was performed without and then with the administration of intravenous contrast. Multiplanar reformatted images are provided for review. Automated exposure control, iterative reconstruction, and/or weight based adjustment of the mA/kV was utilized to reduce the radiation dose to as low as reasonably achievable. COMPARISON: CT abdomen and pelvis 08/17/2023. Pre contrast imaging: HISTORY: ORDERING SYSTEM PROVIDED HISTORY: Reason for Exam: renal lesion found on CT of ABD FINDINGS: Lung bases are clear. Precontrast imaging: There is no evidence of nephrolithiasis. Postcontrast imaging: Gallbladder is surgically absent. Liver and stomach and spleen and pancreas and adrenal glands are normal. There is a fairly well-circumscribed hypodense lesion measuring 1 cm in the posterior lower pole of the right kidney seen on image 31, series number 3, as well as image 70 and coronal series 601. Otherwise there is no hydronephrosis. Caliber of the abdominal aorta is normal. Visualized large and small bowel is unremarkable. There is no abdominal lymphadenopathy or inflammatory process or ascites. Visualized osseous structures are normal in appearance. IMPRESSION: 1. 1 cm rounded hypodense lesion in the posterior lower pole of the right kidney corresponding with previously noted lesion seen on prior CT scan of the abdomen of 08/17/2023. Recommendation: Initial further ultrasound with renal ultrasound to determine solid versus cystic nature. If findings remain indeterminate, recommend proceeding with MRI of the kidneys with gadolinium. Interpreted by: Ryan Capone Preliminary Report By: Ryan Capone Electronically signed By Ryan Capone Dictated Date: 09/29/2023 11:43:26 AM Prelim Date: 09/29/2023 11:50:35 AM Sign Date: 09/29/2023 11:50:35 AM Ordering Provider: [facility] 08-31-2023 Miscellaneous Notes Spoke to Dr Oliver in clinic. He said to send patient to ED. I spoke with Ms Jackson and advised her to go to ED. She said she will. Destiny eParson LPN Patient calling. She had EGD yesterday. She is feeling pressure in her chest and upper abdomen. She tastes blood in her mouth. She had abdominal pain as well. She did not notice any blood in stool. She is not passing gas or burping. No fevers or chills. Please advise. Destiny Pearson LPN documented in this encounter [facility] 08-30-2023 Nurse Note [facility] ENDOSCOPY POST PROCEDURE FOLLOW UP CALL [phone] (home) Date Phone Call Made: 08/31/2023 Attempt: Attempt #1 Spoke to: Patient SYMPTOM DESCRIPTION Pain or Discomfort rated as: C/O chest pressure-advised to contact MD and/or proceed to ED/call 911 if worsens. Is able to take deep breaths. Denies bloody emesis/ discharge IV No complaints Diet Back to Previous Yes Nausea/Vomiting: None Bleeding: None Bowel Habits: N/A Other Issues: See above Was the nursing staff attentive to your needs? Yes Is there something our department could have done to make your experience more pleasant? No Fannie Kearney RN documented in this encounter [facility] 08-30-2023 History and physical note HISTORY AND PHYSICAL PATIENT NAME: Becki Jackson SERVICE DATE: 08/30/2023 SERVICE: [facility] Oliver MD PRIMARY CARE PHYSICIAN: WENDIE Rice Subjective HPI: 33 year old female with medical refractory gastroparesis. She presents for EGD She currently denies any chest pain, palpitations, SOB, headache, dizziness, lightheadedness, change in vision or hearing, numbness or tingling in the hands or feet, N/V/C/D, dysuria or hematuria, seizures or syncope. 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 jeremy cyst upper mid back REMOVAL GALLBLADDER SALPINGECTOMY Bilateral 06/24/2017 B/L Laprascopic Salpingectomy TONSILLECTOMY PRIMARY/SECONDARY <AGE 12 Tonsillectomy AND ADNOIDS FAMILY HISTORY Problem Relation Age of Onset Arthritis Mother Heart Mother Thyroid Mother Heart Brother Heart Maternal Uncle Prostate Cancer Maternal Grandfather Emphysema Maternal Grandfather Heart Maternal Grandfather Cancer Paternal Grandfather LUNG AND PANCREATICCANCER Emphysema Paternal Grandfather Anesthesia Problems No Family History Blood Clots No Family History Clotting Disorder No Family History Social History Tobacco Use Smoking status: Former Years: 4 Types: Cigarettes Quit date: 03/08/2013 Years since quittin.4 Smokeless tobacco: Never Substance Use Topics Alcohol use: No Drug use: No OB History T4 L4 SAB0 IAB0 Ectopic0 Multiple0 Live Births4 MEDICATIONS: Prior to Admission medications as of 07/01/23 0846 Medication Sig Last Dose Taking busPIRone (BUSPAR) 5 mg tablet Take 1 tablet by mouth three times a day. nortriptyline (PAMELOR) 50 mg capsule Take 50 mg by mouth daily at bedtime. Patient not taking: Reported on 05/24/2023 gabapentin (NEURONTIN) 300 mg capsule Take 300 mg by mouth three times daily. Patient not taking: Reported on 05/24/2023 prucalopride (MOTEGRITY) 1 mg tab tablet Take 1 tablet (1 mg) by mouth once daily. baclofen 10 mg tablet Take 1 tablet by mouth twice daily. Patient not taking: Reported on 05/24/2023 gabapentin (NEURONTIN) 100 mg capsule Take 200 mg by mouth daily at bedtime. Patient not taking: Reported on 05/24/2023 clonazePAM (KLONOPIN) 0.5 mg tablet folic acid 400 mcg tablet Take 400 mcg by mouth once daily. QUEtiapine (SEROQUEL) 300 mg tablet Take 300 mg by mouth daily at bedtime. pantoprazole DR (PROTONIX) 40 mg tablet Take 40 mg by mouth once daily. Patient not taking: Reported on 05/24/2023 ondansetron orally disintegrating (ZOFRAN ODT) 4 mg disintegrating tablet 0 Refill(s) albuterol HFA (PROAIR HFA) 90 mcg/actuation inhaler Inhale 2 Puffs as instructed every 4 hours as needed for Wheezing/Shortness of Breath. No medication comments found. CURRENT ALLERGIES: ALLERGIES Allergen Reactions Iodinated Contrast * Vomiting Penicillins Hives Sulfa (Sulfonamide * Hives VITALS: Last BP 05/24/23 : 133/73 Last Temp 05/24/23 : 36.7 C (98 F) (Temporal) Last Pulse 05/24/23 : (!) 58 Last Resp Rate 02/03/23 : (!) 40 Last SpO2 05/24/23 : 97% Last Ht 05/24/23 : 165.1 cm (5' 5) Last Wt 05/24/23 : 100.1 kg (220 lb 11.2 oz) LMP: Last LMP Date: LMP: 05/24/2023 04/24/2023 REVIEW OF SYSTEMS: PAIN ASSESSMENT: Negative for pain, history of chronic pain, or current treatment for a chronic pain condition. General: No weight loss, malaise or fevers. HEENT: Negative for frequent or significant headaches, No changes in hearing or vision, and No nose bleeds or other nasal problems Neck: Negative for lumps, goiter, pain and significant neck swelling, No difficulty chewing or swallowing Respiratory: Negative for cough, wheezing or shortness of breath. Cardiovascular: Negative for chest pain, leg swelling or palpitations. GI: Negative for abdominal discomfort, blood in stools or black stools or change in bowel habits : No history of dysuria, frequency or incontinence SOCK DRIER: Negative for abnormal vaginal bleeding, abnormal vaginal discharge Musculoskeletal Negative for joint pain or swelling, back pain or muscle pain. Skin Negative for lesions, rash, and itching. Neuro: No history of headaches, syncope, paralysis, seizures or tremors Objective PHYSICAL EXAM: Head & Neck: normal, no jugular venous extension, no thyromegaly, and no palpable mass NECK:supple, no bruit, no JVD Supple; good ROM. Airways: Patent Eyes: Pupils are equally round and reactive to light. Extraocular movements are intact. Chest & Lungs: Clear to auscultation & percussion Heart: Normal, Regular rate and rhythm, and No murmurs Abdomen: Soft, Non-tender, No masses, hepatosplenomegaly, and No lymphadenopathy Extremities: Radial and pedal pulses +2, no edema, extremities WNL Back: Normal back and mobility Neurological: Gait normal and Sensation intact Skin: Color, texture, turgor normal. Assessment/Plan 33 year old female with medical refractory gastroparesis She presents for scheduled EGD SIGNATURE: WENDIE Niño DATE: August 30, 2023 TIME: 12:30 PM documented in this encounter [facility] 08-24-2023 Miscellaneous Notes Name of medication: Jeremy Name of ordering provider: Dr. Flanagan VIDHYA: 01/05/2023 LDH: 05/05/2023 NOV: Visit date not found NDH: visit date not found Spoke with patient - confirmed patient is requesting refill. Yes Has patient been seen within the year? Yes Pharmacy updated: Yes Medication pended - please file if appropriate. Destiny Pearson LPN documented in this encounter [facility] 08-17-2023 Hospital Discharge instructions Patient Education 08/17/2023 17:32:40 Gastroparesis Gastroparesis Gastroparesis means that food and fluids move too slowly out of the stomach into the duodenum. Gastroparesis (also called delayed gastric emptying) happens when the stomach takes longer than normal to empty of food. This is due to a problem with motility (the movement of the muscles in the digestive tract). For many people, gastroparesis is a lifelong condition. But treatment can help relieve symptoms and prevent complications. Read on to learn more about gastroparesis and how it can be managed. How gastroparesis develops With normal motility, signals from nerves tell the stomach muscles when to contract. These muscles move food from the stomach into the duodenum (the first part of the small bowel). With gastroparesis, the nerves or muscles are damaged. This causes motility to slow down or stop completely. As a result, food cannot move from the stomach properly. This delayed emptying can cause nausea, vomiting, and other symptoms. Malnutrition can result. Bezoars (hardened lumps of food) can form in the stomach and cause other complications as well. Causes of gastroparesis Gastroparesis can be caused by any of the following: Diabetes Surgery involving any of the digestive organs, such as the stomach and bowels Certain medicines, such as strong pain medicines (narcotics) Certain conditions, such as systemic scleroderma, Parkinson disease, and thyroid disease After a viral illness In many cases, the cause of gastroparesis cannot be found. Signs and symptoms of gastroparesis These can include: Nausea and vomiting Feeling full quickly when eating Belly pain Heartburn Belly bloating Weight loss Loss of appetite High and low blood sugar levels (in people with diabetes) Diagnosing gastroparesis Your healthcare provider will ask about your symptoms and health history. You ll also be examined. In addition, blood tests and X-rays are often done to check your health and rule out other problems. To confirm the problem, you may need other tests as well. These can include: Upper endoscopy. This is done to see inside the stomach and duodenum. For the test, an endoscope is used. This is a thin, flexible tube with a tiny camera on the end. It s inserted through the mouth and down into the stomach and duodenum. Upper gastrointestinal (GI) series. This is done to take X-rays of the upper GI tract from the mouth to the small bowel. For the test, a substance called barium is used. The barium coats the upper GI tract so that it will show up clearly on X-rays. Gastric emptying scan. This is done to measure how quickly food leaves the stomach. For the test, a meal containing a harmless radioactive substance (tracer) is eaten. Then scans of the stomach are done. The tracer shows up clearly on the scans and shows the movement of the food through the stomach. Antroduodenal manometry. This test gives pressure measurements of the stomach and small intestine to check how the contractions are working. Newer tests. These are being created and include breath tests and wireless capsule studies and wireless motility capsule of the entire intestinal tract Treating gastroparesis The goal of treatment is to help you manage your condition. Treatment may include one or more of the following: Dietary changes. You may need to make changes to your eating habits and daily diet. For instance, your healthcare provider may instruct you to eat small meals throughout the day. Doing this can keep you from feeling full too quickly. You may be placed on a liquid or soft diet. This means you ll eat liquid foods or foods that are mashed or put through a printing machinist. In addition, you may need to avoid foods high in fats and fiber. These can slow digestion. For more help with your diet, your healthcare provider can refer you to a dietitian. In severe cases, you may need a feeding tube. This sends liquid food or medicine directly to your small bowel, bypassing the stomach. Treating diabetes. If you are diabetic, it is important to control your blood sugar. High sugar levels worsen gastroparesis. Medicines. These can help manage symptoms, such as nausea and vomiting. They can also improve motility. Each medicine has specific risks and side effects. Your doctor can tell you more about any medicine that is prescribed for you. Narcotic pain relievers and certain other medications should be stopped if they are contributing to your gastroparesis Surgery. You may need to have a tube surgically inserted into the stomach. The tube removes excess air and fluid. This can relieve severe symptoms of nausea and vomiting. In rare cases, other surgery may be needed on the stomach or small bowel. This is to create a new passageway for food to be emptied from the stomach. Gastric electrical stimulation. This treatment is done less often and may not be available. Your healthcare provider can tell you more about this treatment if it is a choice for you. Diabetes and gastroparesis If you have diabetes, gastroparesis can make it harder to manage your blood sugar level. You ll need to take extra steps in your treatment to prevent complications. Work with your healthcare provider to learn what you can do to protect your health. For more information, contact the [place] [employer], www.diabetes.org. Long-term concerns With treatment, most people can manage their symptoms and maintain their usual routines. If your symptoms are moderate to severe, you may need to see your healthcare provider more often for checkups. Also, other treatments will likely be needed. 2253-6083 The [employer]. [address] [place] [address], [place] [address]. All rights reserved. This information is not intended as a substitute for professional medical care. Always follow your healthcare professional's instructions. Follow Up Care 08/17/2023 11:03:27 With:Go to emergency room if symptoms worsen Address:Unknown When:2-4 days With:KAYLEY DOBSON DO Address: [address] [place] [address] [place] [address] [phone] When:2-4 days [facility] 08-17-2023 Emergency department Discharge summary Discharge Instructions Thank you for allowing [facility] to assist you with your healthcare needs. The following is important discharge information regarding your hospital visit. Diagnosis from Today's Visit Abdominal pain Gastroparesis Vomiting What to Do Next Instructions from Your Care Team please follow up regarding right renal lesion on CT with your PCP Discharge Return to Work, School, or Sports (Return to Work, School, or Sports) - Ordered -- 09/18/23, May return to: work, 08/17/23 17:34:00 EDT Post Acute Orders No qualifying data available. You Need to Schedule the Following Appointments Follow Up with Go to emergency room if symptoms worsen When Within 2-4 days Follow Up with KAYLEY DOBSON DO When Within 2-4 days Where: [address] [place] [address] [place] [address]- [phone] Allergies Contrast dye (vomiting) penicillin (hives) sulfa drug (hives) Medications Please ask your primary doctor or pharmacist before taking any other medication not listed, including over the counter drugs, herbal medications, vitamins and or supplements as they may interact with your home medications. What How Much When Instructions Last Dose New dicyclomine (dicyclomine 10 mg oral capsule) 1 cap by mouth Four (4) times a day Duration: 7 Days Printed Prescription New metoclopramide (Reglan 5 mg oral tablet) 1 tab(s) by mouth Four (4) times a day Duration: 7 Days Printed Prescription Unchanged albuterol (Albuterol (Eqv-ProAir HFA) 90 mcg/ inh inhalation aerosol) 2 puff(s) by inhalation Every 6 hours as needed for Wheezing Duration: 30 Days Unchanged clonazePAM (clonazePAM 0.5 mg oral tablet) 0.5 tab(s) by mouth Once a day as needed for Anxiety Unchanged diclofenac topical (Voltaren 1% topical gel) 1 application Topical Four (4) times a day Unchanged nortriptyline (nortriptyline 25 mg oral capsule) TAKE 1 CAPSULE BY MOUTH AT BEDTIME Unchanged omeprazole (omeprazole 20 mg oral delayed release capsule) 1 cap by mouth Once a day Unchanged ondansetron (ondansetron 4 mg oral tablet, disintegrating) 1 tab(s) by mouth Three (3) times a day as needed for Nausea Please take this list to your next doctor s visit. Bring all medications you take, including over the counter medications, herbals and other supplements with you to your doctor s visit. Patients and families are reminded to discard old lists and to update any records with all medication providers or retail pharmacies. Education Materials Gastroparesis Gastroparesis means that food and fluids move too slowly out of the stomach into the duodenum. Gastroparesis (also called delayed gastric emptying) happens when the stomach takes longer than normal to empty of food. This is due to a problem with motility (the movement of the muscles in the digestive tract). For many people, gastroparesis is a lifelong condition. But treatment can help relieve symptoms and prevent complications. Read on to learn more about gastroparesis and how it can be managed. How gastroparesis develops With normal motility, signals from nerves tell the stomach muscles when to contract. These muscles move food from the stomach into the duodenum (the first part of the small bowel). With gastroparesis, the nerves or muscles are damaged. This causes motility to slow down or stop completely. As a result, food cannot move from the stomach properly. This delayed emptying can cause nausea, vomiting, and other symptoms. Malnutrition can result. Bezoars (hardened lumps of food) can form in the stomach and cause other complications as well. Causes of gastroparesis Gastroparesis can be caused by any of the following: Diabetes Surgery involving any of the digestive organs, such as the stomach and bowels Certain medicines, such as strong pain medicines (narcotics) Certain conditions, such as systemic scleroderma, Parkinson disease, and thyroid disease After a viral illness In many cases, the cause of gastroparesis cannot be found. Signs and symptoms of gastroparesis These can include: Nausea and vomiting Feeling full quickly when eating Belly pain Heartburn Belly bloating Weight loss Loss of appetite High and low blood sugar levels (in people with diabetes) Diagnosing gastroparesis Your healthcare provider will ask about your symptoms and health history. You ll also be examined. In addition, blood tests and X-rays are often done to check your health and rule out other problems. To confirm the problem, you may need other tests as well. These can include: Upper endoscopy. This is done to see inside the stomach and duodenum. For the test, an endoscope is used. This is a thin, flexible tube with a tiny camera on the end. It s inserted through the mouth and down into the stomach and duodenum. Upper gastrointestinal (GI) series. This is done to take X-rays of the upper GI tract from the mouth to the small bowel. For the test, a substance called barium is used. The barium coats the upper GI tract so that it will show up clearly on X-rays. Gastric emptying scan. This is done to measure how quickly food leaves the stomach. For the test, a meal containing a harmless radioactive substance (tracer) is eaten. Then scans of the stomach are done. The tracer shows up clearly on the scans and shows the movement of the food through the stomach. Antroduodenal manometry. This test gives pressure measurements of the stomach and small intestine to check how the contractions are working. Newer tests. These are being created and include breath tests and wireless capsule studies and wireless motility capsule of the entire intestinal tract Treating gastroparesis The goal of treatment is to help you manage your condition. Treatment may include one or more of the following: Dietary changes. You may need to make changes to your eating habits and daily diet. For instance, your healthcare provider may instruct you to eat small meals throughout the day. Doing this can keep you from feeling full too quickly. You may be placed on a liquid or soft diet. This means you ll eat liquid foods or foods that are mashed or put through a printing machinist. In addition, you may need to avoid foods high in fats and fiber. These can slow digestion. For more help with your diet, your healthcare provider can refer you to a dietitian. In severe cases, you may need a feeding tube. This sends liquid food or medicine directly to your small bowel, bypassing the stomach. Treating diabetes. If you are diabetic, it is important to control your blood sugar. High sugar levels worsen gastroparesis. Medicines. These can help manage symptoms, such as nausea and vomiting. They can also improve motility. Each medicine has specific risks and side effects. Your doctor can tell you more about any medicine that is prescribed for you. Narcotic pain relievers and certain other medications should be stopped if they are contributing to your gastroparesis Surgery. You may need to have a tube surgically inserted into the stomach. The tube removes excess air and fluid. This can relieve severe symptoms of nausea and vomiting. In rare cases, other surgery may be needed on the stomach or small bowel. This is to create a new passageway for food to be emptied from the stomach. Gastric electrical stimulation. This treatment is done less often and may not be available. Your healthcare provider can tell you more about this treatment if it is a choice for you. Diabetes and gastroparesis If you have diabetes, gastroparesis can make it harder to manage your blood sugar level. You ll need to take extra steps in your treatment to prevent complications. Work with your healthcare provider to learn what you can do to protect your health. For more information, contact the [place] [employer], www.diabetes.org. Long-term concerns With treatment, most people can manage their symptoms and maintain their usual routines. If your symptoms are moderate to severe, you may need to see your healthcare provider more often for checkups. Also, other treatments will likely be needed. 5849-3964 [employer]. [address] [place] [address]. All rights reserved. This information is not intended as a substitute for professional medical care. Always follow your healthcare professional's instructions. Additional Information VACCINATE! IT SAVES LIVES! Members of the community who have not yet received the COVID-19 vaccine and would like to receive it can visit one of [facility] vaccine clinics. There are many vaccine clinic locations within the [facility]. For locations and available times, please visit www.gettheshot.coronavirus.[place].g ov/. It is important to note that some COVID mobile vaccine clinics are held outdoors and may be canceled in rainy or stormy conditions. To learn more about pediatric vaccinations (ages 5-11), we invite you to visit the [facility] webpage. [email or web address].[email or web address].[email or web address]/pa [email or web address]-Zixru-Woglzakttbh-Freque mgxk-Bgcac-Lkraldkkv.html To learn more about the COVID-19 vaccine, we invite you to visit the CDC website for a list of frequently asked questions. https://www.cdc.gov/coronavirus/2 019-ncov/vaccines/faq.html [facility] Patient Portal Access Instructions: Stay connected with your healthcare team and access your personal medical information anytime with the [facility] Patient Portal. If you would like a full copy of your medical records please contact the [facility] Medical Records Department Wednesday through Wednesday between 8a.m. and 4:30p.m. Please follow the directions below to access the portal: 1.Access the email account you provided upon registration to the [facility].2.Look for an invitation email from [facility].3.Open the email and access the invitation link: Accept Invitation to [facility]4.Fill in the required bowden to create your account. Sign into www.[employer] Bill with your username and password that you created in the above steps to stay up to date. You can then view a summary of results, a summary of your visits, and the ability to download your summaries to your computer or send the information securely to a physician. Remember that your healthcare information is confidential, so carefully consider who you will allow to register on the [facility] Patient Portal for access to your information. You can also access the [facility] Patient Portal on the [employer]e. Simply click on Health Records under Health Data and then click on the [employer] logo. HOW TO SAFELY DISPOSE OF PRESCRIPTION MEDICATIONS Please use one of the following methods to safely dispose of your unused medications. 1.Use a drug disposal kit: the drug disposal pouch allows you to safely discard your old and unused drugs. Ask your nurse to give you one when you are discharged.2.Visit a local take-back location: Many local pharmacies and police departments have programs that collect old and unwanted prescription drugs. Call your local pharmacy or go to http://Microinox.Rentables/1H4Vx4z to find one close to you.3.Make use of household items: Use cat litter or old coffee grounds to dispose medications if other options are not available. Mix your drugs with these household products, seal them in an airtight container and throw it into the garbage. Call [facility]: [phone] to be sure your drugs can be disposed of in this way. Some medicines may require a different approach.4.Never flush your medications down the toilet. IF YOU HAVE BEEN PRESCRIBED AN OPIOIDS FOR PAIN If you have been prescribed an opioid (such as hydrocodone, oxycodone or morphine), it is critical to understand the possible side effects and risks of opioid pain medications. Even when taken as directed, opioids can have several side effects including: Tolerance, meaning you might need to take more of a medication for the same pain relief. Nausea, vomiting and/or constipation. Sleepiness, dizziness, dry mouth, confusion, depression or itching. Physical dependence, meaning you have withdrawal symptoms when a medication is stopped ? this can develop within a few days. KNOW YOUR RESPONSIBILITIES It is important to know exactly how much and how often to take the opioid pain medications you are prescribed. Never take opioids in higher amounts or more often than prescribed. Do not combine opioids with alcohol or other drugs that cause drowsiness, such as benzodiazepines, also known as benzos, including diazepam and alprazolam, muscle relaxants or sleep aids. Never sell or share prescription opioids. This is illegal. Store opioids in a secure place and out of reach of others (including children, family, friends and visitors). The last page(s) of this document has been signed and retained as a CHART COPY Signatures Patient Education Materials Gastroparesis Medication Leaflets My discharge plan and instructions have been reviewed and explained to me and I,BECKI JACKSON understand my current condition and have read and understand these discharge instructions. I have received a written copy of the plan/instructions. If I have questions, I am aware that I should contact my doctor. Patient/Property Manager Signature: Date/Time: Relationship to Patient: ____ Witness Name/Signature: Date/Time: [facility] 08-17-2023 Note ORIGINAL EXAMINATION: CT OF THE ABDOMEN AND PELVIS WITH CONTRAST 08/17/2023 4:47 pm TECHNIQUE: CT of the abdomen and pelvis was performed with the administration of intravenous contrast. Multiplanar reformatted images are provided for review. Automated exposure control, iterative reconstruction, and/or weight based adjustment of the mA/kV was utilized to reduce the radiation dose to as low as reasonably achievable. COMPARISON: None. HISTORY: ORDERING SYSTEM PROVIDED HISTORY: Reason for Exam: PT STATES ABD PAIN X 5 DAYS abdominal pain cant tolerate po intake gastroparesis FINDINGS: The included thoracic structures are unremarkable. No acute osseous abnormality. Sclerotic focus in the left inferior pubic rami most likely represents a bone island. The liver, spleen, pancreas, and adrenal glands are unremarkable. Status post cholecystectomy. Symmetric nephrograms without evidence of hydronephrosis or nephrolithiasis. There is a mixed density renal lesion in the midpole of the right kidney measuring approximately 1.1 x 1 cm on axial series 2, image 54. There is an intermediate attenuation. The ureters are normal in course and caliber. Nonaneurysmal abdominal aorta. No abdominal lymphadenopathy, free fluid, or intraperitoneal free air identified. The large and small bowel are unremarkable. Normal appendix is identified. Small amount of fluid within the endometrial canal, likely physiologic. Urinary bladder is under stented limiting evaluation. No adnexal lesions. Feminine hygiene product noted in the vagina. IMPRESSION: No acute abnormality is identified. A right renal lesion is indeterminate. A nonemergent CT/MR renal protocol is advised for further characterisation. I have personally reviewed the images of this examination and agree with the resident's findings and interpretation. Interpreted by: Perfecto Garcia Preliminary Report By: Magdy Goldman Electronically signed By Perfecto Garcia Dictated Date: 08/17/2023 4:58:27 PM Prelim Date: 08/17/2023 5:05:19 PM Sign Date: 08/17/2023 5:14:43 PM Ordering Provider: [facility] 08-16-2023 Miscellaneous Notes Patient calling. She states in the last 5 days, she has not had any appetite. She has not eaten. When she does eat, she gets this pain under her breasts which shoots down to her hips. She can't keep anything down. She ends up vomiting. She can't even drink the shakes she's supposed to be drinking. She last had a bowel movement today which is diarrhea but this is normal for her. She is also dizzy. Please advise. documented in this encounter [facility] 07-01-2023 History of Present illness Narrative [facility] Gastroparesis/Dysmotility Virtual Follow-Up This encounter was provided via two-way, live video teleconferencing within the guidelines of state licensure rules for new and established patients. I have communicated my name and active licensure. The patient's identity and physical location were verified at the time of this visit. Either the patient or their legal rental sales representative has been informed of the risks and benefits of -- and alternatives to -- treatment through a remote evaluation and consents to proceed with the evaluation remotely. Technical difficulties were not encountered. 20 minutes were spent on the teleconference with the patient. An additional 10 minutes was required for chart review/preparation, documentation, orders, and care coordination. PATIENT NAME: Becki Jackson SERVICE DATE: 07/01/2023 SERVICE TIME: 9:14 AM S/P: 02/03/2023 EGD with Esophageal 54Fr Savery and 20mm Balloon Pyloric Dilation Impression: - The examined portions of the nasopharynx, oropharynx and larynx were normal. - Z-line regular, 38 cm from the incisors. - Gastroesophageal flap valve classified as Hill Grade IV (no fold, wide open lumen, hiatal hernia present). - 2 cm hiatal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 Uncontrolled HTN: denies Recent NH: denies Arrythmias: denies but reports an incidental heart murmur but does not know which Afib: denies Hyperthyroid: denies Aortic Stenosis: denies Liver Failure: denies Increased ICP: denies Previous pain treatments: medications Functional Limitations: The patient's work is unimpaired. Time spent reclining is 50-60 percent of the day (includes time in bed, recliner, sofa, ottoman, etc.). Wellness: How would you describe your diet: poor How many days a week do you exercise: walking - 20 mins/day How many hours do you sleep a night: 3 Emotional Symptoms: include sadness, depression, anxiety, frustration, irritability, and anger The patient has loss of interest, energy, appetite, and sleep The patient denies suicidal ideation. Non-medical stresses: Include relationship conflicts, loss of job, financial problems, and medical problems Family involvement: is rejecting Financial Status: plans to apply for disability Allergies: Reviewed in the EMR Current Medications: Reviewed in the EMR PAST MEDICAL HISTORY Diagnosis Date Anemia ATEENAGER Asthma Depression FRACTURE 18 MONTHS FRACTURE ARM IBS (irritable bowel syndrome) Migraine, unspecified, with intractable migraine, so stated, without mention of status migrainosus Migraine depression PAST SURGICAL HISTORY Procedure Laterality Date COLONOSCOPY SCREENING x2 EGD W/O [facility] SPEC VARICIES INJ x2 KNEE LEFT OP SURGERY 01/2016 KNEE RIGHT OP SURGERY 01/2015 REM LESION TRUNK,ARM, LEG <0.5 CM 04/25/2014 Exc. jeremy cyst upper mid back REMOVAL GALLBLADDER SALPINGECTOMY Bilateral 06/24/2017 B/L Laprascopic Salpingectomy TONSILLECTOMY PRIMARY/SECONDARY <AGE 13 Tonsillectomy AND ADNOIDS Psychiatric History: Bipolar disorder with depression, anxiety (states that she believes she has been dx with DID) Social History Tobacco Use Smoking status: Former Years: 4.00 Types: Cigarettes Quit date: 03/08/2013 Years since quittin.2 Smokeless tobacco: Never Substance Use Topics Alcohol use: No Drug use: No Substance use: She has not used tobacco since 2 months ago. @ has not consumed alcohol since 2013 Drug use: There is no history of recreational substance use. . Family History FAMILY HISTORY Problem Relation Age of Onset Arthritis Mother Heart Mother Thyroid Mother Heart Brother Heart Maternal Uncle Prostate Cancer Maternal Grandfather Emphysema Maternal Grandfather Heart Maternal Grandfather Cancer Paternal Grandfather LUNG AND PANCREATICCANCER Emphysema Paternal Grandfather Anesthesia Problems No Family History Blood Clots No Family History Clotting Disorder No Family History ROS was positive for: Fatigue Abdominal pain Diarrhea Back pain All of the other systems reviewed were negative. OBJECTIVE: PHYSICAL EXAM: GENERAL APPEARANCE: Well appearing, well-hydrated, well nourished and alert SKIN: Head, neck, trunk, and extremities dry, intact and without lesions NECK: negative findings: no asymmetry or scars BACK: mild tenderness to palpation in the thoracic area LUNGS: even and non-labored breathing, normal chest excursion HEART: Edema: no MUSCULOSKELETAL: Spine range of motion normal. Muscular strength intact. NEURO/PSYCH: cranial nerves 2-12 intact, speech normal, mental status intact Normal gait Negative Sukhjinder's Patient was restless IMAGING: none ASSESSMENT: Chronic abdominal pain (primary encounter diagnosis) Gastroparesis Bipolar i disorder, most recent episode (or current) manic ([facility]) Chronic pain syndrome Patient is a 33 year old female who presents with chronic abdominal pain for the last 4-5 years. Currently being worked up by gastroenterology. Has tried several medications without relief. Discussed the comprehensive pain recovery program and ketamine infusions - discussed risk and benefits. Patient verbalized understanding. Discussed the nutrition program - patient might be interested in the future. Discussed the importance of optimizing diet, sleep and exercise. Patient will be trying protein shakes soon to improve her nutrition. Discussed good sleep hygiene and the importance of keeping a sleep schedule. Encouraged the patient to continue her physical activity on a daily basis. PLAN: Further evaluation: continue to follow up with Gastroenterology Nutrition: start protein shakes Therapies: none Sleep: work towards optimizing sleep Medications: continue prescribed medications Interventions: none Infusions: added to the ketamine infusion list 8. Pain Psychology: yes Review, Ask, Review: yes Follow-up: 4 weeks after ketamine infusions or sooner if needed Lucas Hancock PA-C I spent 46 minutes in the visit, with more than 50% of the total [id number] time of the visit in counseling / coordination of care. Important Patient Information: 1. To schedule Pain Recovery appointments or post-injection office visits, please call: [phone] 2. The nursing staff and medical assistants are an integral part of your pain recovery team and will be handling your phone calls and inquiries. 3. Your study results and treatment plan will be discussed during a follow-up appointment. If you do not have a follow-up appointment and wish to discuss any issues directly with me, please call: [phone] to set-up an appointment. 4. MyChart is best used for refill requests or yes or no questions. Anything more complicated will likely require a follow-up appointment that you can schedule by [phone]. 5. It is the practice of the Department to not fill disability or any other insurance-related forms/documentation. All of the office notes, study results, and other documentation as part of your evaluation will be available to you and to your Primary Care Physician (PCP). Use of this material to complete such forms will be at the discretion of your PCP/referring physician. 6. If you are scheduled for a ketamine infusion, you will be contacted regarding specific scheduling instructions in the future by our department. There is no need to contact our department regarding the scheduling process or your estimated wait; you will be contacted once there is an opening. documented in this encounter [facility] 05-24-2023 Instructions Shaina Bolton APRN.CNP - 05/24/2023 2:47 PM EDT 1) Esophagram as scheduled 2)EGD under MAC with biopsies for EOE and possible dilation Must bring armored car driver for EGD that can stay with you throughout procedure and take you back home 3) Continue on buspirone 30 minutes prior to meals TID 4) consider protein shakes such as [employer], Boost, Ensure or Ensure Clear, Premier Protein, or homemade protein shake 5) continue to follow dietary modifications as instructed by Speech Therapy documented in this encounter [facility] 05-24-2023 History of Present illness Narrative New Patient/Consult REASON FOR VISIT Becki Jackson is a 33 year old female who is scheduled for paraesophageal dysphagia at the consult request of Oz Jones MD. My final recommendations will be communicated back to the requesting physician by the way of the shared medical record, fax, or via US Mail. PRESENTING COMPLAINT & HISTORY Ms. Jackson is a 33 year old female with a history of gastroparesis, presenting today with complaints of esophageal dysphagia. -Symptoms of dysphagia started about a year ago. -dysphagia to liquids, feels like liquid is going down into her lungs, causing her to cough -dysphagia to solids, she feels food getting stuck in her chest around the third bite into the meal. Drinking liquids help to push food down. Does not finish meal after this. This occurs with every meal. -reports weight loss, she only eats one meal per day and usually only finishes 1/2 of that meal. Weight loss is about 12lbs. -regurgitation of food happened once or twice last week, but does not happen on a regular basis. -no heartburn, no chest pain -chronic epigastric pain 06/03, tender, can last 48hrs then dissipates -started taking buspirone TID before meals on 05/05/2023, has not noticed symptom improvement -no improvement of dysphagia symptoms with EGD dilation on 02/03/2023 -patient states she is following dietary recommendations given to her by speech therapy. Does patient have achalasia? No GI EVALUATION Reviewed EGD 02/03/2023 with MAC Findings: The examined portions of the nasopharynx, oropharynx and larynx were normal. The Z-line was regular and was found 38 cm from the incisors. The gastroesophageal flap valve was visualized endoscopically and classified as Hill Grade IV (no fold, wide open lumen, hiatal hernia present). A 2 cm hiatal hernia was present. One extrinsic mild stenosis was found 15 cm from the incisors. The stenosis was traversed. A guidewire was placed and the scope was withdrawn. Dilation was performed with a Savary dilator with no resistance at 54 Fr. The dilation site was examined following endoscope reinsertion and showed complete resolution of luminal narrowing. Suspect gastroparesis due to patient symptoms. A TTS dilator was passed through the scope. Dilation with an 18-19-20 mm pyloric balloon dilator was performed. The dilation site was examined following endoscope reinsertion and showed mild mucosal disruption. Estimated blood loss was minimal. The examined duodenum was normal. Impression: - The examined portions of the nasopharynx, oropharynx and larynx were normal. - Z-line regular, 38 cm from the incisors. - Gastroesophageal flap valve classified as Hill Grade IV (no fold, wide open lumen, hiatal hernia present). - 2 cm hiatal hernia. - Extrinsic narrowing of the esophagus. Dilated to 54Fr minimal resistance - Gastroparesis. Dilated to 20mm with mild mucosal breaks - Normal examined duodenum. - No specimens collected. Esophageal Manometry 03/15/2023 Interpretation / Findings LES: high resting pressure, complete relaxation on all swallows. Type I EGJ morphology. Manometric esophageal length is 24.1 cm, body height is 165.1 cm, MELH ratio is 0.14, which is within normal limits. Esophageal body: Supine (10 swallows): 10 swallows with normal peristalsis. Upright (5 swallows): 3 swallows with normal peristalsis, 1 weak, 1 failed. Impressions High resolution esophageal manometry within normal limits. Modified Barium Swallow with Speech Therapy 03/15/2023 PLAN OF CARE: Impression: Evidence of: Pharyngeal dysphagia, Concern for possible esophageal impairment An elevated risk for aspiration: No Swallow Efficiency: Impaired Patient reported allergy (vomiting) to barium though agreeable to proceed as states she took medication prior to study to prevent allergic reaction. Mild tongue base and valleculae/pyriform residuals post swallow, clearing with subsequent swallow. No laryngeal penetration or tracheal aspiration viewed. Increased residuals with thicker consistencies at the level of C7 requiring additional time and liquid wash to clear. Brief esophageal scan revealed retention of solids and thicker consistencies with intermittent retrograde flow below PES. Residuals clearing by end of session. No episodes of regurgitation or emesis. Results, recommendations discussed and written safe swallow guidelines provided and reviewed. GI following and patient scheduled for esophageal manometry and esophagram. RECOMMENDATION: Diet Recommendations: Regular Consistency, Thin Liquids IDDSI Level 0 STRICT Swallowing Precautions Recommendations: Alert (patient should be fully alert for oral intake) Sit upright at 90 degrees for all oral intake Maintain an upright position 20-30 minutes following all oral intake Small single bites/sips Alternate bites and sips Feed / Eat at a slow rate Extended time between presentations Medications crushed via pureed or one at a time whole Use extra moistening agents nortriptyline (PAMELOR) 50 mg capsule Take 50 mg by mouth daily at bedtime. gabapentin (NEURONTIN) 300 mg capsule Take 300 mg by mouth three times daily. prucalopride (MOTEGRITY) 1 mg tab tablet Take 1 tablet (1 mg) by mouth once daily. busPIRone (BUSPAR) 5 mg tablet Take 1 tablet by mouth three times daily. predniSONE (DELTASONE) 20 mg tablet Take 2 tablets (40mg) by mouth 5 hours prior to swallow studies. AND Take 2 tablets (40mg) by mouth 1 hour prior to swallow studies. Confirm timing of administration with radiology. diphenhydrAMINE (BENADRYL) 25 mg capsule Take 2 capsules (50mg) by mouth 5 hours prior to swallow studies. AND Take 2 capsules (50mg) by mouth 1 hour prior to swallow studies. Confirm timing of administration with radiology. baclofen 10 mg tablet Take 1 tablet by mouth twice daily. gabapentin (NEURONTIN) 100 mg capsule Take 200 mg by mouth daily at bedtime. clonazePAM (KLONOPIN) 0.5 mg tablet folic acid 400 mcg tablet Take 400 mcg by mouth once daily. QUEtiapine (SEROQUEL) 300 mg tablet Take 300 mg by mouth daily at bedtime. pantoprazole DR (PROTONIX) 40 mg tablet Take 40 mg by mouth once daily. ondansetron orally disintegrating (ZOFRAN ODT) 4 mg disintegrating tablet 0 Refill(s) albuterol HFA (PROAIR HFA) 90 mcg/actuation inhaler Inhale 2 Puffs as instructed every 4 hours as needed for Wheezing/Shortness of Breath. Iodinated Contrast Media, Penicillins, and Sulfa (Sulfonamide Antibiotics) FAMILY HISTORY Colon Cancer: No Other Cancers: Yes FAMILY HISTORY Problem Relation Age of Onset Arthritis Mother Heart Mother Thyroid Mother Heart Brother Heart Maternal Uncle Prostate Cancer Maternal Grandfather Emphysema Maternal Grandfather Heart Maternal Grandfather Cancer Paternal Grandfather LUNG AND PANCREATICCANCER Emphysema Paternal Grandfather Anesthesia Problems No Family History Blood Clots No Family History Clotting Disorder No Family History PAST MEDICAL HISTORY Diagnosis Date Anemia ATEENAGER Asthma Depression FRACTURE 18 MONTHS FRACTURE ARM IBS (irritable bowel syndrome) Migraine, unspecified, with intractable migraine, so stated, without mention of status migrainosus Migraine depression PAST SURGICAL HISTORY Procedure Laterality Date COLONOSCOPY SCREENING x2 EGD W/O [facility] SPEC VARICIES INJ x2 KNEE LEFT OP SURGERY 01/2016 KNEE RIGHT OP SURGERY 01/2015 REM LESION TRUNK,ARM, LEG <0.5 CM 04/25/2014 Exc. jeremy cyst upper mid back REMOVAL GALLBLADDER SALPINGECTOMY Bilateral 06/24/2017 B/L Laprascopic Salpingectomy TONSILLECTOMY PRIMARY/SECONDARY <AGE 13 Tonsillectomy AND ADNOIDS Social History Tobacco Use Smoking status: Former Years: 4.00 Types: Cigarettes Quit date: 03/08/2013 Years since quittin.2 Smokeless tobacco: Never Substance Use Topics Alcohol use: No Drug use: No REVIEW OF SYSTEMS ROS otherwise negative except per HPI PHYSICAL EXAMINATION LMP 01/26/2023 General - Normal, healthy, cooperative, in no acute distress Able to interact well. Psych - ORIENTATION: normal to time place, person and situation Mood/Affect: AFFECT AND MOOD: Normal Head/Neuro - Normal size and shape Facial appearance normal Pulmonary - respiratory effort normal Extremities- extremities normal, warm, no cyanosis,no clubbing, and no edema Skin - abnormal lesions not visualized Motor - patient seen sitting with Normal appearing strength and coordination Assessment Impression Ms. Jackson has a history of gastroparesis. EGD in January 2023 with esophageal and pylorus dilation with no improvement of symptoms. Reviewed with patient esophageal manometry results. Discussed speech therapy recommendations. Plan -complete esophagram as scheduled -continue buspirone, just started two weeks ago, can take a month or so to notice improvement of symptoms -EGD with esophageal bx for EOE and possible repeat esophageal dilation -Continue to speech therapy recommendations with eating small bites, taking sips of water between bites. Getting up walking, stretching throughout meal. -Consider [employer], Boost, Ensure/Ensure Clear, Premier Protein or homemade protein shakes. Medical Decision Making: Data: Unique source(s) for external note(s) reviewed: 2 Unique test result(s) reviewed: 3+ Unique test(s) ordered: 1 Risk: Moderate: Moderate risk from testing/treatment and Drug management Medical Decision Making Level: 4 - Moderate I spent a total of 45 minutes on the date of the service which included preparing to see the patient, [id number] patient care, completing clinical documentation, obtaining and/or reviewing separately obtained history, performing a medically appropriate examination, counseling and educating the patient/family/caregiver, ordering medications, tests, or procedures, communicating with other HCPs (not separately reported), independently interpreting results (not separately reported), communicating results to the patient/family/caregiver, and care coordination (not separately reported). Shaina Bolton APRN.CENTERPUNCHER May 24, 2023 2:21 PM documented in this encounter [facility] 05-10-2023 Miscellaneous Notes Letter drafted and copy sent to patient via [employer]. Ok to draft letter stating at present due to frequent vomiting and constant nausea she is unable to work. Forwarded request to Dr. Flanagan. Let patient know via [employer] that physician's response to request is pending. Returning call to pt. Pt states she was asked by the ticket taker to provide a letter from one of her [facility] doctors as to why she cannot work. Pt states they are trying to place her in nursing home due to child support. Pt states she cannot keep a job because when she gets one she spends more time in the bathroom due to her puking and pain, and they usually let her go shortly after hiring her. Informed pt Dr. Jones has no restrictions or surgical indications for her to not work at this time. Pt would like to know if Dr. Flanagan could provide anything for her. Tamara DOZIERN, RN Specialty Rotary Operator Becki Gill Jackson is calling Oz Jones DO today to request a letter to take to court on May 19 due to her diagnosis patient stated it needs to include that she can't work for the rest of the year or they will take her to nursing home please advise. Patient has been identified by name and birthdate. Person calling: self Call patient at: on cell [phone] (home) [phone] (cell) Closing statement: Results or non-symptom based questions: Thank you for calling [facility], your call will be returned within the next business day. Chasidy Roman documented in this encounter [facility] 05-05-2023 History of Present illness Narrative FOLLOW UP VIRTUAL VISIT I have communicated my name and active licensure. The patient's identity and physical location were verified at the time of this visit. Either the patient or their legal rental sales representative has been informed of the risks and benefits of -- and alternatives to -- treatment through a remote evaluation and consents to proceed with the evaluation remotely. This visit was conducted as a virtual visit. CHIEF COMPLAINT Patient presents with: Gastroparesis Abdominal Pain Ms. Jackson is here today for follow-up of: Gastroparesis abdominal pain. HPI I saw this patient in follow up for the gi issues by virtual visit. She was last as new patient 12/2022. She had an EGD with dilation of the esoph and pylorus 01/2023. The patient will start baclofen Wednesday. Current Outpatient Medications Medication Sig Dispense Refill predniSONE (DELTASONE) 20 mg tablet Take 2 tablets (40mg) by mouth 5 hours prior to swallow studies. AND Take 2 tablets (40mg) by mouth 1 hour prior to swallow studies. Confirm timing of administration with radiology. 4 tablet 0 diphenhydrAMINE (BENADRYL) 25 mg capsule Take 2 capsules (50mg) by mouth 5 hours prior to swallow studies. AND Take 2 capsules (50mg) by mouth 1 hour prior to swallow studies. Confirm timing of administration with radiology. 4 capsule 0 baclofen 10 mg tablet Take 1 tablet by mouth twice daily. 60 tablet 0 gabapentin (NEURONTIN) 100 mg capsule Take 200 mg by mouth daily at bedtime. nortriptyline (PAMELOR) 25 mg capsule clonazePAM (KLONOPIN) 0.5 mg tablet folic acid 400 mcg tablet Take 400 mcg by mouth once daily. QUEtiapine (SEROQUEL) 300 mg tablet Take 300 mg by mouth daily at bedtime. pantoprazole DR (PROTONIX) 40 mg tablet Take 40 mg by mouth once daily. ondansetron orally disintegrating (ZOFRAN ODT) 4 mg disintegrating tablet 0 Refill(s) albuterol HFA (PROAIR HFA) 90 mcg/actuation inhaler Inhale 2 Puffs as instructed every 4 hours as needed for Wheezing/Shortness of Breath. 1 Inhaler 0 No current facility-administered medications for this visit. ALLERGIES Allergen Reactions Iodinated Contrast * Vomiting Penicillins Hives Sulfa (Sulfonamide * Hives Social History Tobacco Use Smoking status: Former Years: 4.00 Types: Cigarettes Quit date: 03/08/2013 Years since quittin.1 Smokeless tobacco: Never Substance Use Topics Alcohol use: No Drug use: No Medical History: No changes since last visit. REVIEW OF SYSTEMS: GENERAL: weight stable, no fevers. CARDIOVASCULAR: No chest pain, no edema RESPIRATORY: No dyspnea : neg SOCK DRIER: neg The remainder of the review of systems are negative. Reviewed with patient during visit today. PHYSICAL EXAMINATION: [facility] 01/26/2023 Estimated weight: GENERAL APPEARANCE: Well developed and well nourished. SKIN: Skin color, texture, turgor normal. No rashes or lesions. EYES: Conjunctiva normal without icterus. OROPHARYNX: lips, mucosa, and tongue normal, teeth and gums normal NECK: no JVD LUNGS: Normal respirations on RA HEART:pt describes normal heart rythm NEURO: Alert and oriented in no acute distress. ABDOMEN: nondistended EXTREMITIES:Extremities normal, No deformities, No skin discoloration, No edema . Assessment Encounter Diagnosis ICD-10-CM 1. Chronic idiopathic constipation K59.04 prucalopride (MOTEGRITY) 1 mg tab tablet 2. Gastroparesis K31.84 busPIRone (BUSPAR) 5 mg tablet Claire Flanagan DO 05/05/2023 documented in this encounter [facility] 04-22-2023 Miscellaneous Notes Spoke with patient. She saw Dr. Jones before for endoscopy and esophagus dilation. She states the dilation really didn't help. She continues to have issues with swallowing. She states as soon as she takes a bite of food, she gets severe abdominal pain. She has no energy and feels drained. Her pain is sharp in her mid abdominal section around belly button and goes to the back. She is bloated to the point that she had to buy new pants. +BM but watery diarrhea for the past 2 1/2wks +N/V Is there anything she can do until her appt on 05/04? Becki Gill Jackson is calling Oz Jones DO today asking what she can do to help with stomach pain until upcoming appointment. Patient also stating that choking is getting worse. Please contact patient: [phone] (cell) Patient has been identified by name and birthdate. Was an appointment scheduled: Yes: Date/Time: 05/04/2023 at 2:00 PM Closing statement: Symptom Call: Thank you for calling [facility], your call is very important. A nurse will call in approximately 2-4 hours during business hours. If this is an emergency, please contact 911. Odalys Mei Pss documented in this encounter [facility] 03-15-2023 Note HNO ID: [id number] Author: Laura Pedroza CCC-RELIGIOUS ASSISTANT Service: ? Author Type: Speech Language Pathologist Type: Progress Notes Filed: 03/15/2023 2:09 PM Note Text: Episode Visit Count: 1 Therapist That Will Accept/Oversee The Plan Of Care: Laura Pedroza Start of Care Date: 03/15/23 Onset Date: 10/25/18 Patient Identified by Name and Date of : Yes [facility] MODIFIED BARIUM SWALLOW PLAN OF CARE: Impression: Evidence of: Pharyngeal dysphagia, Concern for possible esophageal impairment An elevated risk for aspiration: No Swallow Efficiency: Impaired Patient reported allergy (vomiting) to barium though agreeable to proceed as states she took medication prior to study to prevent allergic reaction. Mild tongue base and valleculae/pyriform residuals post swallow, clearing with subsequent swallow. No laryngeal penetration or tracheal aspiration viewed. Increased residuals with thicker consistencies at the level of C7 requiring additional time and liquid wash to clear. Brief esophageal scan revealed retention of solids and thicker consistencies with intermittent retrograde flow below PES. Residuals clearing by end of session. No episodes of regurgitation or emesis. Results, recommendations discussed and written safe swallow guidelines provided and reviewed. GI following and patient scheduled for esophageal manometry and esophagram. RECOMMENDATION: Diet Recommendations: Regular Consistency, Thin Liquids IDDSI Level 0 STRICT Swallowing Precautions Recommendations: Alert (patient should be fully alert for oral intake) Sit upright at 90 degrees for all oral intake Maintain an upright position 20-30 minutes following all oral intake Small single bites/sips Alternate bites and sips Feed / Eat at a slow rate Extended time between presentations Medications crushed via pureed or one at a time whole Use extra moistening agents RELIGIOUS ASSISTANT Recommendations: Diet, Swallowing Precautions Recommended Consults: GI (following) Results and Recommendations Discussed With: Patient Prognosis: Good Good: current objective clinical presentation Goals for Modified Barium Swallow: created for 03/15/2023 only. The patient will be able to demonstrate adequate return of knowledge of today's fluoroscopic assessment and recommendations to maximize overall safety with oral intake. (baseline = no knowledge). GOAL MET Planned Interventions, Frequency, and Duration: Planned Treatment Interventions: Dysphagia Reduction Training (35660), Dysphagia Treatment (03037), Patient / Caregiver Education/ Training Current Frequency: Discontinue Therapy Services SUGGESTED TREATMENT OBJECTIVES: Assessment of oropharyngeal swallow for possible dysphagia. SUBJECTIVE: Becki Jackson is a 33 year old female seen today for a Modified Barium Swallow (MBS) Study. gagging, regurgitating all po Patient Goals: eat/drink without difficulty OBJECTIVE: MEASURES WITH LEVEL OF FUNCTION: Swallow Position Of Patient During Assessment: Standing Consistencies Presented: Thin Liquids IDDSI Level 0, Mildly Thick Liquids IDDSI Level 2 (Garfield Thick), Moderately Thick Liquids IDDSI Level 3 (Honey Thick), Pureed IDDSI Level 4, Solid Compensatory Strategies Utilized During Assessment: Small Bite/Sip Instrumental Swallow Assessment Type: Modified Barium Swallow Study Modified Barium Swallow Views: Lateral position MBS Consistencies Tested: Thin Barium Liquids, Mildly Thick Barium Liquids (Garfield Thick), Moderately Thick Barium Liquids (Honey Thick), Pureed with Barium Paste, Solid with Barium Paste Oral Phase: As Follows Lip Closure: No labial escape/anterior loss of bolus Tongue Control During Bolus Hold: Cohesive bolus between tongue to palatal seal Bolus Preparation/Mastication: Timely and efficient mastication skills Bolus Transport/Lingual Motion: Brisk tongue motion for A-P movement of the bolus Oral Residue: Trace residue lining oral structures Initiation Of Pharyngeal Swallow: Bolus head at vallecular pit Pharyngeal Phase: As Follows Soft Palate Elevation: No bolus between soft palate/pharyngeal wall Laryngeal Elevation: Complete superior movement of thyroid cartilage with contact of arytenoids to epiglottic petiole Anterior Hyoid Excursion: Complete anterior movement Epiglottic Movement: Partial inversion Laryngeal Vestibular Closure/Height of the Swallow: Complete - no air/contrast in laryngeal vestibule Pharyngeal Stripping Wave: Present, however, diminished Tongue Base Retraction: Trace column of contrast or air between tongue base and pharyngeal wall Pharyngeal Residue: Trace residue within or on the pharyngeal structures Esophageal Clearance In An Upright Position: Esophageal retention with retrograde flow below the pharyngoesophageal segment Penetration-Aspiration Scale for MBSS: Completed Level 1-Material does not enter airway : Regular Consistency, P (more content not included)... [facility] 03-15-2023 Note HNO ID: [id number] Author: RT Romy(R) Service: ? Author Type: Technologist Type: Progress Notes Filed: 03/15/2023 12:25 PM Note Text: Radiology Service Progress Note PATIENT NAME: Becki Jackson DATE OF SERVICE: March 15, 2023 TIME: 12:24 PM PATIENT IDENTITY VERIFICATION COMPLETED USING TWO (2) IDENTIFIERS: Name and Date of confirmed by patient verbally and Name and Date of confirmed by identification band. FALL SCREENING: Has the patient had 2 falls in the last year or 1 fall with injury or currently using an Ambulatory Assistive Device (Walker, Cane, Wheelchair, Crutches, etc.)? No PATIENT GENDER DATA: Female. status: : No status: NO. PATIENT RELEVANT IMPLANT DATA REVIEWED: Not Applicable RADIOLOGY DEPARTMENT: General X-ray: Exam(s) Completed: GI/ Procedure(s): Modified barium swallow with barium contrast PERIPHERAL IV DATA: Not applicable SIGNED BY: RT Romy(R) March 15, 2023 12:24 PM [facility] 03-08-2023 Miscellaneous Notes Returned call to pt, to update on providers recommendations. Pt verbalized understanding. Pt would like to have all the testing done on the same day. Will route to clerical to help schedule. Tamara WELCH, AMARILIS Specialty Rotary Operator Called pt. Was placed on speaker phone with pt and significant other. Pt states any time Barium hits her system she projectile vomits. She states they were able to give her a benadryl cocktail that had some other things in it that she can't recall, before and that helped her. Pt states if she could have that again, she'd be willing to try the Modified Barium. Pt scheduled for other testings this 03/11, informed pt we may have to rearrange dates if she wants all testing done on the same day. Verbalized Understanding. Pt also states she recently went to the ER due to her abd pain, states the pain is by her ribs, under her breasts. Pt's significant other also states she went to the ER for dizziness, lightheadedness, and double vision. She was told she has a UTI, which the pt denies. Pt asking if Dr. Jones can provide her with any pain medications. Will route to the provider to review. Tamara WELCH RN Specialty Rotary Operator documented in this encounter [facility] 03-02-2023 History of Present illness Narrative Images from the original note were not included. [facility] Gastroparesis/Dysmotility Virtual Follow-Up This encounter was provided via two-way, live video teleconferencing within the guidelines of state licensure rules for new and established patients. I have communicated my name and active licensure. The patient's identity and physical location were verified at the time of this visit. Either the patient or their legal rental sales representative has been informed of the risks and benefits of -- and alternatives to -- treatment through a remote evaluation and consents to proceed with the evaluation remotely. Technical difficulties were not encountered. 20 minutes were spent on the teleconference with the patient. An additional 10 minutes was required for chart review/preparation, documentation, orders, and care coordination. PATIENT NAME: Becki Jackson SERVICE DATE: March 02, 2023 SERVICE TIME: 1:18 PM S/P: 02/03/2023 EGD with Esophageal 54Fr Savery and 20mm Balloon Pyloric Dilation Impression: - The examined portions of the nasopharynx, oropharynx and larynx were normal. - Z-line regular, 38 cm from the incisors. - Gastroesophageal flap valve classified as Hill Grade IV (no fold, wide open lumen, hiatal hernia present). - 2 cm hiatal hernia. - Extrinsic narrowing of the esophagus. Dilated to 54Fr minimal resistance - Gastroparesis. Dilated to 20mm with mild mucosal breaks - Normal examined duodenum. - No specimens collected. ASSESSMENT/PLAN: 33 year old female with medical refractory gastroparesis, the etiology of which is most likely idiopathic. There is clinical suspicion for mid/hind-gut dysmotility based on bowel patterns and symptom distribution. Case is further confounded by reported pyloric stenosis and pharyngeal dysphagia the etiology of which is unclear. Now s/p 02/03/2023 EGD with 54Fr Savery Dilation and 20mm Pyloric Balloon Dilation. Both dilations were productive producing minor mucosal breaks. Unfortunately she has demonstrated no symptomatic response and actually increased symptoms particularly with abdominal pain and dysphagia. Currently patient is tolerating a Soft diet, and does not exhibit severe malnutrition/weight loss. Overall patient's presentation is generally peculiar without any clear-cut process at play. Do not feel she is an appropriate candidate for POP/Pyloroplasty, Gastric Stimulator, or RYGB at this time. - Complete previously ordered barium esophagram - Modified Barium Swallow - Esophageal Manometry - GP diet as tolerated - Follow up with Dr. Flanagan as previously scheduled - Follow up with me after completion of testing SUBJECTIVE HPI: There were not intraoperative complications and patient was discharged on POD0. The primary symptom for which patient sought care was Dysphagia and Abdominal Pain. Today, patient Denies resolution of this symptom. The surgical pain associated with the procedure has partially improved. Patient does not require narcotic pain medication for pain control. Patient has been done compliant with Soft diet. Since the procedure, she actually had worsening of symptoms. No improvements. Feels like she can eat less than she was previously. She is still having a lot of issues swallowing and abdominal pains with eating. Diet: Mostly soft foods (mash potatoes yogurt etc). Avoiding meat and vegetables. Weight: Lost about 5lbs, 204-205lbs Reflux: None, but still having a lot of sulfur burps. Dysphagia: Cervical region, solids and liquids, slightly worse since dilation Nausea: Daily moderate Vomiting: Twice per day Pain: Mid abdomen and entire right side radiating to the hip Bowel movements: Still waxing and waning severe constipation and diarrhea. Skips 2-3 day at times. Overall patient is not satisfied with the procedure. If given the option again, patient would elect to have the procedure Gastroparesis Cardinal Symptom Index 1. nausea 4 2. retching 5 3. vomiting 5 4. stomach fullness 5 5. not able to finish a normal-sized meal 5 6. feeling excessively full after meals 5 7. loss of appetite 5 8. bloating (feeling like you need to loosen your clothes) 5 9. stomach or belly visibly larger 5 Scale (0-none; 1-very mild; 2-mild; 3-moderate; 4-severe; 5-very severe) Eckardt Scale (0-3 in each Category) Weight loss (kg) (0-3: None, <5kg, 5-10kg, >10kg) - 1 Dysphagia (0-3: None, Occasional, Daily, Each Meal) - 3 Retrosternal pain (0-3: None, Occasional, Daily, Each Meal) - 0 Regurgitation (0-3: None, Occasional, Daily, Each Meal) - 1 TOTAL: 5 REVIEW OF SYSTEMS: General: Weight gain unknown reason Neuro: No Hx of stroke or seizures Respiratory: Asthma Cardiovascular: Positive for: negative GI: See HPI : No history of UTI in past 6 weeks. No history of renal failure. Not currently on or requiring dialysis. No history of symptoms or problems. SOCK DRIER: Negative for abnormal vaginal bleeding, abnormal vaginal discharge. : Denies Endocrine: No history of diabetes. Has not taken steroids within the past 30 days. No history of endocrinological symptoms or problems. Hematology: No history of bleeding or clotting disorder. Pt is not taking anti-coagulation or platelet medications. No history of hematological symptoms or problems. Oncology: No history of CA metastasis, chemo within 30 days, or radiotherapy within 90 days. Has not lost 10% of body wt in 6 months. No history of oncological symptoms or problems. Psych: Anxiety, Depression, ADHD Musculoskeletal: Back pain and Joint pain Skin: Negative for lesions, rash and itching. OBJECTIVE LMP 01/26/2023 PHYSICAL EXAMINATION: GENERAL: AAOx3, NAD EYES: Non-icteric, EOMI NOSE: Septum midline, no drainage ORAL: Tongue midline, no exudates NECK: Normal ROM PULM: Breathing non-labored without stridor or wheezing ABDOMEN: Reports soft, Non-distended, Non-tender EXTREMITIES: Normal ROM SKIN: Non-icteric, no diffuse rashes PSYCH: Appropriate mood and affect. SIGNATURE: Oz Jones DO PATIENT NAME: Becki Jackson DATE: March 02, 2023 TIME: 1:18 PM Please note that portions of this documentation have been copied from the prior encounter however all information has been appropriately reviewed and modified to reflect the current clinical status and plan of care. documented in this encounter [facility] 02-16-2023 Evaluation + Plan note Future Scheduled TestsXR Spine Lumbar AP/LAT 02/16/23 [facility] 01-29-2023 Nurse Note [facility] ENDOSCOPY PRE PROCEDURE CALL My. I'm calling from [facility] endoscopy to provide you with the information for your surgery/procedure tomorrow. Spoke to: left VM and MC If patient needs to reschedule please call: [phone] DD phone number: [phone] Type of instruction given: Verbal by telephone contact. documented in this encounter [facility] 01-20-2023 Instructions Rosario Howard PA-C - 01/20/2023 1:26 PM EDT PATIENT PREOPERATIVE INSTRUCTIONS Oz Jones DO has scheduled you for your procedure at this surgery center: [facility]: [phone] -- [place] [id number]. Arrival Time for Surgery: - The Surgery Center or hospital where you are having surgery will call the afternoon before surgery (or Wednesday for Wednesday surgery) with a scheduled arrival time. - If you have not heard by 4 pm, please contact the surgery center above. Please be aware that emergency situations arise, which may delay or change your surgical time. If this happens, we will notify you as soon as possible and regret any inconvenience. Please read below carefully for your personalized instructions. Dietary Restrictions: - Nothing to eat or drink after midnight except for a sip of water with approved medications. - PLEASE FOLLOW SURGEON'S INSTRUCTIONS OF CLEAR LIQUIDS DAY PRIOR TO YOUR PROCEDURE. Medications: Unless instructed differently below, stay on all of your medications until your surgery. Approved medications to take the morning of surgery with a sip of water: NORTRIPTYLINE and PANTOPRAZOLE and ALBUTEROL - Please continue your current pain medications. If you start any new medications after today's visit, please contact the surgeon's office. Blood Thinning Medications: - Stop NSAIDS (Ibuprofen, Advil, Aleve, Motrin, Celebrex, Mobic, etc.) 14 days before surgery, as directed by your surgeon. - Stop Aspirin 7 days before surgery, as directed by your surgeon. - Stop Vitamin E, ALL multi-vitamins, herbals and dietary supplements 14 days before surgery. - You may take Tylenol (Acetaminophen) or any of your pain medications that do not contain aspirin or NSAIDS as needed. Important Reminders: - If you use CPAP/BIPAP, bring the machine with you to the surgery center. - Candy, mints, and tobacco products are NOT permitted the morning of surgery. - Hearing aids, dentures and glasses may be worn the morning of surgery. - NO jewelry, body piercings, makeup, hairpins or contacts are to be worn the day of surgery. If you develop symptoms such as a fever, cold, or flu, or have other changes to your health within TWO DAYS of scheduled surgery or the morning of surgery, please contact the surgery center above. Personal Belongings: -Please have photo ID and insurance cards. -If you do not have a copy of advance directives on file with us, please bring a copy with you on the day of surgery. - Leave ALL valuables and money at home or with family members. For Outpatient Procedures: - YOU MUST HAVE A RESPONSIBLE MANAGER IMMUNOLOGY TAKE YOU HOME. A ASSISTANT PRODUCT MANAGER OR RESEARCH COORDINATOR CANNOT BE MADE A RESPONSIBLE MANAGER IMMUNOLOGY. - We recommend that a responsible person stays with you overnight to take care of you. - You cannot stay in a hotel alone after outpatient surgery. You will not be permitted to have your surgery, if you do not have someone to take care of you. If you already have an Advance Directive, please fax a copy to [phone] or email to for it to be added to your chart. If you do not have an Advance Directive, you can find the appropriate form and more information at [email or web address]. We recommend that you complete the Advance Directive form found on the website and bring it with you the day of your surgery. It can be witnessed and scanned into your chart that day. Rosario Howard PA-C documented in this encounter [facility] 01-20-2023 History and physical note Surgeon: Oz Jones DO Type of surgery: GEN SURG: EGD Patient scheduled for surgery on 02/03/2023 . Surgery Location: [facility] Diagnosis: Gastroparesis Electronic cigarette use Class 2 obesity with body mass index (bmi) of 36.0 to 36.9 in adult, unspecified obesity type, unspecified whether serious comorbidity present Pre-op evaluation (primary encounter diagnosis) BP [BP from 01/05/2023 reviewed at 139/70[ Pulse 92[stated normal history of[ Temp [does not have a thermometer available - feeling well[ Ht 5' 5 (1.65m) Wt 220 lb (99.8kg) LMP 01/04/2023 BMI 36.61 kg/(m^2). This is a virtual visit using Vidient video visit. It required patient-provider interaction for the medical decision making as documented below. I have communicated my name and active licensure. The patient's identity and physical location were verified at the time of this visit. Either the patient or their legal rental sales representative has been informed of the risks and benefits of and alternatives to treatment through a remote evaluation and consents to proceed with the evaluation remotely. H&P completed: by Dr. Jones on 01/05/2023. Please see encounter in [facility] for further documentation. Social History Tobacco Use Smoking status: Former Years: 4.00 Types: Cigarettes Quit date: 03/08/2013 Years since quittin.8 Smokeless tobacco: Never Substance Use Topics Alcohol use: No Drug use: No gabapentin (NEURONTIN) 100 mg capsule Take 200 mg by mouth daily at bedtime. nortriptyline (PAMELOR) 25 mg capsule clonazePAM (KLONOPIN) 0.5 mg tablet folic acid 400 mcg tablet Take 400 mcg by mouth once daily. QUEtiapine (SEROQUEL) 300 mg tablet Take 300 mg by mouth daily at bedtime. pantoprazole DR (PROTONIX) 40 mg tablet Take 40 mg by mouth once daily. ondansetron orally disintegrating (ZOFRAN ODT) 4 mg disintegrating tablet 0 Refill(s) albuterol HFA (PROAIR HFA) 90 mcg/actuation inhaler Inhale 2 Puffs as instructed every 4 hours as needed for Wheezing/Shortness of Breath. ALLERGIES Allergen Reactions Iodinated Contrast * Vomiting Penicillins Hives Sulfa (Sulfonamide * Hives COVID VACCINATION STATUS: Not vaccinated PHYSICAL EXAMINATION: Alert and oriented, No acute distress, Healthy appearance, Obese Patient palpated radial pulse, regular when counted aloud by patient. Capillary refill is less than 3 seconds in bilateral upper extremities. Equal chest rise with normal respiratory effort PAIN ASSESSMENT: VITALS: BP [BP from 01/05/2023 reviewed at 139/70[ Pulse 92[stated normal history of[ Temp [does not have a thermometer available - feeling well[ Ht 5' 5 (1.65m) Wt 220 lb (99.8kg) LMP 01/04/2023 BMI 36.61 kg/(m^2). Diagnostic tests reviewed for today's visit: Lab Value Units Date High Low HB No results within date range. HCT No results within date range. WBC No results within date range. PLT No results within date range. NA No results within date range. K No results within date range. GLUC No results within date range. BUN No results within date range. CREAT No results within date range. PTSEC No results within date range. INR No results within date range. APTT No results within date range. ALT No results within date range. AST No results within date range. TBILI No results within date range. TSH No results within date range. Lab Value Units Date High Low HCGQT No results within date range. UHCG No results within date range. HCG, BODY* No results within date range. Lab Value Units Date High Low ABORHD No results within date range. ABSCREEN No results within date range. No results found for: HBA1C No results found for this or any previous visit (from the past 8760 hour(s)). No results found for this or any previous visit (from the past 68608 hour(s)). Assessment Patient has the following medical conditions which may affect yesenia-operative course: Gastroparesis Assessment: following with GI Reflux controlled with medication Electronic cigarette use Assessment: daily use; contains nicotine Obesity Assessment: Body mass index is 36.61 kg/m . Ptael Activity Status Index: METS: Climb a flight of stairs or walk up a hill (5.50 METs) DASI Score: 5.5 Patient denies any chest pain or undue shortness of breath with the above physical activity. Clinical Frailty Scale: 3. Well, with treated comorbid disease STOP-Bang Score: BMI greater than 35 kg/m^2 Denies snoring loudly Denies feeling tired, fatigued, or sleepy during the daytime Has not been observed to stop breathing or choking/gasping during sleep Denies having high blood pressure Patient 50 years old or younger Does not have a large neck Non-male patient STOP-Bang Score: 1 [id number] Score: [id number] Score: 0 ASA Class: 2 ANESTHESIA FINDINGS: Intubation History: No history of difficult intubation. No abnormal airway history Significant Anesthesia Considerations: none Airway History: No prior anesthesia report available for review at this time. No history of difficult airway No abnormal airway history I - PHYSICAL EVALUATION AIRWAY Patient intubated: No. Tracheostomy tube not present Mallampati: II. TM distance: >3 FB. Neck ROM: full ROM without neurological symptoms. Mouth opening: adequate. Short neck: no. Thick neck: no Lux present: no Lip Bite Test: I Microretrognathia/Micronagthia/Re cessed Chin: No DENTAL Dental findings: broken tooth and poor dentition. Additional comments: Broken top right and left - just the roots, dentist said to leave for now Other chipped teeth - no sharp edges Denies any dental pain or infections. . II - ANESTHESIA PLAN ASA Score: 2 Anesthetic Plan: other Anesthetic plan additional comments: *PACC/TCI - anesthesia choice. Beta Viktoria Monitoring Plan Post Procedure Analgesic Plan Prepared for Surgery: optimally prepared for surgery, pending [see comment]. LABS- ordered by other provider and EKG in case POP is performed per pt CONSULTS: Patient does not require consults for optimization at this time Planned Anesthetic: other anesthesia choice The Following Tests/Procedures Have Been Initiated: Orders Placed This Encounter gabapentin (NEURONTIN) 100 mg capsule Sig: Take 200 mg by mouth daily at bedtime. nortriptyline (PAMELOR) 25 mg capsule clonazePAM (KLONOPIN) 0.5 mg tablet folic acid 400 mcg tablet Sig: Take 400 mcg by mouth once daily. QUEtiapine (SEROQUEL) 300 mg tablet Sig: Take 300 mg by mouth daily at bedtime. pantoprazole DR (PROTONIX) 40 mg tablet Sig: Take 40 mg by mouth once daily. ondansetron orally disintegrating (ZOFRAN ODT) 4 mg disintegrating tablet Si Refill(s) ECG COMPLETE Standing Status: Future Standing Expiration Date: 01/21/2024 Instructions Given to Patient: Instructions located in the after visit summary. Patient given verbal and written preop instructions and voices comprehension and compliance. SIGNATURE: Rosario Howard PA-C PATIENT NAME: Becki Jackson DATE: January 20, 2023 TIME: 1:02 PM PAGER/CONTACT #: documented in this encounter [facility] 01-13-2023 Miscellaneous Notes Pt called back, she said she sat up today and felt or heard a pop in her stomach. Patient said her symptoms are the same. Advised her to go back to ED. Destiny Pearson LPN Called patient. She went to the ER in [place], [place] on Wednesday. ([facility]) She has been vomiting 4 x a day since Wednesday. She is having abdominal pain and severe bloating. ER gave her a shot of Reglan which didn't help. They did a CT Scan but she didn't hear what the results are. She was given one bag of fluids. She is nauseous / she does not have anything for nausea (used to take zofran which helps) She is moving her bowels. She is drinking OJ, yogurt, gatorade. Her abdominal pain is from below her breasts to her umbilical and radiates to her back. Asking for advice and RX for zofran. She can't get comfortable. documented in this encounter [facility] 01-05-2023 History of Present illness Narrative Procedure pended for 02/03. Pre-op instructions reviewed with the pt. Pt aware of clear liquids only the day before and the need for PACC. Follow up appt scheduled. Direct number provide for future reference. No other questions at this time. Tamara WELCH, RN Specialty Rotary Operator Images from the original note were not included. [facility] Gastroparesis/Dysmotility Consultation SERVICE DATE: 01/05/2023 SERVICE TIME: 1:27 PM PRIMARY CARE PHYSICIAN: WENDIE Rice PA [address] [id number] My final recommendations will be communicated back to the requesting physician by way of shared Medical record or letter to requesting physician via US mail. Assessment ASSESSMENT 32 year old female with medical refractory gastroparesis, the etiology of which is most likely idiopathic. There is clinical suspicion for mid/hind-gut dysmotility based on bowel patterns and symptom distribution. Case is further confounded by reported pyloric stenosis and pharyngeal dysphagia the etiology of which is unclear. She had no benefit from 36 Azeri savory dilation of the esophagus and pylorus(?). Currently patient is tolerating a Soft diet, and does not exhibit malnutrition/weight loss. Overall patient's presentation is generally peculiar without any clear-cut process at play. Based on patient's etiology, current symptoms, and dysmotility workup, I uncertain that patient is an appropriate candidate for pyloric therapy. It was discussed in detail that the procedure would primarily aim to improve symptoms of vomiting/retching as well as delayed fullness. There may be some ancillary improvements to a lesser extent in areas of nausea and upper abdominal pressure, but is not guaranteed. Symptoms response of pain, nausea, bloating, and bowel patterns are unpredictable and may be confounded by other factors. Patient will ultimately require longitudinal adjunctive care including medical, nutritional/dietary, and behavioral/psychosocial support for optimal symptom palliation PLAN I discussed surgical therapy for gastroparesis in detail. Based on this discussion, Becki Jackson wishes to proceed with endoscopic evaluation and dysmotility work up Schedule upper endoscopy with esophageal savory dilation and pyloric dilation Gastroparesis diet as tolerated Unfortunately patient cannot have barium swallow due to reported allergy (severe vomiting?) And declines to proceed with this testing. May require manometry in the future Follow-up abdominal x-ray and autoimmune gastroparesis labs Follow-up with me 3-4 weeks after endoscopy for reassessment and further discussions. Risks of the procedure including bleeding (including major bleeding requiring transfusion), perforation, infection/abscess, ulceration (need for adherence to acid suppressive therapy), exacerbation of symptoms, symptom recurrence, anesthesia related complications, cardiopulmonary events, thromboembolic events, aspiration/pneumonia, dental gum injury, failure to identify/treat a condition, need for additional procedures/surgeries, as well as other rare complications including were presented. Alternatives of Pyloroplasty, Pyloric Dilation and Botox, and continued medical/dietary management were reviewed. Patient elects to proceed and full written consent was obtained. ____ NAME: Becki Jackson CLINIC NO: [id number] DATE OF SERVICE: January 05, 2023 This is an initial consultation for Becki Jackson who was referred to me by Dr. Claire Flanagan for evaluation of medical refractory gastroparesis. My final recommendation will be communicated via shared electronic medical record. CHIEF COMPLAINT Idiopathic Gastroparesis, Dysphagia HISTORY OF PRESENT ILLNESS Becki Jackson is a 32 year old female who comes in today for surgical evaluation for management of gastroparesis. The patient has been evaluated thoroughly including an EGD, and gastric emptying study. History is notable for depression/anxiety, bipolar, ADHD, chronic back pain, vascular fragility, hiatal hernia, migraine, IBS, tubal ligation, and cholecystectomy Top 3 Symptoms: 1) Pain, 2) Bloating, 3) Overall Daily Function Reports that GI symptoms began to change in the early mostly with fullness, satiety, and loss of energy. In 2020 patient began to have rapid progression of symptoms with belching and abdominal pains. Duration of symptoms (months): 2020, but possibly 10 years prior Diet: Regular diet, small portions. Eats 5 bites and feels full. But dysphagia is also a barrier Weight changes in last 3 months: Gaining weight, unsure how since she isn't eatint GERD: None Dysphagia: yes, Pharyngeal/Cervical, solids, every meal Bowel Movements: Variable constipation and diarrhea. Skips 1 day Pain: Mostly a band in her upper abdomen sharp and pressure. Constant. Eating increases pain, particularly with pizza and red sauce. Narcotics: none Smoking/Vaping: Smoke <1/4 PPD, previously 1PPD x 10 year THC: None Previous surgery: 2020 Laparoscopic Cholecystectomy, Laparoscopic Tubal Ligation Previous Feeding tube(s): None EGD with Botox: None. Did have 36Fr Savery dilation of pylorus?? 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 After 1 hour, there is 84% gastric retention normal. A T1 half is 265 mins which is prolonged. SMART Pill (N/A) Not Ordered EGG (N/A) Not ordered Gastroparesis cardinal symptom index 1. nausea 3 2. retching 2 3. vomiting 3 4. stomach fullness 5 5. not able to finish a normal-sized meal 5 6. feeling excessively full after meals 5 7. loss of appetite 5 8. bloating (feeling like you need to loosen your clothes) 5 9. stomach or belly visibly larger 5 GCSI - 4.22 Scale (0-none; 1-very mild; 2-mild; 3-moderate; 4-severe; 5-very severe) PAST HISTORY PAST MEDICAL HISTORY Diagnosis Date Anemia ATEENAGER Depression FRACTURE 18 MONTHS FRACTURE ARM IBS (irritable bowel syndrome) Migraine, unspecified, with intractable migraine, so stated, without mention of status migrainosus Migraine depression PAST SURGICAL HISTORY Procedure Laterality Date KNEE LEFT OP SURGERY 01/2016 KNEE RIGHT OP SURGERY 01/2015 REM LESION TRUNK,ARM, LEG <0.5 CM 04/25/14 Exc. jeremy cyst upper mid back REMOVAL OF TONSILS,<12 Y/O Tonsillectomy AND ADNOIDS SALPINGECTOMY Bilateral 06/24/2017 B/L Laprascopic Salpingectomy FAMILY HISTORY Problem Relation Age of Onset Arthritis Mother Heart Mother Thyroid Mother Prostate Cancer Maternal Grandfather Emphysema Maternal Grandfather Heart Maternal Grandfather Cancer Paternal Grandfather LUNG AND PANCREATICCANCER Emphysema Paternal Grandfather Heart Brother Heart Maternal Uncle Social History Tobacco Use Smoking status: Former Years: 4.00 Types: Cigarettes Quit date: 03/08/2013 Years since quittin.8 Smokeless tobacco: Never Substance Use Topics Alcohol use: No Drug use: No Current Outpatient Medications on File Prior to Visit Medication Sig albuterol HFA (PROAIR HFA) 90 mcg/actuation inhaler Inhale 2 Puffs as instructed every 4 hours as needed for Wheezing/Shortness of Breath. acetaminophen 325 mg-caffeine 40 mg-butalbital 50 mg (FIORICET) per tablet Take 1 tablet by mouth every 4 hours as needed. citalopram (CELEXA) 20 mg tablet Take 1 tablet by mouth once daily. Gbukeksu-Li-Fit-Fe-FA ( FORMULA) tab Take 1 tablet by mouth. No current facility-administered medications on file prior to visit. REVIEW OF SYSTEMS: General: Weight gain unknown reason Neuro: No Hx of stroke or seizures Respiratory: Asthma Cardiovascular: Positive for: negative GI: See HPI : No history of UTI in past 6 weeks. No history of renal failure. Not currently on or requiring dialysis. No history of symptoms or problems. SOCK DRIER: Negative for abnormal vaginal bleeding, abnormal vaginal discharge. : Denies Endocrine: No history of diabetes. Has not taken steroids within the past 30 days. No history of endocrinological symptoms or problems. Hematology: No history of bleeding or clotting disorder. Pt is not taking anti-coagulation or platelet medications. No history of hematological symptoms or problems. Oncology: No history of CA metastasis, chemo within 30 days, or radiotherapy within 90 days. Has not lost 10% of body wt in 6 months. No history of oncological symptoms or problems. Psych: Anxiety, Depression, ADHD Musculoskeletal: Back pain and Joint pain Skin: Negative for lesions, rash and itching. Physical Exam BP 139/70 Pulse 105 LMP 07/10/2016 (Exact Date) GENERAL: AAOx3, NAD obese EYES: EOMI, sclera non-icteric ORAL: Moist membranes, tongue midline NECK: No Cervical LN, normal ROM CARDIOVASCULA: RRR PULMONARY: CTAB ABDOMEN - Soft, ND, NT EXTREMITIES: Warm, well perfused, No LE Edema PSYCH: Appropriate mood and Affect SIGNATURE: Oz Jones DO PATIENT NAME: Becki Jackson DATE: January 05, 2023 TIME: 1:27 PM Medical Decision Making: Problems: Moderate: New problem with uncertain prognosis Data: Unique source(s) for external note(s) reviewed: 3+ Unique test result(s) reviewed: 3+ Unique test(s) ordered: 2 Risk: Moderate: Moderate risk from testing/treatment Medical Decision Making Level: 4 - Moderate documented in this encounter [facility] 01-05-2023 Miscellaneous Notes Addended by: CLAIRE FLANAGAN on: 01/05/2023 01:28 PM Modules accepted: Orders documented in this encounter [facility] 01-05-2023 Nurse Note What is the reason for your visit today? Gastroparesis Who is your referring physician? Are you having poor oral intake? YES Have you had unintentional weight loss of 15 lbs/7 Kg in the last 3-6 months? NO Bowels: constipated or diarrhea Wound: n/a Temperature: No Drains: No documented in this encounter [facility] 01-05-2023 History of Present illness Narrative GASTROPARESIS CONSULT Patient is referred by Dr. Fortino Stapleton for an opinion regarding GP and my final recommendations will be communicated back to the requesting physician by way of a copy of today's office notes. PRESENTING COMPLAINT & HISTORY Becki is a 32 yr old female w/hx of depression/anxiety, bipolar, ADHD, chronic back pain, vascular fragility, hiatal hernia, migraine, IBS, tubal ligation, and cholecystectomy that had an abnormal gastric emptying study 03/2022. Symptoms started about 10 years ago with milder GI symptoms that have since progressed. Ongoing bloating that is severe with enlarged abdomen. Continuous stomach cramping/pain that is worse with eating. Eats 5-8 bites of food and then feels like she's chocking and its not going down. Diet: eats once per day, small portion. Has diarrhea and constipation - not consistent. The most without a bm is usually a day. Doesn't feel like she completely empties stool with bm. Severe nausea with mild vomiting - prn Zofran. Failed Reglan and Erythromycin. Gastroparesis Symptoms Reflux/heartburn: No Abdominal pain/discomfort: Yes continuous abdominal pain that is in her stomach. Pain worse with eating. Weight loss: no Weight gain: Yes Gained 20 lbs in 6 months Diarrhea: Yes intermittent - can come on and last for a week. Constipation: Yes average bm is usually once per day. No laxatives. Can go a day without a bm. When she doesn't go, doesn't feel like she completely evacuates. Malnutrition: no Gastroparesis cardinal symptom index 1. Nausea: 4 2. Retchin 3. Vomitin 4. Stomach fullness: 5 5. Not able to finish a normal-sized meal: 5 6. Feeling excessively full after meals: 5 7. Loss of appetite: 5 8. Bloating (feeling like you need to loosen your clothes): 5 9. Stomach or belly visibly larger: 5 Scale (0-none; 1-very mild; 2-mild; 3-moderate; 4-severe; 5-very severe) MEDICATION HISTORY Promotility Drugs - Reglan (Metoclopramide): Yes tried and failed - Motilium (Domperidone): No - Erythromycin (E-mycin): yes tried and failed - Propulsid (Cisapride)_: No Other - Tricyclic Antidepressants (nortriptyline - Pamelor; amitriptyline - Elavil): Yes - Buspirone (Buspar): tried in the past - Mirtazapin (Remeron): tried in the past Anti-Nausea Medications - Compazine (Prochlorperazine): No - Phenergan (Promethazine): Yes - Benadryl (Diphenhydramine): yes in the past - Zofran (Ondansetron): Yes prn doesn't help much - Scopace (Scopolamine Patch): No - Tigan (Trimethobenzamide)_: No Constipation Medications - Bulking Agents (Metamucil,Citrucel, Fibercon): No - Osmotic Laxatives (MOM, Polyethylene glycol (PEG), lactulose, sorbitol,MiraLax, Chronulal, Cephulac,Xylitol): No - Stimulant Laxatives (Ex-Lax, Senokot,Correctol, Dulcolax): No - Stool Softeners (Colace): No - Chloride Channel Activator (Amitiza): No - Linzess: No - Trulance: No - Motegrity: No Pain Medications - Does the patient see a depilatory painter for chronic abdominal pain?No - Is the patient taking narcotic pain medication for chronic abdominal pain? No - Narcotic Medications: (Tramadol, Fentanyl, codeine, hydrocodone, Hydromorphone, methadone, morphine, Oxycodone) No Drug use - History or current drug use (Marijuana, Cocaine, Heroine, etc...) No Eating Disorders - Does the patient have a history of eating disorders No Psychiatric Disorders - Does the patient have a history of psychiatric disorders including PTSD: Yes If yes, please explain: anxiety, depression, ADHD and bipolar Nutrition - Has the patient met with a auto garage mechanic for diet recommendations with Gastroparesis? No - Jejunostomy (J-tube): _No - Gastrostomy (G-tube): No - Gastro-Jejunostomy (GJ-tube): _No - Nasojejunal (NJ-tube): _No - Nasogastric (NG-tube): _No - TPN (IV): _No - IV home hydration (IV): _No Medical Records - Has the patient had a smart capsule study completed? No - Does the patient have a history of any foregut surgery (vagotomy, hiatal hernia repair/GABBY Fundoplication, Heller Myotomy, gastrectomy, gastric bypass)?No If surgery, recent UGI? No - EGD: Yes - Botox Injections: No Patient Name Becki Jackson Age [age] year old Gastroparesis Consult Test Date Completed Results Labs EGD 06/23/2022 osh Impression: - normal esophagus - Z line irregular, 39 cm from the incisors. Biopsied - medium sized hiatal hernia - a medium amount of food in the stomach - gastric stenosis was found at the pylorus. Dilated - one non bleeding duodenal ulcer with no stigmata of bleeding. Biopsied. Pathology: A. Duodenum, biopsy - fragments of duodenal mucosa with mild nonspecific chronic inflammation and Uday gland hyperplasia B. Distal esophagus, biopsy - fragment of gastroesophageal mucosa with chronic inflammation. Intestinal metaplasia (goblet cell metaplasia) not identified. C. Terminal ileum, biopsy - fragments of small intestinal mucosa, no pathologic diagnosis. D. Colon, random biopsy - fragments of colonic mucosa no path diagnosis. EGD 07/09/2021 osh Impression: - Irregular Z line 39 cm, esophagitis, medium hiatal hernia; medium amount of food residue; pyloric stenosis, savary dilator 36F; nonbleeding gastric ulcer; Uday gland hyperplasia. Pathology: colonoscopy 06/23/2022 [facility] Impression: - the examined portion of the ileum was normal. Biopsied. - stool in the recto sigmoid colon, in the sigmoid colon, at the hepatic flexure and in the ascending colon. Biopsied. Pathology: Gastric Emptying Study 04/09/2022 [facility] Findings: Normal uptake is seen within the stomach with passage through the duodenum into the small bowel. After 1 hour, there is 84% gastric retention normal. A T1 half is 265 mins which is prolonged. CT Abd/Pelvis 06/02/22 osh Impression: Findings consistent with nonobstructing calculus in the distal right ureter previously seen in the renal collecting system on study in April. Consults GI PAST SURGICAL HISTORY Procedure Laterality Date KNEE LEFT OP SURGERY 01/2016 KNEE RIGHT OP SURGERY 01/2015 REM LESION TRUNK,ARM, LEG <0.5 CM 04/25/14 Exc. jeremy cyst upper mid back REMOVAL OF TONSILS,<12 Y/O Tonsillectomy AND ADNOIDS SALPINGECTOMY Bilateral 06/24/2017 B/L Laprascopic Salpingectomy Current Outpatient Medications Medication Sig Dispense Refill albuterol HFA (PROAIR HFA) 90 mcg/actuation inhaler Inhale 2 Puffs as instructed every 4 hours as needed for Wheezing/Shortness of Breath. 1 Inhaler 0 acetaminophen 325 mg-caffeine 40 mg-butalbital 50 mg (FIORICET) per tablet Take 1 tablet by mouth every 4 hours as needed. 10 tablet 0 citalopram (CELEXA) 20 mg tablet Take 1 tablet by mouth once daily. 30 tablet 4 Epfqgyac-Dr-Dix-Fe-FA ( FORMULA) tab Take 1 tablet by mouth. No current facility-administered medications for this visit. ALLERGIES Allergen Reactions Penicillins Hives Sulfa (Sulfonamide * Hives Family History Problem Relation Age of Onset Arthritis Mother Heart Mother Thyroid Mother Prostate Cancer Maternal Grandfather Emphysema Maternal Grandfather Heart Maternal Grandfather Cancer Paternal Grandfather LUNG AND PANCREATICCANCER Emphysema Paternal Grandfather Heart Brother Heart Maternal Uncle Social History Tobacco Use Smoking status: Former Years: 4.00 Types: Cigarettes Quit date: 03/08/2013 Years since quittin.8 Smokeless tobacco: Never Substance Use Topics Alcohol use: No Drug use: No GI SPECIFIC ROS Difficulty swallowing / foods sticking in throat: Yes Hoarseness: No Chronic cough: No Regurgitation: Yes Chest pain: No Recent change in bowel movements: No Bloody or black, bowel movements: No Loss of control of bowel movements: No Night sweats, fever, chills: No Thought or memory problems: No Fluid in abdomen (ascites): No Prominent leg swelling: No Vomiting blood: No REVIEW OF SYSTEMS GENERAL: No weight loss, malaise or fevers HEENT: No changes in hearing or vision, no nose bleeds or other nasal problems RESPIRATORY: Negative for cough, hemoptysis, wheezing, COPD, dyspnea or shortness of breath CARDIOVASCULAR: Negative for chest pain, leg swelling, hypertension, CHF or palpitations : No history of dysuria, frequency or incontinence SOCK DRIER: Negative for abnormal vaginal bleeding, abnormal vaginal discharge MUSCULOSKELETAL: Negative for joint pain or swelling, back pain or muscle pain SKIN: Negative for lesions, rash, and itching PSYCH: sleep fragmented ENDOCRINE: Negative for cold or heat intolerance, polyuria, polydipsia and goiter NEURO: No history of headaches, syncope, paralysis, seizures or tremors PHYSICAL EXAMINATION LMP 07/10/2016 General appearance: alert and in no acute distress Skin: Skin color, texture, turgor normal, no suspicious rashes or lesions Head: normal Eyes: Anicteric sclera. Pupils are equally round and reactive to light. Extraocular movements are intact. Ears: Negative Nose/Sinuses: Negative Oropharynx: Lips, mucosa, and tongue normal, teeth and gums normal, oropharynx normal Neck: Supple, no adenopathy; thyroid symmetric, normal size, no bruits Back: motor and sensory appear to be normal Lungs: Unlabored on room air Heart: RRR without murmur, gallop, or rubs. No ectopy Abdomen: Normal abdominal exam Extremities: Negative findings: No deformities present Musculoskeletal: No joint swelling or tenderness Peripheral pulses: Normal Neuro: Negative findings: speech normal, mental status intact, cranial nerves 2-12 intact Plan Given the risk of autoimmune gastrointestinal dysmotility (AGID) as a possible cause for this patient's symptoms, as well as the fact the patient has yet to be evaluated for AGID, a full workup will be undertaken. If the antibody tests reveal a positive result the patient will then need to be treated with IVIG therapy as this is the only known treatment available at this time for AGID. Encounter Diagnosis ICD-10-CM 1. Gastroparesis K31.84 CK CREATINE KINASE LD LACTATE DEHYDRO HGB A1C TSH BLD T4 FREE/FREE THYROX AMINO ACIDS, PLASMA W/ CONSULTATION CARNITINE FREE/TOTAL, PLASMA ACETYLCHOLINE REC BINDING AB VOLTAGE GATED CA IGG VOLTAGE-GATED POTASSIUM MCDERMOTT AB GLUTAMIC AC DECARBOXYLASE AB ORGANIC ACIDS UR, QUANT W/CONSULTATION IGA BLD IGG IGM C-REACTIVE PROTEIN (CRP) SED RATE WESTERGREN CYTOKINE PANEL 13, SERUM ESTROGEN FRACTION BL 2. Chronic idiopathic constipation K59.04 XR ABDOMEN 1V SUPINE 3. Esophageal dysphagia R13.19 XR ESOPHAGRAM Claire Flanagan DO 01/04/2023 documented in this encounter [facility] 11-12-2022 Miscellaneous Notes Her EGD showed pyloric stenosis. Needs to see me and surgery Patient's GES and GI records are in scanned documents ready for review,. documented in this encounter [facility] 11-05-2021 Hospital Discharge instructions Patient Education 11/05/2021 13:44:29 8- Post Op General Surgery (09/2020)(CUSTOM) What to Do After Your General Surgery This sheet will give you general information on what to do when you are home after surgery. However, you should always follow any specific instructions given to you by your surgeon. Pain Medication Please follow the directions on the label of your medication and use your discharge medication list provided by the hospital. Do not take pain medication on an empty stomach. This may cause a stomachache. Constipation is common while taking oral pain medication after surgery. Use a stool softener (Colace) or gentle laxative (milk of magnesia) if needed. As soon as your pain allows, use less of any narcotic pain medication. You may take phbz-vrs-scdfyqq pain medication if you no longer need your prescribed pain medication. Ampm-ldd-qdqqmpy pain medications are Tylenol or Advil/Motrin (ibuprofen). Do not take Tylenol if you are still taking [place] or Percocet. They are the same type of medication, and too much acetaminophen can hurt your liver. Activity It is OK to use stairs. Do not lift more than 15 pounds. After surgery, you may feel tired. Rest is important for healing. Slowly increase your activity level by walking and doing normal activities as you feel comfortable. Do not drive while taking narcotic pain medication. They should be out of your system for [address]. Diet Eating smaller meals instead of three large meals is good. This may help with your appetite and nutrition. Good nutrition will help you heal. Follow diet instructions that you were taught after surgery. Infection Prevention Washing your hands is one of the best ways to prevent infection. Always wash your hands before and after touching your incision or bandage. Hands carry germs that can cause infections. Try not to touch your incision. Keep the Incision Clean Wear clean, loose-fitting clothes to prevent clothes from rubbing on the incision. Put clean sheets on your bed when you get home. Do not let other people or animals touch the incision. Showering You may start to shower 48 hours after your surgery. Use a clean washcloth and towel on your incision before you use it on any other area of your body. Adjust the shower spray to gentle and use warm water. Gently wash over your incision using antibacterial soap and water and pat it dry. Do not rub the incision. Do not soak or submerge in the bathtub or hot tub until your surgeon says it is OK. Wound Care If you have a clear, see-through bandage over your incision(s), you may shower with it in place. The bandage is waterproof. oIt is normal to see a small amount of reddish fluid under the clear bandage. You may remove your bandage after 48 hours. If you are in the hospital longer than 48 hours, it is OK to remove your bandage when you get home. If you have thin white tape strips (Steri-Strips) over your incision, keep them dry. Do not remove them unless they begin curling up at the sides and are almost falling off. Lorri or sutures are generally removed within seven to 14 days at your follow-up appointment. Drain Care If you have a drain, empty it two to three times per day or if it gets half full. Write down the time it was emptied and amount of fluid on a piece of paper. Bring your paper with times and fluid amounts to your follow-up appointment to show your surgeon. Call Your Doctor If: You have a fever of 101 degrees or higher. It is not uncommon to have a low-grade fever after surgery. You have new redness or fluid around the incision that smells bad or looks like pus. Your skin is very painful, red, warm and/or swollen around the incision. You have a lot of bleeding (push with pressure on the area if this happens). You have bad stomach pain or you start throwing up. If you are unable to reach your surgeon, go to the hospital. Follow Up If a follow-up appointment has not been made, please call your surgeon s office. Most appointments are 10 14 days after surgery. If you have any problems or concerns before then, call the surgeon s office. 11/05/2021 13:44:07 Laparoscopic Cholecystectomy, Care After Laparoscopic Cholecystectomy,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 Sanchez. Urine culture ordered by Dr. Sanchez. Patient to use Tylenol and a heating pad PRN. She is to call/come in if the pain worsens, she develops any bleeding or PRN problems.Yumiko WELCH RN History of depression 04/03/20132014 Overview: 04/03/2013Pt has a history of depression diagnosed at age 18. She has been off medication since November 2012 . She believes she is doing well off medication. She does state that she had depression. Discussed increased risks of depression during and and importance of reporting the development or worsening of symptoms should they occur. Pt states she had suicidal thoughts at age 18 but never had a plan. She denies any psychiatric hospitalizations. Yumiko WELCH RN Patient requested diagnostic testing 04/03/2013 11/01/2013 Overview: 04/03/2013 Patient desires early screening in with sequential testing.Yumiko WELCH RN 05/22/2013Negative Sequential screen first trimester. The first part of the Sequential Screen reports that her risk for Down syndrome decreased from her age-related risk of 1:810 to 1:10,000 and her Trisomy 18 risk decreased from her age-related risk of 1:2,800 to 1:10,000. Based on these results Dr. Spann's recommendation is for patient to follow-up with Sequential second trimester screening (06/06-06/20) and level II anatomy scan after 18wks. 07/06/2013negative Sequential screen second trimester. Becki Jackson was informed of her risk assessment for Trisomy 21, 18 and ONTD. Based on these results Dr. Spann s recommendation is for patient to follow-up level II anatomy scan after 18wks. Quit smoking 04/03/2013 05/30/2015 Overview: 04/03/2013 Pt quit smoking March 08, 2013. Discussed risks of smoking during . Advised pt to continue not smoking. Family history of congenital heart defect 04/03/2013 11/01/2013 Overview: 04/03/2013Pt's father born with a hole in heart. No corrective surgery done. Pt's mother, MGF and uncle born with enlarged hearts. Yumiko WELCH RN Tooth decay 04/03/2013 05/30/2015 Overview: 04/03/2013 Patient states that she has noted tooth decay for the past year. She did take antibiotics earlier this year for treatment of infection. She is advised of the importance of treating any tooth decay/infections ASHLEY. Yumiko WELCH RN Postpartum depression 08/12/20122014 Overview: Started zoloft 50mg PO DAILY Supervision of normal first 11/27/2011 04/03/2013 IBS (irritable bowel syndrome) 05/30/2015 documented as of this encounter (statuses as of 01/13/2024) [facility]omen[facility] May 23, 2023 12:35am Note Date/Time May 23, 2023 12:3 4am [facility] Medical Records Department [address] [place] [address] Emergency Department Summary 05/23/23 MR#: [id number] Acct: [id number] Name: BECKI JACKSON Rep #:[id number] : 1990 33 From: Domenic Dos Santos MD PCP: Dr. Kayley Dobson, DO Status: REG ER Location: ED HPI History of Present Illness Chief Complaint: Lower Extremity Injury Informant: patient Narrative Narrative: Patient presents with sore right ankle. Patient states she was walking out her friends back door. She was standing under her right ankle. She took weight off her left to take a step and she accidentally rolled her right ankle over. She describes an inversion injury. It has pain primarily on the lateral aspect. She states you can even touch the skin. She had an ice pack on it but it hurt too much. She has trouble bearing weight but had to to get in here. No history of brittle bones. Only medication is BuSpar which she takes for my stomach. She does have a history of gastroparesis but no history of diabetes. She has never had problemswith nonsteroidals. She had no other injury when she fell. [facility] Medical History Alcohol use Anxiety Arthritis Asthma Back pain Bipolar disorder Depression Diarrhea Easy bruising Excessive bleeding Gastric reflux Gastroparesis Leg cramps Loss of consciousness Migraine headache Nausea Restless legs Seizures Smoker Wears glasses Home Medications albuterol sulfate 90 mcg/actuation aerosol inhaler 1 puff inhalation Q6H PRN SOB06/18/22 [History Last Taken Unknown] albuterol sulfate 90 mcg/actuation aerosol inhaler (Ventolin HFA) 1 - 2 puff inhalation Q4H PRN PRN Wheezing #1 device 07/10/22 [Rx Last Taken Unknown] carbamazepine 300 mg capsule,extended release [id number] 300 mg PO BID 07/10/22 [History Last Taken Unknown] dexamethasone 6 mg tablet (Decadron) 6 mg PO DAILY 10 days #10 tabs 07/10/22 [Rx Last Taken Unknown] pantoprazole 40 mg tablet,delayed release (Protonix) 40 mg PO DAILY #30 tabs 12/31/22 [Rx Last Taken Unknown] ondansetron 4 mg disintegrating tablet 4 mg PO Q8H PRN PRN Nausea #10 tabs 01/13/23 [Rx Last Taken Unknown] naproxen 500 mg tablet 500 mg PO BID #14 tabs 05/23/23 [Rx Last Taken Unknown] Allergy/AdvReac Type Severity Reaction Status Date / Time Iodinated Contrast Media Allergy Nausea/Vom/ Verified 05/22/23 23:36 [DYEE] Diarrhea Penicillins Allergy Hives Verified 05/22/23 23:36 Sulfa (Sulfonamide Allergy Hives Verified 05/22/23 23:36 Antibiotics) Family History Grandfather Cancer pancreatic Grandfather Cancer unknown Father COPD (chronic obstructive pulmonary disease) Hypertension Mother Diabetes Thyroid disorder Surgical History H/O knee surgery History of salpingectomy History of tonsillectomy and adenoidectomy Hx of cholecystectomy Social History household members: significant other and children Smoking Status: Light Smoker (<10/day) substance use type: does not use ROS ROS ED Constitutional Constitutional ED: Denies chills or fever(s) Cardiovascular Cardiovascular: Denies chest pain or palpitations Gastrointestinal Gastrointestinal: Denies nausea or vomiting Musculoskeletal Musculoskeletal: Reports arthralgias; Denies back pain, myalgias or neck pain Integumentary Denies abscess, Abrasions or rash Neurologic Neurologic: Denies paresthesias or weakness Psychiatric Psychiatric: Reports anxiety Hematologic/Lymphatic Hematologic/Lymphatic: Denies easy bleeding or easy bruising Allergic/Immunologic Allergic/Immunologic ED: Denies urticaria EXAM Physical Exam Narrative Exam Narrative: Patient is awake alert no acute distress. HEENT shows no sign of trauma. Neck is supple free range of motion without pain. Lungs are clear bilaterally and saturations are normal at 97% on room air showing no hypoxia. Heart is regular. Rate about 90-95. Patient is a bit anxious due to her injury. Abdomen is benign. Extremities show no deformity. There is some swelling over the area of the lateral malleolus of the right ankle. She has skin sensitivity over in that area. But no apparent tenderness at the fifth metatarsal or calcaneus. No tenderness more proximally in the leg. I am unable to stress the ankle because just attempting to do this and touching the foot causes pain and she pulls away. Dorsalis pedis and posterior pulses are intact. Capillary refill is normal. There is no erythema or rash. No sign of infection. Neurologically she has distal sensation intact. Const Vital Signs: 05/22/23 23:30 Temperature 97.7 F L Temperature Source Temporal Pulse Rate 108 H Respiratory Rate 15 Blood Pressure 158/131 H Blood Pressure Mean 140 Pulse Ox 97 Oxygen Delivery Method Room Air MDM MDM MDM Narrative Medical decision making narrative: My independent interpretation of the patient's three-view x-ray of her right ankle shows no sign of fracture or dislocation. Final reading is negative right ankle x-ray. There is no indication of fracture. Difficult to assess ligament stability. We will place her in an Aircast. Nonsteroidals and ice are recommended. Elevation is recommended. If she is not better in a week or 2 she should have repeat x-ray. If she develops new or different symptoms she should return. Radiography Diagnostic Testing: Clinical Impression(s) from Imaging Studies Ankle X-Ray 05/22/23 23:50 IMPRESSION: Negative right ankle x-rays. Electronically Signed: Claire Agosto MD at 0:19 EDT , Discharge Plan Triage Chief Complaint: Lower Extremity Injury ED Provider: Domenic Dos Santos Dx/Rx/DC Orders Clinical Impression: Inversion sprain of right ankle Instructions: ED Ankle Sprain (Adult) Prescriptions: New naproxen 500 mg tablet 500 mg PO BID Qty: 14 0RF No Action albuterol sulfate 90 mcg/actuation Hfa Aerosol Inhaler 1 puff INHALATION Q6H PRN (Reason: SOB) carbamazepine 300 mg capsule, ER multiphase 12 hr 300 mg PO BID dexamethasone [Decadron] 6 mg tablet 6 mg PO DAILY 10 Days Qty: 10 0RF albuterol sulfate [Ventolin HFA] 90 mcg/actuation HFA aerosol inhaler 1 - 2 puff inhalation Q4H PRN PRN (Reason: Wheezing) Qty: 1 0RF ondansetron [ondansetron] 4 mg tablet,disintegrating 4 mg PO Q8H PRN PRN (Reason: Nausea) Qty: 10 0RF pantoprazole [Protonix] 40 mg tablet,delayed release (DR/EC) 40 mg PO DAILY Qty: 30 2RF Primary Care Provider: Kayley Dobson Referrals: Kayley Dobson, [Primary Care Provider] - 1 Week if not improving Disposition Disposition: Home, Self Care What to do if you have Problems For any increased pain, shortness of breath, bleeding, nausea or vomiting, chestpain, or any unexpected problems, contact your Primary Care Provider. Call [facility] ([phone]) or report to the closest Emergency Room. Call 911 if necessary. 05/23/23 0035 <Electronically signed by Domenic Dos Santos MD> Cosigner Signature (if applicable): CC: Dr. Kayley Dobson, DO ~ Signed [facility] Work Phone: Evaluation + Plan note S Evaluation + Plan note Future Appointments Appointment Date:09/16/2021 09:20:00 AM Scheduled Provider:KAYLEY DOBSON DO Location:[facility] Appointment Type:PC OV Follow Up Future Scheduled Tests Laboratory* Clostridium difficile PCR 06/12/21 * Fecal Leukocytes 06/12/21 [facility] Evaluation + Plan note Future Appointments Appointment Date:10/30/2021 01:20:00 PM Scheduled Provider:KAYLEY DOBSON DO Location:[facility] Appointment Type:PC OV Future Scheduled Tests Laboratory* Clostridium difficile PCR 06/12/21 * Fecal Leukocytes 06/12/21 [facility] Evaluation + Plan note Future Appointments Appointment Date:11/27/2021 01:40:00 PM Scheduled Provider:KAYLEY DOSBON DO Location:[facility] Appointment Type:PC OV Future Scheduled Tests Laboratory* Clostridium difficile PCR 06/12/21 * Fecal Leukocytes 06/12/21 [facility] Evaluation + Plan note Future Appointments Appointment Date:10/01/2023 09:45:00 AM Scheduled Provider:KAYLEY DOBSON DO Location:[facility] Appointment Type:PC OV Appointment Date:10/12/2023 01:30:00 PM Scheduled Provider:KAYLEY DOBSON DO Location:[facility] Appointment Type:PC OV Future Scheduled Tests Radiology* XR Spine Lumbar AP/LAT 02/16/23 [facility] Evaluation noteNo assessment information available [facility] Work Phone: Evaluation note* Diagnosis Onset Date Resolution Status Abdominal pain acute [facility] Work Phone: evaluation note* Diagnosis Gastroparesis- Primary Chronic idiopathic constipation Unspecified constipation Esophageal dysphagia Dysphagia, pharyngoesophageal phase documented in this encounter [facility]* Diagnosis Gastroparesis- Primary Pharyngoesophageal dysphagia Dysphagia, pharyngoesophageal phase documented in this encounter [facility] note* Diagnosis Onset Date Resolution Status Bruising tendency acute Gastroparesis chronic Easy bruisability chronic Purpura of skin due to vascular fragility acute Easy bruisability chronic [facility] Work Phone: Evaluation note* Diagnosis Pre-op evaluation- Primary Preoperative examination, unspecified Gastroparesis Electronic cigarette use Class 2 obesity with body mass index (BMI) of 36.0 to 36.9 in adult, unspecified obesity type, unspecified whether serious comorbidity present documented in this encounter [facility]* Diagnosis Pre-operative examination- Primary Preoperative examination, unspecified documented in this encounter [facility]* Diagnosis Pharyngoesophageal dysphagia- Primary Dysphagia, pharyngoesophageal phase Gastroparesis Hiatal hernia Diaphragmatic hernia without mention of obstruction or gangrene documented in this encounter [facility]* Diagnosis Contrast media allergy- Primary Allergy to radiographic dye documented in this encounter [facility] note* Diagnosis Chronic idiopathic constipation- Primary Unspecified constipation Gastroparesis documented in this encounter [facility] note* Diagnosis Pharyngoesophageal dysphagia Dysphagia, pharyngoesophageal phase documented in this encounter [facility]* Diagnosis Chronic abdominal pain- Primary Abdominal pain, unspecified site Gastroparesis Bipolar I disorder, most recent episode (or current) manic (HCC) Bipolar I disorder, most recent episode (or current) manic, unspecified Chronic pain syndrome documented in this encounter [facility] note* Diagnosis Gastroparesis documented in this encounter [facility] note* Diagnosis Contrast media allergy Allergy to radiographic dye Esophageal spasm Dyskinesia of esophagus Odynophagia Dysphagia, unspecified documented in this encounter [facility] note* Diagnosis Pain disorder associated with psychological factors and medical condition- Primary Other pain disorders related to psychological factors Chronic pain syndrome Bipolar I disorder, most recent episode (or current) manic (HCC) Bipolar I disorder, most recent episode (or current) manic, unspecified Chronic abdominal pain Abdominal pain, unspecified site Gastroparesis documented in this encounter [facility] note* Diagnosis Pharyngeal dysphagia- Primary Dysphagia, pharyngeal phase Gastroparesis Chronic abdominal pain Abdominal pain, unspecified site Chronic idiopathic constipation Unspecified constipation documented in this encounter [facility]* Diagnosis Gastroparesis documented in this encounter [facility]* Diagnosis Pharyngoesophageal dysphagia Dysphagia, pharyngoesophageal phase [facility]* Diagnosis Onset Date Resolution Status Right ankle pain acute Right ankle sprain acute [facility] Work Phone: Evaluation note* Diagnosis Chronic abdominal pain- Primary Abdominal pain, unspecified site Central sensitization to pain [facility]* Diagnosis Chronic idiopathic constipation- Primary Unspecified constipation Abdominal pain, unspecified abdominal location documented in this encounter [facility]* Diagnosis Right arm pain- Primary Pain in soft tissues of limb documented in this encounter [facility] Work Phone: Evaluation note* Diagnosis Chronic abdominal pain- Primary Abdominal pain, unspecified site Central sensitization to pain Myofascial pain Mylagia and myositis, unspecified documented in this encounter [facility] note* Diagnosis Gastroparesis Chronic idiopathic constipation Unspecified constipation documented [facility] this encounter [facility]* Diagnosis Gastroparesis- Primary Pharyngoesophageal dysphagia Dysphagia, pharyngoesophageal phase documented in this encounter [facility] note* Diagnosis Upper abdominal pain- Primary Abdominal pain, other specified site Acute liver failure Acute and subacute necrosis of liver [facility]* Diagnosis Transaminitis- Primary Nonspecific elevation of levels of transaminase or lactic acid dehydrogenase (LDH) Gastroparesis documented in this encounter [facility]* Diagnosis Gastroparesis- Primary Pharyngoesophageal dysphagia Dysphagia, pharyngoesophageal phase Visceral hyperalgesia Other symptoms involving abdomen and pelvis Slow transit constipation documented in this encounter [facility] note* Diagnosis Chronic pain syndrome- Primary Chronic abdominal pain Abdominal pain, unspecified site Gastroparesis Bipolar I disorder, most recent episode (or current) manic (HCC) Bipolar I disorder, most recent episode (or current) manic, unspecified documented in this encounter [facility]* Diagnosis Abdominal pain, unspecified abdominal location- Primary documented in this encounter [facility] note* Diagnosis Abdominal pain, unspecified abdominal location- Primary documented in this encounter [facility] note* Diagnosis Abdominal pain, unspecified abdominal location- Primary documented in this encounter [facility]* Diagnosis Abdominal pain, unspecified abdominal location- Primary documented in this encounter [facility] note* Diagnosis Abdominal pain, unspecified abdominal location- Primary documented in this encounter [facility] note* Diagnosis Gastroparesis documented in this encounter [facility] note* Diagnosis Pre-op evaluation- Primary Preoperative examination, unspecified Gastroparesis Electronic cigarette use Class 2 obesity with body mass index (BMI) of 36.0 to 36.9 in adult, unspecified obesity type, unspecified whether serious comorbidity present Chronic pain syndrome- Primary Chronic abdominal pain Abdominal pain, unspecified site Gastroparesis Bipolar I disorder, most recent episode (or current) manic (HCC) Bipolar I disorder, most recent episode (or current) manic, unspecified Rash and other nonspecific skin eruption [facility]* Diagnosis Arm DVT (deep venous thromboembolism), acute, left- Primary documented in this encounter [facility] note* Diagnosis Chest wall pain- Primary Painful respiration Chest pain, unspecified type documented in this encounter [facility] note* Diagnosis Thrombophlebitis arm- Primary Phlebitis and thrombophlebitis of upper extremities, unspecified documented in this encounter [facility] note* Diagnosis Chest pain, unspecified type- Primary documented in this encounter [facility] note* Diagnosis Acute febrile illness- Primary Fever, unspecified Febrile illness, acute Fever, unspecified Bandemia Lower abdominal pain Abdominal pain, other specified site History of DVT (deep vein thrombosis) Personal history of venous thrombosis and embolism Anticoagulated Encounter for long-term (current) use of anticoagulants Gastroparesis STEVE (generalized anxiety disorder) Generalized anxiety disorder GERD (gastroesophageal reflux disease) Esophageal reflux documented in this encounter [facility] note* Diagnosis Pre-op evaluation- Primary Preoperative examination, unspecified Gastroparesis Electronic cigarette use Class 2 obesity with body mass index (BMI) of 36.0 to 36.9 in adult, unspecified obesity type, unspecified whether serious comorbidity present Nausea and vomiting, unspecified vomiting type- Primary Gastroparesis documented in [facility]* Diagnosis Pre-op evaluation- Primary Preoperative examination, unspecified Gastroparesis Electronic cigarette use Class 2 obesity with body mass index (BMI) of 36.0 to 36.9 in adult, unspecified obesity type, unspecified whether serious comorbidity present Chronic idiopathic constipation Unspecified constipation documented in [facility] encounter [facility]* Diagnosis Pre-op evaluation- Primary Preoperative examination, unspecified Gastroparesis Electronic cigarette use Class 2 obesity with body mass index (BMI) of 36.0 to 36.9 in adult, unspecified obesity type, unspecified whether serious comorbidity present Functional dyspepsia- Primary Dyspepsia and other specified disorders of function of stomach Pharyngoesophageal dysphagia Dysphagia, pharyngoesophageal phase Visceral hypersensitivity syndrome Other functional disorders of intestine documented in this [facility]* Diagnosis Chronic chest pain- Primary Chest pain, unspecified Chronic abdominal pain Abdominal pain, unspecified site Arm DVT (deep venous thromboembolism), acute, left documented in this encounter [facility] note* Diagnosis Pre-op evaluation- Primary Preoperative examination, unspecified Gastroparesis Electronic cigarette use Class 2 obesity with body mass index (BMI) of 36.0 to 36.9 in adult, unspecified obesity type, unspecified whether serious comorbidity present Abdominal pain, unspecified abdominal location- Primary documented in [facility]* Diagnosis Pre-op evaluation- Primary Preoperative examination, unspecified Gastroparesis Electronic cigarette use Class 2 obesity with body mass index (BMI) of 36.0 to 36.9 in adult, unspecified obesity type, unspecified whether serious comorbidity present Abdominal pain, unspecified abdominal location- Primary Chronic pain syndrome Chronic abdominal pain Abdominal pain, unspecified site documented in this encounter [facility]* Diagnosis Pre-op evaluation- Primary Preoperative examination, unspecified Gastroparesis Electronic cigarette use Class 2 obesity with body mass index (BMI) of 36.0 to 36.9 in adult, unspecified obesity type, unspecified whether serious comorbidity present Abdominal pain, unspecified abdominal location- Primary documented in this encounter [facility]* Diagnosis Pre-op evaluation- Primary Preoperative examination, unspecified Gastroparesis Electronic cigarette use Class 2 obesity with body mass index (BMI) of 36.0 to 36.9 in adult, unspecified obesity type, unspecified whether serious comorbidity present Abdominal pain, unspecified abdominal location- Primary documented in this encounter [facility]* Diagnosis Pre-op evaluation- Primary Preoperative examination, unspecified Gastroparesis Electronic cigarette use Class 2 obesity with body mass index (BMI) of 36.0 to 36.9 in adult, unspecified obesity type, unspecified whether serious comorbidity present Nausea and vomiting, unspecified vomiting type documented in this encounter [facility]* Diagnosis Sciatica associated with disorder of lumbar spine- Primary documented in this encounter [facility] note* Diagnosis Pre-op evaluation- Primary Preoperative examination, unspecified Gastroparesis Electronic cigarette use Class 2 obesity with body mass index (BMI) of 36.0 to 36.9 in adult, unspecified obesity type, unspecified whether serious comorbidity present Chronic abdominal pain- Primary Abdominal pain, unspecified site Chronic pain syndrome Gastroparesis Bipolar I disorder, most recent episode (or current) manic (HCC) Bipolar I disorder, most recent episode (or current) manic, unspecified documented in [facility]* Diagnosis Pleurisy- Primary Pleurisy without mention of effusion or current tuberculosis Cervical radiculopathy Brachial neuritis or radiculitis nos documented in this encounter [facility] note* Diagnosis Pre-op evaluation- Primary Preoperative examination, unspecified Gastroparesis Electronic cigarette use Class 2 obesity with body mass index (BMI) of 36.0 to 36.9 in adult, unspecified obesity type, unspecified whether serious comorbidity present Chronic pain syndrome- Primary Chronic abdominal pain Abdominal pain, unspecified site documented in this encounter [facility] Narrative No data available for this section [facility] Discharge instructions No data available for this section [facility] Discharge instructions Additional Instructions Take Tylenol or ibuprofen every 6 hours as needed for painWSt. [facility]'s Hospital Work Phone: Hospital Discharge instructions Additional Instructions Drink plenty of fluids. If your symptoms worsen or progress or if you have further concerns return to the emergency room. Your lab work was largely normal except for urinalysis which is concerning for urinary tract infection. You will be contacted if antibiotics need to be changed based on culture results. You may also take Tylenol for pain.[facility] Work Phone: Hospital Discharge instructions* Attachments The following attachments cannot be sent through Care Everywhere. * Muscle and Bone Pain Discharge Instructions (Maltese) documented in this [facility] Work Phone: Hospital Discharge instructions* Attachments The following attachments cannot be sent through Care Everywhere. * Abdominal Pain (Maltese) [facility]* Attachments The following attachments cannot be sent through Care Everywhere. * DVT (Deep Vein Thrombosis): Prevention: General Info (Maltese) [facility]* Attachments The following attachments cannot be sent through Care Everywhere. * Chest Pain: Musculoskeletal (Maltese) documented in this [facility] Discharge instructions* Attachments The following attachments cannot be sent through Care Everywhere. * Chest Pain (Maltese) [facility]* Attachments The following attachments cannot be sent through Care Everywhere. * Sciatica (Maltese) documented in this [facility] Discharge instructions* Attachments The following attachments cannot be sent through Care Everywhere. * Pleurisy (Maltese) * Cervical Radiculopathy (Maltese) [facility] No data available for this section [facility] Reason for referral (narrative)* Diagnostic Procedure Only (Routine) - Pending Review Specialty Diagnoses / Procedures Referred By Dyan schumacher Referred To Contact XR IMAGING Diagnoses Esophageal dysphagia Procedures XR ESOPHAGRAM RADIOLOGIC EXAM ESOPHAGUS SINGLE CONTRAST STUDY Claire Flanagan DO [facility] [address] [place] [address] Xr Imaging Referral ID Status Reason Start Date Expiration Date Visits Requested Visits Authorized [id number] Pending Review Auto-Generat ed Referral 01/05/2023 02/04/2024 1 1 * Diagnostic Procedure Only (Routine) - Pending Review Specialty Diagnoses / Procedures Referred By Contac t Referred To Contact XR IMAGING Diagnoses Chronic idiopathic constipation Procedures XR ABDOMEN 1V SUPINE RADIOLOGIC EXAM ABDOMEN 1 VIEW Claire Flanagan DO [facility] [address] [place] [address] Xr Imaging Referral ID Status Reason Start Date Expiration Date Visits Requested Visits Authorized [id number] Pending Review Auto-Generat ed Referral 01/05/2023 02/04/2024 1 1 [facility] for referral (narrative)* Outpatient Procedure (Routine) - Pending Review Specialty Diagnoses / Procedures Referred By Contac t Referred To Contact [facility] Diagnoses Gastroparesis Procedures EGD - THERAPEUTIC, EUS, OR TUBE INTERVENTIONS EGD DILATION GASTRIC/DUODENAL STRICT[place] [address] [facility] [address] [place] [address] Referral ID Status Reason Start Date Expiration Date Visits Requested Visits Authorized [id number] Pending Review Auto-Generat ed Referral 01/05/2023 01/06/2024 1 1 [facility] for referral (narrative)* Outpatient Procedure (Routine) - Pending Review Specialty Diagnoses / Procedures Referred By Contac t Referred To Contact [facility] Diagnoses Gastroparesis Electronic cigarette use Class 2 obesity with body mass index (BMI) of 36.0 to 36.9 in adult, unspecified obesity type, unspecified whether serious comorbidity present Pre-op evaluation Procedures ECG COMPLETE ECG ROUTINE ECG W/LEAST 12 LDS W/I&R Rosario Howard PA-C [address] [place] [address] [address] Referral ID Status Reason Start Date Expiration Date Visits Requested Visits Authorized [id number] Pending Review Auto-Generat ed Referral 01/20/2023 01/20/2024 1 1 [facility] for referral (narrative)* Outpatient Procedure (Routine) - Authorized Specialty Diagnoses / Procedures Referred By Contac t Referred To Contact [facility] Diagnoses Pre-operative examination Procedures ECG COMPLETE ECG ROUTINE ECG W/LEAST 12 LDS W/I&R Capri Ayala APRN.[facility] [address] [place] [address] [address] Referral ID Status Reason Start Date Expiration Date Visits Requested Visits Authorized [id number] Authorized Auto-Generat ed Referral 02/01/2023 02/01/2024 1 1 [facility] for referral (narrative)* Outpatient Procedure (Routine) - Pending Review Specialty Diagnoses / Procedures Referred By Contac t Referred To Contact [facility] Diagnoses Pharyngoesophageal dysphagia Hiatal hernia Procedures MANOMETRY ESOPHAGEAL ESOPHAGEAL MOTILITY STUDY W/INTERP&[place] [address] [facility] [address] [place] [address] Referral ID Status Reason Start Date Expiration Date Visits Requested Visits Authorized [id number] Pending Review Auto-Generat ed Referral 03/02/2023 03/02/2024 1 1 * Diagnostic Procedure Only (Routine) - Pending Review Specialty Diagnoses / Procedures Referred By Contac t Referred To Contact XR IMAGING Diagnoses Pharyngoesophageal dysphagia Procedures XR MODIFIED BARIUM SWALLOW W SPEECH THERAPY RADIOLOGIC EXAM SWALLOW FUNCTION CONTRAST [place] [address] Xr Imaging Referral ID Status Reason Start Date Expiration Date Visits Requested Visits Authorized [id number] Pending Review Auto-Generat ed Referral 03/02/2023 03/31/2024 1 1 [facility] for referral (narrative)* Outpatient Procedure (Routine) - Pending Review Specialty Diagnoses / Procedures Referred By Contac t Referred To Contact [facility] Diagnoses Pharyngoesophageal dysphagia Procedures EGD - THERAPEUTIC, EUS, OR TUBE INTERVENTIONS EGD DILATION GASTRIC/DUODENAL STRICTURE Shaina Bolton APRN.CNP [address] [place] [address] [address] Referral ID Status Reason Start Date Expiration Date Visits Requested Visits Authorized [id number] Pending Review Auto-Generat ed Referral 05/24/2023 05/24/2024 1 1 [facility] for referral (narrative)* Outpatient Procedure (Routine) - Closed Specialty Diagnoses / Procedures [facility] Referred To Contact [facility] [place] Diagnoses Pharyngoesophageal dysphagia Procedures EGD - THERAPEUTIC, EUS, OR TUBE INTERVENTIONS EGD DILATION GASTRIC/DUODENAL STRICTURE Shaina Bolton, [employer] [address] [place] [address] [facility] [address] [place] [address] Referral ID Status Reason Start Date Expiration Date V isits Requested Visits Authorized [id number] Closed Auto-Generate d Referral 05/24/2023 05/24/2024 1 1 [facility] for referral (narrative)* Consultation (Routine) - Authorized Specialty Diagnoses / Procedures Referred By Contac t Referred To Contact Family Medicine / Primary Care Cameron Avilez DO [address] [place] [address] Department [place] [address] Referral ID Status Reason Start Date Expiration Date Visits Requested Visits Authorized [id number] Authorized Specialty Services Required 02/15/2024 02/14/2025 1 1 [facility] Work Phone: Reason for referral (narrative)* Consultation (Routine) - New Request Specialty Diagnoses / Procedures Referred By Contac t Referred To Contact Family Medicine Diagnoses Upper abdominal pain Bobby Singh MD [address] [place] [phone] Referral ID Status Reason Start Date Expiration Date V isits Requested Visits Authorized [id number] New Request 04/06/2024 05/01/2025 1 [facility] Diagnostic Procedure Only (Routine) - New Request Specialty Diagnoses / Procedures Referred By Contac t Referred To Contact MOLECULAR & FUNCTIONAL IMAGING Diagnoses Gastroparesis Procedures NM GASTRIC EMPTYING SOLID GASTRIC EMPTYING [place]UD[place] [address] Molecular & Functional Imaging [address] [place] [address] Referral ID Status Reason Start Date Expiration Date Visits Requested Visits Authorized [id number] New Request Auto-Generat ed Referral 05/16/2024 06/15/2025 1 1 * Consult, Test, Treat (Routine) - Authorized Specialty Diagnoses / Procedures Referred By Contac t Referred To Contact Diagnoses Pharyngoesophageal dysphagia Visceral hyperalgesia Procedures CONSULT TO [facility] OFFICE/OUTPATIENT NEW HIGH MDM 60 [place] [address] Referral ID Status Reason Start Date Expiration Date Visits Requested Visits Authorized [id number] Authorized PCP Requested Referral 05/16/2024 05/16/2025 1 1 [facility] for referral (narrative)* Diagnostic Procedure Only (Routine) - Closed Specialty Diagnoses / Procedures Referred By Contac t Referred To Contact MOLECULAR [facility] FUNCTIONAL IMAGING Diagnoses Gastroparesis Procedures NM GASTRIC EMPTYING SOLID GASTRIC EMPTYING [place]UD[place] [address] [facility] [address] [place] [address] Referral ID Status Reason Start Date Expiration Date V isits Requested Visits Authorized [id number] Closed Auto-Generate d Referral 05/23/2024 10/24/2024 1 1 [facility] for referral (narrative)* Consultation (Urgent) - New Request Specialty Diagnoses / Procedures Referred By Contac t Referred To Contact Cardiovascular Medicine Diagnoses Acute deep vein thrombosis (DVT) of brachial vein of right upper extremity Meron Jorgensen MD [address] [place] [address] Claier Ruiz MD [address] [place] [id number] Referral ID Status Reason Start Date Expiration Date V isits Requested Visits Authorized [id number] New Request 07/23/2024 08/17/2025 1 1 [facility] for referral (narrative)* (Routine) Specialty Diagnoses / Procedures Referred By Contac t Referred To Contact [facility] RE[facility] [address] [place] [address] Referral ID Status Reason Start Date Expiration Date Visits Re quested Visits Authorized * Unlisted Procedure Code (Routine) - New Request Specialty Diagnoses / Procedures Referred By Contac t Referred To Contact Procedures INPATIENT ADMISSION NOTIFICATION Odette Rousseau MD [address] [place] [address] Referral ID Status Reason Start Date Expiration Date V isits Requested Visits Authorized [id number] New Request 08/02/2024 08/27/2025 1 1 [facility] Consultation (Urgent) - New Request Specialty Diagnoses / Procedures Referred By Contac t Referred To Contact Anest[facility]iology [facility] Diagnoses Chronic chest pain Chronic abdominal pain Vivi Gonzalez I, [employer] BU[employer]ER-[employer]ER [address] [address] Alexus Spaulding, [employer]IVESTOCK BUYER-[employer]CHER [address] [place] [address] Referral ID Status Reason Start Date Expiration Date V isits Requested Visits Authorized [id number] New Request 08/22/2024 09/16/2025 1 1 * Radiology (Emergency) - New Request Specialty Diagnoses / Procedures Referred By Contac t Referred To Contact Procedures ECG Indra Santos DO [address] [place] [address] Referral ID Status Reason Start Date Expiration Date V isits Requested Visits Authorized [id number] New Request 08/22/2024 09/16/2025 1 1 [facility]No reason for referral information availableWSt. Rita's Hospital Work Phone: Reason for referral (narrative)* Radiology (Emergency) - New Request Specialty Diagnoses / Procedures Referred By Contac t Referred To Contact Procedures ECG Fortino Kohli DO [address] [place] [address] Phone: tel: fax: Referral ID Status Reason Start Date Expiration Date V isits Requested Visits Authorized [id number] New Request 05/27/2025 06/21/2026 1 1 [facility] for visit Narrative* Diagnostic Procedure Only (Routine) - Closed Specialty Diagnoses / Procedures Referred By Contac t Referred To Contact XR IMAGING Diagnoses Contrast media allergy Esophageal spasm Odynophagia Procedures XR ESOPHAGRAM RADIOLOGIC EXAM ESOPHAGUS SINGLE CONTRAST STUDY [place], [place] [address] Xr Imaging Referral ID Status Reason Start Date Expiration Date V isits Requested Visits Authorized [id number] Closed Auto-Generate d Referral 05/04/2023 06/02/2024 1 1 [facility] for visit Narrative* Outpatient Procedure (Routine) - Closed Specialty Diagnoses / Procedures Referred By Contac t Referred To Contact [facility] Diagnoses Pharyngoesophageal dysphagia Procedures EGD - THERAPEUTIC, EUS, OR TUBE INTERVENTIONS EGD DILATION GASTRIC/DUODENAL STRICTURE Shaina Bolton APRN.[facility] [address] [place] [address] [facility] [address] [place] [address] Referral ID Status Reason Start Date Expiration Date V isits Requested Visits Authorized [id number] Closed Auto-Generate d Referral 05/24/2023 05/24/2024 1 1 [facility] for visit Narrative* Diagnostic Procedure Only (Routine) - Closed Specialty Diagnoses / Procedures Referred By Contac t Referred To Contact MOLECULAR & FUNCTIONAL IMAGING Diagnoses Gastroparesis Procedures NM GASTRIC EMPTYING SOLID GASTRIC EMPTYING [place]UDY [place] [address] Molecular & Functional Imaging [address] [place] [address] Referral ID Status Reason Start Date Expiration Date V isits Requested Visits Authorized [id number] Closed Auto-Generate d Referral 05/23/2024 10/24/2024 1 1 [facility] Discharge Instructions * Attachments The following attachments cannot be sent through Care Everywhere. * Kidney Stone (Maltese) documented in this encounter* Instructions* Rosina Alamo, LIVESTOCK BUYER-[employer]CHER - 09/17/2020 Naproxen twice daily with food; avoid additional ibuprofen, Aleve, or aspirin while taking. Flexeril as needed for muscle tightness or spasms, use caution with this because mild sedation. Ice to the area, walking, gentle stretching exercises may be of benefit. Please follow-up with your primary care provider later this week for recheck, return for any worsening or worrisome symptoms. * Attachments The following attachments cannot be sent through Care Everywhere. * Back Pain (Maltese) documented in this encounter* Attachments The following attachments cannot be sent through Care Everywhere. 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 Advance Directives and Livin g Will 05/20/2020 8:54 PM Advance Directive Response Recorded Date/ Time Advance Directives No April 26 11:17am Living Will No March 03, 2022 5 :14pm Power of Skimmer Reverberatory No March 03, 2022 5:14pm Advance Directive Response Recorded Date/ Time Advance Directives No April 26 11:17am Living Will No May 09, 2022 12:07am Power of Skimmer Reverberatory No May 09 12:07am Advance Directive Response Recorded Date/ Time Advance Directives No April 26 11:17am Living Will No June 02, 2022 8:12pm Power of Skimmer Reverberatory No June 02 8:12pm Advance Directive Response Recorded Date/ Time Advance Directives No September 29, 2022 12:28pm Living Will No January 13, 2023 6:52pm Power of Skimmer Reverberatory No January 13 6:52pm Advance Directive Response Recorded Date/ Time Advance Directives No September 29, 2022 12:28pm Living Will No May 23, 2023 12:22am Power of Skimmer Reverberatory No May 23 12:22am Advance Directive Response Recorded Date/ Time Advance Directives No September 29, 2022 11:28am Living Will No September 21, 2 023 2:10pm Power of Skimmer Reverberatory No September 21, 2023 2:10pm Advance Directive Response Recorded Date/ Time Advance Directives No September 29, 2022 12:28pm Living Will No January 12, 2024 10:34pm Power of Skimmer Reverberatory No January 11 10:34pm Date Activated Date Inactivated Comments 08/02/2024 9:28 PM Advance Directive Response Recorded Date/ Time Do you have a Healthcare Power of Skimmer Reverberatory? No May 03, 2025 1:54pm Advance Directives No September 29, 2022 12:28pm Summary Purpose Family History No Family History Records Found Relationship Condition Age at Onset Recorded Date/T angie grandfather Malignant neoplasm Unknown father Chronic obstructive pulmonary disease Unk nown Hypertension Unknown mother Diabetes mellitus Unknown Disorder of thyroid Unknown Chief Complaint and Reason for Visit Chief Complaint ABRASION Chief Complaint ABRASION Consult EORDER Reason for Visit Abdominal pain Chief Complaint ABRASION Consult EORDER ABD PAIN ABD PAIN Reason for Visit Abdominal pain Chief Complaint ABRASION Consult EORDER ABD PAIN ABD PAIN ABD PAIN Reason for Visit Abdominal pain Chief Complaint ABRASION Consult EORDER ABD PAIN ABD PAIN ABD PAIN abd pain Reason for Visit Abdominal pain Chief Complaint ABRASION Consult EORDER ABD PAIN ABD PAIN ABD PAIN abd pain abd pain Reason for Visit Abdominal pain Chief Complaint 3 MO FU NEW-SPONTANEOUS BRUISING 3WKS LABS PRIOR/LABS TODAY MED ONC ABD PAIN Reason for Visit Bruising tendency Gastroparesis Easy bruisability Purpura of skin due to vascular fragility Easy bruisability Chief Complaint RIGHT ANKLE PAIN R/T INJURY Chief Complaint RIGHT ANKLE flank pain Reason for Visit Right ankle pain Right ankle sprain Chief Complaint flank pain RENAL LESION Chief Complaint flank pain RENAL LESION ABD PAIN Chief Complaint Admit Date CHEST PAIN May 03, 2025 12:3 1pm Reason for Referral Specialty Diagnoses / Procedures Referred By Contac t Referred To Contact [facility] Diagnoses Functional dyspepsia Pharyngoesophageal dysphagia Visceral hypersensitivity syndrome Procedures CONSULT TO [facility]ICINE OFFICE/OUTPATIENT [facility] 60 [place] [address] MadonnaJelly, IVAN [address] [place] [address] Referral ID Status Reason Start Date Expiration Date Visits Requested Visits Authorized [id number] New Request PCP Requested Referral Financial Clearance Required - OON Payor 08/22/2025 1 1 Specialty Diagnoses / Procedures Referred By Contac t Referred To Contact [facility] Diagnoses Functional dyspepsia Pharyngoesophageal dysphagia Visceral hypersensitivity syndrome Procedures CONSULT TO [facility] SWALLOWING [facility] OFFICE/OUTPATIENT [facility] 60 MINUTES Oz Jones, [place] [address] [place] [address] Referral ID Status Reason Start Date Expiration Date Visits Requested Visits Authorized [id number] New Request PCP Requested Referral Financial Clearance Required - OON Payor 4 08/22/2025 1 1 Specialty Diagnoses / Procedures Referred By Contac t Referred To Contact Diagnoses Nausea and vomiting, unspecified vomiting type Claire Flanagan DO [facility] [address] [place] [address] Referral ID Status Reason Start Date Expiration Date V isits Requested Visits Authorized [id number] Pending Review 1 1 Specialty Diagnoses / Procedures Referred By Contac t Referred To Contact Procedures ECG Anil Witt MD [address] [place] [address] Referral ID Status Reason Start Date Expiration Date V isits Requested Visits Authorized [id number] New Request 07/25/2024 08/19/2025 1 1 Specialty Diagnoses / Procedures Referred By Contac t Referred To Contact Dermatology Diagnoses Rash and other nonspecific skin eruption Procedures CONSULT TO DERMATOLOGY Lucas Hancock PA-C [address] [place] [address] Referral ID Status Reason Start Date Expiration Date Visits Requested Visits Authorized [id number] Ref Not Required PCP Requested Referral 06/30/2024 06/30/2025 1 1 Specialty Diagnoses / Procedures Referred By Contac t Referred To Contact [facility] Diagnoses Pain disorder associated with psychological factors and medical condition Chronic pain syndrome Bipolar I disorder, most recent episode (or current) manic (HCC) Procedures CONSULT TO [facility] (CHRONIC PAIN) OFFICE/OUTPATIENT [facility] 60-74 MINUTES Rudi Melgoza, Therapist [address] [place] [address] Referral ID Status Reason Start Date Expiration Date Visits Requested Visits Authorized [id number] Pending Review PCP Requested Referral 06/24/2023 06/23/2024 1 1 Specialty Diagnoses / Procedures Referred By Contac t Referred To Contact [facility] Diagnoses Chronic abdominal pain Gastroparesis Bipolar I disorder, most recent episode (or current) manic (HCC) Chronic pain syndrome Procedures CONSULT TO [facility] (CHRONIC PAIN) OFFICE/OUTPATIENT [facility] 60-74 MINUTES Lucas Hancock PA-C [address] [place] [address] Referral ID Status Reason Start Date Expiration Date Visits Requested Visits Authorized [id number] Pending Review PCP Requested Referral 05/24/2023 05/23/2024 1 1 Specialty Diagnoses / Procedures Referred By Contac t Referred To Contact Diagnoses Chronic idiopathic constipation Claire Flanagan DO [address] [place] [address] Referral ID Status Reason Start Date Expiration Date V isits Requested Visits Authorized [id number] Pending Review 1 1 Medications Administered Section Inactive Administered Medications - up to 3 most recent administrations Medication Order MAR Action Action Date Dose Rate Site lactated ringers iv infusion 5-30 mL/hr, INTRAVENOUS, CONTINUOUS, Starting on Wed08/30/23 at 1330, Until Wed08/30/23 at 1432, Preprocedure New Bag/Syringe/Bottle 08/30/2023 1:50 PM EST 30 mL/hr 30 mL/hr Additional Source Comments Reason for Visit (unrecogniz ed section and content) Reason Comments Kidney Stone diagnosed with kidne y stone two night ago on right side on outside of kidney in [facility]. was told to be seen again if got worse. 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 Reason Comments Pain Reason Comments Gastroparesis Abdominal Pain Reason Comments Patient Question Reason Comments Throat Problem Specialty Diagnoses / Procedures Referred By Contac t Referred To Contact Diagnoses Pharyngoesophageal dysphagia Procedures CONSULT TO GI SWALLOWING [facility] OFFICE/OUTPATIENT [facility] 60-74 MINUTES Kerline Sanchez MD [address] [place] [address] Referral ID Status Reason Start Date Expiration Date V isits Requested Visits Authorized [id number] Closed PCP Requested Referral 05/21/2023 05/20/2024 1 1 Specialty Diagnoses / Procedures Referred By Contac t Referred To Contact [facility] Diagnoses Chronic abdominal pain Procedures CONSULT TO [facility] PAIN) OFFICE/OUTPATIENT [facility] 60-74 [place] [address] Referral ID Status Reason Start Date Expiration Date Visits Requested Visits Authorized [id number] Pending Review PCP Requested Referral 05/21/2023 05/20/2024 1 1 Reason Comments Medication Preauthorization PA for Moteg rity Reason Comments Refill Request Reason Comments Consult Specialty Diagnoses / Procedures Referred By Contac t Referred To Contact [facility] Diagnoses Chronic abdominal pain Gastroparesis Bipolar I disorder, most recent episode (or current) manic (HCC) Chronic pain syndrome Procedures CONSULT TO [facility] ([facility]RON[facility] PAIN) OFFICE/OUTPATIENT [facility] 60-74 MINUTES Lucas Hancock PA-C [address] [place] [address] Referral ID Status Reason Start Date Expiration Date Visits Requested Visits Authorized [id number] Pending Review PCP Requested Referral 05/24/2023 05/23/2024 1 1 Reason Comments Gastroparesis Reason Comments Patient Update Reason Onset Date Comments Refill Request 08/24/2023 buspar Reason Comments Patient Question Pressure and tasting blood Reason Comments Pain Abdomen with radiati on to back Reason Comments Follow Up Reason Comments Medication Problem Amitiza Reason Comments Medication Problem Reason Comments Difficulty Breathing Reason Comments Upper Extremity Issue [place] pain. Pt states that starting last pm she noticed that she was having right arm pain/numbness/tingling that progressed over into the right and mid chest. Pt does denies any SOB or difficulty with breathing. Pt does feel nauseous. Reason Comments Established Patient Follow-Up Abdomen, f dilan Reason Onset Date Comments Refill Request 03/20/2024 Reason Comments Constipation Nausea Reason Comments Abdominal Pain To ed with c/o abd p ain x 1 day. Pt has hx of acute liver failure Reason Comments Newly Diagnosed Transaminitis Specialty Diagnoses / Procedures Referred By Contact Referred To Contact Gastroenterology / GASTROENTEROLOGY Diagnoses Transaminitis Procedures CONSULT TO GASTROENTEROLOGY OFFICE/OUTPATIENT [facility] 60 MINUTES Shayla Hough, TRISTEN.CENTERPUNCHER [address] [place] [address] [place] [address] Referral ID Status Reason Start Date Expiration Date Visits Re quested Visits Authorized [id number] Closed 04/07/2024 10/24/2024 1 1 Reason Comments Gastroparesis Reason Comments Established Patient Reason Comments Infusion Specialty Diagnoses / Procedures Referred By Contac t Referred To Contact Neurology / NEUROLOGY PAIN Diagnoses KETAMINE INFUSION Procedures INFUSION KETAMINE Self Spine Chronic Pain Infusions [address] [address] [place] [address] Referral ID Status Reason Start Date Expiration Date V isits Requested Visits Authorized [id number] Authorized 05/25/2024 08/23/2024 1 99 Specialty Diagnoses / Procedures Referred By Contac t Referred To Contact Neurology / NEUROLOGY PAIN Diagnoses KETAMINE INFUSION Procedures INFUSION KETAMINE Self Spine Chronic Pain Infusions [address] [address] [place] [address] Reason Comments New Patient Reason Comments Arm Pain Arm swelling Patient to ED with c oncerns for blood clot in her left arm. Patient was seen in [place] in Wednesday for gastroparesis and had an IV placed in the Left arm. Patient states arm is now swollen and hot to the touch. Patient also woke up to a bruise or unknown reason to her left breast Reason Comments Chest Pain Pt to ED with c/o cp that started this morning. Was seen here this weekend and diagnosed with a DVT to left arm. Stat EKG and troponin done in triage. Rates CP 08/03 @ this time. Reason Comments Arm Pain To ED with c/o right arm pain that radiates to chest. Patient states I have a blood clot in my left arm and now I have one in my right arm Reason Comments Chest Pain Pt. Arrives with portillo st pain since this am. Pt. Currently has a DVT in left arm, and has SOB. Reason Comments Fever Pt reports she devel oped a fever 1 hr ago and abdominal pain 1 hr ago. Report she was dx yesterday with DVT in left arm Specialty Diagnoses / Procedures Referred By Contac t Referred To Contact Diagnoses Bandemia Lower abdominal pain Anticoagulated Acute febrile illness Febrile illness, acute History of DVT (deep vein thrombosis) Odette Rousseau MD [address] [place] [address] [facility] Referral ID Status Reason Start Date Expiration Date Visits Re quested Visits Authorized [id number] 1 1 Reason Comments Constipation Nausea Specialty Diagnoses / Procedures Referred By Contact Referred To Contact Gastroenterology / GASTROENTEROLOGY Diagnoses Acute liver failure without hepatic coma med check Procedures VIDEO SPEC EST Self Claire Flanagan DO [facility] [address] [place] [address] Referral ID Status Reason Start Date Expiration Date Visits Requested Visits Authorized [id number] Denied OON Notification Letter Clearance Not Met - Admin/Industrial Laborer/D irector Advise to Postpone/Resched ule or Not Proceed 4 11/13/2024 1 0 Reason Comments Medication Preauthorization PA for Grani setron (Kytril) Reason Onset Date Comments Refill Request 08/19/2024 Reason Comments Difficulty Swallowing Specialty Diagnoses / Procedures Referred By Dyan t Referred To Contact General Surgery / GENERAL SURGERY Diagnoses H/O endoscopy gp symtoms/endoscopy discussion Procedures VIDEO SPEC EST Self Oz [place], [place] [address] Referral ID Status Reason Start Date Expiration Date Visits Requested Visits Authorized [id number] Denied OON Notification Letter Financial Clearance Required - OON Payor Clearance Not Met - Admin/Industrial Laborer/D irector Advise to Postpone/Resched ule or Not Proceed 4 11/20/2024 1 0 Reason Comments Medication Authorization PA for Amitiza Reason Comments Abdominal Pain Pt reports abdomina l pain, left arm pain and chest pain ongoing for several hours. Pt states pain is 9/10. Pt seen in ED several times for same complaint and states followed up with cardiology and they said to come in if it gets worse Reason Comments Electronic Communication Reason Comments Back Pain Per pt, I have bulg ing discs in my back and I can't handle the pain. It feels numb to my feet. Pt complains 10/10 back pain. Pt took tylenol around 11am Reason Comments Chronic Pain Reason Comments Pain Right shoulder and r ib pain starting this morning. Tingling in right fingers. Nki. Denies neck pain. Nauseated. States she thinks she had a fever last night but did not check. Rosina Alamo, LIVESTOCK BUYER-CENTERPUNCHER - 09/17/2020 4:49 PM Deepthi Romero RN - 09/17/2020 4:20 PM Charis Haley RN - 05/20/2020 9:35 PM Dexter Martinez MD - 05/20/2020 7:47 PM EDT ED Notes (unrecognized secti on and content) Emergency Department Report [facility] EMERGENCY DEPARTMENT Service Date:.09/17/20 PCP: Kayley Dobson Chief Complaint: Chief Complaint Patient presents with Back Pain HPI Becki Jackson is a 30 y.o. female who presents to ED for evaluation of low back pain. She walked outside to smoke 3 days ago, when she went to reach for cigarette she had a sudden pulling sensation in the left lower back. She had since had persistent pain which radiates both down the left leg and into the left arm. Pain is increased with movement & minimally reduced with Aleve. She denies any fever, chills, recent illness. No bowel or bladder disturbances. No saddle anesthesia. No history of IVDA or previous back surgeries. She denies any possibility of . Review of Systems: Review of Systems 8 systems reviewed with patient, negative unless specifically mentioned in history of present illness Past Medical History: No past medical history on file. Past Surgical History: Past Surgical History: Procedure Laterality Date KNEE SURGERY bilateral knees TONSILLECTOMY ADENOIDECTOMY Allergies: Allergies Allergen Reactions Amoxicillin Contrast Dye [Ivp Dye, Iodine Containing] Penicillins Sulfa Antibiotics Medications: Discharge Medication List as of 09/17/2020 5:09 PM START taking these medications Details cyclobenzaprine 10 MG tablet Take 1 tablet by mouth 3 times daily as needed for Muscle spasms. Normal Disp-15 tablet, R-0 naproxen 500 MG tablet Take 1 tablet by mouth 2 times daily with meals for 10 days. Normal Disp-20 tablet, R-0 predniSONE 20 MG tablet Take 2 tablets by mouth daily for 3 days, THEN 1 tablet daily for 3 days. 40,40,40,20,20,20. Normal Disp-9 tablet, R-0 CONTINUE these medications which have NOT CHANGED Details MV-Min-Fe Fum-FA-DHA ( 1 PO) Take by mouth. Historical Med Family History: No family history on file. Social History: Social History Socioeconomic History Marital status: Spouse name: Not on file Number of children: Not on file Years of education: Not on file Highest education level: Not on file Occupational History Not on file Social Needs Financial resource strain: Not on file Food insecurity Worry: Not on file Inability: Not on file Transportation needs Medical: Not on file Non-medical: Not on file Tobacco Use Smoking status: Current Every Day Smoker Packs/day: 0.25 Types: Cigarettes Smokeless tobacco: Current User Types: Chew Substance and Sexual Activity Alcohol use: Not Currently Drug use: Never Sexual activity: Not on file Lifestyle Physical activity Days per week: Not on file Minutes per session: Not on file Stress: Not on file Relationships Social connections Talks on phone: Not on file Gets together: Not on file Attends zoroastrianism service: Not on file Active member of club or organization: Not on file Attends meetings of clubs or organizations: Not on file Relationship status: Not on file Intimate partner violence Fear of current or ex partner: No Emotionally abused: No Physically abused: No Forced sexual activity: No Other Topics Concern Not on file Social History Narrative Not on file Physical Exam: Physical Exam Vitals signs and nursing note reviewed. Constitutional: General: She is not in acute distress. Appearance: She is not toxic-appearing or diaphoretic. HENT: Head: Normocephalic and atraumatic. Neck: Musculoskeletal: Normal range of motion and neck supple. No muscular tenderness. Thyroid: No thyromegaly. Cardiovascular: Rate and Rhythm: Normal rate and regular rhythm. Pulses: Normal pulses. Heart sounds: Normal heart sounds. No murmur. No friction rub. No gallop. Pulmonary: Effort: Pulmonary effort is normal. No respiratory distress. Breath sounds: Normal breath sounds. No wheezing, rhonchi or rales. Abdominal: General: Bowel sounds are normal. There is no distension. Palpations: Abdomen is soft. Tenderness: There is no abdominal tenderness. There is no right CVA tenderness, left CVA tenderness, guarding or rebound. Musculoskeletal: Normal range of motion. Comments: Low back: No obvious deformity. No appreciable swelling, erythema, or evidence of zoster. There is no thigh tenderness or bony step-offs. There is significant tenderness on palpation of the lower lumbar paraspinal region without appreciable abnormality. Muscle strength 5/5, patellar reflexes 1+ BLE. Positive left SLR. Skin: General: Skin is warm and dry. Capillary Refill: Capillary refill takes less than 2 seconds. Coloration: Skin is not pale. Findings: No bruising, erythema, lesion or rash. Neurological: Mental Status: She is alert and oriented to person, place, and time. Sensory: No sensory deficit. Motor: No weakness or abnormal muscle tone. Coordination: Coordination normal. Psychiatric: Mood and Affect: Mood normal. Behavior: Behavior normal. Vital Signs During ED Visit Patient Vitals for the past 24 hrs: BP Temp Temp src Pulse Resp SpO2 Height Weight 09/17/20 1619 1.651 m (5' 5) 86.2 kg (190 lb) 09/17/20 1616 116/56 97.6 F (36.4 C) Oral 99 100 % 09/17/20 1615 97.6 F (36.4 C) 18 Orders/Results: Results for orders placed or performed during the hospital encounter of 09/17/20 URINALYSIS, MACRO Result Value Ref Range COLOR, URINE YELLOW YELLOW APPEARANCE, URINE CLEAR CLEAR SPECIFIC GRAVITY, URINE 1.020 1.010 - 1.025 PH URINE 8.5 (H) 5.0 - 7.0 PROTEIN, URINE NEGATIVE NEGATIVE mg/dl GLUCOSE, URINE NEGATIVE NEGATIVE mg/dl KETONES, URINE NEGATIVE NEGATIVE mg/dl BILIRUBIN, URINE NEGATIVE NEGATIVE BLOOD, URINE DIPSTICK NEGATIVE NEGATIVE NITRITES, URINE NEGATIVE NEGATIVE UROBILINOGEN, URINE 2.0 (H) 0.2 - 1.0 E.U./dL LEUKOCYTE ESTERASE, URINE TRACE (A) NEGATIVE HCG QUALITATIVE, URINE Result Value Ref Range HCG, QUALITATIVE, URINE NEGATIVE NEGATIVE URINE MICROSCOPIC Result Value Ref Range WBC, URINE 1 TO 5 NEGATIVE /HPF RBC, URINE NEGATIVE NEGATIVE /HPF Epithelial Cells UA 20 TO 30 /HPF Mucus NEGATIVE NEGATIVE BACTERIA, URINE 1+ (A) NEGATIVE CRYSTALS, URINE NONE NONE CASTS, URINE NONE NONE /LPF COMMENT, URINE POSSIBLY CONTAMINATED SPECIMEN, CULTURE MUST BE ORDERED SEPARATELY IF DEEMED NECESSARY. Radiographic Imaging No orders to display Medications Ordered/Given During ED Visit Medications ketorolac (TORADOL) injection 30 mg (30 mg Intramuscular Given 09/17/201715) orphenadrine (NORFLEX) injection 60 mg (60 mg Intramuscular Given 09/17/201715) methylPREDNISolone sodium succinate (SOLU-MEDROL) injection 125 mg (125 mg Intramuscular Given 09/17/201714) Procedures: Procedures ED Summary/MDM Patient presented for evaluation of low back pain which began several days ago, no history of fall or direct trauma. Red flags on history or physical exam & rather presentation appears consistent with acute left-sided low back pain with left- sided sciatica. She was treated with Toradol, Norflex, and Solu-Medrol injections here in ED and is medically stable for discharge and outpatient treatment. She'll be provided short courses of naproxen, Flexeril, and prednisone and instructed on use. Supportive care measures were discussed. She is to follow up with PCP for recheck, return precautions were given. Patient is aware of all findings, agreeable to plan. Stable throughout ED course. Clinical Impression: 1. Acute left-sided low back pain with left-sided sciatica No follow-ups on file. Discharge Medication List as of 09/17/2020 5:09 PM START taking these medications Details cyclobenzaprine 10 MG tablet Take 1 tablet by mouth 3 times daily as needed for Muscle spasms. Normal Disp-15 tablet, R-0 naproxen 500 MG tablet Take 1 tablet by mouth 2 times daily with meals for 10 days. Normal Disp-20 tablet, R-0 predniSONE 20 MG tablet Take 2 tablets by mouth daily for 3 days, THEN 1 tablet daily for 3 days. 40,40,40,20,20,20. Normal Disp-9 tablet, R-0 Discharge Medication List as of 09/17/2020 5:09 PM An After Visit Summary was printed and given to the patient with above information. . . Rosina Alamo APRN-CENTERPUNCHER 09/17/201801 Associated attestation - Robert Ingram DO - 09/17/2020 6:20 PM EST Patient was seen by Rosina Rizo certified nurse practitioner. I was available for consult on an as-needed basis. Pt states went outside to smoke 3 days ago and felt a sharp pain in her low back and at times radiates to L leg. Decreased sensation L leg documented in this encounter Assist with discharge only for this pt. Pt education on activity, ice pack and cover usage, heat usage after first couple of days, OTC medication for pain, S&S of complications to return, handwashing, follow up with PCP in 3-5 days. Pt advised to chicken picker ATB at pharmacy tomorrow ED PROVIDER NOTE [facility] EMERGENCY [facility] NAME: Becki Jackson AGE: 30 y.o. : 1990 VISIT DATE: 05/20/2020 CSN: [id number] PCP: Physician No Chief Complaint Patient presents with Otalgia C/O PAIN AND DRAINAGE FROM RT EAR. WAS ON ATB FOR SAME AND IT HAS RETURNED. ALSO C/O RT SHOULDER PAIN. STATES SHE FELL YESTERDAY CARRYING WOOD AND HIT RT UPPER BACK ON STEEL SHELF. DIFFICULTY LIFTING RT ARM DUE TO PAIN. The back pain at the right shoulder region and the shoulder blade region, where patient also got injected in addition to the right shoulder. History reviewed. No pertinent past medical history. Past Surgical History: Procedure Laterality Date ORTHOPEDIC SURGERY TONSILLECTOMY TUBAL LIGATION History reviewed. No pertinent family history. Social History Socioeconomic History Marital status: Spouse name: Not on file Number of children: Not on file Years of education: Not on file Highest education level: Not on file Occupational History Not on file Social Needs Financial resource strain: Not on file Food insecurity Worry: Not on file Inability: Not on file Transportation needs Medical: Not on file Non-medical: Not on file Tobacco Use Smoking status: Current Every Day Smoker Smokeless tobacco: Current User Types: Chew Substance and Sexual Activity Alcohol use: Never Frequency: Never Drug use: Never Sexual activity: Not on file Lifestyle Physical activity Days per week: Not on file Minutes per session: Not on file Stress: Not on file Relationships Social connections Talks on phone: Not on file Gets together: Not on file Attends zoroastrianism service: Not on file Active member of club or organization: Not on file Attends meetings of clubs or organizations: Not on file Relationship status: Not on file Other Topics Concern Not on file Social History Narrative Not on file No current outpatient medications on file prior to encounter. Allergies Allergen Reactions Amoxil [Amoxicillin] Iodine And Iodide Containing Products Penicillins Sulfa (Sulfonamide Antibiotics) Review of Systems Constitutional: Negative for chills and fever. HENT: Positive for ear pain. Negative for congestion, rhinorrhea and sore throat. Eyes: Negative for pain, discharge, redness and visual disturbance. Respiratory: Negative for cough, shortness of breath and wheezing. Cardiovascular: Negative for chest pain and palpitations. Gastrointestinal: Negative for abdominal distention, abdominal pain, constipation, diarrhea and nausea. Genitourinary: Negative for dysuria, frequency and urgency. Musculoskeletal: Positive for back pain. Skin: Negative for rash. Neurological: Negative for headaches. Patient Vitals for the past 24 hrs: BP Temp Temp src Pulse Resp SpO2 05/20/20 1931 98.9 F (37.2 C) Infrared 05/20/20 1912 110/72 94 16 97 % Physical Exam Constitutional: General: She is not in acute distress. HENT: Head: Normocephalic and atraumatic. Ears: Comments: Right eardrum some pus, previously perforated. And erythematous around the region. Left the eardrum mildly erythema also Nose: Nose normal. Mouth/Throat: Mouth: Mucous membranes are moist. Eyes: Extraocular Movements: Extraocular movements intact. Conjunctiva/sclera: Conjunctivae normal. Pupils: Pupils are equal, round, and reactive to light. Neck: Musculoskeletal: Normal range of motion and neck supple. No neck rigidity or muscular tenderness. Cardiovascular: Rate and Rhythm: Normal rate and regular rhythm. Heart sounds: Normal heart sounds. No murmur. Pulmonary: Effort: Pulmonary effort is normal. No respiratory distress. Breath sounds: Normal breath sounds. No wheezing or rales. Abdominal: General: Abdomen is flat. Bowel sounds are normal. Palpations: Abdomen is soft. Tenderness: There is no abdominal tenderness. There is no guarding or rebound. Musculoskeletal: Normal range of motion. General: No deformity. Comments: Right shoulder blade: Mild to moderate tenderness, no open skin lesions mild erythema, minimal swelling. Right shoulder: Mild tenderness and top of the shoulder, range of motion within normal limit, strength 5 out of 5 with some pain. Neurovascular intact, no open skin lesions. Lymphadenopathy: Cervical: No cervical adenopathy. Skin: General: Skin is warm and dry. Capillary Refill: Capillary refill takes less than 2 seconds. Findings: No rash. Neurological: General: No focal deficit present. Mental Status: She is alert and oriented to person, place, and time. Cranial Nerves: No cranial nerve deficit. Laboratory & Radiographic Imaging (if done): No results found for this visit on 05/20/20. XR Shoulder Right 2+ Views (Standard) Final Result Normal exam. Workstation ID: [id number] XR Chest AP/PA and LAT Final Result Normal chest. Workstation ID: [id number] Procedures MDM Number of Diagnoses or Management Options Diagnosis management comments: X-ray of shoulder and chest x-ray no acute disease. Patient most likely had a contusion and sprain of the right shoulder and acute otitis media. Will treat with antibiotics follow-up with PCP. . . Clinical Impression: 1. Non-recurrent acute suppurative otitis media of right ear with spontaneous rupture of tympanic membrane 2. Sprain of right shoulder, unspecified shoulder sprain type, initial encounter ED Disposition None Follow-up Information 1. [facility] - Primary Care Services. Why: in 3-4 days [address] [facility] [address] Contact information for after-discharge care Follow-up information has not been specified. New Prescriptions levoFLOXacin (LEVAQUIN) 500 MG tablet Take 1 (one) tablet (500 mg total) by mouth daily for 7 days . Dexter Mcgee MD 05/20/202128 C/O PAIN AND DRAINAGE FROM RT EAR. WAS ON ATB FOR SAME AND IT HAS RETURNED. ALSO C/O RT SHOULDER PAIN. STATES SHE FELL YESTERDAY CARRYING WOOD AND HIT RT UPPER BACK ON STEEL SHELF. DIFFICULTY LIFTING RT ARM DUE TO PAIN. PT AND THIS RN WITH SURGICAL MASK. documented in this encounter Goals (unrecognized section and content) No data available for this section No data available for this section No data available for this section No data available for this sectionGoals may be documented in an alternate section No data available for this sectionGoals may be documented in an alternate sectionGoals may be documented in an alternate sectionGoals may be documented in an alternate sectionGoals may be documented in an alternate sectionGoals may be documented in an alternate sectionGoals may be documented in an alternate sectionGoals may be documented in an alternate section No data available for this sectionGoals may be documented in an alternate section No data available for this sectionGoals may be documented in an alternate section No data available for this section No data available for this sectionGoals may be documented in an alternate sectionGoals may be documented in an alternate sectionGoals may be documented in an alternate section INFORMATION SOURCE (unrecogn ized section and content) DATE CREATED AUTHOR 08/31/2021 [employer] DATE CREATED AUTHOR AUTHOR'S ORGANIZ ATION 07/26/2022 [facility] DATE CREATED AUTHOR AUTHOR'S ORGANIZ ATION 11/17/2023 [facility] ([place]) DATE CREATED AUTHOR AUTHOR'S ORGANIZ ATION 11/24/2023 [facility] DATE CREATED AUTHOR AUTHOR'S ORGANIZ ATION 12/11/2023 [facility] DATE CREATED AUTHOR AUTHOR'S ORGANIZ ATION 02/17/2024 [facility] DATE CREATED AUTHOR AUTHOR'S ORGANIZ ATION 02/19/2024 [facility] DATE CREATED AUTHOR AUTHOR'S ORGANIZ ATION 08/30/2024 [facility] DATE CREATED AUTHOR AUTHOR'S ORGANIZ ATION 09/12/2024 [facility] DATE CREATED AUTHOR AUTHOR'S ORGANIZ ATION 10/11/2024 [facility] DATE CREATED AUTHOR AUTHOR'S ORGANIZ ATION 02/10/2025 [facility] DATE CREATED AUTHOR AUTHOR'S ORGANIZ ATION 02/11/2025 [facility] DATE CREATED AUTHOR AUTHOR'S ORGANIZ ATION 05/12/2025 [facility] DATE CREATED AUTHOR AUTHOR'S ORGANIZ ATION 05/31/2025 [facility] DATE CREATED AUTHOR AUTHOR'S ORGANIZ ATION 06/10/2025 [facility] Care Team (unrecognized sect ion and content) Cement Block Maker Relationship Specialty Start Date End Date Fortino Stapleton Jabier PCP - General Family Medicine 11/12/11 Cement Block Maker Relationship Specialty Start Date End Date Fortino Stapleton Jabier PCP - General Family Medicine 11/12/11 Cement Block Maker Relationship Specialty Start Date End Date Fortino Stapleton Jabier PCP - General Family Medicine 11/12/11 Cement Block Maker Relationship Specialty Start Date End Date Fortino Stapleton P PCP - General Family Medicine 11/12/11 Cement Block Maker Relationship Specialty Start Date End Date Fortino Stapleton P PCP - General Family Medicine 11/12/11 Team Status: Active Member Role Status Dates Dr. Kayley Dobson , DO Family Provider Active Dr. Kayley Dobson , DO Primary Care Provider Activ e Team Status: Inactive Member Role Status Dates Dr. Kayley Dobson , DO Primary Care Provider, Refe rring Provider Active Dr. lAhaji Loving , DO Attending Provider Active Team Status: Inactive Member Role Status Dates Dr. Kayley Dobson , DO Primary Care Provider, Refe rring Provider Active Dr. Alex Linn MD Attending Provider Active Team Status: Active Member Role Status Dates Dr. Kayley Dobson , DO Primary Care Provider Activ e Dr. Alex Linn MD Attending Provider, Referring Pro vider Active Team Status: Inactive Member Role Status Dates Dr. Kayley Dobson , DO Primary Care Provider Activ e Dr. Edilson Michael , DO Emergency Provider Active Cement Block Maker Relationship Specialty Start Date End Date Fortino schumacher P PCP - General Family Medicine 11/12/11 Cement Block Maker Relationship Specialty Start Date End Date Treva schumacherew P PCP - General Family Medicine 11/12/11 Cement Block Maker Relationship Specialty Start Date End Date Treva schumacherew P PCP - General Family Medicine 11/12/11 Cement Block Maker Relationship Specialty Start Date End Date WayTreva schumacherew P PCP - General Family Medicine 11/12/11 Cement Block Maker Relationship Specialty Start Date End Date Treva schumacherew P PCP - General Family Medicine 11/12/11 Cement Block Maker Relationship Specialty Start Date End Date WayTreva schumacherew P PCP - General Family Medicine 11/12/11 Cement Block Maker Relationship Specialty Start Date End Date WayTreva schumacherew P PCP - General Family Medicine 11/12/11 Cement Block Maker Relationship Specialty Start Date End Date WayendyFortino P PCP - General Family Medicine 11/12/11 Cement Block Maker Relationship Specialty Start Date End Date Fortino Stapleton P PCP - General Family Medicine 11/12/11 Team Status: Inactive Member Role Status Dates Dr. Kayley Dobson , DO Primary Care Provider Activ e Dr. Domenic Dos Santos MD Emergency Provider Active Cement Block Maker Relationship Specialty Start Date End Date Fortino Stapleton P PCP - General Family Medicine 11/12/11 Cement Block Maker Relationship Specialty Start Date End Date Fortino Stapleton P PCP - General Family Medicine 11/12/11 Cement Block Maker Relationship Specialty Start Date End Date Fortino Stapleton P PCP - General Family Medicine 11/12/11 Cement Block Maker Relationship Specialty Start Date End Date Fortino Stapleton P PCP - General Family Medicine 11/12/11 Cement Block Maker Relationship Specialty Start Date End Date Fortino Stapleton P PCP - General Family Medicine 11/12/11 Cement Block Maker Relationship Specialty Start Date End Date Fortino Stapleton P PCP - General Family Medicine 11/12/11 Cement Block Maker Relationship Specialty Start Date End Date WayFortino schumacher P PCP - General Family Medicine 11/12/11 Team Status: Inactive Member Role Status Dates Dr. Kayley Dobson , DO Primary Care Provider, Refe rring Provider Active Scotty Rodriguez MD Attending Provider Active Team Status: Inactive Member Role Status Dates Dr. Kayley Dobson , DO Primary Care Provider Activ e Dr. Jeffery Araiza , DO Emergency Provider Active Team Status: Inactive Member Role Status Dates Dr. Kayley Dobson , DO Primary Care Provider Activ e Dr. Jeffery Araiza , DO Attending Provider, Emergency P bruce Active Team Status: Inactive Member Role Status Dates Dr. Kayley Dobson , DO Primary Care Provider, Attending Provider, Referring Provider Active Cement Block Maker Relationship Specialty Start Date End Date Fortino Stapleton PCP - General Family Medicine 11/12/11 Cement Block Maker Relationship Specialty Start Date End Date Jessica Dobson RN PCP - General 12/10/23 Cement Block Maker Relationship Specialty Start Date End Date Jessica Dobson RN PCP - General 12/10/23 Cement Block Maker Relationship Specialty Start Date End Date Jessica Dobson RN PCP - General 12/10/23 Cement Block Maker Relationship Specialty Start Date End Date Jessica Dobson RN PCP - General 12/10/23 Cement Block Maker Relationship Specialty Start Date End Date Jessica Dobson RN PCP - General 12/10/23 Team Status: Inactive Member Role Status Dates Dr. Kayley Dobson , DO Primary Care Provider Activ e Dr. 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 Relationship Specialty Start Date End Date Jessica Dobson RN PCP - General 12/10/23 Cement Block Maker Relationship Specialty Start Date End Date Jessica Dobson RN PCP - General 12/10/23 Cement Block Maker Relationship Specialty Start Date End Date Jessica Dobson RN PCP - General 12/10/23 Cement Block Maker Relationship Specialty Start Date End Date Jessica Dobson RN PCP - General 12/10/23 Cement Block Maker Relationship Specialty Start Date End Date Jessica Dobson RN PCP - General 12/10/23 Cement Block Maker Relationship Specialty Start Date End Date Jessica Dobson RN PCP - General 12/10/23 Cement Block Maker Relationship Specialty Start Date End Date Jessica Dobson RN PCP - General 12/10/23 Cement Block Maker Relationship Specialty Start Date End Date Jessica Dobson RN PCP - General 12/10/23 Cement Block Maker Relationship Specialty Start Date End Date Jessica Dobson RN PCP - General 12/10/23 Cement Block Maker Relationship Specialty Start Date End Date Jessica Dobson RN PCP - General 12/10/23 Cement Block Maker Relationship Specialty Start Date End Date María Hernandez MD [address] [place] [address] PCP - General Family Medicine 07/23/24 Cement Block Maker Relationship Specialty Start Date End Date María Hernandez MD [address] [place] [address] PCP - General Family Medicine 07/23/24 Cement Block Maker Relationship Specialty Start Date End Date María Hernandez MD [address] [place] [address] PCP - General Family Medicine 07/23/24 Cement Block Maker Relationship Specialty Start Date End Date María Hernandez MD [address] [place] [address] PCP - General Family Medicine 07/23/24 Cement Block Maker Relationship Specialty Start Date End Date María Hernandez MD [address] [place] [address] PCP - General Family Medicine 07/23/24 Cement Block Maker Relationship Specialty Start Date End Date Jessica Dobson RN PCP - General 12/10/23 Cement Block Maker Relationship Specialty Start Date End Date Jessica Dobson RN PCP - General 12/10/23 Cement Block Maker Relationship Specialty Start Date End Date Jessica Dobson RN PCP - General 12/10/23 Cement Block Maker Relationship Specialty Start Date End Date Jessica Dobson RN PCP - General 12/10/23 Cement Block Maker Relationship Specialty Start Date End Date María Hernandez MD [address] [facility] [address] [place] [address] PCP - General Family Medicine 07/23/24 Cement Block Maker Relationship Specialty Start Date End Date Jessica Dobson RN PCP - General 12/10/23 Cement Block Maker Relationship Specialty Start Date End Date Jessica Dobson RN PCP - General 12/10/23 Cement Block Maker Relationship Specialty Start Date End Date Jessica Dobson RN PCP - General 12/10/23 Cement Block Maker Relationship Specialty Start Date End Date Jessica Dobson RN PCP - General 12/10/23 Cement Block Maker Relationship Specialty Start Date End Date Jessica Dobson RN PCP - General 12/10/23 Cement Block Maker Relationship Specialty Start Date End Date María Hernandez MD PCP - General Family Medicine 07/23/24 Team Status: Active Member Role/Relationship Status Dates Dr. María Hernandez MD Primary Care Provider Active Team Status: Inactive Member Role/Relationship Status Dates Dr. María Hernandez MD Primary Care Provider Active Start: May 03, 2025 End: May 03, 2025 Dr. Edilson Michael DO Emergency Provider Active Start: May 03, 2025 End: May 03, 2025 Cement Block Maker Relationship Specialty Start Date End Date María Hernandez MD PCP - General Family Medicine 07/23/24 Cement Block Maker Relationship Specialty Start Date End Date Jessica Dobson RN PCP - General 12/10/23 <item> Privacy Markings (unrecogniz ed section and content) Section Author: Yumiko Diaz PROHIBITION ON REDISCLOSURE OF CONFIDENTIAL INFORMATION This notice accompanies a disclosure of information concerning a client made to you with the consent of such client. Source Comments (unrecognize d section and content) In the event this informatio n is protected by the Federal Confidentiality of Alcohol and Drug Abuse Patient Records regulations: The Federal rules restrict any use of the information to criminally investigate or prosecute any alcohol or drug abuse patient.[facility] HospitalIn the event this information is protected by the Federal Confidentiality of Alcohol and Drug Abuse Patient Records regulations: The Federal rules restrict any use of the information to criminally investigate or prosecute any alcohol or drug abuse patient.[facility] HospitalIn the event this information is protected by the Federal Confidentiality of Alcohol and Drug Abuse Patient Records regulations: The Federal rules restrict any use of the information to criminally investigate or prosecute any alcohol or drug abuse patient.[facility] HospitalIn the event this information is protected by the Federal Confidentiality of Alcohol and Drug Abuse Patient Records regulations: The Federal rules restrict any use of the information to criminally investigate or prosecute any alcohol or drug abuse patient.[facility] HospitalIn the event this information is protected by the Federal Confidentiality of Alcohol and Drug Abuse Patient Records regulations: The Federal rules restrict any use of the information to criminally investigate or prosecute any alcohol or drug abuse patient.[facility] HospitalIn the event this information is protected by the Federal Confidentiality of Alcohol and Drug Abuse Patient Records regulations: The Federal rules restrict any use of the information to criminally investigate or prosecute any alcohol or drug abuse patient.[facility] HospitalIn the event this information is protected by the Federal Confidentiality of Alcohol and Drug Abuse Patient Records regulations: The Federal rules restrict any use of the information to criminally investigate or prosecute any alcohol or drug abuse patient.[facility] HospitalIn the event this information is protected by the Federal Confidentiality of Alcohol and Drug Abuse Patient Records regulations: The Federal rules restrict any use of the information to criminally investigate or prosecute any alcohol or drug abuse patient.[facility] HospitalIn the event this information is protected by the Federal Confidentiality of Alcohol and Drug Abuse Patient Records regulations: The Federal rules restrict any use of the information to criminally investigate or prosecute any alcohol or drug abuse patient.[facility] HospitalIn the event this information is protected by the Federal Confidentiality of Alcohol and Drug Abuse Patient Records regulations: The Federal rules restrict any use of the information to criminally investigate or prosecute any alcohol or drug abuse patient.[facility] HospitalIn the event this information is protected by the Federal Confidentiality of Alcohol and Drug Abuse Patient Records regulations: The Federal rules restrict any use of the information to criminally investigate or prosecute any alcohol or drug abuse patient.[facility] HospitalIn the event this information is protected by the Federal Confidentiality of Alcohol and Drug Abuse Patient Records regulations: The Federal rules restrict any use of the information to criminally investigate or prosecute any alcohol or drug abuse patient.[facility] HospitalIn the event this information is protected by the Federal Confidentiality of Alcohol and Drug Abuse Patient Records regulations: The Federal rules restrict any use of the information to criminally investigate or prosecute any alcohol or drug abuse patient.[facility] HospitalIn the event this information is protected by the Federal Confidentiality of Alcohol and Drug Abuse Patient Records regulations: The Federal rules restrict any use of the information to criminally investigate or prosecute any alcohol or drug abuse patient.[facility] HospitalIn the event this information is protected by the Federal Confidentiality of Alcohol and Drug Abuse Patient Records regulations: The Federal rules restrict any use of the information to criminally investigate or prosecute any alcohol or drug abuse patient.[facility] HospitalIn the event this information is protected by the Federal Confidentiality of Alcohol and Drug Abuse Patient Records regulations: The Federal rules restrict any use of the information to criminally investigate or prosecute any alcohol or drug abuse patient.[facility] HospitalIn the event this information is protected by the Federal Confidentiality of Alcohol and Drug Abuse Patient Records regulations: The Federal rules restrict any use of the information to criminally investigate or prosecute any alcohol or drug abuse patient.[facility] HospitalIn the event this information is protected by the Federal Confidentiality of Alcohol and Drug Abuse Patient Records regulations: The Federal rules restrict any use of the information to criminally investigate or prosecute any alcohol or drug abuse patient.[facility] HospitalIn the event this information is protected by the Federal Confidentiality of Alcohol and Drug Abuse Patient Records regulations: The Federal rules restrict any use of the information to criminally investigate or prosecute any alcohol or drug abuse patient.[facility] HospitalIn the event this information is protected by the Federal Confidentiality of Alcohol and Drug Abuse Patient Records regulations: The Federal rules restrict any use of the information to criminally investigate or prosecute any alcohol or drug abuse patient.[facility] HospitalIn the event this information is protected by the Federal Confidentiality of Alcohol and Drug Abuse Patient Records regulations: The Federal rules restrict any use of the information to criminally investigate or prosecute any alcohol or drug abuse patient.[facility] HospitalIn the event this information is protected by the Federal Confidentiality of Alcohol and Drug Abuse Patient Records regulations: The Federal rules restrict any use of the information to criminally investigate or prosecute any alcohol or drug abuse patient.[facility] HospitalIn the event this information is protected by the Federal Confidentiality of Alcohol and Drug Abuse Patient Records regulations: The Federal rules restrict any use of the information to criminally investigate or prosecute any alcohol or drug abuse patient.[facility] HospitalIn the event this information is protected by the Federal Confidentiality of Alcohol and Drug Abuse Patient Records regulations: The Federal rules restrict any use of the information to criminally investigate or prosecute any alcohol or drug abuse patient.[facility] HospitalIn the event this information is protected by the Federal Confidentiality of Alcohol and Drug Abuse Patient Records regulations: The Federal rules restrict any use of the information to criminally investigate or prosecute any alcohol or drug abuse patient.[facility] HospitalIn the event this information is protected by the Federal Confidentiality of Alcohol and Drug Abuse Patient Records regulations: The Federal rules restrict any use of the information to criminally investigate or prosecute any alcohol or drug abuse patient.[facility] HospitalIn the event this information is protected by the Federal Confidentiality of Alcohol and Drug Abuse Patient Records regulations: The Federal rules restrict any use of the information to criminally investigate or prosecute any alcohol or drug abuse patient.[facility] HospitalIn the event this information is protected by the Federal Confidentiality of Alcohol and Drug Abuse Patient Records regulations: The Federal rules restrict any use of the information to criminally investigate or prosecute any alcohol or drug abuse patient.[facility] HospitalIn the event this information is protected by the Federal Confidentiality of Alcohol and Drug Abuse Patient Records regulations: The Federal rules restrict any use of the information to criminally investigate or prosecute any alcohol or drug abuse patient.[facility] HospitalIn the event this information is protected by the Federal Confidentiality of Alcohol and Drug Abuse Patient Records regulations: The Federal rules restrict any use of the information to criminally investigate or prosecute any alcohol or drug abuse patient.[facility] HospitalIn the event this information is protected by the Federal Confidentiality of Alcohol and Drug Abuse Patient Records regulations: The Federal rules restrict any use of the information to criminally investigate or prosecute any alcohol or drug abuse patient.[facility] HospitalIn the event this information is protected by the Federal Confidentiality of Alcohol and Drug Abuse Patient Records regulations: The Federal rules restrict any use of the information to criminally investigate or prosecute any alcohol or drug abuse patient.[facility] HospitalIn the event this information is protected by the Federal Confidentiality of Alcohol and Drug Abuse Patient Records regulations: The Federal rules restrict any use of the information to criminally investigate or prosecute any alcohol or drug abuse patient.[facility] HospitalIn the event this information is protected by the Federal Confidentiality of Alcohol and Drug Abuse Patient Records regulations: The Federal rules restrict any use of the information to criminally investigate or prosecute any alcohol or drug abuse patient.[facility] HospitalIn the event this information is protected by the Federal Confidentiality of Alcohol and Drug Abuse Patient Records regulations: The Federal rules restrict any use of the information to criminally investigate or prosecute any alcohol or drug abuse patient.[facility] HospitalIn the event this information is protected by the Federal Confidentiality of Alcohol and Drug Abuse Patient Records regulations: The Federal rules restrict any use of the information to criminally investigate or prosecute any alcohol or drug abuse patient.[facility] HospitalIn the event this information is protected by the Federal Confidentiality of Alcohol and Drug Abuse Patient Records regulations: The Federal rules restrict any use of the information to criminally investigate or prosecute any alcohol or drug abuse patient.[facility] HospitalIn the event this information is protected by the Federal Confidentiality of Alcohol and Drug Abuse Patient Records regulations: The Federal rules restrict any use of the information to criminally investigate or prosecute any alcohol or drug abuse patient.[facility] HospitalIn the event this information is protected by the Federal Confidentiality of Alcohol and Drug Abuse Patient Records regulations: The Federal rules restrict any use of the information to criminally investigate or prosecute any alcohol or drug abuse patient.[facility] HospitalIn the event this information is protected by the Federal Confidentiality of Alcohol and Drug Abuse Patient Records regulations: The Federal rules restrict any use of the information to criminally investigate or prosecute any alcohol or drug abuse patient.[facility] HospitalIn the event this information is protected by the Federal Confidentiality of Alcohol and Drug Abuse Patient Records regulations: The Federal rules restrict any use of the information to criminally investigate or prosecute any alcohol or drug abuse patient.[facility] HospitalIn the event this information is protected by the Federal Confidentiality of Alcohol and Drug Abuse Patient Records regulations: The Federal rules restrict any use of the information to criminally investigate or prosecute any alcohol or drug abuse patient.[facility] HospitalIn the event this information is protected by the Federal Confidentiality of Alcohol and Drug Abuse Patient Records regulations: The Federal rules restrict any use of the information to criminally investigate or prosecute any alcohol or drug abuse patient.[facility] HospitalIn the event this information is protected by the Federal Confidentiality of Alcohol and Drug Abuse Patient Records regulations: The Federal rules restrict any use of the information to criminally investigate or prosecute any alcohol or drug abuse patient.[facility] HospitalIn the event this information is protected by the Federal Confidentiality of Alcohol and Drug Abuse Patient Records regulations: The Federal rules restrict any use of the information to criminally investigate or prosecute any alcohol or drug abuse patient.[facility] HospitalIn the event this information is protected by the Federal Confidentiality of Alcohol and Drug Abuse Patient Records regulations: The Federal rules restrict any use of the information to criminally investigate or prosecute any alcohol or drug abuse patient.[facility] HospitalIn the event this information is protected by the Federal Confidentiality of Alcohol and Drug Abuse Patient Records regulations: The Federal rules restrict any use of the information to criminally investigate or prosecute any alcohol or drug abuse patient.[facility] HospitalIn the event this information is protected by the Federal Confidentiality of Alcohol and Drug Abuse Patient Records regulations: The Federal rules restrict any use of the information to criminally investigate or prosecute any alcohol or drug abuse patient.[facility] HospitalIn the event this information is protected by the Federal Confidentiality of Alcohol and Drug Abuse Patient Records regulations: The Federal rules restrict any use of the information to criminally investigate or prosecute any alcohol or drug abuse patient.[facility] HospitalIn the event this information is protected by the Federal Confidentiality of Alcohol and Drug Abuse Patient Records regulations: The Federal rules restrict any use of the information to criminally investigate or prosecute any alcohol or drug abuse patient.[facility] HospitalIn the event this information is protected by the Federal Confidentiality of Alcohol and Drug Abuse Patient Records regulations: The Federal rules restrict any use of the information to criminally investigate or prosecute any alcohol or drug abuse patient.[facility] HospitalIn the event this information is protected by the Federal Confidentiality of Alcohol and Drug Abuse Patient Records regulations: The Federal rules restrict any use of the information to criminally investigate or prosecute any alcohol or drug abuse patient.[facility] HospitalIn the event this information is protected by the Federal Confidentiality of Alcohol and Drug Abuse Patient Records regulations: The Federal rules restrict any use of the information to criminally investigate or prosecute any alcohol or drug abuse patient.[facility] HospitalIn the event this information is protected by the Federal Confidentiality of Alcohol and Drug Abuse Patient Records regulations: The Federal rules restrict any use of the information to criminally investigate or prosecute any alcohol or drug abuse patient.[facility] HospitalIn the event this information is protected by the Federal Confidentiality of Alcohol and Drug Abuse Patient Records regulations: The Federal rules restrict any use of the information to criminally investigate or prosecute any alcohol or drug abuse patient.[facility] HospitalIn the event this information is protected by the Federal Confidentiality of Alcohol and Drug Abuse Patient Records regulations: The Federal rules restrict any use of the information to criminally investigate or prosecute any alcohol or drug abuse patient.[facility] HospitalIn the event this information is protected by the Federal Confidentiality of Alcohol and Drug Abuse Patient Records regulations: The Federal rules restrict any use of the information to criminally investigate or prosecute any alcohol or drug abuse patient.[facility] HospitalIn the event this information is protected by the Federal Confidentiality of Alcohol and Drug Abuse Patient Records regulations: The Federal rules restrict any use of the information to criminally investigate or prosecute any alcohol or drug abuse patient.[facility] HospitalIn the event this information is protected by the Federal Confidentiality of Alcohol and Drug Abuse Patient Records regulations: The Federal rules restrict any use of the information to criminally investigate or prosecute any alcohol or drug abuse patient.[facility] HospitalIn the event this information is protected by the Federal Confidentiality of Alcohol and Drug Abuse Patient Records regulations: The Federal rules restrict any use of the information to criminally investigate or prosecute any alcohol or drug abuse patient.[facility] HospitalIn the event this information is protected by the Federal Confidentiality of Alcohol and Drug Abuse Patient Records regulations: The Federal rules restrict any use of the information to criminally investigate or prosecute any alcohol or drug abuse patient.[facility] HospitalIn the event this information is protected by the Federal Confidentiality of Alcohol and Drug Abuse Patient Records regulations: The Federal rules restrict any use of the information to criminally investigate or prosecute any alcohol or drug abuse patient.[facility] HospitalIn the event this information is protected by the Federal Confidentiality of Alcohol and Drug Abuse Patient Records regulations: The Federal rules restrict any use of the information to criminally investigate or prosecute any alcohol or drug abuse patient.[facility] HospitalIn the event this information is protected by the Federal Confidentiality of Alcohol and Drug Abuse Patient Records regulations: The Federal rules restrict any use of the information to criminally investigate or prosecute any alcohol or drug abuse patient.[facility] HospitalIn the event this information is protected by the Federal Confidentiality of Alcohol and Drug Abuse Patient Records regulations: The Federal rules restrict any use of the information to criminally investigate or prosecute any alcohol or drug abuse patient.[facility] HospitalIn the event this information is protected by the Federal Confidentiality of Alcohol and Drug Abuse Patient Records regulations: The Federal rules restrict any use of the information to criminally investigate or prosecute any alcohol or drug abuse patient.[facility] HospitalIn the event this information is protected by the Federal Confidentiality of Alcohol and Drug Abuse Patient Records regulations: The Federal rules restrict any use of the information to criminally investigate or prosecute any alcohol or drug abuse patient.[facility] Scheduled Active and Recently Administ ered Medications (unrecognized section and content) Medication Order 02/13/2024 02/14/2024 02/15/2024 ketorolac (Toradol) injection 15 mg (COMPLETED) Do not use in patients with advanced renal impairment or those at risk of renal impairment due to volume depletion. If used, consider ordering half the typical dose (or less) in patients who are: Less than 50 kg and/or Greater than 65 years of age and/or Renally impaired with a moderately-elevated serum creatinine , 15 mg, intravenous, Once, 1 dose, On Wed02/15/24 at 2040, STAT 2055 (Given - Provid er: Emily Stapleton RN) morphine injection 4 mg (COMPLETED) 4 mg, intramuscular, Once, 1 dose, On Wed02/15/24 at 2155, STAT 2204 (Given - Provid er: Emily Stapleton RN - Comment: iv, pok per dr avilez) ondansetron ODT (Zofran-ODT) disintegrating tablet 4 mg (COMPLETED) 4 mg, oral, Once, 1 dose, On Wed02/15/24 at 2155, STAT 2204 (Given - Provid er: Emily Stapleton RN) Scheduled Medication Order 04/04/2024 04/05/2024 04/06/2024 dicyclomine (BENTYL) injection 20 mg (COMPLETED) 20 mg, Intramuscular, ONCE, 1 dose, On Wed04/05/24 at 2115 2116 (Given - Provider: Margy Cervantes RN) Ketorolac (TORADOL) injection 15 mg (COMPLETED) 15 mg, Intravenous, ONCE, 1 dose, On Wed04/05/24 at 2045 2132 (Given - Provider: Margy Cervantes RN) Morphine sulfate (PF) injection 4 mg (COMPLETED) 4 mg, Intravenous, ONCE, 1 dose, On Wed04/05/24 at 2330 2319 (Given - Provider: Margy Cervantes RN) Ondansetron 4mg/2ml (ZOFRAN) injection 4 mg (COMPLETED) 4 mg, Intravenous, ONCE, 1 dose, On Wed04/05/24 at 2115 2131 (Given - Provider: Margy Cervantes RN) Sodium chloride 0.9% IV solution 1,000 mL (COMPLETED) 1,000 mL, Intravenous, ONCE, 1 dose, On Wed04/05/24 at 2045 2133 ($$New Bag$$ - Provider : Margy Cervantes RN)9603 (Stopped - Provider: Margy Cervantes RN) Scheduled Medication Order 07/21/2024 07/22/2024 07/23/2024 apixaban (ELIQUIS) tablet 10 mg (COMPLETED) 10 mg, Oral, ONCE, 1 dose, On Wed07/23/24 at 1415, Due to the rapid onset of action of apixaban, no overlap is needed with other anticoagulants (e.g. enoxaparin, heparin). Avoid use while neuraxial catheter in place and do not administer for at least 24 hours after removal of neuraxial catheter., Indications: Venous Thromboembolism 1415 (Given - Provid er: Deepthi Billings RN) Scheduled Medication Order 07/23/2024 07/24/2024 07/25/2024 diphenhydrAMINE (BENADRYL) injection 50 mg (COMPLETED) 50 mg, Intravenous, ONCE, 1 dose, On Wed07/25/24 at 1730 1705 (Given - Provid er: Suzanne Bagley RN) iohexol (OMNIPAQUE) 350 MG/ML injection 75 mL (COMPLETED) 75 mL, Intravenous, ONCE, 1 dose, On Wed07/25/24 at 1745, Extravasation Risk, Radiology Procedure 1724 (Given - Radiol ogy - Provider: Malgorzata Boogie) methylPREDNISolone sodium succinate (SOLU-MEDROL) injection 125 mg (COMPLETED) 125 mg, Intravenous, ONCE, 1 dose, On Wed07/25/24 at 1730 1705 (Given - Provid er: Suzanne Bagley RN) Ondansetron 4mg/2ml (ZOFRAN) injection 4 mg (COMPLETED) 4 mg, Intravenous, ONCE, 1 dose, On Wed07/25/24 at 1730 1704 (Given - Provid er: Suzanne Bagley RN) oxyCODONE-acetaminophen (PERCOCET) 5-325 MG per tablet 1 tablet (COMPLETED) 1 tablet, Oral, ONCE, 1 dose, On Wed07/25/24 at 1915 1847 (Given - Provid er: Suzanne Bagley RN) Sodium chloride 0.9% IV solution 75 mL (COMPLETED) 75 mL, Intravenous, ONCE, 1 dose, On Wed07/25/24 at 1745, Radiology Procedure 1724 ($$New Bag$$ - Provider: Malgorzata Boogie)1751 (Stopped - Provider: Suzanne Bagley RN) Scheduled Medication Order 07/27/2024 07/28/2024 07/29/2024 Clindamycin (CLEOCIN) capsule 300 mg (COMPLETED) 300 mg, Oral, ONCE, 1 dose, On 07/29/24 at 1815 1806 (Given - Provid er: Marc Osorio RN) naproxen (NAPROSYN) tablet 500 mg (COMPLETED) 500 mg, Oral, ONCE, 1 dose, On 07/29/24 at 1815 1806 (Given - Provid er: Marc Osorio RN) Scheduled Medication Order 07/30/2024 07/31/2024 08/01/2024 diphenhydrAMINE (BENADRYL) injection 50 mg (COMPLETED) 50 mg, Intravenous, ONCE, 1 dose, On 08/01/24 at 2014 1950 (Given - Provid er: Ai Stein RN) iohexol (OMNIPAQUE) 350 MG/ML injection 75 mL (COMPLETED) 75 mL, Intravenous, ONCE, 1 dose, On 08/01/24 at 2030, Extravasation Risk, Radiology Procedure 1956 (Given - Radiol ogy - Provider: Kitty Stephens) methylPREDNISolone sodium succinate (SOLU-MEDROL) injection 125 mg (COMPLETED) 125 mg, Intravenous, ONCE, 1 dose, On 08/01/24 at 2014 194 (Given - Provid er: Ai Stein RN) Morphine sulfate (PF) injection 4 mg (COMPLETED) 4 mg, Intravenous, ONCE, 1 dose, On 08/01/24 at 2099 2024 (Given - Provid er: Raisa Mendes RN) Ondansetron 4mg/2ml (ZOFRAN) injection 4 mg (COMPLETED) 4 mg, Intravenous, ONCE, 1 dose, On 08/01/24 at 2099 2024 (Given - Provid er: Raisa Mendes RN) Sodium chloride 0.9% IV solution 75 mL (COMPLETED) 75 mL, Intravenous, ONCE, 1 dose, On 08/01/24 at 2030, Radiology Procedure 1956 ($$New Bag$$ - Provider: Kitty Stephens)2004 (Stopped - Provider: Ai Stein RN) Scheduled Medication Order 08/02/2024 08/03/2024 08/04/2024 apixaban (ELIQUIS) tablet 5 mg 5 mg, Oral, EVERY 12 HOURS, First dose on Ruth 08/03/24 at 2100, Until Discontinued, Due to the rapid onset of action of apixaban, no overlap is needed with other anticoagulants (e.g. enoxaparin, heparin)., Indications: Venous Thromboembolism 2201 (Given - Provider: Micaela Sebastian, AMARILIS) 0854 (Given - Provider: Mery Patterson RN) busPIRone (BUSPAR) tablet 5 mg 5 mg, Oral, 3 TIMES DAILY, First dose on Ruth 08/03/24 at 1530, Until Discontinued 1542 (Given - Provider: Mery Patterson RN)2201 (Given - Provider: Micaela Sebastian RN) 0853 (Given - Provider: Mery Patterson RN) cefTRIAXone (ROCEPHIN) 2 g in sodium chloride 0.9% (MB PLUS) 50 mL (total volume) IVPB (COMPLETED) 2 g, Intravenous, Administer over 30 Minutes, ONCE, 1 dose, On Wed08/02/24 at 2100 2048 ($$New Bag$$ - Provider: Fannie Soliz RN)211 (Stopped - Provider: Fannie Soliz RN) dicyclomine (BENTYL) injection 20 mg (COMPLETED) 20 mg, Intramuscular, ONCE, 1 dose, On Wed08/02/24 at 1815, IM USE ONLY ! 1907 (Given - Provider: Fannie Soliz, AMARILIS) diphenhydrAMINE (BENADRYL) injection 25 mg (COMPLETED) 25 mg, Intravenous, ONCE, 1 dose, On Wed08/02/24 at 2045 2049 (Given - Provider: Fannie Soliz RN) Gabapentin (NEURONTIN) capsule 300 mg 300 mg, Oral, 3 TIMES DAILY, First dose on Ruth 08/03/24 at 1530, Until Discontinued 1542 (Given - Provider: Mery Patterson RN)2201 (Given - Provider: Micaela Sebastian, AMARILIS) 0853 (Given - Provider: Mery Patterson RN) Metoclopramide (REGLAN) injection 10 mg 10 mg, Intravenous, 3 TIMES DAILY BEFORE MEALS, First dose on Ruth 08/03/24 at 1600, Until Discontinued, If given via IV route: administer slowly over 2 minutes. 1547 (Given - Provider: Mery Patterson RN) 0853 (Given - Provider: Mery Patterson RN)1100 (Canceled Entry - Provider: System Discharge - Comment: Automatically canceled at discontinue of medication order) Metoclopramide (REGLAN) injection 5 mg (COMPLETED) 5 mg, Intravenous, ONCE, 1 dose, On Wed08/02/24 at 2114 2048 (Given - Provider: Fannie Soliz RN) Ondansetron 4mg/2ml (ZOFRAN) injection 4 mg (COMPLETED) 4 mg, Intravenous, ONCE, 1 dose, On Wed08/02/24 at 2114 2048 (Given - Provider: Fannie Soliz, AMARILIS) Pantoprazole (PROTONIX) injection 40 mg (COMPLETED) 40 mg, Intravenous, ONCE, 1 dose, On Wed08/02/24 at 2114, Dilute each 40 mg vial with 10 mL of NS. All bolus doses, whether 40 mg or 80 mg, should be administered over at least two minutes., Indications: Inpt Stress Ulcer Prophylaxis 2047 (Given - Provider: Fannie Soliz RN) Pantoprazole (PROTONIX) tablet DR 40 mg 40 mg, Oral, DAILY, First dose on Wed08/03/24 at 0900, Until Discontinued, Swallow whole; do not crush or chew., Indications: Inpt Stress Ulcer Prophylaxis 08 (Given - Provider: Mery Patterson RN) 0854 (Given - Provider: Mery Patterson RN) Polyethylene glycol (MIRALAX) packet 17 g 17 g, Oral, DAILY, First dose on Wed08/04/24 at 0900, Until Discontinued 0854 (Not Given - Provider: Mery Patterson RN - Reason: Patient/family refused - Comment: she states this does not work for her) senna-docusate (SENOKOT-S) 8.6-50 MG per tablet 2 tablet 2 tablet, Oral, 2 TIMES DAILY, First dose on Wed08/03/24 at 1300, Until Discontinued 1332 (Given - Provider: Mery Patterson RN) 0854 (Given - Provider: Mery Patterson RN) traZODone (DESYREL) tablet 50 mg 50 mg, Oral, DAILY AT BEDTIME, First dose on Wed08/03/24 at 2100, Until Discontinued 220 (Given - Provider: Micaela Sebastian RN) PRN Medication Order 08/02/2024 08/03/2024 08/04/2024 Acetaminophen (TYLENOL) tablet 650 mg 650 mg, Oral, EVERY 4 HOURS NEEDED, Starting on Wed08/02/24 at 2128, Until Wed08/04/24 at 1217, Mild Pain, Oral temp > 100.4 F 0946 (Given - Provider: Odalys Zhu RN) alum/mag hydrox.-simethicone oral suspension 30 mL 30 mL, Oral, EVERY 6 HOURS NEEDED, Starting on Wed08/02/24 at 2128, Until Wed08/04/24 at 1217, Indigestion, Gas, Per 5 mL is equivalent to: (Alum-Mag Hydroxide 200-225 mg and Simethicone 20 mg) and (Alum-Mag Hydroxide 200-200 mg and Simethicone 20 mg) Cyclobenzaprine (FLEXERIL) tablet 10 mg 10 mg, Oral, 3 TIMES DAILY NEEDED, Starting on Wed08/03/24 at 1513, Until Wed08/04/24 at 1217, Muscle spasms HYDROmorphone (DILAUDID) injection 0.5 mg 0.5 mg, Intravenous, EVERY 3 HOURS NEEDED, Starting on Wed08/02/24 at 2138, Until Wed08/04/24 at 1217, Severe Pain 2150 (Given - Provider: Annabel Amaya RN) 0226 (Given - Provider: Annabel Amaya RN)0548 (Given - Provider: Annabel Amaya RN)0828 (Given - Provider: Mery Patterson RN)1143 (Given - Provider: Mery Patterson RN)1543 (Given - Provider: Mery Patterson RN)1845 (Given - Provider: Mery Patterson RN)2206 (Given - Provider: Micaela Sebastian RN) 0243 (Given - Provider: Micaela Sebastian RN)0550 (Given - Provider: Micaela Sebastian, AMARILIS) Ondansetron 4mg/2ml (ZOFRAN) injection 4 mg 4 mg, Intravenous, EVERY 4 HOURS NEEDED, Starting on Wed08/02/24 at 8, Until Wed08/04/24 at 1217, Nausea / Vomiting 0227 (Given - Provider: Annabel Amaya RN) Scheduled Medication Order 08/20/2024 08/21/2024 08/22/2024 acetaminophen (TYLENOL) tablet 1,000 mg (COMPLETED) 1,000 mg, Oral, ONCE, 1 dose, On Wed08/22/24 at 2245 2233 (Given - Provid er: Araseli Roque RN) GI cocktail: alum/mag hydrox-simethicone(30ml)+lidocai ne 2%(10ml) oral suspension 40 mL (COMPLETED) 40 mL, Oral, ONCE, 1 dose, On Wed08/22/24 at 2245 2234 (Given - Provid er: Araseli Roque RN) Scheduled Medication Order 04/20/2025 04/21/2025 04/22/2025 Cyclobenzaprine (FLEXERIL) tablet 10 mg (COMPLETED) 10 mg, Oral, ONCE, 1 dose, On 04/22/25 at 1715 1648 (Given - Provid er: Mely Trinidad RN) Ketorolac (TORADOL) injection 30 mg (COMPLETED) 30 mg, Intramuscular, ONCE, 1 dose, On 04/22/25 at 1645 1648 (Given - Provid er: Mely Trinidad RN) Scheduled Medication Order 05/26/2025 05/27/2025 05/28/2025 dexAMETHasone (DECADRON) injection 20 mg (COMPLETED) 20 mg, Intravenous, ONCE, 1 dose, On 05/27/25 at 1999 1942 (Given - Provider: Rosa Odom RN) diphenhydrAMINE (BENADRYL) injection 25 mg (COMPLETED) 25 mg, Intravenous, ONCE, 1 dose, On 05/27/25 at 1999 1942 (Given - Provider: Rosa Odom RN) Gabapentin (NEURONTIN) capsule 800 mg 800 mg, Oral, 3 TIMES DAILY, First dose on Wed05/28/25 at 0900, Until Discontinued Gabapentin (NEURONTIN) capsule 800 mg (COMPLETED) 800 mg, Oral, ONCE, 1 dose, On Wed05/28/25 at 0115 0102 (Given - Provid er: Emmanuelle Fabian RN) HYDROmorphone (DILAUDID) injection 0.5 mg (COMPLETED) 0.5 mg, Intravenous, ONCE, 1 dose, On 05/27/25 at 1999 1943 (Given - Provider: Rosa Odom RN) iohexol (OMNIPAQUE) 350 MG/ML injection 75 mL (COMPLETED) 75 mL, Intravenous, ONCE, 1 dose, On 05/27/25 at 2115, Extravasation Risk, Radiology Procedure 2132 (Given - Radiology - Provider: Clyde Castillo) Ondansetron 4mg/2ml (ZOFRAN) injection 4 mg (COMPLETED) 4 mg, Intravenous, ONCE, 1 dose, On 05/27/25 at 1930 1943 (Given - Provider: Rosa Odom RN) Sodium chloride 0.9% IV solution 75 mL (COMPLETED) 75 mL, Intravenous, ONCE, 1 dose, On Wed05/27/25 at 2114, Radiology Procedure 2132 ($$New Bag$$ - Provider: Clyde Castillo)2206 (Stopped - Provider: Emmanuelle Fabian RN) FOR RECORDS PERTAINING TO PATIENTS WHO ARE OR HAVE BEEN ENROLLED IN A CHEMICAL DEPENDENCY/SUBSTANCEABUSE PROGRAM, SOME INFORMATION MAY BE OMITTED. This clinical summary was aggregated from multiple sources. Caution should be exercised in using it in the provision of clinical care. This summary normalizes information from multiple sources, and as a consequence, information in this document may materially change the coding, format and clinical context of patient data. In addition, data may be omitted in some cases. CLINICAL DECISIONS SHOULD BE BASED ON THE PRIMARY CLINICAL RECORDS. [facility] [employer] [facility]. provides no warranty or guarantee of the accuracy or completeness of information in this document.
[2025-06-16 14:09] LABS: Squamous Epithelial Cells - UA 0-5 SEEN /hpf (5-10)
[2025-06-16 14:24] LABS: Internal QC Validated? YES +Cl - CLEAR BKGD; Pregnancy, Serum, hCG Quali. NEGATIVE Negative
[2025-06-16 14:25] LABS: Record Kit Lot#, Serum Preg. 964736
[2025-06-16 14:46] LABS: AST(SGOT) 16 U/L (<=31); Alanine Aminotransfer ALT/SGPT 9 U/L (<=34); Albumin, Serum 3.8 g/dL (3.5-5.0); Alkaline Phosphatase 104 U/L (35-104); Anion Gap 11 (5-15); BUN 12 mg/dL (4-19); BUN/Creat Ratio 16.0 RATIO (10-20); Calcium,Total 9.3 mg/dL (7.6-11.0); Carbon Dioxide 23.9 mmol/L (21.0-32.0); Chloride 105 mmol/L (98-108); Estimated Creatinine Clearance 145.40 ml/min (50-250); Globulin 2.7 g/dL (2.2-4.2); Glucose 88 mg/dL (70-99); Lipase 20 U/L (13-75); Potassium 3.9 mmol/L (3.3-5.1)
[2025-06-16 14:58] VITALS: BP 125/78; PULSE 88; RESP 16; O2SAT 100
[2025-06-16 16:00] VITALS: BP 118/57; PULSE 82; O2SAT 100
[2025-06-16] MEDS: Ketorolac 30 MG/ML Syringe IV (16:16)
[2025-06-16 16:17] VITALS: BP 111/63; PULSE 82; RESP 16; TEMP 36.9; O2SAT 100
== END 2025-06-16 16:37 | disposition home or self-care (01) ==
PROVIDERS: Emergency Provider Emergency Medicine; PCP Student in an Organized Health Care Education/Training Program; Visit Provider Emergency Medicine
DX: R10.11 Right upper quadrant pain (principal); Z87.891 Personal history of nicotine dependence; R51.9 Headache, unspecified; K31.84 Gastroparesis; K21.9 Gastro-esophageal reflux disease without esophagitis; J45.909 Unspecified asthma, uncomplicated
CPT/HCPCS: 70450; 74176; 80053; 81001; 83690; 84703; 85025; 96361; 96374; 96375; 96376; 99284; A4216; J2405

== ENCOUNTER → 2025-06-28 | Outpatient (CLI) | payer MEDICAID, SELFPAY ==
[2025-06-28 09:20] LABS: Cholesterol 160 mg/dL (<=200); Low Density Lipoprotein Calc. 103 mg/dL; Triglycerides 105 mg/dL; Very Low Density Lipoprotein 21 mg/dL (5-40); cholesterol:hdl ratio screen 4.46
== END | disposition home or self-care (01) ==
PROVIDERS: PCP Student in an Organized Health Care Education/Training Program; Referring Provider Student in an Organized Health Care Education/Training Program; Visit Provider Student in an Organized Health Care Education/Training Program
DX: Z79.899 Other long term (current) drug therapy (principal)
CPT/HCPCS: 36415; 80061; 83036